=== PATIENT | female | born 1975 | race Caucasian/White ===

== ENCOUNTER 2016-08-23 16:28 | Observation (INO) | payer OTHER ==
[~2016-08-23] VITALS: Ht 172.7 cm; Wt 115.4 kg
[~2016-08-23 16:28] MED LIST: ALBU17AE23; BUDE6HFA IH; CETI10TA17 PO; DCS100C PO; FLUT1DIS26; FRS325T PO; HYDR-3714 PO; IBUP-1773 PO; LABE100T2 PO; LBT200T PO; LEVA15HF2 IH; LEVO5TAB2 PO; LRT10T; LVT.1T PO; MMT17NA NSEACH; MNTL10T; ONDA8TAB6 PO; OXYC500S2 PO; PNT40TEC PO; PREN1TAB39; RIZA10TA23 PO; XOLAIR SQ
[2016-08-23] MEDS ORDERED: NS IV 1000 ML 1,000 ML IV SCH (16:52)
[2016-08-23] MEDS ORDERED: ONDANSETRON 4 MG/2 ML (SDV) Z0FRAN IVP PRN (17:00)
[2016-08-23] MEDS ORDERED: diphenhydrAMINE 50 MG/ML INJ (BENADRYL) IVP PRN (17:00)
[2016-08-23] MEDS ORDERED: PATIENT MAY USE OWN MED,SINGLE MED PO SCH (17:00)
[2016-08-23] MEDS ORDERED: RT-ALBUTEROL SULF 2.5 MG/3 ML PRE-MIX VIAL INH PRN (17:00)
--- OUTSIDE RECORDS SUMMARY | 2016-08-23 17:33 | XMS REPORT | Continuity of Care Document ---
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 If you do not see the information that you expected, contact Release of Information in the Health Information Management department at [phone] for further assistance in locating additional records.[facility] Active Allergies and Adverse Reactions Allergen Noted Date Severity Reactions Comments Aspirin 12/28/2015 Low UNKNOWN Ceftin 12/28/2015 Low UNKNOWN [place] 12/28/2015 Low UNKNOWN Malt Extract 12/28/2015 Low UNKNOWN Morphine 12/28/2015 Low SEE COMMENTS Patient has fast metabolizer and medication is not effective. Soybean 12/28/2015 Low UNKNOWN Wheat 12/28/2015 Low UNKNOWN Zithromax 12/28/2015 Low UNKNOWN Current Medications Prescription Sig. Disp. Refills Start End Date Status Date mometasone (NASONEX) 50 Apply 2 Sprays to each Active mcg/actuation nasal spray nostril as directed daily. levothyroxine (SYNTHROID) Take 100 mcg by mouth Active 100 mcg tablet daily. pseudoephedrine (SUDAFED) Take 60 mg by mouth every Active 60 mg tablet 4 hours as needed for Congestion. Levalbuterol Tartrate Inhale 2 Puffs by mouth Active (XOPENEX HFA) 45 every 4-6 hours as mcg/actuation inhaler needed. pantoprazole DR Take 40 mg by mouth twice Active (PROTONIX) 40 mg tablet daily. montelukast (SINGULAIR) Take 10 mg by mouth at Active 10 mg tablet bedtime daily. Levocetirizine (XYZAL) 5 Take 10 mg by mouth twice Active mg tab daily. ondansetron (ZOFRAN) 8 mg Take 8 mg by mouth every Active tablet 8 hours as needed for Nausea. metFORMIN-XR(+) Take 500 mg by mouth Active (GLUCOPHAGE XR) 500 mg daily with dinner. tablet budesonide/formoterol Inhale 2 Puffs by mouth Active (SYMBICORT) 160/4.5 mcg twice daily. HFAA inhalation rizatriptan (MAXALT) 10 Take 10 mg by mouth daily Active mg tablet as needed. May repeat in 2 hours in needed ibuprofen (MOTRIN) 800 mg Take 800 mg by mouth Active tablet three times daily. sertraline (ZOLOFT) 50 mg Take 50 mg by mouth Active tablet daily. Indications: only take 1/2 a tablet albuterol (VENTOLIN HFA, Inhale 2 Puffs by mouth Active PROAIR HFA) 90 every 6 hours as needed mcg/actuation inhaler for Wheezing. levonorgestrel/ethinyl Take 1 Tab by mouth Active estradiol (AVIANE-28, daily. ALESSE-28) 0.1 mg/20 mcg tablet DIPHENHYDRAMINE HCL Take by mouth as Needed. Active (BENADRYL ALLERGY PO) meloxicam (MOBIC) 15 mg Take 1 Tab by mouth 90 Tab 1 01/08/20 Active tablet daily. 16 Cholecalciferol (Vitamin Take 1 Cap by mouth 90 Cap 1 01/27/20 Active D3) 2,000 unit cap daily. 16 Active Problems No known active problems Social History Tobacco Use Types Packs/Day Years Used Date Never Smoker Smokeless Tobacco: Never Used Alcohol Use Drinks/Week oz/Week Comments No Last Filed Vital Signs Vital Sign Reading Time Taken Blood Pressure 148/85 01/08/2016 8:26 AM CDT Pulse 93 01/08/2016 8:26 AM CDT Temperature 37.3 C (99.2 F) 01/08/2016 8:26 AM CDT Respiratory Rate 18 01/08/2016 8:26 AM CDT Height 1.702 m (5' 7") 01/08/2016 8:26 AM CDT Weight 119.296 kg (263 lb) 01/08/2016 8:26 AM CDT Body Mass Index 41.18 01/08/2016 8:26 AM CDT Oxygen Saturation - - Plan of Care Health Maintenance Due Date Last Done Comments Physical (Comprehensive) 1984 Exam Pertussis Vaccine 1988 Tetanus Vaccine 1994 Cervical Cancer Screening 1998 Influenza Vaccine 03/03/2016 Results from Last 3 Months Not on file
[2016-08-23 17:45] VITALS: BP 152/89
[2016-08-23] MEDS ORDERED: METF1000 PO (18:17)
[2016-08-23] MEDS ORDERED: PANT40TA2 PO (18:17)
[2016-08-23] MEDS ORDERED: MONT10TA21 PO (18:17)
[2016-08-23] MEDS ORDERED: MAGN500T PO (18:17)
[2016-08-23] MEDS ORDERED: CHOL2000 PO (18:17)
[2016-08-23] MEDS ORDERED: SERT50TA2 PO (18:17)
[2016-08-23] MEDS: methylPREDNISolone 125 MG (Solu-MEDROL) VIAL IVP SCH (18:38)
[2016-08-23 19:08] LABS: BASOPHILS % (AUTO) 0 % (0-10); EOSINOPHILS % (AUTO) 0 % (0-10); LYMPHOCYTES # (AUTO) 0.7 X 10^3 (1.0-4.0); LYMPHOCYTES % (AUTO) 6 % (12-44); MEAN CORPUSCULAR HEMOGLOBIN 26 PG (25-34); MEAN CORPUSCULAR HGB CONC 33 G/DL (32-36); MEAN CORPUSCULAR VOLUME 81 FL (80-99); MEAN PLATELET VOLUME 10.1 FL (7.4-10.4); MONOCYTES % (AUTO) 0 % (0-12); NEUTROPHILS # (AUTO) 10.6 X 10^3 (1.8-7.8); NEUTROPHILS % (AUTO) 94 % (42-75); PLATELET COUNT 369 10^3/uL (130-400); RED BLOOD COUNT 5.05 10^6/uL (4.35-5.85); RED CELL DISTRIBUTION WIDTH 16.1 % (10.0-14.5); WHITE BLOOD COUNT 11.3 10^3/uL (4.3-11.0)
[2016-08-23 19:21] LABS: BAND NEUTROPHILS 5 %; BASOPHILS % (MANUAL) 0 %; EOSINOPHILS % (MANUAL) 0 %; LYMPHOCYTES % (MANUAL) 2 %; NEUTROPHILS % (MANUAL) 93 %
[2016-08-23 19:31] LABS: ALANINE AMINOTRANSFERASE 18 U/L (0-55); ALBUMIN 4.1 G/DL (3.2-4.5); ANION GAP 10 MMOL/L (5-14); ASPARTATE AMINO TRANSFERASE 14 U/L (5-34); BILIRUBIN,TOTAL 0.2 MG/DL (0.1-1.0); BLOOD UREA NITROGEN 11 MG/DL (7-18); BUN/CREATININE RATIO 15; CALCIUM 9.5 MG/DL (8.5-10.1); CARBON DIOXIDE 21 MMOL/L (21-32); CHLORIDE 107 MMOL/L (98-107); CREATININE SERUM 0.74 MG/DL (0.60-1.30); GFR ESTIMATED > 60; GLUCOSE 149 MG/DL (70-105); MAGNESIUM 2.8 MG/DL (1.8-2.4); POTASSIUM 4.3 MMOL/L (3.6-5.0); SODIUM 138 MMOL/L (135-145); TOTAL PROTEIN 7.4 G/DL (6.4-8.2)
[2016-08-23 19:55] VITALS: BP 162/89
[2016-08-23 20:01] VITALS: BP 162/89
--- NOTE | 2016-08-23 20:08 | History & Physicial (CHS) ---
HPI History of Present Illness: Patient seen in clinic after accidental ingestion of corn tortilla with history of anaphylactic reaction to corn products in the past. About 45 minutes after lunch, started having itching and tingling in mouth and feeling nauseated. She denied shortness of breath or wheezing or swelling or rash at that time. Exam and vitals were unremarkable and she was given 0.3 mg epinephrine IM and 125 mg solumedrol IM (approximately 1:20 pm) and was monitored in clinic with good improvement in symptoms, however about 1 hour after epinephrine and solumedrol, she started to have coughing and felt like she may be wheezing. Exam again revealed no oropharyngeal swelling and no audible wheezing, second dose of 0.3 mg epinephrine IM given and discussed hospitalization at that time, decided to continue clinic monitoring, and as her coughing and slight wheeze began to recur again about an hour after epinephrine, decision was made to admit for further close monitoring. She also started to note some hives around that time. Source: patient Exam Limitations: no limitations Date seen by provider: Aug 23, 2016 Time seen by provider: 16:00 Attending Physician Sagar Lee MD PCP Sagar Lee MD Consult Date of Admission Aug 23, 2016 at 17:26 Home Medications Home Medications Reviewed patient Home Medication Reconciliation Form Allergies Coded Allergies: aspirin (Unverified Allergy, Mild, 07/02/09) azithromycin (Unverified Allergy, Mild, 07/02/09) cefuroxime (Unverified Allergy, Mild, 07/02/09) [place] (Unverified Allergy, 11/22/12) Dextrose (Unverified Allergy, 11/22/12) Uncoded Allergies: POWDER IN GLOVES (Allergy, 11/22/12) VYN-Bnagpm-Cunvwm Hx Patient Social History Marrital Status: Number of Children: 3 Number of living children: 3 Employed/Student: employed Alcohol Use: Denies Use Recreational Drug Use: No Smoking Status: Never a Smoker Recent Foreign Travel: No Contact w/other who traveled: No Recent Hopitalizations: Yes Recent Infectious Disease Expo: No Physical Abuse Screen: No Sexual Abuse: No Immunizations Up To Date Tetanus Booster (TDap): Less than 5yrs Date of Pneumonia Vaccine: Apr 08, 2013 Date of Influenza Vaccine: Mar 09, 2016 Past Medical History PMHx: Asthma ADHD Depression Family Medical History Significant Family History: Asthma, Hypertension Review of Systems ([facility]) Constitutional: No dizziness, No fever EENTM: No mouth swelling, No nose congestion, No throat swelling Respiratory: coughNo short of breath, wheezing Cardiovascular: no symptoms reported Gastrointestinal: nauseaNo vomiting Genitourinary: no symptoms reported Musculoskeletal: no symptoms reported Skin: rash Psychiatric/Neurological: No Symptoms Reported Reviewed Test Results Reviewed Test Results Lab Laboratory Tests Test 08/23/16 19:00 Range/Units Alanine Aminotransferase (ALT/SGPT) 18 0-55 U/L Albumin 4.1 3.2-4.5 G/DL Alkaline Phosphatase 65 40-136 U/L Anion Gap 10 5-14 MMOL/L Aspartate Amino Transf (AST/SGOT) 14 5-34 U/L BUN/Creatinine Ratio 15 Band Neutrophils 5 % Basophils # (Auto) 0.0 0.0-0.1 10^3/uL Basophils % (Manual) 0 % Basophils (%) (Auto) 0 0-10 % Blood Morphology Comment NORMAL Blood Urea Nitrogen 11 7-18 MG/DL Calcium Level 9.5 8.5-10.1 MG/DL Carbon Dioxide Level 21 21-32 MMOL/L Chloride Level 107 98-107 MMOL/L Creatinine 0.74 0.60-1.30 MG/DL Eosinophils # (Auto) 0.0 0.0-0.3 10^3/uL Eosinophils % (Manual) 0 % Eosinophils (%) (Auto) 0 0-10 % Estimat Glomerular Filtration Rate > 60 Glucose Level 149 H 70-105 MG/DL Hematocrit 41 35-52 % Hemoglobin 13.3 11.5-16.0 G/DL Lymphocytes # (Auto) 0.7 L 1.0-4.0 X 10^3 Lymphocytes % (Manual) 2 % Lymphocytes (%) (Auto) 6 L 12-44 % Magnesium Level 2.8 H 1.8-2.4 MG/DL Mean Corpuscular Hemoglobin 26 25-34 PG Mean Corpuscular Hemoglobin Concent 33 32-36 G/DL Mean Corpuscular Volume 81 80-99 FL Mean Platelet Volume 10.1 7.4-10.4 FL Monocytes # (Auto) 0.0 0.0-1.0 X 10^3 Monocytes % (Manual) 0 % Monocytes (%) (Auto) 0 0-12 % Neutrophils # (Auto) 10.6 H 1.8-7.8 X 10^3 Neutrophils % (Manual) 93 % Neutrophils (%) (Auto) 94 H 42-75 % Platelet Count 369 130-400 10^3/uL Potassium Level 4.3 3.6-5.0 MMOL/L Red Blood Count 5.05 4.35-5.85 10^6/uL Red Cell Distribution Width 16.1 H 10.0-14.5 % Sodium Level 138 135-145 MMOL/L Total Bilirubin 0.2 0.1-1.0 MG/DL Total Protein 7.4 6.4-8.2 G/DL White Blood Count 11.3 H 4.3-11.0 10^3/uL Physical Exam-([facility]) Physical Exam Vital Signs VS - Last 72 Hours, by Label 08/23/16 08/23/16 08/23/16 08/23/16 17:20 17:45 19:00 20:01 Temp 96.3 97.5 Pulse 105 108 102 Resp 20 20 B/P 152/89 162/89 Pulse Ox 95 95 O2 Delivery Nasal Cannula Nasal Cannula Nasal Cannula O2 Flow Rate 2.00 2.00 2.00 Capillary Refill : General Appearance: WD/WN no apparent distress HEENT: pharynx normalNo pharyngeal erythema, No tonsillar exudate, other Respiratory: lungs clear normal breath sounds Cardiovascular: regular rate, rhythm no edemaNo no murmur Neurologic/Psychiatric: alert normal mood/affect Skin: normal color warm/dry rash Assessment/Plan Assessment/Plan Admission Dx 1. Suspected anaphylaxis 2. Asthma Plan 1. Suspected anaphylaxis- stable with no oropharyngeal edema and no hypotension , but with continued symptoms of wheezing and cough in spite of epinephrine x 2 and solumedrol x 1 before admission -Monitor on telemetry -IV solumedrol 125 mg q6 -IV benadryl 25 mg q4 prn -Will repeat epinephrine if needed for hypotension, oropharyngeal swelling 2. Asthma- exacerbated due to allergic reaction -MAT protocol, albuterol q4 prn -Continue home symbicort, can use own meds DVT ppx- SCDs Diagnosis/Problems: Clinical Quality Measures DVT/VTE Risk/Contraindication: Risk Factor Score Per Nursin RFS Level Per Nursing on Admit: 1=Low/No VTE PPX Copy Copies To 1: BRANDY,SAGAR CAMPBELL MD, MD Aug 23, 2016 20:08
[2016-08-23] MEDS ORDERED: RT-SYMBICORT 160/4.5 MCG INHALER PER PUFF IH SCH (21:00)
[2016-08-23] MEDS ORDERED: LEVOCETIRIZINE 5 MG TAB (XYZAL) NON-FORMULARY PO SCH (22:15)
[2016-08-23] MEDS ORDERED: LEVOTHYROXINE 100 MCG (LEVOTHROID) TAB PO SCH (22:15)
[2016-08-23] MEDS: RT-ADVAIR HFA 115/21 MCG PER PUFF IH SCH (22:59)
[2016-08-24] VITALS: BP 173/94
[2016-08-24] MEDS ORDERED: LEVOTHYROXINE 100 MCG (LEVOTHROID) TAB ONE
[2016-08-24] MEDS: methylPREDNISolone 125 MG (Solu-MEDROL) VIAL IVP SCH ×2 (00:03→05:31)
[2016-08-24 04:00] VITALS: BP 125/83
[2016-08-24] MEDS: RT-ADVAIR HFA 115/21 MCG PER PUFF IH SCH (07:49)
[2016-08-24 08:00] VITALS: BP 144/91
[2016-08-24] MEDS ORDERED: MMT17NA NSEACH (08:49)
[2016-08-24] MEDS ORDERED: LEVO100T7 PO (08:49)
[2016-08-24] MEDS ORDERED: BUDE10.2 IH (08:49)
[2016-08-24] MEDS ORDERED: IBUP-1780 PO (08:49)
[2016-08-24] MEDS ORDERED: ALBU90AE IH (08:49)
[2016-08-24] MEDS ORDERED: MONT10TA24 PO (08:49)
[2016-08-24] MEDS ORDERED: LEVO1TAB20 PO (08:49)
[2016-08-24] MEDS ORDERED: METH54TA10 PO (08:49)
[2016-08-24] MEDS ORDERED: METF-479 PO (08:49)
[2016-08-24] MEDS ORDERED: LEVO5TAB12 PO (08:49)
[2016-08-24] MEDS ORDERED: ONDA8TAB13 SL (08:49)
[2016-08-24] MEDS ORDERED: PANT40TA3 PO (08:49)
[2016-08-24] MEDS ORDERED: SERT50TA9 PO (08:49)
[2016-08-24] MEDS ORDERED: LORATADINE (CLARITIN) 10 MG TAB PO SCH (09:00)
[2016-08-24] MEDS ORDERED: MONTELUKAST 10 MG (SINGULAIR) TAB PO SCH (09:00)
[2016-08-24] MEDS ORDERED: PRD10T PO (10:28)
[2016-08-24] MEDS ORDERED: EPIN0.3P3 IJ (10:28)
--- NOTE | 2016-08-24 10:32 | Discharge Summary ---
Diagnosis/Chief Complaint Date of Admission Aug 23, 2016 at 17:26 Date of Discharge Aug 24, 2016 Admission Diagnosis Admission Diagnosis 1. Suspected anaphylaxis 2. Asthma Discharge Diagnosis 1. Anaphylaxis from corn tortilla 2. Asthma Chief Complaint/HPI Chief Complaint/HPI Patient seen in clinic after accidental ingestion of corn tortilla with history of anaphylactic reaction to corn products in the past. About 45 minutes after lunch, started having itching and tingling in mouth and feeling nauseated. She denied shortness of breath or wheezing or swelling or rash at that time. Exam and vitals were unremarkable and she was given 0.3 mg epinephrine IM and 125 mg solumedrol IM (approximately 1:20 pm) and was monitored in clinic with good improvement in symptoms, however about 1 hour after epinephrine and solumedrol, she started to have coughing and felt like she may be wheezing. Exam again revealed no oropharyngeal swelling and no audible wheezing, second dose of 0.3 mg epinephrine IM given and discussed hospitalization at that time, decided to continue clinic monitoring, and as her coughing and slight wheeze began to recur again about an hour after epinephrine, decision was made to admit for further close monitoring. She also started to note some hives around that time. Discharge Summary-OBS Procedures None. Consultations Discharge Physical Examination Allergies: Coded Allergies: aspirin (Unverified Allergy, Mild, 07/02/09) azithromycin (Unverified Allergy, Mild, 07/02/09) cefuroxime (Unverified Allergy, Mild, 07/02/09) [place] (Unverified Allergy, 11/22/12) Dextrose (Unverified Allergy, 11/22/12) Uncoded Allergies: POWDER IN GLOVES (Allergy, 11/22/12) Vitals & I&Os Intake and Output 08/24/16 00:00 Intake Total 690 ml Output Total 1300 ml Balance -610 ml Vital Sign - Last 12Hours Date Time Temp Pulse Resp B/P Pulse Ox O2 Delivery O2 Flow Rate FiO2 08/24/16 08:00 96.3 80 22 144/91 97 Nasal Cannula 2.00 General Appearance: Alert, Oriented X3, Cooperative Respiratory: Clear to Auscultation Cardiovascular: Regular Rate Psych/Mental Status: Mood NL Hospital Course Labs Laboratory Tests 08/23/16 19:00: Alanine Aminotransferase (ALT/SGPT) 18, Albumin 4.1, Alkaline Phosphatase 65, Anion Gap 10, Aspartate Amino Transf (AST/SGOT) 14, BUN/Creatinine Ratio 15, Band Neutrophils 5, Basophils # (Auto) 0.0, Basophils % (Manual) 0, Basophils (% ) (Auto) 0, Blood Morphology Comment NORMAL, Blood Urea Nitrogen 11, Calcium Level 9.5, Carbon Dioxide Level 21, Chloride Level 107, Creatinine 0.74, Eosinophils # (Auto) 0.0, Eosinophils % (Manual) 0, Eosinophils (%) (Auto) 0, Estimat Glomerular Filtration Rate > 60, Glucose Level 149H, Hematocrit 41, Hemoglobin 13.3, Lymphocytes # (Auto) 0.7L, Lymphocytes % (Manual) 2, Lymphocytes (%) (Auto) 6L, Magnesium Level 2.8H, Mean Corpuscular Hemoglobin 26 , Mean Corpuscular Hemoglobin Concent 33, Mean Corpuscular Volume 81, Mean Platelet Volume 10.1, Monocytes # (Auto) 0.0, Monocytes % (Manual) 0, Monocytes (%) (Auto) 0, Neutrophils # (Auto) 10.6H, Neutrophils % (Manual) 93, Neutrophils (%) (Auto) 94H, Platelet Count 369, Potassium Level 4.3, Red Blood Count 5.05, Red Cell Distribution Width 16.1H, Sodium Level 138, Total Bilirubin 0.2, Total Protein 7.4, White Blood Count 11.3H Discharge Instructions to patient/family Please see electonic discharge instructions given to patient. Patient Instructions Goal/Follow Up Appt: Follow-up with Dr. Lee 09/01/16 1:20pm Discharge Medications Reviewed and agree with Discharge Medication list on patient's Discharge Instruction sheet Discharge Medications New, Converted or Re-Newed RX: Transmitted to Pharmacy ([facility]) New Medications: Epinephrine (Epipen 2-Leo) 0.3 Mg/0.3 Ml Auto.injct 0.3 MG IJ ONCE PRN anaphylaxis #1 Ref 3 ML Prednisone (Prednisone) 10 Mg Tab 10 MG PO daily as directed 4 tabs daily x2 days then 3 tabs daily x2 days, then 2 tabs daily x2 days then 1 tab daily x2 days #20 Ref 0 TAB Continued Medications: Albuterol Sulfate (Proair Respiclick) 90 Mcg Aer.pow.ba 1 PUFF IH Q4H PRN SHORTNESS OF BREATH Budesonide/Formoterol Fumarate (Symbicort 160-4.5 Mcg Inhaler) 10.2 Gm Hfa.aer.ad 2 PUFF IH BID Cholecalciferol (Vitamin D3) (Vitamin D) 2,000 Unit Capsule 2000 UNIT PO DAILY CAP Ibuprofen (Ibuprofen) 800 Mg Tablet 800 MG PO Q8H PRN HEADACHE Levocetirizine Dihydrochloride (Levocetirizine Dihydrochloride) 5 Mg Tablet 5 MG PO BID Levonorgestrel-Ethin Estradiol (Lutera-28 Tablet) 1 Each Tablet 1 TAB PO HS Levothyroxine Sodium (Levothyroxine Sodium) 100 Mcg Tablet 100 MCG PO HS Magnesium Oxide (Magnesium Oxide) 500 Mg Tablet 500 MG PO DAILY TAB Metformin HCl (Metformin HCl ER) 1,000 Mg Tab.er.24 1000 MG PO HS Methylphenidate HCl (Methylphenidate ER) 54 Mg Tab.er.24 54 MG PO DAILY Mometasone Furoate (Nasonex) 17 Gm Naspr 1 SPRAY NSEACH BID Montelukast Sodium (Montelukast Sodium) 10 Mg Tablet 10 MG PO HS Ondansetron (Ondansetron Odt) 8 Mg Tab.rapdis 8 MG SL Q6H PRN NAUSEA/VOMITING Pantoprazole Sodium (Pantoprazole Sodium) 40 Mg Tablet.dr 40 MG PO HS Sertraline HCl (Sertraline HCl) 50 Mg Tablet 50 MG PO HS Clinical Quality Measures DVT/VTE Risk/Contraindication: Risk Factor Score Per Nursin RFS Level Per Nursing on Admit: 1=Low/No VTE PPX BALJEET WILKINS DO Aug 24, 2016 10:32
[2016-08-24 11:48] VITALS: BP 144/91
== END 2016-08-24 10:28 | disposition home or self-care (01) ==
LOC: 4TH 17:05 → UNDOADMOB 17:26 → UNDODISOB 08-24 11:00
PROVIDERS: ADMIT Family Medicine; ATTEND Family Medicine
DX: T78.1XXA Other adverse food reactions, not elsewhere classified, initial encounter (principal); R06.2 Wheezing; R05 Cough; J45.901 Unspecified asthma with (acute) exacerbation
CPT/HCPCS: 36415; 80053; 83735; 85007; 85027; 94640; 94760; 99211; G0378

== ENCOUNTER → 2016-12-15 | Outpatient (CLI) | payer OTHER ==
[~2016-12-15] MED LIST changes: +ALBU90AE IH; +BUDE10.2 IH; +CHOL2000 PO; +EPIN0.3P3 IJ; +IBUP-1780 PO; +LEVO100T7 PO; +LEVO1TAB20 PO; +LEVO5TAB12 PO; +MAGN500T PO; +METF-479 PO; +METF1000 PO; +METH54TA10 PO; +MONT10TA21 PO; +MONT10TA24 PO; +ONDA8TAB13 SL; +PANT40TA2 PO; +PANT40TA3 PO; +PRD10T PO; +SERT50TA2 PO; +SERT50TA9 PO
--- NOTE | 2016-12-15 13:55 | Diagnostic Imaging Report ---
EXAMINATION: DEXA scan. INDICATION: Z79.51 TECHNIQUE: Bone mineral density estimated based on dual energy radiography over the lumbar spine and femoral necks, was performed. FINDINGS: The lumbar spine T-score is -0.6. T score over the left femoral neck is 0.4 and over the right side is 0.7. IMPRESSION: Normal bone mineral density. Dictated by: Dictated on workstation # [id number]
== END ==
LOC: RAD 11:30
PROVIDERS: ATTEND Family Medicine
DX: Z13.820 Encounter for screening for osteoporosis (principal); Z79.51 Long term (current) use of inhaled steroids
CPT/HCPCS: 77080

== ENCOUNTER → 2016-12-15 | Outpatient (CLI) | payer OTHER ==
--- NOTE | 2016-12-15 13:12 | Diagnostic Imaging Report ---
PROCEDURE: CT chest without contrast. TECHNIQUE: Multiple contiguous axial images were obtained through the chest without the use of intravenous contrast. INDICATION: Chronic cough. Chest pain. Wheezing. FINDINGS: There is a small to moderate-sized hiatal hernia. There is a small pericardial effusion. The heart size is normal. No pleural effusion. The thoracic aorta is normal in caliber. No significant mediastinal or axillary lymphadenopathy is seen. There is no hilar mass or lymphadenopathy evident abutting the unenhanced hilar vessels. There is focal area of consolidation in the inferior lingula laterally which may relate to consolidation or atelectasis. Mildly dilated bronchioles are seen. No prior studies are available to assess for chronicity. There is groundglass opacity seen in the superior lingula and also in the inferior medial aspect of the right lower lobe which may relate to mild atelectasis or pneumonitis. No lung mass or suspicious nodule. Sections in the upper abdomen and the osseous structures appear grossly unremarkable. IMPRESSION: 1. Small to moderate hiatal hernia. 2. Focal subsegmental consolidation in the inferior lingula with dilated bronchioles. No prior studies to assess for chronicity are available. This may relate to pneumonitis with possible element of scarring. There is also mild groundglass opacity in the superior lingula and posteromedial aspect of the right lower lobe. Consider possibility of atypical or viral pneumonia. 3. Small pericardial effusion. Correlate clinically and with an echocardiogram if needed. Dictated by: Dictated on workstation # [id number]
== END ==
LOC: RAD 11:32
PROVIDERS: ATTEND Family Medicine
DX: K44.9 Diaphragmatic hernia without obstruction or gangrene (principal); I31.3 Pericardial effusion (noninflammatory); R05 Cough
CPT/HCPCS: 71250

== ENCOUNTER → 2016-12-21 | Outpatient (CLI) | payer OTHER | LOC: CARD 11:31 | PROVIDERS: ATTEND Internal Medicine Cardiovascular Disease | DX: R00.2 Palpitations (principal); R07.89 Other chest pain; I31.3 Pericardial effusion (noninflammatory); J45.998 Other asthma | CPT/HCPCS: 93306 ==

== ENCOUNTER → 2017-07-24 | Outpatient (CLI) | payer OTHER | LOC: LAB 08:21 | PROVIDERS: ATTEND Allergy & Immunology Clinical & Laboratory Immunology | DX: B99.9 Unspecified infectious disease (principal) | CPT/HCPCS: 36415 ==

== ENCOUNTER → 2017-12-22 | Outpatient (CLI) | payer OTHER ==
[~2017-12-22] MED LIST changes: -METF1000 PO; +METF10002 PO
--- NOTE | 2017-12-22 13:57 | Diagnostic Imaging Report ---
INDICATION: Routine screening. No prior mammograms are available for comparison. This is a baseline study. TECHNIQUE: 2D and 3D bilateral screening mammography was performed with computer-aided detection (CAD) system. FINDINGS: Both breasts are heterogeneously dense, limiting the sensitivity of mammography. There is an area of slightly nodular increased density in the superior right breast at mid depth, best seen on the MLO view. This is seen on 3D image 44 on the MLO acquisition. No definite correlate on the CC view is seen, and this could be owing to superimposition. Even so, additional views are recommended. The left breast is unremarkable. No suspicious microcalcifications are seen. The axillae are unremarkable. IMPRESSION: Right breast density. Additional views are recommended for further evaluation. ACR BI-RADS Category 0: Incomplete. (Needs additional imaging evaluation). Result letter will be mailed to the patient. Note: At least 10% of breast cancer is not imaged by mammography. Dictated by: Dictated on workstation # [id number]
== END ==
LOC: RAD 07:59
PROVIDERS: ATTEND Obstetrics & Gynecology
DX: Z12.31 Encounter for screening mammogram for malignant neoplasm of breast (principal)
CPT/HCPCS: 77067

== ENCOUNTER → 2018-04-20 | Outpatient (CLI) | payer OTHER ==
[~2018-04-20] MED LIST changes: +METF-399 PO; -METF10002 PO
--- NOTE | 2018-04-20 13:49 | Diagnostic Imaging Report ---
INDICATION: Right breast densities. This study is performed for further evaluation. COMPARISON: Correlation is made with diagnostic mammogram earlier the same day and screening mammogram from 12/22/2017. TECHNIQUE: Sonographic interrogation of the upper-outer right breast was performed. FINDINGS: At the 11 o'clock location of the right breast, 8 cm from the nipple, there are two circumscribed ovoid nodules adjacent to one another. In aggregate, these measure 13 mm x 5 mm x approximately 7 mm. No posterior acoustic enhancement is seen. These may represent small fibroadenomas. No other masses are seen. IMPRESSION: Benign-appearing hypoechoic nodules at the 11 o'clock location of the right breast, 8 cm from the nipple. This likely accounts for the mammographic density. These may represent small fibroadenomas. Followup mammogram and right breast ultrasound are recommended. Patient is due for screening of the left breast in December. Patient could return in October or October for bilateral mammography and right breast ultrasound. ACR BI-RADS Category 3: Probably benign findings. Dictated by: Dictated on workstation # [id number]
--- NOTE | 2018-04-20 19:22 | Diagnostic Imaging Report ---
INDICATION: Right breast density. Patient presents for additional views. Correlation is made with screening study from 12/22/2017. Unilateral right 2-D and 3-D diagnostic mammography was performed including 90-degree lateral views, MLO views as well as spot compression ML views. The current study was also evaluated with a Computer Aided Detection (CAD) system. FINDINGS: Right breast is heterogeneously dense, limiting the sensitivity of mammography. There is some residual nodularity in the upper and slightly outer right breast at mid depth approximately 6-8 cm from the nipple. Further evaluation of this area with ultrasound is recommended. No suspicious calcifications are seen. IMPRESSION: Additional view shows some residual nodularity in the upper-outer right breast. Further evaluation with ultrasound is recommended. ACR BI-RADS Category 0: Incomplete. (Needs additional imaging evaluation). Result letter will be mailed to the patient. Note: At least 10% of breast cancer is not imaged by mammography. Dictated by: Dictated on workstation # [id number]
== END ==
LOC: RAD 12:20
PROVIDERS: ATTEND Obstetrics & Gynecology
DX: N63.11 Unspecified lump in the right breast, upper outer quadrant (principal); R92.2 Inconclusive mammogram

== ENCOUNTER 2018-05-17 05:38 | Outpatient (CLI) | payer OTHER ==
[~2018-05-17] VITALS: Ht 172.7 cm; Wt 108.9 kg
[~2018-05-17 05:38] MED LIST changes: -BUDE180A IH; -FLUT1DIS27 IH; -IOHEXOL 350 MG/ML 150 ML (OMNIPAQUE 350) VIAL IV ONE; -NORE1TAB95 PO; -NORG1TAB33 PO; -NS 250 ML (IVPB) BAG IV ONE; -RECEIVED CONTRAST (Hold Metformin) IV SCH; -TIOT18CA2 IH
[2018-05-17] MEDS ORDERED: NORG1TAB33 PO (10:51)
[2018-05-17] MEDS ORDERED: BUDE180A IH (10:51)
[2018-05-17] MEDS ORDERED: FLUT1DIS27 IH (10:51)
[2018-05-17] MEDS ORDERED: PRD10T PO (10:51)
[2018-05-17] MEDS ORDERED: TIOT18CA2 IH (10:51)
[2018-05-17] MEDS ORDERED: NORE1TAB95 PO (10:53)
== END 2018-05-17 10:54 | disposition home or self-care (01) ==
LOC: PREOP 05:38
PROVIDERS: ATTEND Internal Medicine Critical Care Medicine
DX: Z01.818 Encounter for other preprocedural examination (principal)

== ENCOUNTER → 2018-05-17 | Outpatient (CLI) | payer OTHER ==
[~2018-05-17] MED LIST changes: +BUDE180A IH; +FLUT1DIS27 IH; +IOHEXOL 350 MG/ML 150 ML (OMNIPAQUE 350) VIAL IV ONE; +NORE1TAB95 PO; +NORG1TAB33 PO; +NS 250 ML (IVPB) BAG IV ONE; +RECEIVED CONTRAST (Hold Metformin) IV SCH; +TIOT18CA2 IH
--- NOTE | 2018-05-17 14:11 | Diagnostic Imaging Report ---
PROCEDURE: CT angiography of the chest with contrast. TECHNIQUE: Multiple contiguous axial images were obtained through the chest after uneventful bolus administration of intravenous contrast. 2D reconstructed CTA MIP acquisitions were also performed. INDICATION: Cough and asthma. COMPARISON: Comparison is made with prior CT from 12/15/2016. FINDINGS: No axillary lymphadenopathy is seen. There are some prominent lymph nodes in the mediastinum. Prevascular node appears larger than prior exam measuring 2.3 x 0.9 cm compared with 2.0 x 0.6 cm. Right paratracheal node is 1.5 x 1.7 cm compared with 0.9 x 1.0 cm. There is some mild fullness in the subcarinal region as well which appears more prominent. No definite hilar lymphadenopathy is seen. Evaluation of the pulmonary arterial system does show some filling defects in the right lower lobe segmental and subsegmental branches. No central emboli are seen. No definite left-sided pulmonary emboli are identified. There is a very small pericardial effusion. No pleural effusion is identified. Parenchymal evaluation demonstrates bronchiectasis in the right middle lobe. There is patchy airspace infiltrates in the right middle lobe and lingula as well as some generalized interstitial nodular infiltrates. There are extensive infiltrates in the bilateral lower lobes mixed airspace and interstitial nodular. There appears to be bilateral lower lobe cylindrical bronchiectasis with generalized bronchial wall thickening. A moderate-sized hiatal hernia is noted. Upper abdomen is unremarkable. IMPRESSION: 1. Findings consistent with small pulmonary embolism involving right lower lobe segmental and subsegmental branches. 2. Small pericardial effusion. 3. Extensive bilateral pulmonary infiltrates, mixed airspace and interstitial nodular with some associated bronchiectasis. This is likely on infectious/inflammatory basis. There are enlarged lymph nodes in the mediastinum which have increased since prior CT from December 2016 which are likely reactive. 4. Moderate-sized hiatal hernia. Results were discussed with Dr. Pagan prior to this dictation. Dictated by: Dictated on workstation # [id number]
[2018-05-17 16:09] LABS: BASOPHILS % (AUTO) 0 % (0-10); EOSINOPHILS % (AUTO) 0 % (0-10); HEMATOCRIT 41 % (35-52); HEMOGLOBIN 12.8 G/DL (11.5-16.0); LYMPHOCYTES # (AUTO) 1.7 X 10^3 (1.0-4.0); LYMPHOCYTES % (AUTO) 11 % (12-44); MEAN CORPUSCULAR HEMOGLOBIN 26 PG (25-34); MEAN CORPUSCULAR HGB CONC 32 G/DL (32-36); MEAN CORPUSCULAR VOLUME 81 FL (80-99); MEAN PLATELET VOLUME 9.5 FL (7.4-10.4); MONOCYTES # (AUTO) 0.5 X 10^3 (0.0-1.0); MONOCYTES % (AUTO) 3 % (0-12); NEUTROPHILS % (AUTO) 86 % (42-75); PLATELET COUNT 432 10^3/uL (130-400); RED CELL DISTRIBUTION WIDTH 18.5 % (10.0-14.5); WHITE BLOOD COUNT 16.3 10^3/uL (4.3-11.0)
[2018-05-17 16:35] LABS: FIBRIN DEGRADATION PRODUCTS 1.74 UG/ML (0.00-0.49); PROTHROMBIN TIME PATIENT 12.9 SEC (12.2-14.7)
[2018-05-17 16:39] LABS: ALANINE AMINOTRANSFERASE 15 U/L (0-55); ALBUMIN 4.3 GM/DL (3.2-4.5); ALKALINE PHOSPHATASE 61 U/L (40-136); BILIRUBIN,TOTAL 0.2 MG/DL (0.1-1.0); BUN/CREATININE RATIO 15; CALCIUM 9.6 MG/DL (8.5-10.1); CARBON DIOXIDE 20 MMOL/L (21-32); CHLORIDE 107 MMOL/L (98-107); CREATININE SERUM 0.84 MG/DL (0.60-1.30); GFR ESTIMATED > 60; GLUCOSE 97 MG/DL (70-105); POTASSIUM 4.4 MMOL/L (3.6-5.0); SODIUM 138 MMOL/L (135-145); TOTAL PROTEIN 7.8 GM/DL (6.4-8.2)
[2018-05-17 17:20] LABS: BAND NEUTROPHILS 0 %; BASOPHILS % (MANUAL) 1 %; EOSINOPHILS % (MANUAL) 0 %; ERYTHROCYTE SEDIMENTATION RATE 13 MM/HR (0-20); LYMPHOCYTES % (MANUAL) 14 %; MONOCYTES % (MANUAL) 4 %; NEUTROPHILS % (MANUAL) 80 %; RBC MORPH NORMAL; REACTIVE LYMPHOCYTES 1 %
== END ==
LOC: RAD 12:55
PROVIDERS: ATTEND Nurse Practitioner Family
DX: J45.909 Unspecified asthma, uncomplicated (principal); I31.3 Pericardial effusion (noninflammatory); J47.9 Bronchiectasis, uncomplicated; R59.0 Localized enlarged lymph nodes; K21.9 Gastro-esophageal reflux disease without esophagitis; K44.9 Diaphragmatic hernia without obstruction or gangrene
CPT/HCPCS: 36415; 71275; 80053; 82785; 85007; 85027; 85379; 85610; 85652; 85730; 86003; 86021; 86141; 86606; 86612; 86628; 86635; 86698

== ENCOUNTER → 2018-05-18 | Outpatient (CLI) | payer OTHER ==
[~2018-05-18] MED LIST changes: +BUDE180A IH; +FLUT1DIS27 IH; +NORE1TAB95 PO; +NORG1TAB33 PO; +TIOT18CA2 IH
--- NOTE | 2018-05-18 12:09 | Diagnostic Imaging Report ---
PROCEDURE: US Venous Lower Ext Eric. TECHNIQUE: Multiple real-time grayscale images were obtained over the lower extremities in various projections, bilaterally. Additional duplex Doppler and color Doppler images were also obtained. INDICATION: Pulmonary embolism on recent CT. FINDINGS: There is no evidence of a right or left lower extremity DVT. Both lower extremity deep venous systems show normal compressibility with normal response to augmentation and Valsalva. No fluid collection or mass is seen. IMPRESSION: No evidence of right or left lower extremity DVT. Dictated by: Dictated on workstation # [id number]
== END ==
LOC: RAD 11:10
PROVIDERS: ATTEND Nurse Practitioner Family
DX: I26.99 Other pulmonary embolism without acute cor pulmonale (principal); J45.909 Unspecified asthma, uncomplicated
CPT/HCPCS: 93306; 93970

== ENCOUNTER 2018-06-01 11:13 | Outpatient (CLI) | payer OTHER ==
[2018-06-01] MEDS ORDERED: RT-ALBUTEROL SULF 2.5 MG/3 ML PRE-MIX VIAL INH ONE (11:30)
== END 2018-06-01 12:30 | disposition home or self-care (01) ==
LOC: RT 11:13
PROVIDERS: ATTEND Nurse Practitioner Family
DX: J45.998 Other asthma (principal); G47.9 Sleep disorder, unspecified
CPT/HCPCS: 94060; 94726; 94729

== ENCOUNTER → 2018-06-15 | Outpatient (CLI) | payer OTHER ==
[~2018-06-15] MED LIST changes: +IOHEXOL 350 MG/ML 150 ML (OMNIPAQUE 350) VIAL IV ONE; +NS 100 ML (IVPB) BAG IV ONE; +RECEIVED CONTRAST (Hold Metformin) IV SCH
--- NOTE | 2018-06-15 10:58 | Diagnostic Imaging Report ---
PROCEDURE: CT angiography of the chest with contrast. TECHNIQUE: Multiple contiguous axial images were obtained through the chest after uneventful bolus administration of intravenous contrast. 2D reconstructed CTA MIP acquisitions were also performed. INDICATION: Shortness of breath, followup pulmonary emboli. COMPARISON: CTA chest from 05/17/2018. FINDINGS: Vasculature: No pulmonary emboli. Previously noted right lower lobe pulmonary emboli have completely resolved and there are no features of chronic thromboembolic disease. The pulmonary trunk is not dilated and there are no CT features of right ventricular strain. Thoracic aorta is normal in caliber. No aortic dissection or pseudoaneurysm. Heart and mediastinum: Visualized thyroid is normal. No supraclavicular or axillary lymphadenopathy. A few mildly enlarged mediastinal lymph nodes persist but have decreased in size. For example, prevascular lymph node now measures 2.0 x 0.6 cm (previously 2.3 x 0.9 cm). Right hilar lymphadenopathy has also decreased. No juxtaphrenic lymphadenopathy. The heart is normal in size without pericardial effusion. Moderate-sized hiatal hernia is unchanged. Pleura: No pleural effusion or pneumothorax. Lungs and airway: No endoluminal lesion in the trachea or central bronchi. Marked improvement in multifocal consolidations within lung bases. There do remain areas of centrilobular micronodularity along with bronchiectasis within the lung bases. Scattered groundglass attenuation also persists in the lung bases. Upper abdomen: Allowing for the phase of contrast, no acute abnormality in the upper abdomen is seen. Musculoskeletal: No concerning osseous lesion. IMPRESSION: 1. No acute or chronic pulmonary emboli. Right lower lobe pulmonary emboli have completely resolved. 2. Improvement in multifocal airspace consolidations in the lung bases. Persistent centrilobular micronodules, groundglass attenuation and bronchiectasis may be on the basis of chronic/recurrent aspiration given moderate-sized hiatus hernia. 3. Improving mediastinal and hilar lymphadenopathy which is likely reactive in nature to the above pulmonary pathology. Dictated by: Dictated on workstation # [id number]
== END ==
LOC: RAD 08:53
PROVIDERS: ATTEND Nurse Practitioner Family
DX: J45.909 Unspecified asthma, uncomplicated (principal); I26.99 Other pulmonary embolism without acute cor pulmonale; R91.8 Other nonspecific abnormal finding of lung field; K44.9 Diaphragmatic hernia without obstruction or gangrene; J47.9 Bronchiectasis, uncomplicated; R59.0 Localized enlarged lymph nodes
CPT/HCPCS: 71275

== ENCOUNTER 2018-07-09 06:31 | Outpatient (CLI) | payer OTHER ==
[~2018-07-09] VITALS: Ht 170.2 cm; Wt 107.0 kg
[~2018-07-09 06:31] MED LIST changes: -IOHEXOL 350 MG/ML 150 ML (OMNIPAQUE 350) VIAL IV ONE; -NS 100 ML (IVPB) BAG IV ONE; -RECEIVED CONTRAST (Hold Metformin) IV SCH
[2018-07-09] MEDS ORDERED: APIX5TAB PO (15:07)
== END 2018-07-09 15:09 | disposition home or self-care (01) ==
LOC: PREOP 06:31
PROVIDERS: ATTEND Internal Medicine Critical Care Medicine
DX: Z01.818 Encounter for other preprocedural examination (principal)

== ENCOUNTER 2018-07-18 06:56 | Day surgery (SDC) | payer OTHER ==
[~2018-07-18] VITALS: Ht 170.2 cm; Wt 107.0 kg
[~2018-07-18 06:56] MED LIST changes: +APIX5TAB PO
[2018-07-18] MEDS ORDERED: LIDOCAINE PF 1% 2 ML VIAL (OR ONLY) IJ ONE (06:57)
[2018-07-18] MEDS ORDERED: LIDOCAINE PF 2% 5 ML (XYLOCAINE) VIAL INJ ONE (06:57)
[2018-07-18] MEDS ORDERED: LACTATED RINGERS 1,000 ML IV ONE (07:00)
--- OUTSIDE RECORDS SUMMARY | 2018-07-18 07:01 | XMS REPORT | Clinical Summary ---
Author Author [facility] Organization [facility] Address Unknown Phone Unavailable Care Team Providers Care Buyer Tobacco Head Name Role Phone PCP Unavailable Allergies Not on File Current Medications Not on file Active Problems Not on file Social History Tobacco Use Types Packs/Day Years Used Date Never Assessed Sex Assigned at Date Recorded Not on file Last Filed Vital Signs Not on file Plan of Treatment Not on file Results Not on filefrom Last 3 Months
--- OUTSIDE RECORDS SUMMARY | 2018-07-18 07:01 | XMS REPORT | Encounter Summary ---
Author Author [facility] Organization [facility] Address Unknown Phone Unavailable Care Team Providers Care Hygiene Coordinator Name Role Phone Perry Holder MD Unavailable Karen Lee MD PCP Reason for Visit * Reason Comments Results Outside CTA Chest/Pulmonary notes Encounter Details Care Team Description Date Type Department Sheila Marie APRN-NP [address] [place] [address] Results (Outside CTA Chest/Pulmonary notes) 06/04/2018 Documentation [facility] - Internal [facility] Level 5A [address] [place] [address] Social History Date Tobacco Use Types Packs/Day Years Used Never Smoker Smokeless Tobacco: Never Used Alcohol Use Drinks/Week oz/Week Comments No Sex Assigned at Date Recorded Not on file Industry Job Start Date Occupation Not on file Not on file Not on file Travel End Travel History Travel Start No recent travel history available. as of this encounter Progress Notes * Sheila Marie APRN-NP - 06/04/2018 10:40 AM MANAGER MEDIA Outside records received and summarized below: 05/15/18 - Presented to outside pulmonary office (Julisa Saldana APRN) with complaint of dyspnea with associated cough, fatigue, nasal congestion and wheezing. History of several courses of steroids and worsening of spirometry. Was switched to Symbicort from Advair, provided "PRN prednisone and epi pen", started protonix, and treated with Augmentin x 10 day for concern of secondary infection and possible eosinophilic bronchitis and plan to proceed with bronchoscopy with EBUS. Note of previous use of Xolair but did not tolerate due to palpitations 05/17/18 - Pt presented to Dr. Pagan (pulmonary) with complaints of worsening dyspnea with associated cough, fatigue, nasal congestion and wheezing. CTA showing PE and extensive bilateral pulmonary infiltrates suggestive of infection vs inflammation. Pt was started on Xarelto with plan to treat with Levaquin x 21 ( per discussion with patient's author). Additional lab work-up with ANCA, aspergillus, fungal panel, coags, BLE doppler and echo. Bronch canceled d/t PE and need for anticoagulation. CTA CHEST (05/17/18) - - small PE involving RLLL segmental and subsegmental braches - small pericardial effusion - extensive bilateral pulmonary infiltrates, mixed airspace and interstitial nodularity with some associated bronchiectasis - likely infection vs inflammation - increase in size of mediastinal lymph nodes compared to 12/2016, likely reactive - moderate-sized hiatal hernia Outside imaging in PACS - pt scheduled for follow-up w/ Dr. Perez 07/10/18. GER MEDIA in this encounter Plan of Treatment Not on fileas of this encounter Visit Diagnoses Not on filein this encounter
--- OUTSIDE RECORDS SUMMARY | 2018-07-18 07:01 | XMS REPORT | Clinical Summary ---
Author Author [facility] Organization [facility] Address Unknown Phone Unavailable Care Team Providers Care Therapeutic Sales Specialist Name Role Phone Perry Holder MD Unavailable Karen Lee MD PCP Source Comments Some departments are not documenting in the electronic medical record. If you do not see the information that you expected, contact Release of Information in the Health Information Management department at [phone] for further assistance in locating additional records.[facility] Allergies Comments Active Allergy Reactions Severity Noted Date Bronchospasm as a child, tolerates ibuprofen and naproxen, no history of polyposis Aspirin SHORTNESS OF Medium 12/28/2015 BREATH Bronchospasm Cefuroxime Axetil HIVES, Medium 12/28/2015 SHORTNESS OF BREATH [place] ANAPHYLAXIS High 12/28/2015 History of significant corn allergy Dextrose ANAPHYLAXIS High 11/01/2016 Malt Extract UNKNOWN Low 12/28/2015 Patient has fast metabolizer and medication is not effective. Morphine SEE COMMENTS Low 12/28/2015 Bronchospasm, due to corn in the propellant Beclomethasone SEE COMMENTS Low 07/31/2017 Dipropionate Soy WHEEZING Medium 07/31/2017 Constipation, nasal congestion and rhinorrhea. Tolerates this in small amounts. Wheat RHINORRHEA, Low 12/28/2015 SEE COMMENTS Bronchospasm, in college Azithromycin HIVES, Medium 12/28/2015 SHORTNESS OF BREATH Medications End Date Status Medication Sig Dispensed Refills Start Date Active mometasone (NASONEX) 50 Apply 2 0 mcg/actuation nasal spray Sprays to each nostril as directed daily. Active levothyroxine (SYNTHROID) Take 100 mcg 0 100 mcg tablet by mouth daily. Active pantoprazole DR Take 40 mg by 0 (PROTONIX) 40 mg tablet mouth daily. Active montelukast (SINGULAIR) Take 10 mg by 0 10 mg tablet mouth at bedtime daily. Active Levocetirizine (XYZAL) 5 Take 10 mg by 0 mg tab mouth twice daily. Active ondansetron (ZOFRAN) 8 mg Take 8 mg by 0 tablet mouth every 8 hours as needed for Nausea. Active metFORMIN-XR(+) Take 1,000 mg 0 (GLUCOPHAGE XR) 500 mg by mouth tablet daily with dinner. Active ibuprofen (MOTRIN) 800 mg Take 800 mg 0 tablet by mouth three times daily. Active sertraline (ZOLOFT) 50 mg Take 50 mg by 0 tabletIndications: only mouth daily. take 1/2 a tablet Indications: only take 1/2 a tablet Active albuterol (VENTOLIN HFA, Inhale 2 0 PROAIR HFA) 90 Puffs by mcg/actuation inhaler mouth every 6 hours as needed for Wheezing. Active DIPHENHYDRAMINE HCL Take by 0 (BENADRYL ALLERGY PO) mouth as Needed. Active Cholecalciferol (Vitamin Take 1 Cap by 90 Cap D3) 2,000 unit cap mouth daily. 6 Active ranitidine(+) (ZANTAC) Take 150 mg 0 150 mg tablet by mouth twice daily. Active methylphenidate CR Take 54 mg by 0 (CONCERTA) 54 mg tablet mouth every morning Active Magnesium Oxide 500 mg Take 500 mg 0 cap by mouth daily. Active EPINEPHrine(+) (EPIPEN Inject 0.3 mg 0 2-JOSE ANTONIO) 1 mg/mL injection into the pen (2-Pack) muscle once as needed. Inject 0.3 mg (1 Pen) into thigh if needed for anaphylactic reaction. May repeat in 5-15 minutes if needed. Active tiotropium bromide Inhale 2 1 Inhaler (SPIRIVA RESPIMAT) 2.5 Puffs by 7 mcg/actuation mouth into inhalerIndications: the lungs Uncomplicated severe daily. persistent asthma Active budesonide(+) (PULMICORT Inhale 2 1 Inhaler FLEXHALER) 180 mcg/inh puffs by 8 inhaler mouth into the lungs twice daily. Active budesonide respule(+) Inhale 2 mL 60 mL (PULMICORT) 1 mg/2 mL solution by 8 [facility] nebulizer solution nebulizer as directed twice daily. Active arformoterol (BROVANA) 15 Inhale 2 mL 60 mL 5 mcg/2 mL nebulizer solution by 8 solution nebulizer as directed twice daily. Active albuterol-ipratropium Inhale 3 mL 90 mL 5 (DUO-NEB, DUO-VENT) 0.5 solution by 8 mg-3 mg(2.5 mg base)/3 mL nebulizer as nebulizer solution directed every 6 hours as needed for Wheezing. Active fluticasone/salmeterol Inhale 1 puff 1 Inhaler 11 (ADVAIR DISKUS) 500-50 by mouth into 8 mcg inhalation disk the lungs every 12 hours. Active sodium chloride 3 % Inhale 4 mL 60 vial 11 nebulizer solution by mouth into 8 the lungs twice daily as needed. Active trimethoprim/sulfamethoxa TAKE ONE (1) 12 tablet 3 zole (BACTRIM DS) 160/800 TABLET BY 8 mg tablet MOUTH 3 TIMES WEEKLY Active prednisone (DELTASONE) 10 60 mg daily 150 tablet 0 mg tablet for 5 days, 8 taper by 10 mg every 3 days, then stay on 10 mg Active benralizumab (FASENRA) 30 Inject 30 mg 1 mL 6 mg/mL injection syringe under the 8 skin every 4 weeks for the first 3 doses, followed by every 8 weeks thereafter. Status Hospital, Clinic, or Ordered Dose Route Frequency Start End Date Other Facility Date Administered Medication Active albuterol-ipratropium 3 mL IN RT EVERY 4 HOURS PRN 05/14/20 (DUO-NEB, DUO-VENT) 18 nebulizer solution 3 mLIndications: Uncomplicated severe persistent asthma Active Problems Problem Noted Date Bronchiectasis 10/31/2017 Overview: Minimal lingular, likely due to recurrent infections 07/31/17 - Sweat chloride <10 Patient reported previous alpha 1 antitrypsin level normal and immune evaluation to date has been normal. Seasonal allergies 10/31/2017 Overview: - Genesis - Jessica - Singulair - Nasonex Recurrent infections 06/23/2017 Overview: Pneumonia possibly 5 times: culture + for Pseudomonas, Strep pneumo, and H influenza. History of fundoplication and large hiatal hernia along with allergies. 06/23/18 - IgG/A/M, post-vaccination pneumococcal and tetanus ab levels, neutrophil oxidative burst, lymphocyte enumeration studies, ANCAs/MPO/PR3, MBL function, lymphocyte proliferation studies, CH50, CBC with diff, CMP and this was all normal other than a slightly low CD16/56 of 50 (90-640) 10/31/17 - HiB ab level was protective but she was given a repeat HiB vaccine to see if we can boost her protection, not protected against mumps, protective ab level against measles and Hepatitis B Allergic reaction to food 06/23/2017 Overview: Wheat - nasal congestion, rhinorrhea, and constipation - tolerates in small amounts. [place] - anaphylaxis repeatedly, even with D5 IVFs and being around popcorn. Soy - positive testing but eats soy lecithin and may have had reactions intermittently to exposure. 06/23/17 - IgE was negative to corn and wheat. Patient is unable to be off antihistamines for food challenges. Productive cough 06/23/2017 Overview: 12/2016 CT chest with RLL infiltrates, lingular bronchiectasis 05/2017 Sputum culture: H. Influenzae, AFB reportedly negative 08/2017 Sputum culture: H. influenzae Last Assessment & Plan: Assessment/Plan: - It is concerning that she has had recurrence of H. Influenzae on cultures. She is following up with Dr. Rocha today to discuss further treatment, they had been considering suppressive antibiotics in the past. - Considering her bronchiectasis and feeling that she is unable to get up sputum, we discussed a trial of 3% saline nebulized treatments. We discussed that this can cause bronchospasm, so she should only use this after using albuterol first and with caution. She thinks that this will help significantly. Severe persistent asthma with acute exacerbation 11/01/2016 Overview: PFTNormal PFTs (10/2016) Normal spirometry (07/2017) Inhaler Regimen Patient unable to tolerate HFA products due to corn allergy She feels this only lasts 22 hours Advair 500/50 twice a day Pulmicort 180 2 puffs BID Spiriva 2.5 2 puffs daily Albuterol (ProAir Respiclick) every 4 hours as needed Albuterol/Ipratropium, Arformoterol, Pulmicort nebs to replace above inhalers when unable to get good deposition of inhalers Comorbidity GERD -- Protonix daily, well controlled with current diet, hiatal hernia present Seasonal allergies -- Singulair, Flonase, Levocetirizine, immunotherapy with Dr. Eller since 2007 (helpful) Multiple food allergies resulting in anaphylaxis (corn and now soy) Chemical sensitivity as well and even reacts to white vinegar because of some possible corn contamination. Sleep studies in past negative for LUPILLO Vaccinations Influenza - Fall 2016 Pneumococcal - 2010 Prevnar - 2013 Hib - 10/31/17 since sputum repeatedly positive for H influenzae Exacerbations Last 08/2017, multiple exacerbations since July Sputum 05/2017 and 08/2017 with H. influenzae Imaging 12/15/16 - CT chest revealed ground glass infiltrates and lingular bronchiectasis. Complications Xolair caused palpitations repeatedly with dosing and a holter at that time showed PVCs. Labs 06/23/17 - IgE 38, immune evaluation fairly normal, 0 eosinophils, essentially negative hypersensitivity panel with only slight elevated to penicillium, but no significant exposures 07/31/17 - sweat chloride was negative (<10). L ast Assessment & Plan: Assessment/Plan: - It appears that the patient's asthma exacerbations are being triggered by recurrent infections, considering her multiple positive sputum cultures. We will obtain her microbiology results from her home hospital for further evaluation. We discussed that the dual ICS may be contributing to these recurrent infections. She does not want to decrease her ICS to only one agent at this time, but we may need to consider this in the future. - Peak flows have been running 400-530 of late. - She feels that Breo only lasts for 22 hours, so we will change to Advair to see if the twice daily dosing provides better control. - Continue Pulmicort and Spiriva - Continue albuterol as needed - Discussed changing to nebulized treatments when she does not feel like she is getting adequate deposition of her dry powder inhalers Allergic rhinoconjunctivitis 11/01/2016 Overview: Currently on levocetirizine, Singulair, and Nasonex as well. She is still getting weekly shots with Dr. Eller and has been on them since 2007. She thinks they have helped. Shot 1: DF, DP, cat, Alternaria, Helminothosporium, Epicoccum, ragweed, Berm[place], aspergillus, maple, Cladosporium, dog, Kathi, Fusarium, and Mucor Shot 2: planbtain, marshelder, sycamore, lambsquarter, goldenrod, pigweed, mountain cedar, elm, walnut, cottonwood, pecan, kochia, R thistle, hackberry, and oak. She has large local reactions but no systemic reactions. 06/23/17 - IgE aeroallergen panel was positive only to marck, cat, short/Western ragweed. H/O corticosteroid therapy 11/01/2016 Overview: Recurrent corticosteroid exposure, family history of osteoporosis. Per patient, DEXA summer 2016 was within normal limits. - Continue monitoring and vitamin D therapy. L ast Assessment & Plan: Plan: - Discussed with the patient that she is at higher risk for osteoporosis considering her family history and recurrent need for steroids. She is going to discuss with her PCP whether a bone mineral density scan should be ordered. - We discussed continuing vitamin D therapy, as well as adding calcium (if she can tolerate with her food allergies) Encounters Care Team Description Date Type Specialty Sheila Marie APRN-PARTS COUNTERMAN Results (Outside CTA Chest/Pulmonary notes) 06/04/2018 Documentation Pulmonology 05/17/2018 Hospital Radiology Encounter Elizabeth Fallon 05/15/2018 Documentation Keily Rocha DO Uncomplicated severe persistent asthma (Primary Dx); Severe persistent asthma with acute exacerbation 05/14/2018 Office Visit Allergy,Immunology and Rheumatology Jourdan Rock MD Results; Appointment 05/14/2018 Telephone Pulmonology Elizabeth Fallon 05/11/2018 Documentation Keily Rocha DO Recurrent infections 05/04/2018 Orders Only Allergy,Immunology and Rheumatology Keily Rocha DO Medication Follow-up (Fasenra) 04/17/2018 Telephone Allergy,Immunology and Rheumatology from Last 3 Months Immunizations Name Dates Previously Given Next Due Hib conj vaccine, 3 dose 10/31/2017 (PRP-OMP) IM (PedvaxHIB) Family History Medical History Relation Name Comments Allergic Rhinitis Brother Asthma Brother Osteoporosis Brother Cancer Father Hyperlipidemia Father Hypertension Father Osteoporosis Father Cancer-Breast Maternal Aunt COPD Mother Coronary Artery Disease Mother Diabetes Mother Heart Disease Mother Hyperlipidemia Mother Hypertension Mother Mental Illness Mother Stroke Paternal Grandmother Allergic Rhinitis Sister Depression Sister Multiple sclerosis Sister Asthma Son Relation Name Status Comments Brother Alive Daughter Alive Father Maternal Aunt Mother Alive Paternal Grandmother Sister Alive Sister Alive Son Alive Son Alive Son Social History Date Tobacco Use Types Packs/Day Years Used Never Smoker Smokeless Tobacco: Never Used Alcohol Use Drinks/Week oz/Week Comments No Sex Assigned at Date Recorded Not on file Industry Job Start Date Occupation Not on file Not on file Not on file Travel End Travel History Travel Start No recent travel history available. Last Filed Vital Signs Time Taken Vital Sign Reading 05/14/2018 10:23 AM SOFTLINES SUPERVISOR Blood Pressure 160/99 05/14/2018 10:23 AM SOFTLINES SUPERVISOR Pulse 94 05/14/2018 10:22 AM SOFTLINES SUPERVISOR Temperature 37.1 C (98.7 F) 05/14/2018 10:22 AM SOFTLINES SUPERVISOR Respiratory Rate 19 05/14/2018 10:22 AM SOFTLINES SUPERVISOR Oxygen Saturation 95% - Inhaled Oxygen - Concentration 05/14/2018 10:22 AM SOFTLINES SUPERVISOR Weight 108.9 kg (240 lb) 05/14/2018 10:22 AM SOFTLINES SUPERVISOR Height 170.2 cm (5' 7") 05/14/2018 10:22 AM SOFTLINES SUPERVISOR Body Mass Index 37.59 Plan of Treatment Health Maintenance Due Date Last Done Comments PHYSICAL (COMPREHENSIVE) 1984 EXAM HIV SCREENING 1992 DTAP/TDAP VACCINES (1 - 1995 Tdap) CERVICAL CANCER SCREENING 2007 BREAST CANCER SCREENING 2017 INFLUENZA VACCINE 01/31/2018 05/08/2008 Procedures Comments Procedure Name Priority Date/Time Associated Diagnosis CT CHEST EXTERNAL IMAGING Routine 05/17/2018 Diagnosis unknown 1:10 PM SOFTLINES SUPERVISOR SPIROMETRY Routine 05/14/2018 Uncomplicated severe 10:41 AM SOFTLINES SUPERVISOR persistent asthma from Last 3 Months Results * CT CHEST EXTERNAL IMAGING (05/17/2018 1:10 PM SOFTLINES SUPERVISOR) Narrative Performed At This order has been auto finalized and does not contain a result. from Last 3 Months Insurance Payer Benefit Subscriber ID Type Phone Address Plan / Group GENERIC COMMERCIAL GENERIC xxxxxxxxx COMMERCIAL (OON) Advance Directives Patient has advance care planning documents on file. For more information, please contact: [facility] [address] [place] [address]
--- OUTSIDE RECORDS SUMMARY | 2018-07-18 07:02 | XMS REPORT | Encounter Summary ---
Author Author [facility] Organization [facility] Address Unknown Phone Unavailable Care Team Providers Care Hot Mill Operator Name Role Phone Perry Holder MD Unavailable Karen Lee MD PCP Encounter Details Care Team Description Date Type Department Elizabeth Fallon 05/15/2018 Documentation [facility] [address] [place] [address] Social History Date Tobacco Use Types Packs/Day Years Used Never Smoker Smokeless Tobacco: Never Used Alcohol Use Drinks/Week oz/Week Comments No Sex Assigned at Date Recorded Not on file Industry Job Start Date Occupation Not on file Not on file Not on file Travel End Travel History Travel Start No recent travel history available. as of this encounter Progress Notes * Elizabeth Fallon - 05/15/2018 12:39 PM PANEL GLUER The Prior Authorization for Fasenra was approved for Cathy Benitez from 2017 to 05/14/2019 The patient is mandated to fill at [facility] . Elizabeth Fallon [facility] Patient Advocate Ext [phone] L GLUER in this encounter Plan of Treatment Not on fileas of this encounter Visit Diagnoses Not on filein this encounter
--- OUTSIDE RECORDS SUMMARY | 2018-07-18 07:02 | XMS REPORT | Encounter Summary ---
Author Author [facility] Organization [facility] Address Unknown Phone Unavailable Care Team Providers Care Cash Register Balancer Name Role Phone Prery Holder MD Unavailable Karen Lee MD PCP Encounter Details Care Team Description Date Type Department 05/17/2018 Hospital [facility] Radiology [facility] [address] [place] [address] Social History Date Tobacco Use Types Packs/Day Years Used Never Smoker Smokeless Tobacco: Never Used Alcohol Use Drinks/Week oz/Week Comments No Sex Assigned at Date Recorded Not on file Industry Job Start Date Occupation Not on file Not on file Not on file Travel End Travel History Travel Start No recent travel history available. as of this encounter Medications at Time of Discharge Start Date End Date Medication Sig Dispensed Refills albuterol (VENTOLIN HFA, Inhale 2 0 PROAIR HFA) 90 Puffs by mcg/actuation inhaler mouth every 6 hours as needed for Wheezing. 07/31/2017 albuterol-ipratropium Inhale 3 mL 90 mL 5 (DUO-NEB, DUO-VENT) 0.5 solution by mg-3 mg(2.5 mg base)/3 mL nebulizer as nebulizer solution directed every 6 hours as needed for Wheezing. 07/31/2017 arformoterol (BROVANA) 15 Inhale 2 mL 60 mL 5 mcg/2 mL nebulizer solution by solution nebulizer as directed twice daily. 05/02/2018 benralizumab (FASENRA) 30 Inject 30 mg 1 mL 6 mg/mL injection syringe under the skin every 4 weeks for the first 3 doses, followed by every 8 weeks thereafter. 07/31/2017 budesonide respule(+) Inhale 2 mL 60 mL 5 (PULMICORT) 1 mg/2 mL solution by [facility] nebulizer solution nebulizer as directed twice daily. 07/31/2017 budesonide(+) (PULMICORT Inhale 2 1 Inhaler 11 FLEXHALER) 180 mcg/inh puffs by inhaler mouth into the lungs twice daily. 01/27/2016 Cholecalciferol (Vitamin Take 1 Cap by 90 Cap 1 D3) 2,000 unit cap mouth daily. DIPHENHYDRAMINE HCL Take by 0 (BENADRYL ALLERGY PO) mouth as Needed. EPINEPHrine(+) (EPIPEN Inject 0.3 mg 0 2-JOSE ANTONIO) 1 mg/mL injection into the pen (2-Pack) muscle once as needed. Inject 0.3 mg (1 Pen) into thigh if needed for anaphylactic reaction. May repeat in 5-15 minutes if needed. 10/31/2017 fluticasone/salmeterol Inhale 1 puff 1 Inhaler 11 (ADVAIR DISKUS) 500-50 by mouth into mcg inhalation disk the lungs every 12 hours. ibuprofen (MOTRIN) 800 mg Take 800 mg 0 tablet by mouth three times daily. Levocetirizine (XYZAL) 5 Take 10 mg by 0 mg tab mouth twice daily. levothyroxine (SYNTHROID) Take 100 mcg 0 100 mcg tablet by mouth daily. Magnesium Oxide 500 mg Take 500 mg 0 cap by mouth daily. metFORMIN-XR(+) Take 1,000 mg 0 (GLUCOPHAGE XR) 500 mg by mouth tablet daily with dinner. methylphenidate CR Take 54 mg by 0 (CONCERTA) 54 mg tablet mouth every morning mometasone (NASONEX) 50 Apply 2 0 mcg/actuation nasal spray Sprays to each nostril as directed daily. montelukast (SINGULAIR) Take 10 mg by 0 10 mg tablet mouth at bedtime daily. ondansetron (ZOFRAN) 8 mg Take 8 mg by 0 tablet mouth every 8 hours as needed for Nausea. pantoprazole DR Take 40 mg by 0 (PROTONIX) 40 mg tablet mouth daily. 04/11/2018 prednisone (DELTASONE) 10 60 mg daily 150 tablet 0 mg tablet for 5 days, taper by 10 mg every 3 days, then stay on 10 mg ranitidine(+) (ZANTAC) Take 150 mg 0 150 mg tablet by mouth twice daily. sertraline (ZOLOFT) 50 mg Take 50 mg by 0 tabletIndications: only mouth daily. take 1/2 a tablet Indications: only take 1/2 a tablet 10/31/2017 sodium chloride 3 % Inhale 4 mL 60 vial 11 nebulizer solution by mouth into the lungs twice daily as needed. 11/10/2016 tiotropium bromide Inhale 2 1 Inhaler 11 (SPIRIVA RESPIMAT) 2.5 Puffs by mcg/actuation mouth into inhalerIndications: the lungs Uncomplicated severe daily. persistent asthma 03/13/2018 trimethoprim/sulfamethoxa TAKE ONE (1) 12 tablet 3 zole (BACTRIM DS) 160/800 TABLET BY mg tablet MOUTH 3 TIMES WEEKLY as of this encounter Plan of Treatment Not on fileas of this encounter Procedures Comments Procedure Name Priority Date/Time Associated Diagnosis CT CHEST EXTERNAL IMAGING Routine 05/17/2018 Diagnosis unknown 1:10 PM SURVEY COMPILER in this encounter Results * CT CHEST EXTERNAL IMAGING (05/17/2018 1:10 PM SURVEY COMPILER) Narrative Performed At This order has been auto finalized and does not contain a result. in this encounter Visit Diagnoses Diagnosis Diagnosis unknown Other unknown and unspecified cause of morbidity or mortality in this encounter
--- OUTSIDE RECORDS SUMMARY | 2018-07-18 07:02 | XMS REPORT | Encounter Summary ---
Author Author [facility] Organization [facility] Address Unknown Phone Unavailable Care Team Providers Care Procedure Manager Name Role Phone Perry Holder MD Unavailable Karen Lee MD PCP Reason for Referral * Radiology Services (Routine) Referred By Contact Referred To Contact Status Reason Specialty Diagnoses / Procedures Jourdan Rock MD [address] [facility] [address] [place] [address] New Request Radiology Diagnoses Bronchiectasis without complication (HCC) Chronic cough P rocedures CT CHEST WO CONTRAST Reason for Visit * Reason Comments Results Appointment Encounter Details Care Team Description Date Type Department Jourdan Rock MD [address] [facility] [address] [place], [place] [id number] Results; Appointment 05/14/2018 Telephone [facility] - Internal Medicine [facility] Level 5A [address] [place] [address] Social History Date Tobacco Use Types Packs/Day Years Used Never Smoker Smokeless Tobacco: Never Used Alcohol Use Drinks/Week oz/Week Comments No Sex Assigned at Date Recorded Not on file Industry Job Start Date Occupation Not on file Not on file Not on file Travel End Travel History Travel Start No recent travel history available. as of this encounter Miscellaneous Notes * Telephone Encounter - Yvette Hand RN - 06/05/2018 10:26 AM [employer] SUPERINTENDENT Records received. Forwarded to DELPHINE Mcknight for review. Will have them scanned into chart. Images are in the chart. See Documentation Encounter dated 06/04/18. Yvette Hand RN [employer] SUPERINTENDENT * Telephone Encounter - Rosalba Devi MA, CCC-SLP - 05/30/2018 4:27 PM [employer] SUPERINTENDENT Incoming fax from [facility] Diagnostic Imaging department with ct angio chest w/contrast. Documents scanned and forwarded to Yvette Hand RN. Rosalba Devi MA Routing to Yvette Hand RN. [employer] SUPERINTENDENT * Telephone Encounter - Rosalba Devi MA, CCC-SLP - 05/30/2018 2:49 PM [employer] SUPERINTENDENT Incoming fax from [facility] medical records with all Dr. Pagan office notes. On cover letter, requested myself to call Radiology for images. Called [facility] radiology (T# [phone], F# [phone]) to request CT Chest images be clouded and reports faxed. Images are being clouded and reports faxed to clinic. Incoming fax documents forwarded to Yvette Hand RN. Rosalba Devi MA Routing to Yvette Hand RN. [employer] SUPERINTENDENT * Telephone Encounter - Rosalba Devi MA, CCC-SLP - 05/30/2018 9:31 AM [employer] SUPERINTENDENT No douments have been received. Resending fax request to both hospital and dr office for records. Rosalba Devi MA Routing to Yevtte Hand RN. [employer] SUPERINTENDENT * Telephone Encounter - Rosalba Devi MA, CCC-COIL SHAPER - 05/23/2018 12:06 PM [employer] SUPERINTENDENT Medical Records request sent to [facility] to obtain all office notes from Dr. Jay Pagan and all CT Chest images clouded and reports faxed. Request sent to Dr. Jay Pagan's office to have all office notes, and all CT Chest images clouded and reports faxed. Included message to office that request was also sent to [facility] medical records due to unknown factor of records being accessible through system. [address] T# [phone] F# [phone] Routing to Yvette Hand RN [employer] SUPERINTENDENT * Telephone Encounter - Yvette Hand RN - 05/23/2018 9:04 AM [employer] SUPERINTENDENT Contacted the pt to follow up. She states her insurance is mandating she be seen at [facility] in [place], [place]. She had the CT chest and was found to have a PE. She is currently on treatment for this. She is being seen by Dr. Jay Pagan at [facility]. He has decided to perform a bronchoscopy. Pt is scheduled for repeat CT chest on 06/17/18. She would like us to be aware of her care as she will be changing jobs soon and will be transitioning back to us at that time. Routing to Rosalba Devi MA, CCC-COIL SHAPER to assist with records collection. Yvette Hand RN [employer] SUPERINTENDENT * Telephone Encounter - Yvette Hand RN - 05/21/2018 11:35 AM [employer] SUPERINTENDENT LVM requesting pt to confirm she has been scheduled for CT chest. Dr. Rock can see her on 06/01/18 at 1300. Will await her return call. Yvette Hand RN [employer] SUPERINTENDENT * Telephone Encounter - Yvette Hand RN - 05/14/2018 10:22 AM [employer] SUPERINTENDENT Contacted pt to discuss. Pt was agreeable to imaging and appointment with Dr. Rock. Pt requested we fax orders for CT chest to [facility] in [place], [place]. Done. Will send a Staff Message to [facility] to contact pt to schedule with Dr. Rock after confirming availability. Yvette Hand RN [employer] SUPERINTENDENT * Telephone Encounter - Yvette Hand RN - 05/14/2018 10:20 AM [employer] SUPERINTENDENT ----- Message from Jourdan Rock MD sent at 05/09/2018 1:14 PM [employer] SUPERINTENDENT ----- I can see her late next week ( or Monday) or the week of 05/28. Would like a CT chest w/o contrast at that time. ----- Message ----- From: Keily Rocha DO Sent: 05/04/2018 10:04 PM To: Clarissa Fernanedz RN, MD Margarita Woods, Please let her know that her eosinophil count was 158, which is ever so slightly elevated. Her ESR and CRP are also elevated. I would like to have her consider the Fasenra at this point and also a bronchoscopy. Unfortunately her opal polisher is out on maternity leave. I don 't want her to wait until 07/2018 when she returns. Shweta, do you think you could help me with this patient while Stacy is out? 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 Impressive CRP. Keily Rocha DO [employer] SUPERINTENDENT in this encounter Plan of Treatment Order Schedule Name Priority Associated Diagnoses Expected: 05/14/2018 (Approximate), Expires: 05/14/2019 CT CHEST WO CONTRAST Routine Bronchiectasis without complication (HCC) Chronic cough as of this encounter Visit Diagnoses Diagnosis Bronchiectasis without complication (HCC) - Primary Bronchiectasis without acute exacerbation Chronic cough Cough in this encounter
--- OUTSIDE RECORDS SUMMARY | 2018-07-18 07:02 | XMS REPORT | Encounter Summary ---
Author Author [facility] Organization [facility] Address Unknown Phone Unavailable Care Team Providers Care Heavy Equipment Plumbing Supervisor Name Role Phone Perry Holder MD Unavailable Karen Lee MD PCP Reason for Referral * Consult, Test & Treat (Urgent) Referred By Contact Referred To Contact Status Reason Specialty Diagnoses / Procedures Keily Rocha DO [address] [facility] [address] [place] [address] Jay Pagan, [address] [facility] [address] [place] [address] Closed Specialty Services Pulmonology Diagnoses Required Uncomplicated severe persistent asthma Reason for Visit * Reason Comments Office Visit Follow Up Recurrent Infections Encounter Details Care Team Description Date Type Department Keily Rocha DO [address] [facility] [address] [place] [address] Uncomplicated severe persistent asthma (Primary Dx); Severe persistent asthma with acute exacerbation 05/14/2018 Office Visit [facility] - Internal Medicine [facility] Level [address]A [address] [place] [address] Social History Date Tobacco Use Types Packs/Day Years Used Never Smoker Smokeless Tobacco: Never Used Alcohol Use Drinks/Week oz/Week Comments No Sex Assigned at Date Recorded Not on file Industry Job Start Date Occupation Not on file Not on file Not on file Travel End Travel History Travel Start No recent travel history available. as of this encounter Last Filed Vital Signs Time Taken Vital Sign Reading 05/14/2018 10:23 AM MEAT DRESSER Blood Pressure 160/99 05/14/2018 10:23 AM MEAT DRESSER Pulse 94 05/14/2018 10:22 AM MEAT DRESSER Temperature 37.1 C (98.7 F) 05/14/2018 10:22 AM MEAT DRESSER Respiratory Rate 19 05/14/2018 10:22 AM MEAT DRESSER Oxygen Saturation 95% - Inhaled Oxygen - Concentration 05/14/2018 10:22 AM MEAT DRESSER Weight 108.9 kg (240 lb) 05/14/2018 10:22 AM MEAT DRESSER Height 170.2 cm (5' 7") 05/14/2018 10:22 AM MEAT DRESSER Body Mass Index 37.59 in this encounter Patient Instructions * Patient Instructions* Keily Rocha DO - 05/14/2018 10:00 AM MEAT DRESSER Continue the prednisone 10 mg until you see Latasha. I will have have them fax over the referral today. Continue all other medications. DRESSER in this encounter Progress Notes * Keily Rocha DO - 05/14/2018 10:00 AM MEAT DRESSER Subjective: History of Present Illness Cathy Benitez is a 43 y.o. female with allergic rhinoconjunctivitis, food allergies, bronchiectasis, steroid therapy, chronic cough, recurrent infections , severe persistent asthma, and seasonal allergies who is here today for follow up. At her last visit on 04/11/18, we gave her another prednisone 60 mg taper and asked her to consider a trial of Fasenra. However, we have run into problems getting this started. We asked her to continue her Advair, Pulmicort, Spiriva, and albuterol as needed. She has DuoNeb, arformoterol, and Pulmicort nebs to replace inhalers when able to get good deposition of her inhaler (MDI). She states the prednisone is helpful. She staes that her current insurance is not very good at getting things done at . She would rather see Latasha at this point, due to having a contract with [employer] because of this. She thinks have gotten better as it has started to freeze. She is down to 10 mg of prednisone at this point. She states 2 weeks ago, she was not okay on 30 mg. She is not sure she is going to be able to come down. She is intermittenly products with thick discolored mucous (green/yellow) with at least one coughing episode per day and is still taking her albuterol at least once per day. This weekend, she noted that when she spent all day rounding at , she had worsening symptoms that night. She only spent 90 minutes there yesterday and she did better. She states that their cleaning supplies trigger her upon exposure. She states it has been a couple years since she has seen Dr. Pagan. Her energy level is lower than at the 30 mg or above on the prednisone. She was treated for strep throat last week. Rhinitis Control Assessment Test 1. During the past week, how often did you have nasal congestion? 1) Extremely often 2) Often 3) Sometimes 4) Rarely 5) Never 2. During the past week, how often did you sneeze? 1) Extremely often 2) Often 3) Sometimes 4) Rarely 5) Never 3. During the past week, how often did you have watery eyes? 1) Extremely often 2) Often 3) Sometimes 4) Rarely 5) Never 4. During the past week, to what extent did your nasal or other allergy symptoms interfere with your sleep? 1) All the time 2) A lot 3) Somewhat 4) A little 5) Not at all 5. During the past week, how often did you avoid any activities (for example visiting a house with a dog or cat, gardening) because of your nasal or other allergy symptoms? 1) Extremely often 2) Often 3) Sometimes 4) Rarely 5) Never 6. During the past week, how well were your nasal or other allergy symptoms controlled? 1) Not at all 2) A little 3) Somewhat 4) Very 5) Completely Total Score: 21 A total score of 21 or less may indicate inadequate control of symptoms. Asthma Control Test for people 12 years and older 1. In the past 4 weeks, how much of the time did your asthma keep you from getting as much done at work, school or at home? 1- All of the time 2- Most of the time 3- Some of the time 4- A little of the time 5- None of the time 2. During the past 4 weeks, how often have you had shortness of breath? 1- More than once a day 2- Once a day 3- 3-6 times a week 4- Once or twice a week 5- Not at all 3. During the past 4 weeks, how often did your asthma symptoms (wheezing, coughing, shortness of breath, chest tightness or pain) wake you up at night or earlier than usual in the morning? 1- 4 or more night a week 2- 2-3 nights a week 3- Once a week 4- Once or twice 5- Not at all 4. During the past 4 weeks, how often have you used your rescue inhaler or nebulizer medication (such as albuterol)? 1- 3 or more times per day 2- 1 or 2 times per day 3- 2 or 3 times per week 4- Once a week or less 5- Not at all 5. How would you rate your asthma control during the past 4 weeks? 1- Not controlled at all 2- Poorly controlled 3- Somewhat controlled 4- Well controlled 5- Completely controlled ACT SCORE=12 (A score of 19 or less might suggest that the patient's asthma is not as well controlled as it could be) Review of Systems Constitutional: Positive for fatigue. Respiratory: Positive for cough, chest tightness and wheezing. Allergic/Immunologic: Positive for environmental allergies and food allergies. A 10 point review of systems has been reviewed and the remainder are all negative other than as noted above and as in the HPI. Objective: albuterol (VENTOLIN HFA, PROAIR HFA) 90 mcg/actuation inhaler Inhale 2 Puffs by mouth every 6 hours as needed for Wheezing. albuterol-ipratropium (DUO-NEB, DUO-VENT) 0.5 mg-3 mg(2.5 mg base)/3 mL nebulizer solution Inhale 3 mL solution by nebulizer as directed every 6 hours as needed for Wheezing. arformoterol (BROVANA) 15 mcg/2 mL nebulizer solution Inhale 2 mL solution by nebulizer as directed twice daily. benralizumab (FASENRA) 30 mg/mL injection syringe Inject 30 mg under the skin every 4 weeks for the first 3 doses, followed by every 8 weeks thereafter. budesonide respule(+) (PULMICORT) 1 mg/2 mL nbsp nebulizer solution Inhale 2 mL solution by nebulizer as directed twice daily. budesonide(+) (PULMICORT FLEXHALER) 180 mcg/inh inhaler Inhale 2 puffs by mouth into the lungs twice daily. Cholecalciferol (Vitamin D3) 2,000 unit cap Take 1 Cap by mouth daily. DIPHENHYDRAMINE HCL (BENADRYL ALLERGY PO) Take by mouth as Needed. EPINEPHrine(+) (EPIPEN 2-JOSE ANTONIO) 1 mg/mL injection pen (2-Pack) Inject 0.3 mg into the muscle once as needed. Inject 0.3 mg (1 Pen) into thigh if needed for anaphylactic reaction. May repeat in 5-15 minutes if needed. fluticasone/salmeterol (ADVAIR DISKUS) 500-50 mcg inhalation disk Inhale 1 puff by mouth into the lungs every 12 hours. ibuprofen (MOTRIN) 800 mg tablet Take 800 mg by mouth three times daily. Levocetirizine (XYZAL) 5 mg tab Take 10 mg by mouth twice daily. levothyroxine (SYNTHROID) 100 mcg tablet Take 100 mcg by mouth daily. Magnesium Oxide 500 mg cap Take 500 mg by mouth daily. metFORMIN-XR(+) (GLUCOPHAGE XR) 500 mg tablet Take 1,000 mg by mouth daily with dinner. methylphenidate CR (CONCERTA) 54 mg tablet Take 54 mg by mouth every morning mometasone (NASONEX) 50 mcg/actuation nasal spray Apply 2 Sprays to each nostril as directed daily. montelukast (SINGULAIR) 10 mg tablet Take 10 mg by mouth at bedtime daily. ondansetron (ZOFRAN) 8 mg tablet Take 8 mg by mouth every 8 hours as needed for Nausea. pantoprazole DR (PROTONIX) 40 mg tablet Take 40 mg by mouth daily. prednisone (DELTASONE) 10 mg tablet 60 mg daily for 5 days, taper by 10 mg every 3 days, then stay on 10 mg ranitidine(+) (ZANTAC) 150 mg tablet Take 150 mg by mouth twice daily. sertraline (ZOLOFT) 50 mg tablet Take 50 mg by mouth daily. Indications: only take 1/2 a tablet sodium chloride 3 % nebulizer solution Inhale 4 mL by mouth into the lungs twice daily as needed. tiotropium bromide (SPIRIVA RESPIMAT) 2.5 mcg/actuation inhaler Inhale 2 Puffs by mouth into the lungs daily. trimethoprim/sulfamethoxazole (BACTRIM DS) 160/800 mg tablet TAKE ONE (1) TABLET BY MOUTH 3 TIMES WEEKLY Vitals: 05/14/18 1022 05/14/18 1023 BP: (!) 155/100 (!) 160/99 Pulse: 99 94 Resp: 19 Temp: 37.1 C (98.7 F) TempSrc: Oral SpO2: 95% Weight: 108.9 kg (240 lb) Height: 170.2 cm (67") Body mass index is 37.59 kg/m. Physical Exam Constitutional: She is oriented to person, place, and time. Vital signs are normal. She appears well-developed and well-nourished. HENT: Head: Normocephalic and atraumatic. Right Ear: Tympanic membrane, external ear and ear canal normal. Left Ear: Tympanic membrane, external ear and ear canal normal. Nose: Nose normal. Mouth/Throat: Oropharynx is clear and moist and mucous membranes are normal. No oropharyngeal exudate. Eyes: Conjunctivae are normal. Right eye exhibits no discharge. Left eye exhibits no discharge. No scleral icterus. Cardiovascular: Normal rate, regular rhythm and normal heart sounds. Exam reveals no gallop and no friction rub. No murmur heard. Pulmonary/Chest: Effort normal. No respiratory distress. She has wheezes. She has no rales. She exhibits no tenderness. Neurological: She is alert and oriented to person, place, and time. Skin: Skin is warm and dry. No rash noted. No erythema. Psychiatric: She has a normal mood and affect. Vitals reviewed. Ref. Range 07/31/2017 11:06 05/14/2018 10:41 FVC-Pre Latest Units: L 3.79 2.67 FVC-%Pred-pre Latest Units: % 95 65 FEV1-Pre Latest Units: L 3.22 2.22 FEV1-%Pred-Pre Latest Units: % 99 67 FEV1/FVC-Pre Latest Units: % 85 83 [id number] Latest Units: % 99 72 GFZ1940-%Pred-Pre Latest Units: % 108 65 [id number] Latest Units: L/sec 3.53 2.14 PEF-Pre Latest Units: L/min 419.2 Assessment and Plan: Problem Severe Persistent Asthma With Acute Exacerbation PFTNormal PFTs (10/2016) Normal spirometry (07/2017) Inhaler [...] 07/31/17 - sweat chloride was negative (<10). Still having significant symptoms although better on the steroids. However, her spirometry today is moderately restrictive and her FEV1 is down by 1 L. - I am very concerned she may have more of a lingering undiagnosed infection or even underlying other inflammatory pathology - I do think she would benefit at this point from bronchoscopy, which she preferred to do with Dr. Pagan due to proximity and insurance. - I was able to speak with Dr. Pagan and he requested repeat imaging prior to bronchoscopy and he found a small PE. While I do not have those results, he is starting her on treatment for this and then will eventually proceed with bronchoscopy. - In the interim, we will continue her prednisone 10 mg until she sees Dr. Paagn - Will attempt to start Fasenra for her as well, which she prefers to do with Dr. Pagan's office. RTC in 6 weeks. Thank you for allowing us to participate in the care of this patient. Please feel free to contact us if there are any questions or concerns about the patient. Keily Rocha DO Foreign Language Interpreter Division of Allergy, Immunology, and Rheumatology Department of Medicine and Department of Pediatrics [facility] DRESSER in this encounter Plan of Treatment Date/Time Name Priority Associated Diagnoses 05/14/2018 10:41 AM MEAT DRESSER SPIROMETRY Routine Uncomplicated severe persistent asthma Order Schedule Name Priority Associated Diagnoses Ordered: 05/14/2018 AMB REFERRAL TO PULMONARY Routine Uncomplicated severe persistent asthma as of this encounter Procedures Comments Procedure Name Priority Date/Time Associated Diagnosis SPIROMETRY Routine 05/14/2018 Uncomplicated severe 10:41 AM MEAT DRESSER persistent asthma in this encounter Visit Diagnoses Diagnosis Uncomplicated severe persistent asthma - Primary Severe persistent asthma with acute exacerbation Unspecified asthma, with exacerbation in this encounter
--- OUTSIDE RECORDS SUMMARY | 2018-07-18 07:03 | XMS REPORT | Encounter Summary ---
Author Author [facility] Organization [facility] Address Unknown Phone Unavailable Care Team Providers Care Tarp Repairer Name Role Phone Perry Holder MD Unavailable Karen Lee MD PCP Reason for Visit * Reason Comments Medication Follow-up Fasenra Encounter Details Care Team Description Date Type Department Keily Rocha DO [address] [facility] [address] [place] [address] Medication Follow-up (Fasenra) 04/17/2018 Telephone [facility] Physicians - Internal Medicine Ortho and Medical Pavilion Level 4A [address] [place] [address] Social History Date Tobacco Use [...] encounter Miscellaneous Notes * Telephone Encounter - Fatmata Fernandez RN - 06/14/2018 11:31 AM PLANNING DIRECTOR Per 06-14-18 email from Carisa Ratliff Patsy, "Yes, we have received the medication and she is scheduled to come in tomorrow (06-15-18) for our [facility] Department to administer her medication. Thank you for all your help." NING DIRECTOR * Telephone Encounter - Fatmata Fernandez RN - 06/14/2018 11:17 AM PLANNING DIRECTOR Per 06-11-18 email from Carisa Ratliff: "Cedrick Avila, I have called to schedule a shipment for delivery to the hospital. On the prescription it is not clearified that the patient will be receiving this at a different facility than your office. (part 4 of the Access 360 Enrollment Form). The special handling department is going to have a pharmacist contact you to clarify the shipping address. If you would please call [phone] and add our shipping address to the presciption. "[facility]" Attn: Pharmacy [address] [place] [address] Phone number is listed below Thank you for all your help. Respectfully, Esperanza Blackwood, keyboarding clerk 340B Coordinator / Clinical Support Associate Correctional Probation Officer [place], [email or web address] " Called [facility] at [phone]. Spoke with Maggie pharmacist, and she reports this was delivered to their address on 06-13-18. Email sent to Esperanza letting her know. NING DIRECTOR * Telephone Encounter - Fatmata Fernandez RN - 06/01/2018 11:33 AM PLANNING DIRECTOR Received call from Esperanza and per Esperanza she has received the information I sent. She will let me know if further information is needed. NING DIRECTOR * Telephone Encounter - Fatmata Fernandez RN - 06/01/2018 10:20 AM PLANNING DIRECTOR Called pt [phone]. Provided an update and the information below. Pt reports she is ok moving forward with this. Advised to let me know if she does not hear from the same-day surgery nurses to schedule. Pt verbalized understanding and her questions were answered. Information requested by Esperanza Watson faxed to her at [phone]. NING DIRECTOR * Telephone Encounter - Fatmata Fernandez RN - 05/30/2018 3:30 PM PLANNING DIRECTOR Spoke with Esperanza Blackwood, pharmacy quality facilitator at [facility] (ph. [phone]). Per Esperanza, she will coordinate with the specialty pharmacy for delivery of the Fasenra and their same day surgery nurses will call pt to schedule appointments. She requests that we send: Rx Approval letter Insurance information Pt information including phone and address Fax to [phone] Attn. Esperanza Called pt [phone]. Left VM requesting a return call. Will f/u with pt and send this information to Esperanza. NING DIRECTOR * Telephone Encounter - Fatmata Fernadnez RN - 05/29/2018 3:12 PM PLANNING DIRECTOR Spoke with Dr. Latasha Fuentes's office. He reports they don't give the Fasenra in their office, but they have some patients that do this through the pharmacy in the hospital and he gave this information to the pt. He reports the same day surgery nurses at [facility] give this and coordinate the appointments for the patients and the [facility] pharmacy quality facilitator, Esperanza Blackwood, contacts the specialty pharmacy to schedule shipments. He reports she needs an order and the authorization information. He provides her contact information: Email: He also reports the pt had a pulmonary embolism on the and Dr. Pagan has talked with Dr. Rocha about this. He reports he will email Esperanza. NING DIRECTOR * Telephone Encounter - Fatmata Fernandez RN - 05/29/2018 1:57 PM PLANNING DIRECTOR Received VM from Dr. Latasha Fuentes's office. Returned the call at . Left VM requesting a return call. NING DIRECTOR * Telephone Encounter - Fatmata Fernandez RN - 05/23/2018 8:36 AM PLANNING DIRECTOR Spoke with Dr. Rocha and she gives authorization for Dr. Pagan's office to coordinate delivery and administration for Fasenra. Called Dr. Pagan [phone]. Left VM requesting callback. Called Jay[facility] Stephens [phone]. Spoke with Herlinda, pharmacist, and she reports she will disregard the pre-scheduling arrangements that we had for 05/29. She reports the other doctor's office (Dr. Pagan) can arrange the delivery to their office and she reports we can provide them the doctor's phone # and they can call. Let her know I will f/u with Dr. Pagan's office first. NING DIRECTOR * Telephone Encounter - Fatmata Fernandez RN - 05/22/2018 3:40 PM PLANNING DIRECTOR Called [facility] [phone]. Spoke with Stacy and she reports they received the Rx on the , this is with the [place] special handling team, she provides the ph # for their [place] location: . She transferred the call and I spoke with Kaleigh. We pre-scheduled Fasenra delivery for 05/29. She provides their # for the pt to call to provide consent , . Called pt [phone]. Spoke with pt and provided an update. Pt reports she has Epi-pens. Pt reports she would like to get the injection through Dr. Pagan , surface supervisor in [place], [place], and she reports she talked with them about this; the nurse is Zack. She reports there are several patients on this and the same day surgery nurses give the this. She reports she thinks the deliveries are made to the pharmacy. She provides Dr. Pagan's #, [phone]. Dr. Rocha, could you give authorization for Dr. Pagan's office to coordinate delivery and administration of the Fasenra? NING DIRECTOR * Telephone Encounter - Fatmata Fernandez RN - 05/16/2018 9:58 AM PLANNING DIRECTOR Fax # is incorrect on the [employer] approval letter. [facility] notified. Faxed Rx and approval letter to [facility] [address] (Phone) NING DIRECTOR * Telephone Encounter - Fatmata Fernandez RN - 05/16/2018 8:46 AM PLANNING DIRECTOR Per 05-15-18 email from [place] [facility], "I got the approval for Cathy Laguna . She is however mandated to [facility] if you could send the prescription over there." Per fax dated 05-14-18 from [employer]: Fasenra has been approved for benefit coverage, future claims for this drug must be filled through [facility] Faxed Rx for Fasenra and approval letter to [facility]. NING DIRECTOR * Telephone Encounter - Fatmata Fernandez RN - 05/11/2018 11:55 AM PLANNING DIRECTOR Received and reviewed labwork from [facility]. Some records dated back to 2007 and I could not locate an eosinophil level > 158, which was her absolute eosinophil level on 04-12-[address]. [address] Rocha she has been on steroids so the eosinophil count has been low. Sent email to [place] asking her submit PA. Records placed in scan box. NING DIRECTOR * Addendum Note - Fatmata Fernandez RN - 05/02/2018 11:18 AM CDT Addended by: FATMATA FERNANDEZ on: 05/02/2018 11:18 AM Modules accepted: Orders * Telephone Encounter - Fatmata Fernandez RN - 05/02/2018 10:25 AM CDT Spoke with [place] at specialty pharmacy regarding the Fasenra (ph.[phone]). Let her know [employer] could not obtain benefit details as they are 3rd libertarian. She reports to send the Rx in O2, can also send the paperwork to her at fax # [phone], she will complete the PA, we should let her know when the medication will be needed and we can brick picker at the outpatient pharmacy the day prior to the Fasenra appointments. Rx sent electronically in O2 to pharmacy. Faxed the [employer] Enrollment Form and insurance information to [place]. * Telephone Encounter - Fatmata Fernandez RN - 04/25/2018 8:30 AM CDT Spoke with Jean with [employer]. She reports they faxed the benefit investigation information; she reprots the pt has [employer] and they were unable to obtain benefit details as they are 3rd libertarian, they will only release benefit information to pt or provider. Asked her to re-fax the information. * Telephone Encounter - Fatmata Fernandez RN - 04/17/2018 12:42 PM CDT Access 360 Enrollment Form for Fasenra faxed to [employer] at [phone]. in this encounter Plan of Treatment Not on fileas of this encounter Visit Diagnoses Not on filein this encounter
--- OUTSIDE RECORDS SUMMARY | 2018-07-18 07:03 | XMS REPORT | Encounter Summary ---
Author Author [facility] Organization [facility] Address Unknown Phone Unavailable Care Team Providers Care Inpatient Auditor Name Role Phone Perry Holder MD Unavailable Karen Lee MD PCP Encounter Details Care Team Description Date Type Department Keily Rocha DO [address] [facility] [address] [place] [address] Recurrent infections 05/04/2018 Orders Only [facility] Physicians - Internal Medicine Ortho and Medical Pavilion Level 4A [address] [place] [address] Social History Date Tobacco Use Types Packs/Day Years Used Never Smoker Smokeless Tobacco: Never Used Alcohol Use Drinks/Week oz/Week Comments No Sex Assigned at Date Recorded Not on file Industry Job Start Date Occupation Not on file Not on file Not on file Travel End Travel History Travel Start No recent travel history available. as of this encounter Plan of Treatment Not on fileas of this encounter Procedures Comments Procedure Name Priority Date/Time Associated Diagnosis SED RATE Routine 04/12/2018 Recurrent infections CBC AND DIFF Routine 04/12/2018 Recurrent infections C REACTIVE PROTEIN (CRP) Routine 04/12/2018 Recurrent infections COMPREHENSIVE METABOLIC Routine 04/12/2018 Recurrent infections PANEL in this encounter Results * C REACTIVE PROTEIN (CRP) (04/12/2018) C-Reactive Protein OTHER OUTSIDE LAB Specimen Blood - Blood Narrative Performed At Performing Organization Address City/State[facility] Phone Number OTHER OUT[facility]IDE LAB * SED RATE (04/12/2018) Sed Rate -ESR OTHER OUTSIDE LAB Specimen Blood - Blood Narrative Performed At Performing Organization Address City/State/Zipcode Phone Number OTHER OUTSIDE LAB * CBC AND DIFF (04/12/2018) White Blood Cells OTHER OUTSIDE LAB RBC OTHER OUTSIDE LAB Hemoglobin OTHER OUTSIDE LAB Hematocrit OTHER OUTSIDE LAB MCV OTHER OUTSIDE LAB MCH OTHER OUTSIDE LAB MCHC OTHER OUTSIDE LAB Platelet Count OTHER OUTSIDE LAB MPV OTHER OUTSIDE LAB RDW OTHER OUTSIDE LAB Neutrophils OTHER OUTSIDE LAB Absolute Neutrophil Count OTHER OUTSIDE LAB Lymphocytes OTHER OUTSIDE LAB Absolute Lymph Count OTHER OUTSIDE LAB Monocytes OTHER OUTSIDE LAB Absolute Monocyte Count OTHER OUTSIDE LAB Eosinophil OTHER OUTSIDE LAB Absolute Eosinophil Count OTHER OUTSIDE LAB Basophils OTHER OUTSIDE LAB Absolute Basophil Count OTHER OUTSIDE LAB Atypical Lym OTHER OUTSIDE LAB Metamyelocyte OTHER OUTSIDE LAB Myelocyte OTHER OUTSIDE LAB Promyelocyte OTHER OUTSIDE LAB Blast OTHER OUTSIDE LAB RBC Morph OTHER OUTSIDE LAB WBC Morphology OTHER OUTSIDE LAB Specimen Blood - Blood Narrative Performed At Performing Organization Address City/State/Zipcode Phone Number OTHER OUTSIDE LAB * COMPREHENSIVE METABOLIC PANEL (04/12/2018) Sodium OTHER OUTSIDE LAB Potassium OTHER OUTSIDE LAB Chloride OTHER OUTSIDE LAB CO2 OTHER OUTSIDE LAB Blood Urea Nitrogen OTHER OUTSIDE LAB Creatinine OTHER OUTSIDE LAB Glucose OTHER OUTSIDE LAB Calcium OTHER OUTSIDE LAB Total Protein OTHER OUTSIDE LAB Total Bilirubin OTHER OUTSIDE LAB Albumin OTHER OUTSIDE LAB Alk Phosphatase OTHER OUTSIDE LAB AST (SGOT) OTHER OUTSIDE LAB ALT (SGPT) OTHER OUTSIDE LAB eGFR Non OTHER OUTSIDE LAB eGFR OTHER OUTSIDE LAB Anion Gap OTHER OUTSIDE LAB Specimen Blood - Blood Narrative Performed At Performing Organization Address City/State/Zipcode Phone Number OTHER OUTSIDE LAB in this encounter Visit Diagnoses Diagnosis Recurrent infections Unspecified infectious and parasitic diseases in this encounter
--- OUTSIDE RECORDS SUMMARY | 2018-07-18 07:03 | XMS REPORT | Encounter Summary ---
Author Author [facility] Organization [facility] Address Unknown Phone Unavailable Care Team Providers Care Director Wholesale Name Role Phone Perry Holder MD Unavailable Karen Lee MD PCP Encounter Details Care Team Description Date Type Department [place] [facility] 05/11/2018 Documentation [facility] [address] [place] [address] Social History Date Tobacco Use Types Packs/Day [...] encounter Progress Notes * [place] [facility] - 05/11/2018 3:12 PM ENGINE DYNAMOMETER TESTER The Prior Authorization for Luz Elena was submitted for Cathy Benitez via [employer]. Will continue to follow. [place] [facility] Patient Advocate Ext [phone] NE DYNAMOMETER TESTER in this encounter Plan of Treatment Not on fileas of this encounter Visit Diagnoses Not on filein this encounter
--- OUTSIDE RECORDS SUMMARY | 2018-07-18 07:04 | XMS REPORT ---
Author Author BRANDY SAGAR [facility] Address [address] [place] [address] Care Team Providers Care Cigar Head Puncher Name Role Phone BRANDYTEZ HOYTHANY Unavailable PROBLEMS Type Condition ICD9-CM Code [id number] Code Onset Dates Condition Status SNOMED Code Problem Migraine with aura and without status migrainosus, not intractable G43.109 Active 7075556 Problem PCOS (polycystic ovarian syndrome) E28.2 Active 88895023 Problem Uncomplicated severe persistent asthma J45.50 Active 149863348 Problem Severe persistent asthma with exacerbation J45.51 Active 059192527 Problem Other elevated white blood cell (WBC) count D72.828 Active 282120905 Problem Multiple food allergies Z91.018 Active 533988492 Problem Pure hypercholesterolemia E78.00 Active 883026588 Problem Current chronic use of inhaled steroid Z79.51 Active 568790762 Problem Asthma exacerbation J45.901 Active 959081922 Problem ADD (attention deficit disorder) F90.0 Active 997086985 Problem Allergic rhinitis due to pollen J30.1 Active 91940668 Problem Vitamin D deficiency E55.9 Active 96963314 Problem Major depressive disorder, recurrent episode, mild F33.0 Active 958849881 Problem Acquired hypothyroidism E03.9 Active 363070139 Problem Gastroesophageal reflux disease without esophagitis K21.9 Active 400495432 ALLERGIES No Information ENCOUNTERS Encounter Location Date Diagnosis [facility] [address] [facility] [id number] [address] Jun, Allergic rhinitis due to pollen J30.1 [facility] [address] [address] Jun, Allergic rhinitis due to pollen J30.1 [facility] [address] [id number] [address] May, Allergic rhinitis due to pollen J30.1 [place] [address] [place] [address] 57716- 4820 May, [place] [address] [place] [id number] [place] [address] 27791- 0218 May, Allergic rhinitis due to pollen J30.1 [place] [address] [place] [id number] [place] [address] 78586- 6522 May, Sore throat J02.9 and Strep pharyngitis J02.0 [place] [address] [place] [id number] [place] [address] 05358- 1642 May, Allergic rhinitis due to pollen J30.1 [place] [address] [place] [id number] [place] [address] 78872- 2965 Apr, Encounter for immunization Z23 [place] [address] [place] [id number] [place] [address] 77768- 4433 Apr, Recurrent infections B99.9 [place] [address] [place] [id number] [place] [address] 87842- 8360 Apr, Other elevated white blood cell (WBC) count D72.828 ; ADD ( attention deficit disorder) F90.0 ; Recurrent infections B99.9 and Uncomplicated severe persistent asthma J45.50 [place] [address] [place] [id number] [place] [address] 57857- 7596 Apr, ADD (attention deficit disorder) F90.0 [place] [address] [place] [id number] [place] [address] 74151- 6225 Mar, Allergic rhinitis due to pollen J30.1 [place] [address] [place] [address] 70646- 1828 Mar, Severe persistent asthma with exacerbation J45.51 and Haemophilus infection A49.2 [place] [address] [place] [address] 41257- 9501 Mar, [place] [address] [place] [id number] [place] [address] 95103- 8008 Mar, Multiple food allergies Z91.018 [facility] [id number] [place] [address] 88658- 3156 Jan, Allergic rhinitis due to pollen J30.1 [facility] [id number] [place] [address] 45146- 2896 Jan, [place] [address] [place] [id number] [place] [address] 43841- 4164 Jan, Allergic reaction, initial encounter T78.40XA [facility] [id number] [place] [address] 35578- 8460 Dec, Allergic rhinitis due to pollen J30.1 [place] [address] [place] [id number] [place] [address] 62758- 2219 Dec, [place] [address] [place] [id number] [place] [address] 88861- 6091 Dec, Allergic rhinitis due to pollen J30.1 [place] [address] [place] [id number] [place] [address] 87338- 5354 Dec, ADD (attention deficit disorder) F90.0 [place] [address] [place] [id number] [place] [address] 42412- 2713 Dec, ADD (attention deficit disorder) F90.0 and Uncomplicated severe persistent asthma J45.50 [place] [address] [place] [id number] [place] [address] 70489- 7284 Dec, Allergic rhinitis due to pollen J30.1 [facility] [address] [id number] [place] [address] 34195- 9463 Dec, [place] [address] [place] [id number] [place] [address] 73671- 3662 October, Allergic rhinitis due to pollen J30.1 [facility] [address] [place] [address] 91460- 7336 October, Allergic rhinitis due to pollen J30.1 [facility] [address] [id number] [place] [address] 30424- 0992 Oct, [place] [address] 79596- 0983 Oct, Allergic rhinitis due to pollen J30.1 [place] [address] [place] [id number] [place] [address] 61221- 4966 Oct, [place] [address] 15668- 3732 Oct, Allergic rhinitis due to pollen J30.1 [place] [address] [place] [id number] [place] [address] 50591- 6027 Oct, Severe persistent asthma with exacerbation J45.51 and Pneumonia due to Haemophilus influenzae, unspecified laterality, unspecified part of lung J14 [place] [address] [place] [id number] [place] [address] 79429- 1966 Oct, ADD (attention deficit disorder) F90.0 [place] [address] [place] [id number] [place] [address] 85153- 3594 Aug, Haemophilus influenzae infection A49.2 [place] [address] 16367- 3214 Aug, Cough productive of purulent sputum R05 [place] [address] [place] [id number] [place] [address] 53368- 5441 Aug, [place] [address] [place] [id number] [place] [address] 64196- 3983 Aug, Pulmonary congestion R09.89 [place] [address] [place] [id number] [place] [address] 15399- 0632 Aug, Severe persistent asthma with exacerbation J45.51 ; Hiatal hernia K44.9 and Gastroesophageal reflux disease without esophagitis K21.9 [place] [address] [place] [id number] [place] [address] 06024- 2570 Aug, Other elevated white blood cell (WBC) count D72.828 [place] [address] 78687- 1407 Aug, Uncomplicated severe persistent asthma J45.50 [facility] [address] [place] [id number]- 9612 Aug, Pure hypercholesterolemia E78.00 ; Uncomplicated severe persistent asthma J45.50 and Acquired hypothyroidism E03.9 [facility] [address] 45569- 1214 Aug, Acquired hypothyroidism E03.9 ; Pure hypercholesterolemia E78.00 and Uncomplicated severe persistent asthma J45.50 [place] [address] 673637- 4628 15 Aug, 2017 Allergic rhinitis due to pollen J30.1 [place] [address] 51448- 8590 Aug, Allergic rhinitis due to pollen J30.1 [place] [address] 07044- 7160 Aug, [facility] [address] [place] [id number] Jul, Pharyngitis, unspecified etiology J02.9 and Lymphadenopathy R59.1 [place] [address] 88821- 0748 Jul, ADD (attention deficit disorder) F90.0 [place] [address] 91724- 2192 Jul, Allergic rhinitis due to pollen J30.1 [place] [address] 49355- 4154 Jul, Dental examination Z01.20 [facility] [address] 57625- 6179 Jun, Cough productive of purulent sputum R05 [place] [address] 19606- 2809 Jun, Allergic rhinitis due to pollen J30.1 [place] [address] [place] [address] 01834- 3254 Jun, [place] [address] [place] [id number] [place] [address] 28703- 7505 Jun, Allergic rhinitis due to pollen J30.1 [place] [address] [place] [id number] [place] [address] 05713- 3590 Jun, Allergic rhinitis due to pollen J30.1 [place] [address] [place] [id number] [place] [address] 75795- 6450 May, Allergic rhinitis due to pollen J30.1 [place] [address] [place] [id number] [place] [address] 75875- 6145 May, Pneumonia due to Haemophilus influenzae, unspecified laterality, unspecified part of lung J14 [place] [address] 24800- 8515 May, Allergic rhinitis due to pollen J30.1 [place] [address] [place] [id number] [place] [address] 22049- 3875 May, Other adverse food reactions, not elsewhere classified, initial encounter T78.1XXA and Pneumonia due to Haemophilus influenzae, unspecified laterality, unspecified part of lung J14 [place] [address] [place] [id number] [place] [address] 59792- 5128 May, Pneumonia due to Haemophilus influenzae, unspecified laterality, unspecified part of lung J14 [place] [address] [place] [id number] [place] [address] 35318- 9410 May, Multiple food allergies Z91.018 ; Uncomplicated severe persistent asthma J45.50 ; Cough productive of purulent sputum R05 and Uses central nervous system stimulants F15.90 [place] [address] [place] [id number] [place] [address] 66932- 3327 Apr, Allergic rhinitis due to pollen J30.1 [place] [address] 27377- 0918 Apr, Allergic rhinitis due to pollen J30.1 [place] [address] 27418- 5945 Apr, Allergic rhinitis due to pollen J30.1 [place] [address] 46626- 3971 11 Apr, 2017 ADD (attention deficit disorder) F90.0 [place] [address] 93478- 6349 28 Mar, 2017 Allergic rhinitis due to pollen J30.1 [place] [address] 34861- 7543 21 Mar, 2017 Encounter for immunization Z23 [place] [address] 24452- 6422 19 Mar, 2017 [place] [address] 78681- 3648 14 Mar, 2017 Allergic rhinitis due to pollen J30.1 [place] [address] 34677- 5951 07 Mar, 2017 Allergic rhinitis due to pollen J30.1 [place] [address] 07537- 9681 Jan, Allergic rhinitis due to pollen J30.1 [place] [address] 22636- 5387 Jan, Allergic rhinitis due to pollen J30.1 [place] [address] 89693- 7053 Dec, Uncomplicated severe persistent asthma J45.50 [place] [address] 35503- 1608 Dec, Allergic rhinitis due to pollen J30.1 [place] [address] 69911- 0224 Dec, Allergic rhinitis due to pollen J30.1 [place] [address] [address]- 5535 Dec, Allergic rhinitis due to pollen J30.1 [place] [address] [place] [id number] [place] [address] 13561- 0315 Dec, ADD (attention deficit disorder) F90.0 [place] [address] [place] [id number] [place] [address] 20375- 7842 Dec, Allergic rhinitis due to pollen J30.1 [place] [address] [place] [id number] [place] [address] 26303- 2371 Dec, Visit for TB skin test Z11.1 and Screening for tuberculosis Z11.1 [place] [address] [place] [id number] [place] [address] 54553- 4393 Dec, Uncomplicated severe persistent asthma J45.50 ; Palpitations R00.2 ; Pericardial effusion (noninflammatory) I31.3 and Chest discomfort R07.89 [place] [address] [place] [id number] [place] [address] 89720- 1096 Dec, Allergic rhinitis due to pollen J30.1 [place] [address] [place] [id number] [place] [address] 46825- 3494 Dec, Chronic cough R05 [place] [address] [place] [id number] [place] [address] 72567- 4125 Dec, [place] [address] [place] [id number] [place] [address] 70276- 5806 Dec, Allergic rhinitis due to pollen J30.1 [place] [address] [place] [id number] [place] [address] 51809- 2095 Dec, Allergic rhinitis due to pollen J30.1 [place] [address] [place] [address] 43291- 2209 Dec, Chronic cough R05 [place] [address] [place] [id number] [place] [address] 35675- 4958 October, Allergic rhinitis due to pollen J30.1 [facility] [address] [place] [id number] [place] [address] 90274- 3094 October, Allergic rhinitis due to pollen J30.1 [facility] [address] [place] [id number] [place] [address] 62138- 6226 October, [place] [address] 45476- 7140 October, Asthma exacerbation J45.901 [place] [address] [place] [id number] [place] [address] 60494- 2019 October, Asthma exacerbation J45.901 and Current chronic use of inhaled steroid Z79.51 [place] [address] [place] [id number] [place] [address] 94825- 1681 October, Uncomplicated severe persistent asthma J45.50 [place] [address] [place] [id number] [place] [address] 67313- 2196 October, Allergic rhinitis due to pollen J30.1 [place] [address] [place] [id number] [place] [address] 08161- 5065 Oct, [place] [address] [place] [id number] [place] [address] 32595- 0094 Oct, Asthma exacerbation J45.901 and Sputum production R05 [place] [address] [place] [id number] [place] [address] 28777- 6981 Oct, Asthma exacerbation J45.901 [place] [address] [place] [id number] [place] [address] 66123- 4006 Oct, ADD (attention deficit disorder) F90.0 [place] [address] 82419- 8181 Oct, ADD (attention deficit disorder) F90.0 [place] [address] [place] [id number] [place] [address] 51661- 5555 Aug, Allergic rhinitis due to pollen J30.1 [place] [address] [place] [id number] [place] [address] 24801- 2435 Aug, Atypical pneumonia J18.9 [place] [address] 62393- 3875 Aug, Allergic rhinitis due to pollen J30.1 [place] [address] 77598- 4615 Aug, Acquired hypothyroidism E03.9 [place] [address] 90645- 1168 Aug, Multiple food allergies Z91.018 ; Elevated blood pressure reading R03.0 and Anaphylaxis, subsequent encounter T78.2XXD [place] [address] [place] [id number] Aug, [address] 98053- 9942 Aug, Anaphylaxis, initial encounter T78.2XXA [place] [address] 46584- 6029 Aug, Allergic rhinitis due to pollen J30.1 [place] [address] 85846- 8367 Aug, Dental examination Z01.[address] 58590- 4597 Aug, Allergic rhinitis due to pollen J30.1 [place] [address] 07179- 8801 Aug, Acquired hypothyroidism E03.9 and Pure hypercholesterolemia E78.[address] 24389- 2523 Aug, ADD (attention deficit disorder) F90.0 ; Acquired hypothyroidism E03.9 and Pure hypercholesterolemia E78.00 [place] [address] 64115- 3962 Aug, Asthma exacerbation J45.901 [facility] [id number] [place] [address] 20004- 7686 Jul, Allergic rhinitis due to pollen J30.1 [facility] [address] [place] [address] 63740- 3036 Jul, Allergic rhinitis due to pollen J30.1 [facility] [address] [id number] [place] [address] 56787- 0927 Jul, [place] [address] [place] [id number] [place] [address] 03087- 8947 Jul, Allergic rhinitis due to pollen J30.1 [place] [address] [place] [id number] [place] [address] 38658- 8653 Jul, Other jail (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 and ADD ( attention deficit disorder) F90.0 [place] [address] [place] [id number] [place] [address] 70011- 0560 Jul, 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 project manager (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 and ADD ( attention deficit disorder) F90.0 [place] [address] [place] [id number] [place] [address] 72777- 6425 Jul, [place] [address] [place] [id number] [place] [address] 59661- 1844 Jun, Allergic rhinitis due to pollen J30.1 [facility] [address] [place] [address] 95683- 8251 Jun, Allergic rhinitis due to pollen J30.1 [facility] [address] [place] [address] 13603- 2471 Jun, [place] [address] [place] [id number] [place] [address] 43030- 5705 May, Allergic rhinitis due to pollen J30.1 [place] [address] [place] [address] 40740- 6962 May, Allergic rhinitis due to pollen J30.1 [place] [address] [place] [id number] [place] [address] 56769- 7591 Apr, Allergic rhinitis due to pollen J30.1 [place] [address] [place] [id number] [place] [address] 83727- 9119 Apr, Allergic rhinitis due to pollen J30.1 [place] [address] 80650- 1754 Apr, Encounter for immunization Z23 [place] [address] 89027- 5886 Apr, [place] [address] 52265- 0068 Mar, Allergic rhinitis due to pollen J30.1 [place] [address] [place] [id number] [place] [address] 20586- 0509 Mar, Multiple allergies Z88.9 [place] [address] 19174- 7321 Mar, Candidal vaginitis B37.3 [place] [address] 21961- 5399 Mar, Allergic rhinitis due to pollen J30.1 [place] [address] [place] [id number] [place] [address] 65232- 1857 Jan, Asthma exacerbation J45.901 ; Fatigue, unspecified type R53.83 and Community acquired pneumonia J18.9 [facility] [id number] [place] [address] [id number] Jan, Encounter for dental examination Z01.20 [place] [address] 45312- 2315 Jan, Allergic rhinitis due to pollen J30.1 [place] [address] [place] [id number] [place] [address] 46915- 4879 Dec, Allergic rhinitis due to pollen J30.1 [place] [address] [facility] [id number] [address]- 0232 Dec, [facility] [address] [facility] [id number] [address]- 3516 Dec, Allergic rhinitis due to pollen J30.1 [facility] [address] [facility] [id number] [address]- 1457 Dec, [facility] [address] [facility] [id number] [address]- 6333 Dec, [facility] [address] [facility] [id number] [address]- 2722 Dec, [facility] [address] [facility] [id number] [address]- 0770 Dec, Allergic rhinitis due to pollen J30.1 [facility] [address] [address]- 6244 Dec, [facility] [address] [id number] [address]- 7397 Dec, [facility] [address] [address]- 1358 Dec, Allergic rhinitis due to pollen J30.1 [facility] [address] [id number] [address]- 1055 October, Allergic rhinitis due to pollen J30.1 [facility] [id number] [address]- 3693 October, Allergic rhinitis due to pollen J30.1 [facility] [address] [facility] [id number] [address]- 0430 October, [facility] [id number] [address]- 6140 October, [facility] [address] [id number] [address]- 6719 October, ADD (attention deficit disorder) F90.0 ; Major depressive disorder, recurrent episode, mild F33.0 and Uncomplicated severe persistent asthma J45.50 [place] [address] [place] [id number] [place] [address] 20803- 1018 Oct, Allergic rhinitis due to pollen J30.1 [place] [address] [id number] [place] [address] 64924- 7594 14 Oct, 2015 ADD (attention deficit disorder) F90.0 [place] [address] 43652- 3214 06 Oct, 2015 Allergic rhinitis due to pollen 477.0 [place] [address] 22710- 2860 Aug, Allergic rhinitis due to pollen 477.0 [place] [address] 67183- 5923 Aug, 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 [place] [address] 20331- 4031 Aug, [place] [address] [place] [id number] [place] [address] 89039- 3629 Aug, Allergic rhinitis due to pollen 477.0 [place] [address] [place] [id number] [place] [address] 95838- 0773 Aug, Allergic rhinitis due to pollen 477.0 [place] [address] [id number] [place] [address] 64210- 1719 Aug, Allergic rhinitis due to pollen 477.0 [place] [address] [place] [id number] [place] [address] 49199- 1379 Aug, Exposure to influenza Z20.828 [facility] [id number] [place] [address] [id number] Aug, Encounter for dental examination and cleaning without abnormal findings Z01.20 [facility] [id number] [place] [address] 37616- 0308 18 Aug, 2015 Allergic rhinitis due to pollen J30.1 [place] [address] [place] [id number] [place] [address] 50767- 6554 Aug, [place] [address] [place] [id number] [place] [address] 98972- 9076 Aug, 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 [place] [address] [place] [id number] [place] [address] 15115- 3981 Jul, [place] [address] [place] [id number] [place] [address] 88115- 0458 Jul, Allergic rhinitis due to pollen 477.0 [place] [address] 54280- 5318 Jul, [place] [address] 43990- 1181 Jul, Allergic rhinitis due to pollen 477.0 [place] [address] 35720- 7013 Jun, ADD (attention deficit disorder) F90.0 ; Acquired hypothyroidism E03.9 ; PCOS (polycystic ovarian syndrome) E28.2 ; Polyarthralgia M25.50 and On stimulant medication Z79.899 [place] [address] [id number] [place] [address] 83105- 0189 Apr, Encounter for immunization Z23 [place] [address] [address] 16 Mar, 2015 Allergic rhinitis due to pollen 477.0 [place] [address] [address] [place] [id number] [place] [id number] 14 Mar, 2015 Influenza vaccine administered V04.81 [place] [address] [address] 03 Mar, 2015 [place] [address] [address] [place] [id number] [place] [address] Jan, Allergic rhinitis due to pollen 477.0 [place] [address] [facility] [id number] [address] Jan, Allergic rhinitis due to pollen 477.0 [facility] [id number] [address] Jan, Allergic rhinitis due to pollen 477.0 [facility] [id number] [id number] Jan, Dental examination V72.2 [facility] [address] [place] [id number] [place] [address] Dec, Allergic rhinitis due to pollen 477.0 [facility] [id number] [place] [address]- [address] October, [facility] [id number] [place] [address] Oct, [facility] [address] [place] [id number] [place] [address]- [address] Oct, [facility] [id number] [address] Aug, [facility] [address] [id number] [address] Aug, [facility] [id number] [address] Aug, [facility] [id number] [address] Aug, [facility] [id number] [address] Aug, [facility] [id number] [address] Aug, [facility] [id number] [address] Aug, [facility] [address] [address] Aug, [facility] [place] [facility] [address] [id number] [place] [address] Jul, [facility] [place] [facility] [address] [id number] [place] [address]- 2904 Jul, [facility] [place] [facility] [address] [id number] [place] [address]- 7528 Jul, [facility] [place] [facility] [address] [id number] [place] [address]- 1733 Jul, [facility] [place] [facility] [address] [id number] [place] [address]- 8952 Jul, [facility] [place] [facility] [address] [id number] [place] [address]- 4[address] Jul, [facility] [place] [facility] [address] [id number] [place] [address]- 4422 Jul, [facility] [place] [facility] [address] [id number] [place] [address]- 5564 Jul, [facility] [place] [facility] [address] [id number] [place] [address]- 7868 Jul, [facility] [place] [facility] [address] [id number] [place] [address]- 7223 Jul, [facility] [place] [facility] [address] [id number] [place] [address]- 3340 Jul, [facility] [place] [facility] [address] [id number] [place] [address]- 9032 Jun, [facility] [place] [facility] [address] [id number] [place] [address]- 0652 Jun, [facility] [place] [facility] [address] [id number] [place] [address]- 5783 Jun, [facility] [place] [facility] [address] [id number] [place] [address]- 9838 Jun, [facility] [place] [facility] [address] [id number] [place] [address]- 0463 Jun, [facility] [place] [facility] [address] [id number] [place] [address]- 3999 Jun, [facility] [place] [facility] [address] [id number] [place] [address]- 2466 May, [facility] [place] [facility] [address] [id number] [place] [address]- 1370 May, [facility] [place] [facility] [address] [id number] [place] [address]- 1732 May, [facility] [place] [facility] [address] [id number] [place] [address]- 0703 May, [facility] [place] [facility] [address] [id number] [place] [address]- 3529 May, [facility] [place] [facility] [address] [id number] [place] [address]- 2286 May, [facility] [place] [facility] [address] [id number] [place] [address]- 7177 Apr, [facility] [place] [facility] [address] [id number] [place] [address]- 7161 Apr, [facility] [place] [facility] [address] [id number] [place] [address]- 7379 30 Mar, 2014 [facility] [place] [facility] [address] [id number] [place] [address]- 6703 30 Mar, 2013 [facility] [place] [facility] [address] [id number] [place] [address]- 2544 30 Mar, 2013 [facility] [place] [facility] [address] [id number] [place] [address]- 6101 30 Mar, 2013 [facility] [place] [facility] [address] [id number] [place] [address]- 9396 19 Mar, 2014 [facility] [place] [facility] [address] [id number] [place] [address]- 3579 Mar, [facility] [place] [facility] [address] [id number] [place] [address]- 9104 Jan, [facility] [place] [facility] [address] [id number] [place] [address]- 5401 Jan, [facility] [place] [facility] [address] [id number] [place] [address]- 6855 Jan, [facility] [place] [facility] [address] [id number] [place] [address]- 9652 Jan, [facility] [place] [facility] [address] [id number] [place] [address]- 0353 Jan, [facility] [place] [facility] [address] [id number] [place] [address]- 4046 Jan, [facility] [place] [facility] [address] [id number] [place] [address]- 6264 Dec, [facility] [place] [facility] [address] [id number] [place] [address]- 4803 Dec, [facility] [place] [facility] [address] [id number] [place] [address]- 4132 Dec, [facility] [place] [facility] [address] [id number] [place] [address]- 8022 Dec, [facility] [place] [facility] [address] [id number] [place] [address]- 6570 Dec, [facility] [place] [facility] [address] [id number] [place] [address]- 9640 Dec, [facility] [place] [facility] [address] [id number] [place] [address]- 6600 Dec, [facility] [place] [facility] [address] [id number] [place] [address]- 3879 Dec, [facility] [place] [facility] [address] [id number] [place] [address]- 1356 Dec, [facility] [place] [facility] [address] [id number] [place] [address]- 3477 Dec, [facility] [place] [facility] [address] [id number] [place] [address]- 8484 Dec, [facility] [place] [facility] [address] [id number] [place] [address]- 6485 Dec, [facility] [place] [facility] [address] [id number] [place] [address]- 0769 Dec, [facility] [place] [facility] [address] [id number] [place] [address]- 2691 Dec, [facility] [place] [facility] [address] [id number] [place] [address]- 9506 Dec, [facility] [place] [facility] [address] [id number] [place] [address]- 1921 Dec, [facility] [place] [facility] [address] [id number] [place] [address]- 1374 October, [facility] [place] [facility] [address] [id number] [place] [address]- 2476 October, [facility] [place] [facility] [address] [id number] [place] [address]- 7633 October, [facility] [place] [facility] [address] [id number] [place] [address]- 5815 October, [facility] [place] [facility] [address] [id number] [place] [address]- 6105 October, [facility] [place] [facility] [address] [id number] [place] [address]- 7504 October, [facility] [place] [facility] [address] [id number] [place] [address]- 2258 Oct, [facility] [place] [facility] [address] [id number] [place] [address]- 5669 Oct, [facility] [place] [facility] [address] [id number] [place] [address]- 2566 Oct, [facility] [place] [facility] [address] [id number] [place] [address]- 2969 17 Oct, 2013 [facility] [place] [facility] [address] [id number] [place] [address]- 6927 Oct, [facility] [place] [facility] [address] [id number] [place] [address]- 9308 Oct, [facility] [place] [facility] [address] [id number] [place] [address]- 1427 Aug, [facility] [place] [facility] [address] [id number] [place] [address]- 1343 Aug, [facility] [place] [facility] [address] [id number] [place] [address]- 5272 Aug, [facility] [place] [facility] [address] [id number] [place] [address]- 8013 Aug, [facility] [place] [facility] [address] [id number] [place] [address]- 0223 Jul, [facility] [place] [facility] [address] [id number] [place] [address]- 8646 Jul, [facility] [place] [facility] [address] [id number] [place] [address]- 2930 Jul, [facility] [place] [facility] [address] [id number] [place] [address]- 0355 Jul, [facility] [place] [facility] [address] [id number] [place] [address]- 9712 Jun, [facility] [place] [facility] [address] [id number] [place] [address]- 8172 Jun, [facility] [place] [facility] [address] [id number] [place] [address]- 1708 Jun, [facility] [place] [facility] [address] [id number] [place] [address]- 0051 Jun, [facility] [place] [facility] [address] [id number] [address]- 4276 Jun, [facility] [place] [facility] [address] [id number] [place] [address] Jun, [facility] [place] [facility] [address] [id number] [place] [address]- 3468 Jun, [facility] [place] [facility] [address] [facility] [id number] [place] [address]- 8372 Jun, [facility] [place] [facility] [address] [id number] [address]- 9916 Jun, [facility] [place] [facility] [address] [id number] [place] [address]- 3938 Jun, [facility] [place] [facility] [address] [id number] [place] [address]- 2737 Jun, [facility] [place] [facility] [address] [id number], [place] [address]- 2039 May, [facility] [place] [facility] [address] [id number], [place] [address]- 5189 May, [facility] [place] [facility] [address] [id number] [address]- 1361 May, [facility] [place] [facility] [address] [id number] [address]- 1174 May, [facility] [place] [facility] [address] [id number] [address]- 8882 May, [facility] [place] [facility] [address] [id number], [place] [address]- 4906 May, [facility] [place] [facility] [address] [id number] [address]- 3436 May, [facility] [place] [facility] [address] [facility] [id number] [address]- 2590 Apr, [facility] [place] [facility] [address] [id number], [place] [address]- 2730 Apr, [facility] [place] [facility] [address] [id number] [place] [address]- 2070 18 Apr, 2013 [facility] [address] [id number] [place] [address]- 7013 Apr, [facility] [address] [id number] [place] [address] 2546 27 Mar, 2013 [facility] [address] [id number] [place] [address]- 1316 Mar, 2012 [facility] [address] [id number] [place] [address] 2544 Mar, [facility] [address] [id number] [place] [address]- 9967 Mar, [facility] [address] [id number] [place] [address]- 3449 Mar, [facility] [address] [id number] [place] [address]- 0807 Mar, [facility] [address] [id number] [place] [address]- 8018 Jan, [facility] [address] [id number] [place] [address]- 5189 Jan, [facility] [address] [id number] [place] [address]- 8937 Jan, [facility] [place] [facility] [address] [id number] [place] [address] 254 Jan, [facility] [address] [id number] [place] [address]- 2548 Jan, [facility] [place] [facility] [address] [id number] [place] [address]- 8835 Dec, [facility] [place] [facility] [address] [id number] [place] [address] 2541 Dec, [facility] [place] [facility] [address] [id number] [place] [address]- 6136 Dec, [facility] [address] [id number] [place] [address]- 3434 Dec, [facility] [place] [facility] [address] [id number] [place] [address]- 9221 Dec, [facility] [place] [facility] [address] [id number] [place] [address]- 3715 Dec, [facility] [place] [facility] [address] [id number] [place] [address]- 1023 Dec, [facility] [address] [id number] [place] [address]- 5400 Dec, [facility] [place] [facility] [address] [id number] [place] [address]- 5647 October, [facility] [address] [id number] [place] [address]- 0069 October, [facility] [address] [id number] [place] [address]- 6232 October, [facility] [place] [facility] [address] [id number] [place] [address]- 5065 Oct, [facility] [place] [facility] [address] [id number] [place] [address]- 9054 Oct, [facility] [place] [facility] [address] [id number] [place] [address]- 7321 Oct, [facility] [place] [facility] [address] [id number] [address]- 7367 Oct, [facility] [place] [facility] [address] [id number] [place] [address]- 8616 Aug, [facility] [place] [facility] [address] [id number] [place] [address]- 2636 Aug, [facility] [place] [facility] [address] [id number], [place] [address]- 0696 05 Aug, 2012 [facility] [place] [facility] [address] [id number], [place] [address]- 5195 Jul, [facility] [place] [facility] [address] [id number] [place] [address]- 8107 May, [facility] [place] [facility] [address] [id number] [place] [address]- 4295 May, [facility] [place] [facility] [address] [facility] [id number] [place] [address]- 0301 Apr, [facility] [place] [facility] [address] [id number] [place] [address]- 6451 Apr, [facility] [place] [facility] [address] [id number] [place] [address]- 0799 Apr, [facility] [place] [facility] [address] [id number] [place] [address]- 8646 Apr, [facility] [place] [facility] [address] [facility] [id number] [place] [address]- 7466 Apr, [facility] [place] [facility] [address] [id number] [place] [address]- 7868 Apr, [facility] [place] [facility] [address] [facility] [id number] [place] [address]- 0783 Apr, [facility] [place] [facility] [address] [facility] [id number] [place] [address]- 0959 Apr, [facility] [place] [facility] [address] [facility] [id number], [place] [address]- 1681 Apr, [facility] [place] [facility] [address] [facility] [id number], [place] [address]- 8193 Apr, [facility] [place] [facility] [address] [id number] [place] [address]- 3908 14 Apr, 2012 [facility] [place] [facility] [address] [facility] [id number], [place] [address]- 3845 Apr, [facility] [place] [facility] [address] [facility] [id number] [place] [address]- 2832 17 Mar, 2012 [facility] [place] [facility] [address] [id number] [place] [address]- 5649 Jan, [facility] [place] [facility] [address] [id number] [place] [address]- 5386 Dec, [facility] [place] [facility] [address] [id number] [place] [address]- 0817 October, [facility] [place] [facility] [address] [id number] [place] [address]- 8516 Oct, [facility] [place] [facility] [address] [id number] [place] [address]- 7284 Oct, [facility] [place] [facility] [address] [id number] [place] [address]- 3153 Oct, [facility] [place] [facility] [address] [id number] [place] [address]- 0396 Aug, [facility] [place] [facility] [address] [id number] [place] [address]- 5809 Aug, [facility] [place] [facility] [address] [id number] [place] [address]- 8181 Aug, [facility] [place] [facility] [address] [id number] [place] [address]- 4761 Aug, [facility] [place] [facility] [address] [id number] [place] [address]- 8793 Aug, [facility] [place] [facility] [address] [id number] [place] [address]- 2086 Aug, [facility] [place] [facility] [address] [id number] [place] 7624 Jun, [facility] [place] [facility] [address] [id number] [place] [address]- 8057 Apr, [facility] [place] [facility] [address] [id number] [place] [address]- 8954 Jun, [facility] [place] [facility] [address] [id number], [place] [address]- 6926 Jun, [facility] [address] [facility] [id number] [place] [address]- 5706 May, [facility] [address] [facility] [id number], [place] [address]- 0346 May, [facility] [address] [facility] [id number] [place] [address]- 6954 Apr, [facility] [address] [facility] [id number], [place] [address]- 1056 Apr, IMMUNIZATIONS No Known Immunizations SOCIAL HISTORY Never Assessed REASON FOR VISIT Allergy injection(s) patricia keith PLAN OF CARE VITAL SIGNS MEDICATIONS Unknown Medications RESULTS No Results PROCEDURES Procedure Date Ordered Result Body Site IMMUNOTHERAPY INJECTIONS Jun 22, 2018 INSTRUCTIONS MEDICATIONS ADMINISTERED No Known Medications MEDICAL (GENERAL) HISTORY Type Description Date Medical History Hypothyroid Medical History Asthma Medical History Migraine Headaches Medical History Depression Medical History ADHD Medical History GERD Medical History Allergic Rhinitis Medical History PCOS Surgical History Left wrist plate 2002 Surgical History 2004 Surgical History 2010 Surgical History EGD 2012 Surgical History Hiatal Hernia Repair and Fundoplication 2013 Surgical History 2014 Surgical History Wound Dehisance 2014 Hospitalization History see above surgeries Hospitalization History [facility]aphylactic shock-[facility] 08/23/16
--- OUTSIDE RECORDS SUMMARY | 2018-07-18 07:06 | XMS REPORT ---
Author Author RBANDY SAGAR [facility] Address [address] [place] [address] Care Team Providers Care Painter Interior Finish Name Role Phone BRANDYTEZ HOYTHANY Unavailable PROBLEMS Type Condition ICD9-CM Code [id number] Code Onset Dates Condition Status SNOMED Code Problem Migraine with aura and without status migrainosus, not intractable G43.109 Active 9221036 Problem PCOS (polycystic ovarian syndrome) E28.2 Active 97139674 Problem Uncomplicated severe persistent asthma J45.50 Active 488809054 Problem Severe persistent asthma with exacerbation J45.51 Active 337299105 Problem Other elevated white blood cell (WBC) count D72.828 Active 568373455 Problem Multiple food allergies Z91.018 Active 421534924 Problem Pure hypercholesterolemia E78.00 Active 266496322 Problem Current chronic use of inhaled steroid Z79.51 Active 733764389 Problem Asthma exacerbation J45.901 Active 226695274 Problem ADD (attention deficit disorder) F90.0 Active 521622943 Problem Allergic rhinitis due to pollen J30.1 Active 13097829 Problem Vitamin D deficiency E55.9 Active 99420835 Problem Major depressive disorder, recurrent episode, mild F33.0 Active 860753719 Problem Acquired hypothyroidism E03.9 Active 896502915 Problem Gastroesophageal reflux disease without esophagitis K21.9 Active 228019340 ALLERGIES No Information ENCOUNTERS Encounter Location Date Diagnosis [facility] [address] [address] Jun, Allergic rhinitis due to pollen J30.1 [facility] [address] [address] May, Allergic rhinitis due to pollen J30.1 [facility] [address] [address] May, [facility] [id number] [place] [address] 28849- 0458 May, Allergic rhinitis due to pollen J30.1 [place] [address] 22281- 0913 May, Sore throat J02.9 and Strep pharyngitis J02.0 [place] [address] 33286- 6145 May, Allergic rhinitis due to pollen J30.1 [place] [address] 58277- 2316 Apr, Encounter for immunization Z23 [place] [address] 79404- 7884 Apr, Recurrent infections B99.9 [place] [address] 77973- 7368 Apr, Other elevated white blood cell (WBC) count D72.828 ; ADD ( attention deficit disorder) F90.0 ; Recurrent infections B99.9 and Uncomplicated severe persistent asthma J45.50 [place] [address] 09310- 4266 Apr, ADD (attention deficit disorder) F90.0 [place] [address] 41253- 4799 Mar, Allergic rhinitis due to pollen J30.1 [place] [id number] [place] [address] 87052- 4715 Mar, Severe persistent asthma with exacerbation J45.51 and Haemophilus infection A49.2 [place] [address] 43573- 8735 Mar, [place] [address] 39756- 4612 Mar, Multiple food allergies Z91.018 [place] [address] 98938- 6456 Jan, Allergic rhinitis due to pollen J30.1 [facility] [id number] [place] [address] 00094- 1311 Jan, [facility] [id number] [place] [address] 48890- 5371 Jan, Allergic reaction, initial encounter T78.40XA [facility] [address] 53345- 2817 Dec, Allergic rhinitis due to pollen J30.1 [facility] [id number] [place] [address] 45375- 0757 Dec, [place] [address] 21048- 7105 Dec, Allergic rhinitis due to pollen J30.1 [place] [address] 12595- 8076 Dec, ADD (attention deficit disorder) F90.0 [place] [address] 38964- 8956 Dec, ADD (attention deficit disorder) F90.0 and Uncomplicated severe persistent asthma J45.50 [place] [id number] [place] [address] 45081- 2725 Dec, Allergic rhinitis due to pollen J30.1 [facility] [id number] [place] [address] 75311- 9447 Dec, [facility] [id number] [place] [address] 29378- 8914 October, Allergic rhinitis due to pollen J30.1 [place] [id number] [place] [address] 73646- 4014 October, Allergic rhinitis due to pollen J30.1 [place] [id number] [place] [address] 19193- 6261 Oct, [facility] [id number] [place] [address] 58560- 4512 Oct, Allergic rhinitis due to pollen J30.1 [place] [address] 34490- 2085 Oct, [place] [address] 14257- 2141 Oct, Allergic rhinitis due to pollen J30.1 [place] [address] 56699- 3523 Oct, Severe persistent asthma with exacerbation J45.51 and Pneumonia due to Haemophilus influenzae, unspecified laterality, unspecified part of lung J14 [place] [address] 46333- 0993 Oct, ADD (attention deficit disorder) F90.0 [place] [address] 22789- 6612 Aug, Haemophilus influenzae infection A49.2 [place] [address] 29288- 0194 Aug, Cough productive of purulent sputum R05 [place] [address] 94134- 3652 Aug, [place] [address] 63121- 6597 Aug, Pulmonary congestion R09.89 [place] [address] 34494- 6595 Aug, Severe persistent asthma with exacerbation J45.51 ; Hiatal hernia K44.9 and Gastroesophageal reflux disease without esophagitis K21.9 [place] [address] 82262- 5645 Aug, Other elevated white blood cell (WBC) count D72.828 [place] [address] 90955- 0552 Aug, Uncomplicated severe persistent asthma J45.50 [place] [address] 04197- 9069 Aug, Pure hypercholesterolemia E78.00 ; Uncomplicated severe persistent asthma J45.50 and Acquired hypothyroidism E03.9 [place] [address] 98620- 2213 Aug, Acquired hypothyroidism E03.9 ; Pure hypercholesterolemia E78.00 and Uncomplicated severe persistent asthma J45.50 [place] [address] 00903- 3225 Aug, Allergic rhinitis due to pollen J30.1 [place] [address] 233483- 3323 Aug, Allergic rhinitis due to pollen J30.1 [place] [address] 21359- 4427 Aug, [place] [address] [place] [id number] Jul, Pharyngitis, unspecified etiology J02.9 and Lymphadenopathy R59.1 [place] [address] 15790- 9796 Jul, ADD (attention deficit disorder) F90.0 [place] [address] 64366- 2791 Jul, Allergic rhinitis due to pollen J30.1 [place] [address] 67379- 0900 Jul, Dental examination Z01.20 [place] [address] 65090- 8321 Jun, Cough productive of purulent sputum R05 [place] [address] 99731- 0443 Jun, Allergic rhinitis due to pollen J30.1 [place] [address] 94960- 5323 Jun, [place] [address] [place] [address] 78218- 1203 Jun, Allergic rhinitis due to pollen J30.1 [place] [id number] [place] [address] 58271- 1169 Jun, Allergic rhinitis due to pollen J30.1 [place] [id number] [place] [address] 39581- 2552 May, Allergic rhinitis due to pollen J30.1 [place] [id number] [place] [address] 76724- 1747 May, Pneumonia due to Haemophilus influenzae, unspecified laterality, unspecified part of lung J14 [place] [id number] [place] [address] 63922- 1765 May, Allergic rhinitis due to pollen J30.1 [place] [id number] [place] [address] 95452- 8408 May, Other adverse food reactions, not elsewhere classified, initial encounter T78.1XXA and Pneumonia due to Haemophilus influenzae, unspecified laterality, unspecified part of lung J14 [place] [id number] [place] [address] 19878- 0683 May, Pneumonia due to Haemophilus influenzae, unspecified laterality, unspecified part of lung J14 [place] [id number] [place] [address] 94661- 8741 May, Multiple food allergies Z91.018 ; Uncomplicated severe persistent asthma J45.50 ; Cough productive of purulent sputum R05 and Uses central nervous system stimulants F15.90 [place] [id number] [place] [address] 83343- 2674 Apr, Allergic rhinitis due to pollen J30.1 [place] [id number] [place] [address] 64971- 8057 Apr, Allergic rhinitis due to pollen J30.1 [place] [address] [place] [address]- 9875 Apr, Allergic rhinitis due to pollen J30.1 [place] [address] 05329- 2160 Apr, ADD (attention deficit disorder) F90.0 [place] [id number] [place] [address] 01917- 0478 28 Mar, 2017 Allergic rhinitis due to pollen J30.1 [place] [address] 37969- 0142 21 Mar, 2017 Encounter for immunization Z23 [place] [address] 25228- 5067 19 Mar, 2017 [place] [address] 99593- 9266 14 Mar, 2017 Allergic rhinitis due to pollen J30.1 [place] [address] 79332- 1467 07 Mar, 2017 Allergic rhinitis due to pollen J30.1 [place] [id number] [place] [address] 49164- 5419 Jan, Allergic rhinitis due to pollen J30.1 [place] [id number] [place] [address] 72031- 3941 Jan, Allergic rhinitis due to pollen J30.1 [place] [id number] [place] [address] 58662- 2027 Dec, Uncomplicated severe persistent asthma J45.50 [place] [id number] [place] [address] 22301- 0589 Dec, Allergic rhinitis due to pollen J30.1 [place] [id number] [place] [address] 17087- 8734 Dec, Allergic rhinitis due to pollen J30.1 [place] [id number] [place] [address] 34756- 6214 Dec, Allergic rhinitis due to pollen J30.1 [place] [address] [place] [address] 59415- 2697 Dec, ADD (attention deficit disorder) F90.0 [place] [id number] [place] [address] 67912- 8416 Dec, Allergic rhinitis due to pollen J30.1 [place] [id number] [place] [address] 77135- 6596 Dec, Visit for TB skin test Z11.1 and Screening for tuberculosis Z11.1 [place] [id number] [place] [address] 69215- 7680 Dec, Uncomplicated severe persistent asthma J45.50 ; Palpitations R00.2 ; Pericardial effusion (noninflammatory) I31.3 and Chest discomfort R07.89 [place] [id number] [place] [address] 56417- 4004 Dec, Allergic rhinitis due to pollen J30.1 [place] [id number] [place] [address] 45542- 7023 Dec, Chronic cough R05 [place] [id number] [place] [address] 28167- 8243 Dec, [place] [id number] [place] [address] 70375- 1124 Dec, Allergic rhinitis due to pollen J30.1 [place] [id number] [place] [address] 31523- 8933 Dec, Allergic rhinitis due to pollen J30.1 [place] [id number] [place] [address] 98995- 3657 Dec, Chronic cough R05 [place] [id number] [place] [address] 95953- 1260 October, Allergic rhinitis due to pollen J30.1 [place] [id number] [place] [address] 68249- 0152 October, Allergic rhinitis due to pollen J30.1 [place] [id number] [place] [address] 36632- 9006 October, [place] [id number] [place] [address] 74396- 3365 October, Asthma exacerbation J45.901 [place] [id number] [place] [address] 00819- 3375 October, Asthma exacerbation J45.901 and Current chronic use of inhaled steroid Z79.51 [place] [address] [place] [address] 01755- 4110 October, Uncomplicated severe persistent asthma J45.50 [place] [id number] [place] [address] 98815- 9323 October, Allergic rhinitis due to pollen J30.1 [place] [id number] [place] [address] 69613- 5783 Oct, [place] [id number] [place] [address] 55244- 7364 Oct, Asthma exacerbation J45.901 and Sputum production R05 [place] [id number] [place] [address] 36846- 3549 Oct, Asthma exacerbation J45.901 [place] [id number] [place] [address] 93814- 2994 Oct, ADD (attention deficit disorder) F90.0 [place] [id number] [place] [address] 44523- 3111 Oct, ADD (attention deficit disorder) F90.0 [place] [id number] [place] [address] 16466- 2970 Aug, Allergic rhinitis due to pollen J30.1 [place] [id number] [place] [address] 24581- 5601 Aug, Atypical pneumonia J18.9 [place] [id number] [place] [address] 27673- 2370 Aug, Allergic rhinitis due to pollen J30.1 [facility] [address] 33752- 4614 Aug, Acquired hypothyroidism E03.9 [place] [address] 36514- 3997 Aug, Multiple food allergies Z91.018 ; Elevated blood pressure reading R03.0 and Anaphylaxis, subsequent encounter T78.2XXD [place] [address] [id number] Aug, [place] [address] 31761- 6629 Aug, Anaphylaxis, initial encounter T78.2XXA [place] [address] 14041- 7547 Aug, Allergic rhinitis due to pollen J30.1 [place] [address] 02182- 7522 Aug, Dental examination Z01.20 [place] [address] 66101- 4459 Aug, Allergic rhinitis due to pollen J30.1 [place] [address] 50060- 7774 Aug, Acquired hypothyroidism E03.9 and Pure hypercholesterolemia E78.00 [place] [address] 50392- 1479 Aug, ADD (attention deficit disorder) F90.0 ; Acquired hypothyroidism E03.9 and Pure hypercholesterolemia E78.00 [place] [address] 37848- 6472 Aug, Asthma exacerbation J45.901 [place] [address] 12763- 4631 Jul, Allergic rhinitis due to pollen J30.1 [facility] [address] [address]- 6498 Jul, Allergic rhinitis due to pollen J30.1 [facility] [address] [address]- 5696 Jul, [facility] [id number] [place] [address] 36634- 7234 Jul, Allergic rhinitis due to pollen J30.1 [facility] [address] [place] [address] 23031- 6164 Jul, Other alf (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 and ADD ( attention deficit disorder) F90.0 [place] [id number] [place] [address] 19737- 9429 Jul, Other alf (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 and ADD ( attention deficit disorder) F90.0 [facility] [address] [address]- 4673 Jul, [facility] [id number] [place] [address] 19719- 6046 Jun, Allergic rhinitis due to pollen J30.1 [facility] [address] [address]- 6912 Jun, Allergic rhinitis due to pollen J30.1 [facility] [address] [address]- 1537 Jun, [facility] [address] [place] [address] 78542- 1965 May, Allergic rhinitis due to pollen J30.1 [facility] [address] [address]- 3627 May, Allergic rhinitis due to pollen J30.1 [facility] [address] [address]- 5862 Apr, Allergic rhinitis due to pollen J30.1 [place] [id number] [place] [address] 67653- 1665 Apr, Allergic rhinitis due to pollen J30.1 [place] [id number] [place] [address] 90901- 2291 Apr, Encounter for immunization Z23 [place] [address] 17853- 9458 Apr, [place] [id number] [place] [address] 00792- 8161 Mar, Allergic rhinitis due to pollen J30.1 [place] [address] 79909- 8722 Mar, Multiple allergies Z88.9 [place] [address] 76913- 5933 Mar, Candidal vaginitis B37.3 [place] [address] 35269- 6383 Mar, Allergic rhinitis due to pollen J30.1 [place] [address] 90292- 1778 Jan, Asthma exacerbation J45.901 ; Fatigue, unspecified type R53.83 and Community acquired pneumonia J18.9 [facility] [id number] [place] [address] [id number] Jan, Encounter for dental examination Z01.20 [place] [id number] [place] [address] 27868- 3131 Jan, Allergic rhinitis due to pollen J30.1 [place] [address] 10611- 5359 Dec, Allergic rhinitis due to pollen J30.1 [place] [id number] [place] [address] 42604- 8062 Dec, [place] [address] [place] [address]- 0774 Dec, Allergic rhinitis due to pollen J30.1 [facility] [address] [place] [address] 93331- 7561 Dec, [facility] [address] [place] [address] 88880- 6686 Dec, [facility] [id number] [place] [address] 01916- 9222 Dec, [facility] [id number] [place] [address] 99563- 3426 Dec, Allergic rhinitis due to pollen J30.1 [facility] [id number] [place] [address] 37605- 6356 Dec, [facility] [id number] [place] [address] 36567- 9653 Dec, [facility] [id number] [place] [address] 23621- 5302 Dec, Allergic rhinitis due to pollen J30.1 [facility] [address] [place] [address] 35765- 0753 October, Allergic rhinitis due to pollen J30.1 [facility] [address] [place] [address] 73930- 7113 October, Allergic rhinitis due to pollen J30.1 [facility] [address] [address]- 7280 October, [facility] [address] [place] [address] 08893- 3564 October, [facility] [id number] [place] [address] 20291- 9974 October, ADD (attention deficit disorder) F90.0 ; Major depressive disorder, recurrent episode, mild F33.0 and Uncomplicated severe persistent asthma J45.50 [facility] [id number] [place] [address] 26588- 7718 Oct, Allergic rhinitis due to pollen J30.1 [facility] [id number] [place] [address] 13174- 6670 Oct, ADD (attention deficit disorder) F90.0 [facility] [id number] [place] [address] 77088- 1029 Oct, Allergic rhinitis due to pollen 477.0 [facility] [id number] [place] [address] 69411- 2523 Aug, Allergic rhinitis due to pollen 477.0 [place] [id number] [place] [address] 41639- 3717 Aug, 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 [place] [id number] [place] [address] 06295- 7957 Aug, [facility] [id number] [place] [address] 23328- 7854 Aug, Allergic rhinitis due to pollen 477.0 [facility] [id number] [place] [address] 95703- 5568 Aug, Allergic rhinitis due to pollen 477.0 [facility] [id number] [place] [address] 73454- 3479 Aug, Allergic rhinitis due to pollen 477.0 [facility] [id number] [place] [address] 08747- 0146 Aug, Exposure to influenza Z20.828 [facility] [id number] [place] [address] [id number] Aug, Encounter for dental examination and cleaning without abnormal findings Z01.20 [facility] [id number] [place] [address] 98454- 2863 Aug, Allergic rhinitis due to pollen J30.1 [facility] [id number] [place] [address] 51427- 8869 Aug, [place] [address] [place] [address] 54643- 9606 Aug, 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 [place] [id number] [place] [address] 92434- 4580 Jul, [place] [id number] [place] [address] 40281- 1679 Jul, Allergic rhinitis due to pollen 477.0 [place] [id number] [place] [address] 69721- 0319 Jul, [place] [address] 37207- 4037 Jul, Allergic rhinitis due to pollen 477.0 [place] [address] [address] Jun, ADD (attention deficit disorder) F90.0 ; Acquired hypothyroidism E03.9 ; PCOS (polycystic ovarian syndrome) E28.2 ; Polyarthralgia M25.50 and On stimulant medication Z79.899 [place] [address] [address] Apr, Encounter for immunization Z23 [place] [address] [address]- [address]672 16 Mar, 2015 Allergic rhinitis due to pollen 477.0 [place] [id number] [place] [address] 13056- 9466 14 Mar, 2015 Influenza vaccine administered V04.81 [place] [id number] [place] [address] 17214- 5295 Mar, [place] [address] [address] Jan, Allergic rhinitis due to pollen 477.0 [place] [id number] [place] [address] 56289- 0335 Jan, Allergic rhinitis due to pollen 477.0 [place] [address] [facility] [id number] [address] Jan, Allergic rhinitis due to pollen 477.0 [facility] [address], [place] [id number] Jan, Dental examination V72.2 [facility] [address] [place] [address] Dec, Allergic rhinitis due to pollen 477.0 [facility] [address] [place] [address] October, [facility] [id number] [place] [address] Oct, [facility] [address] [address] Oct, [facility] [address] [address] Aug, [facility] [address] [address] Aug, [facility] [address] [place] [address] Aug, [facility] [address] [address] Aug, [facility] [address] [address] Aug, [facility] [address] [address]- 2384 Aug, [facility] [id number] [address] Aug, [facility] [id number] [address] [address] Aug, [facility] [address] [address] [address] Jul, [facility] [place] [facility] [address] [id number] [place] [address] 4666 Jul, [facility] [place] [facility] [address] [id number] [place] [address] 7470 Jul, [facility] [place] [facility] [address] [id number] [place] [address]- 2668 Jul, [facility] [place] [facility] [address] [id number] [place] [address]- 7699 Jul, [facility] [place] [facility] [address] [id number] [place] [address] 2942 Jul, [facility] [place] [facility] [address] [id number] [place] [address]- 5238 Jul, [facility] [place] [facility] [address] [id number] [place] [address]- 0814 Jul, [facility] [place] [facility] [address] [id number] [place] [address]- 8670 Jul, [facility] [place] [facility] [address] [id number] [place] [address]- 5489 Jul, [facility] [place] [facility] [address] [id number] [address] 1041 Jul, [facility] [place] [facility] [address] [id number] [address] 7886 Jun, [facility] [place] [facility] [address] [id number] [address] 4838 Jun, [facility] [place] [facility] [address] [id number] [place] [address]- 6964 Jun, [facility] [place] [facility] [address] [id number] [place] [address]- 2901 Jun, [facility] [place] [facility] [address] [id number] [address]- 4494 Jun, [facility] [place] [facility] [address] [id number] [address]- 8952 Jun, [facility] [place] [facility] [address] [id number] [place] [address]- 1408 May, [facility] [place] [facility] [address] [id number] [address]- 0412 May, [facility] [place] [facility] [address] [facility] [id number] [place] [address]- 0033 May, [facility] [place] [facility] [address] [id number] [place] [address]- 4107 May, [facility] [place] [facility] [address] [facility] [id number] [place] [address], [place] [address] 5918 May, [facility] [place] [facility] [address] [id number] [place] [address]- 8700 May, [facility] [place] [facility] [address] [id number] [address]- 2163 Apr, [facility] [place] [facility] [address] [id number] [place] [address]- 6044 Apr, [facility] [place] [facility] [address] [facility] [id number] [place] [address]- 3723 Mar, [facility] [place] [facility] [address] [facility] [id number] [place] [address]- 8511 30 Mar, 2014 [facility] [place] [facility] [address] [id number] [address]- 7071 30 Mar, 2014 [facility] [place] [facility] [address] [id number] [address]- 2548 30 Mar, 2014 [facility] [place] [facility] [address] [id number] [place] [address]- 3225 Mar, [facility] [place] [facility] [address] [facility] [id number] [address]- 0382 Mar, [facility] [place] [facility] [address] [facility] [id number] [address]- 8245 Jan, [facility] [place] [facility] [address] [id number] [place] [address] Jan, [facility] [place] [facility] [address] [id number] [place] [address]- 9060 Jan, [facility] [place] [facility] [address] [id number] [place] [address]- 2339 Jan, [facility] [place] [facility] [address] [id number] [place] [address]- 5836 Jan, [facility] [place] [facility] [address] [id number] [place] [address]- 1976 Jan, [facility] [place] [facility] [address] [id number] [place] [address]- 0169 Dec, [facility] [place] [facility] [address] [id number] [place] [address]- 3203 Dec, [facility] [place] [facility] [address] [id number] [place] [address]- 2083 Dec, [facility] [place] [facility] [address] [id number] [place] [address]- 9719 Dec, [facility] [place] [facility] [address] [id number] [place] [address]- 1915 Dec, [facility] [place] [facility] [address] [id number] [place] [address]- 3980 Dec, [facility] [place] [facility] [address] [id number] [place] [address]- 5140 Dec, [facility] [place] [facility] [address] [id number] [place] [address]- 9195 Dec, [facility] [place] [facility] [address] [id number] [place] [address]- 6642 Dec, [facility] [place] [facility] [address] [id number] [place] [address]- 6317 Dec, [facility] [place] [facility] [address] [id number] [place] [address]- 5929 Dec, [facility] [place] [facility] [address] [id number] [place] [address]- 0772 Dec, [facility] [place] [facility] [address] [id number] [place] [address]- 4405 Dec, [facility] [place] [facility] [address] [id number] [place] [address]- 3421 Dec, [facility] [place] [facility] [address] [id number] [place] [address]- 3876 Dec, [facility] [place] [facility] [address] [id number] [place] [address]- 8312 Dec, [facility] [place] [facility] [address] [id number] [place] [address]- 8120 October, [facility] [place] [facility] [address] [id number] [place] [address]- 8488 October, [facility] [place] [facility] [address] [id number] [place] [address]- 9688 October, [facility] [place] [facility] [address] [id number] [place] [address]- 4664 October, [facility] [place] [facility] [address] [id number] [place] [address]- 3613 October, [facility] [place] [facility] [address] [id number] [place] [address]- 4681 October, [facility] [place] [facility] [address] [id number] [place] [address]- 1650 Oct, [facility] [place] [facility] [address] [id number] [place] [address]- 7831 Oct, [facility] [place] [facility] [address] [id number] [place] [address]- 4783 Oct, [facility] [place] [facility] [address] [id number] [place] [address]- 3668 Oct, [facility] [place] [facility] [address] [id number] [place] [address]- 8746 Oct, [facility] [address] [id number] [place] [address]- 2226 Oct, [facility] [address] [id number] [place] [address]- 6296 Aug, [facility] [address] [id number] [place] [address]- 5354 Aug, [facility] [place] [facility] [address] [id number] [place] [address]- 9874 Aug, [facility] [address] [id number] [place] [address]- 8217 Aug, [facility] [address] [id number] [place] [address]- 8489 Jul, [facility] [address] [id number] [place] [address]- 9620 Jul, [facility] [address] [id number] [place] [address]- 2072 Jul, [facility] [address] [id number] [place] [address]- 3036 Jul, [facility] [address] [id number] [place] [address]- 2702 Jun, [facility] [place] [facility] [address] [id number] [place] [address] 2546 31 Jun, 2013 [facility] [place] [facility] [address] [id number] [place] [address]- 9950 24 Jun, 2013 [facility] [place] [facility] [address] [id number] [place] [address]- 8157 24 Jun, 2013 [facility] [place] [facility] [address] [id number] [place] [address]- 4037 20 Jun, 2013 [facility] [place] [facility] [address] [id number] [place] Jun, [facility] [place] [facility] [address] [id number] [place] [address]- 9434 Jun, [facility] [place] [facility] [address] [id number] [place] [address]- 5879 Jun, [facility] [place] [facility] [address] [id number] [place] [address]- 5970 Jun, [facility] [place] [facility] [address] [id number] [place] [address]- 2234 Jun, [facility] [place] [facility] [address] [id number] [place] [address]- 5241 Jun, [facility] [place] [facility] [address] [id number] [place] [address]- 4023 May, [facility] [place] [facility] [address] [id number] [place] [address]- 8636 May, [facility] [place] [facility] [address] [id number] [address]- 3151 May, [facility] [place] [facility] [address] [id number] [place] [address]- 8800 May, [facility] [place] [facility] [address] [id number] [address]- 5110 May, [facility] [place] [facility] [address] [id number] [address]- 5212 May, [facility] [place] [facility] [address] [id number] [address]- 9939 May, [facility] [place] [facility] [address] [id number] [place] [address]- 1031 Apr, [facility] [place] [facility] [address] [id number] [address]- 2363 Apr, [facility] [place] [facility] [address] [id number] [address]- 7748 Apr, [facility] [place] [facility] [address] [id number] [address]- 9360 Apr, [facility] [place] [facility] [address] [id number] [place] [address]- 1550 27 Mar, 2012 [facility] [place] [facility] [address] [id number] [place] [address] 2546 Mar, [facility] [place] [facility] [address] [id number] [place] [address]- 8006 Mar, [facility] [place] [facility] [address] [id number] [place] [address] 2540 Mar, [facility] [place] [facility] [address] [id number] [place] [address]- 0190 Mar, [facility] [place] [facility] [address] [id number] [place] [address]- 4668 Mar, [facility] [place] [facility] [address] [id number] [place] [address]- 7865 Jan, [facility] [place] [facility] [address] [id number] [place] [address]- 2854 Jan, [facility] [place] [facility] [address] [id number] [place] [address]- 9777 Jan, [facility] [place] [facility] [address] [id number] [place] [address]- 2120 Jan, [facility] [place] [facility] [address] [id number] [place] [address]- 8130 Jan, [facility] [place] [facility] [address] [id number] [place] [address]- 8095 Dec, [facility] [place] [facility] [address] [id number] [place] [address]- 2575 Dec, [facility] [place] [facility] [address] [id number] [place] [address]- 0062 Dec, [facility] [place] [facility] [address] [id number] [place] [address]- 1397 Dec, [facility] [place] [facility] [address] [id number] [place] [address]- 6989 Dec, [facility] [address] [id number] [place] [address]- 9495 Dec, [facility] [address] [id number] [place] [address]- 3778 Dec, [facility] [address] [id number] [place] [address]- 0698 Dec, [facility] [address] [id number] [place] [address]- 0555 October, [facility] [address] [id number] [place] [address]- 1802 October, [facility] [address] [id number] [place] [address]- 2151 October, [facility] [address] [id number] [place] [address]- 5641 Oct, [facility] [address] [id number] [place] [address]- 1829 Oct, [facility] [address] [id number] [place] [address]- 4009 Oct, [facility] [address] [id number] [place] [address]- 7165 Oct, [facility] [address] [id number] [place] [address]- 8583 Aug, [facility] [address] [id number] [place] [address]- 6972 Aug, [facility] [place] [facility] [address] [id number] [place] [address]- 6731 05 Aug, 2012 [facility] [place] [facility] [address] [id number] [place] [address]- 6602 Jul, [facility] [address] [id number] [place] [address]- 6203 May, [facility] [place] [facility] [address] [id number] [place] [address]- 6510 May, [facility] [place] [facility] [address] [id number] [place] [address]- 3464 Apr, [facility] [place] [facility] [address] [id number] [place] [address]- 0103 Apr, [facility] [place] [facility] [address] [id number] [place] [address]- 9698 Apr, [facility] [place] [facility] [address] [id number] [place] [address]- 1611 Apr, [facility] [place] [facility] [address] [id number] [place] [address]- 9076 Apr, [facility] [place] [facility] [address] [id number] [place] [address]- 2898 Apr, [facility] [place] [facility] [address] [id number] [address]- 2753 Apr, [facility] [place] [facility] [address] [id number] [place] [address]- 7566 Apr, [facility] [place] [facility] [address] [id number] [address]- 4053 Apr, [facility] [place] [facility] [address] [id number] [address]- 0005 Apr, [facility] [place] [facility] [address] [id number] [address]- 7484 14 Apr, 2012 [facility] [place] [facility] [address] [id number] [place] [address]- 6769 Apr, [facility] [place] [facility] [address] [id number] [address]- 5203 Mar, [facility] [place] [facility] [address] [id number] [place] [address]959 Jan, [facility] [place] [facility] [address] [id number] [place] [address]- 6586 Dec, [facility] [address] [id number] [place] [address]- 5084 October, [facility] [place] [facility] [address] [id number] [place] [address]- 6293 Oct, [facility] [place] [facility] [address] [id number] [place] [address]- 1521 Oct, [facility] [place] [facility] [address] [id number] [place] [address]- 7791 Oct, [facility] [place] [facility] [address] [id number] [place] [address]- 5977 Aug, [facility] [place] [facility] [address] [id number] [place] [address]- 7394 Aug, [facility] [address] [id number] [place] [address]- 4524 29 Aug, 2011 [facility] [place] [facility] [address] [id number] [place] [address]- 6014 16 Aug, 2011 [facility] [place] [facility] [id number] [address]- 6734 Aug, [facility] [address] [facility] [id number] [place] [address]- 8437 Aug, [facility] [place] [facility] [address] [id number] [place] [address]- 7067 Jun, [facility] [place] [facility] [address] [id number] [place] [address]- 5145 Apr, [facility] [place] [facility] [address] [id number] [place] [address]- 0981 Jun, [facility] [place] [facility] [address] [id number] [place] [address]- 2546 Jun, [facility] [place] [facility] [address] [facility] [id number] [place] [address]- 4994 May, [facility] [address] [facility] [id number] [place] [address]- 3035 May, [facility] [address] [facility] [id number] [place] [address]- 7886 15 Apr, 2009 [facility] [address] [facility] [id number] [place] [address]- 8549 13 Apr, 2009 IMMUNIZATIONS No Known Immunizations SOCIAL HISTORY Never Assessed REASON FOR VISIT Allergy injection(s) PLAN OF CARE VITAL SIGNS MEDICATIONS Unknown Medications RESULTS No Results PROCEDURES Procedure Date Ordered Result Body Site IMMUNOTHERAPY, 2 OR MORE INJECTIONS 2018-06-07 N/A IMMUNOTHERAPY INJECTIONS Jun 07, 2018 INSTRUCTIONS MEDICATIONS ADMINISTERED No Known Medications MEDICAL (GENERAL) HISTORY Type Description Date Medical History Hypothyroid Medical History Asthma Medical History Migraine Headaches Medical History Depression Medical History ADHD Medical History GERD Medical History Allergic Rhinitis Medical History PCOS Surgical History Left wrist plate 2002 Surgical History 2003 Surgical History 2009 Surgical History EGD 2011 Surgical History Hiatal Hernia Repair and Fundoplication 2013 Surgical History 2014 Surgical History Wound Dehisance 2014 Hospitalization History see above surgeries Hospitalization History Anaphylactic shock-[facility] 08/23/16
--- OUTSIDE RECORDS SUMMARY | 2018-07-18 07:06 | XMS REPORT ---
Author Author BRANYD SAGAR [facility] Address [address] [place] [address] Care Team Providers Care Communications Analyst Name Role Phone BRANDYTEZ HOYTHANY Unavailable PROBLEMS Type Condition ICD9-CM Code WHF25-RI Code Onset Dates Condition Status SNOMED Code Problem Migraine with aura and without status migrainosus, not intractable G43.109 Active 5707385 Problem PCOS (polycystic ovarian syndrome) E28.2 Active 98242964 Problem Uncomplicated severe persistent asthma J45.50 Active 178618716 Problem Severe persistent asthma with exacerbation J45.51 Active 600520269 Problem Other elevated white blood cell (WBC) count D72.828 Active 824392300 Problem Multiple food allergies Z91.018 Active 340717522 Problem Pure hypercholesterolemia E78.00 Active 180158639 Problem Current chronic use of inhaled steroid Z79.51 Active 901228640 Problem Asthma exacerbation J45.901 Active 262634755 Problem ADD (attention deficit disorder) F90.0 Active 345271559 Problem Allergic rhinitis due to pollen J30.1 Active 97350081 Problem Vitamin D deficiency E55.9 Active 79148533 Problem Major depressive disorder, recurrent episode, mild F33.0 Active 697549215 Problem Acquired hypothyroidism E03.9 Active 555922099 Problem Gastroesophageal reflux disease without esophagitis K21.9 Active 512618017 ALLERGIES No Information ENCOUNTERS Encounter Location Date Diagnosis [facility] [address], [place] [address] May, Allergic rhinitis due to pollen J30.1 [facility] [address] [address] May, [facility] [address], [place] [address] May, Allergic rhinitis due to pollen J30.1 [facility] [id number] [place] [address] 56655- 2029 May, Sore throat J02.9 and Strep pharyngitis J02.0 [place] [address] 6[address]- 8579 May, Allergic rhinitis due to pollen J30.[address] 99209- 4207 Apr, Encounter for immunization Z23 [place] [address] 68327- 4303 Apr, Recurrent infections B99.[address] 69552- 9860 Apr, Other elevated white blood cell (WBC) count D72.828 ; ADD ( attention deficit disorder) F90.0 ; Recurrent infections B99.9 and Uncomplicated severe persistent asthma J45.[address] 77918- 8363 Apr, ADD (attention deficit disorder) F90.[address] 23078- 4034 Mar, Allergic rhinitis due to pollen J30.1 [place] [id number] [place] [address] 57624- 7240 Mar, Severe persistent asthma with exacerbation J45.51 and Haemophilus infection A49.2 [place] [id number] [place] [address] 57084- 7498 Mar, [address] 39304- 3006 Mar, Multiple food allergies Z91.018 [place] [id number] [place] [address] 40055- 5391 Jan, Allergic rhinitis due to pollen J30.[address] 05374- 3927 Jan, [facility] [id number] [place] [address] 24907- 0231 Jan, Allergic reaction, initial encounter T78.40XA [facility] [address] 59783- 2921 Dec, Allergic rhinitis due to pollen J30.1 [facility] [id number] [place] [address] 83123- 7634 Dec, [facility] [address] 76256- 4865 Dec, Allergic rhinitis due to pollen J30.1 [place] [address] 28695- 5602 Dec, ADD (attention deficit disorder) F90.0 [place] [address] 57976- 2431 Dec, ADD (attention deficit disorder) F90.0 and Uncomplicated severe persistent asthma J45.50 [facility] [id number] [place] [address] 75866- 2821 Dec, Allergic rhinitis due to pollen J30.1 [facility] [id number] [place] [address] 52035- 5549 Dec, [facility] [id number] [place] [address] 06572- 4523 October, Allergic rhinitis due to pollen J30.1 [facility] [id number] [place] [address] 74419- 5567 October, Allergic rhinitis due to pollen J30.1 [facility] [id number] [place] [address] 91534- 2167 Oct, [facility] [id number] [place] [address] 20067- 6913 Oct, Allergic rhinitis due to pollen J30.1 [facility] [id number] [place] [address] 36038- 7090 Oct, [place] [id number] [place] [address] 21761- 6253 Oct, Allergic rhinitis due to pollen J30.1 [place] [address] 22484- 8095 13 Oct, 2017 Severe persistent asthma with exacerbation J45.51 and Pneumonia due to Haemophilus influenzae, unspecified laterality, unspecified part of lung J14 [place] [id number] [place] [address] 21060- 3042 Oct, ADD (attention deficit disorder) F90.[address] 61213- 0441 Aug, Haemophilus influenzae infection A49.[address] 84982- 1651 Aug, Cough productive of purulent sputum R05 [place] [address] 97414- 9522 Aug, [address] 56100- 2151 Aug, Pulmonary congestion R09.[address] 55180- 9139 Aug, Severe persistent asthma with exacerbation J45.51 ; Hiatal hernia K44.9 and Gastroesophageal reflux disease without esophagitis K21.9 [place] [id number] [place] [address] 19722- 7830 Aug, Other elevated white blood cell (WBC) count D72.[address] 32129- 4346 Aug, Uncomplicated severe persistent asthma J45.[address] 47866- 9785 Aug, Pure hypercholesterolemia E78.00 ; Uncomplicated severe persistent asthma J45.50 and Acquired hypothyroidism E03.9 [facility] [address] 99590- 7113 Aug, Acquired hypothyroidism E03.9 ; Pure hypercholesterolemia E78.00 and Uncomplicated severe persistent asthma J45.50 [place] [address] 81213- 6720 15 Aug, 2017 Allergic rhinitis due to pollen J30.1 [place] [address] 22822- 4499 Aug, Allergic rhinitis due to pollen J30.1 [place] [address] 36281- 1475 Aug, [place] [address] [id number] Jul, Pharyngitis, unspecified etiology J02.9 and Lymphadenopathy R59.1 [place] [address] 12020- 4614 Jul, ADD (attention deficit disorder) F90.[address] 33400- 4386 Jul, Allergic rhinitis due to pollen J30.1 [place] [address] 07114- 2969 Jul, Dental examination Z01.20 [place] [address] 82084- 7542 Jun, Cough productive of purulent sputum R05 [place] [address] 08493- 0435 Jun, Allergic rhinitis due to pollen J30.1 [place] [address] 30782- 5076 Jun, [place] [address] 42150- 1858 Jun, Allergic rhinitis due to pollen J30.1 [place] [address], [place] [address] Jun, Allergic rhinitis due to pollen J30.1 [place] [address] [place] [address] 70386- 4967 May, Allergic rhinitis due to pollen J30.1 [place] [address] [id number] [place] [address] 32120- 3574 May, Pneumonia due to Haemophilus influenzae, unspecified laterality, unspecified part of lung J14 [place] [address] [id number] [place] [address] 60159- 5423 May, Allergic rhinitis due to pollen J30.1 [place] [address] [id number] [place] [address] 21257- 4028 May, Other adverse food reactions, not elsewhere classified, initial encounter T78.1XXA and Pneumonia due to Haemophilus influenzae, unspecified laterality, unspecified part of lung J14 [place] [address] [id number] [place] [address] 78435- 5451 May, Pneumonia due to Haemophilus influenzae, unspecified laterality, unspecified part of lung J14 [place] [address] [address] [id number] [place] [address] 51768- 8114 May, Multiple food allergies Z91.018 ; Uncomplicated severe persistent asthma J45.50 ; Cough productive of purulent sputum R05 and Uses central nervous system stimulants F15.90 [place] [address] [place] [address] 75907- 5545 Apr, Allergic rhinitis due to pollen J30.1 [place] [address] [id number] [place] [address] 38915- 6960 Apr, Allergic rhinitis due to pollen J30.1 [place] [address] [address] [id number] [place] [address] 49491- 8850 Apr, Allergic rhinitis due to pollen J30.1 [place] [address] [id number] [place] [address] 78466- 0090 Apr, ADD (attention deficit disorder) F90.0 [place] [address] 27357- 9042 28 Mar, 2017 Allergic rhinitis due to pollen J30.1 [place] [address] 80027- 5191 21 Mar, 2017 Encounter for immunization Z23 [place] [address] 00071- 5841 19 Mar, 2017 [place] [address] 98729- 6412 14 Mar, 2017 Allergic rhinitis due to pollen J30.1 [place] [address] 43908- 0265 07 Mar, 2017 Allergic rhinitis due to pollen J30.1 [place] [address] 95311- 7440 Jan, Allergic rhinitis due to pollen J30.1 [place] [id number] [place] [address] 61530- 7312 Jan, Allergic rhinitis due to pollen J30.1 [place] [address] [id number] [place] [address] 42385- 5030 Dec, Uncomplicated severe persistent asthma J45.50 [place] [address] [address] [id number] [place] [address] 51406- 4898 Dec, Allergic rhinitis due to pollen J30.1 [place] [address] [id number] [place] [address] 95252- 2622 Dec, Allergic rhinitis due to pollen J30.1 [place] [address] [id number] [place] [address] 90593- 9860 Dec, Allergic rhinitis due to pollen J30.1 [place] [address] [address] [id number] [place] [address] 56227- 7532 13 David, 2017 ADD (attention deficit disorder) F90.0 [place] [address] [place] [address] 93929- 7666 Dec, Allergic rhinitis due to pollen J30.1 [place] [address] [id number] [place] [address] 24920- 4679 Dec, Visit for TB skin test Z11.1 and Screening for tuberculosis Z11.1 [place] [address] 83374- 9575 Dec, Uncomplicated severe persistent asthma J45.50 ; Palpitations R00.2 ; Pericardial effusion (noninflammatory) I31.3 and Chest discomfort R07.89 [place] [address] [place] [id number] [place] [address] 72363- 6639 Dec, Allergic rhinitis due to pollen J30.1 [place] [address] [id number] [place] [address] 70011- 5081 Dec, Chronic cough R05 [place] [address] [address] [id number] [place] [address] 54046- 6566 Dec, [place] [address] [id number] [place] [address] 32976- 1424 Dec, Allergic rhinitis due to pollen J30.1 [place] [address] [id number] [place] [address] 96770- 6955 Dec, Allergic rhinitis due to pollen J30.1 [place] [address] [id number] [place] [address] 23419- 2023 Dec, Chronic cough R05 [place] [address] [id number] [place] [address] 42676- 6587 October, Allergic rhinitis due to pollen J30.1 [place] [address] [id number] [place] [address] 00621- 3870 October, Allergic rhinitis due to pollen J30.1 [place] [address] [id number] [place] [address] 06671- 1546 October, [place] [address] [place] [address] 64966- 9825 October, Asthma exacerbation J45.901 [place] [id number] [place] [address] 17526- 0882 October, Asthma exacerbation J45.901 and Current chronic use of inhaled steroid Z79.51 [place] [address] 02001- 9996 October, Uncomplicated severe persistent asthma J45.50 [place] [address] [id number] [place] [address] 75062- 0548 October, Allergic rhinitis due to pollen J30.1 [place] [address] [id number] [place] [address] 17572- 9793 Oct, [place] [address] 66329- 1557 Oct, Asthma exacerbation J45.901 and Sputum production R05 [place] [address] [id number] [place] [address] 28466- 8380 Oct, Asthma exacerbation J45.901 [place] [address] [id number] [place] [address] 08630- 0499 Oct, ADD (attention deficit disorder) F90.0 [place] [address] [id number] [place] [address] 09723- 3435 Oct, ADD (attention deficit disorder) F90.0 [place] [address] [id number] [place] [address] 95044- 4244 Aug, Allergic rhinitis due to pollen J30.1 [place] [address] [id number] [place] [address] 07016- 7907 Aug, Atypical pneumonia J18.9 [place] [address] [id number] [place] [address] 42422- 5494 Aug, Allergic rhinitis due to pollen J30.1 [place] [address] 81835- 3879 Aug, Acquired hypothyroidism E03.9 [place] [address] 60012- 6207 Aug, Multiple food allergies Z91.018 ; Elevated blood pressure reading R03.0 and Anaphylaxis, subsequent encounter T78.2XXD [address] [id number] Aug, [place] [address] 97978- 1423 Aug, Anaphylaxis, initial encounter T78.2XXA [address] 58937- 0042 Aug, Allergic rhinitis due to pollen J30.[address] 85685- 4795 Aug, Dental examination Z01.20 [place] [address] 17890- 8557 Aug, Allergic rhinitis due to pollen J30.1 [place] [address] 31050- 0128 Aug, Acquired hypothyroidism E03.9 and Pure hypercholesterolemia E78.[address] 12494- 1762 Aug, ADD (attention deficit disorder) F90.0 ; Acquired hypothyroidism E03.9 and Pure hypercholesterolemia E78.00 [place] [address] 95630- 1570 Aug, Asthma exacerbation J45.901 [place] [address] 79026- 7896 Jul, Allergic rhinitis due to pollen J30.1 [place] [address] 28182- 7359 Jul, Allergic rhinitis due to pollen J30.1 [facility] [address], [place] [address]- 4324 Jul, [facility] [address] [place] [address] 44179- 1978 Jul, Allergic rhinitis due to pollen J30.1 [facility] [address] [place] [address] 88893- 7817 Jul, Other oysterman (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 and ADD ( attention deficit disorder) F90.0 [facility] [address] [id number] [place] [address] 65688- 0020 Jul, Other correction (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 and ADD ( attention deficit disorder) F90.0 [place] [address] [id number] [place] [address] 47563- 5648 Jul, [facility] [id number] [place] [address] 42440- 0671 Jun, Allergic rhinitis due to pollen J30.1 [facility] [id number] [place] [address] 20616- 3104 Jun, Allergic rhinitis due to pollen J30.1 [facility] [address] [place] [address] 01131- 5398 Jun, [facility] [id number] [place] [address] 46325- 7474 May, Allergic rhinitis due to pollen J30.1 [facility] [address], [place] [address]- 8491 May, Allergic rhinitis due to pollen J30.1 [facility] [id number] [place] [address] 96197- 5558 Apr, Allergic rhinitis due to pollen J30.1 [facility] [address] [place] [address] 45658- 3084 Apr, Allergic rhinitis due to pollen J30.1 [facility] [address] [place] [address] 53341- 5163 Apr, Encounter for immunization Z23 [facility] [id number] [place] [address] 59580- 2053 Apr, [facility] [id number] [place] [address] 63147- 4672 Mar, Allergic rhinitis due to pollen J30.1 [facility] [id number] [place] [address] 63265- 8179 Mar, Multiple allergies Z88.9 [place] [address] [id number] [place] [address] 51332- 6684 Mar, Candidal vaginitis B37.3 [place] [address] [place] [address] [id number] [place] [address] 21393- 0186 Mar, Allergic rhinitis due to pollen J30.1 [facility] [address] [id number] [place] [address] 89812- 5739 Jan, Asthma exacerbation J45.901 ; Fatigue, unspecified type R53.83 and Community acquired pneumonia J18.9 [facility] [address] [place] [address] [id number] Jan, Encounter for dental examination Z01.20 [facility] [address] [place] [address] 88030- 9763 Jan, Allergic rhinitis due to pollen J30.1 [facility] [address] [place] [address] 44279- 5586 Dec, Allergic rhinitis due to pollen J30.1 [facility] [address] [id number] [place] [address] 16633- 5491 Dec, [facility] [address] [id number] [place] [address] 01001- 4671 Dec, Allergic rhinitis due to pollen J30.1 [facility] [id number], [place] [address]- 7101 Dec, [facility] [id number] [place] [address] 39276- 7927 Dec, [facility] [address], [place] [address]- 4823 Dec, [facility] [address] [place] [address] 31919- 0826 Dec, Allergic rhinitis due to pollen J30.1 [facility] [address] [place] [address] 12198- 6518 Dec, [facility] [address] [id number] [place] [address] 84369- 9874 Dec, [facility] [address] [id number] [place] [address] 35846- 1216 Dec, Allergic rhinitis due to pollen J30.1 [facility] [id number] [place] [address] 57837- 4843 October, Allergic rhinitis due to pollen J30.1 [facility] [address] [place] [address] 27622- 9971 October, Allergic rhinitis due to pollen J30.1 [facility] [address] [place] [address] 62936- 0182 October, [facility] [address] [place] [address] 73648- 0746 October, [facility] [address] [place] [address] 19433- 1075 October, ADD (attention deficit disorder) F90.0 ; Major depressive disorder, recurrent episode, mild F33.0 and Uncomplicated severe persistent asthma J45.50 [facility] [address], [place] [address]- 7750 Oct, Allergic rhinitis due to pollen J30.1 [facility] [id number] [place] [address] 81788- 8067 Oct, ADD (attention deficit disorder) F90.0 [facility] [id number] [place] [address] 26809- 2972 Oct, Allergic rhinitis due to pollen 477.0 [facility] [id number] [place] [address] 43041- 7526 Aug, Allergic rhinitis due to pollen 477.0 [facility] [address] [id number] [place] [address] 78606- 3946 Aug, 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 [facility] [address] [id number] [place] [address] 54869- 2317 Aug, [facility] [id number] [place] [address] 04671- 3160 Aug, Allergic rhinitis due to pollen 477.0 [place] [address] [id number] [place] [address] 91868- 8853 Aug, Allergic rhinitis due to pollen 477.0 [facility] [id number] [place] [address] 27782- 8888 Aug, Allergic rhinitis due to pollen 477.0 [facility] [address] [id number] [place] [address] 01832- 4640 Aug, Exposure to influenza Z20.828 [facility] [id number] [place] [address] [id number] Aug, Encounter for dental examination and cleaning without abnormal findings Z01.20 [facility] [id number] [place] [address] 63631- 6452 Aug, Allergic rhinitis due to pollen J30.1 [facility] [address] [id number] [place] [address] 45711- 3977 Aug, [facility] [id number] [place] [address] 10112- 4382 Aug, 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 [place] [address] [id number] [place] [address] 52065- 8778 Jul, [place] [address] 17499- 9674 Jul, Allergic rhinitis due to pollen 477.0 [place] [address] 64232- 5952 Jul, [place] [address] 14230- 6761 Jul, Allergic rhinitis due to pollen 477.0 [place] [address] 04203- 5640 Jun, ADD (attention deficit disorder) F90.0 ; Acquired hypothyroidism E03.9 ; PCOS (polycystic ovarian syndrome) E28.2 ; Polyarthralgia M25.50 and On stimulant medication Z79.899 [place] [address] 73895- 1629 Apr, Encounter for immunization Z23 [address] 99441- 0675 16 Mar, 2015 Allergic rhinitis due to pollen 477.0 [place] [address] [id number] [place] [address] 19416- 6272 Mar, Influenza vaccine administered V04.81 [place] [address] 61426- 2628 Mar, [place] [address] 83595- 8631 Jan, Allergic rhinitis due to pollen 477.0 [place] [address] 16527- 5639 Jan, Allergic rhinitis due to pollen 477.0 [place] [address] 26321- 5957 Jan, Allergic rhinitis due to pollen 477.0 [facility] [address] [id number] [id number] 14 Jan, 2015 [facility] V72.2 [facility] [id number] [address] Dec, Allergic rhinitis due to pollen 477.0 [facility] [id number] [address] October, [facility] [id number] [address] Oct, [facility] [id number], [place] [address] Oct, [facility] [id number], [place] [address] Aug, [facility] [id number], [place] [address] Aug, [facility] [id number], [place] [address] Aug, [facility] [id number], [place] [address] Aug, [facility] [id number], [place] [address] Aug, [facility] [address] [id number] [address] Aug, [facility] [id number] [address] Aug, [facility] [id number], [place] [address] Aug, [facility] [id number] [id number] [address] Jul, [facility] [id number] [address] Jul, [facility] [place] [facility] [address] [id number] [place] [address] 1663 10 Jul, 2014 [facility] [place] [facility] [address] [id number] [place] [address] 2090 Jul, [facility] [place] [facility] [address] [id number] [place] [address] 7896 Jul, [facility] [place] [facility] [address] [id number] [place] [address] 0129 Jul, [facility] [place] [facility] [address] [id number] [place] [address] 8358 Jul, [facility] [place] [facility] [address] [id number] [place] [address] 0010 Jul, [facility] [place] [facility] [address] [id number] [place] [address] 2[address] Jul, [facility] [place] [facility] [address] [id number] [place] [address]- 4598 Jul, [facility] [place] [facility] [address] [id number] [place] [address]- 3591 Jul, [facility] [place] [facility] [address] [id number] [place] [address] 7045 Jun, [facility] [place] [facility] [address] [id number] [place] [address]- 5194 Jun, [facility] [place] [facility] [address] [id number] [place] [address]- 3341 Jun, [facility] [place] [facility] [address] [id number] [place] [address]- 3393 Jun, [facility] [place] [facility] [address] [id number] [place] [address]- 3506 Jun, [facility] [place] [facility] [address] [id number] [place] [address]- 7256 Jun, [facility] [place] [facility] [address] [id number] [place] [address]- 5569 May, [facility] [place] [facility] [address] [id number] [place] [address]- 9230 May, [facility] [place] [facility] [address] [id number] [place] [address]- 2424 May, [facility] [place] [facility] [address] [id number] [place] [address]- 6763 May, [facility] [place] [facility] [address] [id number] [place] [address]- 3505 May, [facility] [place] [facility] [address] [id number] [place] [address]- 1254 May, [facility] [place] [facility] [address] [id number] [place] [address]- 0452 Apr, [facility] [place] [facility] [address] [id number] [place] [address]- 1357 Apr, [facility] [place] [facility] [address] [id number] [place] [address]- 0914 30 Mar, 2014 [facility] [place] [facility] [address] [id number] [place] [address]- 6056 30 Mar, 2014 [facility] [place] [facility] [address] [id number] [place] [address]- 2207 30 Mar, 2014 [facility] [place] [facility] [address] [id number] [place] [address]- 9594 30 Mar, 2014 [facility] [place] [facility] [address] [id number], [place] [address] Mar, [facility] [place] [facility] [address] [id number] [place] [address]- 9632 Mar, [facility] [place] [facility] [address] [id number] [place] [address]- 8882 Jan, [facility] [place] [facility] [address] [id number] [place] [address]- 1490 Jan, [facility] [place] [facility] [address] [id number] [place] [address]- 6094 Jan, [facility] [place] [facility] [address] [id number] [place] [address]- 7662 Jan, [facility] [place] [facility] [address] [id number] [place] [address]- 4359 Jan, [facility] [place] [facility] [address] [id number] [place] [address]- 7206 Jan, [facility] [place] [facility] [address] [id number] [place] [address]- 3962 Dec, [facility] [place] [facility] [address] [id number] [place] [address]- 8334 Dec, [facility] [place] [facility] [address] [id number] [place] [address]- 2311 Dec, [facility] [place] [facility] [address] [id number] [place] [address]- 2441 Dec, [facility] [place] [facility] [address] [id number] [place] [address]- 4191 Dec, [facility] [place] [facility] [address] [id number] [place] [address]- 5448 Dec, [facility] [place] [facility] [address] [id number] [place] [address]- 6256 Dec, [facility] [place] [facility] [address] [id number] [place] [address]- 3897 Dec, [facility] [place] [facility] [address] [id number] [place] [address]- 2971 Dec, [facility] [place] [facility] [address] [id number] [place] [address]- 5392 Dec, [facility] [place] [facility] [address] [id number] [place] [address]- 6987 Dec, [facility] [place] [facility] [address] [id number] [place] [address]- 4992 Dec, [facility] [place] [facility] [address] [id number] [place] [address]- 6139 Dec, [facility] [place] [facility] [address] [id number] [place] [address]- 1261 Dec, [facility] [place] [facility] [address] [id number] [place] [address]- 4382 Dec, [facility] [place] [facility] [address] [id number] [place] [address]- 2359 Dec, [facility] [place] [facility] [address] [id number] [place] [address]- 5938 October, [facility] [place] [facility] [address] [id number] [place] [address]- 0351 October, [facility] [place] [facility] [address] [id number] [place] [address]- 1534 October, [facility] [place] [facility] [address] [id number] [place] [address]- 9118 October, [facility] [place] [facility] [address] [id number] [place] [address]- 3799 October, [facility] [place] [facility] [address] [id number] [place] [address]- 4061 October, [facility] [place] [facility] [address] [id number] [place] [address]- 5318 Oct, [facility] [place] [facility] [address] [id number] [place] [address]- 6896 Oct, [facility] [place] [facility] [address] [id number] [place] [address]- 6032 Oct, [facility] [place] [facility] [address] [id number] [place] [address]- 4929 Oct, [facility] [place] [facility] [address] [id number] [place] [address]- 7367 Oct, [facility] [place] [facility] [address] [id number], [place] [address] 6586 Oct, [facility] [address] [id number] [place] [address]- 0417 Aug, [facility] [place] [facility] [address] [id number] [place] [address] Aug, [facility] [address] [id number] [place] [address]- 8306 Aug, [facility] [place] [facility] [address] [id number] [place] [address]- 0089 Aug, [facility] [address] [id number] [place] [address]- 1057 Jul, [facility] [address] [id number] [place] [address]- 1815 Jul, [facility] [address] [id number] [place] [address]- 9422 Jul, [facility] [place] [facility] [address] [id number] [place] [address]- 9900 Jul, [facility] [address] [id number] [place] [address]- 6445 Jun, [facility] [place] [facility] [address] [id number] [place] [address]- 5978 31 Jun, 2013 [facility] [place] [facility] [address] [id number] [place] [address]- 1119 24 Jun, 2013 [facility] [place] [facility] [address] [id number] [place] [address]- 4381 24 Jun, 2013 [facility] [place] [facility] [address] [id number] [place] [address] 20 Jun, 2013 [facility] [place] [facility] [address] [id number] [place] 6198 18 Jun, 2013 [facility] [place] [facility] [address] [id number] [place] 9505 18 Jun, 2013 [facility] [place] [facility] [address] [id number] [place] [address]- 8696 Jun, [facility] [address] [id number] [place] [address]- 2630 Jun, [facility] [place] [facility] [address] [id number] [place] [address]- 1874 Jun, [facility] [address] [id number] [place] [address]- 3344 Jun, [facility] [place] [facility] [address] [id number] [place] [address]- 3695 May, [facility] [address] [id number] [place] [address]- 3014 May, [facility] [address] [id number] [place] [address]- 6662 May, [facility] [address] [id number] [place] [address]- 3476 May, [facility] [address] [id number] [place] [address]- 8491 May, [facility] [place] [facility] [address] [id number] [place] [address]- 1729 May, [facility] [address] [id number] [place] [address]- 8895 May, [facility] [place] [facility] [address] [id number] [place] [address]- 9541 Apr, [facility] [place] [facility] [address] [id number] [place] [address]- 0724 Apr, [facility] [place] [facility] [address] [id number] [place] [address]- 7314 Apr, [facility] [place] [facility] [address] [id number] [place] [address]- 2546 Apr, [facility] [place] [facility] [address] [id number] [place] [address]- 2379 Mar, [facility] [place] [facility] [address] [id number] [place] [address]- 8606 Mar, 2012 [facility] [place] [facility] [address] [id number] [place] [address]- 1474 Mar, [facility] [place] [facility] [address] [id number] [place] [address]- 2921 Mar, 2012 [facility] [place] [facility] [address] [id number] [place] [address]- 4353 Mar, [facility] [place] [facility] [address] [id number] [place] [address]- 6900 Mar, [facility] [place] [facility] [address] [id number] [place] [address]- 9883 Jan, [facility] [place] [facility] [address] [id number] [place] [address]- 4681 Jan, [facility] [place] [facility] [address] [id number] [place] [address]- 8268 Jan, [facility] [place] [facility] [address] [id number] [place] [address]- 8190 Jan, [facility] [place] [facility] [address] [id number] [place] [address]- 8345 Jan, [facility] [place] [facility] [address] [id number] [place] [address]- 9813 Dec, [facility] [place] [facility] [address] [id number] [place] [address]- 3054 Dec, [facility] [place] [facility] [address] [id number] [place] [address]- 3092 Dec, [facility] [place] [facility] [address] [id number] [place] [address]- 4852 Dec, [facility] [place] [facility] [address] [id number] [place] [address]- 3895 Dec, [facility] [place] [facility] [address] [id number] [place] [address]- 5092 Dec, [facility] [address] [id number] [place] [address]- 0198 Dec, [facility] [address] [id number] [place] [address]- 2224 Dec, [facility] [address] [id number] [place] [address]- 3692 October, [facility] [address] [id number] [place] [address]- 4579 October, [facility] [address] [id number] [place] [address]- 5320 October, [facility] [address] [id number] [place] [address]- 5966 Oct, [facility] [address] [id number] [place] [address]- 6374 Oct, [facility] [address] [id number] [place] [address]- 7148 Oct, [facility] [address] [id number] [place] [address]- 7428 Oct, [facility] [address] [id number] [place] [address]- 4696 Aug, [facility] [address] [id number] [place] [address]- 5820 Aug, [facility] [place] [facility] [address] [id number] [place] [address]- 7438 05 Aug, 2012 [facility] [address] [id number] [place] [address]- 5275 Jul, [facility] [place] [facility] [address] [id number] [place] [address]- 2053 May, [facility] [address] [id number] [place] [address]- 2586 May, [facility] [place] [facility] [address] [id number] [place] [address]- 4599 Apr, [facility] [place] [facility] [address] [id number] [place] [address]- 6537 Apr, [facility] [place] [facility] [address] [id number] [place] [address]- 6246 Apr, [facility] [place] [facility] [address] [id number] [place] [address]- 3167 Apr, [facility] [place] [facility] [address] [id number] [place] [address]- 3252 Apr, [facility] [place] [facility] [address] [id number] [place] [address]- 9402 Apr, [facility] [place] [facility] [address] [id number] [place] [address]- 0485 Apr, [facility] [place] [facility] [address] [id number] [place] [address]- 3171 Apr, [facility] [place] [facility] [address] [id number] [place] [address]- 5993 Apr, [facility] [place] [facility] [address] [id number] [place] [address]- 2861 Apr, [facility] [place] [facility] [address] [id number] [place] [address]- 5737 Apr, [facility] [place] [facility] [address] [id number] [place] [address]- 5463 Apr, [facility] [place] [facility] [address] [id number] [place] [address]- 0714 Mar, [facility] [place] [facility] [address] [id number] [place] [address]- 4076 Jan, [facility] [place] [facility] [address] [id number] [place] [address] 2546 Dec, [facility] [place] [facility] [address] [id number] [place] [address]- 3915 October, [facility] [address] [id number] [place] [address]- 8494 Oct, [facility] [place] [facility] [address] [id number] [place] [address]- 7416 Oct, [facility] [place] [facility] [address] [id number] [place] [address]- 0225 Oct, [facility] [place] [facility] [address] [id number] [place] [address]- 5195 Aug, [facility] [place] [facility] [address] [id number] [place] [address]- 2444 Aug, [facility] [place] [facility] [address] [id number] [place] [address]- 8194 29 Aug, 2011 [facility] [place] [facility] [address] [id number] [place] [address]- 0248 16 Aug, 2011 [facility] [place] [facility] [address] [id number] [place] [address]- 6375 15 Aug, 2011 [facility] [place] [facility] [address] [id number] [place] [address]- 7936 Aug, [facility] [place] [facility] [address] [id number] [place] [address]- 3290 Jun, [facility] [place] [facility] [address] [id number] [place] [address]- 3514 Apr, [facility] [place] [facility] [address] [id number] [place] [address]- 8589 Jun, [facility] [place] [facility] [address] [id number] [place] [address]- 1574 Jun, [facility] [place] [facility] [address] [facility] [id number] [place] [address]- 9771 May, [facility] [place] [facility] [address] [id number] [place] [address]- 1093 May, [facility] [place] [facility] [address] [facility] [id number] [place] [address]- 9700 15 Apr, 2009 [facility] [address] [facility] [id number] [place] [address]- 5703 13 Apr, 2009 IMMUNIZATIONS No Known Immunizations SOCIAL HISTORY Never Assessed REASON FOR VISIT Allergy injection(s) patricia keith PLAN OF CARE VITAL SIGNS MEDICATIONS Unknown Medications RESULTS No Results PROCEDURES Procedure Date Ordered Result Body Site IMMUNOTHERAPY, 2 OR MORE INJECTIONS 2018-05-31 N/A IMMUNOTHERAPY INJECTIONS May 31, 2018 INSTRUCTIONS MEDICATIONS ADMINISTERED No Known Medications MEDICAL (GENERAL) HISTORY Type Description Date Medical History Hypothyroid Medical History Asthma Medical History Migraine Headaches Medical History Depression Medical History ADHD Medical History GERD Medical History Allergic Rhinitis Medical History PCOS Surgical History Left wrist plate 2002 Surgical History 2003 Surgical History 2009 Surgical History EGD 2012 Surgical History Hiatal Hernia Repair and Fundoplication 2013 Surgical History 2014 Surgical History Wound Dehisance 2014 Hospitalization History see above surgeries Hospitalization History Anaphylactic shock-[facility] 08/23/16
[2018-07-18] MEDS ORDERED: LACTATED RINGERS 1,000 ML IV STA (07:07)
--- OUTSIDE RECORDS SUMMARY | 2018-07-18 07:08 | XMS REPORT ---
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 Industrial Machine Operator Name Role Phone SUKHDEV CARVER Unavailable PROBLEMS Type Condition ICD9-CM Code RCP03-ZL Code Onset Dates Condition Status SNOMED Code Problem Migraine with aura and without status migrainosus, not intractable G43.109 Active 5701024 Problem PCOS (polycystic ovarian syndrome) E28.2 Active 31156432 Problem Uncomplicated severe persistent asthma J45.50 Active 002858771 Problem Severe persistent asthma with exacerbation J45.51 Active 533207311 Problem Other elevated white blood cell (WBC) count D72.828 Active 649697056 Problem Multiple food allergies Z91.018 Active 111947072 Problem Pure hypercholesterolemia E78.00 Active 677049101 Problem Current chronic use of inhaled steroid Z79.51 Active 275453415 Problem Asthma exacerbation J45.901 Active 372624198 Problem ADD (attention deficit disorder) F90.0 Active 833585996 Problem Allergic rhinitis due to pollen J30.1 Active 21660918 Problem Vitamin D deficiency E55.9 Active 21554556 Problem Major depressive disorder, recurrent episode, mild F33.0 Active 723027613 Problem Acquired hypothyroidism E03.9 Active 982779711 Problem Gastroesophageal reflux disease without esophagitis K21.9 Active 546871768 ALLERGIES No Information ENCOUNTERS Encounter Location Date Diagnosis [facility] [id number] [address] May, [facility] [id number] [place] [address] 19443- 8280 May, Allergic rhinitis due to pollen J30.1 [facility] [id number] [address] May, Sore throat J02.9 and Strep pharyngitis J02.0 [address] [place] [address] 18404- 6022 May, Allergic rhinitis due to pollen J30.1 [place] [id number] [place] [address] 93756- 5152 Apr, Encounter for immunization Z23 [facility] [id number] [place] [address] 52761- 6957 Apr, Recurrent infections B99.9 [place] [address] 48241- 5954 Apr, Other elevated white blood cell (WBC) count D72.828 ; ADD ( attention deficit disorder) F90.0 ; Recurrent infections B99.9 and Uncomplicated severe persistent asthma J45.50 [place] [address] 12521- 1410 Apr, ADD (attention deficit disorder) F90.0 [place] [id number] [place] [address] 40587- 0518 Mar, Allergic rhinitis due to pollen J30.1 [place] [address] 50830- 2568 Mar, Severe persistent asthma with exacerbation J45.51 and Haemophilus infection A49.2 [place] [id number] [place] [address] 18467- 1980 Mar, [place] [id number] [place] [address] 04170- 9387 Mar, Multiple food allergies Z91.018 [place] [id number] [place] [address] 87695- 8017 Jan, Allergic rhinitis due to pollen J30.1 [place] [id number] [place] [address] 44977- 8355 Jan, [place] [id number] [place] [address] 40263- 0634 Jan, Allergic reaction, initial encounter T78.40XA [facility] [id number] [place] [address] 37213- 8699 Dec, Allergic rhinitis due to pollen J30.1 [facility] [id number] [place] [address] 79386- 7989 Dec, [facility] [id number] [place] [address] 88700- 9113 Dec, Allergic rhinitis due to pollen J30.1 [facility] [id number] [place] [address] 64904- 0602 Dec, ADD (attention deficit disorder) F90.0 [place] [address] 43532- 5640 Dec, ADD (attention deficit disorder) F90.0 and Uncomplicated severe persistent asthma J45.50 [place] [address] 62928- 4807 Dec, Allergic rhinitis due to pollen J30.1 [facility] [id number] [place] [address] 44548- 8299 Dec, [facility] [id number] [place] [address] 44439- 4297 October, Allergic rhinitis due to pollen J30.1 [facility] [id number] [place] [address] 16596- 5486 October, Allergic rhinitis due to pollen J30.1 [facility] [id number] [place] [address] 61373- 0937 Oct, [facility] [id number] [place] [address] 25440- 3405 Oct, Allergic rhinitis due to pollen J30.1 [facility] [id number] [place] [address] 64684- 5355 Oct, [facility] [id number] [place] [address] 64440- 6686 Oct, Allergic rhinitis due to pollen J30.1 [place] [id number] [place] [address] 01734- 5497 Oct, Severe persistent asthma with exacerbation J45.51 and Pneumonia due to Haemophilus influenzae, unspecified laterality, unspecified part of lung J14 [place] [address] 68928- 9107 Oct, ADD (attention deficit disorder) F90.0 [place] [address] 58949- 8807 Aug, Haemophilus influenzae infection A49.[address] 97320- 1583 Aug, Cough productive of purulent sputum R05 [address] [address] 88877- 1040 Aug, [place] [address] 87506- 6988 Aug, Pulmonary congestion R09.89 [place] [address] 72475- 4443 Aug, Severe persistent asthma with exacerbation J45.51 ; Hiatal hernia K44.9 and Gastroesophageal reflux disease without esophagitis K21.9 [address] [address] 26064- 0415 Aug, Other elevated white blood cell (WBC) count D72.828 [place] [address] 32811- 5098 Aug, Uncomplicated severe persistent asthma J45.[address] 48489- 7230 Aug, Pure hypercholesterolemia E78.00 ; Uncomplicated severe persistent asthma J45.50 and Acquired hypothyroidism E03.[address] 93146- 1379 Aug, Acquired hypothyroidism E03.9 ; Pure hypercholesterolemia E78.00 and Uncomplicated severe persistent asthma J45.50 [address] [address] 13032- 1433 Aug, Allergic rhinitis due to pollen J30.1 [address] [address] 19297- 7636 Aug, Allergic rhinitis due to pollen J30.1 [address] [place] [address] 91662- 1165 Aug, [address] [id number] Jul, Pharyngitis, unspecified etiology J02.9 and Lymphadenopathy R59.1 [place] [address] 65538- 0784 Jul, ADD (attention deficit disorder) F90.0 [address] [address] 57097- 5587 Jul, Allergic rhinitis due to pollen J30.1 [address] [address] 54199- 2283 Jul, Dental examination Z01.20 [address] [address] 34221- 2755 Jun, Cough productive of purulent sputum R05 [address] [address] 70858- 7394 Jun, Allergic rhinitis due to pollen J30.1 [address] [address] 48271- 7211 Jun, [place] [address] 43861- 5681 Jun, Allergic rhinitis due to pollen J30.1 [place] [address] 35459- 0027 Jun, Allergic rhinitis due to pollen J30.1 [address] [address] [place] [address] 90302- 6988 May, Allergic rhinitis due to pollen J30.1 [address] [address] [place] [address] 68959- 3468 May, Pneumonia due to Haemophilus influenzae, unspecified laterality, unspecified part of lung J14 [address] [id number] [place] [address] 11412- 9209 May, Allergic rhinitis due to pollen J30.1 [address] [id number] [place] [address] 38454- 4663 May, Other adverse food reactions, not elsewhere classified, initial encounter T78.1XXA and Pneumonia due to Haemophilus influenzae, unspecified laterality, unspecified part of lung J14 [address] [id number] [place] [address] 61287- 8459 May, Pneumonia due to Haemophilus influenzae, unspecified laterality, unspecified part of lung J14 [address] [id number] [place] [address] 31942- 3214 May, Multiple food allergies Z91.018 ; Uncomplicated severe persistent asthma J45.50 ; Cough productive of purulent sputum R05 and Uses central nervous system stimulants F15.90 [address] [id number] [place] [address] 25504- 6385 Apr, Allergic rhinitis due to pollen J30.1 [place] [id number] [place] [address] 18275- 5847 Apr, Allergic rhinitis due to pollen J30.1 [place] [id number] [place] [address] 96944- 1562 Apr, Allergic rhinitis due to pollen J30.1 [place] [id number] [place] [address] 20242- 8804 Apr, ADD (attention deficit disorder) F90.0 [address] [address] [place] [address] 4681 28 Mar, 2017 Allergic rhinitis due to pollen J30.1 [address] [id number] [place] [address] 47688- 0785 21 Mar, 2017 Encounter for immunization Z23 [address] [id number] [place] [address] 26514- 6395 19 Mar, 2017 [address] [address] 57997- 8194 14 Mar, 2017 Allergic rhinitis due to pollen J30.1 [place] [id number] [place] [address] 35048- 7239 07 Mar, 2017 Allergic rhinitis due to pollen J30.1 [place] [id number] [place] [address] 88618- 5743 Jan, Allergic rhinitis due to pollen J30.1 [address] [id number] [place] [address] 03474- 7580 Jan, Allergic rhinitis due to pollen J30.1 [address] [id number] [place] [address] 56505- 3629 Dec, Uncomplicated severe persistent asthma J45.50 [address] [id number] [place] [address] 97636- 7332 Dec, Allergic rhinitis due to pollen J30.1 [place] [id number] [place] [address] 51307- 9418 Dec, Allergic rhinitis due to pollen J30.1 [place] [id number] [place] [address] 05776- 5166 Dec, Allergic rhinitis due to pollen J30.1 [address] [id number] [place] [address] 61247- 5697 Dec, ADD (attention deficit disorder) F90.0 [address] [id number] [place] [address] 24479- 7010 Dec, Allergic rhinitis due to pollen J30.1 [address], [place] [address]- 2704 Dec, Visit for TB skin test Z11.1 and Screening for tuberculosis Z11.1 [address] [id number] [place] [address] 17106- 9075 Dec, Uncomplicated severe persistent asthma J45.50 ; Palpitations R00.2 ; Pericardial effusion (noninflammatory) I31.3 and Chest discomfort R07.89 [address] [id number] [place] [address] 73969- 6117 Dec, Allergic rhinitis due to pollen J30.1 [address] [id number] [place] [address] 96154- 8547 Dec, Chronic cough R05 [address] [id number] [place] [address] 67127- 2981 Dec, [place] [id number] [place] [address] 15022- 0394 Dec, Allergic rhinitis due to pollen J30.1 [address] [id number] [place] [address] 34602- 3766 Dec, Allergic rhinitis due to pollen J30.1 [place] [id number] [place] [address] 40593- 1768 Dec, Chronic cough R05 [address] [id number] [place] [address] 05032- 0430 October, Allergic rhinitis due to pollen J30.1 [address] [id number] [place] [address] 55606- 0699 October, Allergic rhinitis due to pollen J30.1 [address] [id number] [place] [address] 27631- 9511 October, [place] [id number] [place] [address] 58978- 8593 October, Asthma exacerbation J45.901 [address] [address] [place] [address] 47059- 9150 October, Asthma exacerbation J45.901 and Current chronic use of inhaled steroid Z79.51 [address] [id number] [place] [address] 56450- 2587 October, Uncomplicated severe persistent asthma J45.50 [address] [id number] [place] [address] 10786- 8526 October, Allergic rhinitis due to pollen J30.1 [address] [id number] [place] [address] 25632- 9391 Oct, [address] [address] 24391- 4915 Oct, Asthma exacerbation J45.901 and Sputum production R05 [address] [address] 80937- 4126 Oct, Asthma exacerbation J45.901 [address] [id number] [place] [address] 87035- 5349 Oct, ADD (attention deficit disorder) F90.0 [address] [id number] [place] [address] 39922- 7591 Oct, ADD (attention deficit disorder) F90.0 [place] [id number] [place] [address] 95859- 0282 Aug, Allergic rhinitis due to pollen J30.1 [address] [id number] [place] [address] 65163- 5809 Aug, Atypical pneumonia J18.9 [address] [id number] [place] [address] 45184- 5958 Aug, Allergic rhinitis due to pollen J30.1 [address] [id number] [place] [address] 10101- 2361 Aug, Acquired hypothyroidism E03.9 [address] [id number] [place] [address] 22066- 9970 Aug, Multiple food allergies Z91.018 ; Elevated blood pressure reading R03.0 and Anaphylaxis, subsequent encounter T78.2XXD [facility] [address] [id number] Aug, [address] [address] 32474- 8318 Aug, Anaphylaxis, initial encounter T78.2XXA [address] [address] 18568- 1970 Aug, Allergic rhinitis due to pollen J30.1 [address] [address] 64722- 4603 Aug, Dental examination Z01.[address] 43976- 3107 Aug, Allergic rhinitis due to pollen J30.1 [address] [address] 82308- 9206 Aug, Acquired hypothyroidism E03.9 and Pure hypercholesterolemia E78.[address] 70721- 1457 Aug, ADD (attention deficit disorder) F90.0 ; Acquired hypothyroidism E03.9 and Pure hypercholesterolemia E78.00 [address] [address] 93307- 0061 Aug, Asthma exacerbation J45.901 [address] [address] 86244- 9671 Jul, Allergic rhinitis due to pollen J30.1 [address] [address] 82959- 3824 Jul, Allergic rhinitis due to pollen J30.1 [address] 95429- 9869 Jul, [facility] [address] [place] [address] 80756- 7512 Jul, Allergic rhinitis due to pollen J30.1 [facility] [id number] [place] [address] 76922- 7508 Jul, Other longterm (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 and ADD ( attention deficit disorder) F90.0 [facility] [id number] [place] [address] 91886- 6351 Jul, Other longterm (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 and ADD ( attention deficit disorder) F90.0 [facility] [id number] [place] [address] 96716- 3544 Jul, [place] [id number] [place] [address] 93841- 5047 Jun, Allergic rhinitis due to pollen J30.1 [facility] [id number] [place] [address] 66905- 2744 Jun, Allergic rhinitis due to pollen J30.1 [facility] [id number] [place] [address] 07515- 2683 Jun, [facility] [id number] [place] [address] 70896- 7540 May, Allergic rhinitis due to pollen J30.1 [facility] [id number] [place] [address] 73184- 8625 May, Allergic rhinitis due to pollen J30.1 [facility] [id number] [place] [address] 37258- 0650 Apr, Allergic rhinitis due to pollen J30.1 [facility] [id number] [place] [address] 53311- 5100 Apr, Allergic rhinitis due to pollen J30.1 [facility] [id number] [place] [address] 73001- 3073 Apr, Encounter for immunization Z23 [facility] [id number] [place] [address] 65861- 2944 Apr, [facility] [id number] [place] [address] 14208- 2619 Mar, Allergic rhinitis due to pollen J30.1 [place] [id number] [place] [address] 76765- 5192 Mar, Multiple allergies Z88.9 [facility] [id number] [place] [address] 99687- 7019 Mar, Candidal vaginitis B37.3 [place] [address] 06391- 6932 Mar, Allergic rhinitis due to pollen J30.1 [place] [id number] [place] [address] 88946- 8129 Jan, Asthma exacerbation J45.901 ; Fatigue, unspecified type R53.83 and Community acquired pneumonia J18.9 [facility] [id number] [place] [address] [id number] Jan, Encounter for dental examination Z01.20 [place] [id number] [place] [address] 23991- 3406 Jan, Allergic rhinitis due to pollen J30.1 [place] [address] [place] [address] 64997- 9540 Dec, Allergic rhinitis due to pollen J30.1 [place] [id number] [place] [address] 92982- 8731 Dec, [place] [id number] [place] [address] 32131- 8010 Dec, Allergic rhinitis due to pollen J30.1 [place] [id number] [place] [address] 70744- 3854 Dec, [facility] [address] 39470- 1344 Dec, [facility] [address], [place] [address]- 4725 Dec, [facility] [id number] [place] [address] 03902- 4488 Dec, Allergic rhinitis due to pollen J30.1 [facility] [id number] [place] [address] 61794- 7626 Dec, [facility] [id number] [place] [address] 16409- 4976 Dec, [facility] [id number] [place] [address] 34090- 4564 Dec, Allergic rhinitis due to pollen J30.1 [facility] [id number] [place] [address] 80255- 1407 October, Allergic rhinitis due to pollen J30.1 [facility] [id number] [place] [address] 22992- 5306 October, Allergic rhinitis due to pollen J30.1 [facility] [id number] [place] [address] 87679- 0946 October, [facility] [id number] [place] [address] 79852- 1895 October, [facility] [address] [place] [address] 10855- 4671 October, ADD (attention deficit disorder) F90.0 ; Major depressive disorder, recurrent episode, mild F33.0 and Uncomplicated severe persistent asthma J45.50 [facility] [address] [place] [address] 10761- 6490 Oct, Allergic rhinitis due to pollen J30.1 [facility] [address] [place] [address] 37536- 6318 Oct, ADD (attention deficit disorder) F90.0 [facility] [id number] [place] [address] 47077- 7127 Oct, Allergic rhinitis due to pollen 477.0 [facility] [address] [place] [address] 58245- 1888 Aug, Allergic rhinitis due to pollen 477.0 [facility] [address] [place] [address] 66750- 8006 Aug, 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 [facility] [id number] [place] [address] 52617- 6014 Aug, [facility] [id number] [place] [address] 88128- 6109 Aug, Allergic rhinitis due to pollen 477.0 [place] [id number] [place] [address] 85580- 6728 Aug, Allergic rhinitis due to pollen 477.0 [facility] [id number] [place] [address] 91650- 4382 Aug, Allergic rhinitis due to pollen 477.0 [facility] [address] [place] [address] 62787- 9640 Aug, Exposure to influenza Z20.828 [facility] [address] [place] [address] [id number] Aug, Encounter for dental examination and cleaning without abnormal findings Z01.20 [facility] [address] [place] [address] 34929- 7177 Aug, Allergic rhinitis due to pollen J30.1 [facility] [id number] [place] [address] [phone] Aug, [place] [address] [place] [id number] [place] [address] 27771- [phone] 04 Aug, 2015 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 [facility] [id number] [place] [address] 83198- 8584 Jul, [facility] [address] [place] [address] [id number] [place] [address] 36046- 4832 Jul, Allergic rhinitis due to pollen 477.0 [place] [address] 80086- 2093 Jul, [place] [address] 22658- 1201 Jul, Allergic rhinitis due to pollen 477.0 [place] [address] 14095- 9614 Jun, ADD (attention deficit disorder) F90.0 ; Acquired hypothyroidism E03.9 ; PCOS (polycystic ovarian syndrome) E28.2 ; Polyarthralgia M25.50 and On stimulant medication Z79.899 [place] [address] [place] [id number] [place] [address] [id number]- 6475 16 Apr, 2015 Encounter for immunization Z23 [place] [address] 25211- 0220 16 Mar, 2015 Allergic rhinitis due to pollen 477.0 [place] [address] [id number] [place] [address] 86950- [phone] Mar, Influenza vaccine administered V04.81 [place] [address] [place] [id number] [place] [address] 94873- 8100 Mar, [place] [address] [place] [id number] [place] [address] 41650- 4977 Jan, Allergic rhinitis due to pollen 477.0 [place] [address] [place] [id number] [place] [address] 27010- 4448 Jan, Allergic rhinitis due to pollen 477.0 [place] [address] 70781- 7462 Jan, Allergic rhinitis due to pollen 477.0 [facility] [address] [id number] [place] [address] [id number] Jan, Dental examination V72.2 [place] [address] [place] [id number] [address] Dec, Allergic rhinitis due to pollen 477.0 [facility] [address] [facility] [id number] [place] [address] October, [facility] [address] [facility] [id number] [place] [address] Oct, [facility] [address] [facility] [id number] [place] [address] Oct, [facility] [address] [facility] [id number] [place] [address] Aug, [facility] [address] [facility] [id number] [place] [address] Aug, [facility] [id number] [address] Aug, [facility] [address] [facility] [id number], [place] [address] Aug, [facility] [address] [id number], [place] [address] Aug, [facility] [address] [id number], [place] [address] Aug, [facility] [address] [id number], [place] [address] Aug, [facility] [address] [facility] [id number], [place] [address] Aug, [facility] [address] [facility] [id number], [place] [address] Jul, [facility] [address] [facility] [id number], [place] [address] Jul, [facility] [address] [facility] [id number], [place] [address] 2416 Jul, [facility] [address] [facility] [id number] [place] [address] Jul, [facility] [place] [facility] [address] [id number] [place] [address]- 6044 Jul, [facility] [place] [facility] [address] [id number] [place] [address]- 9799 Jul, [facility] [place] [facility] [address] [id number] [place] [address]- 9172 Jul, [facility] [place] [facility] [address] [id number] [place] [address]- 6387 Jul, [facility] [place] [facility] [address] [id number] [place] [address]- 8308 Jul, [facility] [place] [facility] [address] [id number] [place] [address]- 9726 Jul, [facility] [place] [facility] [address] [id number] [place] [address]- 1486 Jul, [facility] [place] [facility] [address] [id number] [place] [address]- 9546 Jun, [facility] [place] [facility] [address] [id number] [place] [address]- 2414 Jun, [facility] [place] [facility] [address] [id number] [place] [address]- 2382 Jun, [facility] [place] [facility] [address] [id number] [place] [address]- 4282 Jun, [facility] [place] [facility] [address] [id number] [place] [address]- 2947 Jun, [facility] [place] [facility] [address] [id number] [place] [address]- 0139 Jun, [facility] [place] [facility] [address] [id number] [place] [address]- 4834 May, [facility] [place] [facility] [address] [id number] [place] [address]- 5618 May, [facility] [place] [facility] [address] [id number] [place] [address]- 5132 May, [facility] [place] [facility] [address] [id number] [place] [address]- 9578 May, [facility] [place] [facility] [address] [id number] [place] [address]- 5206 May, [facility] [place] [facility] [address] [id number] [place] [address]- 4846 May, [facility] [place] [facility] [address] [id number] [place] [address]- 5531 Apr, [facility] [place] [facility] [address] [id number] [place] [address]- 3408 Apr, [facility] [place] [facility] [address] [id number] [place] [address]- 1683 Mar, [facility] [place] [facility] [address] [id number] [place] [address]- 1527 30 Mar, 2014 [facility] [place] [facility] [address] [id number] [place] [address]- 9439 30 Mar, 2014 [facility] [place] [facility] [address] [id number] [place] [address]- 0586 30 Mar, 2014 [facility] [place] [facility] [address] [id number] [place] [address]- 0202 Mar, [facility] [place] [facility] [address] [id number] [place] [address]- 5307 Mar, [facility] [place] [facility] [address] [id number] [place] [address]- 0512 Jan, [facility] [place] [facility] [address] [id number] [place] [address]- 1265 Jan, [facility] [place] [facility] [address] [id number] [place] [address]- 5485 Jan, [facility] [place] [facility] [address] [id number] [place] [address]- 5178 Jan, [facility] [place] [facility] [address] [id number] [place] [address]- 6245 Jan, [facility] [place] [facility] [address] [id number] [place] [address]- 5177 Jan, [facility] [place] [facility] [address] [id number] [place] [address]- 6648 Dec, [facility] [place] [facility] [address] [id number] [place] [address]- 9810 Dec, [facility] [place] [facility] [address] [id number] [place] [address]- 7572 Dec, [facility] [place] [facility] [address] [id number] [place] [address]- 6559 Dec, [facility] [place] [facility] [address] [id number] [place] [address]- 2961 Dec, [facility] [place] [facility] [address] [id number] [place] [address]- 0219 Dec, [facility] [place] [facility] [address] [id number] [place] [address]- 9024 Dec, [facility] [place] [facility] [address] [id number] [place] [address]- 9595 Dec, [facility] [place] [facility] [address] [id number] [place] [address]- 6795 Dec, [facility] [place] [facility] [address] [id number] [place] [address]- 5742 Dec, [facility] [place] [facility] [address] [id number] [place] [address]- 0673 Dec, [facility] [place] [facility] [address] [id number] [place] [address]- 0292 Dec, [facility] [place] [facility] [address] [id number] [place] [address]- 9760 Dec, [facility] [place] [facility] [address] [id number] [place] [address]- 2808 Dec, [facility] [address] [id number] [place] [address]- 8487 Dec, [facility] [address] [id number] [place] [address]- 4455 Dec, [facility] [address] [id number] [place] [address]- 3026 October, [facility] [address] [id number] [place] [address]- 5944 October, [facility] [address] [id number] [place] [address]- 5248 October, [facility] [address] [id number] [place] [address]- 0869 October, [facility] [address] [id number] [place] [address]- 2934 October, [facility] [address] [id number] [place] [address]- 2966 October, [facility] [address] [id number] [place] [address]- 1552 Oct, [facility] [address] [id number] [place] [address]- 6214 Oct, [facility] [place] [facility] [address] [id number] [place] [address]- 2672 Oct, [facility] [place] [facility] [address] [id number] [place] [address]- 1848 Oct, [facility] [place] [facility] [address] [id number] [place] [address]- 3922 Oct, [facility] [place] [facility] [address] [id number] [place] [address]- 6353 Oct, [facility] [place] [facility] [address] [id number] [place] [address]- 9998 Aug, [facility] [place] [facility] [address] [id number] [place] [address]- 3384 Aug, [facility] [place] [facility] [address] [id number] [place] [address]- 4029 Aug, [facility] [place] [facility] [address] [id number] [place] [address]- 7560 Aug, [facility] [place] [facility] [address] [id number] [place] [address]- 6227 Jul, [facility] [place] [facility] [address] [id number] [place] [address]- 2384 Jul, [facility] [place] [facility] [address] [id number] [place] [address]- 2566 Jul, [facility] [place] [facility] [address] [id number] [place] [address]- 8630 Jul, [facility] [place] [facility] [address] [id number] [place] [address]- 7042 Jun, [facility] [place] [facility] [address] [id number] [place] [address]- 8729 Jun, [facility] [place] [facility] [address] [id number], [place] [address]- 5610 Jun, [facility] [place] [facility] [address] [id number], [place] [address]- 9587 24 Jun, 2013 [facility] [place] [facility] [address] [id number], [place] [address]- 6506 20 Jun, 2013 [facility] [place] [facility] [address] [id number] [place] [address]- 2795 18 Jun, 2013 [facility] [place] [facility] [address] [id number] [place] [address] Jun, [facility] [place] [facility] [address] [id number], [place] [address]- 9048 09 Jun, 2013 [facility] [place] [facility] [address] [id number], [place] [address]- 1655 Jun, [facility] [place] [facility] [address] [id number] [place] [address]- 8117 Jun, [facility] [place] [facility] [address] [facility] [id number], [place] [address]- 8671 Jun, [facility] [place] [facility] [address] [facility] [id number] [place] [address]- 7815 May, [facility] [place] [facility] [address] [id number], [place] [address]- 4306 May, [facility] [place] [facility] [address] [facility] [id number] [place] [address], [place] [address]- 9308 May, [facility] [place] [facility] [address] [facility] [id number], [place] [address]- 8911 May, [facility] [place] [facility] [id number], [place] [address]- 9287 May, [facility] [place] [facility] [address] [facility] [id number], [place] [address]- 0672 May, [facility] [place] [facility] [address] [id number], [place] [address]- 8119 May, [facility] [place] [facility] [address] [id number], [place] [address]- 8401 Apr, [facility] [place] [facility] [address] [facility] [id number], [place] [address]- 6027 Apr, [facility] [place] [facility] [address] [facility] [id number], [place] [address]- 2605 Apr, [facility] [place] [facility] [address] [facility] [id number], [place] [address]- 1921 Apr, [facility] [place] [facility] [address] [facility] [id number] 4438 27 Mar, 2013 [facility] [place] [facility] [address] [facility] [id number], [place] [address]- 5957 26 Mar, 2013 [facility] [place] [facility] [address] [id number] [place] [address]- 7053 26 Mar, 2013 [facility] [place] [facility] [address] [id number] [place] [address]- 9608 Mar, [facility] [place] [facility] [address] [id number] [place] [address] 2546 04 Mar, 2013 [facility] [place] [facility] [address] [id number] [place] [address] 2546 Mar, [facility] [place] [facility] [address] [id number] [place] [address]- 9530 Jan, [facility] [place] [facility] [address] [id number] [place] [address]- 7465 Jan, [facility] [place] [facility] [address] [id number] [place] [address]- 0947 Jan, [facility] [place] [facility] [address] [id number] [place] [address]- 2981 Jan, [facility] [place] [facility] [address] [id number] [place] [address]- 9764 Jan, [facility] [place] [facility] [address] [id number] [place] [address]- 6806 Dec, [facility] [place] [facility] [address] [id number] [place] [address]- 3112 Dec, [facility] [place] [facility] [address] [id number] [place] [address]- 8839 Dec, [facility] [place] [facility] [address] [id number] [place] [address]- 0605 Dec, [facility] [place] [facility] [address] [id number] [place] [address]- 2617 Dec, [facility] [place] [facility] [address] [id number] [place] [address]- 0086 Dec, [facility] [place] [facility] [address] [id number] [place] [address]- 1776 Dec, [facility] [address] [id number] [place] [address]- 4160 Dec, [facility] [place] [facility] [address] [id number] [place] [address]- 7429 October, [facility] [address] [id number] [place] [address]- 3001 October, [facility] [place] [facility] [address] [id number] [place] [address]- 6578 October, [facility] [address] [id number] [place] [address]- 6939 Oct, [facility] [place] [facility] [address] [id number] [place] [address]- 6340 Oct, [facility] [place] [facility] [address] [id number] [place] [address]- 4564 Oct, [facility] [place] [facility] [address] [id number] [place] [address]- 3573 Oct, [facility] [place] [facility] [address] [id number] [place] [address]- 1968 Aug, [facility] [place] [facility] [address] [id number] [place] [address]- 6592 Aug, [facility] [place] [facility] [address] [id number] [place] [address]- 7136 Aug, [facility] [place] [facility] [address] [id number], [place] [address]- 7066 Jul, [facility] [place] [facility] [address] [id number] [place] [address]- 5359 May, [facility] [place] [facility] [address] [id number] [place] [address]- 2116 May, [facility] [place] [facility] [address] [id number] [place] [address]- 6197 Apr, [facility] [place] [facility] [address] [id number] [place] [address]- 6936 Apr, [facility] [place] [facility] [address] [id number] [place] [address]- 1538 Apr, [facility] [place] [facility] [address] [id number] [place] [address]- 8555 Apr, [facility] [place] [facility] [address] [id number] [place] [address]- 6587 Apr, [facility] [place] [facility] [address] [id number] [place] [address]- 8182 Apr, [facility] [place] [facility] [address] [id number] [place] [address]- 3225 Apr, [facility] [place] [facility] [address] [id number] [place] [address]- 8824 Apr, [facility] [place] [facility] [address] [id number] [place] [address]- 3151 Apr, [facility] [place] [facility] [address] [id number] [place] [address]- 6310 Apr, [facility] [place] [facility] [address] [id number] [place] [address]- 0618 Apr, [facility] [place] [facility] [address] [facility] [id number] [place] [address]- 7705 Apr, [facility] [place] [facility] [address] [id number] [place] [address]- 6665 Mar, [facility] [place] [facility] [address] [id number] [place] [address]- 9103 Jan, [facility] [place] [facility] [address] [id number] [place] [address]- 5164 Dec, [facility] [place] [facility] [address] [id number] [place] [address]- 8566 October, [facility] [place] [facility] [address] [id number] [place] [address]- 0493 Oct, [facility] [place] [facility] [address] [id number] [place] [address]- 6615 Oct, [facility] [place] [facility] [address] [id number] [place] [address]- 1062 Oct, [facility] [place] [facility] [address] [id number] [place] [address]- 0979 Aug, [facility] [place] [facility] [address] [id number] [place] [address]- 7521 Aug, [facility] [place] [facility] [address] [id number] [place] [address]- 5340 Aug, [facility] [place] [facility] [address] [id number] [place] [address]- 1676 Aug, [facility] [place] [facility] [address] [facility] [id number] [place] [address]- 3590 Aug, [facility] [place] [facility] [address] [id number] [place] [address]- 1878 Aug, [facility] [place] [facility] [address] [id number] [place] [address]- 2410 Jun, [facility] [place] [facility] [address] [facility] [id number], [place] [address]- 1200 Apr, [facility] [place] [facility] [address] [id number], [place] [address]- 9708 Jun, [facility] [place] [facility] [address] [id number], [place] [address]- 9377 Jun, [facility] [place] [facility] [address] [id number] [place] [address]- 0486 May, [facility] [place] [facility] [address] [id number], [place] [address]- 8906 May, [facility] [place] [facility] [address] [facility] [id number], [place] [address]- 6557 Apr, [facility] [place] [facility] [address] [id number], [place] [address]- 2546 Apr, IMMUNIZATIONS Vaccine Route Administration Date Status BICILLIN LA/PENICILLIN G BENZATHINE IM Intramuscular May 08, 2018 Administered SOCIAL HISTORY Never Assessed REASON FOR VISIT nurse visit, dov keith rn PLAN OF CARE Activity Details Follow Up prn Reason: VITAL SIGNS MEDICATIONS Unknown Medications RESULTS Name Result Date Reference Range STREP A (IN HOUSE) 2018-05-08 STREP A positive Control + Lot # [id number] Exp date 11/30/2018 PROCEDURES Procedure Date Ordered Result Body Site STREP A ASSAY W/OPTIC May 08, 2018 BICILLIN LA/PENICILLIN G BENZATHINE May 08, 2018 THER/PROPH/DIAG INJ, SC/IM May 08, 2018 INSTRUCTIONS MEDICATIONS ADMINISTERED No Known Medications MEDICAL (GENERAL) HISTORY Type Description Date Medical History Hypothyroid Medical History Asthma Medical History Migraine Headaches Medical History Depression Medical History ADHD Medical History GERD Medical History Allergic Rhinitis Medical History PCOS Surgical History Left wrist plate 2002 Surgical History 2003 Surgical History 2010 Surgical History EGD 2011 Surgical History Hiatal Hernia Repair and Fundoplication 2013 Surgical History 2014 Surgical History Wound Dehisance 2014 Hospitalization History see above surgeries Hospitalization History [facility]actic shock[facility] 08/23/16
--- OUTSIDE RECORDS SUMMARY | 2018-07-18 07:08 | XMS REPORT ---
Author Author BRANDY SAGAR [facility] Address [address] [place] [address] Care Team Providers Care Credit Authorizer Name Role Phone BRANDYTEZ HOYTHANY Unavailable PROBLEMS Type Condition ICD9-CM Code ZPL34-YF Code Onset Dates Condition Status SNOMED Code Problem Migraine with aura and without status migrainosus, not intractable G43.109 Active 3641317 Problem PCOS (polycystic ovarian syndrome) E28.2 Active 01892710 Problem Uncomplicated severe persistent asthma J45.50 Active 771864156 Problem Severe persistent asthma with exacerbation J45.51 Active 519969711 Problem Other elevated white blood cell (WBC) count D72.828 Active 146748596 Problem Multiple food allergies Z91.018 Active 829197978 Problem Pure hypercholesterolemia E78.00 Active 454681455 Problem Current chronic use of inhaled steroid Z79.51 Active 794660968 Problem Asthma exacerbation J45.901 Active 636032443 Problem ADD (attention deficit disorder) F90.0 Active 318112825 Problem Allergic rhinitis due to pollen J30.1 Active 54878024 Problem Vitamin D deficiency E55.9 Active 43234201 Problem Major depressive disorder, recurrent episode, mild F33.0 Active 884281864 Problem Acquired hypothyroidism E03.9 Active 221439258 Problem Gastroesophageal reflux disease without esophagitis K21.9 Active 823514208 ALLERGIES No Information ENCOUNTERS Encounter Location Date Diagnosis [facility] [id number] [address] May, Allergic rhinitis due to pollen J30.1 [facility] [address], [place] [address] May, Sore throat J02.9 and Strep pharyngitis J02.0 [facility] [id number], [place] [address] May, Allergic rhinitis due to pollen J30.1 [address] [address] [place] [address] 65156- 5272 Apr, Encounter for immunization Z23 [place] [id number] [place] [address] 66199- 1863 Apr, Recurrent infections B99.[address] 69391- 1264 Apr, Other elevated white blood cell (WBC) count D72.828 ; ADD ( attention deficit disorder) F90.0 ; Recurrent infections B99.9 and Uncomplicated severe persistent asthma J45.[address] 19388- 4580 Apr, ADD (attention deficit disorder) F90.[address] 12167- 8535 Mar, Allergic rhinitis due to pollen J30.1 [facility] [id number] [place] [address] 72870- 2823 Mar, Severe persistent asthma with exacerbation J45.51 and Haemophilus infection A49.2 [id number] [place] [address] 09919- 3759 Mar, [address] [address]- 1536 Mar, Multiple food allergies Z91.018 [place] [id number] [place] [address] 46282- 9970 Jan, Allergic rhinitis due to pollen J30.1 [place] [id number] [place] [address] 29832- 6421 Jan, [address] 21082- 1130 Jan, Allergic reaction, initial encounter T78.40XA [address] 64023- 5685 Dec, Allergic rhinitis due to pollen J30.1 [facility] [id number] [place] [address] 93575- 8868 Dec, [facility] [id number] [place] [address] 38892- 3756 Dec, Allergic rhinitis due to pollen J30.1 [facility] [id number] [place] [address] 34432- 1732 Dec, ADD (attention deficit disorder) F90.0 [facility] [id number] [place] [address] 48020- 9367 Dec, ADD (attention deficit disorder) F90.0 and Uncomplicated severe persistent asthma J45.50 [facility] [id number] [place] [address] 89709- 0537 Dec, Allergic rhinitis due to pollen J30.1 [facility] [id number] [place] [address] 06345- 9900 Dec, [facility] [id number] [place] [address] 92936- 4261 October, Allergic rhinitis due to pollen J30.1 [facility] [id number] [place] [address] 71327- 3032 October, Allergic rhinitis due to pollen J30.1 [facility] [id number] [place] [address] 04739- 7987 Oct, [facility] [id number] [place] [address] 04362- 4679 Oct, Allergic rhinitis due to pollen J30.1 [facility] [id number] [place] [address] 45254- 2938 Oct, [facility] [id number] [place] [address] 59260- 0765 Oct, Allergic rhinitis due to pollen J30.1 [facility] [id number] [place] [address] 37388- 4478 Oct, Severe persistent asthma with exacerbation J45.51 and Pneumonia due to Haemophilus influenzae, unspecified laterality, unspecified part of lung J14 [address] [id number] [place] [address] 37007- 0809 Oct, ADD (attention deficit disorder) F90.0 [place] [address] 96196- 0116 Aug, Haemophilus influenzae infection A49.2 [place] [id number] [place] [address] 17003- 4988 Aug, Cough productive of purulent sputum R05 [address] [address] 28566- 8850 Aug, [place] [address] 51704- 2249 Aug, Pulmonary congestion R09.89 [place] [address] 11340- 2980 Aug, Severe persistent asthma with exacerbation J45.51 ; Hiatal hernia K44.9 and Gastroesophageal reflux disease without esophagitis K21.9 [place] [id number] [place] [address] 13808- 5431 Aug, Other elevated white blood cell (WBC) count D72.828 [place] [facility] [id number] [place] [address] 70592- 6433 Aug, Uncomplicated severe persistent asthma J45.50 [place] [id number] [place] [address] 53657- 4889 Aug, Pure hypercholesterolemia E78.00 ; Uncomplicated severe persistent asthma J45.50 and Acquired hypothyroidism E03.9 [place] [id number] [place] [address] 55205- 5300 Aug, Acquired hypothyroidism E03.9 ; Pure hypercholesterolemia E78.00 and Uncomplicated severe persistent asthma J45.50 [place] [address] 87228- 5853 15 Aug, 2017 Allergic rhinitis due to pollen J30.1 [place] [address] 30718- 5777 Aug, Allergic rhinitis due to pollen J30.1 [address] [address] 20498- 9067 Aug, [place] [address] [id number] Jul, Pharyngitis, unspecified etiology J02.9 and Lymphadenopathy R59.[address] 20209- 9034 Jul, ADD (attention deficit disorder) F90.[address] 92743- 8285 Jul, Allergic rhinitis due to pollen J30.1 [place] [address] 81554- 8090 Jul, Dental examination Z01.[address] 50463- 0247 Jun, Cough productive of purulent sputum R05 [address] 98067- 4896 Jun, Allergic rhinitis due to pollen J30.1 [facility] [facility] [id number] [place] [address] 83577- 7827 Jun, [place] [address] 44228- 7750 Jun, Allergic rhinitis due to pollen J30.1 [place] [address] 96082- 6307 Jun, Allergic rhinitis due to pollen J30.1 [place] [address] 75741- 8124 May, Allergic rhinitis due to pollen J30.1 [place] [address] [place] [address] 63222- 7687 May, Pneumonia due to Haemophilus influenzae, unspecified laterality, unspecified part of lung J14 [place] [id number] [place] [address] 77354- 0579 May, Allergic rhinitis due to pollen J30.1 [place] [id number] [place] [address] 24862- 8389 May, Other adverse food reactions, not elsewhere classified, initial encounter T78.1XXA and Pneumonia due to Haemophilus influenzae, unspecified laterality, unspecified part of lung J14 [place] [id number] [place] [address] 35685- 2485 May, Pneumonia due to Haemophilus influenzae, unspecified laterality, unspecified part of lung J14 [place] [id number] [place] [address] 13279- 9817 May, Multiple food allergies Z91.018 ; Uncomplicated severe persistent asthma J45.50 ; Cough productive of purulent sputum R05 and Uses central nervous system stimulants F15.90 [place] [id number] [place] [address] 80888- 7229 Apr, Allergic rhinitis due to pollen J30.1 [place] [id number] [place] [address] 44123- 2424 Apr, Allergic rhinitis due to pollen J30.1 [place] [id number] [place] [address] 39587- 3031 Apr, Allergic rhinitis due to pollen J30.1 [place] [address] 19784- 0031 Apr, ADD (attention deficit disorder) F90.0 [place] [id number] [place] [address] 40267- 4264 Mar, Allergic rhinitis due to pollen J30.1 [place] [id number] [place] [address] 36128- 6056 21 Mar, 2017 Encounter for immunization Z23 [address] [address] 86434- 8260 19 Mar, 2017 [place] [id number] [place] [address] 05169- 3364 14 Mar, 2017 Allergic rhinitis due to pollen J30.1 [place] [id number] [place] [address] 82047- 6686 07 Mar, 2017 Allergic rhinitis due to pollen J30.1 [place] [address] 43204- 1699 Jan, Allergic rhinitis due to pollen J30.1 [address] [address] 28232- 0444 Jan, Allergic rhinitis due to pollen J30.1 [place] [address] 93796- 1534 Dec, Uncomplicated severe persistent asthma J45.50 [place] [address] 24691- 8014 Dec, Allergic rhinitis due to pollen J30.1 [place] [id number] [place] [address] 60381- 1421 Dec, Allergic rhinitis due to pollen J30.1 [place] [id number] [place] [address] 51919- 6610 Dec, Allergic rhinitis due to pollen J30.1 [place] [id number] [place] [address] 60187- 7183 Dec, ADD (attention deficit disorder) F90.0 [place] [id number] [place] [address] 00477- 0433 Dec, Allergic rhinitis due to pollen J30.1 [address] [address] 03456- 3810 Dec, Visit for TB skin test Z11.1 and Screening for tuberculosis Z11.1 [place] [id number] [place] [address] 45501- 1704 Dec, Uncomplicated severe persistent asthma J45.50 ; Palpitations R00.2 ; Pericardial effusion (noninflammatory) I31.3 and Chest discomfort R07.89 [address] [id number] [place] [address] 05497- 2555 Dec, Allergic rhinitis due to pollen J30.1 [place] [id number] [place] [address] 45040- 4808 Dec, Chronic cough R05 [address] [address] 81823- 7455 Dec, [place] [id number] [place] [address] 67374- 7555 Dec, Allergic rhinitis due to pollen J30.1 [place] [id number] [place] [address] 49756- 7335 Dec, Allergic rhinitis due to pollen J30.1 [place] [id number] [place] [address] 80410- 9624 Dec, Chronic cough R05 [address] [id number] [place] [address] 88220- 4481 October, Allergic rhinitis due to pollen J30.1 [place] [id number] [place] [address] 91265- 4819 October, Allergic rhinitis due to pollen J30.1 [place] [id number] [place] [address] 59245- 4632 October, [place] [id number] [place] [address] 53507- 2096 October, Asthma exacerbation J45.901 [address] [id number] [place] [address] 49496- 6261 October, Asthma exacerbation J45.901 and Current chronic use of inhaled steroid Z79.51 [place] [id number] [place] [address] 23636- 1014 October, Uncomplicated severe persistent asthma J45.50 [place] [id number] [place] [address] 26715- 7049 October, Allergic rhinitis due to pollen J30.1 [address] [address] 26847- 0445 Oct, [place] [address] 14915- 6295 Oct, Asthma exacerbation J45.901 and Sputum production R05 [address] 11788- 2487 Oct, Asthma exacerbation J45.901 [address] [address] 21877- 0231 Oct, ADD (attention deficit disorder) F90.0 [id number] [place] [address] 92539- 9916 Oct, ADD (attention deficit disorder) F90.0 [place] [id number] [place] [address] 36741- 5583 Aug, Allergic rhinitis due to pollen J30.1 [place] [id number] [place] [address] 90249- 4699 Aug, Atypical pneumonia J18.9 [place] [id number] [place] [address] 99776- 4002 Aug, Allergic rhinitis due to pollen J30.1 [place] [id number] [place] [address] 48932- 1181 Aug, Acquired hypothyroidism E03.9 [id number] [place] [address] 21396- 2957 Aug, Multiple food allergies Z91.018 ; Elevated blood pressure reading R03.0 and Anaphylaxis, subsequent encounter T78.2XXD [facility] [address] [id number] Aug, [place] [address] 19229- 9251 Aug, Anaphylaxis, initial encounter T78.2XXA [place] [address] 80833- 5532 Aug, Allergic rhinitis due to pollen J30.1 [address] [address] 53316- 4033 Aug, Dental examination Z01.20 [address] [address] 88101- 4500 Aug, Allergic rhinitis due to pollen J30.1 [address] [address] 47198- 5648 Aug, Acquired hypothyroidism E03.9 and Pure hypercholesterolemia E78.00 [place] [address] 25005- 7462 Aug, ADD (attention deficit disorder) F90.0 ; Acquired hypothyroidism E03.9 and Pure hypercholesterolemia E78.00 [place] [id number] [place] [address] 32327- 6560 Aug, Asthma exacerbation J45.901 [place] [address] 81877- 4092 Jul, Allergic rhinitis due to pollen J30.1 [address] [address] 60358- 3113 Jul, Allergic rhinitis due to pollen J30.1 [address] [address] 79656- 1383 Jul, [place] [address] 79044- 6478 Jul, Allergic rhinitis due to pollen J30.1 [facility] [address], [place] [address]- 9904 Jul, 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 and ADD ( attention deficit disorder) F90.0 [facility] [id number] [place] [address] 36808- 7604 Jul, Other group home (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 and ADD ( attention deficit disorder) F90.0 [facility] [id number] [place] [address] 71495- 0092 Jul, [place] [id number] [place] [address] 49659- 6816 Jun, Allergic rhinitis due to pollen J30.1 [place] [id number] [place] [address] 25959- 0856 Jun, Allergic rhinitis due to pollen J30.1 [facility] [id number] [place] [address] 99434- 4244 Jun, [facility] [id number] [place] [address] 81682- 0305 May, Allergic rhinitis due to pollen J30.1 [place] [id number] [place] [address] 70651- 9732 May, Allergic rhinitis due to pollen J30.1 [place] [id number] [place] [address] 67614- 4810 Apr, Allergic rhinitis due to pollen J30.1 [facility] [id number] [place] [address] 48168- 8448 Apr, Allergic rhinitis due to pollen J30.1 [facility] [id number] [place] [address] 70748- 7353 Apr, Encounter for immunization Z23 [facility] [id number] [place] [address] 62859- 8841 Apr, [facility] [address] [place] [address] 61908- 0774 Mar, Allergic rhinitis due to pollen J30.1 [facility] [address] [place] [address] 71609- 0738 Mar, Multiple allergies Z88.9 [facility] [id number] [place] [address] 65137- 9514 Mar, Candidal vaginitis B37.3 [facility] [id number] [place] [address] 87933- 4784 Mar, Allergic rhinitis due to pollen J30.1 [place] [id number] [place] [address] 02313- 0122 Jan, Asthma exacerbation J45.901 ; Fatigue, unspecified type R53.83 and Community acquired pneumonia J18.9 [facility] [id number] [place] [address] [id number] Jan, Encounter for dental examination Z01.20 [facility] [id number] [place] [address] 92139- 2261 Jan, Allergic rhinitis due to pollen J30.1 [facility] [address] [place] [address] 42959- 6969 Dec, Allergic rhinitis due to pollen J30.1 [facility] [address] [place] [address] 21373- 5908 Dec, [facility] [id number] [place] [address] 89109- 4499 Dec, Allergic rhinitis due to pollen J30.1 [facility] [id number] [place] [address] 93244- 2360 Dec, [facility] [id number] [place] [address] 14613- 9850 Dec, [facility] [id number] [place] [address] 12368- 2867 Dec, [facility] [address], [place] [address]- 6441 Dec, Allergic rhinitis due to pollen J30.1 [facility] [address], [place] [address]- 6365 Dec, [facility] [address], [place] [address]- 3504 Dec, [facility] [address], [place] [address]- 3374 Dec, Allergic rhinitis due to pollen J30.1 [facility] [address] [place] [address] 13163- 2164 October, Allergic rhinitis due to pollen J30.1 [facility] [address], [place] [address]- 9105 October, Allergic rhinitis due to pollen J30.1 [facility] [address] [address]- 5628 October, [facility] [address] [place] [address] 54255- 2463 October, [facility] [address], [place] [address]- 4022 October, ADD (attention deficit disorder) F90.0 ; Major depressive disorder, recurrent episode, mild F33.0 and Uncomplicated severe persistent asthma J45.50 [facility] [address], [place] [address]- 3597 Oct, Allergic rhinitis due to pollen J30.1 [facility] [address] [address]- 0644 Oct, ADD (attention deficit disorder) F90.0 [facility] [address], [place] [address]- 4242 Oct, Allergic rhinitis due to pollen 477.0 [facility] [id number] [place] [address] 86366- 9540 Aug, Allergic rhinitis due to pollen 477.0 [facility] [id number] [place] [address] 61329- 4892 Aug, 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 [facility] [id number] [place] [address] 53165- 1098 Aug, [facility] [address] 12467- 9674 Aug, Allergic rhinitis due to pollen 477.0 [place] [id number] [place] [address] 73976- 1891 Aug, Allergic rhinitis due to pollen 477.0 [place] [id number] [place] [address] 43551- 2501 Aug, Allergic rhinitis due to pollen 477.0 [place] [id number] [place] [address] 01679- 7669 Aug, Exposure to influenza Z20.828 [facility] [id number] [place] [address] [id number] Aug, Encounter for dental examination and cleaning without abnormal findings Z01.20 [place] [id number] [place] [address] 35603- 3628 Aug, Allergic rhinitis due to pollen J30.1 [place] [id number] [place] [address] 07600- 6365 Aug, [place] [id number] [place] [address] 93029- 6952 Aug, 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 [place] [id number] [place] [address] 174483- 6027 Jul, [facility] [id number] [place] [address] 93568- 6330 Jul, Allergic rhinitis due to pollen 477.0 [place] [id number] [place] [address] 53031- 8156 Jul, [place] [address] 01401- 1832 Jul, Allergic rhinitis due to pollen 477.0 [facility] [address] 45486- 6028 Jun, ADD (attention deficit disorder) F90.0 ; Acquired hypothyroidism E03.9 ; PCOS (polycystic ovarian syndrome) E28.2 ; Polyarthralgia M25.50 and On stimulant medication Z79.899 [place] [address] 92930- 0204 Apr, Encounter for immunization Z23 [place] [address] 60089- 3356 16 Mar, 2015 Allergic rhinitis due to pollen 477.0 [place] [address] 57089- 3868 Mar, Influenza vaccine administered V04.81 [place] [address] 57733- 1181 Mar, [place] [address] 37712- 0752 Jan, Allergic rhinitis due to pollen 477.0 [place] [address] 83541- 3357 Jan, Allergic rhinitis due to pollen 477.0 [facility] [id number] [place] [address] 66794- 7111 Jan, Allergic rhinitis due to pollen 477.0 [facility] [id number] [place] [address] [id number] Jan, Dental examination V72.2 [facility] [id number] [place] [address] 61316- 9942 Dec, Allergic rhinitis due to pollen 477.0 [facility] [place] [facility] [address] [id number] [place] [address]- 2015 October, [facility] [place] [facility] [address] [id number] [place] [address]- 9663 Oct, [facility] [place] [facility] [address] [id number] [place] [address]- 2235 Oct, [facility] [place] [facility] [address] [id number] [place] [address]- 5753 Aug, [facility] [place] [facility] [address] [id number] [place] [address]- 2723 Aug, [facility] [place] [facility] [address] [id number] [place] [address]- 6879 Aug, [facility] [place] [facility] [address] [facility] [id number] [place] [address]- 0580 Aug, [facility] [place] [facility] [address] [id number] [place] [address]- 3613 Aug, [facility] [place] [facility] [address] [facility] [id number] [place] [address] Aug, [facility] [place] [facility] [address] [facility] [id number] [place] [address] Aug, [facility] [place] [facility] [address] [facility] [id number] [place] [address] Aug, [facility] [place] [facility] [address] [id number] [address] Jul, [facility] [place] [facility] [address] [facility] [id number] [place] [address] Jul, [facility] [place] [facility] [address] [facility] [id number] [place] [address] Jul, [facility] [place] [facility] [address] [facility] [id number] [place] [address] Jul, [facility] [place] [facility] [address] [id number] [place] [address] 08 Jul, 2014 [facility] [place] [facility] [address] [id number] [place] [address] Jul, [facility] [place] [facility] [address] [id number] [place] [address] Jul, [facility] [place] [facility] [address] [id number] [place] [address] Jul, [facility] [place] [facility] [address] [id number] [place] [address] Jul, [facility] [place] [facility] [address] [id number] [place] [address] Jul, [facility] [place] [facility] [address] [id number] [place] [address] 4[address] Jul, [facility] [place] [facility] [address] [id number] [place] [address] Jun, [facility] [place] [facility] [address] [id number] [place] [address] 1402 Jun, [facility] [place] [facility] [address] [id number] [place] [address] 4813 Jun, [facility] [place] [facility] [address] [id number] [place] [address]- 0073 Jun, [facility] [place] [facility] [address] [id number] [place] [address]- 268[address] Jun, [facility] [place] [facility] [address] [id number] [place] [address]- 9096 Jun, [facility] [place] [facility] [address] [id number] [place] [address]- 0432 May, [facility] [place] [facility] [address] [id number] [place] [address]- 0780 May, [facility] [place] [facility] [address] [id number] [place] [address]- 9292 May, [facility] [place] [facility] [address] [id number] [place] [address]- 5298 May, [facility] [place] [facility] [address] [id number] [place] [address]- 7446 May, [facility] [place] [facility] [address] [id number] [place] [address]- 5384 May, [facility] [place] [facility] [address] [id number] [place] [address]- 7830 Apr, [facility] [place] [facility] [address] [id number] [place] [address]- 0981 Apr, [facility] [place] [facility] [address] [id number] [place] [address]- 4336 Mar, [facility] [place] [facility] [address] [id number] [place] [address]- 5937 Mar, [facility] [place] [facility] [address] [id number] [place] [address]- 7635 Mar, [facility] [place] [facility] [address] [id number] [place] [address]- 3751 Mar, [facility] [place] [facility] [address] [id number] [place] [address]- 4699 Mar, [facility] [place] [facility] [address] [id number] [place] [address]- 2402 Mar, [facility] [place] [facility] [address] [id number] [place] [address]- 0048 Jan, [facility] [place] [facility] [address] [id number] [place] [address]- 5307 Jan, [facility] [place] [facility] [address] [id number] [place] [address]- 5082 Jan, [facility] [place] [facility] [address] [id number] [place] [address]- 6308 Jan, [facility] [place] [facility] [address] [id number] [place] [address]- 2050 Jan, [facility] [place] [facility] [address] [id number] [place] [address] Jan, [facility] [place] [facility] [address] [id number] [place] [address]- 5275 Dec, [facility] [place] [facility] [address] [id number] [place] [address]- 4073 Dec, [facility] [place] [facility] [address] [id number] [place] [address]- 4629 Dec, [facility] [place] [facility] [address] [id number] [place] [address]- 7050 Dec, [facility] [place] [facility] [address] [id number] [place] [address]- 0507 Dec, [facility] [place] [facility] [address] [id number] [place] [address]- 4776 Dec, [facility] [place] [facility] [address] [id number] [place] [address]- 4340 Dec, [facility] [place] [facility] [address] [id number] [place] [address]- 3072 Dec, [facility] [place] [facility] [address] [id number] [place] [address]- 9663 Dec, [facility] [place] [facility] [address] [id number] [place] [address]- 2488 Dec, [facility] [place] [facility] [address] [id number] [place] [address]- 5143 Dec, [facility] [place] [facility] [address] [id number] [place] [address]- 8127 Dec, [facility] [place] [facility] [address] [id number] [place] [address]- 8673 Dec, [facility] [place] [facility] [address] [id number] [place] [address]- 7103 Dec, [facility] [place] [facility] [address] [id number] [place] [address]- 8448 Dec, [facility] [address] [id number] [place] [address]- 3012 Dec, [facility] [address] [id number] [place] [address]- 6704 October, [facility] [address] [id number] [place] [address]- 9267 October, [facility] [address] [id number] [place] [address]- 7697 October, [facility] [address] [id number] [place] [address]- 2241 October, [facility] [address] [id number] [place] [address]- 8138 October, [facility] [address] [id number] [place] [address]- 8736 October, [facility] [address] [id number] [place] [address]- 3209 Oct, [facility] [address] [id number] [place] [address]- 5076 Oct, [facility] [address] [id number] [place] [address]- 4376 Oct, [facility] [address] [id number] [place] [address]- 5821 Oct, [facility] [address] [id number] [place] [address]- 3341 Oct, [facility] [place] [facility] [address] [id number] [place] [address]- 5163 Oct, [facility] [place] [facility] [address] [id number] [place] [address]- 3778 Aug, [facility] [address] [id number] [place] [address]- 3115 Aug, [facility] [place] [facility] [address] [id number] [place] [address]- [address] Aug, [facility] [place] [facility] [address] [id number] [place] [address]- 8374 Aug, [facility] [place] [facility] [address] [id number] [place] [address]- 8953 Jul, [facility] [place] [facility] [address] [id number] [place] [address]- 8628 Jul, [facility] [place] [facility] [address] [id number] [place] [address]- 7951 Jul, [facility] [place] [facility] [address] [id number] [place] [address]- 9143 Jul, [facility] [place] [facility] [address] [id number] [place] [address]- 8903 Jun, [facility] [place] [facility] [address] [id number] [place] [address]- 2966 Jun, [facility] [place] [facility] [address] [id number] [place] [address]- 0010 Jun, [facility] [place] [facility] [address] [id number], [place] [address]- 7818 Jun, [facility] [place] [facility] [address] [id number][place] [address]- 1234 Jun, [facility] [place] [facility] [address] [id number], [place] [address]- 9073 Jun, [facility] [place] [facility] [address] [id number] [place] [address]- 6022 Jun, [facility] [place] [facility] [address] [id number][place] [address]- 4626 Jun, [facility] [place] [facility] [address] [id number][place] [address]- 0860 Jun, [facility] [place] [facility] [address] [id number], [place] [address]- 9256 Jun, [facility] [place] [facility] [address] [id number] [place] [address]- 9772 Jun, [facility] [place] [facility] [address] [facility] [id number][place] [address]- 3239 May, [facility] [place] [facility] [address] [facility] [id number] [place] [address]- 7449 May, [facility] [place] [facility] [address] [id number][place] [address]- 8697 May, [facility] [place] [facility] [address] [facility] [id number] [place] [address], [place] [address]- 4408 May, [facility] [place] [facility] [address] [facility] [id number] [place] [address]- 4008 May, [facility] [place] [facility] [id number], [place] [address]- 0853 May, [facility] [place] [facility] [address] [facility] [id number], [place] [address]- 2188 May, [facility] [place] [facility] [address] [id number], [place] [address]- 3576 Apr, [facility] [place] [facility] [address] [id number], [place] [address]- 7909 Apr, [facility] [place] [facility] [address] [facility] [id number], [place] [address]- 4186 Apr, [facility] [place] [facility] [address] [facility] [id number], [place] [address]- 5745 Apr, [facility] [place] [facility] [address] [facility] [id number], [place] [address]- 3519 27 Mar, 2013 [facility] [place] [facility] [address] [facility] [id number], [place] [address]- 1917 Mar, [facility] [place] [facility] [address] [id number], [place] [address]- 5376 Mar, [facility] [place] [facility] [address] [id number] [place] [address]- 1591 23 Mar, 2013 [facility] [place] [facility] [address] [id number] [place] [address]- 5240 Mar, [facility] [place] [facility] [address] [id number] [place] [address] 2546 Mar, [facility] [place] [facility] [address] [id number] [place] [address]- 4472 Jan, [facility] [place] [facility] [address] [id number] [place] [address]- 4736 Jan, [facility] [place] [facility] [address] [id number] [place] [address]- 0772 Jan, [facility] [place] [facility] [address] [id number] [place] [address]- 8073 Jan, [facility] [place] [facility] [address] [id number] [place] [address]- 7795 Jan, [facility] [place] [facility] [address] [id number] [place] [address]- 0791 Dec, [facility] [place] [facility] [address] [id number] [place] [address]- 9188 Dec, [facility] [place] [facility] [address] [id number] [place] [address]- 8013 Dec, [facility] [place] [facility] [address] [id number] [place] [address]- 5878 Dec, [facility] [place] [facility] [address] [id number] [place] [address]- 4415 Dec, [facility] [place] [facility] [address] [id number] [place] [address]- 2398 Dec, [facility] [place] [facility] [address] [id number] [place] [address]- 9698 Dec, [facility] [place] [facility] [address] [id number] [place] [address]- 7816 Dec, [facility] [address] [id number] [place] [address]- 7535 October, [facility] [place] [facility] [address] [id number] [place] [address]- 6892 October, [facility] [address] [id number] [place] [address]- 2778 October, [facility] [place] [facility] [address] [id number] [place] [address]- 3981 Oct, [facility] [address] [id number] [place] [address]- 9118 Oct, [facility] [address] [id number] [place] [address]- 8632 Oct, [facility] [place] [facility] [address] [id number] [place] [address]- 1686 Oct, [facility] [place] [facility] [address] [id number] [place] [address]- 3588 Aug, [facility] [place] [facility] [address] [id number] [place] [address]- 9474 Aug, [facility] [place] [facility] [address] [id number] [place] [address]- 2765 Aug, [facility] [place] [facility] [address] [id number], [place] [address]- 7577 Jul, [facility] [place] [facility] [address] [id number], [place] [address]- 4202 May, [facility] [place] [facility] [address] [id number] [place] [address]- 2542 May, [facility] [place] [facility] [address] [id number] [place] [address]- 8136 Apr, [facility] [place] [facility] [address] [id number] [place] [address]- 8047 Apr, [facility] [place] [facility] [address] [id number] [place] [address]- 7947 Apr, [facility] [place] [facility] [address] [id number] [place] [address]- 3441 Apr, [facility] [place] [facility] [address] [id number] [place] [address]- 0765 Apr, [facility] [place] [facility] [address] [id number] [place] [address]- 0150 Apr, [facility] [place] [facility] [address] [id number] [place] [address]- 8740 Apr, [facility] [place] [facility] [address] [id number] [place] [address]- 4091 Apr, [facility] [place] [facility] [address] [id number] [place] [address]- 2593 Apr, [facility] [place] [facility] [address] [id number] [place] [address]- 2283 Apr, [facility] [place] [facility] [address] [id number] [place] [address]- 6608 Apr, [facility] [place] [facility] [address] [id number] [place] [address]- 3259 Apr, [facility] [place] [facility] [address] [facility] [id number] [place] [address]- 1372 Mar, [facility] [place] [facility] [address] [id number] [place] [address]- 6925 Jan, [facility] [place] [facility] [address] [id number] [place] [address]- 5860 Dec, [facility] [place] [facility] [address] [id number] [place] [address]- 9963 October, [facility] [place] [facility] [address] [id number] [place] [address]- 5766 Oct, [facility] [place] [facility] [address] [id number] [place] [address]- 0048 Oct, [facility] [address] [facility] [id number], [place] [address]- 5462 Oct, [facility] [address] [facility] [id number], [place] [address]- 3006 Aug, [facility] [address] [facility] [id number], [place] [address] 2546 Aug, [facility] [address] [facility] [id number] [place] [address]- 0076 Aug, [facility] [address] [facility] [id number] [place] [address]- 2806 Aug, [facility] [address] [facility] [id number] [place] [address]- 3006 Aug, [facility] [address] [facility] [id number], [place] [address]- 3126 Aug, [facility] [address] [id number], [place] [address]- 9152 Jun, [facility] [address] [facility] [id number], [place] [address]- 8745 Apr, [facility] [id number], [place] [address]- 7909 Jun, [facility] [address]65[address], [place] [address]- 2186 Jun, [facility] [id number], [place] [address]- 0114 May, [facility] [address] [facility] [id number], [place] [address]- 2871 May, [facility] [address] [facility] [id number], [place] [address]- 5466 15 Apr, 2009 [facility] [address] [id number] [address]609 13 Apr, 2009 IMMUNIZATIONS No Known Immunizations SOCIAL HISTORY Never Assessed REASON FOR VISIT Allergy injection(s) PLAN OF CARE Activity Details Future/Pending Procedure IMMUNOTHERAPY, 2 OR MORE INJECTIONS VITAL SIGNS MEDICATIONS Unknown Medications RESULTS No Results PROCEDURES Procedure Date Ordered Result Body Site IMMUNOTHERAPY INJECTIONS May 10, 2018 INSTRUCTIONS MEDICATIONS ADMINISTERED No Known Medications [...] History see above surgeries Hospitalization History Anaphylactic shock-[facility] 08/23/16
--- OUTSIDE RECORDS SUMMARY | 2018-07-18 07:09 | XMS REPORT ---
Author Author BRANDY SAGAR [facility] Address [address] [place] [address] Care Team Providers Care Pattern Technician Name Role Phone BRANDYTEZ HOYTHANY Unavailable PROBLEMS Type Condition ICD9-CM Code YRH58-DC Code Onset Dates Condition Status SNOMED Code Problem Migraine with aura and without status migrainosus, not intractable G43.109 Active 2357209 Problem PCOS (polycystic ovarian syndrome) E28.2 Active 03974192 Problem Uncomplicated severe persistent asthma J45.50 Active 694427018 Problem Severe persistent asthma with exacerbation J45.51 Active 179082707 Problem Other elevated white blood cell (WBC) count D72.828 Active 954618260 Problem Multiple food allergies Z91.018 Active 601107748 Problem Pure hypercholesterolemia E78.00 Active 383830244 Problem Current chronic use of inhaled steroid Z79.51 Active 298416205 Problem Asthma exacerbation J45.901 Active 246864143 Problem ADD (attention deficit disorder) F90.0 Active 635484423 Problem Allergic rhinitis due to pollen J30.1 Active 79950504 Problem Vitamin D deficiency E55.9 Active 44727956 Problem Major depressive disorder, recurrent episode, mild F33.0 Active 016246445 Problem Acquired hypothyroidism E03.9 Active 995050576 Problem Gastroesophageal reflux disease without esophagitis K21.9 Active 348734084 ALLERGIES No Information ENCOUNTERS Encounter Location Date Diagnosis [facility] [id number] [address] May, Allergic rhinitis due to pollen J30.1 [facility] [address] [address] Apr, Encounter for immunization Z23 [facility] [address] [address] Apr, Recurrent infections B99.9 [facility] [id number] [place] [address] 69090- 3382 Apr, Other elevated white blood cell (WBC) count D72.828 ; ADD ( attention deficit disorder) F90.0 ; Recurrent infections B99.9 and Uncomplicated severe persistent asthma J45.50 [facility] [id number] [place] [address] 55264- 4018 Apr, ADD (attention deficit disorder) F90.0 [facility] [facility] [address] 85911- 3071 Mar, Allergic rhinitis due to pollen J30.1 [facility] [address] 53725- 9209 Mar, Severe persistent asthma with exacerbation J45.51 and Haemophilus infection A49.2 [facility] [address] 94956- 7787 Mar, [place] [address] 90005- 1148 Mar, Multiple food allergies Z91.018 [place] [address] 88931- 6496 Jan, Allergic rhinitis due to pollen J30.1 [facility] [id number] [place] [address] 04348- 0028 Jan, [facility] [address] 41030- 1846 Jan, Allergic reaction, initial encounter T78.40XA [facility] [id number] [place] [address] 08368- 0218 Dec, Allergic rhinitis due to pollen J30.1 [facility] [id number] [place] [address] 06983- 0183 Dec, [facility] [id number] [place] [address] 89980- 0585 Dec, Allergic rhinitis due to pollen J30.1 [facility] [address] [address] 9[address] Dec, ADD (attention deficit disorder) F90.0 [facility] [id number] [place] [address] 34155- 1916 Dec, ADD (attention deficit disorder) F90.0 and Uncomplicated severe persistent asthma J45.50 [facility] [id number] [place] [address] 73497- 3995 Dec, Allergic rhinitis due to pollen J30.1 [facility] [id number] [place] [address] 40862- 2511 Dec, [facility] [id number] [place] [address] 68784- 2090 October, Allergic rhinitis due to pollen J30.1 [facility] [id number] [place] [address] 74961- 3194 October, Allergic rhinitis due to pollen J30.1 [facility] [id number] [place] [address] 78398- 5268 Oct, [facility] [id number] [place] [address] 43450- 3065 Oct, Allergic rhinitis due to pollen J30.1 [facility] [id number] [place] [address] 38428- 0366 Oct, [facility] [id number] [place] [address] 03557- 5346 Oct, Allergic rhinitis due to pollen J30.1 [facility] [address] [place] [address] 03175- 0647 Oct, Severe persistent asthma with exacerbation J45.51 and Pneumonia due to Haemophilus influenzae, unspecified laterality, unspecified part of lung J14 [facility] [address] [address] Oct, ADD (attention deficit disorder) F90.0 [facility] [id number] [place] [address] 47683- 7082 Aug, Haemophilus influenzae infection A49.2 [place] [address] 33623- 4287 Aug, Cough productive of purulent sputum R05 [place] [address] 53553- 1526 Aug, [facility] [address] 07148- 7648 Aug, Pulmonary congestion R09.89 [facility] [place] [address] 45062- 4383 Aug, Severe persistent asthma with exacerbation J45.51 ; Hiatal hernia K44.9 and Gastroesophageal reflux disease without esophagitis K21.9 [facility] [address] 80739- 1988 Aug, Other elevated white blood cell (WBC) count D72.828 [facility] [id number] [place] [address] 56485- 0597 Aug, Uncomplicated severe persistent asthma J45.50 [facility] [address] 58850- 5557 Aug, Pure hypercholesterolemia E78.00 ; Uncomplicated severe persistent asthma J45.50 and Acquired hypothyroidism E03.9 [facility] [address] [place] [address] 47651- 2146 Aug, Acquired hypothyroidism E03.9 ; Pure hypercholesterolemia E78.00 and Uncomplicated severe persistent asthma J45.50 [facility] [place] [address] 20216- 5808 15 Aug, 2017 Allergic rhinitis due to pollen J30.1 [facility] [address] [place] [address] 95491- 2610 08 Aug, 2017 Allergic rhinitis due to pollen J30.1 [facility] [facility] [address] 06827- 6717 Aug, [facility] [place] [address] [id number] Jul, Pharyngitis, unspecified etiology J02.9 and Lymphadenopathy R59.1 [facility] [place] [address] 22443- 4348 Jul, ADD (attention deficit disorder) F90.0 [facility] [address] 47876- 0041 Jul, Allergic rhinitis due to pollen J30.1 [facility] [address] 51451- 8153 Jul, Dental examination Z01.20 [facility] [address] 16707- 8622 Jun, Cough productive of purulent sputum R05 [facility] [address] 38317- 1173 Jun, Allergic rhinitis due to pollen J30.1 [facility] [address] 55835- 2803 Jun, [facility] [place] [address] 74499- 4158 Jun, Allergic rhinitis due to pollen J30.1 [facility] [facility] [address] 48485- 0379 Jun, Allergic rhinitis due to pollen J30.1 [facility] [address] 87894- 2434 May, Allergic rhinitis due to pollen J30.1 [facility] [address] 07574- 1710 May, Pneumonia due to Haemophilus influenzae, unspecified laterality, unspecified part of lung J14 [facility] [address] 77219- 3195 May, Allergic rhinitis due to pollen J30.1 [facility] [place] [id number] [place] [address] 37619- 4611 May, Other adverse food reactions, not elsewhere classified, initial encounter T78.1XXA and Pneumonia due to Haemophilus influenzae, unspecified laterality, unspecified part of lung J14 [facility] [id number] [place] [address] 95783- 4559 May, Pneumonia due to Haemophilus influenzae, unspecified laterality, unspecified part of lung J14 [facility] [place] [id number] [place] [address] 78902- 8658 10 May, 2017 Multiple food allergies Z91.018 ; Uncomplicated severe persistent asthma J45.50 ; Cough productive of purulent sputum R05 and Uses central nervous system stimulants F15.90 [place] [address] 27184- 3708 Apr, Allergic rhinitis due to pollen J30.1 [facility] [id number] [place] [address] 07739- 6153 Apr, Allergic rhinitis due to pollen J30.1 [facility] [id number] [place] [address] 33739- 2852 Apr, Allergic rhinitis due to pollen J30.1 [facility] [id number] [place] [address] 80128- 1660 Apr, ADD (attention deficit disorder) F90.0 [facility] [id number] [place] [address] 01939- 6314 28 Mar, 2017 Allergic rhinitis due to pollen J30.1 [facility] [address] 78939- 8828 21 Mar, 2017 Encounter for immunization Z23 [facility] [id number] [place] [address] 16658- 2577 19 Mar, 2017 [place] [address] 17104- 3799 14 Mar, 2017 Allergic rhinitis due to pollen J30.1 [facility] [place] [address] [place] [address] 01175- 0437 Mar, Allergic rhinitis due to pollen J30.1 [facility] [id number] [place] [address] 38053- 4964 Jan, Allergic rhinitis due to pollen J30.1 [facility] [id number] [place] [address] 84195- 9639 Jan, Allergic rhinitis due to pollen J30.1 [facility] [id number] [place] [address] 22022- 0961 Dec, Uncomplicated severe persistent asthma J45.50 [facility] [place] [address] [place] [address] 97327- 1317 Dec, Allergic rhinitis due to pollen J30.1 [facility] [place] [id number] [place] [address] 32395- 0103 Dec, Allergic rhinitis due to pollen J30.1 [facility] [place] [id number] [place] [address] 32207- 9158 Dec, Allergic rhinitis due to pollen J30.1 [facility] [place] [id number] [place] [address] 74713- 8033 Dec, ADD (attention deficit disorder) F90.0 [place] [id number] [place] [address] 56332- 9378 Dec, Allergic rhinitis due to pollen J30.1 [facility] [place] [address] [place] [address] 33756- 5625 Dec, Visit for TB skin test Z11.1 and Screening for tuberculosis Z11.1 [facility] [place] [id number] [place] [address] 44008- 7932 Dec, Uncomplicated severe persistent asthma J45.50 ; Palpitations R00.2 ; Pericardial effusion (noninflammatory) I31.3 and Chest discomfort R07.89 [facility] [id number] [place] [address] 18159- 1358 Dec, Allergic rhinitis due to pollen J30.1 [facility] [id number] [place] [address] 87033- 1242 Dec, Chronic cough R05 [facility] [id number] [place] [address] 54410- 6435 Dec, [facility] [address] 73240- 2057 Dec, Allergic rhinitis due to pollen J30.1 [place] [address] 05974- 9952 Dec, Allergic rhinitis due to pollen J30.1 [facility] [place] [address] [place] [address] 32258- 1248 Dec, Chronic cough R05 [facility] [id number] [place] [address] 07852- 7835 October, Allergic rhinitis due to pollen J30.1 [facility] [id number] [place] [address] 48337- 0917 October, Allergic rhinitis due to pollen J30.1 [facility] [address] [place] [address] 22482- 8228 October, [facility] [id number] [place] [address] 99229- 5284 October, Asthma exacerbation J45.901 [facility] [address] [place] [address] 83600- 4549 October, Asthma exacerbation J45.901 and Current chronic use of inhaled steroid Z79.51 [facility] [address] [place] [address] 45293- 1237 October, Uncomplicated severe persistent asthma J45.50 [facility] [address] [place] [address] 95089- 6824 October, Allergic rhinitis due to pollen J30.1 [facility] [id number] [place] [address] 51407- 4613 Oct, [facility] [id number] [place] [address] 91145- 3318 Oct, Asthma exacerbation J45.901 and Sputum production R05 [facility] [facility] [address] 41893- 6576 Oct, Asthma exacerbation J45.901 [facility] [address] 99778- 6466 Oct, ADD (attention deficit disorder) F90.0 [facility] [address] 52518- 7128 Oct, ADD (attention deficit disorder) F90.0 [facility] [address] 42080- 9902 Aug, Allergic rhinitis due to pollen J30.1 [facility] [address] 67017- 1708 Aug, Atypical pneumonia J18.9 [facility] [address] 13941- 6745 Aug, Allergic rhinitis due to pollen J30.1 [facility] [address] [place] [address] 48465- 6920 Aug, Acquired hypothyroidism E03.9 [facility] [id number] [place] [address] 00398- 3448 Aug, Multiple food allergies Z91.018 ; Elevated blood pressure reading R03.0 and Anaphylaxis, subsequent encounter T78.2XXD [facility] [address] [id number] Aug, [facility] [place] [id number] [place] [address] 87296- 9152 Aug, Anaphylaxis, initial encounter T78.2XXA [facility] [address] [place] [address] 81731- 3070 16 Aug, 2016 Allergic rhinitis due to pollen J30.1 [facility] [id number] [place] [address] 58840- 9829 16 Aug, 2016 Dental examination Z01.20 [facility] [address] 39174- 0498 09 Aug, 2016 Allergic rhinitis due to pollen J30.1 [facility] [place] [id number] [place] [address] 28173- 4488 06 Aug, 2016 Acquired hypothyroidism E03.9 and Pure hypercholesterolemia E78.00 [place] [address] 94872- 4939 03 Aug, 2016 ADD (attention deficit disorder) F90.0 ; Acquired hypothyroidism E03.9 and Pure hypercholesterolemia E78.00 [facility] [address] 49352- 9297 Aug, Asthma exacerbation J45.901 [facility] [address] 04479- 1754 Jul, Allergic rhinitis due to pollen J30.1 [facility] [address] [place] [address] 70785- 3074 Jul, Allergic rhinitis due to pollen J30.1 [facility] [id number] [place] [address] 14507- 0071 Jul, [facility] [id number] [place] [address] 56582- 5747 Jul, Allergic rhinitis due to pollen J30.1 [facility] [address] [place] [address] 08921- 0319 Jul, Other adjunct faculty for medical terminology (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 and ADD ( attention deficit disorder) F90.0 [facility] [address] 61824- 9047 Jul, Other adjunct faculty for medical terminology (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 and ADD ( attention deficit disorder) F90.0 [facility] [address] [place] [address] 80866- 7551 Jul, [facility] [id number] [place] [address] 44286- 8109 Jun, Allergic rhinitis due to pollen J30.1 [facility] [id number] [place] [address] 11717- 8664 Jun, Allergic rhinitis due to pollen J30.1 [facility] [address] [place] [address] 36665- 7292 Jun, [facility] [address] [place] [address] 74331- 0429 May, Allergic rhinitis due to pollen J30.1 [facility] [address] [place] [address] 47104- 3709 May, Allergic rhinitis due to pollen J30.1 [facility] [address] [place] [address] 79151- 0195 Apr, Allergic rhinitis due to pollen J30.1 [facility] [place] [id number] [place] [address] 84512- 1727 Apr, Allergic rhinitis due to pollen J30.1 [facility] [id number] [place] [address] 14841- 9600 Apr, Encounter for immunization Z23 [facility] [id number] [place] [address] 92486- 1569 Apr, [facility] [id number] [place] [address] 29998- 3953 Mar, Allergic rhinitis due to pollen J30.1 [facility] [place] [address] [place] [address] 57172- 0185 Mar, Multiple allergies Z88.9 [facility] [place] [address] [place] [address] 61485- 8879 Mar, Candidal vaginitis B37.3 [facility] [id number] [place] [address] 43226- 6942 08 Mar, 2016 Allergic rhinitis due to pollen J30.1 [facility] [address] [place] [address] 45891- 1316 Jan, Asthma exacerbation J45.901 ; Fatigue, unspecified type R53.83 and Community acquired pneumonia J18.9 [facility] [address] [place] [address] [id number] Jan, Encounter for dental examination Z01.20 [facility] [id number] [place] [address] 17127- 9347 Jan, Allergic rhinitis due to pollen J30.1 [facility] [id number] [place] [address] 27942- 5231 Dec, Allergic rhinitis due to pollen J30.1 [facility] [id number] [place] [address] 03451- 8814 Dec, [facility] [id number] [place] [address] 05105- 7384 Dec, Allergic rhinitis due to pollen J30.1 [facility] [address] [address]- 6732 Dec, [facility] [id number] [place] [address] 76992- 9478 Dec, [facility] [id number] [place] [address] 83300- 2714 Dec, [facility] [id number] [place] [address] 84810- 5888 Dec, Allergic rhinitis due to pollen J30.1 [facility] [address] [place] [address] 13269- 6015 Dec, [facility] [address] [place] [address] 88592- 9572 Dec, [facility] [id number] [place] [address] 71784- 7383 Dec, Allergic rhinitis due to pollen J30.1 [facility] [place] [id number] [place] [address] 47578- 1152 October, Allergic rhinitis due to pollen J30.1 [facility] [id number] [place] [address] 22532- 7302 October, Allergic rhinitis due to pollen J30.1 [facility] [place] [id number] [place] [address] 27506- 9601 October, [facility] [place] [id number] [place] [address] 75433- 0606 October, [facility] [place] [id number] [place] [address] 42395- 7452 October, ADD (attention deficit disorder) F90.0 ; Major depressive disorder, recurrent episode, mild F33.0 and Uncomplicated severe persistent asthma J45.50 [facility] [address] [place] [address] 51014- 6819 Oct, Allergic rhinitis due to pollen J30.1 [facility] [place] [address] [place] [address] 51442- 4241 Oct, ADD (attention deficit disorder) F90.0 [facility] [place] [address] [place] [address] 95683- 2107 Oct, Allergic rhinitis due to pollen 477.0 [facility] [id number] [place] [address] 91156- 7320 Aug, Allergic rhinitis due to pollen 477.0 [place] [address] [place] [address] 73029- 3043 Aug, 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 [place] [id number] [place] [address] 76691- 9521 Aug, [facility] [address] [place] [address] 72894- 4107 Aug, Allergic rhinitis due to pollen 477.0 [facility] [id number] [place] [address] 623000- 9387 Aug, Allergic rhinitis due to pollen 477.0 [facility] [id number] [place] [address] 49925- 6727 Aug, Allergic rhinitis due to pollen 477.0 [facility] [id number] [place] [address] 38722- 4435 Aug, Exposure to influenza Z20.828 [facility] [id number] [place] [address] [id number] Aug, Encounter for dental examination and cleaning without abnormal findings Z01.20 [facility] [id number] [place] [address] 99661- 3872 Aug, Allergic rhinitis due to pollen J30.1 [facility] [id number] [place] [address] 39706- 8678 Aug, [place] [id number] [place] [address] 25756- 8688 Aug, 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 [facility] [id number] [place] [address] 28403- 0580 Jul, [facility] [id number] [place] [address] 70383- 8879 Jul, Allergic rhinitis due to pollen 477.0 [facility] [id number] [place] [address] 73059- 3432 Jul, [place] [id number] [place] [address] 657107- 5912 Jul, Allergic rhinitis due to pollen 477.0 [facility] [address] [place] [address] 38632- 9407 Jun, ADD (attention deficit disorder) F90.0 ; Acquired hypothyroidism E03.9 ; PCOS (polycystic ovarian syndrome) E28.2 ; Polyarthralgia M25.50 and On stimulant medication Z79.899 [place] [address] 53079- 9481 16 Apr, 2015 Encounter for immunization Z23 [place] [address] 22052- 6351 16 Mar, 2015 Allergic rhinitis due to pollen 477.0 [place] [address] 52639- 9137 Mar, Influenza vaccine administered V04.81 [place] [address] 45715- 9114 Mar, [place] [address] 47434[address] Jan, Allergic rhinitis due to pollen 477.0 [place] [address] [address] Jan, Allergic rhinitis due to pollen 477.0 [place] [address] [address] Jan, Allergic rhinitis due to pollen 477.0 [facility] [address] [id number] Jan, Dental examination V72.2 [place] [address] [address] Dec, Allergic rhinitis due to pollen 477.0 [place] [address] [address] October, [place] [address] [address] Oct, [place] [address] [address] Oct, [facility] [place] [facility] [address] [id number] [place] [address] Aug, [facility] [place] [facility] [address] [id number] [place] [address] Aug, [facility] [place] [facility] [address] [id number] [place] [address] Aug, [facility] [place] [facility] [address] [id number] [place] [address] Aug, [facility] [place] [facility] [address] [id number] [place] [address] Aug, [facility] [place] [facility] [address] [id number] [place] [address] Aug, [facility] [place] [facility] [address] [id number] [place] [address] Aug, [facility] [place] [facility] [address] [id number] [place] [address] Aug, [facility] [place] [facility] [address] [id number] [place] [address] Jul, [facility] [place] [facility] [address] [id number] [place] [address] Jul, [facility] [place] [facility] [address] [id number] [place] [address] Jul, [facility] [place] [facility] [address] [id number] [place] [address] Jul, [facility] [place] [facility] [address] [id number] [place] [address] Jul, [facility] [place] [facility] [address] [id number] [place] [address] Jul, [facility] [place] [facility] [address] [id number] [place] [address] Jul, [facility] [place] [facility] [address] [id number] [place] [address] Jul, [facility] [address] [id number] [place] [address] Jul, [facility] [place] [facility] [address] [id number] [place] [address] Jul, [facility] [address] [id number] [place] [address] Jul, [facility] [place] [facility] [address] [id number] [place] [address] Jun, [facility] [address] [id number] [place] [address] Jun, [facility] [address] [id number] [place] [address] Jun, [facility] [address] [id number] [place] [address] Jun, [facility] [address] [id number] [place] [address] Jun, [facility] [place] [facility] [address] [id number] [place] [address] Jun, [facility] [address] [id number] [place] [address] May, [facility] [place] [facility] [address] [id number] [place] [address] 245[address] May, [facility] [place] [facility] [address] [id number] [place] [address] 5681 May, [facility] [place] [facility] [address] [id number] [place] [address] 7970 May, [facility] [place] [facility] [address] [id number] [place] [address]- 9310 May, [facility] [place] [facility] [address] [id number] [place] [address] 8[address] May, [facility] [place] [facility] [address] [id number] [place] [address]- 7978 Apr, [facility] [place] [facility] [address] [id number] [place] [address]- 12[address] Apr, [facility] [place] [facility] [address] [id number] [place] [address] 7395 Mar, [facility] [place] [facility] [address] [id number] [place] [address]- 8841 Mar, [facility] [place] [facility] [address] [id number] [place] [address] 7697 Mar, [facility] [place] [facility] [address] [id number] [place] [address]- 4668 Mar, [facility] [place] [facility] [address] [id number] [place] [address]- 0983 Mar, [facility] [place] [facility] [address] [id number] [place] [address]- 7463 Mar, [facility] [place] [facility] [address] [id number] [place] [address]- 4029 Jan, [facility] [place] [facility] [address] [id number] [place] [address]- 6765 Jan, [facility] [place] [facility] [address] [id number] [address] Jan, [facility] [place] [facility] [address] [id number] [address] Jan, [facility] [place] [facility] [address] [id number] [place] [address]- 5691 Jan, [facility] [place] [facility] [address] [id number] [place] [address]- 1258 Jan, [facility] [place] [facility] [address] [id number] [place] [address]- 3970 Dec, [facility] [place] [facility] [address] [id number] [address] Dec, [facility] [place] [facility] [address] [id number] [place] [address]- 9661 Dec, [facility] [place] [facility] [address] [id number] [place] [address]- 2020 Dec, [facility] [place] [facility] [address] [id number] [place] [address]- 2138 Dec, [facility] [place] [facility] [address] [id number] [place] [address]- 9890 Dec, [facility] [place] [facility] [address] [id number] [place] [address]- 1674 Dec, [facility] [place] [facility] [address] [id number] [place] [address]- 5873 Dec, [facility] [place] [facility] [address] [id number] [place] [address]- 5422 Dec, [facility] [place] [facility] [address] [id number] [place] [address]- 1664 Dec, [facility] [place] [facility] [address] [id number] [place] [address]- 4311 Dec, [facility] [place] [facility] [address] [id number] [place] [address]- 4873 Dec, [facility] [place] [facility] [address] [id number] [place] [address]- 2865 Dec, [facility] [place] [facility] [address] [id number] [place] [address]- 4913 Dec, [facility] [place] [facility] [address] [id number] [place] [address]- 5137 Dec, [facility] [place] [facility] [address] [id number] [place] [address]- 5735 Dec, [facility] [place] [facility] [address] [id number] [place] [address]- 4388 October, [facility] [place] [facility] [address] [id number] [place] [address]- 5763 October, [facility] [place] [facility] [address] [id number] [place] [address]- 0846 October, [facility] [place] [facility] [address] [id number] [place] [address]- 0289 October, [facility] [place] [facility] [address] [id number] [place] [address]- 9659 October, [facility] [place] [facility] [address] [id number] [place] [address]- 5413 October, [facility] [place] [facility] [address] [id number] [place] [address]- 5287 Oct, [facility] [place] [facility] [address] [id number] [place] [address]- 0848 Oct, [facility] [place] [facility] [address] [id number] [place] [address] 1901 Oct, [facility] [place] [facility] [address] [id number] [place] [address]- 7356 Oct, [facility] [place] [facility] [address] [id number] [place] [address]- 7632 Oct, [facility] [place] [facility] [address] [id number] [place] [address]- 2454 Oct, [facility] [place] [facility] [address] [id number] [place] [address]- 5597 Aug, [facility] [place] [facility] [address] [id number] [place] [address]- 2985 Aug, [facility] [place] [facility] [address] [id number] [place] [address]- 2965 Aug, [facility] [place] [facility] [address] [id number] [place] [address] 4099 Aug, [facility] [place] [facility] [address] [id number] [place] [address]- 7057 Jul, [facility] [address] [id number] [place] [address]- 3895 Jul, [facility] [place] [facility] [address] [id number] [place] [address]- 9610 Jul, [facility] [place] [facility] [address] [id number] [place] [address]- 2839 Jul, [facility] [place] [facility] [address] [id number] [place] [address]- 4709 Jun, [facility] [place] [facility] [address] [id number] [place] [address] Jun, [facility] [place] [facility] [address] [id number] [place] [address]- 9766 Jun, [facility] [place] [facility] [address] [id number] [place] [address]- 4798 Jun, [facility] [place] [facility] [address] [id number] [place] [address]- 9953 Jun, [facility] [place] [facility] [address] [id number] [place] [address]- 7186 Jun, [facility] [place] [facility] [address] [id number] [place] [address]- 1574 Jun, [facility] [place] [facility] [address] [id number] [place] [address]- 7418 Jun, [facility] [place] [facility] [address] [id number] [address]- [address]45 Jun, [facility] [place] [facility] [address] [id number] [place] [address]- 1870 Jun, [facility] [place] [facility] [address] [id number] [place] [address]- 0442 Jun, [facility] [place] [facility] [address] [id number] [place] [address]- 6356 May, [facility] [place] [facility] [address] [id number] [place] [address]- 2589 13 May, 2013 [facility] [address] [id number] [place] [address]- 2886 May, [facility] [place] [facility] [address] [id number] [place] [address]- 7140 May, [facility] [address] [id number] [place] [address]- 7300 May, [facility] [place] [facility] [address] [id number] [place] [address]- 2548 May, [facility] [place] [facility] [address] [id number] [place] [address]- 6216 May, [facility] [place] [facility] [address] [id number] [place] [address]- 5175 Apr, [facility] [place] [facility] [address] [id number] [place] [address]- 7815 30 Apr, 2013 [facility] [place] [facility] [address] [id number] [place] [address]- 9245 18 Apr, 2013 [facility] [place] [facility] [address] [id number] [place] [address]- 1332 Apr, [facility] [place] [facility] [address] [id number] [place] [address]- 5115 27 Mar, 2012 [facility] [place] [facility] [address] [id number] [place] [address] 2546 26 Sep, 2012 [facility] [place] [facility] [address] [id number] [place] [address]- 2547 26 Mar, 2012 [facility] [place] [facility] [address] [id number] [place] [address] 2541 23 Sep, 2012 [facility] [place] [facility] [address] [id number] [place] [address]- 2546 04 Sep, 2012 [facility] [place] [facility] [address] [id number] [place] [address] 2548 Mar, [facility] [place] [facility] [address] [id number] [place] [address]- 6765 Jan, [facility] [place] [facility] [address] [id number] [place] [address]- 0048 Jan, [facility] [place] [facility] [address] [id number] [place] [address]- 9737 Jan, [facility] [place] [facility] [address] [id number] [place] [address]- 9973 Jan, [facility] [place] [facility] [address] [id number] [place] [address]- 3817 Jan, [facility] [place] [facility] [address] [id number] [place] [address]- 9242 Dec, [facility] [place] [facility] [address] [id number] [place] [address]- 6892 Dec, [facility] [place] [facility] [address] [id number] [place] [address]- 4508 Dec, [facility] [place] [facility] [address] [id number] [place] [address]- 5613 Dec, [facility] [place] [facility] [address] [id number] [place] [address]- 5061 Dec, [facility] [place] [facility] [address] [id number] [place] [address]- 1748 Dec, [facility] [place] [facility] [address] [id number] [place] [address]- 6585 Dec, [facility] [place] [facility] [address] [id number] [place] [address]- 1939 Dec, [facility] [place] [facility] [address] [id number] [place] [address]- 7610 October, [facility] [place] [facility] [address] [id number] [place] [address]- 0178 October, [facility] [place] [facility] [address] [id number] [address]- 5537 October, [facility] [place] [facility] [address] [id number] [place] [address]- 7367 Oct, [facility] [place] [facility] [address] [id number] [place] [address]- 3844 Oct, [facility] [place] [facility] [address] [id number] [place] [address]- 6630 Oct, [facility] [place] [facility] [address] [id number] [place] [address]- 5005 Oct, [facility] [place] [facility] [address] [id number] [place] [address]- 2581 Aug, [facility] [place] [facility] [address] [id number] [place] [address]- 2234 Aug, [facility] [place] [facility] [address] [id number] [place] [address]- 4914 Aug, [facility] [place] [facility] [address] [id number] [place] [address]- 0995 Jul, [facility] [place] [facility] [address] [id number] [place] [address]- 4428 May, [facility] [place] [facility] [address] [id number] [place] [address]- 6364 May, [facility] [place] [facility] [address] [id number] [address]- 0775 Apr, [facility] [place] [facility] [address] [id number] [place] [address]- 1927 Apr, [facility] [place] [facility] [address] [id number] [place] [address]- 6282 Apr, [facility] [place] [facility] [address] [id number] [place] [address]- 3482 Apr, [facility] [place] [facility] [address] [id number] [place] [address]- 0503 Apr, [facility] [place] [facility] [address] [id number] [place] [address]- 9059 Apr, [facility] [place] [facility] [address] [id number] [place] [address]- 2902 Apr, [facility] [place] [facility] [address] [id number] [place] [address]- 0679 Apr, [facility] [place] [facility] [address] [id number] [place] [address]- 8445 Apr, [facility] [place] [facility] [address] [id number] [place] [address]- 1990 Apr, [facility] [place] [facility] [address] [id number] [place] [address]- 4632 Apr, [facility] [place] [facility] [address] [id number] [place] [address]- 7101 Apr, [facility] [place] [facility] [address] [id number] [place] [address]- 7093 Mar, [facility] [place] [facility] [address] [id number] [place] [address]- 1845 Jan, [facility] [place] [facility] [address] [id number] [place] [address]- 6514 Dec, [facility] [place] [facility] [address] [id number] [place] [address]- 8102 October, [facility] [place] [facility] [address] [id number] [place] [address]- 4097 Oct, [facility] [place] [facility] [address] [id number] [place] [address]- 3896 Oct, [facility] [place] [facility] [address] [id number] [place] [address]- 3511 Oct, [facility] [place] [facility] [address] [id number] [place] [address] 2546 Aug, [facility] [place] [facility] [address] [id number] [place] [address] 2546 Aug, [facility] [id number] [address]- 5965 Aug, [facility] [id number] [address]- 0706 Aug, [facility] [id number] [address] Aug, [facility] [id number] [address]- 9995 Aug, [facility] [id number] [address]12 Jun, [facility] [id number] [address]14 Apr, [facility] [id number] [address]- 1852 Jun, [facility] [id number] [address]- 3682 Jun, [facility] [id number] [address]- 8382 May, [facility] [id number] [address]- 7116 May, [facility] [id number] [address]- 2158 Apr, [facility] [id number] [address]- 2857 Apr, IMMUNIZATIONS No Known Immunizations SOCIAL HISTORY Never Assessed REASON FOR VISIT Allergy injection(s) PLAN OF CARE VITAL SIGNS MEDICATIONS Unknown Medications RESULTS No Results PROCEDURES Procedure Date Ordered Result Body Site IMMUNOTHERAPY, 2 OR MORE INJECTIONS 2018-05-03 N/A IMMUNOTHERAPY INJECTIONS May 03, 2018 INSTRUCTIONS MEDICATIONS ADMINISTERED No Known Medications MEDICAL (GENERAL) HISTORY Type Description Date Medical History Hypothyroid Medical History Asthma Medical History Migraine Headaches Medical History Depression Medical History ADHD Medical History GERD Medical History Allergic Rhinitis Medical History PCOS Surgical History Left wrist plate 2003 Surgical History 2004 Surgical History 2009 Surgical History EGD 2012 Surgical History Hiatal Hernia Repair and Fundoplication 2013 Surgical History 2014 Surgical History Wound Dehisance 2014 Hospitalization History see above surgeries Hospitalization History [facility]aphylactic shock-[facility] 08/23/16
--- OUTSIDE RECORDS SUMMARY | 2018-07-18 07:10 | XMS REPORT ---
Author Author BRANDY SAGAR [facility] Address [address] [place] [address] Care Team Providers Care Paying Teller Name Role Phone BRANDYTEZ HOYTHANY Unavailable PROBLEMS Type Condition ICD9-CM Code TRM98-DW Code Onset Dates Condition Status SNOMED Code Problem Migraine with aura and without status migrainosus, not intractable G43.109 Active 4248609 Problem PCOS (polycystic ovarian syndrome) E28.2 Active 26679917 Problem Uncomplicated severe persistent asthma J45.50 Active 502330988 Problem Severe persistent asthma with exacerbation J45.51 Active 910909369 Problem Other elevated white blood cell (WBC) count D72.828 Active 442721529 Problem Multiple food allergies Z91.018 Active 981976324 Problem Pure hypercholesterolemia E78.00 Active 488377144 Problem Current chronic use of inhaled steroid Z79.51 Active 059541775 Problem Asthma exacerbation J45.901 Active 469642748 Problem ADD (attention deficit disorder) F90.0 Active 709024576 Problem Allergic rhinitis due to pollen J30.1 Active 11551341 Problem Vitamin D deficiency E55.9 Active 00091455 Problem Major depressive disorder, recurrent episode, mild F33.0 Active 751618736 Problem Acquired hypothyroidism E03.9 Active 016823614 Problem Gastroesophageal reflux disease without esophagitis K21.9 Active 168256014 ALLERGIES No Information ENCOUNTERS Encounter Location Date Diagnosis [facility] [address] [id number] [address] Apr, Encounter for immunization Z23 [facility] [id number] [place] [address] 83447- 9160 Apr, Recurrent infections B99.9 [facility] [address] [id number] [address] Apr, Other elevated white blood cell (WBC) count D72.828 ; ADD ( attention deficit disorder) F90.0 ; Recurrent infections B99.9 and Uncomplicated severe persistent asthma J45.50 [place] [address] 48951- 9081 Apr, ADD (attention deficit disorder) F90.0 [place] [id number] [place] [address] 17295- 7031 Mar, Allergic rhinitis due to pollen J30.1 [place] [address] 53941- 5150 Mar, Severe persistent asthma with exacerbation J45.51 and Haemophilus infection A49.2 [place] [address] 64016- 2571 Mar, [place] [address] 97862- 7054 Mar, Multiple food allergies Z91.018 [place] [address] 71980- 3214 Jan, Allergic rhinitis due to pollen J30.1 [place] [address] 30408- 5111 Jan, [place] [id number] [place] [address] 68894- 4174 Jan, Allergic reaction, initial encounter T78.40XA [place] [address] 07724- 6450 Dec, Allergic rhinitis due to pollen J30.1 [facility] [id number] [place] [address] 34371- 5271 Dec, [place] [address] 19973- 1068 Dec, Allergic rhinitis due to pollen J30.1 [facility] [id number] [place] [address] 62341- 9796 Dec, ADD (attention deficit disorder) F90.0 [facility] [id number] [place] [address] 39692- 0129 Dec, ADD (attention deficit disorder) F90.0 and Uncomplicated severe persistent asthma J45.50 [facility] [id number] [place] [address] 43789- 4087 Dec, Allergic rhinitis due to pollen J30.1 [facility] [id number] [place] [address] 45743- 5526 Dec, [facility] [id number] [place] [address] 97325- 2394 October, Allergic rhinitis due to pollen J30.1 [place] [id number] [place] [address] 58704- 4515 October, Allergic rhinitis due to pollen J30.1 [place] [id number] [place] [address] 80492- 2090 Oct, [facility] [id number] [place] [address] 43504- 5354 Oct, Allergic rhinitis due to pollen J30.1 [facility] [id number] [place] [address] 93961- 6269 Oct, [place] [id number] [place] [address] 66707- 4626 Oct, Allergic rhinitis due to pollen J30.1 [facility] [id number] [place] [address] 81266- 5912 Oct, Severe persistent asthma with exacerbation J45.51 and Pneumonia due to Haemophilus influenzae, unspecified laterality, unspecified part of lung J14 [place] [id number] [place] [address] 23105- 7972 Oct, ADD (attention deficit disorder) F90.0 [place] [id number] [place] [address] 73662- 2248 Aug, Haemophilus influenzae infection A49.2 [facility] [address] 21724- 0417 Aug, Cough productive of purulent sputum R05 [place] [address] 28391- 1907 Aug, [place] [address] 50176- 0535 Aug, Pulmonary congestion R09.89 [place] [address] 78179- 4449 Aug, Severe persistent asthma with exacerbation J45.51 ; Hiatal hernia K44.9 and Gastroesophageal reflux disease without esophagitis K21.[address] 29485- 5135 Aug, Other elevated white blood cell (WBC) count D72.[address] 42652- 7675 Aug, Uncomplicated severe persistent asthma J45.50 [place] [address] 74427- 0638 Aug, Pure hypercholesterolemia E78.00 ; Uncomplicated severe persistent asthma J45.50 and Acquired hypothyroidism E03.[address] 05503- 9441 Aug, Acquired hypothyroidism E03.9 ; Pure hypercholesterolemia E78.00 and Uncomplicated severe persistent asthma J45.50 [place] [address] 01588- 2122 15 Aug, 2017 Allergic rhinitis due to pollen J30.1 [place] [address] 99520- 3083 Aug, Allergic rhinitis due to pollen J30.1 [place] [address] 97250- 1771 Aug, [facility] [address] [id number] Jul, Pharyngitis, unspecified etiology J02.9 and Lymphadenopathy R59.1 [place] [address] 99078- 9009 Jul, ADD (attention deficit disorder) F90.0 [place] [address] 44485- 0132 Jul, Allergic rhinitis due to pollen J30.1 [place] [address] 34121- 3083 Jul, Dental examination Z01.20 [place] [address] 77477- 0459 Jun, Cough productive of purulent sputum R05 [place] [address] 15714- 5754 Jun, Allergic rhinitis due to pollen J30.1 [place] [address] 36281- 9462 Jun, [place] [address] 67208- 2615 Jun, Allergic rhinitis due to pollen J30.1 [place] [id number] [place] [address] 47331- 6925 Jun, Allergic rhinitis due to pollen J30.1 [place] [id number] [place] [address] 35539- 6164 May, Allergic rhinitis due to pollen J30.1 [place] [id number] [place] [address] 28937- 9621 May, Pneumonia due to Haemophilus influenzae, unspecified laterality, unspecified part of lung J14 [place] [address] 86809- 9221 May, Allergic rhinitis due to pollen J30.1 [place] [address] 55168- 1870 May, Other adverse food reactions, not elsewhere classified, initial encounter T78.1XXA and Pneumonia due to Haemophilus influenzae, unspecified laterality, unspecified part of lung J14 [place] [id number] [place] [address] 77782- 4787 13 May, 2017 Pneumonia due to Haemophilus influenzae, unspecified laterality, unspecified part of lung J14 [place] [address] 96262- 0125 May, Multiple food allergies Z91.018 ; Uncomplicated severe persistent asthma J45.50 ; Cough productive of purulent sputum R05 and Uses central nervous system stimulants F15.[address] 55976- 2442 Apr, Allergic rhinitis due to pollen J30.[address] 10536- 7630 Apr, Allergic rhinitis due to pollen J30.[address] 17274- 6130 Apr, Allergic rhinitis due to pollen J30.[address] 40587- 5666 Apr, ADD (attention deficit disorder) F90.[address] 63342- 0311 Mar, Allergic rhinitis due to pollen J30.[address] 19275- 9828 21 Mar, 2017 Encounter for immunization Z23 [address] 42237- 3476 19 Mar, [address] 27964- 2027 14 Mar, 2017 Allergic rhinitis due to pollen J30.[address] 28445- 4948 Mar, Allergic rhinitis due to pollen J30.1 [place] [address] [place] [address] 58416- 0531 Jan, Allergic rhinitis due to pollen J30.1 [place] [id number] [place] [address] 69989- 4218 Jan, Allergic rhinitis due to pollen J30.1 [place] [id number] [place] [address] 84755- 5909 Dec, Uncomplicated severe persistent asthma J45.50 [place] [id number] [place] [address] 26007- 9402 Dec, Allergic rhinitis due to pollen J30.1 [place] [id number] [place] [address] 97698- 7268 Dec, Allergic rhinitis due to pollen J30.1 [place] [id number] [place] [address] 65789- 1383 Dec, Allergic rhinitis due to pollen J30.1 [place] [id number] [place] [address] 52993- 7302 Dec, ADD (attention deficit disorder) F90.0 [place] [id number] [place] [address] 06211- 2040 Dec, Allergic rhinitis due to pollen J30.1 [place] [id number] [place] [address] 06299- 7419 Dec, Visit for TB skin test Z11.1 and Screening for tuberculosis Z11.1 [place] [id number] [place] [address] 26694- 1232 Dec, Uncomplicated severe persistent asthma J45.50 ; Palpitations R00.2 ; Pericardial effusion (noninflammatory) I31.3 and Chest discomfort R07.89 [place] [id number] [place] [address] 90579- 7125 Dec, Allergic rhinitis due to pollen J30.1 [place] [address] [place] [address] 84009- 9846 Dec, Chronic cough R05 [facility] [id number] [place] [address] 32604- 6494 Dec, [place] [id number] [place] [address] 58578- 2821 Dec, Allergic rhinitis due to pollen J30.1 [facility] [id number] [place] [address] 92794- 2842 Dec, Allergic rhinitis due to pollen J30.1 [place] [id number] [place] [address] 03532- 1732 Dec, Chronic cough R05 [place] [id number] [place] [address] 41398- 1007 October, Allergic rhinitis due to pollen J30.1 [place] [id number] [place] [address] 12886- 1558 October, Allergic rhinitis due to pollen J30.1 [place] [id number] [place] [address] 77424- 9858 October, [place] [id number] [place] [address] 16978- 5518 October, Asthma exacerbation J45.901 [place] [id number] [place] [address] 85363- 9501 October, Asthma exacerbation J45.901 and Current chronic use of inhaled steroid Z79.51 [place] [id number] [place] [address] 21329- 2231 October, Uncomplicated severe persistent asthma J45.50 [place] [id number] [place] [address] 75011- 4528 October, Allergic rhinitis due to pollen J30.1 [place] [id number] [place] [address] 48272- 9976 Oct, [place] [id number] [place] [address] 71879- 0581 Oct, Asthma exacerbation J45.901 and Sputum production R05 [place] [address] 37212- 7752 Oct, Asthma exacerbation J45.901 [place] [address] 47316- 8570 Oct, ADD (attention deficit disorder) F90.0 [place] [address] 40603- 0801 Oct, ADD (attention deficit disorder) F90.0 [place] [address] 25151- 8155 Aug, Allergic rhinitis due to pollen J30.1 [place] [address] 73833- 2593 Aug, Atypical pneumonia J18.9 [place] [address] 26535- 9501 Aug, Allergic rhinitis due to pollen J30.1 [place] [address] 17137- 4586 Aug, Acquired hypothyroidism E03.9 [place] [address] 13491- 4049 Aug, Multiple food allergies Z91.018 ; Elevated blood pressure reading R03.0 and Anaphylaxis, subsequent encounter T78.2XXD [place] [address] [id number] Aug, [place] [address] 63903- 0161 Aug, Anaphylaxis, initial encounter T78.2XXA [place] [address] 07461- 9193 Aug, Allergic rhinitis due to pollen J30.1 [place] [id number] [place] [address] 85998- 9857 16 Aug, 2016 Dental examination Z01.20 [place] [id number] [place] [address] 00058- 2673 09 Aug, 2016 Allergic rhinitis due to pollen J30.1 [place] [id number] [place] [address] 22086- 5626 06 Aug, 2016 Acquired hypothyroidism E03.9 and Pure hypercholesterolemia E78.00 [place] [address] 29179- 3011 03 Aug, 2016 ADD (attention deficit disorder) F90.0 ; Acquired hypothyroidism E03.9 and Pure hypercholesterolemia E78.00 [place] [id number] [place] [address] 37018- 7437 02 Aug, 2016 Asthma exacerbation J45.901 [place] [address] 82479- 4220 Jul, Allergic rhinitis due to pollen J30.1 [place] [id number] [place] [address] 75563- 4171 Jul, Allergic rhinitis due to pollen J30.1 [place] [id number] [place] [address] 38852- 9791 Jul, [place] [id number] [place] [address] 22158- 3932 Jul, Allergic rhinitis due to pollen J30.1 [place] [id number] [place] [address] 96609- 3278 Jul, Other penitentiary (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 and ADD ( attention deficit disorder) F90.0 [place] [id number] [place] [address] 69092- 1598 Jul, 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 and ADD ( attention deficit disorder) F90.0 [place] [address] [place] [address]- 8189 Jul, [facility] [id number] [place] [address] 28349- 2378 Jun, Allergic rhinitis due to pollen J30.1 [facility] [id number] [place] [address] 18322- 8765 Jun, Allergic rhinitis due to pollen J30.1 [facility] [id number] [place] [address] 91895- 9647 Jun, [facility] [id number] [place] [address] 23238- 4500 May, Allergic rhinitis due to pollen J30.1 [place] [id number] [place] [address] 19401- 4184 May, Allergic rhinitis due to pollen J30.1 [place] [id number] [place] [address] 83587- 6661 Apr, Allergic rhinitis due to pollen J30.1 [place] [id number] [place] [address] 59084- 1490 Apr, Allergic rhinitis due to pollen J30.1 [place] [id number] [place] [address] 84911- 1256 Apr, Encounter for immunization Z23 [place] [id number] [place] [address] 61281- 1602 Apr, [place] [id number] [place] [address] 66533- 0901 Mar, Allergic rhinitis due to pollen J30.1 [place] [id number] [place] [address] 20028- 2594 Mar, Multiple allergies Z88.9 [place] [address] [place] [address] 44791- 0025 Mar, Candidal vaginitis B37.3 [place] [id number] [place] [address] 42038- 6648 Mar, Allergic rhinitis due to pollen J30.1 [facility] [id number] [place] [address] 03508- 7215 Jan, Asthma exacerbation J45.901 ; Fatigue, unspecified type R53.83 and Community acquired pneumonia J18.9 [facility] [id number] [place] [address] [id number] Jan, Encounter for dental examination Z01.20 [facility] [id number] [place] [address] 82472- 6231 Jan, Allergic rhinitis due to pollen J30.1 [facility] [id number] [place] [address] 25238- 8938 Dec, Allergic rhinitis due to pollen J30.1 [facility] [id number] [place] [address] 26978- 4033 Dec, [facility] [id number] [place] [address] 98575- 4448 Dec, Allergic rhinitis due to pollen J30.1 [facility] [id number] [place] [address] 95261- 9111 Dec, [facility] [id number] [place] [address] 61820- 9485 Dec, [facility] [id number] [place] [address] 31797- 4178 Dec, [facility] [id number] [place] [address] 09210- 8991 Dec, Allergic rhinitis due to pollen J30.1 [facility] [id number] [place] [address] 45365- 9902 Dec, [facility] [id number] [place] [address] 50714- 1407 Dec, [facility] [id number] [place] [address] 06537- 3884 Dec, Allergic rhinitis due to pollen J30.1 [place] [id number] [place] [address] 00785- 3606 October, Allergic rhinitis due to pollen J30.1 [place] [id number] [place] [address] 86125- 5880 October, Allergic rhinitis due to pollen J30.1 [place] [id number] [place] [address] 52127- 0290 October, [place] [id number] [place] [address] 67523- 5491 October, [place] [id number] [place] [address] 61025- 3836 October, ADD (attention deficit disorder) F90.0 ; Major depressive disorder, recurrent episode, mild F33.0 and Uncomplicated severe persistent asthma J45.50 [place] [id number] [place] [address] 66206- 4134 Oct, Allergic rhinitis due to pollen J30.1 [place] [id number] [place] [address] 69942- 7812 Oct, ADD (attention deficit disorder) F90.0 [place] [id number] [place] [address] 89509- 8099 Oct, Allergic rhinitis due to pollen 477.0 [place] [id number] [place] [address] 46274- 7941 Aug, Allergic rhinitis due to pollen 477.0 [place] [id number] [place] [address] 23532- 9234 Aug, 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 [place] [id number] [place] [address] 40174- 8918 Aug, [place] [id number] [place] [address] 55240- 2176 Aug, Allergic rhinitis due to pollen 477.0 [facility] [id number] [place] [address] 23495- 9952 Aug, Allergic rhinitis due to pollen 477.0 [facility] [id number] [place] [address] 76320- 3972 Aug, Allergic rhinitis due to pollen 477.0 [place] [address] 38387- 3814 Aug, Exposure to influenza Z20.828 [facility] [address] [id number] Aug, Encounter for dental examination and cleaning without abnormal findings Z01.20 [place] [id number] [place] [address] 16175- 2260 Aug, Allergic rhinitis due to pollen J30.1 [place] [id number] [place] [address] 69003- 7717 Aug, [place] [id number] [place] [address] 23978- 7767 Aug, 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 [place] [id number] [place] [address] 24795- 3244 Jul, [place] [id number] [place] [address] 08041- 7793 Jul, Allergic rhinitis due to pollen 477.0 [place] [id number] [place] [address] 68161- 8105 Jul, [place] [id number] [place] [address] 13136- 4874 Jul, Allergic rhinitis due to pollen 477.0 [place] [id number] [place] [address] 16078- 1337 Jun, ADD (attention deficit disorder) F90.0 ; Acquired hypothyroidism E03.9 ; PCOS (polycystic ovarian syndrome) E28.2 ; Polyarthralgia M25.50 and On stimulant medication Z79.899 [facility] [id number] [place] [address] 86505- 2196 Apr, Encounter for immunization Z23 [facility] [address] 92265- 5117 16 Mar, 2015 Allergic rhinitis due to pollen 477.0 [facility] [address] 22058- 3757 14 Mar, 2015 Influenza vaccine administered V04.81 [facility] [id number] [place] [address] 78067- 5837 Mar, [facility] [address] 89038- 0286 Jan, Allergic rhinitis due to pollen 477.0 [facility] [address] 80668- 8709 Jan, Allergic rhinitis due to pollen 477.0 [facility] [address] 25639- 4468 Jan, Allergic rhinitis due to pollen 477.0 [facility] [address] [id number] Jan, Dental examination V72.2 [facility] [id number] [place] [address] 58441- 4508 Dec, Allergic rhinitis due to pollen 477.0 [facility] [id number] [place] [address] 90850- 2895 October, [facility] [address] 51181- 5062 Oct, [facility] [id number] [place] [phone] Oct, [facility] [id number] [place] [phone] Aug, [facility] [place] [facility] [address] [id number] [place] [address] Aug, [facility] [place] [facility] [address] [id number] [place] [address] Aug, [facility] [place] [facility] [address] [id number] [place] [address] Aug, [facility] [place] [facility] [address] [id number] [place] [address] Aug, [facility] [place] [facility] [address] [id number] [place] [address] Aug, [facility] [place] [facility] [address] [id number] [place] [address] Aug, [facility] [place] [facility] [address] [id number] [place] [address] Aug, [facility] [place] [facility] [address] [id number] [place] [address] Jul, [facility] [place] [facility] [address] [id number] [place] [address] 7[address] Jul, [facility] [place] [facility] [address] [id number] [place] [address] 6212 Jul, [facility] [place] [facility] [address] [id number] [place] [address]- 6651 Jul, [facility] [place] [facility] [address] [id number] [place] [address] 6689 Jul, [facility] [place] [facility] [address] [id number] [place] [address] 7431 Jul, [facility] [place] [facility] [address] [id number] [place] [address]- 6041 Jul, [facility] [place] [facility] [address] [id number] [place] [address] 4886 Jul, [facility] [place] [facility] [address] [id number], [place] [address] Jul, [facility] [place] [facility] [address] [id number] [place] [address]- 4115 Jul, [facility] [place] [facility] [address] [id number] [place] [address] 3917 Jul, [facility] [place] [facility] [address] [facility] [id number] [place] [address] 7711 Jun, [facility] [place] [facility] [address] [id number] [place] [address] 3255 Jun, [facility] [place] [facility] [address] [id number] [place] [address]- 9932 Jun, [facility] [place] [facility] [address] [id number] [place] [address] 1976 Jun, [facility] [place] [facility] [address] [facility] [id number] [place] [address]- 7809 Jun, [facility] [place] [facility] [address] [id number] [place] [address]- 8195 Jun, [facility] [place] [facility] [address] [id number] [place] [address]- 5917 May, [facility] [place] [facility] [address] [facility] [id number] [place] [address]- 9061 May, [facility] [place] [facility] [address] [id number] [place] [address]- 9138 May, [facility] [place] [facility] [address] [id number], [place] [address] 9415 May, [facility] [place] [facility] [address] [id number] [place] [address]- 1867 May, [facility] [place] [facility] [address] [id number] [place] [address]- 7580 May, [facility] [place] [facility] [address] [facility] [id number] [place] [address]- 3500 Apr, [facility] [place] [facility] [address] [id number] [place] [address]- 0973 Apr, [facility] [place] [facility] [address] [id number] [place] [address]- 3672 Mar, [facility] [place] [facility] [address] [id number] [place] [address] 2546 Mar, 2013 [facility] [place] [facility] [address] [id number] [place] [address] 2546 Mar, 2013 [facility] [place] [facility] [address] [id number] [place] [address] 2545 Mar, [facility] [place] [facility] [address] [id number] [place] [address]- 4654 Mar, [facility] [place] [facility] [address] [id number] [place] [address]- 3783 Mar, [facility] [place] [facility] [address] [id number] [place] [address]- 1451 Jan, [facility] [place] [facility] [address] [id number] [place] [address]- 5863 Jan, [facility] [place] [facility] [address] [id number] [place] [address]- 5862 Jan, [facility] [place] [facility] [address] [id number] [place] [address]- 7959 Jan, [facility] [place] [facility] [address] [id number] [place] [address]- 3834 Jan, [facility] [place] [facility] [address] [id number] [place] [address]- 0820 Jan, [facility] [place] [facility] [address] [id number] [place] [address] Dec, [facility] [place] [facility] [address] [id number] [place] [address]- 0926 Dec, [facility] [place] [facility] [address] [id number] [place] [address]- 1640 Dec, [facility] [place] [facility] [address] [id number] [place] [address]- 7141 Dec, [facility] [place] [facility] [address] [id number] [place] [address]- 4085 Dec, [facility] [place] [facility] [address] [id number] [place] [address]- 8273 Dec, [facility] [place] [facility] [address] [id number] [place] [address]- 7996 Dec, [facility] [place] [facility] [address] [id number] [place] [address]- 9995 Dec, [facility] [place] [facility] [address] [id number] [place] [address]- 1225 Dec, [facility] [place] [facility] [address] [id number] [place] [address]- 0259 Dec, [facility] [place] [facility] [address] [id number] [place] [address]- 5904 Dec, [facility] [place] [facility] [address] [id number] [place] [address]- 8767 Dec, [facility] [place] [facility] [address] [id number] [place] [address]- 8136 Dec, [facility] [place] [facility] [address] [id number] [place] [address]- 3266 Dec, [facility] [place] [facility] [address] [id number] [place] [address]- 7956 Dec, [facility] [place] [facility] [address] [id number] [place] [address]- 5079 Dec, [facility] [place] [facility] [address] [id number] [place] [address]- 9635 October, [facility] [place] [facility] [address] [id number] [place] [address]- 0993 October, [facility] [place] [facility] [address] [id number] [place] [address]- 2317 October, [facility] [address] [id number] [place] [address]- 0811 October, [facility] [place] [facility] [address] [id number] [place] [address]- 4134 October, [facility] [place] [facility] [address] [id number] [place] [address]- 5930 October, [facility] [place] [facility] [address] [id number] [place] [address]- 2955 Oct, [facility] [place] [facility] [address] [id number] [place] [address]- 3516 Oct, [facility] [place] [facility] [address] [id number] [place] [address]- 6836 Oct, [facility] [place] [facility] [address] [id number] [place] [address]- 8397 Oct, [facility] [place] [facility] [address] [id number] [place] [address]- 0084 Oct, [facility] [place] [facility] [address] [id number] [place] [address]- 2391 Oct, [facility] [place] [facility] [address] [id number] [place] [address]- 2634 Aug, [facility] [place] [facility] [address] [id number] [place] [address]- 8053 Aug, [facility] [place] [facility] [address] [id number] [place] [address]- 9002 Aug, [facility] [place] [facility] [address] [id number] [place] [address]- 6825 Aug, [facility] [place] [facility] [address] [id number] [place] [address]- 3605 Jul, [facility] [place] [facility] [address] [id number] [place] [address]- 3717 Jul, [facility] [place] [facility] [address] [id number] [place] [address]- 0973 Jul, [facility] [address] [id number] [place] [address]- 6291 Jul, [facility] [address] [id number] [place] [address]- 2717 Jun, [facility] [address] [id number] [place] [address]- 2677 Jun, [facility] [address] [id number] [place] [address]- 0584 Jun, [facility] [address] [id number] [place] [address]- 4543 Jun, [facility] [address] [id number] [place] [address]- 6163 Jun, [facility] [address] [id number] [place] [address]- 7683 Jun, [facility] [address] [id number] [place] [address]- 2622 Jun, [facility] [address] [id number] [place] [address]- 2013 Jun, [facility] [address] [id number] [place] [address]- 7580 Jun, [facility] [address] [id number] [place] [address]- 1753 Jun, [facility] [place] [facility] [address] [id number] [place] [address]- 1718 Jun, [facility] [place] [facility] [address] [id number] [place] [address]- 9136 May, [facility] [place] [facility] [address] [id number] [place] [address]- 2546 May, [facility] [address] [id number], [place] [address]- 7829 May, [facility] [place] [facility] [address] [id number] [place] [address]- 4453 May, [facility] [place] [facility] [address] [id number] [place] [address]- 7273 May, [facility] [place] [facility] [address] [id number] [place] [address]- 8788 May, [facility] [place] [facility] [address] [id number] [place] [address]- 7037 May, [facility] [place] [facility] [address] [id number] [place] [address]- 5692 Apr, [facility] [place] [facility] [address] [id number] [place] [address]- 9540 Apr, [facility] [place] [facility] [address] [id number] [place] [address]- 7335 Apr, [facility] [place] [facility] [address] [id number] [place] [address]- 7521 Apr, [facility] [place] [facility] [address] [id number] [place] [address]- 6600 27 Mar, 2013 [facility] [place] [facility] [address] [id number] [place] [address]- 2547 26 Mar, 2013 [facility] [place] [facility] [address] [id number], [place] [address] 2545 26 Mar, 2013 [facility] [place] [facility] [address] [id number] [place] [address]- 2542 23 Mar, 2013 [facility] [place] [facility] [address] [id number] [place] [address] 2540 04 Mar, 2013 [facility] [place] [facility] [address] [id number] [place] [address]- 2542 03 Mar, 2013 [facility] [place] [facility] [address] [id number] [place] [address]- 254 30 Jan, 2013 [facility] [place] [facility] [address] [id number] [place] [address]- 5838 Jan, [facility] [address] [id number] [place] [address]- 3813 Jan, [facility] [address] [id number] [place] [address]- 7905 Jan, [facility] [address] [id number] [place] [address]- 9192 Jan, [facility] [address] [id number] [place] [address]- 5842 Dec, [facility] [address] [id number] [place] [address]- 7521 Dec, [facility] [address] [id number] [place] [address]- 6275 Dec, [facility] [address] [id number] [place] [address]- [address] Dec, [facility] [address] [id number] [place] [address]- 0865 Dec, [facility] [address] [id number] [place] [address]- 4[address] Dec, [facility] [address] [id number] [place] [address]- 5092 Dec, [facility] [address] [id number] [place] [address]- [address] Dec, [facility] [address] [id number] [place] [address]- 5020 October, [facility] [place] [facility] [address] [id number] [place] [address]- [address], [facility] [address] [id number] [place] [address]- 9366 October, [facility] [address] [id number] [place] [address]- 6083 Oct, [facility] [place] [facility] [address] [id number] [place] [address]- 1790 18 Oct, 2012 [facility] [place] [facility] [address] [id number] [place] [address]- 4740 Oct, [facility] [place] [facility] [address] [id number] [place] [address]- 0253 Oct, [facility] [place] [facility] [address] [id number] [place] [address]- 1133 Aug, [facility] [place] [facility] [address] [id number] [place] [address]- 8863 Aug, [facility] [place] [facility] [address] [id number] [place] [address]- 2529 Aug, [facility] [place] [facility] [address] [id number] [place] [address]- 6449 Jul, [facility] [place] [facility] [address] [id number] [place] [address]- 5419 May, [facility] [place] [facility] [address] [id number] [place] [address]- 6410 May, [facility] [place] [facility] [address] [facility] [id number] [place] [address]- 5476 Apr, [facility] [place] [facility] [address] [id number] [place] [address]- 4734 Apr, [facility] [place] [facility] [address] [id number], [place] [address]- 7208 Apr, [facility] [place] [facility] [address] [id number] [place] [address]- 4898 Apr, [facility] [place] [facility] [address] [id number] [place] [address]- 3785 Apr, [facility] [place] [facility] [address] [id number] [place] [address]048 Apr, [facility] [place] [facility] [address] [id number] [place] [address]- 2159 Apr, [facility] [place] [facility] [address] [id number] [place] [address]- 8482 Apr, [facility] [place] [facility] [address] [id number] [place] [address]- 2060 Apr, [facility] [place] [facility] [address] [id number] [place] [address]- 5791 Apr, [facility] [place] [facility] [address] [id number] [place] [address]- 0323 Apr, [facility] [place] [facility] [address] [id number] [place] [address], [place] [address]- 6032 Apr, [facility] [place] [facility] [address] [id number] [place] [address]- 6183 Mar, [facility] [place] [facility] [address] [id number] [place] [address]- 6422 Jan, [facility] [place] [facility] [address] [id number] [place] [address]- 6248 Dec, [facility] [place] [facility] [address] [id number] [place] [address]- 6746 October, [facility] [place] [facility] [address] [id number] [place] [address]- 8803 Oct, [facility] [place] [facility] [address] [id number] [place] [address]- 1056 Oct, [facility] [place] [facility] [address] [id number] [place] [address]- 2342 Oct, [facility] [place] [facility] [address] [id number] [place] [address]- 2287 Aug, [facility] [place] [facility] [address] [id number] [place] [address]- 9436 Aug, [facility] [place] [facility] [address] [facility] [id number] [place] [address]- 9161 Aug, [facility] [place] [facility] [id number], [place] [address]- 4756 16 Aug, 2011 [facility] [id number] [address] Aug, [facility] [id number] [address] Aug, [facility] [id number], [place] [address]- 8160 Jun, [facility] [id number], [place] [address]- 1500 Apr, [facility] [id number], [place] [address]- 0074 Jun, [facility] [id number], [place] [address]- 9162 Jun, [facility] [id number], [place] [address]- 5823 May, [facility] [id number], [place] [address]- 4949 May, [facility] [id number], [place] [address]- 1722 Apr, [facility] [id number], [place] [address]- 0795 13 Apr, 2009 IMMUNIZATIONS No Known Immunizations SOCIAL HISTORY Never Assessed REASON FOR VISIT Lab (walk-in) PLAN OF CARE Activity Details Pending Test PERIPHERAL BLOOD SMEAR Pending Test CMP Pending Test CBC w/MANUAL DIFF Pending Test ESR/SED RATE Pending Test CRP Pending Test DIFFERENTIAL, MANUAL VITAL SIGNS MEDICATIONS Unknown Medications RESULTS No Results PROCEDURES Procedure Date Ordered Result Body Site COMPREHEN METABOLIC PANEL Apr 12, 2018 C-REACTIVE PROTEIN Apr 12, 2018 MANUAL CELL COUNT, EACH Apr 12, 2018 RBC SED RATE, AUTOMATED Apr 12, 2018 VENIPUNCT, ROUTINE* Apr 12, 2018 BLOOD SMEAR INTERPRETATION Apr 12, 2018 INSTRUCTIONS MEDICATIONS ADMINISTERED No Known Medications MEDICAL (GENERAL) HISTORY Type Description Date Medical History Hypothyroid Medical History Asthma Medical History Migraine Headaches Medical History Depression Medical History ADHD Medical History GERD Medical History Allergic Rhinitis Medical History PCOS Surgical History Left wrist plate 2003 Surgical History 2003 Surgical History 2009 Surgical History EGD 2011 Surgical History Hiatal Hernia Repair and Fundoplication 2013 Surgical History 2014 Surgical History Wound Dehisance 2014 Hospitalization History see above surgeries Hospitalization History Anaphylactic shock-[facility] 08/23/16
--- OUTSIDE RECORDS SUMMARY | 2018-07-18 07:10 | XMS REPORT ---
Author Author BRANDY SAGAR [facility] Address [address] [place] [address] Care Team Providers Care Inside [employer] Name Role Phone BRANDYTEZ HOYTHANY Unavailable PROBLEMS Type Condition ICD9-CM Code YLL24-PO Code Onset Dates Condition Status SNOMED Code Problem Migraine with aura and without status migrainosus, not intractable G43.109 Active 6906383 Problem PCOS (polycystic ovarian syndrome) E28.2 Active 74030078 Problem Uncomplicated severe persistent asthma J45.50 Active 635609233 Problem Severe persistent asthma with exacerbation J45.51 Active 481054383 Problem Other elevated white blood cell (WBC) count D72.828 Active 441397350 Problem Multiple food allergies Z91.018 Active 737068008 Problem Pure hypercholesterolemia E78.00 Active 011704325 Problem Current chronic use of inhaled steroid Z79.51 Active 245619044 Problem Asthma exacerbation J45.901 Active 789273587 Problem ADD (attention deficit disorder) F90.0 Active 205578072 Problem Allergic rhinitis due to pollen J30.1 Active 36027405 Problem Vitamin D deficiency E55.9 Active 26533963 Problem Major depressive disorder, recurrent episode, mild F33.0 Active 957619422 Problem Acquired hypothyroidism E03.9 Active 657558805 Problem Gastroesophageal reflux disease without esophagitis K21.9 Active 255207922 ALLERGIES No Information ENCOUNTERS Encounter Location Date Diagnosis [facility] [id number] [address] Apr, Encounter for immunization Z23 [facility] [id number] [place] [address] 02851- 6387 Apr, Recurrent infections B99.9 [facility] [id number] [address] Apr, Other elevated white blood cell (WBC) count D72.828 ; ADD ( attention deficit disorder) F90.0 ; Recurrent infections B99.9 and Uncomplicated severe persistent asthma J45.50 [place] [address] 58057- 0149 Apr, ADD (attention deficit disorder) F90.0 [place] [id number] [place] [address] 65611- 0932 Mar, Allergic rhinitis due to pollen J30.1 [place] [address] 90191- 4664 Mar, Severe persistent asthma with exacerbation J45.51 and Haemophilus infection A49.2 [place] [address] 01696- 8422 Mar, [place] [address] 10607- 7974 Mar, Multiple food allergies Z91.018 [place] [address] 73511- 3498 Jan, Allergic rhinitis due to pollen J30.1 [place] [address] 20754- 0264 Jan, [facility] [id number] [place] [address] 48092- 0056 Jan, Allergic reaction, initial encounter T78.40XA [place] [address] 27907- 5804 Dec, Allergic rhinitis due to pollen J30.1 [facility] [id number] [place] [address] 51019- 1737 Dec, [place] [address] 82655- 6453 Dec, Allergic rhinitis due to pollen J30.1 [facility] [id number] [place] [address] 37868- 9657 Dec, ADD (attention deficit disorder) F90.0 [facility] [id number] [place] [address] 54760- 4666 Dec, ADD (attention deficit disorder) F90.0 and Uncomplicated severe persistent asthma J45.50 [facility] [id number] [place] [address] 03623- 2595 Dec, Allergic rhinitis due to pollen J30.1 [facility] [id number] [place] [address] 87742- 5422 Dec, [facility] [id number] [place] [address] 77590- 6599 October, Allergic rhinitis due to pollen J30.1 [place] [id number] [place] [address] 88598- 9928 October, Allergic rhinitis due to pollen J30.1 [place] [id number] [place] [address] 31443- 6183 Oct, [facility] [id number] [place] [address] 43093- 4590 Oct, Allergic rhinitis due to pollen J30.1 [facility] [id number] [place] [address] 82569- 4028 Oct, [place] [id number] [place] [address] 90772- 3157 Oct, Allergic rhinitis due to pollen J30.1 [facility] [id number] [place] [address] 04285- 7006 Oct, Severe persistent asthma with exacerbation J45.51 and Pneumonia due to Haemophilus influenzae, unspecified laterality, unspecified part of lung J14 [place] [id number] [place] [address] 48224- 4362 Oct, ADD (attention deficit disorder) F90.0 [place] [id number] [place] [address] 05652- 2690 Aug, Haemophilus influenzae infection A49.2 [facility] [address] 51204- 1887 Aug, Cough productive of purulent sputum R05 [place] [address] 27353- 3341 Aug, [place] [address] 90809- 6761 Aug, Pulmonary congestion R09.89 [place] [address] 33830- 4318 Aug, Severe persistent asthma with exacerbation J45.51 ; Hiatal hernia K44.9 and Gastroesophageal reflux disease without esophagitis K21.[address] 99767- 5920 Aug, Other elevated white blood cell (WBC) count D72.[address] 50835- 5821 Aug, Uncomplicated severe persistent asthma J45.50 [place] [address] 34573- 1128 Aug, Pure hypercholesterolemia E78.00 ; Uncomplicated severe persistent asthma J45.50 and Acquired hypothyroidism E03.[address] 97859- 0515 Aug, Acquired hypothyroidism E03.9 ; Pure hypercholesterolemia E78.00 and Uncomplicated severe persistent asthma J45.50 [place] [address] 36312- 8813 15 Aug, 2017 Allergic rhinitis due to pollen J30.1 [place] [address] 91531- 3115 Aug, Allergic rhinitis due to pollen J30.1 [place] [address] 94146- 3182 Aug, [facility] [place] [address] [id number] Jul, Pharyngitis, unspecified etiology J02.9 and Lymphadenopathy R59.1 [place] [address] 17986- 2117 Jul, ADD (attention deficit disorder) F90.0 [place] [address] 12183- 1237 Jul, Allergic rhinitis due to pollen J30.1 [place] [address] 97237- 8625 Jul, Dental examination Z01.20 [place] [address] 96334- 7141 Jun, Cough productive of purulent sputum R05 [place] [address] 66964- 8787 Jun, Allergic rhinitis due to pollen J30.1 [place] [address] 02463- 0395 Jun, [place] [address] 00799- 9257 Jun, Allergic rhinitis due to pollen J30.1 [place] [id number] [place] [address] 72539- 1224 Jun, Allergic rhinitis due to pollen J30.1 [place] [id number] [place] [address] 74436- 3507 May, Allergic rhinitis due to pollen J30.1 [place] [id number] [place] [address] 10142- 4222 May, Pneumonia due to Haemophilus influenzae, unspecified laterality, unspecified part of lung J14 [place] [address] 88859- 9120 May, Allergic rhinitis due to pollen J30.1 [place] [address] 13266- 4461 May, Other adverse food reactions, not elsewhere classified, initial encounter T78.1XXA and Pneumonia due to Haemophilus influenzae, unspecified laterality, unspecified part of lung J14 [place] [id number] [place] [address] 18969- 1483 13 May, 2017 Pneumonia due to Haemophilus influenzae, unspecified laterality, unspecified part of lung J14 [place] [address] 16693- 0250 May, Multiple food allergies Z91.018 ; Uncomplicated severe persistent asthma J45.50 ; Cough productive of purulent sputum R05 and Uses central nervous system stimulants F15.[address] 29193- 4678 Apr, Allergic rhinitis due to pollen J30.[address] 04444- 7851 Apr, Allergic rhinitis due to pollen J30.[address] 27978- 0498 Apr, Allergic rhinitis due to pollen J30.[address] 91504- 2548 Apr, ADD (attention deficit disorder) F90.[address] 97626- 3675 Mar, Allergic rhinitis due to pollen J30.[address] 44867- 6327 21 Mar, 2017 Encounter for immunization Z23 [address] 69163- 5045 19 Mar, [address] 30396- 1892 14 Mar, 2017 Allergic rhinitis due to pollen J30.[address] 21597- 1402 Mar, Allergic rhinitis due to pollen J30.1 [place] [address] [place] [address] 34900- 4959 Jan, Allergic rhinitis due to pollen J30.1 [place] [id number] [place] [address] 90741- 9943 Jan, Allergic rhinitis due to pollen J30.1 [place] [id number] [place] [address] 91969- 8936 Dec, Uncomplicated severe persistent asthma J45.50 [place] [id number] [place] [address] 97299- 9187 Dec, Allergic rhinitis due to pollen J30.1 [place] [id number] [place] [address] 40383- 9122 Dec, Allergic rhinitis due to pollen J30.1 [place] [id number] [place] [address] 11232- 6687 Dec, Allergic rhinitis due to pollen J30.1 [place] [id number] [place] [address] 29347- 4024 Dec, ADD (attention deficit disorder) F90.0 [place] [id number] [place] [address] 41878- 5556 Dec, Allergic rhinitis due to pollen J30.1 [place] [id number] [place] [address] 29471- 4155 Dec, Visit for TB skin test Z11.1 and Screening for tuberculosis Z11.1 [place] [id number] [place] [address] 07451- 3539 Dec, Uncomplicated severe persistent asthma J45.50 ; Palpitations R00.2 ; Pericardial effusion (noninflammatory) I31.3 and Chest discomfort R07.89 [place] [id number] [place] [address] 87020- 7255 Dec, Allergic rhinitis due to pollen J30.1 [place] [address] [place] [address] 12239- 5753 Dec, Chronic cough R05 [facility] [id number] [place] [address] 46047- 7456 Dec, [place] [id number] [place] [address] 70039- 4317 Dec, Allergic rhinitis due to pollen J30.1 [facility] [id number] [place] [address] 72915- 3278 Dec, Allergic rhinitis due to pollen J30.1 [place] [id number] [place] [address] 52321- 4379 Dec, Chronic cough R05 [place] [id number] [place] [address] 94857- 3688 October, Allergic rhinitis due to pollen J30.1 [place] [id number] [place] [address] 19509- 0570 October, Allergic rhinitis due to pollen J30.1 [place] [id number] [place] [address] 82677- 6835 October, [place] [id number] [place] [address] 51932- 0379 October, Asthma exacerbation J45.901 [place] [id number] [place] [address] 86783- 2012 October, Asthma exacerbation J45.901 and Current chronic use of inhaled steroid Z79.51 [place] [id number] [place] [address] 59979- 2565 October, Uncomplicated severe persistent asthma J45.50 [place] [id number] [place] [address] 71496- 9219 October, Allergic rhinitis due to pollen J30.1 [place] [id number] [place] [address] 26993- 3681 Oct, [place] [id number] [place] [address] 11659- 6447 Oct, Asthma exacerbation J45.901 and Sputum production R05 [place] [address] 54361- 1531 Oct, Asthma exacerbation J45.901 [place] [address] 61081- 4872 Oct, ADD (attention deficit disorder) F90.0 [place] [address] 44515- 2307 Oct, ADD (attention deficit disorder) F90.0 [place] [address] 74361- 7981 Aug, Allergic rhinitis due to pollen J30.1 [place] [address] 48907- 5550 Aug, Atypical pneumonia J18.9 [place] [address] 87732- 0815 Aug, Allergic rhinitis due to pollen J30.1 [place] [address] 69834- 2842 Aug, Acquired hypothyroidism E03.9 [place] [address] 93890- 6785 Aug, Multiple food allergies Z91.018 ; Elevated blood pressure reading R03.0 and Anaphylaxis, subsequent encounter T78.2XXD [place] [address] [id number] Aug, [place] [address] 57315- 3635 Aug, Anaphylaxis, initial encounter T78.2XXA [place] [address] 14946- 3747 Aug, Allergic rhinitis due to pollen J30.1 [place] [id number] [place] [address] 55782- 8549 16 Aug, 2016 Dental examination Z01.20 [place] [id number] [place] [address] 51829- 9444 09 Aug, 2016 Allergic rhinitis due to pollen J30.1 [place] [id number] [place] [address] 43016- 7894 06 Aug, 2016 Acquired hypothyroidism E03.9 and Pure hypercholesterolemia E78.00 [place] [address] 02456- 7223 03 Aug, 2016 ADD (attention deficit disorder) F90.0 ; Acquired hypothyroidism E03.9 and Pure hypercholesterolemia E78.00 [place] [id number] [place] [address] 93319- 8437 02 Aug, 2016 Asthma exacerbation J45.901 [place] [address] 22250- 3986 Jul, Allergic rhinitis due to pollen J30.1 [place] [id number] [place] [address] 08725- 3627 Jul, Allergic rhinitis due to pollen J30.1 [place] [id number] [place] [address] 96025- 9402 Jul, [place] [id number] [place] [address] 55648- 0208 Jul, Allergic rhinitis due to pollen J30.1 [place] [id number] [place] [address] 11270- 4944 Jul, 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 (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 and ADD ( attention deficit disorder) F90.0 [place] [id number] [place] [address] 51963- 7303 Jul, Other terminal gauger (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 and ADD ( attention deficit disorder) F90.0 [place] [address] [address]- 2510 Jul, [facility] [id number] [place] [address] 10169- 3875 Jun, Allergic rhinitis due to pollen J30.1 [facility] [id number] [place] [address] 97745- 9294 Jun, Allergic rhinitis due to pollen J30.1 [facility] [id number] [place] [address] 39006- 7251 Jun, [facility] [id number] [place] [address] 81634- 2088 May, Allergic rhinitis due to pollen J30.1 [place] [id number] [place] [address] 83999- 7115 May, Allergic rhinitis due to pollen J30.1 [place] [id number] [place] [address] 27947- 8972 Apr, Allergic rhinitis due to pollen J30.1 [place] [id number] [place] [address] 88629- 8419 Apr, Allergic rhinitis due to pollen J30.1 [place] [id number] [place] [address] 02911- 5633 Apr, Encounter for immunization Z23 [place] [id number] [place] [address] 09468- 5582 Apr, [place] [id number] [place] [address] 59383- 1189 Mar, Allergic rhinitis due to pollen J30.1 [place] [id number] [place] [address] 21181- 3756 Mar, Multiple allergies Z88.9 [place] [address] [place] [address] 68673- 9841 Mar, Candidal vaginitis B37.3 [place] [id number] [place] [address] 50465- 0724 Mar, Allergic rhinitis due to pollen J30.1 [facility] [id number] [place] [address] 47257- 1573 Jan, Asthma exacerbation J45.901 ; Fatigue, unspecified type R53.83 and Community acquired pneumonia J18.9 [facility] [id number] [place] [address] [id number] Jan, Encounter for dental examination Z01.20 [facility] [id number] [place] [address] 49014- 3919 Jan, Allergic rhinitis due to pollen J30.1 [facility] [id number] [place] [address] 08529- 2174 Dec, Allergic rhinitis due to pollen J30.1 [facility] [id number] [place] [address] 93985- 5330 Dec, [facility] [id number] [place] [address] 60215- 7475 Dec, Allergic rhinitis due to pollen J30.1 [facility] [id number] [place] [address] 59232- 6970 Dec, [facility] [id number] [place] [address] 71665- 0850 Dec, [facility] [id number] [place] [address] 87889- 4794 Dec, [facility] [id number] [place] [address] 84779- 3223 Dec, Allergic rhinitis due to pollen J30.1 [facility] [id number] [place] [address] 90900- 5658 Dec, [facility] [id number] [place] [address] 58154- 8249 Dec, [facility] [id number] [place] [address] 23496- 5134 Dec, Allergic rhinitis due to pollen J30.1 [place] [id number] [place] [address] 68715- 1834 October, Allergic rhinitis due to pollen J30.1 [place] [id number] [place] [address] 52905- 0480 October, Allergic rhinitis due to pollen J30.1 [place] [id number] [place] [address] 45553- 8032 October, [place] [id number] [place] [address] 77505- 0173 October, [place] [id number] [place] [address] 39506- 5439 October, ADD (attention deficit disorder) F90.0 ; Major depressive disorder, recurrent episode, mild F33.0 and Uncomplicated severe persistent asthma J45.50 [place] [id number] [place] [address] 17342- 5375 Oct, Allergic rhinitis due to pollen J30.1 [place] [id number] [place] [address] 10463- 3730 Oct, ADD (attention deficit disorder) F90.0 [place] [id number] [place] [address] 33431- 6408 Oct, Allergic rhinitis due to pollen 477.0 [place] [id number] [place] [address] 16163- 1183 Aug, Allergic rhinitis due to pollen 477.0 [place] [id number] [place] [address] 95196- 4026 Aug, 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 [place] [id number] [place] [address] 40698- 5571 Aug, [place] [id number] [place] [address] 96853- 7691 Aug, Allergic rhinitis due to pollen 477.0 [facility] [id number] [place] [address] 58713- 5938 Aug, Allergic rhinitis due to pollen 477.0 [facility] [id number] [place] [address] 64427- 9143 Aug, Allergic rhinitis due to pollen 477.0 [place] [address] 19237- 5371 Aug, Exposure to influenza Z20.828 [facility] [address] [id number] Aug, Encounter for dental examination and cleaning without abnormal findings Z01.20 [place] [id number] [place] [address] 07063- 2662 Aug, Allergic rhinitis due to pollen J30.1 [place] [id number] [place] [address] 65483- 6275 Aug, [place] [id number] [place] [address] 54113- 8741 Aug, 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 [place] [id number] [place] [address] 97512- 7797 Jul, [place] [id number] [place] [address] 03984- 1499 Jul, Allergic rhinitis due to pollen 477.0 [place] [id number] [place] [address] 64906- 2959 Jul, [place] [id number] [place] [address] 69569- 8478 Jul, Allergic rhinitis due to pollen 477.0 [place] [id number] [place] [address] 58825- 8563 Jun, ADD (attention deficit disorder) F90.0 ; Acquired hypothyroidism E03.9 ; PCOS (polycystic ovarian syndrome) E28.2 ; Polyarthralgia M25.50 and On stimulant medication Z79.899 [facility] [id number] [place] [address] 11380- 0806 Apr, Encounter for immunization Z23 [facility] [address] 89338- 4853 16 Mar, 2015 Allergic rhinitis due to pollen 477.0 [facility] [address] 49923- 1021 14 Mar, 2015 Influenza vaccine administered V04.81 [facility] [id number] [place] [address] 76746- 1238 Mar, [facility] [address] 34057- 7625 Jan, Allergic rhinitis due to pollen 477.0 [facility] [address] 84982- 4746 Jan, Allergic rhinitis due to pollen 477.0 [facility] [address] [address] Jan, Allergic rhinitis due to pollen 477.0 [facility] [address] [id number] Jan, Dental examination V72.2 [facility] [id number] [place] [address]- [address] Dec, Allergic rhinitis due to pollen 477.0 [facility] [id number] [place] [address]- [address] October, [facility] [address] [address] Oct, [facility] [id number] [place] [address]- [address]24 Oct, [facility] [id number] [place] [address]- [address] Aug, [facility] [place] [facility] [address] [id number] [place] [address] Aug, [facility] [place] [facility] [address] [id number] [place] [address] Aug, [facility] [place] [facility] [address] [id number] [place] [address] Aug, [facility] [place] [facility] [address] [id number] [place] [address] Aug, [facility] [place] [facility] [address] [id number] [place] [address] Aug, [facility] [place] [facility] [address] [id number] [place] [address] Aug, [facility] [place] [facility] [address] [id number] [place] [address] Aug, [facility] [place] [facility] [address] [id number] [place] [address] Jul, [facility] [place] [facility] [address] [id number] [place] [address] Jul, [facility] [place] [facility] [address] [id number] [place] [address] Jul, [facility] [place] [facility] [address] [id number] [place] [address] Jul, [facility] [place] [facility] [address] [id number] [place] [address] Jul, [facility] [place] [facility] [address] [id number] [place] [address] Jul, [facility] [place] [facility] [address] [id number] [place] [address] Jul, [facility] [place] [facility] [address] [id number] [place] [address] Jul, [facility] [place] [facility] [address] [id number], [place] [address] Jul, [facility] [place] [facility] [address] [id number] [place] [address]34 Jul, [facility] [place] [facility] [address] [id number] [place] [address] 69[address] Jul, [facility] [place] [facility] [address] [facility] [id number] [place] [address] 66[address] Jun, [facility] [place] [facility] [address] [id number] [place] [address] 7514 Jun, [facility] [place] [facility] [address] [id number] [place] [address] 4816 Jun, [facility] [place] [facility] [address] [id number] [place] [address] 9775 Jun, [facility] [place] [facility] [address] [facility] [id number] [place] [address] 9924 Jun, [facility] [place] [facility] [address] [id number] [place] [address] 4301 Jun, [facility] [place] [facility] [address] [id number] [place] [address]- 0485 May, [facility] [place] [facility] [address] [facility] [id number] [place] [address] 3103 May, [facility] [place] [facility] [address] [id number] [place] [address] May, [facility] [place] [facility] [address] [id number] [address] May, [facility] [place] [facility] [address] [id number] [place] [address]- 8938 May, [facility] [place] [facility] [address] [id number] [place] [address] 6100 May, [facility] [place] [facility] [address] [facility] [id number] [place] [address]- [address]129 Apr, [facility] [place] [facility] [address] [id number] [place] [address]- 7202 Apr, [facility] [place] [facility] [address] [id number] [place] [address] 4515 Mar, [facility] [place] [facility] [address] [id number] [place] [address] 2546 Mar, 2013 [facility] [place] [facility] [address] [id number] [place] [address] 2546 Mar, 2013 [facility] [place] [facility] [address] [id number] [place] [address] 2542 Mar, [facility] [place] [facility] [address] [id number] [place] [address] 378[address] Mar, [facility] [place] [facility] [address] [id number] [place] [address] 3765 Mar, [facility] [place] [facility] [address] [id number] [place] [address]- 2078 Jan, [facility] [place] [facility] [address] [id number] [place] [address]- 4740 Jan, [facility] [place] [facility] [address] [id number] [place] [address]- 0529 Jan, [facility] [place] [facility] [address] [id number] [place] [address]- 8969 Jan, [facility] [place] [facility] [address] [id number] [place] [address]- 7957 Jan, [facility] [place] [facility] [address] [id number] [place] [address] 6914 Jan, [facility] [place] [facility] [address] [id number] [place] [address] Dec, [facility] [place] [facility] [address] [id number] [place] [address]- 8056 Dec, [facility] [place] [facility] [address] [id number] [place] [address]- 0789 Dec, [facility] [place] [facility] [address] [id number] [place] [address]- 9235 Dec, [facility] [place] [facility] [address] [id number] [place] [address]- 5569 Dec, [facility] [place] [facility] [address] [id number] [place] [address]- 6108 Dec, [facility] [place] [facility] [address] [id number] [place] [address]- 0804 Dec, [facility] [place] [facility] [address] [id number] [place] [address]- 2057 Dec, [facility] [place] [facility] [address] [id number] [place] [address]- 5421 Dec, [facility] [place] [facility] [address] [id number] [place] [address]- 8756 Dec, [facility] [place] [facility] [address] [id number] [place] [address]- 3455 Dec, [facility] [place] [facility] [address] [id number] [place] [address]- 8138 Dec, [facility] [place] [facility] [address] [id number] [place] [address]- 7498 Dec, [facility] [place] [facility] [address] [id number] [place] [address]- 4680 Dec, [facility] [place] [facility] [address] [id number] [place] [address]- 6299 Dec, [facility] [place] [facility] [address] [id number] [place] [address]- 1764 Dec, [facility] [place] [facility] [address] [id number] [place] [address]- 0260 October, [facility] [place] [facility] [address] [id number] [place] [address]- 7368 October, [facility] [place] [facility] [address] [id number] [place] [address]- 7695 October, [facility] [address] [id number] [place] [address]- 1191 October, [facility] [place] [facility] [address] [id number] [place] [address]- 5076 October, [facility] [place] [facility] [address] [id number] [place] [address]- 3103 October, [facility] [place] [facility] [address] [id number] [place] [address]- 6552 Oct, [facility] [place] [facility] [address] [id number] [place] [address]- 5417 Oct, [facility] [place] [facility] [address] [id number] [place] [address]- 6593 Oct, [facility] [place] [facility] [address] [id number] [place] [address]- 1095 Oct, [facility] [place] [facility] [address] [id number] [place] [address]- 9399 Oct, [facility] [place] [facility] [address] [id number] [place] [address]- 5376 Oct, [facility] [place] [facility] [address] [id number] [place] [address]- 2675 Aug, [facility] [place] [facility] [address] [id number] [place] [address]- 9856 Aug, [facility] [place] [facility] [address] [id number] [place] [address]- 8689 Aug, [facility] [place] [facility] [address] [id number] [place] [address]- 6299 Aug, [facility] [place] [facility] [address] [id number] [place] [address]- 3493 Jul, [facility] [place] [facility] [address] [id number] [place] [address]- 5386 Jul, [facility] [place] [facility] [address] [id number] [place] [address]- 5441 Jul, [facility] [address] [id number] [place] [address]- 4053 Jul, [facility] [address] [id number] [place] [address]- 0386 Jun, [facility] [address] [id number] [place] [address]- 2931 Jun, [facility] [address] [id number] [place] [address]- 3311 Jun, [facility] [address] [id number] [place] [address]- 6337 Jun, [facility] [address] [id number] [place] [address]- 8383 Jun, [facility] [address] [id number] [place] [address]- 5620 Jun, [facility] [address] [id number] [place] [address]- 2141 Jun, [facility] [address] [id number] [place] [address]- 3031 Jun, [facility] [address] [id number] [place] [address]- 9238 Jun, [facility] [address] [id number] [place] [address]- 4905 Jun, [facility] [place] [facility] [address] [id number] [place] [address]- 6687 Jun, [facility] [place] [facility] [address] [id number] [place] [address]- 2806 May, [facility] [place] [facility] [address] [id number] [place] [address]- 2546 May, [facility] [address] [id number], [place] [address] May, [facility] [place] [facility] [address] [id number] [place] [address]- 7041 May, [facility] [place] [facility] [address] [id number] [place] [address]- 6574 May, [facility] [place] [facility] [address] [id number] [place] [address]- 4174 May, [facility] [place] [facility] [address] [id number] [place] [address]- 7396 May, [facility] [place] [facility] [address] [id number] [place] [address]- 8604 Apr, [facility] [place] [facility] [address] [id number] [place] [address]- 2553 Apr, [facility] [place] [facility] [address] [id number] [place] [address]- 3673 Apr, [facility] [place] [facility] [address] [id number] [place] [address]- 0733 Apr, [facility] [place] [facility] [address] [id number] [place] [address]- 9033 27 Mar, 2013 [facility] [place] [facility] [address] [id number] [place] [address]- 2549 26 Mar, 2013 [facility] [place] [facility] [address] [id number], [place] [address] 2547 26 Mar, 2013 [facility] [place] [facility] [address] [id number] [place] [address]- 2545 23 Mar, 2013 [facility] [place] [facility] [address] [id number] [place] [address] 2541 04 Mar, 2013 [facility] [place] [facility] [address] [id number] [place] [address]- 2543 03 Mar, 2013 [facility] [place] [facility] [address] [id number] [place] [address]- 2547 30 Jan, 2013 [facility] [place] [facility] [address] [id number] [place] [address]- 4759 Jan, [facility] [address] [id number] [place] [address]- 0534 Jan, [facility] [address] [id number] [place] [address]- 9988 Jan, [facility] [address] [id number] [place] [address]- 8867 Jan, [facility] [address] [id number] [place] [address]- 8867 Dec, [facility] [address] [id number] [place] [address]- 4340 Dec, [facility] [address] [id number] [place] [address]- 6702 Dec, [facility] [address] [id number] [place] [address]- 3618 Dec, [facility] [address] [id number] [place] [address]- 4586 Dec, [facility] [address] [id number] [place] [address]- 4428 Dec, [facility] [address] [id number] [place] [address]- 5332 Dec, [facility] [address] [id number] [place] [address]- 0203 Dec, [facility] [address] [id number] [place] [address]- 9778 October, [facility] [place] [facility] [address] [id number] [place] [address]- 6949 October, [facility] [address] [id number] [place] [address]- 4786 October, [facility] [address] [id number] [place] [address]- 5147 Oct, [facility] [place] [facility] [address] [id number] [place] [address]- 3041 18 Oct, 2012 [facility] [place] [facility] [address] [id number] [place] [address]- 9302 Oct, [facility] [place] [facility] [address] [id number] [place] [address]- 8409 Oct, [facility] [place] [facility] [address] [id number] [place] [address]- 5523 Aug, [facility] [place] [facility] [address] [id number] [place] [address]- 3687 Aug, [facility] [place] [facility] [address] [id number] [place] [address]- 6814 Aug, [facility] [place] [facility] [address] [id number] [place] [address]- 1060 Jul, [facility] [place] [facility] [address] [id number] [place] [address]- 2549 May, [facility] [place] [facility] [address] [id number] [place] [address]- 8153 May, [facility] [place] [facility] [address] [facility] [id number] [place] [address]- 9353 Apr, [facility] [place] [facility] [address] [id number] [place] [address]- 0154 Apr, [facility] [place] [facility] [address] [id number], [place] [address]- 8926 Apr, [facility] [place] [facility] [address] [id number] [place] [address]- 9183 Apr, [facility] [place] [facility] [address] [id number] [place] [address]- 8674 Apr, [facility] [place] [facility] [address] [id number] [place] [address] Apr, [facility] [place] [facility] [address] [id number] [place] [address]- 7814 Apr, [facility] [place] [facility] [address] [id number] [place] [address]- 9045 Apr, [facility] [place] [facility] [address] [id number] [place] [address]- 8055 Apr, [facility] [place] [facility] [address] [id number] [place] [address]- 8922 Apr, [facility] [place] [facility] [address] [id number] [place] [address]- 2446 Apr, [facility] [place] [facility] [address] [id number] [place] [address], [place] [address]- 8121 Apr, [facility] [place] [facility] [address] [id number] [place] [address]- 2974 Mar, [facility] [place] [facility] [address] [id number] [place] [address]- 1192 Jan, [facility] [place] [facility] [address] [id number] [place] [address]- 5469 Dec, [facility] [place] [facility] [address] [id number] [place] [address]- 3783 October, [facility] [place] [facility] [address] [id number] [place] [address]- 3094 Oct, [facility] [place] [facility] [address] [id number] [place] [address]- 2550 Oct, [facility] [place] [facility] [address] [id number] [place] [address]- 1958 Oct, [facility] [place] [facility] [address] [id number] [place] [address]- 6901 Aug, [facility] [place] [facility] [address] [id number] [place] [address]- 5226 Aug, [facility] [place] [facility] [address] [facility] [id number] [place] [address]- 6294 Aug, [facility] [place] [facility] [id number] [address] 1408 16 Aug, 2011 [facility] [id number], [place] [address]- 2467 Aug, [facility] [id number], [place] [address]- 2947 Aug, [facility] [id number], [place] [address]- 8231 Jun, [facility] [id number], [place] [address]- 1248 Apr, [facility] [id number], [place] [address]- 2725 Jun, [facility] [id number], [place] [address]- 8033 Jun, [facility] [id number], [place] [address]- 6619 May, [facility] [id number], [place] [address]- 5587 May, [facility] [address] [id number], [place] [address]- 5674 Apr, [facility] [address] [id number], [place] [address] 8079 13 Apr, 2009 IMMUNIZATIONS Vaccine Route Administration Date Status FLULAVAL QUAD 0.5ML (6 MO & UP) 2018 IM Intramuscular Apr 12, 2018 Administered SOCIAL HISTORY Never Assessed REASON FOR VISIT Flu shot PLAN OF CARE VITAL SIGNS MEDICATIONS Unknown Medications RESULTS No Results PROCEDURES Procedure Date Ordered Result Body Site FLULAVAL QUAD 0.5ML (6 MO AND UP) 2017Apr 12, 2018 SINGLE IMMUNIZATION ADMIN Apr 12, 2018 INSTRUCTIONS MEDICATIONS ADMINISTERED No [...] History see above surgeries Hospitalization History Anaphylactic shock-[facility] 08/23/16
--- OUTSIDE RECORDS SUMMARY | 2018-07-18 07:11 | XMS REPORT ---
Author Author SAGAR NAVA [facility] Address [address] [place] [address] Care Team Providers Care Pre Sales Technical Consultant Name Role Phone SAGAR NAVA Unavailable PROBLEMS ALLERGIES No Information ENCOUNTERS IMMUNIZATIONS No Known Immunizations SOCIAL HISTORY No smoking Hx information available REASON FOR VISIT PLAN OF CARE VITAL SIGNS MEDICATIONS Unknown Medications RESULTS No Results PROCEDURES INSTRUCTIONS MEDICATIONS ADMINISTERED No Known Medications MEDICAL (GENERAL) HISTORY
--- OUTSIDE RECORDS SUMMARY | 2018-07-18 07:12 | XMS REPORT ---
Author Author SAGAR NAVA Organization [facility] Address [address] [place] [address] Care Team Providers Care Paper Box Cutter Name Role Phone BRANDY, SAGAR Unavailable PROBLEMS Type Condition ICD9-CM Code IQR30-YO Code Onset Dates Condition Status SNOMED Code Problem Migraine with aura and without status migrainosus, not intractable G43.109 Active 1676733 Problem PCOS (polycystic ovarian syndrome) E28.2 Active 15309143 Problem Uncomplicated severe persistent asthma J45.50 Active 465865992 Problem Severe persistent asthma with exacerbation J45.51 Active 044468962 Problem Other elevated white blood cell (WBC) count D72.828 Active 588888895 Problem Multiple food allergies Z91.018 Active 770370366 Problem Pure hypercholesterolemia E78.00 Active 473159482 Problem Current chronic use of inhaled steroid Z79.51 Active 353796279 Problem Asthma exacerbation J45.901 Active 228348934 Problem ADD (attention deficit disorder) F90.0 Active 772447151 Problem Allergic rhinitis due to pollen J30.1 Active 76877132 Problem Vitamin D deficiency E55.9 Active 55200335 Problem Major depressive disorder, recurrent episode, mild F33.0 Active 374303513 Problem Acquired hypothyroidism E03.9 Active 863503736 Problem Gastroesophageal reflux disease without esophagitis K21.9 Active 088092582 ALLERGIES Substance Reaction Event Type Date Status Zithromax Unknown Drug Allergy Mar, Active Qvar shortness of breath Drug Allergy Mar, Active Ceftin Unknown Drug Allergy Mar, Active Morphine Patient is a fast metabolizer and medication is not effective Drug Allergy Mar, Active [place] Unknown Non Drug Allergy Mar, Active FLUORIDE VARNISH Unknown Non Drug Allergy Mar, Active Soybeans Unknown Non Drug Allergy Mar, Active Wheat Unknown Non Drug Allergy Mar, Active Malt Extract Unknown Non Drug Allergy Mar, Active Asprin Unknown Non Drug Allergy Mar, Active ENCOUNTERS Encounter Location Date Diagnosis [place] [id number] [place] [address] 02459- 4412 Mar, Allergic rhinitis due to pollen J30.1 [place] [id number] [place] [address] 90852- 4372 Mar, Severe persistent asthma with exacerbation J45.51 and Haemophilus infection A49.2 [place] [address] 34038- 1153 Mar, [place] [address] 62928- 2922 Mar, Multiple food allergies Z91.018 [place] [address] 30082- 3598 Jan, Allergic rhinitis due to pollen J30.1 [place] [address] 88830- 8122 Jan, [place] [address] 44050- 0927 Jan, Allergic reaction, initial encounter T78.40XA [place] [address] 64788- 6920 Dec, Allergic rhinitis due to pollen J30.1 [place] [id number] [place] [address] 18445- 2482 Dec, [place] [id number] [place] [address] 01776- 2421 Dec, Allergic rhinitis due to pollen J30.1 [place] [address] 10004- 6926 Dec, ADD (attention deficit disorder) F90.0 [place] [address] 93176- 0286 Dec, ADD (attention deficit disorder) F90.0 and Uncomplicated severe persistent asthma J45.50 [place] [address] 23122- 3415 Dec, Allergic rhinitis due to pollen J30.1 [facility] [id number] [place] [address] 16938- 3354 Dec, [facility] [id number] [place] [address] 45953- 8460 October, Allergic rhinitis due to pollen J30.1 [facility] [id number] [place] [address] 89197- 1235 October, Allergic rhinitis due to pollen J30.1 [facility] [id number] [place] [address] 76724- 3834 Oct, [place] [id number] [place] [address] 50454- 5272 Oct, Allergic rhinitis due to pollen J30.1 [place] [id number] [place] [address] 05087- 7018 Oct, [facility] [id number] [place] [address] 38910- 9049 Oct, Allergic rhinitis due to pollen J30.1 [place] [id number] [place] [address] 02116- 0895 Oct, Severe persistent asthma with exacerbation J45.51 and Pneumonia due to Haemophilus influenzae, unspecified laterality, unspecified part of lung J14 [place] [id number] [place] [address] 40038- 7587 Oct, ADD (attention deficit disorder) F90.0 [place] [id number] [place] [address] 98632- 4278 Aug, Haemophilus influenzae infection A49.2 [place] [id number] [place] [address] 52910- 8887 Aug, Cough productive of purulent sputum R05 [place] [id number] [place] [address] 14842- 8355 Aug, [place] [id number] [place] [address] 26082- 1652 Aug, Pulmonary congestion R09.89 [place] [address]- 1831 Aug, Severe persistent asthma with exacerbation J45.51 ; Hiatal hernia K44.9 and Gastroesophageal reflux disease without esophagitis K21.[address] 92468- 5447 Aug, Other elevated white blood cell (WBC) count D72.[address] 08504- 641 Aug, Uncomplicated severe persistent asthma J45.[address] 706623- 824 Aug, Pure hypercholesterolemia E78.00 ; Uncomplicated severe persistent asthma J45.50 and Acquired hypothyroidism E03.[address] 50871- 9573 Aug, Acquired hypothyroidism E03.9 ; Pure hypercholesterolemia E78.00 and Uncomplicated severe persistent asthma J45.50 [place] [address] 15926- 3362 15 Aug, 2017 Allergic rhinitis due to pollen J30.[address] 04257- 1950 Aug, Allergic rhinitis due to pollen J30.1 [place] [address] 59319- 7961 Aug, [place] [address] [place] [address] [id number] Jul, Pharyngitis, unspecified etiology J02.9 and Lymphadenopathy R59.[address] 76175- 3888 Jul, ADD (attention deficit disorder) F90.0 [place] [id number] [place] [address] 95972- 3855 Jul, Allergic rhinitis due to pollen J30.1 [place] [id number] [place] [address] 79740- 1581 Jul, Dental examination Z01.20 [place] [address] 34654- 5209 Jun, Cough productive of purulent sputum R05 [place] [id number] [place] [address] 91602- 0961 Jun, Allergic rhinitis due to pollen J30.1 [place] [address] 78156- 1709 Jun, [place] [address] 97616- 6884 Jun, Allergic rhinitis due to pollen J30.1 [place] [id number] [place] [address] 39753- 9154 Jun, Allergic rhinitis due to pollen J30.1 [place] [address] 63404- 3759 May, Allergic rhinitis due to pollen J30.1 [place] [id number] [place] [address] 11666- 7689 May, Pneumonia due to Haemophilus influenzae, unspecified laterality, unspecified part of lung J14 [place] [id number] [place] [address] 33051- 3831 May, Allergic rhinitis due to pollen J30.1 [place] [address] 85302- 3130 May, Other adverse food reactions, not elsewhere classified, initial encounter T78.1XXA and Pneumonia due to Haemophilus influenzae, unspecified laterality, unspecified part of lung J14 [place] [address] 68313- 0705 May, Pneumonia due to Haemophilus influenzae, unspecified laterality, unspecified part of lung J14 [place] [id number] [place] [address] 77616- 7188 May, Multiple food allergies Z91.018 ; Uncomplicated severe persistent asthma J45.50 ; Cough productive of purulent sputum R05 and Uses central nervous system stimulants F15.90 [place] [id number] [place] [address] 98933- 0780 Apr, Allergic rhinitis due to pollen J30.1 [place] [id number] [place] [address] 36867- 2094 Apr, Allergic rhinitis due to pollen J30.1 [place] [id number] [place] [address] 19424- 1072 Apr, Allergic rhinitis due to pollen J30.1 [place] [address] 85093- 3095 Apr, ADD (attention deficit disorder) F90.0 [place] [id number] [place] [address] 94978- 5207 28 Mar, 2017 Allergic rhinitis due to pollen J30.1 [place] [id number] [place] [address] 33346- 3873 21 Mar, 2017 Encounter for immunization Z23 [place] [id number] [place] [address] 38176- 9150 19 Mar, 2017 [place] [id number] [place] [address] 45923- 0432 14 Mar, 2017 Allergic rhinitis due to pollen J30.1 [place] [id number] [place] [address] 45180- 8234 07 Mar, 2017 Allergic rhinitis due to pollen J30.1 [place] [id number] [place] [address] 46063- 0670 16 Jan, 2017 Allergic rhinitis due to pollen J30.1 [place] [address] [place] [id number] [place] [address] 21573- 5103 Jan, Allergic rhinitis due to pollen J30.1 [place] [address] 97620- 3072 Dec, Uncomplicated severe persistent asthma J45.50 [place] [address] 51893- 2100 Dec, Allergic rhinitis due to pollen J30.1 [place] [id number] [place] [address] 22137- 8776 Dec, Allergic rhinitis due to pollen J30.1 [place] [address] 22970- 5598 Dec, Allergic rhinitis due to pollen J30.1 [place] [id number] [place] [address] 98981- 7679 Dec, ADD (attention deficit disorder) F90.0 [place] [address] 54170- 1399 Dec, Allergic rhinitis due to pollen J30.1 [place] [address] 08997- 4152 Dec, Visit for TB skin test Z11.1 and Screening for tuberculosis Z11.1 [place] [id number] [place] [address] 68891- 5457 Dec, Uncomplicated severe persistent asthma J45.50 ; Palpitations R00.2 ; Pericardial effusion (noninflammatory) I31.3 and Chest discomfort R07.89 [place] [id number] [place] [address] 66370- 5767 Dec, Allergic rhinitis due to pollen J30.1 [place] [id number] [place] [address] 31548- 4535 Dec, Chronic cough R05 [place] [address] 42833- 4273 Dec, [place] [address] [place] [address] 08557- 9983 Dec, Allergic rhinitis due to pollen J30.1 [place] [id number] [place] [address] 50547- 5327 Dec, Allergic rhinitis due to pollen J30.1 [place] [id number] [place] [address] 26212- 5456 Dec, Chronic cough R05 [place] [id number] [place] [address] 65521- 3930 October, Allergic rhinitis due to pollen J30.1 [place] [id number] [place] [address] 41951- 2567 October, Allergic rhinitis due to pollen J30.1 [place] [id number] [place] [address] 56274- 2321 October, [place] [id number] [place] [address] 28957- 4431 October, Asthma exacerbation J45.901 [place] [address] 71519- 0566 October, Asthma exacerbation J45.901 and Current chronic use of inhaled steroid Z79.51 [place] [id number] [place] [address] 99416- 3233 October, Uncomplicated severe persistent asthma J45.50 [place] [id number] [place] [address] 12009- 3179 October, Allergic rhinitis due to pollen J30.1 [place] [id number] [place] [address] 53161- 9683 Oct, [place] [id number] [place] [address] 58213- 7590 Oct, Asthma exacerbation J45.901 and Sputum production R05 [place] [id number] [place] [address] 15832- 7263 Oct, Asthma exacerbation J45.901 [place] [id number] [place] [address] 19823- 6073 Oct, ADD (attention deficit disorder) F90.0 [place] [id number] [place] [address] 34725- 1683 Oct, ADD (attention deficit disorder) F90.0 [place] [address] 57869- 3499 Aug, Allergic rhinitis due to pollen J30.1 [place] [address] 97933- 3856 Aug, Atypical pneumonia J18.9 [place] [address] 06505- 7401 Aug, Allergic rhinitis due to pollen J30.1 [place] [address] 20439- 2703 Aug, Acquired hypothyroidism E03.9 [place] [address] 50362- 4675 Aug, Multiple food allergies Z91.018 ; Elevated blood pressure reading R03.0 and Anaphylaxis, subsequent encounter T78.2XXD [place] [address] [id number] Aug, [place] [id number] [place] [address] 02543- 3286 Aug, Anaphylaxis, initial encounter T78.2XXA [place] [id number] [place] [address] 42918- 1908 Aug, Allergic rhinitis due to pollen J30.1 [place] [id number] [place] [address] 15692- 8680 Aug, Dental examination Z01.20 [place] [address] 33726- 9986 Aug, Allergic rhinitis due to pollen J30.1 [facility] [address] [place] [address] 79182- 2238 06 Aug, 2016 Acquired hypothyroidism E03.9 and Pure hypercholesterolemia E78.00 [facility] [id number] [place] [address] 48772- 4266 Aug, ADD (attention deficit disorder) F90.0 ; Acquired hypothyroidism E03.9 and Pure hypercholesterolemia E78.00 [facility] [id number] [place] [address] 94984- 3628 Aug, Asthma exacerbation J45.901 [place] [address] 46955- 4756 Jul, Allergic rhinitis due to pollen J30.1 [facility] [id number] [place] [address] 17243- 6012 Jul, Allergic rhinitis due to pollen J30.1 [facility] [id number] [place] [address] 62351- 6458 Jul, [facility] [id number] [place] [address] 13688- 4145 Jul, Allergic rhinitis due to pollen J30.1 [facility] [id number] [place] [address] 78752- 5844 Jul, Other snf (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 and ADD ( attention deficit disorder) F90.0 [facility] [address] [place] [address] 97103- 0037 Jul, Other snf (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 and ADD ( attention deficit disorder) F90.0 [facility] [id number] [place] [address] 14494- 5962 Jul, [facility] [id number] [place] [address] 27049- 4409 Jun, Allergic rhinitis due to pollen J30.1 [facility] [address] [place] [address] 97957- 7484 Jun, Allergic rhinitis due to pollen J30.1 [facility] [id number] [place] [address] 35715- 7141 Jun, [facility] [id number] [place] [address] 30413- 4946 May, Allergic rhinitis due to pollen J30.1 [facility] [id number] [place] [address] 62693- 3980 May, Allergic rhinitis due to pollen J30.1 [facility] [id number] [place] [address] 13799- 3946 Apr, Allergic rhinitis due to pollen J30.1 [place] [id number] [place] [address] 36608- 9730 Apr, Allergic rhinitis due to pollen J30.1 [place] [id number] [place] [address] 22314- 7711 Apr, Encounter for immunization Z23 [place] [address] 13793- 1055 Apr, [facility] [id number] [place] [address] 54309- 5806 Mar, Allergic rhinitis due to pollen J30.1 [place] [id number] [place] [address] 32259- 0065 Mar, Multiple allergies Z88.9 [facility] [id number] [place] [address] 45832- 9471 Mar, Candidal vaginitis B37.3 [facility] [id number] [place] [address] 94122- 7104 08 Mar, 2016 Allergic rhinitis due to pollen J30.1 [facility] [id number] [place] [address] 49586- 5582 19 Aug, 2016 Asthma exacerbation J45.901 ; Fatigue, unspecified type R53.83 and Community acquired pneumonia J18.9 [facility] [id number] [id number] Jan, Encounter for dental examination Z01.20 [facility] [address] [place] [address] 75238- 2545 Jan, Allergic rhinitis due to pollen J30.1 [facility] [id number] [place] [address] 11068- 0363 Dec, Allergic rhinitis due to pollen J30.1 [facility] [address] [place] [address] 28984- 2386 Dec, [facility] [id number] [place] [address] 43918- 5984 Dec, Allergic rhinitis due to pollen J30.1 [facility] [id number] [place] [address] 45953- 3836 Dec, [facility] [address] [place] [address] 93546- 9625 Dec, [facility] [id number] [place] [address] 96485- 0526 Dec, [facility] [address] [place] [address] 94706- 0151 Dec, Allergic rhinitis due to pollen J30.1 [facility] [address] [place] [address] 16835- 7127 Dec, [facility] [address] [address]- 2323 Dec, [facility] [id number] [place] [address] 93966- 1852 Dec, Allergic rhinitis due to pollen J30.1 [facility] [address] [place] [address]- 0310 October, Allergic rhinitis due to pollen J30.1 [facility] [id number] [place] [address] 67204- 9744 October, Allergic rhinitis due to pollen J30.1 [facility] [id number] [place] [address] 92272- 9216 October, [facility] [id number] [place] [address] 03083- 5838 October, [facility] [address] 13647- 6122 October, ADD (attention deficit disorder) F90.0 ; Major depressive disorder, recurrent episode, mild F33.0 and Uncomplicated severe persistent asthma J45.50 [place] [id number] [place] [address] 16442- 1195 Oct, Allergic rhinitis due to pollen J30.1 [place] [id number] [place] [address] 29122- 7210 Oct, ADD (attention deficit disorder) F90.0 [facility] [id number] [place] [address] 15929- 7480 Oct, Allergic rhinitis due to pollen 477.0 [place] [id number] [place] [address] 53418- 7945 Aug, Allergic rhinitis due to pollen 477.0 [place] [id number] [place] [address] 26344- 1804 Aug, 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 [facility] [id number] [place] [address] 55057- 9206 Aug, [facility] [id number] [place] [address] 28273- 5876 Aug, Allergic rhinitis due to pollen 477.0 [facility] [id number] [place] [address] 78171- 3418 Aug, Allergic rhinitis due to pollen 477.0 [facility] [address] [place] [address]- 1590 Aug, Allergic rhinitis due to pollen 477.0 [facility] [id number] [place] [address] 62554- 2801 25 Aug, 2015 Exposure to influenza Z20.828 [facility] [address] [place] [address] [id number] 19 Aug, 2015 Encounter for dental examination and cleaning without abnormal findings Z01.20 [facility] [id number] [place] [address] 11943- 7246 18 Aug, 2015 Allergic rhinitis due to pollen J30.1 [place] [address] 24542- 0963 Aug, [place] [address] 21513- 5003 Aug, 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 [facility] [address] 69600- 6225 Jul, [facility] [address] 56526- 2815 Jul, Allergic rhinitis due to pollen 477.0 [place] [id number] [place] [address] 78698- 6914 Jul, [place] [address] 15159- 4771 Jul, Allergic rhinitis due to pollen 477.0 [place] [id number] [place] [address] 96962- 2149 Jun, ADD (attention deficit disorder) F90.0 ; Acquired hypothyroidism E03.9 ; PCOS (polycystic ovarian syndrome) E28.2 ; Polyarthralgia M25.50 and On stimulant medication Z79.899 [place] [id number] [place] [address] 45164- 0255 16 Apr, 2015 Encounter for immunization Z23 [place] [address] [place] [address] 39098- 1004 16 Mar, 2015 Allergic rhinitis due to pollen 477.0 [facility] [id number] [place] [address] 41599- 1655 14 Mar, 2015 Influenza vaccine administered V04.81 [facility] [id number] [place] [address] 22710- 5176 Mar, [facility] [id number] [place] [address] [id number]- 6176 Jan, Allergic rhinitis due to pollen 477.0 [facility] [id number] [place] [address] 60232- 9603 Jan, Allergic rhinitis due to pollen 477.0 [facility] [id number] [place] [address] [id number]- 1623 Jan, Allergic rhinitis due to pollen 477.0 [facility] [id number] [place] [address] [id number] Jan, Dental examination V72.2 [facility] [id number] [place] [address] 20286- 0046 Dec, Allergic rhinitis due to pollen 477.0 [facility] [id number] [place] [address] 22916- 3553 October, [facility] [id number] [place] [address] [id number]- [id number] Oct, [facility] [id number] [place] [address] [id number]- [phone] Oct, [facility] [id number] [place] [address] [id number]- 2560 Aug, [facility] [id number] [place] [address] [id number]- [phone] Aug, [facility] [id number] [address] Aug, [facility] [place] [facility] [address] [id number] [place] [address]188 Aug, [facility] [place] [facility] [address] [id number] [place] [address] Aug, [facility] [place] [facility] [address] [id number] [place] [address] 8265 Aug, [facility] [place] [facility] [address] [id number] [place] [address] 7198 Aug, [facility] [place] [facility] [address] [id number] [place] [address] 8422 Aug, [facility] [place] [facility] [address] [id number] [place] [address]26 Jul, [facility] [place] [facility] [address] [id number] [place] [address] 7673 Jul, [facility] [place] [facility] [address] [id number] [place] [address]- 6965 Jul, [facility] [place] [facility] [address] [id number] [place] [address] 2532 Jul, [facility] [place] [facility] [address] [id number] [place] [address] Jul, [facility] [place] [facility] [address] [id number] [place] [address] Jul, [facility] [place] [facility] [address] [id number] [place] [address] Jul, [facility] [place] [facility] [address] [id number] [place] [address] Jul, [facility] [place] [facility] [address] [id number] [place] [address] Jul, [facility] [place] [facility] [address] [id number] [place] [address] 286[address] Jul, [facility] [place] [facility] [address] [id number] [place] [address] 8703 Jul, [facility] [place] [facility] [address] [id number] [place] [address] Jun, [facility] [place] [facility] [address] [id number] [place] [address] Jun, [facility] [place] [facility] [address] [id number] [place] [address] Jun, [facility] [place] [facility] [address] [id number] [place] [address] Jun, [facility] [place] [facility] [address] [id number] [place] [address] 3088 Jun, [facility] [place] [facility] [address] [id number] [place] [address] Jun, [facility] [place] [facility] [address] [id number] [place] [address] 2218 May, [facility] [place] [facility] [address] [id number] [place] [address]- 2011 May, [facility] [place] [facility] [address] [id number] [place] [address] 8[address] May, [facility] [place] [facility] [address] [id number] [place] [address]- 2582 May, [facility] [place] [facility] [address] [id number] [place] [address]- 5911 May, [facility] [place] [facility] [address] [id number], [place] [address] May, [facility] [place] [facility] [address] [id number] [place] [address] Apr, [facility] [place] [facility] [address] [id number] [place] [address] Apr, [facility] [place] [facility] [address] [id number] [place] [address]- 5476 Mar, [facility] [place] [facility] [address] [id number] [place] [address]65 30 Mar, 2014 [facility] [place] [facility] [address] [id number] [place] [address]- 9286 Mar, [facility] [place] [facility] [address] [id number] [place] [address]- 1026 Mar, [facility] [place] [facility] [address] [id number] [place] [address]- 5612 Mar, [facility] [place] [facility] [address] [id number] [place] [address] 4[address] Mar, [facility] [place] [facility] [address] [id number] [place] [address]- 4336 Jan, [facility] [place] [facility] [address] [id number] [place] [address]- 4723 Jan, [facility] [place] [facility] [address] [id number] [place] [address]- 3689 Jan, [facility] [place] [facility] [address] [id number] [place] [address]- 7171 Jan, [facility] [place] [facility] [address] [id number] [place] [address]- 2756 Jan, [facility] [place] [facility] [address] [id number] [place] [address]- 4[address] Jan, [facility] [place] [facility] [address] [id number] [place] [address]- 1484 Dec, [facility] [place] [facility] [address] [id number] [place] [address]- 2167 Dec, [facility] [place] [facility] [address] [id number] [place] [address]- 6729 Dec, [facility] [place] [facility] [address] [id number] [place] [address]- 7440 Dec, [facility] [place] [facility] [address] [id number] [place] [address]- 9566 Dec, [facility] [place] [facility] [address] [id number] [place] [address]- 3827 Dec, [facility] [place] [facility] [address] [id number] [place] [address]- 5996 Dec, [facility] [place] [facility] [address] [id number] [place] [address]- 5106 Dec, [facility] [place] [facility] [address] [id number] [place] [address]- 2620 Dec, [facility] [place] [facility] [address] [id number] [place] [address]- 2502 Dec, [facility] [place] [facility] [address] [id number] [place] [address]- 4312 Dec, [facility] [place] [facility] [address] [id number] [place] [address]- 7113 Dec, [facility] [place] [facility] [address] [id number] [place] [address]- 9716 Dec, [facility] [place] [facility] [address] [id number] [place] [address]- 6319 Dec, [facility] [place] [facility] [address] [id number] [place] [address]- 9646 Dec, [facility] [place] [facility] [address] [id number] [place] [address]- 6161 Dec, [facility] [place] [facility] [address] [id number], [place] [address] October, [facility] [place] [facility] [address] [id number] [place] [address]- 1559 October, [facility] [place] [facility] [address] [id number] [place] [address]- 4471 October, [facility] [place] [facility] [address] [id number] [place] [address]- 3599 October, [facility] [place] [facility] [address] [id number], [place] [address] October, [facility] [address] [id number] [place] [address]- 4575 October, [facility] [place] [facility] [address] [id number] [place] [address]- 1568 Oct, [facility] [place] [facility] [address] [id number] [place] [address]- 2675 Oct, [facility] [place] [facility] [address] [id number] [place] [address]- 1774 Oct, [facility] [place] [facility] [address] [id number] [place] [address]- 4981 Oct, [facility] [place] [facility] [address] [id number] [place] [address]- 0482 Oct, [facility] [place] [facility] [address] [id number] [place] [address]- 6645 Oct, [facility] [place] [facility] [address] [id number] [place] [address]- 0968 Aug, [facility] [place] [facility] [address] [id number] [place] [address]- 2432 Aug, [facility] [place] [facility] [address] [facility] [id number] [place] [address]- 0644 Aug, [facility] [place] [facility] [address] [id number] [place] [address]- 2223 Aug, [facility] [place] [facility] [address] [id number], [place] [address] 6729 Jul, [facility] [place] [facility] [address] [id number] [place] [address]- 8282 Jul, [facility] [place] [facility] [address] [id number] [place] [address]- 6686 Jul, [facility] [place] [facility] [address] [facility] [id number], [place] [address]- 59[address] Jul, [facility] [place] [facility] [address] [id number] [place] [address]- 1462 Jun, [facility] [address] [id number] [place] [address] Jun, [facility] [place] [facility] [address] [id number] [place] [address] Jun, [facility] [place] [facility] [address] [id number] [place] [address]- 2474 Jun, [facility] [place] [facility] [address] [id number] [place] [address]- 3151 Jun, [facility] [place] [facility] [address] [id number] [place] [address]- 0121 Jun, [facility] [address] [id number] [place] [address]- 9524 Jun, [facility] [address] [id number] [place] [address]- 8235 Jun, [facility] [place] [facility] [address] [id number] [place] [address]- 7730 Jun, [facility] [place] [facility] [address] [id number] [place] [address]- 4917 Jun, [facility] [place] [facility] [address] [id number] [place] [address]- 5762 Jun, [facility] [place] [facility] [address] [id number] [place] [address]- 9360 May, [facility] [place] [facility] [address] [id number] [place] [address]- 5980 May, [facility] [place] [facility] [address] [id number] [place] [address]- 9494 May, [facility] [place] [facility] [address] [id number] [place] [address]- 2759 11 May, 2013 [facility] [place] [facility] [address] [id number] [place] [address]- 4251 May, [facility] [place] [facility] [address] [id number] [place] [address]- 8754 May, [facility] [place] [facility] [address] [id number] [place] [address]- 8576 May, [facility] [place] [facility] [address] [id number] [place] [address]- 0806 Apr, [facility] [place] [facility] [address] [id number] [place] [address]- 8724 Apr, [facility] [place] [facility] [address] [id number] [place] [address]- 0342 Apr, [facility] [place] [facility] [address] [id number] [place] [address]- 4464 Apr, [facility] [place] [facility] [address] [id number] [place] [address]- 7578 27 Mar, 2013 [facility] [place] [facility] [address] [id number] [place] [address]- 7244 Mar, [facility] [place] [facility] [address] [id number] [place] [address]- 3188 Mar, [facility] [place] [facility] [address] [id number] [place] [address]- 6708 23 Mar, 2013 [facility] [place] [facility] [address] [id number] [place] [address]- 1704 04 Mar, 2013 [facility] [place] [facility] [address] [id number], [place] [address] 2547 Mar, [facility] [place] [facility] [address] [id number] [place] [address]- 4341 Jan, [facility] [place] [facility] [address] [id number] [place] [address]- 7231 Jan, [facility] [place] [facility] [address] [id number] [place] [address]- 8902 Jan, [facility] [place] [facility] [address] [id number] [place] [address]- 5742 Jan, [facility] [address] [id number] [place] [address]- 4092 Jan, [facility] [address] [id number] [place] [address]- 7022 Dec, [facility] [address] [id number] [place] [address]- 4611 Dec, [facility] [address] [id number] [place] [address]- 8983 Dec, [facility] [address] [id number] [place] [address]- 9546 Dec, [facility] [address] [id number] [place] [address]- 6323 Dec, [facility] [address] [id number] [place] [address]- 7618 Dec, [facility] [address] [id number] [place] [address]- 7413 Dec, [facility] [address] [id number] [place] [address]- 3844 Dec, [facility] [address] [id number] [place] [address]- 0454 October, [facility] [address] [id number] [place] [address]- 9195 October, [facility] [address] [id number] [place] [address]- 2871 October, [facility] [address] [id number] [place] [address]- 8730 24 Oct, 2012 [facility] [address] [id number] [place] [address]- 4115 Oct, [facility] [address] [id number] [place] [address]- 1295 17 Oct, 2012 [facility] [place] [facility] [address] [id number] [place] [address]- 2427 Oct, [facility] [place] [facility] [address] [id number] [place] [address]897 Aug, [facility] [place] [facility] [address] [id number] [place] [address]- 5998 Aug, [facility] [place] [facility] [address] [id number] [place] [address]- 1119 Aug, [facility] [place] [facility] [address] [id number] [place] [address]- 4975 Jul, [facility] [place] [facility] [address] [id number] [place] [address]- 0569 May, [facility] [place] [facility] [address] [id number] [place] [address]- 6838 May, [facility] [place] [facility] [address] [id number] [place] [address]- 3100 Apr, [facility] [place] [facility] [address] [id number] [place] [address]- 1317 Apr, [facility] [place] [facility] [address] [id number], [place] [address]- 9731 Apr, [facility] [place] [facility] [address] [facility] [id number], [place] [address]- 3935 Apr, [facility] [place] [facility] [address] [id number], [place] [address]- 8683 Apr, [facility] [place] [facility] [address] [id number], [place] [address]- 0980 Apr, [facility] [place] [facility] [address] [id number], [place] [address]- 6722 Apr, [facility] [place] [facility] [address] [id number][place] 3142 Apr, [facility] [place] [facility] [address] [id number], [place] [address]- 2068 Apr, [facility] [address] [id number] [place] [address]- 9731 Apr, [facility] [place] [facility] [address] [id number] [place] [address]- 7284 Apr, [facility] [place] [facility] [address] [facility] [id number] [place] [address]- 0385 Apr, [facility] [place] [facility] [address] [id number] [place] [address]- 8751 Mar, [facility] [place] [facility] [address] [id number] [place] [address]- 2240 Jan, [facility] [place] [facility] [address] [id number] [place] [address]- 1840 Dec, [facility] [address] [id number] [place] [address]- 1776 October, [facility] [place] [facility] [address] [facility] [id number] [place] [address]- 2575 Oct, [facility] [place] [facility] [address] [facility] [id number] [place] [address]- 5085 Oct, [facility] [place] [facility] [address] [facility] [id number] [place] [address]- 0599 Oct, [facility] [place] [facility] [address] [facility] [id number] [place] [address]- 1374 Aug, [facility] [place] [facility] [address] [facility] [id number], [place] [address]- 8995 Aug, [facility] [place] [facility] [address] [id number] [place] [address]- 7718 29 Aug, 2011 [facility] [place] [facility] [address] [facility] [id number] [place] [address]- 0130 16 Aug, 2011 [facility] [place] [facility] [address] [facility] [id number], [place] [address]- 9063 15 Aug, 2011 [facility] [place] [facility] [id number], [place] [address] 2546 Aug, [facility] [id number], [place] [address]- 7796 Jun, [facility] [id number], [place] [address]- 2786 Apr, [facility] [id number] [place] [address]- 4407 Jun, [facility] [id number] [place] [address] 97[address]- 0248 Jun, [facility] [id number] [place] [address]- 0266 May, [facility] [id number] [place] [address] 17777- 3848 May, [facility] [id number] [place] [address] 286[address]- 4716 Apr, [facility] [id number], [place] [address]- 6724 Apr, IMMUNIZATIONS No Known Immunizations SOCIAL HISTORY Never Assessed REASON FOR VISIT Cough/congestion--tcuppettRN PLAN OF CARE Activity Details Follow Up prn Reason: VITAL SIGNS Height 68 in 2018-03-13 Temperature 98.9 degrees Fahrenheit 2018-03-13 Heart Rate 96 bpm 2018-03-13 Respiratory Rate 24 2018-03-13 Oximetry 95 % 2018-03-13 Blood pressure systolic 132 mmHg 2018-03-13 Blood pressure diastolic 100 mmHg 2018-03-13 MEDICATIONS Medication Instructions Dosage Frequency Start Date End Date Duration Status Lo Loestrin Fe 1 MG-10 MCG / 10 MCG Orally Once a day 1 tablet 24h Active EpiPen 2-Leo 0.3 MG/0.3ML INJECT 0.3 MG ONCE NEEDED FOR ANAPHYLAXIS 2 Active MetFORMIN HCl ER 1000 mg Orally Once a day 1 tablet with evening meal 24h Active Pulmozyme 1 MG/ML Inhalation Once a day 2.5 ml 24h Aug, Not- Taking Augmentin 875-125 MG Orally every 12 hrs 1 tablet 12h Mar,Mar 10 day(s) Active Advair Diskus 500-50 MCG/DOSE Active Spiriva HandiHaler 18 MCG Active Ondansetron 8 MG DISSOLVE ONE TABLET UNDER TONGUE EVERY 6 HOURS NEEDED FOR NAUSEA OR VOMITING 20 Active Albuterol Sulfate (2.5 MG/3ML) 0.083% Inhalation 4 times a day 3 ml as needed 6h Oct, Active Brovana 15 MCG/2ML Inhalation Twice a day 2 ml 12h Active Aerobika - as directed Aug, Active Zoloft 50 MG Orally Once a day 1 tablet 24h Active PredniSONE 20 mg Orally Once a day 2 tabs daily x5d, then 1 tab [id number], then 1/2 tab daily x5d 24h Mar, Active ProAir RespiClick 108 (90 Base) MCG/ACT INHALE ONE PUFF BY MOUTH EVERY 4 HOURS NEEDED 90 Active Concerta 54 MG Orally Once a day 1 tablet in the morning 24h Dec, 90 days Active Levocetirizine Dihydrochloride 5 MG TAKE ONE TABLET BY MOUTH TWICE DAILY 90 Active Vitamin D 2000 UNIT Orally Once a day 1 tablet 24h Active pantoprazole 40 mg by oral route Once a day 1 tablet 24h Aug, Active Nebulizer - as directed Aug, Active IBU 800 MG TAKE ONE TABLET BY MOUTH EVERY 8 HOURS 30 Active Xyzal 5 mg 1 tablet by Oral route 2 times per day Mar, Active Nasonex 50 MCG/ACT USE ONE SPRAY IN EACH NOSTRIL TWICE DAILY 90 Active Singulair 10 mg take 1 tablet by Oral route 1 time per day Apr, Active Auvi-Q 0.3 MG/0.3ML as directed Mar, Not-Taking Magnesium Oxide 250 MG Orally Once a day 2 tablets 24h Active Levothyroxine Sodium 100 MCG TAKE ONE TABLET BY MOUTH ONCE DAILY 90 Active Pulmicort Flexhaler 180 MCG/ACT Inhalation Twice a day 1 puff 12h Active Ranitidine HCl 150 MG Orally Once a day 1 capsule at bedtime 24h Active RESULTS No Results PROCEDURES No Known procedures INSTRUCTIONS MEDICATIONS ADMINISTERED No Known Medications MEDICAL [...] History see above surgeries Hospitalization History Anaphylactic shock-[facility] 08/23/16
--- OUTSIDE RECORDS SUMMARY | 2018-07-18 07:12 | XMS REPORT ---
Author Author BRANDY SAGAR [facility] Address [address] [place] [address] Care Team Providers Care Advisory Services Associate Name Role Phone BRANDYTEZ HOYTHANY Unavailable PROBLEMS Type Condition ICD9-CM Code DZO30-PJ Code Onset Dates Condition Status SNOMED Code Problem Migraine with aura and without status migrainosus, not intractable G43.109 Active 0043606 Problem PCOS (polycystic ovarian syndrome) E28.2 Active 51131912 Problem Uncomplicated severe persistent asthma J45.50 Active 857115225 Problem Severe persistent asthma with exacerbation J45.51 Active 492314660 Problem Other elevated white blood cell (WBC) count D72.828 Active 219854068 Problem Multiple food allergies Z91.018 Active 495115449 Problem Pure hypercholesterolemia E78.00 Active 147617054 Problem Current chronic use of inhaled steroid Z79.51 Active 528889691 Problem Asthma exacerbation J45.901 Active 895288994 Problem ADD (attention deficit disorder) F90.0 Active 901516344 Problem Allergic rhinitis due to pollen J30.1 Active 91632659 Problem Vitamin D deficiency E55.9 Active 47118263 Problem Major depressive disorder, recurrent episode, mild F33.0 Active 994700780 Problem Acquired hypothyroidism E03.9 Active 981974306 Problem Gastroesophageal reflux disease without esophagitis K21.9 Active 575443023 ALLERGIES No Information ENCOUNTERS Encounter Location Date Diagnosis [facility] [id number] [address] Mar, Allergic rhinitis due to pollen J30.1 [facility] [address] [address] Mar, Severe persistent asthma with exacerbation J45.51 and Haemophilus infection A49.2 [facility] [id number] [address] Mar, [place] [id number] [place] [address] 54599- 8231 Mar, Multiple food allergies Z91.018 [place] [address] 37542- 8897 Jan, Allergic rhinitis due to pollen J30.1 [place] [id number] [place] [address] 30426- 2741 Jan, [place] [address] 27803- 8700 Jan, Allergic reaction, initial encounter T78.40XA [place] [address] 77738- 8109 Dec, Allergic rhinitis due to pollen J30.1 [place] [address] 29830- 9215 Dec, [place] [address] 6[address]30- 9257 Dec, Allergic rhinitis due to pollen J30.1 [place] [id number] [place] [address] 51160- 7585 Dec, ADD (attention deficit disorder) F90.0 [place] [id number] [place] [address] 99716- 4203 Dec, ADD (attention deficit disorder) F90.0 and Uncomplicated severe persistent asthma J45.50 [place] [id number] [place] [address] 00358- 3736 Dec, Allergic rhinitis due to pollen J30.1 [place] [id number] [place] [address] 56064- 8145 Dec, [place] [id number] [place] [address] 59919- 2608 October, Allergic rhinitis due to pollen J30.1 [facility] [id number] [place] [address] 53332- 8943 October, Allergic rhinitis due to pollen J30.1 [facility] [id number] [place] [address] 91252- 0667 Oct, [place] [id number] [place] [address] 44379- 0759 Oct, Allergic rhinitis due to pollen J30.1 [place] [address] 86356- 4820 Oct, [place] [address] 81423- 7968 Oct, Allergic rhinitis due to pollen J30.1 [place] [address] 82773- 9138 Oct, Severe persistent asthma with exacerbation J45.51 and Pneumonia due to Haemophilus influenzae, unspecified laterality, unspecified part of lung J14 [place] [address] 51058- 7343 Oct, ADD (attention deficit disorder) F90.0 [place] [address] 53704- 3925 Aug, Haemophilus influenzae infection A49.2 [facility] [id number] [place] [address] 21524- 3429 Aug, Cough productive of purulent sputum R05 [place] [id number] [place] [address] 07875- 6502 Aug, [place] [id number] [place] [address] 06260- 4133 Aug, Pulmonary congestion R09.89 [place] [address] 37384- 9891 Aug, Severe persistent asthma with exacerbation J45.51 ; Hiatal hernia K44.9 and Gastroesophageal reflux disease without esophagitis K21.9 [place] [address] 04116- 8252 Aug, Other elevated white blood cell (WBC) count D72.828 [place] [address] 99638- 4637 Aug, Uncomplicated severe persistent asthma J45.50 [facility] [address] 23289- 3272 Aug, Pure hypercholesterolemia E78.00 ; Uncomplicated severe persistent asthma J45.50 and Acquired hypothyroidism E03.9 [facility] [address] 22913- 1616 Aug, Acquired hypothyroidism E03.9 ; Pure hypercholesterolemia E78.00 and Uncomplicated severe persistent asthma J45.50 [place] [address] 21097- 8022 15 Aug, 2017 Allergic rhinitis due to pollen J30.1 [place] [address] 03349- 6154 Aug, Allergic rhinitis due to pollen J30.1 [place] [address] 90812- 1250 Aug, [place] [address] [id number] Jul, Pharyngitis, unspecified etiology J02.9 and Lymphadenopathy R59.1 [place] [address] 08544- 3314 Jul, ADD (attention deficit disorder) F90.0 [place] [address] 44881- 4114 Jul, Allergic rhinitis due to pollen J30.1 [place] [address] 16747- 5016 Jul, Dental examination Z01.20 [place] [address] 36343- 3661 Jun, Cough productive of purulent sputum R05 [place] [address] [place] [address] 37461- 8620 Jun, Allergic rhinitis due to pollen J30.1 [place] [id number] [place] [address] 41743- 7275 Jun, [place] [id number] [place] [address] 94670- 8448 Jun, Allergic rhinitis due to pollen J30.1 [place] [id number] [place] [address] 90172- 2347 Jun, Allergic rhinitis due to pollen J30.1 [place] [id number] [place] [address] 547335- 7446 May, Allergic rhinitis due to pollen J30.1 [place] [id number] [place] [address] 30368- 4059 May, Pneumonia due to Haemophilus influenzae, unspecified laterality, unspecified part of lung J14 [place] [id number] [place] [address] 95521- 9585 May, Allergic rhinitis due to pollen J30.1 [place] [id number] [place] [address] 53363- 7157 May, Other adverse food reactions, not elsewhere classified, initial encounter T78.1XXA and Pneumonia due to Haemophilus influenzae, unspecified laterality, unspecified part of lung J14 [place] [id number] [place] [address] 98880- 8767 May, Pneumonia due to Haemophilus influenzae, unspecified laterality, unspecified part of lung J14 [place] [id number] [place] [address] 97116- 2830 May, Multiple food allergies Z91.018 ; Uncomplicated severe persistent asthma J45.50 ; Cough productive of purulent sputum R05 and Uses central nervous system stimulants F15.90 [place] [id number] [place] [address] 30940- 1228 Apr, Allergic rhinitis due to pollen J30.1 [facility] [id number] [place] [address] 30907- 7915 Apr, Allergic rhinitis due to pollen J30.1 [facility] [id number] [place] [address] 21982- 3408 Apr, Allergic rhinitis due to pollen J30.1 [facility] [address] 79785- 8968 Apr, ADD (attention deficit disorder) F90.0 [place] [id number] [place] [address] 11184- 9436 28 Mar, 2017 Allergic rhinitis due to pollen J30.1 [place] [id number] [place] [address] 74188- 5527 21 Mar, 2017 Encounter for immunization Z23 [place] [address] 71624- 8065 19 Mar, 2017 [place] [address] 57721- 1314 14 Mar, 2017 Allergic rhinitis due to pollen J30.1 [place] [id number] [place] [address] 28793- 6765 07 Mar, 2017 Allergic rhinitis due to pollen J30.1 [place] [id number] [place] [address] 07450- 5157 Jan, Allergic rhinitis due to pollen J30.1 [facility] [id number] [place] [address] 21809- 1631 Jan, Allergic rhinitis due to pollen J30.1 [place] [address] 30483- 1136 Dec, Uncomplicated severe persistent asthma J45.50 [facility] [id number] [place] [address] 81635- 5107 Dec, Allergic rhinitis due to pollen J30.1 [place] [address] [address]- 4583 Dec, Allergic rhinitis due to pollen J30.1 [address] [address] 83152- 1055 Dec, Allergic rhinitis due to pollen J30.1 [address] [address] 79402- 0022 Dec, ADD (attention deficit disorder) F90.0 [place] [address] 67047- 1296 Dec, Allergic rhinitis due to pollen J30.1 [place] [address] 10802- 5844 Dec, Visit for TB skin test Z11.1 and Screening for tuberculosis Z11.1 [place] [address] 94968- 9649 Dec, Uncomplicated severe persistent asthma J45.50 ; Palpitations R00.2 ; Pericardial effusion (noninflammatory) I31.3 and Chest discomfort R07.89 [place] [address] 89980- 9514 Dec, Allergic rhinitis due to pollen J30.1 [place] [id number] [place] [address] 61755- 8662 Dec, Chronic cough R05 [address] [address] 35373- 0940 Dec, [place] [id number] [place] [address] 95384- 8780 Dec, Allergic rhinitis due to pollen J30.1 [place] [id number] [place] [address] 89267- 8881 Dec, Allergic rhinitis due to pollen J30.1 [place] [id number] [place] [address] 70484- 4022 Dec, Chronic cough R05 [address] [id number] [place] [address] 41726- 7118 October, Allergic rhinitis due to pollen J30.1 [place] [id number] [place] [address] 49257- 1605 October, Allergic rhinitis due to pollen J30.1 [place] [id number] [place] [address] 88868- 9266 October, [place] [address] 95999- 4998 October, Asthma exacerbation J45.901 [address] [address] 89485- 3947 October, Asthma exacerbation J45.901 and Current chronic use of inhaled steroid Z79.51 [place] [id number] [place] [address] 84712- 5842 October, Uncomplicated severe persistent asthma J45.50 [place] [id number] [place] [address] 65408- 1999 October, Allergic rhinitis due to pollen J30.1 [place] [id number] [place] [address] 67157- 5617 Oct, [place] [id number] [place] [address] 64499- 5243 Oct, Asthma exacerbation J45.901 and Sputum production R05 [place] [id number] [place] [address] 20688- 9792 Oct, Asthma exacerbation J45.901 [place] [id number] [place] [address] 10960- 8018 Oct, ADD (attention deficit disorder) F90.0 [place] [id number] [place] [address] 81396- 5595 Oct, ADD (attention deficit disorder) F90.0 [place] [id number] [place] [address] 46283- 3946 Aug, Allergic rhinitis due to pollen J30.1 [place] [address] 68282- 0395 Aug, Atypical pneumonia J18.9 [place] [address] 11030- 5298 Aug, Allergic rhinitis due to pollen J30.1 [place] [address] 93655- 0108 Aug, Acquired hypothyroidism E03.9 [place] [address] 64881- 9321 Aug, Multiple food allergies Z91.018 ; Elevated blood pressure reading R03.0 and Anaphylaxis, subsequent encounter T78.2XXD [address] [id number] Aug, [place] [address] 19064- 7899 Aug, Anaphylaxis, initial encounter T78.2XXA [address] 28776- 3798 Aug, Allergic rhinitis due to pollen J30.1 [place] [address] 78371- 5705 Aug, Dental examination Z01.20 [place] [address] 71359- 6736 Aug, Allergic rhinitis due to pollen J30.1 [place] [address] 54726- 0132 Aug, Acquired hypothyroidism E03.9 and Pure hypercholesterolemia E78.00 [place] [address] 37321- 2617 Aug, ADD (attention deficit disorder) F90.0 ; Acquired hypothyroidism E03.9 and Pure hypercholesterolemia E78.00 [place] [address] [address]- 0731 Aug, Asthma exacerbation J45.901 [facility] [id number] [place] [address] 52954- 1676 Jul, Allergic rhinitis due to pollen J30.1 [facility] [address] [address]- 7566 Jul, Allergic rhinitis due to pollen J30.1 [facility] [address] [place] [address] 65858- 4001 Jul, [place] [id number] [place] [address] 34364- 8001 Jul, Allergic rhinitis due to pollen J30.1 [place] [address] [address]- 5146 Jul, Other fpc (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 and ADD ( attention deficit disorder) F90.0 [place] [address] [place] [address] 39473- 8447 Jul, Other fpc (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 and ADD ( attention deficit disorder) F90.0 [facility] [address] [address]- 8711 Jul, [place] [address] [address]- 8040 Jun, Allergic rhinitis due to pollen J30.1 [facility] [address] [address]- 1894 Jun, Allergic rhinitis due to pollen J30.1 [facility] [address] [address]- 6724 Jun, [facility] [address] [address]- 0207 May, Allergic rhinitis due to pollen J30.1 [facility] [id number] [place] [address] 92219- 0897 May, Allergic rhinitis due to pollen J30.1 [place] [address] 79956- 8321 Apr, Allergic rhinitis due to pollen J30.1 [place] [address] 71859- 2939 Apr, Allergic rhinitis due to pollen J30.1 [place] [address] 88704- 4474 Apr, Encounter for immunization Z23 [place] [address] 58195- 7973 Apr, [place] [address] 02668- 0858 Mar, Allergic rhinitis due to pollen J30.1 [place] [address] 33038- 4129 Mar, Multiple allergies Z88.9 [place] [address] 85097- 0994 Mar, Candidal vaginitis B37.3 [place] [address] 37752- 0009 08 Mar, 2016 Allergic rhinitis due to pollen J30.1 [place] [id number] [place] [address] 49938- 7148 Jan, Asthma exacerbation J45.901 ; Fatigue, unspecified type R53.83 and Community acquired pneumonia J18.9 [facility] [address] [id number] Jan, Encounter for dental examination Z01.20 [place] [id number] [place] [address] 95906- 5453 Jan, Allergic rhinitis due to pollen J30.1 [place] [address] 17988- 1018 Dec, Allergic rhinitis due to pollen J30.1 [facility] [address] [facility] [id number] [address]- 6148 Dec, [facility] [address] [facility] [id number] [address]- 8947 Dec, Allergic rhinitis due to pollen J30.1 [facility] [address] [facility] [id number] [address]- 6520 Dec, [facility] [address] [facility] [id number] [place] [address] 73810- 5877 Dec, [facility] [address] [facility] [id number] [place] [address] 27714- 4374 Dec, [facility] [id number] [place] [address] 20185- 1691 Dec, Allergic rhinitis due to pollen J30.1 [facility] [address] [facility] [id number] [place] [address]- 8623 Dec, [facility] [address] [facility] [id number] [place] [address]- 7183 Dec, [facility] [id number] [place] [address] 47532- 6362 Dec, Allergic rhinitis due to pollen J30.1 [facility] [address] [facility] [id number] [place] [address]- 2095 October, Allergic rhinitis due to pollen J30.1 [facility] [address] [facility] [id number] [place] [address]- 5818 October, Allergic rhinitis due to pollen J30.1 [facility] [address] [facility] [id number] [address]- 5735 October, [facility] [id number] [address]- 8373 October, [facility] [id number] [place] [address] 36249- 7081 October, ADD (attention deficit disorder) F90.0 ; Major depressive disorder, recurrent episode, mild F33.0 and Uncomplicated severe persistent asthma J45.50 [place] [id number] [place] [address] 38978- 5103 Oct, Allergic rhinitis due to pollen J30.1 [place] [id number] [place] [address] 98799- 6167 Oct, ADD (attention deficit disorder) F90.0 [place] [id number] [place] [address] 35112- 5744 Oct, Allergic rhinitis due to pollen 477.0 [place] [id number] [place] [address] 34591- 0955 Aug, Allergic rhinitis due to pollen 477.0 [place] [id number] [place] [address] 79059- 7225 Aug, 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 [facility] [id number] [place] [address] 46983- 2825 Aug, [facility] [id number] [place] [address] 38718- 8709 Aug, Allergic rhinitis due to pollen 477.0 [place] [id number] [place] [address] 78012- 8373 Aug, Allergic rhinitis due to pollen 477.0 [facility] [id number] [place] [address] 78230- 5252 Aug, Allergic rhinitis due to pollen 477.0 [place] [address] 90309- 3688 Aug, Exposure to influenza Z20.828 [facility] [address] [place] [address] [id number] Aug, Encounter for dental examination and cleaning without abnormal findings Z01.20 [facility] [id number] [place] [address] 96580- 4827 Aug, Allergic rhinitis due to pollen J30.1 [place] [id number] [place] [address] 13587- 5690 Aug, [place] [id number] [place] [address] 05366- 2069 Aug, 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 [place] [id number] [place] [address] 02844- 8693 Jul, [place] [id number] [place] [address] 97399- 0505 Jul, Allergic rhinitis due to pollen 477.0 [place] [id number] [place] [address] 63279- 6144 Jul, [place] [address] 25648- 8046 Jul, Allergic rhinitis due to pollen 477.0 [place] [id number] [place] [address] 35134- 3998 Jun, ADD (attention deficit disorder) F90.0 ; Acquired hypothyroidism E03.9 ; PCOS (polycystic ovarian syndrome) E28.2 ; Polyarthralgia M25.50 and On stimulant medication Z79.899 [place] [id number] [place] [address] 21787- 0098 Apr, Encounter for immunization Z23 [place] [id number] [place] [address] 51886- 1657 16 Mar, 2015 Allergic rhinitis due to pollen 477.0 [place] [id number] [place] [address] 12034- 2826 14 Mar, 2015 Influenza vaccine administered V04.81 [place] [id number] [place] [address] 11404- 9915 03 Mar, 2015 [place] [address] [address] Jan, Allergic rhinitis due to pollen 477.0 [facility] [address] [address] Jan, Allergic rhinitis due to pollen 477.0 [facility] [address] [address] Jan, Allergic rhinitis due to pollen 477.0 [facility] [id number] [id number] Jan, Dental examination V72.2 [facility] [id number] [place] [address]- [address]200 Dec, Allergic rhinitis due to pollen 477.0 [facility] [address] [address] October, [facility] [id number] [address] Oct, [facility] [address] [address] Oct, [facility] [address] [address] Aug, [facility] [address] [address] Aug, [facility] [address] [address] Aug, [facility] [address] [address] Aug, [facility] [id number] [address] Aug, [facility] [address] [address] Aug, [facility] [id number] [place] Aug, [facility] [place] [facility] [address] [id number] [place] [address] Aug, [facility] [place] [facility] [address] [id number] [place] [address] Jul, [facility] [place] [facility] [address] [id number] [place] [address] Jul, [facility] [place] [facility] [address] [id number] [place] [address] 9476 Jul, [facility] [place] [facility] [address] [id number] [place] [address] 2700 Jul, [facility] [place] [facility] [address] [id number] [place] [address] 0976 Jul, [facility] [place] [facility] [address] [id number] [place] [address] 9938 Jul, [facility] [place] [facility] [address] [id number] [place] [address] 9725 Jul, [facility] [place] [facility] [address] [id number] [place] [address]- 4264 Jul, [facility] [place] [facility] [address] [id number] [place] [address]- 7225 Jul, [facility] [place] [facility] [address] [id number] [place] [address]- 8762 Jul, [facility] [place] [facility] [address] [id number] [place] [address]- 9721 Jul, [facility] [place] [facility] [address] [id number] [place] [address] 1391 Jun, [facility] [place] [facility] [address] [id number] [place] [address]- 1376 Jun, [facility] [place] [facility] [address] [id number] [place] [address]- 3534 Jun, [facility] [place] [facility] [address] [id number] [place] [address] 57[address] Jun, [facility] [place] [facility] [address] [id number] [place] [address]- 1799 Jun, [facility] [place] [facility] [address] [id number] [place] [address]- 9866 Jun, [facility] [place] [facility] [address] [id number] [place] [address]- 2980 May, [facility] [place] [facility] [address] [id number] [place] [address]- 4364 May, [facility] [place] [facility] [address] [id number] [place] [address]- 5575 May, [facility] [place] [facility] [address] [id number] [place] [address]- 1326 May, [facility] [place] [facility] [address] [id number] [place] [address]- 7465 May, [facility] [place] [facility] [address] [id number] [place] [address]- 0123 May, [facility] [place] [facility] [address] [id number] [place] [address]- 9122 Apr, [facility] [place] [facility] [address] [id number] [place] [address]- 5686 Apr, [facility] [place] [facility] [address] [id number] [place] [address]- 2917 30 Mar, 2013 [facility] [place] [facility] [address] [id number] [place] [address] 30 Mar, 2013 [facility] [place] [facility] [address] [id number] [place] [address]- 5086 30 Mar, 2013 [facility] [place] [facility] [address] [id number] [place] [address]- 2551 30 Mar, 2013 [facility] [place] [facility] [address] [id number] [place] [address] 19 Mar, 2013 [facility] [place] [facility] [address] [id number] [place] [address]- 3776 Mar, [facility] [place] [facility] [address] [id number] [place] [address]- 3520 Jan, [facility] [place] [facility] [address] [id number] [place] [address]- 6952 Jan, [facility] [place] [facility] [address] [id number] [place] [address]- 3508 Jan, [facility] [place] [facility] [address] [id number] [place] [address]- 7499 Jan, [facility] [place] [facility] [address] [id number] [place] [address]- 5094 Jan, [facility] [place] [facility] [address] [id number] [place] [address]- 2887 Jan, [facility] [place] [facility] [address] [id number] [place] [address]- 1437 Dec, [facility] [place] [facility] [address] [id number] [place] [address]- 7162 Dec, [facility] [place] [facility] [address] [id number] [place] [address]- 2638 Dec, [facility] [place] [facility] [address] [id number] [place] [address]- 4185 Dec, [facility] [place] [facility] [address] [id number] [place] [address]- 8809 Dec, [facility] [place] [facility] [address] [id number] [place] [address]- 9427 Dec, [facility] [place] [facility] [address] [id number] [place] [address] 1952 Dec, [facility] [place] [facility] [address] [id number] [place] [address]- 3664 Dec, [facility] [place] [facility] [address] [id number] [place] [address]- 2956 Dec, [facility] [place] [facility] [address] [id number] [place] [address]- 7660 Dec, [facility] [place] [facility] [address] [id number] [place] [address]- 6799 Dec, [facility] [place] [facility] [address] [id number] [place] [address]- 8835 Dec, [facility] [place] [facility] [address] [id number] [place] [address]- 5102 Dec, [facility] [place] [facility] [address] [id number] [place] [address]- 4545 Dec, [facility] [place] [facility] [address] [id number] [place] [address]- 1556 Dec, [facility] [place] [facility] [address] [id number] [place] [address]- 7140 Dec, [facility] [place] [facility] [address] [id number] [place] [address]- 1179 October, [facility] [place] [facility] [address] [id number] [place] [address]- 8652 October, [facility] [place] [facility] [address] [id number] [place] [address]- 7117 October, [facility] [place] [facility] [address] [id number] [place] [address]- 7324 October, [facility] [place] [facility] [address] [id number] [place] [address] 2041 October, [facility] [place] [facility] [address] [id number] [place] [address]- 0627 October, [facility] [place] [facility] [address] [id number] [place] [address]- 5921 Oct, [facility] [place] [facility] [address] [id number] [place] [address]- 1491 Oct, [facility] [place] [facility] [address] [id number] [place] [address]- 4235 Oct, [facility] [address] [id number] [place] [address] Oct, [facility] [place] [facility] [address] [id number] [place] [address]- 3556 Oct, [facility] [place] [facility] [address] [id number] [place] [address]- 4547 Oct, [facility] [place] [facility] [address] [id number] [place] [address]- 3510 Aug, [facility] [place] [facility] [address] [id number] [place] [address]- 6415 Aug, [facility] [place] [facility] [address] [id number] [place] [address]- 3191 Aug, [facility] [place] [facility] [address] [id number] [place] [address]- 2909 Aug, [facility] [place] [facility] [address] [id number] [place] [address]- 3903 Jul, [facility] [place] [facility] [address] [id number] [place] [address]- 3353 Jul, [facility] [address] [id number] [place] [address]- 7652 Jul, [facility] [place] [facility] [address] [id number] [place] [address]- 8758 Jul, [facility] [place] [facility] [address] [id number] [place] [address]- 7261 Jun, [facility] [place] [facility] [address] [id number] [place] [address] Jun, [facility] [place] [facility] [address] [id number] [place] [address]- 3333 Jun, [facility] [place] [facility] [address] [id number] [place] [address]- 8638 Jun, [facility] [address] [id number] [place] [address]- 5386 Jun, [facility] [place] [facility] [address] [id number] [place] [address]- 9574 Jun, [facility] [place] [facility] [address] [id number] [place] [address]- 2102 Jun, [facility] [place] [facility] [address] [id number] [place] [address]- 9439 Jun, [facility] [place] [facility] [address] [id number] [place] [address]- 2742 Jun, [facility] [place] [facility] [address] [id number] [place] [address]- 9907 Jun, [facility] [place] [facility] [address] [facility] [id number] [place] [address]- 5202 Jun, [facility] [place] [facility] [address] [id number] [place] [address]- 0237 May, [facility] [place] [facility] [address] [id number] [place] [address]- 1563 May, [facility] [place] [facility] [address] [facility] [id number] [place] [address]- 1896 May, [facility] [place] [facility] [address] [facility] [id number] [place] [address]- 0752 May, [facility] [place] [facility] [address] [id number] [place] [address]- 1455 May, [facility] [place] [facility] [address] [id number] [place] [address]- 8786 May, [facility] [place] [facility] [address] [id number] [place] [address]- 8166 May, [facility] [place] [facility] [address] [facility] [id number] [place] [address]- 6638 30 Apr, 2013 [facility] [place] [facility] [address] [id number] [place] [address]- 2865 Apr, [facility] [place] [facility] [address] [id number] [place] [address]- 9302 Apr, [facility] [place] [facility] [address] [id number] [place] [address]- 2782 Apr, [facility] [place] [facility] [address] [id number] [place] [address]- 4506 27 Mar, 2013 [facility] [place] [facility] [address] [id number] [place] [address]- 5866 Mar, [facility] [place] [facility] [address] [id number] [place] [address]- 2620 Mar, [facility] [place] [facility] [address] [id number] [place] [address]- 5934 Mar, [facility] [place] [facility] [address] [id number] [place] [address]- 6419 Mar, [facility] [place] [facility] [address] [id number] [place] [address]- 4738 Mar, [facility] [place] [facility] [address] [id number] [place] [address]- 6337 Jan, [facility] [place] [facility] [address] [id number] [place] [address]- 1170 Jan, [facility] [place] [facility] [address] [id number] [place] [address]- 4852 Jan, [facility] [place] [facility] [address] [id number] [place] [address]- 9899 Jan, [facility] [place] [facility] [address] [id number] [place] [address]- 4455 Jan, [facility] [place] [facility] [address] [id number] [place] [address]- 2447 Dec, [facility] [place] [facility] [address] [id number] [place] [address]- 2937 Dec, [facility] [place] [facility] [address] [id number] [place] [address]- 2753 Dec, [facility] [address] [id number] [place] [address]- 1312 Dec, [facility] [place] [facility] [address] [id number] [place] [address]- 8890 Dec, [facility] [address] [id number] [place] [address]- 7886 Dec, [facility] [place] [facility] [address] [id number] [place] [address]- 8813 Dec, [facility] [address] [id number] [place] [address]- 8530 Dec, [facility] [place] [facility] [address] [id number] [place] [address]- 8040 October, [facility] [address] [id number] [place] [address]- 1051 October, [facility] [address] [id number] [place] [address]- 2595 October, [facility] [address] [id number] [place] [address]- 4832 Oct, [facility] [address] [id number] [place] [address]- 1086 Oct, [facility] [place] [facility] [address] [id number] [place] [address]- 3760 Oct, [facility] [place] [facility] [address] [id number] [place] [address]- 7657 Oct, [facility] [place] [facility] [address] [id number] [place] [address]- 9056 Aug, [facility] [place] [facility] [address] [id number] [place] [address]- 2546 Aug, [facility] [place] [facility] [address] [id number] [place] [address]- 2405 Aug, [facility] [place] [facility] [address] [id number] [place] [address]- 9861 Jul, [facility] [place] [facility] [address] [id number] [place] [address]- 1423 May, [facility] [place] [facility] [address] [id number] [place] [address]666 May, [facility] [place] [facility] [address] [id number] [place] [address]- 1635 Apr, [facility] [place] [facility] [address] [id number] [place] [address]- 3412 Apr, [facility] [place] [facility] [address] [id number] [place] [address]- 4265 Apr, [facility] [place] [facility] [address] [id number] [place] [address]- 8893 Apr, [facility] [place] [facility] [address] [id number] [place] [address]- 2011 Apr, [facility] [place] [facility] [address] [id number] [place] [address]- 9550 Apr, [facility] [place] [facility] [address] [id number] [place] [address]- 3098 Apr, [facility] [place] [facility] [address] [id number] [place] [address]- 8264 Apr, [facility] [place] [facility] [address] [id number] [place] [address]- 7775 Apr, [facility] [place] [facility] [address] [id number] [place] [address]- 3040 Apr, [facility] [place] [facility] [address] [id number] [place] [address]- 9420 Apr, [facility] [place] [facility] [address] [id number] [place] [address]- 8007 Apr, [facility] [place] [facility] [address] [id number] [place] [address]- 3466 Mar, [facility] [address] [id number] [place] [address]- 7595 Jan, [facility] [place] [facility] [address] [id number] [place] [address]- 2522 Dec, [facility] [place] [facility] [address] [id number] [place] [address]- 9985 October, [facility] [place] [facility] [address] [id number] [place] [address]- 9683 Oct, [facility] [place] [facility] [address] [id number] [place] [address]- 2029 Oct, [facility] [place] [facility] [address] [id number] [place] [address]- 0743 Oct, [facility] [place] [facility] [address] [id number] [place] [address]- 6152 Aug, [facility] [place] [facility] [address] [id number] [place] [address]- 7591 Aug, [facility] [place] [facility] [address] [id number] [place] [address] 29 Aug, 2011 [facility] [place] [facility] [address] [facility] [id number] [place] [address]32 16 Aug, 2011 [facility] [place] [facility] [address] [facility] [id number] [place] [address]- 8886 15 Aug, 2011 [facility] [place] [facility] [address] [facility] [id number] [place] [address]- 4178 Aug, [facility] [place] [facility] [address] [id number] [place] [address]- 3299 Jun, [facility] [place] [facility] [address] [id number] [place] [address]- 4586 Apr, [facility] [place] [facility] [address] [facility] [id number] [place] [address]- 0955 Jun, [facility] [address] [facility] [id number] [place] [address]- 7776 Jun, [facility] [address] [id number] [place] [address]- 6856 May, [facility] [address] [facility] [id number] [place] [address]- 5530 May, [facility] [address] [id number] [place] [address]- 9610 Apr, [facility] [address] [facility] [id number] [place] [address]- 0338 Apr, IMMUNIZATIONS No Known Immunizations SOCIAL HISTORY Never Assessed REASON FOR VISIT Prior Authorization Request PLAN OF CARE VITAL SIGNS MEDICATIONS Unknown Medications RESULTS No Results PROCEDURES No Known procedures [...] History see above surgeries Hospitalization History Anaphylactic shock-[facility] 08/23/16
--- OUTSIDE RECORDS SUMMARY | 2018-07-18 07:13 | XMS REPORT ---
Author Author BRANDY SAGAR [facility] Address [address] [place] [address] Care Team Providers Care Gang Plank Workman Name Role Phone BRANDYTEZ HOYTHANY Unavailable PROBLEMS Type Condition ICD9-CM Code TXX57-JA Code Onset Dates Condition Status SNOMED Code Problem Migraine with aura and without status migrainosus, not intractable G43.109 Active 1118074 Problem PCOS (polycystic ovarian syndrome) E28.2 Active 54162221 Problem Uncomplicated severe persistent asthma J45.50 Active 297893825 Problem Severe persistent asthma with exacerbation J45.51 Active 509252837 Problem Other elevated white blood cell (WBC) count D72.828 Active 127495999 Problem Multiple food allergies Z91.018 Active 838977574 Problem Pure hypercholesterolemia E78.00 Active 145625410 Problem Current chronic use of inhaled steroid Z79.51 Active 341133965 Problem Asthma exacerbation J45.901 Active 379228791 Problem ADD (attention deficit disorder) F90.0 Active 546313632 Problem Allergic rhinitis due to pollen J30.1 Active 35358837 Problem Vitamin D deficiency E55.9 Active 03563786 Problem Major depressive disorder, recurrent episode, mild F33.0 Active 396643845 Problem Acquired hypothyroidism E03.9 Active 892678596 Problem Gastroesophageal reflux disease without esophagitis K21.9 Active 453961644 ALLERGIES No Information ENCOUNTERS Encounter Location Date Diagnosis [facility] [id number] [address] Mar, Severe persistent asthma with exacerbation J45.51 and Haemophilus infection A49.2 [facility] [id number], [place] [address] Mar, [facility] [id number], [place] [address] Mar, Multiple food allergies Z91.018 [facility] [facility] [id number] [place] [address] 87046- 0759 Jan, Allergic rhinitis due to pollen J30.1 [facility] [id number] [place] [address] 02133- 1990 Jan, [place] [id number] [place] [address] 68999- 3897 Jan, Allergic reaction, initial encounter T78.40XA [facility] [address] 77681- 2163 Dec, Allergic rhinitis due to pollen J30.1 [place] [id number] [place] [address] 58558- 7871 Dec, [facility] [id number] [place] [address] 75526- 7110 Dec, Allergic rhinitis due to pollen J30.1 [place] [id number] [place] [address] 27576- 0183 Dec, ADD (attention deficit disorder) F90.0 [place] [address] 13178- 9645 Dec, ADD (attention deficit disorder) F90.0 and Uncomplicated severe persistent asthma J45.50 [facility] [facility] [id number] [place] [address] 40757- 9776 Dec, Allergic rhinitis due to pollen J30.1 [facility] [id number] [place] [address] 33561- 7966 Dec, [facility] [facility] [id number] [place] [address] 08280- 9914 October, Allergic rhinitis due to pollen J30.1 [facility] [facility] [id number] [place] [address] 63011- 6631 October, Allergic rhinitis due to pollen J30.1 [facility] [facility] [id number] [place] [address] 63445- 6106 Oct, [facility] [facility] [id number] [place] [address] 47962- 9566 Oct, Allergic rhinitis due to pollen J30.1 [place] [id number] [place] [address] 08476- 6476 Oct, [place] [id number] [place] [address] 32080- 4651 Oct, Allergic rhinitis due to pollen J30.1 [facility] [facility] [id number] [place] [address] 74137- 5215 Oct, Severe persistent asthma with exacerbation J45.51 and Pneumonia due to Haemophilus influenzae, unspecified laterality, unspecified part of lung J14 [facility] [id number] [place] [address] 66534- 9564 Oct, ADD (attention deficit disorder) F90.0 [place] [address] 53256- 5385 Aug, Haemophilus influenzae infection A49.2 [place] [address] 95130- 1123 Aug, Cough productive of purulent sputum R05 [place] [id number] [place] [address] 76626- 6831 Aug, [facility] [facility] [id number] [place] [address] 81461- 3928 Aug, Pulmonary congestion R09.89 [place] [address] 81576- 4903 Aug, Severe persistent asthma with exacerbation J45.51 ; Hiatal hernia K44.9 and Gastroesophageal reflux disease without esophagitis K21.9 [facility] [facility] [id number] [place] [address] 86155- 5935 Aug, Other elevated white blood cell (WBC) count D72.828 [place] [facility] [address] 79342- 2801 Aug, Uncomplicated severe persistent asthma J45.50 [facility] [address] 49770- 5321 Aug, Pure hypercholesterolemia E78.00 ; Uncomplicated severe persistent asthma J45.50 and Acquired hypothyroidism E03.9 [facility] [address] 81150- 2101 Aug, Acquired hypothyroidism E03.9 ; Pure hypercholesterolemia E78.00 and Uncomplicated severe persistent asthma J45.50 [place] [address] 747203- 6359 15 Aug, 2017 Allergic rhinitis due to pollen J30.1 [place] [address] 36635- 0126 Aug, Allergic rhinitis due to pollen J30.1 [place] [address] 31806- 5596 Aug, [place] [address] [id number] Jul, Pharyngitis, unspecified etiology J02.9 and Lymphadenopathy R59.1 [place] [address] 38596- 6309 Jul, ADD (attention deficit disorder) F90.[address] 43328- 2936 Jul, Allergic rhinitis due to pollen J30.1 [facility] [address] 31167- 2226 Jul, Dental examination Z01.20 [place] [address] 24641- 1798 Jun, Cough productive of purulent sputum R05 [place] [address] 63368- 1196 Jun, Allergic rhinitis due to pollen J30.1 [facility] [id number] [place] [address] 50263- 2466 Jun, [facility] [address] 69637- 5863 Jun, Allergic rhinitis due to pollen J30.1 [facility] [id number] [place] [address] 67931- 5959 Jun, Allergic rhinitis due to pollen J30.1 [place] [address] 72196- 5960 May, Allergic rhinitis due to pollen J30.1 [place] [address] 46908- 0225 May, Pneumonia due to Haemophilus influenzae, unspecified laterality, unspecified part of lung J14 [address] 43072- 0113 May, Allergic rhinitis due to pollen J30.1 [facility] [id number] [place] [address] 08219- 1492 May, Other adverse food reactions, not elsewhere classified, initial encounter T78.1XXA and Pneumonia due to Haemophilus influenzae, unspecified laterality, unspecified part of lung J14 [place] [id number] [place] [address] 76670- 4672 13 May, 2017 Pneumonia due to Haemophilus influenzae, unspecified laterality, unspecified part of lung J14 [place] [id number] [place] [address] 21048- 4792 May, Multiple food allergies Z91.018 ; Uncomplicated severe persistent asthma J45.50 ; Cough productive of purulent sputum R05 and Uses central nervous system stimulants F15.90 [place] [id number] [place] [address] 36235- 9382 Apr, Allergic rhinitis due to pollen J30.1 [place] [id number] [place] [address] 75472- 3376 Apr, Allergic rhinitis due to pollen J30.1 [facility] [id number] [place] [address] 94217- 2494 Apr, Allergic rhinitis due to pollen J30.1 [facility] [id number] [place] [address] 53891- 5442 11 Apr, 2017 ADD (attention deficit disorder) F90.0 [place] [address] 44984- 6654 28 Mar, 2017 Allergic rhinitis due to pollen J30.1 [place] [id number] [place] [address] 88948- 8716 21 Mar, 2017 Encounter for immunization Z23 [place] [address] 77182- 9548 19 Mar, 2017 [place] [address] 53685- 4966 14 Mar, 2017 Allergic rhinitis due to pollen J30.1 [place] [id number] [place] [address] 24165- 2170 07 Mar, 2017 Allergic rhinitis due to pollen J30.1 [place] [id number] [place] [address] 80860- 4187 Jan, Allergic rhinitis due to pollen J30.1 [place] [id number] [place] [address] 75782- 7525 Jan, Allergic rhinitis due to pollen J30.1 [place] [id number] [place] [address] 82629- 4640 Dec, Uncomplicated severe persistent asthma J45.50 [place] [address] 40116- 7181 Dec, Allergic rhinitis due to pollen J30.1 [place] [address] 31716- 5817 Dec, Allergic rhinitis due to pollen J30.1 [place] [address] [place] [address]- 3612 Dec, Allergic rhinitis due to pollen J30.1 [facility] [id number] [place] [address] 06563- 2021 Dec, ADD (attention deficit disorder) F90.0 [place] [address] 57087- 3111 Dec, Allergic rhinitis due to pollen J30.1 [place] [id number] [place] [address] 75341- 6015 Dec, Visit for TB skin test Z11.1 and Screening for tuberculosis Z11.1 [place] [address] 68407- 6738 Dec, Uncomplicated severe persistent asthma J45.50 ; Palpitations R00.2 ; Pericardial effusion (noninflammatory) I31.3 and Chest discomfort R07.89 [place] [address] 17190- 9189 Dec, Allergic rhinitis due to pollen J30.1 [place] [id number] [place] [address] 50581- 7921 Dec, Chronic cough R05 [place] [id number] [place] [address] 34172- 1216 Dec, [place] [id number] [place] [address] 93270- 8501 Dec, Allergic rhinitis due to pollen J30.1 [place] [id number] [place] [address] 12745- 5648 Dec, Allergic rhinitis due to pollen J30.1 [facility] [id number] [place] [address] 64993- 2002 Dec, Chronic cough R05 [place] [id number] [place] [address] 70141- 5313 October, Allergic rhinitis due to pollen J30.1 [place] [id number] [place] [address] 00158- 8170 October, Allergic rhinitis due to pollen J30.1 [facility] [id number] [place] [address] 77702- 8186 October, [place] [id number] [place] [address] 57789- 8259 October, Asthma exacerbation J45.901 [place] [id number] [place] [address] 33898- 8619 October, Asthma exacerbation J45.901 and Current chronic use of inhaled steroid Z79.51 [place] [address] 34541- 1964 October, Uncomplicated severe persistent asthma J45.50 [facility] [id number] [place] [address] 51109- 0439 October, Allergic rhinitis due to pollen J30.1 [place] [id number] [place] [address] 73990- 5786 Oct, [place] [id number] [place] [address] 49783- 6883 Oct, Asthma exacerbation J45.901 and Sputum production R05 [place] [id number] [place] [address] 63625- 2783 Oct, Asthma exacerbation J45.901 [place] [id number] [place] [address] 99395- 4175 Oct, ADD (attention deficit disorder) F90.0 [place] [id number] [place] [address] 63649- 8538 Oct, ADD (attention deficit disorder) F90.0 [place] [id number] [place] [address] 35015- 4372 Aug, Allergic rhinitis due to pollen J30.1 [place] [id number] [place] [address] 29862- 8532 Aug, Atypical pneumonia J18.9 [place] [address] 77233- 2104 Aug, Allergic rhinitis due to pollen J30.1 [facility] [address] 55348- 1995 Aug, Acquired hypothyroidism E03.9 [place] [address] 93664- 6039 Aug, Multiple food allergies Z91.018 ; Elevated blood pressure reading R03.0 and Anaphylaxis, subsequent encounter T78.2XXD [place] [address] [id number] Aug, [place] [address] 75343- 3768 Aug, Anaphylaxis, initial encounter T78.2XXA [place] [address] 71817- 2338 Aug, Allergic rhinitis due to pollen J30.1 [place] [address] 17770- 0929 Aug, Dental examination Z01.20 [place] [address] 11617- 2404 Aug, Allergic rhinitis due to pollen J30.1 [place] [address] 72428- 4062 Aug, Acquired hypothyroidism E03.9 and Pure hypercholesterolemia E78.00 [place] [address] 83179- 4620 Aug, ADD (attention deficit disorder) F90.0 ; Acquired hypothyroidism E03.9 and Pure hypercholesterolemia E78.00 [place] [address] 03461- 6446 Aug, Asthma exacerbation J45.901 [place] [address], [place] [address]- 4648 Jul, Allergic rhinitis due to pollen J30.1 [facility] [id number] [place] [address] 28854- 7751 Jul, Allergic rhinitis due to pollen J30.1 [facility] [address], [place] [address]- 6918 Jul, [facility] [id number] [place] [address] 47344- 1808 Jul, Allergic rhinitis due to pollen J30.1 [facility] [address] [place] [address] 94066- 7161 Jul, Other senior care (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 and ADD ( attention deficit disorder) F90.0 [place] [id number] [place] [address] 80631- 5162 Jul, 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 solutions architect (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 and ADD ( attention deficit disorder) F90.0 [facility] [address] [place] [address] 79955- 6706 Jul, [facility] [id number] [place] [address] 13594- 6441 Jun, Allergic rhinitis due to pollen J30.1 [facility] [address], [place] [address]- 5367 Jun, Allergic rhinitis due to pollen J30.1 [facility] [address], [place] [address]- 8970 Jun, [facility] [id number] [place] [address] 85665- 7820 May, Allergic rhinitis due to pollen J30.1 [facility] [address], [place] [address]- 4229 May, Allergic rhinitis due to pollen J30.1 [facility] [id number] [place] [address] 50861- 4200 Apr, Allergic rhinitis due to pollen J30.1 [place] [address] 31588- 2481 Apr, Allergic rhinitis due to pollen J30.1 [place] [address] 62646- 6151 Apr, Encounter for immunization Z23 [place] [address] 98996- 5159 Apr, [place] [address] 20584- 1323 Mar, Allergic rhinitis due to pollen J30.1 [place] [address] 70206- 2261 Mar, Multiple allergies Z88.9 [place] [address] 87203- 9299 Mar, Candidal vaginitis B37.3 [place] [address] 52053- 0652 Mar, Allergic rhinitis due to pollen J30.1 [place] [id number] [place] [address] 15969- 0386 Jan, Asthma exacerbation J45.901 ; Fatigue, unspecified type R53.83 and Community acquired pneumonia J18.9 [facility] [id number] [place] [address] [id number] Jan, Encounter for dental examination Z01.20 [place] [address] 58373- 1175 Jan, Allergic rhinitis due to pollen J30.1 [place] [id number] [place] [address] 66255- 8807 Dec, Allergic rhinitis due to pollen J30.1 [place] [address] 99294- 3700 Dec, [facility] [address], [place] [address]- 5402 Dec, Allergic rhinitis due to pollen J30.1 [facility] [address], [place] [address]- 4012 Dec, [facility] [address] [place] [address] 82716- 7033 Dec, [facility] [address] [place] [address] 87435- 9751 Dec, [facility] [id number] [place] [address] 59662- 0552 Dec, Allergic rhinitis due to pollen J30.1 [facility] [id number] [place] [address] 71432- 7154 Dec, [facility] [id number] [place] [address] 65583- 1184 Dec, [facility] [address] [place] [address] 86729- 8977 Dec, Allergic rhinitis due to pollen J30.1 [facility] [address], [place] [address]- 8081 October, Allergic rhinitis due to pollen J30.1 [facility] [address], [place] [address]- 6593 October, Allergic rhinitis due to pollen J30.1 [facility] [address], [place] [address]- 5360 October, [facility] [id number] [place] [address] 91813- 9772 October, [facility] [address], [place] [address]- 9646 October, ADD (attention deficit disorder) F90.0 ; Major depressive disorder, recurrent episode, mild F33.0 and Uncomplicated severe persistent asthma J45.50 [facility] [id number] [place] [address] 14677- 0348 Oct, Allergic rhinitis due to pollen J30.1 [facility] [id number] [place] [address] 30702- 7882 Oct, ADD (attention deficit disorder) F90.0 [place] [address] 02102- 0984 Oct, Allergic rhinitis due to pollen 477.0 [place] [id number] [place] [address] 57365- 1216 Aug, Allergic rhinitis due to pollen 477.0 [place] [id number] [place] [address] 44150- 7604 Aug, 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 [place] [address] 49394- 2678 Aug, [place] [id number] [place] [address] 43232- 1898 Aug, Allergic rhinitis due to pollen 477.0 [place] [id number] [place] [address] 46864- 6215 Aug, Allergic rhinitis due to pollen 477.0 [place] [id number] [place] [address] 37797- 0334 Aug, Allergic rhinitis due to pollen 477.0 [facility] [id number] [place] [address] 75384- 1427 Aug, Exposure to influenza Z20.828 [facility] [address] [id number] Aug, Encounter for dental examination and cleaning without abnormal findings Z01.20 [facility] [id number] [place] [address] 80363- 5316 18 Aug, 2015 Allergic rhinitis due to pollen J30.1 [place] [id number] [place] [address] 50981- 1069 18 Aug, 2015 [place] [address] 21053- 9889 Aug, 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 [place] [id number] [place] [address] 46831- 5736 Jul, [place] [address] 82740- 5036 Jul, Allergic rhinitis due to pollen 477.0 [place] [id number] [place] [address] 11884- 8003 Jul, [place] [address] 20580- 1645 Jul, Allergic rhinitis due to pollen 477.0 [place] [address] 56188- 0035 Jun, ADD (attention deficit disorder) F90.0 ; Acquired hypothyroidism E03.9 ; PCOS (polycystic ovarian syndrome) E28.2 ; Polyarthralgia M25.50 and On stimulant medication Z79.899 [place] [id number] [place] [address] 34762- 0119 Apr, Encounter for immunization Z23 [place] [id number] [place] [address] 43925- 5533 16 Mar, 2015 Allergic rhinitis due to pollen 477.0 [place] [id number] [place] [address] 16180- 8406 14 Mar, 2015 Influenza vaccine administered V04.81 [place] [address] 12200- 9041 03 Mar, 2015 [place] [id number] [place] [address] 82046- 5369 Jan, Allergic rhinitis due to pollen 477.0 [place] [address] 86846- 6288 Jan, Allergic rhinitis due to pollen 477.0 [facility] [address] [facility] [id number] 1362 Jan, Allergic rhinitis due to pollen 477.0 [facility] [id number] [address] Jan, Dental examination V72.2 [facility] [address], [place] [address]- 5702 Dec, Allergic rhinitis due to pollen 477.0 [facility] [id number], [place] [address]- 5840 October, [facility] [id number], [place] [address]- 8106 Oct, [facility] [address], [place] [address]- 3564 Oct, [facility] [address], [place] [address]- 1484 Aug, [facility] [address], [place] [address]- 8369 Aug, [facility] [address], [place] [address]- 9839 Aug, [facility] [address], [place] [address]- 8013 Aug, [facility] [id number], [place] [address]- 2941 Aug, [facility] [address] [facility] [id number] 0943 Aug, [facility] [id number] [address] Aug, [facility] [id number] [address] Aug, [facility] [place] [facility] [address] [id number] [place] [address] Jul, [facility] [place] [facility] [address] [id number] [place] [address] Jul, [facility] [place] [facility] [address] [id number] [place] [address] Jul, [facility] [place] [facility] [address] [id number] [place] [address] Jul, [facility] [place] [facility] [address] [id number] [place] [address] Jul, [facility] [place] [facility] [address] [id number] [place] [address] Jul, [facility] [place] [facility] [address] [id number] [place] [address] Jul, [facility] [place] [facility] [address] [id number] [place] [address] Jul, [facility] [place] [facility] [address] [id number] [place] [address] Jul, [facility] [place] [facility] [address] [id number] [place] [address] Jul, [facility] [place] [facility] [address] [id number] [place] [address] Jul, [facility] [place] [facility] [address] [id number] [place] [address] Jun, [facility] [place] [facility] [address] [id number] [place] [address] Jun, [facility] [place] [facility] [address] [id number] [place] [address] Jun, [facility] [place] [facility] [address] [id number] [place] [address] Jun, [facility] [place] [facility] [address] [id number] [place] [address] Jun, [facility] [place] [facility] [address] [id number] [place] [address] Jun, [facility] [place] [facility] [address] [id number] [place] [address] May, [facility] [place] [facility] [address] [id number] [place] [address] 1992 May, [facility] [place] [facility] [address] [id number] [place] [address] May, [facility] [place] [facility] [address] [id number] [place] [address] May, [facility] [place] [facility] [address] [id number] [place] [address] May, [facility] [place] [facility] [address] [id number] [place] [address] May, [facility] [place] [facility] [address] [id number] [place] [address] Apr, [facility] [place] [facility] [address] [id number] [place] [address] Apr, [facility] [facility] [address] [id number] [place] [address] 30 Mar, 2014 [facility] [place] [facility] [address] [id number], [place] [address] 30 Mar, 2013 [facility] [place] [facility] [address] [id number], [place] [address] 30 Mar, 2013 [facility] [place] [facility] [address] [id number] [place] [address] 7[address] 30 Mar, 2014 [facility] [place] [facility] [address] [id number], [place] [address] 19 Mar, 2014 [facility] [place] [facility] [address] [id number] [place] [address]698 19 Mar, 2014 [facility] [place] [facility] [address] [id number] [place] [address] Jan, [facility] [place] [facility] [address] [id number] [place] [address] Jan, [facility] [place] [facility] [address] [id number] [place] [address] 4420 Jan, [facility] [place] [facility] [address] [id number] [place] [address] 8514 Jan, [facility] [place] [facility] [address] [id number] [place] [address] 0879 Jan, [facility] [place] [facility] [address] [id number] [place] [address] 409[address] Jan, [facility] [place] [facility] [address] [id number] [place] [address]336 Dec, [facility] [place] [facility] [address] [id number] [place] [address]- 9988 Dec, [facility] [place] [facility] [address] [id number] [place] [address] 7153 Dec, [facility] [place] [facility] [address] [id number] [place] [address]- 3347 Dec, [facility] [place] [facility] [address] [id number] [place] [address]- 5622 Dec, [facility] [place] [facility] [address] [id number] [place] [address] 9291 Dec, [facility] [place] [facility] [address] [id number] [place] [address]- 8022 Dec, [facility] [place] [facility] [address] [id number] [place] [address]- 1158 Dec, [facility] [place] [facility] [address] [id number] [place] [address]- 2373 Dec, [facility] [place] [facility] [address] [id number] [place] [address]- 3755 Dec, [facility] [place] [facility] [address] [id number] [place] [address]- 9184 Dec, [facility] [place] [address] [id number] [place] [address] 4010 Dec, [facility] [place] [facility] [address] [id number] [place] [address] 1994 Dec, [facility] [place] [facility] [address] [id number] [place] [address] 7761 Dec, [facility] [place] [facility] [address] [id number] [place] [address]- 3334 Dec, [facility] [place] [address] [id number] [place] [address]- 0078 Dec, [facility] [place] [facility] [address] [id number] [place] [address]- 0681 October, [facility] [address] [id number] [place] [address]- 3543 October, [facility] [place] [address] [id number] [place] [address]- 5494 October, [facility] [place] [facility] [address] [id number] [place] [address]- 5739 October, [facility] [address] [id number] [place] [address] 3963 October, [facility] [address] [id number] [place] [address]- 7818 October, [facility] [place] [address] [id number] [place] [address]- 3385 Oct, [facility] [address] [id number] [place] [address]- 7055 Oct, [facility] [address] [id number] [place] [address]- 3334 Oct, [facility] [place] [facility] [address] [id number] [place] [address]- 2546 Oct, [facility] [address] [id number] [place] [address]- 5282 Oct, [facility] [address] [id number] [place] [address]- 4476 Oct, [facility] [place] [facility] [address] [id number] [place] [address] 5766 Aug, [facility] [facility] [address] [id number] [place] [address]- 6461 Aug, [facility] [address] [id number] [place] [address]- 3552 Aug, [facility] [address] [id number] [place] [address] 5018 Aug, [facility] [address] [id number] [place] [address]- 6544 Jul, [facility] [address] [id number] [place] [address]- 6458 Jul, [facility] [address] [id number] [place] [address]- 1620 Jul, [facility] [address] [id number] [place] [address]- 8497 Jul, [facility] [address] [id number] [place] [address] 3164 Jun, [facility] [address] [id number] [place] [address]- 2878 Jun, [facility] [address] [id number] [place] [address]- 9346 24 Jun, 2013 [facility] [address] [id number] [place] [address] 2612 24 Jun, 2013 [facility] [address] [id number] [place] [address]- 4399 20 Jun, 2013 [facility] [address] [id number] [place] [address] 0061 18 Jun, 2013 [facility] [address] [id number] [place] [address] 8858 Jun, [facility] [address] [id number] [place] [address]- 2543 Jun, [facility] [address] [id number] [place] [address]- 8919 Jun, [facility] [address] [id number] [place] [address] 9132 Jun, [facility] [address] [id number] [place] [address] 8104 Jun, [facility] [address] [id number] [place] [address] 5875 May, [facility] [address] [id number] [place] [address] 2577 May, [facility] [address] [id number] [place] [address] 4461 May, [facility] [address] [id number] [place] [address] 9333 May, [facility] [address] [id number] [place] [address]- 6534 May, [facility] [address] [id number] [place] [address]- 0348 May, [facility] [address] [id number] [place] [address] 0550 May, [facility] [address] [id number] [place] [address]- 6301 Apr, [facility] [address] [id number] [place] [address]- 2546 Apr, [facility] [address] [id number] [place] [address]- 3340 Apr, [facility] [address] [id number] [place] [address]- 0032 Apr, [facility] [address] [id number] [place] [address]- 5710 Mar, [facility] [address] [id number] [place] [address]- 8607 Mar, [facility] [address] [id number] [place] [address]- 0424 Mar, [facility] [address] [id number] [place] [address]- 8380 Mar, [facility] [address] [id number] [place] [address]- 9165 Mar, [facility] [address] [id number] [place] [address]- 5253 Mar, [facility] [address] [id number] [place] [address]- 2398 Jan, [facility] [address] [id number] [place] [address]- 9014 Jan, [facility] [address] [id number] [place] [address]- 5614 Jan, [facility] [address] [id number] [place] [address]- 6518 Jan, [facility] [address] [id number] [place] [address]- 1185 Jan, [facility] [address] [id number] [place] [address]- 1725 Dec, [facility] [address] [id number] [place] [address]- 3677 Dec, [facility] [address] [id number] [place] [address]- 0046 Dec, [facility] [address] [id number] [place] [address]- 5258 Dec, [facility] [address] [id number] [place] [address]- 6502 Dec, [facility] [address] [id number] [place] [address]- 0241 Dec, [facility] [address] [id number] [place] [address]- 2552 Dec, [facility] [address] [id number] [place] [address]- 1460 Dec, [facility] [address] [id number] [place] [address]- 4077 October, [facility] [address] [id number] [place] [address]- 0311 October, [facility] [address] [id number] [place] [address]- 4566 October, [facility] [address] [id number] [place] [address]- 3323 Oct, [facility] [address] [id number] [place] [address]- 4456 Oct, [facility] [address] [id number] [place] [address]- 3025 Oct, [facility] [address] [id number] [place] [address]- 1411 Oct, [facility] [address] [id number] [place] [address]- 4925 Aug, [facility] [address] [id number] [place] [address]- 4092 07 Aug, 2012 [facility] [address] [id number] [place] [address]- 2118 05 Aug, 2012 [facility] [address] [id number] [place] [address]- 9327 Jul, [facility] [address] [id number] [place] [address]- 0699 May, [facility] [address] [id number] [place] [address]- 2809 May, [facility] [address] [id number] [place] [address]- 2619 Apr, [facility] [address] [id number] [place] [address]- 7411 Apr, [facility] [address] [id number] [place] [address]- 3474 Apr, [facility] [address] [id number] [place] [address]- 2098 Apr, [facility] [address] [id number] [place] [address]- 9413 Apr, [facility] [address] [id number] [place] [address]- 6660 Apr, [facility] [address] [id number] [place] [address]- 5816 Apr, [facility] [address] [id number] [place] [address]- 5690 Apr, [facility] [address] [id number] [place] [address]- 1979 Apr, [facility] [address] [id number] [place] [address]- 0175 Apr, [facility] [address] [id number] [place] [address]- 9743 14 Apr, 2012 [facility] [address] [id number] [place] [address]- 8696 Apr, [facility] [address] [id number] [place] [address]- 1796 17 Mar, 2012 [facility] [address] [id number] [place] [address]- 1998 Jan, [facility] [address] [id number] [place] [address]- 4457 Dec, [facility] [address] [id number] [place] [address]- 3760 October, [facility] [address] [id number] [place] [address]- 2026 Oct, [facility] [address] [id number] [place] [address]- 9530 Oct, [facility] [address] [id number] [place] [address]- 4510 Oct, [facility] [address] [id number] [place] [address]- 7799 Aug, [facility] [address] [id number] [place] [address]- 9706 Aug, [facility] [address] [id number] [place] [address]- 8287 Aug, [facility] [address] [id number] [place] [address]- 0870 Aug, [facility] [address] [id number] [place] [address]- 4200 Aug, [facility] [address] [id number] [place] [address]- 5313 Aug, [facility] [address] [id number] [place] [address]- 0968 Jun, [facility] [address] [id number] [place] [address]- 8040 Apr, [facility] [address] [id number] [place] [address]- 6817 Jun, [facility] [address] [id number] [place] [address] 2546 Jun, [facility] [address] [facility] [id number] [place] [address]- 1076 03 May, 2010 [facility] [address] [facility] [id number], [place] [address]- 9716 May, [facility] [address] [id number] [address] Apr, [facility] [address] [facility] [id number] [address] [address] Apr, IMMUNIZATIONS No Known Immunizations SOCIAL HISTORY Never Assessed REASON FOR VISIT medication PLAN OF CARE VITAL SIGNS MEDICATIONS Medication Instructions Dosage Frequency Start Date End Date Duration Status Auvi-Q 0.3 MG/0.3ML as directed Mar, Active RESULTS No Results PROCEDURES No Known procedures INSTRUCTIONS MEDICATIONS ADMINISTERED No Known Medications MEDICAL (GENERAL) HISTORY Type Description Date Medical History Hypothyroid Medical History Asthma Medical History Migraine Headaches Medical History Depression Medical History ADHD Medical History GERD Medical History Allergic Rhinitis Medical History PCOS Surgical History Left wrist plate 2002 Surgical History 2003 Surgical History 2010 Surgical History EGD 2012 Surgical History Hiatal Hernia Repair and Fundoplication 2013 Surgical History 2014 Surgical History Wound Dehisance 2014 Hospitalization History see above surgeries Hospitalization History Anaphylactic shock-[facility] 08/23/16
[2018-07-18] MEDS ORDERED: NS IV 1000 ML 1,000 ML ONE (07:14)
--- OUTSIDE RECORDS SUMMARY | 2018-07-18 07:14 | XMS REPORT ---
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 Name Role Phone BRANDYTEZ HOYTHANY Unavailable PROBLEMS Type Condition ICD9-CM Code HKW77-CM Code Onset Dates Condition Status SNOMED Code Problem Migraine with aura and without status migrainosus, not intractable G43.109 Active 3712834 Problem PCOS (polycystic ovarian syndrome) E28.2 Active 72395731 Problem Uncomplicated severe persistent asthma J45.50 Active 139216957 Problem Severe persistent asthma with exacerbation J45.51 Active 321105759 Problem Other elevated white blood cell (WBC) count D72.828 Active 229411349 Problem Multiple food allergies Z91.018 Active 337336936 Problem Pure hypercholesterolemia E78.00 Active 087176265 Problem Current chronic use of inhaled steroid Z79.51 Active 764691661 Problem Asthma exacerbation J45.901 Active 556937530 Problem ADD (attention deficit disorder) F90.0 Active 025069229 Problem Allergic rhinitis due to pollen J30.1 Active 88350404 Problem Vitamin D deficiency E55.9 Active 30968055 Problem Major depressive disorder, recurrent episode, mild F33.0 Active 549264686 Problem Acquired hypothyroidism E03.9 Active 333894427 Problem Gastroesophageal reflux disease without esophagitis K21.9 Active 963167672 ALLERGIES No Information ENCOUNTERS Encounter Location Date Diagnosis [facility] [id number] [address] Mar, Severe persistent asthma with exacerbation J45.51 and Haemophilus infection A49.2 [facility] [id number], [place] [address] Mar, [facility] [id number], [place] [address] Mar, Multiple food allergies Z91.018 [place] [id number] [place] [address] 77905- 9779 Jan, Allergic rhinitis due to pollen J30.1 [place] [id number] [place] [address] 98607- 3790 Jan, [place] [id number] [place] [address] 04441- 0223 Jan, Allergic reaction, initial encounter T78.40XA [facility] [address] 15231- 6281 Dec, Allergic rhinitis due to pollen J30.1 [place] [id number] [place] [address] 85421- 8409 Dec, [place] [id number] [place] [address] 36279- 0900 Dec, Allergic rhinitis due to pollen J30.1 [place] [id number] [place] [address] 37540- 0440 Dec, ADD (attention deficit disorder) F90.0 [place] [address] 57573- 8844 Dec, ADD (attention deficit disorder) F90.0 and Uncomplicated severe persistent asthma J45.50 [place] [id number] [place] [address] 99563- 4183 Dec, Allergic rhinitis due to pollen J30.1 [place] [id number] [place] [address] 27689- 8899 Dec, [place] [id number] [place] [address] 97989- 4896 October, Allergic rhinitis due to pollen J30.1 [place] [address] [place] [address] 74192- 9518 October, Allergic rhinitis due to pollen J30.1 [place] [address] [place] [address] 00843- 1751 Oct, [place] [address] [place] [address] 07455- 8375 Oct, Allergic rhinitis due to pollen J30.1 [place] [address] [place] [address] 79886- 2250 Oct, [place] [address] [place] [address] 12976- 9115 Oct, Allergic rhinitis due to pollen J30.1 [place] [address] [place] [address] 39252- 8667 Oct, Severe persistent asthma with exacerbation J45.51 and Pneumonia due to Haemophilus influenzae, unspecified laterality, unspecified part of lung J14 [place] [id number] [place] [address] 08345- 8413 Oct, ADD (attention deficit disorder) F90.0 [place] [address] 38904- 2338 Aug, Haemophilus influenzae infection A49.2 [place] [address] 44237- 0622 Aug, Cough productive of purulent sputum R05 [place] [id number] [place] [address] 27222- 2565 Aug, [place] [id number] [place] [address] 28864- 0670 Aug, Pulmonary congestion R09.89 [place] [address] 10243- 2911 Aug, Severe persistent asthma with exacerbation J45.51 ; Hiatal hernia K44.9 and Gastroesophageal reflux disease without esophagitis K21.9 [place] [address] [place] [address] 99854- 2647 Aug, Other elevated white blood cell (WBC) count D72.828 [place] [address] 62819- 5318 Aug, Uncomplicated severe persistent asthma J45.50 [facility] [address] 56756- 9109 Aug, Pure hypercholesterolemia E78.00 ; Uncomplicated severe persistent asthma J45.50 and Acquired hypothyroidism E03.9 [facility] [address] 44329- 3670 Aug, Acquired hypothyroidism E03.9 ; Pure hypercholesterolemia E78.00 and Uncomplicated severe persistent asthma J45.50 [place] [address] 010300- 0824 15 Aug, 2017 Allergic rhinitis due to pollen J30.1 [place] [address] 61067- 4041 Aug, Allergic rhinitis due to pollen J30.1 [place] [address] 60772- 3483 Aug, [place] [address] [id number] Jul, Pharyngitis, unspecified etiology J02.9 and Lymphadenopathy R59.1 [place] [address] 15773- 6909 Jul, ADD (attention deficit disorder) F90.[address] 26488- 3097 Jul, Allergic rhinitis due to pollen J30.1 [place] [address] 16693- 8881 Jul, Dental examination Z01.20 [place] [address] 86391- 8456 Jun, Cough productive of purulent sputum R05 [place] [address] 36713- 8227 Jun, Allergic rhinitis due to pollen J30.1 [place] [address] [place] [address] 93186- 3050 Jun, [place] [address] 48314- 3898 Jun, Allergic rhinitis due to pollen J30.1 [place] [address] [place] [address] 12940- 5251 Jun, Allergic rhinitis due to pollen J30.1 [place] [address] 46721- 9418 May, Allergic rhinitis due to pollen J30.1 [place] [address] 35139- 6890 May, Pneumonia due to Haemophilus influenzae, unspecified laterality, unspecified part of lung J14 [address] 39815- 1424 May, Allergic rhinitis due to pollen J30.1 [place] [address] [place] [address] 06068- 9648 May, Other adverse food reactions, not elsewhere classified, initial encounter T78.1XXA and Pneumonia due to Haemophilus influenzae, unspecified laterality, unspecified part of lung J14 [place] [address] [place] [address] 30636- 0974 13 May, 2017 Pneumonia due to Haemophilus influenzae, unspecified laterality, unspecified part of lung J14 [place] [address] [place] [address] 49895- 9209 May, Multiple food allergies Z91.018 ; Uncomplicated severe persistent asthma J45.50 ; Cough productive of purulent sputum R05 and Uses central nervous system stimulants F15.90 [place] [address] [place] [address] 87177- 6009 Apr, Allergic rhinitis due to pollen J30.1 [place] [address] [place] [address] 85036- 7038 Apr, Allergic rhinitis due to pollen J30.1 [facility] [address] [place] [address] 32467- 4471 Apr, Allergic rhinitis due to pollen J30.1 [facility] [address] [place] [address] 45200- 0319 11 Apr, 2017 ADD (attention deficit disorder) F90.0 [place] [address] 19020- 0206 28 Mar, 2017 Allergic rhinitis due to pollen J30.1 [place] [address] [place] [address] 53011- 0747 21 Mar, 2017 Encounter for immunization Z23 [place] [address] 43661- 0336 19 Mar, 2017 [place] [address] 29705- 8713 14 Mar, 2017 Allergic rhinitis due to pollen J30.1 [place] [address] [place] [address] 53713- 7154 07 Mar, 2017 Allergic rhinitis due to pollen J30.1 [place] [address] [place] [address] 76261- 3898 Jan, Allergic rhinitis due to pollen J30.1 [place] [address] [place] [address] 16343- 1965 Jan, Allergic rhinitis due to pollen J30.1 [place] [address] [place] [address] 37752- 1248 Dec, Uncomplicated severe persistent asthma J45.50 [place] [address] 67651- 1932 Dec, Allergic rhinitis due to pollen J30.1 [place] [address] 78644- 7688 Dec, Allergic rhinitis due to pollen J30.1 [place] [address] [place] [address]- 6311 Dec, Allergic rhinitis due to pollen J30.1 [place] [address] [place] [address] 60099- 7157 Dec, ADD (attention deficit disorder) F90.0 [place] [address] 65403- 7391 Dec, Allergic rhinitis due to pollen J30.1 [place] [address] [place] [address] 38825- 1611 Dec, Visit for TB skin test Z11.1 and Screening for tuberculosis Z11.1 [place] [address] 50561- 9866 Dec, Uncomplicated severe persistent asthma J45.50 ; Palpitations R00.2 ; Pericardial effusion (noninflammatory) I31.3 and Chest discomfort R07.89 [place] [address] 65238- 8611 Dec, Allergic rhinitis due to pollen J30.1 [place] [address] [place] [address] 00018- 9969 Dec, Chronic cough R05 [place] [address] [place] [address] 22506- 8140 Dec, [place] [address] [place] [address] 36145- 3489 Dec, Allergic rhinitis due to pollen J30.1 [place] [address] [place] [address] 96627- 3114 Dec, Allergic rhinitis due to pollen J30.1 [place] [address] [place] [address] 57479- 1845 Dec, Chronic cough R05 [address] [address] [place] [address] 23537- 6144 October, Allergic rhinitis due to pollen J30.1 [place] [address] [place] [address] 04341- 1150 October, Allergic rhinitis due to pollen J30.1 [facility] [address] [place] [address] 90486- 6387 October, [place] [address] [place] [address] 18419- 3442 October, Asthma exacerbation J45.901 [place] [address] [place] [address] 52791- 1785 October, Asthma exacerbation J45.901 and Current chronic use of inhaled steroid Z79.51 [place] [address] 67630- 3349 October, Uncomplicated severe persistent asthma J45.50 [place] [address] [place] [address] 58245- 5892 October, Allergic rhinitis due to pollen J30.1 [place] [address] [place] [address] 57043- 0524 Oct, [place] [address] [place] [address] 52957- 1633 Oct, Asthma exacerbation J45.901 and Sputum production R05 [place] [address] [place] [address] 86825- 8515 Oct, Asthma exacerbation J45.901 [place] [address] [place] [address] 10080- 9410 Oct, ADD (attention deficit disorder) F90.0 [place] [address] [place] [address] 73179- 8133 Oct, ADD (attention deficit disorder) F90.0 [place] [address] [place] [address] 41478- 6630 Aug, Allergic rhinitis due to pollen J30.1 [place] [address] [place] [address] 08616- 6359 Aug, Atypical pneumonia J18.9 [place] [address] 68147- 7771 Aug, Allergic rhinitis due to pollen J30.1 [facility] [address] 79099- 2552 Aug, Acquired hypothyroidism E03.9 [place] [address] 90271- 5698 Aug, Multiple food allergies Z91.018 ; Elevated blood pressure reading R03.0 and Anaphylaxis, subsequent encounter T78.2XXD [address] [address] [id number] Aug, [place] [address] 49860- 1036 Aug, Anaphylaxis, initial encounter T78.2XXA [place] [address] 46317- 9313 Aug, Allergic rhinitis due to pollen J30.1 [place] [address] 96637- 0630 Aug, Dental examination Z01.20 [place] [address] 82006- 0248 Aug, Allergic rhinitis due to pollen J30.1 [place] [address] 47472- 7176 Aug, Acquired hypothyroidism E03.9 and Pure hypercholesterolemia E78.00 [place] [address] 39243- 7375 Aug, ADD (attention deficit disorder) F90.0 ; Acquired hypothyroidism E03.9 and Pure hypercholesterolemia E78.00 [place] [address] 99278- 5425 Aug, Asthma exacerbation J45.901 [place] [address], [place] [address]- 2502 Jul, Allergic rhinitis due to pollen J30.1 [facility] [id number] [place] [address] 19099- 3681 Jul, Allergic rhinitis due to pollen J30.1 [facility] [address], [place] [address]- 9053 Jul, [facility] [id number] [place] [address] 83511- 9578 Jul, Allergic rhinitis due to pollen J30.1 [facility] [address] [place] [address] 59402- 8231 Jul, Other senior living (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 and ADD ( attention deficit disorder) F90.0 [place] [address] [place] [address] 97028- 7410 Jul, 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 and ADD ( attention deficit disorder) F90.0 [facility] [address] [place] [address] 67654- 3919 Jul, [facility] [id number] [place] [address] 50414- 1046 Jun, Allergic rhinitis due to pollen J30.1 [facility] [address], [place] [address]- 8313 Jun, Allergic rhinitis due to pollen J30.1 [facility] [address], [place] [address]- 9351 Jun, [facility] [id number] [place] [address] 58328- 4156 May, Allergic rhinitis due to pollen J30.1 [facility] [address], [place] [address]- 1057 May, Allergic rhinitis due to pollen J30.1 [facility] [address] [place] [address] 55145- 9085 Apr, Allergic rhinitis due to pollen J30.1 [place] [address] 44653- 0110 Apr, Allergic rhinitis due to pollen J30.1 [place] [address] 34490- 1249 Apr, Encounter for immunization Z23 [place] [address] 06157- 8610 Apr, [place] [address] 86832- 5655 Mar, Allergic rhinitis due to pollen J30.1 [place] [address] 01366- 3422 Mar, Multiple allergies Z88.9 [place] [address] 83316- 3464 Mar, Candidal vaginitis B37.3 [place] [address] 48664- 1074 Mar, Allergic rhinitis due to pollen J30.1 [place] [address] [place] [address] 35386- 8044 Jan, Asthma exacerbation J45.901 ; Fatigue, unspecified type R53.83 and Community acquired pneumonia J18.9 [facility] [id number] [place] [address] [id number] Jan, Encounter for dental examination Z01.20 [place] [address] 77292- 3459 Jan, Allergic rhinitis due to pollen J30.1 [place] [address] [place] [address] 28213- 7146 Dec, Allergic rhinitis due to pollen J30.1 [place] [address] 63084- 4007 Dec, [facility] [address], [place] [address]- 4923 Dec, Allergic rhinitis due to pollen J30.1 [facility] [address], [place] [address]- 6730 Dec, [facility] [address] [place] [address] 84597- 9341 Dec, [facility] [address] [place] [address] 80195- 6790 Dec, [facility] [address] [place] [address] 89923- 0364 Dec, Allergic rhinitis due to pollen J30.1 [facility] [address] [place] [address] 33216- 4418 Dec, [facility] [address] [place] [address] 64170- 3881 Dec, [facility] [address] [place] [address] 11988- 6657 Dec, Allergic rhinitis due to pollen J30.1 [facility] [address], [place] [address]- 2771 October, Allergic rhinitis due to pollen J30.1 [facility] [address], [place] [address]- 7135 October, Allergic rhinitis due to pollen J30.1 [facility] [address], [place] [address]- 7749 October, [facility] [id number] [place] [address] 70320- 5181 October, [facility] [address], [place] [address]- 9998 October, ADD (attention deficit disorder) F90.0 ; Major depressive disorder, recurrent episode, mild F33.0 and Uncomplicated severe persistent asthma J45.50 [facility] [id number] [place] [address] 54975- 7726 Oct, Allergic rhinitis due to pollen J30.1 [facility] [address] [place] [address] 90411- 0351 Oct, ADD (attention deficit disorder) F90.0 [place] [address] 05523- 3112 Oct, Allergic rhinitis due to pollen 477.0 [place] [address] [place] [address] 63870- 5482 Aug, Allergic rhinitis due to pollen 477.0 [place] [address] [place] [address] 16142- 0643 Aug, 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 [place] [address] 54318- 3211 Aug, [place] [address] [place] [address] 70422- 9786 Aug, Allergic rhinitis due to pollen 477.0 [place] [address] [place] [address] 61413- 6153 Aug, Allergic rhinitis due to pollen 477.0 [place] [address] [place] [address] 61034- 3049 Aug, Allergic rhinitis due to pollen 477.0 [facility] [address] [place] [address] 55832- 0919 Aug, Exposure to influenza Z20.828 [facility] [address] [id number] Aug, Encounter for dental examination and cleaning without abnormal findings Z01.20 [facility] [address] [place] [address] 80177- 6606 18 Aug, 2015 Allergic rhinitis due to pollen J30.1 [place] [address] [place] [address] 93275- 9313 18 Aug, 2015 [place] [address] 21273- 6022 Aug, 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 [place] [address] [place] [address] 32965- 0693 Jul, [place] [address] 58266- 1752 Jul, Allergic rhinitis due to pollen 477.0 [place] [address] [place] [address] 80652- 8059 Jul, [place] [address] 66927- 2051 Jul, Allergic rhinitis due to pollen 477.0 [place] [address] 47363- 4143 Jun, ADD (attention deficit disorder) F90.0 ; Acquired hypothyroidism E03.9 ; PCOS (polycystic ovarian syndrome) E28.2 ; Polyarthralgia M25.50 and On stimulant medication Z79.899 [place] [address] [place] [address] 68489- 2883 Apr, Encounter for immunization Z23 [place] [address] [place] [address] 48397- 1850 16 Mar, 2015 Allergic rhinitis due to pollen 477.0 [place] [address] [place] [address] 75842- 1152 14 Mar, 2015 Influenza vaccine administered V04.81 [place] [address] 13805- 7927 03 Mar, 2015 [place] [address] [place] [address] 50337- 7704 Jan, Allergic rhinitis due to pollen 477.0 [place] [address] 78992- 0158 Jan, Allergic rhinitis due to pollen 477.0 [facility] [address] [id number] 4586 Jan, Allergic rhinitis due to pollen 477.0 [facility] [id number] [address] Jan, Dental examination V72.2 [facility] [address], [place] [address]- 2399 Dec, Allergic rhinitis due to pollen 477.0 [facility] [id number], [place] [address]- 7183 October, [facility] [id number], [place] [address]- 9180 Oct, [facility] [address], [place] [address]- 1694 Oct, [facility] [address], [place] [address]- 9455 Aug, [facility] [address], [place] [address]- 2492 Aug, [facility] [id number] [address] Aug, [facility] [id number] [address] Aug, [facility] [id number] [address] Aug, [facility] [address] [id number] [address] Aug, [facility] [id number] [address] Aug, [facility] [id number] [address] [address] Aug, [facility] [place] [facility] [address] [id number] [place] [address] Jul, [facility] [place] [facility] [address] [id number] [place] [address] Jul, [facility] [place] [facility] [address] [id number] [place] [address] Jul, [facility] [place] [facility] [address] [id number] [place] [address] Jul, [facility] [place] [facility] [address] [id number] [place] [address] Jul, [facility] [place] [facility] [address] [id number] [place] [address] Jul, [facility] [place] [facility] [address] [id number] [place] [address] Jul, [facility] [place] [facility] [address] [id number] [place] [address] Jul, [facility] [place] [facility] [address] [id number] [place] [address] Jul, [facility] [place] [facility] [address] [id number] [place] [address] Jul, [facility] [place] [facility] [address] [id number] [place] [address] Jul, [facility] [place] [facility] [address] [id number] [place] [address] Jun, [facility] [place] [facility] [address] [id number] [place] [address] Jun, [facility] [place] [facility] [address] [id number] [place] [address] Jun, [facility] [place] [facility] [address] [id number] [place] [address] Jun, [facility] [place] [facility] [address] [id number] [place] [address] Jun, [facility] [place] [facility] [address] [id number] [place] [address] Jun, [facility] [place] [facility] [address] [id number] [place] [address] 18[address] May, [facility] [place] [facility] [address] [id number] [place] [address] 8[address] May, [facility] [place] [facility] [address] [id number] [place] [address] 8828 May, [facility] [place] [facility] [address] [id number] [place] [address]- 2411 May, [facility] [place] [facility] [address] [id number] [place] [address]- [address]36 May, [facility] [place] [facility] [address] [id number] [place] [address]- 0765 May, [facility] [place] [facility] [address] [id number] [place] [address] 63[address] Apr, [facility] [place] [facility] [address] [id number] [place] [address] 6746 Apr, [facility] [place] [facility] [address] [id number] [place] [address]- 7069 30 Mar, 2014 [facility] [place] [facility] [address] [id number] [address] 30 Mar, 2013 [facility] [place] [facility] [address] [id number], [place] [address]15 30 Mar, 2013 [facility] [place] [facility] [address] [id number] [place] [address]- 4928 30 Mar, 2014 [facility] [place] [facility] [address] [id number], [place] [address] 19 Mar, 2014 [facility] [place] [facility] [address] [id number] [place] [address]- 5200 19 Mar, 2014 [facility] [place] [facility] [address] [id number] [place] [address]- 6285 Jan, [facility] [place] [facility] [address] [id number] [place] [address]- 3784 Jan, [facility] [place] [facility] [address] [id number] [place] [address]- 0842 Jan, [facility] [place] [facility] [address] [id number] [place] [address]- 6581 Jan, [facility] [place] [facility] [address] [id number] [place] [address]- 4312 Jan, [facility] [place] [facility] [address] [id number] [place] [address]- 3545 Jan, [facility] [place] [facility] [address] [id number] [place] [address]- 5721 Dec, [facility] [place] [facility] [address] [id number] [place] [address]- 0756 Dec, [facility] [place] [facility] [address] [id number] [place] [address]- 8445 Dec, [facility] [place] [facility] [address] [id number] [place] [address]- 5580 Dec, [facility] [place] [facility] [address] [id number] [place] [address]- 9138 Dec, [facility] [place] [facility] [address] [id number] [place] [address]- 2707 Dec, [facility] [place] [facility] [address] [id number] [place] [address]- 3557 Dec, [facility] [place] [facility] [address] [id number] [place] [address]- 0555 Dec, [facility] [place] [facility] [address] [id number] [place] [address]- 9244 Dec, [facility] [place] [facility] [address] [id number] [place] [address]- 0486 Dec, [facility] [place] [facility] [address] [id number] [place] [address]- 3139 Dec, [facility] [place] [facility] [address] [id number] [place] [address]- 9989 Dec, [facility] [place] [facility] [address] [id number] [place] [address]- 6442 Dec, [facility] [place] [facility] [address] [id number] [place] [address]- 5647 Dec, [facility] [place] [facility] [address] [id number] [place] [address]- 6282 Dec, [facility] [place] [facility] [address] [id number] [place] [address]- 7121 Dec, [facility] [place] [facility] [address] [id number] [place] [address]- 7376 October, [facility] [place] [facility] [address] [id number] [place] [address]- 2672 October, [facility] [place] [facility] [address] [id number] [place] [address]- 6980 October, [facility] [place] [facility] [address] [id number] [place] [address]- [address] October, [facility] [place] [facility] [address] [id number] [place] [address]- 9498 October, [facility] [place] [facility] [address] [id number] [place] [address]- 5986 October, [facility] [place] [facility] [address] [id number] [place] [address]- 0709 Oct, [facility] [place] [facility] [address] [id number] [place] [address]- 4288 Oct, [facility] [place] [facility] [address] [id number] [place] [address]- 9686 Oct, [facility] [place] [facility] [address] [id number] [place] [address]- 2546 Oct, [facility] [place] [facility] [address] [id number] [place] [address]- 6322 Oct, [facility] [place] [facility] [address] [id number] [place] [address]- 4406 Oct, [facility] [place] [facility] [address] [id number] [place] [address]- 9840 Aug, [facility] [place] [facility] [address] [id number] [place] [address]- 6140 Aug, [facility] [place] [facility] [address] [id number] [place] [address]- 4751 Aug, [facility] [place] [facility] [address] [id number] [place] [address]- 7038 Aug, [facility] [place] [facility] [address] [id number] [place] [address]- 7529 Jul, [facility] [place] [facility] [address] [id number] [place] [address]- 1834 Jul, [facility] [place] [facility] [address] [id number] [place] [address]- 0903 Jul, [facility] [place] [facility] [address] [id number] [place] [address]- 0543 Jul, [facility] [place] [facility] [address] [id number] [place] [address]- 7154 Jun, [facility] [place] [facility] [address] [id number] [place] [address]- 5273 Jun, [facility] [place] [facility] [address] [id number] [place] [address]- 4523 24 Jun, 2013 [facility] [place] [facility] [address] [id number] [place] [address]- 6037 24 Jun, 2013 [facility] [place] [facility] [address] [id number] [place] [address]- 1702 20 Jun, 2013 [facility] [place] [facility] [address] [id number] [place] [address]- 2067 18 Jun, 2013 [facility] [address] [id number] [place] [address]- 3133 Jun, [facility] [place] [facility] [address] [id number] [place] [address]- 254 Jun, [facility] [place] [facility] [address] [id number] [place] [address]- 8433 Jun, [facility] [place] [facility] [address] [id number] [place] [address]- 9905 Jun, [facility] [place] [facility] [address] [id number] [place] [address]- 4269 Jun, [facility] [place] [facility] [address] [id number] [place] [address]- 9526 May, [facility] [place] [facility] [address] [id number] [place] [address]- 9790 May, [facility] [place] [facility] [address] [id number] [place] [address]- 8288 May, [facility] [place] [facility] [address] [id number] [place] [address]- 5504 May, [facility] [place] [facility] [address] [id number] [place] [address]- 1306 May, [facility] [place] [facility] [address] [id number] [place] [address]- 3515 May, [facility] [place] [facility] [address] [id number] [place] [address]- 3881 May, [facility] [place] [facility] [address] [id number] [place] [address]- 2146 Apr, [facility] [place] [facility] [address] [id number] [place] [address]- 2546 Apr, [facility] [place] [facility] [address] [id number] [place] [address]- 1698 Apr, [facility] [place] [facility] [address] [id number] [place] [address]- 4079 Apr, [facility] [place] [facility] [address] [id number] [place] [address]- 1934 Mar, [facility] [place] [facility] [address] [id number] [place] [address]- 1205 Mar, [facility] [place] [facility] [address] [id number] [place] [address]- 1566 Mar, [facility] [place] [facility] [address] [id number] [place] [address]- 8774 Mar, [facility] [place] [facility] [address] [id number] [place] [address]- 3271 Mar, [facility] [place] [facility] [address] [id number] [place] [address]- 4104 Mar, [facility] [place] [facility] [address] [id number] [place] [address]- 8854 Jan, [facility] [place] [facility] [address] [id number] [place] [address]- 9889 Jan, [facility] [place] [facility] [address] [id number] [place] [address]- 0589 Jan, [facility] [place] [facility] [address] [id number] [place] [address]- 5776 Jan, [facility] [place] [facility] [address] [id number] [place] [address]- 5463 Jan, [facility] [place] [facility] [address] [id number] [place] [address]- 7493 Dec, [facility] [place] [facility] [address] [id number] [place] [address]- 1253 Dec, [facility] [place] [facility] [address] [id number] [place] [address]- 2115 Dec, [facility] [place] [facility] [address] [id number] [place] [address]- 6359 Dec, [facility] [address] [id number] [place] [address]- 8201 Dec, [facility] [address] [id number] [place] [address]- 1016 Dec, [facility] [address] [id number] [place] [address]- 4997 Dec, [facility] [place] [facility] [address] [id number] [place] [address]- 2191 Dec, [facility] [address] [id number] [place] [address]- 3501 October, [facility] [address] [id number] [place] [address]- 4293 October, [facility] [address] [id number] [place] [address]- 4912 October, [facility] [address] [id number] [place] [address]- 7183 Oct, [facility] [address] [id number] [place] [address]- 4439 Oct, [facility] [address] [id number] [place] [address]- 6336 Oct, [facility] [address] [id number] [place] [address]- 6686 Oct, [facility] [place] [facility] [address] [id number] [place] [address]- 2471 Aug, [facility] [place] [facility] [address] [id number] [place] [address]- 1151 07 Aug, 2012 [facility] [place] [facility] [address] [id number] [place] [address]- 2152 05 Aug, 2012 [facility] [address] [id number] [place] [address]- 0460 Jul, [facility] [place] [facility] [address] [id number] [place] [address]- 9767 May, [facility] [place] [facility] [address] [id number] [place] [address]- 5278 May, [facility] [place] [facility] [address] [id number] [place] [address]- 0341 Apr, [facility] [place] [facility] [address] [id number] [place] [address]- 2106 Apr, [facility] [place] [facility] [address] [id number] [place] [address]- 0634 Apr, [facility] [place] [facility] [address] [id number] [place] [address]- 5366 Apr, [facility] [place] [facility] [address] [id number] [place] [address]- 3397 Apr, [facility] [place] [facility] [address] [id number] [place] [address]- 3295 Apr, [facility] [place] [facility] [address] [id number] [place] [address]- 3651 Apr, [facility] [place] [facility] [address] [id number] [place] [address]- 0412 Apr, [facility] [place] [facility] [address] [id number] [place] [address]- 5901 Apr, [facility] [place] [facility] [address] [id number] [place] [address]- 8523 Apr, [facility] [place] [facility] [address] [id number] [place] [address]- 2351 14 Apr, 2012 [facility] [place] [facility] [address] [id number] [place] [address]- 2088 Apr, [facility] [place] [facility] [address] [id number] [place] [address]- 0515 17 Mar, 2012 [facility] [place] [facility] [address] [id number] [place] [address]- 4027 Jan, [facility] [place] [facility] [address] [id number] [place] [address]- 4795 Dec, [facility] [place] [facility] [address] [id number] [place] [address]- 7690 October, [facility] [place] [facility] [address] [id number] [place] [address]- 4836 Oct, [facility] [place] [facility] [address] [id number] [place] [address]- 5611 Oct, [facility] [place] [facility] [address] [id number] [place] [address]- 0493 Oct, [facility] [place] [facility] [address] [id number] [place] [address]- 7287 Aug, [facility] [place] [facility] [address] [id number] [place] [address]- 1828 Aug, [facility] [place] [facility] [address] [id number] [place] [address]- 0832 Aug, [facility] [place] [facility] [address] [id number] [place] [address]- 6718 Aug, [facility] [place] [facility] [address] [id number] [place] [address]- 7800 Aug, [facility] [place] [facility] [address] [id number] [place] [address]- 9326 Aug, [facility] [place] [facility] [address] [id number] [place] [address]- 8318 Jun, [facility] [place] [facility] [address] [id number] [place] [address]- 3879 Apr, [facility] [place] [facility] [address] [id number] [place] [address]- 7871 Jun, [facility] [place] [facility] [address] [id number] [place] [address] 2546 Jun, [facility] [place] [facility] [address] [facility] [id number] [place] [address]- 1140 03 May, 2010 [facility] [address] [facility] [id number], [place] [address]- 4908 May, [facility] [address] [facility] [id number] [place] [address]- 6775 Apr, [facility] [address] [facility] [id number], [place] [address]- 8308 13 Apr, 2009 IMMUNIZATIONS No Known Immunizations SOCIAL HISTORY Never Assessed REASON FOR VISIT Referral Request PLAN OF CARE VITAL SIGNS MEDICATIONS [...] History see above surgeries Hospitalization History Anaphylactic shock-[facility] 08/23/16
--- OUTSIDE RECORDS SUMMARY | 2018-07-18 07:14 | XMS REPORT ---
Author Author BRANDY SAGAR [facility] Address [address] [place] [address] Care Team Providers Care Supervisor Vacuum [employer] Name Role Phone BRANDYTEZ HOYTHANY Unavailable PROBLEMS Type Condition ICD9-CM Code SXW05-HK Code Onset Dates Condition Status SNOMED Code Problem Migraine with aura and without status migrainosus, not intractable G43.109 Active 0478368 Problem PCOS (polycystic ovarian syndrome) E28.2 Active 32245843 Problem Uncomplicated severe persistent asthma J45.50 Active 676890765 Problem Severe persistent asthma with exacerbation J45.51 Active 255144669 Problem Other elevated white blood cell (WBC) count D72.828 Active 106943979 Problem Multiple food allergies Z91.018 Active 582444774 Problem Pure hypercholesterolemia E78.00 Active 702306897 Problem Current chronic use of inhaled steroid Z79.51 Active 277395005 Problem Asthma exacerbation J45.901 Active 642007635 Problem ADD (attention deficit disorder) F90.0 Active 575070725 Problem Allergic rhinitis due to pollen J30.1 Active 00984510 Problem Vitamin D deficiency E55.9 Active 96625403 Problem Major depressive disorder, recurrent episode, mild F33.0 Active 026305269 Problem Acquired hypothyroidism E03.9 Active 284076803 Problem Gastroesophageal reflux disease without esophagitis K21.9 Active 740684381 ALLERGIES No Information ENCOUNTERS Encounter Location Date Diagnosis [facility] [id number] [address] Mar, Severe persistent asthma with exacerbation J45.51 and Haemophilus infection A49.2 [facility] [id number] [address] Mar, [facility] [id number] [address] Mar, Multiple food allergies Z91.018 [facility] [facility] [id number] [place] [address] 41841- 3197 Jan, Allergic rhinitis due to pollen J30.1 [facility] [facility] [id number] [place] [address] 57288- 5849 Jan, [facility] [facility] [address] [place] [address] 48647- 8066 Jan, Allergic reaction, initial encounter T78.40XA [facility] [address] [address]- 0941 Dec, Allergic rhinitis due to pollen J30.1 [facility] [address] [place] [address] 76004- 6176 Dec, [facility] [facility] [address] [place] [address] 60887- 3509 Dec, Allergic rhinitis due to pollen J30.1 [facility] [facility] [address] [place] [address] 41566- 6495 Dec, ADD (attention deficit disorder) F90.0 [facility] [address] 14519- 2658 Dec, ADD (attention deficit disorder) F90.0 and Uncomplicated severe persistent asthma J45.50 [facility] [address] [place] [address] 69277- 3128 Dec, Allergic rhinitis due to pollen J30.1 [place] [address] [place] [address] 52174- 5656 Dec, [facility] [address] [place] [address] 96518- 3446 October, Allergic rhinitis due to pollen J30.1 [facility] [facility] [address] [place] [address] 87498- 7927 October, Allergic rhinitis due to pollen J30.1 [facility] [address] [place] [address] 46564- 2987 Oct, [facility] [address] [place] [address] 56850- 0198 Oct, Allergic rhinitis due to pollen J30.1 [facility] [address] [place] [address] 70047- 9626 Oct, [facility] [facility] [address] [place] [address] 02015- 1196 Oct, Allergic rhinitis due to pollen J30.1 [facility] [address] [place] [address] 22911- 5288 Oct, Severe persistent asthma with exacerbation J45.51 and Pneumonia due to Haemophilus influenzae, unspecified laterality, unspecified part of lung J14 [facility] [address] [place] [address] 36871- 6062 Oct, ADD (attention deficit disorder) F90.0 [facility] [facility] [address] 47850- 8380 Aug, Haemophilus influenzae infection A49.2 [facility] [facility] [address] 38247- 3536 Aug, Cough productive of purulent sputum R05 [facility] [address] [place] [address] 08168- 3453 Aug, [facility] [facility] [address] [place] [address] 18048- 9604 Aug, Pulmonary congestion R09.89 [facility] [address] 16877- 1769 Aug, Severe persistent asthma with exacerbation J45.51 ; Hiatal hernia K44.9 and Gastroesophageal reflux disease without esophagitis K21.9 [facility] [address] [place] [address] 44102- 3488 Aug, Other elevated white blood cell (WBC) count D72.828 [facility] [facility] [address] 59962- 2240 Aug, Uncomplicated severe persistent asthma J45.50 [facility] [address] 43462- 6575 Aug, Pure hypercholesterolemia E78.00 ; Uncomplicated severe persistent asthma J45.50 and Acquired hypothyroidism E03.9 [facility] [address] 34577- 4432 Aug, Acquired hypothyroidism E03.9 ; Pure hypercholesterolemia E78.00 and Uncomplicated severe persistent asthma J45.50 [facility] [address] 230803- 4124 15 Aug, 2017 Allergic rhinitis due to pollen J30.1 [facility] [address] 91462- 8821 Aug, Allergic rhinitis due to pollen J30.1 [place] [address] 88033- 9938 Aug, [place] [address] [id number] Jul, Pharyngitis, unspecified etiology J02.9 and Lymphadenopathy R59.1 [facility] [address] 26194- 7602 Jul, ADD (attention deficit disorder) F90.[address] 68219- 8356 Jul, Allergic rhinitis due to pollen J30.1 [facility] [address] 20479- 8090 Jul, Dental examination Z01.20 [facility] [address] 76308- 0903 Jun, Cough productive of purulent sputum R05 [facility] [facility] [address] 86007- 1344 Jun, Allergic rhinitis due to pollen J30.1 [facility] [address] [place] [address] 00245- 1290 Jun, [facility] [address] 28835- 8434 Jun, Allergic rhinitis due to pollen J30.1 [facility] [facility] [address] [place] [address] 30675- 4740 Jun, Allergic rhinitis due to pollen J30.1 [facility] [address] 25689- 9582 May, Allergic rhinitis due to pollen J30.1 [facility] [address] 54483- 2235 May, Pneumonia due to Haemophilus influenzae, unspecified laterality, unspecified part of lung J14 [address] 62628- 9906 May, Allergic rhinitis due to pollen J30.1 [facility] [address] [place] [address] 80340- 0266 May, Other adverse food reactions, not elsewhere classified, initial encounter T78.1XXA and Pneumonia due to Haemophilus influenzae, unspecified laterality, unspecified part of lung J14 [facility] [address] [place] [address] 66419- 5964 13 May, 2017 Pneumonia due to Haemophilus influenzae, unspecified laterality, unspecified part of lung J14 [facility] [address] [place] [address] 23170- 5870 May, Multiple food allergies Z91.018 ; Uncomplicated severe persistent asthma J45.50 ; Cough productive of purulent sputum R05 and Uses central nervous system stimulants F15.90 [facility] [address] [place] [address] 10669- 7464 Apr, Allergic rhinitis due to pollen J30.1 [facility] [address] [place] [address] 24184- 0555 Apr, Allergic rhinitis due to pollen J30.1 [facility] [address] [place] [address] 76571- 5777 Apr, Allergic rhinitis due to pollen J30.1 [facility] [address] [place] [address] 43155- 5258 11 Apr, 2017 ADD (attention deficit disorder) F90.0 [facility] [address] 94102- 4451 28 Mar, 2017 Allergic rhinitis due to pollen J30.1 [facility] [address] [place] [address] 49293- 4920 21 Mar, 2017 Encounter for immunization Z23 [facility] [address] 31169- 8527 19 Mar, 2017 [place] [address] 81384- 7677 14 Mar, 2017 Allergic rhinitis due to pollen J30.1 [facility] [address] [place] [address] 17705- 5955 07 Mar, 2017 Allergic rhinitis due to pollen J30.1 [facility] [address] [place] [address] 32450- 6261 Jan, Allergic rhinitis due to pollen J30.1 [facility] [address] [place] [address] 58009- 5970 Jan, Allergic rhinitis due to pollen J30.1 [facility] [address] [place] [address] 39264- 4797 Dec, Uncomplicated severe persistent asthma J45.50 [facility] [facility] [address] 94618- 0182 Dec, Allergic rhinitis due to pollen J30.1 [facility] [address] 68559- 0913 Dec, Allergic rhinitis due to pollen J30.1 [place] [address] [place] [address]- 2810 Dec, Allergic rhinitis due to pollen J30.1 [facility] [address] [place] [address] 21647- 7923 Dec, ADD (attention deficit disorder) F90.0 [facility] [facility] [address] 64586- 6180 Dec, Allergic rhinitis due to pollen J30.1 [facility] [address] [place] [address] 42718- 8442 Dec, Visit for TB skin test Z11.1 and Screening for tuberculosis Z11.1 [facility] [address] 77321- 9778 Dec, Uncomplicated severe persistent asthma J45.50 ; Palpitations R00.2 ; Pericardial effusion (noninflammatory) I31.3 and Chest discomfort R07.89 [facility] [address] 38780- 7082 Dec, Allergic rhinitis due to pollen J30.1 [facility] [address] [place] [address] 64808- 7619 Dec, Chronic cough R05 [facility] [address] [place] [address] 79418- 2762 Dec, [place] [address] [place] [address] 95908- 9762 Dec, Allergic rhinitis due to pollen J30.1 [facility] [address] [place] [address] 32236- 2486 Dec, Allergic rhinitis due to pollen J30.1 [facility] [address] [place] [address] 26004- 6935 Dec, Chronic cough R05 [facility] [address] [place] [address] 76730- 1833 October, Allergic rhinitis due to pollen J30.1 [facility] [address] [place] [address] 27565- 4456 October, Allergic rhinitis due to pollen J30.1 [facility] [address] [place] [address] 25057- 8513 October, [place] [address] [place] [address] 67888- 8154 October, Asthma exacerbation J45.901 [facility] [address] [place] [address] 93766- 8764 October, Asthma exacerbation J45.901 and Current chronic use of inhaled steroid Z79.51 [facility] [facility] [address] 12082- 5833 October, Uncomplicated severe persistent asthma J45.50 [facility] [facility] [address] [place] [address] 20245- 9331 October, Allergic rhinitis due to pollen J30.1 [facility] [address] [place] [address] 95651- 4378 Oct, [facility] [address] [place] [address] 08564- 2987 Oct, Asthma exacerbation J45.901 and Sputum production R05 [facility] [address] [place] [address] 55817- 9757 Oct, Asthma exacerbation J45.901 [facility] [address] [place] [address] 13007- 4172 Oct, ADD (attention deficit disorder) F90.0 [facility] [address] [place] [address] 27230- 6792 Oct, ADD (attention deficit disorder) F90.0 [facility] [address] [place] [address] 21501- 4320 Aug, Allergic rhinitis due to pollen J30.1 [facility] [address] [place] [address] 65329- 9651 Aug, Atypical pneumonia J18.9 [facility] [address] 70886- 8203 Aug, Allergic rhinitis due to pollen J30.1 [facility] [address] 97641- 4181 Aug, Acquired hypothyroidism E03.9 [facility] [address] 86142- 6440 Aug, Multiple food allergies Z91.018 ; Elevated blood pressure reading R03.0 and Anaphylaxis, subsequent encounter T78.2XXD [place] [id number] Aug, [place] [address] 42618- 3764 Aug, Anaphylaxis, initial encounter T78.2XXA [facility] [address] 57944- 3706 Aug, Allergic rhinitis due to pollen J30.1 [facility] [address] 55632- 0694 Aug, Dental examination Z01.20 [facility] [address] 42591- 8049 Aug, Allergic rhinitis due to pollen J30.1 [facility] [address] 39054- 4336 Aug, Acquired hypothyroidism E03.9 and Pure hypercholesterolemia E78.00 [facility] [address] 37570- 8842 Aug, ADD (attention deficit disorder) F90.0 ; Acquired hypothyroidism E03.9 and Pure hypercholesterolemia E78.00 [facility] [address] 40079- 0536 Aug, Asthma exacerbation J45.901 [facility] [address] [address]- 8773 Jul, Allergic rhinitis due to pollen J30.1 [facility] [address] [place] [address] 99824- 1887 Jul, Allergic rhinitis due to pollen J30.1 [facility] [address] [address]- 6517 Jul, [facility] [address] [place] [address] 01428- 9351 Jul, Allergic rhinitis due to pollen J30.1 [facility] [address] [place] [address] 41835- 2061 Jul, Other detention (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 and ADD ( attention deficit disorder) F90.0 [place] [address] [place] [address] 42218- 5526 Jul, Other medical terminologist (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 and ADD ( attention deficit disorder) F90.0 [facility] [address] [place] [address] 94151- 4864 Jul, [facility] [address] [place] [address] 45648- 1372 Jun, Allergic rhinitis due to pollen J30.1 [facility] [address] [address]- 1918 Jun, Allergic rhinitis due to pollen J30.1 [facility] [address] [address]- 6701 Jun, [facility] [address] [place] [address] 88878- 1605 May, Allergic rhinitis due to pollen J30.1 [facility] [address] [address]- 8377 May, Allergic rhinitis due to pollen J30.1 [facility] [address] [place] [address] 80828- 2668 Apr, Allergic rhinitis due to pollen J30.1 [place] [address] 81881- 6805 Apr, Allergic rhinitis due to pollen J30.1 [place] [address] 68913- 9576 Apr, Encounter for immunization Z23 [place] [address] 16458- 1296 Apr, [place] [address] 34870- 0698 Mar, Allergic rhinitis due to pollen J30.1 [place] [address] 33559- 8749 Mar, Multiple allergies Z88.9 [place] [address] 40385- 9985 Mar, Candidal vaginitis B37.3 [place] [address] 68415- 7594 Mar, Allergic rhinitis due to pollen J30.1 [place] [address] [place] [address] 53546- 6386 Jan, Asthma exacerbation J45.901 ; Fatigue, unspecified type R53.83 and Community acquired pneumonia J18.9 [facility] [id number] [place] [address] [id number] Jan, Encounter for dental examination Z01.20 [place] [address] 40553- 8904 Jan, Allergic rhinitis due to pollen J30.1 [place] [address] [place] [address] 95799- 5930 Dec, Allergic rhinitis due to pollen J30.1 [place] [address] 27109- 8381 Dec, [facility] [address] [address]- 0719 Dec, Allergic rhinitis due to pollen J30.1 [facility] [address] [address]- 6538 Dec, [facility] [address] [place] [address] 23225- 7502 Dec, [facility] [address] [place] [address] 98489- 0304 Dec, [facility] [address] [place] [address] 14742- 7778 Dec, Allergic rhinitis due to pollen J30.1 [facility] [address] [place] [address] 06584- 1946 Dec, [facility] [address] [place] [address] 65854- 5434 Dec, [facility] [address] [place] [address] 28397- 0638 Dec, Allergic rhinitis due to pollen J30.1 [facility] [address] [address]- 9872 October, Allergic rhinitis due to pollen J30.1 [facility] [address] [address]- 0747 October, Allergic rhinitis due to pollen J30.1 [facility] [address] [address]- 8871 October, [facility] [address] [place] [address] 64833- 7457 October, [facility] [address] [address]- 1070 October, ADD (attention deficit disorder) F90.0 ; Major depressive disorder, recurrent episode, mild F33.0 and Uncomplicated severe persistent asthma J45.50 [facility] [address] [place] [address] 87621- 7594 Oct, Allergic rhinitis due to pollen J30.1 [facility] [address] [place] [address] 36211- 4407 Oct, ADD (attention deficit disorder) F90.0 [place] [address] 93196- 7716 Oct, Allergic rhinitis due to pollen 477.0 [place] [address] [place] [address] 65624- 9017 Aug, Allergic rhinitis due to pollen 477.0 [place] [address] [place] [address] 25524- 3526 Aug, 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 [place] [address] 69319- 6527 Aug, [place] [address] [place] [address] 69327- 6394 Aug, Allergic rhinitis due to pollen 477.0 [place] [address] [place] [address] 94005- 0082 Aug, Allergic rhinitis due to pollen 477.0 [place] [address] [place] [address] 85280- 1539 Aug, Allergic rhinitis due to pollen 477.0 [facility] [address] [place] [address] 28888- 8905 Aug, Exposure to influenza Z20.828 [facility] [address] [id number] Aug, Encounter for dental examination and cleaning without abnormal findings Z01.20 [facility] [address] [place] [address] 03589- 0349 18 Aug, 2015 Allergic rhinitis due to pollen J30.1 [place] [address] [place] [address] 20604- 7136 18 Aug, 2015 [place] [address] 98604- 0575 Aug, 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 [place] [address] [place] [address] 69064- 5426 Jul, [place] [address] 94325- 1385 Jul, Allergic rhinitis due to pollen 477.0 [place] [address] [place] [address] 25622- 7030 Jul, [place] [address] 96274- 7775 Jul, Allergic rhinitis due to pollen 477.0 [place] [address] 69483- 4102 Jun, ADD (attention deficit disorder) F90.0 ; Acquired hypothyroidism E03.9 ; PCOS (polycystic ovarian syndrome) E28.2 ; Polyarthralgia M25.50 and On stimulant medication Z79.899 [place] [address] [place] [address] 15047- 0202 Apr, Encounter for immunization Z23 [place] [address] [place] [address] 37648- 2884 16 Mar, 2015 Allergic rhinitis due to pollen 477.0 [place] [address] [place] [address] 71999- 9064 14 Mar, 2015 Influenza vaccine administered V04.81 [place] [address] 45887- 6387 03 Mar, 2015 [place] [address] [place] [address] 30578- 0718 Jan, Allergic rhinitis due to pollen 477.0 [place] [address] 50264- 9722 Jan, Allergic rhinitis due to pollen 477.0 [facility] [address] [facility] [id number] [address] Jan, Allergic rhinitis due to pollen 477.0 [facility] [id number] [id number] Jan, Dental examination V72.2 [facility] [address] [address]- 15[address] Dec, Allergic rhinitis due to pollen 477.0 [facility] [address] [id number] [address] October, [facility] [address] [id number] [address] Oct, [facility] [id number] [address] Oct, [facility] [id number] [address] Aug, [facility] [id number] [address] Aug, [facility] [id number] [address] Aug, [facility] [id number] [address] Aug, [facility] [address] [id number] [address] Aug, [facility] [address] [facility] [id number] [address] Aug, [facility] [address] [id number] Aug, [facility] [id number] Aug, [facility] [place] [facility] [address] [id number] [place] [address] Jul, [facility] [place] [facility] [address] [id number] [place] [address] Jul, [facility] [place] [facility] [address] [id number] [place] [address] Jul, [facility] [place] [facility] [address] [id number] [place] [address] Jul, [facility] [place] [facility] [address] [id number] [place] [address]- 4126 Jul, [facility] [place] [facility] [address] [id number] [place] [address] Jul, [facility] [place] [facility] [address] [id number] [place] [address] 7341 Jul, [facility] [place] [facility] [address] [id number] [place] [address] 69[address] Jul, [facility] [place] [facility] [address] [id number] [place] [address]114 Jul, [facility] [place] [facility] [address] [id number] [place] [address] 1290 Jul, [facility] [place] [facility] [address] [id number] [place] [address] 2041 Jul, [facility] [place] [facility] [address] [id number] [place] [address] 6021 Jun, [facility] [place] [facility] [address] [id number] [place] [address] 4830 Jun, [facility] [place] [facility] [address] [id number] [place] [address] 5861 Jun, [facility] [place] [facility] [address] [id number] [place] [address]- 7406 Jun, [facility] [place] [facility] [address] [id number] [place] [address] Jun, [facility] [place] [facility] [address] [id number] [place] [address] 8146 Jun, [facility] [place] [facility] [address] [id number] [place] [address]- 9469 May, [facility] [place] [facility] [address] [id number] [place] [address]- 7993 May, [facility] [place] [facility] [address] [id number] [place] [address]- 5822 May, [facility] [place] [facility] [address] [id number] [place] [address]- 9610 May, [facility] [place] [facility] [address] [id number] [place] [address]- 0922 May, [facility] [place] [facility] [address] [id number] [place] [address]- 0518 May, [facility] [place] [facility] [address] [id number] [place] [address]- 7541 Apr, [facility] [place] [facility] [address] [id number] [place] [address]- 9308 Apr, [facility] [place] [facility] [address] [id number] [place] [address]- 2627 30 Mar, 2014 [facility] [place] [facility] [address] [id number] [address] 30 Mar, 2013 [facility] [place] [facility] [address] [id number] [address] 30 Mar, 2013 [facility] [place] [facility] [address] [id number] [place] [address]- 9680 30 Mar, 2014 [facility] [place] [facility] [address] [id number] [address] 19 Mar, 2014 [facility] [place] [facility] [address] [id number] [place] [address]- 6730 19 Mar, 2014 [facility] [place] [facility] [address] [id number] [place] [address]- 5683 Jan, [facility] [place] [facility] [address] [id number] [place] [address]- 6840 Jan, [facility] [place] [facility] [address] [id number] [place] [address]- 8630 Jan, [facility] [place] [facility] [address] [id number] [place] [address]- 0228 Jan, [facility] [place] [facility] [address] [id number] [place] [address]- 9601 Jan, [facility] [place] [facility] [address] [id number] [place] [address]- 3394 Jan, [facility] [place] [facility] [address] [id number] [place] [address]- 7157 Dec, [facility] [place] [facility] [address] [id number] [place] [address]- 6670 Dec, [facility] [place] [facility] [address] [id number] [place] [address]- 1887 Dec, [facility] [place] [facility] [address] [id number] [place] [address]- 3179 Dec, [facility] [place] [facility] [address] [id number] [place] [address]- 3109 Dec, [facility] [place] [facility] [address] [id number] [place] [address]- 7820 Dec, [facility] [place] [facility] [address] [id number] [place] [address]- 3290 Dec, [facility] [place] [facility] [address] [id number] [place] [address]- 5656 Dec, [facility] [place] [facility] [address] [id number] [place] [address]- 6652 Dec, [facility] [place] [facility] [address] [id number] [place] [address]- 1440 Dec, [facility] [place] [facility] [address] [id number] [place] [address]- 0295 Dec, [facility] [place] [facility] [address] [id number] [place] [address]- 6220 Dec, [facility] [place] [facility] [address] [id number] [place] [address]- 9248 Dec, [facility] [place] [facility] [address] [id number] [place] [address]- 0264 Dec, [facility] [place] [facility] [address] [id number] [place] [address]- 4113 Dec, [facility] [place] [facility] [address] [id number] [place] [address]- 5378 Dec, [facility] [place] [facility] [address] [id number] [place] [address]- 9931 October, [facility] [place] [facility] [address] [id number] [place] [address]- 8451 October, [facility] [place] [facility] [address] [id number] [place] [address]- 5213 October, [facility] [place] [facility] [address] [id number] [place] [address]- 4370 October, [facility] [place] [facility] [address] [id number] [place] [address]- 6653 October, [facility] [place] [facility] [address] [id number] [place] [address]- 4591 October, [facility] [place] [facility] [address] [id number] [place] [address]- 3890 Oct, [facility] [place] [facility] [address] [id number] [place] [address]- 5021 Oct, [facility] [place] [facility] [address] [id number] [place] [address]- 8389 Oct, [facility] [place] [facility] [address] [id number] [place] [address]- 2546 Oct, [facility] [place] [facility] [address] [id number] [place] [address]- 8057 Oct, [facility] [place] [facility] [address] [id number] [place] [address]- 1626 Oct, [facility] [place] [facility] [address] [id number] [place] [address]- 7395 Aug, [facility] [place] [facility] [address] [id number] [place] [address]- 9770 Aug, [facility] [place] [facility] [address] [id number] [place] [address]- 3362 Aug, [facility] [place] [facility] [address] [id number] [place] [address]- 5946 Aug, [facility] [place] [facility] [address] [id number] [place] [address]- 8497 Jul, [facility] [place] [facility] [address] [id number] [place] [address]- 8586 Jul, [facility] [place] [facility] [address] [id number] [place] [address]- 9946 Jul, [facility] [place] [facility] [address] [id number] [place] [address]- 5675 Jul, [facility] [place] [facility] [address] [id number] [place] [address]- 0328 Jun, [facility] [place] [facility] [address] [id number] [place] [address]- 4764 Jun, [facility] [place] [facility] [address] [id number] [place] [address]- 0310 24 Jun, 2013 [facility] [place] [facility] [address] [id number] [place] [address]- 0397 24 Jun, 2013 [facility] [place] [facility] [address] [id number] [place] [address]- 8508 20 Jun, 2013 [facility] [place] [facility] [address] [id number] [place] [address]- 1218 18 Jun, 2013 [facility] [address] [id number] [place] [address]- 2350 Jun, [facility] [place] [facility] [address] [id number] [place] [address]- 2542 Jun, [facility] [place] [facility] [address] [id number] [place] [address]- 2425 Jun, [facility] [place] [facility] [address] [id number] [place] [address]- 6226 Jun, [facility] [place] [facility] [address] [id number] [place] [address]- 8327 Jun, [facility] [place] [facility] [address] [id number] [place] [address]- 1980 May, [facility] [place] [facility] [address] [id number] [place] [address]- 3264 May, [facility] [place] [facility] [address] [id number] [place] [address]- 2005 May, [facility] [place] [facility] [address] [id number] [place] [address]- 0775 May, [facility] [place] [facility] [address] [id number] [place] [address]- 1930 May, [facility] [place] [facility] [address] [id number] [place] [address]- 3375 May, [facility] [place] [facility] [address] [id number] [place] [address]- 6208 May, [facility] [place] [facility] [address] [id number] [place] [address]- 0188 Apr, [facility] [place] [facility] [address] [id number] [place] [address]- 2546 Apr, [facility] [place] [facility] [address] [id number] [place] [address]- 6560 Apr, [facility] [place] [facility] [address] [id number] [place] [address]- 8711 Apr, [facility] [place] [facility] [address] [id number] [place] [address]- 3735 Mar, [facility] [place] [facility] [address] [id number] [place] [address]- 5828 Mar, [facility] [place] [facility] [address] [id number] [place] [address]- 3746 Mar, [facility] [place] [facility] [address] [id number] [place] [address]- 8372 Mar, [facility] [place] [facility] [address] [id number] [place] [address]- 3489 Mar, [facility] [place] [facility] [address] [id number] [place] [address]- 4402 Mar, [facility] [place] [facility] [address] [id number] [place] [address]- 9986 Jan, [facility] [place] [facility] [address] [id number] [place] [address]- 4376 Jan, [facility] [place] [facility] [address] [id number] [place] [address]- 7235 Jan, [facility] [place] [facility] [address] [id number] [place] [address]- 3609 Jan, [facility] [place] [facility] [address] [id number] [place] [address]- 4621 Jan, [facility] [place] [facility] [address] [id number] [place] [address]- 1552 Dec, [facility] [place] [facility] [address] [id number] [place] [address]- 0065 Dec, [facility] [place] [facility] [address] [id number] [place] [address]- 8704 Dec, [facility] [place] [facility] [address] [id number] [place] [address]- 8589 Dec, [facility] [address] [id number] [place] [address]- 8668 Dec, [facility] [address] [id number] [place] [address]- 1953 Dec, [facility] [address] [id number] [place] [address]- 0621 Dec, [facility] [place] [facility] [address] [id number] [place] [address]- 7646 Dec, [facility] [address] [id number] [place] [address]- 9266 October, [facility] [address] [id number] [place] [address]- 9628 October, [facility] [address] [id number] [place] [address]- 4299 October, [facility] [address] [id number] [place] [address]- 8470 Oct, [facility] [address] [id number] [place] [address]- 6611 Oct, [facility] [address] [id number] [place] [address]- 2656 Oct, [facility] [address] [id number] [place] [address]- 1253 Oct, [facility] [place] [facility] [address] [id number] [place] [address]- 0002 Aug, [facility] [place] [facility] [address] [id number] [place] [address]- 2927 07 Aug, 2012 [facility] [place] [facility] [address] [id number] [place] [address]- 8433 05 Aug, 2012 [facility] [address] [id number] [place] [address]- 3154 Jul, [facility] [place] [facility] [address] [id number] [place] [address]- 5518 May, [facility] [place] [facility] [address] [id number] [place] [address]- 2713 May, [facility] [place] [facility] [address] [id number] [place] [address]- 0413 Apr, [facility] [place] [facility] [address] [id number] [place] [address]- 6342 Apr, [facility] [place] [facility] [address] [id number] [place] [address]- 1663 Apr, [facility] [place] [facility] [address] [id number] [place] [address]- 2948 Apr, [facility] [place] [facility] [address] [id number] [place] [address]- 7451 Apr, [facility] [place] [facility] [address] [id number] [place] [address]- 7269 Apr, [facility] [place] [facility] [address] [id number] [place] [address]- 7216 Apr, [facility] [place] [facility] [address] [id number] [place] [address]- 4767 Apr, [facility] [place] [facility] [address] [id number] [place] [address]- 8587 Apr, [facility] [place] [facility] [address] [id number] [place] [address]- 7076 Apr, [facility] [place] [facility] [address] [id number] [place] [address]- 9114 14 Apr, 2012 [facility] [place] [facility] [address] [id number] [place] [address]- 8930 Apr, [facility] [place] [facility] [address] [id number] [place] [address]- 7853 17 Mar, 2012 [facility] [place] [facility] [address] [id number] [place] [address]- 2997 Jan, [facility] [place] [facility] [address] [id number] [place] [address]- 5641 Dec, [facility] [place] [facility] [address] [id number] [place] [address]- 4756 October, [facility] [place] [facility] [address] [id number] [place] [address]- 1916 Oct, [facility] [place] [facility] [address] [id number] [place] [address]- 3885 Oct, [facility] [place] [facility] [address] [id number] [place] [address]- 3795 Oct, [facility] [place] [facility] [address] [id number] [place] [address]- 9719 Aug, [facility] [place] [facility] [address] [id number] [place] [address]- 3898 Aug, [facility] [place] [facility] [address] [id number] [place] [address]- 6451 Aug, [facility] [place] [facility] [address] [id number] [place] [address]- 2452 Aug, [facility] [place] [facility] [address] [id number] [place] [address]- 8530 Aug, [facility] [place] [facility] [address] [id number] [place] [address]- 8123 Aug, [facility] [place] [facility] [address] [id number] [place] [address]- 2450 Jun, [facility] [place] [facility] [address] [id number] [place] [address]- 8607 Apr, [facility] [place] [facility] [address] [id number] [place] [address]- 1697 Jun, [facility] [place] [facility] [address] [id number] [place] [address] 2546 Jun, [facility] [place] [facility] [address] [facility] [address] [id number] [place] [address]75 03 May, 2010 [facility] [address] [facility] [address] [id number] [place] [address]- 7870 May, [facility] [address] [facility] [address] [id number] [place] [address]- 7419 15 Apr, 2009 [facility] [address] [facility] [address] [id number] [address] 13 Apr, 2009 IMMUNIZATIONS No Known Immunizations SOCIAL HISTORY Never Assessed REASON FOR VISIT Allergy injection(s) PLAN OF CARE VITAL SIGNS MEDICATIONS Unknown Medications RESULTS No Results PROCEDURES Procedure Date Ordered Result Body Site IMMUNOTHERAPY, 2 OR MORE INJECTIONS 2018-02-23 N/A IMMUNOTHERAPY INJECTIONS Feb 23, 2018 INSTRUCTIONS MEDICATIONS ADMINISTERED No Known Medications [...] History see above surgeries Hospitalization History Anaphylactic shock-[facility] 08/23/16
--- OUTSIDE RECORDS SUMMARY | 2018-07-18 07:15 | XMS REPORT ---
Author Author PRETTY TABOR [facility] Address [address] [place] [address] Care Team Providers Care Agent Name Role Phone PRETTY TABOR Unavailable PROBLEMS Type Condition ICD9-CM Code QWR53-VB Code Onset Dates Condition Status SNOMED Code Problem Migraine with aura and without status migrainosus, not intractable G43.109 Active 8435248 Problem PCOS (polycystic ovarian syndrome) E28.2 Active 64019445 Problem Uncomplicated severe persistent asthma J45.50 Active 934420835 Problem Severe persistent asthma with exacerbation J45.51 Active 030859274 Problem Other elevated white blood cell (WBC) count D72.828 Active 855847420 Problem Multiple food allergies Z91.018 Active 145809261 Problem Pure hypercholesterolemia E78.00 Active 644489488 Problem Current chronic use of inhaled steroid Z79.51 Active 634003391 Problem Asthma exacerbation J45.901 Active 862099503 Problem ADD (attention deficit disorder) F90.0 Active 428620165 Problem Allergic rhinitis due to pollen J30.1 Active 16207905 Problem Vitamin D deficiency E55.9 Active 63264643 Problem Major depressive disorder, recurrent episode, mild F33.0 Active 874053118 Problem Acquired hypothyroidism E03.9 Active 202428909 Problem Gastroesophageal reflux disease without esophagitis K21.9 Active 806710319 ALLERGIES No Information ENCOUNTERS Encounter Location Date Diagnosis [facility] [id number] [address] Mar, Severe persistent asthma with exacerbation J45.51 and Haemophilus infection A49.2 [facility] [id number] [address] Mar, [facility] [id number] [address] 1997 Mar, Multiple food allergies Z91.018 [facility] [id number] [place] [address] 19997- 8668 Jan, Allergic rhinitis due to pollen J30.1 [facility] [id number] [place] [address] 09847- 4825 Jan, [facility] [id number] [place] [address] 59250- 4099 Jan, Allergic reaction, initial encounter T78.40XA [facility] [id number] [place] [address] 38172- 6684 Dec, Allergic rhinitis due to pollen J30.1 [place] [id number] [place] [address] 45813- 5577 Dec, [place] [id number] [place] [address] 62728- 1926 Dec, Allergic rhinitis due to pollen J30.1 [place] [id number] [place] [address] 91136- 5085 Dec, ADD (attention deficit disorder) F90.0 [place] [id number] [place] [address] 32715- 6312 Dec, ADD (attention deficit disorder) F90.0 and Uncomplicated severe persistent asthma J45.50 [place] [id number] [place] [address] 21140- 6498 Dec, Allergic rhinitis due to pollen J30.1 [facility] [address] [place] [address] 48445- 7262 Dec, [facility] [id number] [place] [address] 78968- 8851 October, Allergic rhinitis due to pollen J30.1 [facility] [address] [place] [address] 75936- 2251 October, Allergic rhinitis due to pollen J30.1 [facility] [id number] [place] [address] 47684- 1410 Oct, [place] [id number] [place] [address] 43750- 9258 Oct, Allergic rhinitis due to pollen J30.1 [place] [id number] [place] [address] 18882- 6209 Oct, [place] [id number] [place] [address] 40208- 7052 Oct, Allergic rhinitis due to pollen J30.1 [place] [address] 00814- 0971 Oct, Severe persistent asthma with exacerbation J45.51 and Pneumonia due to Haemophilus influenzae, unspecified laterality, unspecified part of lung J14 [place] [id number] [place] [address] 30544- 6643 Oct, ADD (attention deficit disorder) F90.0 [place] [address] 67036- 9138 Aug, Haemophilus influenzae infection A49.2 [place] [address] 21888- 3229 Aug, Cough productive of purulent sputum R05 [place] [id number] [place] [address] 79792- 9032 Aug, [place] [id number] [place] [address] 61326- 1165 Aug, Pulmonary congestion R09.89 [address] [address] 42620- 0347 Aug, Severe persistent asthma with exacerbation J45.51 ; Hiatal hernia K44.9 and Gastroesophageal reflux disease without esophagitis K21.9 [place] [id number] [place] [address] 88923- 1950 Aug, Other elevated white blood cell (WBC) count D72.828 [address] [address] 50064- 8179 Aug, Uncomplicated severe persistent asthma J45.50 [place] [address] 99764- 5485 Aug, Pure hypercholesterolemia E78.00 ; Uncomplicated severe persistent asthma J45.50 and Acquired hypothyroidism E03.9 [place] [address] 05799- 1110 Aug, Acquired hypothyroidism E03.9 ; Pure hypercholesterolemia E78.00 and Uncomplicated severe persistent asthma J45.50 [address] [address] 65892- 1605 15 Aug, 2017 Allergic rhinitis due to pollen J30.1 [place] [address] 67168- 3615 Aug, Allergic rhinitis due to pollen J30.1 [address] [address] 25234- 6067 Aug, [address] [address] [id number] Jul, Pharyngitis, unspecified etiology J02.9 and Lymphadenopathy R59.1 [place] [address] 21712- 6434 Jul, ADD (attention deficit disorder) F90.[address] 58150- 3835 Jul, Allergic rhinitis due to pollen J30.1 [address] [address] 35176- 2299 Jul, Dental examination Z01.20 [address] [address] 26336- 0308 Jun, Cough productive of purulent sputum R05 [address] [address] 27221- 2006 Jun, Allergic rhinitis due to pollen J30.1 [place] [id number] [place] [address] 40514- 4216 Jun, [place] [address] 46712- 1951 Jun, Allergic rhinitis due to pollen J30.1 [place] [id number] [place] [address] 93583- 8562 Jun, Allergic rhinitis due to pollen J30.1 [place] [id number] [place] [address] 96800- 2636 May, Allergic rhinitis due to pollen J30.1 [address] [address] 77067- 7019 May, Pneumonia due to Haemophilus influenzae, unspecified laterality, unspecified part of lung J14 [place] [id number] [place] [address] 35043- 7509 May, Allergic rhinitis due to pollen J30.1 [place] [id number] [place] [address] 53124- 8293 May, Other adverse food reactions, not elsewhere classified, initial encounter T78.1XXA and Pneumonia due to Haemophilus influenzae, unspecified laterality, unspecified part of lung J14 [place] [id number] [place] [address] 18663- 9248 May, Pneumonia due to Haemophilus influenzae, unspecified laterality, unspecified part of lung J14 [place] [id number] [place] [address] 74103- 1008 May, Multiple food allergies Z91.018 ; Uncomplicated severe persistent asthma J45.50 ; Cough productive of purulent sputum R05 and Uses central nervous system stimulants F15.90 [place] [id number] [place] [address] 92872- 7923 Apr, Allergic rhinitis due to pollen J30.1 [place] [id number] [place] [address] 85649- 4287 Apr, Allergic rhinitis due to pollen J30.1 [facility] [id number] [place] [address] 59342- 8276 13 Apr, 2017 Allergic rhinitis due to pollen J30.1 [facility] [id number] [place] [address] 80697- 9890 11 Apr, 2017 ADD (attention deficit disorder) F90.0 [address] [address] 88460- 4326 28 Mar, 2017 Allergic rhinitis due to pollen J30.1 [place] [id number] [place] [address] 35886- 2307 21 Mar, 2017 Encounter for immunization Z23 [place] [address] 40092- 7451 19 Mar, 2017 [place] [address] 88415- 9438 14 Mar, 2017 Allergic rhinitis due to pollen J30.1 [place] [id number] [place] [address] 44428- 4884 07 Mar, 2017 Allergic rhinitis due to pollen J30.1 [place] [id number] [place] [address] 93422- 4179 Jan, Allergic rhinitis due to pollen J30.1 [place] [id number] [place] [address] 65405- 7497 Jan, Allergic rhinitis due to pollen J30.1 [place] [id number] [place] [address] 59140- 2176 Dec, Uncomplicated severe persistent asthma J45.50 [address] [address] 13980- 1641 Dec, Allergic rhinitis due to pollen J30.1 [place] [id number] [place] [address] 77135- 4330 Dec, Allergic rhinitis due to pollen J30.1 [place] [address] [place] [address]- 8391 Dec, Allergic rhinitis due to pollen J30.1 [address] 69774- 7152 Dec, ADD (attention deficit disorder) F90.0 [address] [address] 28345- 1710 Dec, Allergic rhinitis due to pollen J30.1 [address] [address] 89427- 6919 Dec, Visit for TB skin test Z11.1 and Screening for tuberculosis Z11.1 [address] [address] 88341- 7572 Dec, Uncomplicated severe persistent asthma J45.50 ; Palpitations R00.2 ; Pericardial effusion (noninflammatory) I31.3 and Chest discomfort R07.89 [address] [address] 49292- 3729 Dec, Allergic rhinitis due to pollen J30.1 [place] [id number] [place] [address] 32264- 1577 Dec, Chronic cough R05 [place] [id number] [place] [address] 72881- 2411 Dec, [place] [id number] [place] [address] 24640- 5264 Dec, Allergic rhinitis due to pollen J30.1 [place] [id number] [place] [address] 61255- 3095 Dec, Allergic rhinitis due to pollen J30.1 [place] [id number] [place] [address] 35575- 6569 Dec, Chronic cough R05 [address] [id number] [place] [address] 36677- 6973 October, Allergic rhinitis due to pollen J30.1 [place] [id number] [place] [address] 13736- 2057 October, Allergic rhinitis due to pollen J30.1 [facility] [id number] [place] [address] 42438- 5433 October, [address] [id number] [place] [address] 74064- 7369 October, Asthma exacerbation J45.901 [place] [id number] [place] [address] 22644- 4133 October, Asthma exacerbation J45.901 and Current chronic use of inhaled steroid Z79.51 [address] [address] 41376- 8356 October, Uncomplicated severe persistent asthma J45.50 [place] [id number] [place] [address] 63153- 2173 October, Allergic rhinitis due to pollen J30.1 [place] [id number] [place] [address] 94657- 6331 Oct, [place] [id number] [place] [address] 82652- 6333 Oct, Asthma exacerbation J45.901 and Sputum production R05 [place] [id number] [place] [address] 33046- 3410 Oct, Asthma exacerbation J45.901 [place] [id number] [place] [address] 06021- 5414 Oct, ADD (attention deficit disorder) F90.0 [place] [id number] [place] [address] 64731- 5274 Oct, ADD (attention deficit disorder) F90.0 [place] [id number] [place] [address] 74600- 3756 Aug, Allergic rhinitis due to pollen J30.1 [place] [id number] [place] [address] 55736- 6738 Aug, Atypical pneumonia J18.9 [address] [address] 13781- 4730 Aug, Allergic rhinitis due to pollen J30.1 [address] [address] 79112- 1847 Aug, Acquired hypothyroidism E03.9 [address] [address] 47684- 5137 Aug, Multiple food allergies Z91.018 ; Elevated blood pressure reading R03.0 and Anaphylaxis, subsequent encounter T78.2XXD [place] [address] [id number] Aug, [address] 70468- 4304 Aug, Anaphylaxis, initial encounter T78.2XXA [address] [address] 84021- 3314 Aug, Allergic rhinitis due to pollen J30.1 [address] [address] 47284- 8049 Aug, Dental examination Z01.20 [address] [address] 18848- 7321 Aug, Allergic rhinitis due to pollen J30.1 [address] [address] 75034- 3983 Aug, Acquired hypothyroidism E03.9 and Pure hypercholesterolemia E78.00 [address] [address] 84038- 0734 Aug, ADD (attention deficit disorder) F90.0 ; Acquired hypothyroidism E03.9 and Pure hypercholesterolemia E78.00 [address] [address] 36487- 5195 Aug, Asthma exacerbation J45.901 [place] [address] [address]- 1213 Jul, Allergic rhinitis due to pollen J30.1 [facility] [id number] [place] [address] 64135- 0452 Jul, Allergic rhinitis due to pollen J30.1 [facility] [address] [address]- 9045 Jul, [facility] [id number] [place] [address] 04608- 0953 Jul, Allergic rhinitis due to pollen J30.1 [place] [address] [place] [address] 97350- 5783 Jul, Other half-way (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 and ADD ( attention deficit disorder) F90.0 [place] [id number] [place] [address] 04338- 2453 Jul, Other half-way (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 and ADD ( attention deficit disorder) F90.0 [facility] [address] [place] [address] 55708- 6902 Jul, [facility] [id number] [place] [address] 55734- 3047 Jun, Allergic rhinitis due to pollen J30.1 [facility] [address] [address]- 9884 Jun, Allergic rhinitis due to pollen J30.1 [facility] [address] [address]- 8452 Jun, [facility] [id number] [place] [address] 17318- 9433 May, Allergic rhinitis due to pollen J30.1 [facility] [address] [address]- 8651 May, Allergic rhinitis due to pollen J30.1 [facility] [id number] [place] [address] 00911- 1981 Apr, Allergic rhinitis due to pollen J30.1 [facility] [id number] [place] [address] 56030- 8515 Apr, Allergic rhinitis due to pollen J30.1 [facility] [id number] [place] [address] 47796- 3983 Apr, Encounter for immunization Z23 [facility] [address] 07450- 6029 Apr, [facility] [id number] [place] [address] 39536- 5139 Mar, Allergic rhinitis due to pollen J30.1 [place] [id number] [place] [address] 50533- 3352 Mar, Multiple allergies Z88.9 [place] [address] 80302- 4171 Mar, Candidal vaginitis B37.3 [place] [id number] [place] [address] 37052- 3150 Mar, Allergic rhinitis due to pollen J30.1 [place] [id number] [place] [address] 59706- 9611 Jan, Asthma exacerbation J45.901 ; Fatigue, unspecified type R53.83 and Community acquired pneumonia J18.9 [facility] [id number] [place] [address] [id number] Jan, Encounter for dental examination Z01.20 [facility] [id number] [place] [address] 07467- 8984 Jan, Allergic rhinitis due to pollen J30.1 [facility] [id number] [place] [address] 22139- 7150 Dec, Allergic rhinitis due to pollen J30.1 [facility] [id number] [place] [address] 90061- 1206 Dec, [facility] [address] [address]- 1867 Dec, Allergic rhinitis due to pollen J30.1 [facility] [address] [address]- 6485 Dec, [facility] [address] [address]- 4098 Dec, [facility] [address] [address]- 3942 Dec, [facility] [id number] [place] [address] 43162- 2512 Dec, Allergic rhinitis due to pollen J30.1 [facility] [address] [address]- 9038 Dec, [facility] [address] [place] [address] 01376- 7142 Dec, [facility] [address] [address]- 3188 Dec, Allergic rhinitis due to pollen J30.1 [facility] [address] [address]- 2355 October, Allergic rhinitis due to pollen J30.1 [facility] [address] [address]- 1613 October, Allergic rhinitis due to pollen J30.1 [facility] [address] [address]- 7311 October, [facility] [address] [place] [address] 67499- 0737 October, [facility] [address] [address]- 6122 October, ADD (attention deficit disorder) F90.0 ; Major depressive disorder, recurrent episode, mild F33.0 and Uncomplicated severe persistent asthma J45.50 [facility] [id number] [place] [address] 21612- 5994 Oct, Allergic rhinitis due to pollen J30.1 [facility] [id number] [place] [address] 65198- 6217 Oct, ADD (attention deficit disorder) F90.0 [place] [address] 82427- 5499 Oct, Allergic rhinitis due to pollen 477.0 [place] [id number] [place] [address] 20094- 3785 Aug, Allergic rhinitis due to pollen 477.0 [place] [address] 37676- 8721 Aug, 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 [place] [address] 48992- 2426 Aug, [place] [address] 35428- 5160 Aug, Allergic rhinitis due to pollen 477.0 [place] [id number] [place] [address] 30336- 2997 Aug, Allergic rhinitis due to pollen 477.0 [place] [id number] [place] [address] 39815- 1829 Aug, Allergic rhinitis due to pollen 477.0 [facility] [id number] [place] [address] 94443- 9334 Aug, Exposure to influenza Z20.828 [facility] [id number] [place] [address] [id number] Aug, Encounter for dental examination and cleaning without abnormal findings Z01.20 [facility] [id number] [place] [address] 82390- 0934 18 Aug, 2015 Allergic rhinitis due to pollen J30.1 [place] [id number] [place] [address] 01896- 2960 18 Aug, 2015 [place] [id number] [place] [address] 67392- 4300 Aug, 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 [facility] [id number] [place] [address] 59080- 7519 Jul, [place] [address] 30000- 2899 Jul, Allergic rhinitis due to pollen 477.0 [place] [id number] [place] [address] 53638- 2256 Jul, [place] [address] 95311- 0364 Jul, Allergic rhinitis due to pollen 477.0 [place] [address] 46047- 8705 Jun, ADD (attention deficit disorder) F90.0 ; Acquired hypothyroidism E03.9 ; PCOS (polycystic ovarian syndrome) E28.2 ; Polyarthralgia M25.50 and On stimulant medication Z79.899 [place] [id number] [place] [address] 87628- 3762 Apr, Encounter for immunization Z23 [place] [id number] [place] [address] 64160- 2621 16 Mar, 2015 Allergic rhinitis due to pollen 477.0 [place] [id number] [place] [address] 95259- 9999 14 Mar, 2015 Influenza vaccine administered V04.81 [place] [address] 57463- 0839 03 Mar, 2015 [place] [id number] [place] [address] 90282- 7615 Jan, Allergic rhinitis due to pollen 477.0 [place] [address] 99373- 6556 Jan, Allergic rhinitis due to pollen 477.0 [facility] [address] [facility] [id number] 0209 Jan, Allergic rhinitis due to pollen 477.0 [facility] [id number] [id number] Jan, Dental examination V72.2 [facility] [address] [id number] [address] Dec, Allergic rhinitis due to pollen 477.0 [facility] [address] [facility] [id number] [place] [address] October, [facility] [address] [id number] [address] Oct, [facility] [address]00565[address] [address] Oct, [facility] [address] [id number] [address] Aug, [facility] [address] [id number] [address] Aug, [facility] [address] [id number] [address] Aug, [facility] [id number] [address] Aug, [facility] [address] [id number] [id number] Aug, [facility] [address] [facility] [id number] [place] [address] Aug, [facility] [address] [id number] [address] Aug, [facility] [address] [id number] [address] Aug, [facility] [place] [facility] [address] [facility] [id number] [place] [address] Jul, [facility] [address] [id number] [place] [address] Jul, [facility] [place] [facility] [address] [id number] [place] [address] Jul, [facility] [place] [facility] [address] [id number] [place] [address] Jul, [facility] [place] [facility] [address] [id number] [place] [address] Jul, [facility] [place] [facility] [address] [id number] [place] [address] Jul, [facility] [place] [facility] [address] [id number] [place] [address] Jul, [facility] [place] [facility] [address] [id number] [place] [address] 1874 Jul, [facility] [place] [facility] [address] [id number] [place] [address] 9[address] Jul, [facility] [place] [facility] [address] [id number] [place] [address] 74[address] Jul, [facility] [place] [facility] [address] [id number] [place] [address]- 269[address] Jul, [facility] [place] [facility] [address] [id number] [place] [address]- 3270 Jun, [facility] [place] [facility] [address] [id number] [place] [address] 0[address] Jun, [facility] [place] [facility] [address] [id number] [place] [address]- 56[address] Jun, [facility] [place] [facility] [address] [id number] [place] [address]- 2656 Jun, [facility] [place] [facility] [address] [id number] [place] [address]- 5[address] Jun, [facility] [place] [facility] [address] [id number] [place] [address]- 4977 Jun, [facility] [place] [facility] [address] [id number] [place] [address]- 8878 May, [facility] [place] [facility] [address] [id number] [place] [address]- 8656 May, [facility] [place] [facility] [address] [id number] [place] [address]- 0633 May, [facility] [place] [facility] [address] [id number] [place] [address]- 8531 May, [facility] [place] [facility] [address] [id number] [place] [address]- 0657 May, [facility] [place] [facility] [address] [id number] [place] [address]- 1428 May, [facility] [place] [facility] [address] [id number] [place] [address]- 9336 Apr, [facility] [place] [facility] [address] [id number] [place] [address]- 0180 Apr, [facility] [place] [facility] [address] [id number] [place] [address] 30 Mar, 2014 [facility] [place] [facility] [address] [id number] [place] [address]- 3945 30 Mar, 2014 [facility] [place] [facility] [address] [id number] [place] [address] 30 Mar, 2013 [facility] [place] [facility] [address] [id number] [place] [address]- 2333 30 Mar, 2014 [facility] [place] [facility] [address] [id number] [place] [address]- 6491 19 Mar, 2014 [facility] [place] [facility] [address] [id number] [place] [address]- 6013 Mar, [facility] [place] [facility] [address] [id number] [place] [address]- 7410 Jan, [facility] [place] [facility] [address] [id number] [place] [address]- 4429 Jan, [facility] [place] [facility] [address] [id number] [place] [address]- 9760 Jan, [facility] [place] [facility] [address] [id number] [place] [address]- 8944 Jan, [facility] [place] [facility] [address] [id number] [place] [address]- 1681 Jan, [facility] [place] [facility] [address] [id number] [place] [address]- 9373 Jan, [facility] [place] [facility] [address] [id number] [place] [address]- 8822 Dec, [facility] [place] [facility] [address] [id number] [place] [address]- 6705 Dec, [facility] [place] [facility] [address] [id number] [place] [address]- 1193 Dec, [facility] [place] [facility] [address] [id number] [place] [address]- 0088 Dec, [facility] [place] [facility] [address] [id number] [place] [address]- 0678 Dec, [facility] [place] [facility] [address] [id number] [place] [address]- 1554 Dec, [facility] [place] [facility] [address] [id number] [place] [address]- 7184 Dec, [facility] [place] [facility] [address] [id number] [place] [address]- 0913 Dec, [facility] [place] [facility] [address] [id number] [place] [address]- 7905 Dec, [facility] [place] [facility] [address] [id number] [place] [address]- 8454 Dec, [facility] [place] [facility] [address] [id number] [place] [address]- 7370 Dec, [facility] [place] [facility] [address] [id number] [place] [address]- 8214 Dec, [facility] [place] [facility] [address] [id number] [place] [address]- 0472 Dec, [facility] [place] [facility] [address] [id number] [place] [address]- 7736 Dec, [facility] [place] [facility] [address] [id number] [place] [address]- 0570 Dec, [facility] [place] [facility] [address] [id number] [place] [address]- 0082 Dec, [facility] [place] [facility] [address] [id number] [place] [address]- 2855 October, [facility] [place] [facility] [address] [id number] [place] [address]- 5390 October, [facility] [place] [facility] [address] [id number] [place] [address]- 4451 October, [facility] [place] [facility] [address] [id number] [place] [address]- 1211 October, [facility] [place] [facility] [address] [id number] [place] [address]- 5306 October, [facility] [place] [facility] [address] [id number] [place] [address]- 2997 October, [facility] [place] [facility] [address] [id number] [place] [address]- 6042 Oct, [facility] [place] [facility] [address] [id number] [place] [address]- 2097 Oct, [facility] [place] [facility] [address] [id number] [place] [address]- 5536 Oct, [facility] [place] [facility] [address] [id number] [place] [address]- 3911 Oct, [facility] [place] [facility] [address] [id number] [place] [address]- 0167 Oct, [facility] [place] [facility] [address] [id number] [place] [address] Oct, [facility] [place] [facility] [address] [id number] [place] [address]- 9586 Aug, [facility] [place] [facility] [address] [id number] [place] [address]- 6519 Aug, [facility] [place] [facility] [address] [id number] [place] [address]- 8169 Aug, [facility] [place] [facility] [address] [id number] [place] [address]- 3246 Aug, [facility] [place] [facility] [address] [id number] [place] [address]- 7593 Jul, [facility] [place] [facility] [address] [id number] [place] [address]- 1038 Jul, [facility] [place] [facility] [address] [id number] [place] [address]- 2813 Jul, [facility] [place] [facility] [address] [id number] [place] [address]- 6596 Jul, [facility] [place] [facility] [address] [id number] [place] [address]- 2370 Jun, [facility] [place] [facility] [address] [id number] [place] [address]- 3465 31 Jun, 2013 [facility] [place] [facility] [address] [id number] [place] [address]- 7052 Jun, [facility] [place] [facility] [address] [id number] [place] [address]- 4306 Jun, [facility] [place] [facility] [address] [id number] [place] [address]- 0046 Jun, [facility] [place] [facility] [address] [id number] [place] [address]- 7498 18 Jun, 2013 [facility] [address] [id number] [place] [address]- 8179 Jun, [facility] [place] [facility] [address] [id number] [place] [address]- 3587 Jun, [facility] [address] [id number] [place] [address]- 8748 Jun, [facility] [address] [id number] [place] [address]- 2262 Jun, [facility] [address] [id number] [place] [address]- 1408 Jun, [facility] [address] [id number] [place] [address]- 6757 May, [facility] [address] [id number] [place] [address]- 3851 May, [facility] [address] [id number] [place] [address]- 1143 May, [facility] [address] [id number] [place] [address]- 1934 May, [facility] [address] [facility] [id number] [place] [address]- 1216 May, [facility] [place] [facility] [address] [id number] [place] [address]- 6261 May, [facility] [address] [id number] [place] [address]- 7769 May, [facility] [place] [facility] [address] [id number] [place] [address]- 7691 Apr, [facility] [place] [facility] [address] [id number] [place] [address]- 2546 Apr, [facility] [place] [facility] [address] [id number] [place] [address]- 5760 Apr, [facility] [place] [facility] [address] [id number] [place] [address]- 5009 Apr, [facility] [place] [facility] [address] [id number] [place] [address]- 9725 27 Mar, 2013 [facility] [place] [facility] [address] [id number] [place] [address]- 3593 Mar, [facility] [place] [facility] [address] [id number] [place] [address]- 5021 Mar, [facility] [place] [facility] [address] [id number] [place] [address]- 4360 Mar, [facility] [place] [facility] [address] [id number] [place] [address]- 7147 Mar, [facility] [place] [facility] [address] [id number] [place] [address]- 4053 Mar, [facility] [place] [facility] [address] [id number] [place] [address]- 4922 Jan, [facility] [place] [facility] [address] [id number] [place] [address]- 6865 Jan, [facility] [place] [facility] [address] [id number] [place] [address]- 7203 Jan, [facility] [place] [facility] [address] [id number] [place] [address]- 6527 Jan, [facility] [place] [facility] [address] [id number] [place] [address]- 2445 Jan, [facility] [place] [facility] [address] [id number] [place] [address]- 5678 Dec, [facility] [place] [facility] [address] [id number] [place] [address]- 7084 Dec, [facility] [place] [facility] [address] [id number] [place] [address]- 5661 Dec, [facility] [place] [facility] [address] [id number] [place] [address]- 9192 Dec, [facility] [address] [id number] [place] [address]- 3659 Dec, [facility] [address] [id number] [place] [address]- 6006 Dec, [facility] [address] [facility] [id number] [place] [address]- 9759 Dec, [facility] [address] [id number] [place] [address]- 9117 Dec, [facility] [address] [id number] [place] [address]- 6218 October, [facility] [address] [id number] [place] [address]- 2238 October, [facility] [address] [id number] [place] [address]- 1907 October, [facility] [address] [id number] [place] [address]- 7236 Oct, [facility] [address] [id number] [place] [address]- 3628 Oct, [facility] [address] [facility] [id number] [place] [address]- 4214 Oct, [facility] [address] [id number] [place] [address]- 6480 Oct, [facility] [address] [id number] [place] [address]- 5449 Aug, [facility] [place] [facility] [address] [id number] [place] [address]- 0291 07 Aug, 2012 [facility] [place] [facility] [address] [facility] [id number] [place] [address]- 8041 05 Aug, 2012 [facility] [address] [facility] [id number] [place] [address]- 3680 Jul, [facility] [place] [facility] [address] [id number] [place] [address]- 3027 May, [facility] [place] [facility] [address] [id number] [place] [address]- 7089 May, [facility] [place] [facility] [address] [id number] [place] 2362 Apr, [facility] [place] [facility] [address] [id number] [place] [address]- 8577 Apr, [facility] [place] [facility] [address] [id number] [place] [address]- 8282 Apr, [facility] [place] [facility] [address] [id number] [place] [address]- 0266 Apr, [facility] [place] [facility] [address] [id number] [place] [address]- 2090 Apr, [facility] [place] [facility] [address] [id number] [place] [address]- 3318 Apr, [facility] [place] [facility] [address] [id number] [place] [address]- 1658 Apr, [facility] [place] [facility] [address] [id number] [place] [address]- 0223 Apr, [facility] [place] [facility] [address] [id number] [place] [address]- 8758 Apr, [facility] [place] [facility] [address] [id number] [place] [address]- 2563 Apr, [facility] [place] [facility] [address] [id number] [place] [address]- 3391 14 Apr, 2012 [facility] [place] [facility] [address] [id number] [place] [address]- 4297 Apr, [facility] [place] [facility] [address] [id number] [place] [address]- 3796 Mar, [facility] [place] [facility] [address] [id number] [place] [address]- 9689 Jan, [facility] [place] [facility] [address] [id number] [place] [address]- 7389 Dec, [facility] [place] [facility] [address] [id number] [place] [address]- 0459 October, [facility] [place] [facility] [address] [id number] [place] [address]- 6574 Oct, [facility] [place] [facility] [address] [id number] [place] [address]- 0652 Oct, [facility] [place] [facility] [address] [id number] [place] [address]- 9047 Oct, [facility] [place] [facility] [address] [id number] [place] [address]- 1091 Aug, [facility] [place] [facility] [address] [id number] [place] [address]- 9211 Aug, [facility] [place] [facility] [address] [id number] [place] [address]- 5457 Aug, [facility] [place] [facility] [address] [id number] [place] [address]- 1141 Aug, [facility] [place] [facility] [address] [id number] [place] [address]- 3579 Aug, [facility] [place] [facility] [address] [id number] [place] [address]- 9119 Aug, [facility] [place] [facility] [address] [id number] [place] [address]- 1662 Jun, [facility] [place] [facility] [address] [id number] [place] [address]- 8699 Apr, [facility] [place] [facility] [address] [id number] [place] [address]- 0648 Jun, [facility] [place] [facility] [address] [id number] [place] [address] 2546 Jun, [facility] [place] [facility] [address] [facility] [id number] [place] [address]- 2546 May, [facility] [address] [facility] [id number] [place] [address]- 6464 May, [facility] [address] [facility] [id number] [place] [address]- 7075 Apr, [facility] [address] [facility] [id number] [place] [address]- 7489 Apr, IMMUNIZATIONS No Known Immunizations SOCIAL HISTORY Never Assessed REASON FOR VISIT PLAN OF CARE VITAL SIGNS MEDICATIONS Medication Instructions Dosage Frequency Start Date End Date Duration Status PredniSONE 20 mg Orally Once a day 2 tablet 24h Jan, Jan, 05 days Active RESULTS No Results PROCEDURES No Known [...] History see above surgeries Hospitalization History Anaphylactic shock-[facility] 08/23/16
--- OUTSIDE RECORDS SUMMARY | 2018-07-18 07:16 | XMS REPORT ---
Author Author BRANDY SAGAR [facility] Address [address] [place] [address] Care Team Providers Care Offal Worker Name Role Phone TEZ NAVAHANY Unavailable PROBLEMS Type Condition ICD9-CM Code OEK00-UA Code Onset Dates Condition Status SNOMED Code Problem Migraine with aura and without status migrainosus, not intractable G43.109 Active 1967802 Problem PCOS (polycystic ovarian syndrome) E28.2 Active 19381756 Problem Uncomplicated severe persistent asthma J45.50 Active 106314061 Problem Severe persistent asthma with exacerbation J45.51 Active 027407696 Problem Other elevated white blood cell (WBC) count D72.828 Active 383927997 Problem Multiple food allergies Z91.018 Active 898714859 Problem Pure hypercholesterolemia E78.00 Active 676564834 Problem Current chronic use of inhaled steroid Z79.51 Active 852721318 Problem Asthma exacerbation J45.901 Active 626465302 Problem ADD (attention deficit disorder) F90.0 Active 116456743 Problem Allergic rhinitis due to pollen J30.1 Active 43464888 Problem Vitamin D deficiency E55.9 Active 12576370 Problem Major depressive disorder, recurrent episode, mild F33.0 Active 747140118 Problem Acquired hypothyroidism E03.9 Active 334644668 Problem Gastroesophageal reflux disease without esophagitis K21.9 Active 388237038 ALLERGIES No Information ENCOUNTERS Encounter Location Date Diagnosis [facility] [id number] [address] Mar, [facility] [address], [place] [address] Mar, Multiple food allergies Z91.018 [facility] [id number], [place] [address] Jan, Allergic rhinitis due to pollen J30.1 [facility] [id number] [place] [address] 50622- 2045 Jan, [facility] [id number] [place] [address] 93478- 6728 Jan, Allergic reaction, initial encounter T78.40XA [facility] [id number] [place] [address] 71059- 7075 Dec, Allergic rhinitis due to pollen J30.1 [facility] [id number] [place] [address] 09718- 4259 Dec, [facility] [id number] [place] [address] 69143- 5413 Dec, Allergic rhinitis due to pollen J30.1 [facility] [id number] [place] [address] 25837- 5801 Dec, ADD (attention deficit disorder) F90.0 [address] [address]39- 7894 Dec, ADD (attention deficit disorder) F90.0 and Uncomplicated severe persistent asthma J45.50 [place] [id number] [place] [address] 90879- 6327 Dec, Allergic rhinitis due to pollen J30.1 [facility] [id number] [place] [address] 89535- 2134 Dec, [facility] [id number] [place] [address] 60292- 8311 October, Allergic rhinitis due to pollen J30.1 [facility] [id number] [place] [address] 67971- 5303 October, Allergic rhinitis due to pollen J30.1 [facility] [id number] [place] [address] 20923- 4483 Oct, [facility] [id number] [place] [address] 54866- 9234 Oct, Allergic rhinitis due to pollen J30.1 [place] [id number] [place] [address] 53643- 3498 Oct, [address] 16079- 5672 Oct, Allergic rhinitis due to pollen J30.1 [address] 72268- 9317 13 Oct, 2017 Severe persistent asthma with exacerbation J45.51 and Pneumonia due to Haemophilus influenzae, unspecified laterality, unspecified part of lung J14 [address] 38012- 0210 Oct, ADD (attention deficit disorder) F90.0 [address] [address] 06644- 1691 Aug, Haemophilus influenzae infection A49.2 [address] 99972- 6218 Aug, Cough productive of purulent sputum R05 [address] 18026- 0813 Aug, [address] [address] 67704- 9307 Aug, Pulmonary congestion R09.89 [place] [id number] [place] [address] 90957- 1332 Aug, Severe persistent asthma with exacerbation J45.51 ; Hiatal hernia K44.9 and Gastroesophageal reflux disease without esophagitis K21.9 [address] [id number] [place] [address] 63965- 3571 Aug, Other elevated white blood cell (WBC) count D72.828 [address] 64854- 5363 Aug, Uncomplicated severe persistent asthma J45.50 [address] 83656- 4202 Aug, Pure hypercholesterolemia E78.00 ; Uncomplicated severe persistent asthma J45.50 and Acquired hypothyroidism E03.9 [address] 24066- 0303 Aug, Acquired hypothyroidism E03.9 ; Pure hypercholesterolemia E78.00 and Uncomplicated severe persistent asthma J45.50 [address] 12470- 5140 Aug, Allergic rhinitis due to pollen J30.1 [address] 44022- 7607 Aug, Allergic rhinitis due to pollen J30.[address] 56989- 4909 Aug, [address] [address] [id number] Jul, Pharyngitis, unspecified etiology J02.9 and Lymphadenopathy R59.1 [address] 53856- 0580 Jul, ADD (attention deficit disorder) F90.[address] 16577- 9504 Jul, Allergic rhinitis due to pollen J30.[address] 72696- 2214 Jul, Dental examination Z01.20 [address] 49129- 3342 Jun, Cough productive of purulent sputum R05 [address] 00462- 5455 Jun, Allergic rhinitis due to pollen J30.1 [address] [address] 33942- 0466 Jun, [address] [address] 65552- 5845 Jun, Allergic rhinitis due to pollen J30.1 [address] [place] [place] [address] 76793- 7411 Jun, Allergic rhinitis due to pollen J30.1 [place] [id number] [place] [address] 22210- 5730 May, Allergic rhinitis due to pollen J30.1 [place] [id number] [place] [address] 37798- 3802 May, Pneumonia due to Haemophilus influenzae, unspecified laterality, unspecified part of lung J14 [address] [id number] [place] [address] 925568- 4181 May, Allergic rhinitis due to pollen J30.1 [place] [id number] [place] [address] 40449- 2490 May, Other adverse food reactions, not elsewhere classified, initial encounter T78.1XXA and Pneumonia due to Haemophilus influenzae, unspecified laterality, unspecified part of lung J14 [id number] [place] [address] 09057- 5528 May, Pneumonia due to Haemophilus influenzae, unspecified laterality, unspecified part of lung J14 [address] [id number] [place] [address] 14588- 8732 May, Multiple food allergies Z91.018 ; Uncomplicated severe persistent asthma J45.50 ; Cough productive of purulent sputum R05 and Uses central nervous system stimulants F15.90 [address] [place] [address] 87052- 4297 Apr, Allergic rhinitis due to pollen J30.1 [place] [id number] [place] [address] 00930- 2693 Apr, Allergic rhinitis due to pollen J30.1 [address] [place] [place] [address] 72376- 8578 Apr, Allergic rhinitis due to pollen J30.1 [place] [id number] [place] [address] 99551- 5934 Apr, ADD (attention deficit disorder) F90.0 [place] [id number] [place] [address] 73433- 7942 28 Mar, 2017 Allergic rhinitis due to pollen J30.1 [place] [address] 05570- 6334 21 Mar, 2017 Encounter for immunization Z23 [address] [address] 59248- 9645 19 Mar, 2017 [address] [address] 95078- 3506 14 Mar, 2017 Allergic rhinitis due to pollen J30.1 [place] [id number] [place] [address] 86139- 4154 07 Mar, 2017 Allergic rhinitis due to pollen J30.1 [place] [id number] [place] [address] 60561- 7359 Jan, Allergic rhinitis due to pollen J30.1 [address] [place] 38021- 6999 Jan, Allergic rhinitis due to pollen J30.1 [place] [id number] [place] [address] 82533- 8899 Dec, Uncomplicated severe persistent asthma J45.50 [place] [id number] [place] [address] 40717- 3736 Dec, Allergic rhinitis due to pollen J30.1 [place] [id number] [place] [address] 76560- 8262 Dec, Allergic rhinitis due to pollen J30.1 [place] [id number] [place] [address] 06435- 7458 Dec, Allergic rhinitis due to pollen J30.1 [address] [place] 54899- 8484 Dec, ADD (attention deficit disorder) F90.0 [id number] [place] [address] 58776- 6055 Dec, Allergic rhinitis due to pollen J30.1 [place] [id number] [place] [address] 76954- 4130 Dec, Visit for TB skin test Z11.1 and Screening for tuberculosis Z11.1 [address] [id number] [place] [address] 77337- 9017 Dec, Uncomplicated severe persistent asthma J45.50 ; Palpitations R00.2 ; Pericardial effusion (noninflammatory) I31.3 and Chest discomfort R07.89 [address] [id number] [place] [address] 47842- 4378 Dec, Allergic rhinitis due to pollen J30.1 [id number] [place] [address] 38361- 2810 Dec, Chronic cough R05 [id number] [place] [address] 24914- 0238 Dec, [id number] [place] [address] 92119- 9096 Dec, Allergic rhinitis due to pollen J30.1 [address] [id number] [place] [address] 85480- 3126 Dec, Allergic rhinitis due to pollen J30.1 [address] [id number] [place] [address] 69636- 2951 Dec, Chronic cough R05 [id number] [place] [address] 95741- 0959 October, Allergic rhinitis due to pollen J30.1 [id number] [place] [address] 29515- 8750 October, Allergic rhinitis due to pollen J30.1 [address] [place] [address]- 4827 October, [address] [id number] [place] [address] 42211- 2889 October, Asthma exacerbation J45.901 [address] [id number] [place] [address] 53627- 0114 October, Asthma exacerbation J45.901 and Current chronic use of inhaled steroid Z79.51 [address] 13212- 0306 October, Uncomplicated severe persistent asthma J45.50 [address] 33817- 8392 October, Allergic rhinitis due to pollen J30.1 [address] [id number] [place] [address] 84763- 6701 Oct, [address] 50253- 5905 Oct, Asthma exacerbation J45.901 and Sputum production R05 [address] [id number] [place] [address] 50582- 7267 Oct, Asthma exacerbation J45.901 [address] [id number] [place] [address] 05117- 9612 Oct, ADD (attention deficit disorder) F90.0 [address] [id number] [place] [address] 08761- 0708 Oct, ADD (attention deficit disorder) F90.0 [address] [id number] [place] [address] 07625- 1504 Aug, Allergic rhinitis due to pollen J30.1 [address] [id number] [place] [address] 14563- 3628 Aug, Atypical pneumonia J18.9 [address] [id number] [place] [address] 57498- 5063 Aug, Allergic rhinitis due to pollen J30.1 [place] [address] 65644- 2955 Aug, Acquired hypothyroidism E03.9 [address] 65068- 7734 Aug, Multiple food allergies Z91.018 ; Elevated blood pressure reading R03.0 and Anaphylaxis, subsequent encounter T78.2XXD [id number] Aug, [address] 12715- 4287 Aug, Anaphylaxis, initial encounter T78.2XXA [address] [place] 70484- 5986 Aug, Allergic rhinitis due to pollen J30.1 [address] [place] 05116- 0041 Aug, Dental examination Z01.20 [address] 36973- 1604 Aug, Allergic rhinitis due to pollen J30.1 [address] 51511- 6577 Aug, Acquired hypothyroidism E03.9 and Pure hypercholesterolemia E78.00 [address] 73305- 8026 Aug, ADD (attention deficit disorder) F90.0 ; Acquired hypothyroidism E03.9 and Pure hypercholesterolemia E78.00 [address] [place] 01032- 3558 Aug, Asthma exacerbation J45.901 [address] [place] 78292- 9498 Jul, Allergic rhinitis due to pollen J30.1 [address] [place] [place] [address]- 8950 Jul, Allergic rhinitis due to pollen J30.1 [facility] [id number] [place] [address] 05953- 9536 Jul, [facility] [id number] [place] [address] 31561- 2856 Jul, Allergic rhinitis due to pollen J30.1 [facility] [id number] [place] [address] 59528- 8162 Jul, 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 and ADD ( attention deficit disorder) F90.0 [place] [id number] [place] [address] 45432- 0430 Jul, Other chcf (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 and ADD ( attention deficit disorder) F90.0 [address] [id number] [place] [address] 44104- 2834 Jul, [facility] [id number] [place] [address] 62601- 7898 Jun, Allergic rhinitis due to pollen J30.1 [facility] [id number] [place] [address] 42152- 9659 Jun, Allergic rhinitis due to pollen J30.1 [facility] [address] [place] [address] 13902- 5971 Jun, [facility] [id number] [place] [address] 14222- 8439 May, Allergic rhinitis due to pollen J30.1 [facility] [id number] [place] [address] 52746- 3858 May, Allergic rhinitis due to pollen J30.1 [facility] [address] [place] [address] 59620- 6884 Apr, Allergic rhinitis due to pollen J30.1 [facility] [id number] [place] [address] 93351- 5811 Apr, Allergic rhinitis due to pollen J30.1 [facility] [address] [place] [address] 27681- 9355 Apr, Encounter for immunization Z23 [facility] [id number] [place] [address] 27376- 3000 Apr, [facility] [id number] [place] [address] 60040- 2383 Mar, Allergic rhinitis due to pollen J30.1 [facility] [address] [place] [address] 92884- 7767 Mar, Multiple allergies Z88.9 [place] [id number] [place] [address] 49170- 0638 Mar, Candidal vaginitis B37.3 [address] [id number] [place] [address] 70455- 9745 Mar, Allergic rhinitis due to pollen J30.1 [facility] [address] [place] [address] 05557- 8100 Jan, Asthma exacerbation J45.901 ; Fatigue, unspecified type R53.83 and Community acquired pneumonia J18.9 [facility] [place] [facility] [address] [place] [address] [id number] Jan, Encounter for dental examination Z01.20 [facility] [address] [place] [address] 45774- 5218 Jan, Allergic rhinitis due to pollen J30.1 [facility] [address] [place] [address] 95932- 1052 Dec, Allergic rhinitis due to pollen J30.1 [facility] [address] [place] [address] 57982- 9158 Dec, [facility] [address] [place] [address] 08885- 3643 Dec, Allergic rhinitis due to pollen J30.1 [facility] [address], [place] [address]- 5667 Dec, [facility] [address], [place] [address]- 1331 Dec, [facility] [address], [place] [address]- 7795 Dec, [facility] [address] [address]- 1169 Dec, Allergic rhinitis due to pollen J30.1 [facility] [address], [place] [address]- 5813 Dec, [facility] [address] [address]- 7769 Dec, [facility] [address] [place] [address] 68275- 0842 Dec, Allergic rhinitis due to pollen J30.1 [facility] [address], [place] [address]- 4145 October, Allergic rhinitis due to pollen J30.1 [facility] [address], [place] [address]- 5780 October, Allergic rhinitis due to pollen J30.1 [facility] [address] [address]- 2150 October, [facility] [address], [place] [address]- 3493 October, [facility] [address], [place] [address]- 6514 October, ADD (attention deficit disorder) F90.0 ; Major depressive disorder, recurrent episode, mild F33.0 and Uncomplicated severe persistent asthma J45.50 [facility] [address], [place] [address]- 9338 Oct, Allergic rhinitis due to pollen J30.1 [facility] [id number] [place] [address] 98633- 2063 14 Oct, 2015 ADD (attention deficit disorder) F90.0 [facility] [id number] [place] [address] 43942- 2260 Oct, Allergic rhinitis due to pollen 477.0 [facility] [id number] [place] [address] 83957- 8806 Aug, Allergic rhinitis due to pollen 477.0 [facility] [id number] [place] [address] 79725- 6967 Aug, 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 [place] [id number] [place] [address] 53281- 6451 Aug, [facility] [id number] [place] [address] 81072- 3080 Aug, Allergic rhinitis due to pollen 477.0 [place] [id number] [place] [address] 15101- 3072 Aug, Allergic rhinitis due to pollen 477.0 [place] [id number] [place] [address] 30328- 6993 Aug, Allergic rhinitis due to pollen 477.0 [facility] [id number] [place] [address] 23723- 6292 Aug, Exposure to influenza Z20.828 [facility] [place] [facility] [id number] [place] [address] [id number] Aug, Encounter for dental examination and cleaning without abnormal findings Z01.20 [facility] [id number] [place] [address] 49316- 6182 Aug, Allergic rhinitis due to pollen J30.1 [facility] [address] [place] [address] 52536- 0227 Aug, [facility] [id number] [place] [address] 01642- 6644 Aug, 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 [place] [id number] [place] [address] 61120- 0394 Jul, [place] [address] 37969- 8231 Jul, Allergic rhinitis due to pollen 477.0 [place] [address] 60627- 5423 Jul, [place] [address] 67346- 5297 Jul, Allergic rhinitis due to pollen 477.0 [place] [address] 15585- 6375 Jun, ADD (attention deficit disorder) F90.0 ; Acquired hypothyroidism E03.9 ; PCOS (polycystic ovarian syndrome) E28.2 ; Polyarthralgia M25.50 and On stimulant medication Z79.899 [place] [address] 48263- 0903 Apr, Encounter for immunization Z23 [place] [address] 12260- 1394 16 Mar, 2015 Allergic rhinitis due to pollen 477.0 [place] [id number] [place] [address] 30727- 7081 14 Mar, 2015 Influenza vaccine administered V04.81 [place] [id number] [place] [address] 44854- 7999 Mar, [place] [id number] [place] [address] 07633- 8316 Jan, Allergic rhinitis due to pollen 477.0 [place] [id number] [place] [address] 00498- 8941 Jan, Allergic rhinitis due to pollen 477.0 [place] [address] 65752- 4076 Jan, Allergic rhinitis due to pollen 477.0 [facility] [place] [facility] [address] [address] Jan, Dental examination V72.2 [facility] [address] [place] [address]- 9717 Dec, Allergic rhinitis due to pollen 477.0 [facility] [address] [place] [address] 90722- 5341 October, [facility] [address] [place] [address]- 2641 Oct, [facility] [id number] [place] [address] 73937- 8259 Oct, [facility] [id number] [place] [address] 41048- 8016 Aug, [facility] [id number] [place] [address] 13118- 0185 Aug, [facility] [address] [address]- 3517 Aug, [facility] [address] [place] [address]- 6645 Aug, [facility] [address], [place] [address]- 4675 Aug, [facility] [address] [address]- 1331 Aug, [facility] [address] [address] 3170 Aug, [facility] [address] [address]- 5947 Aug, [facility] [address] [address]- 8388 Jul, [facility] [address] [address]- 3876 Jul, [facility] [place] [facility] [address] [id number] [place] [address]- 2672 Jul, [facility] [place] [facility] [address] [id number] [place] [address]- 6697 Jul, [facility] [place] [facility] [address] [id number] [place] [address] Jul, [facility] [place] [facility] [address] [id number] [place] [address] Jul, [facility] [place] [facility] [address] [id number] [place] [address] Jul, [facility] [place] [facility] [address] [id number] [place] [address] Jul, [facility] [place] [facility] [address] [id number] [place] [address] Jul, [facility] [place] [facility] [address] [id number] [place] [address] Jul, [facility] [place] [facility] [address] [id number] [place] [address] Jul, [facility] [place] [facility] [address] [id number] [place] [address]- 0565 Jun, [facility] [place] [facility] [address] [id number] [place] [address] Jun, [facility] [place] [facility] [address] [id number] [place] [address] 6[address] Jun, [facility] [place] [facility] [address] [id number] [place] [address] 45[address] Jun, [facility] [place] [facility] [address] [id number] [place] [address] 9758 Jun, [facility] [place] [facility] [address] [id number] [place] [address] Jun, [facility] [place] [facility] [address] [id number] [place] [address] 7067 May, [facility] [place] [facility] [address] [id number] [place] [address] 1095 May, [facility] [place] [facility] [address] [id number] [place] [address] 6[address] May, [facility] [place] [facility] [address] [id number] [place] [address]- 6468 May, [facility] [place] [facility] [address] [id number] [place] [address]- 2631 May, [facility] [place] [facility] [address] [id number] [place] [address]- 0599 May, [facility] [place] [facility] [address] [id number] [place] [address]- 9084 Apr, [facility] [place] [facility] [address] [id number] [place] [address]- 8409 Apr, [facility] [place] [facility] [address] [id number] [place] [address]- 2577 Mar, [facility] [place] [facility] [address] [id number] [place] [address]- 5627 Mar, [facility] [place] [facility] [address] [id number] [place] [address]- 7848 Mar, [facility] [place] [facility] [address] [id number] [place] [address]- 2547 30 Mar, 2014 [facility] [place] [facility] [address] [id number] [place] [address]- 254 Mar, [facility] [place] [facility] [address] [id number] [place] [address]- 5869 Mar, [facility] [place] [facility] [address] [id number] [place] [address]- 0511 Jan, [facility] [place] [facility] [address] [id number] [place] [address]- 5116 Jan, [facility] [place] [facility] [address] [id number] [place] [address]- 4385 Jan, [facility] [place] [facility] [address] [id number] [place] [address]- 5973 Jan, [facility] [place] [facility] [address] [id number] [place] [address]- 2715 Jan, [facility] [place] [facility] [address] [id number] [place] [address]- 9483 Jan, [facility] [place] [facility] [address] [id number] [place] [address]- 4688 Dec, [facility] [place] [facility] [address] [id number] [place] [address]- 5314 Dec, [facility] [place] [facility] [address] [id number] [place] [address]- 9017 Dec, [facility] [place] [facility] [address] [id number] [place] [address]- 7343 Dec, [facility] [place] [facility] [address] [id number] [place] [address]- 6813 Dec, [facility] [place] [facility] [address] [id number] [place] [address]- 5473 Dec, [facility] [place] [facility] [address] [id number] [place] [address]- 3742 Dec, [facility] [place] [facility] [address] [id number] [place] [address]- 2226 Dec, [facility] [place] [facility] [address] [id number] [place] [address]- 1465 Dec, [facility] [place] [facility] [address] [id number] [place] [address]- 8715 Dec, [facility] [place] [facility] [address] [id number] [place] [address]- 2075 Dec, [facility] [place] [facility] [address] [id number] [place] [address]- 3099 Dec, [facility] [place] [facility] [address] [id number] [place] [address]- 2052 Dec, [facility] [place] [facility] [address] [id number] [place] [address]- 5974 Dec, [facility] [place] [facility] [address] [id number] [place] [address]- 0027 Dec, [facility] [place] [facility] [address] [id number] [place] [address]- 6115 Dec, [facility] [place] [facility] [address] [id number] [place] [address]- 2705 October, [facility] [place] [facility] [address] [id number] [place] [address]- 0718 October, [facility] [place] [facility] [address] [id number] [place] [address]- 0597 October, [facility] [place] [facility] [address] [id number] [place] [address]- 9298 October, [facility] [place] [facility] [address] [id number] [place] [address]- 5288 October, [facility] [place] [facility] [address] [id number] [place] [address]- 9281 October, [facility] [place] [facility] [address] [id number] [place] [address]- 6253 Oct, [facility] [place] [facility] [address] [id number] [place] [address]- 0460 Oct, [facility] [place] [facility] [address] [id number] [place] [address]- 1761 Oct, [facility] [place] [facility] [address] [id number] [place] [address]- 2983 Oct, [facility] [place] [facility] [address] [id number] [place] [address]- 7328 Oct, [facility] [place] [facility] [address] [id number] [place] [address]- 0373 Oct, [facility] [place] [facility] [address] [id number] [place] [address]- 3158 Aug, [facility] [place] [facility] [address] [id number] [place] [address]- 6882 Aug, [facility] [place] [facility] [address] [id number] [place] [address]- 6106 Aug, [facility] [place] [facility] [address] [id number] [place] [address]- 4819 Aug, [facility] [place] [facility] [address] [id number] [place] [address]- 2632 Jul, [facility] [place] [facility] [address] [id number] [place] [address]- 5310 Jul, [facility] [place] [facility] [address] [id number] [place] [address]- 9381 Jul, [facility] [place] [facility] [address] [id number] [place] [address]- 1831 Jul, [facility] [place] [facility] [address] [id number] [place] [address] 2894 Jun, [facility] [place] [facility] [address] [id number] [place] [address]- 7166 31 Jun, 2013 [facility] [place] [facility] [address] [id number] [place] [address]- 4806 24 Jun, 2013 [facility] [place] [facility] [address] [id number] [place] [address]- 9018 24 Jun, 2013 [facility] [place] [facility] [address] [id number] [place] [address]- 8865 20 Jun, 2013 [facility] [place] [facility] [address] [id number] [place] [address] 2546 18 Jun, 2013 [facility] [place] [facility] [address] [id number] [place] [address]- 0862 Jun, [facility] [place] [facility] [address] [id number] [place] [address]- 0201 Jun, [facility] [place] [facility] [address] [id number], [place] [address]- 4464 Jun, [facility] [place] [facility] [address] [facility] [id number] [place] [address]- 4982 Jun, [facility] [place] [facility] [address] [id number], [place] [address]- 8690 Jun, [facility] [place] [facility] [address] [id number] [place] [address]- 5718 May, [facility] [place] [facility] [address] [id number], [place] [address]- 1787 May, [facility] [place] [facility] [address] [id number], [place] [address]- 9443 May, [facility] [place] [facility] [address] [id number], [place] [address]- 4015 May, [facility] [place] [facility] [address] [id number], [place] [address]- 5220 May, [facility] [place] [facility] [address] [id number], [place] [address]- 4999 May, [facility] [place] [facility] [address] [id number], [place] [address]- 7645 May, [facility] [place] [facility] [address] [id number], [place] [address]- 1721 Apr, [facility] [place] [facility] [address] [id number], [place] [address]- 2579 Apr, [facility] [place] [facility] [address] [id number], [place] [address]- 6150 Apr, [facility] [place] [facility] [address] [id number], [place] [address]- 2542 Apr, [facility] [place] [facility] [address] [id number] [place] [address]- 6996 27 Mar, 2012 [facility] [place] [facility] [address] [id number] [place] [address]- 1876 Mar, 2012 [facility] [place] [facility] [address] [id number] [place] [address] 2546 Mar, [facility] [place] [facility] [address] [id number] [place] [address] 2546 Mar, 2012 [facility] [place] [facility] [address] [id number] [place] [address] 2544 04 Mar, 2013 [facility] [place] [facility] [address] [id number] [place] [address]- 6022 Mar, [facility] [place] [facility] [address] [id number] [place] [address]- 9072 Jan, [facility] [place] [facility] [address] [id number] [place] [address]- 2586 Jan, [facility] [place] [facility] [address] [id number] [place] [address]- 3700 Jan, [facility] [place] [facility] [address] [id number] [place] [address]- 3914 Jan, [facility] [place] [facility] [address] [id number] [place] [address]- 4930 Jan, [facility] [place] [facility] [address] [id number] [place] [address] 2549 Dec, [facility] [place] [facility] [address] [id number] [place] [address]- 2543 Dec, [facility] [place] [facility] [address] [id number] [place] [address]- 3962 Dec, [facility] [place] [facility] [address] [id number] [place] [address]- 254 Dec, [facility] [place] [facility] [address] [id number] [place] [address]- 8901 Dec, [facility] [place] [facility] [address] [id number] [place] [address]- 6919 Dec, [facility] [address] [id number] [place] [address]- 3360 Dec, [facility] [address] [id number] [place] [address]- 7533 Dec, [facility] [address] [id number] [place] [address]- 2143 October, [facility] [address] [id number] [place] [address]- 8998 October, [facility] [address] [id number] [place] [address]- 0453 October, [facility] [address] [id number] [place] [address]- 4551 Oct, [facility] [address] [id number] [place] [address]- 5091 Oct, [facility] [address] [id number] [place] [address]- 1764 Oct, [facility] [address] [id number] [place] [address]- 3565 Oct, [facility] [address] [id number] [place] [address]- 6336 Aug, [facility] [address] [id number] [place] [address]- 2443 Aug, [facility] [address] [id number] [place] [address]- 2740 05 Aug, 2012 [facility] [place] [facility] [address] [id number] [place] [address]- 0166 Jul, [facility] [address] [id number] [place] [address]- 0782 08 May, 2012 [facility] [address] [id number], [place] [address]- 5133 May, [facility] [place] [facility] [address] [id number] [place] [address]- 7903 Apr, [facility] [place] [facility] [address] [id number] [place] [address] Apr, [facility] [place] [facility] [address] [id number] [place] [address]- 1493 Apr, [facility] [place] [facility] [address] [id number] [place] [address]- 3798 Apr, [facility] [place] [facility] [address] [id number] [place] [address]- 3872 Apr, [facility] [place] [facility] [address] [id number] [place] [address]- 9396 Apr, [facility] [place] [facility] [address] [id number] [place] [address]- 6159 Apr, [facility] [place] [facility] [address] [id number] [place] [address]- 4692 Apr, [facility] [place] [facility] [address] [id number] [place] [address]- 3183 Apr, [facility] [place] [facility] [address] [id number] [place] [address]- 3658 Apr, [facility] [place] [facility] [address] [id number], [place] [address]- 6773 Apr, [facility] [place] [facility] [address] [id number], [place] [address]- 8152 Apr, [facility] [place] [facility] [address] [id number] [place] [address]- 8862 Mar, [facility] [place] [facility] [address] [id number] [place] [address]- 4051 Jan, [facility] [place] [facility] [address] [id number] [place] [address]- 0130 Dec, [facility] [place] [facility] [address] [id number] [place] [address]- 5816 October, [facility] [address] [id number] [place] [address]- 6526 Oct, [facility] [place] [facility] [address] [id number] [place] [address]- 7406 Oct, [facility] [address] [id number] [place] [address]- 4874 Oct, [facility] [place] [facility] [address] [id number] [place] [address]- 2126 Aug, [facility] [address] [id number] [place] [address]- 2071 Aug, [facility] [place] [facility] [address] [id number] [place] [address]- 4481 Aug, [facility] [address] [id number] [place] [address]- 6419 16 Aug, 2011 [facility] [address] [id number] [place] [address]- 4033 Aug, [facility] [address] [id number] [place] [address]- 8269 Aug, [facility] [address] [id number] [place] [address]- 7406 Jun, [facility] [address] [id number] [place] [address]- 7886 Apr, [facility] [place] [facility] [address] [id number] [place] [address]- 2781 Jun, [facility] [place] [facility] [address] [id number] [place] [address]- 2546 Jun, [facility] [place] [facility] [address] [id number] [place] [address]- 2546 May, [facility] [place] [facility] [address] [id number] [place] [address]- 6134 May, [facility] [address] [facility] [id number] [place] [address]- 9729 Apr, [facility] [address] [facility] [id number] [place] [address]- 2852 13 Apr, 2009 IMMUNIZATIONS No Known Immunizations SOCIAL HISTORY Never Assessed REASON FOR VISIT Referral PLAN OF CARE VITAL SIGNS MEDICATIONS Unknown [...] History see above surgeries Hospitalization History Anaphylactic shock-[facility] 08/23/16
--- OUTSIDE RECORDS SUMMARY | 2018-07-18 07:16 | XMS REPORT ---
Author Author BRANDY SAGAR [facility] Address [address] [place] [address] Care Team Providers Care Lens Grinder Name Role Phone TEZ NAVAHANY Unavailable PROBLEMS Type Condition ICD9-CM Code NFG61-CP Code Onset Dates Condition Status SNOMED Code Problem Migraine with aura and without status migrainosus, not intractable G43.109 Active 3504048 Problem PCOS (polycystic ovarian syndrome) E28.2 Active 12280801 Problem Uncomplicated severe persistent asthma J45.50 Active 401975242 Problem Severe persistent asthma with exacerbation J45.51 Active 256141477 Problem Other elevated white blood cell (WBC) count D72.828 Active 357020517 Problem Multiple food allergies Z91.018 Active 423469760 Problem Pure hypercholesterolemia E78.00 Active 035213482 Problem Current chronic use of inhaled steroid Z79.51 Active 296603114 Problem Asthma exacerbation J45.901 Active 227425150 Problem ADD (attention deficit disorder) F90.0 Active 801892056 Problem Allergic rhinitis due to pollen J30.1 Active 15998927 Problem Vitamin D deficiency E55.9 Active 26461029 Problem Major depressive disorder, recurrent episode, mild F33.0 Active 471914346 Problem Acquired hypothyroidism E03.9 Active 961008427 Problem Gastroesophageal reflux disease without esophagitis K21.9 Active 783393568 ALLERGIES No Information ENCOUNTERS Encounter Location Date Diagnosis [facility] [id number] [address] Mar, [facility] [address] [address] Mar, Multiple food allergies Z91.018 [facility] [id number] [address] Jan, Allergic rhinitis due to pollen J30.1 [facility] [id number] [place] [address] 72958- 7271 Jan, [facility] [id number] [place] [address] 46539- 1514 Jan, Allergic reaction, initial encounter T78.40XA [facility] [id number] [place] [address] 25117- 0404 Dec, Allergic rhinitis due to pollen J30.1 [facility] [id number] [place] [address] 73522- 3706 Dec, [facility] [id number] [place] [address] 00058- 1585 Dec, Allergic rhinitis due to pollen J30.1 [facility] [id number] [place] [address] 73897- 8094 Dec, ADD (attention deficit disorder) F90.0 [place] [address] 57314- 9963 Dec, ADD (attention deficit disorder) F90.0 and Uncomplicated severe persistent asthma J45.50 [place] [id number] [place] [address] 31676- 2560 Dec, Allergic rhinitis due to pollen J30.1 [facility] [id number] [place] [address] 98230- 5036 Dec, [facility] [id number] [place] [address] 19655- 7506 October, Allergic rhinitis due to pollen J30.1 [facility] [id number] [place] [address] 99927- 2743 October, Allergic rhinitis due to pollen J30.1 [facility] [id number] [place] [address] 41459- 3414 Oct, [facility] [id number] [place] [address] 33139- 4633 Oct, Allergic rhinitis due to pollen J30.1 [place] [id number] [place] [address] 77582- 8444 Oct, [place] [address] 28306- 2289 Oct, Allergic rhinitis due to pollen J30.1 [place] [address] 36942- 4883 13 Oct, 2017 Severe persistent asthma with exacerbation J45.51 and Pneumonia due to Haemophilus influenzae, unspecified laterality, unspecified part of lung J14 [place] [address] 57247- 3144 Oct, ADD (attention deficit disorder) F90.0 [place] [address] 30686- 4803 Aug, Haemophilus influenzae infection A49.2 [place] [address] 06080- 0432 Aug, Cough productive of purulent sputum R05 [place] [address] 25508- 4326 Aug, [place] [address] 16840- 5414 Aug, Pulmonary congestion R09.89 [place] [id number] [place] [address] 96412- 3582 Aug, Severe persistent asthma with exacerbation J45.51 ; Hiatal hernia K44.9 and Gastroesophageal reflux disease without esophagitis K21.9 [place] [id number] [place] [address] 87617- 5168 Aug, Other elevated white blood cell (WBC) count D72.828 [place] [address] 18788- 3129 Aug, Uncomplicated severe persistent asthma J45.50 [place] [address] 49212- 2642 Aug, Pure hypercholesterolemia E78.00 ; Uncomplicated severe persistent asthma J45.50 and Acquired hypothyroidism E03.9 [place] [address] 78451- 4025 Aug, Acquired hypothyroidism E03.9 ; Pure hypercholesterolemia E78.00 and Uncomplicated severe persistent asthma J45.50 [place] [address] 17431- 3030 Aug, Allergic rhinitis due to pollen J30.1 [place] [address] 58128- 2903 Aug, Allergic rhinitis due to pollen J30.[address] 23487- 3878 Aug, [place] [address] [id number] Jul, Pharyngitis, unspecified etiology J02.9 and Lymphadenopathy R59.1 [place] [address] 96655- 5266 Jul, ADD (attention deficit disorder) F90.[address] 55566- 3829 Jul, Allergic rhinitis due to pollen J30.[address] 26793- 7337 Jul, Dental examination Z01.20 [place] [address] 14240- 0259 Jun, Cough productive of purulent sputum R05 [address] 97161- 2997 Jun, Allergic rhinitis due to pollen J30.1 [place] [address] 14212- 0746 Jun, [place] [address] 63166- 2736 Jun, Allergic rhinitis due to pollen J30.1 [place] [address] [place] [address] 05006- 0978 Jun, Allergic rhinitis due to pollen J30.1 [place] [id number] [place] [address] 52734- 3820 May, Allergic rhinitis due to pollen J30.1 [place] [id number] [place] [address] 28910- 4109 May, Pneumonia due to Haemophilus influenzae, unspecified laterality, unspecified part of lung J14 [place] [id number] [place] [address] 356904- 0294 May, Allergic rhinitis due to pollen J30.1 [place] [id number] [place] [address] 18767- 0873 May, Other adverse food reactions, not elsewhere classified, initial encounter T78.1XXA and Pneumonia due to Haemophilus influenzae, unspecified laterality, unspecified part of lung J14 [place] [id number] [place] [address] 09520- 0528 May, Pneumonia due to Haemophilus influenzae, unspecified laterality, unspecified part of lung J14 [place] [id number] [place] [address] 52569- 8288 May, Multiple food allergies Z91.018 ; Uncomplicated severe persistent asthma J45.50 ; Cough productive of purulent sputum R05 and Uses central nervous system stimulants F15.90 [place] [address] [place] [address] 39354- 8207 Apr, Allergic rhinitis due to pollen J30.1 [place] [id number] [place] [address] 15571- 6541 Apr, Allergic rhinitis due to pollen J30.1 [place] [address] [place] [address] 74921- 2215 Apr, Allergic rhinitis due to pollen J30.1 [place] [id number] [place] [address] 07390- 4595 Apr, ADD (attention deficit disorder) F90.0 [place] [id number] [place] [address] 49245- 4505 28 Mar, 2017 Allergic rhinitis due to pollen J30.1 [place] [address] 98507- 2462 21 Mar, 2017 Encounter for immunization Z23 [place] [address] 46135- 9953 19 Mar, 2017 [place] [address] 49532- 8520 14 Mar, 2017 Allergic rhinitis due to pollen J30.1 [place] [id number] [place] [address] 37536- 7672 07 Mar, 2017 Allergic rhinitis due to pollen J30.1 [place] [id number] [place] [address] 28964- 1966 Jan, Allergic rhinitis due to pollen J30.1 [place] [address] 06576- 2042 Jan, Allergic rhinitis due to pollen J30.1 [place] [id number] [place] [address] 43030- 7127 Dec, Uncomplicated severe persistent asthma J45.50 [place] [id number] [place] [address] 23619- 7796 Dec, Allergic rhinitis due to pollen J30.1 [place] [id number] [place] [address] 75213- 2004 Dec, Allergic rhinitis due to pollen J30.1 [place] [id number] [place] [address] 98376- 1693 Dec, Allergic rhinitis due to pollen J30.1 [place] [address] 27717- 0939 Dec, ADD (attention deficit disorder) F90.0 [place] [id number] [place] [address] 06695- 4010 Dec, Allergic rhinitis due to pollen J30.1 [place] [id number] [place] [address] 74091- 2001 Dec, Visit for TB skin test Z11.1 and Screening for tuberculosis Z11.1 [place] [id number] [place] [address] 73744- 5291 Dec, Uncomplicated severe persistent asthma J45.50 ; Palpitations R00.2 ; Pericardial effusion (noninflammatory) I31.3 and Chest discomfort R07.89 [place] [id number] [place] [address] 84678- 6443 Dec, Allergic rhinitis due to pollen J30.1 [place] [id number] [place] [address] 36370- 5836 Dec, Chronic cough R05 [place] [id number] [place] [address] 15487- 2355 Dec, [place] [id number] [place] [address] 75249- 0152 Dec, Allergic rhinitis due to pollen J30.1 [place] [id number] [place] [address] 78559- 4006 Dec, Allergic rhinitis due to pollen J30.1 [place] [id number] [place] [address] 37239- 1881 Dec, Chronic cough R05 [place] [id number] [place] [address] 79183- 1712 October, Allergic rhinitis due to pollen J30.1 [place] [id number] [place] [address] 41168- 9295 October, Allergic rhinitis due to pollen J30.1 [place] [address] [place] [address]- 5007 October, [place] [id number] [place] [address] 14688- 4723 October, Asthma exacerbation J45.901 [place] [id number] [place] [address] 97002- 7495 October, Asthma exacerbation J45.901 and Current chronic use of inhaled steroid Z79.51 [place] [address] 48991- 7739 October, Uncomplicated severe persistent asthma J45.50 [place] [address] 17041- 5136 October, Allergic rhinitis due to pollen J30.1 [place] [id number] [place] [address] 35058- 0122 Oct, [place] [address] 81223- 5620 Oct, Asthma exacerbation J45.901 and Sputum production R05 [place] [id number] [place] [address] 76016- 9598 Oct, Asthma exacerbation J45.901 [place] [id number] [place] [address] 62479- 0305 Oct, ADD (attention deficit disorder) F90.0 [place] [id number] [place] [address] 24084- 5104 Oct, ADD (attention deficit disorder) F90.0 [place] [id number] [place] [address] 56483- 2792 Aug, Allergic rhinitis due to pollen J30.1 [place] [id number] [place] [address] 37821- 0912 Aug, Atypical pneumonia J18.9 [place] [id number] [place] [address] 19525- 7522 Aug, Allergic rhinitis due to pollen J30.1 [place] [address] 86348- 5692 Aug, Acquired hypothyroidism E03.9 [place] [address] 98484- 8933 Aug, Multiple food allergies Z91.018 ; Elevated blood pressure reading R03.0 and Anaphylaxis, subsequent encounter T78.2XXD [place] [address] [id number] Aug, [place] [address] 48271- 9484 Aug, Anaphylaxis, initial encounter T78.2XXA [place] [address] 83627- 2112 Aug, Allergic rhinitis due to pollen J30.1 [place] [address] 96207- 3209 Aug, Dental examination Z01.20 [place] [address] 25034- 3328 Aug, Allergic rhinitis due to pollen J30.1 [place] [address] 69014- 8493 Aug, Acquired hypothyroidism E03.9 and Pure hypercholesterolemia E78.00 [place] [address] 64591- 0886 Aug, ADD (attention deficit disorder) F90.0 ; Acquired hypothyroidism E03.9 and Pure hypercholesterolemia E78.00 [place] [address] 60970- 1527 Aug, Asthma exacerbation J45.901 [place] [address] 69007- 7516 Jul, Allergic rhinitis due to pollen J30.1 [place] [address] [place] [address]- 4381 Jul, Allergic rhinitis due to pollen J30.1 [facility] [id number] [place] [address] 43115- 5454 Jul, [facility] [id number] [place] [address] 32879- 3442 Jul, Allergic rhinitis due to pollen J30.1 [facility] [id number] [place] [address] 93025- 4776 Jul, Other moth exterminator (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 and ADD ( attention deficit disorder) F90.0 [place] [id number] [place] [address] 66897- 3286 Jul, Other assisted (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 and ADD ( attention deficit disorder) F90.0 [place] [id number] [place] [address] 58491- 5053 Jul, [facility] [id number] [place] [address] 69765- 4969 Jun, Allergic rhinitis due to pollen J30.1 [facility] [id number] [place] [address] 11228- 7905 Jun, Allergic rhinitis due to pollen J30.1 [facility] [address] [place] [address] 60126- 3729 Jun, [facility] [id number] [place] [address] 17745- 5916 May, Allergic rhinitis due to pollen J30.1 [facility] [id number] [place] [address] 17275- 8502 May, Allergic rhinitis due to pollen J30.1 [facility] [address] [place] [address] 16530- 8627 Apr, Allergic rhinitis due to pollen J30.1 [facility] [id number] [place] [address] 01977- 5967 Apr, Allergic rhinitis due to pollen J30.1 [facility] [address] [place] [address] 86104- 4396 Apr, Encounter for immunization Z23 [facility] [id number] [place] [address] 26136- 0834 Apr, [facility] [id number] [place] [address] 35723- 4955 Mar, Allergic rhinitis due to pollen J30.1 [facility] [address] [place] [address] 10594- 5840 Mar, Multiple allergies Z88.9 [place] [id number] [place] [address] 19653- 0237 Mar, Candidal vaginitis B37.3 [place] [id number] [place] [address] 40235- 4425 Mar, Allergic rhinitis due to pollen J30.1 [facility] [address] [place] [address] 43379- 0182 Jan, Asthma exacerbation J45.901 ; Fatigue, unspecified type R53.83 and Community acquired pneumonia J18.9 [facility] [address] [place] [address] [id number] Jan, Encounter for dental examination Z01.20 [facility] [address] [place] [address] 56114- 0108 Jan, Allergic rhinitis due to pollen J30.1 [facility] [address] [place] [address] 01558- 6953 Dec, Allergic rhinitis due to pollen J30.1 [facility] [address] [place] [address] 93962- 8710 Dec, [facility] [address] [place] [address] 99124- 5496 Dec, Allergic rhinitis due to pollen J30.1 [facility] [address] [address]- 3927 Dec, [facility] [address] [address]- 7915 Dec, [facility] [address] [address]- 7061 Dec, [facility] [id number] [address]- 7127 Dec, Allergic rhinitis due to pollen J30.1 [facility] [address] [address]- 9084 Dec, [facility] [address] [address]- 8893 Dec, [facility] [address] [place] [address] 55280- 9063 Dec, Allergic rhinitis due to pollen J30.1 [facility] [address] [address]- 5098 October, Allergic rhinitis due to pollen J30.1 [facility] [address] [address]- 1824 October, Allergic rhinitis due to pollen J30.1 [facility] [address] [address]- 3928 October, [facility] [address] [address]- 1002 October, [facility] [address] [address]- 1634 October, ADD (attention deficit disorder) F90.0 ; Major depressive disorder, recurrent episode, mild F33.0 and Uncomplicated severe persistent asthma J45.50 [facility] [address] [address]- 5326 Oct, Allergic rhinitis due to pollen J30.1 [facility] [id number] [place] [address] 20335- 5889 14 Oct, 2015 ADD (attention deficit disorder) F90.0 [facility] [id number] [place] [address] 03816- 8205 Oct, Allergic rhinitis due to pollen 477.0 [facility] [id number] [place] [address] 14211- 5103 Aug, Allergic rhinitis due to pollen 477.0 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 [id number] [place] [address] 76479- 2232 Aug, Allergic rhinitis due to pollen 477.0 [place] [id number] [place] [address] 82106- 8138 Aug, Allergic rhinitis due to pollen 477.0 [place] [id number] [place] [address] 36881- 6586 Aug, Allergic rhinitis due to pollen 477.0 [facility] [id number] [place] [address] 60939- 6294 Aug, Exposure to influenza Z20.828 [facility] [id number] [place] [address] [id number] Aug, Encounter for dental examination and cleaning without abnormal findings Z01.20 [facility] [id number] [place] [address] 25866- 0282 Aug, Allergic rhinitis due to pollen J30.1 [facility] [address] [place] [address] 13223- 2007 Aug, 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 [place] [id number] [place] [address] 05629- 9140 Jul, [place] [address] 04117- 7235 Jul, Allergic rhinitis due to pollen 477.0 [place] [address] 96197- 0401 Jul, [place] [address] 53791- 6825 Jul, Allergic rhinitis due to pollen 477.0 [place] [address] 93967- 1067 Jun, ADD (attention deficit disorder) F90.0 ; Acquired hypothyroidism E03.9 ; PCOS (polycystic ovarian syndrome) E28.2 ; Polyarthralgia M25.50 and On stimulant medication Z79.899 [place] [address] 50237- 5934 Apr, Encounter for immunization Z23 [place] [address] 09267- 4893 16 Mar, 2015 Allergic rhinitis due to pollen 477.0 [place] [id number] [place] [address] 24901- 4424 14 Mar, 2015 Influenza vaccine administered V04.81 [place] [id number] [place] [address]- [address] Mar, [place] [address] [place] [id number] [place] [address]- [address] Jan, Allergic rhinitis due to pollen 477.0 [place] [address] [place] [id number] [place] [address]- [address]77 Jan, Allergic rhinitis due to pollen 477.0 [place] [address] [address] Jan, Allergic rhinitis due to pollen 477.0 [facility] [id number] [id number] Jan, Dental examination V72.2 [facility] [address] [address] Dec, Allergic rhinitis due to pollen 477.0 [facility] [id number] [place] [address] October, [facility] [id number] [address] Oct, [facility] [address] [place] [id number] [place] [address] 225[address] Oct, [facility] [address] [id number] [place] [address]307 Aug, [facility] [address] [id number] [place] [address] Aug, [facility] [address] [address] Aug, [facility] [address] [address] Aug, [facility] [address] [address] Aug, [facility] [address] [address] Aug, [facility] [address] [address] Aug, [facility] [address] [address] Aug, [facility] [address] [address] Jul, [facility] [address] [address] Jul, [facility] [place] [facility] [address] [id number] [address] Jul, [facility] [facility] [address] [id number] [place] [address] Jul, [facility] [place] [facility] [address] [id number] [place] [address] 87[address] Jul, [facility] [place] [facility] [address] [id number] [place] [address] Jul, [facility] [place] [facility] [address] [id number] [place] [address] 79[address] Jul, [facility] [place] [facility] [address] [id number] [place] [address] 5735 Jul, [facility] [place] [facility] [address] [id number] [place] [address] 7923 Jul, [facility] [place] [facility] [address] [id number] [place] [address]36 Jul, [facility] [place] [facility] [address] [id number] [place] [address] Jul, [facility] [place] [facility] [address] [id number] [place] [address] 6534 Jun, [facility] [place] [facility] [address] [id number] [place] [address] 9610 Jun, [facility] [place] [facility] [address] [id number] [place] [address] 4430 Jun, [facility] [place] [facility] [address] [id number] [place] [address] 8616 Jun, [facility] [place] [facility] [address] [id number] [place] [address] 3305 Jun, [facility] [place] [facility] [address] [id number] [place] [address]- 6363 Jun, [facility] [place] [facility] [address] [id number] [place] [address]- 9358 May, [facility] [place] [facility] [address] [id number] [place] [address]- 8762 May, [facility] [place] [facility] [address] [id number] [place] [address]- 6091 May, [facility] [place] [facility] [address] [id number] [place] [address]- 8749 May, [facility] [place] [facility] [address] [id number] [place] [address]- 4405 May, [facility] [place] [facility] [address] [id number] [place] [address] May, [facility] [place] [facility] [address] [id number] [place] [address]- 4629 Apr, [facility] [place] [facility] [address] [id number] [place] [address] 5748 Apr, [facility] [place] [facility] [address] [id number] [place] [address] 9232 Mar, [facility] [place] [facility] [address] [id number] [place] [address]- 0190 Mar, [facility] [place] [facility] [address] [id number] [place] [address]- 3906 Mar, [facility] [place] [facility] [address] [id number] [place] [address]- 2541 30 Mar, 2014 [facility] [place] [address] [id number] [place] [address]- 254 Mar, [facility] [place] [facility] [address] [id number] [place] [address]- 3402 Mar, [facility] [address] [id number] [place] [address]- 6733 Jan, [facility] [address] [id number] [place] [address]- 8188 Jan, [facility] [place] [address] [id number] [place] [address]- 0309 Jan, [facility] [place] [address] [id number] [place] [address] 3329 Jan, [facility] [address] [id number] [place] [address]- 0886 Jan, [facility] [address] [id number] [place] [address]- 8684 Jan, [facility] [address] [id number] [place] [address]- 3714 Dec, [facility] [address] [id number] [place] [address]- 1823 Dec, [facility] [address] [id number] [place] [address]- 3307 Dec, [facility] [address] [id number] [place] [address]- 0639 Dec, [facility] [address] [id number] [place] [address] Dec, [facility] [place] [address] [id number] [place] [address]- 0654 Dec, [facility] [address] [id number] [place] [address]- 5370 Dec, [facility] [address] [id number] [place] [address]- 1767 Dec, [facility] [address] [id number] [place] [address]- 2247 Dec, [facility] [address] [id number] [place] [address]- 8719 Dec, [facility] [address] [id number] [place] [address]- 9636 Dec, [facility] [address] [id number] [place] [address]- 2556 Dec, [facility] [address] [id number] [place] [address]- 5217 Dec, [facility] [address] [id number] [place] [address]- 9031 Dec, [facility] [address] [id number] [place] [address]- 1528 Dec, [facility] [address] [id number] [place] [address]- 4671 Dec, [facility] [address] [id number] [place] [address]- 2480 October, [facility] [address] [id number] [place] [address]- 5180 October, [facility] [address] [id number] [place] [address]- 4678 October, [facility] [address] [id number] [place] [address]- 9512 October, [facility] [address] [id number] [place] [address]- 4956 October, [facility] [address] [id number] [place] [address]- 3402 October, [facility] [address] [id number] [place] [address] Oct, [facility] [facility] [address] [id number] [place] [address]- 0122 Oct, [facility] [address] [id number] [place] [address]- 4847 Oct, [facility] [address] [id number] [place] [address]- 6517 Oct, [facility] [address] [id number] [place] [address]- 1096 Oct, [facility] [address] [id number] [place] [address]- 4326 Oct, [facility] [address] [id number] [place] [address]- 2170 Aug, [facility] [address] [id number] [place] [address]- 2547 Aug, [facility] [address] [id number] [place] [address]- 7786 Aug, [facility] [address] [id number] [place] [address]- 0069 Aug, [facility] [address] [id number] [place] [address]- 8196 Jul, [facility] [address] [id number] [place] [address]- 9597 Jul, [facility] [address] [id number] [place] [address]- 5668 Jul, [facility] [address] [id number] [place] [address]- 8250 Jul, [facility] [address] [id number] [place] [address]- 2250 Jun, [facility] [address] [id number] [place] [address]- 9899 31 Jun, 2013 [facility] [address] [id number] [place] [address]- 2777 24 Jun, 2013 [facility] [address] [id number] [place] [address]- 0113 24 Jun, 2013 [facility] [address] [id number] [place] [address]- 8578 20 Jun, 2013 [facility] [address] [id number] [place] [address] 2546 18 Jun, 2013 [facility] [address] [id number] [place] [address]- 2179 Jun, [facility] [address] [id number] [place] [address]- 0770 Jun, [facility] [address] [id number] [address]- 8648 Jun, [facility] [address] [facility] [id number] [place] [address]- 8406 Jun, [facility] [address] [id number] [address]- 0929 Jun, [facility] [address] [id number] [place] [address]- 6522 May, [facility] [address] [id number] [address]- 0038 May, [facility] [address] [id number] [place] [address]- 3030 May, [facility] [address] [id number] [place] [address]- 7166 May, [facility] [address] [id number] [address]- 9938 May, [facility] [address] [id number] [place] [address]- 1278 May, [facility] [address] [id number] [place] [address]- 7898 May, [facility] [address] [id number] [place] [address]- 7950 Apr, [facility] [address] [id number] [place] [address]- 2944 Apr, [facility] [address] [id number] [place] [address]- 3429 Apr, [facility] [address] [id number] [address]- 2548 Apr, [facility] [address] [id number] [place] [address]- 3603 27 Mar, 2012 [facility] [address] [id number] [place] [address]- 6266 Mar, 2012 [facility] [address] [id number] [place] [address] 2546 Mar, [facility] [address] [id number] [place] [address] 2546 Mar, 2012 [facility] [address] [id number] [place] [address] 2548 04 Mar, 2013 [facility] [address] [id number] [place] [address]- 2969 Mar, [facility] [address] [id number] [place] [address]- 1196 Jan, [facility] [address] [id number] [place] [address]- 7894 Jan, [facility] [address] [id number] [place] [address]- 5305 Jan, [facility] [address] [id number] [place] [address]- 8349 Jan, [facility] [address] [id number] [place] [address]- 0246 Jan, [facility] [address] [id number] [place] [address] 2542 Dec, [facility] [address] [id number] [place] [address]- 254 Dec, [facility] [address] [id number] [place] [address]- 7330 Dec, [facility] [address] [id number] [place] [address]- 2543 Dec, [facility] [address] [id number] [place] [address]- 8831 Dec, [facility] [address] [id number] [place] [address]- 0669 Dec, [facility] [address] [id number] [place] [address]- 0143 Dec, [facility] [address] [id number] [place] [address]- 8476 Dec, [facility] [address] [id number] [place] [address]- 5049 October, [facility] [address] [id number] [place] [address]- 0196 October, [facility] [address] [id number] [place] [address]- 3096 October, [facility] [address] [id number] [place] [address]- 3506 Oct, [facility] [address] [id number] [place] [address]- 6585 Oct, [facility] [address] [id number] [place] [address]- 1831 Oct, [facility] [address] [id number] [place] [address]- 6582 Oct, [facility] [address] [id number] [place] [address]- 9901 Aug, [facility] [address] [id number] [place] [address]- 1405 Aug, [facility] [address] [id number] [place] [address]- 9948 05 Aug, 2012 [facility] [address] [id number] [place] [address]- 2053 Jul, [facility] [address] [id number] [place] [address]- 0899 08 May, 2012 [facility] [address] [id number] [address]- 3808 May, [facility] [address] [id number] [place] [address]- 7776 Apr, [facility] [address] [id number] [place] [address] Apr, [facility] [address] [id number] [place] [address]- 4494 Apr, [facility] [address] [id number] [place] [address]- 4899 Apr, [facility] [address] [id number] [place] [address]- 3307 Apr, [facility] [address] [id number] [place] [address]- 8991 Apr, [facility] [address] [id number] [place] [address]- 3216 Apr, [facility] [address] [id number] [place] [address]- 4546 Apr, [facility] [address] [id number] [place] [address]- 9385 Apr, [facility] [facility] [address] [id number] [place] [address]- 3101 Apr, [facility] [address] [id number] [place] [address]- 8964 Apr, [facility] [address] [id number] [place] [address]- 0862 Apr, [facility] [facility] [address] [id number] [place] [address]- 6899 Mar, [facility] [address] [id number] [place] [address]- 5549 Jan, [facility] [address] [id number] [place] [address]- 8885 Dec, [facility] [address] [id number] [place] [address]- 8909 October, [facility] [address] [id number] [place] [address]- 9101 Oct, [facility] [address] [id number] [place] [address]- 8056 Oct, [facility] [address] [id number] [place] [address]- 5526 Oct, [facility] [place] [facility] [address] [id number] [place] [address]- 9176 Aug, [facility] [address] [id number] [place] [address]- 9194 Aug, [facility] [address] [id number] [place] [address]- 2362 Aug, [facility] [address] [id number] [place] [address]- 5980 16 Aug, 2011 [facility] [address] [id number] [place] [address]- 5030 Aug, [facility] [address] [id number] [place] [address]- 8915 Aug, [facility] [address] [id number] [place] [address]- 3136 Jun, [facility] [address] [id number] [place] [address]- 6946 Apr, [facility] [address] [id number] [place] [address]- 6633 Jun, [facility] [place] [facility] [address] [id number] [place] [address]- 2546 Jun, [facility] [facility] [address] [id number] [place] [address]- 2546 May, [facility] [place] [facility] [address] [id number] [place] [address]- 2068 May, [facility] [address] [facility] [id number] [place] [address] Apr, [facility] [address] [facility] [id number] [place] [address]- 1056 13 Apr, 2009 IMMUNIZATIONS No Known Immunizations SOCIAL HISTORY Never Assessed REASON FOR VISIT Allergy injection(s) PLAN OF CARE Activity Details Follow Up 1 Week Reason: VITAL SIGNS MEDICATIONS Unknown Medications RESULTS No Results PROCEDURES Procedure Date Ordered Result Body Site IMMUNOTHERAPY, 2 OR MORE INJECTIONS 2018-01-26 N/A IMMUNOTHERAPY INJECTIONS January 26, 2018 INSTRUCTIONS MEDICATIONS ADMINISTERED No Known Medications MEDICAL (GENERAL) HISTORY Type Description Date Medical History Hypothyroid Medical History Asthma Medical History Migraine Headaches Medical History Depression Medical History ADHD Medical History GERD Medical History Allergic Rhinitis Medical History PCOS Surgical History Left wrist plate 2002 Surgical History 2004 Surgical History 2010 Surgical History EGD 2011 Surgical History Hiatal Hernia Repair and Fundoplication 2013 Surgical History 2014 Surgical History Wound Dehisance 2014 Hospitalization History see above surgeries Hospitalization History Anaphylactic shock-[facility] 08/23/16
--- OUTSIDE RECORDS SUMMARY | 2018-07-18 07:17 | XMS REPORT ---
Author Author BRANDY SAGAR [facility] Address [address] [place] [address] Care Team Providers Care Sugar Coating Hand Name Role Phone TEZ NAVAHANY Unavailable PROBLEMS Type Condition ICD9-CM Code IMA05-MU Code Onset Dates Condition Status SNOMED Code Problem Migraine with aura and without status migrainosus, not intractable G43.109 Active 0054371 Problem PCOS (polycystic ovarian syndrome) E28.2 Active 89217384 Problem Uncomplicated severe persistent asthma J45.50 Active 600438221 Problem Severe persistent asthma with exacerbation J45.51 Active 127670671 Problem Other elevated white blood cell (WBC) count D72.828 Active 923173550 Problem Multiple food allergies Z91.018 Active 606989749 Problem Pure hypercholesterolemia E78.00 Active 893839218 Problem Current chronic use of inhaled steroid Z79.51 Active 966017159 Problem Asthma exacerbation J45.901 Active 138965667 Problem ADD (attention deficit disorder) F90.0 Active 415814036 Problem Allergic rhinitis due to pollen J30.1 Active 48586528 Problem Vitamin D deficiency E55.9 Active 72418148 Problem Major depressive disorder, recurrent episode, mild F33.0 Active 123566496 Problem Acquired hypothyroidism E03.9 Active 712941084 Problem Gastroesophageal reflux disease without esophagitis K21.9 Active 462743755 ALLERGIES No Information ENCOUNTERS Encounter Location Date Diagnosis [facility] [id number] [address] Mar, [facility] [address] [address] Mar, Multiple food allergies Z91.018 [facility] [id number] [address] Jan, Allergic rhinitis due to pollen J30.1 [facility] [id number] [place] [address] 16951- 9418 Jan, [facility] [id number] [place] [address] 01303- 2110 Jan, Allergic reaction, initial encounter T78.40XA [facility] [id number] [place] [address] 94409- 8692 Dec, Allergic rhinitis due to pollen J30.1 [facility] [id number] [place] [address] 41453- 6928 Dec, [facility] [id number] [place] [address] 80215- 8009 Dec, Allergic rhinitis due to pollen J30.1 [facility] [id number] [place] [address] 20893- 1932 Dec, ADD (attention deficit disorder) F90.0 [place] [address] 77678- 6859 Dec, ADD (attention deficit disorder) F90.0 and Uncomplicated severe persistent asthma J45.50 [place] [id number] [place] [address] 46313- 8316 Dec, Allergic rhinitis due to pollen J30.1 [facility] [id number] [place] [address] 87760- 6659 Dec, [facility] [id number] [place] [address] 78047- 6246 October, Allergic rhinitis due to pollen J30.1 [facility] [id number] [place] [address] 51637- 3782 October, Allergic rhinitis due to pollen J30.1 [facility] [id number] [place] [address] 35823- 6815 Oct, [facility] [id number] [place] [address] 68232- 3126 Oct, Allergic rhinitis due to pollen J30.1 [place] [address] [place] [address] 22765- 6742 Oct, [place] [address] 08278- 2832 Oct, Allergic rhinitis due to pollen J30.1 [place] [address] 86525- 1756 13 Oct, 2017 Severe persistent asthma with exacerbation J45.51 and Pneumonia due to Haemophilus influenzae, unspecified laterality, unspecified part of lung J14 [place] [address] 78021- 7605 Oct, ADD (attention deficit disorder) F90.0 [place] [address] 04529- 5343 Aug, Haemophilus influenzae infection A49.2 [place] [address] 02349- 6311 Aug, Cough productive of purulent sputum R05 [place] [address] 45246- 4279 Aug, [place] [address] 91893- 9496 Aug, Pulmonary congestion R09.89 [place] [id number] [place] [address] 83522- 4203 Aug, Severe persistent asthma with exacerbation J45.51 ; Hiatal hernia K44.9 and Gastroesophageal reflux disease without esophagitis K21.9 [place] [address] [place] [address] 30556- 8356 Aug, Other elevated white blood cell (WBC) count D72.828 [place] [address] 02599- 6207 Aug, Uncomplicated severe persistent asthma J45.50 [place] [address] 93316- 4420 Aug, Pure hypercholesterolemia E78.00 ; Uncomplicated severe persistent asthma J45.50 and Acquired hypothyroidism E03.9 [place] [address] 42158- 7254 Aug, Acquired hypothyroidism E03.9 ; Pure hypercholesterolemia E78.00 and Uncomplicated severe persistent asthma J45.50 [place] [address] 12055- 5416 Aug, Allergic rhinitis due to pollen J30.1 [place] [address] 84418- 3263 Aug, Allergic rhinitis due to pollen J30.[address] 40272- 7503 Aug, [place] [address] [id number] Jul, Pharyngitis, unspecified etiology J02.9 and Lymphadenopathy R59.1 [place] [address] 73498- 4368 Jul, ADD (attention deficit disorder) F90.[address] 85656- 0388 Jul, Allergic rhinitis due to pollen J30.[address] 61173- 6100 Jul, Dental examination Z01.20 [place] [address] 96055- 6019 Jun, Cough productive of purulent sputum R05 [address] 62487- 9962 Jun, Allergic rhinitis due to pollen J30.1 [place] [address] 64399- 5079 Jun, [place] [address] 43757- 2240 Jun, Allergic rhinitis due to pollen J30.1 [place] [address] [place] [address] 78200- 6093 Jun, Allergic rhinitis due to pollen J30.1 [place] [address] [place] [address] 09107- 6344 May, Allergic rhinitis due to pollen J30.1 [place] [address] [place] [address] 02837- 3285 May, Pneumonia due to Haemophilus influenzae, unspecified laterality, unspecified part of lung J14 [place] [address] [place] [address] 087135- 7463 May, Allergic rhinitis due to pollen J30.1 [place] [address] [place] [address] 00976- 8811 May, Other adverse food reactions, not elsewhere classified, initial encounter T78.1XXA and Pneumonia due to Haemophilus influenzae, unspecified laterality, unspecified part of lung J14 [place] [address] [place] [address] 89788- 3089 May, Pneumonia due to Haemophilus influenzae, unspecified laterality, unspecified part of lung J14 [place] [address] [place] [address] 28956- 5116 May, Multiple food allergies Z91.018 ; Uncomplicated severe persistent asthma J45.50 ; Cough productive of purulent sputum R05 and Uses central nervous system stimulants F15.90 [place] [address] [place] [address] 17651- 8417 Apr, Allergic rhinitis due to pollen J30.1 [place] [address] [place] [address] 74335- 8283 Apr, Allergic rhinitis due to pollen J30.1 [place] [address] [place] [address] 62014- 0818 Apr, Allergic rhinitis due to pollen J30.1 [place] [address] [place] [address] 40425- 7770 Apr, ADD (attention deficit disorder) F90.0 [place] [address] [place] [address] 10196- 6541 28 Mar, 2017 Allergic rhinitis due to pollen J30.1 [place] [address] 57659- 2796 21 Mar, 2017 Encounter for immunization Z23 [place] [address] 42361- 6309 19 Mar, 2017 [place] [address] 22651- 1415 14 Mar, 2017 Allergic rhinitis due to pollen J30.1 [place] [address] [place] [address] 21970- 4446 07 Mar, 2017 Allergic rhinitis due to pollen J30.1 [place] [address] [place] [address] 79058- 2087 Jan, Allergic rhinitis due to pollen J30.1 [place] [address] 29060- 2156 Jan, Allergic rhinitis due to pollen J30.1 [place] [address] [place] [address] 68426- 5999 Dec, Uncomplicated severe persistent asthma J45.50 [place] [address] [place] [address] 78006- 4386 Dec, Allergic rhinitis due to pollen J30.1 [place] [address] [place] [address] 55096- 5984 Dec, Allergic rhinitis due to pollen J30.1 [place] [address] [place] [address] 88420- 3189 Dec, Allergic rhinitis due to pollen J30.1 [place] [address] 27391- 3693 Dec, ADD (attention deficit disorder) F90.0 [place] [address] [place] [address] 67829- 2516 Dec, Allergic rhinitis due to pollen J30.1 [place] [address] [place] [address] 28937- 9220 Dec, Visit for TB skin test Z11.1 and Screening for tuberculosis Z11.1 [place] [address] [place] [address] 86234- 3649 Dec, Uncomplicated severe persistent asthma J45.50 ; Palpitations R00.2 ; Pericardial effusion (noninflammatory) I31.3 and Chest discomfort R07.89 [place] [address] [place] [address] 76647- 2496 Dec, Allergic rhinitis due to pollen J30.1 [place] [address] [place] [address] 35680- 8174 Dec, Chronic cough R05 [place] [address] [place] [address] 72285- 7354 Dec, [place] [address] [place] [address] 48892- 9187 Dec, Allergic rhinitis due to pollen J30.1 [place] [address] [place] [address] 94156- 1583 Dec, Allergic rhinitis due to pollen J30.1 [place] [address] [place] [address] 89686- 4894 Dec, Chronic cough R05 [place] [address] [place] [address] 80128- 0600 October, Allergic rhinitis due to pollen J30.1 [place] [address] [place] [address] 30808- 9331 October, Allergic rhinitis due to pollen J30.1 [address] [place] [place] [address]- 6549 October, [address] [address] [place] [address] 87450- 6317 October, Asthma exacerbation J45.901 [address] [address] [place] [address] 22504- 5490 October, Asthma exacerbation J45.901 and Current chronic use of inhaled steroid Z79.51 [address] [address] 74994- 9936 October, Uncomplicated severe persistent asthma J45.50 [address] [address] 25353- 2293 October, Allergic rhinitis due to pollen J30.1 [place] [address] [place] [address] 96320- 7637 Oct, [address] [address] 90175- 2323 Oct, Asthma exacerbation J45.901 and Sputum production R05 [place] [address] [place] [address] 31283- 9935 Oct, Asthma exacerbation J45.901 [place] [address] [place] [address] 58431- 5584 Oct, ADD (attention deficit disorder) F90.0 [place] [address] [place] [address] 51157- 0268 Oct, ADD (attention deficit disorder) F90.0 [place] [address] [place] [address] 50128- 5668 Aug, Allergic rhinitis due to pollen J30.1 [place] [address] [place] [address] 05305- 7430 Aug, Atypical pneumonia J18.9 [place] [address] [place] [address] 35228- 2277 Aug, Allergic rhinitis due to pollen J30.1 [place] [address] 63594- 2772 Aug, Acquired hypothyroidism E03.9 [address] [address] 81408- 5350 Aug, Multiple food allergies Z91.018 ; Elevated blood pressure reading R03.0 and Anaphylaxis, subsequent encounter T78.2XXD [place] [address] [id number] Aug, [address] [address] 22561- 0608 Aug, Anaphylaxis, initial encounter T78.2XXA [place] [address] 33778- 0226 Aug, Allergic rhinitis due to pollen J30.1 [place] [address] 40347- 9361 Aug, Dental examination Z01.20 [place] [address] 95027- 7276 Aug, Allergic rhinitis due to pollen J30.1 [place] [address] 72504- 7610 Aug, Acquired hypothyroidism E03.9 and Pure hypercholesterolemia E78.00 [place] [address] 00431- 5537 Aug, ADD (attention deficit disorder) F90.0 ; Acquired hypothyroidism E03.9 and Pure hypercholesterolemia E78.00 [place] [address] 00983- 0189 Aug, Asthma exacerbation J45.901 [place] [address] 15387- 6165 Jul, Allergic rhinitis due to pollen J30.1 [place] [address] [place] [address]- 9069 Jul, Allergic rhinitis due to pollen J30.1 [facility] [address] [place] [address] 99797- 5271 Jul, [facility] [address] [place] [address] 94266- 8767 Jul, Allergic rhinitis due to pollen J30.1 [facility] [address] [place] [address] 46251- 2527 Jul, Other secured entrance monitor (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 and ADD ( attention deficit disorder) F90.0 [place] [address] [place] [address] 07723- 9017 Jul, Other usp (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 and ADD ( attention deficit disorder) F90.0 [place] [address] [place] [address] 71961- 8308 Jul, [facility] [address] [place] [address] 00674- 7107 Jun, Allergic rhinitis due to pollen J30.1 [facility] [address] [place] [address] 95704- 4027 Jun, Allergic rhinitis due to pollen J30.1 [facility] [address] [place] [address] 39577- 3664 Jun, [facility] [address] [place] [address] 66961- 7257 May, Allergic rhinitis due to pollen J30.1 [facility] [address] [place] [address] 73372- 9519 May, Allergic rhinitis due to pollen J30.1 [facility] [address] [place] [address] 10370- 1058 Apr, Allergic rhinitis due to pollen J30.1 [facility] [address] [place] [address] 10732- 2621 Apr, Allergic rhinitis due to pollen J30.1 [facility] [address] [place] [address] 24861- 2890 Apr, Encounter for immunization Z23 [facility] [id number] [place] [address] 06885- 4730 Apr, [facility] [address] [place] [address] 23506- 9335 Mar, Allergic rhinitis due to pollen J30.1 [facility] [address] [place] [address] 01753- 6753 Mar, Multiple allergies Z88.9 [place] [address] [place] [address] 66533- 2260 Mar, Candidal vaginitis B37.3 [place] [address] [place] [address] 13050- 2504 Mar, Allergic rhinitis due to pollen J30.1 [facility] [address] [place] [address] 93847- 7883 Jan, Asthma exacerbation J45.901 ; Fatigue, unspecified type R53.83 and Community acquired pneumonia J18.9 [facility] [address] [place] [address] [id number] Jan, Encounter for dental examination Z01.20 [facility] [address] [place] [address] 62929- 1041 Jan, Allergic rhinitis due to pollen J30.1 [facility] [address] [place] [address] 16574- 2618 Dec, Allergic rhinitis due to pollen J30.1 [facility] [address] [place] [address] 98674- 5577 Dec, [facility] [address] [place] [address] 12094- 3710 Dec, Allergic rhinitis due to pollen J30.1 [facility] [address] [address]- 5343 Dec, [facility] [address] [address]- 3291 Dec, [facility] [address], [place] [address]- 4434 Dec, [facility] [address] [address]- 4696 Dec, Allergic rhinitis due to pollen J30.1 [facility] [address] [address]- 8083 Dec, [facility] [address] [address]- 7305 Dec, [facility] [address] [place] [address] 73464- 8906 Dec, Allergic rhinitis due to pollen J30.1 [facility] [address] [address]- 3386 October, Allergic rhinitis due to pollen J30.1 [facility] [address] [address]- 5600 October, Allergic rhinitis due to pollen J30.1 [facility] [address] [address]- 8133 October, [facility] [address] [address]- 6827 October, [facility] [address] [address]- 1030 October, ADD (attention deficit disorder) F90.0 ; Major depressive disorder, recurrent episode, mild F33.0 and Uncomplicated severe persistent asthma J45.50 [facility] [address] [address]- 9252 Oct, Allergic rhinitis due to pollen J30.1 [facility] [address] [place] [address] 98066- 9160 14 Oct, 2015 ADD (attention deficit disorder) F90.0 [facility] [address] [place] [address] 85211- 9813 Oct, Allergic rhinitis due to pollen 477.0 [facility] [address] [place] [address] 76138- 7192 Aug, Allergic rhinitis due to pollen 477.0 [facility] [address] [place] [address] 18995- 0933 Aug, 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 [place] [address] [place] [address] 26169- 1706 Aug, [facility] [address] [place] [address] 92173- 2457 Aug, Allergic rhinitis due to pollen 477.0 [place] [address] [place] [address] 13970- 1307 Aug, Allergic rhinitis due to pollen 477.0 [place] [address] [place] [address] 68021- 9165 Aug, Allergic rhinitis due to pollen 477.0 [facility] [address] [place] [address] 98289- 0445 Aug, Exposure to influenza Z20.828 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 [place] [address] [place] [address] 30051- 7179 Jul, [place] [address] 94022- 3471 Jul, Allergic rhinitis due to pollen 477.0 [place] [address] 41708- 9137 Jul, [place] [address] 15947- 2688 Jul, Allergic rhinitis due to pollen 477.0 [place] [address] 35658- 0295 Jun, ADD (attention deficit disorder) F90.0 ; Acquired hypothyroidism E03.9 ; PCOS (polycystic ovarian syndrome) E28.2 ; Polyarthralgia M25.50 and On stimulant medication Z79.899 [place] [address] 99378- 8094 Apr, Encounter for immunization Z23 [place] [address] 59999- 1049 16 Mar, 2015 Allergic rhinitis due to pollen 477.0 [place] [address] [place] [address]- [address]27 14 Mar, 2015 Influenza vaccine administered V04.81 [place] [address] [place] [id number] [place] [address]- [address]81 Mar, [place] [address] [place] [id number] [place] [address]43- 4683 Jan, Allergic rhinitis due to pollen 477.0 [place] [address] [place] [id number] [place] [address]297- [address] Jan, Allergic rhinitis due to pollen 477.0 [place] [address] [address] Jan, Allergic rhinitis due to pollen 477.0 [facility] [id number] [id number] Jan, Dental examination V72.2 [facility] [id number] [address] Dec, Allergic rhinitis due to pollen 477.0 [facility] [id number] [place] [address]- [address] October, [facility] [id number] [address] Oct, [facility] [address] [place] [id number] [place] [address] 30682- 7029 Oct, [facility] [address] [place] [id number] [place] [address]- [address] Aug, [facility] [address] [place] [id number] [place] [address]- [address] Aug, [facility] [id number] [address] Aug, [facility] [id number] [address] Aug, [facility] [facility] [id number] [address] Aug, [facility] [id number] [address] Aug, [facility] [id number] [address] Aug, [facility] [id number] [address] Aug, [facility] [id number], [place] [address] Jul, [facility] [id number] [address] Jul, [facility] [place] [facility] [address] [id number] [place] [address] Jul, [facility] [place] [facility] [address] [id number] [place] [address]90 Jul, [facility] [place] [facility] [address] [id number] [place] [address] 4595 Jul, [facility] [place] [facility] [address] [id number] [place] [address]- [address] Jul, [facility] [place] [facility] [address] [id number] [place] [address] 7863 Jul, [facility] [place] [facility] [address] [id number] [place] [address]- 9979 Jul, [facility] [place] [facility] [address] [id number] [place] [address]- 7588 Jul, [facility] [place] [facility] [address] [id number] [place] [address]- 1993 Jul, [facility] [place] [facility] [address] [id number] [place] [address]- 9313 Jul, [facility] [place] [facility] [address] [id number] [place] [address]- 9145 Jun, [facility] [place] [facility] [address] [id number] [place] [address]- 8527 Jun, [facility] [place] [facility] [address] [id number] [place] [address]- 7659 Jun, [facility] [place] [facility] [address] [id number] [place] [address]- 6520 Jun, [facility] [place] [facility] [address] [id number] [place] [address]- 7949 Jun, [facility] [place] [facility] [address] [id number] [place] [address]- 2759 Jun, [facility] [place] [facility] [address] [id number] [place] [address]- 1056 May, [facility] [place] [facility] [address] [id number] [place] [address]- 1782 May, [facility] [place] [facility] [address] [id number] [place] [address]- 2310 May, [facility] [place] [facility] [address] [id number] [place] [address]- 6461 May, [facility] [place] [facility] [address] [id number] [place] [address]- 8598 May, [facility] [place] [facility] [address] [id number] [place] [address]- 9982 May, [facility] [place] [facility] [address] [id number] [place] [address]- 7288 Apr, [facility] [place] [facility] [address] [id number] [place] [address]- 1384 Apr, [facility] [place] [facility] [address] [id number] [place] [address]- 9317 Mar, [facility] [place] [facility] [address] [id number] [place] [address]- 9646 Mar, [facility] [place] [facility] [address] [id number] [place] [address]- 3905 Mar, [facility] [place] [facility] [address] [id number] [place] [address]- 2547 30 Mar, 2014 [facility] [place] [facility] [address] [id number] [place] [address]- 2544 Mar, [facility] [place] [facility] [address] [id number] [place] [address]- 1046 Mar, [facility] [place] [facility] [address] [id number] [place] [address]- 3068 Jan, [facility] [place] [facility] [address] [id number] [place] [address]- 0285 Jan, [facility] [place] [facility] [address] [id number] [place] [address]- 7594 Jan, [facility] [place] [facility] [address] [id number] [place] [address]- 7336 Jan, [facility] [place] [facility] [address] [id number] [place] [address]- 9166 Jan, [facility] [place] [facility] [address] [id number] [place] [address]- 2649 Jan, [facility] [place] [facility] [address] [id number] [place] [address]- 0209 Dec, [facility] [place] [facility] [address] [id number] [place] [address]- 0165 Dec, [facility] [place] [facility] [address] [id number] [place] [address]- 7916 Dec, [facility] [place] [facility] [address] [id number] [place] [address]- 7283 Dec, [facility] [place] [facility] [address] [id number] [place] [address]- 7144 Dec, [facility] [place] [facility] [address] [id number] [place] [address]- 0876 Dec, [facility] [place] [facility] [address] [id number] [place] [address]- 8360 Dec, [facility] [place] [facility] [address] [id number] [place] [address]- 2139 Dec, [facility] [place] [facility] [address] [id number] [place] [address]- 1254 Dec, [facility] [place] [facility] [address] [id number] [place] [address]- 8558 Dec, [facility] [place] [facility] [address] [id number] [place] [address]- 1722 Dec, [facility] [place] [facility] [address] [id number] [place] [address]- 4663 Dec, [facility] [place] [facility] [address] [id number] [place] [address]- 2069 Dec, [facility] [place] [facility] [address] [id number] [place] [address]- 6900 Dec, [facility] [place] [facility] [address] [id number] [place] [address]- 1781 Dec, [facility] [place] [facility] [address] [id number] [place] [address]- 3885 Dec, [facility] [place] [facility] [address] [id number] [place] [address]- 2602 October, [facility] [place] [facility] [address] [id number] [place] [address]- 0908 October, [facility] [place] [facility] [address] [id number] [place] [address]- 5257 October, [facility] [place] [facility] [address] [id number] [place] [address]- 8045 October, [facility] [place] [facility] [address] [id number] [place] [address]- 5342 October, [facility] [place] [facility] [address] [id number] [place] [address]- 9364 October, [facility] [place] [facility] [address] [id number] [place] [address]- 4011 Oct, [facility] [place] [facility] [address] [id number] [place] [address]- 1635 Oct, [facility] [place] [facility] [address] [id number] [place] [address]- 8549 Oct, [facility] [place] [facility] [address] [id number] [place] [address]- 6950 Oct, [facility] [place] [facility] [address] [id number] [place] [address]- 9065 Oct, [facility] [place] [facility] [address] [id number] [place] [address]- 4518 Oct, [facility] [place] [facility] [address] [id number] [place] [address]- 1458 Aug, [facility] [place] [facility] [address] [id number] [place] [address]- 9517 Aug, [facility] [place] [facility] [address] [id number] [place] [address]- 3706 Aug, [facility] [place] [facility] [address] [id number] [place] [address]- 9607 Aug, [facility] [place] [facility] [address] [id number] [place] [address]- 5152 Jul, [facility] [place] [facility] [address] [id number] [place] [address]- 4527 Jul, [facility] [place] [facility] [address] [id number] [place] [address]- 6997 Jul, [facility] [place] [facility] [address] [id number] [place] [address]- 8145 Jul, [facility] [place] [facility] [address] [id number] [place] [address]- 0085 Jun, [facility] [place] [facility] [address] [id number] [place] [address]- 7858 31 Jun, 2013 [facility] [place] [facility] [address] [id number] [place] [address]- 3869 24 Jun, 2013 [facility] [place] [facility] [address] [id number] [place] [address]- 8600 24 Jun, 2013 [facility] [place] [facility] [address] [id number] [place] [address]- 6703 20 Jun, 2013 [facility] [place] [facility] [address] [id number] [place] [address] 2546 18 Jun, 2013 [facility] [place] [facility] [address] [id number] [place] [address]- 5751 Jun, [facility] [place] [facility] [address] [id number] [place] [address]- 7076 Jun, [facility] [place] [facility] [address] [id number], [place] [address] Jun, [facility] [place] [facility] [address] [facility] [id number] [place] [address]- 1760 Jun, [facility] [place] [facility] [address] [id number], [place] [address]- 8539 Jun, [facility] [place] [facility] [address] [id number] [place] [address]- 7694 May, [facility] [place] [facility] [address] [id number], [place] [address]- 6198 May, [facility] [place] [facility] [address] [id number], [place] [address]- 8254 May, [facility] [place] [facility] [address] [id number], [place] [address]- 6796 May, [facility] [place] [facility] [address] [id number], [place] [address]- 5898 May, [facility] [place] [facility] [address] [id number], [place] [address]- 3540 May, [facility] [place] [facility] [address] [id number], [place] [address]- 3455 May, [facility] [place] [facility] [address] [id number], [place] [address]- 9948 Apr, [facility] [place] [facility] [address] [id number], [place] [address]- 3558 Apr, [facility] [place] [facility] [address] [id number], [place] [address]- 6267 Apr, [facility] [place] [facility] [address] [id number], [place] [address]- 2540 Apr, [facility] [place] [facility] [address] [id number] [place] [address]- 7897 27 Mar, 2012 [facility] [place] [facility] [address] [id number] [place] [address]- 8196 Mar, 2012 [facility] [place] [facility] [address] [id number] [place] [address] 2546 Mar, [facility] [place] [facility] [address] [id number] [place] [address] 2546 Mar, 2012 [facility] [place] [facility] [address] [id number] [place] [address] 2544 04 Mar, 2013 [facility] [place] [facility] [address] [id number] [place] [address]- 1070 Mar, [facility] [place] [facility] [address] [id number] [place] [address]- 2419 Jan, [facility] [place] [facility] [address] [id number] [place] [address]- 2391 Jan, [facility] [place] [facility] [address] [id number] [place] [address]- 2157 Jan, [facility] [place] [facility] [address] [id number] [place] [address]- 9224 Jan, [facility] [place] [facility] [address] [id number] [place] [address]- 0743 Jan, [facility] [place] [facility] [address] [id number] [place] [address] 254 Dec, [facility] [place] [facility] [address] [id number] [place] [address]- 2542 Dec, [facility] [place] [facility] [address] [id number] [place] [address]- 1705 Dec, [facility] [place] [facility] [address] [id number] [place] [address]- 254 Dec, [facility] [place] [facility] [address] [id number] [place] [address]- 6607 Dec, [facility] [place] [facility] [address] [id number] [place] [address]- 3015 Dec, [facility] [address] [id number] [place] [address]- 4349 Dec, [facility] [address] [id number] [place] [address]- 4761 Dec, [facility] [address] [id number] [place] [address]- 8165 October, [facility] [address] [id number] [place] [address]- 3943 October, [facility] [address] [id number] [place] [address]- 2396 October, [facility] [address] [id number] [place] [address]- 3364 Oct, [facility] [address] [id number] [place] [address]- 6523 Oct, [facility] [address] [id number] [place] [address]- 5817 Oct, [facility] [address] [id number] [place] [address]- 1770 Oct, [facility] [address] [id number] [place] [address]- 9837 Aug, [facility] [address] [id number] [place] [address]- 7259 Aug, [facility] [address] [id number] [place] [address]- 4296 05 Aug, 2012 [facility] [place] [facility] [address] [id number] [place] [address]- 4549 Jul, [facility] [address] [id number] [place] [address]- 8007 08 May, 2012 [facility] [address] [id number], [place] [address]- 3037 May, [facility] [place] [facility] [address] [id number] [place] [address]- 9599 Apr, [facility] [place] [facility] [address] [id number] [place] [address] Apr, [facility] [place] [facility] [address] [id number] [place] [address]- 4572 Apr, [facility] [place] [facility] [address] [id number] [place] [address]- 1933 Apr, [facility] [place] [facility] [address] [id number] [place] [address]- 9385 Apr, [facility] [place] [facility] [address] [id number] [place] [address]- 3397 Apr, [facility] [place] [facility] [address] [id number] [place] [address]- 3447 Apr, [facility] [place] [facility] [address] [id number] [place] [address]- 1498 Apr, [facility] [place] [facility] [address] [id number] [place] [address]- 9202 Apr, [facility] [place] [facility] [address] [id number] [place] [address]- 5978 Apr, [facility] [place] [facility] [address] [id number], [place] [address]- 2454 Apr, [facility] [place] [facility] [address] [id number], [place] [address]- 2730 Apr, [facility] [place] [facility] [address] [id number] [place] [address]- 3139 Mar, [facility] [place] [facility] [address] [id number] [place] [address]- 8000 Jan, [facility] [place] [facility] [address] [id number] [place] [address]- 7924 Dec, [facility] [place] [facility] [address] [id number] [place] [address]- 5356 October, [facility] [address] [id number] [place] [address]- 1893 Oct, [facility] [place] [facility] [address] [id number] [place] [address]- 7846 Oct, [facility] [address] [id number] [place] [address]- 3880 Oct, [facility] [place] [facility] [address] [id number] [place] [address]- 4736 Aug, [facility] [address] [id number] [place] [address]- 0112 Aug, [facility] [place] [facility] [address] [id number] [place] [address]- 8255 Aug, [facility] [address] [id number] [place] [address]- 0655 16 Aug, 2011 [facility] [address] [id number] [place] [address]- 7416 Aug, [facility] [address] [id number] [place] [address]- 6330 Aug, [facility] [address] [id number] [place] [address]- 9866 Jun, [facility] [address] [id number] [place] [address]- 7246 Apr, [facility] [place] [facility] [address] [id number] [place] [address]- 2691 Jun, [facility] [place] [facility] [address] [id number] [place] [address]- 2546 Jun, [facility] [place] [facility] [address] [id number] [place] [address]- 2546 May, [facility] [place] [facility] [address] [id number] [place] [address]- 1576 May, [facility] [address] [facility] [id number] [place] [address]- 8387 Apr, [facility] [address] [facility] [id number] [place] [address]- 4686 13 Apr, 2009 IMMUNIZATIONS No Known Immunizations SOCIAL HISTORY Never Assessed REASON FOR VISIT Allergy injection(s) PLAN OF CARE VITAL SIGNS MEDICATIONS Unknown Medications RESULTS No Results PROCEDURES Procedure Date Ordered Result Body Site IMMUNOTHERAPY, 2 OR MORE INJECTIONS 2018-01-11 N/A IMMUNOTHERAPY INJECTIONS January 11, 2018 INSTRUCTIONS MEDICATIONS ADMINISTERED No Known Medications MEDICAL (GENERAL) HISTORY Type Description Date Medical History Hypothyroid Medical History Asthma Medical History Migraine Headaches Medical History Depression Medical History ADHD Medical History GERD Medical History Allergic Rhinitis Medical History PCOS Surgical History Left wrist plate 2002 Surgical History 2004 Surgical History 2009 Surgical History EGD 2011 Surgical History Hiatal Hernia Repair and Fundoplication 2013 Surgical History 2014 Surgical History Wound Dehisance 2014 Hospitalization History see above surgeries Hospitalization History Anaphylactic shock-[facility] 08/23/16
--- OUTSIDE RECORDS SUMMARY | 2018-07-18 07:18 | XMS REPORT ---
Author Author PRETTY TABOR [facility] Address [address] [place] [address] Care Team Providers Care Ethnic Origins Teacher Name Role Phone PRETTY TABOR Unavailable PROBLEMS Type Condition ICD9-CM Code XQX20-XN Code Onset Dates Condition Status SNOMED Code Problem Migraine with aura and without status migrainosus, not intractable G43.109 Active 6731491 Problem PCOS (polycystic ovarian syndrome) E28.2 Active 52933965 Problem Uncomplicated severe persistent asthma J45.50 Active 179667623 Problem Severe persistent asthma with exacerbation J45.51 Active 042405168 Problem Other elevated white blood cell (WBC) count D72.828 Active 411496325 Problem Multiple food allergies Z91.018 Active 823989699 Problem Pure hypercholesterolemia E78.00 Active 782416636 Problem Current chronic use of inhaled steroid Z79.51 Active 298538612 Problem Asthma exacerbation J45.901 Active 782702684 Problem ADD (attention deficit disorder) F90.0 Active 395900298 Problem Allergic rhinitis due to pollen J30.1 Active 63440650 Problem Vitamin D deficiency E55.9 Active 48893422 Problem Major depressive disorder, recurrent episode, mild F33.0 Active 406243274 Problem Acquired hypothyroidism E03.9 Active 742483478 Problem Gastroesophageal reflux disease without esophagitis K21.9 Active 251244101 ALLERGIES No Information ENCOUNTERS Encounter Location Date Diagnosis [facility] [address] [address] Jan, Allergic rhinitis due to pollen J30.1 [facility] [address] [address] Jan, [facility] [address], [place] [address] Jan, Allergic reaction, initial encounter T78.40XA [facility] [id number] [place] [address] 86855- 5655 Dec, Allergic rhinitis due to pollen J30.1 [facility] [id number] [place] [address] 14981- 9144 Dec, [facility] [id number] [place] [address] 04814- 9592 Dec, Allergic rhinitis due to pollen J30.1 [facility] [id number] [place] [address] 60492- 8486 Dec, ADD (attention deficit disorder) F90.0 [facility] [id number] [place] [address] 89833- 3234 Dec, ADD (attention deficit disorder) F90.0 and Uncomplicated severe persistent asthma J45.50 [facility] [id number] [place] [address] 43777- 9845 Dec, Allergic rhinitis due to pollen J30.1 [facility] [id number] [place] [address] 01644- 7624 Dec, [facility] [id number] [place] [address] 45265- 1549 October, Allergic rhinitis due to pollen J30.1 [facility] [id number] [place] [address] 18461- 0078 October, Allergic rhinitis due to pollen J30.1 [facility] [address] [place] [address] 47100- 4499 Oct, [facility] [id number] [place] [address] 31368- 4784 Oct, Allergic rhinitis due to pollen J30.1 [facility] [id number] [place] [address] 60046- 4739 Oct, [facility] [address] [place] [address] 93844- 4874 Oct, Allergic rhinitis due to pollen J30.1 [place] [address] [place] [address] 64726- 4243 13 Oct, 2017 Severe persistent asthma with exacerbation J45.51 and Pneumonia due to Haemophilus influenzae, unspecified laterality, unspecified part of lung J14 [facility] [id number] [place] [address] 44479- 3072 10 Oct, 2017 ADD (attention deficit disorder) F90.0 [facility] [facility] [address] 29768- 4536 12 Aug, 2017 Haemophilus influenzae infection A49.2 [facility] [facility] [address] 38955- 9817 09 Aug, 2017 Cough productive of purulent sputum R05 [facility] [id number] [place] [address] 55013- 0837 08 Aug, 2017 [place] [facility] [address] 21687- 1535 08 Aug, 2017 Pulmonary congestion R09.89 [facility] [id number] [place] [address] 41362- 9618 07 Aug, 2017 Severe persistent asthma with exacerbation J45.51 ; Hiatal hernia K44.9 and Gastroesophageal reflux disease without esophagitis K21.9 [facility] [id number] [place] [address] 91885- 3002 Aug, Other elevated white blood cell (WBC) count D72.828 [facility] [id number] [place] [address] 68727- 2754 Aug, Uncomplicated severe persistent asthma J45.50 [facility] [address] 203510- 5196 Aug, Pure hypercholesterolemia E78.00 ; Uncomplicated severe persistent asthma J45.50 and Acquired hypothyroidism E03.9 [facility] [id number] [place] [address] 79389- 7735 Aug, Acquired hypothyroidism E03.9 ; Pure hypercholesterolemia E78.00 and Uncomplicated severe persistent asthma J45.50 [facility] [id number] [place] [address] 03304- 6329 15 Aug, 2017 Allergic rhinitis due to pollen J30.1 [facility] [facility] [address] 13278- 2008 08 Aug, 2017 Allergic rhinitis due to pollen J30.1 [facility] [facility] [address] 12877- 3451 Aug, [place] [address] [id number] Jul, Pharyngitis, unspecified etiology J02.9 and Lymphadenopathy R59.1 [facility] [facility] [address] 23250- 0659 Jul, ADD (attention deficit disorder) F90.[address] 03132- 9922 Jul, Allergic rhinitis due to pollen J30.1 [facility] [facility] [address] 41623- 3835 Jul, Dental examination Z01.[address] 05517- 9046 Jun, Cough productive of purulent sputum R05 [place] [id number] [place] [address] 03044- 3933 Jun, Allergic rhinitis due to pollen J30.1 [facility] [id number] [place] [address] 91446- 9046 Jun, [address] 11678- 4660 Jun, Allergic rhinitis due to pollen J30.1 [facility] [id number] [place] [address] 88299- 5403 Jun, Allergic rhinitis due to pollen J30.1 [facility] [id number] [place] [address] 44924- 4661 May, Allergic rhinitis due to pollen J30.1 [facility] [id number] [place] [address] 35971- 5541 May, Pneumonia due to Haemophilus influenzae, unspecified laterality, unspecified part of lung J14 [facility] [id number] [place] [address] 11435- 5674 May, Allergic rhinitis due to pollen J30.1 [facility] [id number] [place] [address] 11754- 3663 May, Other adverse food reactions, not elsewhere classified, initial encounter T78.1XXA and Pneumonia due to Haemophilus influenzae, unspecified laterality, unspecified part of lung J14 [place] [id number] [place] [address] 58803- 8484 May, Pneumonia due to Haemophilus influenzae, unspecified laterality, unspecified part of lung J14 [place] [id number] [place] [address] 56848- 4494 May, Multiple food allergies Z91.018 ; Uncomplicated severe persistent asthma J45.50 ; Cough productive of purulent sputum R05 and Uses central nervous system stimulants F15.90 [facility] [facility] [id number] [place] [address] 80856- 1430 Apr, Allergic rhinitis due to pollen J30.1 [facility] [id number] [place] [address] 34530- 5328 Apr, Allergic rhinitis due to pollen J30.1 [facility] [id number] [place] [address] 06615- 1642 Apr, Allergic rhinitis due to pollen J30.1 [facility] [facility] [id number] [place] [address] 93578- 2440 Apr, ADD (attention deficit disorder) F90.0 [place] [address] 42569- 9565 Mar, Allergic rhinitis due to pollen J30.1 [facility] [address] [place] [address] 78750- 9668 Mar, Encounter for immunization Z23 [facility] [id number] [place] [address] 38430- 7849 19 Mar, 2017 [facility] [id number] [place] [address] 67224- 7801 14 Mar, 2017 Allergic rhinitis due to pollen J30.1 [facility] [id number] [place] [address] 46067- 1814 Mar, Allergic rhinitis due to pollen J30.1 [facility] [facility] [id number] [place] [address] 52830- 6864 Jan, Allergic rhinitis due to pollen J30.1 [facility] [id number] [place] [address] 39976- 9121 Jan, Allergic rhinitis due to pollen J30.1 [facility] [facility] [id number] [place] [address] 07117- 9786 Dec, Uncomplicated severe persistent asthma J45.50 [facility] [facility] [id number] [place] [address] 25631- 5048 Dec, Allergic rhinitis due to pollen J30.1 [place] [address] [place] [address] 92120- 6690 Dec, Allergic rhinitis due to pollen J30.1 [facility] [id number] [place] [address] 34542- 9681 Dec, Allergic rhinitis due to pollen J30.1 [facility] [id number] [place] [address] 60617- 8873 Dec, ADD (attention deficit disorder) F90.0 [facility] [address] [place] [address] 76003- 2887 Dec, Allergic rhinitis due to pollen J30.1 [place] [id number] [place] [address] 59680- 5428 Dec, Visit for TB skin test Z11.1 and Screening for tuberculosis Z11.1 [place] [id number] [place] [address] 37920- 3022 Dec, Uncomplicated severe persistent asthma J45.50 ; Palpitations R00.2 ; Pericardial effusion (noninflammatory) I31.3 and Chest discomfort R07.89 [place] [facility] [id number] [place] [address] 50794- 2936 Dec, Allergic rhinitis due to pollen J30.1 [facility] [facility] [id number] [place] [address] 03734- 0260 Dec, Chronic cough R05 [place] [facility] [id number] [place] [address] 35636- 7058 Dec, [place] [address] 98039- 5443 Dec, Allergic rhinitis due to pollen J30.1 [facility] [facility] [id number] [place] [address] 59563- 9708 Dec, Allergic rhinitis due to pollen J30.1 [facility] [facility] [id number] [place] [address] 47045- 6539 Dec, Chronic cough R05 [place] [id number] [place] [address] 57112- 5463 October, Allergic rhinitis due to pollen J30.1 [facility] [facility] [id number] [place] [address] 94796- 6828 October, Allergic rhinitis due to pollen J30.1 [facility] [facility] [id number] [place] [address] 10389- 4741 October, [place] [id number] [place] [address] 16080- 5182 October, Asthma exacerbation J45.901 [place] [address] [place] [address]- 6142 October, Asthma exacerbation J45.901 and Current chronic use of inhaled steroid Z79.51 [place] [address] 91227- 6877 October, Uncomplicated severe persistent asthma J45.50 [place] [address] 21753- 6998 October, Allergic rhinitis due to pollen J30.1 [place] [address] 29264- 9663 Oct, [place] [address] 31010- 0832 Oct, Asthma exacerbation J45.901 and Sputum production R05 [place] [address] 28517- 9874 Oct, Asthma exacerbation J45.901 [place] [address] 36632- 2646 Oct, ADD (attention deficit disorder) F90.0 [place] [address] 65296- 5039 Oct, ADD (attention deficit disorder) F90.0 [facility] [facility] [id number] [place] [address] 17872- 6735 Aug, Allergic rhinitis due to pollen J30.1 [place] [id number] [place] [address] 59076- 7724 Aug, Atypical pneumonia J18.9 [place] [address] 47033- 7415 Aug, Allergic rhinitis due to pollen J30.1 [facility] [id number] [place] [address] 52015- 1397 Aug, Acquired hypothyroidism E03.9 [place] [address] 28262- 1976 Aug, Multiple food allergies Z91.018 ; Elevated blood pressure reading R03.0 and Anaphylaxis, subsequent encounter T78.2XXD [facility] [address] [id number] Aug, [facility] [address] 79790- 3674 Aug, Anaphylaxis, initial encounter T78.2XXA [place] [address] 68690- 6933 Aug, Allergic rhinitis due to pollen J30.1 [place] [address] 06739- 0563 Aug, Dental examination Z01.20 [place] [address] 11956- 8775 Aug, Allergic rhinitis due to pollen J30.1 [place] [address] 97824- 6867 Aug, Acquired hypothyroidism E03.9 and Pure hypercholesterolemia E78.00 [place] [address] 98648- 0020 Aug, ADD (attention deficit disorder) F90.0 ; Acquired hypothyroidism E03.9 and Pure hypercholesterolemia E78.00 [place] [address] 49775- 6196 Aug, Asthma exacerbation J45.901 [place] [address] 69853- 2011 Jul, Allergic rhinitis due to pollen J30.1 [place] [address] 39466- 3580 Jul, Allergic rhinitis due to pollen J30.1 [place] [address] 50241- 1203 Jul, [place] [address] [place] [address]- 4891 Jul, Allergic rhinitis due to pollen J30.1 [facility] [id number] [place] [address] 69875- 4668 Jul, Other chcf (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 and ADD ( attention deficit disorder) F90.0 [facility] [id number] [place] [address] 84693- 7066 Jul, Other long term care pharmacist (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 and ADD ( attention deficit disorder) F90.0 [facility] [id number] [place] [address] 09148- 3284 Jul, [facility] [id number] [place] [address] 90868- 7198 Jun, Allergic rhinitis due to pollen J30.1 [facility] [id number] [place] [address] 39630- 9757 Jun, Allergic rhinitis due to pollen J30.1 [facility] [id number] [place] [address] 25538- 0801 Jun, [facility] [id number] [place] [address] 25209- 3089 May, Allergic rhinitis due to pollen J30.1 [facility] [id number] [place] [address] 68336- 7971 May, Allergic rhinitis due to pollen J30.1 [facility] [id number] [place] [address] 83681- 9041 Apr, Allergic rhinitis due to pollen J30.1 [facility] [id number] [place] [address] 17828- 1407 Apr, Allergic rhinitis due to pollen J30.1 [facility] [id number] [place] [address] 70510- 5617 Apr, Encounter for immunization Z23 [facility] [address] [place] [address]- 2089 Apr, [facility] [id number] [place] [address] 45322- 9817 Mar, Allergic rhinitis due to pollen J30.1 [facility] [id number] [place] [address] 91672- 7697 Mar, Multiple allergies Z88.9 [facility] [id number] [place] [address] 50307- 5356 Mar, Candidal vaginitis B37.3 [facility] [id number] [place] [address] 28960- 0283 08 Mar, 2016 Allergic rhinitis due to pollen J30.1 [facility] [id number] [place] [address] 05290- 6355 Jan, Asthma exacerbation J45.901 ; Fatigue, unspecified type R53.83 and Community acquired pneumonia J18.9 [facility] [id number] [place] [address] [id number] Jan, Encounter for dental examination Z01.20 [facility] [id number] [place] [address] 66044- 4457 Jan, Allergic rhinitis due to pollen J30.1 [facility] [address] [place] [address] 10151- 9980 Dec, Allergic rhinitis due to pollen J30.1 [facility] [address] [place] [address] 84412- 7817 Dec, [facility] [id number] [place] [address] 68114- 1303 Dec, Allergic rhinitis due to pollen J30.1 [facility] [address] [place] [address] 51940- 0246 Dec, [facility] [id number] [place] [address] 33126- 7290 Dec, [facility] [address], [place] [address]- 4397 Dec, [facility] [address] [place] [address] 60550- 3862 Dec, Allergic rhinitis due to pollen J30.1 [facility] [address] [address]- 0106 Dec, [facility] [id number] [place] [address] 76828- 2277 Dec, [facility] [address] [place] [address] 96141- 6303 Dec, Allergic rhinitis due to pollen J30.1 [facility] [address] [place] [address] 45859- 9374 October, Allergic rhinitis due to pollen J30.1 [facility] [id number] [place] [address] 44743- 5982 October, Allergic rhinitis due to pollen J30.1 [facility] [address] [address]- 4107 October, [facility] [id number] [place] [address] 20315- 3370 October, [facility] [address] [address]- 4002 October, ADD (attention deficit disorder) F90.0 ; Major depressive disorder, recurrent episode, mild F33.0 and Uncomplicated severe persistent asthma J45.50 [facility] [address] [address]- 8026 Oct, Allergic rhinitis due to pollen J30.1 [facility] [address] [address]- 8097 Oct, ADD (attention deficit disorder) F90.0 [facility] [address] [address]- 3490 Oct, Allergic rhinitis due to pollen 477.0 [facility] [address] [place] [address] 09186- 6508 Aug, Allergic rhinitis due to pollen 477.0 [facility] [id number] [place] [address] 93108- 0376 Aug, 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 [facility] [id number] [place] [address] 33924- 0314 Aug, [facility] [id number] [place] [address] 04448- 9635 Aug, Allergic rhinitis due to pollen 477.0 [place] [id number] [place] [address] 94341- 8985 Aug, Allergic rhinitis due to pollen 477.0 [facility] [id number] [place] [address] 64009- 7778 Aug, Allergic rhinitis due to pollen 477.0 [facility] [id number] [place] [address] 87399- 4789 Aug, Exposure to influenza Z20.828 [facility] [id number] [place] [address] [id number] Aug, Encounter for dental examination and cleaning without abnormal findings Z01.20 [facility] [id number] [place] [address] 42954- 5232 Aug, Allergic rhinitis due to pollen J30.1 [facility] [address] [place] [address] 53118- 3410 Aug, [place] [id number] [place] [address] 73732- 6929 Aug, 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 [facility] [id number] [place] [address] 11428- 2938 Jul, [facility] [id number] [place] [address] 51651- 2902 Jul, Allergic rhinitis due to pollen 477.0 [facility] [address] 56948- 0214 Jul, [place] [address] 98376- 0884 Jul, Allergic rhinitis due to pollen 477.0 [place] [address] 24021- 4720 Jun, ADD (attention deficit disorder) F90.0 ; Acquired hypothyroidism E03.9 ; PCOS (polycystic ovarian syndrome) E28.2 ; Polyarthralgia M25.50 and On stimulant medication Z79.899 [place] [address] 43356- 7603 16 Apr, 2015 Encounter for immunization Z23 [place] [address] 65484- 0294 16 Mar, 2015 Allergic rhinitis due to pollen 477.0 [place] [address] 03952- 8818 14 Mar, 2015 Influenza vaccine administered V04.81 [place] [address] 14957- 7773 03 Mar, 2015 [place] [address] 21292- 3595 Jan, Allergic rhinitis due to pollen 477.0 [place] [id number] [place] [address] 88332- 0159 Jan, Allergic rhinitis due to pollen 477.0 [facility] [address] 27982- 0312 Jan, Allergic rhinitis due to pollen 477.0 [facility] [id number] [place] [address] [id number] 14 Jan, 2015 Dental examination V72.2 [place] [address] 66595- 3179 Dec, Allergic rhinitis due to pollen 477.0 [facility] [address] [place] [address]- 6835 October, [facility] [id number] [address]- 4678 Oct, [facility] [address] [address]- 3298 Oct, [facility] [address] [facility] [id number] [address]- [address] Aug, [facility] [address] [address]- 1112 Aug, [facility] [id number] [address]- 7301 Aug, [facility] [address] [address]- 7642 Aug, [facility] [id number] [address] Aug, [facility] [id number], [place] [address] Aug, [facility] [id number], [place] [address] Aug, [facility] [id number], [place] [address] Aug, [facility] [id number], [place] [address] Jul, [facility] [id number], [place] [address] Jul, [facility] [id number], [place] [address] Jul, [facility] [id number], [place] [address] Jul, [facility] [address] [id number] [place] [address] Jul, [facility] [place] [facility] [address] [id number] [place] [address] Jul, [facility] [place] [facility] [address] [id number] [place] [address] Jul, [facility] [place] [facility] [address] [id number] [place] [address] Jul, [facility] [place] [facility] [address] [id number] [place] [address] Jul, [facility] [place] [facility] [address] [id number] [place] [address] Jul, [facility] [place] [facility] [address] [id number] [place] [address] Jul, [facility] [place] [facility] [address] [id number] [place] [address] Jun, [facility] [place] [facility] [address] [id number] [place] [address] Jun, [facility] [place] [facility] [address] [id number] [place] [address] Jun, [facility] [place] [facility] [address] [id number] [place] [address] Jun, [facility] [place] [facility] [address] [id number] [place] [address] Jun, [facility] [place] [facility] [address] [id number] [place] [address] 1577 Jun, [facility] [place] [facility] [address] [id number] [place] [address] 8007 May, [facility] [place] [facility] [address] [id number] [place] [address]- 9153 May, [facility] [place] [facility] [address] [id number], [place] [address] May, [facility] [place] [facility] [address] [id number] [place] [address] May, [facility] [place] [facility] [address] [id number] [place] [address]- 8460 May, [facility] [place] [facility] [address] [id number] [place] [address]- 0458 May, [facility] [place] [facility] [address] [id number] [place] [address]- 6844 Apr, [facility] [place] [facility] [address] [id number] [place] [address]- 9069 Apr, [facility] [place] [facility] [address] [id number] [place] [address]- 5599 Mar, [facility] [place] [facility] [address] [id number] [place] [address]- 0[address] Mar, [facility] [place] [facility] [address] [id number] [place] [address]- 8500 Mar, [facility] [place] [facility] [address] [id number] [place] [address]- 5353 Mar, [facility] [place] [facility] [address] [id number] [place] [address]- 8870 Mar, [facility] [place] [facility] [address] [id number] [place] [address]- 9354 Mar, [facility] [place] [facility] [address] [id number], [place] [address]- 17[address] Jan, [facility] [place] [facility] [address] [id number] [place] [address]- 9700 Jan, [facility] [place] [facility] [address] [id number] [place] [address]- 6878 Jan, [facility] [place] [facility] [address] [id number] [place] [address]- 9862 Jan, [facility] [place] [facility] [address] [id number] [place] [address]- 1491 Jan, [facility] [place] [facility] [address] [id number] [place] [address]- 5225 Jan, [facility] [place] [facility] [address] [id number] [place] [address]- 74[address] Dec, [facility] [place] [facility] [address] [id number] [place] [address]- 8220 Dec, [facility] [place] [facility] [address] [id number] [place] [address]- 0935 Dec, [facility] [place] [facility] [address] [id number] [place] [address]- 8653 Dec, [facility] [place] [facility] [address] [id number] [place] [address]- 6716 Dec, [facility] [place] [facility] [address] [id number] [place] [address]- 6530 Dec, [facility] [place] [facility] [address] [id number] [place] [address]- 6758 Dec, [facility] [place] [facility] [address] [id number] [place] [address]- 0694 Dec, [facility] [place] [facility] [address] [id number] [place] [address]- 1819 Dec, [facility] [place] [facility] [address] [id number] [place] [address]- 0072 Dec, [facility] [place] [facility] [address] [id number] [place] [address]- 5072 Dec, [facility] [place] [facility] [address] [id number] [place] [address]- 8324 Dec, [facility] [place] [facility] [address] [id number] [place] [address]- 3813 Dec, [facility] [place] [facility] [address] [id number] [place] [address]- 3179 Dec, [facility] [place] [facility] [address] [id number] [place] [address]- 6747 Dec, [facility] [place] [facility] [address] [id number] [place] [address]- 8861 Dec, [facility] [place] [facility] [address] [id number] [place] [address]- 0353 October, [facility] [place] [facility] [address] [id number] [place] [address]- 3604 October, [facility] [place] [facility] [address] [id number] [place] [address]- 1948 October, [facility] [place] [facility] [address] [id number] [place] [address]- 4583 October, [facility] [place] [facility] [address] [id number] [place] [address]- 2833 October, [facility] [place] [facility] [address] [id number] [place] [address]- 2745 October, [facility] [place] [facility] [address] [id number] [place] [address]- 0791 Oct, [facility] [place] [facility] [address] [id number] [place] [address]- 7533 Oct, [facility] [place] [facility] [address] [id number] [place] [address]- 7174 Oct, [facility] [place] [facility] [address] [id number] [place] [address]- 5516 Oct, [facility] [place] [facility] [address] [id number] [place] [address]- 2410 Oct, [facility] [place] [facility] [address] [id number] [place] [address]- 1415 Oct, [facility] [place] [facility] [address] [id number] [place] [address]- 4798 Aug, [facility] [place] [facility] [address] [id number] [place] [address]- 3803 Aug, [facility] [place] [facility] [address] [id number] [place] [address]- 7308 Aug, [facility] [place] [facility] [address] [id number] [place] [address] Aug, [facility] [place] [facility] [address] [id number] [place] [address]- 6430 Jul, [facility] [place] [facility] [address] [id number] [place] [address]- 7969 Jul, [facility] [place] [facility] [address] [id number] [place] [address]- 4068 Jul, [facility] [place] [facility] [address] [id number] [place] [address]- 9077 Jul, [facility] [place] [facility] [address] [id number] [place] [address]- 5020 Jun, [facility] [place] [facility] [address] [id number] [place] [address]- 4529 Jun, [facility] [place] [facility] [address] [id number] [place] [address]- 1662 Jun, [facility] [place] [facility] [address] [facility] [id number] [place] [address]- 3438 Jun, [facility] [place] [facility] [address] [id number] [place] [address]- 1959 Jun, [facility] [place] [facility] [address] [id number] [place] [address]- 254 18 Jun, 2013 [facility] [place] [facility] [address] [id number] [place] [address]- 6271 Jun, [facility] [place] [facility] [address] [id number] [place] [address]67 Jun, [facility] [place] [facility] [address] [id number] [place] [address]- 0254 Jun, [facility] [place] [facility] [address] [id number] [place] [address]- 7121 Jun, [facility] [place] [facility] [address] [id number] [place] [address]- 9911 Jun, [facility] [place] [facility] [address] [id number] [place] [address]- 5937 May, [facility] [place] [facility] [address] [id number] [place] [address], [place] [address]- 0588 May, [facility] [place] [facility] [address] [id number] [place] [address]- 3175 May, [facility] [place] [facility] [address] [id number] [place] [address]- 3756 May, [facility] [place] [facility] [address] [id number] [place] [address]- 2308 May, [facility] [place] [facility] [address] [id number] [place] [address]- 5748 May, [facility] [place] [facility] [address] [id number] [place] [address]- 6292 May, [facility] [place] [facility] [address] [id number] [place] [address]- 9256 Apr, [facility] [place] [facility] [address] [id number] [place] [address]- 0731 Apr, [facility] [place] [facility] [address] [id number], [place] [address]- 3089 Apr, [facility] [place] [facility] [address] [id number] [place] [address]- 2999 Apr, [facility] [place] [facility] [address] [id number] [place] [address]- 5830 Mar, [facility] [place] [facility] [address] [id number] [place] [address]- 5351 26 Mar, 2013 [facility] [place] [facility] [address] [id number] [place] [address]- 8828 Mar, [facility] [place] [facility] [address] [id number] [place] [address]- 6762 Mar, [facility] [place] [facility] [address] [id number] [place] [address]- 9310 Mar, [facility] [place] [facility] [address] [id number] [place] [address]- 9113 Mar, [facility] [place] [facility] [address] [id number] [place] [address]- 5554 Jan, [facility] [place] [facility] [address] [id number] [place] [address]- 0920 Jan, [facility] [place] [facility] [address] [id number] [place] [address]- 3450 Jan, [facility] [place] [facility] [address] [id number] [place] [address]- 5300 Jan, [facility] [place] [facility] [address] [id number] [place] [address]- 8088 Jan, [facility] [place] [facility] [address] [id number] [place] [address]- 4854 Dec, [facility] [place] [facility] [address] [id number] [place] [address]- 5133 Dec, [facility] [place] [facility] [address] [id number] [place] [address]- 4528 Dec, [facility] [place] [facility] [address] [id number] [place] [address]- 4254 Dec, [facility] [place] [facility] [address] [id number] [place] [address]- 2605 Dec, [facility] [place] [facility] [address] [id number] [place] [address]- 2938 Dec, [facility] [place] [facility] [address] [id number] [place] [address]- 3703 Dec, [facility] [place] [facility] [address] [id number] [place] [address]- 8326 Dec, [facility] [address] [id number] [place] [address]- 5881 October, [facility] [address] [id number] [place] [address]- 2736 October, [facility] [address] [id number] [place] [address]- 0956 October, [facility] [address] [id number] [place] [address]- 8776 Oct, [facility] [address] [id number] [place] [address]- 4252 Oct, [facility] [address] [id number] [place] [address]- 9036 Oct, [facility] [address] [id number] [place] [address]- 0703 Oct, [facility] [address] [id number] [place] [address]- 8933 Aug, [facility] [address] [id number] [place] [address]- 1198 Aug, [facility] [address] [id number] [place] [address]- 3183 Aug, [facility] [address] [id number] [place] [address]- 3659 Jul, [facility] [address] [id number] [place] [address]- 5510 May, [facility] [address] [id number] [place] [address]- 3666 May, [facility] [address] [id number] [place] [address]- 7846 Apr, [facility] [address] [id number] [place] [address]39 Apr, [facility] [place] [facility] [address] [id number] [place] [address]- 0537 Apr, [facility] [place] [facility] [address] [id number] [place] [address]- 5514 Apr, [facility] [place] [facility] [address] [id number] [place] [address]- 0362 Apr, [facility] [place] [facility] [address] [id number] [place] [address]- 8435 Apr, [facility] [place] [facility] [address] [id number] [place] [address]- 6343 Apr, [facility] [place] [facility] [address] [id number] [place] [address]- 0551 Apr, [facility] [place] [facility] [address] [id number] [place] [address]- 0410 Apr, [facility] [place] [facility] [address] [id number], [place] [address]- 3845 Apr, [facility] [place] [facility] [address] [id number] [place] [address]- 2111 Apr, [facility] [place] [facility] [address] [id number], [place] [address]- 4217 Apr, [facility] [place] [facility] [address] [id number], [place] [address]- 4843 Mar, [facility] [place] [facility] [address] [id number], [place] [address]- 2471 Jan, [facility] [place] [facility] [address] [id number] [place] [address]- 8172 Dec, [facility] [place] [facility] [address] [id number], [place] [address]- 1103 October, [facility] [place] [facility] [address] [id number], [place] [address]- 5716 Oct, [facility] [place] [facility] [address] [id number], [place] [address] 2546 Oct, [facility] [address] [facility] [id number] [place] [address]- 7196 Oct, [facility] [address] [facility] [id number], [place] [address] 2546 Aug, [facility] [id number] [address] 2546 Aug, [facility] [address] [facility] [id number] [place] [address] 2546 29 Aug, 2011 [facility] [id number] [place] [address], [place] [address]- 8626 Aug, [facility] [id number] [address] 2546 Aug, [facility] [id number] [address]- 3336 Aug, [facility] [address] [id number], [place] [address]- 9329 Jun, [facility] [id number], [place] [address]- 8926 Apr, [facility] [id number], [place] [address]- 2886 Jun, [facility] [id number], [place] [address] 2546 Jun, [facility] [address] [id number], [place] [address] 2546 May, [facility] [address] [id number], [place] [address]- 2236 May, [facility] [address] [id number], [place] [address] 2546 15 Apr, 2009 [facility] [id number], [place] [address] 2542 13 Apr, 2009 IMMUNIZATIONS No Known Immunizations SOCIAL HISTORY Never Assessed REASON FOR VISIT Controlled Medication Refill PLAN OF CARE VITAL SIGNS MEDICATIONS Medication Instructions Dosage Frequency Start Date End Date Duration Status Concerta 54 MG Orally Once a day 1 tablet in the morning 24h Dec, 90 days Active RESULTS No Results PROCEDURES No [...] History see above surgeries Hospitalization History Anaphylactic shock-[facility] 08/23/16
--- OUTSIDE RECORDS SUMMARY | 2018-07-18 07:19 | XMS REPORT ---
Author Author BRANDY SAGAR Organization [facility] Address [address] [place] [address] Care Team Providers Care Sander Setter Name Role Phone BRANDYTEZ HOYTHANY Unavailable PROBLEMS Type Condition ICD9-CM Code [id number] Code Onset Dates Condition Status SNOMED Code Problem Migraine with aura and without status migrainosus, not intractable G43.109 Active 4133021 Problem PCOS (polycystic ovarian syndrome) E28.2 Active 98718279 Problem Uncomplicated severe persistent asthma J45.50 Active 099405983 Problem Severe persistent asthma with exacerbation J45.51 Active 878065067 Problem Other elevated white blood cell (WBC) count D72.828 Active 899043767 Problem Multiple food allergies Z91.018 Active 494365950 Problem Pure hypercholesterolemia E78.00 Active 365928928 Problem Current chronic use of inhaled steroid Z79.51 Active 104150900 Problem Asthma exacerbation J45.901 Active 336486153 Problem ADD (attention deficit disorder) F90.0 Active 537628307 Problem Allergic rhinitis due to pollen J30.1 Active 07041062 Problem Vitamin D deficiency E55.9 Active 05453034 Problem Major depressive disorder, recurrent episode, mild F33.0 Active 113252020 Problem Acquired hypothyroidism E03.9 Active 713421596 Problem Gastroesophageal reflux disease without esophagitis K21.9 Active 359476595 ALLERGIES Substance Reaction Event Type Date Status Zithromax Unknown Drug Allergy Dec, Active Qvar shortness of breath Drug Allergy Dec, Active Ceftin Unknown Drug Allergy Dec, Active Morphine Patient is a fast metabolizer and medication is not effective Drug Allergy Dec, Active FLUORIDE VARNISH Unknown Non Drug Allergy Dec, Active Asprin Unknown Non Drug Allergy Dec, Active [place] Unknown Non Drug Allergy Dec, Active Soybeans Unknown Non Drug Allergy Dec, Active Wheat Unknown Non Drug Allergy Dec, Active Malt Extract Unknown Non Drug Allergy Dec, Active ENCOUNTERS Encounter Location Date Diagnosis [place] [id number] [place] [address] 93457- 1594 Jan, Allergic rhinitis due to pollen J30.1 [place] [id number] [place] [address] 49982- 6753 Jan, [place] [id number] [place] [address] 01835- 9806 Jan, Allergic reaction, initial encounter T78.40XA [facility] [id number] [place] [address] 73684- 2013 Dec, Allergic rhinitis due to pollen J30.1 [place] [address] 67602- 7745 Dec, [place] [id number] [place] [address] 60650- 6234 Dec, Allergic rhinitis due to pollen J30.1 [place] [id number] [place] [address] 68926- 8268 Dec, ADD (attention deficit disorder) F90.0 [place] [id number] [place] [address] 73849- 6154 Dec, ADD (attention deficit disorder) F90.0 and Uncomplicated severe persistent asthma J45.50 [place] [id number] [place] [address] 54598- 4259 Dec, Allergic rhinitis due to pollen J30.1 [facility] [id number] [place] [address] 23947- 6161 Dec, [facility] [id number] [place] [address] 99003- 6702 October, Allergic rhinitis due to pollen J30.1 [facility] [id number] [place] [address] 38661- 9461 October, Allergic rhinitis due to pollen J30.1 [place] [id number] [place] [address] 78201- 0313 Oct, [place] [address] [place] [address] 84175- 1264 Oct, Allergic rhinitis due to pollen J30.1 [place] [address] [place] [address] 27213- 5269 Oct, [place] [id number] [place] [address] 70817- 2139 Oct, Allergic rhinitis due to pollen J30.1 [place] [id number] [place] [address] 13490- 3551 Oct, Severe persistent asthma with exacerbation J45.51 and Pneumonia due to Haemophilus influenzae, unspecified laterality, unspecified part of lung J14 [place] [id number] [place] [address] 53234- 4459 Oct, ADD (attention deficit disorder) F90.0 [place] [id number] [place] [address] 13899- 2624 Aug, Haemophilus influenzae infection A49.2 [place] [id number] [place] [address] 64153- 7689 Aug, Cough productive of purulent sputum R05 [place] [id number] [place] [address] 52201- 7157 Aug, [place] [id number] [place] [address] 68098- 5574 Aug, Pulmonary congestion R09.89 [place] [id number] [place] [address] 70853- 1449 Aug, Severe persistent asthma with exacerbation J45.51 ; Hiatal hernia K44.9 and Gastroesophageal reflux disease without esophagitis K21.9 [place] [address] [place] [address] 33825- 5262 Aug, Other elevated white blood cell (WBC) count D72.828 [place] [id number] [place] [address] 78337- 3760 Aug, Uncomplicated severe persistent asthma J45.50 [place] [address] 06914- 2331 Aug, Pure hypercholesterolemia E78.00 ; Uncomplicated severe persistent asthma J45.50 and Acquired hypothyroidism E03.9 [place] [address] 54386- 0723 Aug, Acquired hypothyroidism E03.9 ; Pure hypercholesterolemia E78.00 and Uncomplicated severe persistent asthma J45.50 [place] [address] 30701- 6388 15 Aug, 2017 Allergic rhinitis due to pollen J30.1 [place] [address] 40314- 2150 Aug, Allergic rhinitis due to pollen J30.1 [place] [address] 59029- 0636 Aug, [place] [address] [id number] Jul, Pharyngitis, unspecified etiology J02.9 and Lymphadenopathy R59.[address] 16135- 6035 Jul, ADD (attention deficit disorder) F90.[address] 80003- 8942 Jul, Allergic rhinitis due to pollen J30.1 [place] [address] 82109- 9225 Jul, Dental examination Z01.20 [place] [address] 35141- 6057 Jun, Cough productive of purulent sputum R05 [place] [address] 75545- 6907 Jun, Allergic rhinitis due to pollen J30.1 [place] [address] [place] [address] 80525- 7748 Jun, [place] [address] 61927- 9139 Jun, Allergic rhinitis due to pollen J30.1 [place] [id number] [place] [address] 50948- 6718 Jun, Allergic rhinitis due to pollen J30.1 [place] [id number] [place] [address] 63719- 9702 May, Allergic rhinitis due to pollen J30.1 [place] [address] 87680- 5328 May, Pneumonia due to Haemophilus influenzae, unspecified laterality, unspecified part of lung J14 [address] 32347- 3835 May, Allergic rhinitis due to pollen J30.1 [place] [id number] [place] [address] 52074- 7877 May, Other adverse food reactions, not elsewhere classified, initial encounter T78.1XXA and Pneumonia due to Haemophilus influenzae, unspecified laterality, unspecified part of lung J14 [place] [id number] [place] [address] 20418- 6413 May, Pneumonia due to Haemophilus influenzae, unspecified laterality, unspecified part of lung J14 [place] [id number] [place] [address] 82165- 7953 10 May, 2017 Multiple food allergies Z91.018 ; Uncomplicated severe persistent asthma J45.50 ; Cough productive of purulent sputum R05 and Uses central nervous system stimulants F15.90 [place] [id number] [place] [address] 32275- 5113 Apr, Allergic rhinitis due to pollen J30.1 [place] [id number] [place] [address] 34416- 5880 Apr, Allergic rhinitis due to pollen J30.1 [facility] [id number] [place] [address] 61721- 3663 Apr, Allergic rhinitis due to pollen J30.1 [facility] [id number] [place] [address] 64762- 1477 11 Apr, 2017 ADD (attention deficit disorder) F90.0 [place] [address] 71030- 9081 28 Mar, 2017 Allergic rhinitis due to pollen J30.1 [place] [id number] [place] [address] 54489- 1755 21 Mar, 2017 Encounter for immunization Z23 [place] [address] 39969- 3251 19 Mar, 2017 [place] [address] 77491- 9308 14 Mar, 2017 Allergic rhinitis due to pollen J30.1 [place] [id number] [place] [address] 75463- 3020 07 Mar, 2017 Allergic rhinitis due to pollen J30.1 [place] [id number] [place] [address] 72839- 8858 Jan, Allergic rhinitis due to pollen J30.1 [place] [id number] [place] [address] 89233- 3652 Jan, Allergic rhinitis due to pollen J30.1 [facility] [id number] [place] [address] 34975- 9443 Dec, Uncomplicated severe persistent asthma J45.50 [facility] [address] 02747- 0283 Dec, Allergic rhinitis due to pollen J30.1 [facility] [id number] [place] [address] 33273- 8858 Dec, Allergic rhinitis due to pollen J30.1 [place] [address] [place] [address] 71903- 3132 Dec, Allergic rhinitis due to pollen J30.1 [place] [id number] [place] [address] 74720- 8576 Dec, ADD (attention deficit disorder) F90.0 [place] [id number] [place] [address] 66819- 3658 Dec, Allergic rhinitis due to pollen J30.1 [place] [id number] [place] [address] 52880- 9454 Dec, Visit for TB skin test Z11.1 and Screening for tuberculosis Z11.[address] 00336- 9331 Dec, Uncomplicated severe persistent asthma J45.50 ; Palpitations R00.2 ; Pericardial effusion (noninflammatory) I31.3 and Chest discomfort R07.89 [place] [id number] [place] [address] 16824- 4574 Dec, Allergic rhinitis due to pollen J30.1 [place] [id number] [place] [address] 27511- 3909 Dec, Chronic cough R05 [place] [id number] [place] [address] 39970- 6480 Dec, [place] [id number] [place] [address] 19955- 7565 Dec, Allergic rhinitis due to pollen J30.1 [place] [id number] [place] [address] 66763- 0710 Dec, Allergic rhinitis due to pollen J30.1 [place] [id number] [place] [address] 39549- 8459 Dec, Chronic cough R05 [place] [id number] [place] [address] 74196- 8039 October, Allergic rhinitis due to pollen J30.1 [facility] [id number] [place] [address] 54530- 7964 October, Allergic rhinitis due to pollen J30.1 [facility] [id number] [place] [address] 92271- 0459 October, [facility] [id number] [place] [address] 78927- 4400 October, Asthma exacerbation J45.901 [facility] [address] 49047- 4898 October, Asthma exacerbation J45.901 and Current chronic use of inhaled steroid Z79.51 [place] [address] 29699- 2800 October, Uncomplicated severe persistent asthma J45.50 [place] [id number] [place] [address] 07713- 8502 October, Allergic rhinitis due to pollen J30.1 [facility] [id number] [place] [address] 29592- 5526 Oct, [place] [id number] [place] [address] 46350- 7781 Oct, Asthma exacerbation J45.901 and Sputum production R05 [place] [id number] [place] [address] 80845- 5990 Oct, Asthma exacerbation J45.901 [place] [id number] [place] [address] 22566- 2533 Oct, ADD (attention deficit disorder) F90.0 [place] [address] 81921- 8989 Oct, ADD (attention deficit disorder) F90.0 [place] [id number] [place] [address] 90907- 8549 Aug, Allergic rhinitis due to pollen J30.1 [place] [id number] 20982- 4113 Aug, Atypical pneumonia J18.9 [place] [address] 29776- 3836 Aug, Allergic rhinitis due to pollen J30.1 [place] [address] 19137- 3392 Aug, Acquired hypothyroidism E03.9 [place] [address] 39096- 4949 Aug, Multiple food allergies Z91.018 ; Elevated blood pressure reading R03.0 and Anaphylaxis, subsequent encounter T78.2XXD [place] [address] [place] [id number] Aug, [place] [address] 79592- 8927 Aug, Anaphylaxis, initial encounter T78.2XXA [place] [address] 41385- 8964 Aug, Allergic rhinitis due to pollen J30.1 [place] [address] 46002- 6768 Aug, Dental examination Z01.20 [place] [address] 63395- 1169 Aug, Allergic rhinitis due to pollen J30.1 [place] [address] 02642- 1813 Aug, Acquired hypothyroidism E03.9 and Pure hypercholesterolemia E78.00 [place] [address] 06110- 9728 Aug, ADD (attention deficit disorder) F90.0 ; Acquired hypothyroidism E03.9 and Pure hypercholesterolemia E78.00 [place] [address] 89271- 5452 Aug, Asthma exacerbation J45.901 [place] [address] [address]- 4152 Jul, Allergic rhinitis due to pollen J30.1 [facility] [id number] [place] [address] 42944- 3468 Jul, Allergic rhinitis due to pollen J30.1 [facility] [id number] [place] [address] 60492- 2056 Jul, [facility] [id number] [place] [address] 77803- 9384 Jul, Allergic rhinitis due to pollen J30.1 [facility] [id number] [place] [address] 69486- 3273 Jul, Other shelter (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 and ADD ( attention deficit disorder) F90.0 [place] [id number] [place] [address] 53015- 6940 Jul, 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 manager (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 and ADD ( attention deficit disorder) F90.0 [facility] [id number] [place] [address] 12224- 1529 Jul, [facility] [id number] [place] [address] 19236- 0133 Jun, Allergic rhinitis due to pollen J30.1 [facility] [address] [address]- 3847 Jun, Allergic rhinitis due to pollen J30.1 [facility] [address] [place] [address] 09089- 5652 Jun, [facility] [id number] [place] [address] 15727- 5285 May, Allergic rhinitis due to pollen J30.1 [facility] [address] [address]- 6242 May, Allergic rhinitis due to pollen J30.1 [facility] [id number] [place] [address] 21614- 7471 Apr, Allergic rhinitis due to pollen J30.1 [facility] [address] 06343- 0069 Apr, Allergic rhinitis due to pollen J30.1 [facility] [id number] [place] [address] 97402- 8067 Apr, Encounter for immunization Z23 [place] [address] 84124- 5523 Apr, [place] [address] 24191- 9189 Mar, Allergic rhinitis due to pollen J30.1 [place] [id number] [place] [address] 98198- 3033 Mar, Multiple allergies Z88.9 [place] [address] 12506- 0976 Mar, Candidal vaginitis B37.3 [place] [address] 25154- 8492 Mar, Allergic rhinitis due to pollen J30.1 [place] [id number] [place] [address] 28565- 1151 Jan, Asthma exacerbation J45.901 ; Fatigue, unspecified type R53.83 and Community acquired pneumonia J18.9 [facility] [id number] [place] [address] [id number] Jan, Encounter for dental examination Z01.20 [place] [address] 09087- 1259 Jan, Allergic rhinitis due to pollen J30.1 [place] [id number] [place] [address] 67276- 4953 Dec, Allergic rhinitis due to pollen J30.1 [place] [id number] [place] [address] 72814- 8449 Dec, [facility] [address] [address]- 9044 Dec, Allergic rhinitis due to pollen J30.1 [facility] [address] [address]- 0807 Dec, [facility] [address] [address]- 3748 Dec, [facility] [address] [address]- 3862 Dec, [facility] [id number] [place] [address] 59649- 7110 Dec, Allergic rhinitis due to pollen J30.1 [facility] [address] [address]- 8640 Dec, [facility] [address] [address]- 3368 Dec, [facility] [address] [address]- 4102 Dec, Allergic rhinitis due to pollen J30.1 [facility] [address] [address]- 2091 October, Allergic rhinitis due to pollen J30.1 [facility] [address] [address]- 4666 October, Allergic rhinitis due to pollen J30.1 [facility] [address] [address]- 4030 October, [facility] [address] [address]- 9131 October, [facility] [address] [address]- 8593 October, ADD (attention deficit disorder) F90.0 ; Major depressive disorder, recurrent episode, mild F33.0 and Uncomplicated severe persistent asthma J45.50 [facility] [id number] [place] [address] 25726- 9317 Oct, Allergic rhinitis due to pollen J30.1 [place] [id number] [place] [address] 31629- 9946 Oct, ADD (attention deficit disorder) F90.0 [place] [address] 78236- 7074 06 Oct, 2015 Allergic rhinitis due to pollen 477.0 [place] [id number] [place] [address] 22450- 9181 Aug, Allergic rhinitis due to pollen 477.0 [place] [address] 33548- 7158 Aug, 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 [place] [address] 39222- 0882 Aug, [place] [address] 70294- 1285 Aug, Allergic rhinitis due to pollen 477.0 [place] [address] 49983- 1340 Aug, Allergic rhinitis due to pollen 477.0 [place] [id number] [place] [address] 64546- 8886 Aug, Allergic rhinitis due to pollen 477.0 [place] [id number] [place] [address] 56260- 8350 Aug, Exposure to influenza Z20.828 [facility] [address] [id number] Aug, 2015 Encounter for dental examination and cleaning without abnormal findings Z01.20 [place] [id number] [place] [address] 21435- 5450 18 Aug, 2015 Allergic rhinitis due to pollen J30.1 [place] [id number] [place] [address] 52194- 8870 18 Aug, 2015 [place] [address] 83918- 7101 Aug, 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 [place] [id number] [place] [address] 42361- 0621 Jul, [place] [address] 56449- 2174 Jul, Allergic rhinitis due to pollen 477.0 [place] [address] 63562- 5590 Jul, [place] [address] 20456- 8642 Jul, Allergic rhinitis due to pollen 477.0 [place] [address] 54505- 1043 Jun, ADD (attention deficit disorder) F90.0 ; Acquired hypothyroidism E03.9 ; PCOS (polycystic ovarian syndrome) E28.2 ; Polyarthralgia M25.50 and On stimulant medication Z79.899 [place] [address] 83986- 4154 Apr, Encounter for immunization Z23 [place] [address] 06907- 9359 16 Mar, 2015 Allergic rhinitis due to pollen 477.0 [place] [id number] [place] [address] 47015- 4649 14 Mar, 2015 Influenza vaccine administered V04.81 [place] [address] 92708- 6244 03 Mar, 2015 [place] [id number] [place] [address] 08200- 2092 Jan, Allergic rhinitis due to pollen 477.0 [place] [address] 960483- 6586 Jan, Allergic rhinitis due to pollen 477.0 [facility] [address]- 8352 Jan, Allergic rhinitis due to pollen 477.0 [facility] [address] [id number] Jan, Dental examination V72.2 [facility] [id number] [place] [address] 25153- 5469 Dec, Allergic rhinitis due to pollen 477.0 [facility] [id number] [place] [address]- [address] October, [facility] [id number] [place] [address]- [address] Oct, [facility] [id number] [place] [address]179- [address] Oct, [facility] [id number] [address] Aug, [facility] [id number] [address] Aug, [facility] [id number] [address] Aug, [facility] [id number] [address] Aug, [facility] [id number] [address] Aug, [facility] [id number] [address] Aug, [facility] [id number] [address] Aug, [facility] [id number] [address] Aug, [facility] [place] [facility] [address] [id number] [place] [address] Jul, [facility] [place] [facility] [address] [id number] [place] [address] Jul, [facility] [place] [facility] [address] [id number] [place] [address] Jul, [facility] [place] [facility] [address] [id number] [place] [address] Jul, [facility] [place] [facility] [address] [id number] [place] [address] Jul, [facility] [place] [facility] [address] [id number] [place] [address] Jul, [facility] [place] [facility] [address] [id number] [place] [address] Jul, [facility] [place] [facility] [address] [id number] [place] [address] Jul, [facility] [place] [facility] [address] [id number] [place] [address] Jul, [facility] [place] [facility] [address] [id number] [place] [address] Jul, [facility] [place] [facility] [address] [id number] [place] [address] Jul, [facility] [place] [facility] [address] [id number] [place] [address] Jun, [facility] [place] [facility] [address] [address] [id number] [place] [address] Jun, [facility] [place] [facility] [address] [id number] [place] [address] Jun, [facility] [place] [facility] [address] [id number] [place] [address] 9268 Jun, [facility] [place] [facility] [address] [id number], [place] [address] Jun, [facility] [place] [facility] [address] [id number] [place] [address] 6577 Jun, [facility] [place] [facility] [address] [id number] [place] [address]339 May, [facility] [place] [facility] [address] [id number] [place] [address] 3824 May, [facility] [place] [facility] [address] [id number] [place] [address]- 8436 May, [facility] [place] [facility] [address] [id number] [place] [address] 0983 May, [facility] [place] [facility] [address] [id number] [place] [address] 3683 May, [facility] [place] [facility] [address] [id number] [place] [address] 3572 May, [facility] [place] [facility] [address] [id number] [place] [address] 3632 Apr, [facility] [place] [facility] [address] [id number] [place] [address] 8630 Apr, [facility] [place] [facility] [address] [id number] [place] [address]- 7267 30 Mar, 2014 [facility] [place] [facility] [address] [id number], [place] [address] 1427 30 Mar, 2013 [facility] [place] [facility] [address] [id number], [place] [address] 9[address] 30 Mar, 2013 [facility] [place] [facility] [address] [id number] [place] [address]- 2547 30 Mar, 2013 [facility] [place] [facility] [address] [id number] [place] [address]- 5551 19 Mar, 2014 [facility] [place] [facility] [address] [id number] [place] [address]- 0084 19 Mar, 2014 [facility] [place] [facility] [address] [id number] [place] [address] 405[address] Jan, [facility] [place] [facility] [address] [id number] [place] [address] 6441 Jan, [facility] [place] [facility] [address] [id number] [place] [address]- 0816 Jan, [facility] [place] [facility] [address] [id number] [place] [address]- 9400 Jan, [facility] [place] [facility] [address] [id number] [place] [address] 1395 Jan, [facility] [place] [facility] [address] [id number] [place] [address]- 0166 Jan, [facility] [place] [facility] [address] [id number] [place] [address]- 9020 Dec, [facility] [place] [facility] [address] [id number] [place] [address]- 2266 Dec, [facility] [place] [facility] [address] [id number] [place] [address]- 0064 Dec, [facility] [place] [facility] [address] [id number] [place] [address]- 6129 Dec, [facility] [place] [facility] [address] [id number] [place] [address]- 5161 Dec, [facility] [place] [facility] [address] [id number] [place] [address]- 7377 Dec, [facility] [place] [facility] [address] [id number] [place] [address]- 5914 Dec, [facility] [place] [facility] [address] [id number] [place] [address]- 2893 Dec, [facility] [place] [facility] [address] [id number] [place] [address]- 6467 Dec, [facility] [place] [facility] [address] [id number] [place] [address]- 8657 Dec, [facility] [place] [facility] [address] [id number] [place] [address]- 2590 Dec, [facility] [place] [facility] [address] [id number] [place] [address]- 4073 Dec, [facility] [place] [facility] [address] [id number] [place] [address]- 8598 Dec, [facility] [place] [facility] [address] [id number] [place] [address]- 9308 Dec, [facility] [place] [facility] [address] [id number] [place] [address]- 9995 Dec, [facility] [place] [facility] [address] [id number] [place] [address]- 1201 Dec, [facility] [place] [facility] [address] [id number] [place] [address]- 4978 October, [facility] [place] [facility] [address] [id number] [place] [address]- 1106 October, [facility] [place] [facility] [address] [id number] [place] [address]- 5614 October, [facility] [place] [facility] [address] [id number] [place] [address]- 1039 October, [facility] [place] [facility] [address] [id number] [place] [address]- 3136 October, [facility] [place] [facility] [address] [id number] [place] [address]- 4011 October, [facility] [place] [facility] [address] [id number] [place] [address]- 0116 Oct, [facility] [place] [facility] [address] [id number] [place] [address]- 8275 Oct, [facility] [place] [facility] [address] [id number] [place] [address]- 0238 Oct, [facility] [place] [facility] [address] [id number], [place] [address] 17[address] Oct, [facility] [address] [id number] [place] [address]- 5254 Oct, [facility] [place] [facility] [address] [id number] [place] [address] Oct, [facility] [place] [facility] [address] [id number] [place] [address]- 7386 Aug, [facility] [place] [facility] [address] [id number] [place] [address]- 9713 Aug, [facility] [place] [facility] [address] [id number] [place] [address]- 9531 Aug, [facility] [place] [facility] [address] [id number] [place] [address]- 7843 Aug, [facility] [address] [facility] [id number] [place] [address]- 3925 Jul, [facility] [place] [facility] [address] [id number] [place] [address]- 0126 Jul, [facility] [place] [facility] [address] [id number] [place] [address]- 2458 Jul, [facility] [place] [facility] [address] [facility] [id number] [place] [address]- 0781 Jul, [facility] [place] [facility] [address] [id number] [place] [address]- 9318 Jun, [facility] [place] [facility] [address] [id number] [place] [address]- 4717 Jun, [facility] [place] [facility] [address] [id number] [place] [address]- 5717 Jun, [facility] [place] [facility] [address] [id number] [place] [address]- 6388 24 Jun, 2013 [facility] [place] [facility] [address] [facility] [id number] [place] [address] Jun, [facility] [place] [facility] [address] [id number] [place] [address]- 6184 Jun, [facility] [place] [facility] [address] [id number] [place] [address] Jun, [facility] [place] [facility] [address] [id number] [place] [address]- 0239 Jun, [facility] [place] [facility] [address] [id number] [place] [address]- 0161 Jun, [facility] [place] [facility] [address] [id number] [place] [address]- 8103 Jun, [facility] [place] [facility] [address] [id number] [place] [address]- 0528 Jun, [facility] [place] [facility] [address] [id number] [place] [address]- 6143 May, [facility] [place] [facility] [address] [id number] [place] [address]- 6425 May, [facility] [place] [facility] [address] [id number] [place] [address]- 3438 May, [facility] [place] [facility] [address] [id number] [place] [address]- 4874 May, [facility] [place] [facility] [address] [id number] [place] [address]- 1429 May, [facility] [place] [facility] [address] [id number] [place] [address]- 7097 May, [facility] [place] [facility] [address] [id number] [place] [address]- 7658 May, [facility] [place] [facility] [address] [id number] [place] [address]- 7553 Apr, [facility] [place] [facility] [address] [id number] [place] [address]- 9382 Apr, [facility] [place] [facility] [address] [id number] [place] [address]- 3806 Apr, [facility] [place] [facility] [address] [id number] [place] [address]- 9681 Apr, [facility] [place] [facility] [address] [id number] [place] [address]- 9528 27 Mar, 2013 [facility] [place] [facility] [address] [id number] [place] [address] 2546 Mar, [facility] [place] [facility] [address] [id number] [place] [address]- 7946 Mar, [facility] [place] [facility] [address] [id number] [place] [address]- 2276 Mar, [facility] [place] [facility] [address] [id number] [place] [address]- 0225 Mar, [facility] [place] [facility] [address] [id number] [place] [address]- 4255 Mar, [facility] [place] [facility] [address] [id number] [place] [address]- 5183 Jan, [facility] [place] [facility] [address] [id number] [place] [address]- 4261 Jan, [facility] [place] [facility] [address] [id number] [place] [address]- 8205 Jan, [facility] [place] [facility] [address] [id number] [place] [address]- 4832 Jan, [facility] [place] [facility] [address] [id number], [place] [address]- 2384 Jan, [facility] [place] [facility] [address] [id number] [place] [address]- 6677 Dec, [facility] [place] [facility] [address] [id number] [place] [address]- 5415 Dec, [facility] [place] [facility] [address] [id number] [place] [address]- 9033 Dec, [facility] [place] [facility] [address] [id number] [place] [address]- 3216 Dec, [facility] [address] [id number] [place] [address]- 4265 Dec, [facility] [address] [id number] [place] [address]- 5664 Dec, [facility] [address] [id number] [place] [address]- 3446 Dec, [facility] [address] [id number] [place] [address]- 0126 Dec, [facility] [address] [id number] [place] [address]- 4752 October, [facility] [address] [id number] [place] [address]- 0973 October, [facility] [address] [id number] [place] [address]- 5186 October, [facility] [address] [id number] [place] [address]- 2826 Oct, [facility] [address] [id number] [place] [address]- 5009 Oct, [facility] [address] [id number] [place] [address]- 8694 Oct, [facility] [address] [id number] [place] [address]- 0340 Oct, [facility] [address] [id number] [place] [address]- 1362 Aug, [facility] [place] [facility] [address] [id number] [place] [address]- 5800 07 Aug, 2012 [facility] [place] [facility] [address] [id number] [place] [address]- 8976 05 Aug, 2012 [facility] [address] [id number] [place] [address]- 7193 Jul, [facility] [place] [facility] [address] [id number] [place] [address]- 9645 May, [facility] [place] [facility] [address] [id number] [place] [address] May, [facility] [place] [facility] [address] [id number] [place] 7865 Apr, [facility] [place] [facility] [address] [id number] [place] [address], [place] [address]- 4823 Apr, [facility] [place] [facility] [address] [id number] [place] [address]- 8560 Apr, [facility] [place] [facility] [address] [id number] [place] [address]- 0428 Apr, [facility] [place] [facility] [address] [id number] [place] [address]- 8512 Apr, [facility] [place] [facility] [address] [id number] [place] [address]- 2286 Apr, [facility] [place] [facility] [address] [id number] [place] [address]- 0203 Apr, [facility] [place] [facility] [address] [id number] [place] [address]- 8120 Apr, [facility] [place] [facility] [address] [id number] [place] [address]- 5500 Apr, [facility] [place] [facility] [address] [id number], [place] [address]- 7451 Apr, [facility] [place] [facility] [address] [id number] [place] [address]- 7191 Apr, [facility] [place] [facility] [address] [id number] [place] [address]- 0937 Apr, [facility] [place] [facility] [address] [id number], [place] [address]- 6808 Mar, [facility] [place] [facility] [address] [id number], [place] [address]- 1102 Jan, [facility] [address] [id number] [place] [address]- 3296 Dec, [facility] [address] [id number] [place] [address]- 6082 October, [facility] [address] [id number] [place] [address]- 4161 Oct, [facility] [place] [facility] [address] [id number] [place] [address]- 1899 Oct, [facility] [address] [id number] [place] [address]38 Oct, [facility] [address] [facility] [id number] [place] [address]123 Aug, [facility] [address] [facility] [id number] [place] 9180 Aug, [facility] [place] [facility] [address] [id number] [place] [address]- 9541 Aug, [facility] [address] [facility] [id number] [place] [address]- 3722 Aug, [facility] [address] [facility] [id number] [place] [address]- 6088 Aug, [facility] [address] [facility] [id number] [place] [address]- 5827 Aug, [facility] [place] [facility] [address] [id number], [place] [address]- 9856 Jun, [facility] [place] [facility] [address] [id number] [place] [address]- 6438 Apr, [facility] [place] [facility] [address] [facility] [id number] [place] [address]- 7037 Jun, [facility] [place] [facility] [address] [facility] [id number] [place] [address]- 9366 Jun, [facility] [place] [facility] [address] [facility] [id number][place] [address]666 May, [facility] [address] [facility] [id number], [place] [address]- 8734 May, [facility] [address] [facility] [id number], [place] [address]- 8596 Apr, [facility] [address] [facility] [id number], [place] [address]- 0818 Apr, IMMUNIZATIONS No Known Immunizations SOCIAL HISTORY Never Assessed REASON FOR VISIT ADHD follow up: patricia zuniga PLAN OF CARE Activity Details Follow Up 3 Months Reason:ADHD/asthma VITAL SIGNS Height 68 in 2017-12-29 Temperature 97.2 degrees Fahrenheit 2017-12-29 Heart Rate 94 bpm 2017-12-29 Respiratory Rate 20 2017-12-29 Oximetry 97 % 2017-12-29 Blood pressure systolic 122 mmHg 2017-12-29 Blood pressure diastolic 74 mmHg 2017-12-29 MEDICATIONS Medication Instructions Dosage Frequency Start Date End Date Duration Status Albuterol Sulfate (2.5 MG/3ML) 0.083% Inhalation 4 times a day 3 ml as needed 6h 11 Oct, 2016 Active EpiPen 2-Leo 0.3 MG/0.3ML INJECT 0.3 MG ONCE NEEDED FOR ANAPHYLAXIS 2 Active Vitamin D 2000 UNIT Orally Once a day 1 tablet 24h Active Levothyroxine Sodium 100 MCG TAKE ONE TABLET BY MOUTH ONCE DAILY 90 Active Magnesium Oxide 250 MG Orally Once a day 2 tablets 24h Active MetFORMIN HCl ER 1000 mg Orally Once a day 1 tablet with evening meal 24h Active Bactrim DS 800-160 MG Orally Twice a day 1 tablet 12h 25 Dec, 2017 Dec, 14 days Active Zoloft 50 MG Orally Once a day 1 tablet 24h Active Ranitidine HCl 150 MG Orally Once a day 1 capsule at bedtime 24h Active Advair Diskus 500-50 MCG/DOSE Active Pulmicort Flexhaler 180 MCG/ACT Inhalation Twice a day 1 puff 12h Active Concerta 54 MG Orally Once a day 1 tablet in the morning 24h 10 Oct, 2017 Active Ondansetron 8 MG DISSOLVE ONE TABLET UNDER TONGUE EVERY 6 HOURS NEEDED FOR NAUSEA OR VOMITING 20 Active Nasonex 50 MCG/ACT USE ONE SPRAY IN EACH NOSTRIL TWICE DAILY 90 Active Xyzal 5 mg 1 tablet by Oral route 2 times per day Mar, Active ProAir RespiClick 108 (90 Base) MCG/ACT Inhalation every 4 hrs 1 puff as needed 4h Active Spiriva HandiHaler 18 MCG Active Lo Loestrin Fe 1 MG-10 MCG / 10 MCG Orally Once a day 1 tablet 24h Active Brovana 15 MCG/2ML Inhalation Twice a day 2 ml 12h Active pantoprazole 40 mg by oral route Once a day 1 tablet 24h Aug, Active IBU 800 MG TAKE ONE TABLET BY MOUTH EVERY 8 HOURS 30 Active Pulmozyme 1 MG/ML Inhalation Once a day 2.5 ml 24h Aug, Not- Taking Singulair 10 mg take 1 tablet by Oral route 1 time per day Apr, Active Aerobika - as directed Aug, Active Nebulizer - as directed Aug, Active RESULTS No Results PROCEDURES Procedure Date Ordered Result Body Site DRUG TEST PRSMV CHEM ANLYZR December 29, 2017 INSTRUCTIONS MEDICATIONS ADMINISTERED No Known Medications MEDICAL (GENERAL) HISTORY Type Description Date Medical History Hypothyroid Medical History Asthma Medical History Migraine Headaches Medical History Depression Medical History ADHD Medical History GERD Medical History Allergic Rhinitis Medical History PCOS Surgical History Left wrist plate 2003 Surgical History 2004 Surgical History 2010 Surgical History EGD 2012 Surgical History Hiatal Hernia Repair and Fundoplication 2013 Surgical History 2014 Surgical History Wound Dehisance 2014 Hospitalization History see above surgeries Hospital[facility] History [facility]
--- OUTSIDE RECORDS SUMMARY | 2018-07-18 07:20 | XMS REPORT ---
Author Author BRANDY SAGAR [facility] Address [address] [place] [address] Care Team Providers Care Broadcast Designer Name Role Phone BRANDYTEZ HOYTHANY Unavailable PROBLEMS Type Condition ICD9-CM Code RCG11-MV Code Onset Dates Condition Status SNOMED Code Problem Migraine with aura and without status migrainosus, not intractable G43.109 Active 4183091 Problem PCOS (polycystic ovarian syndrome) E28.2 Active 27235351 Problem Uncomplicated severe persistent asthma J45.50 Active 658839340 Problem Severe persistent asthma with exacerbation J45.51 Active 079762315 Problem Other elevated white blood cell (WBC) count D72.828 Active 257949131 Problem Multiple food allergies Z91.018 Active 463732797 Problem Pure hypercholesterolemia E78.00 Active 033512351 Problem Current chronic use of inhaled steroid Z79.51 Active 722100449 Problem Asthma exacerbation J45.901 Active 390881803 Problem ADD (attention deficit disorder) F90.0 Active 186128118 Problem Allergic rhinitis due to pollen J30.1 Active 17521504 Problem Vitamin D deficiency E55.9 Active 16347215 Problem Major depressive disorder, recurrent episode, mild F33.0 Active 965118433 Problem Acquired hypothyroidism E03.9 Active 993110752 Problem Gastroesophageal reflux disease without esophagitis K21.9 Active 982792354 ALLERGIES No Information ENCOUNTERS Encounter Location Date Diagnosis [facility] [address] [address] Jan, Allergic rhinitis due to pollen J30.1 [place] [address] [address] Jan, [place] [address] [address] Jan, Allergic reaction, initial encounter T78.40XA [place] [address] [place] [id number] [place] [address] 30141- 1522 Dec, Allergic rhinitis due to pollen J30.1 [facility] [address] [place] [id number] [place] [address] 69237- 6539 Dec, [facility] [address] [id number] [place] [address] 20146- 8825 Dec, Allergic rhinitis due to pollen J30.1 [facility] [address] [place] [id number] [place] [address] 54477- 3164 Dec, ADD (attention deficit disorder) F90.0 [place] [address] [id number] [place] [address] 25234- 7922 Dec, ADD (attention deficit disorder) F90.0 and Uncomplicated severe persistent asthma J45.50 [facility] [address] [place] [id number] [place] [address] 16550- 5739 Dec, Allergic rhinitis due to pollen J30.1 [facility] [address] [place] [id number] [place] [address] 59373- 3488 Dec, [facility] [address] [id number] [place] [address] 63873- 7055 October, Allergic rhinitis due to pollen J30.1 [facility] [address] [place] [address] 66735- 0515 October, Allergic rhinitis due to pollen J30.1 [facility] [address] [place] [id number] [place] [address] 39760- 0810 Oct, [facility] [address] [place] [address] 03540- 8044 Oct, Allergic rhinitis due to pollen J30.1 [facility] [address] [address] 9859 Oct, [facility] [address] [address] 0280 Oct, Allergic rhinitis due to pollen J30.1 [place] [address] [place] [id number] [place] [address] 67066- 5989 13 Oct, 2017 Severe persistent asthma with exacerbation J45.51 and Pneumonia due to Haemophilus influenzae, unspecified laterality, unspecified part of lung J14 [place] [address] [place] [id number] [place] [address] 51650- 2148 10 Oct, 2017 ADD (attention deficit disorder) F90.0 [place] [address] 23110- 6730 12 Aug, 2017 Haemophilus influenzae infection A49.2 [place] [address] 28065- 3477 09 Aug, 2017 Cough productive of purulent sputum R05 [place] [address] 79594- 7576 08 Aug, 2017 [place] [address] 97532- 7491 08 Aug, 2017 Pulmonary congestion R09.89 [place] [address] 76685- 5017 07 Aug, 2017 Severe persistent asthma with exacerbation J45.51 ; Hiatal hernia K44.9 and Gastroesophageal reflux disease without esophagitis K21.9 [place] [address] 33029- 7161 Aug, Other elevated white blood cell (WBC) count D72.828 [place] [address] [place] [id number] [place] [address] 24940- 6605 Aug, Uncomplicated severe persistent asthma J45.50 [place] [address] 719489- 0776 Aug, Pure hypercholesterolemia E78.00 ; Uncomplicated severe persistent asthma J45.50 and Acquired hypothyroidism E03.9 [place] [address] [place] [id number] [place] [address] 23032- 5970 Aug, Acquired hypothyroidism E03.9 ; Pure hypercholesterolemia E78.00 and Uncomplicated severe persistent asthma J45.50 [place] [address] 04296- 0141 15 Aug, 2017 Allergic rhinitis due to pollen J30.1 [place] [address] 15554- 0592 08 Aug, 2017 Allergic rhinitis due to pollen J30.1 [place] [address] 48927- 7087 Aug, [place] [address] [id number] Jul, Pharyngitis, unspecified etiology J02.9 and Lymphadenopathy R59.1 [place] [address] 11228- 6704 Jul, ADD (attention deficit disorder) F90.[address] 62260- 0145 Jul, Allergic rhinitis due to pollen J30.1 [place] [address] 94995- 6902 Jul, Dental examination Z01.20 [place] [address] 65700- 0665 Jun, Cough productive of purulent sputum R05 [place] [address] 68320- 8171 Jun, Allergic rhinitis due to pollen J30.1 [place] [address] [place] [id number] [place] [address] 26759- 4708 Jun, [place] [address] 19037- 0189 Jun, Allergic rhinitis due to pollen J30.1 [place] [address] [place] [id number] [place] [address] 81752- 5265 Jun, Allergic rhinitis due to pollen J30.1 [place] [address] [place] [id number] [place] [address] 51774- 3779 May, Allergic rhinitis due to pollen J30.1 [place] [address] [place] [id number] [place] [address] 26199- 5401 May, Pneumonia due to Haemophilus influenzae, unspecified laterality, unspecified part of lung J14 [place] [address] [place] [id number] [place] [address] 86251- 5679 May, Allergic rhinitis due to pollen J30.1 [place] [address] [place] [address] 87745- 0895 May, Other adverse food reactions, not elsewhere classified, initial encounter T78.1XXA and Pneumonia due to Haemophilus influenzae, unspecified laterality, unspecified part of lung J14 [place] [address] [place] [id number] [place] [address] 69777- 7703 May, Pneumonia due to Haemophilus influenzae, unspecified laterality, unspecified part of lung J14 [place] [address] [place] [id number] [place] [address] 41279- 5039 May, Multiple food allergies Z91.018 ; Uncomplicated severe persistent asthma J45.50 ; Cough productive of purulent sputum R05 and Uses central nervous system stimulants F15.90 [place] [address] [place] [id number] [place] [address] 23723- 3300 Apr, Allergic rhinitis due to pollen J30.1 [place] [address] [place] [id number] [place] [address] 65335- 2711 Apr, Allergic rhinitis due to pollen J30.1 [place] [address] [place] [id number] [place] [address] 48788- 1055 Apr, Allergic rhinitis due to pollen J30.1 [place] [address] [place] [id number] [place] [address] 90870- 0591 Apr, ADD (attention deficit disorder) F90.0 [place] [address] [place] [id number] [place] [address] 29160- 7060 Mar, Allergic rhinitis due to pollen J30.1 [facility] [address] [place] [id number] [place] [address] 68761- 9944 Mar, Encounter for immunization Z23 [facility] [address] [place] [id number] [place] [address] 98623- 8956 19 Mar, 2017 [facility] [address] [place] [id number] [place] [address] 54319- 2647 14 Mar, 2017 Allergic rhinitis due to pollen J30.1 [facility] [address] [place] [id number] [place] [address] 19739- 4536 07 Mar, 2017 Allergic rhinitis due to pollen J30.1 [place] [address] [place] [id number] [place] [address] 22707- 5655 Jan, Allergic rhinitis due to pollen J30.1 [place] [address] [place] [id number] [place] [address] 21379- 5477 Jan, Allergic rhinitis due to pollen J30.1 [place] [address] [place] [id number] [place] [address] 61360- 2213 Dec, Uncomplicated severe persistent asthma J45.50 [place] [address] [place] [id number] [place] [address] 63720- 1284 Dec, Allergic rhinitis due to pollen J30.1 [place] [address] [place] [id number] [place] [address] 97473- 7092 Dec, Allergic rhinitis due to pollen J30.1 [facility] [address] [place] [id number] [place] [address] 04524- 9461 Dec, Allergic rhinitis due to pollen J30.1 [facility] [address] [place] [id number] [place] [address] 84309- 3389 Dec, ADD (attention deficit disorder) F90.0 [facility] [address] [place] [id number] [place] [address] 45470- 6476 Dec, Allergic rhinitis due to pollen J30.1 [place] [address] [place] [id number] [place] [address] 14022- 0237 Dec, Visit for TB skin test Z11.1 and Screening for tuberculosis Z11.1 [place] [address] [place] [id number] [place] [address] 32313- 4296 Dec, Uncomplicated severe persistent asthma J45.50 ; Palpitations R00.2 ; Pericardial effusion (noninflammatory) I31.3 and Chest discomfort R07.89 [place] [address] [place] [id number] [place] [address] 96083- 8815 Dec, Allergic rhinitis due to pollen J30.1 [place] [address] 70199- 4554 Dec, Chronic cough R05 [place] [address] [place] [id number] [place] [address] 07206- 7373 Dec, [place] [address] 24027- 3642 Dec, Allergic rhinitis due to pollen J30.1 [place] [address] [place] [id number] [place] [address] 63783- 5375 Dec, Allergic rhinitis due to pollen J30.1 [place] [address] [place] [id number] [place] [address] 19038- 5201 Dec, Chronic cough R05 [place] [address] [place] [id number] [place] [address] 71173- 0273 October, Allergic rhinitis due to pollen J30.1 [place] [address] [place] [id number] [place] [address] 15067- 6007 October, Allergic rhinitis due to pollen J30.1 [place] [address] [place] [id number] [place] [address] 43905- 2540 October, [place] [address] [place] [id number] [place] [address] 71281- 8372 October, Asthma exacerbation J45.901 [place] [address] 91373- 8446 October, Asthma exacerbation J45.901 and Current chronic use of inhaled steroid Z79.51 [place] [address] 32620- 8919 October, Uncomplicated severe persistent asthma J45.50 [place] [address] 79225- 7017 October, Allergic rhinitis due to pollen J30.1 [place] [address] 15147- 8391 Oct, [place] [address] 50655- 8329 Oct, Asthma exacerbation J45.901 and Sputum production R05 [address] 01292- 5009 Oct, Asthma exacerbation J45.901 [place] [address] 98926- 7865 Oct, ADD (attention deficit disorder) F90.[address] 29987- 5454 Oct, ADD (attention deficit disorder) F90.0 [place] [address] 84799- 8362 Aug, Allergic rhinitis due to pollen J30.1 [place] [address] [place] [id number] [place] [address] 66020- 9583 Aug, Atypical pneumonia J18.9 [place] [address] 80870- 3204 Aug, Allergic rhinitis due to pollen J30.1 [place] [address] 25246- 1897 Aug, Acquired hypothyroidism E03.9 [place] [address] 17120- 4595 Aug, Multiple food allergies Z91.018 ; Elevated blood pressure reading R03.0 and Anaphylaxis, subsequent encounter T78.2XXD [facility] [address] [id number] Aug, [place] [address] 37013- 2296 Aug, Anaphylaxis, initial encounter T78.2XXA [place] [address] 94509- 8306 Aug, Allergic rhinitis due to pollen J30.1 [place] [address] 55858- 8783 Aug, Dental examination Z01.20 [place] [address] 55805- 0971 Aug, Allergic rhinitis due to pollen J30.1 [place] [address] 64960- 9329 Aug, Acquired hypothyroidism E03.9 and Pure hypercholesterolemia E78.00 [place] [address] 63573- 6304 03 Aug, 2016 ADD (attention deficit disorder) F90.0 ; Acquired hypothyroidism E03.9 and Pure hypercholesterolemia E78.00 [place] [address] [place] [id number] [place] [address] 13653- 3150 Aug, Asthma exacerbation J45.901 [place] [address] 29981- 7985 Jul, Allergic rhinitis due to pollen J30.1 [place] [address] 25250- 4707 Jul, Allergic rhinitis due to pollen J30.1 [place] [address] 11099- 2183 Jul, [place] [address] [place] [address] [place] [address]- 0320 Jul, Allergic rhinitis due to pollen J30.1 [facility] [address] [place] [id number] [place] [address] 27983- 7864 Jul, Other mcc (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 and ADD ( attention deficit disorder) F90.0 [facility] [address] [place] [id number] [place] [address] 94305- 2287 Jul, 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 accountant (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 and ADD ( attention deficit disorder) F90.0 [facility] [address] [place] [id number] [place] [address] 97464- 4518 Jul, [facility] [address] [place] [id number] [place] [address] 09160- 6625 Jun, Allergic rhinitis due to pollen J30.1 [facility] [address] [place] [id number] [place] [address] 63195- 9616 Jun, Allergic rhinitis due to pollen J30.1 [facility] [address] [place] [id number] [place] [address] 72594- 8559 Jun, [facility] [address] [place] [id number] [place] [address] 10906- 8615 May, Allergic rhinitis due to pollen J30.1 [facility] [address] [place] [id number] [place] [address] 60832- 8791 May, Allergic rhinitis due to pollen J30.1 [facility] [address] [place] [id number] [place] [address] 09996- 9031 Apr, Allergic rhinitis due to pollen J30.1 [facility] [address] [place] [id number] [place] [address] 37212- 6169 Apr, Allergic rhinitis due to pollen J30.1 [facility] [address] [place] [id number] [place] [address] 08127- 7445 Apr, Encounter for immunization Z23 [facility] [address] [place] [address] [place] [address]- 6823 Apr, [facility] [address] [place] [id number] [place] [address] 08474- 3681 Mar, Allergic rhinitis due to pollen J30.1 [facility] [address] [place] [id number] [place] [address] 68793- 0706 Mar, Multiple allergies Z88.9 [facility] [address] [place] [id number] [place] [address] 02532- 2652 Mar, Candidal vaginitis B37.3 [facility] [address] [place] [id number] [place] [address] 61442- 5954 08 Mar, 2016 Allergic rhinitis due to pollen J30.1 [facility] [address] [place] [id number] [place] [address] 43989- 8049 Jan, Asthma exacerbation J45.901 ; Fatigue, unspecified type R53.83 and Community acquired pneumonia J18.9 [facility] [address] [place] [id number] [place] [address] [id number] Jan, Encounter for dental examination Z01.20 [facility] [address] [place] [id number] [place] [address] 22480- 3824 Jan, Allergic rhinitis due to pollen J30.1 [facility] [address] [place] [address] 17445- 3180 Dec, Allergic rhinitis due to pollen J30.1 [facility] [address] [place] [address] 96965- 5617 Dec, [facility] [address] [place] [id number] [place] [address] 82692- 5084 Dec, Allergic rhinitis due to pollen J30.1 [facility] [address] [place] [address] 66301- 9091 Dec, [facility] [address] [place] [id number] [place] [address] 75720- 3497 Dec, [place] [address] [address]- 2005 Dec, [facility] [address] [place] [address] 51278- 6665 Dec, Allergic rhinitis due to pollen J30.1 [facility] [address] [address]- 4741 Dec, [facility] [address] [place] [id number] [place] [address] 23265- 4741 Dec, [facility] [address] [place] [address] 76278- 6495 Dec, Allergic rhinitis due to pollen J30.1 [facility] [address] [place] [address] 60521- 0779 October, Allergic rhinitis due to pollen J30.1 [facility] [address] [place] [id number] [place] [address] 23446- 8128 October, Allergic rhinitis due to pollen J30.1 [facility] [address] [address]- 0966 October, [facility] [address] [place] [id number] [place] [address] 48000- 3577 October, [facility] [address] [address]- 8231 October, ADD (attention deficit disorder) F90.0 ; Major depressive disorder, recurrent episode, mild F33.0 and Uncomplicated severe persistent asthma J45.50 [facility] [address] [address]- 6663 Oct, Allergic rhinitis due to pollen J30.1 [facility] [address] [address]- 9141 Oct, ADD (attention deficit disorder) F90.0 [facility] [address] [address]- 5399 Oct, Allergic rhinitis due to pollen 477.0 [facility] [address] [place] [id number] [place] [address] 08441- 3560 Aug, Allergic rhinitis due to pollen 477.0 [facility] [address] [place] [id number] [place] [address] 89525- 8066 Aug, 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 [facility] [address] [id number] [place] [address] 94879- 3831 Aug, [facility] [address] 34242- 7992 Aug, Allergic rhinitis due to pollen 477.0 [facility] [address] 63664- 9069 Aug, Allergic rhinitis due to pollen 477.0 [facility] [address] 47522- 9333 Aug, Allergic rhinitis due to pollen 477.0 [facility] [address] [id number] [place] [address] 75804- 9061 Aug, Exposure to influenza Z20.828 [facility] [address] [id number] Aug, Encounter for dental examination and cleaning without abnormal findings Z01.20 [facility] [address] [id number] [place] [address] 36582- 4803 Aug, Allergic rhinitis due to pollen J30.1 [facility] [id number] [place] [address] 52419- 7467 Aug, [place] [address] [id number] [place] [address] 67881- 8098 Aug, 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 [facility] [id number] [place] [address] 38992- 7050 Jul, [facility] [address] 60320- 7487 Jul, Allergic rhinitis due to pollen 477.0 [facility] [id number] [place] [address] 45461- 8922 Jul, [place] [address] 28668- 4677 Jul, Allergic rhinitis due to pollen 477.0 [place] [address] 03003- 9541 Jun, ADD (attention deficit disorder) F90.0 ; Acquired hypothyroidism E03.9 ; PCOS (polycystic ovarian syndrome) E28.2 ; Polyarthralgia M25.50 and On stimulant medication Z79.899 [place] [address] 73742- 4992 16 Apr, 2015 Encounter for immunization Z23 [place] [address] 74014- 2460 16 Mar, 2015 Allergic rhinitis due to pollen 477.0 [place] [address] 19675- 3814 Mar, Influenza vaccine administered V04.81 [place] [address] 72911- 7604 03 Mar, 2015 [place] [address] 36996- 6178 Jan, Allergic rhinitis due to pollen 477.0 [place] [address] 78638- 6741 Jan, Allergic rhinitis due to pollen 477.0 [facility] [address] 25866- 9826 Jan, Allergic rhinitis due to pollen 477.0 [facility] [id number] [place] [address] [id number] 14 Jan, 2015 Dental examination V72.2 [place] [address] 52933- 1902 Dec, Allergic rhinitis due to pollen 477.0 [facility] [address] [facility] [id number] [address]- 7654 October, [facility] [address] [facility] [id number] 7767 Oct, [facility] [address] [facility] [id number] [address]- 0192 Oct, [facility] [address] [facility] [id number], [place] [address] Aug, [facility] [address] [facility] [id number] [place] [address] Aug, [facility] [address] [id number] [address] Aug, [facility] [id number] [address] Aug, [facility] [address] [facility] [id number][place] [address] Aug, [facility] [address] [id number] [address] Aug, [facility] [address] [id number], [place] [address] Aug, [facility] [address] [id number], [place] [address] Aug, [facility] [address] [facility] [id number], [place] [address] Jul, [facility] [address] [facility] [id number][place] [address]30[place] [address] Jul, [facility] [address] [facility] [id number][place] [address] [address] Jul, [facility] [id number] [address] Jul, [facility] [place] [facility] [address] [id number] [place] [address] Jul, [facility] [place] [facility] [address] [id number] [place] [address] Jul, [facility] [place] [facility] [address] [id number] [place] [address] Jul, [facility] [place] [facility] [address] [id number] [place] [address] Jul, [facility] [place] [facility] [address] [id number] [place] [address] Jul, [facility] [place] [facility] [address] [id number] [place] [address] Jul, [facility] [place] [facility] [address] [id number] [place] [address] Jul, [facility] [place] [facility] [address] [id number] [place] [address] Jun, [facility] [place] [facility] [address] [id number] [place] [address] Jun, [facility] [place] [facility] [address] [id number] [place] [address] Jun, [facility] [facility] [address] [id number], [place] [address] Jun, [facility] [facility] [address] [id number], [place] [address] Jun, [facility] [place] [facility] [address] [id number] [place] [address] Jun, [facility] [place] [facility] [address] [id number] [place] [address] May, [facility] [place] [facility] [address] [id number], [place] [address] May, [facility] [place] [facility] [address] [id number], [place] [address] May, [facility] [place] [facility] [address] [id number] [place] [address]- 2082 May, [facility] [place] [facility] [address] [id number] [place] [address]- 7609 May, [facility] [place] [facility] [address] [facility] [id number] [place] [address]- 0636 May, [facility] [place] [facility] [address] [id number] [place] [address]- [address] Apr, [facility] [place] [facility] [address] [id number] [place] [address]- 6307 Apr, [facility] [place] [facility] [address] [id number] [place] [address]- 6[address] Mar, [facility] [place] [facility] [address] [id number] [place] [address]- 7175 30 Mar, 2014 [facility] [place] [facility] [address] [id number] [place] [address]- [address]778 30 Mar, 2014 [facility] [place] [facility] [address] [id number] [place] [address]- 5319 30 Mar, 2014 [facility] [place] [facility] [address] [facility] [id number] [place] [address]- 6305 Mar, [facility] [place] [facility] [address] [id number] [place] [address] 3432 Mar, [facility] [place] [facility] [address] [id number], [place] [address]- 8[address] Jan, [facility] [place] [facility] [address] [id number] [place] [address]- 6324 Jan, [facility] [place] [facility] [address] [facility] [id number] [place] [address]- 5714 Jan, [facility] [place] [facility] [address] [facility] [id number] [place] [address]- 9263 Jan, [facility] [place] [facility] [address] [id number] [place] [address]- 1676 Jan, [facility] [place] [facility] [address] [id number] [place] [address] Jan, [facility] [place] [facility] [address] [id number] [place] [address]- 1056 Dec, [facility] [place] [facility] [address] [id number] [place] [address]- 9460 Dec, [facility] [place] [facility] [address] [id number] [place] [address]- 9851 Dec, [facility] [place] [facility] [address] [id number] [place] [address]- 2675 Dec, [facility] [place] [facility] [address] [id number] [place] [address]- 9859 Dec, [facility] [place] [facility] [address] [id number] [place] [address]- 8504 Dec, [facility] [place] [facility] [address] [id number] [place] [address]- 6218 Dec, [facility] [place] [facility] [address] [id number] [place] [address]- 3214 Dec, [facility] [place] [facility] [address] [id number] [place] [address]- 3327 Dec, [facility] [place] [facility] [address] [id number] [place] [address]- 8753 Dec, [facility] [place] [facility] [address] [id number] [place] [address]- 6282 Dec, [facility] [place] [facility] [address] [id number] [place] [address]- 4853 Dec, [facility] [place] [address] [id number] [place] [address]- 3152 Dec, [facility] [place] [facility] [address] [id number] [place] [address]- 4318 Dec, [facility] [place] [facility] [address] [id number] [place] [address]- 7022 Dec, [facility] [place] [facility] [address] [id number] [place] [address]- 2225 Dec, [facility] [place] [facility] [address] [id number] [place] [address]- 7220 October, [facility] [place] [facility] [address] [id number] [place] [address]- 1541 October, [facility] [address] [id number] [place] [address]- 0217 October, [facility] [address] [id number] [place] [address]- 8772 October, [facility] [address] [id number] [place] [address]- 5764 October, [facility] [address] [id number] [place] [address]- 9100 October, [facility] [address] [id number] [place] [address]- 1653 Oct, [facility] [address] [id number] [place] [address]- 9790 Oct, [facility] [address] [id number] [place] [address]- 9313 Oct, [facility] [address] [id number] [place] [address]- 6702 Oct, [facility] [facility] [address] [id number] [place] [address]- 7682 Oct, [facility] [address] [id number] [place] [address]- 8801 Oct, [facility] [address] [id number] [place] [address]- 9866 Aug, [facility] [place] [facility] [address] [id number] [place] [address]- 0656 Aug, [facility] [address] [id number] [place] [address]- 3326 Aug, [facility] [address] [id number] [place] [address]- 3516 Aug, [facility] [address] [id number] [place] [address]- 2458 Jul, [facility] [address] [id number] [place] [address]- 7034 Jul, [facility] [address] [id number] [place] [address]- 7193 Jul, [facility] [address] [id number] [place] [address]- 8658 Jul, [facility] [address] [id number] [place] [address]- 4303 Jun, [facility] [address] [id number] [place] [address]- 8445 Jun, [facility] [address] [id number] [place] [address]- 2300 Jun, [facility] [address] [id number] [place] [address]- 1272 Jun, [facility] [address] [id number] [place] [address]- 2547 Jun, [facility] [address] [id number] [place] [address]- 2923 Jun, [facility] [address] [id number] [place] [address]- 7345 Jun, [facility] [address] [id number] [place] [address]- 5260 Jun, [facility] [address] [id number] [place] [address]- 6396 Jun, [facility] [address] [id number] [place] [address]- 3334 Jun, [facility] [address] [id number] [place] [address]- 4076 Jun, [facility] [address] [id number] [place] [address]- 7091 May, [facility] [address] [id number] [place] [address]- 8739 May, [facility] [address] [id number] [place] [address]- 3491 May, [facility] [address] [id number] [place] [address]- 3686 May, [facility] [address] [id number] [place] [address]- 0671 May, [facility] [address] [id number] [place] [address]- 6869 May, [facility] [address] [id number] [place] [address]- 8605 May, [facility] [address] [id number], [place] [address]- 4966 Apr, [facility] [address] [id number], [place] [address]- 8077 Apr, [facility] [address] [id number], [place] [address]- 8343 Apr, [facility] [address] [id number] [place] [address]- 4167 Apr, [facility] [address] [id number], [place] [address]- 5531 Mar, [facility] [address] [id number], [place] [address]- 2209 Mar, [facility] [address] [id number], [place] [address]- 4014 Mar, [facility] [address] [id number] [place] [address]- 1995 Mar, [facility] [address] [id number] [place] [address]- 2574 Mar, [facility] [address] [id number] [place] [address]- 0421 Mar, [facility] [address] [id number] [place] [address]- 7865 Jan, [facility] [address] [id number] [place] [address]- 8310 Jan, [facility] [address] [id number] [place] [address]- 5310 Jan, [facility] [address] [id number] [place] [address]- 8223 Jan, [facility] [address] [id number] [place] [address]- 1865 Jan, [facility] [address] [id number] [place] [address]- 4950 Dec, [facility] [address] [id number] [place] [address]- 1377 Dec, [facility] [address] [id number] [place] [address]- 2501 Dec, [facility] [address] [id number] [place] [address]- 8491 Dec, [facility] [address] [id number] [place] [address]- 1367 Dec, [facility] [address] [id number] [place] [address]- 8784 Dec, [facility] [address] [id number] [place] [address]- 9584 Dec, [facility] [address] [id number] [place] [address]- 6126 Dec, [facility] [address] [id number] [place] [address]- 5087 October, [facility] [address] [id number] [place] [address]- 1596 October, [facility] [address] [id number] [place] [address]- 1416 October, [facility] [address] [id number] [place] [address]- 6168 Oct, [facility] [address] [id number] [place] [address]- 3964 Oct, [facility] [address] [id number] [place] [address]- 1949 Oct, [facility] [address] [id number] [place] [address]- 8186 Oct, [facility] [address] [id number] [place] [address]- 2877 Aug, [facility] [address] [id number] [place] [address]- 7326 Aug, [facility] [address] [id number] [place] [address]- 6395 Aug, [facility] [address] [id number] [place] [address]- 7229 Jul, [facility] [address] [id number] [place] [address]- 6246 May, [facility] [address] [id number] [place] [address]- 2546 May, [facility] [address] [id number] [place] [address]- 2546 Apr, [facility] [address] [id number] [place] [address]- 9448 Apr, [facility] [address] [id number] [place] [address]- 0989 Apr, [facility] [facility] [address] [id number] [place] [address]- 9107 Apr, [facility] [address] [id number] [place] [address]- 0044 Apr, [facility] [address] [id number] [place] [address]- 9207 Apr, [facility] [place] [facility] [address] [id number] [place] [address]- 2554 Apr, [facility] [place] [address] [id number] [place] [address]- 7572 Apr, [facility] [address] [id number] [place] [address]- 4994 Apr, [facility] [place] [facility] [address] [id number] [place] [address]- 7747 Apr, [facility] [place] [address] [id number] [place] [address]- 3153 Apr, [facility] [address] [id number], [place] [address]- 9976 Apr, [facility] [address] [id number], [place] [address]- 2474 Mar, [facility] [address] [id number], [place] [address]- 5397 Jan, [facility] [address] [id number] [place] [address]- 8506 Dec, [facility] [address] [id number][place] 3709 October, [facility] [place] [facility] [address] [id number] [place] [address]72 Oct, [facility] [address] [facility] [id number] [place] [address]- 3718 Oct, [facility] [address] [facility] [id number] [place] [address]- 5376 Oct, [facility] [address] [facility] [id number] [place] [address]- 5316 Aug, [facility] [address] [facility] [id number] [place] [address] 2546 Aug, [facility] [address] [facility] [id number] [place] [address]- 0847 29 Aug, 2011 [facility] [id number] [place] [address], [place] [address]- 0556 16 Aug, 2011 [facility] [id number] [place] [address], [place] [address]- 9206 15 Aug, 2011 [facility] [id number] [place] [address], [place] [address]- 5697 Aug, [facility] [id number] [place] [address]- 3447 Jun, [facility] [id number] [place] [address], [place] [address]- 6270 Apr, [facility] [id number], [place] [address]- 3894 Jun, [facility] [id number] [place] [address] 2546 Jun, [facility] [address] [id number], [place] [address] 2542 May, [facility] [id number], [place] [address]- 1614 May, [facility] [id number] [place] [address] 2546 15 Apr, 2009 [facility] [id number] [address] 13 Apr, 2009 IMMUNIZATIONS No Known Immunizations SOCIAL HISTORY Never Assessed REASON FOR VISIT Allergy injection(s) patricia keith PLAN OF CARE VITAL SIGNS MEDICATIONS Unknown Medications RESULTS No Results PROCEDURES Procedure Date Ordered Result Body Site IMMUNOTHERAPY, 2 OR MORE INJECTIONS 2017-12-28 N/A IMMUNOTHERAPY INJECTIONS December 28, 2017 INSTRUCTIONS MEDICATIONS ADMINISTERED No Known Medications [...]
--- OUTSIDE RECORDS SUMMARY | 2018-07-18 07:21 | XMS REPORT ---
Author Author BRANDY SAGAR [facility] Address [address] [place] [address] Care Team Providers Care Pharmacy Coordinator Name Role Phone BRANDYTEZ HOYTHANY Unavailable PROBLEMS Type Condition ICD9-CM Code UGK10-GU Code Onset Dates Condition Status SNOMED Code Problem Migraine with aura and without status migrainosus, not intractable G43.109 Active 1871937 Problem PCOS (polycystic ovarian syndrome) E28.2 Active 06692069 Problem Uncomplicated severe persistent asthma J45.50 Active 395861772 Problem Severe persistent asthma with exacerbation J45.51 Active 509872876 Problem Other elevated white blood cell (WBC) count D72.828 Active 915074088 Problem Multiple food allergies Z91.018 Active 857492659 Problem Pure hypercholesterolemia E78.00 Active 368077381 Problem Current chronic use of inhaled steroid Z79.51 Active 932819841 Problem Asthma exacerbation J45.901 Active 145753842 Problem ADD (attention deficit disorder) F90.0 Active 343670323 Problem Allergic rhinitis due to pollen J30.1 Active 17705526 Problem Vitamin D deficiency E55.9 Active 65444256 Problem Major depressive disorder, recurrent episode, mild F33.0 Active 910809165 Problem Acquired hypothyroidism E03.9 Active 383735804 Problem Gastroesophageal reflux disease without esophagitis K21.9 Active 535889315 ALLERGIES No Information ENCOUNTERS Encounter Location Date Diagnosis [place] [id number], [place] [address] Jan, [place] [address] [place] [id number] [place] [address] 44375- 2064 Jan, Allergic reaction, initial encounter T78.40XA [place] [address], [place] [address] Dec, Allergic rhinitis due to pollen J30.1 [place] [address] [place] [id number] [place] [address] 36593- 9859 Dec, [facility] [address] [place] [address] [id number] [place] [address] 92490- 4616 Dec, Allergic rhinitis due to pollen J30.1 [facility] [address] [place] [address] [id number] [place] [address] 03226- 4517 Dec, ADD (attention deficit disorder) F90.0 [place] [address] [place] [id number] [place] [address] 97036- 7642 Dec, ADD (attention deficit disorder) F90.0 and Uncomplicated severe persistent asthma J45.50 [place] [address] 82102- 8488 Dec, Allergic rhinitis due to pollen J30.1 [place] [address] [place] [id number] [place] [address] 73119- 1091 Dec, [facility] [address] [place] [address] [id number] [place] [address] 21495- 9099 October, Allergic rhinitis due to pollen J30.1 [facility] [address] [place] [address] [id number] [place] [address] 64578- 2634 October, Allergic rhinitis due to pollen J30.1 [place] [address] [place] [id number] [place] [address] 13464- 0226 Oct, [facility] [address] [place] [address] [id number] [place] [address] 11382- 7922 Oct, Allergic rhinitis due to pollen J30.1 [facility] [address] [place] [id number] [place] [address] 07944- 2267 Oct, [facility] [address] [place] [address] [id number] [place] [address] 79175- 4593 Oct, Allergic rhinitis due to pollen J30.1 [facility] [address] [place] [address] 32142- 8826 Oct, Severe persistent asthma with exacerbation J45.51 and Pneumonia due to Haemophilus influenzae, unspecified laterality, unspecified part of lung J14 [place] [address] [place] [id number] [place] [address] 08400- 9500 Oct, ADD (attention deficit disorder) F90.0 [place] [address] 48108- 1649 12 Aug, 2017 Haemophilus influenzae infection A49.2 [place] [address] 07847- 6554 Aug, Cough productive of purulent sputum R05 [place] [address] 074091- 0799 Aug, [place] [address] 48061 2500 Aug, Pulmonary congestion R09.89 [place] [address] 59719- 6667 Aug, Severe persistent asthma with exacerbation J45.51 ; Hiatal hernia K44.9 and Gastroesophageal reflux disease without esophagitis K21.9 [place] [address] 48984- 9191 Aug, Other elevated white blood cell (WBC) count D72.828 [place] [address] 10931- 0715 Aug, Uncomplicated severe persistent asthma J45.50 [place] [address] 84982- 1969 Aug, Pure hypercholesterolemia E78.00 ; Uncomplicated severe persistent asthma J45.50 and Acquired hypothyroidism E03.9 [place] [address] [place] [address]- 8126 20 Aug, 2017 Acquired hypothyroidism E03.9 ; Pure hypercholesterolemia E78.00 and Uncomplicated severe persistent asthma J45.50 [place] [address] [place] [address]18- 0645 15 Aug, 2017 Allergic rhinitis due to pollen J30.1 [place] [address] [place] [id number] [place] [address] 30643- 3056 Aug, Allergic rhinitis due to pollen J30.1 [place] [address] [place] [id number] [place] [address] 90252- 2742 Aug, [facility] [address] [id number] Jul, Pharyngitis, unspecified etiology J02.9 and Lymphadenopathy R59.1 [place] [address] 28865- 2658 Jul, ADD (attention deficit disorder) F90.0 [place] [address] 56661- 9250 Jul, Allergic rhinitis due to pollen J30.1 [place] [address] 08390- 9640 Jul, Dental examination Z01.20 [place] [address] [place] [id number] [place] [address] 73293- 0365 Jun, Cough productive of purulent sputum R05 [place] [address] [place] [id number] [place] [address] 96030- 8000 Jun, Allergic rhinitis due to pollen J30.1 [place] [address] [place] [id number] [place] [address] 23874- 4905 Jun, [place] [address] [place] [id number] [place] [address] 17750- 6297 Jun, Allergic rhinitis due to pollen J30.1 [place] [address] [place] [id number] [place] [address] 47617- 3341 Jun, Allergic rhinitis due to pollen J30.1 [place] [address] [place] [id number] [place] [address] 36589- 5814 May, Allergic rhinitis due to pollen J30.1 [place] [address] [place] [id number] [place] [address] 33433- 9736 May, Pneumonia due to Haemophilus influenzae, unspecified laterality, unspecified part of lung J14 [place] [address] [place] [id number] [place] [address] 31287- 2195 May, Allergic rhinitis due to pollen J30.1 [place] [address] [place] [id number] [place] [address] 73892- 6889 May, Other adverse food reactions, not elsewhere classified, initial encounter T78.1XXA and Pneumonia due to Haemophilus influenzae, unspecified laterality, unspecified part of lung J14 [place] [address] 94174- 4427 May, Pneumonia due to Haemophilus influenzae, unspecified laterality, unspecified part of lung J14 [place] [address] [place] [id number] [place] [address] 25764- 0960 May, Multiple food allergies Z91.018 ; Uncomplicated severe persistent asthma J45.50 ; Cough productive of purulent sputum R05 and Uses central nervous system stimulants F15.90 [place] [address] [place] [id number] [place] [address] 83435- 8756 Apr, Allergic rhinitis due to pollen J30.1 [place] [address] [place] [id number] [place] [address] 35512- 7148 Apr, Allergic rhinitis due to pollen J30.1 [place] [address] [place] [id number] [place] [address] 62051- 2179 Apr, Allergic rhinitis due to pollen J30.1 [place] [address] [place] [id number] [place] [address] 67000- 8936 Apr, ADD (attention deficit disorder) F90.0 [place] [address] [place] [id number] [place] [address] 47276- 9429 Mar, Allergic rhinitis due to pollen J30.1 [place] [address] [place] [id number] [place] [address] 34523- 2274 Mar, Encounter for immunization Z23 [facility] [address] [place] [id number] [place] [address] 24505- 1299 Mar, [facility] [address] [place] [id number] [place] [address] 44608- 5288 14 Mar, 2017 Allergic rhinitis due to pollen J30.1 [facility] [address] [place] [id number] [place] [address] 06926- 1515 Mar, Allergic rhinitis due to pollen J30.1 [place] [address] [place] [id number] [place] [address] 29134- 0572 Jan, Allergic rhinitis due to pollen J30.1 [place] [address] [place] [id number] [place] [address] 02554- 1538 Jan, Allergic rhinitis due to pollen J30.1 [place] [address] [place] [id number] [place] [address] 31399- 0189 Dec, Uncomplicated severe persistent asthma J45.50 [place] [address] [place] [id number] [place] [address] 11251- 4879 Dec, Allergic rhinitis due to pollen J30.1 [place] [address] [place] [id number] [place] [address] 25615- 6729 Dec, Allergic rhinitis due to pollen J30.1 [place] [address] [place] [id number] [place] [address] 59726- 7082 Dec, Allergic rhinitis due to pollen J30.1 [place] [address] [place] [id number] [place] [address] 73831- 9098 Dec, ADD (attention deficit disorder) F90.0 [place] [address] 13747- 2072 Dec, Allergic rhinitis due to pollen J30.1 [place] [address] [place] [id number] [place] [address] 69760- 1730 Dec, Visit for TB skin test Z11.1 and Screening for tuberculosis Z11.1 [place] [address] [place] [address] 28169- 1210 Dec, Uncomplicated severe persistent asthma J45.50 ; Palpitations R00.2 ; Pericardial effusion (noninflammatory) I31.3 and Chest discomfort R07.89 [place] [address] [place] [id number] [place] [address] 93106- 2026 Dec, Allergic rhinitis due to pollen J30.1 [place] [address] [place] [id number] [place] [address] 74018- 5032 Dec, Chronic cough R05 [place] [address] 10495- 1456 Dec, [place] [address] [place] [id number] [place] [address] 75147- 6584 Dec, Allergic rhinitis due to pollen J30.1 [place] [address] 39269- 3620 Dec, Allergic rhinitis due to pollen J30.1 [place] [address] [place] [id number] [place] [address] 46458- 7754 Dec, Chronic cough R05 [place] [address] [place] [id number] [place] [address] 28104- 6002 October, Allergic rhinitis due to pollen J30.1 [place] [address] [place] [id number] [place] [address] 38314- 5370 October, Allergic rhinitis due to pollen J30.1 [place] [address] [place] [id number] [place] [address] 40684- 9204 October, [place] [address] 21610- 5873 October, Asthma exacerbation J45.901 [place] [address] [place] [id number] [place] [address] 87845- 8138 October, Asthma exacerbation J45.901 and Current chronic use of inhaled steroid Z79.51 [place] [address] [place] [id number] [place] [address] 44988- 6867 October, Uncomplicated severe persistent asthma J45.50 [place] [address] 06906- 0047 October, Allergic rhinitis due to pollen J30.1 [place] [address] 21439- 8079 Oct, [place] [address] 14936- 7978 Oct, Asthma exacerbation J45.901 and Sputum production R05 [address] 27350- 2787 Oct, Asthma exacerbation J45.[address] 17595- 9030 Oct, ADD (attention deficit disorder) F90.[address] 96737- 1079 Oct, ADD (attention deficit disorder) F90.[address] 43630- 5244 Aug, Allergic rhinitis due to pollen J30.[address] 68602- 8717 Aug, Atypical pneumonia J18.[address] 53600- 4415 Aug, Allergic rhinitis due to pollen J30.[address] 89330- 3998 Aug, Acquired hypothyroidism E03.[address] 23808- 0325 Aug, Multiple food allergies Z91.018 ; Elevated blood pressure reading R03.0 and Anaphylaxis, subsequent encounter T78.2XXD [place] [address] [place] [id number] [place] [address] 188737089 Aug, [place] [address] 58942- 4877 Aug, Anaphylaxis, initial encounter T78.2XXA [place] [address] 43093- 5243 Aug, Allergic rhinitis due to pollen J30.1 [place] [address] 71915- 4327 Aug, Dental examination Z01.20 [place] [address] 59855- 9288 Aug, Allergic rhinitis due to pollen J30.1 [place] [address] 55521- 9174 Aug, Acquired hypothyroidism E03.9 and Pure hypercholesterolemia E78.00 [place] [address] 32878- 7598 Aug, ADD (attention deficit disorder) F90.0 ; Acquired hypothyroidism E03.9 and Pure hypercholesterolemia E78.00 [place] [address] [place] [id number] [place] [address] 86627- 1575 Aug, Asthma exacerbation J45.901 [place] [address] [place] [id number] [place] [address] 36998- 2412 Jul, Allergic rhinitis due to pollen J30.1 [place] [address] [place] [id number] [place] [address] 46368- 1065 Jul, Allergic rhinitis due to pollen J30.1 [place] [address] [place] [id number] [place] [address] 40496- 1126 Jul, [place] [address] [place] [id number] [place] [address] 75849- 1861 Jul, Allergic rhinitis due to pollen J30.1 [place] [address] [place] [address] [place] [address]- 8772 Jul, Other halfway (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 and ADD ( attention deficit disorder) F90.0 [facility] [address] [place] [id number] [place] [address] 80772- 4699 Jul, Other halfway (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 and ADD ( attention deficit disorder) F90.0 [facility] [address] [place] [id number] [place] [address] 26513- 0708 Jul, [facility] [address] [place] [id number] [place] [address] 91279- 0935 Jun, Allergic rhinitis due to pollen J30.1 [place] [address] [place] [id number] [place] [address] 47163- 6413 Jun, Allergic rhinitis due to pollen J30.1 [place] [address] [place] [id number] [place] [address] 20664- 2891 Jun, [place] [address] [place] [id number] [place] [address] 86465- 0897 May, Allergic rhinitis due to pollen J30.1 [place] [address] [place] [id number] [place] [address] 24696- 3813 May, Allergic rhinitis due to pollen J30.1 [place] [address] [place] [id number] [place] [address] 12237- 4850 Apr, Allergic rhinitis due to pollen J30.1 [facility] [address] [place] [id number] [place] [address] 81676- 0958 Apr, Allergic rhinitis due to pollen J30.1 [place] [address] [place] [id number] [place] [address] 30835- 2442 Apr, Encounter for immunization Z23 [facility] [address] [place] [id number] [place] [address] 69893- 4421 Apr, [facility] [address] [place] [id number] [place] [address] 94485- 4349 Mar, Allergic rhinitis due to pollen J30.1 [facility] [address] [place] [address] 69296- 9868 Mar, Multiple allergies Z88.9 [facility] [address] [place] [id number] [place] [address] 16021- 6068 Mar, Candidal vaginitis B37.3 [facility] [address] [place] [id number] [place] [address] 56513- 1393 Mar, Allergic rhinitis due to pollen J30.1 [facility] [address] [place] [id number] [place] [address] 58223- 3779 Jan, Asthma exacerbation J45.901 ; Fatigue, unspecified type R53.83 and Community acquired pneumonia J18.9 [facility] [address] [place] [id number] [place] [address] [id number] Jan, Encounter for dental examination Z01.20 [facility] [address] [place] [id number] [place] [address] 22772- 5029 Jan, Allergic rhinitis due to pollen J30.1 [facility] [address] [place] [id number] [place] [address] 11312- 0065 Dec, Allergic rhinitis due to pollen J30.1 [facility] [address] [place] [address] 63812- 0237 Dec, [facility] [address] [place] [id number] [place] [address] 01782- 5189 Dec, Allergic rhinitis due to pollen J30.1 [facility] [address] [place] [id number] [place] [address] 07176- 9472 Dec, [facility] [address] [place] [id number] [place] [address] 48770- 9972 Dec, [facility] [address] [place] [id number] [place] [address] 65681- 2241 Dec, [facility] [address] [place] [id number] [address]- 0718 Dec, Allergic rhinitis due to pollen J30.1 [facility] [address], [place] [address]- 3679 Dec, [facility] [address], [place] [address]- 2665 Dec, [facility] [address] [place] [address] 71587- 5781 Dec, Allergic rhinitis due to pollen J30.1 [facility] [address], [place] [address]- 0491 October, Allergic rhinitis due to pollen J30.1 [facility] [address] [place] [address] 35105- 4248 October, Allergic rhinitis due to pollen J30.1 [facility] [address] [place] [id number] [address]- 0590 October, [facility] [address] [place] [id number] [place] [address] 50585- 9745 October, [facility] [address] [place] [id number] [place] [address] 69092- 8905 October, ADD (attention deficit disorder) F90.0 ; Major depressive disorder, recurrent episode, mild F33.0 and Uncomplicated severe persistent asthma J45.50 [facility] [address], [place] [address]- 4100 Oct, Allergic rhinitis due to pollen J30.1 [facility] [address], [place] [address]- 6846 Oct, ADD (attention deficit disorder) F90.0 [facility] [address], [place] [address]- 3995 Oct, Allergic rhinitis due to pollen 477.0 [facility] [address] [address]- 4325 Aug, Allergic rhinitis due to pollen 477.0 [facility] [address] [place] [address] 51719- 1932 Aug, 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 [facility] [address] [place] [id number] [place] [address] 29802- 9764 Aug, [facility] [address] [place] [id number] [place] [address] 55547- 2222 Aug, Allergic rhinitis due to pollen 477.0 [facility] [address] [place] [id number] [place] [address] 62769- 3668 Aug, Allergic rhinitis due to pollen 477.0 [facility] [address] [place] [id number] [place] [address] 25206- 3279 Aug, Allergic rhinitis due to pollen 477.0 [place] [address] [place] [id number] [place] [address] 71486- 7915 Aug, Exposure to influenza Z20.828 [facility] [id number] [place] [address] [id number] Aug, Encounter for dental examination and cleaning without abnormal findings Z01.20 [place] [address] [place] [id number] [place] [address] 73809- 8953 Aug, Allergic rhinitis due to pollen J30.1 [place] [address] [place] [id number] [place] [address] 08175- 9013 Aug, [facility] [address] [place] [id number] [place] [address] 68797- 0902 Aug, 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 [facility] [address] [place] [id number] [place] [address] 35611- 8882 Jul, [place] [address] [place] [id number] [place] [address] 62788- 3429 Jul, Allergic rhinitis due to pollen 477.0 [facility] [address] [id number] [place] [address] 85623- 2563 Jul, [facility] [address] [place] [id number] [place] [address] 32515- 0270 Jul, Allergic rhinitis due to pollen 477.0 [facility] [address] [place] [id number] [place] [address] 70903- 0612 Jun, ADD (attention deficit disorder) F90.0 ; Acquired hypothyroidism E03.9 ; PCOS (polycystic ovarian syndrome) E28.2 ; Polyarthralgia M25.50 and On stimulant medication Z79.899 [place] [address] 46208- 2445 16 Apr, 2015 Encounter for immunization Z23 [place] [address] 38609- 1828 16 Mar, 2015 Allergic rhinitis due to pollen 477.0 [place] [address] 37970- 8739 Mar, Influenza vaccine administered V04.81 [place] [address] 88340- 7965 Mar, [place] [address] 40619- 9147 Jan, Allergic rhinitis due to pollen 477.0 [place] [address] 36930- 1001 Jan, Allergic rhinitis due to pollen 477.0 [place] [address] [address] Jan, Allergic rhinitis due to pollen 477.0 [facility] [address] [place] [id number] [place] [id number] Jan, Dental examination V72.2 [place] [address] [address] Dec, Allergic rhinitis due to pollen 477.0 [place] [address] [address] October, [facility] [place] [facility] [address] [id number] [place] [address] Oct, [facility] [place] [facility] [address] [id number] [place] [address] Oct, [facility] [place] [facility] [address] [facility] [id number] [place] [address] Aug, [facility] [place] [facility] [address] [id number] [place] [address] Aug, [facility] [place] [facility] [address] [id number] [place] [address] Aug, [facility] [place] [facility] [address] [facility] [id number] [place] [address] Aug, [facility] [place] [facility] [address] [facility] [id number] [place] [address] Aug, [facility] [place] [facility] [address] [id number] [place] [address] Aug, [facility] [place] [facility] [address] [id number] [place] [address] Aug, [facility] [place] [facility] [address] [facility] [id number] [place] [address] Aug, [facility] [place] [facility] [address] [id number], [place] [address] Jul, [facility] [place] [facility] [address] [id number], [place] [address] Jul, [facility] [place] [facility] [address] [id number] [place] [address] Jul, [facility] [place] [facility] [address] [id number] [place] [address] Jul, [facility] [place] [facility] [address] [facility] [id number] [place] [address] Jul, [facility] [place] [facility] [address] [id number] [place] [address] 07 Jul, 2014 [facility] [place] [facility] [address] [id number] [place] [address] Jul, [facility] [place] [facility] [address] [id number] [place] [address] Jul, [facility] [place] [facility] [address] [id number] [place] [address] 27[address] Jul, [facility] [place] [facility] [address] [id number] [place] [address] 9731 Jul, [facility] [place] [facility] [address] [id number] [place] [address] Jul, [facility] [place] [facility] [address] [id number] [place] [address] Jun, [facility] [place] [facility] [address] [id number] [place] [address] Jun, [facility] [place] [facility] [address] [id number] [place] [address] 9517 Jun, [facility] [place] [facility] [address] [id number] [place] [address]- 6514 Jun, [facility] [place] [facility] [address] [id number] [place] [address] Jun, [facility] [place] [facility] [address] [id number] [place] [address] Jun, [facility] [place] [facility] [address] [id number] [place] [address] 7597 May, [facility] [place] [facility] [address] [id number] [place] [address] 2386 May, [facility] [place] [facility] [address] [id number] [place] [address]- 6198 May, [facility] [place] [facility] [address] [id number] [place] [address]- 1701 May, [facility] [place] [facility] [address] [id number] [place] [address]- 7422 May, [facility] [place] [facility] [address] [id number] [place] [address]- 9660 May, [facility] [place] [facility] [address] [id number] [place] [address]- 8584 Apr, [facility] [place] [facility] [address] [id number] [place] [address]- 2488 Apr, [facility] [place] [facility] [address] [id number] [place] [address]- 8817 Mar, [facility] [place] [facility] [address] [id number] [place] [address]- 3335 Mar, [facility] [place] [facility] [address] [id number] [place] [address]- 4298 Mar, [facility] [place] [facility] [address] [id number] [place] [address]- 9371 Mar, [facility] [place] [facility] [address] [id number] [place] [address]- 1821 Mar, [facility] [place] [facility] [address] [id number] [place] [address]- 3227 Mar, [facility] [place] [facility] [address] [id number] [place] [address]- 8400 Jan, [facility] [place] [facility] [address] [id number], [place] [address] Jan, [facility] [place] [facility] [address] [id number] [place] [address]- 8190 Jan, [facility] [place] [facility] [address] [id number] [place] [address]- 2225 Jan, [facility] [place] [facility] [address] [id number] [place] [address]- 2957 Jan, [facility] [place] [facility] [address] [id number] [place] [address]- 3686 Jan, [facility] [place] [facility] [address] [id number] [place] [address]- 2815 Dec, [facility] [place] [facility] [address] [id number] [place] [address]- 9615 Dec, [facility] [place] [facility] [address] [id number] [place] [address]- 4029 Dec, [facility] [place] [facility] [address] [id number] [place] [address]- 8997 Dec, [facility] [place] [facility] [address] [id number] [place] [address]- 9505 Dec, [facility] [place] [facility] [address] [id number] [place] [address]- 3793 Dec, [facility] [place] [facility] [address] [id number] [place] [address]- 7320 Dec, [facility] [place] [facility] [address] [id number] [place] [address]- 0066 Dec, [facility] [place] [facility] [address] [id number] [place] [address]- 6094 Dec, [facility] [place] [facility] [address] [id number] [place] [address]- 9788 Dec, [facility] [place] [facility] [address] [id number] [place] [address]- 1036 Dec, [facility] [place] [facility] [address] [id number] [place] [address]- 8086 Dec, [facility] [place] [facility] [address] [id number] [place] [address]- 6779 Dec, [facility] [place] [facility] [address] [id number] [place] [address]- 5801 Dec, [facility] [place] [facility] [address] [id number] [place] [address]- 7989 Dec, [facility] [place] [facility] [address] [id number] [place] [address]- 9458 Dec, [facility] [place] [facility] [address] [id number] [place] [address]- 9032 October, [facility] [place] [facility] [address] [id number] [place] [address]- 3859 October, [facility] [place] [facility] [address] [id number] [place] [address]- 4734 October, [facility] [place] [facility] [address] [id number] [place] [address]- 1828 October, [facility] [place] [facility] [address] [id number] [place] [address]- 4367 October, [facility] [place] [facility] [address] [id number] [place] [address]- 3926 October, [facility] [place] [facility] [address] [id number] [place] [address]- 6163 Oct, [facility] [place] [facility] [address] [id number] [place] [address]- 8396 Oct, [facility] [place] [facility] [address] [id number] [place] [address]- 1700 Oct, [facility] [place] [facility] [address] [id number] [place] [address]- 1562 Oct, [facility] [place] [facility] [address] [id number] [place] [address]- 8897 Oct, [facility] [place] [facility] [address] [id number] [place] [address]- 5338 Oct, [facility] [place] [facility] [address] [id number] [place] [address]- 6856 Aug, [facility] [place] [facility] [address] [id number] [place] [address]- 8141 Aug, [facility] [place] [facility] [address] [id number] [place] [address]- 1504 Aug, [facility] [address] [id number] [place] [address]- 0795 Aug, [facility] [place] [facility] [address] [id number] [place] [address]- 1621 Jul, [facility] [address] [id number] [place] [address]- 7006 Jul, [facility] [place] [facility] [address] [id number] [place] [address]- 8771 Jul, [facility] [address] [id number] [place] [address]- 5971 Jul, [facility] [address] [id number] [place] [address]- 0912 Jun, [facility] [address] [id number] [place] [address]- 6847 Jun, [facility] [address] [id number] [place] [address]- 7246 Jun, [facility] [address] [id number] [place] [address]- 3531 Jun, [facility] [place] [facility] [address] [id number] [place] [address]- 4421 Jun, [facility] [address] [id number] [place] [address]- 5290 Jun, [facility] [place] [facility] [address] [id number], [place] [address]- 1802 Jun, [facility] [place] [facility] [address] [id number] [place] [address] Jun, [facility] [place] [facility] [address] [id number] [place] [address] Jun, [facility] [place] [facility] [address] [id number] [place] [address]- 7066 Jun, [facility] [place] [facility] [address] [id number] [place] [address]- 7245 Jun, [facility] [address] [id number] [place] [address]- 9257 May, [facility] [place] [facility] [address] [id number] [place] [address]- 8924 May, [facility] [address] [id number] [place] [address]- 4548 May, [facility] [place] [facility] [address] [id number] [place] [address]- 0567 May, [facility] [address] [id number] [place] [address]- 2472 May, [facility] [place] [facility] [address] [id number] [place] [address]- 8104 May, [facility] [place] [facility] [address] [id number] [place] [address]- 6133 May, [facility] [address] [id number] [place] [address]- 0933 Apr, [facility] [place] [facility] [address] [id number] [place] [address]- 2510 Apr, [facility] [address] [id number] [place] [address]- 7687 Apr, [facility] [place] [facility] [address] [id number] [place] [address]- 3551 Apr, [facility] [place] [facility] [address] [id number] [place] [address]- 2544 27 Mar, 2013 [facility] [place] [facility] [address] [id number] [place] [address] 26 Mar, 2013 [facility] [place] [facility] [address] [id number] [place] [address]- 5351 Mar, [facility] [place] [facility] [address] [id number] [place] [address] Mar, [facility] [place] [facility] [address] [id number] [place] [address]- 0605 Mar, [facility] [place] [facility] [address] [id number] [place] [address]- 3788 Mar, [facility] [place] [facility] [address] [id number] [place] [address]- 3569 Jan, [facility] [place] [facility] [address] [id number] [place] [address]- 9331 Jan, [facility] [place] [facility] [address] [id number] [place] [address]- 4626 Jan, [facility] [place] [facility] [address] [id number] [place] [address]- 9918 Jan, [facility] [place] [facility] [address] [id number] [place] [address]- 6546 Jan, [facility] [place] [facility] [address] [id number] [place] [address]- 3481 Dec, [facility] [place] [facility] [address] [id number] [place] [address]- 6552 Dec, [facility] [place] [facility] [address] [id number] [place] [address]- 3709 Dec, [facility] [place] [facility] [address] [id number] [place] [address]- 1212 Dec, [facility] [place] [facility] [address] [id number] [place] [address]- 0006 Dec, [facility] [place] [facility] [address] [id number] [place] [address]- 9097 Dec, [facility] [place] [facility] [address] [id number] [place] [address]- 6777 Dec, [facility] [place] [facility] [address] [id number] [place] [address]- 9952 Dec, [facility] [place] [facility] [address] [id number] [place] [address]- 9480 October, [facility] [address] [id number] [place] [address]- 4071 October, [facility] [address] [id number] [place] [address]- 4359 October, [facility] [address] [id number] [place] [address]- 8254 Oct, [facility] [place] [facility] [address] [id number] [place] [address]- 5992 Oct, [facility] [address] [id number] [place] [address]- 5592 Oct, [facility] [address] [id number] [place] [address]- 3743 Oct, [facility] [address] [id number] [place] [address]- 6479 Aug, [facility] [address] [id number] [place] [address]- 8776 Aug, [facility] [address] [id number] [place] [address]- 6039 Aug, [facility] [address] [facility] [id number] [place] [address]- 9910 Jul, [facility] [address] [id number] [place] [address]- 7228 May, [facility] [place] [facility] [address] [id number], [place] [address]- 4389 May, [facility] [place] [facility] [address] [id number] [place] [address]- 3714 Apr, [facility] [place] [facility] [address] [id number] [place] [address]- 4628 Apr, [facility] [address] [id number] [place] [address]- 5190 Apr, [facility] [place] [facility] [address] [id number] [place] [address]- 0952 Apr, [facility] [place] [facility] [address] [id number] [place] [address]- 9464 Apr, [facility] [place] [facility] [address] [id number] [place] [address]- 7678 Apr, [facility] [place] [facility] [address] [id number] [place] [address]- 0343 Apr, [facility] [place] [facility] [address] [id number] [place] [address]- 0742 Apr, [facility] [place] [facility] [address] [id number] [place] [address]- 9307 Apr, [facility] [place] [facility] [address] [id number] [place] [address]- 8894 Apr, [facility] [place] [facility] [address] [id number] [place] [address]- 1335 Apr, [facility] [place] [facility] [address] [id number] [place] [address]- 5575 Apr, [facility] [place] [facility] [address] [id number] [place] [address]- 8558 Mar, [facility] [place] [facility] [address] [id number] [place] [address]- 9554 Jan, [facility] [place] [facility] [address] [id number] [place] [address]- 3960 Dec, [facility] [place] [facility] [address] [id number] [place] [address]- 3472 October, [facility] [place] [facility] [address] [id number] [place] [address]- 0022 Oct, [facility] [place] [facility] [address] [id number] [place] [address]- 0087 Oct, [facility] [place] [facility] [address] [id number] [place] [address]- 8900 Oct, [facility] [id number], [place] [address]- 4936 Aug, [facility] [id number] [place] [address]- 9106 Aug, [facility] [id number], [place] [address]- 9073 Aug, [facility] [id number] [place] [address] 24600- 3907 Aug, [facility] [id number] [place] [address] 844[address]- 3604 Aug, [facility] [id number] [place] [address]38[address]- 1936 Aug, [facility] [id number] [place] [address] 42484- 3816 Jun, [facility] [id number] [place] [address] 26858- 7092 Apr, [facility] [id number] [place] [address]- 1625 Jun, [facility] [id number] [address]9 Jun, [facility] [id number], [place] [address]- 5968 May, [facility] [id number], [place] [address]- 1422 May, [facility] [id number] [place] [address] 821611- 9379 Apr, [facility] [id number] [address]150 Apr, IMMUNIZATIONS No Known Immunizations SOCIAL HISTORY Never Assessed REASON FOR VISIT Allergy injection(s) PLAN OF CARE Activity Details Follow Up 1 Week Reason: VITAL SIGNS MEDICATIONS Unknown Medications RESULTS No Results PROCEDURES Procedure Date Ordered Result Body Site IMMUNOTHERAPY, 2 OR MORE INJECTIONS 2017-11-30 N/A IMMUNOTHERAPY INJECTIONS November 30, 2017 INSTRUCTIONS MEDICATIONS ADMINISTERED No Known Medications MEDICAL (GENERAL) HISTORY Type Description Date Medical History Hypothyroid Medical History Asthma Medical History Migraine Headaches Medical History Depression Medical History ADHD Medical History GERD Medical History Allergic Rhinitis Medical History PCOS Surgical History Left wrist plate 2002 Surgical History 2003 Surgical History 2009 Surgical History EGD 2011 Surgical History Hiatal Hernia Repair and Fundoplication 2012 Surgical History 2014 Surgical History Wound Dehisance 2014 Hospitalization History see above surgeries Hospitalization History [facility]actic [facility] 08/23/16
--- OUTSIDE RECORDS SUMMARY | 2018-07-18 07:21 | XMS REPORT ---
Author Author BALJEET WILKINS [facility] Address [address] [place] [address] Care Team Providers Care Assistant Professor Of Communication Name Role Phone WILKINSBALJEET Unavailable PROBLEMS Type Condition ICD9-CM Code FMG02-NM Code Onset Dates Condition Status SNOMED Code Problem Migraine with aura and without status migrainosus, not intractable G43.109 Active 7300022 Problem PCOS (polycystic ovarian syndrome) E28.2 Active 47944560 Problem Uncomplicated severe persistent asthma J45.50 Active 399803144 Problem Severe persistent asthma with exacerbation J45.51 Active 508404590 Problem Other elevated white blood cell (WBC) count D72.828 Active 461590021 Problem Multiple food allergies Z91.018 Active 434421849 Problem Pure hypercholesterolemia E78.00 Active 554833919 Problem Current chronic use of inhaled steroid Z79.51 Active 316038522 Problem Asthma exacerbation J45.901 Active 415272025 Problem ADD (attention deficit disorder) F90.0 Active 496914630 Problem Allergic rhinitis due to pollen J30.1 Active 14735831 Problem Vitamin D deficiency E55.9 Active 96460950 Problem Major depressive disorder, recurrent episode, mild F33.0 Active 057987587 Problem Acquired hypothyroidism E03.9 Active 626518719 Problem Gastroesophageal reflux disease without esophagitis K21.9 Active 927390647 ALLERGIES No Information ENCOUNTERS Encounter Location Date Diagnosis [facility] [address], [place] [address] Jan, Allergic rhinitis due to pollen J30.1 [place] [address] [address] Jan, [place] [address], [place] [address] Jan, Allergic reaction, initial encounter T78.40XA [place] [address] [place] [id number] [place] [address] 62218- 7872 Dec, Allergic rhinitis due to pollen J30.1 [facility] [id number] [place] [address] 34045- 1775 Dec, [facility] [id number] [place] [address] 82290- 0237 Dec, Allergic rhinitis due to pollen J30.1 [facility] [id number] [place] [address] 81630- 5198 Dec, ADD (attention deficit disorder) F90.0 [facility] [address] 74204- 8651 Dec, ADD (attention deficit disorder) F90.0 and Uncomplicated severe persistent asthma J45.50 [facility] [id number] [place] [address] 18540- 6574 Dec, Allergic rhinitis due to pollen J30.1 [facility] [id number] [place] [address] 44505- 8878 Dec, [facility] [id number] [place] [address] 39461- 1342 October, Allergic rhinitis due to pollen J30.1 [facility] [id number] [place] [address] 85920- 2261 October, Allergic rhinitis due to pollen J30.1 [facility] [id number] [place] [address] 96457- 6056 Oct, [facility] [id number] [place] [address] 69771- 4554 Oct, Allergic rhinitis due to pollen J30.1 [facility] [id number] [place] [address] 96533- 2182 Oct, [facility] [id number] [place] [address] 65910- 9080 Oct, Allergic rhinitis due to pollen J30.1 [place] [id number] [place] [address] 71613- 7265 13 Oct, 2017 Severe persistent asthma with exacerbation J45.51 and Pneumonia due to Haemophilus influenzae, unspecified laterality, unspecified part of lung J14 [place] [address] [place] [id number] [place] [address] 17106- 1486 10 Oct, 2017 ADD (attention deficit disorder) F90.0 [place] [address] [place] [id number] [place] [address] 82809- 4108 12 Aug, 2017 Haemophilus influenzae infection A49.2 [place] [address] [place] [id number] [place] [address] 35785- 2845 09 Aug, 2017 Cough productive of purulent sputum R05 [place] [address] [place] [id number] [place] [address] 26237- 3600 08 Aug, 2017 [place] [address] 91151- 3484 08 Aug, 2017 Pulmonary congestion R09.89 [place] [address] [place] [id number] [place] [address] 04122- 3901 07 Aug, 2017 Severe persistent asthma with exacerbation J45.51 ; Hiatal hernia K44.9 and Gastroesophageal reflux disease without esophagitis K21.9 [place] [address] [place] [id number] [place] [address] 73107- 9422 Aug, Other elevated white blood cell (WBC) count D72.828 [place] [address] [place] [id number] [place] [address] 19937- 6001 Aug, Uncomplicated severe persistent asthma J45.50 [place] [address] [place] [id number] [place] [address] 11307- 9280 Aug, Pure hypercholesterolemia E78.00 ; Uncomplicated severe persistent asthma J45.50 and Acquired hypothyroidism E03.9 [place] [id number] [place] [address] 44579- 1562 Aug, Acquired hypothyroidism E03.9 ; Pure hypercholesterolemia E78.00 and Uncomplicated severe persistent asthma J45.50 [place] [address] [place] [id number] [place] [address] 64065- 6804 15 Aug, 2017 Allergic rhinitis due to pollen J30.1 [place] [address] 85790- 0201 08 Aug, 2017 Allergic rhinitis due to pollen J30.1 [place] [address] 38162- 0242 Aug, [facility] [address] [id number] Jul, Pharyngitis, unspecified etiology J02.9 and Lymphadenopathy R59.1 [place] [address] 11378- 8418 Jul, ADD (attention deficit disorder) F90.[address] 69736- 5647 Jul, Allergic rhinitis due to pollen J30.1 [place] [address] 35272- 1898 Jul, Dental examination Z01.20 [place] [address] 87709- 0229 Jun, Cough productive of purulent sputum R05 [place] [address] 54557- 9007 Jun, Allergic rhinitis due to pollen J30.1 [place] [address] [place] [id number] [place] [address] 55708- 9680 Jun, [place] [address] 36223- 8872 Jun, Allergic rhinitis due to pollen J30.1 [place] [address] 63756- 5151 Jun, Allergic rhinitis due to pollen J30.1 [place] [address] [place] [address]- 7508 May, Allergic rhinitis due to pollen J30.1 [place] [address] [place] [id number] [place] [address] 38011- 6794 May, Pneumonia due to Haemophilus influenzae, unspecified laterality, unspecified part of lung J14 [place] [address] [place] [id number] [place] [address] 95137- 9798 May, Allergic rhinitis due to pollen J30.1 [place] [address] [place] [id number] [place] [address] 49977- 3086 May, Other adverse food reactions, not elsewhere classified, initial encounter T78.1XXA and Pneumonia due to Haemophilus influenzae, unspecified laterality, unspecified part of lung J14 [place] [address] [place] [id number] [place] [address] 69798- 8234 May, Pneumonia due to Haemophilus influenzae, unspecified laterality, unspecified part of lung J14 [place] [address] [place] [id number] [place] [address] 24892- 9739 May, Multiple food allergies Z91.018 ; Uncomplicated severe persistent asthma J45.50 ; Cough productive of purulent sputum R05 and Uses central nervous system stimulants F15.90 [place] [address] [place] [id number] [place] [address] 10122- 9298 Apr, Allergic rhinitis due to pollen J30.1 [place] [address] [place] [id number] [place] [address] 76556- 3467 Apr, Allergic rhinitis due to pollen J30.1 [place] [address] [place] [id number] [place] [address] 84134- 5543 Apr, Allergic rhinitis due to pollen J30.1 [place] [address] [place] [id number] [place] [address] 63448- 4425 Apr, ADD (attention deficit disorder) F90.0 [place] [address] [place] [id number] [place] [address] 90639- 6064 Mar, Allergic rhinitis due to pollen J30.1 [place] [address] [place] [id number] [place] [address] 96916- 1512 Mar, Encounter for immunization Z23 [place] [address] [place] [id number] [place] [address] 78955- 5232 Mar, [place] [address] [place] [id number] [place] [address] 12442- 9684 14 Mar, 2017 Allergic rhinitis due to pollen J30.1 [place] [address] [place] [id number] [place] [address] 23884- 1678 Mar, Allergic rhinitis due to pollen J30.1 [place] [address] 25750- 6766 Jan, Allergic rhinitis due to pollen J30.1 [place] [address] [place] [id number] [place] [address] 08290- 3361 Jan, Allergic rhinitis due to pollen J30.1 [place] [address] [place] [id number] [place] [address] 15531- 1838 Dec, Uncomplicated severe persistent asthma J45.50 [place] [address] [place] [id number] [place] [address] 22493- 7877 Dec, Allergic rhinitis due to pollen J30.1 [place] [address] [place] [id number] [place] [address] 82021- 0980 Dec, Allergic rhinitis due to pollen J30.1 [place] [address] [place] [id number] [place] [address] 55656- 1036 Dec, Allergic rhinitis due to pollen J30.1 [place] [address] 05449- 7121 Dec, ADD (attention deficit disorder) F90.0 [place] [address] [place] [id number] [place] [address] 76672- 6361 Dec, Allergic rhinitis due to pollen J30.1 [place] [address] [place] [address] [place] [address]- 5610 Dec, Visit for TB skin test Z11.1 and Screening for tuberculosis Z11.1 [place] [address] [place] [id number] [place] [address] 95168- 0987 Dec, Uncomplicated severe persistent asthma J45.50 ; Palpitations R00.2 ; Pericardial effusion (noninflammatory) I31.3 and Chest discomfort R07.89 [place] [address] [place] [id number] [place] [address] 53008- 0465 Dec, Allergic rhinitis due to pollen J30.1 [place] [address] [place] [id number] [place] [address] 51229- 1234 Dec, Chronic cough R05 [place] [address] 76281- 9272 Dec, [place] [address] 52861- 2644 Dec, Allergic rhinitis due to pollen J30.1 [place] [address] [place] [id number] [place] [address] 95172- 7095 Dec, Allergic rhinitis due to pollen J30.1 [place] [address] [place] [id number] [place] [address] 94931- 2910 Dec, Chronic cough R05 [place] [address] [place] [id number] [place] [address] 55360- 1471 October, Allergic rhinitis due to pollen J30.1 [place] [address] [place] [id number] [place] [address] 45631- 1201 October, Allergic rhinitis due to pollen J30.1 [place] [address] 42001- 3464 October, [place] [address] [place] [id number] [place] [address] 10309- 5088 October, Asthma exacerbation J45.901 [place] [address] [place] [address]- 3570 October, Asthma exacerbation J45.901 and Current chronic use of inhaled steroid Z79.51 [place] [address] 40611- 4263 October, Uncomplicated severe persistent asthma J45.50 [place] [address] [place] [id number] [place] [address] 07587- 7606 October, Allergic rhinitis due to pollen J30.1 [place] [address] [place] [id number] [place] [address] 12962- 3045 Oct, [place] [address] 03131- 4736 Oct, Asthma exacerbation J45.901 and Sputum production R05 [place] [address] 94764- 2596 Oct, Asthma exacerbation J45.901 [place] [address] 11301- 2550 Oct, ADD (attention deficit disorder) F90.0 [place] [address] 36058- 7602 Oct, ADD (attention deficit disorder) F90.0 [place] [address] [place] [id number] [place] [address] 95537- 6036 Aug, Allergic rhinitis due to pollen J30.1 [place] [address] [place] [id number] [place] [address] 47200- 6951 Aug, Atypical pneumonia J18.9 [place] [address] [place] [id number] [place] [address] 96574- 9895 Aug, Allergic rhinitis due to pollen J30.1 [place] [address] [place] [id number] [place] [address] 72624- 9013 Aug, Acquired hypothyroidism E03.9 [place] [address] 28576- 8402 Aug, Multiple food allergies Z91.018 ; Elevated blood pressure reading R03.0 and Anaphylaxis, subsequent encounter T78.2XXD [facility] [address] [id number] Aug, [place] [address] 33306- 9767 Aug, Anaphylaxis, initial encounter T78.2XXA [place] [address] 21599- 5237 Aug, Allergic rhinitis due to pollen J30.1 [place] [address] 31973- 7369 Aug, Dental examination Z01.20 [place] [address] 85681- 1098 Aug, Allergic rhinitis due to pollen J30.1 [place] [address] 48161- 8801 Aug, Acquired hypothyroidism E03.9 and Pure hypercholesterolemia E78.00 [place] [address] 12952- 3163 Aug, ADD (attention deficit disorder) F90.0 ; Acquired hypothyroidism E03.9 and Pure hypercholesterolemia E78.00 [place] [address] 50233- 5006 Aug, Asthma exacerbation J45.901 [place] [address] 16043- 7818 Jul, Allergic rhinitis due to pollen J30.1 [place] [address] 70154- 8876 Jul, Allergic rhinitis due to pollen J30.1 [place] [address] 15974- 8766 Jul, [place] [address] [place] [address]- 0266 Jul, Allergic rhinitis due to pollen J30.1 [facility] [address] [place] [id number] [place] [address] 51819- 5764 Jul, Other retirement (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 and ADD ( attention deficit disorder) F90.0 [facility] [address] [place] [id number] [place] [address] 71660- 9682 Jul, 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 and ADD ( attention deficit disorder) F90.0 [facility] [address] [place] [place] [id number] [place] [address] 19242- 0172 Jul, [facility] [address] [place] [id number] [place] [address] 44727- 6409 Jun, Allergic rhinitis due to pollen J30.1 [facility] [address] [place] [id number] [place] [address] 09345- 4154 Jun, Allergic rhinitis due to pollen J30.1 [facility] [address] [place] [place] [id number] [place] [address] 17716- 1262 Jun, [facility] [address] [place] [id number] [place] [address] 96452- 2092 May, Allergic rhinitis due to pollen J30.1 [facility] [address] [id number] [place] [address] 27734- 6898 May, Allergic rhinitis due to pollen J30.1 [facility] [address] [place] [id number] [place] [address] 11038- 6278 Apr, Allergic rhinitis due to pollen J30.1 [facility] [address] [place] [id number] [place] [address] 18337- 3967 Apr, Allergic rhinitis due to pollen J30.1 [facility] [address] [place] [id number] [place] [address] 92360- 3726 Apr, Encounter for immunization Z23 [facility] [address] [place] [address]- 0356 Apr, [facility] [id number] [place] [address] 63684- 1472 Mar, Allergic rhinitis due to pollen J30.1 [facility] [address] [place] [id number] [place] [address] 22445- 9833 Mar, Multiple allergies Z88.9 [facility] [address] [place] [id number] [place] [address] 04595- 8706 Mar, Candidal vaginitis B37.3 [facility] [address] [place] [id number] [place] [address] 35617- 7545 08 Mar, 2016 Allergic rhinitis due to pollen J30.1 [facility] [address] [place] [id number] [place] [address] 35814- 2628 Jan, Asthma exacerbation J45.901 ; Fatigue, unspecified type R53.83 and Community acquired pneumonia J18.9 [facility] [address] [place] [id number] [place] [address] [id number] Jan, Encounter for dental examination Z01.20 [facility] [address] [place] [id number] [place] [address] 77947- 3573 Jan, Allergic rhinitis due to pollen J30.1 [facility] [id number] [place] [address] 48593- 4474 Dec, Allergic rhinitis due to pollen J30.1 [facility] [id number] [place] [address] 89852- 7660 Dec, [facility] [id number] [place] [address] 74408- 6092 Dec, Allergic rhinitis due to pollen J30.1 [facility] [id number] [place] [address] 61619- 1521 Dec, [facility] [id number] [place] [address] 04258- 4907 Dec, [facility] [address], [place] [address]- 2478 Dec, [facility] [id number] [place] [address] 82848- 9153 Dec, Allergic rhinitis due to pollen J30.1 [facility] [address], [place] [address]- 9724 Dec, [facility] [address] [id number] [place] [address] 67077- 6402 Dec, [facility] [address] [place] [address] [id number] [place] [address] 34234- 7419 Dec, Allergic rhinitis due to pollen J30.1 [facility] [address] [place] [id number] [place] [address] 11833- 1546 October, Allergic rhinitis due to pollen J30.1 [facility] [address] [place] [id number] [place] [address] 29185- 5994 October, Allergic rhinitis due to pollen J30.1 [facility] [id number] [place] [address] 61975- 6420 October, [facility] [address] [id number] [place] [address] 87937- 7896 October, [facility] [address] [address]- 3254 October, ADD (attention deficit disorder) F90.0 ; Major depressive disorder, recurrent episode, mild F33.0 and Uncomplicated severe persistent asthma J45.50 [facility] [address] [address]- 0103 Oct, Allergic rhinitis due to pollen J30.1 [facility] [id number] [place] [address] 85385- 4963 Oct, ADD (attention deficit disorder) F90.0 [facility] [address] [address]- 0302 Oct, Allergic rhinitis due to pollen 477.0 [facility] [id number] [place] [address] 26842- 5070 Aug, Allergic rhinitis due to pollen 477.0 [facility] [id number] [place] [address] 28989- 9385 Aug, 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 [facility] [id number] [place] [address] 45076- 3682 Aug, [facility] [address] [id number] [place] [address] 58578- 5760 Aug, Allergic rhinitis due to pollen 477.0 [facility] [address] [id number] [place] [address] 70645- 4331 Aug, Allergic rhinitis due to pollen 477.0 [facility] [id number] [place] [address] 53527- 3406 Aug, Allergic rhinitis due to pollen 477.0 [facility] [id number] [place] [address] 67462- 3264 Aug, Exposure to influenza Z20.828 [facility] [id number] [place] [address] [id number] Aug, Encounter for dental examination and cleaning without abnormal findings Z01.20 [facility] [id number] [place] [address] 21651- 2026 Aug, Allergic rhinitis due to pollen J30.1 [facility] [id number] [place] [address] 49471- 1126 Aug, [facility] [id number] [place] [address] 67367- 7852 Aug, 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 [facility] [id number] [place] [address] 95665- 4590 Jul, [facility] [id number] [place] [address] 78356- 3453 Jul, Allergic rhinitis due to pollen 477.0 [facility] [address] 71385- 8182 Jul, [place] [address] 62289- 4763 Jul, Allergic rhinitis due to pollen 477.0 [place] [address] 46643- 9466 Jun, ADD (attention deficit disorder) F90.0 ; Acquired hypothyroidism E03.9 ; PCOS (polycystic ovarian syndrome) E28.2 ; Polyarthralgia M25.50 and On stimulant medication Z79.899 [place] [address] 33702- 1139 16 Apr, 2015 Encounter for immunization Z23 [place] [address] 59403- 7684 16 Mar, 2015 Allergic rhinitis due to pollen 477.0 [place] [address] 97562- 1358 Mar, Influenza vaccine administered V04.81 [place] [address] 51329- 5907 Mar, [place] [address] 32224- 6576 Jan, Allergic rhinitis due to pollen 477.0 [place] [address] 44053- 3352 Jan, Allergic rhinitis due to pollen 477.0 [facility] [address] 09310- 1712 Jan, Allergic rhinitis due to pollen 477.0 [facility] [address] [id number] Jan, Dental examination V72.2 [place] [address] 69578- 2229 Dec, Allergic rhinitis due to pollen 477.0 [facility] [address] [facility] [id number] [place] [address]- 7607 October, [facility] [address] [facility] [id number] [place] [address] Oct, [facility] [id number] [place] [address] Oct, [facility] [address] [facility] [id number] [place] [address] Aug, [facility] [id number] [place] [address] Aug, [facility] [address] [place] [id number] [place] [address] Aug, [facility] [id number] [address] Aug, [facility] [id number] [address] Aug, [facility] [id number] [place] [address] Aug, [facility] [id number] [address] Aug, [facility] [id number] [place] [address] Aug, [facility] [id number] [address] Jul, [facility] [address] [place] [address] [id number] [address] Jul, [facility] [id number], [place] [address] Jul, [facility] [id number] [address] [address] Jul, [facility] [address] [id number] [place] [address] Jul, [facility] [place] [facility] [address] [id number] [place] [address] Jul, [facility] [place] [facility] [address] [id number] [place] [address] Jul, [facility] [place] [facility] [address] [id number] [place] [address] Jul, [facility] [place] [facility] [address] [id number] [place] [address] Jul, [facility] [place] [facility] [address] [id number] [place] [address] Jul, [facility] [place] [facility] [address] [id number] [place] [address] Jul, [facility] [place] [facility] [address] [id number] [place] [address] Jun, [facility] [place] [facility] [address] [id number] [place] [address] 1796 Jun, [facility] [place] [facility] [address] [id number] [place] [address] Jun, [facility] [place] [facility] [address] [id number] [place] [address] 39[address] Jun, [facility] [place] [facility] [address] [id number] [place] [address] 6699 Jun, [facility] [place] [facility] [address] [id number] [place] [address] 67[address] Jun, [facility] [place] [facility] [address] [id number] [place] [address] 5609 May, [facility] [place] [facility] [address] [id number] [place] [address]- 7380 May, [facility] [place] [facility] [address] [id number] [place] [address]- 8322 May, [facility] [place] [facility] [address] [id number] [place] [address]- 3507 May, [facility] [place] [facility] [address] [id number] [place] [address]- 3868 May, [facility] [place] [facility] [address] [id number] [place] [address]- 5565 May, [facility] [place] [facility] [address] [id number] [place] [address]- 96[address] Apr, [facility] [place] [facility] [address] [id number] [place] [address] 3241 Apr, [facility] [place] [facility] [address] [id number] [place] [address] 6062 Mar, [facility] [place] [facility] [address] [id number] [place] [address]- 6320 Mar, [facility] [place] [facility] [address] [id number] [place] [address]- 7487 30 Mar, 2014 [facility] [place] [facility] [address] [id number] [place] [address]- 4955 Mar, [facility] [place] [facility] [address] [id number] [place] [address]- 0310 Mar, [facility] [place] [facility] [address] [id number] [place] [address]- 9696 Mar, [facility] [place] [facility] [address] [id number] [place] [address]- 1219 Jan, [facility] [place] [facility] [address] [id number] [place] [address]- 6071 Jan, [facility] [place] [facility] [address] [id number] [place] [address]- 8993 Jan, [facility] [place] [facility] [address] [id number] [place] [address]- 2106 Jan, [facility] [place] [facility] [address] [id number] [place] [address]- 0990 Jan, [facility] [place] [facility] [address] [id number] [place] [address]- 0271 Jan, [facility] [place] [facility] [address] [id number] [place] [address] 1656 Dec, [facility] [place] [facility] [address] [id number] [place] [address]- 5495 Dec, [facility] [place] [facility] [address] [id number] [place] [address]- 8086 Dec, [facility] [place] [facility] [address] [id number] [place] [address]- 0089 Dec, [facility] [place] [facility] [address] [id number] [place] [address]- 2014 Dec, [facility] [place] [facility] [address] [id number] [place] [address]- 9164 Dec, [facility] [place] [facility] [address] [id number] [place] [address]- 1700 Dec, [facility] [place] [facility] [address] [id number] [place] [address]- 1173 Dec, [facility] [place] [facility] [address] [id number] [place] [address]- 2081 Dec, [facility] [place] [facility] [address] [id number] [place] [address]- 5299 Dec, [facility] [place] [facility] [address] [id number] [place] [address]- 4714 Dec, [facility] [place] [facility] [address] [id number] [place] [address]- 5595 Dec, [facility] [place] [facility] [address] [id number] [place] [address]- 3328 Dec, [facility] [place] [facility] [address] [id number] [place] [address]- 9801 Dec, [facility] [place] [facility] [address] [id number] [place] [address]- 8154 Dec, [facility] [place] [facility] [address] [id number] [place] [address]- 0379 Dec, [facility] [place] [facility] [address] [id number] [place] [address]- 1030 October, [facility] [place] [facility] [address] [id number] [place] [address]- 5631 October, [facility] [place] [facility] [address] [id number] [place] [address]- 3150 October, [facility] [place] [facility] [address] [id number] [place] [address]- 6998 October, [facility] [place] [facility] [address] [id number] [place] [address]- 4093 October, [facility] [place] [facility] [address] [id number] [place] [address]- 8740 October, [facility] [place] [facility] [address] [id number] [place] [address]- 6028 Oct, [facility] [place] [facility] [address] [id number] [place] [address]- 1151 Oct, [facility] [place] [facility] [address] [id number] [place] [address]- 2936 Oct, [facility] [place] [facility] [address] [id number] [place] [address]- 4109 Oct, [facility] [place] [facility] [address] [id number] [place] [address]- 5524 Oct, [facility] [place] [facility] [address] [id number] [place] [address]- 0642 Oct, [facility] [place] [facility] [address] [id number] [place] [address]- 9569 Aug, [facility] [place] [facility] [address] [id number], [place] [address] Aug, [facility] [address] [id number] [place] [address]- 2162 Aug, [facility] [place] [facility] [address] [id number] [place] [address] Aug, [facility] [address] [id number] [place] [address] 1948 Jul, [facility] [place] [facility] [address] [id number] [place] [address]- 2434 Jul, [facility] [address] [id number] [place] [address]- 3914 Jul, [facility] [address] [id number] [place] [address]- 3644 Jul, [facility] [address] [id number] [place] [address]- 7407 Jun, [facility] [address] [id number] [place] [address]- 3309 Jun, [facility] [address] [id number] [place] [address]- 7312 Jun, [facility] [address] [facility] [id number] [place] [address]- 2937 Jun, [facility] [address] [id number] [place] [address]- 2328 Jun, [facility] [place] [facility] [address] [id number] [place] [address]- 0210 Jun, [facility] [place] [facility] [address] [id number] [place] [address]- 5931 Jun, [facility] [place] [facility] [address] [facility] [id number] [place] [address] Jun, [facility] [place] [facility] [address] [facility] [id number] [place] [address] Jun, [facility] [place] [facility] [address] [id number] [place] [address]- 8508 Jun, [facility] [place] [facility] [address] [id number] [place] [address]- 0728 Jun, [facility] [place] [facility] [address] [id number] [place] [address]- 1292 May, [facility] [place] [facility] [address] [id number] [place] [address]- 3991 May, [facility] [place] [facility] [address] [id number] [place] [address]- 8075 May, [facility] [place] [facility] [address] [id number] [place] [address]- 1930 May, [facility] [place] [facility] [address] [id number] [place] [address]- 8803 May, [facility] [place] [facility] [address] [id number] [place] [address]- 2249 May, [facility] [place] [facility] [address] [id number] [place] [address]- 0046 May, [facility] [place] [facility] [address] [id number] [place] [address]- 3862 Apr, [facility] [place] [facility] [address] [id number] [place] [address]- 1032 Apr, [facility] [place] [facility] [address] [id number] [place] [address]- 0057 Apr, [facility] [place] [facility] [address] [id number] [place] [address]- 8342 Apr, [facility] [place] [facility] [address] [id number] [place] [address]- 8924 27 Mar, 2013 [facility] [place] [facility] [address] [id number] [place] [address]- 9617 26 Mar, 2013 [facility] [place] [facility] [address] [id number] [place] [address]- 2963 Mar, [facility] [place] [facility] [address] [id number] [place] [address]- 6702 Mar, [facility] [place] [facility] [address] [id number] [place] [address]- 0884 Mar, [facility] [place] [facility] [address] [id number] [place] [address]- 8055 Mar, [facility] [place] [facility] [address] [id number] [place] [address]- 0475 Jan, [facility] [place] [facility] [address] [id number] [place] [address]- 1601 Jan, [facility] [place] [facility] [address] [id number] [place] [address]- 2188 Jan, [facility] [place] [facility] [address] [id number] [place] [address]- 4257 Jan, [facility] [place] [facility] [address] [id number] [place] [address]- 5626 Jan, [facility] [place] [facility] [address] [id number] [place] [address]- 0453 Dec, [facility] [place] [facility] [address] [id number] [place] [address]- 1316 Dec, [facility] [place] [facility] [address] [id number] [place] [address]- 7361 Dec, [facility] [place] [facility] [address] [id number] [place] [address]- 6580 Dec, [facility] [place] [facility] [address] [id number] [place] [address]- 4360 Dec, [facility] [place] [facility] [address] [id number] [place] [address]- 4384 Dec, [facility] [place] [facility] [address] [id number] [place] [address]- 9223 Dec, [facility] [place] [facility] [address] [id number] [place] [address]- 8590 Dec, [facility] [address] [id number] [place] [address]- 6209 October, [facility] [address] [id number] [place] [address]- 7438 October, [facility] [address] [id number] [place] [address]- 5871 October, [facility] [address] [id number] [place] [address]- 0948 Oct, [facility] [address] [id number] [place] [address]- 4852 Oct, [facility] [address] [id number] [place] [address]- 5021 Oct, [facility] [address] [id number] [place] [address]- 4239 Oct, [facility] [address] [id number] [place] [address]- 0822 Aug, [facility] [address] [id number] [place] [address]- 8200 Aug, [facility] [address] [id number] [place] [address]- 5963 Aug, [facility] [address] [id number] [place] [address]- 5962 Jul, [facility] [address] [id number] [place] [address]- 7434 May, [facility] [address] [id number] [place] [address]- 3730 May, [facility] [address] [id number] [place] [address]- 8128 Apr, [facility] [address] [id number] [place] [address]- 4561 Apr, [facility] [place] [facility] [address] [id number] [place] [address]- 6698 Apr, [facility] [place] [facility] [address] [id number] [place] [address]- 2693 Apr, [facility] [place] [facility] [address] [id number] [place] [address]- 6077 Apr, [facility] [place] [facility] [address] [id number] [place] [address]- 3706 Apr, [facility] [place] [facility] [address] [id number] [place] [address]- 7246 Apr, [facility] [place] [facility] [address] [id number] [place] [address]- 6221 Apr, [facility] [place] [facility] [address] [id number] [place] [address]- 4584 Apr, [facility] [place] [facility] [address] [id number] [place] [address]- 6752 Apr, [facility] [place] [facility] [address] [id number] [place] [address]- 2015 Apr, [facility] [place] [facility] [address] [id number], [place] [address]- 1867 Apr, [facility] [place] [facility] [address] [id number], [place] [address]- 2670 Mar, [facility] [place] [facility] [address] [id number], [place] [address]- 6728 Jan, [facility] [place] [facility] [address] [id number] [place] [address]- 9688 Dec, [facility] [place] [facility] [address] [id number], [place] [address]- 1371 October, [facility] [place] [facility] [address] [id number], [place] [address]- 1041 Oct, [facility] [place] [facility] [address] [id number], [place] [address] 2546 Oct, [facility] [address] [facility] [id number] [place] [address] 2546 Oct, [facility] [address] [facility] [id number], [place] [address]- 2546 Aug, [facility] [address] [facility] [id number] [place] [address]- 2546 Aug, [facility] [address] [facility] [id number] [place] [address] 2546 29 Aug, 2011 [facility] [address] [facility] [id number] [place] [address] 2546 Aug, [facility] [address] [id number] [place] [address] 2546 Aug, [facility] [id number], [place] [address] 2546 Aug, [facility] [address] [id number], [place] [address]- 0676 Jun, [facility] [id number], [place] [address]- 1576 Apr, [facility] [id number], [place] [address] 2546 Jun, [facility] [id number], [place] [address] 2546 Jun, [facility] [address], [place] [address]- 2546 May, [facility] [address], [place] [address]- 2206 May, [facility] [address], [place] [address] 2546 15 Apr, 2009 [facility] [id number], [place] [address]- 5936 13 Apr, 2009 IMMUNIZATIONS No Known Immunizations SOCIAL HISTORY Never Assessed REASON FOR VISIT RX-Bactrim PLAN OF CARE VITAL SIGNS MEDICATIONS Medication Instructions Dosage Frequency Start Date End Date Duration Status Bactrim DS 800-160 MG Orally Twice a day 1 tablet 12h 25 Dec, 2017 Dec, 14 days Active RESULTS No Results PROCEDURES No [...] History see above surgeries Hospitalization History Anaphylactic shock-[facility] 08/23/16
--- OUTSIDE RECORDS SUMMARY | 2018-07-18 07:22 | XMS REPORT ---
Author Author BRANDY [facility] Address [address] [place] [address] Care Team Providers Care Order Make Up Clerk Name Role Phone BRANDYTEZ HOYTHANY Unavailable PROBLEMS Type Condition ICD9-CM Code DRH60-HP Code Onset Dates Condition Status SNOMED Code Problem Migraine with aura and without status migrainosus, not intractable G43.109 Active 3888048 Problem PCOS (polycystic ovarian syndrome) E28.2 Active 67990826 Problem Uncomplicated severe persistent asthma J45.50 Active 968736515 Problem Severe persistent asthma with exacerbation J45.51 Active 584397712 Problem Other elevated white blood cell (WBC) count D72.828 Active 296572875 Problem Multiple food allergies Z91.018 Active 927315899 Problem Pure hypercholesterolemia E78.00 Active 680814509 Problem Current chronic use of inhaled steroid Z79.51 Active 376259304 Problem Asthma exacerbation J45.901 Active 442369718 Problem ADD (attention deficit disorder) F90.0 Active 504023525 Problem Allergic rhinitis due to pollen J30.1 Active 14754541 Problem Vitamin D deficiency E55.9 Active 58443358 Problem Major depressive disorder, recurrent episode, mild F33.0 Active 495925423 Problem Acquired hypothyroidism E03.9 Active 122802385 Problem Gastroesophageal reflux disease without esophagitis K21.9 Active 331030111 ALLERGIES No Information ENCOUNTERS Encounter Location Date Diagnosis [place] [id number], [place] [address] Jan, [place] [address] [address] [id number] [place] [address] 71634- 7278 Jan, Allergic reaction, initial encounter T78.40XA [place] [address], [place] [address] 8[address] Dec, Allergic rhinitis due to pollen J30.1 [place] [address] [address] [id number] [place] [address] 53316- 2531 Dec, [facility] [address] [id number] [place] [address] 97122- 6509 Dec, Allergic rhinitis due to pollen J30.1 [facility] [address] [id number] [place] [address] 03523- 6317 Dec, ADD (attention deficit disorder) F90.0 [place] [address] [id number] [place] [address] 40754- 0269 Dec, ADD (attention deficit disorder) F90.0 and Uncomplicated severe persistent asthma J45.50 [place] [address] 65707- 2100 Dec, Allergic rhinitis due to pollen J30.1 [place] [address] [place] [id number] [place] [address] 18586- 2004 Dec, [facility] [address] [id number] [place] [address] 62367- 5608 October, Allergic rhinitis due to pollen J30.1 [facility] [address] [id number] [place] [address] 45835- 0650 October, Allergic rhinitis due to pollen J30.1 [place] [address] [place] [id number] [place] [address] 23292- 7101 Oct, [facility] [address] [address] [id number] [place] [address] 06362- 0047 Oct, Allergic rhinitis due to pollen J30.1 [facility] [address] [address] [id number] [place] [address] 93771- 8437 Oct, [facility] [address] [id number] [place] [address] 73471- 4268 Oct, Allergic rhinitis due to pollen J30.1 [facility] [address] [place] [address] 10703- 8650 Oct, Severe persistent asthma with exacerbation J45.51 and Pneumonia due to Haemophilus influenzae, unspecified laterality, unspecified part of lung J14 [place] [address] [place] [id number] [place] [address] 93141- 6321 Oct, ADD (attention deficit disorder) F90.0 [place] [address] 99554- 8789 12 Aug, 2017 Haemophilus influenzae infection A49.2 [place] [address] 17154- 3125 Aug, Cough productive of purulent sputum R05 [place] [address] 388286- 6386 Aug, [place] [address] 27953 0155 Aug, Pulmonary congestion R09.89 [place] [address] 71738- 5460 Aug, Severe persistent asthma with exacerbation J45.51 ; Hiatal hernia K44.9 and Gastroesophageal reflux disease without esophagitis K21.9 [place] [address] 48460- 7923 Aug, Other elevated white blood cell (WBC) count D72.828 [place] [address] 29171- 6863 Aug, Uncomplicated severe persistent asthma J45.50 [place] [address] 92800- 2324 Aug, Pure hypercholesterolemia E78.00 ; Uncomplicated severe persistent asthma J45.50 and Acquired hypothyroidism E03.9 [place] [address] [place] [id number]- 5066 20 Aug, 2017 Acquired hypothyroidism E03.9 ; Pure hypercholesterolemia E78.00 and Uncomplicated severe persistent asthma J45.50 [place] [address] [place] [address]13[address]- 2280 15 Aug, 2017 Allergic rhinitis due to pollen J30.1 [place] [address] [place] [id number] [place] [address] 13879- 5701 Aug, Allergic rhinitis due to pollen J30.1 [place] [address] [place] [id number] [place] [address] 64298- 8135 Aug, [facility] [place] [address] [id number] Jul, Pharyngitis, unspecified etiology J02.9 and Lymphadenopathy R59.1 [place] [address] 32730- 2700 Jul, ADD (attention deficit disorder) F90.0 [place] [address] 55307- 4850 Jul, Allergic rhinitis due to pollen J30.1 [place] [address] 37811- 0918 Jul, Dental examination Z01.20 [place] [address] [place] [id number] [place] [address] 61537- 8187 Jun, Cough productive of purulent sputum R05 [place] [address] [place] [id number] [place] [address] 84024- 4600 Jun, Allergic rhinitis due to pollen J30.1 [place] [address] [place] [id number] [place] [address] 46145- 1508 Jun, [place] [address] [place] [id number] [place] [address] 31856- 8594 Jun, Allergic rhinitis due to pollen J30.1 [place] [address] [place] [id number] [place] [address] 28193- 0576 Jun, Allergic rhinitis due to pollen J30.1 [place] [address] [place] [id number] [place] [address] 81746- 3585 May, Allergic rhinitis due to pollen J30.1 [place] [address] [place] [id number] [place] [address] 70569- 3084 May, Pneumonia due to Haemophilus influenzae, unspecified laterality, unspecified part of lung J14 [place] [address] [place] [id number] [place] [address] 97597- 5115 May, Allergic rhinitis due to pollen J30.1 [place] [address] [place] [id number] [place] [address] 70130- 2996 May, Other adverse food reactions, not elsewhere classified, initial encounter T78.1XXA and Pneumonia due to Haemophilus influenzae, unspecified laterality, unspecified part of lung J14 [place] [address] 54586- 2114 May, Pneumonia due to Haemophilus influenzae, unspecified laterality, unspecified part of lung J14 [place] [address] [place] [id number] [place] [address] 26328- 6651 May, Multiple food allergies Z91.018 ; Uncomplicated severe persistent asthma J45.50 ; Cough productive of purulent sputum R05 and Uses central nervous system stimulants F15.90 [place] [address] [place] [id number] [place] [address] 31045- 6615 Apr, Allergic rhinitis due to pollen J30.1 [place] [address] [place] [id number] [place] [address] 65319- 5751 Apr, Allergic rhinitis due to pollen J30.1 [place] [address] [place] [id number] [place] [address] 42136- 5849 Apr, Allergic rhinitis due to pollen J30.1 [place] [address] [place] [id number] [place] [address] 04334- 0075 Apr, ADD (attention deficit disorder) F90.0 [place] [address] [place] [id number] [place] [address] 11206- 8940 Mar, Allergic rhinitis due to pollen J30.1 [place] [address] [place] [id number] [place] [address] 85842- 7681 Mar, Encounter for immunization Z23 [facility] [address] [place] [id number] [place] [address] 80834- 0816 Mar, [facility] [address] [place] [id number] [place] [address] 01832- 1988 14 Mar, 2017 Allergic rhinitis due to pollen J30.1 [facility] [address] [place] [id number] [place] [address] 39770- 6235 Mar, Allergic rhinitis due to pollen J30.1 [place] [address] [place] [id number] [place] [address] 28450- 1145 Jan, Allergic rhinitis due to pollen J30.1 [place] [address] [place] [id number] [place] [address] 97240- 4116 Jan, Allergic rhinitis due to pollen J30.1 [place] [address] [place] [id number] [place] [address] 50568- 3531 Dec, Uncomplicated severe persistent asthma J45.50 [place] [address] [place] [id number] [place] [address] 08726- 6311 Dec, Allergic rhinitis due to pollen J30.1 [place] [address] [place] [id number] [place] [address] 85978- 0279 Dec, Allergic rhinitis due to pollen J30.1 [place] [address] [place] [id number] [place] [address] 29853- 7545 Dec, Allergic rhinitis due to pollen J30.1 [place] [address] [place] [id number] [place] [address] 45414- 6385 Dec, ADD (attention deficit disorder) F90.0 [place] [address] 19564- 1182 Dec, Allergic rhinitis due to pollen J30.1 [place] [address] [place] [id number] [place] [address] 26041- 9002 Dec, Visit for TB skin test Z11.1 and Screening for tuberculosis Z11.1 [place] [address] [place] [address] 47357- 0212 Dec, Uncomplicated severe persistent asthma J45.50 ; Palpitations R00.2 ; Pericardial effusion (noninflammatory) I31.3 and Chest discomfort R07.89 [place] [address] [place] [id number] [place] [address] 21548- 5204 Dec, Allergic rhinitis due to pollen J30.1 [place] [address] [place] [id number] [place] [address] 78792- 3758 Dec, Chronic cough R05 [place] [address] 69800- 2481 Dec, [place] [address] [place] [id number] [place] [address] 66943- 7815 Dec, Allergic rhinitis due to pollen J30.1 [place] [address] 66143- 3212 Dec, Allergic rhinitis due to pollen J30.1 [place] [address] [place] [id number] [place] [address] 23356- 9075 Dec, Chronic cough R05 [place] [address] [place] [id number] [place] [address] 72834- 5064 October, Allergic rhinitis due to pollen J30.1 [place] [address] [place] [id number] [place] [address] 66389- 5389 October, Allergic rhinitis due to pollen J30.1 [place] [address] [place] [id number] [place] [address] 92473- 4018 October, [place] [address] 17583- 3833 October, Asthma exacerbation J45.901 [place] [address] [place] [id number] [place] [address] 25668- 3664 October, Asthma exacerbation J45.901 and Current chronic use of inhaled steroid Z79.51 [place] [address] [place] [id number] [place] [address] 75651- 7505 October, Uncomplicated severe persistent asthma J45.50 [place] [address] 73097- 5642 October, Allergic rhinitis due to pollen J30.1 [place] [address] 01739- 0603 Oct, [place] [address] 83429- 9678 Oct, Asthma exacerbation J45.901 and Sputum production R05 [address] 80811- 7454 Oct, Asthma exacerbation J45.[address] 53549- 5953 Oct, ADD (attention deficit disorder) F90.[address] 04958- 8655 Oct, ADD (attention deficit disorder) F90.[address] 06935- 9784 Aug, Allergic rhinitis due to pollen J30.[address] 23657- 2787 Aug, Atypical pneumonia J18.[address] 67036- 4343 Aug, Allergic rhinitis due to pollen J30.[address] 56189- 8491 Aug, Acquired hypothyroidism E03.[address] 89813- 3158 Aug, Multiple food allergies Z91.018 ; Elevated blood pressure reading R03.0 and Anaphylaxis, subsequent encounter T78.2XXD [place] [address] [place] [id number] [place] [address] [id number] Aug, [place] [address] 46420- 7596 Aug, Anaphylaxis, initial encounter T78.2XXA [place] [address] 99518- 9723 Aug, Allergic rhinitis due to pollen J30.1 [place] [address] 36608- 9765 Aug, Dental examination Z01.20 [place] [address] 88490- 7858 Aug, Allergic rhinitis due to pollen J30.1 [place] [address] 00672- 3294 Aug, Acquired hypothyroidism E03.9 and Pure hypercholesterolemia E78.00 [place] [address] 98267- 8600 Aug, ADD (attention deficit disorder) F90.0 ; Acquired hypothyroidism E03.9 and Pure hypercholesterolemia E78.00 [place] [address] [place] [id number] [place] [address] 85796- 2268 Aug, Asthma exacerbation J45.901 [place] [address] [place] [id number] [place] [address] 48706- 0740 Jul, Allergic rhinitis due to pollen J30.1 [place] [address] [place] [id number] [place] [address] 75461- 5495 Jul, Allergic rhinitis due to pollen J30.1 [place] [address] [place] [id number] [place] [address] 16986- 1981 Jul, [place] [address] [place] [id number] [place] [address] 69546- 8471 Jul, Allergic rhinitis due to pollen J30.1 [place] [address] [place] [address] [place] [address]- 0203 Jul, Other retirement (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 and ADD ( attention deficit disorder) F90.0 [facility] [address] [place] [id number] [place] [address] 59727- 0661 Jul, Other retirement (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 and ADD ( attention deficit disorder) F90.0 [facility] [address] [place] [id number] [place] [address] 41913- 6645 Jul, [facility] [address] [place] [id number] [place] [address] 70932- 9908 Jun, Allergic rhinitis due to pollen J30.1 [place] [address] [place] [id number] [place] [address] 06645- 0606 Jun, Allergic rhinitis due to pollen J30.1 [place] [address] [place] [id number] [place] [address] 53982- 8445 Jun, [place] [address] [place] [id number] [place] [address] 07667- 2035 May, Allergic rhinitis due to pollen J30.1 [place] [address] [place] [id number] [place] [address] 06345- 5397 May, Allergic rhinitis due to pollen J30.1 [place] [address] [place] [id number] [place] [address] 91859- 7423 Apr, Allergic rhinitis due to pollen J30.1 [facility] [address] [place] [id number] [place] [address] 12387- 6497 Apr, Allergic rhinitis due to pollen J30.1 [place] [address] [place] [id number] [place] [address] 03075- 1157 Apr, Encounter for immunization Z23 [facility] [address] [place] [id number] [place] [address] 21907- 2149 Apr, [facility] [address] [place] [id number] [place] [address] 40376- 3734 Mar, Allergic rhinitis due to pollen J30.1 [facility] [address] [place] [address] 35227- 4684 Mar, Multiple allergies Z88.9 [facility] [address] [place] [id number] [place] [address] 74998- 6464 Mar, Candidal vaginitis B37.3 [facility] [address] [place] [id number] [place] [address] 86323- 7082 Mar, Allergic rhinitis due to pollen J30.1 [facility] [address] [place] [id number] [place] [address] 73731- 8385 Jan, Asthma exacerbation J45.901 ; Fatigue, unspecified type R53.83 and Community acquired pneumonia J18.9 [facility] [id number] [place] [address] [id number] Jan, Encounter for dental examination Z01.20 [facility] [address] [place] [id number] [place] [address] 01761- 0701 Jan, Allergic rhinitis due to pollen J30.1 [facility] [address] [place] [id number] [place] [address] 95896- 6771 Dec, Allergic rhinitis due to pollen J30.1 [facility] [address] [place] [address] 93405- 5000 Dec, [facility] [address] [place] [id number] [place] [address] 71289- 9189 Dec, Allergic rhinitis due to pollen J30.1 [facility] [address] [place] [id number] [place] [address] 45506- 0011 Dec, [facility] [address] [place] [id number] [place] [address] 39025- 7679 Dec, [facility] [address] [place] [id number] [place] [address] 74608- 9821 Dec, [facility] [address] [place] [id number] [address]- 1394 Dec, Allergic rhinitis due to pollen J30.1 [facility] [id number], [place] [address]- 6532 Dec, [facility] [id number], [place] [address]- 8771 Dec, [facility] [id number] [place] [address] 80984- 6256 Dec, Allergic rhinitis due to pollen J30.1 [facility] [id number], [place] [address]- 7618 October, Allergic rhinitis due to pollen J30.1 [facility] [address] [place] [address] 99483- 6472 October, Allergic rhinitis due to pollen J30.1 [facility] [address] [id number] [address]- 2741 October, [facility] [address] [place] [id number] [place] [address] 06009- 8871 October, [facility] [address] [id number] [place] [address] 91066- 5547 October, ADD (attention deficit disorder) F90.0 ; Major depressive disorder, recurrent episode, mild F33.0 and Uncomplicated severe persistent asthma J45.50 [facility] [address], [place] [address]- 7762 Oct, Allergic rhinitis due to pollen J30.1 [facility] [id number] [address]- 9695 Oct, ADD (attention deficit disorder) F90.0 [facility] [id number], [place] [address]- 0833 Oct, Allergic rhinitis due to pollen 477.0 [facility] [id number], [place] [address]- 2001 Aug, Allergic rhinitis due to pollen 477.0 [facility] [address] [place] [address] 32218- 5069 Aug, 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 [facility] [id number] [place] [address] 64030- 2616 Aug, [facility] [id number] [place] [address] 83775- 1771 Aug, Allergic rhinitis due to pollen 477.0 [facility] [id number] [place] [address] 97604- 9652 Aug, Allergic rhinitis due to pollen 477.0 [facility] [id number] [place] [address] 26635- 7389 Aug, Allergic rhinitis due to pollen 477.0 [place] [address] [id number] [place] [address] 07087- 4478 Aug, Exposure to influenza Z20.828 [facility] [id number] [place] [address] [id number] Aug, Encounter for dental examination and cleaning without abnormal findings Z01.20 [place] [address] [id number] [place] [address] 62382- 6676 Aug, Allergic rhinitis due to pollen J30.1 [place] [address] [id number] [place] [address] 30152- 4011 Aug, [facility] [id number] [place] [address] 99555- 0849 Aug, 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 [facility] [id number] [place] [address] 02858- 2620 Jul, [place] [address] [id number] [place] [address] 45459- 5158 Jul, Allergic rhinitis due to pollen 477.0 [facility] [id number] [place] [address] 62587- 1319 Jul, [facility] [id number] [place] [address] 83180- 4912 Jul, Allergic rhinitis due to pollen 477.0 [facility] [id number] [place] [address] 64401- 9425 Jun, ADD (attention deficit disorder) F90.0 ; Acquired hypothyroidism E03.9 ; PCOS (polycystic ovarian syndrome) E28.2 ; Polyarthralgia M25.50 and On stimulant medication Z79.899 [place] [address] [address] 16 Apr, 2015 Encounter for immunization Z23 [place] [address] [address] 16 Mar, 2015 Allergic rhinitis due to pollen 477.0 [place] [address] [address]- [address] Mar, Influenza vaccine administered V04.81 [place] [address] [address]- [address] Mar, [place] [address] [address] Jan, Allergic rhinitis due to pollen 477.0 [place] [address] [address]- [address] Jan, Allergic rhinitis due to pollen 477.0 [place] [address] [address]- [address] Jan, Allergic rhinitis due to pollen 477.0 [facility] [id number] [place] [id number] Jan, Dental examination V72.2 [place] [address] [address]- [address] Dec, Allergic rhinitis due to pollen 477.0 [place] [address] [address]- [address] October, [facility] [place] [facility] [address] [id number] [place] [address] Oct, [facility] [place] [facility] [address] [id number] [place] [address] Oct, [facility] [place] [facility] [address] [facility] [id number] [place] [address] Aug, [facility] [place] [facility] [address] [id number] [place] [address] Aug, [facility] [place] [facility] [address] [id number] [place] [address] Aug, [facility] [place] [facility] [address] [facility] [id number] [place] [address] Aug, [facility] [place] [facility] [address] [facility] [id number] [place] [address] Aug, [facility] [place] [facility] [address] [id number] [place] [address] Aug, [facility] [place] [facility] [address] [id number] [place] [address] Aug, [facility] [place] [facility] [address] [facility] [id number] [place] [address] Aug, [facility] [place] [facility] [address] [id number] [address] Jul, [facility] [place] [facility] [address] [id number], [place] [address] Jul, [facility] [place] [facility] [address] [id number] [place] [address] Jul, [facility] [place] [facility] [address] [id number] [place] [address]- [address] Jul, [facility] [place] [facility] [address] [facility] [id number] [place] [address]- [address] Jul, [facility] [place] [facility] [address] [id number] [place] [address]- [address] 07 Jul, 2014 [facility] [place] [facility] [address] [id number] [place] [address]703 Jul, [facility] [place] [facility] [address] [id number] [place] [address] Jul, [facility] [place] [facility] [address] [id number] [place] [address] Jul, [facility] [place] [facility] [address] [id number] [place] [address] Jul, [facility] [place] [facility] [address] [id number] [place] [address] Jul, [facility] [place] [facility] [address] [id number] [place] [address] 37[address] Jun, [facility] [place] [facility] [address] [id number] [place] [address] 8047 Jun, [facility] [place] [facility] [address] [id number] [place] [address] 5[address] Jun, [facility] [place] [facility] [address] [id number] [place] [address] 4[address] Jun, [facility] [place] [facility] [address] [id number] [place] [address] Jun, [facility] [place] [facility] [address] [id number] [place] [address] 9023 Jun, [facility] [place] [facility] [address] [id number] [place] [address] 1100 May, [facility] [place] [facility] [address] [id number] [place] [address] 2769 May, [facility] [place] [facility] [address] [id number] [place] [address] 1453 May, [facility] [place] [facility] [address] [id number] [place] [address] 5401 May, [facility] [place] [facility] [address] [id number] [place] [address]- 5667 May, [facility] [place] [facility] [address] [id number] [place] [address] 6321 May, [facility] [place] [facility] [address] [id number] [place] [address]- 0764 Apr, [facility] [place] [facility] [address] [id number] [place] [address]- 5603 Apr, [facility] [place] [facility] [address] [id number] [place] [address]- 0067 Mar, [facility] [place] [facility] [address] [id number] [place] [address]- 2914 Mar, [facility] [place] [facility] [address] [id number] [place] [address] 1472 Mar, [facility] [place] [facility] [address] [id number] [place] [address]- 3627 Mar, [facility] [place] [facility] [address] [id number] [place] [address]- 9785 Mar, [facility] [place] [facility] [address] [id number] [place] [address]- 8592 Mar, [facility] [place] [facility] [address] [id number] [place] [address] 7832 Jan, [facility] [place] [facility] [address] [id number] [address] 80[address] Jan, [facility] [place] [facility] [address] [id number] [place] [address]- 0275 Jan, [facility] [place] [facility] [address] [id number] [place] [address]- 2452 Jan, [facility] [place] [facility] [address] [id number] [place] [address]- 1141 Jan, [facility] [place] [facility] [address] [id number] [place] [address]- 1858 Jan, [facility] [place] [facility] [address] [id number] [place] [address]- 9370 Dec, [facility] [place] [facility] [address] [id number] [place] [address]- 8767 Dec, [facility] [place] [facility] [address] [id number] [place] [address]- 5706 Dec, [facility] [place] [facility] [address] [id number] [place] [address]- 3583 Dec, [facility] [place] [facility] [address] [id number] [place] [address]- 5586 Dec, [facility] [place] [facility] [address] [id number] [place] [address] 1977 Dec, [facility] [place] [facility] [address] [id number] [place] [address]- 4571 Dec, [facility] [place] [facility] [address] [id number] [place] [address]- 7902 Dec, [facility] [place] [facility] [address] [id number] [place] [address]- 6835 Dec, [facility] [place] [facility] [address] [id number] [place] [address]- 5682 Dec, [facility] [place] [facility] [address] [id number] [place] [address]- 4212 Dec, [facility] [place] [facility] [address] [id number] [place] [address]- 2158 Dec, [facility] [place] [facility] [address] [id number] [place] [address]- 6026 Dec, [facility] [place] [facility] [address] [id number] [place] [address]- 6518 Dec, [facility] [place] [facility] [address] [id number] [place] [address]- 4831 Dec, [facility] [place] [facility] [address] [id number] [place] [address]- 1198 Dec, [facility] [place] [facility] [address] [id number] [place] [address]- 4334 October, [facility] [place] [facility] [address] [id number] [place] [address]- 3916 October, [facility] [place] [facility] [address] [id number] [place] [address]- 1494 October, [facility] [place] [facility] [address] [id number] [place] [address]- 7698 October, [facility] [place] [facility] [address] [id number] [place] [address]- 5920 October, [facility] [place] [facility] [address] [id number] [place] [address]- 1708 October, [facility] [place] [facility] [address] [id number] [place] [address]- 2621 Oct, [facility] [place] [facility] [address] [id number] [place] [address]- 6921 Oct, [facility] [place] [facility] [address] [id number] [place] [address]- 7412 Oct, [facility] [place] [facility] [address] [id number] [place] [address]- 9220 Oct, [facility] [place] [facility] [address] [id number] [place] [address]- 8614 Oct, [facility] [place] [facility] [address] [id number] [place] [address]- 2726 Oct, [facility] [place] [facility] [address] [id number] [place] [address]- 6084 Aug, [facility] [place] [facility] [address] [id number] [place] [address]- 9500 Aug, [facility] [place] [facility] [address] [id number] [place] [address]- 7183 Aug, [facility] [address] [id number] [place] [address]- 2124 Aug, [facility] [place] [facility] [address] [id number] [place] [address]- 8476 Jul, [facility] [address] [id number] [place] [address]- 4245 Jul, [facility] [place] [facility] [address] [id number] [place] [address]- 6056 Jul, [facility] [address] [id number] [place] [address]- 8386 Jul, [facility] [address] [id number] [place] [address]- 6109 Jun, [facility] [address] [id number] [place] [address]- 3437 Jun, [facility] [address] [id number] [place] [address]- 3242 Jun, [facility] [address] [id number] [place] [address]- 6313 Jun, [facility] [place] [facility] [address] [id number] [place] [address]- 3852 Jun, [facility] [address] [id number] [place] [address]- 4545 Jun, [facility] [place] [facility] [address] [id number] [address]- 8650 Jun, [facility] [place] [facility] [address] [id number] [place] [address]19 Jun, [facility] [place] [facility] [address] [id number] [place] [address] Jun, [facility] [place] [facility] [address] [id number] [place] [address]- 6195 Jun, [facility] [place] [facility] [address] [id number] [place] [address]- 5709 Jun, [facility] [address] [id number] [place] [address]- 9623 May, [facility] [place] [facility] [address] [id number] [place] [address]- 0881 May, [facility] [address] [id number] [place] [address]- 0124 May, [facility] [place] [facility] [address] [id number] [place] [address]- 2447 May, [facility] [address] [id number] [place] [address]- 5249 May, [facility] [place] [facility] [address] [id number] [place] [address]- 7601 May, [facility] [place] [facility] [address] [id number] [place] [address]- 1094 May, [facility] [address] [id number] [place] [address]- 0769 Apr, [facility] [place] [facility] [address] [id number] [place] [address]- 6365 Apr, [facility] [address] [id number] [place] [address]- 0678 Apr, [facility] [place] [facility] [address] [id number] [place] [address]- 0572 Apr, [facility] [place] [facility] [address] [id number] [place] [address]- 2540 27 Mar, 2013 [facility] [place] [facility] [address] [id number] [place] [address] 26 Mar, 2013 [facility] [place] [facility] [address] [id number] [place] [address]- 4997 Mar, [facility] [place] [facility] [address] [id number] [place] [address] Mar, [facility] [place] [facility] [address] [id number] [place] [address]- 6507 Mar, [facility] [place] [facility] [address] [id number] [place] [address]- 1329 Mar, [facility] [place] [facility] [address] [id number] [place] [address]- 6639 Jan, [facility] [place] [facility] [address] [id number] [place] [address]- 8457 Jan, [facility] [place] [facility] [address] [id number] [place] [address]- 3704 Jan, [facility] [place] [facility] [address] [id number] [place] [address]- 5603 Jan, [facility] [place] [facility] [address] [id number] [place] [address]- 6118 Jan, [facility] [place] [facility] [address] [id number] [place] [address]- 8736 Dec, [facility] [place] [facility] [address] [id number] [place] [address]- 9040 Dec, [facility] [place] [facility] [address] [id number] [place] [address]- 7501 Dec, [facility] [place] [facility] [address] [id number] [place] [address]- 3300 Dec, [facility] [place] [facility] [address] [id number] [place] [address]- 0179 Dec, [facility] [place] [facility] [address] [id number] [place] [address]- 9978 Dec, [facility] [place] [facility] [address] [id number] [place] [address]- 5938 Dec, [facility] [place] [facility] [address] [id number] [place] [address]- 5377 Dec, [facility] [place] [facility] [address] [id number] [place] [address]- 9715 October, [facility] [address] [id number] [place] [address]- 6539 October, [facility] [address] [id number] [place] [address]- 7478 October, [facility] [address] [id number] [place] [address]- 9591 Oct, [facility] [place] [facility] [address] [id number] [place] [address]- 7058 Oct, [facility] [address] [id number] [place] [address]- 7938 Oct, [facility] [address] [id number] [place] [address]- 0572 Oct, [facility] [address] [id number] [place] [address]- 5933 Aug, [facility] [address] [id number] [place] [address]- 4005 Aug, [facility] [address] [id number] [place] [address]- 8965 Aug, [facility] [address] [facility] [id number] [place] [address]- 8045 Jul, [facility] [address] [id number] [place] [address]- 3862 May, [facility] [place] [facility] [address] [id number], [place] [address]- 0298 May, [facility] [place] [facility] [address] [id number] [place] [address]- 4186 Apr, [facility] [place] [facility] [address] [id number] [place] [address]- 9346 Apr, [facility] [address] [id number] [place] [address]- 2133 Apr, [facility] [place] [facility] [address] [id number] [place] [address]- 8762 Apr, [facility] [place] [facility] [address] [id number] [place] [address]- 8022 Apr, [facility] [place] [facility] [address] [id number] [place] [address]- 5484 Apr, [facility] [place] [facility] [address] [id number] [place] [address]- 5757 Apr, [facility] [place] [facility] [address] [id number] [place] [address]- 3202 Apr, [facility] [place] [facility] [address] [id number] [place] [address]- 2513 Apr, [facility] [place] [facility] [address] [id number] [place] [address]- 6362 Apr, [facility] [place] [facility] [address] [id number] [place] [address]- 7886 Apr, [facility] [place] [facility] [address] [id number] [place] [address]- 6976 Apr, [facility] [place] [facility] [address] [id number] [place] [address]- 2208 Mar, [facility] [place] [facility] [address] [id number] [place] [address]- 7799 Jan, [facility] [place] [facility] [address] [id number] [place] [address]- 1236 Dec, [facility] [place] [facility] [address] [id number] [place] [address]- 9054 October, [facility] [place] [facility] [address] [id number] [place] [address]- 8177 Oct, [facility] [place] [facility] [address] [id number] [place] [address]- 7732 Oct, [facility] [place] [facility] [address] [id number] [place] [address]- 2304 Oct, [facility] [id number] [address] 6126 Aug, [facility] [id number] [place] [address] 82342- 2546 Aug, [facility] [id number] [place] [address] 90937- 6676 Aug, [facility] [id number] [place] [address] 33061- 4426 Aug, [facility] [id number] [place] [address] 54205- 2006 Aug, [facility] [id number] [place] [address] 77919 2546 Aug, [facility] [id number] [place] [address] 92056- 8206 Jun, [facility] [id number] [place] [address] 38358- 0939 Apr, [facility] [id number] [place] [address] 34236- 5635 Jun, [facility] [id number] [place] [address] 46565- 6126 Jun, [facility] [id number] [place] [address] 83919- 9496 May, [facility] [address] [address]397 May, [facility] [id number] [place] [address] 95110- 0900 Apr, [facility] [id number] [place] [address]374- 9861 Apr, IMMUNIZATIONS No Known Immunizations SOCIAL HISTORY Never Assessed REASON FOR VISIT Allergy injection(s) STeposte CCMA PLAN OF CARE Activity Details Future/Pending Procedure IMMUNOTHERAPY, 2 OR MORE INJECTIONS VITAL SIGNS MEDICATIONS Medication Instructions Dosage Frequency Start Date End Date Duration Status Concerta 54 MG Orally Once a day 1 tablet in the morning 24h Oct, 90 days Unknown Nebulizer - as directed Aug, Unknown Zoloft 50 MG Orally Once a day 1 tablet 24h Unknown Levocetirizine Dihydrochloride 5 MG TAKE ONE TABLET BY MOUTH TWICE DAILY 90 Unknown MetFORMIN HCl ER 1000 mg Orally Once a day 1 tablet with evening meal 24h Unknown Spiriva Respimat 2.5 MCG/ACT Inhalation Once a day 2 puffs 24h Oct, Unknown Pulmicort 1 MG/2ML Inhalation Four times a day 4 ml 6h Unknown Albuterol Sulfate (2.5 MG/3ML) 0.083% Inhalation 4 times a day 3 ml as needed 6h 11 Oct, 2016 Unknown Nasonex 50 MCG/ACT USE ONE SPRAY IN EACH NOSTRIL TWICE DAILY 90 Unknown Montelukast Sodium 10 MG TAKE ONE TABLET BY MOUTH ONCE DAILY IN THE EVENING 90 Unknown Breo Ellipta 200-25 MCG/INH Inhalation Once a day 1 puff 24h Unknown Brovana 15 MCG/2ML Inhalation Twice a day 2 ml 12h Unknown Spiriva HandiHaler 18 MCG Unknown Singulair 10 mg take 1 tablet by Oral route 1 time per day Apr, Unknown Pulmicort Flexhaler 180 MCG/ACT Inhalation Twice a day 1 puff 12h Unknown Zofran ODT 8 MG Orally every 8 hours as needed for nausea/vomiting 1 tablet Jun, Unknown Nasonex 50 mcg/actuation Nasally 2 times a day 1 spray in each nare 12h Jan, 90 days Unknown Albenza 200 MG Orally once, repeat in 2 weeks 2 tablets Unknown Magnesium Oxide 250 MG Orally Once a day 2 tablets 24h Unknown pantoprazole 40 mg by oral route Once a day 1 tablet 24h Aug, Unknown ProAir RespiClick 108 (90 Base) MCG/ACT Inhalation every 4 hrs 1 puff as needed 4h 90 Unknown Aerobika - as directed Aug, Unknown Levothyroxine Sodium 100 MCG TAKE ONE TABLET BY MOUTH ONCE DAILY 90 Unknown Cryselle-28 0.3-30 MG-MCG Orally Daily for Three Weeks, 1 Week off 1 tablet Unknown Vitamin D 2000 UNIT Orally Once a day 1 tablet 24h Unknown Xyzal 5 mg 1 tablet by Oral route 2 times per day Mar, Unknown Oseltamivir Phosphate 75 MG Orally once a day 1 capsule 24h Jun, 10 days Unknown Ondansetron 8 MG DISSOLVE ONE TABLET UNDER TONGUE EVERY 6 HOURS NEEDED FOR NAUSEA OR VOMITING 20 Unknown Ibuprofen 800 MG Orally every 8 hours 1 tablet 8h 30 days Unknown Pulmozyme 1 MG/ML Inhalation Once a day 2.5 ml 24h Aug, Unknown EpiPen 2-Leo 0.3 MG/0.3ML Injection PRN Unknown Ranitidine HCl 150 MG Orally Once a day 1 capsule at bedtime 24h Unknown RESULTS No Results PROCEDURES Procedure Date Ordered Result Body Site IMMUNOTHERAPY INJECTIONS November 24, 2017 INSTRUCTIONS MEDICATIONS ADMINISTERED No Known Medications [...] History see above surgeries [facility] History [facility]
--- OUTSIDE RECORDS SUMMARY | 2018-07-18 07:23 | XMS REPORT ---
Author Author BRANDY SAGAR [facility] Address [address] [place] [address] Care Team Providers Care Flat Cutter Name Role Phone BRANDYTEZ HOYTHANY Unavailable PROBLEMS Type Condition ICD9-CM Code ZFL98-HB Code Onset Dates Condition Status SNOMED Code Problem Migraine with aura and without status migrainosus, not intractable G43.109 Active 2248283 Problem PCOS (polycystic ovarian syndrome) E28.2 Active 26451317 Problem Uncomplicated severe persistent asthma J45.50 Active 712428737 Problem Severe persistent asthma with exacerbation J45.51 Active 112743235 Problem Other elevated white blood cell (WBC) count D72.828 Active 424952043 Problem Multiple food allergies Z91.018 Active 861672826 Problem Pure hypercholesterolemia E78.00 Active 696112207 Problem Current chronic use of inhaled steroid Z79.51 Active 246900852 Problem Asthma exacerbation J45.901 Active 311762581 Problem ADD (attention deficit disorder) F90.0 Active 180654391 Problem Allergic rhinitis due to pollen J30.1 Active 73390125 Problem Vitamin D deficiency E55.9 Active 89013638 Problem Major depressive disorder, recurrent episode, mild F33.0 Active 471507048 Problem Acquired hypothyroidism E03.9 Active 746794880 Problem Gastroesophageal reflux disease without esophagitis K21.9 Active 086690973 ALLERGIES No Information ENCOUNTERS Encounter Location Date Diagnosis [facility] [id number] [address] Jan, Allergic reaction, initial encounter T78.40XA [place] [address], [place] [address] Dec, Allergic rhinitis due to pollen J30.1 [facility] [id number], [place] [address] Dec, [facility] [id number] [place] [address] 84792- 2313 Dec, Allergic rhinitis due to pollen J30.1 [facility] [id number] [place] [address] 34058- 9552 Dec, ADD (attention deficit disorder) F90.0 [place] [id number] [place] [address] 59181- 6867 Dec, ADD (attention deficit disorder) F90.0 and Uncomplicated severe persistent asthma J45.50 [place] [id number] [place] [address] 19479- 9092 Dec, Allergic rhinitis due to pollen J30.1 [place] [id number] [place] [address] 14159- 4124 Dec, [place] [id number] [place] [address] 82867- 8067 October, Allergic rhinitis due to pollen J30.1 [place] [id number] [place] [address] 27843- 5537 October, Allergic rhinitis due to pollen J30.1 [place] [id number] [place] [address] 53078- 3707 Oct, [place] [id number] [place] [address] 93137- 2623 Oct, Allergic rhinitis due to pollen J30.1 [facility] [id number] [place] [address] 67353- 3928 Oct, [facility] [id number] [place] [address] 98919- 5462 Oct, Allergic rhinitis due to pollen J30.1 [facility] [address] [place] [address] 59204- 1792 Oct, Severe persistent asthma with exacerbation J45.51 and Pneumonia due to Haemophilus influenzae, unspecified laterality, unspecified part of lung J14 [place] [id number] [place] [address] 89592- 7002 10 Oct, 2017 ADD (attention deficit disorder) F90.0 [place] [address] 67615- 5030 12 Aug, 2017 Haemophilus influenzae infection A49.2 [place] [address] 30390- 6751 09 Aug, 2017 Cough productive of purulent sputum R05 [place] [address] 65230- 4669 08 Aug, 2017 [place] [address] 16712- 3362 08 Aug, 2017 Pulmonary congestion R09.89 [place] [address] 70908- 1108 07 Aug, 2017 Severe persistent asthma with exacerbation J45.51 ; Hiatal hernia K44.9 and Gastroesophageal reflux disease without esophagitis K21.9 [place] [address] 35555- 9336 02 Aug, 2017 Other elevated white blood cell (WBC) count D72.828 [place] [address] 45842- 5812 Aug, Uncomplicated severe persistent asthma J45.50 [place] [address] 20686- 3039 Aug, Pure hypercholesterolemia E78.00 ; Uncomplicated severe persistent asthma J45.50 and Acquired hypothyroidism E03.9 [place] [address] 89460- 0649 20 Aug, 2017 Acquired hypothyroidism E03.9 ; Pure hypercholesterolemia E78.00 and Uncomplicated severe persistent asthma J45.50 [place] [id number] [place] [address] 29354- 2199 15 Aug, 2017 Allergic rhinitis due to pollen J30.1 [place] [address] 13248- 5525 Aug, Allergic rhinitis due to pollen J30.1 [facility] [id number] [place] [address] 88445- 7751 Aug, [facility] [address] [id number] Jul, Pharyngitis, unspecified etiology J02.9 and Lymphadenopathy R59.1 [place] [address] 15752- 9304 Jul, ADD (attention deficit disorder) F90.0 [place] [address] 694035- 6721 Jul, Allergic rhinitis due to pollen J30.1 [place] [id number] [place] [address] 62422- 6339 Jul, Dental examination Z01.20 [place] [address] 51852- 5140 Jun, Cough productive of purulent sputum R05 [place] [address] 59411- 1141 Jun, Allergic rhinitis due to pollen J30.1 [place] [id number] [place] [address] 92700- 6144 Jun, [place] [id number] [place] [address] 95317- 1610 Jun, Allergic rhinitis due to pollen J30.1 [place] [id number] [place] [address] 41388- 7807 Jun, Allergic rhinitis due to pollen J30.1 [place] [id number] [place] [address] 27252- 9874 May, Allergic rhinitis due to pollen J30.1 [place] [id number] [place] [address] 94264- 4554 May, Pneumonia due to Haemophilus influenzae, unspecified laterality, unspecified part of lung J14 [place] [id number] [place] [address] 82874- 6483 May, Allergic rhinitis due to pollen J30.1 [place] [id number] [place] [address] 90033- 0874 May, Other adverse food reactions, not elsewhere classified, initial encounter T78.1XXA and Pneumonia due to Haemophilus influenzae, unspecified laterality, unspecified part of lung J14 [place] [id number] [place] [address] 23887- 7535 13 May, 2017 Pneumonia due to Haemophilus influenzae, unspecified laterality, unspecified part of lung J14 [place] [address] 97142- 2523 10 May, 2017 Multiple food allergies Z91.018 ; Uncomplicated severe persistent asthma J45.50 ; Cough productive of purulent sputum R05 and Uses central nervous system stimulants F15.90 [place] [address] 45700- 6911 Apr, Allergic rhinitis due to pollen J30.[address] 83307- 6834 Apr, Allergic rhinitis due to pollen J30.1 [place] [id number] [place] [address] 43484- 5429 Apr, Allergic rhinitis due to pollen J30.1 [place] [id number] [place] [address] 57478- 3970 Apr, ADD (attention deficit disorder) F90.[address] 12018- 6919 Mar, Allergic rhinitis due to pollen J30.1 [place] [id number] [place] [address] 64897- 8484 Mar, Encounter for immunization Z23 [address] 60926- 6300 19 Mar, 2017 [facility] [address] [place] [address] 82279- 0536 14 Mar, 2017 Allergic rhinitis due to pollen J30.1 [facility] [id number] [place] [address] 95059- 2630 07 Mar, 2017 Allergic rhinitis due to pollen J30.1 [place] [id number] [place] [address] 91757- 1251 Jan, Allergic rhinitis due to pollen J30.1 [place] [id number] [place] [address] 19160- 1136 Jan, Allergic rhinitis due to pollen J30.1 [place] [id number] [place] [address] 20795- 5713 Dec, Uncomplicated severe persistent asthma J45.50 [place] [address] 50522- 4390 Dec, Allergic rhinitis due to pollen J30.1 [place] [id number] [place] [address] 38417- 1565 Dec, Allergic rhinitis due to pollen J30.1 [place] [id number] [place] [address] 22858- 1943 Dec, Allergic rhinitis due to pollen J30.1 [place] [id number] [place] [address] 15256- 9117 Dec, ADD (attention deficit disorder) F90.0 [place] [id number] [place] [address] 11058- 5966 Dec, Allergic rhinitis due to pollen J30.1 [place] [id number] [place] [address] 99117- 9259 Dec, Screening for tuberculosis Z11.1 and Visit for TB skin test Z11.1 [place] [id number] [place] [address] 67262- 5327 Dec, Uncomplicated severe persistent asthma J45.50 ; Palpitations R00.2 ; Pericardial effusion (noninflammatory) I31.3 and Chest discomfort R07.89 [place] [address] 89425- 5168 Dec, Allergic rhinitis due to pollen J30.1 [place] [id number] [place] [address] 30770- 7322 Dec, Chronic cough R05 [place] [address] 82209- 5637 Dec, [place] [address] 21705- 3197 Dec, Allergic rhinitis due to pollen J30.1 [place] [address] 42120- 3810 Dec, Allergic rhinitis due to pollen J30.1 [place] [address] 50562- 7225 Dec, Chronic cough R05 [place] [address] 05736- 6702 October, Allergic rhinitis due to pollen J30.1 [place] [id number] [place] [address] 26013- 0615 October, Allergic rhinitis due to pollen J30.1 [place] [id number] [place] [address] 32178- 7704 October, [place] [id number] [place] [address] 61256- 2336 October, Asthma exacerbation J45.901 [place] [address] 72359- 1253 October, Asthma exacerbation J45.901 and Current chronic use of inhaled steroid Z79.51 [place] [id number] [place] [address] 04145- 8389 October, Uncomplicated severe persistent asthma J45.50 [place] [id number] [place] [address] 17839- 2298 October, Allergic rhinitis due to pollen J30.1 [place] [id number] [place] [address] 16249- 7103 Oct, [place] [address] 90188- 3254 Oct, Asthma exacerbation J45.901 and Sputum production R05 [place] [address] 61108- 6272 Oct, Asthma exacerbation J45.901 [place] [address] 80048- 3978 Oct, ADD (attention deficit disorder) F90.0 [place] [address] 82784- 2115 Oct, ADD (attention deficit disorder) F90.0 [place] [address] 18047- 7069 Aug, Allergic rhinitis due to pollen J30.1 [place] [address] 80558- 3324 Aug, Atypical pneumonia J18.9 [place] [id number] [place] [address] 62208- 6157 Aug, Allergic rhinitis due to pollen J30.1 [place] [id number] [place] [address] 66656- 4116 Aug, Acquired hypothyroidism E03.9 [place] [address] 71659- 8447 Aug, Multiple food allergies Z91.018 ; Elevated blood pressure reading R03.0 and Anaphylaxis, subsequent encounter T78.2XXD [place] [address] [id number] Aug, [place] [id number] [place] [address] 33720- 3080 Aug, Anaphylaxis, initial encounter T78.2XXA [place] [address] 03304- 6383 Aug, Allergic rhinitis due to pollen J30.1 [place] [address] 67140- 4707 Aug, Dental examination Z01.20 [place] [address] 45102- 0450 Aug, Allergic rhinitis due to pollen J30.[address] 67862- 1734 Aug, Acquired hypothyroidism E03.9 and Pure hypercholesterolemia E78.[address] 53603- 0280 Aug, ADD (attention deficit disorder) F90.0 ; Acquired hypothyroidism E03.9 and Pure hypercholesterolemia E78.00 [place] [id number] [place] [address] 98002- 0986 Aug, Asthma exacerbation J45.901 [place] [id number] [place] [address] 91194- 6533 Jul, Allergic rhinitis due to pollen J30.1 [place] [id number] [place] [address] 82771- 6776 Jul, Allergic rhinitis due to pollen J30.1 [place] [id number] [place] [address] 12306- 6268 Jul, [place] [address] 72325- 9732 Jul, Allergic rhinitis due to pollen J30.1 [place] [id number] [place] [address] 17281- 4331 Jul, Other halfway (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 and ADD ( attention deficit disorder) F90.0 [facility] [id number] [place] [address] 74524- 7901 Jul, Other long term care pharmacist (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 and ADD ( attention deficit disorder) F90.0 [facility] [id number] [place] [address] 69728- 9860 Jul, [facility] [address] 73955- 7044 Jun, Allergic rhinitis due to pollen J30.1 [facility] [address] 04905- 9818 Jun, Allergic rhinitis due to pollen J30.1 [place] [id number] [place] [address] 90514- 9886 Jun, [place] [address] 36555- 6113 May, Allergic rhinitis due to pollen J30.1 [facility] [id number] [place] [address] 11793- 3225 May, Allergic rhinitis due to pollen J30.1 [facility] [id number] [place] [address] 10431- 5743 Apr, Allergic rhinitis due to pollen J30.1 [place] [id number] [place] [address] 41927- 2104 Apr, Allergic rhinitis due to pollen J30.1 [facility] [id number] [place] [address] 09320- 1850 Apr, Encounter for immunization Z23 [facility] [address] 55957- 9509 Apr, [facility] [id number] [place] [address] 78782- 2761 Mar, Allergic rhinitis due to pollen J30.1 [facility] [address] [place] [address]- 0174 Mar, Multiple allergies Z88.9 [facility] [id number] [place] [address] 18984- 7487 Mar, Candidal vaginitis B37.3 [facility] [id number] [place] [address] 18538- 4133 08 Mar, 2016 Allergic rhinitis due to pollen J30.1 [facility] [id number] [place] [address] 65800- 2624 Jan, Asthma exacerbation J45.901 ; Fatigue, unspecified type R53.83 and Community acquired pneumonia J18.9 [facility] [id number] [place] [address] [id number] Jan, Encounter for dental examination Z01.20 [facility] [id number] [place] [address] 34952- 5498 Jan, Allergic rhinitis due to pollen J30.1 [facility] [id number] [place] [address] 14026- 5548 Dec, Allergic rhinitis due to pollen J30.1 [facility] [id number] [place] [address] 76217- 6466 Dec, [facility] [id number] [place] [address] 83999- 8570 Dec, Allergic rhinitis due to pollen J30.1 [facility] [id number] [place] [address] 41959- 0081 Dec, [facility] [id number] [place] [address] 13610- 8266 Dec, [facility] [id number] [place] [address] 96105- 6271 Dec, [facility] [id number] [place] [address] 63628- 5256 Dec, Allergic rhinitis due to pollen J30.1 [facility] [address] [place] [address]- 2396 Dec, [facility] [address], [place] [address]- 3210 Dec, [facility] [address], [place] [address]- 0968 Dec, Allergic rhinitis due to pollen J30.1 [facility] [address], [place] [address]- 9122 October, Allergic rhinitis due to pollen J30.1 [facility] [address], [place] [address]- 3779 October, Allergic rhinitis due to pollen J30.1 [facility] [address], [place] [address]- 8508 October, [facility] [id number] [place] [address] 82942- 7036 October, [facility] [address] [place] [address] 27606- 4987 October, ADD (attention deficit disorder) F90.0 ; Major depressive disorder, recurrent episode, mild F33.0 and Uncomplicated severe persistent asthma J45.50 [place] [address], [place] [address]- 7564 Oct, Allergic rhinitis due to pollen J30.1 [facility] [address], [place] [address]- 5283 Oct, ADD (attention deficit disorder) F90.0 [facility] [address], [place] [address]- 7686 Oct, Allergic rhinitis due to pollen 477.0 [facility] [address], [place] [address]- 7142 Aug, Allergic rhinitis due to pollen 477.0 [facility] [address], [place] [address]- 2886 Aug, 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 [facility] [id number] [place] [address] 41162- 7090 Aug, [facility] [id number] [place] [address] 64086- 0211 Aug, Allergic rhinitis due to pollen 477.0 [facility] [id number] [place] [address] 31764- 0125 Aug, Allergic rhinitis due to pollen 477.0 [facility] [id number] [place] [address] 18210- 6511 Aug, Allergic rhinitis due to pollen 477.0 [facility] [id number] [place] [address] 07902- 9022 Aug, Exposure to influenza Z20.828 [facility] [address] [id number] Aug, Encounter for dental examination and cleaning without abnormal findings Z01.20 [facility] [id number] [place] [address] 94011- 4777 Aug, Allergic rhinitis due to pollen J30.1 [facility] [id number] [place] [address] 45685- 6477 Aug, [facility] [id number] [place] [address] 01324- 8266 Aug, 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 [facility] [id number] [place] [address] 78071- 7769 Jul, [facility] [address] 05759- 5888 Jul, Allergic rhinitis due to pollen 477.0 [facility] [id number] [place] [address] 95269- 8321 Jul, [facility] [address] 08058- 0602 Jul, Allergic rhinitis due to pollen 477.0 [place] [address] 02915- 1045 Jun, ADD (attention deficit disorder) F90.0 ; Acquired hypothyroidism E03.9 ; PCOS (polycystic ovarian syndrome) E28.2 ; Polyarthralgia M25.50 and On stimulant medication Z79.899 [place] [address] 74557- 3568 Apr, Encounter for immunization Z23 [place] [address] 11150- 4167 16 Mar, 2015 Allergic rhinitis due to pollen 477.0 [place] [address] 24612- 6408 Mar, Influenza vaccine administered V04.81 [place] [address] 43912- 4549 Mar, [place] [address] 11981- 7472 Jan, Allergic rhinitis due to pollen 477.0 [place] [address] 03085- 1498 Jan, Allergic rhinitis due to pollen 477.0 [place] [address] 01663- 4761 Jan, Allergic rhinitis due to pollen 477.0 [facility] [address] [id number] Jan, Dental examination V72.2 [place] [address] 64147- 5356 Dec, Allergic rhinitis due to pollen 477.0 [place] [address] 83399- 1160 October, [facility] [address] 21627- 7062 14 Oct, 2014 [facility] [place] [facility] [address] [id number] [place] [address]- 3189 Oct, [facility] [place] [facility] [address] [id number] [place] [address]- 5581 Aug, [facility] [place] [facility] [address] [facility] [id number] [place] [address]- 3435 Aug, [facility] [place] [facility] [address] [id number] [place] [address]- 2642 Aug, [facility] [place] [facility] [address] [id number] [place] [address]- 3556 Aug, [facility] [place] [facility] [address] [id number] [place] [address]- 5606 Aug, [facility] [place] [facility] [address] [facility] [id number] [place] [address]- 0553 Aug, [facility] [place] [facility] [address] [id number] [place] [address]- 2368 Aug, [facility] [place] [facility] [address] [id number] [place] [address]- 1473 Aug, [facility] [place] [facility] [address] [facility] [id number] [place] [address]- 1934 Jul, [facility] [place] [facility] [address] [id number], [place] [address] Jul, [facility] [place] [facility] [address] [id number], [place] [address] Jul, [facility] [place] [facility] [address] [id number] [place] [address] Jul, [facility] [place] [facility] [address] [facility] [id number] [place] [address] Jul, [facility] [place] [facility] [address] [facility] [id number] [place] [address] Jul, [facility] [place] [facility] [address] [id number] [place] [address] Jul, [facility] [place] [facility] [address] [id number] [place] [address] Jul, [facility] [place] [facility] [address] [id number] [place] [address] Jul, [facility] [place] [facility] [address] [id number] [place] [address] Jul, [facility] [place] [facility] [address] [id number] [place] [address] Jul, [facility] [place] [facility] [address] [id number] [place] [address] Jun, [facility] [place] [facility] [address] [id number] [place] [address] Jun, [facility] [place] [facility] [address] [id number] [place] [address] Jun, [facility] [place] [facility] [address] [id number] [place] [address] Jun, [facility] [place] [facility] [address] [id number] [place] [address] Jun, [facility] [place] [facility] [address] [id number] [place] [address] Jun, [facility] [place] [facility] [address] [id number] [place] [address] May, [facility] [place] [facility] [address] [id number] [place] [address] May, [facility] [place] [facility] [address] [id number] [place] [address] May, [facility] [place] [facility] [address] [id number] [place] [address] May, [facility] [place] [facility] [address] [id number] [place] [address] 2273 May, [facility] [place] [facility] [address] [id number] [place] [address] 2691 May, [facility] [place] [facility] [address] [id number] [place] [address] 4208 Apr, [facility] [place] [facility] [address] [id number] [place] [address]- 6[address] Apr, [facility] [place] [facility] [address] [id number] [place] [address] 0888 Mar, [facility] [place] [facility] [address] [id number] [place] [address]- 2182 Mar, [facility] [place] [facility] [address] [id number] [place] [address] 5657 Mar, [facility] [place] [facility] [address] [id number] [place] [address] 8959 Mar, [facility] [place] [facility] [address] [id number] [place] [address]- 1475 Mar, [facility] [place] [facility] [address] [id number] [place] [address]- 2230 Mar, [facility] [place] [facility] [address] [id number] [place] [address]- 5385 Jan, [facility] [place] [facility] [address] [id number] [place] [address]- 3309 Jan, [facility] [place] [facility] [address] [id number], [place] [address] 66[address] Jan, [facility] [place] [facility] [address] [id number] [place] [address]- 1321 Jan, [facility] [place] [facility] [address] [id number] [place] [address]- 1728 Jan, [facility] [place] [facility] [address] [id number] [place] [address]- 7809 Jan, [facility] [place] [facility] [address] [id number] [place] [address]- 5283 Dec, [facility] [place] [facility] [address] [id number] [place] [address]- 2462 Dec, [facility] [place] [facility] [address] [id number] [place] [address]- 5223 Dec, [facility] [place] [facility] [address] [id number] [place] [address]- 3114 Dec, [facility] [place] [facility] [address] [id number] [place] [address]- 1898 Dec, [facility] [place] [facility] [address] [id number] [place] [address]- 4830 Dec, [facility] [place] [facility] [address] [id number] [place] [address]- 0605 Dec, [facility] [place] [facility] [address] [id number] [place] [address]- 2516 Dec, [facility] [place] [facility] [address] [id number] [place] [address]- 0796 Dec, [facility] [place] [facility] [address] [id number] [place] [address]- 2224 Dec, [facility] [place] [facility] [address] [id number] [place] [address]- 4057 Dec, [facility] [place] [facility] [address] [id number] [place] [address]- 7923 Dec, [facility] [place] [facility] [address] [id number] [place] [address]- 6918 Dec, [facility] [place] [facility] [address] [id number] [place] [address]- 4072 Dec, [facility] [place] [facility] [address] [id number] [place] [address]- 4795 Dec, [facility] [place] [facility] [address] [id number] [place] [address]- 0724 Dec, [facility] [place] [facility] [address] [id number] [place] [address]- 3370 October, [facility] [place] [facility] [address] [id number] [place] [address]- 8852 October, [facility] [place] [facility] [address] [id number] [place] [address]- 0209 October, [facility] [place] [facility] [address] [id number] [place] [address]- 9473 October, [facility] [place] [facility] [address] [id number] [place] [address]- 2742 October, [facility] [place] [facility] [address] [id number] [place] [address]- 9118 October, [facility] [place] [facility] [address] [id number] [place] [address]- 3622 Oct, [facility] [place] [facility] [address] [id number] [place] [address]- 0664 Oct, [facility] [place] [facility] [address] [id number] [place] [address]- 1592 Oct, [facility] [place] [facility] [address] [id number] [place] [address]- 7033 Oct, [facility] [place] [facility] [address] [id number] [place] [address]- 2058 Oct, [facility] [place] [facility] [address] [id number] [place] [address]- 8218 Oct, [facility] [place] [facility] [address] [id number] [place] [address] 1941 Aug, [facility] [place] [facility] [address] [id number] [place] [address]- 7404 Aug, [facility] [place] [facility] [address] [id number] [place] [address]- 7643 Aug, [facility] [place] [facility] [address] [id number] [place] [address]- 2546 Aug, [facility] [address] [id number] [place] [address]- 8279 Jul, [facility] [place] [facility] [address] [id number] [place] [address]- 1676 Jul, [facility] [address] [id number] [place] [address]- 5655 Jul, [facility] [place] [facility] [address] [id number] [place] [address]- 4383 Jul, [facility] [address] [id number] [place] [address]- 3282 Jun, [facility] [place] [facility] [address] [id number] [place] [address]- 2925 Jun, [facility] [address] [id number] [place] [address]- 2749 Jun, [facility] [place] [facility] [address] [id number] [place] [address]- 1025 Jun, [facility] [address] [id number] [place] [address]- 5259 Jun, [facility] [place] [facility] [address] [id number] [place] [address]- 3912 Jun, [facility] [place] [facility] [address] [id number] [place] [address]- 0648 Jun, [facility] [place] [facility] [address] [id number], [place] [address]- 6973 Jun, [facility] [place] [facility] [address] [id number] [place] [address] Jun, [facility] [place] [facility] [address] [id number] [place] [address] Jun, [facility] [place] [facility] [address] [id number] [place] [address] Jun, [facility] [place] [facility] [address] [id number] [place] [address]- 0165 May, [facility] [place] [facility] [address] [id number] [place] [address]- 6876 May, [facility] [place] [facility] [address] [id number] [place] [address]- 5046 May, [facility] [place] [facility] [address] [id number] [place] [address]- 9105 May, [facility] [place] [facility] [address] [id number] [place] [address]- 7666 May, [facility] [place] [facility] [address] [id number] [place] [address]- 8777 May, [facility] [place] [facility] [address] [id number] [place] [address]- 6201 May, [facility] [place] [facility] [address] [id number] [place] [address]- 1323 Apr, [facility] [place] [facility] [address] [id number] [place] [address]- 5101 30 Apr, 2013 [facility] [place] [facility] [address] [id number] [place] [address]- 3747 18 Apr, 2013 [facility] [place] [facility] [address] [id number] [place] [address]- 0183 Apr, [facility] [place] [facility] [address] [id number] [place] [address]- 2541 27 Mar, 2012 [facility] [place] [facility] [address] [id number] [place] [address]- 2548 26 Mar, 2012 [facility] [place] [facility] [address] [id number] [place] [address] 2549 26 Mar, 2012 [facility] [place] [facility] [address] [id number] [place] [address]- 2545 23 Mar, 2012 [facility] [place] [facility] [address] [id number] [place] [address]- 8690 Mar, [facility] [place] [facility] [address] [id number] [place] [address]- 5918 Mar, [facility] [place] [facility] [address] [id number] [place] [address]- 4183 Jan, [facility] [place] [facility] [address] [id number] [place] [address]- 5985 Jan, [facility] [place] [facility] [address] [id number] [place] [address]- 9776 Jan, [facility] [place] [facility] [address] [id number] [place] [address]- 2715 Jan, [facility] [place] [facility] [address] [id number] [place] [address]- 3159 Jan, [facility] [place] [facility] [address] [id number] [place] [address]- 2353 Dec, [facility] [place] [facility] [address] [id number] [place] [address]- 4713 Dec, [facility] [place] [facility] [address] [id number] [place] [address]- 8510 Dec, [facility] [place] [facility] [address] [id number] [place] [address]- 7142 Dec, [facility] [place] [facility] [address] [id number] [place] [address]- 4814 Dec, [facility] [place] [facility] [address] [id number] [place] [address]- 3037 Dec, [facility] [place] [facility] [address] [id number] [place] [address]- 6129 Dec, [facility] [place] [facility] [address] [id number] [place] [address]- 0125 Dec, [facility] [place] [facility] [address] [id number] [place] [address]- 4760 October, [facility] [place] [facility] [address] [id number] [place] [address]- 7369 October, [facility] [address] [id number] [place] [address]- 6453 October, [facility] [place] [facility] [address] [id number] [place] [address]- 9801 Oct, [facility] [address] [id number] [place] [address]- 2091 Oct, [facility] [place] [facility] [address] [id number] [place] [address]- 8484 Oct, [facility] [address] [id number] [place] [address]- 1606 Oct, [facility] [place] [facility] [address] [id number] [place] [address]- 7580 Aug, [facility] [address] [id number] [place] [address]- 6528 Aug, [facility] [place] [facility] [address] [id number] [place] [address]- 0506 Aug, [facility] [address] [id number] [place] [address]- 4802 Jul, [facility] [address] [facility] [id number] [place] [address]- 7067 May, [facility] [address] [id number] [place] [address]- 6288 May, [facility] [place] [facility] [address] [id number], [place] [address]- 0970 Apr, [facility] [place] [facility] [address] [id number] [place] [address]- 6449 Apr, [facility] [place] [facility] [address] [facility] [id number] [place] [address]- 5216 Apr, [facility] [place] [facility] [address] [id number] [place] [address]92 Apr, [facility] [place] [facility] [address] [id number] [place] [address]- 4012 Apr, [facility] [place] [facility] [address] [id number] [place] [address]- 2974 Apr, [facility] [place] [facility] [address] [id number] [place] [address]- 1000 Apr, [facility] [place] [facility] [address] [id number] [place] [address]- 9739 Apr, [facility] [place] [facility] [address] [id number] [place] [address]- 0677 Apr, [facility] [place] [facility] [address] [id number] [place] [address]- 2488 Apr, [facility] [place] [facility] [address] [id number] [place] [address]- 3211 Apr, [facility] [place] [facility] [address] [id number] [place] [address]- 3039 Apr, [facility] [place] [facility] [address] [id number] [place] [address]- 3723 Mar, [facility] [place] [facility] [address] [id number] [place] [address]- 8333 Jan, [facility] [place] [facility] [address] [id number] [place] [address]- 0938 Dec, [facility] [place] [facility] [address] [id number] [place] [address]- 7545 October, [facility] [place] [facility] [address] [id number] [place] [address]- 9936 Oct, [facility] [place] [facility] [address] [id number] [place] [address]- 9015 Oct, [facility] [place] [facility] [address] [id number] [place] [address]- 2623 Oct, [facility] [place] [facility] [address] [id number] [place] [address]- 5228 Aug, [facility] [id number], [place] [address]- 7412 Aug, [facility] [id number] [place] [address] 786113- 2046 Aug, [facility] [id number], [place] [address]- 5064 Aug, [facility] [id number] [place] [address] 27029- 5533 Aug, [facility] [id number] [place] [address] 96467- 0795 Aug, [facility] [id number] [place] [address] 21619- 1550 Jun, [facility] [id number] [place] [address] 105716- 8706 Apr, [facility] [id number] [place] [address] 21143- 2296 Jun, [facility] [id number] [place] [address] 509297- 1422 Jun, [facility] [id number] [place] [address] 641573- 5561 May, [facility] [address], [place] [address]- 6748 May, [facility] [address], [place] [address]- 3359 Apr, [facility] [address], [place] [address]- 5079 Apr, IMMUNIZATIONS No Known Immunizations SOCIAL HISTORY Never Assessed REASON FOR VISIT pinworm exposure PLAN OF CARE VITAL SIGNS MEDICATIONS Medication Instructions Dosage Frequency Start Date End Date Duration Status Albenza 200 MG Orally once, repeat in 2 weeks 2 tablets Active RESULTS No Results PROCEDURES No Known [...] History see above surgeries Hospitalization History Anaphylactic shock-VC 08/23/16
--- OUTSIDE RECORDS SUMMARY | 2018-07-18 07:24 | XMS REPORT ---
Author Author BRANDY SAGAR [facility] Address [address] [place] [address] Care Team Providers Care Stonework Supervisor Name Role Phone BRANDYTEZ HOYTHANY Unavailable PROBLEMS Type Condition ICD9-CM Code LXO67-UB Code Onset Dates Condition Status SNOMED Code Problem Migraine with aura and without status migrainosus, not intractable G43.109 Active 7696393 Problem PCOS (polycystic ovarian syndrome) E28.2 Active 48422438 Problem Uncomplicated severe persistent asthma J45.50 Active 711319004 Problem Severe persistent asthma with exacerbation J45.51 Active 742222658 Problem Other elevated white blood cell (WBC) count D72.828 Active 762176515 Problem Multiple food allergies Z91.018 Active 238942255 Problem Pure hypercholesterolemia E78.00 Active 636807232 Problem Current chronic use of inhaled steroid Z79.51 Active 587357446 Problem Asthma exacerbation J45.901 Active 868464416 Problem ADD (attention deficit disorder) F90.0 Active 389409295 Problem Allergic rhinitis due to pollen J30.1 Active 67105011 Problem Vitamin D deficiency E55.9 Active 98661538 Problem Major depressive disorder, recurrent episode, mild F33.0 Active 731317799 Problem Acquired hypothyroidism E03.9 Active 489496841 Problem Gastroesophageal reflux disease without esophagitis K21.9 Active 340948631 ALLERGIES No Information ENCOUNTERS Encounter Location Date Diagnosis [facility] [id number] [address] Jan, Allergic reaction, initial encounter T78.40XA [place] [address], [place] [address] Dec, Allergic rhinitis due to pollen J30.1 [facility] [id number], [place] [address] Dec, [facility] [id number] [place] [address] 78489- 3014 Dec, Allergic rhinitis due to pollen J30.1 [facility] [id number] [place] [address] 71639- 6832 Dec, ADD (attention deficit disorder) F90.0 [place] [id number] [place] [address] 94818- 5202 Dec, ADD (attention deficit disorder) F90.0 and Uncomplicated severe persistent asthma J45.50 [place] [id number] [place] [address] 53348- 0297 Dec, Allergic rhinitis due to pollen J30.1 [place] [id number] [place] [address] 04192- 4369 Dec, [place] [id number] [place] [address] 22490- 2398 October, Allergic rhinitis due to pollen J30.1 [place] [id number] [place] [address] 04708- 4871 October, Allergic rhinitis due to pollen J30.1 [place] [id number] [place] [address] 33734- 1885 Oct, [place] [id number] [place] [address] 74987- 7150 Oct, Allergic rhinitis due to pollen J30.1 [facility] [id number] [place] [address] 77620- 5141 Oct, [facility] [id number] [place] [address] 14546- 2110 Oct, Allergic rhinitis due to pollen J30.1 [facility] [id number] [place] [address] 00223- 7885 Oct, Severe persistent asthma with exacerbation J45.51 and Pneumonia due to Haemophilus influenzae, unspecified laterality, unspecified part of lung J14 [place] [id number] [place] [address] 38265- 8402 10 Oct, 2017 ADD (attention deficit disorder) F90.0 [place] [address] 12632- 1166 12 Aug, 2017 Haemophilus influenzae infection A49.2 [place] [address] 54622- 1650 09 Aug, 2017 Cough productive of purulent sputum R05 [place] [address] 70346- 5482 08 Aug, 2017 [place] [address] 56062- 9786 08 Aug, 2017 Pulmonary congestion R09.89 [place] [address] 56840- 5893 07 Aug, 2017 Severe persistent asthma with exacerbation J45.51 ; Hiatal hernia K44.9 and Gastroesophageal reflux disease without esophagitis K21.9 [place] [address] 31498- 4921 02 Aug, 2017 Other elevated white blood cell (WBC) count D72.828 [place] [address] 08396- 2778 Aug, Uncomplicated severe persistent asthma J45.50 [place] [address] 40644- 5268 Aug, Pure hypercholesterolemia E78.00 ; Uncomplicated severe persistent asthma J45.50 and Acquired hypothyroidism E03.9 [place] [address] 73792- 8678 20 Aug, 2017 Acquired hypothyroidism E03.9 ; Pure hypercholesterolemia E78.00 and Uncomplicated severe persistent asthma J45.50 [place] [id number] [place] [address] 49064- 6307 15 Aug, 2017 Allergic rhinitis due to pollen J30.1 [place] [address] 51029- 4116 Aug, Allergic rhinitis due to pollen J30.1 [facility] [id number] [place] [address] 88019- 3268 Aug, [facility] [place] [address] [id number] Jul, Pharyngitis, unspecified etiology J02.9 and Lymphadenopathy R59.1 [place] [address] 76256- 2233 Jul, ADD (attention deficit disorder) F90.0 [place] [address] 909445- 4160 Jul, Allergic rhinitis due to pollen J30.1 [place] [id number] [place] [address] 98402- 9654 Jul, Dental examination Z01.20 [place] [address] 19047- 5741 Jun, Cough productive of purulent sputum R05 [place] [address] 74873- 1071 Jun, Allergic rhinitis due to pollen J30.1 [place] [id number] [place] [address] 00600- 2895 Jun, [place] [id number] [place] [address] 35469- 3606 Jun, Allergic rhinitis due to pollen J30.1 [place] [id number] [place] [address] 34660- 7266 Jun, Allergic rhinitis due to pollen J30.1 [place] [id number] [place] [address] 74536- 6078 May, Allergic rhinitis due to pollen J30.1 [place] [id number] [place] [address] 13774- 7248 May, Pneumonia due to Haemophilus influenzae, unspecified laterality, unspecified part of lung J14 [place] [id number] [place] [address] 27485- 4905 May, Allergic rhinitis due to pollen J30.1 [place] [id number] [place] [address] 02734- 1205 May, Other adverse food reactions, not elsewhere classified, initial encounter T78.1XXA and Pneumonia due to Haemophilus influenzae, unspecified laterality, unspecified part of lung J14 [place] [id number] [place] [address] 21312- 3933 13 May, 2017 Pneumonia due to Haemophilus influenzae, unspecified laterality, unspecified part of lung J14 [place] [address] 57896- 7649 10 May, 2017 Multiple food allergies Z91.018 ; Uncomplicated severe persistent asthma J45.50 ; Cough productive of purulent sputum R05 and Uses central nervous system stimulants F15.90 [place] [address] 89330- 3473 Apr, Allergic rhinitis due to pollen J30.[address] 40068- 2555 Apr, Allergic rhinitis due to pollen J30.1 [place] [id number] [place] [address] 03281- 7816 Apr, Allergic rhinitis due to pollen J30.1 [place] [id number] [place] [address] 81159- 7777 Apr, ADD (attention deficit disorder) F90.[address] 09632- 0036 Mar, Allergic rhinitis due to pollen J30.1 [place] [id number] [place] [address] 97849- 2735 Mar, Encounter for immunization Z23 [address] 08355- 9398 19 Mar, 2017 [facility] [address] [place] [address] 51549- 4972 14 Mar, 2017 Allergic rhinitis due to pollen J30.1 [facility] [id number] [place] [address] 94721- 6819 07 Mar, 2017 Allergic rhinitis due to pollen J30.1 [place] [id number] [place] [address] 61502- 7412 Jan, Allergic rhinitis due to pollen J30.1 [place] [id number] [place] [address] 00060- 6695 Jan, Allergic rhinitis due to pollen J30.1 [place] [id number] [place] [address] 82233- 4558 Dec, Uncomplicated severe persistent asthma J45.50 [place] [address] 03002- 2611 Dec, Allergic rhinitis due to pollen J30.1 [place] [id number] [place] [address] 14728- 8864 Dec, Allergic rhinitis due to pollen J30.1 [place] [id number] [place] [address] 79842- 8574 Dec, Allergic rhinitis due to pollen J30.1 [place] [id number] [place] [address] 26228- 2062 Dec, ADD (attention deficit disorder) F90.0 [place] [id number] [place] [address] 10912- 8985 Dec, Allergic rhinitis due to pollen J30.1 [place] [id number] [place] [address] 82244- 2681 Dec, Screening for tuberculosis Z11.1 and Visit for TB skin test Z11.1 [place] [id number] [place] [address] 53087- 9079 Dec, Uncomplicated severe persistent asthma J45.50 ; Palpitations R00.2 ; Pericardial effusion (noninflammatory) I31.3 and Chest discomfort R07.89 [place] [address] 88035- 9986 Dec, Allergic rhinitis due to pollen J30.1 [place] [id number] [place] [address] 25369- 7603 Dec, Chronic cough R05 [place] [address] 02459- 5918 Dec, [place] [address] 23601- 4040 Dec, Allergic rhinitis due to pollen J30.1 [place] [address] 77019- 3569 Dec, Allergic rhinitis due to pollen J30.1 [place] [address] 05261- 2000 Dec, Chronic cough R05 [place] [address] 33329- 7338 October, Allergic rhinitis due to pollen J30.1 [place] [id number] [place] [address] 46206- 2276 October, Allergic rhinitis due to pollen J30.1 [place] [id number] [place] [address] 13668- 4789 October, [place] [id number] [place] [address] 50613- 7775 October, Asthma exacerbation J45.901 [place] [address] 49956- 2631 October, Asthma exacerbation J45.901 and Current chronic use of inhaled steroid Z79.51 [place] [id number] [place] [address] 97459- 4178 October, Uncomplicated severe persistent asthma J45.50 [place] [id number] [place] [address] 88465- 9230 October, Allergic rhinitis due to pollen J30.1 [place] [id number] [place] [address] 17771- 1336 Oct, [place] [address] 01781- 9730 Oct, Asthma exacerbation J45.901 and Sputum production R05 [place] [address] 13641- 0027 Oct, Asthma exacerbation J45.901 [place] [address] 96737- 1897 Oct, ADD (attention deficit disorder) F90.0 [place] [address] 17752- 0682 Oct, ADD (attention deficit disorder) F90.0 [place] [address] 68332- 1258 Aug, Allergic rhinitis due to pollen J30.1 [place] [address] 32023- 5679 Aug, Atypical pneumonia J18.9 [place] [id number] [place] [address] 69760- 6883 Aug, Allergic rhinitis due to pollen J30.1 [place] [id number] [place] [address] 26941- 5446 Aug, Acquired hypothyroidism E03.9 [place] [address] 76723- 0934 Aug, Multiple food allergies Z91.018 ; Elevated blood pressure reading R03.0 and Anaphylaxis, subsequent encounter T78.2XXD [address] [address] [id number] Aug, [place] [id number] [place] [address] 12725- 1743 Aug, Anaphylaxis, initial encounter T78.2XXA [place] [address] 23907- 1530 Aug, Allergic rhinitis due to pollen J30.1 [place] [address] 60066- 0500 Aug, Dental examination Z01.20 [place] [address] 80841- 5479 Aug, Allergic rhinitis due to pollen J30.[address] 40170- 3400 Aug, Acquired hypothyroidism E03.9 and Pure hypercholesterolemia E78.[address] 31822- 8595 Aug, ADD (attention deficit disorder) F90.0 ; Acquired hypothyroidism E03.9 and Pure hypercholesterolemia E78.00 [place] [id number] [place] [address] 77369- 9295 Aug, Asthma exacerbation J45.901 [place] [id number] [place] [address] 69023- 0015 Jul, Allergic rhinitis due to pollen J30.1 [place] [id number] [place] [address] 35388- 7444 Jul, Allergic rhinitis due to pollen J30.1 [place] [id number] [place] [address] 73550- 1062 Jul, [place] [address] 58030- 4140 Jul, Allergic rhinitis due to pollen J30.1 [place] [id number] [place] [address] 43094- 3341 Jul, Other residential (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 and ADD ( attention deficit disorder) F90.0 [facility] [id number] [place] [address] 41863- 3364 Jul, Other dean of instruction (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 and ADD ( attention deficit disorder) F90.0 [facility] [id number] [place] [address] 79123- 9742 Jul, [facility] [address] 29377- 1718 Jun, Allergic rhinitis due to pollen J30.1 [facility] [address] 44455- 6637 Jun, Allergic rhinitis due to pollen J30.1 [place] [id number] [place] [address] 16134- 5013 Jun, [place] [address] 27331- 8382 May, Allergic rhinitis due to pollen J30.1 [facility] [id number] [place] [address] 16342- 3175 May, Allergic rhinitis due to pollen J30.1 [facility] [id number] [place] [address] 76304- 6542 Apr, Allergic rhinitis due to pollen J30.1 [place] [id number] [place] [address] 19806- 7958 Apr, Allergic rhinitis due to pollen J30.1 [facility] [id number] [place] [address] 66514- 4569 Apr, Encounter for immunization Z23 [facility] [address] 30564- 9976 Apr, [facility] [id number] [place] [address] 37601- 7208 Mar, Allergic rhinitis due to pollen J30.1 [facility] [id number] [place] [address]- 0364 Mar, Multiple allergies Z88.9 [facility] [id number] [place] [address] 08075- 7467 Mar, Candidal vaginitis B37.3 [facility] [id number] [place] [address] 41176- 5301 08 Mar, 2016 Allergic rhinitis due to pollen J30.1 [facility] [id number] [place] [address] 68258- 8871 Jan, Asthma exacerbation J45.901 ; Fatigue, unspecified type R53.83 and Community acquired pneumonia J18.9 [facility] [id number] [place] [address] [id number] Jan, Encounter for dental examination Z01.20 [facility] [id number] [place] [address] 83256- 5720 Jan, Allergic rhinitis due to pollen J30.1 [facility] [id number] [place] [address] 32307- 3320 Dec, Allergic rhinitis due to pollen J30.1 [facility] [id number] [place] [address] 39019- 3272 Dec, [facility] [id number] [place] [address] 28033- 7266 Dec, Allergic rhinitis due to pollen J30.1 [facility] [id number] [place] [address] 50009- 5502 Dec, [facility] [id number] [place] [address] 87065- 8966 Dec, [facility] [id number] [place] [address] 97280- 4082 Dec, [facility] [id number] [place] [address] 18676- 4815 Dec, Allergic rhinitis due to pollen J30.1 [facility] [address], [place] [address]- 0127 Dec, [facility] [address], [place] [address]- 2641 Dec, [facility] [address], [place] [address]- 3074 Dec, Allergic rhinitis due to pollen J30.1 [facility] [address] [address]- 2397 October, Allergic rhinitis due to pollen J30.1 [facility] [address] [address]- 5801 October, Allergic rhinitis due to pollen J30.1 [facility] [address], [place] [address]- 5499 October, [facility] [id number] [place] [address] 77951- 4012 October, [facility] [address] [place] [address] 95298- 3368 October, ADD (attention deficit disorder) F90.0 ; Major depressive disorder, recurrent episode, mild F33.0 and Uncomplicated severe persistent asthma J45.50 [place] [address] [address]- 4651 Oct, Allergic rhinitis due to pollen J30.1 [facility] [address] [address]- 0040 Oct, ADD (attention deficit disorder) F90.0 [facility] [address], [place] [address]- 3297 Oct, Allergic rhinitis due to pollen 477.0 [facility] [address], [place] [address]- 4847 Aug, Allergic rhinitis due to pollen 477.0 [facility] [address], [place] [address]- 4129 Aug, 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 [facility] [id number] [place] [address] 10465- 9145 Aug, [facility] [id number] [place] [address] 82050- 1163 Aug, Allergic rhinitis due to pollen 477.0 [facility] [id number] [place] [address] 03947- 7823 Aug, Allergic rhinitis due to pollen 477.0 [facility] [id number] [place] [address] 97476- 8120 Aug, Allergic rhinitis due to pollen 477.0 [facility] [id number] [place] [address] 93026- 1085 Aug, Exposure to influenza Z20.828 [facility] [address] [id number] Aug, Encounter for dental examination and cleaning without abnormal findings Z01.20 [facility] [id number] [place] [address] 51492- 7200 Aug, Allergic rhinitis due to pollen J30.1 [facility] [id number] [place] [address] 01436- 4125 Aug, [facility] [id number] [place] [address] 44621- 6807 Aug, 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 [facility] [id number] [place] [address] 02758- 5178 Jul, [facility] [address] 88236- 6432 Jul, Allergic rhinitis due to pollen 477.0 [facility] [id number] [place] [address] 56375- 2997 Jul, [facility] [address] 64188- 0379 Jul, Allergic rhinitis due to pollen 477.0 [place] [address] 96907- 9637 Jun, ADD (attention deficit disorder) F90.0 ; Acquired hypothyroidism E03.9 ; PCOS (polycystic ovarian syndrome) E28.2 ; Polyarthralgia M25.50 and On stimulant medication Z79.899 [place] [address] 43435- 2424 Apr, Encounter for immunization Z23 [place] [address] 86646- 9853 16 Mar, 2015 Allergic rhinitis due to pollen 477.0 [place] [address] 57376- 0068 Mar, Influenza vaccine administered V04.81 [place] [address] 63809- 8802 Mar, [place] [address] 46792- 7748 Jan, Allergic rhinitis due to pollen 477.0 [place] [address] 68656- 1234 Jan, Allergic rhinitis due to pollen 477.0 [place] [address] 26739- 6857 Jan, Allergic rhinitis due to pollen 477.0 [facility] [address] [id number] Jan, Dental examination V72.2 [place] [address] 91859- 5737 Dec, Allergic rhinitis due to pollen 477.0 [place] [address] 81280- 6391 October, [facility] [address] 94897- 2413 14 Oct, 2014 [facility] [place] [facility] [address] [id number] [place] [address]- 6770 Oct, [facility] [place] [facility] [address] [id number] [place] [address]- 7137 Aug, [facility] [place] [facility] [address] [facility] [id number] [place] [address]- 7168 Aug, [facility] [place] [facility] [address] [id number] [place] [address]- 1131 Aug, [facility] [place] [facility] [address] [id number] [place] [address]- 9292 Aug, [facility] [place] [facility] [address] [id number] [place] [address]- 9438 Aug, [facility] [place] [facility] [address] [facility] [id number] [place] [address]- 8592 Aug, [facility] [place] [facility] [address] [id number] [place] [address]- 1799 Aug, [facility] [place] [facility] [address] [id number] [place] [address]- 3319 Aug, [facility] [place] [facility] [address] [facility] [id number] [place] [address]- 0254 Jul, [facility] [place] [facility] [address] [id number], [place] [address]- 2671 Jul, [facility] [place] [facility] [address] [id number], [place] [address]- 2449 Jul, [facility] [place] [facility] [address] [id number] [place] [address]- 8988 Jul, [facility] [place] [facility] [address] [facility] [id number] [place] [address]- 6073 Jul, [facility] [place] [facility] [address] [facility] [id number] [place] [address]- 2539 Jul, [facility] [place] [facility] [address] [id number] [place] [address]- 6223 Jul, [facility] [place] [facility] [address] [id number] [place] [address]- 8240 Jul, [facility] [place] [facility] [address] [id number] [place] [address] Jul, [facility] [place] [facility] [address] [id number] [place] [address] Jul, [facility] [place] [facility] [address] [id number] [place] [address] Jul, [facility] [place] [facility] [address] [id number] [place] [address] Jun, [facility] [place] [facility] [address] [id number] [place] [address] Jun, [facility] [place] [facility] [address] [id number] [place] [address] Jun, [facility] [place] [facility] [address] [id number] [place] [address] Jun, [facility] [place] [facility] [address] [id number] [place] [address] Jun, [facility] [place] [facility] [address] [id number] [place] [address] Jun, [facility] [place] [facility] [address] [id number] [place] [address] May, [facility] [place] [facility] [address] [id number] [place] [address] May, [facility] [place] [facility] [address] [id number] [place] [address] May, [facility] [place] [facility] [address] [id number] [place] [address] May, [facility] [place] [facility] [address] [id number] [place] [address] May, [facility] [place] [facility] [address] [id number] [place] [address] May, [facility] [place] [facility] [address] [id number] [place] [address] Apr, [facility] [place] [facility] [address] [id number] [place] [address] Apr, [facility] [place] [facility] [address] [id number] [place] [address] Mar, [facility] [place] [facility] [address] [id number] [place] [address] Mar, [facility] [place] [facility] [address] [id number] [place] [address] Mar, [facility] [place] [facility] [address] [id number] [place] [address] Mar, [facility] [place] [facility] [address] [id number] [place] [address] 8771 Mar, [facility] [place] [facility] [address] [id number] [place] [address] 9[address] Mar, [facility] [place] [facility] [address] [id number] [place] [address] Jan, [facility] [place] [facility] [address] [id number] [place] [address] 7166 Jan, [facility] [place] [facility] [address] [id number], [place] [address] Jan, [facility] [place] [facility] [address] [id number] [place] [address]- 4698 Jan, [facility] [place] [facility] [address] [id number] [place] [address]- 8469 Jan, [facility] [place] [facility] [address] [id number] [place] [address] 9377 Jan, [facility] [place] [facility] [address] [id number] [place] [address]- 6167 Dec, [facility] [place] [facility] [address] [id number] [place] [address]- 5380 Dec, [facility] [place] [facility] [address] [id number] [place] [address]- 0915 Dec, [facility] [place] [facility] [address] [id number] [place] [address]- 8359 Dec, [facility] [place] [facility] [address] [id number] [place] [address]- 7019 Dec, [facility] [place] [facility] [address] [id number] [place] [address]- 5198 Dec, [facility] [place] [facility] [address] [id number] [place] [address]- 7335 Dec, [facility] [place] [facility] [address] [id number] [place] [address]- 4957 Dec, [facility] [place] [facility] [address] [id number] [place] [address]- 6114 Dec, [facility] [place] [facility] [address] [id number] [place] [address]- 9814 Dec, [facility] [place] [facility] [address] [id number] [place] [address]- 8544 Dec, [facility] [place] [facility] [address] [id number] [place] [address]- 6356 Dec, [facility] [place] [facility] [address] [id number] [place] [address]- 5872 Dec, [facility] [place] [facility] [address] [id number] [place] [address]- 6945 Dec, [facility] [place] [facility] [address] [id number] [place] [address]- 3883 Dec, [facility] [place] [facility] [address] [id number] [place] [address]- 8229 Dec, [facility] [place] [facility] [address] [id number] [place] [address]- 6733 October, [facility] [place] [facility] [address] [id number] [place] [address]- 8588 October, [facility] [place] [facility] [address] [id number] [place] [address]- 7940 October, [facility] [place] [facility] [address] [id number] [place] [address]- 4794 October, [facility] [place] [facility] [address] [id number] [place] [address]- 1144 October, [facility] [place] [facility] [address] [id number] [place] [address]- 7940 October, [facility] [place] [facility] [address] [id number] [place] [address]- 8366 Oct, [facility] [place] [facility] [address] [id number] [place] [address] 5301 Oct, [facility] [place] [facility] [address] [id number] [place] [address]- 3904 Oct, [facility] [place] [facility] [address] [id number] [place] [address]- 0741 Oct, [facility] [place] [facility] [address] [id number] [place] [address]- 5198 Oct, [facility] [place] [facility] [address] [id number] [place] [address]- 7329 Oct, [facility] [place] [facility] [address] [id number] [place] [address]- 8890 Aug, [facility] [place] [facility] [address] [id number] [place] [address]- 3776 Aug, [facility] [place] [facility] [address] [id number] [place] [address]- 6654 Aug, [facility] [place] [facility] [address] [id number] [place] [address]- 2546 Aug, [facility] [address] [id number] [place] [address]- 3740 Jul, [facility] [place] [facility] [address] [id number] [place] [address]- 9885 Jul, [facility] [address] [id number] [place] [address]- 1458 Jul, [facility] [place] [facility] [address] [id number] [place] [address]- 4900 Jul, [facility] [address] [id number] [place] [address]- 8525 Jun, [facility] [place] [facility] [address] [id number] [place] [address]- 7297 Jun, [facility] [address] [id number] [place] [address]- 6810 Jun, [facility] [place] [facility] [address] [id number] [place] [address]- 4802 Jun, [facility] [address] [id number] [place] [address]- 2834 Jun, [facility] [place] [facility] [address] [id number] [place] [address]- 6756 Jun, [facility] [place] [facility] [address] [id number] [place] [address]- 3352 Jun, [facility] [place] [facility] [address] [id number], [place] [address]- 0865 Jun, [facility] [place] [facility] [address] [id number] [place] [address] Jun, [facility] [place] [facility] [address] [id number] [place] [address] Jun, [facility] [place] [facility] [address] [id number] [place] [address] Jun, [facility] [place] [facility] [address] [id number] [place] [address]- 8518 May, [facility] [place] [facility] [address] [id number] [place] [address]- 6864 May, [facility] [place] [facility] [address] [id number] [place] [address]- 7326 May, [facility] [place] [facility] [address] [id number] [place] [address]- 4124 May, [facility] [place] [facility] [address] [id number] [place] [address]- 8132 May, [facility] [place] [facility] [address] [id number] [place] [address]- 8731 May, [facility] [place] [facility] [address] [id number] [place] [address]- 8328 May, [facility] [place] [facility] [address] [id number] [place] [address]- 5060 Apr, [facility] [place] [facility] [address] [id number] [place] [address]- 5116 30 Apr, 2013 [facility] [place] [facility] [address] [id number] [place] [address]- 1337 18 Apr, 2013 [facility] [place] [facility] [address] [id number] [place] [address]- 0833 Apr, [facility] [place] [facility] [address] [id number] [place] [address]- 254 27 Mar, 2012 [facility] [place] [facility] [address] [id number] [place] [address]- 2543 26 Mar, 2012 [facility] [place] [facility] [address] [id number] [place] [address] 2549 26 Mar, 2012 [facility] [place] [facility] [address] [id number] [place] [address]- 2541 23 Mar, 2012 [facility] [place] [facility] [address] [id number] [place] [address]- 2432 Mar, [facility] [place] [facility] [address] [id number] [place] [address]- 5928 Mar, [facility] [place] [facility] [address] [id number] [place] [address]- 5449 Jan, [facility] [place] [facility] [address] [id number] [place] [address]- 6018 Jan, [facility] [place] [facility] [address] [id number] [place] [address]- 4456 Jan, [facility] [place] [facility] [address] [id number] [place] [address]- 4325 Jan, [facility] [place] [facility] [address] [id number] [place] [address]- 1809 Jan, [facility] [place] [facility] [address] [id number] [place] [address]- 5118 Dec, [facility] [place] [facility] [address] [id number] [place] [address]- 3132 Dec, [facility] [place] [facility] [address] [id number] [place] [address]- 1436 Dec, [facility] [place] [facility] [address] [id number] [place] [address]- 7001 Dec, [facility] [place] [facility] [address] [id number] [place] [address]- 2364 Dec, [facility] [place] [facility] [address] [id number] [place] [address]- 0313 Dec, [facility] [place] [facility] [address] [id number] [place] [address]- 9736 Dec, [facility] [place] [facility] [address] [id number] [place] [address]- 2148 Dec, [facility] [place] [facility] [address] [id number] [place] [address]- 1048 October, [facility] [place] [facility] [address] [id number] [place] [address]- 3429 October, [facility] [address] [id number] [place] [address]- 7922 October, [facility] [place] [facility] [address] [id number] [place] [address]- 7420 Oct, [facility] [address] [id number] [place] [address]- 5356 Oct, [facility] [place] [facility] [address] [id number] [place] [address]- 8586 Oct, [facility] [address] [id number] [place] [address]- 4184 Oct, [facility] [place] [facility] [address] [id number] [place] [address]- 7017 Aug, [facility] [address] [id number] [place] [address]- 0643 Aug, [facility] [place] [facility] [address] [id number] [place] [address]- 7938 Aug, [facility] [address] [id number] [place] [address]- 0993 Jul, [facility] [address] [facility] [id number] [place] [address]- 7159 May, [facility] [address] [id number] [place] [address]- 0416 May, [facility] [place] [facility] [address] [id number], [place] [address]- 3128 Apr, [facility] [place] [facility] [address] [id number] [place] [address]- 2683 Apr, [facility] [place] [facility] [address] [facility] [id number] [place] [address]- 6871 Apr, [facility] [place] [facility] [address] [id number] [place] [address]153 Apr, [facility] [place] [facility] [address] [id number] [place] [address]- 6454 Apr, [facility] [place] [facility] [address] [id number] [place] [address]- 8871 Apr, [facility] [place] [facility] [address] [id number] [place] [address]- 9154 Apr, [facility] [place] [facility] [address] [id number] [place] [address]- 2472 Apr, [facility] [place] [facility] [address] [id number] [place] [address]- 9494 Apr, [facility] [place] [facility] [address] [id number] [place] [address]- 9506 Apr, [facility] [place] [facility] [address] [id number] [place] [address]- 4116 Apr, [facility] [place] [facility] [address] [id number] [place] [address]- 4817 Apr, [facility] [place] [facility] [address] [id number] [place] [address]- 8442 Mar, [facility] [place] [facility] [address] [id number] [place] [address]- 0330 Jan, [facility] [place] [facility] [address] [id number] [place] [address]- 8308 Dec, [facility] [place] [facility] [address] [id number] [place] [address]- 4312 October, [facility] [place] [facility] [address] [id number] [place] [address]- 7995 Oct, [facility] [place] [facility] [address] [id number] [place] [address]- 2922 Oct, [facility] [place] [facility] [address] [id number] [place] [address]- 3628 Oct, [facility] [place] [facility] [address] [id number] [place] [address]- 4365 Aug, [facility] [id number], [place] [address]- 6266 Aug, [facility] [id number] [place] [address]- 7646 Aug, [facility] [id number], [place] [address] 2546 Aug, [facility] [id number] [place] [address]- 7116 Aug, [facility] [id number] [place] [address] 38746- 5116 Aug, [facility] [id number] [place] [address] 37475- 5826 Jun, [facility] [id number] [place] [address] 13598- 4426 Apr, [facility] [id number] [place] [address] 399523- 0861 Jun, [facility] [id number] [place] [address] 91806- 3752 Jun, [facility] [id number], [place] [address]- 1208 May, [facility] [id number], [place] [address]- 7665 May, [facility] [id number] [address]132 Apr, [facility] [id number], [place] [address]- 3017 Apr, IMMUNIZATIONS No Known Immunizations SOCIAL HISTORY Never Assessed REASON FOR VISIT Allergy injection(s) patricia keith PLAN OF CARE Activity Details Follow Up 1 Week Reason: VITAL SIGNS MEDICATIONS Unknown Medications RESULTS No Results PROCEDURES Procedure Date Ordered Result Body Site IMMUNOTHERAPY, 2 OR MORE INJECTIONS 2017-10-25 N/A IMMUNOTHERAPY INJECTIONS October 25, 2017 INSTRUCTIONS MEDICATIONS ADMINISTERED No Known Medications [...] see above surgeries Hospitalization History Anaphylactic shock-[facility] 08/23/16
[2018-07-18 07:25] VITALS: BP 134/93
--- OUTSIDE RECORDS SUMMARY | 2018-07-18 07:25 | XMS REPORT ---
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 Name Role Phone BRANDYTEZ HOYTHANY Unavailable PROBLEMS Type Condition ICD9-CM Code DQU63-VZ Code Onset Dates Condition Status SNOMED Code Problem Migraine with aura and without status migrainosus, not intractable G43.109 Active 2369215 Problem PCOS (polycystic ovarian syndrome) E28.2 Active 08491369 Problem Uncomplicated severe persistent asthma J45.50 Active 143543737 Problem Severe persistent asthma with exacerbation J45.51 Active 656535703 Problem Other elevated white blood cell (WBC) count D72.828 Active 349686854 Problem Multiple food allergies Z91.018 Active 108058443 Problem Pure hypercholesterolemia E78.00 Active 892024198 Problem Current chronic use of inhaled steroid Z79.51 Active 748465804 Problem Asthma exacerbation J45.901 Active 050592403 Problem ADD (attention deficit disorder) F90.0 Active 575995904 Problem Allergic rhinitis due to pollen J30.1 Active 26678772 Problem Vitamin D deficiency E55.9 Active 99660390 Problem Major depressive disorder, recurrent episode, mild F33.0 Active 059267097 Problem Acquired hypothyroidism E03.9 Active 457364814 Problem Gastroesophageal reflux disease without esophagitis K21.9 Active 778383451 ALLERGIES No Information ENCOUNTERS Encounter Location Date Diagnosis [facility] [address] [address] Dec, Allergic rhinitis due to pollen J30.1 [facility] [address], [place] [address] Dec, [facility] [address], [place] [address] Dec, Allergic rhinitis due to pollen J30.1 [facility] [id number] [place] [address] 55030- 4091 Dec, ADD (attention deficit disorder) F90.0 [facility] [address] [address]28- 3791 Dec, ADD (attention deficit disorder) F90.0 and Uncomplicated severe persistent asthma J45.50 [facility] [id number] [place] [address] 47661- 3000 Dec, Allergic rhinitis due to pollen J30.1 [facility] [id number] [place] [address] 01887- 5980 Dec, [place] [address] 21154- 7896 October, Allergic rhinitis due to pollen J30.1 [facility] [id number] [place] [address] 16719- 5207 October, Allergic rhinitis due to pollen J30.1 [facility] [id number] [place] [address] 88339- 3770 Oct, [facility] [id number] [place] [address] 52928- 6387 Oct, Allergic rhinitis due to pollen J30.1 [facility] [id number] [place] [address] 36913- 6086 Oct, [facility] [id number] [place] [address] 90004- 9319 Oct, Allergic rhinitis due to pollen J30.1 [facility] [id number] [place] [address] 91175- 6969 Oct, Severe persistent asthma with exacerbation J45.51 and Pneumonia due to Haemophilus influenzae, unspecified laterality, unspecified part of lung J14 [facility] [id number] [place] [address] 82996- 4903 Oct, ADD (attention deficit disorder) F90.0 [facility] [address] [place] [address] Aug, Haemophilus influenzae infection A49.2 [place] [id number] [place] [address] 05413- 2586 Aug, Cough productive of purulent sputum R05 [facility] [id number] [place] [address] 18162- 0100 Aug, [facility] [facility] [address] 39921- 5673 Aug, Pulmonary congestion R09.89 [place] [facility] [address] 04321- 1460 Aug, Severe persistent asthma with exacerbation J45.51 ; Hiatal hernia K44.9 and Gastroesophageal reflux disease without esophagitis K21.9 [facility] [facility] [id number] [place] [address] 40380- 5311 Aug, Other elevated white blood cell (WBC) count D72.828 [facility] [id number] [place] [address] 78370- 8460 Aug, Uncomplicated severe persistent asthma J45.50 [facility] [address] 42513- 4051 Aug, Pure hypercholesterolemia E78.00 ; Uncomplicated severe persistent asthma J45.50 and Acquired hypothyroidism E03.9 [facility] [id number] [place] [address] 00467- 9390 Aug, Acquired hypothyroidism E03.9 ; Pure hypercholesterolemia E78.00 and Uncomplicated severe persistent asthma J45.50 [facility] [id number] [place] [address] 32877- 8220 15 Aug, 2017 Allergic rhinitis due to pollen J30.1 [facility] [id number] [place] [address] 55799- 2571 08 Aug, 2017 Allergic rhinitis due to pollen J30.1 [place] [address] 89535- 7839 Aug, [facility] [id number] [place] [address] [id number] Jul, Pharyngitis, unspecified etiology J02.9 and Lymphadenopathy R59.1 [place] [address] 87414- 2832 Jul, ADD (attention deficit disorder) F90.0 [facility] [address] 24307- 8250 Jul, Allergic rhinitis due to pollen J30.1 [facility] [facility] [address] 09292- 9029 Jul, Dental examination Z01.20 [facility] [address] 40388- 6552 Jun, Cough productive of purulent sputum R05 [place] [address] 25895- 8694 Jun, Allergic rhinitis due to pollen J30.1 [place] [address] 91264- 3473 Jun, [place] [facility] [address] 56739- 8565 Jun, Allergic rhinitis due to pollen J30.1 [facility] [id number] [place] [address] 15236- 9294 Jun, Allergic rhinitis due to pollen J30.1 [facility] [id number] [place] [address] 16287- 9923 May, Allergic rhinitis due to pollen J30.1 [facility] [address] 57952- 5146 May, Pneumonia due to Haemophilus influenzae, unspecified laterality, unspecified part of lung J14 [place] [address] 03114- 9877 May, Allergic rhinitis due to pollen J30.1 [facility] [address] [place] [address] 84309- 8569 May, Other adverse food reactions, not elsewhere classified, initial encounter T78.1XXA and Pneumonia due to Haemophilus influenzae, unspecified laterality, unspecified part of lung J14 [facility] [facility] [id number] [place] [address] 97622- 3183 13 May, 2017 Pneumonia due to Haemophilus influenzae, unspecified laterality, unspecified part of lung J14 [facility] [facility] [id number] [place] [address] 87549- 0287 10 May, 2017 Multiple food allergies Z91.018 ; Uncomplicated severe persistent asthma J45.50 ; Cough productive of purulent sputum R05 and Uses central nervous system stimulants F15.90 [place] [address] 72386- 6925 Apr, Allergic rhinitis due to pollen J30.1 [facility] [id number] [place] [address] 22128- 2265 Apr, Allergic rhinitis due to pollen J30.1 [facility] [id number] [place] [address] 07401- 8893 Apr, Allergic rhinitis due to pollen J30.1 [facility] [id number] [place] [address] 37086- 6317 Apr, ADD (attention deficit disorder) F90.0 [facility] [id number] [place] [address] 90808- 8564 28 Mar, 2017 Allergic rhinitis due to pollen J30.1 [facility] [id number] [place] [address] 57474- 0094 21 Mar, 2017 Encounter for immunization Z23 [facility] [id number] [place] [address] 59996- 5259 19 Mar, 2017 [facility] [id number] [place] [address] 80201- 7898 14 Mar, 2017 Allergic rhinitis due to pollen J30.1 [place] [address] [place] [address] 72581- 4813 Mar, Allergic rhinitis due to pollen J30.1 [facility] [id number] [place] [address] 58049- 0119 Jan, Allergic rhinitis due to pollen J30.1 [facility] [id number] [place] [address] 44499- 2177 Jan, Allergic rhinitis due to pollen J30.1 [facility] [id number] [place] [address] 29489- 9149 Dec, Uncomplicated severe persistent asthma J45.50 [facility] [id number] [place] [address] 70670- 2714 Dec, Allergic rhinitis due to pollen J30.1 [facility] [id number] [place] [address] 45349- 0529 Dec, Allergic rhinitis due to pollen J30.1 [facility] [id number] [place] [address] 67792- 9122 Dec, Allergic rhinitis due to pollen J30.1 [facility] [id number] [place] [address] 64187- 1092 Dec, ADD (attention deficit disorder) F90.0 [place] [id number] [place] [address] 04633- 0237 Dec, Allergic rhinitis due to pollen J30.1 [facility] [id number] [place] [address] 38391- 7343 Dec, Visit for TB skin test Z11.1 and Screening for tuberculosis Z11.1 [place] [id number] [place] [address] 75123- 3335 Dec, Uncomplicated severe persistent asthma J45.50 ; Palpitations R00.2 ; Pericardial effusion (noninflammatory) I31.3 and Chest discomfort R07.89 [facility] [address], [place] [address]- 7310 Dec, Allergic rhinitis due to pollen J30.1 [facility] [id number] [place] [address] 02888- 0142 Dec, Chronic cough R05 [facility] [id number] [place] [address] 91817- 8014 Dec, [facility] [id number] [place] [address] 89757- 5651 Dec, Allergic rhinitis due to pollen J30.1 [facility] [id number] [place] [address] 64405- 7053 Dec, Allergic rhinitis due to pollen J30.1 [facility] [id number] [place] [address] 21813- 8355 Dec, Chronic cough R05 [facility] [id number] [place] [address] 40400- 2677 October, Allergic rhinitis due to pollen J30.1 [facility] [id number] [place] [address] 65400- 6184 October, Allergic rhinitis due to pollen J30.1 [facility] [address] [place] [address] 32686- 3558 October, [facility] [id number] [place] [address] 30854- 2898 October, Asthma exacerbation J45.901 [facility] [id number] [place] [address] 65336- 7711 October, Asthma exacerbation J45.901 and Current chronic use of inhaled steroid Z79.51 [facility] [id number] [place] [address] 18261- 9024 October, Uncomplicated severe persistent asthma J45.50 [facility] [id number] [place] [address] 92316- 8693 October, Allergic rhinitis due to pollen J30.1 [place] [id number] [place] [address] 36213- 7586 Oct, [place] [facility] [address] 63111- 4033 Oct, Asthma exacerbation J45.901 and Sputum production R05 [place] [address] 82171- 4195 Oct, Asthma exacerbation J45.901 [place] [address] 38118- 1503 Oct, ADD (attention deficit disorder) F90.0 [facility] [address] 54475- 9551 Oct, ADD (attention deficit disorder) F90.0 [place] [facility] [address] 23686- 2068 Aug, Allergic rhinitis due to pollen J30.1 [facility] [id number] [place] [address] 30933- 7526 Aug, Atypical pneumonia J18.9 [facility] [address] 46654- 6785 Aug, Allergic rhinitis due to pollen J30.1 [facility] [id number] [place] [address] 18313- 5127 Aug, Acquired hypothyroidism E03.9 [place] [address] 77929- 8980 Aug, Multiple food allergies Z91.018 ; Elevated blood pressure reading R03.0 and Anaphylaxis, subsequent encounter T78.2XXD [place] [address] [id number] Aug, [place] [address] 27219- 2272 Aug, Anaphylaxis, initial encounter T78.2XXA [facility] [facility] [id number] [place] [address] 34614- 9090 16 Aug, 2016 Allergic rhinitis due to pollen J30.1 [facility] [id number] [place] [address] 99767- 0514 16 Aug, 2016 Dental examination Z01.20 [facility] [id number] [place] [address] 88924- 7435 09 Aug, 2016 Allergic rhinitis due to pollen J30.1 [facility] [id number] [place] [address] 04046- 1309 06 Aug, 2016 Acquired hypothyroidism E03.9 and Pure hypercholesterolemia E78.00 [place] [address] 99239- 2481 Aug, ADD (attention deficit disorder) F90.0 ; Acquired hypothyroidism E03.9 and Pure hypercholesterolemia E78.00 [facility] [id number] [place] [address] 72972- 9753 Aug, Asthma exacerbation J45.901 [facility] [id number] [place] [address] 09561- 7025 Jul, Allergic rhinitis due to pollen J30.1 [facility] [id number] [place] [address] 79191- 2495 Jul, Allergic rhinitis due to pollen J30.1 [facility] [id number] [place] [address] 70244- 6812 Jul, [facility] [id number] [place] [address] 55827- 1306 Jul, Allergic rhinitis due to pollen J30.1 [facility] [id number] [place] [address] 74502- 5140 Jul, 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 and ADD ( attention deficit disorder) F90.0 [place] [address] 76018- 8265 Jul, 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 and ADD ( attention deficit disorder) F90.0 [facility] [id number] [place] [address] 90387- 0866 Jul, [facility] [id number] [place] [address] 12116- 8542 Jun, Allergic rhinitis due to pollen J30.1 [facility] [address] 23759- 7228 Jun, Allergic rhinitis due to pollen J30.1 [facility] [id number] [place] [address] 84150- 7825 Jun, [place] [address] 77182- 7529 May, Allergic rhinitis due to pollen J30.1 [place] [address] 23051- 4665 May, Allergic rhinitis due to pollen J30.1 [facility] [id number] [place] [address] 17223- 9421 Apr, Allergic rhinitis due to pollen J30.1 [facility] [address] 69203- 0665 Apr, Allergic rhinitis due to pollen J30.1 [place] [address] 83183- 7425 Apr, Encounter for immunization Z23 [facility] [id number] [place] [address] 87238- 2792 Apr, [facility] [address] 34070- 2815 Mar, Allergic rhinitis due to pollen J30.1 [place] [id number] [place] [address] 25621- 1648 Mar, Multiple allergies Z88.9 [facility] [address] [place] [address]- 2129 Mar, Candidal vaginitis B37.3 [facility] [id number] [place] [address] 86221- 5898 Mar, Allergic rhinitis due to pollen J30.1 [facility] [address] [place] [address] 50233- 7521 Jan, Asthma exacerbation J45.901 ; Fatigue, unspecified type R53.83 and Community acquired pneumonia J18.9 [facility] [address] [place] [address] [id number] Jan, Encounter for dental examination Z01.20 [facility] [id number] [place] [address] 36692- 4198 Jan, Allergic rhinitis due to pollen J30.1 [facility] [id number] [place] [address] 05095- 3224 Dec, Allergic rhinitis due to pollen J30.1 [facility] [id number] [place] [address] 35526- 8665 Dec, [facility] [id number] [place] [address] 55540- 4282 Dec, Allergic rhinitis due to pollen J30.1 [facility] [id number] [place] [address] 05829- 0044 Dec, [facility] [id number] [place] [address] 36024- 2310 Dec, [facility] [id number] [place] [address] 50490- 1508 Dec, [facility] [id number] [place] [address] 57005- 7155 Dec, Allergic rhinitis due to pollen J30.1 [facility] [id number] [place] [address] 69764- 5582 Dec, [facility] [address] [address]- 8439 Dec, [facility] [id number] [place] [address] 75754- 0163 Dec, Allergic rhinitis due to pollen J30.1 [facility] [id number] [place] [address] 31527- 9636 October, Allergic rhinitis due to pollen J30.1 [facility] [id number] [place] [address] 91838- 4969 October, Allergic rhinitis due to pollen J30.1 [place] [id number] [place] [address] 51355- 2095 October, [place] [id number] [place] [address] 22491- 6716 October, [place] [id number] [place] [address] 37321- 3533 October, ADD (attention deficit disorder) F90.0 ; Major depressive disorder, recurrent episode, mild F33.0 and Uncomplicated severe persistent asthma J45.50 [place] [id number] [place] [address] 67866- 3014 Oct, Allergic rhinitis due to pollen J30.1 [place] [address] [place] [address] 93292- 2017 Oct, ADD (attention deficit disorder) F90.0 [place] [address] [place] [address] 38196- 3419 Oct, Allergic rhinitis due to pollen 477.0 [place] [id number] [place] [address] 99145- 3964 Aug, Allergic rhinitis due to pollen 477.0 [place] [id number] [place] [address] 89304- 0064 Aug, 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 [place] [id number] [place] [address] 58123- 5613 Aug, [facility] [address] [place] [address] 46849- 9194 Aug, Allergic rhinitis due to pollen 477.0 [facility] [id number] [place] [address] 813033- 8274 Aug, Allergic rhinitis due to pollen 477.0 [facility] [id number] [place] [address] 70071- 9017 Aug, Allergic rhinitis due to pollen 477.0 [facility] [id number] [place] [address] 40462- 7874 Aug, Exposure to influenza Z20.828 [facility] [id number] [place] [address] [id number] Aug, Encounter for dental examination and cleaning without abnormal findings Z01.20 [place] [id number] [place] [address] 08109- 4772 Aug, Allergic rhinitis due to pollen J30.1 [place] [id number] [place] [address] 28080- 5274 Aug, [place] [id number] [place] [address] 71514- 1857 Aug, 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 [place] [id number] [place] [address] 01161- 6499 Jul, [facility] [id number] [place] [address] 03824- 8782 Jul, Allergic rhinitis due to pollen 477.0 [place] [id number] [place] [address] 30702- 3492 Jul, [facility] [id number] [place] [address] 17219- 5384 Jul, Allergic rhinitis due to pollen 477.0 [facility] [id number] [place] [address] 06377- 8684 Jun, ADD (attention deficit disorder) F90.0 ; Acquired hypothyroidism E03.9 ; PCOS (polycystic ovarian syndrome) E28.2 ; Polyarthralgia M25.50 and On stimulant medication Z79.899 [place] [address] 53645- 9844 16 Apr, 2015 Encounter for immunization Z23 [place] [address] 32526- 8693 16 Mar, 2015 Allergic rhinitis due to pollen 477.0 [place] [address] 37792- 8116 Mar, Influenza vaccine administered V04.81 [place] [address] 96392- 2826 Mar, [place] [address] 39955- 2500 Jan, Allergic rhinitis due to pollen 477.0 [place] [address] 16475- 7518 Jan, Allergic rhinitis due to pollen 477.0 [place] [address] 29170- 7793 Jan, Allergic rhinitis due to pollen 477.0 [facility] [address] [id number] Jan, Dental examination V72.2 [place] [address] 27657- 1265 Dec, Allergic rhinitis due to pollen 477.0 [place] [address] 23769- 5293 October, [place] [address] 02928- 8300 Oct, [place] [address] 11981- 0580 Oct, [facility] [place] [facility] [address] [id number] [place] [address]- 0279 Aug, [facility] [place] [facility] [address] [id number] [place] [address]- 8587 Aug, [facility] [place] [facility] [address] [id number] [place] [address] Aug, [facility] [place] [facility] [address] [id number] [place] [address] Aug, [facility] [place] [facility] [address] [id number] [place] [address] Aug, [facility] [place] [facility] [address] [id number] [place] [address] Aug, [facility] [place] [facility] [address] [id number] [place] [address] Aug, [facility] [place] [facility] [address] [id number] [place] [address] Aug, [facility] [place] [facility] [address] [id number] [place] [address] Jul, [facility] [place] [facility] [address] [id number] [place] [address] Jul, [facility] [place] [facility] [address] [id number] [place] [address] Jul, [facility] [place] [facility] [address] [id number] [place] [address] Jul, [facility] [place] [facility] [address] [id number] [place] [address] Jul, [facility] [place] [facility] [address] [id number] [place] [address] Jul, [facility] [place] [facility] [address] [id number] [place] [address] Jul, [facility] [place] [facility] [address] [id number] [place] [address] Jul, [facility] [place] [facility] [address] [id number] [place] [address] Jul, [facility] [place] [facility] [address] [id number] [place] [address] Jul, [facility] [place] [facility] [address] [id number] [place] [address] Jul, [facility] [place] [facility] [address] [id number] [place] [address] Jun, [facility] [place] [facility] [address] [id number] [place] [address] Jun, [facility] [place] [facility] [address] [id number] [place] [address] Jun, [facility] [place] [facility] [address] [id number] [place] [address] Jun, [facility] [place] [facility] [address] [id number] [place] [address] Jun, [facility] [place] [facility] [address] [id number] [place] [address] Jun, [facility] [place] [facility] [address] [id number] [place] [address] May, [facility] [place] [facility] [address] [id number] [place] [address] May, [facility] [place] [facility] [address] [id number], [place] [address] May, [facility] [place] [facility] [address] [id number] [place] [address] May, [facility] [place] [facility] [address] [id number] [place] [address]- 2623 May, [facility] [place] [facility] [address] [id number] [place] [address]- 6970 May, [facility] [place] [facility] [address] [id number] [place] [address] Apr, [facility] [place] [facility] [address] [id number] [place] [address]- 6826 Apr, [facility] [place] [facility] [address] [id number] [place] [address] 2546 Mar, [facility] [place] [facility] [address] [id number] [place] [address] 2546 Mar, [facility] [place] [facility] [address] [id number] [place] [address] 2547 Mar, [facility] [place] [facility] [address] [id number] [place] [address]- [address] Mar, [facility] [place] [facility] [address] [id number] [place] [address]- 5797 Mar, [facility] [place] [facility] [address] [id number] [place] [address]- 64[address] Mar, [facility] [place] [facility] [address] [id number] [place] [address]- 04[address] Jan, [facility] [place] [facility] [address] [id number] [place] [address]- 0442 Jan, [facility] [place] [facility] [address] [id number] [place] [address] 1958 Jan, [facility] [place] [facility] [address] [id number] [place] [address]- 2320 Jan, [facility] [place] [facility] [address] [id number] [place] [address]- 295[address] Jan, [facility] [place] [facility] [address] [id number] [place] [address]- 2546 Jan, [facility] [place] [facility] [address] [id number] [place] [address]- 4825 Dec, [facility] [place] [facility] [address] [id number] [place] [address]- 4601 Dec, [facility] [place] [facility] [address] [id number] [place] [address]- 8623 Dec, [facility] [place] [facility] [address] [id number] [place] [address]- 5700 Dec, [facility] [place] [facility] [address] [id number] [place] [address]- 7751 Dec, [facility] [place] [facility] [address] [id number] [place] [address]- 0646 Dec, [facility] [place] [facility] [address] [id number] [place] [address]- 5151 Dec, [facility] [place] [facility] [address] [id number] [place] [address]- 5677 Dec, [facility] [place] [facility] [address] [id number] [place] [address]- 7952 Dec, [facility] [place] [facility] [address] [id number] [place] [address]- 0335 Dec, [facility] [place] [facility] [address] [id number] [place] [address]- 1213 Dec, [facility] [place] [facility] [address] [id number] [place] [address]- 3055 Dec, [facility] [place] [facility] [address] [id number], [place] [address] 120[address] Dec, [facility] [place] [facility] [address] [id number], [place] [address] Dec, [facility] [place] [facility] [address] [id number] [place] [address]- 6625 Dec, [facility] [place] [facility] [address] [id number] [place] [address]- 6631 Dec, [facility] [place] [facility] [address] [id number] [place] [address]- 9226 October, [facility] [place] [facility] [address] [id number] [place] [address] 7[address] October, [facility] [address] [id number] [place] [address]- 0099 October, [facility] [place] [facility] [address] [id number] [place] [address]- 8456 October, [facility] [address] [id number] [place] [address]- 5497 October, [facility] [place] [facility] [address] [id number] [place] [address]- 7240 October, [facility] [place] [facility] [address] [id number] [place] [address]- 9763 Oct, [facility] [place] [facility] [address] [id number] [place] [address]- 8[address] Oct, [facility] [place] [facility] [address] [id number] [place] [address]- 1087 Oct, [facility] [place] [facility] [address] [id number] [place] [address]- 1343 Oct, [facility] [place] [facility] [address] [id number] [place] [address]- 7607 Oct, [facility] [address] [id number] [place] [address]- 6021 Oct, [facility] [place] [facility] [address] [id number] [place] [address]- 9035 Aug, [facility] [place] [facility] [address] [id number] [place] [address]- 0598 Aug, [facility] [place] [facility] [address] [id number] [place] [address]- 9496 Aug, [facility] [place] [facility] [address] [id number] [place] [address]- 3126 Aug, [facility] [place] [facility] [address] [id number] [place] [address] Jul, [facility] [address] [id number] [place] [address]- 54[address] Jul, [facility] [place] [facility] [address] [id number] [place] [address]- 6247 Jul, [facility] [place] [facility] [address] [id number] [place] [address]- 8527 Jul, [facility] [place] [facility] [address] [id number] [place] [address]- 6062 Jun, [facility] [address] [id number] [place] [address]- 5378 Jun, [facility] [place] [facility] [address] [id number] [place] [address]- 4080 Jun, [facility] [place] [facility] [address] [id number] [place] [address]- 2828 Jun, [facility] [address] [id number] [place] [address]- 4607 Jun, [facility] [place] [facility] [address] [id number] [place] [address]- 4098 Jun, [facility] [place] [facility] [address] [id number] [place] [address]- 7083 Jun, [facility] [place] [facility] [address] [id number], [place] [address]- 9835 Jun, [facility] [place] [facility] [address] [id number], [place] [address]- [address] Jun, [facility] [place] [facility] [address] [id number] [place] [address]- 2438 Jun, [facility] [place] [facility] [address] [id number] [place] [address]- 1116 Jun, [facility] [place] [facility] [address] [id number], [place] [address]- 9976 May, [facility] [place] [facility] [address] [id number], [place] [address]- 7158 May, [facility] [place] [facility] [address] [id number] [place] [address]- 6689 May, [facility] [place] [facility] [address] [id number] [place] [address]- 7557 May, [facility] [place] [facility] [address] [facility] [id number] [place] [address]- 9040 May, [facility] [place] [facility] [address] [id number] [place] [address]- 8086 May, [facility] [place] [facility] [address] [id number] [place] [address]- 3860 May, [facility] [place] [facility] [address] [id number] [place] [address]- 2937 Apr, [facility] [place] [facility] [address] [facility] [id number] [place] [address]- 6764 Apr, [facility] [place] [facility] [address] [id number] [place] [address]- 8057 18 Apr, 2013 [facility] [place] [facility] [address] [facility] [id number] [place] [address]- 3580 Apr, [facility] [place] [facility] [address] [facility] [id number] [place] [address]- 9491 27 Mar, 2013 [facility] [place] [facility] [address] [id number] [place] [address] 2542 26 Mar, 2012 [facility] [place] [facility] [address] [id number], [place] [address]- [address]48 26 Mar, 2012 [facility] [place] [facility] [address] [id number] [place] [address]- 3719 23 Sep, 2012 [facility] [place] [facility] [address] [facility] [id number] [place] [address]- 6490 04 Sep, 2012 [facility] [place] [facility] [address] [facility] [id number] [place] [address]- 3102 03 Sep, 2012 [facility] [place] [facility] [address] [id number] [place] [address]- 1111 Jan, [facility] [place] [facility] [address] [id number] [place] [address]- 9809 Jan, [facility] [place] [facility] [address] [id number] [place] [address]- 7845 Jan, [facility] [place] [facility] [address] [id number] [place] [address]- 6261 Jan, [facility] [place] [facility] [address] [id number] [place] [address]- 4332 Jan, [facility] [place] [facility] [address] [id number] [place] [address]- 1226 Dec, [facility] [place] [facility] [address] [id number] [place] [address]- 6700 Dec, [facility] [place] [facility] [address] [id number] [place] [address]- 3239 Dec, [facility] [place] [facility] [address] [id number] [place] [address]- 8710 Dec, [facility] [place] [facility] [address] [id number] [place] [address]- 0108 Dec, [facility] [place] [facility] [address] [id number] [place] [address]- 3840 Dec, [facility] [place] [facility] [address] [id number] [place] [address]- 5432 Dec, [facility] [place] [facility] [address] [id number] [place] [address]- 0548 Dec, [facility] [place] [facility] [address] [id number] [place] [address]- 8163 October, [facility] [place] [facility] [address] [id number] [place] [address]- 0149 October, [facility] [place] [facility] [address] [id number] [place] [address]- 6078 October, [facility] [place] [facility] [address] [id number] [place] [address]- 5217 Oct, [facility] [place] [facility] [address] [id number] [place] [address]- 0419 Oct, [facility] [place] [facility] [address] [id number] [place] [address]- 5041 Oct, [facility] [place] [facility] [address] [id number] [place] [address]- 7770 Oct, [facility] [place] [facility] [address] [id number] [place] [address]- 1517 Aug, [facility] [place] [facility] [address] [id number] [place] [address]- 2408 Aug, [facility] [place] [facility] [address] [id number] [place] [address]- 5646 Aug, [facility] [place] [facility] [address] [id number] [place] [address]- 7518 Jul, [facility] [place] [facility] [address] [id number] [place] [address]- 1487 May, [facility] [place] [facility] [address] [id number], [place] [address]- 6052 May, [facility] [place] [facility] [address] [id number], [place] [address]- 0069 Apr, [facility] [place] [facility] [address] [id number], [place] [address]- 3879 Apr, [facility] [place] [facility] [address] [id number] [place] [address]- 6825 Apr, [facility] [place] [facility] [address] [id number], [place] [address]- 9476 Apr, [facility] [place] [facility] [address] [id number] [place] [address]- 6079 Apr, [facility] [place] [facility] [address] [id number] [place] [address]- 6348 Apr, [facility] [place] [facility] [address] [id number] [place] [address]- 0883 Apr, [facility] [place] [facility] [address] [id number] [place] 1990 Apr, [facility] [place] [facility] [address] [id number] [place] [address]- 2849 Apr, [facility] [place] [facility] [address] [id number] [place] [address]- 2086 Apr, [facility] [place] [facility] [address] [id number] [place] [address]- 8096 Apr, [facility] [place] [facility] [address] [id number] [place] [address]- 9513 Apr, [facility] [place] [facility] [address] [id number] [place] [address]- 8197 Mar, [facility] [place] [facility] [address] [id number] [place] [address]- 2001 Jan, [facility] [place] [facility] [address] [id number] [place] [address]- 9388 Dec, [facility] [place] [facility] [address] [id number] [place] [address]- 2194 October, [facility] [place] [facility] [address] [id number] [place] [address]- 5788 Oct, [facility] [place] [facility] [address] [id number] [place] [address]- 2568 Oct, [facility] [place] [facility] [address] [id number] [place] [address]- 0758 Oct, [facility] [place] [facility] [address] [id number] [place] [address]- 5706 Aug, [facility] [place] [facility] [address] [id number] [place] [address]- 9724 Aug, [facility] [id number], [place] [address]- 6125 Aug, [facility] [id number] [address] Aug, [facility] [id number], [place] [address]- 2109 Aug, [facility] [id number], [place] [address]- 4984 Aug, [facility] [id number] [address] Jun, [facility] [id number], [place] [address]- 9439 Apr, [facility] [id number], [place] [address]- 0308 Jun, [facility] [id number] [place] [address]- 1848 Jun, [facility] [id number], [place] [address]- 8476 May, [facility] [id number], [place] [address]- 4361 May, [facility] [id number], [place] [address]- 8368 Apr, [facility] [id number], [place] [address]- 6023 Apr, IMMUNIZATIONS No Known Immunizations SOCIAL HISTORY Never Assessed REASON FOR VISIT Allergy injection(s) patricia keith PLAN OF CARE Activity Details Follow Up 1 Week Reason: VITAL SIGNS MEDICATIONS Unknown Medications RESULTS No Results PROCEDURES Procedure Date Ordered Result Body Site IMMUNOTHERAPY, 2 OR MORE INJECTIONS 2017-10-19 N/A IMMUNOTHERAPY INJECTIONS October 19, 2017 INSTRUCTIONS MEDICATIONS ADMINISTERED No Known Medications [...] History see above surgeries Hospitalization History Anaphylactic shock-[facility] 08/23/16
--- OUTSIDE RECORDS SUMMARY | 2018-07-18 07:25 | XMS REPORT ---
Author Author BRANDY SAGAR [facility] Address [address] [place] [address] Care Team Providers Care Android Software Engineer Name Role Phone BRANDYTEZ HOYTHANY Unavailable PROBLEMS Type Condition ICD9-CM Code RIU04-UI Code Onset Dates Condition Status SNOMED Code Problem Migraine with aura and without status migrainosus, not intractable G43.109 Active 7482511 Problem PCOS (polycystic ovarian syndrome) E28.2 Active 99680644 Problem Uncomplicated severe persistent asthma J45.50 Active 199281629 Problem Severe persistent asthma with exacerbation J45.51 Active 214085999 Problem Other elevated white blood cell (WBC) count D72.828 Active 815577520 Problem Multiple food allergies Z91.018 Active 268200166 Problem Pure hypercholesterolemia E78.00 Active 408698345 Problem Current chronic use of inhaled steroid Z79.51 Active 892286815 Problem Asthma exacerbation J45.901 Active 317732607 Problem ADD (attention deficit disorder) F90.0 Active 377209288 Problem Allergic rhinitis due to pollen J30.1 Active 40281759 Problem Vitamin D deficiency E55.9 Active 65318971 Problem Major depressive disorder, recurrent episode, mild F33.0 Active 264915990 Problem Acquired hypothyroidism E03.9 Active 562097421 Problem Gastroesophageal reflux disease without esophagitis K21.9 Active 642957087 ALLERGIES No Information ENCOUNTERS Encounter Location Date Diagnosis [facility] [id number] [address] Jan, Allergic reaction, initial encounter T78.40XA [address], [place] [address] Dec, Allergic rhinitis due to pollen J30.1 [facility] [id number] [address] Dec, [facility] [id number] [place] [address] 52667- 8425 Dec, Allergic rhinitis due to pollen J30.1 [facility] [id number] [place] [address] 46094- 8487 Dec, ADD (attention deficit disorder) F90.0 [place] [id number] [place] [address] 64454- 5241 Dec, ADD (attention deficit disorder) F90.0 and Uncomplicated severe persistent asthma J45.50 [facility] [place] [id number] [place] [address] 19132- 2461 Dec, Allergic rhinitis due to pollen J30.1 [facility] [place] [id number] [place] [address] 44051- 9905 Dec, [facility] [id number] [place] [address] 07918- 4178 October, Allergic rhinitis due to pollen J30.1 [facility] [place] [id number] [place] [address] 51638- 3575 October, Allergic rhinitis due to pollen J30.1 [facility] [id number] [place] [address] 11330- 4103 Oct, [facility] [id number] [place] [address] 07027- 4200 Oct, Allergic rhinitis due to pollen J30.1 [facility] [id number] [place] [address] 02194- 8638 Oct, [facility] [id number] [place] [address] 58896- 5933 Oct, Allergic rhinitis due to pollen J30.1 [facility] [address] [place] [address] 83618- 2596 Oct, Severe persistent asthma with exacerbation J45.51 and Pneumonia due to Haemophilus influenzae, unspecified laterality, unspecified part of lung J14 [place] [id number] [place] [address] 63633- 7910 10 Oct, 2017 ADD (attention deficit disorder) F90.0 [place] [address] 07122- 9157 12 Aug, 2017 Haemophilus influenzae infection A49.2 [place] [address] 62688- 4322 09 Aug, 2017 Cough productive of purulent sputum R05 [place] [address] 86250- 1704 08 Aug, 2017 [place] [address] 86302- 8409 08 Aug, 2017 Pulmonary congestion R09.89 [place] [address] 38680- 5512 07 Aug, 2017 Severe persistent asthma with exacerbation J45.51 ; Hiatal hernia K44.9 and Gastroesophageal reflux disease without esophagitis K21.9 [place] [address] 57501- 0911 02 Aug, 2017 Other elevated white blood cell (WBC) count D72.828 [place] [address] 16951- 7518 Aug, Uncomplicated severe persistent asthma J45.50 [place] [address] 42165- 6708 Aug, Pure hypercholesterolemia E78.00 ; Uncomplicated severe persistent asthma J45.50 and Acquired hypothyroidism E03.9 [place] [address] 02208- 7283 20 Aug, 2017 Acquired hypothyroidism E03.9 ; Pure hypercholesterolemia E78.00 and Uncomplicated severe persistent asthma J45.50 [place] [id number] [place] [address] 41250- 3080 15 Aug, 2017 Allergic rhinitis due to pollen J30.1 [place] [address] 00119- 9618 Aug, Allergic rhinitis due to pollen J30.1 [facility] [id number] [place] [address] 43207- 8189 Aug, [facility] [address] [id number] Jul, Pharyngitis, unspecified etiology J02.9 and Lymphadenopathy R59.1 [place] [address] 82711- 3548 Jul, ADD (attention deficit disorder) F90.0 [place] [address] 427266- 0284 Jul, Allergic rhinitis due to pollen J30.1 [facility] [place] [id number] [place] [address] 31551- 5704 Jul, Dental examination Z01.20 [place] [address] 71366- 9715 Jun, Cough productive of purulent sputum R05 [place] [address] 51003- 8090 Jun, Allergic rhinitis due to pollen J30.1 [facility] [place] [id number] [place] [address] 78881- 5073 Jun, [facility] [place] [id number] [place] [address] 10043- 3125 Jun, Allergic rhinitis due to pollen J30.1 [facility] [place] [id number] [place] [address] 05161- 8813 Jun, Allergic rhinitis due to pollen J30.1 [facility] [id number] [place] [address] 57203- 9285 May, Allergic rhinitis due to pollen J30.1 [facility] [id number] [place] [address] 76748- 4808 May, Pneumonia due to Haemophilus influenzae, unspecified laterality, unspecified part of lung J14 [facility] [id number] [place] [address] 25065- 7248 May, Allergic rhinitis due to pollen J30.1 [facility] [place] [id number] [place] [address] 22628- 9190 May, Other adverse food reactions, not elsewhere classified, initial encounter T78.1XXA and Pneumonia due to Haemophilus influenzae, unspecified laterality, unspecified part of lung J14 [place] [id number] [place] [address] 32350- 8419 13 May, 2017 Pneumonia due to Haemophilus influenzae, unspecified laterality, unspecified part of lung J14 [place] [address] 42101- 7381 10 May, 2017 Multiple food allergies Z91.018 ; Uncomplicated severe persistent asthma J45.50 ; Cough productive of purulent sputum R05 and Uses central nervous system stimulants F15.90 [place] [address] 52349- 6517 Apr, Allergic rhinitis due to pollen J30.[address] 06226- 0001 Apr, Allergic rhinitis due to pollen J30.1 [facility] [id number] [place] [address] 01799- 2554 Apr, Allergic rhinitis due to pollen J30.1 [facility] [place] [id number] [place] [address] 47414- 4692 Apr, ADD (attention deficit disorder) F90.[address] 17709- 3262 Mar, Allergic rhinitis due to pollen J30.1 [facility] [id number] [place] [address] 09220- 0951 Mar, Encounter for immunization Z23 [address] 89639- 6831 19 Mar, 2017 [facility] [address] [place] [address] 12006- 1386 14 Mar, 2017 Allergic rhinitis due to pollen J30.1 [facility] [id number] [place] [address] 74630- 0617 07 Mar, 2017 Allergic rhinitis due to pollen J30.1 [place] [id number] [place] [address] 64556- 1311 Jan, Allergic rhinitis due to pollen J30.1 [facility] [id number] [place] [address] 81996- 3895 Jan, Allergic rhinitis due to pollen J30.1 [facility] [id number] [place] [address] 25895- 3657 Dec, Uncomplicated severe persistent asthma J45.50 [address] [address] 76756- 1053 Dec, Allergic rhinitis due to pollen J30.1 [facility] [id number] [place] [address] 66116- 0869 Dec, Allergic rhinitis due to pollen J30.1 [facility] [id number] [place] [address] 17524- 7285 Dec, Allergic rhinitis due to pollen J30.1 [place] [id number] [place] [address] 54613- 9148 Dec, ADD (attention deficit disorder) F90.0 [place] [id number] [place] [address] 40201- 4729 Dec, Allergic rhinitis due to pollen J30.1 [place] [id number] [place] [address] 83585- 3155 Dec, Screening for tuberculosis Z11.1 and Visit for TB skin test Z11.1 [place] [id number] [place] [address] 73997- 0970 Dec, Uncomplicated severe persistent asthma J45.50 ; Palpitations R00.2 ; Pericardial effusion (noninflammatory) I31.3 and Chest discomfort R07.89 [address] [address] 22302- 5814 Dec, Allergic rhinitis due to pollen J30.1 [place] [id number] [place] [address] 76333- 0272 Dec, Chronic cough R05 [address] [address] 15875- 0727 Dec, [place] [address] 70144- 0184 Dec, Allergic rhinitis due to pollen J30.1 [address] [address] 44091- 6095 Dec, Allergic rhinitis due to pollen J30.1 [place] [address] 70543- 0106 Dec, Chronic cough R05 [address] [address] 90543- 6875 October, Allergic rhinitis due to pollen J30.1 [facility] [id number] [place] [address] 15991- 5122 October, Allergic rhinitis due to pollen J30.1 [facility] [place] [id number] [place] [address] 28248- 2017 October, [facility] [place] [id number] [place] [address] 05978- 1092 October, Asthma exacerbation J45.901 [address] [address] 54224- 4463 October, Asthma exacerbation J45.901 and Current chronic use of inhaled steroid Z79.51 [place] [id number] [place] [address] 57121- 9575 October, Uncomplicated severe persistent asthma J45.50 [place] [id number] [place] [address] 92571- 4453 October, Allergic rhinitis due to pollen J30.1 [facility] [id number] [place] [address] 59777- 0745 Oct, [address] [address] 12083- 8577 Oct, Asthma exacerbation J45.901 and Sputum production R05 [address] [address] 83014- 6393 Oct, Asthma exacerbation J45.901 [address] [address] 45526- 0554 Oct, ADD (attention deficit disorder) F90.0 [address] [address] 30685- 4059 Oct, ADD (attention deficit disorder) F90.0 [address] [address] 38783- 3584 Aug, Allergic rhinitis due to pollen J30.1 [address] [address] 09928- 2687 Aug, Atypical pneumonia J18.9 [place] [id number] [place] [address] 94856- 9840 Aug, Allergic rhinitis due to pollen J30.1 [facility] [id number] [place] [address] 76719- 2273 Aug, Acquired hypothyroidism E03.9 [address] [address] 91197- 9680 Aug, Multiple food allergies Z91.018 ; Elevated blood pressure reading R03.0 and Anaphylaxis, subsequent encounter T78.2XXD [address] [id number] Aug, [place] [id number] [place] [address] 25777- 6186 Aug, Anaphylaxis, initial encounter T78.2XXA [address] [address] 49058- 1363 Aug, Allergic rhinitis due to pollen J30.1 [address] [address] 63584- 8671 Aug, Dental examination Z01.20 [address] [address] 36726- 2564 Aug, Allergic rhinitis due to pollen J30.[address] 86301- 2631 Aug, Acquired hypothyroidism E03.9 and Pure hypercholesterolemia E78.[address] 28177- 7464 Aug, ADD (attention deficit disorder) F90.0 ; Acquired hypothyroidism E03.9 and Pure hypercholesterolemia E78.00 [place] [id number] [place] [address] 75687- 4741 Aug, Asthma exacerbation J45.901 [place] [id number] [place] [address] 31695- 0634 Jul, Allergic rhinitis due to pollen J30.1 [place] [id number] [place] [address] 33029- 8207 Jul, Allergic rhinitis due to pollen J30.1 [facility] [id number] [place] [address] 31734- 3921 Jul, [address] [address] 31867- 1383 Jul, Allergic rhinitis due to pollen J30.1 [place] [id number] [place] [address] 49188- 8228 Jul, Other skilled nursing (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 and ADD ( attention deficit disorder) F90.0 [facility] [id number] [place] [address] 39036- 4814 Jul, Other exterminator helper (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 and ADD ( attention deficit disorder) F90.0 [facility] [id number] [place] [address] 20811- 4901 Jul, [facility] [address] 72723- 1673 Jun, Allergic rhinitis due to pollen J30.1 [facility] [address] 08226- 0660 Jun, Allergic rhinitis due to pollen J30.1 [address] [id number] [place] [address] 58370- 6677 Jun, [place] [address] 96935- 5068 May, Allergic rhinitis due to pollen J30.1 [facility] [id number] [place] [address] 55195- 7789 May, Allergic rhinitis due to pollen J30.1 [facility] [id number] [place] [address] 65353- 8861 Apr, Allergic rhinitis due to pollen J30.1 [place] [id number] [place] [address] 15884- 0351 Apr, Allergic rhinitis due to pollen J30.1 [facility] [id number] [place] [address] 36047- 7705 Apr, Encounter for immunization Z23 [facility] [address] 73096- 3448 Apr, [facility] [id number] [place] [address] 77537- 5270 Mar, Allergic rhinitis due to pollen J30.1 [facility] [id number] [place] [address]- 7222 Mar, Multiple allergies Z88.9 [facility] [id number] [place] [address] 67259- 4754 Mar, Candidal vaginitis B37.3 [facility] [id number] [place] [address] 98682- 9408 08 Mar, 2016 Allergic rhinitis due to pollen J30.1 [facility] [id number] [place] [address] 38392- 0466 Jan, Asthma exacerbation J45.901 ; Fatigue, unspecified type R53.83 and Community acquired pneumonia J18.9 [facility] [id number] [place] [address] [id number] Jan, Encounter for dental examination Z01.20 [facility] [id number] [place] [address] 85715- 8666 Jan, Allergic rhinitis due to pollen J30.1 [facility] [id number] [place] [address] 98759- 5496 Dec, Allergic rhinitis due to pollen J30.1 [facility] [id number] [place] [address] 30607- 0427 Dec, [facility] [id number] [place] [address] 83273- 8601 Dec, Allergic rhinitis due to pollen J30.1 [facility] [id number] [place] [address] 21516- 9908 Dec, [facility] [id number] [place] [address] 95710- 1355 Dec, [facility] [id number] [place] [address] 65717- 1930 Dec, [facility] [id number] [place] [address] 24212- 7514 Dec, Allergic rhinitis due to pollen J30.1 [facility] [address], [place] [address]- 5297 Dec, [facility] [address], [place] [address]- 3673 Dec, [facility] [address], [place] [address]- 7271 Dec, Allergic rhinitis due to pollen J30.1 [facility] [address], [place] [address]- 2378 October, Allergic rhinitis due to pollen J30.1 [facility] [address], [place] [address]- 1574 October, Allergic rhinitis due to pollen J30.1 [facility] [address], [place] [address]- 2053 October, [facility] [id number] [place] [address] 95244- 7025 October, [facility] [address] [place] [address] 58100- 6108 October, ADD (attention deficit disorder) F90.0 ; Major depressive disorder, recurrent episode, mild F33.0 and Uncomplicated severe persistent asthma J45.50 [place] [address], [place] [address]- 5365 Oct, Allergic rhinitis due to pollen J30.1 [facility] [address], [place] [address]- 5175 Oct, ADD (attention deficit disorder) F90.0 [facility] [address], [place] [address]- 6996 Oct, Allergic rhinitis due to pollen 477.0 [facility] [address], [place] [address]- 6604 Aug, Allergic rhinitis due to pollen 477.0 [facility] [address], [place] [address]- 3785 Aug, 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 [facility] [id number] [place] [address] 91711- 2124 Aug, [facility] [id number] [place] [address] 31378- 2621 Aug, Allergic rhinitis due to pollen 477.0 [facility] [id number] [place] [address] 54653- 2841 Aug, Allergic rhinitis due to pollen 477.0 [facility] [id number] [place] [address] 67502- 8067 Aug, Allergic rhinitis due to pollen 477.0 [facility] [id number] [place] [address] 22707- 9416 Aug, Exposure to influenza Z20.828 [facility] [address] [id number] Aug, Encounter for dental examination and cleaning without abnormal findings Z01.20 [facility] [id number] [place] [address] 04401- 6525 Aug, Allergic rhinitis due to pollen J30.1 [facility] [id number] [place] [address] 95097- 2808 Aug, [facility] [id number] [place] [address] 29996- 9465 Aug, 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 [facility] [id number] [place] [address] 93018- 6371 Jul, [facility] [address] 77030- 0762 Jul, Allergic rhinitis due to pollen 477.0 [facility] [id number] [place] [address] 96080- 9828 Jul, [facility] [address] 05780- 1262 Jul, Allergic rhinitis due to pollen 477.0 [place] [address] 84586- 5937 Jun, ADD (attention deficit disorder) F90.0 ; Acquired hypothyroidism E03.9 ; PCOS (polycystic ovarian syndrome) E28.2 ; Polyarthralgia M25.50 and On stimulant medication Z79.899 [place] [address] 82012- 9021 Apr, Encounter for immunization Z23 [place] [address] 84630- 0941 16 Mar, 2015 Allergic rhinitis due to pollen 477.0 [place] [address] 99856- 5841 Mar, Influenza vaccine administered V04.81 [place] [address] 62170- 3484 Mar, [place] [address] 78342- 4816 Jan, Allergic rhinitis due to pollen 477.0 [place] [address] 65770- 9922 Jan, Allergic rhinitis due to pollen 477.0 [place] [address] 86282- 7300 Jan, Allergic rhinitis due to pollen 477.0 [facility] [address] [id number] Jan, Dental examination V72.2 [place] [address] 66349- 7884 Dec, Allergic rhinitis due to pollen 477.0 [place] [address] 62632- 5426 October, [facility] [address] 60049- 7780 14 Oct, 2014 [facility] [place] [facility] [address] [id number] [place] [address]- 6545 Oct, [facility] [place] [facility] [address] [id number] [place] [address]- 7281 Aug, [facility] [place] [facility] [address] [facility] [id number] [place] [address]- 1430 Aug, [facility] [place] [facility] [address] [id number] [place] [address]- 2256 Aug, [facility] [place] [facility] [address] [id number] [place] [address]- 9073 Aug, [facility] [place] [facility] [address] [id number] [place] [address]- 0854 Aug, [facility] [place] [facility] [address] [facility] [id number] [place] [address]- 9274 Aug, [facility] [place] [facility] [address] [id number] [place] [address] Aug, [facility] [place] [facility] [address] [id number] [place] [address] Aug, [facility] [place] [facility] [address] [facility] [id number] [place] [address] Jul, [facility] [place] [facility] [address] [id number] [address] Jul, [facility] [place] [facility] [address] [id number], [place] [address] Jul, [facility] [place] [facility] [address] [id number] [place] [address] Jul, [facility] [place] [facility] [address] [facility] [id number] [place] [address] Jul, [facility] [place] [facility] [address] [facility] [id number] [place] [address] Jul, [facility] [place] [facility] [address] [id number] [place] [address] Jul, [facility] [place] [facility] [address] [id number] [place] [address] Jul, [facility] [place] [facility] [address] [id number] [place] [address] Jul, [facility] [place] [facility] [address] [id number] [place] [address] Jul, [facility] [place] [facility] [address] [id number] [place] [address] Jul, [facility] [place] [facility] [address] [id number] [place] [address] Jun, [facility] [place] [facility] [address] [id number] [place] [address] Jun, [facility] [place] [facility] [address] [id number] [place] [address] Jun, [facility] [place] [facility] [address] [id number] [place] [address] Jun, [facility] [place] [facility] [address] [id number] [place] [address] Jun, [facility] [place] [facility] [address] [id number] [place] [address] Jun, [facility] [place] [facility] [address] [id number] [place] [address] 87[address] May, [facility] [place] [facility] [address] [id number] [place] [address] 29[address] May, [facility] [place] [facility] [address] [id number] [place] [address] May, [facility] [place] [facility] [address] [id number] [place] [address] May, [facility] [place] [facility] [address] [id number] [place] [address] 5535 May, [facility] [place] [facility] [address] [id number] [place] [address] 8629 May, [facility] [place] [facility] [address] [id number] [place] [address] 63[address] Apr, [facility] [place] [facility] [address] [id number] [place] [address]- 6416 Apr, [facility] [place] [facility] [address] [id number] [place] [address] 1378 Mar, [facility] [place] [facility] [address] [id number] [place] [address] 8590 Mar, [facility] [place] [facility] [address] [id number] [place] [address] 4620 Mar, [facility] [place] [facility] [address] [id number] [place] [address] 8136 Mar, [facility] [place] [facility] [address] [id number] [place] [address]- 0871 Mar, [facility] [place] [facility] [address] [id number] [place] [address] 4833 Mar, [facility] [place] [facility] [address] [id number] [place] [address]- 5609 Jan, [facility] [place] [facility] [address] [id number] [place] [address] 2104 Jan, [facility] [place] [facility] [address] [id number], [place] [address] Jan, [facility] [place] [facility] [address] [id number] [place] [address]- 3725 Jan, [facility] [place] [facility] [address] [id number] [place] [address]- 3528 Jan, [facility] [place] [facility] [address] [id number] [place] [address] 8890 Jan, [facility] [place] [facility] [address] [id number] [place] [address] 8102 Dec, [facility] [place] [facility] [address] [id number] [place] [address]- 4541 Dec, [facility] [place] [facility] [address] [id number] [place] [address] 1848 Dec, [facility] [place] [facility] [address] [id number] [place] [address]- 4092 Dec, [facility] [place] [facility] [address] [id number] [place] [address]- 9287 Dec, [facility] [place] [facility] [address] [id number] [place] [address]- 0261 Dec, [facility] [place] [facility] [address] [id number] [place] [address]- 3431 Dec, [facility] [place] [facility] [address] [id number] [place] [address]- 8724 Dec, [facility] [place] [facility] [address] [id number] [place] [address]- 4854 Dec, [facility] [place] [facility] [address] [id number] [place] [address]- 5840 Dec, [facility] [place] [facility] [address] [id number] [place] [address]- 6278 Dec, [facility] [place] [facility] [address] [id number] [place] [address]- 8861 Dec, [facility] [place] [facility] [address] [id number] [place] [address]- 1335 Dec, [facility] [place] [facility] [address] [id number] [place] [address]- 5205 Dec, [facility] [place] [facility] [address] [id number] [place] [address]- 1015 Dec, [facility] [place] [facility] [address] [id number] [place] [address]- 5718 Dec, [facility] [place] [facility] [address] [id number] [place] [address]- 1501 October, [facility] [place] [facility] [address] [id number] [place] [address]- 8546 October, [facility] [place] [facility] [address] [id number] [place] [address]- 0046 October, [facility] [place] [facility] [address] [id number] [place] [address]- 6101 October, [facility] [place] [facility] [address] [id number] [place] [address]- 3184 October, [facility] [place] [facility] [address] [id number] [place] [address]- 9470 October, [facility] [place] [facility] [address] [id number] [place] [address]- 0148 Oct, [facility] [place] [facility] [address] [id number] [place] [address]- 1810 Oct, [facility] [place] [facility] [address] [id number] [place] [address]- 0037 Oct, [facility] [place] [facility] [address] [id number] [place] [address]- 2683 Oct, [facility] [place] [facility] [address] [id number] [place] [address]- 8350 Oct, [facility] [place] [facility] [address] [id number] [place] [address]- 9322 Oct, [facility] [place] [facility] [address] [id number] [place] [address]- 1430 Aug, [facility] [place] [facility] [address] [id number] [place] [address]- 2714 Aug, [facility] [place] [facility] [address] [id number] [place] [address]- 1102 Aug, [facility] [place] [facility] [address] [id number] [place] [address]- 2546 Aug, [facility] [address] [id number] [place] [address]- 5322 Jul, [facility] [place] [facility] [address] [id number] [place] [address]- 8669 Jul, [facility] [address] [id number] [place] [address]- 1826 Jul, [facility] [place] [facility] [address] [id number] [place] [address]- 0376 Jul, [facility] [address] [id number] [place] [address]- 2812 Jun, [facility] [place] [facility] [address] [id number] [place] [address]- 5634 Jun, [facility] [address] [id number] [place] [address]- 4706 Jun, [facility] [place] [facility] [address] [id number] [place] [address]- 2779 Jun, [facility] [address] [id number] [place] [address]- 3833 Jun, [facility] [place] [facility] [address] [id number] [place] [address]- 1455 Jun, [facility] [place] [facility] [address] [id number] [place] [address]- 4782 Jun, [facility] [place] [facility] [address] [id number], [place] [address]39 Jun, [facility] [place] [facility] [address] [id number] [place] [address] Jun, [facility] [place] [facility] [address] [id number] [place] [address] Jun, [facility] [place] [facility] [address] [id number] [place] [address] Jun, [facility] [place] [facility] [address] [id number] [place] [address]- 0859 May, [facility] [place] [facility] [address] [id number] [place] [address]- 3266 May, [facility] [place] [facility] [address] [id number] [place] [address]- 6256 May, [facility] [place] [facility] [address] [id number] [place] [address]- 6888 May, [facility] [place] [facility] [address] [id number] [place] [address]- 8955 May, [facility] [place] [facility] [address] [id number] [place] [address]- 5657 May, [facility] [place] [facility] [address] [id number] [place] [address]- 5245 May, [facility] [place] [facility] [address] [id number] [place] [address]- 0116 Apr, [facility] [place] [facility] [address] [id number] [place] [address]- 9819 30 Apr, 2013 [facility] [place] [facility] [address] [id number] [place] [address]- 3913 18 Apr, 2013 [facility] [place] [facility] [address] [id number] [place] [address]- 2171 Apr, [facility] [place] [facility] [address] [id number] [place] [address]- 254 27 Mar, 2012 [facility] [place] [facility] [address] [id number] [place] [address]- 2547 26 Mar, 2012 [facility] [place] [facility] [address] [id number] [place] [address] 2541 26 Mar, 2012 [facility] [place] [facility] [address] [id number] [place] [address]- 2542 23 Mar, 2012 [facility] [place] [facility] [address] [id number] [place] [address]- 6204 Mar, [facility] [place] [facility] [address] [id number] [place] [address]- 1812 Mar, [facility] [place] [facility] [address] [id number] [place] [address]- 7605 Jan, [facility] [place] [facility] [address] [id number] [place] [address]- 8936 Jan, [facility] [place] [facility] [address] [id number] [place] [address]- 3095 Jan, [facility] [place] [facility] [address] [id number] [place] [address]- 3241 Jan, [facility] [place] [facility] [address] [id number] [place] [address]- 8716 Jan, [facility] [place] [facility] [address] [id number] [place] [address]- 7795 Dec, [facility] [place] [facility] [address] [id number] [place] [address]- 0717 Dec, [facility] [place] [facility] [address] [id number] [place] [address]- 9564 Dec, [facility] [place] [facility] [address] [id number] [place] [address]- 3273 Dec, [facility] [place] [facility] [address] [id number] [place] [address]- 2818 Dec, [facility] [place] [facility] [address] [id number] [place] [address]- 8167 Dec, [facility] [place] [facility] [address] [id number] [place] [address]- 7163 Dec, [facility] [place] [facility] [address] [id number] [place] [address]- 0561 Dec, [facility] [place] [facility] [address] [id number] [place] [address]- 8249 October, [facility] [place] [facility] [address] [id number] [place] [address]- 9533 October, [facility] [address] [id number] [place] [address]- 4841 October, [facility] [place] [facility] [address] [id number] [place] [address]- 6893 Oct, [facility] [address] [id number] [place] [address]- 7829 Oct, [facility] [place] [facility] [address] [id number] [place] [address]- 7363 Oct, [facility] [address] [id number] [place] [address]- 5623 Oct, [facility] [place] [facility] [address] [id number] [place] [address]- 3434 Aug, [facility] [address] [id number] [place] [address]- 1856 Aug, [facility] [place] [facility] [address] [id number] [place] [address]- 0588 Aug, [facility] [address] [id number] [place] [address]- 4959 Jul, [facility] [address] [facility] [id number] [place] [address]- 7246 May, [facility] [address] [id number] [place] [address]- 2581 May, [facility] [place] [facility] [address] [id number], [place] [address]- 8574 Apr, [facility] [place] [facility] [address] [id number] [place] [address]- 2174 Apr, [facility] [place] [facility] [address] [facility] [id number] [place] [address]- 1203 Apr, [facility] [place] [facility] [address] [id number] [place] [address]99 Apr, [facility] [place] [facility] [address] [id number] [place] [address]- 6373 Apr, [facility] [place] [facility] [address] [id number] [place] [address]- 7407 Apr, [facility] [place] [facility] [address] [id number] [place] [address]- 9103 Apr, [facility] [place] [facility] [address] [id number] [place] [address]- 6450 Apr, [facility] [place] [facility] [address] [id number] [place] [address]- 8326 Apr, [facility] [place] [facility] [address] [id number] [place] [address]- 4158 Apr, [facility] [place] [facility] [address] [id number] [place] [address]- 5902 Apr, [facility] [place] [facility] [address] [id number] [place] [address]- 4790 Apr, [facility] [place] [facility] [address] [id number] [place] [address]- 7881 Mar, [facility] [place] [facility] [address] [id number] [place] [address]- 2259 Jan, [facility] [place] [facility] [address] [id number] [place] [address]- 3744 Dec, [facility] [place] [facility] [address] [id number] [place] [address]- 7813 October, [facility] [place] [facility] [address] [id number] [place] [address]- 5949 Oct, [facility] [place] [facility] [address] [id number] [place] [address]- 2239 Oct, [facility] [place] [facility] [address] [id number] [place] [address]- 4538 Oct, [facility] [place] [facility] [address] [id number] [place] [address]- 4116 Aug, [facility] [id number], [place] [address]12 Aug, [facility] [id number] [address] Aug, [facility] [id number], [place] [address]- 4866 Aug, [facility] [id number] [place] [address]- 4994 Aug, [facility] [id number], [place] [address]- 0763 Aug, [facility] [id number] [place] [address] 28[address]- 8132 Jun, [facility] [id number] [place] [address] 81815- 8907 Apr, [facility] [id number] [place] [address] 41589- 3630 Jun, [facility] [id number] [place] [address] 148978- 8522 Jun, [facility] [id number], [place] [address]- 3636 May, [facility] [id number], [place] [address]- 2137 May, [facility] [id number], [place] [address]- 5681 Apr, [facility] [id number], [place] [address]- 2173 Apr, IMMUNIZATIONS No Known Immunizations SOCIAL HISTORY Never Assessed REASON FOR VISIT Refill Requests PLAN OF CARE VITAL SIGNS MEDICATIONS Medication Instructions Dosage Frequency Start Date End Date Duration Status Spiriva Respimat 2.5 MCG/ACT Inhalation Once a day 2 puffs 24h Oct, Active Breo Ellipta 200-25 MCG/INH Inhalation Once a day 1 puff 24h Active RESULTS No Results PROCEDURES No [...] History see above surgeries Hospitalization History Anaphylactic shock-[facility] 08/23/16
--- OUTSIDE RECORDS SUMMARY | 2018-07-18 07:26 | XMS REPORT ---
Author Author BRANDY SAGAR [facility] Address [address] [place] [address] Care Team Providers Care School Counselor Name Role Phone BRANDYTEZ HOYTHANY Unavailable PROBLEMS Type Condition ICD9-CM Code WMO28-TG Code Onset Dates Condition Status SNOMED Code Problem Migraine with aura and without status migrainosus, not intractable G43.109 Active 0321366 Problem PCOS (polycystic ovarian syndrome) E28.2 Active 55459108 Problem Uncomplicated severe persistent asthma J45.50 Active 417743764 Problem Severe persistent asthma with exacerbation J45.51 Active 313191013 Problem Other elevated white blood cell (WBC) count D72.828 Active 574403484 Problem Multiple food allergies Z91.018 Active 640893668 Problem Pure hypercholesterolemia E78.00 Active 636741770 Problem Current chronic use of inhaled steroid Z79.51 Active 018478992 Problem Asthma exacerbation J45.901 Active 149095562 Problem ADD (attention deficit disorder) F90.0 Active 213709015 Problem Allergic rhinitis due to pollen J30.1 Active 94353161 Problem Vitamin D deficiency E55.9 Active 11975766 Problem Major depressive disorder, recurrent episode, mild F33.0 Active 994137988 Problem Acquired hypothyroidism E03.9 Active 902187954 Problem Gastroesophageal reflux disease without esophagitis K21.9 Active 071957915 ALLERGIES No Information ENCOUNTERS Encounter Location Date Diagnosis [facility] [id number], [place] [address] Dec, Allergic rhinitis due to pollen J30.1 [facility] [id number] [address] Dec, [facility] [address], [place] [address] Dec, Allergic rhinitis due to pollen J30.1 [facility] [id number] [place] [address] 33696- 0862 Dec, ADD (attention deficit disorder) F90.0 [facility] [address] [address]- [address]34 Dec, ADD (attention deficit disorder) F90.0 and Uncomplicated severe persistent asthma J45.50 [facility] [id number] [place] [address] 04986- 7339 Dec, Allergic rhinitis due to pollen J30.1 [facility] [id number] [place] [address] 38969- 5847 Dec, [facility] [address] 00185- 8685 October, Allergic rhinitis due to pollen J30.1 [facility] [id number] [place] [address] 95356- 3806 October, Allergic rhinitis due to pollen J30.1 [facility] [id number] [place] [address] 38563- 8454 Oct, [facility] [id number] [place] [address] 20306- 1922 Oct, Allergic rhinitis due to pollen J30.1 [facility] [id number] [place] [address] 33541- 9871 Oct, [facility] [id number] [place] [address] 12553- 8941 Oct, Allergic rhinitis due to pollen J30.1 [facility] [id number] [place] [address] 88492- 4777 Oct, Severe persistent asthma with exacerbation J45.51 and Pneumonia due to Haemophilus influenzae, unspecified laterality, unspecified part of lung J14 [facility] [id number] [place] [address] 06477- 6551 Oct, ADD (attention deficit disorder) F90.0 [facility] [address] [place] [address] Aug, Haemophilus influenzae infection A49.2 [facility] [id number] [place] [address] 13841- 5214 Aug, Cough productive of purulent sputum R05 [facility] [id number] [place] [address] 54317- 2153 Aug, [facility] [address] 81248- 2656 Aug, Pulmonary congestion R09.89 [place] [address] 19640- 8732 Aug, Severe persistent asthma with exacerbation J45.51 ; Hiatal hernia K44.9 and Gastroesophageal reflux disease without esophagitis K21.9 [facility] [id number] [place] [address] 19087- 6845 Aug, Other elevated white blood cell (WBC) count D72.828 [facility] [id number] [place] [address] 48056- 9874 Aug, Uncomplicated severe persistent asthma J45.50 [facility] [address] 49819- 1292 Aug, Pure hypercholesterolemia E78.00 ; Uncomplicated severe persistent asthma J45.50 and Acquired hypothyroidism E03.9 [facility] [id number] [place] [address] 12091- 8993 Aug, Acquired hypothyroidism E03.9 ; Pure hypercholesterolemia E78.00 and Uncomplicated severe persistent asthma J45.50 [facility] [id number] [place] [address] 74950- 4205 15 Aug, 2017 Allergic rhinitis due to pollen J30.1 [facility] [id number] [place] [address] 64275- 0222 08 Aug, 2017 Allergic rhinitis due to pollen J30.1 [place] [address] 92113- 6087 Aug, [facility] [id number] [place] [address] [id number] Jul, Pharyngitis, unspecified etiology J02.9 and Lymphadenopathy R59.1 [facility] [place] [address] 54514- 6320 Jul, ADD (attention deficit disorder) F90.0 [place] [address] 57122- 1207 Jul, Allergic rhinitis due to pollen J30.1 [facility] [address] 45965- 1484 Jul, Dental examination Z01.20 [place] [address] 86024- 0166 Jun, Cough productive of purulent sputum R05 [place] [place] [address] 41594- 8103 Jun, Allergic rhinitis due to pollen J30.1 [facility] [address] 73089- 6526 Jun, [facility] [address] 56216- 9888 Jun, Allergic rhinitis due to pollen J30.1 [facility] [id number] [place] [address] 52477- 2473 Jun, Allergic rhinitis due to pollen J30.1 [facility] [id number] [place] [address] 42162- 6191 May, Allergic rhinitis due to pollen J30.1 [facility] [address] 69306- 1146 May, Pneumonia due to Haemophilus influenzae, unspecified laterality, unspecified part of lung J14 [place] [address] 41375- 5828 May, Allergic rhinitis due to pollen J30.1 [facility] [address] [place] [address] 02684- 2611 May, Other adverse food reactions, not elsewhere classified, initial encounter T78.1XXA and Pneumonia due to Haemophilus influenzae, unspecified laterality, unspecified part of lung J14 [facility] [id number] [place] [address] 56525- 4229 13 May, 2017 Pneumonia due to Haemophilus influenzae, unspecified laterality, unspecified part of lung J14 [facility] [id number] [place] [address] 43727- 4892 10 May, 2017 Multiple food allergies Z91.018 ; Uncomplicated severe persistent asthma J45.50 ; Cough productive of purulent sputum R05 and Uses central nervous system stimulants F15.90 [place] [address] 53002- 5763 Apr, Allergic rhinitis due to pollen J30.1 [facility] [id number] [place] [address] 12161- 1274 Apr, Allergic rhinitis due to pollen J30.1 [facility] [id number] [place] [address] 12751- 2063 Apr, Allergic rhinitis due to pollen J30.1 [facility] [id number] [place] [address] 96866- 6837 Apr, ADD (attention deficit disorder) F90.0 [facility] [id number] [place] [address] 32217- 1217 28 Mar, 2017 Allergic rhinitis due to pollen J30.1 [facility] [id number] [place] [address] 31471- 9180 21 Mar, 2017 Encounter for immunization Z23 [facility] [id number] [place] [address] 64638- 9337 19 Mar, 2017 [facility] [id number] [place] [address] 11324- 5638 14 Mar, 2017 Allergic rhinitis due to pollen J30.1 [facility] [place] [address] [place] [address] 01662- 4943 Mar, Allergic rhinitis due to pollen J30.1 [facility] [id number] [place] [address] 52929- 2729 Jan, Allergic rhinitis due to pollen J30.1 [facility] [id number] [place] [address] 27249- 9715 Jan, Allergic rhinitis due to pollen J30.1 [facility] [id number] [place] [address] 04481- 9202 Dec, Uncomplicated severe persistent asthma J45.50 [facility] [id number] [place] [address] 16973- 2630 Dec, Allergic rhinitis due to pollen J30.1 [facility] [id number] [place] [address] 85161- 7604 Dec, Allergic rhinitis due to pollen J30.1 [facility] [id number] [place] [address] 60541- 0492 Dec, Allergic rhinitis due to pollen J30.1 [facility] [id number] [place] [address] 71812- 6501 Dec, ADD (attention deficit disorder) F90.0 [place] [id number] [place] [address] 74852- 9467 Dec, Allergic rhinitis due to pollen J30.1 [facility] [id number] [place] [address] 24910- 9768 Dec, Visit for TB skin test Z11.1 and Screening for tuberculosis Z11.1 [place] [id number] [place] [address] 39209- 3209 Dec, Uncomplicated severe persistent asthma J45.50 ; Palpitations R00.2 ; Pericardial effusion (noninflammatory) I31.3 and Chest discomfort R07.89 [place] [place] [address], [place] [address]- 0735 Dec, Allergic rhinitis due to pollen J30.1 [facility] [id number] [place] [address] 31066- 1706 Dec, Chronic cough R05 [facility] [id number] [place] [address] 00958- 5367 Dec, [facility] [id number] [place] [address] 67668- 4186 Dec, Allergic rhinitis due to pollen J30.1 [facility] [id number] [place] [address] 03511- 9337 Dec, Allergic rhinitis due to pollen J30.1 [facility] [place] [id number] [place] [address] 33901- 0139 Dec, Chronic cough R05 [facility] [id number] [place] [address] 76467- 8271 October, Allergic rhinitis due to pollen J30.1 [facility] [id number] [place] [address] 87234- 0133 October, Allergic rhinitis due to pollen J30.1 [facility] [address] [place] [address] 62144- 1483 October, [facility] [id number] [place] [address] 65614- 6246 October, Asthma exacerbation J45.901 [place] [place] [address] [place] [address] 54131- 6571 October, Asthma exacerbation J45.901 and Current chronic use of inhaled steroid Z79.51 [facility] [address] [place] [address] 68375- 0538 October, Uncomplicated severe persistent asthma J45.50 [place] [place] [id number] [place] [address] 34398- 6817 October, Allergic rhinitis due to pollen J30.1 [place] [facility] [id number] [place] [address] 19127- 5928 Oct, [place] [address] 31883- 8616 Oct, Asthma exacerbation J45.901 and Sputum production R05 [place] [address] 87510- 7882 Oct, Asthma exacerbation J45.901 [place] [address] 22835- 5929 Oct, ADD (attention deficit disorder) F90.0 [place] [place] [address] 99977- 3819 Oct, ADD (attention deficit disorder) F90.0 [place] [address] 80535- 8858 Aug, Allergic rhinitis due to pollen J30.1 [facility] [id number] [place] [address] 03366- 7742 Aug, Atypical pneumonia J18.9 [place] [place] [address] 69496- 1798 Aug, Allergic rhinitis due to pollen J30.1 [facility] [address] [place] [address] 71551- 9384 Aug, Acquired hypothyroidism E03.9 [place] [address] 18520- 6134 Aug, Multiple food allergies Z91.018 ; Elevated blood pressure reading R03.0 and Anaphylaxis, subsequent encounter T78.2XXD [place] [address] [id number] Aug, [place] [address] 48155- 8421 Aug, Anaphylaxis, initial encounter T78.2XXA [place] [id number] [place] [address] 43960- 2549 16 Aug, 2016 Allergic rhinitis due to pollen J30.1 [facility] [id number] [place] [address] 43157- 3470 16 Aug, 2016 Dental examination Z01.20 [facility] [id number] [place] [address] 43684- 3845 09 Aug, 2016 Allergic rhinitis due to pollen J30.1 [facility] [place] [id number] [place] [address] 62193- 4086 06 Aug, 2016 Acquired hypothyroidism E03.9 and Pure hypercholesterolemia E78.00 [place] [address] 30111- 7998 Aug, ADD (attention deficit disorder) F90.0 ; Acquired hypothyroidism E03.9 and Pure hypercholesterolemia E78.00 [place] [address] [place] [address] 22629- 2366 Aug, Asthma exacerbation J45.901 [place] [place] [address] [place] [address] 62355- 5284 Jul, Allergic rhinitis due to pollen J30.1 [facility] [id number] [place] [address] 49373- 8735 Jul, Allergic rhinitis due to pollen J30.1 [place] [place] [id number] [place] [address] 09910- 1104 Jul, [place] [address] [place] [address] 03866- 2337 Jul, Allergic rhinitis due to pollen J30.1 [facility] [place] [address] [place] [address] 63704- 2489 Jul, 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 and ADD ( attention deficit disorder) F90.0 [place] [address] 41803- 9918 Jul, 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 and ADD ( attention deficit disorder) F90.0 [facility] [id number] [place] [address] 68675- 4838 Jul, [facility] [id number] [place] [address] 86291- 5467 Jun, Allergic rhinitis due to pollen J30.1 [facility] [address] 01999- 4473 Jun, Allergic rhinitis due to pollen J30.1 [facility] [id number] [place] [address] 08979- 7720 Jun, [place] [address] 76085- 6240 May, Allergic rhinitis due to pollen J30.1 [place] [address] 61890- 5578 May, Allergic rhinitis due to pollen J30.1 [facility] [id number] [place] [address] 95232- 1787 Apr, Allergic rhinitis due to pollen J30.1 [facility] [address] 08687- 8895 Apr, Allergic rhinitis due to pollen J30.1 [place] [address] 70220- 8654 Apr, Encounter for immunization Z23 [facility] [id number] [place] [address] 86620- 6097 Apr, [facility] [address] 66674- 5210 Mar, Allergic rhinitis due to pollen J30.1 [place] [id number] [place] [address] 81245- 1653 Mar, Multiple allergies Z88.9 [facility] [address] [place] [address]- 8239 Mar, Candidal vaginitis B37.3 [facility] [id number] [place] [address] 03454- 5827 Mar, Allergic rhinitis due to pollen J30.1 [facility] [address] [place] [address] 13372- 3258 Jan, Asthma exacerbation J45.901 ; Fatigue, unspecified type R53.83 and Community acquired pneumonia J18.9 [facility] [address] [place] [address] [id number] Jan, Encounter for dental examination Z01.20 [facility] [id number] [place] [address] 65425- 6101 Jan, Allergic rhinitis due to pollen J30.1 [facility] [id number] [place] [address] 19949- 7686 Dec, Allergic rhinitis due to pollen J30.1 [facility] [id number] [place] [address] 51804- 6359 Dec, [facility] [id number] [place] [address] 98190- 0754 Dec, Allergic rhinitis due to pollen J30.1 [facility] [id number] [place] [address] 56635- 6237 Dec, [facility] [id number] [place] [address] 98972- 9042 Dec, [facility] [id number] [place] [address] 63263- 8603 Dec, [facility] [id number] [place] [address] 61545- 0578 Dec, Allergic rhinitis due to pollen J30.1 [facility] [id number] [place] [address] 09625- 2087 Dec, [facility] [id number] [address]- 4498 Dec, [facility] [id number] [place] [address] 83049- 0996 Dec, Allergic rhinitis due to pollen J30.1 [facility] [id number] [place] [address] 72725- 8757 October, Allergic rhinitis due to pollen J30.1 [facility] [id number] [place] [address] 97777- 8915 October, Allergic rhinitis due to pollen J30.1 [place] [id number] [place] [address] 13416- 7426 October, [place] [id number] [place] [address] 41700- 4503 October, [place] [id number] [place] [address] 81522- 9582 October, ADD (attention deficit disorder) F90.0 ; Major depressive disorder, recurrent episode, mild F33.0 and Uncomplicated severe persistent asthma J45.50 [place] [address] [place] [address] 63897- 6731 Oct, Allergic rhinitis due to pollen J30.1 [place] [address] [place] [address] 59800- 2295 Oct, ADD (attention deficit disorder) F90.0 [place] [address] [place] [address] 18046- 6466 Oct, Allergic rhinitis due to pollen 477.0 [place] [id number] [place] [address] 21525- 5310 Aug, Allergic rhinitis due to pollen 477.0 [place] [address] [place] [address] 53398- 4360 Aug, 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 [place] [id number] [place] [address] 87970- 3164 Aug, [facility] [address] [place] [address] 88297- 4200 Aug, Allergic rhinitis due to pollen 477.0 [facility] [id number] [place] [address] 655889- 0847 Aug, Allergic rhinitis due to pollen 477.0 [facility] [id number] [place] [address] 28775- 7079 Aug, Allergic rhinitis due to pollen 477.0 [facility] [id number] [place] [address] 77093- 2016 Aug, Exposure to influenza Z20.828 [facility] [id number] [place] [address] [id number] Aug, Encounter for dental examination and cleaning without abnormal findings Z01.20 [place] [id number] [place] [address] 21331- 9026 Aug, Allergic rhinitis due to pollen J30.1 [place] [id number] [place] [address] 44652- 9481 Aug, [facility] [id number] [place] [address] 38137- 5989 Aug, 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 [place] [id number] [place] [address] 74165- 4596 Jul, [facility] [id number] [place] [address] 04516- 6363 Jul, Allergic rhinitis due to pollen 477.0 [place] [id number] [place] [address] 04211- 0405 Jul, [facility] [id number] [place] [address] 36488- 3380 Jul, Allergic rhinitis due to pollen 477.0 [facility] [id number] [place] [address] 08461- 2375 Jun, ADD (attention deficit disorder) F90.0 ; Acquired hypothyroidism E03.9 ; PCOS (polycystic ovarian syndrome) E28.2 ; Polyarthralgia M25.50 and On stimulant medication Z79.899 [place] [address] 61841- 0231 16 Apr, 2015 Encounter for immunization Z23 [place] [address] 09071- 7886 16 Mar, 2015 Allergic rhinitis due to pollen 477.0 [place] [address] 93097- 7217 Mar, Influenza vaccine administered V04.81 [place] [address] 9[address] Mar, [place] [address] [address] Jan, Allergic rhinitis due to pollen 477.0 [place] [address] [address] Jan, Allergic rhinitis due to pollen 477.0 [place] [address] [address] Jan, Allergic rhinitis due to pollen 477.0 [facility] [address] [id number] Jan, Dental examination V72.2 [place] [address] [address] Dec, Allergic rhinitis due to pollen 477.0 [place] [address] [address] October, [place] [address] [address] Oct, [place] [address] [address] Oct, [facility] [place] [facility] [address] [id number] [place] [address] Aug, [facility] [place] [facility] [address] [id number] [place] [address] Aug, [facility] [place] [facility] [address] [id number] [place] [address] Aug, [facility] [place] [facility] [address] [id number] [place] [address] Aug, [facility] [place] [facility] [address] [id number] [place] [address] Aug, [facility] [place] [facility] [address] [id number] [place] [address] Aug, [facility] [place] [facility] [address] [id number] [place] [address] Aug, [facility] [place] [facility] [address] [id number] [place] [address] Aug, [facility] [place] [facility] [address] [id number] [place] [address] Jul, [facility] [place] [facility] [address] [id number] [place] [address] Jul, [facility] [place] [facility] [address] [id number] [place] [address] Jul, [facility] [place] [facility] [address] [id number] [place] [address] Jul, [facility] [place] [facility] [address] [id number] [place] [address] Jul, [facility] [place] [facility] [address] [id number] [place] [address] Jul, [facility] [place] [facility] [address] [id number] [place] [address] Jul, [facility] [place] [facility] [address] [id number] [place] [address] Jul, [facility] [place] [facility] [address] [id number] [place] [address] Jul, [facility] [place] [facility] [address] [id number] [place] [address] Jul, [facility] [place] [facility] [address] [id number] [place] [address] Jul, [facility] [place] [facility] [address] [id number] [place] [address] Jun, [facility] [place] [facility] [address] [id number] [place] [address] Jun, [facility] [place] [facility] [address] [id number] [place] [address] Jun, [facility] [place] [facility] [address] [id number] [place] [address] Jun, [facility] [place] [facility] [address] [id number] [place] [address] Jun, [facility] [place] [facility] [address] [id number] [place] [address] Jun, [facility] [place] [facility] [address] [id number] [place] [address] May, [facility] [place] [facility] [address] [id number] [place] [address] May, [facility] [place] [facility] [address] [id number], [place] [address] May, [facility] [place] [facility] [address] [id number] [place] [address] 7651 May, [facility] [place] [facility] [address] [id number] [place] [address] 4418 May, [facility] [place] [facility] [address] [id number] [place] [address] 7294 May, [facility] [place] [facility] [address] [id number] [place] [address]- 3792 Apr, [facility] [place] [facility] [address] [id number] [place] [address] 8866 Apr, [facility] [place] [facility] [address] [id number] [place] [address] 2546 Mar, [facility] [place] [facility] [address] [id number] [place] [address] 2546 Mar, [facility] [place] [facility] [address] [id number] [place] [address] 2544 Mar, [facility] [place] [facility] [address] [id number] [place] [address] 4994 Mar, [facility] [place] [facility] [address] [id number] [place] [address]- 5059 Mar, [facility] [place] [facility] [address] [id number] [place] [address] 6711 Mar, [facility] [place] [facility] [address] [id number] [place] [address]- 7[address] Jan, [facility] [place] [facility] [address] [id number] [place] [address]- 0430 Jan, [facility] [place] [facility] [address] [id number] [place] [address]- 4123 Jan, [facility] [place] [facility] [address] [id number] [place] [address]- 2051 Jan, [facility] [place] [facility] [address] [id number] [place] [address]- 2876 Jan, [facility] [place] [facility] [address] [id number] [place] [address]- 2546 Jan, [facility] [place] [facility] [address] [id number] [place] [address]- 8633 Dec, [facility] [place] [facility] [address] [id number] [place] [address]- 5247 Dec, [facility] [place] [facility] [address] [id number] [place] [address]- 3545 Dec, [facility] [place] [facility] [address] [id number] [place] [address]- 5360 Dec, [facility] [place] [facility] [address] [id number] [place] [address]- 0990 Dec, [facility] [place] [facility] [address] [id number] [place] [address]- 7197 Dec, [facility] [place] [facility] [address] [id number] [place] [address]- 2870 Dec, [facility] [place] [facility] [address] [id number] [place] [address]- 3306 Dec, [facility] [place] [facility] [address] [id number] [place] [address]- 8293 Dec, [facility] [place] [facility] [address] [id number] [place] [address]- 4850 Dec, [facility] [place] [facility] [address] [id number] [place] [address]- 8069 Dec, [facility] [place] [facility] [address] [id number] [place] [address]- 1488 Dec, [facility] [place] [facility] [address] [id number], [place] [address] 6[address] Dec, [facility] [place] [facility] [address] [id number], [place] [address] 18[address] Dec, [facility] [place] [facility] [address] [id number] [place] [address]- 5606 Dec, [facility] [place] [facility] [address] [id number] [place] [address]- 0510 Dec, [facility] [place] [facility] [address] [id number] [place] [address] 9676 October, [facility] [place] [facility] [address] [id number] [place] [address] October, [facility] [address] [id number] [place] [address]- 9491 October, [facility] [place] [facility] [address] [id number] [place] [address]- 3521 October, [facility] [address] [id number] [place] [address]- 8176 October, [facility] [place] [facility] [address] [id number] [place] [address]- 0680 October, [facility] [place] [facility] [address] [id number] [place] [address] 8184 Oct, [facility] [place] [facility] [address] [id number] [place] [address] 3370 Oct, [facility] [place] [facility] [address] [id number] [place] [address] 1657 Oct, [facility] [place] [facility] [address] [id number] [place] [address] 6356 Oct, [facility] [place] [facility] [address] [id number] [place] [address]- 8027 Oct, [facility] [address] [id number] [place] [address]- 6822 Oct, [facility] [place] [facility] [address] [id number] [place] [address]- 3000 Aug, [facility] [place] [facility] [address] [id number] [place] [address]- 6607 Aug, [facility] [place] [facility] [address] [id number] [place] [address]- 5622 Aug, [facility] [place] [facility] [address] [id number] [place] [address]- 2852 Aug, [facility] [place] [facility] [address] [id number] [place] [address]- 8333 Jul, [facility] [address] [id number] [place] [address]- 3628 Jul, [facility] [place] [facility] [address] [id number] [place] [address]- 5594 Jul, [facility] [place] [facility] [address] [id number] [place] [address]- 2317 Jul, [facility] [place] [facility] [address] [id number] [place] [address]- 5897 Jun, [facility] [address] [id number] [place] [address]- 8224 Jun, [facility] [place] [facility] [address] [id number] [place] [address]- 3490 Jun, [facility] [place] [facility] [address] [id number] [place] [address]- 7994 Jun, [facility] [address] [id number] [place] [address]- 6369 Jun, [facility] [place] [facility] [address] [id number] [place] [address]- 4870 Jun, [facility] [place] [facility] [address] [id number] [place] [address]- 0953 Jun, [facility] [place] [facility] [address] [id number], [place] [address]- 9616 Jun, [facility] [place] [facility] [address] [id number], [place] [address]- 6238 Jun, [facility] [place] [facility] [address] [id number] [place] [address]- 5146 Jun, [facility] [place] [facility] [address] [id number] [place] [address]- 5956 Jun, [facility] [place] [facility] [address] [id number], [place] [address] May, [facility] [place] [facility] [address] [id number], [place] [address]- 3843 May, [facility] [place] [facility] [address] [id number] [place] [address]- 2243 May, [facility] [place] [facility] [address] [id number] [place] [address]- 5370 May, [facility] [place] [facility] [address] [facility] [id number] [place] [address]- 0460 May, [facility] [place] [facility] [address] [id number] [place] [address]- 2530 May, [facility] [place] [facility] [address] [id number] [place] [address]- 2056 May, [facility] [place] [facility] [address] [id number] [place] [address]- 0238 Apr, [facility] [place] [facility] [address] [facility] [id number] [place] [address]- 5187 Apr, [facility] [place] [facility] [address] [id number] [place] [address]- 0006 18 Apr, 2013 [facility] [place] [facility] [address] [facility] [id number] [place] [address]- 1589 Apr, [facility] [place] [facility] [address] [facility] [id number] [place] [address]- 6327 27 Mar, 2013 [facility] [place] [facility] [address] [id number] [place] [address] 2544 26 Mar, 2012 [facility] [place] [facility] [address] [id number], [place] [address]- 2540 26 Mar, 2012 [facility] [place] [facility] [address] [id number] [place] [address]- 0990 23 Sep, 2012 [facility] [place] [facility] [address] [facility] [id number] [place] [address]- 2532 04 Sep, 2012 [facility] [place] [facility] [address] [facility] [id number] [place] [address]- 9103 03 Sep, 2012 [facility] [place] [facility] [address] [id number] [place] [address]- 7608 Jan, [facility] [place] [facility] [address] [id number] [place] [address]- 3538 Jan, [facility] [place] [facility] [address] [id number] [place] [address]- 1332 Jan, [facility] [place] [facility] [address] [id number] [place] [address]- 8868 Jan, [facility] [place] [facility] [address] [id number] [place] [address]- 3098 Jan, [facility] [place] [facility] [address] [id number] [place] [address]- 7953 Dec, [facility] [place] [facility] [address] [id number] [place] [address]- 4896 Dec, [facility] [place] [facility] [address] [id number] [place] [address]- 3914 Dec, [facility] [place] [facility] [address] [id number] [place] [address]- 9035 Dec, [facility] [place] [facility] [address] [id number] [place] [address]- 1515 Dec, [facility] [place] [facility] [address] [id number] [place] [address]- 8352 Dec, [facility] [place] [facility] [address] [id number] [place] [address]- 7302 Dec, [facility] [place] [facility] [address] [id number] [place] [address]- 9542 Dec, [facility] [place] [facility] [address] [id number] [place] [address]- 4972 October, [facility] [place] [facility] [address] [id number] [place] [address]- 0896 October, [facility] [place] [facility] [address] [id number] [place] [address]- 3768 October, [facility] [place] [facility] [address] [id number] [place] [address]- 7426 Oct, [facility] [place] [facility] [address] [id number] [place] [address]- 5429 Oct, [facility] [place] [facility] [address] [id number] [place] [address]- 8224 Oct, [facility] [place] [facility] [address] [id number] [place] [address]- 5366 Oct, [facility] [place] [facility] [address] [id number] [place] [address]- 0264 Aug, [facility] [place] [facility] [address] [id number] [place] [address]- 5698 Aug, [facility] [place] [facility] [address] [id number] [place] [address]- 8892 Aug, [facility] [place] [facility] [address] [id number] [place] [address]- 3788 Jul, [facility] [place] [facility] [address] [id number] [place] [address]- 5698 May, [facility] [place] [facility] [address] [id number], [place] [address]- 0868 May, [facility] [place] [facility] [address] [id number], [place] [address]- 8861 Apr, [facility] [place] [facility] [address] [id number], [place] [address]- 5238 Apr, [facility] [place] [facility] [address] [id number] [place] [address]- 8259 Apr, [facility] [place] [facility] [address] [id number], [place] [address]- 5027 Apr, [facility] [place] [facility] [address] [id number] [place] [address]- 5214 Apr, [facility] [place] [facility] [address] [id number] [place] [address]- 2342 Apr, [facility] [place] [facility] [address] [id number] [place] [address]- 1056 Apr, [facility] [place] [facility] [address] [id number] [place] 4617 Apr, [facility] [place] [facility] [address] [id number] [place] [address]- 9440 Apr, [facility] [place] [facility] [address] [id number] [place] [address]- 1958 Apr, [facility] [place] [facility] [address] [id number] [place] [address]- 8255 Apr, [facility] [place] [facility] [address] [id number] [place] [address]- 6271 Apr, [facility] [place] [facility] [address] [id number] [place] [address]- 8448 Mar, [facility] [place] [facility] [address] [id number] [place] [address]- 6131 Jan, [facility] [place] [facility] [address] [id number] [place] [address]- 8983 Dec, [facility] [place] [facility] [address] [id number] [place] [address]- 8175 October, [facility] [place] [facility] [address] [id number] [place] [address]- 5316 Oct, [facility] [place] [facility] [address] [id number] [place] [address]- 8172 Oct, [facility] [place] [facility] [address] [id number] [place] [address]- 4906 Oct, [facility] [place] [facility] [address] [id number] [place] [address]- 3076 Aug, [facility] [place] [facility] [address] [id number] [place] [address]- 6405 Aug, [facility] [id number], [place] [address]- 8774 Aug, [facility] [id number], [place] [address]- 6088 Aug, [facility] [id number], [place] [address]- 8614 Aug, [facility] [id number], [place] [address]- 7935 Aug, [facility] [id number], [place] [address]- 9815 Jun, [facility] [id number] 3980 Apr, [facility] [id number], [place] [address]- 8416 Jun, [facility] [id number], [place] [address]- 6424 Jun, [facility] [id number], [place] [address]- 7225 May, [facility] [id number] 1874 May, [facility] [id number], [place] [address]- 7193 Apr, [facility] [address] [id number] [address]64 Apr, IMMUNIZATIONS No Known Immunizations SOCIAL HISTORY Never Assessed REASON FOR VISIT Wheezing, congestion PLAN OF CARE VITAL SIGNS MEDICATIONS Medication Instructions Dosage Frequency Start Date End Date Duration Status Augmentin 875-125 MG Orally every 12 hrs 1 tablet 12h Oct,Oct 10 day(s) Active PredniSONE 20 mg Orally Once a day 3 tablet 24h Oct, Oct, 07 days Active RESULTS No Results PROCEDURES No [...] History see above surgeries Hospitalization History Anaphylactic shock-[facility] 08/23/16
--- OUTSIDE RECORDS SUMMARY | 2018-07-18 07:27 | XMS REPORT ---
Author Author BRANDY SAGAR [facility] Address [address] [place] [address] Care Team Providers Care Cigar Patcher Name Role Phone BRANDYTEZ HOYTHANY Unavailable PROBLEMS Type Condition ICD9-CM Code GOY69-LU Code Onset Dates Condition Status SNOMED Code Problem Migraine with aura and without status migrainosus, not intractable G43.109 Active 6449659 Problem PCOS (polycystic ovarian syndrome) E28.2 Active 30506568 Problem Uncomplicated severe persistent asthma J45.50 Active 905151021 Problem Severe persistent asthma with exacerbation J45.51 Active 397347412 Problem Other elevated white blood cell (WBC) count D72.828 Active 093843043 Problem Multiple food allergies Z91.018 Active 539846901 Problem Pure hypercholesterolemia E78.00 Active 733581065 Problem Current chronic use of inhaled steroid Z79.51 Active 315143977 Problem Asthma exacerbation J45.901 Active 943409569 Problem ADD (attention deficit disorder) F90.0 Active 593730205 Problem Allergic rhinitis due to pollen J30.1 Active 96347406 Problem Vitamin D deficiency E55.9 Active 74100589 Problem Major depressive disorder, recurrent episode, mild F33.0 Active 021329648 Problem Acquired hypothyroidism E03.9 Active 746581084 Problem Gastroesophageal reflux disease without esophagitis K21.9 Active 995441307 ALLERGIES No Information ENCOUNTERS Encounter Location Date Diagnosis [facility] [address] [address] Dec, Allergic rhinitis due to pollen J30.1 [facility] [address] [address] Dec, [facility] [address] [address] Dec, Allergic rhinitis due to pollen J30.1 [facility] [id number] [place] [address] 57597- 7559 Dec, ADD (attention deficit disorder) F90.0 [facility] [address] [address]- [address]83 Dec, ADD (attention deficit disorder) F90.0 and Uncomplicated severe persistent asthma J45.50 [facility] [id number] [place] [address] 78389- 2702 Dec, Allergic rhinitis due to pollen J30.1 [facility] [id number] [place] [address] 37851- 8841 Dec, [facility] [address] [address]140- 6842 October, Allergic rhinitis due to pollen J30.1 [facility] [id number] [place] [address] 88115- 6925 October, Allergic rhinitis due to pollen J30.1 [facility] [id number] [place] [address] 99598- 4289 Oct, [facility] [id number] [place] [address] 07709- 4678 Oct, Allergic rhinitis due to pollen J30.1 [facility] [id number] [place] [address] 69475- 2343 Oct, [facility] [id number] [place] [address] 56218- 9946 Oct, Allergic rhinitis due to pollen J30.1 [facility] [id number] [place] [address] 16708- 8282 Oct, Severe persistent asthma with exacerbation J45.51 and Pneumonia due to Haemophilus influenzae, unspecified laterality, unspecified part of lung J14 [facility] [id number] [place] [address] 95303- 2744 Oct, ADD (attention deficit disorder) F90.0 [facility] [address] [place] [address] 140[address] Aug, Haemophilus influenzae infection A49.2 [facility] [id number] [place] [address] 64906- 7500 Aug, Cough productive of purulent sputum R05 [facility] [id number] [place] [address] 33185- 0994 Aug, [facility] [address] 48382- 0418 Aug, Pulmonary congestion R09.89 [facility] [address] 39605- 4301 Aug, Severe persistent asthma with exacerbation J45.51 ; Hiatal hernia K44.9 and Gastroesophageal reflux disease without esophagitis K21.9 [facility] [id number] [place] [address] 93719- 0713 Aug, Other elevated white blood cell (WBC) count D72.828 [facility] [id number] [place] [address] 86916- 6837 Aug, Uncomplicated severe persistent asthma J45.50 [facility] [address] 55062- 9414 Aug, Pure hypercholesterolemia E78.00 ; Uncomplicated severe persistent asthma J45.50 and Acquired hypothyroidism E03.9 [facility] [id number] [place] [address] 84233- 2819 Aug, Acquired hypothyroidism E03.9 ; Pure hypercholesterolemia E78.00 and Uncomplicated severe persistent asthma J45.50 [facility] [id number] [place] [address] 27779- 1183 15 Aug, 2017 Allergic rhinitis due to pollen J30.1 [facility] [id number] [place] [address] 95051- 4694 08 Aug, 2017 Allergic rhinitis due to pollen J30.1 [facility] [address] 87271- 6379 Aug, [facility] [id number] [place] [address] [id number] Jul, Pharyngitis, unspecified etiology J02.9 and Lymphadenopathy R59.1 [facility] [address] 42932- 6042 Jul, ADD (attention deficit disorder) F90.0 [facility] [address] 48183- 1229 Jul, Allergic rhinitis due to pollen J30.1 [facility] [address] 66466- 5739 Jul, Dental examination Z01.20 [facility] [address] 22186- 2224 Jun, Cough productive of purulent sputum R05 [facility] [address] 51212- 2637 Jun, Allergic rhinitis due to pollen J30.1 [facility] [address] 24212- 6137 Jun, [facility] [address] 13470- 6380 Jun, Allergic rhinitis due to pollen J30.1 [facility] [id number] [place] [address] 05014- 9327 Jun, Allergic rhinitis due to pollen J30.1 [facility] [id number] [place] [address] 28063- 2755 May, Allergic rhinitis due to pollen J30.1 [facility] [address] 54845- 0743 May, Pneumonia due to Haemophilus influenzae, unspecified laterality, unspecified part of lung J14 [facility] [address] 70703- 7161 May, Allergic rhinitis due to pollen J30.1 [facility] [address] [place] [address] 14200- 1196 May, Other adverse food reactions, not elsewhere classified, initial encounter T78.1XXA and Pneumonia due to Haemophilus influenzae, unspecified laterality, unspecified part of lung J14 [facility] [id number] [place] [address] 13353- 5326 13 May, 2017 Pneumonia due to Haemophilus influenzae, unspecified laterality, unspecified part of lung J14 [facility] [id number] [place] [address] 59060- 7378 10 May, 2017 Multiple food allergies Z91.018 ; Uncomplicated severe persistent asthma J45.50 ; Cough productive of purulent sputum R05 and Uses central nervous system stimulants F15.90 [facility] [address] 39523- 6732 Apr, Allergic rhinitis due to pollen J30.1 [facility] [id number] [place] [address] 77395- 4773 Apr, Allergic rhinitis due to pollen J30.1 [facility] [id number] [place] [address] 13508- 7670 Apr, Allergic rhinitis due to pollen J30.1 [facility] [id number] [place] [address] 44040- 8979 Apr, ADD (attention deficit disorder) F90.0 [facility] [id number] [place] [address] 06123- 1831 28 Mar, 2017 Allergic rhinitis due to pollen J30.1 [facility] [id number] [place] [address] 78518- 3230 21 Mar, 2017 Encounter for immunization Z23 [facility] [id number] [place] [address] 67799- 1555 19 Mar, 2017 [facility] [id number] [place] [address] 99732- 6509 14 Mar, 2017 Allergic rhinitis due to pollen J30.1 [facility] [address] [place] [address] 51790- 6475 Mar, Allergic rhinitis due to pollen J30.1 [facility] [id number] [place] [address] 35724- 5468 Jan, Allergic rhinitis due to pollen J30.1 [facility] [id number] [place] [address] 41340- 0143 Jan, Allergic rhinitis due to pollen J30.1 [facility] [id number] [place] [address] 19644- 3768 Dec, Uncomplicated severe persistent asthma J45.50 [facility] [id number] [place] [address] 88562- 6214 Dec, Allergic rhinitis due to pollen J30.1 [facility] [id number] [place] [address] 54544- 8317 Dec, Allergic rhinitis due to pollen J30.1 [facility] [id number] [place] [address] 32155- 8188 Dec, Allergic rhinitis due to pollen J30.1 [facility] [id number] [place] [address] 71080- 1359 Dec, ADD (attention deficit disorder) F90.0 [place] [id number] [place] [address] 86379- 3073 Dec, Allergic rhinitis due to pollen J30.1 [facility] [id number] [place] [address] 01049- 5601 Dec, Visit for TB skin test Z11.1 and Screening for tuberculosis Z11.1 [place] [id number] [place] [address] 57359- 3393 Dec, Uncomplicated severe persistent asthma J45.50 ; Palpitations R00.2 ; Pericardial effusion (noninflammatory) I31.3 and Chest discomfort R07.89 [facility] [address] [address]- 2325 Dec, Allergic rhinitis due to pollen J30.1 [facility] [id number] [place] [address] 14652- 5598 Dec, Chronic cough R05 [facility] [id number] [place] [address] 87449- 0953 Dec, [facility] [id number] [place] [address] 35380- 5925 Dec, Allergic rhinitis due to pollen J30.1 [facility] [id number] [place] [address] 69171- 0866 Dec, Allergic rhinitis due to pollen J30.1 [facility] [id number] [place] [address] 96754- 6450 Dec, Chronic cough R05 [facility] [id number] [place] [address] 42583- 0474 October, Allergic rhinitis due to pollen J30.1 [facility] [id number] [place] [address] 56930- 2656 October, Allergic rhinitis due to pollen J30.1 [facility] [address] [place] [address] 65468- 2888 October, [facility] [id number] [place] [address] 40107- 1302 October, Asthma exacerbation J45.901 [facility] [id number] [place] [address] 12735- 9585 October, Asthma exacerbation J45.901 and Current chronic use of inhaled steroid Z79.51 [facility] [id number] [place] [address] 74308- 5159 October, Uncomplicated severe persistent asthma J45.50 [facility] [id number] [place] [address] 08439- 4344 October, Allergic rhinitis due to pollen J30.1 [facility] [id number] [place] [address] 61779- 0892 Oct, [facility] [address] 84740- 8500 Oct, Asthma exacerbation J45.901 and Sputum production R05 [facility] [address] 94988- 8126 Oct, Asthma exacerbation J45.901 [facility] [address] 51453- 1765 Oct, ADD (attention deficit disorder) F90.0 [facility] [address] 30692- 0290 Oct, ADD (attention deficit disorder) F90.0 [facility] [address] 64606- 4689 Aug, Allergic rhinitis due to pollen J30.1 [facility] [id number] [place] [address] 94380- 7304 Aug, Atypical pneumonia J18.9 [facility] [address] 09006- 4589 Aug, Allergic rhinitis due to pollen J30.1 [facility] [id number] [place] [address] 12257- 7915 Aug, Acquired hypothyroidism E03.9 [facility] [address] 39917- 2280 Aug, Multiple food allergies Z91.018 ; Elevated blood pressure reading R03.0 and Anaphylaxis, subsequent encounter T78.2XXD [place] [address] [id number] Aug, [facility] [address] 39948- 8497 Aug, Anaphylaxis, initial encounter T78.2XXA [facility] [id number] [place] [address] 53327- 9812 16 Aug, 2016 Allergic rhinitis due to pollen J30.1 [facility] [id number] [place] [address] 73937- 4258 16 Aug, 2016 Dental examination Z01.20 [facility] [id number] [place] [address] 71834- 5610 09 Aug, 2016 Allergic rhinitis due to pollen J30.1 [facility] [id number] [place] [address] 39653- 8475 06 Aug, 2016 Acquired hypothyroidism E03.9 and Pure hypercholesterolemia E78.00 [facility] [address] 06630- 6181 Aug, ADD (attention deficit disorder) F90.0 ; Acquired hypothyroidism E03.9 and Pure hypercholesterolemia E78.00 [facility] [id number] [place] [address] 19645- 5099 Aug, Asthma exacerbation J45.901 [facility] [id number] [place] [address] 55942- 9688 Jul, Allergic rhinitis due to pollen J30.1 [facility] [id number] [place] [address] 45360- 3999 Jul, Allergic rhinitis due to pollen J30.1 [facility] [id number] [place] [address] 67704- 0896 Jul, [facility] [id number] [place] [address] 12090- 8548 Jul, Allergic rhinitis due to pollen J30.1 [facility] [id number] [place] [address] 12873- 7630 Jul, 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 and ADD ( attention deficit disorder) F90.0 [facility] [address] 09423- 5368 Jul, 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 and ADD ( attention deficit disorder) F90.0 [facility] [id number] [place] [address] 20759- 6146 Jul, [facility] [id number] [place] [address] 29831- 5023 Jun, Allergic rhinitis due to pollen J30.1 [facility] [address] 98438- 7216 Jun, Allergic rhinitis due to pollen J30.1 [facility] [id number] [place] [address] 54286- 7679 Jun, [facility] [address] 65093- 4108 May, Allergic rhinitis due to pollen J30.1 [facility] [address] 88893- 0689 May, Allergic rhinitis due to pollen J30.1 [facility] [id number] [place] [address] 77663- 8271 Apr, Allergic rhinitis due to pollen J30.1 [facility] [address] 37212- 9067 Apr, Allergic rhinitis due to pollen J30.1 [facility] [address] 78196- 4592 Apr, Encounter for immunization Z23 [facility] [id number] [place] [address] 27591- 7821 Apr, [facility] [address] 95101- 0552 Mar, Allergic rhinitis due to pollen J30.1 [facility] [id number] [place] [address] 32412- 9184 Mar, Multiple allergies Z88.9 [facility] [address] [place] [address]- 9690 Mar, Candidal vaginitis B37.3 [facility] [id number] [place] [address] 21115- 7790 Mar, Allergic rhinitis due to pollen J30.1 [facility] [address] [place] [address] 63288- 7451 Jan, Asthma exacerbation J45.901 ; Fatigue, unspecified type R53.83 and Community acquired pneumonia J18.9 [facility] [address] [place] [address] [id number] Jan, Encounter for dental examination Z01.20 [facility] [id number] [place] [address] 41480- 5754 Jan, Allergic rhinitis due to pollen J30.1 [facility] [id number] [place] [address] 20298- 1557 Dec, Allergic rhinitis due to pollen J30.1 [facility] [id number] [place] [address] 83748- 0898 Dec, [facility] [id number] [place] [address] 74797- 9136 Dec, Allergic rhinitis due to pollen J30.1 [facility] [id number] [place] [address] 14639- 8267 Dec, [facility] [id number] [place] [address] 21231- 5574 Dec, [facility] [id number] [place] [address] 13515- 2762 Dec, [facility] [id number] [place] [address] 43749- 0685 Dec, Allergic rhinitis due to pollen J30.1 [facility] [id number] [place] [address] 26890- 1007 Dec, [facility] [id number] [address]- 6010 Dec, [facility] [id number] [place] [address] 01938- 1756 Dec, Allergic rhinitis due to pollen J30.1 [facility] [id number] [place] [address] 29482- 8870 October, Allergic rhinitis due to pollen J30.1 [facility] [id number] [place] [address] 84900- 9742 October, Allergic rhinitis due to pollen J30.1 [facility] [id number] [place] [address] 33029- 2877 October, [facility] [id number] [place] [address] 28806- 0752 October, [facility] [id number] [place] [address] 79871- 4318 October, ADD (attention deficit disorder) F90.0 ; Major depressive disorder, recurrent episode, mild F33.0 and Uncomplicated severe persistent asthma J45.50 [facility] [id number] [place] [address] 69441- 3120 Oct, Allergic rhinitis due to pollen J30.1 [place] [address] [place] [address] 60009- 3380 Oct, ADD (attention deficit disorder) F90.0 [facility] [address] [place] [address] 13088- 4555 Oct, Allergic rhinitis due to pollen 477.0 [facility] [place] [id number] [place] [address] 08509- 0972 Aug, Allergic rhinitis due to pollen 477.0 [facility] [id number] [place] [address] 40038- 0612 Aug, 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 [facility] [id number] [place] [address] 25460- 2878 Aug, [facility] [address] [place] [address] 19051- 6452 Aug, Allergic rhinitis due to pollen 477.0 [facility] [id number] [place] [address] 792341- 7135 Aug, Allergic rhinitis due to pollen 477.0 [facility] [id number] [place] [address] 21595- 9169 Aug, Allergic rhinitis due to pollen 477.0 [facility] [id number] [place] [address] 62829- 7454 Aug, Exposure to influenza Z20.828 [facility] [id number] [place] [address] [id number] Aug, Encounter for dental examination and cleaning without abnormal findings Z01.20 [place] [id number] [place] [address] 32620- 8821 Aug, Allergic rhinitis due to pollen J30.1 [facility] [id number] [place] [address] 90721- 3162 Aug, [facility] [id number] [place] [address] 55646- 0707 Aug, 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 [facility] [id number] [place] [address] 03773- 7394 Jul, [facility] [id number] [place] [address] 40843- 1377 Jul, Allergic rhinitis due to pollen 477.0 [facility] [id number] [place] [address] 79682- 7358 Jul, [facility] [id number] [place] [address] 99029- 7889 Jul, Allergic rhinitis due to pollen 477.0 [facility] [id number] [place] [address] 78868- 6054 Jun, ADD (attention deficit disorder) F90.0 ; Acquired hypothyroidism E03.9 ; PCOS (polycystic ovarian syndrome) E28.2 ; Polyarthralgia M25.50 and On stimulant medication Z79.899 [place] [address] [address] 16 Apr, 2015 Encounter for immunization Z23 [place] [address] [address] 16 Mar, 2015 Allergic rhinitis due to pollen 477.0 [place] [address] [address] Mar, Influenza vaccine administered V04.81 [place] [address] [address]- [address] Mar, [place] [address] [address] Jan, Allergic rhinitis due to pollen 477.0 [place] [address] [address] Jan, Allergic rhinitis due to pollen 477.0 [place] [address] [address] Jan, Allergic rhinitis due to pollen 477.0 [facility] [address] [id number] Jan, Dental examination V72.2 [place] [address] [address] Dec, Allergic rhinitis due to pollen 477.0 [place] [address] [address] October, [place] [address] [address] Oct, [place] [address] [address] Oct, [facility] [place] [facility] [address] [id number] [place] [address] Aug, [facility] [place] [facility] [address] [id number] [place] [address] Aug, [facility] [place] [facility] [address] [id number] [place] [address] Aug, [facility] [place] [facility] [address] [id number] [place] [address] Aug, [facility] [place] [facility] [address] [id number] [place] [address] Aug, [facility] [place] [facility] [address] [id number] [place] [address] Aug, [facility] [place] [facility] [address] [id number] [place] [address] Aug, [facility] [place] [facility] [address] [id number] [place] [address] Aug, [facility] [place] [facility] [address] [id number] [place] [address] Jul, [facility] [place] [facility] [address] [id number] [place] [address] Jul, [facility] [place] [facility] [address] [id number] [place] [address] Jul, [facility] [place] [facility] [address] [id number] [place] [address] Jul, [facility] [place] [facility] [address] [id number] [place] [address] Jul, [facility] [place] [facility] [address] [id number] [place] [address] Jul, [facility] [place] [facility] [address] [id number] [place] Jul, [facility] [place] [facility] [address] [id number] [place] [address] Jul, [facility] [place] [facility] [address] [id number] [place] [address] Jul, [facility] [place] [facility] [address] [id number] [place] [address] Jul, [facility] [place] [facility] [address] [id number] [place] [address] Jul, [facility] [place] [facility] [address] [id number] [place] [address] Jun, [facility] [place] [facility] [address] [id number] [place] [address] Jun, [facility] [place] [facility] [address] [id number] [place] [address]841 Jun, [facility] [place] [facility] [address] [id number] [place] [address] 1696 Jun, [facility] [place] [facility] [address] [id number] [place] [address] 2889 Jun, [facility] [place] [facility] [address] [id number] [place] [address] 9[address] Jun, [facility] [place] [facility] [address] [id number] [place] [address] 4314 May, [facility] [place] [facility] [address] [id number] [place] [address] 6341 May, [facility] [place] [facility] [address] [id number] [address] May, [facility] [place] [facility] [address] [id number] [place] [address] 6662 May, [facility] [place] [facility] [address] [id number] [place] [address] 7541 May, [facility] [place] [facility] [address] [id number] [place] [address] 3315 May, [facility] [place] [facility] [address] [id number] [place] [address]- 6464 Apr, [facility] [place] [facility] [address] [id number] [place] [address]- 3676 Apr, [facility] [place] [facility] [address] [id number] [place] [address] 2546 Mar, [facility] [place] [facility] [address] [id number] [place] [address] 2546 Mar, [facility] [place] [facility] [address] [id number] [place] [address] 2540 Mar, [facility] [place] [facility] [address] [id number] [place] [address]- 7628 Mar, [facility] [place] [facility] [address] [id number] [place] [address]- 4286 Mar, [facility] [place] [facility] [address] [id number] [place] [address]- 4396 Mar, [facility] [place] [facility] [address] [id number] [place] [address]- 9529 Jan, [facility] [place] [facility] [address] [id number] [place] [address]- 1204 Jan, [facility] [place] [facility] [address] [id number] [place] [address]- 1107 Jan, [facility] [place] [facility] [address] [id number] [place] [address]- 0260 Jan, [facility] [place] [facility] [address] [id number] [place] [address]- 6783 Jan, [facility] [place] [facility] [address] [id number] [place] [address]- 2546 Jan, [facility] [place] [facility] [address] [id number] [place] [address]- 5874 Dec, [facility] [place] [facility] [address] [id number] [place] [address]- 5777 Dec, [facility] [place] [facility] [address] [id number] [place] [address]- 7172 Dec, [facility] [place] [facility] [address] [id number] [place] [address]- 9427 Dec, [facility] [place] [facility] [address] [id number] [place] [address]- 2547 Dec, [facility] [place] [facility] [address] [id number] [place] [address]- 3631 Dec, [facility] [place] [facility] [address] [id number] [place] [address]- 0568 Dec, [facility] [place] [facility] [address] [id number] [place] [address]- 7100 Dec, [facility] [place] [facility] [address] [id number] [place] [address]- 2011 Dec, [facility] [place] [facility] [address] [id number] [place] [address]- 7667 Dec, [facility] [place] [facility] [address] [id number] [place] [address]- 4488 Dec, [facility] [place] [facility] [address] [id number] [place] [address]- 1368 Dec, [facility] [place] [facility] [address] [id number] [address] 78[address] Dec, [facility] [place] [facility] [address] [id number] [address]- 9841 Dec, [facility] [place] [facility] [address] [id number] [place] [address]- 9612 Dec, [facility] [place] [facility] [address] [id number] [place] [address]- 9435 Dec, [facility] [place] [facility] [address] [id number] [place] [address]- 9027 October, [facility] [place] [facility] [address] [id number] [place] [address]- 1450 October, [facility] [address] [id number] [place] [address]- 8565 October, [facility] [place] [facility] [address] [id number] [place] [address]- 7029 October, [facility] [address] [id number] [place] [address]- 8476 October, [facility] [place] [facility] [address] [id number] [place] [address]- 4568 October, [facility] [place] [facility] [address] [id number] [place] [address]- 5531 Oct, [facility] [place] [facility] [address] [id number] [place] [address]- 9156 Oct, [facility] [place] [facility] [address] [id number] [place] [address]- 7092 Oct, [facility] [place] [facility] [address] [id number] [place] [address]- 6852 Oct, [facility] [place] [facility] [address] [id number] [place] [address]- 6731 Oct, [facility] [address] [id number] [place] [address]- 5086 Oct, [facility] [place] [facility] [address] [id number] [place] [address]- 2763 Aug, [facility] [place] [facility] [address] [id number] [place] [address]- 9299 Aug, [facility] [place] [facility] [address] [id number] [place] [address]- 3002 Aug, [facility] [place] [facility] [address] [id number] [place] [address]- 0342 Aug, [facility] [place] [facility] [address] [id number] [place] [address]- 3706 Jul, [facility] [address] [id number] [place] [address]- 7342 Jul, [facility] [place] [facility] [address] [id number] [place] [address]- 6212 Jul, [facility] [place] [facility] [address] [id number] [place] [address]- 1933 Jul, [facility] [place] [facility] [address] [id number] [place] [address]- 3842 Jun, [facility] [address] [id number] [place] [address]- 1155 Jun, [facility] [place] [facility] [address] [id number] [place] [address]- 7139 Jun, [facility] [place] [facility] [address] [id number] [place] [address]- 2377 Jun, [facility] [address] [id number] [place] [address]- 6671 Jun, [facility] [place] [facility] [address] [id number] [place] [address]- 4935 Jun, [facility] [place] [facility] [address] [id number] [place] [address]- 5162 Jun, [facility] [place] [facility] [address] [id number] [address]- [address]282 Jun, [facility] [place] [facility] [address] [id number] [place] [address]- 3614 Jun, [facility] [place] [facility] [address] [id number] [place] [address]- 8804 Jun, [facility] [place] [facility] [address] [id number] [place] [address]- 4476 Jun, [facility] [place] [facility] [address] [id number] [address]- 1427 May, [facility] [place] [facility] [address] [id number] [place] [address]- 7446 May, [facility] [place] [facility] [address] [id number] [place] [address]- 7387 May, [facility] [place] [facility] [address] [id number] [place] [address]- 2137 May, [facility] [place] [facility] [address] [facility] [id number] [place] [address]- 0778 May, [facility] [place] [facility] [address] [id number] [place] [address]- 2284 May, [facility] [place] [facility] [address] [id number] [place] [address]- 8795 May, [facility] [place] [facility] [address] [id number] [place] [address]- 9716 Apr, [facility] [place] [facility] [address] [facility] [id number] [place] [address]- 3945 Apr, [facility] [place] [facility] [address] [id number] [place] [address]- 3994 18 Apr, 2013 [facility] [place] [facility] [address] [facility] [id number] [place] [address]- 2886 Apr, [facility] [place] [facility] [address] [facility] [id number] [place] [address]- 1415 27 Mar, 2013 [facility] [place] [facility] [address] [id number] [place] [address] 2542 26 Mar, 2012 [facility] [place] [facility] [address] [id number] [place] [address]- 2549 26 Mar, 2012 [facility] [place] [facility] [address] [id number] [place] [address]- 6153 23 Sep, 2012 [facility] [place] [facility] [address] [facility] [id number] [place] [address]- 9619 04 Sep, 2012 [facility] [place] [facility] [address] [facility] [id number] [place] [address]- 3368 03 Sep, 2012 [facility] [place] [facility] [address] [id number] [place] [address]- 6894 Jan, [facility] [place] [facility] [address] [id number] [place] [address]- 2900 Jan, [facility] [place] [facility] [address] [id number] [place] [address]- 0107 Jan, [facility] [place] [facility] [address] [id number] [place] [address]- 7547 Jan, [facility] [place] [facility] [address] [id number] [place] [address]- 4781 Jan, [facility] [place] [facility] [address] [id number] [place] [address]- 0288 Dec, [facility] [place] [facility] [address] [id number] [place] [address]- 4909 Dec, [facility] [place] [facility] [address] [id number] [place] [address]- 9089 Dec, [facility] [place] [facility] [address] [id number] [place] [address]- 5772 Dec, [facility] [place] [facility] [address] [id number] [place] [address]- 8505 Dec, [facility] [place] [facility] [address] [id number] [place] [address]- 4105 Dec, [facility] [place] [facility] [address] [id number] [place] [address]- 4546 Dec, [facility] [place] [facility] [address] [id number] [place] [address]- 7229 Dec, [facility] [place] [facility] [address] [id number] [place] [address]- 7862 October, [facility] [place] [facility] [address] [id number] [place] [address]- 9446 October, [facility] [place] [facility] [address] [id number] [place] [address]- 8863 October, [facility] [place] [facility] [address] [id number] [place] [address]- 0368 Oct, [facility] [place] [facility] [address] [id number] [place] [address]- 5618 Oct, [facility] [place] [facility] [address] [id number] [place] [address]- 8969 Oct, [facility] [place] [facility] [address] [id number] [place] [address]- 9761 Oct, [facility] [place] [facility] [address] [id number] [place] [address]- 1462 Aug, [facility] [place] [facility] [address] [id number] [place] [address]- 1114 Aug, [facility] [place] [facility] [address] [id number] [place] [address]- 8803 Aug, [facility] [place] [facility] [address] [id number] [place] [address]- 4909 Jul, [facility] [place] [facility] [address] [id number] [place] [address]- 3325 May, [facility] [place] [facility] [address] [id number] [address]- 2523 May, [facility] [place] [facility] [address] [id number] [place] [address]- 6802 Apr, [facility] [place] [facility] [address] [id number] [place] [address]- 6581 Apr, [facility] [place] [facility] [address] [id number] [place] [address]- 4159 Apr, [facility] [place] [facility] [address] [id number] [place] [address]- 2369 Apr, [facility] [place] [facility] [address] [id number] [place] [address]- 6891 Apr, [facility] [place] [facility] [address] [id number] [place] [address]- 5782 Apr, [facility] [place] [facility] [address] [id number] [place] [address]- 5062 Apr, [facility] [place] [facility] [address] [id number] [place] [address] Apr, [facility] [place] [facility] [address] [id number] [place] [address]- 1462 Apr, [facility] [place] [facility] [address] [id number] [place] [address]- 8344 Apr, [facility] [place] [facility] [address] [id number] [place] [address]- 3913 Apr, [facility] [place] [facility] [address] [id number] [place] [address]- 3365 Apr, [facility] [place] [facility] [address] [id number] [place] [address]- 7483 Mar, [facility] [place] [facility] [address] [id number] [place] [address]- 8228 Jan, [facility] [place] [facility] [address] [id number] [place] [address]- 7932 Dec, [facility] [place] [facility] [address] [id number] [place] [address]- 8177 October, [facility] [place] [facility] [address] [id number] [place] [address]- 1484 Oct, [facility] [place] [facility] [address] [id number] [place] [address]- 8811 Oct, [facility] [place] [facility] [address] [id number] [place] [address]- 9103 Oct, [facility] [place] [facility] [address] [id number] [place] [address]- 4236 Aug, [facility] [place] [facility] [address] [id number] [place] [address]- 1291 Aug, [facility] [id number] [address]- 5159 Aug, [facility] [id number] 2292 Aug, [facility] [id number] [address]01 Aug, [facility] [id number] [address] Aug, [facility] [id number] [address]185 Jun, [facility] [id number] [place] [address]- 8310 Apr, [facility] [id number] [place] [address]- 2724 Jun, [facility] [id number] [place] [address] 082793- 1631 Jun, [facility] [id number] [address]- 3237 May, [facility] [id number] [address]- 5783 May, [facility] [id number] [address]- 8687 Apr, [facility] [id number] [address]- 5416 Apr, IMMUNIZATIONS No Known Immunizations SOCIAL HISTORY Never Assessed REASON FOR VISIT Controlled Medication Refill PLAN OF CARE VITAL SIGNS MEDICATIONS Medication Instructions Dosage Frequency Start Date End Date Duration Status Concerta 54 MG Orally Once a day 1 tablet in the morning 24h Oct, 90 days Active RESULTS No Results PROCEDURES [...] History see above surgeries Hospitalization History Anaphylactic shock-[facility] 08/23/16
--- OUTSIDE RECORDS SUMMARY | 2018-07-18 07:28 | XMS REPORT ---
Author Author BRANDY SAGAR [facility] Address [address] [place] [address] Care Team Providers Care Job Printer Apprentice Name Role Phone BRANDYTEZ HOYTHANY Unavailable PROBLEMS Type Condition ICD9-CM Code [id number] Code Onset Dates Condition Status SNOMED Code Problem Migraine with aura and without status migrainosus, not intractable G43.109 Active 9884450 Problem PCOS (polycystic ovarian syndrome) E28.2 Active 36613721 Problem Uncomplicated severe persistent asthma J45.50 Active 781563219 Problem Severe persistent asthma with exacerbation J45.51 Active 415375359 Problem Other elevated white blood cell (WBC) count D72.828 Active 550710505 Problem Multiple food allergies Z91.018 Active 547558916 Problem Pure hypercholesterolemia E78.00 Active 726014613 Problem Current chronic use of inhaled steroid Z79.51 Active 196593690 Problem Asthma exacerbation J45.901 Active 163006176 Problem ADD (attention deficit disorder) F90.0 Active 028720373 Problem Allergic rhinitis due to pollen J30.1 Active 69173523 Problem Vitamin D deficiency E55.9 Active 52765896 Problem Major depressive disorder, recurrent episode, mild F33.0 Active 525214994 Problem Acquired hypothyroidism E03.9 Active 613823507 Problem Gastroesophageal reflux disease without esophagitis K21.9 Active 947673122 ALLERGIES No Information ENCOUNTERS Encounter Location Date Diagnosis [facility], [place] [address] [facility] [id number] [address] Dec, Allergic rhinitis due to pollen J30.1 [facility], [place] [address], [place] [address] Dec, ADD (attention deficit disorder) F90.0 [facility], [place] [address] [id number] [address] Dec, ADD (attention deficit disorder) F90.0 and Uncomplicated severe persistent asthma J45.50 [facility], [place] [id number] [place] [address] 93367- 5266 Dec, Allergic rhinitis due to pollen J30.1 [facility], [place] [id number] [place] [address] 21568- 4275 Dec, [facility], [place] [address] [address]135- 5968 October, Allergic rhinitis due to pollen J30.1 [facility], [place] [id number] [place] [address] 20230- 2770 October, Allergic rhinitis due to pollen J30.1 [place] [id number] [place] [address] 02194- 5023 Oct, [place] [id number] [place] [address] 76049- 6362 Oct, Allergic rhinitis due to pollen J30.1 [facility], [place] [id number] [place] [address] 93852- 1336 Oct, [place] [address] 92106- 6731 Oct, Allergic rhinitis due to pollen J30.1 [place] [id number] [place] [address] 50702- 6152 Oct, Severe persistent asthma with exacerbation J45.51 and Pneumonia due to Haemophilus influenzae, unspecified laterality, unspecified part of lung J14 [place] [id number] [place] [address] 52591- 3786 Oct, ADD (attention deficit disorder) F90.0 [place] [address] 08330- 2318 Aug, Haemophilus influenzae infection A49.2 [place] [id number] [place] [address] 64451- 4201 Aug, Cough productive of purulent sputum R05 [place] [id number] [place] [address] 51233- 5745 Aug, [place] [address] 13878- 8002 Aug, Pulmonary congestion R09.89 [place] [address] 18039- 3580 Aug, Severe persistent asthma with exacerbation J45.51 ; Hiatal hernia K44.9 and Gastroesophageal reflux disease without esophagitis K21.9 [place] [address] 75356- 6268 Aug, Other elevated white blood cell (WBC) count D72.[address] 94324- 2382 Aug, Uncomplicated severe persistent asthma J45.[address] 84637- 0741 Aug, Pure hypercholesterolemia E78.00 ; Uncomplicated severe persistent asthma J45.50 and Acquired hypothyroidism E03.[address] 50609- 9563 Aug, Acquired hypothyroidism E03.9 ; Pure hypercholesterolemia E78.00 and Uncomplicated severe persistent asthma J45.50 [place] [address] 16438- 5382 15 Aug, 2017 Allergic rhinitis due to pollen J30.1 [place] [address] 18235- 5436 Aug, Allergic rhinitis due to pollen J30.1 [place] [address] 56892- 1905 Aug, [facility] [address] [id number] Jul, Pharyngitis, unspecified etiology J02.9 and Lymphadenopathy R59.1 [place] [address] [place] [address]- 7779 Jul, ADD (attention deficit disorder) F90.0 [place] [address] 25263- 8514 Jul, Allergic rhinitis due to pollen J30.1 [place] [address] 03290- 2590 Jul, Dental examination Z01.20 [place] [address] 88904- 5253 Jun, Cough productive of purulent sputum R05 [place] [address] 07940- 6698 Jun, Allergic rhinitis due to pollen J30.1 [place] [address] 59257- 2799 Jun, [place] [address] 51094- 6694 Jun, Allergic rhinitis due to pollen J30.1 [place] [id number] [place] [address] 68571- 7894 Jun, Allergic rhinitis due to pollen J30.1 [place] [id number] [place] [address] 23283- 7582 May, Allergic rhinitis due to pollen J30.1 [place] [id number] [place] [address] 91093- 5144 May, Pneumonia due to Haemophilus influenzae, unspecified laterality, unspecified part of lung J14 [place] [id number] [place] [address] 12109- 5267 May, Allergic rhinitis due to pollen J30.1 [place] [id number] [place] [address] 77242- 1950 May, Other adverse food reactions, not elsewhere classified, initial encounter T78.1XXA and Pneumonia due to Haemophilus influenzae, unspecified laterality, unspecified part of lung J14 [place] [id number] [place] [address] 16159- 0595 13 May, 2017 Pneumonia due to Haemophilus influenzae, unspecified laterality, unspecified part of lung J14 [place] [id number] [place] [address] 55513- 0149 10 May, 2017 Multiple food allergies Z91.018 ; Uncomplicated severe persistent asthma J45.50 ; Cough productive of purulent sputum R05 and Uses central nervous system stimulants F15.90 [place] [address] 59703- 8687 Apr, Allergic rhinitis due to pollen J30.1 [place] [address] 38229- 7161 Apr, Allergic rhinitis due to pollen J30.1 [place] [address] 10258- 6057 Apr, Allergic rhinitis due to pollen J30.1 [place] [id number] [place] [address] 11972- 6577 Apr, ADD (attention deficit disorder) F90.0 [place] [address] 12080- 2699 28 Mar, 2017 Allergic rhinitis due to pollen J30.1 [place] [id number] [place] [address] 63404- 3172 Mar, Encounter for immunization Z23 [place] [address] 49107- 0104 19 Mar, 2017 [place] [id number] [place] [address] 68696- 5449 14 Mar, 2017 Allergic rhinitis due to pollen J30.1 [place] [id number] [place] [address] 93622- 4703 07 Mar, 2017 Allergic rhinitis due to pollen J30.1 [place] [address] 28181- 5351 Jan, Allergic rhinitis due to pollen J30.1 [place] [address] [place] [address] 48086- 2340 Jan, Allergic rhinitis due to pollen J30.1 [place] [id number] [place] [address] 79637- 8817 Dec, Uncomplicated severe persistent asthma J45.50 [place] [id number] [place] [address] 91865- 7365 Dec, Allergic rhinitis due to pollen J30.1 [place] [id number] [place] [address] 68204- 6616 Dec, Allergic rhinitis due to pollen J30.1 [place] [id number] [place] [address] 64005- 7502 Dec, Allergic rhinitis due to pollen J30.1 [place] [id number] [place] [address] 81005- 1062 Dec, ADD (attention deficit disorder) F90.0 [place] [id number] [place] [address] 68591- 8301 Dec, Allergic rhinitis due to pollen J30.1 [place] [id number] [place] [address] 28270- 3675 Dec, Visit for TB skin test Z11.1 and Screening for tuberculosis Z11.1 [place] [id number] [place] [address] 35398- 7888 Dec, Uncomplicated severe persistent asthma J45.50 ; Palpitations R00.2 ; Pericardial effusion (noninflammatory) I31.3 and Chest discomfort R07.89 [place] [id number] [place] [address] 38312- 2388 Dec, Allergic rhinitis due to pollen J30.1 [place] [id number] [place] [address] 85209- 9676 Dec, Chronic cough R05 [place] [address], [place] [address]- 9305 Dec, [place] [id number] [place] [address] 43791- 1866 Dec, Allergic rhinitis due to pollen J30.1 [facility], [place] [id number] [place] [address] 23794- 0353 Dec, Allergic rhinitis due to pollen J30.1 [facility], [place] [id number] [place] [address] 18791- 7768 Dec, Chronic cough R05 [place] [id number] [place] [address] 16819- 5990 October, Allergic rhinitis due to pollen J30.1 [place] [id number] [place] [address] 31526- 7966 October, Allergic rhinitis due to pollen J30.1 [place] [id number] [place] [address] 05129- 0988 October, [place] [id number] [place] [address] 80138- 7323 October, Asthma exacerbation J45.901 [place] [id number] [place] [address] 81473- 7973 October, Asthma exacerbation J45.901 and Current chronic use of inhaled steroid Z79.51 [place] [id number] [place] [address] 40541- 2159 October, Uncomplicated severe persistent asthma J45.50 [place] [address] [place] [address] 04434- 8514 October, Allergic rhinitis due to pollen J30.1 [place] [id number] [place] [address] 15846- 5380 Oct, [place] [id number] [place] [address] 13871- 4078 Oct, Asthma exacerbation J45.901 and Sputum production R05 [place] [address] [place] [address] 15068- 2426 Oct, Asthma exacerbation J45.901 [place] [id number] [place] [address] 42267- 6157 Oct, ADD (attention deficit disorder) F90.0 [place] [address] 835935- 0318 Oct, ADD (attention deficit disorder) F90.0 [place] [id number] [place] [address] 16764- 5975 Aug, Allergic rhinitis due to pollen J30.1 [place] [id number] [place] [address] 75227- 9833 Aug, Atypical pneumonia J18.9 [place] [address] 13742- 5615 Aug, Allergic rhinitis due to pollen J30.1 [place] [id number] [place] [address] 14724- 1237 Aug, Acquired hypothyroidism E03.9 [place] [address] 86918- 8646 Aug, Multiple food allergies Z91.018 ; Elevated blood pressure reading R03.0 and Anaphylaxis, subsequent encounter T78.2XXD [place] [id number] [place] [address] [id number] Aug, [place] [id number] [place] [address] 30485- 6378 Aug, Anaphylaxis, initial encounter T78.2XXA [place] [address] 45604- 8626 Aug, Allergic rhinitis due to pollen J30.1 [place] [id number] [place] [address] 41945- 7474 Aug, Dental examination Z01.20 [facility], [place] [id number] [place] [address] 55097- 5473 09 Aug, 2016 Allergic rhinitis due to pollen J30.1 [facility], [place] [id number] [place] [address] 46383- 1819 06 Aug, 2016 Acquired hypothyroidism E03.9 and Pure hypercholesterolemia E78.00 [place] [address] 20395- 0828 Aug, ADD (attention deficit disorder) F90.0 ; Acquired hypothyroidism E03.9 and Pure hypercholesterolemia E78.00 [place] [address] 84094- 1483 Aug, Asthma exacerbation J45.901 [place] [address] 91377- 3904 Jul, Allergic rhinitis due to pollen J30.1 [place] [address] 05554- 5069 Jul, Allergic rhinitis due to pollen J30.1 [place] [id number] [place] [address] 95257- 2788 Jul, [place] [id number] [place] [address] 95871- 2643 Jul, Allergic rhinitis due to pollen J30.1 [place] [id number] [place] [address] 52600- 7914 Jul, Other senior living (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 and ADD ( attention deficit disorder) F90.0 [place] [address] 44709- 9853 Jul, 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 and ADD ( attention deficit disorder) F90.0 [place] [id number] [place] [address] 85333- 1162 Jul, [place] [address] [place] [address]- 2561 Jun, Allergic rhinitis due to pollen J30.1 [facility], [place] [id number] [place] [address] 76097- 4008 Jun, Allergic rhinitis due to pollen J30.1 [facility], [place] [id number] [place] [address] 69622- 5681 Jun, [facility], [place] [id number] [place] [address] 11774- 4941 May, Allergic rhinitis due to pollen J30.1 [facility], [place] [id number] [place] [address] 20567- 2131 May, Allergic rhinitis due to pollen J30.1 [facility], [place] [id number] [place] [address] 48694- 2512 Apr, Allergic rhinitis due to pollen J30.1 [place] [id number] [place] [address] 48415- 0147 Apr, Allergic rhinitis due to pollen J30.1 [facility], [place] [id number] [place] [address] 62633- 2448 Apr, Encounter for immunization Z23 [facility], [place] [id number] [place] [address] 86277- 5627 Apr, [place] [id number] [place] [address] 13004- 9879 Mar, Allergic rhinitis due to pollen J30.1 [facility], [place] [id number] [place] [address] 52034- 5287 Mar, Multiple allergies Z88.9 [place] [id number] [place] [address] 02077- 8019 12 Mar, 2016 Candidal vaginitis B37.3 [facility], [place] [address] [place] [address] 34542- 5550 08 Mar, 2016 Allergic rhinitis due to pollen J30.1 [facility], [place] [address], [place] [address]- 5895 Jan, Asthma exacerbation J45.901 ; Fatigue, unspecified type R53.83 and Community acquired pneumonia J18.9 [facility] [address] [id number] Jan, Encounter for dental examination Z01.20 [facility], [place] [id number] [place] [address] 64733- 5920 Jan, Allergic rhinitis due to pollen J30.1 [facility], [place] [address] [place] [address] 38526- 2317 Dec, Allergic rhinitis due to pollen J30.1 [facility], [place] [id number] [place] [address] 02874- 8975 Dec, [facility], [place] [id number] [place] [address] 86936- 5675 Dec, Allergic rhinitis due to pollen J30.1 [facility], [place] [address] [place] [address] 02675- 0289 Dec, [facility] [place] [id number] [place] [address] 68014- 3845 Dec, [facility] [place] [address] [place] [address] 65672- 1418 Dec, [facility], [place] [address] [place] [address] 09480- 2585 Dec, Allergic rhinitis due to pollen J30.1 [facility], [place] [address] [place] [address] 67565- 7553 Dec, [facility], [place] [id number] [place] [address] 75175- 2161 Dec, [facility] [place] [address] [place] [address] 28998- 8923 Dec, Allergic rhinitis due to pollen J30.1 [facility], [place] [id number] [place] [address] 33286- 8751 October, Allergic rhinitis due to pollen J30.1 [place] [id number] [place] [address] 64367- 8820 October, Allergic rhinitis due to pollen J30.1 [place] [id number] [place] [address] 00895- 2798 October, [place] [id number] [place] [address] 43193- 5126 October, [place] [id number] [place] [address] 11565- 8579 October, ADD (attention deficit disorder) F90.0 ; Major depressive disorder, recurrent episode, mild F33.0 and Uncomplicated severe persistent asthma J45.50 [place] [id number] [place] [address] 81662- 7443 Oct, Allergic rhinitis due to pollen J30.1 [place] [id number] [place] [address] 19525- 0086 Oct, ADD (attention deficit disorder) F90.0 [place] [id number] [place] [address] 48502- 9486 Oct, Allergic rhinitis due to pollen 477.0 [place] [id number] [place] [address] 45130- 3679 Aug, Allergic rhinitis due to pollen 477.0 [place] [id number] [place] [address] 02842- 9448 Aug, 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 [place] [id number] [place] [address] 55030- 7391 Aug, [place] [id number] [place] [address] 35705- 0431 Aug, Allergic rhinitis due to pollen 477.0 [place] [id number] [place] [address] 88835- 4010 Aug, Allergic rhinitis due to pollen 477.0 [facility] [place] [address] [place] [address] 95758- 9748 Aug, Allergic rhinitis due to pollen 477.0 [facility], [place] [id number] [place] [address] 82125- 7134 Aug, Exposure to influenza Z20.828 [facility] [id number] [place] [address] [id number] 19 Aug, 2015 Encounter for dental examination and cleaning without abnormal findings Z01.20 [place] [id number] [place] [address] 59945- 0368 18 Aug, 2015 Allergic rhinitis due to pollen J30.1 [place] [id number] [place] [address] 34551- 5781 Aug, [place] [address] 04170- 1127 Aug, 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 [place] [id number] [place] [address] 94304- 0117 Jul, [place] [id number] [place] [address] 03274- 9968 Jul, Allergic rhinitis due to pollen 477.0 [place] [id number] [place] [address] 96549- 2712 Jul, [place] [id number] [place] [address] 46666- 7031 Jul, Allergic rhinitis due to pollen 477.0 [place] [id number] [place] [address] 62511- 2689 Jun, ADD (attention deficit disorder) F90.0 ; Acquired hypothyroidism E03.9 ; PCOS (polycystic ovarian syndrome) E28.2 ; Polyarthralgia M25.50 and On stimulant medication Z79.899 [place] [id number] [place] [address] 46621- 2327 16 Apr, 2015 Encounter for immunization Z23 [facility] [place] [id number] [place] [address] 09099- 4656 16 Mar, 2015 Allergic rhinitis due to pollen 477.0 [facility], [place] [address] [place] [address] 80326- 9122 14 Mar, 2015 Influenza vaccine administered V04.81 [facility] [place] [id number] [place] [address] 32387- 3139 Mar, [facility] [place] [id number] [place] [address] 75246- 1318 Jan, Allergic rhinitis due to pollen 477.0 [facility] [place] [id number] [place] [address] 28346- 2434 Jan, Allergic rhinitis due to pollen 477.0 [facility] [place] [id number] [place] [address] 71794- 6448 Jan, Allergic rhinitis due to pollen 477.0 [facility] [id number] [place] [address] [id number] Jan, Dental examination V72.2 [facility] [place] [id number] [place] [address] 72684- 6461 Dec, Allergic rhinitis due to pollen 477.0 [facility] [place] [address] [place] [address] 83034- 3770 October, [facility] [place] [id number] [place] [address] 50747- 6705 Oct, [facility] [place] [address] [place] [address] 22355- 1923 Oct, [facility] [place] [address] [place] [address] 96722- 8147 Aug, [facility] [place] [address] [place] [address] Aug, [facility], [place] [id number] [address] Aug, [facility] [place] [facility] [address] [id number] [place] [address] Aug, [facility] [place] [facility] [address] [id number] [place] [address] Aug, [facility] [place] [facility] [address] [id number] [place] [address] Aug, [facility] [place] [facility] [address] [id number] [place] [address] Aug, [facility] [place] [facility] [address] [id number] [place] [address] Aug, [facility] [place] [facility] [address] [id number] [place] [address] Jul, [facility] [place] [facility] [address] [id number] [place] [address] Jul, [facility] [place] [facility] [address] [id number] [place] [address]- [address] Jul, [facility] [place] [facility] [address] [id number] [place] [address] Jul, [facility] [place] [facility] [address] [id number] [place] [address] Jul, [facility] [place] [facility] [address] [id number] [place] [address] Jul, [facility] [place] [facility] [address] [id number] [place] [address] Jul, [facility] [place] [facility] [address] [id number] [place] [address] Jul, [facility] [place] [facility] [address] [id number] [place] [address] Jul, [facility] [place] [facility] [address] [id number] [place] [address] Jul, [facility] [place] [facility] [address] [id number] [place] [address]- [address] Jul, [facility] [place] [facility] [address] [id number] [place] [address] Jun, [facility] [place] [facility] [address] [id number] [place] [address] Jun, [facility] [place] [facility] [address] [id number] [place] [address]- [address] Jun, [facility] [place] [facility] [address] [id number] [place] [address]- [address] Jun, [facility] [place] [facility] [address] [id number] [place], [place] [address] Jun, [facility] [place] [facility] [address] [id number] [place] [address] Jun, [facility] [place] [facility] [address] [id number] [place] [address] 1751 May, [facility] [place] [facility] [address] [id number] [place] [address] 6531 May, [facility] [place] [facility] [address] [id number] [place] [address]- 5865 May, [facility] [place] [facility] [address] [id number], [place] [address] May, [facility] [place] [facility] [address] [id number], [place] [address] 65[address] May, [facility] [place] [facility] [address] [id number] [place] [address]- 8871 May, [facility] [place] [facility] [address] [id number], [place] [address] Apr, [facility] [place] [facility] [address] [id number] [place] [address]200 Apr, [facility] [place] [facility] [address] [id number] [place] [address]- 4778 30 Mar, 2013 [facility] [place] [facility] [address] [id number] [place] [address]- [address] 30 Mar, 2013 [facility] [place] [facility] [address] [id number] [place] [address] 2546 Mar, [facility] [place] [facility] [address] [id number] [place] [address] 2546 Mar, [facility] [place] [facility] [address] [id number] [place] [address] 2546 Mar, [facility] [place] [facility] [address] [id number] [place] [address] 2338 Mar, [facility] [place] [facility] [address] [id number] [place] [address]- 1514 Jan, [facility] [place] [facility] [address] [id number] [place] [address]- 4527 Jan, [facility] [place] [facility] [address] [id number] [place] [address]- 8174 Jan, [facility] [place] [facility] [address] [id number] [place] [address]- 8724 Jan, [facility] [place] [facility] [address] [id number] [place] [address]- 2632 Jan, [facility] [place] [facility] [address] [id number] [place] [address]- 6305 Jan, [facility] [place] [facility] [address] [id number] [place] [address]- 1803 Dec, [facility] [place] [facility] [address] [id number] [place] [address]- 8755 Dec, [facility] [place] [facility] [address] [id number] [place] [address]- 6369 Dec, [facility] [place] [facility] [address] [id number] [place] [address]- 6417 Dec, [facility] [place] [facility] [address] [id number] [place] [address]- 5403 Dec, [facility] [place] [facility] [address] [id number] [place] [address]- 0471 Dec, [facility] [place] [facility] [address] [id number] [place] [address]- 9619 Dec, [facility] [place] [facility] [address] [id number] [place] [address]- 0570 Dec, [facility] [place] [facility] [address] [id number] [place] [address]- 3441 Dec, [facility] [place] [facility] [address] [id number] [place] [address]- 2374 Dec, [facility] [place] [facility] [address] [id number] [place] [address]- 4081 Dec, [facility] [place] [facility] [address] [id number] [place] [address]- 6542 Dec, [facility] [place] [facility] [address] [id number] [place] [address]- 3244 Dec, [facility] [place] [facility] [address] [id number] [place] [address]- 9104 Dec, [facility] [place] [facility] [address] [id number] [place] [address]- 6608 Dec, [facility] [place] [facility] [address] [id number] [place] [address]- 2692 Dec, [facility] [place] [facility] [address] [id number] [place] [address]- 3912 October, [facility] [place] [facility] [address] [id number] [place] [address]- 3531 October, [facility] [place] [facility] [address] [id number] [place] [address]- 0372 October, [facility] [place] [facility] [address] [id number] [place] [address]- 2665 October, [facility] [place] [facility] [address] [id number] [place] [address]- 6471 October, [facility] [place] [facility] [address] [id number] [place] [address]- 7093 October, [facility] [place] [facility] [address] [id number] [place] [address]- 3565 Oct, [facility] [place] [facility] [address] [id number] [place] [address]- 4151 Oct, [facility] [place] [facility] [address] [id number] [place] [address]- 0969 Oct, [facility] [place] [facility] [address] [id number] [place] [address]- 5716 Oct, [facility] [place] [facility] [address] [id number] [place] [address]- 6239 Oct, [facility] [place] [facility] [address] [id number] [place] [address]- 8829 Oct, [facility] [place] [facility] [address] [id number] [place] [address]- 0717 Aug, [facility] [place] [facility] [address] [id number] [place] [address]- 5969 Aug, [facility] [place] [facility] [address] [id number] [place] [address]- 3505 Aug, [facility] [place] [facility] [address] [id number] [place] [address]- 5398 Aug, [facility] [place] [facility] [address] [id number] [place] [address]- 0089 Jul, [facility] [place] [facility] [address] [id number] [place] [address]- 6957 Jul, [facility] [place] [facility] [address] [id number] [place] [address]- 4812 Jul, [facility] [place] [facility] [address] [id number] [place] [address]- 2446 15 Jul, 2013 [facility] [address] [id number] [place] [address]- 8292 Jun, [facility] [address] [id number] [place] [address]- 9446 Jun, [facility] [address] [id number] [place] [address]- 1912 Jun, [facility] [address] [id number] [place] [address]- 9396 Jun, [facility] [address] [id number] [place] [address]- 2448 Jun, [facility] [address] [id number] [place] [address] Jun, [facility] [address] [id number] [place] [address]- 3998 Jun, [facility] [address] [id number] [place] [address]- 1293 Jun, [facility] [address] [id number] [place] [address]- 8990 Jun, [facility] [address] [id number] [place] [address]- 6303 Jun, [facility] [place] [facility] [address] [id number] [place] [address]- 8402 Jun, [facility] [address] [id number] [place] [address]- 1310 19 May, 2013 [facility] [place] [facility] [address] [id number] [place] [address]- 9991 May, [facility] [place] [facility] [address] [id number] [place] [address]- 2546 May, [facility] [place] [facility] [address] [id number] [place] [address]- 8131 May, [facility] [place] [facility] [address] [id number] [place] [address]- 3504 May, [facility] [place] [facility] [address] [id number] [place] [address]- 8179 May, [facility] [place] [facility] [address] [id number] [place] [address]- 1449 May, [facility] [place] [facility] [address] [id number] [place] [address]- 1626 Apr, [facility] [place] [facility] [address] [id number] [place] [address]- 8712 Apr, [facility] [place] [facility] [address] [id number] [place] [address]- 1879 Apr, [facility] [place] [facility] [address] [id number] [place] [address]- 0971 Apr, [facility] [place] [facility] [address] [id number] [place] [address]- 9626 27 Mar, 2013 [facility] [place] [facility] [address] [id number] [place] [address]- 6799 Mar, [facility] [place] [facility] [address] [id number] [place] [address]- 6532 Mar, [facility] [place] [facility] [address] [id number] [place] [address]- 1180 23 Mar, 2013 [facility] [place] [facility] [address] [id number], [place] [address]- 6948 04 Mar, 2013 [facility] [place] [facility] [address] [id number] [place] [address]- 2934 Mar, [facility] [place] [facility] [address] [id number] [place] [address]- 1785 30 Jan, 2013 [facility] [place] [facility] [address] [id number] [place] [address]- 4712 Jan, [facility] [place] [facility] [address] [id number] [place] [address]- 5527 Jan, [facility] [address] [id number] [place] [address]- 2957 Jan, [facility] [place] [facility] [address] [id number] [place] [address]- 2766 Jan, [facility] [place] [facility] [address] [id number] [place] [address]- 4768 Dec, [facility] [place] [facility] [address] [id number] [place] [address]- 2175 Dec, [facility] [place] [facility] [address] [id number] [place] [address]- 2169 Dec, [facility] [place] [facility] [address] [id number] [place] [address]- 8309 Dec, [facility] [address] [id number] [place] [address]- 6958 Dec, [facility] [place] [facility] [address] [id number] [place] [address]- 3338 Dec, [facility] [place] [facility] [address] [id number] [place] [address]- 4067 Dec, [facility] [place] [facility] [address] [id number] [place] [address]- 5562 Dec, [facility] [place] [facility] [address] [id number] [place] [address]- 9275 October, [facility] [place] [facility] [address] [id number] [place] [address]- 1387 October, [facility] [place] [facility] [address] [id number] [place] [address]- 4150 October, [facility] [place] [facility] [address] [id number] [place] [address]- 4019 24 Oct, 2012 [facility] [place] [facility] [address] [id number] [place] [address]- 6824 Oct, [facility] [place] [facility] [address] [id number] [place] [address]- 2018 Oct, [facility] [place] [facility] [address] [id number] [place] [address]- 7185 Oct, [facility] [place] [facility] [address] [id number] [place] [address]- 9636 Aug, [facility] [place] [facility] [address] [id number] [place] [address]- 1398 Aug, [facility] [place] [facility] [address] [id number] [place] [address]- 4460 Aug, [facility] [place] [facility] [address] [id number] [place] [address]- 1581 Jul, [facility] [place] [facility] [address] [id number] [place] [address]- 1084 May, [facility] [place] [facility] [address] [id number] [place] [address]- 6493 May, [facility] [place] [facility] [address] [id number] [place] [address]- 5052 Apr, [facility] [place] [facility] [address] [id number] [place] [address]- 4013 Apr, [facility] [place] [facility] [address] [id number] [place] [address]- 7868 Apr, [facility] [place] [facility] [address] [id number] [place] [address]- 7236 Apr, [facility] [place] [facility] [address] [id number] [place] [address]- 9523 Apr, [facility] [place] [facility] [address] [id number] [place] [address]- 0791 Apr, [facility] [place] [facility] [address] [id number] [place] [address]- 7242 Apr, [facility] [place] [facility] [address] [id number] [place] [address]- 2626 Apr, [facility] [place] [facility] [address] [id number] [place] [address]- 9387 Apr, [facility] [place] [facility] [address] [id number] [place] [address]- 0186 Apr, [facility] [place] [facility] [address] [id number] [place] [address]- 5125 Apr, [facility] [place] [facility] [address] [id number] [place] [address]- 7326 Apr, [facility] [place] [facility] [address] [id number] [place] [address]- 6026 Mar, [facility] [place] [facility] [address] [id number] [place] [address]- 8516 Jan, [facility] [place] [facility] [address] [id number] [place] [address]- 4475 Dec, [facility] [place] [facility] [address] [id number] [place] [address]- 1153 October, [facility] [place] [facility] [address] [id number] [place] [address]- 0730 Oct, [facility] [place] [facility] [address] [id number] [place] [address]- 2914 Oct, [facility] [place] [facility] [address] [id number] [place] [address]- 9779 Oct, [facility] [place] [facility] [address] [id number] [place] [address]- 7614 Aug, [facility] [place] [facility] [address] [id number] [place] [address]- 4364 Aug, [facility] [place] [facility] [address] [id number] [place] [address]- 7382 29 Aug, 2011 [facility] [place] [facility] [address] [id number] [place] [address]- 3906 Aug, [facility] [place] [facility] [id number], [place] [address] 2546 15 Aug, 2011 [facility] [place] [id number], [place] [address]- 2596 Aug, [facility] [place] [id number], [place] [address]- 2546 Jun, [facility] [place] [id number], [place] [address]- 0583 Apr, [facility] [place] [id number], [place] [address] Jun, [facility] [place] [id number], [place] [address]- 7866 Jun, [facility] [place] [id number], [place] [address]- 4802 May, [facility] [place] [id number], [place] [address]- 5734 May, [facility] [place] [id number], [place] [address]- 4304 Apr, [facility] [place] [address] [id number], [place] [address] 0438 Apr, IMMUNIZATIONS No Known Immunizations SOCIAL HISTORY Never Assessed REASON FOR VISIT Augmentin prescription PLAN OF CARE VITAL SIGNS MEDICATIONS Medication Instructions Dosage Frequency Start Date End Date Duration Status Augmentin [id number] MG Orally every 12 hrs 1 tablet 12h Aug,Aug 14 days Active RESULTS No Results PROCEDURES [...]
--- OUTSIDE RECORDS SUMMARY | 2018-07-18 07:28 | XMS REPORT ---
Author Author BRANDY SAGAR [facility] Address [address] [place] [address] Care Team Providers Care Field Adjuster Name Role Phone BRANDYTEZ HOYTHANY Unavailable PROBLEMS Type Condition ICD9-CM Code UNN76-MB Code Onset Dates Condition Status SNOMED Code Problem Migraine with aura and without status migrainosus, not intractable G43.109 Active 3362766 Problem PCOS (polycystic ovarian syndrome) E28.2 Active 06389725 Problem Uncomplicated severe persistent asthma J45.50 Active 900819646 Problem Severe persistent asthma with exacerbation J45.51 Active 419384634 Problem Other elevated white blood cell (WBC) count D72.828 Active 067720226 Problem Multiple food allergies Z91.018 Active 766707470 Problem Pure hypercholesterolemia E78.00 Active 422482150 Problem Current chronic use of inhaled steroid Z79.51 Active 377736036 Problem Asthma exacerbation J45.901 Active 817701188 Problem ADD (attention deficit disorder) F90.0 Active 806357803 Problem Allergic rhinitis due to pollen J30.1 Active 33949027 Problem Vitamin D deficiency E55.9 Active 80414625 Problem Major depressive disorder, recurrent episode, mild F33.0 Active 405602327 Problem Acquired hypothyroidism E03.9 Active 186825161 Problem Gastroesophageal reflux disease without esophagitis K21.9 Active 413844796 ALLERGIES No Information ENCOUNTERS Encounter Location Date Diagnosis [facility], [place] [address] [facility] [id number] [address] Dec, Allergic rhinitis due to pollen J30.1 [facility], [place] [address] [address] Dec, ADD (attention deficit disorder) F90.0 [facility], [place] [id number] [address] Dec, ADD (attention deficit disorder) F90.0 and Uncomplicated severe persistent asthma J45.50 [facility], [place] [id number] [place] [address] 23036- 4365 Dec, Allergic rhinitis due to pollen J30.1 [facility], [place] [id number] [place] [address] 94946- 2310 Dec, [facility], [place] [address] [address]07- 48[address] October, Allergic rhinitis due to pollen J30.1 [facility], [place] [id number] [place] [address] 03019- 8239 October, Allergic rhinitis due to pollen J30.1 [place] [id number] [place] [address] 50884- 4858 Oct, [place] [id number] [place] [address] 56447- 0374 Oct, Allergic rhinitis due to pollen J30.1 [facility], [place] [id number] [place] [address] 91459- 9624 Oct, [place] [address] 12597- 3226 Oct, Allergic rhinitis due to pollen J30.1 [place] [id number] [place] [address] 01091- 7458 Oct, Severe persistent asthma with exacerbation J45.51 and Pneumonia due to Haemophilus influenzae, unspecified laterality, unspecified part of lung J14 [place] [id number] [place] [address] 46593- 3430 Oct, ADD (attention deficit disorder) F90.0 [place] [address] 02090- 4995 Aug, Haemophilus influenzae infection A49.2 [place] [id number] [place] [address] 62669- 6471 Aug, Cough productive of purulent sputum R05 [place] [id number] [place] [address] 27415- 2905 Aug, [place] [address] 17223- 8904 Aug, Pulmonary congestion R09.89 [place] [address] 06939- 1446 Aug, Severe persistent asthma with exacerbation J45.51 ; Hiatal hernia K44.9 and Gastroesophageal reflux disease without esophagitis K21.9 [place] [address] 45103- 1206 Aug, Other elevated white blood cell (WBC) count D72.[address] 35607- 6778 Aug, Uncomplicated severe persistent asthma J45.[address] 53865- 5708 Aug, Pure hypercholesterolemia E78.00 ; Uncomplicated severe persistent asthma J45.50 and Acquired hypothyroidism E03.[address] 61347- 7075 Aug, Acquired hypothyroidism E03.9 ; Pure hypercholesterolemia E78.00 and Uncomplicated severe persistent asthma J45.50 [place] [address] 11915- 3069 15 Aug, 2017 Allergic rhinitis due to pollen J30.1 [place] [address] 61327- 5572 Aug, Allergic rhinitis due to pollen J30.1 [place] [address] 49921- 5299 Aug, [facility] [address] [id number] Jul, Pharyngitis, unspecified etiology J02.9 and Lymphadenopathy R59.1 [place] [address] [place] [address] 9920 Jul, ADD (attention deficit disorder) F90.0 [place] [address] 16836- 4230 Jul, Allergic rhinitis due to pollen J30.1 [place] [address] 92344- 0503 Jul, Dental examination Z01.20 [place] [address] 31529- 0213 Jun, Cough productive of purulent sputum R05 [place] [address] 09103- 3373 Jun, Allergic rhinitis due to pollen J30.1 [place] [address] 02426- 9738 Jun, [place] [address] 19497- 2538 Jun, Allergic rhinitis due to pollen J30.1 [place] [id number] [place] [address] 14007- 0881 Jun, Allergic rhinitis due to pollen J30.1 [place] [id number] [place] [address] 13392- 5538 May, Allergic rhinitis due to pollen J30.1 [place] [id number] [place] [address] 46749- 2015 May, Pneumonia due to Haemophilus influenzae, unspecified laterality, unspecified part of lung J14 [place] [id number] [place] [address] 60343- 2799 May, Allergic rhinitis due to pollen J30.1 [place] [id number] [place] [address] 41568- 2954 May, Other adverse food reactions, not elsewhere classified, initial encounter T78.1XXA and Pneumonia due to Haemophilus influenzae, unspecified laterality, unspecified part of lung J14 [place] [id number] [place] [address] 30138- 8966 13 May, 2017 Pneumonia due to Haemophilus influenzae, unspecified laterality, unspecified part of lung J14 [place] [address] [place] [address] 41214- 9262 10 May, 2017 Multiple food allergies Z91.018 ; Uncomplicated severe persistent asthma J45.50 ; Cough productive of purulent sputum R05 and Uses central nervous system stimulants F15.90 [place] [address] 30373- 3235 Apr, Allergic rhinitis due to pollen J30.1 [place] [address] 54941- 2472 Apr, Allergic rhinitis due to pollen J30.1 [place] [address] 76959- 9317 Apr, Allergic rhinitis due to pollen J30.1 [place] [id number] [place] [address] 01522- 9629 Apr, ADD (attention deficit disorder) F90.0 [place] [address] 52806- 4897 28 Mar, 2017 Allergic rhinitis due to pollen J30.1 [place] [id number] [place] [address] 63790- 9316 Mar, Encounter for immunization Z23 [place] [address] 96216- 9252 19 Mar, 2017 [place] [id number] [place] [address] 32732- 0292 14 Mar, 2017 Allergic rhinitis due to pollen J30.1 [place] [id number] [place] [address] 90267- 8280 07 Mar, 2017 Allergic rhinitis due to pollen J30.1 [place] [address] 56537- 1237 Jan, Allergic rhinitis due to pollen J30.1 [place] [address] [place] [address] 80345- 7930 Jan, Allergic rhinitis due to pollen J30.1 [place] [id number] [place] [address] 37025- 1375 Dec, Uncomplicated severe persistent asthma J45.50 [place] [address] [place] [address] 18180- 6571 Dec, Allergic rhinitis due to pollen J30.1 [place] [id number] [place] [address] 07918- 0840 Dec, Allergic rhinitis due to pollen J30.1 [place] [id number] [place] [address] 03549- 6915 Dec, Allergic rhinitis due to pollen J30.1 [place] [id number] [place] [address] 96795- 3570 Dec, ADD (attention deficit disorder) F90.0 [place] [id number] [place] [address] 26515- 4159 Dec, Allergic rhinitis due to pollen J30.1 [place] [address] [place] [address] 31528- 7485 Dec, Visit for TB skin test Z11.1 and Screening for tuberculosis Z11.1 [place] [id number] [place] [address] 71911- 3629 Dec, Uncomplicated severe persistent asthma J45.50 ; Palpitations R00.2 ; Pericardial effusion (noninflammatory) I31.3 and Chest discomfort R07.89 [place] [address] [place] [address] 34154- 4162 Dec, Allergic rhinitis due to pollen J30.1 [place] [id number] [place] [address] 47233- 9287 Dec, Chronic cough R05 [place] [address] [address]- 4703 Dec, [place] [id number] [place] [address] 26185- 8881 Dec, Allergic rhinitis due to pollen J30.1 [facility], [place] [id number] [place] [address] 45966- 3256 Dec, Allergic rhinitis due to pollen J30.1 [facility], [place] [id number] [place] [address] 85332- 5712 Dec, Chronic cough R05 [place] [id number] [place] [address] 39195- 1679 October, Allergic rhinitis due to pollen J30.1 [place] [id number] [place] [address] 83842- 7433 October, Allergic rhinitis due to pollen J30.1 [place] [address] [place] [address] 70649- 9617 October, [place] [id number] [place] [address] 33241- 2908 October, Asthma exacerbation J45.901 [place] [address] [place] [address] 44252- 6818 October, Asthma exacerbation J45.901 and Current chronic use of inhaled steroid Z79.51 [place] [address] [place] [address] 20880- 8121 October, Uncomplicated severe persistent asthma J45.50 [place] [address] [place] [address] 17248- 5107 October, Allergic rhinitis due to pollen J30.1 [place] [address] [place] [address] 49818- 1519 Oct, [place] [id number] [place] [address] 81982- 1083 Oct, Asthma exacerbation J45.901 and Sputum production R05 [place] [address] [place] [address] 22080- 8576 Oct, Asthma exacerbation J45.901 [place] [address] [place] [address] 31428- 9058 Oct, ADD (attention deficit disorder) F90.0 [place] [address] 589145- 3690 Oct, ADD (attention deficit disorder) F90.0 [place] [id number] [place] [address] 87284- 0362 Aug, Allergic rhinitis due to pollen J30.1 [place] [address] [place] [address] 90922- 6770 Aug, Atypical pneumonia J18.9 [place] [address] 44697- 4160 Aug, Allergic rhinitis due to pollen J30.1 [place] [id number] [place] [address] 28843- 7645 Aug, Acquired hypothyroidism E03.9 [place] [address] 62077- 8054 Aug, Multiple food allergies Z91.018 ; Elevated blood pressure reading R03.0 and Anaphylaxis, subsequent encounter T78.2XXD [place] [address] [place] [address] [place] [address] [id number] Aug, [place] [id number] [place] [address] 80011- 8671 Aug, Anaphylaxis, initial encounter T78.2XXA [place] [address] 35346- 5105 Aug, Allergic rhinitis due to pollen J30.1 [place] [id number] [place] [address] 29912- 2816 Aug, Dental examination Z01.20 [facility], [place] [id number] [place] [address] 10281- 2256 09 Aug, 2016 Allergic rhinitis due to pollen J30.1 [facility], [place] [id number] [place] [address] 25162- 5271 06 Aug, 2016 Acquired hypothyroidism E03.9 and Pure hypercholesterolemia E78.00 [place] [address] 77102- 7356 Aug, ADD (attention deficit disorder) F90.0 ; Acquired hypothyroidism E03.9 and Pure hypercholesterolemia E78.00 [place] [address] 29327- 6872 Aug, Asthma exacerbation J45.901 [place] [address] 96726- 9588 Jul, Allergic rhinitis due to pollen J30.1 [place] [address] 70031- 8016 Jul, Allergic rhinitis due to pollen J30.1 [place] [id number] [place] [address] 40203- 4024 Jul, [place] [id number] [place] [address] 41663- 8424 Jul, Allergic rhinitis due to pollen J30.1 [place] [id number] [place] [address] 38771- 3296 Jul, Other longterm (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 and ADD ( attention deficit disorder) F90.0 [place] [address] 12803- 0294 Jul, 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 and ADD ( attention deficit disorder) F90.0 [place] [id number] [place] [address] 99030- 8424 Jul, [place] [address] [place] [address]- 7799 Jun, Allergic rhinitis due to pollen J30.1 [facility], [place] [id number] [place] [address] 50006- 4042 Jun, Allergic rhinitis due to pollen J30.1 [facility], [place] [id number] [place] [address] 82820- 5026 Jun, [facility], [place] [id number] [place] [address] 18206- 0445 May, Allergic rhinitis due to pollen J30.1 [facility], [place] [id number] [place] [address] 54375- 6604 May, Allergic rhinitis due to pollen J30.1 [facility], [place] [id number] [place] [address] 48990- 9550 Apr, Allergic rhinitis due to pollen J30.1 [place] [id number] [place] [address] 42110- 5487 Apr, Allergic rhinitis due to pollen J30.1 [facility], [place] [id number] [place] [address] 18127- 5384 Apr, Encounter for immunization Z23 [facility], [place] [id number] [place] [address] 63676- 3363 Apr, [place] [address] [place] [address] 61496- 4702 Mar, Allergic rhinitis due to pollen J30.1 [facility], [place] [id number] [place] [address] 94205- 1569 Mar, Multiple allergies Z88.9 [place] [id number] [place] [address] 38073- 8133 12 Mar, 2016 Candidal vaginitis B37.3 [facility], [place] [address] [place] [address] 44695- 3253 08 Mar, 2016 Allergic rhinitis due to pollen J30.1 [facility], [place] [address] [address]- 0988 Jan, Asthma exacerbation J45.901 ; Fatigue, unspecified type R53.83 and Community acquired pneumonia J18.9 [facility] [address] [address] Jan, Encounter for dental examination Z01.20 [facility], [place] [id number] [place] [address] 82551- 2696 Jan, Allergic rhinitis due to pollen J30.1 [facility], [place] [address] [place] [address] 12671- 1153 Dec, Allergic rhinitis due to pollen J30.1 [facility], [place] [id number] [place] [address] 31820- 6015 Dec, [facility], [place] [id number] [place] [address] 13823- 8222 Dec, Allergic rhinitis due to pollen J30.1 [facility], [place] [address] [place] [address] 72038- 9743 Dec, [facility], [place] [id number] [place] [address] 90244- 1960 Dec, [facility], [place] [address] [place] [address] 98129- 4737 Dec, [facility], [place] [address] [place] [address] 83538- 8379 Dec, Allergic rhinitis due to pollen J30.1 [facility], [place] [address] [place] [address] 90568- 1793 Dec, [facility], [place] [id number] [place] [address] 52313- 1651 Dec, [facility], [place] [address] [place] [address] 69752- 1177 Dec, Allergic rhinitis due to pollen J30.1 [facility], [place] [id number] [place] [address] 45374- 3903 October, Allergic rhinitis due to pollen J30.1 [place] [id number] [place] [address] 46824- 3223 October, Allergic rhinitis due to pollen J30.1 [place] [id number] [place] [address] 25965- 2402 October, [place] [id number] [place] [address] 37230- 7253 October, [place] [id number] [place] [address] 65735- 2850 October, ADD (attention deficit disorder) F90.0 ; Major depressive disorder, recurrent episode, mild F33.0 and Uncomplicated severe persistent asthma J45.50 [place] [id number] [place] [address] 54001- 7804 Oct, Allergic rhinitis due to pollen J30.1 [place] [id number] [place] [address] 26399- 6803 Oct, ADD (attention deficit disorder) F90.0 [place] [id number] [place] [address] 26717- 1191 Oct, Allergic rhinitis due to pollen 477.0 [place] [address] [place] [address] 71325- 5250 Aug, Allergic rhinitis due to pollen 477.0 [place] [address] [place] [address] 25201- 9741 Aug, 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 [place] [address] [place] [address] 15042- 5050 Aug, [place] [id number] [place] [address] 33293- 9367 Aug, Allergic rhinitis due to pollen 477.0 [place] [address] [place] [address] 12313- 2083 Aug, Allergic rhinitis due to pollen 477.0 [facility], [place] [address] [place] [address] 48909- 0806 Aug, Allergic rhinitis due to pollen 477.0 [facility], [place] [id number] [place] [address] 05375- 7342 Aug, Exposure to influenza Z20.828 [facility] [id number] [place] [address] [id number] Aug, 2015 Encounter for dental examination and cleaning without abnormal findings Z01.20 [place] [address] [place] [address] 45296- 1578 18 Aug, 2015 Allergic rhinitis due to pollen J30.1 [place] [id number] [place] [address] 05690- 4789 Aug, [place] [address] 04515- 0851 Aug, 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 [place] [address] [place] [address] 78588- 1048 Jul, [place] [id number] [place] [address] 02543- 1989 Jul, Allergic rhinitis due to pollen 477.0 [place] [address] [place] [address] 67831- 2234 Jul, [place] [address] [place] [address] 39321- 7412 Jul, Allergic rhinitis due to pollen 477.0 [place] [address] [place] [address] 52326- 1152 Jun, ADD (attention deficit disorder) F90.0 ; Acquired hypothyroidism E03.9 ; PCOS (polycystic ovarian syndrome) E28.2 ; Polyarthralgia M25.50 and On stimulant medication Z79.899 [place] [address] [place] [address] 77305- 9221 16 Apr, 2015 Encounter for immunization Z23 [facility], [place] [id number] [place] [address] 74461- 9359 16 Mar, 2015 Allergic rhinitis due to pollen 477.0 [facility], [place] [address] [place] [address] 30823- 4166 14 Mar, 2015 Influenza vaccine administered V04.81 [facility], [place] [id number] [place] [address] 15015- 5673 Mar, [facility], [place] [id number] [place] [address] 24822- 2193 Jan, Allergic rhinitis due to pollen 477.0 [facility], [place] [id number] [place] [address] 95368- 5108 Jan, Allergic rhinitis due to pollen 477.0 [facility], [place] [id number] [place] [address] 41414- 7842 Jan, Allergic rhinitis due to pollen 477.0 [facility] [id number] [place] [address] [id number] Jan, Dental examination V72.2 [facility], [place] [id number] [place] [address] 58314- 3713 Dec, Allergic rhinitis due to pollen 477.0 [facility] [place] [address] [place] [address] 72753- 2433 October, [facility] [place] [id number] [place] [id number]- [id number] Oct, [facility], [place] [id number] [place] [id number]- [id number] Oct, [facility], [place] [id number] [place] [address]- 384[address] Aug, [facility], [place] [id number] [place] [id number]- [address] Aug, [facility], [place] [id number] [address] Aug, [facility] [place] [facility] [address] [id number] [place] [address] Aug, [facility] [place] [facility] [address] [id number] [place] [address] Aug, [facility] [place] [facility] [address] [id number] [place] [address] Aug, [facility] [place] [facility] [address] [id number] [place] [address] Aug, [facility] [place] [facility] [address] [id number] [place] [address] Aug, [facility] [place] [facility] [address] [id number] [place] [address] Jul, [facility] [place] [facility] [address] [id number] [place] [address] Jul, [facility] [place] [facility] [address] [id number] [place] [address] Jul, [facility] [place] [facility] [address] [id number] [place] [address] Jul, [facility] [place] [facility] [address] [id number] [place] [address] 1710 Jul, [facility] [place] [facility] [address] [id number] [place] [address] Jul, [facility] [place] [facility] [address] [id number] [place] [address] 8[address] Jul, [facility] [place] [facility] [address] [id number] [place] [address]487 Jul, [facility] [place] [facility] [address] [id number] [place] [address] 09[address] Jul, [facility] [place] [facility] [address] [id number] [place] [address]30 Jul, [facility] [place] [facility] [address] [id number] [place] [address] Jul, [facility] [place] [facility] [address] [id number] [place] [address] 6[address] Jun, [facility] [place] [facility] [address] [id number] [place] [address] Jun, [facility] [place] [facility] [address] [id number] [place] [address] Jun, [facility] [place] [facility] [address] [id number] [place] [address]- 4536 Jun, [facility] [place] [facility] [address] [id number] [place] [address] 0383 Jun, [facility] [place] [facility] [address] [id number] [place] [address]- 7768 Jun, [facility] [place] [facility] [address] [id number] [place] [address]- 0587 May, [facility] [place] [facility] [address] [id number] [place] [address]- 7755 May, [facility] [place] [facility] [address] [id number] [place] [address]- 4561 May, [facility] [place] [facility] [address] [id number] [address] May, [facility] [place] [facility] [address] [id number] [address] 55[address] May, [facility] [place] [facility] [address] [id number] [place] [address] 1864 May, [facility] [place] [facility] [address] [id number] [address] 6[address] Apr, [facility] [place] [facility] [address] [id number] [place] [address]- 8097 Apr, [facility] [place] [facility] [address] [id number] [place] [address]- 7824 30 Mar, 2013 [facility] [place] [facility] [address] [id number] [place] [address]- 0946 30 Mar, 2013 [facility] [place] [facility] [address] [id number] [place] [address] 2546 Mar, [facility] [place] [facility] [address] [id number] [place] [address] 2546 Mar, [facility] [place] [facility] [address] [id number] [place] [address] 2546 Mar, [facility] [place] [facility] [address] [id number] [place] [address]- 7718 Mar, [facility] [place] [facility] [address] [id number] [place] [address]- 4566 Jan, [facility] [place] [facility] [address] [id number] [place] [address] 6938 Jan, [facility] [place] [facility] [address] [id number] [place] [address]- 2225 Jan, [facility] [place] [facility] [address] [id number] [place] [address]- 1640 Jan, [facility] [place] [facility] [address] [id number] [place] [address]- 8271 Jan, [facility] [place] [facility] [address] [id number] [place] [address]- 8863 Jan, [facility] [place] [facility] [address] [id number] [place] [address]- 2659 Dec, [facility] [place] [facility] [address] [id number] [place] [address]- 3267 Dec, [facility] [place] [facility] [address] [id number] [place] [address]- 8491 Dec, [facility] [place] [facility] [address] [id number] [place] [address]- 8124 Dec, [facility] [place] [facility] [address] [id number] [place] [address]- 6360 Dec, [facility] [place] [facility] [address] [id number] [place] [address]- 2938 Dec, [facility] [place] [facility] [address] [id number] [place] [address]- 3219 Dec, [facility] [place] [facility] [address] [id number] [place] [address]- 7582 Dec, [facility] [place] [facility] [address] [id number] [place] [address]- 7626 Dec, [facility] [place] [facility] [address] [id number] [place] [address]- 1335 Dec, [facility] [place] [facility] [address] [id number] [place] [address]- 7009 Dec, [facility] [place] [facility] [address] [id number] [place] [address]- 1429 Dec, [facility] [place] [facility] [address] [id number] [place] [address]- 2708 Dec, [facility] [place] [facility] [address] [id number] [place] [address]- 8482 Dec, [facility] [place] [facility] [address] [id number] [place] [address]- 3933 Dec, [facility] [place] [facility] [address] [id number] [place] [address]- 3293 Dec, [facility] [place] [facility] [address] [id number] [place] [address] 1921 October, [facility] [place] [facility] [address] [id number] [place] [address]- 2089 October, [facility] [place] [facility] [address] [id number] [place] [address]- 3100 October, [facility] [place] [facility] [address] [id number] [place] [address]- 3781 October, [facility] [place] [facility] [address] [id number] [place] [address]- 6739 October, [facility] [place] [facility] [address] [id number] [place] [address]- 4539 October, [facility] [place] [facility] [address] [id number] [place] [address]- 5616 Oct, [facility] [place] [facility] [address] [id number] [place] [address]- 6173 Oct, [facility] [place] [facility] [address] [id number] [place] [address]- 5255 Oct, [facility] [place] [facility] [address] [id number] [place] [address]- 4083 Oct, [facility] [place] [facility] [address] [id number] [place] [address]- 1648 Oct, [facility] [place] [facility] [address] [id number] [place] [address]- 9897 Oct, [facility] [place] [facility] [address] [id number] [place] [address]- 5614 Aug, [facility] [place] [facility] [address] [id number] [place] [address]- 5442 Aug, [facility] [place] [facility] [address] [id number] [place] [address]- 2311 Aug, [facility] [place] [facility] [address] [id number] [place] [address]- 4537 Aug, [facility] [place] [facility] [address] [id number] [place] [address]- 4866 Jul, [facility] [place] [facility] [address] [id number] [place] [address]- 0514 Jul, [facility] [place] [facility] [address] [id number] [place] [address]- 3201 Jul, [facility] [place] [facility] [address] [id number] [place] [address]- 9396 15 Jul, 2013 [facility] [address] [id number] [place] [address]- 8083 Jun, [facility] [address] [id number] [place] [address]- 9736 Jun, [facility] [address] [id number] [place] [address]- 6330 Jun, [facility] [address] [id number] [place] [address]- 3875 Jun, [facility] [address] [id number] [place] [address]- 8772 Jun, [facility] [address] [id number] [place] [address] Jun, [facility] [address] [id number] [place] [address]- 3061 Jun, [facility] [address] [id number] [place] [address]- 8144 Jun, [facility] [address] [id number] [place] [address]- 7781 Jun, [facility] [address] [id number] [place] [address]- 9690 Jun, [facility] [place] [facility] [address] [id number] [place] [address]- 2651 Jun, [facility] [address] [id number] [place] [address]- 1004 19 May, 2013 [facility] [place] [facility] [address] [id number] [place] [address]- 6435 May, [facility] [place] [facility] [address] [id number] [place] [address]- 2546 May, [facility] [place] [facility] [address] [id number] [place] [address]- 6273 May, [facility] [place] [facility] [address] [id number] [place] [address]- 1749 May, [facility] [place] [facility] [address] [id number] [place] [address]- 6587 May, [facility] [place] [facility] [address] [id number] [place] [address]- 7390 May, [facility] [place] [facility] [address] [id number] [place] [address]- 0106 Apr, [facility] [place] [facility] [address] [id number] [place] [address]- 7292 Apr, [facility] [place] [facility] [address] [id number] [place] [address]- 6420 Apr, [facility] [place] [facility] [address] [id number] [place] [address]- 3925 Apr, [facility] [place] [facility] [address] [id number] [place] [address]- 5665 27 Mar, 2013 [facility] [place] [facility] [address] [id number] [place] [address]- 9587 Mar, [facility] [place] [facility] [address] [id number] [place] [address]- 0657 Mar, [facility] [place] [facility] [address] [id number] [place] [address]- 1020 23 Mar, 2013 [facility] [place] [facility] [address] [id number] [address]- 3476 04 Mar, 2013 [facility] [place] [facility] [address] [id number] [place] [address]- 5442 Mar, [facility] [place] [facility] [address] [id number] [place] [address]- 4128 30 Jan, 2013 [facility] [place] [facility] [address] [id number] [place] [address]- 4272 Jan, [facility] [place] [facility] [address] [id number] [place] [address]- 6896 Jan, [facility] [address] [id number] [place] [address]- 4100 Jan, [facility] [place] [facility] [address] [id number] [place] [address]- 3717 Jan, [facility] [place] [facility] [address] [id number] [place] [address]- 0193 Dec, [facility] [place] [facility] [address] [id number] [place] [address]- 2840 Dec, [facility] [place] [facility] [address] [id number] [place] [address]- 5114 Dec, [facility] [place] [facility] [address] [id number] [place] [address]- 3239 Dec, [facility] [address] [id number] [place] [address]- 0866 Dec, [facility] [place] [facility] [address] [id number] [place] [address]- 5008 Dec, [facility] [place] [facility] [address] [id number] [place] [address]- 9926 Dec, [facility] [place] [facility] [address] [id number] [place] [address]- 4689 Dec, [facility] [place] [facility] [address] [id number] [place] [address]- 7964 October, [facility] [place] [facility] [address] [id number] [place] [address]- 0440 October, [facility] [place] [facility] [address] [id number] [place] [address]- 8426 October, [facility] [place] [facility] [address] [id number] [place] [address]- 8212 24 Oct, 2012 [facility] [place] [facility] [address] [id number] [place] [address]- 1597 Oct, [facility] [place] [facility] [address] [id number] [place] [address]- 6706 Oct, [facility] [place] [facility] [address] [id number] [place] [address]- 0636 Oct, [facility] [place] [facility] [address] [id number] [place] [address]- 1764 Aug, [facility] [place] [facility] [address] [id number] [place] [address]- 1536 Aug, [facility] [place] [facility] [address] [id number] [place] [address]- 4959 Aug, [facility] [place] [facility] [address] [id number] [place] [address]- 1225 Jul, [facility] [place] [facility] [address] [id number] [place] [address]- 0998 May, [facility] [place] [facility] [address] [id number] [place] [address]- 4610 May, [facility] [place] [facility] [address] [id number] [place] [address]- 1154 Apr, [facility] [place] [facility] [address] [id number] [place] [address]- 5277 Apr, [facility] [place] [facility] [address] [id number] [place] [address]- 1641 Apr, [facility] [place] [facility] [address] [id number] [place] [address]- 3609 Apr, [facility] [place] [facility] [address] [id number] [place] [address]- 6490 Apr, [facility] [place] [facility] [address] [id number] [place] [address]- 3329 Apr, [facility] [place] [facility] [address] [id number] [place] [address]- 8836 Apr, [facility] [place] [facility] [address] [id number] [place] [address]- 3721 Apr, [facility] [place] [facility] [address] [id number] [place] [address]- 2131 Apr, [facility] [place] [facility] [address] [id number] [place] [address]- 8826 Apr, [facility] [place] [facility] [address] [id number] [place] [address]- 2717 Apr, [facility] [place] [facility] [address] [id number] [place] [address]- 0045 Apr, [facility] [place] [facility] [address] [id number] [place] [address]- 3347 Mar, [facility] [place] [facility] [address] [id number] [place] [address]- 9946 Jan, [facility] [place] [facility] [address] [id number] [place] [address]- 8307 Dec, [facility] [place] [facility] [address] [id number] [place] [address]- 6506 October, [facility] [place] [facility] [address] [id number] [place] [address]- 5790 Oct, [facility] [place] [facility] [address] [id number] [place] [address]- 7830 Oct, [facility] [place] [facility] [address] [id number] [place] [address]- 3669 Oct, [facility] [place] [facility] [address] [id number] [place] [address]- 0379 Aug, [facility] [place] [facility] [address] [id number] [place] [address]- 8369 Aug, [facility] [place] [facility] [address] [id number] [place] [address]- 6881 29 Aug, 2011 [facility] [place] [facility] [address] [id number] [place] [address]- 4316 Aug, [facility] [place] [facility] [address] [id number] [address]- 37[address] 15 Aug, 2011 [facility] [place] [id number] [address]- 9933 Aug, [facility] [place] [id number] [address]- 7714 Jun, [facility] [place] [id number] [address] Apr, [facility] [place] [id number] [address]- 5129 Jun, [facility] [place] [id number] [address]- 5221 Jun, [facility] [place] [id number] [address]- 6948 May, [facility] [place] [id number] [address]- 9201 May, [facility] [place] [id number] [address]- 6213 Apr, [facility] [place] [address] [id number] [address]- 8903 Apr, IMMUNIZATIONS No Known Immunizations SOCIAL HISTORY Never Assessed REASON FOR VISIT Prior Authorization Request- Pulmozyme PLAN OF CARE VITAL SIGNS MEDICATIONS Unknown [...]
--- OUTSIDE RECORDS SUMMARY | 2018-07-18 07:29 | XMS REPORT ---
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 Phone BRANDYTEZ HOYTHANY Unavailable PROBLEMS Type Condition ICD9-CM Code GBY15-ZM Code Onset Dates Condition Status SNOMED Code Problem Migraine with aura and without status migrainosus, not intractable G43.109 Active 5013492 Problem PCOS (polycystic ovarian syndrome) E28.2 Active 32673380 Problem Uncomplicated severe persistent asthma J45.50 Active 115334488 Problem Severe persistent asthma with exacerbation J45.51 Active 948686092 Problem Other elevated white blood cell (WBC) count D72.828 Active 424754886 Problem Multiple food allergies Z91.018 Active 831525606 Problem Pure hypercholesterolemia E78.00 Active 901016621 Problem Current chronic use of inhaled steroid Z79.51 Active 830841675 Problem Asthma exacerbation J45.901 Active 492234781 Problem ADD (attention deficit disorder) F90.0 Active 617808932 Problem Allergic rhinitis due to pollen J30.1 Active 37100819 Problem Vitamin D deficiency E55.9 Active 74040452 Problem Major depressive disorder, recurrent episode, mild F33.0 Active 243938240 Problem Acquired hypothyroidism E03.9 Active 695139214 Problem Gastroesophageal reflux disease without esophagitis K21.9 Active 636063371 ALLERGIES Substance Reaction Event Type Date Status Zithromax Unknown Drug Allergy Aug, Active Qvar shortness of breath Drug Allergy Aug, Active Ceftin Unknown Drug Allergy Aug, Active Morphine Patient is a fast metabolizer and medication is not effective Drug Allergy Aug, Active FLUORIDE VARNISH Unknown Non Drug Allergy Aug, Active Becker Unknown Non Drug Allergy Aug, Active Soybeans Unknown Non Drug Allergy Aug, Active Wheat Unknown Non Drug Allergy Aug, Active Malt Extract Unknown Non Drug Allergy Aug, Active Asprin Unknown Non Drug Allergy Aug, Active ENCOUNTERS Encounter Location Date Diagnosis [place] [id number] [place] [address] 46321- 9832 Dec, Allergic rhinitis due to pollen J30.1 [place] [address] [place] [id number] [place] [address] 83541- 4145 Dec, ADD (attention deficit disorder) F90.0 [place] [address] [id number] [place] [address] 82070- 2832 Dec, ADD (attention deficit disorder) F90.0 and Uncomplicated severe persistent asthma J45.50 [place] [address] [id number] [place] [address] 52947- 9154 Dec, Allergic rhinitis due to pollen J30.1 [place] [address] [id number] [place] [address] 61788- 4130 Dec, [place] [address] [id number] [place] [address] 16784- 0943 October, Allergic rhinitis due to pollen J30.1 [place] [id number] [place] [address] 82616- 2945 October, Allergic rhinitis due to pollen J30.1 [place] [address] [id number] [place] [address] 94202- 2494 Oct, [place] [address] [id number] [place] [address] 00567- 1772 Oct, Allergic rhinitis due to pollen J30.1 [facility] [place] [address] [place] [id number] [place] [address] 36354- 6188 Oct, [facility] [place] [address] [place] [id number] [place] [address] 64669- 3796 Oct, Allergic rhinitis due to pollen J30.1 [facility] [place] [address] [place] [address] 88858- 2701 Oct, Severe persistent asthma with exacerbation J45.51 and Pneumonia due to Haemophilus influenzae, unspecified laterality, unspecified part of lung J14 [place] [address] [id number] [place] [address] 40052- 4409 Oct, ADD (attention deficit disorder) F90.0 [place] [address] 23858- 7208 12 Aug, 2017 Haemophilus influenzae infection A49.2 [place] [address] 10648- 6004 09 Aug, 2017 Cough productive of purulent sputum R05 [place] [address] 41708- 2979 Aug, [place] [address] 91156- 1399 Aug, Pulmonary congestion R09.89 [place] [address] 92877- 3251 07 Aug, 2017 Severe persistent asthma with exacerbation J45.51 ; Hiatal hernia K44.9 and Gastroesophageal reflux disease without esophagitis K21.9 [place] [address] 28879- 5871 02 Aug, 2017 Other elevated white blood cell (WBC) count D72.828 [place] [address] 65091- 2342 Aug, Uncomplicated severe persistent asthma J45.50 [place] [address] 14865- 2633 Aug, Pure hypercholesterolemia E78.00 ; Uncomplicated severe persistent asthma J45.50 and Acquired hypothyroidism E03.9 [place] [address] 82281- 8777 20 Aug, 2017 Acquired hypothyroidism E03.9 ; Pure hypercholesterolemia E78.00 and Uncomplicated severe persistent asthma J45.50 [place] [address] 21421- 6341 15 Aug, 2017 Allergic rhinitis due to pollen J30.1 [place] [address] [place] [address] 5304 08 Aug, 2017 Allergic rhinitis due to pollen J30.1 [place] [address] 20661- 1347 Aug, [facility] [address] [id number] Jul, Pharyngitis, unspecified etiology J02.9 and Lymphadenopathy R59.1 [place] [address] 19651- 2493 Jul, ADD (attention deficit disorder) F90.0 [place] [address] 892993- 7267 Jul, Allergic rhinitis due to pollen J30.1 [place] [address] 69870- 5353 Jul, Dental examination Z01.20 [place] [address] 30407- 8467 Jun, Cough productive of purulent sputum R05 [place] [address] 83789- 5845 Jun, Allergic rhinitis due to pollen J30.1 [place] [address] [place] [id number] [place] [address] 89041- 8697 Jun, [place] [address] 66297- 4072 Jun, Allergic rhinitis due to pollen J30.1 [place] [address] [place] [id number] [place] [address] 00220- 4419 Jun, Allergic rhinitis due to pollen J30.1 [place] [address] [place] [id number] [place] [address] 05402- 9890 May, Allergic rhinitis due to pollen J30.1 [place] [address] 24812- 9094 May, Pneumonia due to Haemophilus influenzae, unspecified laterality, unspecified part of lung J14 [place] [address] [place] [id number] [place] [address] 21510- 1762 May, Allergic rhinitis due to pollen J30.1 [place] [address] [place] [id number] [place] [address] 57445- 4944 May, Other adverse food reactions, not elsewhere classified, initial encounter T78.1XXA and Pneumonia due to Haemophilus influenzae, unspecified laterality, unspecified part of lung J14 [place] [address] [place] [id number] [place] [address] 47388- 3535 May, Pneumonia due to Haemophilus influenzae, unspecified laterality, unspecified part of lung J14 [place] [address] [place] [address] [place] [address] 42977- 6614 May, Multiple food allergies Z91.018 ; Uncomplicated severe persistent asthma J45.50 ; Cough productive of purulent sputum R05 and Uses central nervous system stimulants F15.90 [place] [address] [id number] [place] [address] 60129- 7505 Apr, Allergic rhinitis due to pollen J30.1 [place] [address] [place] [id number] [place] [address] 52712- 6442 Apr, Allergic rhinitis due to pollen J30.1 [place] [address] [id number] [place] [address] 81823- 6943 Apr, Allergic rhinitis due to pollen J30.1 [place] [address] [id number] [place] [address] 42905- 1249 Apr, ADD (attention deficit disorder) F90.0 [place] [address] 14744- 2385 Mar, Allergic rhinitis due to pollen J30.1 [place] [address] [place] [id number] [place] [address] 80028- 0097 Mar, Encounter for immunization Z23 [place] [address] [place] [address]- 6111 19 Mar, 2017 [facility] [place] [address] [place] [id number] [place] [address] 15073- 7222 14 Mar, 2017 Allergic rhinitis due to pollen J30.1 [facility] [place] [address] [place] [id number] [place] [address] 22252- 6438 07 Mar, 2017 Allergic rhinitis due to pollen J30.1 [facility] [place] [address] [place] [id number] [place] [address] 86376- 7250 Jan, Allergic rhinitis due to pollen J30.1 [place] [address] [place] [id number] [place] [address] 20246- 6102 Jan, Allergic rhinitis due to pollen J30.1 [place] [address] [place] [id number] [place] [address] 21219- 5461 Dec, Uncomplicated severe persistent asthma J45.50 [place] [address] 18672- 7552 Dec, Allergic rhinitis due to pollen J30.1 [place] [address] [place] [id number] [place] [address] 59675- 6124 Dec, Allergic rhinitis due to pollen J30.1 [place] [address] [place] [id number] [place] [address] 06832- 5814 Dec, Allergic rhinitis due to pollen J30.1 [place] [address] [place] [id number] [place] [address] 15966- 0124 Dec, ADD (attention deficit disorder) F90.0 [place] [address] [place] [id number] [place] [address] 84101- 1720 Dec, Allergic rhinitis due to pollen J30.1 [place] [address] [place] [id number] [place] [address] 33198- 6112 Dec, Visit for TB skin test Z11.1 and Screening for tuberculosis Z11.1 [place] [address] 57540- 6596 Dec, Uncomplicated severe persistent asthma J45.50 ; Palpitations R00.2 ; Pericardial effusion (noninflammatory) I31.3 and Chest discomfort R07.89 [place] [address] [place] [id number] [place] [address] 56515- 5263 Dec, Allergic rhinitis due to pollen J30.1 [place] [address] 68339- 8175 Dec, Chronic cough R05 [place] [address] 04978- 1493 Dec, [place] [address] 02996- 2553 Dec, Allergic rhinitis due to pollen J30.1 [place] [address] 51688- 5345 Dec, Allergic rhinitis due to pollen J30.1 [place] [address] 12659- 2782 Dec, Chronic cough R05 [place] [address] 23189- 9819 October, Allergic rhinitis due to pollen J30.1 [place] [address] [place] [id number] [place] [address] 51036- 3077 October, Allergic rhinitis due to pollen J30.1 [place] [address] [place] [id number] [place] [address] 59762- 2853 October, [place] [address] [place] [id number] [place] [address] 53633- 2901 October, Asthma exacerbation J45.901 [place] [address] 82335- 6840 October, Asthma exacerbation J45.901 and Current chronic use of inhaled steroid Z79.51 [place] [address] 04481- 1155 October, Uncomplicated severe persistent asthma J45.50 [place] [address] [place] [id number] [place] [address] 57413- 7932 October, Allergic rhinitis due to pollen J30.1 [place] [address] [place] [id number] [place] [address] 18559- 8983 Oct, [place] [address] 33681- 4360 Oct, Asthma exacerbation J45.901 and Sputum production R05 [place] [address] 01034- 5925 Oct, Asthma exacerbation J45.901 [place] [address] 13731- 2298 Oct, ADD (attention deficit disorder) F90.0 [place] [address] 32694- 0286 Oct, ADD (attention deficit disorder) F90.0 [place] [address] 74425- 3733 Aug, Allergic rhinitis due to pollen J30.1 [place] [address] 28791- 8892 Aug, Atypical pneumonia J18.9 [place] [address] 39832- 0777 Aug, Allergic rhinitis due to pollen J30.1 [place] [address] [place] [id number] [place] [address] 28038- 2800 Aug, Acquired hypothyroidism E03.9 [place] [address] 80056- 9102 Aug, Multiple food allergies Z91.018 ; Elevated blood pressure reading R03.0 and Anaphylaxis, subsequent encounter T78.2XXD [place] [address] [id number] Aug, [place] [address] [place] [id number] [place] [address] 42522- 9973 Aug, Anaphylaxis, initial encounter T78.2XXA [place] [address] 26270- 2914 Aug, Allergic rhinitis due to pollen J30.1 [place] [address] 40677- 6463 Aug, Dental examination Z01.20 [place] [address] 58956- 6312 Aug, Allergic rhinitis due to pollen J30.1 [place] [address] 70222- 2071 Aug, Acquired hypothyroidism E03.9 and Pure hypercholesterolemia E78.00 [place] [address] 29944- 3967 Aug, ADD (attention deficit disorder) F90.0 ; Acquired hypothyroidism E03.9 and Pure hypercholesterolemia E78.00 [place] [address] 17737- 0910 Aug, Asthma exacerbation J45.901 [place] [address] 96498- 9653 Jul, Allergic rhinitis due to pollen J30.1 [place] [address] [place] [id number] [place] [address] 28399- 5423 Jul, Allergic rhinitis due to pollen J30.1 [place] [address] [place] [id number] [place] [address] 60384- 0358 Jul, [place] [address] 78727- 8191 Jul, Allergic rhinitis due to pollen J30.1 [place] [address] [place] [id number] [place] [address] 50810- 6553 Jul, [facility] [place] 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 and ADD ( attention deficit disorder) F90.0 [facility] [place] [address] [place] [id number] [place] [address] 49291- 7840 Jul, [place] 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 and ADD ( attention deficit disorder) F90.0 [facility] [place] [address] [place] [id number] [place] [address] 26265- 1439 Jul, [facility] [place] [address] 46605- 2514 Jun, Allergic rhinitis due to pollen J30.1 [facility] [place] [address] 82388- 4758 Jun, Allergic rhinitis due to pollen J30.1 [facility] [place] [address] [place] [id number] [place] [address] 16261- 5796 Jun, [facility] [place] [address] 05926- 5040 May, Allergic rhinitis due to pollen J30.1 [facility] [place] [address] [place] [id number] [place] [address] 93061- 4964 May, Allergic rhinitis due to pollen J30.1 [facility] [place] [address] [place] [id number] [place] [address] 61637- 3595 Apr, Allergic rhinitis due to pollen J30.1 [facility] [place] [address] [place] [id number] [place] [address] 05506- 0344 Apr, Allergic rhinitis due to pollen J30.1 [facility] [place] [address] [place] [id number] [place] [address] 89628- 2745 Apr, Encounter for immunization Z23 [facility] [place] [address] 73473- 9832 Apr, [facility] [place] [address] [place] [id number] [place] [address] 63046- 9006 Mar, Allergic rhinitis due to pollen J30.1 [place] [address] [place] [address] 02813- 0747 Mar, Multiple allergies Z88.9 [facility] [place] [address] [place] [id number] [place] [address] 82009- 2780 Mar, Candidal vaginitis B37.3 [facility] [place] [address] [place] [id number] [place] [address] 77535- 0779 08 Mar, 2016 Allergic rhinitis due to pollen J30.1 [facility] [place] [address] [place] [id number] [place] [address] 14482- 9748 Jan, Asthma exacerbation J45.901 ; Fatigue, unspecified type R53.83 and Community acquired pneumonia J18.9 [facility] [address] [place] [id number] [place] [address] [id number] Jan, Encounter for dental examination Z01.20 [facility] [place] [address] [place] [id number] [place] [address] 72997- 8091 Jan, Allergic rhinitis due to pollen J30.1 [facility] [place] [address] [place] [id number] [place] [address] 56535- 2119 Dec, Allergic rhinitis due to pollen J30.1 [facility] [place] [address] [place] [id number] [place] [address] 88752- 8255 Dec, [facility] [place] [address] [place] [id number] [place] [address] 81411- 6188 Dec, Allergic rhinitis due to pollen J30.1 [facility] [place] [address] [place] [id number] [place] [address] 11465- 8956 Dec, [facility] [place] [address] [place] [id number] [place] [address] 41315- 0242 Dec, [facility] [place] [address] [place] [id number] [place] [address] 50910- 6017 Dec, [facility] [place] [address] [place] [id number] [place] [address] 34490- 2410 Dec, Allergic rhinitis due to pollen J30.1 [facility] [place] [address] [address]- 9197 Dec, [facility] [place] [address] [place] [address] 89959- 2768 Dec, [facility] [place] [address] [place] [address] 98948- 8665 Dec, Allergic rhinitis due to pollen J30.1 [facility] [place] [address] [place] [id number] [place] [address] 77136- 9191 October, Allergic rhinitis due to pollen J30.1 [facility] [place] [address] [place] [id number] [place] [address] 09381- 3308 October, Allergic rhinitis due to pollen J30.1 [facility] [place] [address] [place] [id number] [place] [address] 09454- 2060 October, [facility] [place] [address] [place] [id number] [place] [address] 30625- 2944 October, [facility] [place] [address] [place] [id number] [place] [address] 39248- 7440 October, ADD (attention deficit disorder) F90.0 ; Major depressive disorder, recurrent episode, mild F33.0 and Uncomplicated severe persistent asthma J45.50 [facility] [place] [address] [place] [address] 45163- 2696 Oct, Allergic rhinitis due to pollen J30.1 [facility] [place] [address] [address]- 0050 Oct, ADD (attention deficit disorder) F90.0 [facility] [place] [address] [place] [address] 18018- 1363 Oct, Allergic rhinitis due to pollen 477.0 [facility] [place] [address] [address]- 1279 Aug, Allergic rhinitis due to pollen 477.0 [facility] [place] [address] [place] [id number] [place] [address] 10656- 7739 Aug, 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 [facility] [place] [address] [address] [id number] [place] [address] 83552- 9258 Aug, [facility] [place] [address] [address] [id number] [place] [address] 97025- 5804 Aug, Allergic rhinitis due to pollen 477.0 [facility] [place] [id number] [place] [address] 89540- 1887 Aug, Allergic rhinitis due to pollen 477.0 [facility] [place] [id number] [place] [address] 46804- 4182 Aug, Allergic rhinitis due to pollen 477.0 [facility] [place] [id number] [place] [address] 46050- 2621 Aug, Exposure to influenza Z20.828 [facility] [id number] [place] [address] [id number] Aug, Encounter for dental examination and cleaning without abnormal findings Z01.20 [facility] [place] [id number] [place] [address] 16528- 6567 Aug, Allergic rhinitis due to pollen J30.1 [facility] [place] [address] [place] [address] 16955- 2335 Aug, [facility] [place] [id number] [place] [address] 64557- 3180 Aug, 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 [facility] [place] [address] [id number] [place] [address] 07612- 7279 Jul, [facility] [place] [address] [id number] [place] [address] 74338- 7094 Jul, Allergic rhinitis due to pollen 477.0 [facility] [place] [id number] [place] [phone]- [address] Jul, [facility], [place] [address] [address] Jul, Allergic rhinitis due to pollen 477.0 [place] [address] [address] Jun, ADD (attention deficit disorder) F90.0 ; Acquired hypothyroidism E03.9 ; PCOS (polycystic ovarian syndrome) E28.2 ; Polyarthralgia M25.50 and On stimulant medication Z79.899 [place] [address] [address] Apr, Encounter for immunization Z23 [place] [address] [address]- [address] 16 Mar, 2015 Allergic rhinitis due to pollen 477.0 [place] [address] [address]- [address] Mar, Influenza vaccine administered V04.81 [place] [address] [address]- [address] Mar, [place] [address] [address] Jan, Allergic rhinitis due to pollen 477.0 [place] [address] [address]- [address] Jan, Allergic rhinitis due to pollen 477.0 [place] [address] [address]- [address] Jan, Allergic rhinitis due to pollen 477.0 [facility] [address] [id number] Jan, Dental examination V72.2 [place] [address] [address]- [address] Dec, Allergic rhinitis due to pollen 477.0 [facility], [place] [address] [address] October, [place] [address] [place] [address] 14 Oct, 2014 [facility] [place] [facility] [address] [id number] [place] [address] 13 Oct, 2014 [facility] [place] [facility] [address] [id number] [place] [address] Aug, [facility] [place] [facility] [address] [id number] [place] [address] Aug, [facility] [place] [facility] [address] [id number] [place] [address] Aug, [facility] [place] [facility] [address] [id number] [place] [address] Aug, [facility] [place] [facility] [address] [id number] [place] [address] Aug, [facility] [place] [facility] [address] [id number] [place] [address] Aug, [facility] [place] [facility] [address] [id number] [place] [address] Aug, [facility] [place] [facility] [address] [id number] [place] [address]772 Aug, [facility] [place] [facility] [address] [facility] [id number] [place] [address] Jul, [facility] [place] [facility] [address] [id number] [place] [address] 9[address] Jul, [facility] [place] [facility] [address] [id number] [place] [address] 9854 Jul, [facility] [place] [facility] [address] [id number] [place] [address] 4117 Jul, [facility] [place] [facility] [address] [id number] [place] [address]- 2188 Jul, [facility] [place] [facility] [address] [facility] [id number] [place] [address] 1139 Jul, [facility] [place] [facility] [address] [id number] [place] [address]- 7694 Jul, [facility] [place] [facility] [address] [id number] [place] [address]- 7298 Jul, [facility] [place] [facility] [address] [id number] [place] [address]- 2811 Jul, [facility] [place] [facility] [address] [id number] [place] [address]- 0788 Jul, [facility] [place] [facility] [address] [id number] [place] [address]- 8909 Jul, [facility] [place] [facility] [address] [id number] [place] [address]- 1796 Jun, [facility] [place] [facility] [address] [id number] [place] [address]- 8079 Jun, [facility] [place] [facility] [address] [id number] [place] [address]- 0638 Jun, [facility] [place] [facility] [address] [id number] [place] [address]- 8151 Jun, [facility] [place] [facility] [address] [id number] [place] [address]- 5971 Jun, [facility] [place] [facility] [address] [id number] [place] [address]- 8602 Jun, [facility] [place] [facility] [address] [id number] [address] May, [facility] [place] [facility] [address] [id number] [place] [address]- 3073 May, [facility] [place] [facility] [address] [id number] [place] [address]- 3374 May, [facility] [place] [facility] [address] [id number][place] [address] 6900 May, [facility] [place] [facility] [address] [id number][place] [address]- 3686 May, [facility] [place] [facility] [address] [id number] [place] [address]- 8975 May, [facility] [place] [facility] [address] [id number] [place] [address]- 5298 Apr, [facility] [place] [facility] [address] [id number] [place] [address]- 0524 Apr, [facility] [place] [facility] [address] [id number] [place] [address]- 1622 Mar, [facility] [place] [facility] [address] [id number] [place] [address]- 2794 Mar, [facility] [place] [facility] [address] [id number] [place] [address]- 2616 Mar, [facility] [place] [facility] [address] [id number] [place] [address]- 3015 Mar, [facility] [place] [facility] [address] [id number] [place] [address]- 8986 Mar, [facility] [place] [facility] [address] [id number] [place] [address]- 8101 Mar, [facility] [place] [facility] [address] [id number] [place] [address]- 2923 Jan, [facility] [place] [facility] [address] [id number] [place] [address]- 5130 Jan, [facility] [place] [facility] [address] [id number] [place] [address]- 9119 Jan, [facility] [place] [facility] [address] [id number] [place] [address]- 9159 Jan, [facility] [place] [facility] [address] [id number] [place] [address]- 5506 Jan, [facility] [place] [facility] [address] [facility] [id number] [place] [address]- 6542 Jan, [facility] [place] [facility] [address] [id number] [place] [address]- 8906 Dec, [facility] [place] [facility] [address] [id number] [place] [address]- 4339 Dec, [facility] [place] [facility] [address] [id number] [place] [address]- 0225 Dec, [facility] [place] [facility] [address] [id number] [place] [address]- 5801 Dec, [facility] [place] [facility] [address] [id number] [place] [address]- 0801 Dec, [facility] [place] [facility] [address] [id number] [place] [address]- 6034 Dec, [facility] [place] [facility] [address] [id number] [place] [address]- 9984 Dec, [facility] [place] [facility] [address] [id number] [place] [address]- 4808 Dec, [facility] [place] [facility] [address] [id number] [place] [address]- 0513 Dec, [facility] [place] [facility] [address] [id number] [place] [address]- 9701 Dec, [facility] [place] [facility] [address] [id number] [place] [address]- 4393 Dec, [facility] [place] [facility] [address] [id number] [place] [address]- 1677 Dec, [facility] [place] [facility] [address] [id number] [place] [address]- 0315 Dec, [facility] [place] [facility] [address] [id number] [place] [address]- 3562 Dec, [facility] [place] [facility] [address] [id number] [place] [address]- 9471 05 Dec, 2013 [facility] [place] [facility] [address] [id number] [place] [address]- 7402 Dec, [facility] [place] [facility] [address] [id number] [place] [address]- 3012 October, [facility] [place] [facility] [address] [id number] [place] [address]- 5105 October, [facility] [place] [facility] [address] [id number] [place] [address]- 8043 October, [facility] [place] [facility] [address] [id number] [place] [address]- 2588 October, [facility] [place] [facility] [address] [id number] [place] [address]- 5578 October, [facility] [place] [facility] [address] [id number] [place] [address]- 5539 October, [facility] [place] [facility] [address] [id number] [place] [address]- 0539 Oct, [facility] [place] [facility] [address] [id number] [place] [address]- 4942 Oct, [facility] [place] [facility] [address] [id number] [place] [address]- 7310 Oct, [facility] [place] [facility] [address] [id number] [place] [address]- 1344 Oct, [facility] [place] [facility] [address] [id number] [place] [address]- 9088 Oct, [facility] [place] [facility] [address] [id number][place] [address]- 9541 Oct, [facility] [place] [facility] [address] [id number] [place] [address]- 0891 Aug, [facility] [place] [facility] [address] [id number] [place] [address]- 5501 Aug, [facility] [place] [facility] [address] [id number] [place] [address]- 7128 Aug, [facility] [place] [facility] [address] [id number] [place] [address]- 2484 Aug, [facility] [address] [id number] [place] [address]- 1689 Jul, [facility] [address] [id number] [place] [address]- 8052 Jul, [facility] [address] [id number] [place] [address]- 9864 Jul, [facility] [address] [id number] [place] [address]- 9567 Jul, [facility] [address] [id number] [place] [address] Jun, [facility] [address] [id number] [place] [address]- 1678 Jun, [facility] [address] [id number] [place] [address]- 4221 Jun, [facility] [address] [id number] [place] [address]- 0061 Jun, [facility] [address] [id number] [place] [address]- 6234 Jun, [facility] [address] [id number] [place] [address]- 2453 Jun, [facility] [address] [id number] [place] [address]- 1848 Jun, [facility] [address] [id number] [place] [address]- 2095 Jun, [facility] [place] [facility] [address] [id number] [place] [address]- 2704 Jun, [facility] [place] [facility] [address] [id number] [place] [address]66 Jun, [facility] [address] [id number] [place] [address]- 6362 Jun, [facility] [place] [facility] [address] [id number] [place] [address]- 9275 May, [facility] [place] [facility] [address] [id number] [place] [address] May, [facility] [place] [facility] [address] [id number] [place] [address]- 7944 May, [facility] [place] [facility] [address] [id number] [place] [address]- 7401 May, [facility] [place] [facility] [address] [id number] [place] [address]- 8367 May, [facility] [place] [facility] [address] [id number] [place] [address]- 6308 May, [facility] [place] [facility] [address] [id number] [place] [address]- 3392 May, [facility] [place] [facility] [address] [id number] [place] [address]- 4166 Apr, [facility] [place] [facility] [address] [id number] [place] [address]- 7197 Apr, [facility] [place] [facility] [address] [id number] [place] [address]- 5321 Apr, [facility] [place] [facility] [address] [id number] [place] [address]- 3987 Apr, [facility] [place] [facility] [address] [id number][place] [address]- 5389 27 Mar, 2013 [facility] [place] [facility] [address] [id number] [place] [address]- 4504 Mar, [facility] [place] [facility] [address] [id number] [place] [address]- 9132 26 Mar, 2013 [facility] [place] [facility] [address] [id number] [place] [address]172 23 Mar, 2013 [facility] [place] [facility] [address] [id number] [place] [address]- 7342 Mar, [facility] [place] [facility] [address] [id number] [place] [address]- 9667 Mar, [facility] [place] [facility] [address] [id number] [place] [address]- 2481 Jan, [facility] [place] [facility] [address] [id number] [place] [address]- 1112 Jan, [facility] [place] [facility] [address] [id number] [place] [address]- 7721 Jan, [facility] [place] [facility] [address] [id number] [place] [address]- 6988 Jan, [facility] [place] [facility] [address] [id number] [place] [address]- 1471 Jan, [facility] [place] [facility] [address] [id number] [place] [address]- 7157 Dec, [facility] [place] [facility] [address] [id number] [place] [address]- 6211 Dec, [facility] [place] [facility] [address] [id number] [place] [address]- 3220 Dec, [facility] [place] [facility] [address] [id number] [place] [address]- 2943 Dec, [facility] [place] [facility] [address] [id number] [place] [address]- 8808 Dec, [facility] [place] [facility] [address] [id number] [place] [address]- 4968 Dec, [facility] [place] [facility] [address] [id number] [place] [address]- 3936 Dec, [facility] [place] [facility] [address] [id number] [place] [address]- 6770 Dec, [facility] [place] [facility] [address] [id number] [place] [address]- 8440 October, [facility] [place] [facility] [address] [id number] [place] [address]- 0225 October, [facility] [address] [id number] [place] [address]- 1386 October, [facility] [address] [id number] [place] [address]- 1184 Oct, [facility] [address] [id number] [place] [address]- 9494 Oct, [facility] [address] [id number] [place] [address]- 3049 Oct, [facility] [address] [id number] [place] [address]- 7179 Oct, [facility] [address] [id number] [place] [address]- 8669 Aug, [facility] [address] [id number] [place] [address]- 1637 Aug, [facility] [address] [id number] [place] [address]- 1121 Aug, [facility] [address] [id number] [place] [address]- 7871 Jul, [facility] [address] [id number] [place] [address]- 6910 May, [facility] [address] [id number] [place] [address]- 8093 May, [facility] [address] [id number] [place] [address]- 6046 Apr, [facility] [place] [facility] [address] [id number] [place] [address]- 5765 Apr, [facility] [address] [id number] [place] [address]- 1276 Apr, [facility] [address] [id number] [place] [address]- 6765 Apr, [facility] [place] [facility] [address] [id number] [place] [address]- 7352 Apr, [facility] [place] [facility] [address] [id number] [place] [address]- 4774 Apr, [facility] [place] [facility] [address] [id number] [place] [address]- 1476 Apr, [facility] [place] [facility] [address] [id number] [place] [address]- 0870 Apr, [facility] [place] [facility] [address] [id number] [place] [address]- 7179 Apr, [facility] [place] [facility] [address] [id number] [place] [address]- 6368 Apr, [facility] [place] [facility] [address] [id number] [place] [address]- 7070 Apr, [facility] [place] [facility] [address] [id number] [place] [address]- 6243 Apr, [facility] [place] [facility] [address] [id number] [place] [address]- 6169 Mar, [facility] [place] [facility] [address] [id number] [place] [address]- 6847 Jan, [facility] [place] [facility] [address] [id number] [place] [address]- 1396 Dec, [facility] [place] [facility] [address] [id number][place] [address]- 1080 October, [facility] [place] [facility] [address] [id number] [place] [address]- 4752 Oct, [facility] [place] [facility] [address] [id number] [place] [address]- 2135 Oct, [facility] [place] [facility] [address] [id number] [place] [address]- 2514 Oct, [facility] [place] [facility] [id number] [address]- 0354 Aug, [facility] [place] [id number] [place] [address] 12016- 7186 Aug, [facility] [place] [id number] [place] [address] 69201- 1066 Aug, [facility] [place] [id number] [place] [address] 76165- 1476 Aug, [facility] [place] [id number] [place] [address] 64992- 7372 Aug, [facility] [place] [id number] [place] [address] 45652- 2384 Aug, [facility] [place] [id number] [place] [address] 06105- 8566 Jun, [facility] [place] [id number] [place] [address] 28825- 9815 Apr, [facility] [place] [id number] [place] [address] 672497- 6749 Jun, [facility] [place] [id number] [place] [address] 14748- 4521 Jun, [facility] [place] [id number] [address]- 4774 May, [facility] [place] [id number] [place] [address] 05735- 0140 May, [facility] [place] [address] 7248 Apr, [facility] [place] [id number] [place] [address]463- 6595 Apr, IMMUNIZATIONS No Known Immunizations SOCIAL HISTORY Never Assessed REASON FOR VISIT wheezing, coughing --Slim PLAN OF CARE Activity Details Follow Up prn Reason: VITAL SIGNS Height 68 in 2017-09-06 Temperature 99.2 degrees Fahrenheit 2017-09-06 Heart Rate 90 bpm 2017-09-06 Respiratory Rate 20 2017-09-06 Blood pressure systolic 134 mmHg 2017-09-06 Blood pressure diastolic 86 mmHg 2017-09-06 MEDICATIONS Medication Instructions Dosage Frequency Start Date End Date Duration Status Pulmicort Flexhaler 180 MCG/ACT Inhalation Twice a day 1 puff 12h Active Breo Ellipta 200-25 MCG/INH Inhalation Once a day 1 puff 24h Active Nasonex 50 MCG/ACT USE ONE SPRAY IN EACH NOSTRIL TWICE DAILY 90 Not-Taking Vitamin D 2000 UNIT Orally Once a day 1 tablet 24h Active Benzonatate 200 mg Orally Three times a day 1 capsule 8h Jul, Oct, 30 day(s) Not-Taking Cryselle-28 0.3-30 MG-MCG Orally Daily for Three Weeks, 1 Week off 1 tablet Active Xyzal 5 mg 1 tablet by Oral route 2 times per day Mar, Active Oseltamivir Phosphate 75 MG Orally once a day 1 capsule 24h Jun, 10 days Not-Taking Singulair 10 mg take 1 tablet by Oral route 1 time per day Apr, Active MetFORMIN HCl ER 1000 mg Orally Once a day 1 tablet with evening meal 24h Active Ibuprofen 800 MG Orally every 8 hours 1 tablet 8h 30 days Active Aerobika - as directed Aug, Active Brovana 15 MCG/2ML Inhalation Twice a day 2 ml 12h Active Ranitidine HCl 150 MG Orally Once a day 1 capsule at bedtime 24h Active Magnesium Oxide 250 MG Orally Once a day 2 tablets 24h Active EpiPen 2-Leo 0.3 MG/0.3ML Injection PRN Active pantoprazole 40 mg by oral route Once a day 1 tablet 24h Aug, Active PredniSONE 20 mg Orally Once a day 3 tablets 24h Aug, Aug, 05 days Active Spiriva HandiHaler 18 MCG Active Albuterol Sulfate (2.5 MG/3ML) 0.083% Inhalation 4 times a day 3 ml as needed 6h Oct, Active Ondansetron 8 MG DISSOLVE ONE TABLET UNDER TONGUE EVERY 6 HOURS NEEDED FOR NAUSEA OR VOMITING 20 Active Pulmicort 1 MG/2ML Inhalation Four times a day 4 ml 6h Not-Taking Zofran ODT 8 MG Orally every 8 hours as needed for nausea/vomiting 1 tablet Jun, Not-Taking Concerta 54 MG Orally Once a day 1 tablet in the morning 24h Jul, 90 days Active Zoloft 50 MG Orally Once a day 1 tablet 24h Active Nasonex 50 mcg/actuation Nasally 2 times a day 1 spray in each nare 12h Jan, 90 days Not-Taking ProAir RespiClick 108 (90 Base) MCG/ACT Inhalation every 4 hrs 1 puff as needed 4h 90 Active Nebulizer - as directed Aug, Active Levocetirizine Dihydrochloride 5 MG TAKE ONE TABLET BY MOUTH TWICE DAILY 90 Not-Taking Levothyroxine Sodium 100 MCG TAKE ONE TABLET BY MOUTH ONCE DAILY 90 Active RESULTS Name Result Date Reference Range Xray : Chest 2 View (IN HOUSE) 2017-09-06 PROCEDURES Procedure Date Ordered Result Body Site X-RAY EXAM CHEST 2 VIEWS September 06, 2017 INSTRUCTIONS MEDICATIONS ADMINISTERED No Known Medications [...] History see above surgeries Hospitalization History Anaphylactic shock-[facility] 08/23/16
[2018-07-18] MEDS ORDERED: NS IV 1000 ML 1,000 ML IV SCH (07:30)
--- OUTSIDE RECORDS SUMMARY | 2018-07-18 07:30 | XMS REPORT ---
Author Author BRNADY SAGAR [facility] Address [address] [place] [address] Care Team Providers Care Dealer Accounts Investigator Name Role Phone BRANDYTEZ HOYTHANY Unavailable PROBLEMS Type Condition ICD9-CM Code TCB85-WQ Code Onset Dates Condition Status SNOMED Code Problem Migraine with aura and without status migrainosus, not intractable G43.109 Active 4603326 Problem PCOS (polycystic ovarian syndrome) E28.2 Active 83719613 Problem Uncomplicated severe persistent asthma J45.50 Active 185648826 Problem Severe persistent asthma with exacerbation J45.51 Active 687147620 Problem Other elevated white blood cell (WBC) count D72.828 Active 016743337 Problem Multiple food allergies Z91.018 Active 376946204 Problem Pure hypercholesterolemia E78.00 Active 487136167 Problem Current chronic use of inhaled steroid Z79.51 Active 228745563 Problem Asthma exacerbation J45.901 Active 137667132 Problem ADD (attention deficit disorder) F90.0 Active 977521157 Problem Allergic rhinitis due to pollen J30.1 Active 76494873 Problem Vitamin D deficiency E55.9 Active 23118020 Problem Major depressive disorder, recurrent episode, mild F33.0 Active 631024397 Problem Acquired hypothyroidism E03.9 Active 805291914 Problem Gastroesophageal reflux disease without esophagitis K21.9 Active 107616088 ALLERGIES No Information ENCOUNTERS Encounter Location Date Diagnosis [facility], [place] [address] [facility] [id number] [address] Dec, Allergic rhinitis due to pollen J30.1 [facility], [place] [address], [place] [address] Dec, ADD (attention deficit disorder) F90.0 [facility], [place] [address] [id number] [address] Dec, ADD (attention deficit disorder) F90.0 and Uncomplicated severe persistent asthma J45.50 [facility], [place] [id number] [place] [address] 92143- 1021 Dec, Allergic rhinitis due to pollen J30.1 [facility], [place] [id number] [place] [address] 58871- 7607 Dec, [facility], [place] [address] [address]- 8[address] October, Allergic rhinitis due to pollen J30.1 [facility], [place] [id number] [place] [address] 20956- 2559 October, Allergic rhinitis due to pollen J30.1 [place] [id number] [place] [address] 86945- 2978 Oct, [place] [id number] [place] [address] 35845- 8634 Oct, Allergic rhinitis due to pollen J30.1 [facility], [place] [id number] [place] [address] 99589- 4468 Oct, [place] [address] 99161- 3936 Oct, Allergic rhinitis due to pollen J30.1 [place] [id number] [place] [address] 13297- 7875 Oct, Severe persistent asthma with exacerbation J45.51 and Pneumonia due to Haemophilus influenzae, unspecified laterality, unspecified part of lung J14 [place] [id number] [place] [address] 06311- 6973 Oct, ADD (attention deficit disorder) F90.0 [place] [address] 60794- 8442 Aug, Haemophilus influenzae infection A49.2 [place] [id number] [place] [address] 37394- 6799 Aug, Cough productive of purulent sputum R05 [place] [id number] [place] [address] 78867- 9124 Aug, [place] [address] 88594- 6196 Aug, Pulmonary congestion R09.89 [place] [address] 05893- 2892 Aug, Severe persistent asthma with exacerbation J45.51 ; Hiatal hernia K44.9 and Gastroesophageal reflux disease without esophagitis K21.9 [place] [address] 99469- 7809 Aug, Other elevated white blood cell (WBC) count D72.[address] 47[address]- 8633 Aug, Uncomplicated severe persistent asthma J45.[address] 37329- 5895 Aug, Pure hypercholesterolemia E78.00 ; Uncomplicated severe persistent asthma J45.50 and Acquired hypothyroidism E03.[address] 63344- 6485 Aug, Acquired hypothyroidism E03.9 ; Pure hypercholesterolemia E78.00 and Uncomplicated severe persistent asthma J45.50 [place] [address] 71263- 1008 15 Aug, 2017 Allergic rhinitis due to pollen J30.1 [place] [address] 08133- 3798 Aug, Allergic rhinitis due to pollen J30.1 [place] [address] 72298- 0440 Aug, [facility] [address] [id number] Jul, Pharyngitis, unspecified etiology J02.9 and Lymphadenopathy R59.1 [place] [address] [place] [address] 6[address] Jul, ADD (attention deficit disorder) F90.0 [place] [address] 11163- 1195 Jul, Allergic rhinitis due to pollen J30.1 [place] [address] 73692- 4309 Jul, Dental examination Z01.20 [place] [address] 40282- 9129 Jun, Cough productive of purulent sputum R05 [place] [address] 72585- 7500 Jun, Allergic rhinitis due to pollen J30.1 [place] [address] 38013- 8724 Jun, [place] [address] 34803- 4656 Jun, Allergic rhinitis due to pollen J30.1 [place] [id number] [place] [address] 54546- 0715 Jun, Allergic rhinitis due to pollen J30.1 [place] [id number] [place] [address] 41176- 1242 May, Allergic rhinitis due to pollen J30.1 [place] [id number] [place] [address] 19407- 2344 May, Pneumonia due to Haemophilus influenzae, unspecified laterality, unspecified part of lung J14 [place] [id number] [place] [address] 04982- 0079 May, Allergic rhinitis due to pollen J30.1 [place] [id number] [place] [address] 19214- 2636 May, Other adverse food reactions, not elsewhere classified, initial encounter T78.1XXA and Pneumonia due to Haemophilus influenzae, unspecified laterality, unspecified part of lung J14 [place] [id number] [place] [address] 30822- 1120 13 May, 2017 Pneumonia due to Haemophilus influenzae, unspecified laterality, unspecified part of lung J14 [place] [id number] [place] [address] 17366- 3198 10 May, 2017 Multiple food allergies Z91.018 ; Uncomplicated severe persistent asthma J45.50 ; Cough productive of purulent sputum R05 and Uses central nervous system stimulants F15.90 [place] [address] 80467- 1741 Apr, Allergic rhinitis due to pollen J30.1 [place] [address] 26542- 0408 Apr, Allergic rhinitis due to pollen J30.1 [place] [address] 15337- 6762 Apr, Allergic rhinitis due to pollen J30.1 [place] [id number] [place] [address] 33218- 2628 Apr, ADD (attention deficit disorder) F90.0 [place] [address] 71790- 2441 28 Mar, 2017 Allergic rhinitis due to pollen J30.1 [place] [id number] [place] [address] 65383- 6369 Mar, Encounter for immunization Z23 [place] [address] 20283- 6961 19 Mar, 2017 [place] [id number] [place] [address] 97180- 5811 14 Mar, 2017 Allergic rhinitis due to pollen J30.1 [place] [id number] [place] [address] 39804- 9708 07 Mar, 2017 Allergic rhinitis due to pollen J30.1 [place] [address] 88245- 6551 Jan, Allergic rhinitis due to pollen J30.1 [place] [address] [place] [address] 23772- 6291 Jan, Allergic rhinitis due to pollen J30.1 [place] [id number] [place] [address] 67823- 8903 Dec, Uncomplicated severe persistent asthma J45.50 [place] [id number] [place] [address] 68663- 6476 Dec, Allergic rhinitis due to pollen J30.1 [place] [id number] [place] [address] 73838- 0682 Dec, Allergic rhinitis due to pollen J30.1 [place] [id number] [place] [address] 25722- 8420 Dec, Allergic rhinitis due to pollen J30.1 [place] [id number] [place] [address] 74570- 8307 Dec, ADD (attention deficit disorder) F90.0 [place] [id number] [place] [address] 77322- 3629 Dec, Allergic rhinitis due to pollen J30.1 [place] [id number] [place] [address] 50422- 9201 Dec, Visit for TB skin test Z11.1 and Screening for tuberculosis Z11.1 [place] [id number] [place] [address] 00302- 7163 Dec, Uncomplicated severe persistent asthma J45.50 ; Palpitations R00.2 ; Pericardial effusion (noninflammatory) I31.3 and Chest discomfort R07.89 [place] [id number] [place] [address] 00729- 8054 Dec, Allergic rhinitis due to pollen J30.1 [place] [id number] [place] [address] 59670- 4825 Dec, Chronic cough R05 [place] [address], [place] [address]- 4506 Dec, [place] [id number] [place] [address] 40478- 5426 Dec, Allergic rhinitis due to pollen J30.1 [facility], [place] [id number] [place] [address] 80632- 9396 Dec, Allergic rhinitis due to pollen J30.1 [facility], [place] [id number] [place] [address] 31986- 1586 Dec, Chronic cough R05 [place] [id number] [place] [address] 19355- 2223 October, Allergic rhinitis due to pollen J30.1 [place] [id number] [place] [address] 71730- 7469 October, Allergic rhinitis due to pollen J30.1 [place] [id number] [place] [address] 29281- 3639 October, [place] [id number] [place] [address] 58139- 6164 October, Asthma exacerbation J45.901 [place] [address] [place] [address] 67190- 7881 October, Asthma exacerbation J45.901 and Current chronic use of inhaled steroid Z79.51 [place] [address] [place] [address] 41327- 6635 October, Uncomplicated severe persistent asthma J45.50 [place] [address] [place] [address] 19625- 0873 October, Allergic rhinitis due to pollen J30.1 [place] [id number] [place] [address] 95610- 6403 Oct, [place] [id number] [place] [address] 06414- 9772 Oct, Asthma exacerbation J45.901 and Sputum production R05 [place] [address] [place] [address] 11626- 4958 Oct, Asthma exacerbation J45.901 [place] [id number] [place] [address] 46472- 5557 Oct, ADD (attention deficit disorder) F90.0 [place] [address] 951159- 2350 Oct, ADD (attention deficit disorder) F90.0 [place] [id number] [place] [address] 38892- 4135 Aug, Allergic rhinitis due to pollen J30.1 [place] [id number] [place] [address] 71327- 2360 Aug, Atypical pneumonia J18.9 [place] [address] 55564- 8968 Aug, Allergic rhinitis due to pollen J30.1 [place] [id number] [place] [address] 08309- 8163 Aug, Acquired hypothyroidism E03.9 [place] [address] 65821- 8987 Aug, Multiple food allergies Z91.018 ; Elevated blood pressure reading R03.0 and Anaphylaxis, subsequent encounter T78.2XXD [place] [id number] [place] [address] [id number] Aug, [place] [id number] [place] [address] 37420- 8170 Aug, Anaphylaxis, initial encounter T78.2XXA [place] [address] 32319- 0874 Aug, Allergic rhinitis due to pollen J30.1 [place] [id number] [place] [address] 74988- 8974 Aug, Dental examination Z01.20 [facility], [place] [id number] [place] [address] 64843- 0555 09 Aug, 2016 Allergic rhinitis due to pollen J30.1 [facility], [place] [id number] [place] [address] 12120- 6826 06 Aug, 2016 Acquired hypothyroidism E03.9 and Pure hypercholesterolemia E78.00 [place] [address] 54157- 1424 Aug, ADD (attention deficit disorder) F90.0 ; Acquired hypothyroidism E03.9 and Pure hypercholesterolemia E78.00 [place] [address] 71430- 7127 Aug, Asthma exacerbation J45.901 [place] [address] 24577- 8817 Jul, Allergic rhinitis due to pollen J30.1 [place] [address] 67774- 4131 Jul, Allergic rhinitis due to pollen J30.1 [place] [id number] [place] [address] 50491- 0861 Jul, [place] [id number] [place] [address] 26791- 6661 Jul, Allergic rhinitis due to pollen J30.1 [place] [id number] [place] [address] 03301- 6975 Jul, Other longterm (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 and ADD ( attention deficit disorder) F90.0 [place] [address] 80475- 2219 Jul, 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 and ADD ( attention deficit disorder) F90.0 [place] [id number] [place] [address] 31007- 0952 Jul, [place] [address] [place] [address]- 9697 Jun, Allergic rhinitis due to pollen J30.1 [facility], [place] [id number] [place] [address] 17642- 9568 Jun, Allergic rhinitis due to pollen J30.1 [facility], [place] [id number] [place] [address] 58870- 1130 Jun, [facility], [place] [id number] [place] [address] 62105- 0004 May, Allergic rhinitis due to pollen J30.1 [facility], [place] [id number] [place] [address] 48957- 9753 May, Allergic rhinitis due to pollen J30.1 [facility], [place] [id number] [place] [address] 38971- 6374 Apr, Allergic rhinitis due to pollen J30.1 [place] [id number] [place] [address] 86545- 5190 Apr, Allergic rhinitis due to pollen J30.1 [facility], [place] [id number] [place] [address] 40574- 4129 Apr, Encounter for immunization Z23 [facility], [place] [id number] [place] [address] 10163- 6663 Apr, [place] [id number] [place] [address] 81965- 4626 Mar, Allergic rhinitis due to pollen J30.1 [facility], [place] [id number] [place] [address] 47525- 7781 Mar, Multiple allergies Z88.9 [place] [id number] [place] [address] 29756- 9638 12 Mar, 2016 Candidal vaginitis B37.3 [facility], [place] [address] [place] [address] 63458- 6743 08 Mar, 2016 Allergic rhinitis due to pollen J30.1 [facility], [place] [address], [place] [address]- 7516 Jan, Asthma exacerbation J45.901 ; Fatigue, unspecified type R53.83 and Community acquired pneumonia J18.9 [facility] [address] [id number] Jan, Encounter for dental examination Z01.20 [facility], [place] [id number] [place] [address] 62554- 4564 Jan, Allergic rhinitis due to pollen J30.1 [facility], [place] [address] [place] [address] 83915- 9112 Dec, Allergic rhinitis due to pollen J30.1 [facility], [place] [id number] [place] [address] 55570- 8360 Dec, [facility], [place] [id number] [place] [address] 16495- 6847 Dec, Allergic rhinitis due to pollen J30.1 [facility], [place] [address] [place] [address] 12733- 0233 Dec, [facility], [place] [id number] [place] [address] 68020- 5537 Dec, [facility], [place] [address] [place] [address] 19716- 6191 Dec, [facility], [place] [address] [place] [address] 93001- 3571 Dec, Allergic rhinitis due to pollen J30.1 [facility], [place] [address] [place] [address] 52693- 3083 Dec, [facility], [place] [id number] [place] [address] 96929- 3209 Dec, [facility], [place] [address] [place] [address] 27707- 6746 Dec, Allergic rhinitis due to pollen J30.1 [facility], [place] [id number] [place] [address] 84362- 4857 October, Allergic rhinitis due to pollen J30.1 [place] [id number] [place] [address] 63550- 7434 October, Allergic rhinitis due to pollen J30.1 [place] [id number] [place] [address] 95877- 3455 October, [place] [id number] [place] [address] 42243- 6721 October, [place] [id number] [place] [address] 06403- 1325 October, ADD (attention deficit disorder) F90.0 ; Major depressive disorder, recurrent episode, mild F33.0 and Uncomplicated severe persistent asthma J45.50 [place] [id number] [place] [address] 36955- 1879 Oct, Allergic rhinitis due to pollen J30.1 [place] [id number] [place] [address] 26468- 4945 Oct, ADD (attention deficit disorder) F90.0 [place] [id number] [place] [address] 37095- 4493 Oct, Allergic rhinitis due to pollen 477.0 [place] [id number] [place] [address] 19105- 6686 Aug, Allergic rhinitis due to pollen 477.0 [place] [id number] [place] [address] 33403- 7975 Aug, 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 [place] [id number] [place] [address] 18500- 3234 Aug, [place] [id number] [place] [address] 14332- 8042 Aug, Allergic rhinitis due to pollen 477.0 [place] [id number] [place] [address] 68072- 7453 Aug, Allergic rhinitis due to pollen 477.0 [facility], [place] [address] [place] [address] 82990- 6883 Aug, Allergic rhinitis due to pollen 477.0 [facility], [place] [id number] [place] [address] 01015- 7462 Aug, Exposure to influenza Z20.828 [facility] [id number] [place] [address] [id number] 19 Aug, 2015 Encounter for dental examination and cleaning without abnormal findings Z01.20 [place] [id number] [place] [address] 66407- 8004 18 Aug, 2015 Allergic rhinitis due to pollen J30.1 [place] [id number] [place] [address] 16888- 9082 Aug, [place] [address] 23157- 6231 Aug, 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 [place] [id number] [place] [address] 80893- 5124 Jul, [place] [id number] [place] [address] 26520- 1559 Jul, Allergic rhinitis due to pollen 477.0 [place] [id number] [place] [address] 80491- 5544 Jul, [place] [id number] [place] [address] 33426- 8188 Jul, Allergic rhinitis due to pollen 477.0 [place] [id number] [place] [address] 63989- 2210 Jun, ADD (attention deficit disorder) F90.0 ; Acquired hypothyroidism E03.9 ; PCOS (polycystic ovarian syndrome) E28.2 ; Polyarthralgia M25.50 and On stimulant medication Z79.899 [place] [id number] [place] [address] 52761- 7195 16 Apr, 2015 Encounter for immunization Z23 [facility] [place] [id number] [place] [address] 27056- 2301 16 Mar, 2015 Allergic rhinitis due to pollen 477.0 [facility], [place] [address] [place] [address] 27473- 9073 14 Mar, 2015 Influenza vaccine administered V04.81 [facility], [place] [id number] [place] [address] [phone] Mar, [facility], [place] [id number] [place] [address] [phone]- [phone] Jan, Allergic rhinitis due to pollen 477.0 [facility], [place] [id number] [place] [address] [phone]- [phone] Jan, Allergic rhinitis due to pollen 477.0 [facility], [place] [id number] [place] [address] 19904- [phone] Jan, Allergic rhinitis due to pollen 477.0 [facility] [id number] [place] [address] [id number] Jan, Dental examination V72.2 [facility], [place] [id number] [place] [address] 49946- [phone] Dec, Allergic rhinitis due to pollen 477.0 [facility], [place] [id number] [place] [address] [phone]- 4522 October, [facility] [place] [id number] [place] [address] 31010- 1239 Oct, [facility], [place] [id number] [place] [address] 14332- 5105 Oct, [facility], [place] [id number] [place] [address] [phone]- [phone] Aug, [facility] [place] [id number] [place] [address] [id number]- [phone] Aug, [facility], [place] [id number] [place] [address] Aug, [facility] [place] [facility] [address] [id number] [place] [address] Aug, [facility] [place] [facility] [address] [id number] [place] [address] 2510 Aug, [facility] [place] [facility] [address] [id number] [place] [address] 4956 Aug, [facility] [place] [facility] [address] [id number] [place] [address] 0792 Aug, [facility] [place] [facility] [address] [id number] [place] [address]- 0193 Aug, [facility] [place] [facility] [address] [id number] [place] [address] 5742 Jul, [facility] [place] [facility] [address] [id number] [place] [address] 3603 Jul, [facility] [place] [facility] [address] [id number] [place] [address] Jul, [facility] [place] [facility] [address] [id number] [place] [address] Jul, [facility] [place] [facility] [address] [id number] [place] [address] Jul, [facility] [place] [facility] [address] [id number] [place] [address] Jul, [facility] [place] [facility] [address] [id number] [place] [address] Jul, [facility] [place] [facility] [address] [id number] [place] [address] Jul, [facility] [place] [facility] [address] [id number] [place] [address] Jul, [facility] [place] [facility] [address] [id number] [place] [address] Jul, [facility] [place] [facility] [address] [id number] [place] [address] 67[address] Jul, [facility] [place] [facility] [address] [id number] [place] [address] 8573 Jun, [facility] [place] [facility] [address] [id number] [place] [address] Jun, [facility] [place] [facility] [address] [id number] [place] [address]228 Jun, [facility] [place] [facility] [address] [id number] [place] [address] 9009 Jun, [facility] [place] [facility] [address] [id number] [place] [address]- 8274 Jun, [facility] [place] [facility] [address] [id number] [place] [address] 8454 Jun, [facility] [place] [facility] [address] [id number] [place] [address] 9459 May, [facility] [place] [facility] [address] [id number] [place] [address]- 7260 May, [facility] [place] [facility] [address] [id number] [place] [address]- 8769 May, [facility] [place] [facility] [address] [id number], [place] [address] May, [facility] [place] [facility] [address] [id number], [place] [address] May, [facility] [place] [facility] [address] [id number] [place] [address]- 9094 May, [facility] [place] [facility] [address] [id number], [place] [address] Apr, [facility] [place] [facility] [address] [id number] [place] [address]- 7577 Apr, [facility] [place] [facility] [address] [id number] [place] [address]- [address]77 30 Mar, 2013 [facility] [place] [facility] [address] [id number] [place] [address]- 5536 30 Mar, 2013 [facility] [place] [facility] [address] [id number] [place] [address] 2546 Mar, [facility] [place] [facility] [address] [id number] [place] [address] 2546 Mar, [facility] [place] [facility] [address] [id number] [place] [address] 2546 Mar, [facility] [place] [facility] [address] [id number] [place] [address]- 5205 Mar, [facility] [place] [facility] [address] [id number] [place] [address]- 1795 Jan, [facility] [place] [facility] [address] [id number] [place] [address]- 0698 Jan, [facility] [place] [facility] [address] [id number] [place] [address]- 1557 Jan, [facility] [place] [facility] [address] [id number] [place] [address]- 5427 Jan, [facility] [place] [facility] [address] [id number] [place] [address]- 1003 Jan, [facility] [place] [facility] [address] [id number] [place] [address]- 6231 Jan, [facility] [place] [facility] [address] [id number] [place] [address]- 2521 Dec, [facility] [place] [facility] [address] [id number] [place] [address]- 2320 Dec, [facility] [place] [facility] [address] [id number] [place] [address]- 0637 Dec, [facility] [place] [facility] [address] [id number] [place] [address]- 3438 Dec, [facility] [place] [facility] [address] [id number] [place] [address] 8887 Dec, [facility] [place] [facility] [address] [id number] [place] [address]- 6504 Dec, [facility] [place] [facility] [address] [id number] [place] [address] 9852 Dec, [facility] [place] [facility] [address] [id number] [place] [address]- 9547 Dec, [facility] [place] [facility] [address] [id number] [place] [address]- 5568 Dec, [facility] [place] [facility] [address] [id number] [place] [address]- 4451 Dec, [facility] [place] [facility] [address] [id number] [place] [address]- 6238 Dec, [facility] [place] [facility] [address] [id number] [place] [address]- 1103 Dec, [facility] [place] [facility] [address] [id number] [place] [address]- 1129 Dec, [facility] [place] [facility] [address] [id number] [place] [address]- 4233 Dec, [facility] [place] [facility] [address] [id number] [place] [address] 1000 Dec, [facility] [place] [facility] [address] [id number] [place] [address]- 9755 Dec, [facility] [place] [facility] [address] [id number] [place] [address]- 8559 October, [facility] [place] [facility] [address] [id number] [place] [address]- 6919 October, [facility] [place] [facility] [address] [id number] [place] [address]- 4187 October, [facility] [place] [facility] [address] [id number] [place] [address]- 7203 October, [facility] [place] [facility] [address] [id number] [place] [address]- 9013 October, [facility] [place] [facility] [address] [id number] [place] [address]- 1959 October, [facility] [place] [facility] [address] [id number] [place] [address]- 4875 Oct, [facility] [place] [facility] [address] [id number] [place] [address]- 2442 Oct, [facility] [place] [facility] [address] [id number] [place] [address]- 6759 Oct, [facility] [place] [facility] [address] [id number] [place] [address]- 1372 Oct, [facility] [place] [facility] [address] [id number] [place] [address]- 1812 Oct, [facility] [place] [facility] [address] [id number] [place] [address]- 4211 Oct, [facility] [place] [facility] [address] [id number] [place] [address]- 2884 Aug, [facility] [place] [facility] [address] [id number] [place] [address]- 3592 Aug, [facility] [place] [facility] [address] [id number] [place] [address]- 3134 Aug, [facility] [place] [facility] [address] [id number] [place] [address]- 1454 Aug, [facility] [place] [facility] [address] [id number] [place] [address]- 9305 Jul, [facility] [place] [facility] [address] [id number] [place] [address]- 9452 Jul, [facility] [place] [facility] [address] [id number] [place] [address]- 0089 Jul, [facility] [place] [facility] [address] [id number] [place] [address]- 3536 15 Jul, 2013 [facility] [address] [id number] [place] [address]- 5872 Jun, [facility] [address] [id number] [place] [address]- 3576 Jun, [facility] [address] [id number] [place] [address]- 8745 Jun, [facility] [address] [id number] [place] [address]- 2387 Jun, [facility] [address] [id number] [place] [address]- 9130 Jun, [facility] [address] [id number] [place] [address] Jun, [facility] [address] [id number] [place] [address]- 4676 Jun, [facility] [address] [id number] [place] [address]- 4672 Jun, [facility] [address] [id number] [place] [address]- 4402 Jun, [facility] [address] [id number] [place] [address]- 1607 Jun, [facility] [place] [facility] [address] [id number] [place] [address]- 4731 Jun, [facility] [address] [id number] [place] [address]- 9889 19 May, 2013 [facility] [place] [facility] [address] [id number] [place] [address]- 2006 May, [facility] [place] [facility] [address] [id number] [place] [address]- 2546 May, [facility] [place] [facility] [address] [id number] [place] [address]- 1039 May, [facility] [place] [facility] [address] [id number] [place] [address]- 8097 May, [facility] [place] [facility] [address] [id number] [place] [address]- 2755 May, [facility] [place] [facility] [address] [id number] [place] [address]- 6248 May, [facility] [place] [facility] [address] [id number] [place] [address]- 4045 Apr, [facility] [place] [facility] [address] [id number] [place] [address]- 5120 Apr, [facility] [place] [facility] [address] [id number] [place] [address]- 3747 Apr, [facility] [place] [facility] [address] [id number] [place] [address]- 0830 Apr, [facility] [place] [facility] [address] [id number] [place] [address]- 1134 27 Mar, 2013 [facility] [place] [facility] [address] [id number] [place] [address]- 1272 Mar, [facility] [place] [facility] [address] [id number] [place] [address]- 3088 Mar, [facility] [place] [facility] [address] [id number] [place] [address]- 7769 23 Mar, 2013 [facility] [place] [facility] [address] [id number], [place] [address]- 0448 04 Mar, 2013 [facility] [place] [facility] [address] [id number] [place] [address]- 1556 Mar, [facility] [place] [facility] [address] [id number] [place] [address]- 7554 30 Jan, 2013 [facility] [place] [facility] [address] [id number] [place] [address]- 9654 Jan, [facility] [place] [facility] [address] [id number] [place] [address]- 3094 Jan, [facility] [address] [id number] [place] [address]- 6442 Jan, [facility] [place] [facility] [address] [id number] [place] [address]- 3906 Jan, [facility] [place] [facility] [address] [id number] [place] [address]- 9843 Dec, [facility] [place] [facility] [address] [id number] [place] [address]- 1334 Dec, [facility] [place] [facility] [address] [id number] [place] [address]- 9568 Dec, [facility] [place] [facility] [address] [id number] [place] [address]- 8140 Dec, [facility] [address] [id number] [place] [address]- 9325 Dec, [facility] [place] [facility] [address] [id number] [place] [address]- 7946 Dec, [facility] [place] [facility] [address] [id number] [place] [address]- 0887 Dec, [facility] [place] [facility] [address] [id number] [place] [address]- 9256 Dec, [facility] [place] [facility] [address] [id number] [place] [address]- 1790 October, [facility] [place] [facility] [address] [id number] [place] [address]- 2290 October, [facility] [place] [facility] [address] [id number] [place] [address]- 4268 October, [facility] [place] [facility] [address] [id number] [place] [address]- 9561 24 Oct, 2012 [facility] [place] [facility] [address] [id number] [place] [address]- 7818 Oct, [facility] [place] [facility] [address] [id number] [place] [address]- 4966 Oct, [facility] [place] [facility] [address] [id number] [place] [address]- 3947 Oct, [facility] [place] [facility] [address] [id number] [place] [address]- 0786 Aug, [facility] [place] [facility] [address] [id number] [place] [address]- 5390 Aug, [facility] [place] [facility] [address] [id number] [place] [address]- 9260 Aug, [facility] [place] [facility] [address] [id number] [place] [address]- 8919 Jul, [facility] [place] [facility] [address] [id number] [place] [address]- 9641 May, [facility] [place] [facility] [address] [id number] [place] [address]- 4586 May, [facility] [place] [facility] [address] [id number] [place] [address]- 4858 Apr, [facility] [place] [facility] [address] [id number] [place] [address]- 8514 Apr, [facility] [place] [facility] [address] [id number] [place] [address]- 5549 Apr, [facility] [place] [facility] [address] [id number] [place] [address]- 1922 Apr, [facility] [place] [facility] [address] [id number] [place] [address]- 8390 Apr, [facility] [place] [facility] [address] [id number] [place] [address]- 4863 Apr, [facility] [place] [facility] [address] [id number] [place] [address]- 4398 Apr, [facility] [place] [facility] [address] [id number] [place] [address]- 9197 Apr, [facility] [place] [facility] [address] [id number] [place] [address]- 0900 Apr, [facility] [place] [facility] [address] [id number] [place] [address]- 9486 Apr, [facility] [place] [facility] [address] [id number] [place] [address]- 7408 Apr, [facility] [place] [facility] [address] [id number] [place] [address]- 7701 Apr, [facility] [place] [facility] [address] [id number] [place] [address]- 4483 Mar, [facility] [place] [facility] [address] [id number] [place] [address]- 0902 Jan, [facility] [place] [facility] [address] [id number] [place] [address]- 8916 Dec, [facility] [place] [facility] [address] [id number] [place] [address]- 2670 October, [facility] [place] [facility] [address] [id number] [place] [address]- 2582 Oct, [facility] [place] [facility] [address] [id number] [place] [address]- 3962 Oct, [facility] [place] [facility] [address] [id number] [place] [address]- 7242 Oct, [facility] [place] [facility] [address] [id number] [place] [address]- 0425 Aug, [facility] [place] [facility] [address] [id number] [place] [address]- 7572 Aug, [facility] [place] [facility] [address] [id number] [place] [address]- 7167 29 Aug, 2011 [facility] [place] [facility] [address] [id number] [place] [address]- 0856 Aug, [facility] [place] [facility] [id number], [place] [address] 8977 15 Aug, 2011 [facility] [place] [address] [id number], [place] [address] 02 Aug, 2011 [facility] [place] [id number], [place] [address]- 5196 Jun, [facility] [place] [id number], [place] [address]- 3509 Apr, [facility] [place] [id number], [place] [address]- 9877 Jun, [facility] [place] [id number], [place] [address] Jun, [facility] [place] [id number] [address]117 May, [facility] [place] [id number], [place] [address]- 4240 May, [facility] [place] [id number], [place] [address]- 3093 Apr, [facility] [place] [address] [id number] [address] Apr, IMMUNIZATIONS No Known Immunizations SOCIAL HISTORY Never Assessed REASON FOR VISIT Lab (walk-in) PLAN OF CARE VITAL SIGNS MEDICATIONS Unknown Medications RESULTS No Results PROCEDURES Procedure Date Ordered Result Body Site CULTURE, BODY FLUID (STERILE) September 08, 2017 INSTRUCTIONS MEDICATIONS ADMINISTERED No Known Medications [...] see above surgeries Hospitalization History Anaphylactic shock-[facility] [place] 08/23/16
--- OUTSIDE RECORDS SUMMARY | 2018-07-18 07:31 | XMS REPORT ---
Author Author BRANDY SAGAR [facility] Address [address] [place] [address] Care Team Providers Care Riding Double Name Role Phone BRANDYTEZ HOYTHANY Unavailable PROBLEMS Type Condition ICD9-CM Code NRE77-TD Code Onset Dates Condition Status SNOMED Code Problem Migraine with aura and without status migrainosus, not intractable G43.109 Active 1534870 Problem PCOS (polycystic ovarian syndrome) E28.2 Active 84751755 Problem Uncomplicated severe persistent asthma J45.50 Active 350979160 Problem Severe persistent asthma with exacerbation J45.51 Active 902907732 Problem Other elevated white blood cell (WBC) count D72.828 Active 428981806 Problem Multiple food allergies Z91.018 Active 382447597 Problem Pure hypercholesterolemia E78.00 Active 248097986 Problem Current chronic use of inhaled steroid Z79.51 Active 261542186 Problem Asthma exacerbation J45.901 Active 036913377 Problem ADD (attention deficit disorder) F90.0 Active 631688071 Problem Allergic rhinitis due to pollen J30.1 Active 56890978 Problem Vitamin D deficiency E55.9 Active 03332581 Problem Major depressive disorder, recurrent episode, mild F33.0 Active 403535426 Problem Acquired hypothyroidism E03.9 Active 740976047 Problem Gastroesophageal reflux disease without esophagitis K21.9 Active 480588995 ALLERGIES No Information ENCOUNTERS Encounter Location Date Diagnosis [facility] [address] [facility] [id number] [address] Dec, Allergic rhinitis due to pollen J30.1 [facility] [address], [place] [address] Dec, ADD (attention deficit disorder) F90.0 [facility] [id number] [address] Dec, ADD (attention deficit disorder) F90.0 and Uncomplicated severe persistent asthma J45.50 [facility] [id number] [place] [address] 59170- 1053 Dec, Allergic rhinitis due to pollen J30.1 [facility] [id number] [place] [address] 06712- 8796 Dec, [facility] [address] [address]65- 2124 October, Allergic rhinitis due to pollen J30.1 [facility] [id number] [place] [address] 02093- 2951 October, Allergic rhinitis due to pollen J30.1 [place] [id number] [place] [address] 97657- 9291 Oct, [place] [id number] [place] [address] 03329- 5877 Oct, Allergic rhinitis due to pollen J30.1 [facility] [id number] [place] [address] 13788- 0223 Oct, [place] [address] 73270- 3863 Oct, Allergic rhinitis due to pollen J30.1 [place] [id number] [place] [address] 37583- 5026 Oct, Severe persistent asthma with exacerbation J45.51 and Pneumonia due to Haemophilus influenzae, unspecified laterality, unspecified part of lung J14 [place] [id number] [place] [address] 59236- 7957 Oct, ADD (attention deficit disorder) F90.0 [place] [address] 17755- 6627 Aug, Haemophilus influenzae infection A49.2 [place] [id number] [place] [address] 67530- 3616 Aug, Cough productive of purulent sputum R05 [place] [id number] [place] [address] 07052- 8965 Aug, [place] [address] 20571- 7726 Aug, Pulmonary congestion R09.89 [place] [address] 00990- 7493 Aug, Severe persistent asthma with exacerbation J45.51 ; Hiatal hernia K44.9 and Gastroesophageal reflux disease without esophagitis K21.9 [place] [address] 47029- 2945 Aug, Other elevated white blood cell (WBC) count D72.[address] 31812- 5633 Aug, Uncomplicated severe persistent asthma J45.[address] 77851- 4203 Aug, Pure hypercholesterolemia E78.00 ; Uncomplicated severe persistent asthma J45.50 and Acquired hypothyroidism E03.[address] 77918- 9779 Aug, Acquired hypothyroidism E03.9 ; Pure hypercholesterolemia E78.00 and Uncomplicated severe persistent asthma J45.50 [place] [address] 29138- 3563 15 Aug, 2017 Allergic rhinitis due to pollen J30.1 [place] [address] 34691- 7286 Aug, Allergic rhinitis due to pollen J30.1 [place] [address] 58528- 8433 Aug, [facility] [address] [id number] Jul, Pharyngitis, unspecified etiology J02.9 and Lymphadenopathy R59.1 [place] [address] [place] [address]- 6164 Jul, ADD (attention deficit disorder) F90.0 [place] [address] 47931- 2172 Jul, Allergic rhinitis due to pollen J30.1 [place] [address] 15109- 5042 Jul, Dental examination Z01.20 [place] [address] 56169- 9627 Jun, Cough productive of purulent sputum R05 [place] [address] 13471- 9797 Jun, Allergic rhinitis due to pollen J30.1 [place] [address] 50116- 0650 Jun, [place] [address] 88761- 8999 Jun, Allergic rhinitis due to pollen J30.1 [place] [id number] [place] [address] 26288- 7810 Jun, Allergic rhinitis due to pollen J30.1 [place] [id number] [place] [address] 49781- 2618 May, Allergic rhinitis due to pollen J30.1 [place] [id number] [place] [address] 99971- 3711 May, Pneumonia due to Haemophilus influenzae, unspecified laterality, unspecified part of lung J14 [place] [id number] [place] [address] 09375- 1574 May, Allergic rhinitis due to pollen J30.1 [place] [id number] [place] [address] 68961- 3495 May, Other adverse food reactions, not elsewhere classified, initial encounter T78.1XXA and Pneumonia due to Haemophilus influenzae, unspecified laterality, unspecified part of lung J14 [place] [id number] [place] [address] 57877- 0226 13 May, 2017 Pneumonia due to Haemophilus influenzae, unspecified laterality, unspecified part of lung J14 [place] [id number] [place] [address] 35892- 0894 10 May, 2017 Multiple food allergies Z91.018 ; Uncomplicated severe persistent asthma J45.50 ; Cough productive of purulent sputum R05 and Uses central nervous system stimulants F15.90 [place] [address] 05686- 8734 Apr, Allergic rhinitis due to pollen J30.1 [place] [address] 56512- 8526 Apr, Allergic rhinitis due to pollen J30.1 [place] [address] 45374- 9630 Apr, Allergic rhinitis due to pollen J30.1 [place] [id number] [place] [address] 53074- 5755 Apr, ADD (attention deficit disorder) F90.0 [place] [address] 45521- 9294 28 Mar, 2017 Allergic rhinitis due to pollen J30.1 [place] [id number] [place] [address] 53529- 1838 Mar, Encounter for immunization Z23 [place] [address] 21877- 1377 19 Mar, 2017 [place] [id number] [place] [address] 96213- 6011 14 Mar, 2017 Allergic rhinitis due to pollen J30.1 [place] [id number] [place] [address] 55881- 8064 07 Mar, 2017 Allergic rhinitis due to pollen J30.1 [place] [address] 08939- 9369 Jan, Allergic rhinitis due to pollen J30.1 [place] [address] [place] [address] 70735- 8529 Jan, Allergic rhinitis due to pollen J30.1 [place] [id number] [place] [address] 24646- 1841 Dec, Uncomplicated severe persistent asthma J45.50 [place] [id number] [place] [address] 38957- 5792 Dec, Allergic rhinitis due to pollen J30.1 [place] [id number] [place] [address] 97818- 7609 Dec, Allergic rhinitis due to pollen J30.1 [place] [id number] [place] [address] 31142- 8285 Dec, Allergic rhinitis due to pollen J30.1 [place] [id number] [place] [address] 33977- 5078 Dec, ADD (attention deficit disorder) F90.0 [place] [id number] [place] [address] 27538- 6569 Dec, Allergic rhinitis due to pollen J30.1 [place] [id number] [place] [address] 97525- 8571 Dec, Screening for tuberculosis Z11.1 and Visit for TB skin test Z11.1 [place] [id number] [place] [address] 03956- 9088 Dec, Uncomplicated severe persistent asthma J45.50 ; Palpitations R00.2 ; Pericardial effusion (noninflammatory) I31.3 and Chest discomfort R07.89 [place] [id number] [place] [address] 93154- 8208 Dec, Allergic rhinitis due to pollen J30.1 [place] [id number] [place] [address] 98930- 3237 Dec, Chronic cough R05 [place] [address], [place] [address]- 5611 Dec, [place] [id number] [place] [address] 70035- 0185 Dec, Allergic rhinitis due to pollen J30.1 [facility] [id number] [place] [address] 11489- 4168 Dec, Allergic rhinitis due to pollen J30.1 [facility] [id number] [place] [address] 00598- 0658 Dec, Chronic cough R05 [place] [id number] [place] [address] 28229- 1823 October, Allergic rhinitis due to pollen J30.1 [place] [id number] [place] [address] 82827- 3836 October, Allergic rhinitis due to pollen J30.1 [place] [id number] [place] [address] 03079- 3581 October, [place] [id number] [place] [address] 90364- 7083 October, Asthma exacerbation J45.901 [place] [id number] [place] [address] 24020- 1014 October, Asthma exacerbation J45.901 and Current chronic use of inhaled steroid Z79.51 [place] [id number] [place] [address] 99911- 3058 October, Uncomplicated severe persistent asthma J45.50 [place] [address] [place] [address] 70332- 0288 October, Allergic rhinitis due to pollen J30.1 [place] [id number] [place] [address] 10155- 1196 Oct, [place] [id number] [place] [address] 52609- 9131 Oct, Asthma exacerbation J45.901 and Sputum production R05 [place] [address] [place] [address] 31377- 8687 Oct, Asthma exacerbation J45.901 [place] [id number] [place] [address] 67530- 6007 Oct, ADD (attention deficit disorder) F90.0 [place] [address] 131565- 2499 Oct, ADD (attention deficit disorder) F90.0 [place] [id number] [place] [address] 73137- 1864 Aug, Allergic rhinitis due to pollen J30.1 [place] [id number] [place] [address] 15844- 0232 Aug, Atypical pneumonia J18.9 [place] [address] 20303- 1723 Aug, Allergic rhinitis due to pollen J30.1 [place] [id number] [place] [address] 23070- 3507 Aug, Acquired hypothyroidism E03.9 [place] [address] 43059- 3843 Aug, Multiple food allergies Z91.018 ; Elevated blood pressure reading R03.0 and Anaphylaxis, subsequent encounter T78.2XXD [place] [id number] [place] [address] [id number] Aug, [place] [id number] [place] [address] 62473- 0093 Aug, Anaphylaxis, initial encounter T78.2XXA [place] [address] 31824- 5791 Aug, Allergic rhinitis due to pollen J30.1 [place] [id number] [place] [address] 74967- 5127 Aug, Dental examination Z01.20 [facility] [id number] [place] [address] 03715- 9750 09 Aug, 2016 Allergic rhinitis due to pollen J30.1 [facility] [id number] [place] [address] 92689- 2890 06 Aug, 2016 Acquired hypothyroidism E03.9 and Pure hypercholesterolemia E78.00 [place] [address] 31331- 6724 Aug, ADD (attention deficit disorder) F90.0 ; Acquired hypothyroidism E03.9 and Pure hypercholesterolemia E78.00 [place] [address] 71459- 4292 Aug, Asthma exacerbation J45.901 [place] [address] 28126- 6509 Jul, Allergic rhinitis due to pollen J30.1 [place] [address] 53189- 4014 Jul, Allergic rhinitis due to pollen J30.1 [place] [id number] [place] [address] 90161- 7434 Jul, [place] [id number] [place] [address] 34739- 1740 Jul, Allergic rhinitis due to pollen J30.1 [place] [id number] [place] [address] 78577- 5025 Jul, Other retirement (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 and ADD ( attention deficit disorder) F90.0 [place] [address] 05006- 7883 Jul, 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 and ADD ( attention deficit disorder) F90.0 [place] [id number] [place] [address] 46404- 0336 Jul, [place] [address] [place] [address]- 4182 Jun, Allergic rhinitis due to pollen J30.1 [facility] [id number] [place] [address] 06703- 4640 Jun, Allergic rhinitis due to pollen J30.1 [facility] [id number] [place] [address] 50534- 7067 Jun, [facility] [id number] [place] [address] 77724- 6445 May, Allergic rhinitis due to pollen J30.1 [facility] [id number] [place] [address] 20306- 4629 May, Allergic rhinitis due to pollen J30.1 [facility] [id number] [place] [address] 97765- 0898 Apr, Allergic rhinitis due to pollen J30.1 [place] [id number] [place] [address] 13986- 1743 Apr, Allergic rhinitis due to pollen J30.1 [facility] [id number] [place] [address] 41246- 3915 Apr, Encounter for immunization Z23 [facility] [id number] [place] [address] 38884- 2869 Apr, [place] [id number] [place] [address] 54250- 5161 Mar, Allergic rhinitis due to pollen J30.1 [facility] [id number] [place] [address] 81820- 0806 Mar, Multiple allergies Z88.9 [place] [id number] [place] [address] 55656- 4528 12 Mar, 2016 Candidal vaginitis B37.3 [facility] [address] [place] [address] 65783- 0926 08 Mar, 2016 Allergic rhinitis due to pollen J30.1 [facility] [address], [place] [address]- 9693 Jan, Asthma exacerbation J45.901 ; Fatigue, unspecified type R53.83 and Community acquired pneumonia J18.9 [facility] [address] [id number] Jan, Encounter for dental examination Z01.20 [facility] [id number] [place] [address] 17308- 1484 Jan, Allergic rhinitis due to pollen J30.1 [facility] [address] [place] [address] 96822- 9245 Dec, Allergic rhinitis due to pollen J30.1 [facility] [id number] [place] [address] 00212- 0598 Dec, [facility] [id number] [place] [address] 07723- 6227 Dec, Allergic rhinitis due to pollen J30.1 [facility] [address] [place] [address] 17008- 0374 Dec, [facility] [id number] [place] [address] 07963- 5922 Dec, [facility] [address] [place] [address] 48245- 7690 Dec, [facility] [address] [place] [address] 34973- 7109 Dec, Allergic rhinitis due to pollen J30.1 [facility] [address] [place] [address] 28116- 9035 Dec, [facility] [id number] [place] [address] 02136- 8670 Dec, [facility] [address] [place] [address] 94560- 4028 Dec, Allergic rhinitis due to pollen J30.1 [facility] [id number] [place] [address] 32488- 8054 October, Allergic rhinitis due to pollen J30.1 [place] [id number] [place] [address] 53150- 9279 October, Allergic rhinitis due to pollen J30.1 [place] [id number] [place] [address] 75458- 8953 October, [place] [id number] [place] [address] 62653- 1635 October, [place] [id number] [place] [address] 67867- 2165 October, ADD (attention deficit disorder) F90.0 ; Major depressive disorder, recurrent episode, mild F33.0 and Uncomplicated severe persistent asthma J45.50 [place] [id number] [place] [address] 48399- 2386 Oct, Allergic rhinitis due to pollen J30.1 [place] [id number] [place] [address] 51571- 6038 Oct, ADD (attention deficit disorder) F90.0 [place] [id number] [place] [address] 08123- 5843 Oct, Allergic rhinitis due to pollen 477.0 [place] [id number] [place] [address] 43671- 9815 Aug, Allergic rhinitis due to pollen 477.0 [place] [id number] [place] [address] 27589- 2660 Aug, 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 [place] [id number] [place] [address] 07548- 0606 Aug, [place] [id number] [place] [address] 85070- 6729 Aug, Allergic rhinitis due to pollen 477.0 [place] [id number] [place] [address] 41454- 3786 Aug, Allergic rhinitis due to pollen 477.0 [facility] [address] [place] [address] 86278- 1128 Aug, Allergic rhinitis due to pollen 477.0 [facility] [id number] [place] [address] 51376- 5534 Aug, Exposure to influenza Z20.828 [facility] [id number] [place] [address] [id number] 19 Aug, 2015 Encounter for dental examination and cleaning without abnormal findings Z01.20 [place] [id number] [place] [address] 76967- 7121 18 Aug, 2015 Allergic rhinitis due to pollen J30.1 [place] [id number] [place] [address] 70999- 5707 Aug, [place] [address] 33438- 8568 Aug, 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 [place] [id number] [place] [address] 24209- 2667 Jul, [place] [id number] [place] [address] 96231- 5771 Jul, Allergic rhinitis due to pollen 477.0 [place] [id number] [place] [address] 05003- 7433 Jul, [place] [id number] [place] [address] 84367- 3814 Jul, Allergic rhinitis due to pollen 477.0 [place] [id number] [place] [address] 92857- 5683 Jun, ADD (attention deficit disorder) F90.0 ; Acquired hypothyroidism E03.9 ; PCOS (polycystic ovarian syndrome) E28.2 ; Polyarthralgia M25.50 and On stimulant medication Z79.899 [place] [id number] [place] [address] 17314- 9190 16 Apr, 2015 Encounter for immunization Z23 [facility] [id number] [place] [address] 40607- 2337 16 Mar, 2015 Allergic rhinitis due to pollen 477.0 [facility] [address] [place] [address] 13770- 1982 14 Mar, 2015 Influenza vaccine administered V04.81 [facility] [id number] [place] [address] 89050- 4159 Mar, [facility] [id number] [place] [address] 69912- 1479 Jan, Allergic rhinitis due to pollen 477.0 [facility] [id number] [place] [address] 97783- 3323 Jan, Allergic rhinitis due to pollen 477.0 [facility] [id number] [place] [address] 03845- 5761 Jan, Allergic rhinitis due to pollen 477.0 [facility] [id number] [place] [address] [id number] Jan, Dental examination V72.2 [facility] [id number] [place] [address] 39440- 9279 Dec, Allergic rhinitis due to pollen 477.0 [facility] [address] [place] [address] 26996- 3154 October, [facility] [id number] [place] [address] 49760- 4671 Oct, [facility] [address] [place] [address] 62719- 2745 Oct, [facility] [id number] [place] [address] 63264- 1433 Aug, [facility] [id number] [place] [address]72- 4692 Aug, [facility] [id number] [place] [address] Aug, [facility] [place] [facility] [address] [id number] [place] [address] Aug, [facility] [place] [facility] [address] [id number] [place] [address] Aug, [facility] [place] [facility] [address] [id number] [place] [address] 8836 Aug, [facility] [place] [facility] [address] [id number] [place] [address] 9849 Aug, [facility] [place] [facility] [address] [id number] [place] [address] Aug, [facility] [place] [facility] [address] [id number] [place] [address] Jul, [facility] [place] [facility] [address] [id number] [place] [address]- [address]199 Jul, [facility] [place] [facility] [address] [id number] [place] [address]- 9[address] Jul, [facility] [place] [facility] [address] [id number] [place] [address]- [address] Jul, [facility] [place] [facility] [address] [id number] [place] [address]- [address] Jul, [facility] [place] [facility] [address] [id number] [place] [address]- 1595 Jul, [facility] [place] [facility] [address] [id number] [place] [address]- 1441 Jul, [facility] [place] [facility] [address] [id number] [place] [address]- 59[address] Jul, [facility] [place] [facility] [address] [id number] [place] [address]- 6735 Jul, [facility] [place] [facility] [address] [id number] [place] [address] 14[address] Jul, [facility] [place] [facility] [address] [id number] [place] [address] Jul, [facility] [place] [facility] [address] [id number] [place] [address]- [address] Jun, [facility] [place] [facility] [address] [id number] [place] [address] Jun, [facility] [place] [facility] [address] [id number] [place] [address] Jun, [facility] [place] [facility] [address] [id number] [place] [address] Jun, [facility] [place] [facility] [address] [id number] [place] [address] 67[address] Jun, [facility] [place] [facility] [address] [id number] [place] [address] 1577 Jun, [facility] [place] [facility] [address] [id number] [place] [address] 2820 May, [facility] [place] [facility] [address] [id number] [place] [address] 3073 May, [facility] [place] [facility] [address] [id number] [place] [address]- 9317 May, [facility] [place] [facility] [address] [id number], [place] [address] May, [facility] [place] [facility] [address] [id number], [place] [address] May, [facility] [place] [facility] [address] [id number] [place] [address] 3171 May, [facility] [place] [facility] [address] [id number], [place] [address] Apr, [facility] [place] [facility] [address] [id number] [place] [address]- 8698 Apr, [facility] [place] [facility] [address] [id number] [place] [address] 3971 30 Mar, 2013 [facility] [place] [facility] [address] [id number] [place] [address]- [address] 30 Mar, 2013 [facility] [place] [facility] [address] [id number] [place] [address] 2546 Mar, [facility] [place] [facility] [address] [id number] [place] [address] 2546 Mar, [facility] [place] [facility] [address] [id number] [place] [address] 2546 Mar, [facility] [place] [facility] [address] [id number] [place] [address]- 4291 Mar, [facility] [place] [facility] [address] [id number] [place] [address]- 1632 Jan, [facility] [place] [facility] [address] [id number] [place] [address]- 9873 Jan, [facility] [place] [facility] [address] [id number] [place] [address]- 0332 Jan, [facility] [place] [facility] [address] [id number] [place] [address]- 3867 Jan, [facility] [place] [facility] [address] [id number] [place] [address]- 0766 Jan, [facility] [place] [facility] [address] [id number] [place] [address]- 0480 Jan, [facility] [place] [facility] [address] [id number] [place] [address]- 3795 Dec, [facility] [place] [facility] [address] [id number] [place] [address]- 2134 Dec, [facility] [place] [facility] [address] [id number] [place] [address]- 7403 Dec, [facility] [place] [facility] [address] [id number] [place] [address]- 0048 Dec, [facility] [place] [facility] [address] [id number] [place] [address]- 7117 Dec, [facility] [place] [facility] [address] [id number] [place] [address]- 8610 Dec, [facility] [place] [facility] [address] [id number] [place] [address]- 4871 Dec, [facility] [place] [facility] [address] [id number] [place] [address]- 0169 Dec, [facility] [place] [facility] [address] [id number] [place] [address]- 4136 Dec, [facility] [place] [facility] [address] [id number] [place] [address]- 9121 Dec, [facility] [place] [facility] [address] [id number] [place] [address]- 6433 Dec, [facility] [place] [facility] [address] [id number] [place] [address]- 9302 Dec, [facility] [place] [facility] [address] [id number] [place] [address]- 4971 Dec, [facility] [place] [facility] [address] [id number] [place] [address]- 7774 Dec, [facility] [place] [facility] [address] [id number] [place] [address]- 3322 Dec, [facility] [place] [facility] [address] [id number] [place] [address]- 7582 Dec, [facility] [place] [facility] [address] [id number] [place] [address]- 2596 October, [facility] [place] [facility] [address] [id number] [place] [address]- 1562 October, [facility] [place] [facility] [address] [id number] [place] [address]- 8783 October, [facility] [place] [facility] [address] [id number] [place] [address]- 7177 October, [facility] [place] [facility] [address] [id number] [place] [address]- 7433 October, [facility] [place] [facility] [address] [id number] [place] [address]- 9522 October, [facility] [place] [facility] [address] [id number] [place] [address]- 2489 Oct, [facility] [place] [facility] [address] [id number] [place] [address]- 6464 Oct, [facility] [place] [facility] [address] [id number] [place] [address]- 6862 Oct, [facility] [place] [facility] [address] [id number] [place] [address]- 3544 Oct, [facility] [place] [facility] [address] [id number] [place] [address]- 1759 Oct, [facility] [place] [facility] [address] [id number] [place] [address]- 4838 Oct, [facility] [place] [facility] [address] [id number] [place] [address]- 2790 Aug, [facility] [place] [facility] [address] [id number] [place] [address]- 1523 Aug, [facility] [place] [facility] [address] [id number] [place] [address]- 9697 Aug, [facility] [place] [facility] [address] [id number] [place] [address]- 3259 Aug, [facility] [place] [facility] [address] [id number] [place] [address]- 0568 Jul, [facility] [place] [facility] [address] [id number] [place] [address]- 8124 Jul, [facility] [place] [facility] [address] [id number] [place] [address]- 1151 Jul, [facility] [place] [facility] [address] [id number] [place] [address]- 7616 15 Jul, 2013 [facility] [address] [id number] [place] [address]- 8810 Jun, [facility] [address] [id number] [place] [address]- 2476 Jun, [facility] [address] [id number] [place] [address]- 3863 Jun, [facility] [address] [id number] [place] [address]- 4298 Jun, [facility] [address] [id number] [place] [address]- 6018 Jun, [facility] [address] [id number] [place] [address] Jun, [facility] [address] [id number] [place] [address]- 3652 Jun, [facility] [address] [id number] [place] [address]- 4009 Jun, [facility] [address] [id number] [place] [address]- 9637 Jun, [facility] [address] [id number] [place] [address]- 1697 Jun, [facility] [place] [facility] [address] [id number] [place] [address]- 1348 Jun, [facility] [address] [id number] [place] [address]- 1656 19 May, 2013 [facility] [place] [facility] [address] [id number] [place] [address]- 9994 May, [facility] [place] [facility] [address] [id number] [place] [address]- 2546 May, [facility] [place] [facility] [address] [id number] [place] [address]- 5251 May, [facility] [place] [facility] [address] [id number] [place] [address]- 6666 May, [facility] [place] [facility] [address] [id number] [place] [address]- 0324 May, [facility] [place] [facility] [address] [id number] [place] [address]- 4744 May, [facility] [place] [facility] [address] [id number] [place] [address]- 8717 Apr, [facility] [place] [facility] [address] [id number] [place] [address]- 3407 Apr, [facility] [place] [facility] [address] [id number] [place] [address]- 5683 Apr, [facility] [place] [facility] [address] [id number] [place] [address]- 4698 Apr, [facility] [place] [facility] [address] [id number] [place] [address]- 1233 27 Mar, 2013 [facility] [place] [facility] [address] [id number] [place] [address]- 1893 Mar, [facility] [place] [facility] [address] [id number] [place] [address]- 0035 Mar, [facility] [place] [facility] [address] [id number] [place] [address]- 3816 23 Mar, 2013 [facility] [place] [facility] [address] [id number], [place] [address]- 7053 04 Mar, 2013 [facility] [place] [facility] [address] [id number] [place] [address]- 8708 Mar, [facility] [place] [facility] [address] [id number] [place] [address]- 6997 30 Jan, 2013 [facility] [place] [facility] [address] [id number] [place] [address]- 8553 Jan, [facility] [place] [facility] [address] [id number] [place] [address]- 4578 Jan, [facility] [address] [id number] [place] [address]- 2859 Jan, [facility] [place] [facility] [address] [id number] [place] [address]- 0358 Jan, [facility] [place] [facility] [address] [id number] [place] [address]- 8477 Dec, [facility] [place] [facility] [address] [id number] [place] [address]- 3963 Dec, [facility] [place] [facility] [address] [id number] [place] [address]- 2394 Dec, [facility] [place] [facility] [address] [id number] [place] [address]- 4926 Dec, [facility] [address] [id number] [place] [address]- 1378 Dec, [facility] [place] [facility] [address] [id number] [place] [address]- 4912 Dec, [facility] [place] [facility] [address] [id number] [place] [address]- 2721 Dec, [facility] [place] [facility] [address] [id number] [place] [address]- 7215 Dec, [facility] [place] [facility] [address] [id number] [place] [address]- 4468 October, [facility] [place] [facility] [address] [id number] [place] [address]- 4089 October, [facility] [place] [facility] [address] [id number] [place] [address]- 9841 October, [facility] [place] [facility] [address] [id number] [place] [address]- 2465 24 Oct, 2012 [facility] [place] [facility] [address] [id number] [place] [address]- 6780 Oct, [facility] [place] [facility] [address] [id number] [place] [address]- 6756 Oct, [facility] [place] [facility] [address] [id number] [place] [address]- 8120 Oct, [facility] [place] [facility] [address] [id number] [place] [address]- 6186 Aug, [facility] [place] [facility] [address] [id number] [place] [address]- 0877 Aug, [facility] [place] [facility] [address] [id number] [place] [address]- 3579 Aug, [facility] [place] [facility] [address] [id number] [place] [address]- 1614 Jul, [facility] [place] [facility] [address] [id number] [place] [address]- 3497 May, [facility] [place] [facility] [address] [id number] [place] [address]- 6784 May, [facility] [place] [facility] [address] [id number] [place] [address]- 0124 Apr, [facility] [place] [facility] [address] [id number] [place] [address]- 3518 Apr, [facility] [place] [facility] [address] [id number] [place] [address]- 3968 Apr, [facility] [place] [facility] [address] [id number] [place] [address]- 7187 Apr, [facility] [place] [facility] [address] [id number] [place] [address]- 0872 Apr, [facility] [place] [facility] [address] [id number] [place] [address]- 3546 Apr, [facility] [place] [facility] [address] [id number] [place] [address]- 2980 Apr, [facility] [place] [facility] [address] [id number] [place] [address]- 0868 Apr, [facility] [place] [facility] [address] [id number] [place] [address]- 7189 Apr, [facility] [place] [facility] [address] [id number] [place] [address]- 4696 Apr, [facility] [place] [facility] [address] [id number] [place] [address]- 4191 Apr, [facility] [place] [facility] [address] [id number] [place] [address]- 1274 Apr, [facility] [place] [facility] [address] [id number] [place] [address]- 3455 Mar, [facility] [place] [facility] [address] [id number] [place] [address]- 5871 Jan, [facility] [place] [facility] [address] [id number] [place] [address]- 2803 Dec, [facility] [place] [facility] [address] [id number] [place] [address]- 1033 October, [facility] [place] [facility] [address] [id number] [place] [address]- 7654 Oct, [facility] [place] [facility] [address] [id number] [place] [address]- 9053 Oct, [facility] [place] [facility] [address] [id number] [place] [address]- 2576 Oct, [facility] [place] [facility] [address] [id number] [place] [address]- 2763 Aug, [facility] [place] [facility] [address] [id number] [place] [address]- 3914 Aug, [facility] [place] [facility] [address] [id number] [place] [address]- 5288 29 Aug, 2011 [facility] [place] [facility] [address] [id number] [place] [address]- 5476 Aug, [facility] [place] [facility] [id number] [address]- 6636 15 Aug, 2011 [facility] [id number], [place] [address]- 8616 Aug, [facility] [id number], [place] [address] 2546 Jun, [facility] [id number], [place] [address]- 9470 Apr, [facility] [id number], [place] [address]- 1278 Jun, [facility] [id number], [place] [address]- 4859 Jun, [facility] [id number], [place] [address]- 0621 May, [facility] [id number], [place] [address]- 8118 May, [facility] [id number] [place] [address]- 6549 Apr, [facility] [address] [id number] [address]- 8011 Apr, IMMUNIZATIONS No Known Immunizations SOCIAL HISTORY Never Assessed REASON FOR VISIT Xray results PLAN OF CARE VITAL SIGNS MEDICATIONS Medication Instructions Dosage Frequency Start Date End Date Duration Status Pulmozyme 1 MG/ML Inhalation Once a day 2.5 ml 24h Aug, Active RESULTS No Results PROCEDURES No Known [...] History see above surgeries Hospitalization History Anaphylactic shock-[facility] 08/23/16
--- OUTSIDE RECORDS SUMMARY | 2018-07-18 07:32 | XMS REPORT ---
Author Author BRANDY SAGAR [facility] Address [address] [place] [address] Care Team Providers Care Greens Cutter Name Role Phone SAGAR NAVA Unavailable PROBLEMS Type Condition ICD9-CM Code AXF52-CG Code Onset Dates Condition Status SNOMED Code Problem Migraine with aura and without status migrainosus, not intractable G43.109 Active 3109477 Problem PCOS (polycystic ovarian syndrome) E28.2 Active 81129123 Problem Uncomplicated severe persistent asthma J45.50 Active 520998988 Problem Severe persistent asthma with exacerbation J45.51 Active 403094702 Problem Other elevated white blood cell (WBC) count D72.828 Active 016498251 Problem Multiple food allergies Z91.018 Active 771985893 Problem Pure hypercholesterolemia E78.00 Active 891215265 Problem Current chronic use of inhaled steroid Z79.51 Active 775215542 Problem Asthma exacerbation J45.901 Active 006223308 Problem ADD (attention deficit disorder) F90.0 Active 074178060 Problem Allergic rhinitis due to pollen J30.1 Active 02534912 Problem Vitamin D deficiency E55.9 Active 44639822 Problem Major depressive disorder, recurrent episode, mild F33.0 Active 598950175 Problem Acquired hypothyroidism E03.9 Active 167429441 Problem Gastroesophageal reflux disease without esophagitis K21.9 Active 306982891 ALLERGIES No Information ENCOUNTERS Encounter Location Date Diagnosis [facility] [id number] [address] Dec, [facility] [id number] [address] Oct, [facility] [address] [address] Oct, Allergic rhinitis due to pollen J30.1 [facility] [address] [place] [address] 68015- 5301 Oct, [facility] [id number] [place] [address] 26321- 3233 Oct, Allergic rhinitis due to pollen J30.1 [facility] [place] [address] 54992- 7884 13 Oct, 2017 Severe persistent asthma with exacerbation J45.51 and Pneumonia due to Haemophilus influenzae, unspecified laterality, unspecified part of lung J14 [facility] [id number] [place] [address] 42675- 5785 Oct, ADD (attention deficit disorder) F90.[address] 7[address]76- 7847 Aug, Haemophilus influenzae infection A49.[address] 78608- 5257 Aug, Cough productive of purulent sputum R05 [facility] [address] 9[address]14- 7041 Aug, [address] 33546- 5126 Aug, Pulmonary congestion R09.[address] 59890- 4567 Aug, Severe persistent asthma with exacerbation J45.51 ; Hiatal hernia K44.9 and Gastroesophageal reflux disease without esophagitis K21.9 [facility] [id number] [place] [address] 61379- 9923 Aug, Other elevated white blood cell (WBC) count D72.[address] 97608- 6400 Aug, Uncomplicated severe persistent asthma J45.[address] 96140- 6963 Aug, Pure hypercholesterolemia E78.00 ; Uncomplicated severe persistent asthma J45.50 and Acquired hypothyroidism E03.9 [facility] [address] 78112- 6653 Aug, Acquired hypothyroidism E03.9 ; Pure hypercholesterolemia E78.00 and Uncomplicated severe persistent asthma J45.50 [facility] [address] 64467- 8836 15 Aug, 2017 Allergic rhinitis due to pollen J30.1 [facility] [facility] [address] 40072- 5427 Aug, Allergic rhinitis due to pollen J30.1 [facility] [address] 50643- 8973 Aug, [place] [address] [id number] Jul, Pharyngitis, unspecified etiology J02.9 and Lymphadenopathy R59.1 [place] [address] 23971- 2165 Jul, ADD (attention deficit disorder) F90.[address] 09039- 2333 Jul, Allergic rhinitis due to pollen J30.1 [facility] [address] 96079- 2012 Jul, Dental examination Z01.20 [facility] [address] 84742- 3087 Jun, Cough productive of purulent sputum R05 [place] [address] 65501- 2171 Jun, Allergic rhinitis due to pollen J30.1 [facility] [place] [address] 79427- 7147 Jun, [facility] [address] 02470- 2615 Jun, Allergic rhinitis due to pollen J30.1 [facility] [address] [address] 4099 Jun, Allergic rhinitis due to pollen J30.1 [facility] [address] [place] [address] 30973- 9730 May, Allergic rhinitis due to pollen J30.1 [facility] [id number] [place] [address] 62879- 5856 May, Pneumonia due to Haemophilus influenzae, unspecified laterality, unspecified part of lung J14 [facility] [place] [id number] [place] [address] 66968- 6703 May, Allergic rhinitis due to pollen J30.1 [facility] [id number] [place] [address] 20418- 4469 May, Other adverse food reactions, not elsewhere classified, initial encounter T78.1XXA and Pneumonia due to Haemophilus influenzae, unspecified laterality, unspecified part of lung J14 [facility] [id number] [place] [address] 88907- 9811 May, Pneumonia due to Haemophilus influenzae, unspecified laterality, unspecified part of lung J14 [facility] [id number] [place] [address] 28291- 2923 May, Multiple food allergies Z91.018 ; Uncomplicated severe persistent asthma J45.50 ; Cough productive of purulent sputum R05 and Uses central nervous system stimulants F15.90 [facility] [address] [place] [address] 02210- 2618 Apr, Allergic rhinitis due to pollen J30.1 [facility] [id number] [place] [address] 14935- 8462 Apr, Allergic rhinitis due to pollen J30.1 [facility] [id number] [place] [address] 52752- 2670 Apr, Allergic rhinitis due to pollen J30.1 [facility] [id number] [place] [address] 71402- 7121 Apr, ADD (attention deficit disorder) F90.0 [place] [address] 28923- 5002 28 Mar, 2017 Allergic rhinitis due to pollen J30.1 [facility] [address] 67752- 2836 21 Mar, 2017 Encounter for immunization Z23 [place] [address] 04665- 9366 19 Mar, 2017 [place] [address] 70512- 8940 14 Mar, 2017 Allergic rhinitis due to pollen J30.1 [facility] [facility] [address] 11945- 6923 07 Mar, 2017 Allergic rhinitis due to pollen J30.1 [facility] [address] 03504- 1951 Jan, Allergic rhinitis due to pollen J30.1 [facility] [id number] [place] [address] 68812- 5983 Jan, Allergic rhinitis due to pollen J30.1 [facility] [id number] [place] [address] 93129- 4595 Dec, Uncomplicated severe persistent asthma J45.50 [facility] [id number] [place] [address] 94712- 1153 Dec, Allergic rhinitis due to pollen J30.1 [facility] [place] [id number] [place] [address] 59932- 0731 Dec, Allergic rhinitis due to pollen J30.1 [facility] [id number] [place] [address] 68196- 5494 Dec, Allergic rhinitis due to pollen J30.1 [facility] [id number] [place] [address] 53297- 9340 13 David, 2017 ADD (attention deficit disorder) F90.0 [place] [address] [place] [address] 49683- 2696 Dec, Allergic rhinitis due to pollen J30.1 [facility] [id number] [place] [address] 01035- 8595 Dec, Visit for TB skin test Z11.1 and Screening for tuberculosis Z11.1 [place] [address] 83217- 8588 Dec, Uncomplicated severe persistent asthma J45.50 ; Palpitations R00.2 ; Pericardial effusion (noninflammatory) I31.3 and Chest discomfort R07.89 [place] [id number] [place] [address] 13184- 4535 Dec, Allergic rhinitis due to pollen J30.1 [facility] [id number] [place] [address] 07320- 8672 Dec, Chronic cough R05 [facility] [id number] [place] [address] 55067- 3534 Dec, [facility] [id number] [place] [address] 72871- 4036 Dec, Allergic rhinitis due to pollen J30.1 [facility] [id number] [place] [address] 79694- 6596 Dec, Allergic rhinitis due to pollen J30.1 [facility] [id number] [place] [address] 35011- 0668 Dec, Chronic cough R05 [facility] [facility] [id number] [place] [address] 74378- 7404 October, Allergic rhinitis due to pollen J30.1 [facility] [facility] [id number] [place] [address] 36515- 7498 October, Allergic rhinitis due to pollen J30.1 [facility] [place] [id number] [place] [address] 69752- 8344 October, [facility] [address] [place] [address] 27182- 5396 October, Asthma exacerbation J45.901 [facility] [id number] [place] [address] 12288- 2312 October, Asthma exacerbation J45.901 and Current chronic use of inhaled steroid Z79.51 [facility] [address] 96420- 3636 October, Uncomplicated severe persistent asthma J45.50 [facility] [id number] [place] [address] 18548- 6540 October, Allergic rhinitis due to pollen J30.1 [facility] [id number] [place] [address] 20830- 9658 Oct, [facility] [address] 79255- 1812 Oct, Asthma exacerbation J45.901 and Sputum production R05 [facility] [id number] [place] [address] 43602- 1314 Oct, Asthma exacerbation J45.901 [facility] [id number] [place] [address] 66012- 5699 Oct, ADD (attention deficit disorder) F90.0 [facility] [facility] [id number] [place] [address] 91785- 9946 Oct, ADD (attention deficit disorder) F90.0 [place] [id number] [place] [address] 99406- 1268 Aug, Allergic rhinitis due to pollen J30.1 [facility] [id number] [place] [address] 14276- 0460 Aug, Atypical pneumonia J18.9 [facility] [id number] [place] [address] 14152- 0408 Aug, Allergic rhinitis due to pollen J30.1 [place] [address] 85998- 3660 Aug, Acquired hypothyroidism E03.9 [place] [address] 52082- 1675 Aug, Multiple food allergies Z91.018 ; Elevated blood pressure reading R03.0 and Anaphylaxis, subsequent encounter T78.2XXD [address] [id number] Aug, [place] [address] 19443- 6801 Aug, Anaphylaxis, initial encounter T78.2XXA [address] 85113- 5860 Aug, Allergic rhinitis due to pollen J30.[address] 92191- 4555 Aug, Dental examination Z01.20 [place] [address] 16606- 1032 Aug, Allergic rhinitis due to pollen J30.1 [place] [address] 80633- 2808 Aug, Acquired hypothyroidism E03.9 and Pure hypercholesterolemia E78.[address] 44537- 2519 Aug, ADD (attention deficit disorder) F90.0 ; Acquired hypothyroidism E03.9 and Pure hypercholesterolemia E78.00 [place] [address] 22223- 0086 Aug, Asthma exacerbation J45.901 [place] [address] 12048- 5475 Jul, Allergic rhinitis due to pollen J30.1 [place] [address] 77369- 0623 Jul, Allergic rhinitis due to pollen J30.1 [facility] [address] [address]- 9562 Jul, [facility] [address] [place] [address] 59778- 5624 Jul, Allergic rhinitis due to pollen J30.1 [facility] [address] [place] [address] 38343- 1993 Jul, Other longterm (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 and ADD ( attention deficit disorder) F90.0 [facility] [id number] [place] [address] 50383- 8058 Jul, Other longterm (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 and ADD ( attention deficit disorder) F90.0 [place] [id number] [place] [address] 48676- 1733 Jul, [facility] [id number] [place] [address] 59361- 5190 Jun, Allergic rhinitis due to pollen J30.1 [facility] [id number] [place] [address] 94476- 7001 Jun, Allergic rhinitis due to pollen J30.1 [facility] [address] [place] [address] 93525- 2605 Jun, [facility] [id number] [place] [address] 20750- 5170 May, Allergic rhinitis due to pollen J30.1 [facility] [address], [place] [address]- 0508 May, Allergic rhinitis due to pollen J30.1 [facility] [id number] [place] [address] 41882- 7196 Apr, Allergic rhinitis due to pollen J30.1 [facility] [address] [place] [address] 03443- 0984 Apr, Allergic rhinitis due to pollen J30.1 [facility] [address] [place] [address] 75129- 3817 Apr, Encounter for immunization Z23 [facility] [id number] [place] [address] 73829- 6779 Apr, [facility] [id number] [place] [address] 32976- 5262 Mar, Allergic rhinitis due to pollen J30.1 [facility] [id number] [place] [address] 10612- 1830 Mar, Multiple allergies Z88.9 [facility] [id number] [place] [address] 68143- 7014 Mar, Candidal vaginitis B37.3 [place] [id number] [place] [address] 59655- 4535 Mar, Allergic rhinitis due to pollen J30.1 [facility] [id number] [place] [address] 30936- 3000 Jan, Asthma exacerbation J45.901 ; Fatigue, unspecified type R53.83 and Community acquired pneumonia J18.9 [facility] [address] [place] [address] [id number] Jan, Encounter for dental examination Z01.20 [facility] [address] [place] [address] 17537- 1711 Jan, Allergic rhinitis due to pollen J30.1 [facility] [address] [place] [address] 58802- 5455 Dec, Allergic rhinitis due to pollen J30.1 [facility] [id number] [place] [address] 09972- 3141 Dec, [facility] [id number] [place] [address] 58965- 3065 Dec, Allergic rhinitis due to pollen J30.1 [facility] [id number] [address]- 5556 Dec, [facility] [id number] [place] [address] 12798- 7535 Dec, [facility] [address], [place] [address]- 0024 Dec, [facility] [address] [place] [address] 11619- 7757 Dec, Allergic rhinitis due to pollen J30.1 [facility] [address] [place] [address] 23884- 9431 Dec, [facility] [id number] [place] [address] 26562- 8362 Dec, [facility] [id number] [place] [address] 16335- 7243 Dec, Allergic rhinitis due to pollen J30.1 [facility] [id number] [place] [address] 66602- 3731 October, Allergic rhinitis due to pollen J30.1 [facility] [address] [place] [address] 41118- 2231 October, Allergic rhinitis due to pollen J30.1 [facility] [address] [place] [address] 48984- 3282 October, [facility] [address] [place] [address] 88040- 6552 October, [facility] [address] [place] [address] 18927- 2266 October, ADD (attention deficit disorder) F90.0 ; Major depressive disorder, recurrent episode, mild F33.0 and Uncomplicated severe persistent asthma J45.50 [facility] [address] [address]- 5932 Oct, Allergic rhinitis due to pollen J30.1 [facility] [id number] [place] [address] 06098- 9180 Oct, ADD (attention deficit disorder) F90.0 [facility] [id number] [place] [address] 32709- 6618 Oct, Allergic rhinitis due to pollen 477.0 [facility] [id number] [place] [address] 71366- 4590 Aug, Allergic rhinitis due to pollen 477.0 [facility] [id number] [place] [address] 04056- 3147 Aug, 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 [facility] [id number] [place] [address] 25451- 3862 Aug, [facility] [id number] [place] [address] 81905- 6220 Aug, Allergic rhinitis due to pollen 477.0 [place] [id number] [place] [address] 48862- 4466 Aug, Allergic rhinitis due to pollen 477.0 [facility] [id number] [place] [address] 85012- 0271 Aug, Allergic rhinitis due to pollen 477.0 [facility] [id number] [place] [address] 30492- 5296 Aug, Exposure to influenza Z20.828 [facility] [id number] [place] [address] [id number] Aug, Encounter for dental examination and cleaning without abnormal findings Z01.20 [facility] [id number] [place] [address] 92529- 5004 Aug, Allergic rhinitis due to pollen J30.1 [facility] [id number] [place] [address] 77310- 7028 Aug, [facility] [id number] [place] [address] 62366- 1466 Aug, 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 [place] [id number] [place] [address] 00257- 4075 Jul, [place] [address] 29959- 2057 Jul, Allergic rhinitis due to pollen 477.0 [place] [address] 07955- 6973 Jul, [place] [address] 48651- 8296 Jul, Allergic rhinitis due to pollen 477.0 [place] [address] 72661- 8005 Jun, ADD (attention deficit disorder) F90.0 ; Acquired hypothyroidism E03.9 ; PCOS (polycystic ovarian syndrome) E28.2 ; Polyarthralgia M25.50 and On stimulant medication Z79.899 [place] [address] 48519- 7215 Apr, Encounter for immunization Z23 [address] 23289- 4655 16 Mar, 2015 Allergic rhinitis due to pollen 477.0 [place] [id number] [place] [address] 05932- 2220 Mar, Influenza vaccine administered V04.81 [place] [address] 73510- 6570 Mar, [place] [address] 22134- 3233 Jan, Allergic rhinitis due to pollen 477.0 [place] [address] 62732- 0037 Jan, Allergic rhinitis due to pollen 477.0 [place] [address] 23508- 9669 Jan, Allergic rhinitis due to pollen 477.0 [facility] [address] [id number] [id number] 14 Jan, 2015 Dental examination V72.2 [facility] [address] [address]- 4578 Dec, Allergic rhinitis due to pollen 477.0 [facility] [address] [address]- 8433 October, [facility] [address] [address]- 3350 Oct, [facility] [address] [address]- 6979 Oct, [facility] [address] [address]- 5311 Aug, [facility] [address] [address]- 2834 Aug, [facility] [address] [address]- 3101 Aug, [facility] [address] [address]- 9402 Aug, [facility] [address] [address]- 0886 Aug, [facility] [address] [address]- 1796 Aug, [facility] [address] [address]- 5556 Aug, [facility] [address] [address]- 5370 Aug, [facility] [address] [address] 3296 Jul, [facility] [address] [address]- 2483 Jul, [facility] [place] [facility] [address] [id number] [place] [address] 10 Jul, 2014 [facility] [place] [facility] [address] [id number] [place] [address] Jul, [facility] [place] [facility] [address] [id number] [place] [address] Jul, [facility] [place] [facility] [address] [id number] [place] [address] Jul, [facility] [place] [facility] [address] [id number] [place] [address] Jul, [facility] [place] [facility] [address] [id number] [place] [address] Jul, [facility] [place] [facility] [address] [id number] [place] [address] Jul, [facility] [place] [facility] [address] [id number] [place] [address] Jul, [facility] [place] [facility] [address] [id number] [place] [address] Jul, [facility] [place] [facility] [address] [id number] [place] [address] Jun, [facility] [place] [facility] [address] [id number] [place] [address] Jun, [facility] [place] [facility] [address] [id number] [place] [address] Jun, [facility] [place] [facility] [address] [id number] [place] [address] Jun, [facility] [place] [facility] [address] [id number] [place] [address] Jun, [facility] [place] [facility] [address] [id number] [place] [address] Jun, [facility] [place] [facility] [address] [id number] [place] [address] May, [facility] [place] [facility] [address] [id number] [place] [address] May, [facility] [place] [facility] [address] [id number] [place] [address] May, [facility] [place] [facility] [address] [id number] [place] [address] May, [facility] [place] [facility] [address] [id number] [place] [address] May, [facility] [place] [facility] [address] [id number] [place] [address] May, [facility] [place] [facility] [address] [id number] [place] [address] Apr, [facility] [place] [facility] [address] [id number] [place] [address] Apr, [facility] [place] [facility] [address] [id number] [place] [address] 30 Mar, 2014 [facility] [place] [facility] [address] [id number] [place] [address] 30 Mar, 2014 [facility] [place] [facility] [address] [id number] [place] [address] 30 Mar, 2014 [facility] [place] [facility] [address] [id number] [place] [address] 30 Mar, 2014 [facility] [facility] [address] [id number] [address] Mar, [facility] [place] [facility] [address] [id number] [place] [address] Mar, [facility] [place] [facility] [address] [id number] [place] [address] Jan, [facility] [place] [facility] [address] [id number] [place] [address] Jan, [facility] [place] [facility] [address] [id number] [place] [address] 8973 Jan, [facility] [place] [facility] [address] [id number] [place] [address] 56[address] Jan, [facility] [place] [facility] [address] [id number] [place] [address] Jan, [facility] [place] [facility] [address] [id number] [place] [address]- [address] Jan, [facility] [place] [facility] [address] [id number] [place] [address]- [address]348 Dec, [facility] [place] [facility] [address] [id number] [place] [address] 3949 Dec, [facility] [place] [facility] [address] [id number] [place] [address]- 1289 Dec, [facility] [place] [facility] [address] [id number] [place] [address] 3299 Dec, [facility] [place] [facility] [address] [id number] [place] [address] 1990 Dec, [facility] [place] [facility] [address] [id number] [place] [address]- [address]604 Dec, [facility] [place] [facility] [address] [id number] [place] [address]- 1585 Dec, [facility] [place] [facility] [address] [id number] [place] [address]- 5692 Dec, [facility] [place] [facility] [address] [id number] [place] [address]- 5568 Dec, [facility] [place] [facility] [address] [id number] [place] [address]- 6989 Dec, [facility] [place] [facility] [address] [id number] [place] [address]- 2870 Dec, [facility] [place] [facility] [address] [id number] [place] [address]- [address]335 Dec, [facility] [place] [facility] [address] [id number] [place] [address] 1848 Dec, [facility] [place] [facility] [address] [id number] [place] [address]- 7133 Dec, [facility] [place] [facility] [address] [id number] [place] [address]- 7366 Dec, [facility] [place] [facility] [address] [id number] [place] [address]- 7409 Dec, [facility] [place] [facility] [address] [id number] [place] [address]- [address] October, [facility] [place] [facility] [address] [id number] [place] [address]- 8238 October, [facility] [address] [id number] [place] [address]- 2812 October, [facility] [place] [facility] [address] [id number] [place] [address]- 7863 October, [facility] [address] [id number] [place] [address]- 7993 October, [facility] [address] [id number] [place] [address]- 5785 October, [facility] [place] [address] [id number] [place] [address]- 7540 Oct, [facility] [address] [id number] [place] [address]- 1822 Oct, [facility] [address] [id number] [place] [address]- 7360 Oct, [facility] [address] [id number] [place] [address]- 2909 Oct, [facility] [address] [id number] [place] [address]- 3372 Oct, [facility] [address] [id number], [place] [address] Oct, [facility] [address] [id number] [place] [address]- 3694 Aug, [facility] [address] [id number] [place] [address] Aug, [facility] [address] [id number] [place] [address]- 0957 Aug, [facility] [address] [id number] [place] [address]- 4960 Aug, [facility] [address] [id number] [place] [address]- 7229 Jul, [facility] [address] [id number] [place] [address]- [address]26 Jul, [facility] [address] [id number] [place] [address]- 1824 Jul, [facility] [address] [id number] [place] [address]- 2086 Jul, [facility] [address] [id number] [place] [address]- 2608 Jun, [facility] [address] [id number] [place] [address]- 4743 31 Jun, 2013 [facility] [address] [id number] [place] [address]- 1667 24 Jun, 2013 [facility] [address] [id number] [place] [address]- 6303 24 Jun, 2013 [facility] [address] [id number] [place] [address] 20 Jun, 2013 [facility] [address] [id number] [place] [address] 18 Jun, 2013 [facility] [address] [id number] [place] [address] 18 Jun, 2013 [facility] [address] [id number] [place] [address]- 7564 Jun, [facility] [address] [id number] [place] [address]- 6248 Jun, [facility] [address] [id number] [place] [address]- 8309 Jun, [facility] [address] [id number] [place] [address]- 6284 Jun, [facility] [address] [id number] [place] [address]- 0548 May, [facility] [address] [id number] [place] [address]- 6957 May, [facility] [address] [id number] [place] [address]- 9803 May, [facility] [address] [id number] [place] [address]- 3302 May, [facility] [address] [id number] [place] [address]- 0111 May, [facility] [address] [id number] [place] [address]- 0876 May, [facility] [address] [id number] [place] [address]- 8563 May, [facility] [address] [id number] [place] [address]- 0249 Apr, [facility] [address] [id number] [place] [address]- 9145 Apr, [facility] [address] [id number] [place] [address]- 5139 Apr, [facility] [address] [id number] [place] [address]- 2546 Apr, [facility] [address] [id number] [place] [address]- 2201 Mar, [facility] [address] [id number] [place] [address]- 8561 Mar, 2012 [facility] [address] [id number] [place] [address]- 1928 Mar, [facility] [address] [id number] [place] [address]- 3193 Mar, 2012 [facility] [address] [id number] [place] [address]- 5040 Mar, [facility] [address] [id number] [place] [address]- 5616 Mar, [facility] [address] [id number] [place] [address]- 7446 Jan, [facility] [address] [id number] [place] [address]- 4066 Jan, [facility] [address] [id number] [place] [address]- 8303 Jan, [facility] [address] [id number] [place] [address]- 0935 Jan, [facility] [address] [id number] [place] [address]- 3984 Jan, [facility] [address] [id number] [place] [address]- 9866 Dec, [facility] [address] [id number] [place] [address]- 3179 Dec, [facility] [address] [id number] [place] [address]- 2063 Dec, [facility] [address] [id number] [place] [address]- 1237 Dec, [facility] [address] [id number] [place] [address]- 7381 Dec, [facility] [address] [id number] [place] [address]- 5713 Dec, [facility] [address] [id number] [place] [address]- 2838 Dec, [facility] [address] [id number] [place] [address]- 8845 Dec, [facility] [address] [id number] [place] [address]- 7112 October, [facility] [address] [id number] [place] [address]- 5885 October, [facility] [address] [id number] [place] [address]- 5678 October, [facility] [address] [id number] [place] [address]- 0775 Oct, [facility] [address] [id number] [place] [address]- 8765 Oct, [facility] [address] [id number] [place] [address]- 9992 Oct, [facility] [address] [id number] [place] [address]- 7107 Oct, [facility] [address] [id number] [place] [address]- 1860 Aug, [facility] [address] [id number] [place] [address]- 7196 Aug, [facility] [address] [id number] [place] [address]- 6038 05 Aug, 2012 [facility] [address] [id number] [place] [address]- 7864 Jul, [facility] [address] [id number] [place] [address]- 1176 May, [facility] [address] [id number] [place] [address]- 6957 May, [facility] [address] [id number] [place] [address]- 0155 Apr, [facility] [address] [id number] [place] [address]- 7550 Apr, [facility] [address] [id number] [place] [address]- 3666 Apr, [facility] [address] [id number] [place] [address]- 7601 Apr, [facility] [address] [id number] [place] [address]- 4750 Apr, [facility] [address] [id number] [place] [address]- 8332 Apr, [facility] [address] [id number] [place] [address]- 6621 Apr, [facility] [address] [id number] [place] [address]- 5218 Apr, [facility] [address] [id number] [place] [address]- 3421 Apr, [facility] [address] [id number] [place] [address]- 8960 Apr, [facility] [address] [id number] [place] [address]- 3179 Apr, [facility] [address] [id number] [place] [address]- 1249 Apr, [facility] [address] [id number] [place] [address]- 3178 Mar, [facility] [address] [id number] [place] [address]- 9006 Jan, [facility] [address] [id number] [place] [address] 2546 Dec, [facility] [address] [id number] [place] [address]- 2297 October, [facility] [address] [id number] [place] [address]- 7388 Oct, [facility] [address] [id number] [place] [address]- 7926 Oct, [facility] [address] [id number] [place] [address]- 3333 Oct, [facility] [address] [id number] [place] [address]- 4200 Aug, [facility] [address] [id number] [place] [address]- 8301 Aug, [facility] [address] [id number] [place] [address]- 3689 29 Aug, 2011 [facility] [address] [id number] [place] [address]- 2951 16 Aug, 2011 [facility] [address] [id number] [place] [address]- 1524 15 Aug, 2011 [facility] [address] [id number] [place] [address]- 1685 Aug, [facility] [address] [id number] [place] [address]- 3407 Jun, [facility] [address] [id number] [place] [address]- 6880 Apr, [facility] [address] [id number] [place] [address]- 1059 Jun, [facility] [address] [id number] [place] [address]- 0161 Jun, [facility] [address] [facility] [id number] [place] [address]- 5192 May, [facility] [address] [id number] [place] [address]- 7060 May, [facility] [address] [facility] [id number] [place] [address]- 1820 15 Apr, 2009 [facility] [address] [facility] [id number] [place] [address]- 3733 13 Apr, 2009 IMMUNIZATIONS No Known Immunizations SOCIAL HISTORY Never Assessed REASON FOR VISIT Allergy injection(s) patricia keith PLAN OF CARE Activity Details Follow Up 1 Week Reason: VITAL SIGNS MEDICATIONS Unknown Medications RESULTS No Results PROCEDURES Procedure Date Ordered Result Body Site IMMUNOTHERAPY, 2 OR MORE INJECTIONS 2017-04-21 N/A IMMUNOTHERAPY INJECTIONS Apr 21, 2017 INSTRUCTIONS MEDICATIONS ADMINISTERED No Known Medications [...] History see above surgeries Hospitalization History An[facility]actic [facility] 08/[facility]/16
--- OUTSIDE RECORDS SUMMARY | 2018-07-18 07:32 | XMS REPORT ---
Author Author BRANDY SAGAR [facility] Address [address] [place] [address] Care Team Providers Care Operating Room Surgical Technologist Name Role Phone BRANDYTEZ HOYTHANY Unavailable PROBLEMS Type Condition ICD9-CM Code AEQ03-QM Code Onset Dates Condition Status SNOMED Code Problem Migraine with aura and without status migrainosus, not intractable G43.109 Active 2464511 Problem PCOS (polycystic ovarian syndrome) E28.2 Active 59814850 Problem Uncomplicated severe persistent asthma J45.50 Active 462198519 Problem Severe persistent asthma with exacerbation J45.51 Active 145827904 Problem Other elevated white blood cell (WBC) count D72.828 Active 652004297 Problem Multiple food allergies Z91.018 Active 402695664 Problem Pure hypercholesterolemia E78.00 Active 655951816 Problem Current chronic use of inhaled steroid Z79.51 Active 884909759 Problem Asthma exacerbation J45.901 Active 163248926 Problem ADD (attention deficit disorder) F90.0 Active 305734031 Problem Allergic rhinitis due to pollen J30.1 Active 64868545 Problem Vitamin D deficiency E55.9 Active 87379113 Problem Major depressive disorder, recurrent episode, mild F33.0 Active 735959222 Problem Acquired hypothyroidism E03.9 Active 662880654 Problem Gastroesophageal reflux disease without esophagitis K21.9 Active 046860044 ALLERGIES No Information ENCOUNTERS Encounter Location Date Diagnosis [facility] [id number] [place] [address] 16445- 8596 Dec, ADD (attention deficit disorder) F90.0 [facility] [address] [place] [address] 75327- 7091 Dec, ADD (attention deficit disorder) F90.0 and Uncomplicated severe persistent asthma J45.50 [facility] [address] [place] [address] 75765- 7185 Dec, Allergic rhinitis due to pollen J30.1 [facility] [id number] [place] [address] 47528- 6412 Dec, [facility] [id number] [place] [address] 30205- 4460 October, Allergic rhinitis due to pollen J30.1 [facility] [id number] [place] [address] 73807- 9569 October, Allergic rhinitis due to pollen J30.1 [facility] [id number] [place] [address] 92472- 0387 Oct, [facility] [id number] [place] [address] 88225- 4857 Oct, Allergic rhinitis due to pollen J30.1 [facility] [id number] [place] [address] 58709- 2970 Oct, [facility] [id number] [place] [address] 40505- 0979 Oct, Allergic rhinitis due to pollen J30.1 [place] [id number] [place] [address] 61099- 3295 Oct, Severe persistent asthma with exacerbation J45.51 and Pneumonia due to Haemophilus influenzae, unspecified laterality, unspecified part of lung J14 [place] [address] [place] [address] 03438- 2828 Oct, ADD (attention deficit disorder) F90.0 [place] [id number] [place] [address] 26682- 9889 Aug, Haemophilus influenzae infection A49.2 [place] [id number] [place] [address] 40163- 9255 Aug, Cough productive of purulent sputum R05 [place] [id number] [place] [address] 92650- 7021 Aug, [facility] [address] [id number]- 7553 08 Aug, 2017 Pulmonary congestion R09.89 [place] 899558- 5657 Aug, Severe persistent asthma with exacerbation J45.51 ; Hiatal hernia K44.9 and Gastroesophageal reflux disease without esophagitis K21.9 [place] [id number]- 7383 Aug, Other elevated white blood cell (WBC) count D72.828 [place] [address] 617341- 3062 Aug, Uncomplicated severe persistent asthma J45.50 [place] 899554- 663 Aug, Pure hypercholesterolemia E78.00 ; Uncomplicated severe persistent asthma J45.50 and Acquired hypothyroidism E03.[address] 61031- 1344 Aug, Acquired hypothyroidism E03.9 ; Pure hypercholesterolemia E78.00 and Uncomplicated severe persistent asthma J45.[address] 80261- 1127 15 Aug, 2017 Allergic rhinitis due to pollen J30.[address] 14512- 2323 Aug, Allergic rhinitis due to pollen J30.1 [place] [address] 68401- 6504 Aug, [facility] [address] [id number] Jul, Pharyngitis, unspecified etiology J02.9 and Lymphadenopathy R59.1 [place] [address] 56584- 1988 Jul, ADD (attention deficit disorder) F90.0 [address] [address] [place] [address]- 4162 Jul, Allergic rhinitis due to pollen J30.1 [place] [id number] [place] [address] 58808- 0394 Jul, Dental examination Z01.20 [place] [id number] [place] [address] 75888- 3580 Jun, Cough productive of purulent sputum R05 [place] [id number] [place] [address] 12131- 3921 Jun, Allergic rhinitis due to pollen J30.1 [place] [address] 68195- 5188 Jun, [place] [address] 42792- 7589 Jun, Allergic rhinitis due to pollen J30.1 [place] [id number] [place] [address] 26386- 8488 Jun, Allergic rhinitis due to pollen J30.1 [place] [id number] [place] [address] 75134- 4024 May, Allergic rhinitis due to pollen J30.1 [place] [id number] [place] [address] 89619- 4332 May, Pneumonia due to Haemophilus influenzae, unspecified laterality, unspecified part of lung J14 [place] [id number] [place] [address] 04344- 6540 May, Allergic rhinitis due to pollen J30.1 [place] [address] [place] [address] 18761- 7622 May, Other adverse food reactions, not elsewhere classified, initial encounter T78.1XXA and Pneumonia due to Haemophilus influenzae, unspecified laterality, unspecified part of lung J14 [place] [address] [place] [address] 20588- 6375 May, Pneumonia due to Haemophilus influenzae, unspecified laterality, unspecified part of lung J14 [place] [id number] [place] [address] 23894- 9546 May, Multiple food allergies Z91.018 ; Uncomplicated severe persistent asthma J45.50 ; Cough productive of purulent sputum R05 and Uses central nervous system stimulants F15.90 [place] [address] 59013- 4545 Apr, Allergic rhinitis due to pollen J30.1 [place] [id number] [place] [address] 57963- 0787 Apr, Allergic rhinitis due to pollen J30.1 [place] [address] 34869- 2413 Apr, Allergic rhinitis due to pollen J30.1 [place] [id number] [place] [address] 91898- 8681 Apr, ADD (attention deficit disorder) F90.0 [place] [address] 66407- 5280 28 Mar, 2017 Allergic rhinitis due to pollen J30.1 [place] [id number] [place] [address] 32525- 4055 21 Mar, 2017 Encounter for immunization Z23 [place] [address] 85838- 1649 19 Mar, 2017 [place] [address] 33014- 9449 14 Mar, 2017 Allergic rhinitis due to pollen J30.1 [place] [id number] [place] [address] 37746- 5762 07 Mar, 2017 Allergic rhinitis due to pollen J30.1 [place] [id number] [place] [address] 09010- 6952 16 Jan, 2017 Allergic rhinitis due to pollen J30.1 [place] [id number] [place] [address] 00676- 3176 Jan, Allergic rhinitis due to pollen J30.1 [place] [address] [place] [address] 56446- 5546 Dec, Uncomplicated severe persistent asthma J45.50 [place] [id number] [place] [address] 12149- 2351 Dec, Allergic rhinitis due to pollen J30.1 [place] [id number] [place] [address] 80990- 9589 Dec, Allergic rhinitis due to pollen J30.1 [place] [id number] [place] [address] 72375- 5349 Dec, Allergic rhinitis due to pollen J30.1 [place] [id number] [place] [address] 77883- 9268 Dec, ADD (attention deficit disorder) F90.0 [place] [id number] [place] [address] 84263- 5177 Dec, Allergic rhinitis due to pollen J30.1 [place] [id number] [place] [address] 90717- 9279 Dec, Visit for TB skin test Z11.1 and Screening for tuberculosis Z11.1 [place] [id number] [place] [address] 34699- 5247 Dec, Uncomplicated severe persistent asthma J45.50 ; Palpitations R00.2 ; Pericardial effusion (noninflammatory) I31.3 and Chest discomfort R07.89 [place] [id number] [place] [address] 47607- 4001 Dec, Allergic rhinitis due to pollen J30.1 [place] [id number] [place] [address] 32104- 1825 Dec, Chronic cough R05 [place] [id number] [place] [address] 20395- 9456 Dec, [place] [address] [place] [address]- 1585 15 Dec, 2016 Allergic rhinitis due to pollen J30.1 [place] [id number] [place] [address] 57614- 8067 Dec, Allergic rhinitis due to pollen J30.1 [place] [id number] [place] [address] 71973- 8179 Dec, Chronic cough R05 [place] [id number] [place] [address] 55390- 8056 October, Allergic rhinitis due to pollen J30.1 [place] [id number] [place] [address] 97334- 7816 October, Allergic rhinitis due to pollen J30.1 [place] [id number] [place] [address] 49244- 9768 October, [place] [address] 64126- 4066 October, Asthma exacerbation J45.901 [place] [id number] [place] [address] 10551- 5133 October, Asthma exacerbation J45.901 and Current chronic use of inhaled steroid Z79.51 [place] [id number] [place] [address] 15385- 2836 October, Uncomplicated severe persistent asthma J45.50 [place] [id number] [place] [address] 12584- 5448 October, Allergic rhinitis due to pollen J30.1 [place] [id number] [place] [address] 27002- 3099 Oct, [place] [address] 40639- 6210 Oct, Asthma exacerbation J45.901 and Sputum production R05 [place] [id number] [place] [address] 77554- 1158 Oct, Asthma exacerbation J45.901 [place] [id number] [place] [address] 94087- 2563 Oct, ADD (attention deficit disorder) F90.0 [place] [address] 93040- 2659 Oct, ADD (attention deficit disorder) F90.0 [place] [address] 13038- 4277 Aug, Allergic rhinitis due to pollen J30.1 [place] [address] 83867- 5819 Aug, Atypical pneumonia J18.9 [place] [address] 52660- 1787 Aug, Allergic rhinitis due to pollen J30.1 [place] [address] 24685- 7108 Aug, Acquired hypothyroidism E03.9 [place] [address] 10767- 2980 Aug, Multiple food allergies Z91.018 ; Elevated blood pressure reading R03.0 and Anaphylaxis, subsequent encounter T78.2XXD [place] [address] [id number] Aug, [place] [address] 94450- 5258 Aug, Anaphylaxis, initial encounter T78.2XXA [place] [address] 37249- 3753 Aug, Allergic rhinitis due to pollen J30.1 [place] [address] 41330- 9404 Aug, Dental examination Z01.20 [place] [address] 79726- 9780 09 Aug, 2016 Allergic rhinitis due to pollen J30.1 [facility] [address] [place] [address] 95683- 6071 06 Aug, 2016 Acquired hypothyroidism E03.9 and Pure hypercholesterolemia E78.00 [facility] [id number] [place] [address] 83565- 4394 Aug, ADD (attention deficit disorder) F90.0 ; Acquired hypothyroidism E03.9 and Pure hypercholesterolemia E78.00 [facility] [id number] [place] [address] 80855- 4248 Aug, Asthma exacerbation J45.901 [place] [address] 58239- 9019 Jul, Allergic rhinitis due to pollen J30.1 [place] [id number] [place] [address] 75101- 7258 Jul, Allergic rhinitis due to pollen J30.1 [place] [id number] [place] [address] 93734- 7518 Jul, [facility] [id number] [place] [address] 28052- 5946 Jul, Allergic rhinitis due to pollen J30.1 [place] [id number] [place] [address] 64451- 6050 Jul, Other fpc (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 and ADD ( attention deficit disorder) F90.0 [place] [id number] [place] [address] 54405- 3144 Jul, 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 and ADD ( attention deficit disorder) F90.0 [place] [id number] [place] [address] 44655- 1993 Jul, [place] [id number] [place] [address] 07968- 4593 Jun, Allergic rhinitis due to pollen J30.1 [place] [address] [place] [address]- 3524 Jun, Allergic rhinitis due to pollen J30.1 [place] [id number] [place] [address] 34522- 0887 Jun, [place] [id number] [place] [address] 16483- 9808 May, Allergic rhinitis due to pollen J30.1 [place] [id number] [place] [address] 67098- 6736 May, Allergic rhinitis due to pollen J30.1 [place] [id number] [place] [address] 97892- 9398 Apr, Allergic rhinitis due to pollen J30.1 [place] [id number] [place] [address] 79478- 4599 Apr, Allergic rhinitis due to pollen J30.1 [place] [id number] [place] [address] 32956- 1661 Apr, Encounter for immunization Z23 [place] [id number] [place] [address] 69510- 0521 Apr, [place] [id number] [place] [address] 08044- 8112 Mar, Allergic rhinitis due to pollen J30.1 [place] [id number] [place] [address] 36821- 6853 Mar, Multiple allergies Z88.9 [place] [id number] [place] [address] 26684- 9847 Mar, Candidal vaginitis B37.3 [place] [id number] [place] [address] 28259- 4814 08 Mar, 2016 Allergic rhinitis due to pollen J30.1 [place] [address] [place] [address] 24569- 6961 Jan, Asthma exacerbation J45.901 ; Fatigue, unspecified type R53.83 and Community acquired pneumonia J18.9 [facility] [address] [id number] Jan, Encounter for dental examination Z01.20 [facility] [address] [place] [address] 54395- 7170 Jan, Allergic rhinitis due to pollen J30.1 [facility] [address] [place] [address] 26321- 6595 Dec, Allergic rhinitis due to pollen J30.1 [facility] [address] [place] [address] 38096- 2653 Dec, [facility] [id number] [place] [address] 30147- 1738 Dec, Allergic rhinitis due to pollen J30.1 [facility] [id number] [place] [address] 37280- 8283 Dec, [facility] [address] [place] [address] 82938- 7053 Dec, [facility] [address] [place] [address] 08008- 8939 Dec, [facility] [address] [place] [address] 19242- 4486 Dec, Allergic rhinitis due to pollen J30.1 [facility] [address] [address]- 5834 Dec, [facility] [address] [place] [address] 66332- 9749 Dec, [facility] [address] [place] [address] 53497- 3683 Dec, Allergic rhinitis due to pollen J30.1 [facility] [address] [place] [address] 72063- 7014 October, Allergic rhinitis due to pollen J30.1 [facility] [id number] [place] [address] 61946- 2800 October, Allergic rhinitis due to pollen J30.1 [facility] [id number] [place] [address] 79164- 4143 October, [facility] [id number] [place] [address] 39474- 1058 October, [place] [id number] [place] [address] 81605- 0176 October, ADD (attention deficit disorder) F90.0 ; Major depressive disorder, recurrent episode, mild F33.0 and Uncomplicated severe persistent asthma J45.50 [place] [id number] [place] [address] 74051- 6240 Oct, Allergic rhinitis due to pollen J30.1 [place] [id number] [place] [address] 18418- 8829 Oct, ADD (attention deficit disorder) F90.0 [place] [id number] [place] [address] 14632- 0378 Oct, Allergic rhinitis due to pollen 477.0 [place] [id number] [place] [address] 48410- 8726 Aug, Allergic rhinitis due to pollen 477.0 [place] [id number] [place] [address] 27480- 6523 Aug, 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 [place] [id number] [place] [address] 41024- 2714 Aug, [place] [id number] [place] [address] 03070- 9256 Aug, Allergic rhinitis due to pollen 477.0 [place] [id number] [place] [address] 21408- 8162 Aug, Allergic rhinitis due to pollen 477.0 [place] [id number] [place] [address] 11905- 2411 Aug, Allergic rhinitis due to pollen 477.0 [facility] [id number] [place] [address] 38915- 2987 Aug, Exposure to influenza Z20.828 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 [place] [address] 02872- 0356 Jul, [place] [address] 59288- 1555 Jul, Allergic rhinitis due to pollen 477.0 [place] [address] 04773- 3747 Jul, [place] [id number] [place] [address] 61604- 1548 Jul, Allergic rhinitis due to pollen 477.0 [place] [id number] [place] [address] 76675- 7533 Jun, ADD (attention deficit disorder) F90.0 ; Acquired hypothyroidism E03.9 ; PCOS (polycystic ovarian syndrome) E28.2 ; Polyarthralgia M25.50 and On stimulant medication Z79.899 [place] [id number] [place] [address] 03084- 9579 Apr, Encounter for immunization Z23 [place] [address] 38951- 9117 16 Mar, 2015 Allergic rhinitis due to pollen 477.0 [facility] [address] [place] [address] 02852- 9668 14 Mar, 2015 Influenza vaccine administered V04.81 [facility] [address] [place] [address] 03651- 6718 Mar, [facility] [id number] [place] [address] 52078- 5323 Jan, Allergic rhinitis due to pollen 477.0 [facility] [address] [place] [address] 71574- 5757 Jan, Allergic rhinitis due to pollen 477.0 [facility] [id number] [place] [address] 08022- 2187 Jan, Allergic rhinitis due to pollen 477.0 [facility] [id number] [place] [address] [id number] Jan, Dental examination V72.2 [facility] [id number] [place] [address] 12042- 5687 Dec, Allergic rhinitis due to pollen 477.0 [facility] [address] [place] [address] 99770- 3886 October, [facility] [address] [address]- 4210 Oct, [facility] [id number] [place] [address] 19476- 8961 Oct, [facility] [address] [place] [address] 00414- 2543 Aug, [facility] [id number] [place] [address] 13092- 9004 Aug, [facility] [address], [place] [address]- 8344 05 Aug, 2014 [facility] [id number] [place] [address] 55838- 7440 Aug, [facility] [place] [facility] [address] [id number] [place] [address]- 8629 Aug, [facility] [place] [facility] [address] [id number] [place] [address]- 5016 Aug, [facility] [place] [facility] [address] [id number] [place] [address]- 7876 Aug, [facility] [place] [facility] [address] [id number] [place] [address]- 4007 Aug, [facility] [place] [facility] [address] [id number] [place] [address]- 5454 Jul, [facility] [place] [facility] [address] [id number] [place] [address]- 8014 Jul, [facility] [place] [facility] [address] [id number] [place] [address]- 7784 Jul, [facility] [place] [facility] [address] [id number] [place] [address] Jul, [facility] [place] [facility] [address] [id number] [place] [address] Jul, [facility] [place] [facility] [address] [id number] [place] [address] Jul, [facility] [place] [facility] [address] [id number] [place] [address] Jul, [facility] [place] [facility] [address] [id number] [place] [address] Jul, [facility] [place] [facility] [address] [id number] [place] [address] Jul, [facility] [place] [facility] [address] [id number] [place] [address] Jul, [facility] [place] [facility] [address] [id number] [place] [address] Jul, [facility] [place] [facility] [address] [id number] [place] [address] Jun, [facility] [place] [facility] [address] [id number] [place] [address] Jun, [facility] [place] [facility] [address] [id number] [place] [address] Jun, [facility] [place] [facility] [address] [id number] [place] [address] Jun, [facility] [place] [facility] [address] [id number] [place] [address] Jun, [facility] [place] [facility] [address] [id number] [place] [address] Jun, [facility] [place] [facility] [address] [id number] [place] [address] May, [facility] [place] [facility] [address] [id number] [place] [address] May, [facility] [place] [facility] [address] [id number] [place] [address] May, [facility] [place] [facility] [address] [id number] [place] [address] May, [facility] [place] [facility] [address] [id number] [place] [address] May, [facility] [place] [facility] [address] [id number] [place] [address] 1214 May, [facility] [place] [facility] [address] [id number] [place] [address] Apr, [facility] [place] [facility] [address] [id number] [place] [address] 1679 Apr, [facility] [place] [facility] [address] [id number] [place] [address] 07[address] Mar, [facility] [place] [facility] [address] [id number] [place] [address] 459[address] Mar, [facility] [place] [facility] [address] [id number] [place] [address] 2[address] Mar, [facility] [place] [facility] [address] [id number] [place] [address] 69[address] Mar, [facility] [place] [facility] [address] [id number] [place] [address] 3025 Mar, [facility] [place] [facility] [address] [id number] [place] [address] 8907 Mar, [facility] [place] [facility] [address] [id number] [place] [address] 8314 Jan, [facility] [place] [facility] [address] [id number] [place] [address] 3098 Jan, [facility] [place] [facility] [address] [id number] [place] [address] 9071 Jan, [facility] [place] [facility] [address] [id number] [place] [address] 62[address] Jan, [facility] [place] [facility] [address] [id number] [place] [address] 9245 Jan, [facility] [place] [facility] [address] [id number] [place] [address] 4465 Jan, [facility] [place] [facility] [address] [id number] [place] [address] 1264 Dec, [facility] [place] [facility] [address] [id number] [place] [address] 9716 Dec, [facility] [place] [facility] [address] [id number] [place] [address] Dec, [facility] [place] [facility] [address] [id number] [place] [address] 1774 Dec, [facility] [place] [facility] [address] [id number] [place] [address]- 1026 Dec, [facility] [place] [facility] [address] [id number] [place] [address] 8413 Dec, [facility] [place] [facility] [address] [id number] [place] [address]- 1673 Dec, [facility] [place] [facility] [address] [id number] [place] [address]- 0666 Dec, [facility] [place] [facility] [address] [id number] [place] [address]- 3383 Dec, [facility] [place] [facility] [address] [id number] [place] [address] 5434 Dec, [facility] [place] [facility] [address] [id number] [place] [address] 4326 Dec, [facility] [place] [facility] [address] [id number] [place] [address] 5560 Dec, [facility] [place] [facility] [address] [id number] [place] [address] 1046 Dec, [facility] [place] [facility] [address] [id number] [place] [address] 3529 Dec, [facility] [place] [facility] [address] [id number] [place] [address]- 3125 Dec, [facility] [place] [facility] [address] [id number] [place] [address]- 4677 Dec, [facility] [place] [facility] [address] [id number] [place] [address] 5564 October, [facility] [place] [facility] [address] [id number] [place] [address] 8502 October, [facility] [place] [facility] [address] [id number] [place] [address] 5666 October, [facility] [place] [facility] [address] [id number] [place] [address] 3513 October, [facility] [place] [facility] [address] [id number] [place] [address] 1840 October, [facility] [address] [id number] [place] [address] 5161 October, [facility] [place] [facility] [address] [id number] [place] [address] 1147 Oct, [facility] [place] [facility] [address] [id number] [place] [address] 2650 Oct, [facility] [place] [facility] [address] [id number] [place] [address] 6440 Oct, [facility] [place] [facility] [address] [id number] [place] [address] 4021 Oct, [facility] [place] [facility] [address] [id number] [place] [address]- 5295 Oct, [facility] [place] [facility] [address] [id number] [place] [address] 7103 Oct, [facility] [place] [facility] [address] [id number] [place] [address] 8759 Aug, [facility] [place] [facility] [address] [id number] [place] [address] 3310 Aug, [facility] [place] [facility] [address] [id number] [place] [address] 7480 Aug, [facility] [place] [facility] [address] [id number] [place] [address] 3603 Aug, [facility] [place] [facility] [address] [id number] [place] [address]- 9728 Jul, [facility] [place] [facility] [address] [id number] [place] [address] 0748 Jul, [facility] [place] [facility] [address] [id number] [place] [address] 8088 Jul, [facility] [place] [facility] [address] [id number] [place] [address] 9042 Jul, [facility] [place] [facility] [address] [id number] [place] [address] 3631 Jun, [facility] [address] [id number] [place] [address] 0457 Jun, [facility] [address] [id number] [place] [address] 6827 Jun, [facility] [address] [id number] [place] [address] Jun, [facility] [address] [id number] [place] [address]- 9238 Jun, [facility] [address] [id number] [place] [address] Jun, [facility] [address] [id number] [place] [address]- 4416 Jun, [facility] [address] [id number] [place] [address] 8784 Jun, [facility] [address] [id number] [place] [address] 6032 Jun, [facility] [address] [id number] [place] [address] 8299 Jun, [facility] [address] [id number] [place] [address] 2651 Jun, [facility] [address] [id number] [place] [address] 3918 May, [facility] [place] [facility] [address] [id number], [place] [address] May, [facility] [place] [facility] [address] [id number], [place] [address]- 4286 May, [facility] [place] [facility] [address] [id number], [place] [address] 6442 May, [facility] [place] [facility] [address] [id number], [place] [address]- 2446 May, [facility] [place] [facility] [address] [id number] [place] [address]- 3400 May, [facility] [place] [facility] [address] [id number] [place] [address]- 2332 May, [facility] [place] [facility] [address] [id number] [place] [address]- 8713 30 Apr, 2013 [facility] [place] [facility] [address] [id number] [place] [address]- 7211 30 Apr, 2013 [facility] [place] [facility] [address] [id number] [place] [address]- 5245 18 Apr, 2013 [facility] [place] [facility] [address] [id number] [place] [address]- 9247 Apr, [facility] [place] [facility] [address] [id number] [place] [address]- 2669 27 Mar, 2013 [facility] [place] [facility] [address] [id number] [place] [address]- 9211 26 Mar, 2013 [facility] [place] [facility] [address] [id number] [place] [address] 2542 26 Mar, 2013 [facility] [place] [facility] [address] [id number] [place] [address]- 2542 23 Mar, 2013 [facility] [place] [facility] [address] [id number] [place] [address] 2541 04 Mar, 2013 [facility] [place] [facility] [address] [id number] [place] [address]- 2547 03 Mar, 2013 [facility] [place] [facility] [address] [id number] [place] [address] 2544 30 Jan, 2013 [facility] [place] [facility] [address] [id number] [place] [address] 2545 28 Jan, 2013 [facility] [place] [facility] [address] [id number] [place] [address] 2542 20 Jan, 2013 [facility] [place] [facility] [address] [id number] [place] [address]- 9755 Jan, [facility] [address] [id number] [place] [address]- 9997 Jan, [facility] [place] [facility] [address] [id number] [place] [address]- 7193 Dec, [facility] [place] [facility] [address] [id number] [place] [address]- 0881 Dec, [facility] [place] [facility] [address] [id number] [place] [address]- 6076 Dec, [facility] [place] [facility] [address] [id number] [place] [address]- 6802 Dec, [facility] [place] [facility] [address] [id number] [place] [address]- 7384 Dec, [facility] [place] [facility] [address] [id number] [place] [address]- 8363 Dec, [facility] [place] [facility] [address] [id number] [place] [address]- 0542 Dec, [facility] [place] [facility] [address] [id number] [place] [address]- 8752 Dec, [facility] [place] [facility] [address] [id number] [place] [address]- 0558 October, [facility] [place] [facility] [address] [id number] [place] [address]- 7837 October, [facility] [place] [facility] [address] [id number], [place] [address]- 1214 October, [facility] [place] [facility] [address] [id number] [place] [address]- 4487 24 Oct, 2012 [facility] [place] [facility] [address] [id number], [place] [address]- 3737 18 Oct, 2012 [facility] [place] [facility] [address] [id number] [place] [address]- 8361 Oct, [facility] [place] [facility] [address] [id number] [place] [address]- 0199 Oct, [facility] [place] [facility] [address] [id number] [place] [address]- 9667 Aug, [facility] [place] [facility] [address] [id number] [place] [address]- 4456 Aug, [facility] [place] [facility] [address] [id number] [place] [address]- 8424 Aug, [facility] [place] [facility] [address] [id number] [place] [address]- 9227 Jul, [facility] [place] [facility] [address] [id number] [place] [address] May, [facility] [place] [facility] [address] [id number] [place] [address]- 0834 May, [facility] [place] [facility] [address] [id number] [place] [address]- 3414 Apr, [facility] [place] [facility] [address] [id number] [place] [address]- 2907 Apr, [facility] [place] [facility] [address] [id number] [place] [address]- 8958 Apr, [facility] [place] [facility] [address] [facility] [id number] [place] [address]- 1393 Apr, [facility] [place] [facility] [address] [id number] [place] [address]- 8076 Apr, [facility] [place] [facility] [address] [id number] [place] [address]- 2934 Apr, [facility] [place] [facility] [address] [id number] [place] [address]- 5823 Apr, [facility] [place] [facility] [address] [id number] [place] [address]- 1153 Apr, [facility] [place] [facility] [address] [id number] [place] [address]- 3536 Apr, [facility] [place] [facility] [address] [id number] [place] [address]- 3476 Apr, [facility] [place] [facility] [address] [id number] [place] [address]- 3077 Apr, [facility] [place] [facility] [address] [id number] [place] [address]- 4642 Apr, [facility] [place] [facility] [address] [id number] [place] [address]- 7667 Mar, [facility] [place] [facility] [address] [id number] [place] [address]- 5375 Jan, [facility] [place] [facility] [address] [id number] [place] [address]- 8366 Dec, [facility] [place] [facility] [address] [id number] [place] [address]- 5462 October, [facility] [place] [facility] [address] [id number] [place] [address]- 4311 Oct, [facility] [place] [facility] [address] [id number] [place] [address]- 7161 Oct, [facility] [place] [facility] [address] [id number] [place] [address]- 8943 Oct, [facility] [place] [facility] [address] [facility] [id number] [place] [address]- 4139 Aug, [facility] [place] [facility] [address] [id number], [place] [address] 2545 Aug, [facility] [place] [facility] [address] [id number] [place] [address]- 1053 Aug, [facility] [place] [facility] [address] [id number] [place] [address]- 4126 Aug, [facility] [place] [facility] [address] [id number] [place] [address]- 8476 Aug, [facility] [place] [facility] [address] [id number], [place] [address]- 9806 Aug, [facility] [id number] [address] Jun, [facility] [id number] 12[address] Apr, [facility] [id number], [place] [address]- 0684 Jun, [facility] [id number], [place] [address]- 9666 Jun, [facility] [id number] [address] May, [facility] [id number], [place] [address]- 9289 May, [facility] [id number], [place] [address]- 6632 Apr, [facility] [id number], [place] [address]- 7683 Apr, IMMUNIZATIONS No Known Immunizations SOCIAL HISTORY Never Assessed REASON FOR VISIT Lab orders PLAN OF CARE VITAL SIGNS MEDICATIONS Unknown [...] History see above surgeries Hospitalization History Anaphylactic shock-[facility] 08/23/16
--- OUTSIDE RECORDS SUMMARY | 2018-07-18 07:32 | XMS REPORT ---
Author BALJEET Nolasco [facility] eClinicalWorks Address Unknown Phone Unavailable Care Team Providers Care Car Refinisher Name Role Phone BALJEET WILKINS CP Unavailable Allergies No Known Allergies Problems Problem Type Condition ICD-9 Code Onset Dates Condition Status Problem Nonspecific abnormal electrocardiogram (ECG) (EKG) 794.31 Active Problem PPV23 (PNEUMOVAX) DX V03.82 Active Problem MMR DX V06.4 Active Assessment Influenza vaccine administered V04.81 Active Problem Asthma, unspecified, with (acute) exacerbation 493.92 Active Problem Need for prophylactic vaccination with tetanus toxoid alone V03.7 Active Problem Palpitations 785.1 Active Problem Allergic rhinitis due to pollen 477.0 Active Problem Urinary frequency 788.41 Active Problem Other and unspecified hyperlipidemia 272.4 Active Problem Polycystic ovaries 256.4 Active Medications No Known Medications Procedures Procedure Coding System Code Date FLUARIX QUAD (3 & UP)-2014 CPT-4 47919 Mar 16, 2015 SINGLE IMMUNIZATION ADMIN CPT-4 67506 Mar 16, 2015 Results No Known Results Immunizations Vaccine Administration Date FLUARIX QUAD (3 & UP)-2014Mar 16, 2015 Summary Purpose eClinicalWorks Submission
--- OUTSIDE RECORDS SUMMARY | 2018-07-18 07:33 | XMS REPORT ---
Author Author HENRIK ENNIS [facility] Address [address] [place], [place] [id number] Care Team Providers Care Union Carpenter Name Role Phone HENRIK ENNIS Unavailable PROBLEMS Type Condition ICD9-CM Code [id number] Code Onset Dates Condition Status SNOMED Code Problem Migraine with aura and without status migrainosus, not intractable G43.109 Active 6537295 Problem PCOS (polycystic ovarian syndrome) E28.2 Active 05346706 Problem Uncomplicated severe persistent asthma J45.50 Active 595348751 Problem Severe persistent asthma with exacerbation J45.51 Active 357797975 Problem Other elevated white blood cell (WBC) count D72.828 Active 194861639 Problem Multiple food allergies Z91.018 Active 188231832 Problem Pure hypercholesterolemia E78.00 Active 630004800 Problem Current chronic use of inhaled steroid Z79.51 Active 469901490 Problem Asthma exacerbation J45.901 Active 437569319 Problem ADD (attention deficit disorder) F90.0 Active 036341266 Problem Allergic rhinitis due to pollen J30.1 Active 37618026 Problem Vitamin D deficiency E55.9 Active 45180257 Problem Major depressive disorder, recurrent episode, mild F33.0 Active 716351228 Problem Acquired hypothyroidism E03.9 Active 060519692 Problem Gastroesophageal reflux disease without esophagitis K21.9 Active 182724637 ALLERGIES No Information ENCOUNTERS Encounter Location Date Diagnosis [facility] [id number] [address] Aug, Haemophilus influenzae infection A49.2 [facility] [address] [address] Aug, Cough productive of purulent sputum R05 [facility] [address] [address] Aug, [facility] [address] [address] 08 Aug, 2017 Pulmonary congestion R09.89 [place] [address] [address]- [address] Aug, Severe persistent asthma with exacerbation J45.51 ; Hiatal hernia K44.9 and Gastroesophageal reflux disease without esophagitis K21.9 [facility] [facility] [address] 7[address]78- 5478 Aug, Other elevated white blood cell (WBC) count D72.828 [facility] [address] [id number]- 8690 Aug, Uncomplicated severe persistent asthma J45.50 [facility] [place] [address] 669358- 4983 Aug, Pure hypercholesterolemia E78.00 ; Uncomplicated severe persistent asthma J45.50 and Acquired hypothyroidism E03.9 [facility] [facility] [address] 15144- 5761 Aug, Acquired hypothyroidism E03.9 ; Pure hypercholesterolemia E78.00 and Uncomplicated severe persistent asthma J45.50 [facility] [address] 38562- 9166 15 Aug, 2017 Allergic rhinitis due to pollen J30.1 [facility] [id number] [place] [address] 75424- 5779 Aug, Allergic rhinitis due to pollen J30.1 [facility] [facility] [address] 00390- 5533 Aug, [facility] [address] [id number] Jul, Pharyngitis, unspecified etiology J02.9 and Lymphadenopathy R59.1 [place] [address] 33364- 6018 Jul, ADD (attention deficit disorder) F90.0 [place] [id number] [place] [address] 23578- 9634 Jul, Allergic rhinitis due to pollen J30.1 [facility] [id number] [place] [address] 59189- 4393 Jul, Dental examination Z01.20 [facility] [id number] [place] [address] 03946- 9225 Jun, Cough productive of purulent sputum R05 [facility] [id number] [place] [address] 02673- 8165 Jun, Allergic rhinitis due to pollen J30.1 [facility] [address] 11491- 0688 Jun, [facility] [address] 97669- 6002 Jun, Allergic rhinitis due to pollen J30.1 [facility] [id number] [place] [address] 30971- 6638 Jun, Allergic rhinitis due to pollen J30.1 [facility] [id number] [place] [address] 81883- 3916 May, Allergic rhinitis due to pollen J30.1 [facility] [id number] [place] [address] 42288- 0351 May, Pneumonia due to Haemophilus influenzae, unspecified laterality, unspecified part of lung J14 [facility] [id number] [place] [address] 24994- 0268 May, Allergic rhinitis due to pollen J30.1 [facility] [place] [id number] [place] [address] 17851- 0529 May, Other adverse food reactions, not elsewhere classified, initial encounter T78.1XXA and Pneumonia due to Haemophilus influenzae, unspecified laterality, unspecified part of lung J14 [facility] [address] [place] [address] 67266- 2097 May, Pneumonia due to Haemophilus influenzae, unspecified laterality, unspecified part of lung J14 [facility] [id number] [place] [address] 66468- 3395 May, Multiple food allergies Z91.018 ; Uncomplicated severe persistent asthma J45.50 ; Cough productive of purulent sputum R05 and Uses central nervous system stimulants F15.90 [place] [address] 63020- 2700 Apr, Allergic rhinitis due to pollen J30.1 [facility] [id number] [place] [address] 42566- 0928 Apr, Allergic rhinitis due to pollen J30.1 [facility] [facility] [address] 24814- 2142 Apr, Allergic rhinitis due to pollen J30.1 [facility] [address] 36394- 5468 Apr, ADD (attention deficit disorder) F90.0 [facility] [address] 96880- 8051 28 Mar, 2017 Allergic rhinitis due to pollen J30.1 [facility] [facility] [address] 34579- 0301 21 Mar, 2017 Encounter for immunization Z23 [facility] [id number] [place] [address] 09711- 9865 19 Mar, 2017 [facility] [address] 50511- 4107 14 Mar, 2017 Allergic rhinitis due to pollen J30.1 [facility] [id number] [place] [address] 19792- 8838 07 Mar, 2017 Allergic rhinitis due to pollen J30.1 [facility] [place] [id number] [place] [address] 85015- 7619 16 Jan, 2017 Allergic rhinitis due to pollen J30.1 [facility] [facility] [address] 13284- 8676 Jan, Allergic rhinitis due to pollen J30.1 [facility] [address] [place] [address] 25625- 7893 Dec, Uncomplicated severe persistent asthma J45.50 [facility] [place] [id number] [place] [address] 22174- 8838 Dec, Allergic rhinitis due to pollen J30.1 [facility] [place] [id number] [place] [address] 70250- 0558 Dec, Allergic rhinitis due to pollen J30.1 [facility] [place] [id number] [place] [address] 01069- 9384 Dec, Allergic rhinitis due to pollen J30.1 [facility] [place] [id number] [place] [address] 47800- 0290 Dec, ADD (attention deficit disorder) F90.0 [facility] [id number] [place] [address] 87124- 8683 Dec, Allergic rhinitis due to pollen J30.1 [facility] [place] [id number] [place] [address] 70570- 7834 Dec, Visit for TB skin test Z11.1 and Screening for tuberculosis Z11.1 [facility] [id number] [place] [address] 80627- 8831 Dec, Uncomplicated severe persistent asthma J45.50 ; Palpitations R00.2 ; Pericardial effusion (noninflammatory) I31.3 and Chest discomfort R07.89 [facility] [address] [place] [address] 16047- 4731 Dec, Allergic rhinitis due to pollen J30.1 [facility] [id number] [place] [address] 70974- 7576 Dec, Chronic cough R05 [place] [id number] [place] [address] 92683- 2928 Dec, [facility] [id number] [place] [address] 07054- 4631 15 Dec, 2016 Allergic rhinitis due to pollen J30.1 [facility] [id number] [place] [address] 12979- 2844 Dec, Allergic rhinitis due to pollen J30.1 [facility] [place] [id number] [place] [address] 53549- 2580 Dec, Chronic cough R05 [facility] [place] [id number] [place] [address] 14376- 4602 October, Allergic rhinitis due to pollen J30.1 [facility] [id number] [place] [address] 67621- 6811 October, Allergic rhinitis due to pollen J30.1 [facility] [place] [id number] [place] [address] 12413- 7348 October, [facility] [address] 91232- 3808 October, Asthma exacerbation J45.901 [place] [id number] [place] [address] 76762- 3551 October, Asthma exacerbation J45.901 and Current chronic use of inhaled steroid Z79.51 [facility] [place] [id number] [place] [address] 21026- 5256 October, Uncomplicated severe persistent asthma J45.50 [facility] [place] [id number] [place] [address] 13667- 8990 October, Allergic rhinitis due to pollen J30.1 [facility] [place] [id number] [place] [address] 75097- 4732 Oct, [place] [address] 99664- 3623 Oct, Asthma exacerbation J45.901 and Sputum production R05 [place] [id number] [place] [address] 88196- 2231 Oct, Asthma exacerbation J45.901 [place] [id number] [place] [address] 58937- 1351 Oct, ADD (attention deficit disorder) F90.0 [facility] [id number] [place] [address] 24325- 5971 Oct, ADD (attention deficit disorder) F90.0 [place] [address] 06345- 8326 Aug, Allergic rhinitis due to pollen J30.1 [place] [id number] [place] [address] 10561- 3073 Aug, Atypical pneumonia J18.9 [place] [address] 80794- 3058 Aug, Allergic rhinitis due to pollen J30.1 [place] [address] 10149- 0930 Aug, Acquired hypothyroidism E03.9 [place] [address] 41578- 5264 Aug, Multiple food allergies Z91.018 ; Elevated blood pressure reading R03.0 and Anaphylaxis, subsequent encounter T78.2XXD [place] [id number] [place] [address] [id number] Aug, [facility] [address] 85480- 8127 Aug, Anaphylaxis, initial encounter T78.2XXA [place] [address] 82481- 7125 Aug, Allergic rhinitis due to pollen J30.1 [place] [address] 17786- 9002 Aug, Dental examination Z01.20 [place] [address] 71691- 9990 Aug, Allergic rhinitis due to pollen J30.1 [facility] [address] [place] [address] 46132- 3354 06 Aug, 2016 Acquired hypothyroidism E03.9 and Pure hypercholesterolemia E78.00 [facility] [id number] [place] [address] 63325- 1155 Aug, ADD (attention deficit disorder) F90.0 ; Acquired hypothyroidism E03.9 and Pure hypercholesterolemia E78.00 [facility] [id number] [place] [address] 94942- 9747 Aug, Asthma exacerbation J45.901 [place] [address] 68172- 2733 Jul, Allergic rhinitis due to pollen J30.1 [place] [address] 25284- 0961 Jul, Allergic rhinitis due to pollen J30.1 [facility] [id number] [place] [address] 08659- 5887 Jul, [facility] [id number] [place] [address] 07956- 3740 Jul, Allergic rhinitis due to pollen J30.1 [facility] [id number] [place] [address] 69701- 8389 Jul, Other remote computer terminal operator (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 and ADD ( attention deficit disorder) F90.0 [facility] [id number] [place] [address] 27948- 3864 Jul, Other alf (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 and ADD ( attention deficit disorder) F90.0 [facility] [id number] [place] [address] 41381- 8232 Jul, [facility] [id number] [place] [address] 50590- 8190 Jun, Allergic rhinitis due to pollen J30.1 [facility] [address] [place] [address]- 1594 Jun, Allergic rhinitis due to pollen J30.1 [facility] [id number] [place] [address] 74127- 3200 Jun, [facility] [id number] [place] [address] 95328- 9497 May, Allergic rhinitis due to pollen J30.1 [place] [address] 79531- 6035 May, Allergic rhinitis due to pollen J30.1 [place] [id number] [place] [address] 23968- 0197 Apr, Allergic rhinitis due to pollen J30.1 [place] [id number] [place] [address] 69383- 7465 Apr, Allergic rhinitis due to pollen J30.1 [place] [id number] [place] [address] 57486- 6215 Apr, Encounter for immunization Z23 [place] [id number] [place] [address] 94304- 3443 Apr, [place] [id number] [place] [address] 74200- 0178 Mar, Allergic rhinitis due to pollen J30.1 [place] [id number] [place] [address] 75054- 4716 Mar, Multiple allergies Z88.9 [place] [id number] [place] [address] 59743- 5563 Mar, Candidal vaginitis B37.3 [place] [id number] [place] [address] 14753- 5851 08 Mar, 2016 Allergic rhinitis due to pollen J30.1 [place] [id number] [place] [address] 00626- 8466 Jan, Asthma exacerbation J45.901 ; Fatigue, unspecified type R53.83 and Community acquired pneumonia J18.9 [facility] [address] [id number] Jan, Encounter for dental examination Z01.20 [facility] [address] [place] [address] 64839- 5700 Jan, Allergic rhinitis due to pollen J30.1 [facility] [address], [place] [address]- 2582 Dec, Allergic rhinitis due to pollen J30.1 [facility] [address], [place] [address]- 8580 Dec, [facility] [id number] [place] [address] 59883- 7987 Dec, Allergic rhinitis due to pollen J30.1 [facility] [address] [place] [address] 14536- 7591 Dec, [facility] [address] [place] [address] 49599- 3554 Dec, [facility] [address] [place] [address] 11849- 1053 Dec, [facility] [address] [place] [address] 86076- 4767 Dec, Allergic rhinitis due to pollen J30.1 [facility] [address], [place] [address]- 3664 Dec, [facility] [address], [place] [address]- 4665 Dec, [facility] [address] [place] [address] 49537- 8999 Dec, Allergic rhinitis due to pollen J30.1 [facility] [address], [place] [address]- 6640 October, Allergic rhinitis due to pollen J30.1 [facility] [id number], [place] [address]- 9983 October, Allergic rhinitis due to pollen J30.1 [facility] [address] [place] [address] 60565- 0120 October, [facility] [id number] [place] [address] 27782- 9685 October, [facility] [id number] [place] [address] 92777- 8565 October, ADD (attention deficit disorder) F90.0 ; Major depressive disorder, recurrent episode, mild F33.0 and Uncomplicated severe persistent asthma J45.50 [facility] [id number] [place] [address] 17020- 6631 Oct, Allergic rhinitis due to pollen J30.1 [facility] [id number] [place] [address] 62747- 1317 Oct, ADD (attention deficit disorder) F90.0 [facility] [id number] [place] [address] 47570- 1894 Oct, Allergic rhinitis due to pollen 477.0 [place] [id number] [place] [address] 14661- 0010 Aug, Allergic rhinitis due to pollen 477.0 [place] [id number] [place] [address] 52671- 1734 Aug, 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 [facility] [id number] [place] [address] 36683- 9413 Aug, [facility] [id number] [place] [address] 73432- 6653 Aug, Allergic rhinitis due to pollen 477.0 [facility] [address] [place] [address] 60613- 3739 Aug, Allergic rhinitis due to pollen 477.0 [place] [id number] [place] [address] 03345- 4809 Aug, Allergic rhinitis due to pollen 477.0 [facility] [id number] [place] [address] 15361- 8139 Aug, Exposure to influenza Z20.828 [facility] [id number] [place] [address] [id number] 19 Aug, 2015 Encounter for dental examination and cleaning without abnormal findings Z01.20 [place] [address] 30033- 7952 18 Aug, 2015 Allergic rhinitis due to pollen J30.1 [place] [address] 53739- 7400 Aug, [place] [address] 94852- 7240 Aug, 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 [place] [address] 70449- 3814 Jul, [place] [address] 53299- 7838 Jul, Allergic rhinitis due to pollen 477.0 [place] [id number] [place] [address] 15805- 9218 Jul, [place] [id number] [place] [address] 77412- 2423 Jul, Allergic rhinitis due to pollen 477.0 [place] [id number] [place] [address] 22609- 7929 Jun, ADD (attention deficit disorder) F90.0 ; Acquired hypothyroidism E03.9 ; PCOS (polycystic ovarian syndrome) E28.2 ; Polyarthralgia M25.50 and On stimulant medication Z79.899 [place] [id number] [place] [address] 70411- 3914 16 Apr, 2015 Encounter for immunization Z23 [place] [address] 83928- 8941 16 Mar, 2015 Allergic rhinitis due to pollen 477.0 [facility] [address] [place] [address] 97294- 8909 14 Mar, 2015 Influenza vaccine administered V04.81 [facility] [address] [place] [address] 16048- 9424 Mar, [facility] [id number] [place] [address] 36547- 2863 Jan, Allergic rhinitis due to pollen 477.0 [facility] [address] [place] [address] 22952- 7332 Jan, Allergic rhinitis due to pollen 477.0 [facility] [id number] [place] [address] 98190- 3917 Jan, Allergic rhinitis due to pollen 477.0 [facility] [id number] [place] [address] [id number] Jan, Dental examination V72.2 [facility] [id number] [place] [address] 24695- 6002 Dec, Allergic rhinitis due to pollen 477.0 [facility] [address] [place] [address] 64189- 7120 October, [facility] [address] [address]- 1487 Oct, [facility] [id number] [place] [address] 34114- 6373 Oct, [facility] [id number] [place] [address] 02949- 5488 Aug, [facility] [id number] [place] [address] 84911- 9652 Aug, [facility] [address] [address]- 9074 Aug, [facility] [id number] [place] [address] 96993- 6546 Aug, [facility] [place] [facility] [address] [id number] [place] [address]- 8929 Aug, [facility] [place] [facility] [address] [id number] [place] [address]- 2516 Aug, [facility] [place] [facility] [address] [id number] [place] [address]- 7436 Aug, [facility] [place] [facility] [address] [id number] [place] [address]- 7498 Aug, [facility] [place] [facility] [address] [id number] [place] [address]- 2534 Jul, [facility] [place] [facility] [address] [id number] [place] [address]- 3244 Jul, [facility] [place] [facility] [address] [id number] [place] [address]- 0117 Jul, [facility] [place] [facility] [address] [id number] [place] [address]- 2647 Jul, [facility] [place] [facility] [address] [id number] [place] [address]- 5582 Jul, [facility] [place] [facility] [address] [facility] [id number] [place] [address]- 1056 Jul, [facility] [place] [facility] [address] [id number] [place] [address]- 8222 Jul, [facility] [place] [facility] [address] [id number] [place] [address]- 7283 Jul, [facility] [place] [facility] [address] [id number] [place] [address] Jul, [facility] [place] [facility] [address] [id number] [place] [address] Jul, [facility] [place] [facility] [address] [id number] [place] [address] Jul, [facility] [place] [facility] [address] [id number] [place] [address] Jun, [facility] [place] [facility] [address] [id number] [place] [address] Jun, [facility] [place] [facility] [address] [id number] [place] [id number] Jun, [facility] [place] [facility] [address] [id number] [place] [address] Jun, [facility] [place] [facility] [address] [id number] [place] [address] Jun, [facility] [place] [facility] [address] [id number] [place] [address] Jun, [facility] [place] [facility] [address] [id number] [place] [address] May, [facility] [place] [facility] [address] [id number] [place] [address] May, [facility] [place] [facility] [address] [id number] [place] [address] May, [facility] [place] [facility] [address] [id number] [place] [address] May, [facility] [place] [facility] [address] [id number] [place] [address] May, [facility] [place] [facility] [address] [id number] [place] [address] May, [facility] [place] [facility] [address] [id number] [place] [address] Apr, [facility] [place] [facility] [address] [id number] [place] [address] Apr, [facility] [place] [facility] [address] [id number] [place] [address] [address] Mar, [facility] [place] [facility] [address] [id number] [place] [address] Mar, [facility] [place] [facility] [address] [id number] [place] [address] Mar, [facility] [place] [facility] [address] [id number] [place] [address] Mar, [facility] [place] [facility] [address] [id number] [place] [address] Mar, [facility] [place] [facility] [address] [id number] [place] [address] Mar, [facility] [place] [facility] [address] [id number] [place] [address] Jan, [facility] [place] [facility] [address] [id number] [place] [address] Jan, [facility] [place] [facility] [address] [id number] [place] [address] Jan, [facility] [place] [facility] [address] [id number] [place] [address] Jan, [facility] [place] [facility] [address] [id number] [place] [address] Jan, [facility] [place] [facility] [address] [id number] [place] [address] Jan, [facility] [place] [facility] [address] [id number] [place] [address] Dec, [facility] [place] [facility] [address] [id number] [place] [address] Dec, [facility] [place] [facility] [address] [id number] [place] [address] Dec, [facility] [place] [facility] [address] [id number] [place] [address] Dec, [facility] [place] [facility] [address] [id number] [place] [address]35 Dec, [facility] [place] [facility] [address] [id number] [place] [address] 9282 Dec, [facility] [place] [facility] [address] [id number] [place] [address] 9849 Dec, [facility] [place] [facility] [address] [id number] [place] [address]647 Dec, [facility] [place] [facility] [address] [id number] [place] [address] 4867 Dec, [facility] [place] [facility] [address] [id number] [place] [address] 6[address] Dec, [facility] [place] [facility] [address] [id number] [place] [address] 1871 Dec, [facility] [place] [facility] [address] [id number] [place] [address]887 Dec, [facility] [place] [facility] [address] [id number] [place] [address] 1061 Dec, [facility] [place] [facility] [address] [id number] [place] [address] 9480 Dec, [facility] [place] [facility] [address] [id number] [place] [address] 37[address] Dec, [facility] [place] [facility] [address] [id number] [place] [address] 6814 Dec, [facility] [place] [facility] [address] [id number] [place] [address] 2271 October, [facility] [place] [facility] [address] [id number] [place] [address]- 4784 October, [facility] [place] [facility] [address] [id number] [place] [address] 4726 October, [facility] [place] [facility] [address] [id number] [place] [address]- 0572 October, [facility] [place] [facility] [address] [id number] [place] [address] 0898 October, [facility] [address] [id number] [place] [address] 62[address] October, [facility] [place] [facility] [address] [id number] [place] [address]- 2190 Oct, [facility] [place] [facility] [address] [id number] [place] [address] 8021 Oct, [facility] [place] [facility] [address] [id number] [place] [address] 3996 Oct, [facility] [place] [facility] [address] [id number] [place] [address] 1679 Oct, [facility] [place] [facility] [address] [id number] [place] [address] 4240 Oct, [facility] [place] [facility] [address] [id number] [place] [address] 2953 Oct, [facility] [place] [facility] [address] [id number] [place] [address] 3059 Aug, [facility] [place] [facility] [address] [id number] [place] [address] 42[address] Aug, [facility] [place] [facility] [address] [id number] [place] [address] 3275 Aug, [facility] [place] [facility] [address] [id number] [place] [address] 6740 Aug, [facility] [place] [facility] [address] [id number] [place] [address] 9511 Jul, [facility] [place] [facility] [address] [id number] [place] [address] 43[address] Jul, [facility] [place] [facility] [address] [id number] [place] [address] 9081 Jul, [facility] [place] [facility] [address] [id number] [place] [address] 2177 Jul, [facility] [place] [facility] [address] [id number] [place] [address]- 59[address] 31 Jun, 2013 [facility] [address] [id number] [place] [address]- 8038 31 Jun, 2013 [facility] [place] [facility] [address] [id number] [place] [address] Jun, [facility] [address] [id number] [place] [address] 9242 Jun, [facility] [place] [facility] [address] [id number] [place] [address]- 5429 Jun, [facility] [address] [id number] [place] [address]- 4264 Jun, [facility] [place] [facility] [address] [id number] [place] [address]- 2099 Jun, [facility] [address] [id number] [place] [address]- 4727 Jun, [facility] [place] [facility] [address] [id number] [place] [address]- 2784 Jun, [facility] [place] [facility] [address] [id number] [place] [address]- 9955 04 Jun, 2013 [facility] [place] [facility] [address] [facility] [id number] [place] [address]- 9007 04 Jun, 2013 [facility] [place] [facility] [address] [id number] [place] [address]- 7[address] 19 May, 2013 [facility] [place] [facility] [address] [id number], [place] [address] May, [facility] [place] [facility] [address] [id number] [place] [address]- 7286 May, [facility] [place] [facility] [address] [id number] [place] [address]- 7404 May, [facility] [place] [facility] [address] [facility] [id number] [place] [address]- 9242 May, [facility] [place] [facility] [address] [id number] [place] [address]- 7291 May, [facility] [place] [facility] [address] [id number] [place] [address]- 6067 May, [facility] [place] [facility] [address] [id number] [place] [address]- 0855 Apr, [facility] [place] [facility] [address] [id number] [place] [address]- 1155 Apr, [facility] [place] [facility] [address] [id number] [place] [address] 3900 Apr, [facility] [place] [facility] [address] [id number] [place] [address]- 4147 Apr, [facility] [place] [facility] [address] [id number] [place] [address]- 6094 Mar, [facility] [place] [facility] [address] [id number] [place] [address]- 6717 Mar, [facility] [place] [facility] [address] [id number] [place] [address]- 9700 Mar, [facility] [place] [facility] [address] [id number] [place] [address]- 4155 23 Mar, 2013 [facility] [place] [facility] [address] [id number] [place] [address]- 4134 Mar, [facility] [place] [facility] [address] [id number] [place] [address]- 2545 Mar, [facility] [place] [facility] [address] [id number] [place] [address]- 2408 Jan, [facility] [place] [facility] [address] [id number] [place] [address]- 6464 Jan, [facility] [place] [facility] [address] [id number] [place] [address]- 9497 Jan, [facility] [place] [facility] [address] [id number] [place] [address]- 5283 Jan, [facility] [place] [facility] [address] [id number] [place] [address]- 9742 Jan, [facility] [place] [facility] [address] [id number] [place] [address]- 5237 Dec, [facility] [place] [facility] [address] [id number] [place] [address]- 7429 Dec, [facility] [place] [facility] [address] [id number] [place] [address]- 3828 Dec, [facility] [place] [facility] [address] [id number] [place] [address]- 4655 Dec, [facility] [place] [facility] [address] [id number] [place] [address]- 6149 Dec, [facility] [place] [facility] [address] [id number] [place] [address]- 3723 Dec, [facility] [place] [facility] [address] [id number] [place] [address]- 1722 Dec, [facility] [place] [facility] [address] [id number] [place] [address]- 7641 Dec, [facility] [place] [facility] [address] [id number] [place] [address]- 7660 October, [facility] [place] [facility] [address] [id number] [place] [address]- 8406 October, [facility] [place] [facility] [address] [id number] [place] [address]- 7912 October, [facility] [place] [facility] [address] [id number] [place] [address]- 7397 24 Oct, 2012 [facility] [place] [facility] [address] [id number] [place] [address]- 6554 18 Oct, 2012 [facility] [place] [facility] [address] [id number] [place] [address]- 8991 Oct, [facility] [place] [facility] [address] [id number] [place] [address]- 2515 Oct, [facility] [address] [id number] [place] [address]- 1941 Aug, [facility] [place] [facility] [address] [id number] [place] [address]- 9796 Aug, [facility] [address] [id number] [place] [address]- 3857 Aug, [facility] [place] [facility] [address] [id number] [place] [address]- 1422 Jul, [facility] [place] [facility] [address] [id number] [place] [address]- 7455 May, [facility] [place] [facility] [address] [id number] [place] [address]- 6408 May, [facility] [address] [id number] [place] [address]- 1851 Apr, [facility] [address] [id number] [place] [address]- 1154 Apr, [facility] [place] [facility] [address] [id number] [place] [address]- 7298 Apr, [facility] [address] [facility] [id number] [place] [address]- 2676 Apr, [facility] [place] [facility] [address] [id number] [place] [address]- 1170 Apr, [facility] [place] [facility] [address] [id number] [place] [address]- 2422 Apr, [facility] [place] [facility] [address] [id number] [place] [address]- 6907 Apr, [facility] [place] [facility] [address] [id number] [place] [address]- 1957 Apr, [facility] [place] [facility] [address] [id number] [place] [address]- 9983 Apr, [facility] [place] [facility] [address] [id number] [place] [address]- 9292 23 Apr, 2012 [facility] [place] [facility] [address] [id number] [place] [address]- 5968 14 Apr, 2012 [facility] [place] [facility] [address] [id number] [place] [address]- 0032 09 Apr, 2012 [facility] [place] [facility] [address] [id number] [place] [address]- 3151 Mar, [facility] [place] [facility] [address] [id number] [place] [address]- 9731 Jan, [facility] [place] [facility] [address] [id number] [place] [address]- 7349 Dec, [facility] [place] [facility] [address] [id number] [place] [address]- 8804 October, [facility] [place] [facility] [address] [id number] [place] [address]- 5936 Oct, [facility] [place] [facility] [address] [id number] [place] [address]- 6048 Oct, [facility] [place] [facility] [address] [id number] [place] [address]- 1989 Oct, [facility] [place] [facility] [address] [id number] [place] [address]- 4531 Aug, [facility] [place] [facility] [address] [id number] [place] [address]- 0707 Aug, [facility] [place] [facility] [address] [id number] [place] [address]- 0004 Aug, [facility] [place] [facility] [address] [id number] [place] [address]- 0486 16 Aug, 2011 [facility] [place] [facility] [address] [id number] [place] [address]- 1156 15 Aug, 2011 [facility] [place] [facility] [address] [id number], [place] [address]6 Aug, [facility] [address] [address]- 7936 Jun, [facility] [address] [address]- 5006 Apr, [facility] [address], [place] [address]- 6696 Jun, [facility] [id number] [place] [address]- 2546 Jun, [facility] [id number] [place] [address]78- 9633 May, [facility] [id number] [place] [address]- 5066 May, [facility] [id number] [place] [address] 14394- 7410 Apr, [facility] [id number] [address]- 1427 Apr, IMMUNIZATIONS No Known Immunizations SOCIAL HISTORY Never Assessed REASON FOR VISIT Lab (walk-in) PLAN OF CARE VITAL SIGNS MEDICATIONS Unknown Medications RESULTS Name Result Date Reference Range MAGNESIUM, SERUM 2016-12-23 Magnesium, Serum 2.3 1.6-2.3 ESR/SED RATE 2016-12-23 Sedimentation Rate-Westergren 29 0-32 CMP 2016-12-23 Glucose, Serum 84 65-99 BUN 13 6-20 Creatinine, Serum 0.69 0.57-1.00 eGFR If NonAfricn Am 110 >59 eGFR If Africn Am 127 >59 BUN/Creatinine Ratio 19 9-23 Sodium, Serum 141 134-144 Potassium, Serum 4.6 3.5-5.2 Chloride, Serum 103 96-106 Carbon Dioxide, Total 20 18-29 Calcium, Serum 9.2 8.7-10.2 Protein, Total, Serum 6.8 6.0-8.5 Albumin, Serum 4.2 3.5-5.5 Globulin, Total 2.6 1.5-4.5 A/G Ratio 1.6 1.2-2.2 Bilirubin, Total <0.2 0.0-1.2 Alkaline Phosphatase, S 56 39-117 AST (SGOT) 13 0-40 ALT (SGPT) 10 0-32 CBC w/ MANUAL DIFF 2016-12-23 WBC 9.9 3.4-10.8 RBC 4.81 3.77-5.28 Hemoglobin 13.0 11.1-15.9 Hematocrit 40.0 34.0-46.6 MCV 83 79-97 MCH 27.0 26.6-33.0 MCHC 32.5 31.5-35.7 RDW 17.0 12.3-15.4 Platelets 377 150-379 Neutrophils 70 Lymphs 26 Monocytes 4 Eos 0 Basos 0 Neutrophils Absolute 6.9 1.4-7.0 Lymphs (Absolute) 2.6 0.7-3.1 Monocytes(Absolute) 0.4 0.1-0.9 Eos (Absolute Value) 0.0 0.0-0.4 Baso(Absolute) 0.0 0.0-0.2 Differential Comment Note: RBC Comment Note: Normal Platelet Comment Note: Adequate PROCEDURES Procedure Date Ordered Result Body Site COMPREHEN METABOLIC PANEL December 23, 2016 ASSAY OF MAGNESIUM December 23, 2016 MANUAL CELL COUNT, EACH December 23, 2016 RBC SED RATE, AUTOMATED December 23, 2016 VENIPUNCT, ROUTINE* December 23, 2016 INSTRUCTIONS MEDICATIONS ADMINISTERED No Known Medications MEDICAL [...] History see above surgeries Hospitalization History Anaphylactic shock-[facility] 08/23/16
--- OUTSIDE RECORDS SUMMARY | 2018-07-18 07:33 | XMS REPORT ---
Author Author BRANDY SAGAR [facility] Address [address] [place] [address] Care Team Providers Care Fret Saw Operator Name Role Phone BRANDYTEZ HOYTHANY Unavailable PROBLEMS Type Condition ICD9-CM Code OLJ38-QN Code Onset Dates Condition Status SNOMED Code Problem ADD (attention deficit disorder) F90.0 Active 534186418 Problem Major depressive disorder, recurrent episode, mild F33.0 Active 977012568 Problem Allergic rhinitis due to pollen J30.1 Active 91910186 Problem Current chronic use of inhaled steroid Z79.51 Active 737038067 Problem Asthma exacerbation J45.901 Active 769559031 Problem Pure hypercholesterolemia E78.00 Active 589925431 Problem PCOS (polycystic ovarian syndrome) E28.2 Active 62492449 Problem Multiple food allergies Z91.018 Active 775684683 Problem Dental examination Z01.20 Active 100177245 Problem Uncomplicated severe persistent asthma J45.50 Active 545171826 Problem Gastroesophageal reflux disease without esophagitis K21.9 Active 501300455 Problem Migraine with aura and without status migrainosus, not intractable G43.109 Active 1820853 Problem Vitamin D deficiency E55.9 Active 90270591 Problem Acquired hypothyroidism E03.9 Active 045685267 ALLERGIES Unknown Allergies SOCIAL HISTORY No smoking Hx information available PLAN OF CARE VITAL SIGNS MEDICATIONS Unknown Medications RESULTS Name Result Date Reference Range TSH 2016-08-08 TSH 1.770 0.450-4.500 CBC 2016-08-08 WBC 7.9 3.4-10.8 RBC 4.83 3.77-5.28 Hemoglobin 12.5 11.1-15.9 Hematocrit 39.3 34.0-46.6 MCV 81 79-97 MCH 25.9 26.6-33.0 MCHC 31.8 31.5-35.7 RDW 15.8 12.3-15.4 Platelets 328 150-379 Neutrophils 66 Lymphs 30 Monocytes 3 Eos 1 Basos 0 Immature Cells Neutrophils (Absolute) 5.2 1.4-7.0 Lymphs (Absolute) 2.4 0.7-3.1 Monocytes(Absolute) 0.3 0.1-0.9 Eos (Absolute) 0.0 0.0-0.4 Baso (Absolute) 0.0 0.0-0.2 Immature Granulocytes 0 Immature Grans (Abs) 0.0 0.0-0.1 NRBC Hematology Comments: LIPID PANEL 2016-08-08 Cholesterol, Total 193 100-199 Triglycerides 94 0-149 HDL Cholesterol 37 >39 VLDL Cholesterol Cole 19 5-40 LDL Cholesterol Calc 137 0-99 Comment: CMP 2016-08-08 Glucose, Serum 84 65-99 BUN 12 6-20 Creatinine, Serum 0.74 0.57-1.00 eGFR If NonAfricn Am 102 >59 eGFR If Africn Am 118 >59 BUN/Creatinine Ratio 16 8-20 Sodium, Serum 141 134-144 Potassium, Serum 4.4 3.5-5.2 Chloride, Serum 102 96-106 Carbon Dioxide, Total 19 18-29 Calcium, Serum 8.9 8.7-10.2 Protein, Total, Serum 6.4 6.0-8.5 Albumin, Serum 3.9 3.5-5.5 Globulin, Total 2.5 1.5-4.5 A/G Ratio 1.6 1.1-2.5 Bilirubin, Total <0.2 0.0-1.2 Alkaline Phosphatase, S 57 39-117 AST (SGOT) 10 0-40 ALT (SGPT) 12 0-32 PROCEDURES Procedure Date Ordered Related Diagnosis Body Site ASSAY THYROID STIM HORMONE Aug 08, 2016 COMPLETE CBC W/AUTO DIFF WBC Aug 08, 2016 COMPREHEN METABOLIC PANEL Aug 08, 2016 LIPID PANEL Aug 08, 2016 VENIPUNCT, ROUTINE* Aug 08, 2016 IMMUNIZATIONS No Known Immunizations
--- OUTSIDE RECORDS SUMMARY | 2018-07-18 07:34 | XMS REPORT ---
Author Author BRANDY SAGAR [facility] Address [address] [place] [address] Care Team Providers Care Credit Risk Management Director Name Role Phone SAGAR NAVA Unavailable PROBLEMS Type Condition ICD9-CM Code VRI13-KX Code Onset Dates Condition Status SNOMED Code Problem Migraine with aura and without status migrainosus, not intractable G43.109 Active 7847598 Problem PCOS (polycystic ovarian syndrome) E28.2 Active 97243375 Problem Uncomplicated severe persistent asthma J45.50 Active 602483150 Problem Severe persistent asthma with exacerbation J45.51 Active 504796685 Problem Other elevated white blood cell (WBC) count D72.828 Active 843272583 Problem Multiple food allergies Z91.018 Active 345895275 Problem Pure hypercholesterolemia E78.00 Active 896289347 Problem Current chronic use of inhaled steroid Z79.51 Active 188565844 Problem Asthma exacerbation J45.901 Active 375395349 Problem ADD (attention deficit disorder) F90.0 Active 514182824 Problem Allergic rhinitis due to pollen J30.1 Active 38687936 Problem Vitamin D deficiency E55.9 Active 77424918 Problem Major depressive disorder, recurrent episode, mild F33.0 Active 168045527 Problem Acquired hypothyroidism E03.9 Active 403853906 Problem Gastroesophageal reflux disease without esophagitis K21.9 Active 547079628 ALLERGIES No Information ENCOUNTERS Encounter Location Date Diagnosis [facility] [id number] [address] Dec, [facility] [id number] [address] Oct, [facility] [address], [place] [address] Oct, Allergic rhinitis due to pollen J30.1 [facility] [address] [place] [address] 06845- 7233 Oct, [place] [id number] [place] [address] 82724- 1728 Oct, Allergic rhinitis due to pollen J30.1 [place] [address] 36097- 8178 13 Oct, 2017 Severe persistent asthma with exacerbation J45.51 and Pneumonia due to Haemophilus influenzae, unspecified laterality, unspecified part of lung J14 [place] [id number] [place] [address] 22156- 0025 Oct, ADD (attention deficit disorder) F90.[address] 22399- 5096 Aug, Haemophilus influenzae infection A49.[address] 66226- 3579 Aug, Cough productive of purulent sputum R05 [place] [address] 24254- 9068 Aug, [address] 25461- 1233 Aug, Pulmonary congestion R09.[address] 00796- 9870 Aug, Severe persistent asthma with exacerbation J45.51 ; Hiatal hernia K44.9 and Gastroesophageal reflux disease without esophagitis K21.9 [place] [id number] [place] [address] 40299- 6479 Aug, Other elevated white blood cell (WBC) count D72.[address] 39478- 8857 Aug, Uncomplicated severe persistent asthma J45.[address] 13515- 6762 Aug, Pure hypercholesterolemia E78.00 ; Uncomplicated severe persistent asthma J45.50 and Acquired hypothyroidism E03.9 [facility] [address] 71762- 6838 Aug, Acquired hypothyroidism E03.9 ; Pure hypercholesterolemia E78.00 and Uncomplicated severe persistent asthma J45.50 [place] [address] 78501- 7836 15 Aug, 2017 Allergic rhinitis due to pollen J30.1 [place] [address] 49958- 2150 Aug, Allergic rhinitis due to pollen J30.1 [place] [address] 86109- 7955 Aug, [place] [address] [id number] Jul, Pharyngitis, unspecified etiology J02.9 and Lymphadenopathy R59.1 [place] [address] 61187- 1428 Jul, ADD (attention deficit disorder) F90.[address] 20005- 7560 Jul, Allergic rhinitis due to pollen J30.1 [place] [address] 60693- 6903 Jul, Dental examination Z01.20 [place] [address] 39439- 7895 Jun, Cough productive of purulent sputum R05 [place] [address] 69713- 8396 Jun, Allergic rhinitis due to pollen J30.1 [place] [address] 71510- 1407 Jun, [place] [address] 18347- 0294 Jun, Allergic rhinitis due to pollen J30.1 [place] [address], [place] [address] 2106 Jun, Allergic rhinitis due to pollen J30.1 [place] [address] [place] [address] 26254- 7676 May, Allergic rhinitis due to pollen J30.1 [place] [id number] [place] [address] 44104- 8874 May, Pneumonia due to Haemophilus influenzae, unspecified laterality, unspecified part of lung J14 [place] [id number] [place] [address] 52002- 9869 May, Allergic rhinitis due to pollen J30.1 [place] [id number] [place] [address] 65498- 1483 May, Other adverse food reactions, not elsewhere classified, initial encounter T78.1XXA and Pneumonia due to Haemophilus influenzae, unspecified laterality, unspecified part of lung J14 [place] [id number] [place] [address] 33551- 3725 May, Pneumonia due to Haemophilus influenzae, unspecified laterality, unspecified part of lung J14 [place] [id number] [place] [address] 02238- 2169 May, Multiple food allergies Z91.018 ; Uncomplicated severe persistent asthma J45.50 ; Cough productive of purulent sputum R05 and Uses central nervous system stimulants F15.90 [place] [address] [place] [address] 83079- 1557 Apr, Allergic rhinitis due to pollen J30.1 [place] [id number] [place] [address] 76056- 9182 Apr, Allergic rhinitis due to pollen J30.1 [place] [id number] [place] [address] 31087- 9710 Apr, Allergic rhinitis due to pollen J30.1 [place] [id number] [place] [address] 95756- 9125 Apr, ADD (attention deficit disorder) F90.0 [place] [address] 92157- 2648 28 Mar, 2017 Allergic rhinitis due to pollen J30.1 [place] [address] 13783- 7338 21 Mar, 2017 Encounter for immunization Z23 [place] [address] 35324- 8242 19 Mar, 2017 [place] [address] 00979- 6625 14 Mar, 2017 Allergic rhinitis due to pollen J30.1 [place] [address] 92924- 2957 07 Mar, 2017 Allergic rhinitis due to pollen J30.1 [place] [address] 42429- 0877 Jan, Allergic rhinitis due to pollen J30.1 [place] [id number] [place] [address] 48763- 8678 Jan, Allergic rhinitis due to pollen J30.1 [place] [id number] [place] [address] 72384- 9642 Dec, Uncomplicated severe persistent asthma J45.50 [place] [id number] [place] [address] 99883- 6918 Dec, Allergic rhinitis due to pollen J30.1 [place] [id number] [place] [address] 11986- 8080 Dec, Allergic rhinitis due to pollen J30.1 [place] [id number] [place] [address] 17371- 7620 Dec, Allergic rhinitis due to pollen J30.1 [place] [id number] [place] [address] 68194- 8503 13 David, 2017 ADD (attention deficit disorder) F90.0 [place] [address] [place] [address] 14533- 3075 Dec, Allergic rhinitis due to pollen J30.1 [place] [id number] [place] [address] 24358- 7246 Dec, Visit for TB skin test Z11.1 and Screening for tuberculosis Z11.1 [place] [address] 79195- 2579 Dec, Uncomplicated severe persistent asthma J45.50 ; Palpitations R00.2 ; Pericardial effusion (noninflammatory) I31.3 and Chest discomfort R07.89 [place] [id number] [place] [address] 77458- 1532 Dec, Allergic rhinitis due to pollen J30.1 [place] [id number] [place] [address] 57342- 5132 Dec, Chronic cough R05 [place] [id number] [place] [address] 19273- 7147 Dec, [place] [id number] [place] [address] 55260- 7379 Dec, Allergic rhinitis due to pollen J30.1 [place] [id number] [place] [address] 17894- 7485 Dec, Allergic rhinitis due to pollen J30.1 [place] [id number] [place] [address] 34480- 4283 Dec, Chronic cough R05 [place] [id number] [place] [address] 95523- 0860 October, Allergic rhinitis due to pollen J30.1 [place] [id number] [place] [address] 60799- 7979 October, Allergic rhinitis due to pollen J30.1 [place] [id number] [place] [address] 60292- 5875 October, [place] [address] [place] [address] 38233- 7020 October, Asthma exacerbation J45.901 [place] [id number] [place] [address] 10244- 5653 October, Asthma exacerbation J45.901 and Current chronic use of inhaled steroid Z79.51 [place] [address] 90788- 4742 October, Uncomplicated severe persistent asthma J45.50 [place] [id number] [place] [address] 98997- 3613 October, Allergic rhinitis due to pollen J30.1 [place] [id number] [place] [address] 41353- 9324 Oct, [place] [address] 45496- 1079 Oct, Asthma exacerbation J45.901 and Sputum production R05 [place] [id number] [place] [address] 59870- 5516 Oct, Asthma exacerbation J45.901 [place] [id number] [place] [address] 32051- 6819 Oct, ADD (attention deficit disorder) F90.0 [place] [id number] [place] [address] 14996- 0197 Oct, ADD (attention deficit disorder) F90.0 [place] [id number] [place] [address] 37219- 8755 Aug, Allergic rhinitis due to pollen J30.1 [place] [id number] [place] [address] 36420- 6257 Aug, Atypical pneumonia J18.9 [place] [id number] [place] [address] 60118- 0048 Aug, Allergic rhinitis due to pollen J30.1 [place] [address] 53820- 5713 Aug, Acquired hypothyroidism E03.9 [place] [address] 92986- 8116 Aug, Multiple food allergies Z91.018 ; Elevated blood pressure reading R03.0 and Anaphylaxis, subsequent encounter T78.2XXD [address] [id number] Aug, [place] [address] 72919- 7336 Aug, Anaphylaxis, initial encounter T78.2XXA [address] 76790- 9170 Aug, Allergic rhinitis due to pollen J30.[address] 88230- 2761 Aug, Dental examination Z01.20 [place] [address] 99480- 2031 Aug, Allergic rhinitis due to pollen J30.1 [place] [address] 31510- 0396 Aug, Acquired hypothyroidism E03.9 and Pure hypercholesterolemia E78.[address] 58797- 3677 Aug, ADD (attention deficit disorder) F90.0 ; Acquired hypothyroidism E03.9 and Pure hypercholesterolemia E78.00 [place] [address] 33366- 3996 Aug, Asthma exacerbation J45.901 [place] [address] 10333- 0861 Jul, Allergic rhinitis due to pollen J30.1 [place] [address] 41896- 9104 Jul, Allergic rhinitis due to pollen J30.1 [facility] [address], [place] [address]- 4685 Jul, [facility] [address] [place] [address] 83708- 1310 Jul, Allergic rhinitis due to pollen J30.1 [facility] [address] [place] [address] 02935- 8116 Jul, Other long-term (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 and ADD ( attention deficit disorder) F90.0 [facility] [id number] [place] [address] 99261- 7729 Jul, Other long-term (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 and ADD ( attention deficit disorder) F90.0 [place] [id number] [place] [address] 52234- 5617 Jul, [facility] [id number] [place] [address] 23447- 5949 Jun, Allergic rhinitis due to pollen J30.1 [facility] [id number] [place] [address] 29695- 9641 Jun, Allergic rhinitis due to pollen J30.1 [facility] [address] [place] [address] 67122- 4084 Jun, [facility] [id number] [place] [address] 20940- 1724 May, Allergic rhinitis due to pollen J30.1 [facility] [address], [place] [address]- 6583 May, Allergic rhinitis due to pollen J30.1 [facility] [id number] [place] [address] 87980- 1923 Apr, Allergic rhinitis due to pollen J30.1 [facility] [address] [place] [address] 77408- 9474 Apr, Allergic rhinitis due to pollen J30.1 [facility] [address] [place] [address] 01460- 0496 Apr, Encounter for immunization Z23 [facility] [id number] [place] [address] 11421- 4024 Apr, [facility] [id number] [place] [address] 38762- 5380 Mar, Allergic rhinitis due to pollen J30.1 [facility] [id number] [place] [address] 55538- 6649 Mar, Multiple allergies Z88.9 [place] [id number] [place] [address] 64849- 5912 Mar, Candidal vaginitis B37.3 [place] [id number] [place] [address] 69332- 0953 Mar, Allergic rhinitis due to pollen J30.1 [facility] [id number] [place] [address] 86618- 7194 Jan, Asthma exacerbation J45.901 ; Fatigue, unspecified type R53.83 and Community acquired pneumonia J18.9 [facility] [address] [place] [address] [id number] Jan, Encounter for dental examination Z01.20 [facility] [address] [place] [address] 79080- 8249 Jan, Allergic rhinitis due to pollen J30.1 [facility] [address] [place] [address] 49374- 6151 Dec, Allergic rhinitis due to pollen J30.1 [facility] [id number] [place] [address] 35534- 5876 Dec, [facility] [id number] [place] [address] 06631- 0868 Dec, Allergic rhinitis due to pollen J30.1 [facility] [id number], [place] [address]- 6800 Dec, [facility] [id number] [place] [address] 83167- 7693 Dec, [facility] [address], [place] [address]- 7420 Dec, [facility] [address] [place] [address] 84460- 6900 Dec, Allergic rhinitis due to pollen J30.1 [facility] [address] [place] [address] 81087- 2870 Dec, [facility] [id number] [place] [address] 05443- 4956 Dec, [facility] [id number] [place] [address] 35772- 9010 Dec, Allergic rhinitis due to pollen J30.1 [facility] [id number] [place] [address] 92255- 7664 October, Allergic rhinitis due to pollen J30.1 [facility] [address] [place] [address] 62938- 6819 October, Allergic rhinitis due to pollen J30.1 [facility] [address] [place] [address] 78454- 3632 October, [facility] [address] [place] [address] 26571- 4593 October, [facility] [address] [place] [address] 30845- 9875 October, ADD (attention deficit disorder) F90.0 ; Major depressive disorder, recurrent episode, mild F33.0 and Uncomplicated severe persistent asthma J45.50 [facility] [address], [place] [address]- 7380 Oct, Allergic rhinitis due to pollen J30.1 [facility] [id number] [place] [address] 47227- 4743 Oct, ADD (attention deficit disorder) F90.0 [facility] [id number] [place] [address] 62257- 9026 Oct, Allergic rhinitis due to pollen 477.0 [facility] [id number] [place] [address] 45051- 6263 Aug, Allergic rhinitis due to pollen 477.0 [facility] [id number] [place] [address] 66457- 8353 Aug, 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 [facility] [id number] [place] [address] 78704- 4489 Aug, [facility] [id number] [place] [address] 17930- 4402 Aug, Allergic rhinitis due to pollen 477.0 [place] [id number] [place] [address] 19153- 8569 Aug, Allergic rhinitis due to pollen 477.0 [facility] [id number] [place] [address] 99866- 6910 Aug, Allergic rhinitis due to pollen 477.0 [facility] [id number] [place] [address] 97268- 6970 Aug, Exposure to influenza Z20.828 [facility] [id number] [place] [address] [id number] Aug, Encounter for dental examination and cleaning without abnormal findings Z01.20 [facility] [id number] [place] [address] 35967- 7568 Aug, Allergic rhinitis due to pollen J30.1 [facility] [id number] [place] [address] 58120- 9222 Aug, [facility] [id number] [place] [address] 79793- 4239 Aug, 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 [place] [id number] [place] [address] 47716- 0116 Jul, [place] [address] 16068- 3458 Jul, Allergic rhinitis due to pollen 477.0 [place] [address] 44402- 1197 Jul, [place] [address] 43484- 7486 Jul, Allergic rhinitis due to pollen 477.0 [place] [address] 44086- 3488 Jun, ADD (attention deficit disorder) F90.0 ; Acquired hypothyroidism E03.9 ; PCOS (polycystic ovarian syndrome) E28.2 ; Polyarthralgia M25.50 and On stimulant medication Z79.899 [place] [address] 18592- 3941 Apr, Encounter for immunization Z23 [address] 99917- 8680 16 Mar, 2015 Allergic rhinitis due to pollen 477.0 [place] [id number] [place] [address] 76666- 6257 Mar, Influenza vaccine administered V04.81 [place] [address] 18735- 3444 Mar, [place] [address] 05295- 9469 Jan, Allergic rhinitis due to pollen 477.0 [place] [address] 90539- 8881 Jan, Allergic rhinitis due to pollen 477.0 [place] [address] 38200- 0629 Jan, Allergic rhinitis due to pollen 477.0 [facility] [address] [id number] [id number] 14 Jan, 2015 Dental examination V72.2 [facility] [address] [address]- 5366 Dec, Allergic rhinitis due to pollen 477.0 [facility] [address], [place] [address]- 8051 October, [facility] [address], [place] [address]- 1615 Oct, [facility] [address], [place] [address]- 4346 Oct, [facility] [address], [place] [address]- 9467 Aug, [facility] [address], [place] [address]- 3989 Aug, [facility] [address], [place] [address]- 2078 Aug, [facility] [address], [place] [address]- 8828 Aug, [facility] [address], [place] [address]- 6882 Aug, [facility] [address], [place] [address]- 8573 Aug, [facility] [address], [place] [address]- 4878 Aug, [facility] [address], [place] [address]- 8787 Aug, [facility] [address] [address] 9804 Jul, [facility] [address], [place] [address]- 0707 Jul, [facility] [place] [facility] [address] [id number] [place] [address]- 8101 10 Jul, 2014 [facility] [place] [facility] [address] [id number] [place] [address]- 1828 Jul, [facility] [place] [facility] [address] [id number] [place] [address]- 7336 Jul, [facility] [place] [facility] [address] [id number] [place] [address]- 7786 Jul, [facility] [place] [facility] [address] [id number] [place] [address]- 0126 Jul, [facility] [place] [facility] [address] [id number] [place] [address]- 2872 Jul, [facility] [place] [facility] [address] [id number] [place] [address] Jul, [facility] [place] [facility] [address] [id number] [place] [address] Jul, [facility] [place] [facility] [address] [id number] [place] [address] Jul, [facility] [place] [facility] [address] [id number] [place] [address] Jun, [facility] [place] [facility] [address] [id number] [place] [address] Jun, [facility] [place] [facility] [address] [id number] [place] [address] Jun, [facility] [place] [facility] [address] [id number] [place] [address] Jun, [facility] [place] [facility] [address] [id number] [place] [address] Jun, [facility] [place] [facility] [address] [id number] [place] [address] Jun, [facility] [place] [facility] [address] [id number] [place] [address] May, [facility] [place] [facility] [address] [id number] [place] [address] May, [facility] [place] [facility] [address] [id number] [place] [address] May, [facility] [place] [facility] [address] [id number] [place] [address] May, [facility] [place] [facility] [address] [id number] [place] [address] May, [facility] [place] [facility] [address] [id number] [place] [address] May, [facility] [place] [facility] [address] [id number] [place] [address] Apr, [facility] [place] [facility] [address] [id number] [place] [address] Apr, [facility] [place] [facility] [address] [id number] [place] [place] [address] 30 Mar, 2014 [facility] [place] [facility] [address] [id number] [place] [address] 30 Mar, 2014 [facility] [place] [facility] [address] [id number] [place] [address] 5746 30 Mar, 2014 [facility] [place] [facility] [address] [id number] [place] [address]23 30 Mar, 2014 [facility] [place] [facility] [address] [id number], [place] [address] Mar, [facility] [place] [facility] [address] [id number] [place] [address] 30[address] Mar, [facility] [place] [facility] [address] [id number] [place] [address] 2475 Jan, [facility] [place] [facility] [address] [id number] [place] [address] 9770 Jan, [facility] [place] [facility] [address] [id number] [place] [address] 8793 Jan, [facility] [place] [facility] [address] [id number] [place] [address] 7910 Jan, [facility] [place] [facility] [address] [id number] [place] [address] 4162 Jan, [facility] [place] [facility] [address] [id number] [place] [address] 4230 Jan, [facility] [place] [facility] [address] [id number] [place] [address] 4537 Dec, [facility] [place] [facility] [address] [id number] [place] [address]- 2658 Dec, [facility] [place] [facility] [address] [id number] [place] [address] 4117 Dec, [facility] [place] [facility] [address] [id number] [place] [address]- 9065 Dec, [facility] [place] [facility] [address] [id number] [place] [address]- 7459 Dec, [facility] [place] [facility] [address] [id number] [place] [address]- 2521 Dec, [facility] [place] [facility] [address] [id number] [place] [address]- 1363 Dec, [facility] [place] [facility] [address] [id number] [place] [address]- 7423 Dec, [facility] [place] [facility] [address] [id number] [place] [address]- 2784 Dec, [facility] [place] [facility] [address] [id number] [place] [address]- 1530 Dec, [facility] [place] [facility] [address] [id number] [place] [address]- 4575 Dec, [facility] [place] [facility] [address] [id number] [place] [address] 4315 Dec, [facility] [place] [facility] [address] [id number] [place] [address]- 3795 Dec, [facility] [place] [facility] [address] [id number] [place] [address]- 1367 Dec, [facility] [place] [facility] [address] [id number] [place] [address]- 6652 Dec, [facility] [place] [facility] [address] [id number] [place] [address]- 1015 Dec, [facility] [place] [facility] [address] [id number] [place] [address] 6684 October, [facility] [place] [facility] [address] [id number] [place] [address]- 7577 October, [facility] [place] [facility] [address] [id number] [place] [address] 8963 October, [facility] [place] [facility] [address] [id number] [place] [address]- 5966 October, [facility] [place] [facility] [address] [id number] [place] [address]- 6579 October, [facility] [place] [facility] [address] [id number] [place] [address] 8227 October, [facility] [place] [facility] [address] [id number] [place] [address] 5160 Oct, [facility] [place] [facility] [address] [id number] [place] [address]- 5545 Oct, [facility] [place] [facility] [address] [id number] [place] [address] 7149 Oct, [facility] [place] [facility] [address] [id number] [place] [address]- 3525 Oct, [facility] [place] [facility] [address] [id number] [place] [address] 0700 Oct, [facility] [place] [facility] [address] [id number], [place] [address] 6[address] Oct, [facility] [address] [id number] [place] [address] 0659 Aug, [facility] [place] [facility] [address] [id number] [place] [address] Aug, [facility] [address] [id number] [place] [address] 8708 Aug, [facility] [place] [facility] [address] [id number] [place] [address] 0501 Aug, [facility] [address] [id number] [place] [address] 3353 Jul, [facility] [address] [id number] [place] [address]- 9075 Jul, [facility] [address] [id number] [place] [address]- 7614 Jul, [facility] [place] [facility] [address] [id number] [place] [address] 7418 Jul, [facility] [address] [id number] [place] [address]- 8093 Jun, [facility] [place] [facility] [address] [id number] [place] [address]- 0106 31 Jun, 2013 [facility] [place] [facility] [address] [id number] [place] [address]- 9122 24 Jun, 2013 [facility] [place] [facility] [address] [id number] [place] [address]- 3590 24 Jun, 2013 [facility] [place] [facility] [address] [id number] [place] [address]99 20 Jun, 2013 [facility] [place] [facility] [address] [id number] [place] [address] 18 Jun, 2013 [facility] [place] [facility] [address] [id number] [place] [address] 18 Jun, 2013 [facility] [place] [facility] [address] [id number] [place] [address]- 4797 Jun, [facility] [address] [id number] [place] [address]- 7823 Jun, [facility] [place] [facility] [address] [id number] [place] [address]- 2403 Jun, [facility] [address] [id number] [place] [address]- 9242 Jun, [facility] [place] [facility] [address] [id number] [place] [address]- 1174 May, [facility] [address] [id number] [place] [address]- 7083 May, [facility] [address] [id number] [place] [address]- 0525 May, [facility] [address] [id number] [place] [address]- 5212 May, [facility] [address] [id number] [place] [address]- 2163 May, [facility] [place] [facility] [address] [id number] [place] [address]- 7390 May, [facility] [address] [id number] [place] [address]- 3126 May, [facility] [place] [facility] [address] [id number] [place] [address]- 2766 Apr, [facility] [place] [facility] [address] [id number] [place] [address]- 3032 Apr, [facility] [place] [facility] [address] [id number] [place] [address]- 0824 Apr, [facility] [place] [facility] [address] [id number] [place] [address]- 2546 Apr, [facility] [place] [facility] [address] [id number] [place] [address]- 5696 Mar, [facility] [place] [facility] [address] [id number] [place] [address]- 3064 Mar, 2012 [facility] [place] [facility] [address] [id number] [place] [address]- 5957 Mar, [facility] [place] [facility] [address] [id number] [place] [address] 1951 Mar, 2012 [facility] [place] [facility] [address] [id number] [place] [address]- 8893 Mar, [facility] [place] [facility] [address] [id number] [place] [address]- 8995 Mar, [facility] [place] [facility] [address] [id number] [place] [address]- 3594 Jan, [facility] [place] [facility] [address] [id number] [place] [address]- 2131 Jan, [facility] [place] [facility] [address] [id number] [place] [address]- 8245 Jan, [facility] [place] [facility] [address] [id number] [place] [address]- 5952 Jan, [facility] [place] [facility] [address] [id number] [place] [address]- 6520 Jan, [facility] [place] [facility] [address] [id number] [place] [address]- 0981 Dec, [facility] [place] [facility] [address] [id number] [place] [address]- 4881 Dec, [facility] [place] [facility] [address] [id number] [place] [address]- 3833 Dec, [facility] [place] [facility] [address] [id number] [place] [address]- 1346 Dec, [facility] [place] [facility] [address] [id number] [place] [address]- 7601 Dec, [facility] [place] [facility] [address] [id number] [place] [address]- 5546 Dec, [facility] [address] [id number] [place] [address]- 2048 Dec, [facility] [address] [id number] [place] [address]- 2420 Dec, [facility] [address] [id number] [place] [address]- 0525 October, [facility] [address] [id number] [place] [address]- 8049 October, [facility] [address] [id number] [place] [address]- 0008 October, [facility] [address] [id number] [place] [address]- 8308 Oct, [facility] [address] [id number] [place] [address]- 7713 Oct, [facility] [address] [id number] [place] [address]- 8499 Oct, [facility] [address] [id number] [place] [address]- 5705 Oct[facility] [address] [id number] [place] [address]- 5702 Aug, [facility] [address] [id number] [place] [address]- 3584 Aug, [facility] [place] [facility] [address] [id number] [place] [address]- 8194 05 Aug, 2012 [facility] [address] [id number] [place] [address]- 8544 Jul, [facility] [place] [facility] [address] [id number] [place] [address]- 9311 May, [facility] [address] [id number] [place] [address]- 4073 May, [facility] [place] [facility] [address] [id number] [place] [address]- 0777 Apr, [facility] [place] [facility] [address] [id number] [place] [address]- 7388 Apr, [facility] [place] [facility] [address] [id number] [place] [address]- 0696 Apr, [facility] [place] [facility] [address] [id number] [place] [address]- 9371 Apr, [facility] [place] [facility] [address] [id number] [place] [address]- 7510 Apr, [facility] [place] [facility] [address] [id number] [place] [address]- 0494 Apr, [facility] [place] [facility] [address] [id number] [place] [address]- 9449 Apr, [facility] [place] [facility] [address] [id number] [place] [address]- 4603 Apr, [facility] [place] [facility] [address] [id number] [place] [address]- 1504 Apr, [facility] [place] [facility] [address] [id number] [place] [address]- 1302 Apr, [facility] [place] [facility] [address] [id number] [place] [address]- 6224 Apr, [facility] [place] [facility] [address] [id number] [place] [address]- 6738 Apr, [facility] [place] [facility] [address] [id number] [place] [address]- 5492 Mar, [facility] [place] [facility] [address] [id number] [place] [address]- 8216 Jan, [facility] [place] [facility] [address] [id number] [place] [address] 2546 Dec, [facility] [place] [facility] [address] [id number] [place] [address]- 7355 October, [facility] [address] [id number] [place] [address]- 2987 Oct, [facility] [place] [facility] [address] [id number] [place] [address]- 2626 Oct, [facility] [place] [facility] [address] [id number] [place] [address]- 4502 Oct, [facility] [place] [facility] [address] [id number] [place] [address]- 4570 Aug, [facility] [place] [facility] [address] [id number] [place] [address]- 0127 Aug, [facility] [place] [facility] [address] [id number] [place] [address]- 1256 29 Aug, 2011 [facility] [place] [facility] [address] [id number] [place] [address]- 1914 16 Aug, 2011 [facility] [place] [facility] [address] [id number] [place] [address]- 2737 15 Aug, 2011 [facility] [place] [facility] [address] [id number] [place] [address]- 9843 Aug, [facility] [place] [facility] [address] [id number] [place] [address]- 1199 Jun, [facility] [place] [facility] [address] [id number] [place] [address]- 5180 Apr, [facility] [place] [facility] [address] [id number] [place] [address]- 2363 Jun, [facility] [place] [facility] [address] [id number] [place] [address]- 5166 Jun, [facility] [place] [facility] [address] [facility] [id number] [place] [address]- 6818 May, [facility] [place] [facility] [address] [id number] [place] [address]- 5638 May, [facility] [place] [facility] [address] [facility] [id number] [place] [address]- 0277 15 Apr, 2009 [facility] [address] [facility] [id number] [place] [address]- 1256 13 Apr, 2009 IMMUNIZATIONS No Known Immunizations SOCIAL HISTORY Never Assessed REASON FOR VISIT Allergy injection(s) PLAN OF CARE VITAL SIGNS MEDICATIONS Unknown Medications RESULTS No Results PROCEDURES Procedure Date Ordered Result Body Site IMMUNOTHERAPY, 2 OR MORE INJECTIONS 2017-04-28 N/A IMMUNOTHERAPY INJECTIONS Apr 28, 2017 INSTRUCTIONS MEDICATIONS ADMINISTERED No Known [...] History see above surgeries Hospitalization History Anaphylactic shock-[facility] 08/23/16
--- OUTSIDE RECORDS SUMMARY | 2018-07-18 07:35 | XMS REPORT ---
Author Author SAGAR NAVA Organization [facility] Address [address] [place] [address] Care Team Providers Care Brine Maker Name Role Phone SAGAR NAVA Unavailable PROBLEMS Type Condition ICD9-CM Code [id number] Code Onset Dates Condition Status SNOMED Code Problem Gastroesophageal reflux disease without esophagitis K21.9 Active 210584340 Problem ADD (attention deficit disorder) F90.0 Active 968719522 Problem Acquired hypothyroidism E03.9 Active 757433044 Problem Current chronic use of inhaled steroid Z79.51 Active 757148480 Problem Asthma exacerbation J45.901 Active 619866071 Problem Pure hypercholesterolemia E78.00 Active 579594027 Problem Allergic rhinitis due to pollen J30.1 Active 74421352 Problem Multiple food allergies Z91.018 Active 720870250 Problem Dental examination Z01.20 Active 451426194 Problem Major depressive disorder, recurrent episode, mild F33.0 Active 275104616 Problem Uncomplicated severe persistent asthma J45.50 Active 734251987 Problem Migraine with aura and without status migrainosus, not intractable G43.109 Active 3737919 Problem Vitamin D deficiency E55.9 Active 47751071 Problem PCOS (polycystic ovarian syndrome) E28.2 Active 25298959 ALLERGIES Unknown Allergies SOCIAL HISTORY No smoking Hx information available PLAN OF CARE VITAL SIGNS MEDICATIONS Unknown Medications RESULTS No Results PROCEDURES Procedure Date Ordered Related Diagnosis Body Site IMMUNOTHERAPY, 2 OR MORE INJECTIONS 2016-06-23 N/A IMMUNOTHERAPY INJECTIONS Jun 23, 2016 IMMUNIZATIONS No Known Immunizations
--- OUTSIDE RECORDS SUMMARY | 2018-07-18 07:35 | XMS REPORT ---
Author Author SAGAR NAVA [facility] Address [address] [place] [address] Care Team Providers Care Wood Pole Treater Name Role Phone SAGAR NAVA Unavailable PROBLEMS Type Condition ICD9-CM Code CUG13-XM Code Onset Dates Condition Status SNOMED Code Problem ADD (attention deficit disorder) F90.0 Active 204913987 Problem Major depressive disorder, recurrent episode, mild F33.0 Active 490090646 Problem Allergic rhinitis due to pollen J30.1 Active 76894979 Problem Current chronic use of inhaled steroid Z79.51 Active 202612205 Problem Asthma exacerbation J45.901 Active 112687649 Problem Pure hypercholesterolemia E78.00 Active 454162133 Problem PCOS (polycystic ovarian syndrome) E28.2 Active 00967192 Problem Multiple food allergies Z91.018 Active 149896218 Problem Dental examination Z01.20 Active 552312076 Problem Uncomplicated severe persistent asthma J45.50 Active 041647478 Problem Gastroesophageal reflux disease without esophagitis K21.9 Active 749976752 Problem Migraine with aura and without status migrainosus, not intractable G43.109 Active 4337132 Problem Vitamin D deficiency E55.9 Active 71259558 Problem Acquired hypothyroidism E03.9 Active 754442989 ALLERGIES No Information SOCIAL HISTORY Never Assessed PLAN OF CARE VITAL SIGNS MEDICATIONS Medication Instructions Dosage Frequency Start Date End Date Duration Status Lutera 0.1-20 MG-MCG Orally Once a day 1 tablet 24h Active Singulair 10 mg take 1 tablet by Oral route 1 time per day Apr, Active Vitamin D 2000 UNIT Orally Once a day 1 tablet 24h Active Magnesium Oxide 250 MG Orally Once a day 2 tablets 24h Active Ibuprofen 800 MG Orally every 8 hours 1 tablet 8h 30 days Active ProAir RespiClick 108 (90 Base) MCG/ACT Inhalation every 4 hrs 1 puff as needed 4h 30 Dec, 2015 Active Levothyroxine Sodium 100 MCG Orally Once a day 1 tablet 24h 90 days Active pantoprazole 40 mg by oral route Once a day 1 tablet 24h 05 Aug, 2013 Active Symbicort 160-4.5 MCG/ACT Inhalation Twice a day 2 puffs 12h 7 Jan, 2017 90 days Active Concerta 54 MG Orally Once a day 1 tablet in the morning 24h Jul, 90 days Active EpiPen 2-Leo 0.3 MG/0.3ML Injection PRN Active Levocetirizine Dihydrochloride 5 MG TAKE ONE TABLET BY MOUTH TWICE DAILY 90 Active Albuterol Sulfate (2.5 MG/3ML) 0.083% Inhalation 4 times a day 3 ml as needed 6h 11 Oct, 2016 Active MetFORMIN HCl ER 1000 mg Orally Once a day 1 tablet with evening meal 24h Active Qvar 80 MCG/ACT Inhalation Twice a day 2 puffs 12h Active Ondansetron 8 MG DISSOLVE ONE TABLET UNDER TONGUE EVERY 6 HOURS NEEDED FOR NAUSEA OR VOMITING 20 Active Zoloft 50 MG Orally Once a day 1 tablet 24h Active Montelukast Sodium 10 MG TAKE ONE TABLET BY MOUTH IN THE EVENING 90 Active Nasonex 50 mcg/actuation Nasally 2 times a day 1 spray in each nare 12h Jan, 90 days Active Xyzal 5 mg 1 tablet by Oral route 2 times per day Mar, Active Spiriva HandiHaler 18 MCG Active RESULTS No Results PROCEDURES No Known procedures IMMUNIZATIONS No Known Immunizations MEDICAL (GENERAL) HISTORY Type Description Date Medical [...] History see above surgeries Hospitalization History Anaphylactic shock-[facility] 08/23/16
--- OUTSIDE RECORDS SUMMARY | 2018-07-18 07:35 | XMS REPORT ---
Author Author BRANDY SAGAR [facility] Address [address] [place] [address] Care Team Providers Care Golf Course Mechanic Name Role Phone BRANDYTEZ HOYTHANY Unavailable PROBLEMS Type Condition ICD9-CM Code CYR16-HG Code Onset Dates Condition Status SNOMED Code Problem Migraine with aura and without status migrainosus, not intractable G43.109 Active 5665621 Problem PCOS (polycystic ovarian syndrome) E28.2 Active 31634946 Problem Uncomplicated severe persistent asthma J45.50 Active 864996077 Problem Severe persistent asthma with exacerbation J45.51 Active 252836042 Problem Other elevated white blood cell (WBC) count D72.828 Active 899153718 Problem Multiple food allergies Z91.018 Active 253511691 Problem Pure hypercholesterolemia E78.00 Active 278610525 Problem Current chronic use of inhaled steroid Z79.51 Active 813688630 Problem Asthma exacerbation J45.901 Active 070281446 Problem ADD (attention deficit disorder) F90.0 Active 651103423 Problem Allergic rhinitis due to pollen J30.1 Active 38967981 Problem Vitamin D deficiency E55.9 Active 12379466 Problem Major depressive disorder, recurrent episode, mild F33.0 Active 750412448 Problem Acquired hypothyroidism E03.9 Active 119602393 Problem Gastroesophageal reflux disease without esophagitis K21.9 Active [id number] ALLERGIES No Information ENCOUNTERS Encounter Location Date Diagnosis [facility] [address] [facility] [id number] [address] Aug, Haemophilus influenzae infection A49.2 [facility] [address] [address] Aug, Cough productive of purulent sputum R05 [facility] [address] [place] [id number] [address] Aug, [facility] [address] [address]- [address] 08 Aug, 2017 Pulmonary congestion R09.89 [place] [id number]- [address] Aug, Severe persistent asthma with exacerbation J45.51 ; Hiatal hernia K44.9 and Gastroesophageal reflux disease without esophagitis K21.[address] [address]- [address] Aug, Other elevated white blood cell (WBC) count D72.[address] [address]00- 5058 Aug, Uncomplicated severe persistent asthma J45.[address] [address]235- 6332 Aug, Pure hypercholesterolemia E78.00 ; Uncomplicated severe persistent asthma J45.50 and Acquired hypothyroidism E03.[address] 44342- 4188 20 Aug, 2017 Acquired hypothyroidism E03.9 ; Pure hypercholesterolemia E78.00 and Uncomplicated severe persistent asthma J45.[address] 95768- 6656 15 Aug, 2017 Allergic rhinitis due to pollen J30.[address] [address]- 1913 Aug, Allergic rhinitis due to pollen J30.1 [place] [address] [address]- 2398 Aug, [place] [address] [id number] Jul, Pharyngitis, unspecified etiology J02.9 and Lymphadenopathy R59.[address] 10531- 3305 Jul, ADD (attention deficit disorder) F90.0 [place] [id number] [place] [address] 67857- 8931 Jul, Allergic rhinitis due to pollen J30.1 [place] [address] 63731- 6374 Jul, Dental examination Z01.20 [place] [address] 72015- 5171 Jun, Cough productive of purulent sputum R05 [place] [address] 28199- 7782 Jun, Allergic rhinitis due to pollen J30.1 [place] [address] 81070- 4592 Jun, [place] [address] 27713- 4580 Jun, Allergic rhinitis due to pollen J30.1 [place] [address] 21027- 3162 Jun, Allergic rhinitis due to pollen J30.1 [place] [address] [place] [id number] [place] [address] 41600- 8945 May, Allergic rhinitis due to pollen J30.1 [place] [address] [place] [id number] [place] [address] 29780- 5190 May, Pneumonia due to Haemophilus influenzae, unspecified laterality, unspecified part of lung J14 [place] [address] [place] [id number] [place] [address] 44893- 0638 May, Allergic rhinitis due to pollen J30.1 [place] [address] [place] [id number] [place] [address] 22210- 4049 May, Other adverse food reactions, not elsewhere classified, initial encounter T78.1XXA and Pneumonia due to Haemophilus influenzae, unspecified laterality, unspecified part of lung J14 [place] [address] [place] [id number] [place] [address] 13084- 1668 May, Pneumonia due to Haemophilus influenzae, unspecified laterality, unspecified part of lung J14 [place] [address] [place] [id number] [place] [address] 48789- 9068 May, Multiple food allergies Z91.018 ; Uncomplicated severe persistent asthma J45.50 ; Cough productive of purulent sputum R05 and Uses central nervous system stimulants F15.90 [place] [address] [place] [id number] [place] [address] 25380- 1583 Apr, Allergic rhinitis due to pollen J30.1 [place] [address] [place] [id number] [place] [address] 13197- 5747 Apr, Allergic rhinitis due to pollen J30.1 [place] [address] 58340- 4542 Apr, Allergic rhinitis due to pollen J30.1 [place] [address] 70428- 1348 Apr, ADD (attention deficit disorder) F90.0 [place] [address] 94756- 4848 28 Mar, 2017 Allergic rhinitis due to pollen J30.1 [place] [address] [place] [id number] [place] [address] 92762- 4312 21 Mar, 2017 Encounter for immunization Z23 [place] [address] [place] [id number] [place] [address] 47378- 4798 19 Mar, 2017 [place] [address] [place] [id number] [place] [address] 17539- 0024 14 Mar, 2017 Allergic rhinitis due to pollen J30.1 [place] [address] [place] [id number] [place] [address] 06586- 2928 07 Mar, 2017 Allergic rhinitis due to pollen J30.1 [place] [address] [place] [id number] [place] [address] 95211- 1095 16 Jan, 2017 Allergic rhinitis due to pollen J30.1 [place] [address] 65658- 2521 Jan, Allergic rhinitis due to pollen J30.1 [place] [address] [place] [address] 62994- 5568 Dec, Uncomplicated severe persistent asthma J45.50 [place] [address] [place] [id number] [place] [address] 68795- 1406 Dec, Allergic rhinitis due to pollen J30.1 [place] [address] [place] [id number] [place] [address] 29250- 0184 Dec, Allergic rhinitis due to pollen J30.1 [place] [address] [place] [id number] [place] [address] 21727- 2363 Dec, Allergic rhinitis due to pollen J30.1 [place] [address] [place] [id number] [place] [address] 95689- 8000 Dec, ADD (attention deficit disorder) F90.0 [place] [address] [place] [id number] [place] [address] 49711- 1544 Dec, Allergic rhinitis due to pollen J30.1 [place] [address] [place] [id number] [place] [address] 09212- 7423 Dec, Screening for tuberculosis Z11.1 and Visit for TB skin test Z11.1 [place] [address] [place] [id number] [place] [address] 56872- 8445 Dec, Uncomplicated severe persistent asthma J45.50 ; Palpitations R00.2 ; Pericardial effusion (noninflammatory) I31.3 and Chest discomfort R07.89 [place] [address] [place] [address] 69763- 9725 Dec, Allergic rhinitis due to pollen J30.1 [place] [address] [place] [id number] [place] [address] 19378- 6084 Dec, Chronic cough R05 [place] [address] [place] [id number] [place] [address] 31665- 0159 Dec, [place] [address] [place] [id number] [place] [address] 86643- 4482 15 Dec, 2016 Allergic rhinitis due to pollen J30.1 [place] [address] [place] [id number] [place] [address] 52220- 8831 Dec, Allergic rhinitis due to pollen J30.1 [place] [address] [place] [id number] [place] [address] 49301- 1768 Dec, Chronic cough R05 [place] [address] 52867- 9439 October, Allergic rhinitis due to pollen J30.1 [place] [address] 91281- 7670 October, Allergic rhinitis due to pollen J30.1 [place] [address] [place] [id number] [place] [address] 46331- 5497 October, [place] [address] 49254- 7061 October, Asthma exacerbation J45.901 [place] [address] [place] [id number] [place] [address] 70442- 2061 October, Asthma exacerbation J45.901 and Current chronic use of inhaled steroid Z79.51 [place] [address] [place] [address] [place] [address] 49322- 7207 October, Uncomplicated severe persistent asthma J45.50 [place] [address] [place] [id number] [place] [address] 28187- 4919 October, Allergic rhinitis due to pollen J30.1 [place] [address] [place] [id number] [place] [address] 34416- 2137 Oct, [place] [address] [place] [address] [place] [address] 50858- 7379 Oct, Asthma exacerbation J45.901 and Sputum production R05 [place] [address] [place] [address] [place] [address] 95043- 0470 Oct, Asthma exacerbation J45.901 [place] [address] [place] [id number] [place] [address] 85320- 2902 Oct, ADD (attention deficit disorder) F90.0 [place] [address] [place] [id number] [place] [address] 41642- 3547 Oct, ADD (attention deficit disorder) F90.0 [place] [address] 12155- 6785 Aug, Allergic rhinitis due to pollen J30.1 [place] [address] 72446- 0903 Aug, Atypical pneumonia J18.9 [place] [address] 94065- 6608 Aug, Allergic rhinitis due to pollen J30.1 [place] [address] 45794- 3831 Aug, Acquired hypothyroidism E03.9 [place] [address] 22567- 2261 Aug, Multiple food allergies Z91.018 ; Elevated blood pressure reading R03.0 and Anaphylaxis, subsequent encounter T78.2XXD [place] [address] [place] [id number] [place] [address] [id number] Aug, [place] [address] 77469- 2061 Aug, Anaphylaxis, initial encounter T78.2XXA [address] 81317- 7074 Aug, Allergic rhinitis due to pollen J30.1 [place] [address] [place] [id number] [place] [address] 48657- 1294 Aug, Dental examination Z01.[address] 37480- 8683 Aug, Allergic rhinitis due to pollen J30.1 [facility] [address] [place] [address] 27768- 8568 06 Aug, 2016 Acquired hypothyroidism E03.9 and Pure hypercholesterolemia E78.00 [facility] [address] [place] [id number] [place] [address] 54892- 9916 Aug, ADD (attention deficit disorder) F90.0 ; Acquired hypothyroidism E03.9 and Pure hypercholesterolemia E78.00 [facility] [address] [place] [address] [place] [address] 13226- 4856 Aug, Asthma exacerbation J45.901 [place] [address] 14203- 8326 Jul, Allergic rhinitis due to pollen J30.1 [facility] [address] [place] [id number] [place] [address] 00039- 4405 Jul, Allergic rhinitis due to pollen J30.1 [facility] [address] [place] [id number] [place] [address] 11220- 1637 Jul, [facility] [address] [place] [address] [place] [address] 89144- 3248 Jul, Allergic rhinitis due to pollen J30.1 [facility] [address] [place] [address] [place] [address] 94254- 4620 Jul, Other senior care (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 and ADD ( attention deficit disorder) F90.0 [facility] [address] [place] [address] 93566- 7014 Jul, Other long term care social worker (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 and ADD ( attention deficit disorder) F90.0 [facility] [address] [place] [address] [place] [address] 64281- 7797 Jul, [facility] [address] [place] [address] [place] [address] 57077- 0617 Jun, Allergic rhinitis due to pollen J30.1 [facility] [address] [place] [id number] [place] [address] 73068- 9065 Jun, Allergic rhinitis due to pollen J30.1 [facility] [address] [place] [id number] [place] [address] 41000- 1524 Jun, [place] [address] [place] [address] [place] [address] 12950- 9090 May, Allergic rhinitis due to pollen J30.1 [facility] [address] [place] [address] [place] [address] 15559- 8651 May, Allergic rhinitis due to pollen J30.1 [place] [address] [place] [address] [place] [address] 77092- 5483 Apr, Allergic rhinitis due to pollen J30.1 [place] [address] [place] [address] [place] [address] 57539- 3954 Apr, Allergic rhinitis due to pollen J30.1 [place] [address] 55263- 8426 Apr, Encounter for immunization Z23 [place] [address] 85717- 9230 Apr, [place] [address] [place] [address] [place] [address] 64447- 1918 Mar, Allergic rhinitis due to pollen J30.1 [place] [address] [place] [address] [place] [address] 59454- 8671 Mar, Multiple allergies Z88.9 [place] [address] [place] [address] [place] [address] 75909- 8075 Mar, Candidal vaginitis B37.3 [place] [address] [place] [address] [place] [address] 27609- 5655 08 Mar, 2016 Allergic rhinitis due to pollen J30.1 [place] [address] [place] [address] [place] [address] 01415- 3391 Jan, Asthma exacerbation J45.901 ; Fatigue, unspecified type R53.83 and Community acquired pneumonia J18.9 [facility] [address] [id number] Jan, Encounter for dental examination Z01.20 [facility] [address] [address] Jan, Allergic rhinitis due to pollen J30.1 [facility] [address] [place] [address] 47564- 9389 Dec, Allergic rhinitis due to pollen J30.1 [facility] [address] [address]- 9574 Dec, [facility] [address] [place] [id number] [place] [address] 81841- 1253 Dec, Allergic rhinitis due to pollen J30.1 [facility] [address] [address]- 6072 Dec, [facility] [address] [address]- 8785 Dec, [facility] [address] [place] [address] 68039- 3041 Dec, [facility] [address] [address]- 5838 Dec, Allergic rhinitis due to pollen J30.1 [facility] [address] [address]- 0156 Dec, [facility] [address] [address]- 1185 Dec, [facility] [address] [place] [address] [place] [address] 51352- 6774 Dec, Allergic rhinitis due to pollen J30.1 [facility] [address] [address]- 5166 October, Allergic rhinitis due to pollen J30.1 [facility] [address] [place] [address] [address]- 1575 October, Allergic rhinitis due to pollen J30.1 [facility] [address] [place] [id number] [place] [address] 25611- 7665 October, [facility] [address] [place] [address] [place] [address] 24216- 7010 October, [place] [address] [place] [address] [place] [address] 46119- 7270 October, ADD (attention deficit disorder) F90.0 ; Major depressive disorder, recurrent episode, mild F33.0 and Uncomplicated severe persistent asthma J45.50 [place] [address] [place] [address] [place] [address] 50746- 9191 Oct, Allergic rhinitis due to pollen J30.1 [place] [address] [place] [address] [place] [address] 55145- 3978 Oct, ADD (attention deficit disorder) F90.0 [place] [address] [place] [address] [place] [address] 33603- 8704 Oct, Allergic rhinitis due to pollen 477.0 [place] [address] [place] [address] [place] [address] 04486- 4514 Aug, Allergic rhinitis due to pollen 477.0 [place] [address] [place] [address] 64723- 1527 Aug, 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 [place] [address] [place] [address] [place] [address] 71534- 6389 Aug, [place] [address] [place] [address] [place] [address] 08825- 6835 Aug, Allergic rhinitis due to pollen 477.0 [place] [address] [place] [address] 60705- 2421 Aug, Allergic rhinitis due to pollen 477.0 [place] [address] [place] [address] [place] [address] 63086- 4454 Aug, Allergic rhinitis due to pollen 477.0 [facility] [address] [place] [address] 68741- 4727 Aug, Exposure to influenza Z20.828 [facility] [address] [place] [address] [id number] 19 Aug, 2015 Encounter for dental examination and cleaning without abnormal findings Z01.20 [place] [address] [place] [address] [place] [address] 38186- 2070 Aug, Allergic rhinitis due to pollen J30.1 [place] [address] 12294- 5872 Aug, [place] [address] 37857- 4195 Aug, 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 [place] [address] 64332- 3963 Jul, [place] [address] 14469- 6766 Jul, Allergic rhinitis due to pollen 477.0 [place] [address] [place] [address] [place] [address] 79106- 4099 Jul, [place] [address] [place] [address] [place] [address] 65208- 6892 Jul, Allergic rhinitis due to pollen 477.0 [place] [address] [place] [address] [place] [address] 34967- 0870 Jun, ADD (attention deficit disorder) F90.0 ; Acquired hypothyroidism E03.9 ; PCOS (polycystic ovarian syndrome) E28.2 ; Polyarthralgia M25.50 and On stimulant medication Z79.899 [place] [address] [place] [address] [place] [address] 38129- 5265 16 Apr, 2015 Encounter for immunization Z23 [place] [address] 44598- 0255 16 Mar, 2015 Allergic rhinitis due to pollen 477.0 [facility] [address] [place] [address] 55767- 7091 Mar, Influenza vaccine administered V04.81 [facility] [address] [place] [address] 59553- 2434 Mar, [facility] [address] [place] [address] [place] [address] 64420- 2735 Jan, Allergic rhinitis due to pollen 477.0 [facility] [address] [place] [id number] [place] [address] 22631- 4925 Jan, Allergic rhinitis due to pollen 477.0 [facility] [address] [place] [id number] [place] [address] 78997- 4621 Jan, Allergic rhinitis due to pollen 477.0 [facility] [address] [place] [id number] [place] [address] [id number] Jan, Dental examination V72.2 [facility] [address] [place] [id number] [place] [address] 32374- 1353 Dec, Allergic rhinitis due to pollen 477.0 [facility] [address] [place] [address] 65818- 3047 October, [facility] [address] [place] [address] 78863- 4571 Oct, [facility] [address] [place] [id number] [place] [address] 81513- 1217 Oct, [facility] [address] [place] [address] 13428- 1609 Aug, [facility] [address] [place] [id number] [place] [address] 35607- 8577 Aug, [facility] [address] [address]- 2626 Aug, [facility] [address] [place] [id number] [place] [address]- 4248 Aug, [facility] [place] [facility] [address] [id number] [place] [address]- 6223 Aug, [facility] [place] [facility] [address] [id number] [place] [address]- 1710 Aug, [facility] [place] [facility] [address] [id number] [place] [address]- 2896 Aug, [facility] [place] [facility] [address] [id number] [place] [address]- 8304 Aug, [facility] [place] [facility] [address] [id number] [place] [address]- 2683 Jul, [facility] [place] [facility] [address] [id number] [place] [address]- 6983 Jul, [facility] [place] [facility] [address] [facility] [id number] [place] [address]- 5286 Jul, [facility] [place] [facility] [address] [id number] [place] [address]- 5693 Jul, [facility] [place] [facility] [address] [facility] [id number] [place] [address] Jul, [facility] [place] [facility] [address] [facility] [id number] [place] [address] Jul, [facility] [place] [facility] [address] [id number] [place] [address] Jul, [facility] [place] [facility] [address] [id number] [place] [address] Jul, [facility] [place] [facility] [address] [id number] [place] [address] Jul, [facility] [place] [facility] [address] [id number] [place] [address] Jul, [facility] [place] [facility] [address] [id number] [place] [address] Jul, [facility] [place] [facility] [address] [id number] [place] [address] Jun, [facility] [place] [facility] [address] [id number] [place] [address] Jun, [facility] [place] [facility] [address] [id number] [place] [address] Jun, [facility] [place] [facility] [address] [id number] [place] [address] Jun, [facility] [place] [facility] [address] [id number] [place] [address] Jun, [facility] [place] [facility] [address] [id number] [place] [address] Jun, [facility] [place] [facility] [address] [id number] [place] [address] May, [facility] [place] [facility] [address] [id number] [place] [address] May, [facility] [place] [facility] [address] [id number] [place] [address] May, [facility] [place] [facility] [address] [id number] [place] [address] May, [facility] [place] [facility] [address] [id number] [address] May, [facility] [place] [facility] [address] [id number] [place] [address] May, [facility] [place] [facility] [address] [id number] [place] [address] Apr, [facility] [place] [facility] [address] [id number] [place] [address] Apr, [facility] [place] [facility] [address] [id number] [place] [address] Mar, [facility] [place] [facility] [address] [id number] [address] Mar, [facility] [place] [facility] [address] [id number] [place] [address] Mar, [facility] [place] [facility] [address] [id number] [place] [address] Mar, [facility] [place] [facility] [address] [id number] [place] [address] Mar, [facility] [place] [facility] [address] [id number] [place] [address] Mar, [facility] [place] [facility] [address] [id number] [place] [address] Jan, [facility] [place] [facility] [address] [id number] [place] [address]93 Jan, [facility] [place] [facility] [address] [id number] [place] [address] 1967 Jan, [facility] [place] [facility] [address] [id number] [place] [address]- [address] Jan, [facility] [place] [facility] [address] [id number] [place] [address]- 7[address] Jan, [facility] [place] [facility] [address] [id number] [place] [address]658 Jan, [facility] [place] [facility] [address] [id number] [place] [address]472 Dec, [facility] [place] [facility] [address] [id number] [place] [address]- 8205 Dec, [facility] [place] [facility] [address] [id number] [place] [address]- 7889 Dec, [facility] [place] [facility] [address] [id number] [place] [address]- 5797 Dec, [facility] [place] [facility] [address] [id number] [place] [address]80 Dec, [facility] [place] [facility] [address] [id number] [place] [address]- 5764 Dec, [facility] [place] [facility] [address] [id number] [place] [address]- 9855 Dec, [facility] [place] [facility] [address] [id number] [place] [address]- [address] Dec, [facility] [place] [facility] [address] [id number] [place] [address]- 8047 Dec, [facility] [place] [facility] [address] [id number] [place] [address]376 Dec, [facility] [place] [facility] [address] [id number] [place] [address]- 5945 Dec, [facility] [place] [facility] [address] [id number] [place] [address]- 8154 Dec, [facility] [place] [facility] [address] [id number] [place] [address]- 3593 Dec, [facility] [place] [facility] [address] [id number] [place] [address]- [address]404 Dec, [facility] [place] [facility] [address] [id number] [place] [address]- 3578 Dec, [facility] [place] [facility] [address] [id number] [place] [address]- 4440 Dec, [facility] [place] [facility] [address] [id number] [place] [address]- 1349 October, [facility] [place] [facility] [address] [id number] [place] [address]- 5741 October, [facility] [place] [facility] [address] [id number] [place] [address]- 2212 October, [facility] [place] [facility] [address] [id number] [place] [address]- 5235 October, [facility] [place] [facility] [address] [id number] [place] [address]- 6537 October, [facility] [place] [facility] [address] [id number] [place] [address]- 5334 October, [facility] [place] [facility] [address] [id number] [place] [address]- 5778 Oct, [facility] [place] [facility] [address] [id number] [place] [address]- 7571 Oct, [facility] [place] [facility] [address] [id number] [place] [address] 9452 Oct, [facility] [place] [facility] [address] [id number] [place] [address] 4000 Oct, [facility] [place] [facility] [address] [id number] [place] [address]- 9972 Oct, [facility] [place] [facility] [address] [id number] [place] [address]- 0260 Oct, [facility] [place] [facility] [address] [id number] [place] [address]- 8235 Aug, [facility] [place] [facility] [address] [id number] [place] [address]- 6492 Aug, [facility] [place] [facility] [address] [id number] [place] [address]- 5690 Aug, [facility] [place] [facility] [address] [id number] [place] [address]- 1048 Aug, [facility] [place] [facility] [address] [id number] [place] [address] Jul, [facility] [place] [facility] [address] [id number] [place] [address]- 0255 Jul, [facility] [place] [facility] [address] [id number] [place] [address]- 6206 Jul, [facility] [place] [facility] [address] [id number] [place] [address]- 5578 Jul, [facility] [place] [facility] [address] [id number] [place] [address]- 6212 Jun, [facility] [address] [id number] [place] [address]- 4434 Jun, [facility] [place] [facility] [address] [id number] [place] [address] Jun, [facility] [address] [id number] [place] [address]- 2798 Jun, [facility] [place] [facility] [address] [id number] [place] [address]- 1415 Jun, [facility] [address] [id number] [place] [address]- 8109 Jun, [facility] [address] [id number] [place] [address]- 8081 Jun, [facility] [address] [id number] [place] [address] Jun, [facility] [address] [id number] [place] [address]- 8922 Jun, [facility] [place] [facility] [address] [id number] [place] [address]- 0615 Jun, [facility] [address] [facility] [id number] [place] [address]- [address]139 04 Jun, 2013 [facility] [place] [facility] [address] [id number] [place] [address]- 4124 May, [facility] [place] [facility] [address] [id number] [place] [address]- 7105 May, [facility] [place] [facility] [address] [id number] [place] [address]- 8123 May, [facility] [place] [facility] [address] [id number] [place] [address] May, [facility] [place] [facility] [address] [id number] [place] [address]- 7800 May, [facility] [place] [facility] [address] [id number] [place] [address]- 6729 May, [facility] [place] [facility] [address] [id number] [place] [address] May, [facility] [place] [facility] [address] [id number] [place] [address]- 9753 Apr, [facility] [place] [facility] [address] [id number] [place] [address]- 3776 Apr, [facility] [place] [facility] [address] [id number] [place] [address]- 4186 Apr, [facility] [place] [facility] [address] [id number] [place] [address]- 2292 Apr, [facility] [place] [facility] [address] [id number] [place] [address]- 4857 27 Mar, 2013 [facility] [place] [facility] [address] [id number] [place] [address]- 5067 Mar, [facility] [place] [facility] [address] [id number] [place] [address]- 5702 Mar, [facility] [place] [facility] [address] [id number] [place] [address]- 7774 23 Mar, 2013 [facility] [place] [facility] [address] [id number] [place] [address]- 9124 Mar, [facility] [place] [facility] [address] [id number] [place] [address]- 3606 Mar, [facility] [place] [facility] [address] [id number] [place] [address]- 7688 Jan, [facility] [place] [facility] [address] [id number] [place] [address]- 2215 Jan, [facility] [place] [facility] [address] [id number] [place] [address]- 9636 Jan, [facility] [place] [facility] [address] [id number] [place] [address]- 9106 Jan, [facility] [address] [id number] [place] [address] Jan, [facility] [place] [facility] [address] [id number] [place] [address]- 9806 Dec, [facility] [place] [facility] [address] [id number] [place] [address]- 3123 Dec, [facility] [place] [facility] [address] [id number] [place] [address]- 2342 Dec, [facility] [place] [facility] [address] [id number] [place] [address] Dec, [facility] [place] [facility] [address] [id number] [place] [address]- 5441 Dec, [facility] [place] [facility] [address] [id number] [place] [address]- 0500 Dec, [facility] [place] [facility] [address] [id number] [place] [address]- 3642 Dec, [facility] [place] [facility] [address] [id number] [place] [address]- 4176 Dec, [facility] [place] [facility] [address] [id number] [place] [address]- 1665 October, [facility] [place] [facility] [address] [id number] [place] [address]- 5342 October, [facility] [place] [facility] [address] [id number] [place] [address]- 4302 October, [facility] [place] [facility] [address] [id number] [place] [address] 24 Oct, 2012 [facility] [place] [facility] [address] [id number] [place] [address] Oct, [facility] [place] [facility] [address] [id number] [place] [address] 17 Oct, 2012 [facility] [place] [facility] [address] [id number] [place] [address]- 8304 Oct, [facility] [place] [facility] [address] [id number] [place] [address]- 1644 Aug, [facility] [place] [facility] [address] [id number] [place] [address]- 1516 Aug, [facility] [place] [facility] [address] [id number] [place] [address]- 6145 Aug, [facility] [place] [facility] [address] [id number] [place] [address]- 9468 Jul, [facility] [place] [facility] [address] [id number] [place] [address]- 8680 May, [facility] [place] [facility] [address] [id number] [place] [address]- 1470 May, [facility] [place] [facility] [address] [id number] [place] [address]- 8775 Apr, [facility] [address] [id number] [place] [address]- 2285 Apr, [facility] [place] [facility] [address] [id number] [place] [address]- 6088 Apr, [facility] [address] [id number] [place] [address]- 2153 Apr, [facility] [place] [facility] [address] [id number] [place] [address]- 4658 Apr, [facility] [place] [facility] [address] [id number] [place] [address]- 8996 Apr, [facility] [place] [facility] [address] [id number] [place] [address] Apr, [facility] [place] [facility] [address] [id number] [place] [address]- 0611 Apr, [facility] [place] [facility] [address] [id number] [place] [address]- 8219 Apr, [facility] [place] [facility] [address] [id number] [place] [address]- 8425 Apr, [facility] [place] [facility] [address] [id number] [place] [address]- 0211 Apr, [facility] [place] [facility] [address] [id number] [place] [address]- 5745 Apr, [facility] [place] [facility] [address] [id number] [place] [address]- 7139 Mar, [facility] [place] [facility] [address] [id number] [place] [address]- 6974 Jan, [facility] [place] [facility] [address] [id number] [place] [address]- 2306 Dec, [facility] [place] [facility] [address] [id number] [place] [address]- 9642 October, [facility] [place] [facility] [address] [id number] [place] [address]- 9297 Oct, [facility] [place] [facility] [address] [id number] [place] [address]- 8400 Oct, [facility] [place] [facility] [address] [id number] [place] [address]- 1814 Oct, [facility] [place] [facility] [address] [id number] [place] [address]- 8759 Aug, [facility] [place] [facility] [address] [id number] [place] [address]- 9211 Aug, [facility] [place] [facility] [address] [id number] [place] [address]- 8977 Aug, [facility] [place] [facility] [address] [id number] [place] [address]- 2216 16 Aug, 2011 [facility] [place] [facility] [address] [id number] [place] [address]- 3097 15 Aug, 2011 [facility] [place] [facility] [address] [id number] [address]- 3983 02 Aug, 2011 [facility] [id number] [address] Jun, [facility] [id number] [address]77 Apr, [facility] [id number] [address] Jun, [facility] [id number] [address]- 4740 Jun, [facility] [id number] [address]65 May, [facility] [id number] [address]- 2544 May, [facility] [id number] [address]- 4959 15 Apr, 2009 [facility] [id number] [address]- 9512 13 Apr, 2009 IMMUNIZATIONS No Known Immunizations SOCIAL HISTORY Never Assessed REASON FOR VISIT Pulm recommendations PLAN OF CARE VITAL SIGNS MEDICATIONS Unknown [...] see above surgeries Hospitalization History Anaphylactic shock-[facility] 08/23/16
--- OUTSIDE RECORDS SUMMARY | 2018-07-18 07:36 | XMS REPORT ---
Author Author BRANDY SAGAR [facility] Address [address] [place] [address] Care Team Providers Care Confectionery Maker Name Role Phone SAGAR NAVA Unavailable PROBLEMS Type Condition ICD9-CM Code YTR80-PP Code Onset Dates Condition Status SNOMED Code Problem Migraine with aura and without status migrainosus, not intractable G43.109 Active 4558416 Problem PCOS (polycystic ovarian syndrome) E28.2 Active 74103493 Problem Uncomplicated severe persistent asthma J45.50 Active 711364670 Problem Severe persistent asthma with exacerbation J45.51 Active 694597784 Problem Other elevated white blood cell (WBC) count D72.828 Active 462285391 Problem Multiple food allergies Z91.018 Active 712882950 Problem Pure hypercholesterolemia E78.00 Active 829153383 Problem Current chronic use of inhaled steroid Z79.51 Active 939259333 Problem Asthma exacerbation J45.901 Active 430499027 Problem ADD (attention deficit disorder) F90.0 Active 556725677 Problem Allergic rhinitis due to pollen J30.1 Active 00944092 Problem Vitamin D deficiency E55.9 Active 19937021 Problem Major depressive disorder, recurrent episode, mild F33.0 Active 765045718 Problem Acquired hypothyroidism E03.9 Active 940803666 Problem Gastroesophageal reflux disease without esophagitis K21.9 Active 313047081 ALLERGIES No Information ENCOUNTERS Encounter Location Date Diagnosis [facility] [id number] [address] Dec, [facility] [address] [address] Oct, [facility] [address] [address] Oct, Allergic rhinitis due to pollen J30.1 [facility] [id number] [place] [address] 46016- 4784 Oct, [place] [id number] [place] [address] 56416- 6403 Oct, Allergic rhinitis due to pollen J30.1 [place] [address] 77243- 9427 13 Oct, 2017 Severe persistent asthma with exacerbation J45.51 and Pneumonia due to Haemophilus influenzae, unspecified laterality, unspecified part of lung J14 [place] [id number] [place] [address] 81838- 1112 Oct, ADD (attention deficit disorder) F90.[address] 54790- 7328 Aug, Haemophilus influenzae infection A49.[address] 46424- 6381 Aug, Cough productive of purulent sputum R05 [place] [address] 97256- 0592 Aug, [address] 13910- 6620 Aug, Pulmonary congestion R09.[address] 24671- 4817 Aug, Severe persistent asthma with exacerbation J45.51 ; Hiatal hernia K44.9 and Gastroesophageal reflux disease without esophagitis K21.9 [place] [id number] [place] [address] 86351- 2543 Aug, Other elevated white blood cell (WBC) count D72.[address] 32200- 6951 Aug, Uncomplicated severe persistent asthma J45.[address] 77399- 1278 Aug, Pure hypercholesterolemia E78.00 ; Uncomplicated severe persistent asthma J45.50 and Acquired hypothyroidism E03.9 [facility] [address] 58950- 3945 Aug, Acquired hypothyroidism E03.9 ; Pure hypercholesterolemia E78.00 and Uncomplicated severe persistent asthma J45.50 [place] [address] 77213- 7542 15 Aug, 2017 Allergic rhinitis due to pollen J30.1 [place] [address] 27292- 6840 Aug, Allergic rhinitis due to pollen J30.1 [place] [address] 85132- 8520 Aug, [place] [address] [id number] Jul, Pharyngitis, unspecified etiology J02.9 and Lymphadenopathy R59.1 [place] [address] 76705- 5799 Jul, ADD (attention deficit disorder) F90.[address] 40939- 3671 Jul, Allergic rhinitis due to pollen J30.1 [place] [address] 52924- 4196 Jul, Dental examination Z01.20 [place] [address] 51236- 7154 Jun, Cough productive of purulent sputum R05 [address] [address] 98576- 3588 Jun, Allergic rhinitis due to pollen J30.1 [place] [address] 27234- 9373 Jun, [place] [address] 00099- 1168 Jun, Allergic rhinitis due to pollen J30.1 [place] [address] [address] 7989 Jun, Allergic rhinitis due to pollen J30.1 [place] [id number] [place] [address] 14774- 8462 May, Allergic rhinitis due to pollen J30.1 [place] [id number] [place] [address] 35847- 1382 May, Pneumonia due to Haemophilus influenzae, unspecified laterality, unspecified part of lung J14 [place] [id number] [place] [address] 66171- 9523 May, Allergic rhinitis due to pollen J30.1 [place] [id number] [place] [address] 69700- 2721 May, Other adverse food reactions, not elsewhere classified, initial encounter T78.1XXA and Pneumonia due to Haemophilus influenzae, unspecified laterality, unspecified part of lung J14 [place] [id number] [place] [address] 53578- 5453 May, Pneumonia due to Haemophilus influenzae, unspecified laterality, unspecified part of lung J14 [place] [id number] [place] [address] 39858- 7544 May, Multiple food allergies Z91.018 ; Uncomplicated severe persistent asthma J45.50 ; Cough productive of purulent sputum R05 and Uses central nervous system stimulants F15.90 [place] [address] [place] [address] 54562- 2580 Apr, Allergic rhinitis due to pollen J30.1 [place] [id number] [place] [address] 84077- 9896 Apr, Allergic rhinitis due to pollen J30.1 [place] [id number] [place] [address] 21524- 2785 Apr, Allergic rhinitis due to pollen J30.1 [place] [id number] [place] [address] 73015- 9441 Apr, ADD (attention deficit disorder) F90.0 [place] [address] 36343- 8379 28 Mar, 2017 Allergic rhinitis due to pollen J30.1 [place] [address] 02506- 2529 21 Mar, 2017 Encounter for immunization Z23 [place] [address] 91030- 1488 19 Mar, 2017 [place] [address] 32567- 0087 14 Mar, 2017 Allergic rhinitis due to pollen J30.1 [place] [address] 01393- 0073 07 Mar, 2017 Allergic rhinitis due to pollen J30.1 [place] [address] 10092- 6403 Jan, Allergic rhinitis due to pollen J30.1 [place] [id number] [place] [address] 11469- 5533 Jan, Allergic rhinitis due to pollen J30.1 [place] [id number] [place] [address] 63675- 9970 Dec, Uncomplicated severe persistent asthma J45.50 [place] [id number] [place] [address] 61088- 7001 Dec, Allergic rhinitis due to pollen J30.1 [place] [id number] [place] [address] 64253- 6501 Dec, Allergic rhinitis due to pollen J30.1 [place] [id number] [place] [address] 04650- 4306 Dec, Allergic rhinitis due to pollen J30.1 [place] [id number] [place] [address] 88009- 5533 13 David, 2017 ADD (attention deficit disorder) F90.0 [place] [id number] [place] [address] 27649- 3594 Dec, Allergic rhinitis due to pollen J30.1 [place] [id number] [place] [address] 05876- 1319 Dec, Visit for TB skin test Z11.1 and Screening for tuberculosis Z11.1 [place] [address] 42310- 1440 Dec, Uncomplicated severe persistent asthma J45.50 ; Palpitations R00.2 ; Pericardial effusion (noninflammatory) I31.3 and Chest discomfort R07.89 [place] [id number] [place] [address] 01413- 7333 Dec, Allergic rhinitis due to pollen J30.1 [place] [id number] [place] [address] 52137- 1036 Dec, Chronic cough R05 [place] [id number] [place] [address] 42149- 6914 Dec, [place] [id number] [place] [address] 73167- 8244 Dec, Allergic rhinitis due to pollen J30.1 [place] [id number] [place] [address] 05295- 9963 Dec, Allergic rhinitis due to pollen J30.1 [place] [id number] [place] [address] 70209- 4503 Dec, Chronic cough R05 [place] [id number] [place] [address] 70552- 3000 October, Allergic rhinitis due to pollen J30.1 [place] [id number] [place] [address] 00363- 6306 October, Allergic rhinitis due to pollen J30.1 [place] [id number] [place] [address] 18639- 3418 October, [place] [address] [place] [address] 31221- 5742 October, Asthma exacerbation J45.901 [place] [id number] [place] [address] 21532- 1733 October, Asthma exacerbation J45.901 and Current chronic use of inhaled steroid Z79.51 [place] [address] 69556- 3194 October, Uncomplicated severe persistent asthma J45.50 [place] [id number] [place] [address] 78064- 3758 October, Allergic rhinitis due to pollen J30.1 [place] [id number] [place] [address] 28243- 3293 Oct, [place] [address] 14047- 0846 Oct, Asthma exacerbation J45.901 and Sputum production R05 [place] [id number] [place] [address] 55672- 0796 Oct, Asthma exacerbation J45.901 [place] [id number] [place] [address] 24707- 0468 Oct, ADD (attention deficit disorder) F90.0 [place] [id number] [place] [address] 20405- 2923 Oct, ADD (attention deficit disorder) F90.0 [place] [id number] [place] [address] 04039- 8002 Aug, Allergic rhinitis due to pollen J30.1 [place] [id number] [place] [address] 33759- 9645 Aug, Atypical pneumonia J18.9 [place] [id number] [place] [address] 54203- 5873 Aug, Allergic rhinitis due to pollen J30.1 [place] [address] 27274- 4422 Aug, Acquired hypothyroidism E03.9 [place] [address] 57628- 8776 Aug, Multiple food allergies Z91.018 ; Elevated blood pressure reading R03.0 and Anaphylaxis, subsequent encounter T78.2XXD [address] [id number] Aug, [place] [address] 17551- 1750 Aug, Anaphylaxis, initial encounter T78.2XXA [address] 62100- 9786 Aug, Allergic rhinitis due to pollen J30.[address] 90077- 4688 Aug, Dental examination Z01.20 [place] [address] 05266- 4469 Aug, Allergic rhinitis due to pollen J30.1 [place] [address] 84992- 0487 Aug, Acquired hypothyroidism E03.9 and Pure hypercholesterolemia E78.[address] 57596- 3560 Aug, ADD (attention deficit disorder) F90.0 ; Acquired hypothyroidism E03.9 and Pure hypercholesterolemia E78.00 [address] [place] [address] 22260- 2190 Aug, Asthma exacerbation J45.901 [address] [place] 72565- 3571 Jul, Allergic rhinitis due to pollen J30.1 [place] [address] 22332- 1161 Jul, Allergic rhinitis due to pollen J30.1 [facility] [address] [address]- 9646 Jul, [facility] [id number] [place] [address] 00648- 1025 Jul, Allergic rhinitis due to pollen J30.1 [facility] [id number] [place] [address] 16358- 6207 Jul, Other senior living (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 and ADD ( attention deficit disorder) F90.0 [facility] [id number] [place] [address] 72388- 8247 Jul, Other senior living (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 and ADD ( attention deficit disorder) F90.0 [place] [id number] [place] [address] 12477- 8487 Jul, [facility] [id number] [place] [address] 50120- 0265 Jun, Allergic rhinitis due to pollen J30.1 [facility] [id number] [place] [address] 98432- 5078 Jun, Allergic rhinitis due to pollen J30.1 [facility] [address] [place] [address] 12555- 5202 Jun, [facility] [id number] [place] [address] 56980- 5975 May, Allergic rhinitis due to pollen J30.1 [facility] [address], [place] [address]- 4359 May, Allergic rhinitis due to pollen J30.1 [facility] [id number] [place] [address] 68275- 7396 Apr, Allergic rhinitis due to pollen J30.1 [facility] [address] [place] [address] 70753- 5485 Apr, Allergic rhinitis due to pollen J30.1 [facility] [address] [place] [address] 46867- 7679 Apr, Encounter for immunization Z23 [facility] [id number] [place] [address] 77562- 4960 Apr, [facility] [id number] [place] [address] 18356- 0856 Mar, Allergic rhinitis due to pollen J30.1 [facility] [id number] [place] [address] 66946- 9199 Mar, Multiple allergies Z88.9 [place] [id number] [place] [address] 96983- 5134 Mar, Candidal vaginitis B37.3 [place] [id number] [place] [address] 86748- 0726 Mar, Allergic rhinitis due to pollen J30.1 [facility] [id number] [place] [address] 18302- 2448 Jan, Asthma exacerbation J45.901 ; Fatigue, unspecified type R53.83 and Community acquired pneumonia J18.9 [facility] [address] [place] [address] [id number] Jan, Encounter for dental examination Z01.20 [facility] [address] [place] [address] 60354- 3516 Jan, Allergic rhinitis due to pollen J30.1 [facility] [address] [place] [address] 17840- 1299 Dec, Allergic rhinitis due to pollen J30.1 [facility] [id number] [place] [address] 02431- 0819 Dec, [facility] [id number] [place] [address] 42077- 9309 Dec, Allergic rhinitis due to pollen J30.1 [facility] [id number] [address]- 3320 Dec, [facility] [id number] [place] [address] 98099- 6983 Dec, [facility] [address], [place] [address]- 7320 Dec, [facility] [address] [place] [address] 83631- 3815 Dec, Allergic rhinitis due to pollen J30.1 [facility] [address] [place] [address] 73987- 2890 Dec, [facility] [id number] [place] [address] 47925- 6442 Dec, [facility] [id number] [place] [address] 18457- 0488 Dec, Allergic rhinitis due to pollen J30.1 [facility] [id number] [place] [address] 43851- 5050 October, Allergic rhinitis due to pollen J30.1 [facility] [address] [place] [address] 37448- 8572 October, Allergic rhinitis due to pollen J30.1 [facility] [address] [place] [address] 74295- 2709 October, [facility] [address] [place] [address] 06397- 3134 October, [facility] [address] [place] [address] 67287- 2026 October, ADD (attention deficit disorder) F90.0 ; Major depressive disorder, recurrent episode, mild F33.0 and Uncomplicated severe persistent asthma J45.50 [facility] [address] [address]- 0782 Oct, Allergic rhinitis due to pollen J30.1 [facility] [id number] [place] [address] 34051- 2244 Oct, ADD (attention deficit disorder) F90.0 [facility] [id number] [place] [address] 76286- 6013 Oct, Allergic rhinitis due to pollen 477.0 [facility] [id number] [place] [address] 89098- 2636 Aug, Allergic rhinitis due to pollen 477.0 [facility] [id number] [place] [address] 59484- 5399 Aug, 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 [facility] [id number] [place] [address] 14875- 3130 Aug, [facility] [id number] [place] [address] 31550- 3484 Aug, Allergic rhinitis due to pollen 477.0 [place] [id number] [place] [address] 87508- 6332 Aug, Allergic rhinitis due to pollen 477.0 [facility] [id number] [place] [address] 20458- 9643 Aug, Allergic rhinitis due to pollen 477.0 [facility] [id number] [place] [address] 43129- 3358 Aug, Exposure to influenza Z20.828 [facility] [id number] [place] [address] [id number] Aug, Encounter for dental examination and cleaning without abnormal findings Z01.20 [facility] [id number] [place] [address] 50541- 5533 Aug, Allergic rhinitis due to pollen J30.1 [facility] [id number] [place] [address] 14146- 8511 Aug, [facility] [id number] [place] [address] 20590- 8584 Aug, 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 [place] [id number] [place] [address] 47378- 5079 Jul, [place] [address] 71040- 8681 Jul, Allergic rhinitis due to pollen 477.0 [place] [address] 13995- 2643 Jul, [place] [address] 50111- 9406 Jul, Allergic rhinitis due to pollen 477.0 [place] [address] 23347- 6207 Jun, ADD (attention deficit disorder) F90.0 ; Acquired hypothyroidism E03.9 ; PCOS (polycystic ovarian syndrome) E28.2 ; Polyarthralgia M25.50 and On stimulant medication Z79.899 [place] [address] 28055- 3286 Apr, Encounter for immunization Z23 [address] 69390- 2813 16 Mar, 2015 Allergic rhinitis due to pollen 477.0 [place] [id number] [place] [address] 66977- 4285 Mar, Influenza vaccine administered V04.81 [place] [address] 69396- 8689 Mar, [place] [address] 25503- 5380 Jan, Allergic rhinitis due to pollen 477.0 [place] [address] 76029- 5404 Jan, Allergic rhinitis due to pollen 477.0 [place] [address] 73556- 4265 Jan, Allergic rhinitis due to pollen 477.0 [facility] [address] [id number] [id number] 14 Jan, 2015 Dental examination V72.2 [facility] [place] [address] [address]- 0606 Dec, Allergic rhinitis due to pollen 477.0 [facility] [address] [address]- 8801 October, [facility] [address] [address]- 6259 Oct, [facility] [address], [place] [address]- 4328 Oct, [facility] [address] [address]- 3625 Aug, [facility] [address], [place] [address]- 0941 Aug, [facility] [address], [place] [address]- 6265 Aug, [facility] [address] [address]- 4931 Aug, [facility] [address] [address]- 8166 Aug, [facility] [address], [place] [address]- 2510 Aug, [facility] [address], [place] [address]- 3031 Aug, [facility] [address], [place] [address]- 0580 Aug, [facility] [id number] [address] 1350 Jul, [facility] [address] [address]- 1103 Jul, [facility] [place] [facility] [address] [id number] [place] [address]- 7262 10 Jul, 2014 [facility] [place] [facility] [address] [id number] [place] [address]- 9716 Jul, [facility] [place] [facility] [address] [id number] [place] [address]- 5926 Jul, [facility] [place] [facility] [address] [id number] [place] [address]- 5024 Jul, [facility] [place] [facility] [address] [id number] [place] [address]- 1501 Jul, [facility] [place] [facility] [address] [id number] [place] [address]- 9449 Jul, [facility] [place] [facility] [address] [id number] [place] [address]- 6988 Jul, [facility] [place] [facility] [address] [id number] [place] [address]- 5765 Jul, [facility] [place] [facility] [address] [id number] [place] [address] Jul, [facility] [place] [facility] [address] [id number] [place] [address] Jun, [facility] [place] [facility] [address] [id number] [place] [address] Jun, [facility] [place] [facility] [address] [id number] [place] [address] Jun, [facility] [place] [facility] [address] [id number] [place] [address] Jun, [facility] [place] [facility] [address] [id number] [place] [address] Jun, [facility] [place] [facility] [address] [id number] [place] [address] Jun, [facility] [place] [facility] [address] [id number] [place] [address] May, [facility] [place] [facility] [address] [id number] [place] [address] May, [facility] [place] [facility] [address] [id number] [place] [address] May, [facility] [place] [facility] [address] [id number] [place] [address] May, [facility] [place] [facility] [address] [id number] [place] [address] May, [facility] [place] [facility] [address] [id number] [place] [address] May, [facility] [place] [facility] [address] [id number] [place] [address] Apr, [facility] [place] [facility] [address] [id number] [place] [address] Apr, [facility] [place] [facility] [address] [id number] [place] [address] 30 Mar, 2014 [facility] [place] [facility] [address] [id number] [place] [address] 30 Mar, 2014 [facility] [place] [facility] [address] [id number] [place] [address] 30 Mar, 2014 [facility] [place] [facility] [address] [id number] [place] [address] 30 Mar, 2014 [facility] [place] [facility] [address] [id number] [address] Mar, [facility] [place] [facility] [address] [id number] [place] [address] Mar, [facility] [place] [facility] [address] [id number] [place] [address] Jan, [facility] [place] [facility] [address] [id number] [place] [address]- 9634 Jan, [facility] [place] [facility] [address] [id number] [place] [address]- 7205 Jan, [facility] [place] [facility] [address] [id number] [place] [address]- 2631 Jan, [facility] [place] [facility] [address] [id number] [place] [address]- [address]367 Jan, [facility] [place] [facility] [address] [id number] [place] [address]- 5408 Jan, [facility] [place] [facility] [address] [id number] [place] [address]- 1639 Dec, [facility] [place] [facility] [address] [id number] [place] [address]- 9938 Dec, [facility] [place] [facility] [address] [id number] [place] [address]- 7605 Dec, [facility] [place] [facility] [address] [id number] [place] [address]- 51[address] Dec, [facility] [place] [facility] [address] [id number] [place] [address]- 0435 Dec, [facility] [place] [facility] [address] [id number] [place] [address]- 5867 Dec, [facility] [place] [facility] [address] [id number] [place] [address]- 0361 Dec, [facility] [place] [facility] [address] [id number] [place] [address]- 3244 Dec, [facility] [place] [facility] [address] [id number] [place] [address]- 9021 Dec, [facility] [place] [facility] [address] [id number] [place] [address]- 6433 Dec, [facility] [place] [facility] [address] [id number] [place] [address]- 6812 Dec, [facility] [place] [facility] [address] [id number] [place] [address]- 4894 Dec, [facility] [place] [facility] [address] [id number] [place] [address]- 8018 Dec, [facility] [place] [facility] [address] [id number] [place] [address]- 4764 Dec, [facility] [place] [facility] [address] [id number] [place] [address]- 8399 Dec, [facility] [place] [facility] [address] [id number] [place] [address]- 4357 Dec, [facility] [place] [facility] [address] [id number] [place] [address] October, [facility] [place] [facility] [address] [id number] [place] [address] October, [facility] [place] [facility] [address] [id number] [place] [address]- 9957 October, [facility] [place] [facility] [address] [id number] [place] [address]- 8609 October, [facility] [place] [facility] [address] [id number] [place] [address]- 9584 October, [facility] [place] [facility] [address] [id number] [place] [address]- 7959 October, [facility] [place] [facility] [address] [id number] [place] [address]- 7736 Oct, [facility] [place] [facility] [address] [id number] [place] [address]- 5142 Oct, [facility] [place] [facility] [address] [id number] [place] [address]- 9100 Oct, [facility] [place] [facility] [address] [id number] [place] [address]- 9417 Oct, [facility] [place] [facility] [address] [id number] [place] [address]- 3207 Oct, [facility] [place] [facility] [address] [id number] [address] Oct, [facility] [address] [id number] [place] [address]- 7280 Aug, [facility] [place] [facility] [address] [id number] [place] [address] Aug, [facility] [address] [id number] [place] [address]- 1118 Aug, [facility] [place] [facility] [address] [id number] [place] [address]- 3357 Aug, [facility] [address] [id number] [place] [address]- 7448 Jul, [facility] [address] [id number] [place] [address]- 8044 Jul, [facility] [address] [id number] [place] [address]- 5599 Jul, [facility] [place] [facility] [address] [id number] [place] [address]- 4994 Jul, [facility] [address] [id number] [place] [address]- 7942 Jun, [facility] [place] [facility] [address] [id number] [place] [address]- 4108 31 Jun, 2013 [facility] [place] [facility] [address] [id number] [place] [address]- 1421 24 Jun, 2013 [facility] [place] [facility] [address] [id number] [place] [address]- 8290 24 Jun, 2013 [facility] [place] [facility] [address] [id number] [place] [address]99 20 Jun, 2013 [facility] [place] [facility] [address] [id number] [place] [address] 18 Jun, 2013 [facility] [place] [facility] [address] [id number] [place] [address]130 18 Jun, 2013 [facility] [place] [facility] [address] [id number] [place] [address]- 7556 Jun, [facility] [address] [id number] [place] [address]- 3708 Jun, [facility] [place] [facility] [address] [id number] [place] [address]- 0696 Jun, [facility] [address] [id number] [place] [address]- 8017 Jun, [facility] [place] [facility] [address] [id number] [place] [address]- 6620 May, [facility] [address] [id number] [place] [address]- 5792 May, [facility] [address] [id number] [place] [address]- 6822 May, [facility] [address] [id number] [place] [address]- 8580 May, [facility] [address] [id number] [place] [address]- 0633 May, [facility] [place] [facility] [address] [id number] [place] [address]- 9956 May, [facility] [address] [id number] [place] [address]- 2926 May, [facility] [place] [facility] [address] [id number] [place] [address]- 4073 Apr, [facility] [place] [facility] [address] [id number] [place] [address]- 8105 Apr, [facility] [place] [facility] [address] [id number] [place] [address]- 3903 Apr, [facility] [place] [facility] [address] [id number] [place] [address]- 2546 Apr, [facility] [place] [facility] [address] [id number] [place] [address]- 9918 Mar, [facility] [place] [facility] [address] [id number] [place] [address]- 7048 Mar, 2012 [facility] [place] [facility] [address] [id number] [place] [address]- 6528 Mar, [facility] [place] [facility] [address] [id number] [place] [address]- 2994 Mar, 2012 [facility] [place] [facility] [address] [id number] [place] [address]- 6160 Mar, [facility] [place] [facility] [address] [id number] [place] [address]- 8730 Mar, [facility] [place] [facility] [address] [id number] [place] [address]- 4895 Jan, [facility] [place] [facility] [address] [id number] [place] [address]- 0254 Jan, [facility] [place] [facility] [address] [id number] [place] [address]- 0608 Jan, [facility] [place] [facility] [address] [id number] [place] [address]- 8408 Jan, [facility] [place] [facility] [address] [id number] [place] [address]- 7300 Jan, [facility] [place] [facility] [address] [id number] [place] [address]- 1007 Dec, [facility] [place] [facility] [address] [id number] [place] [address]- 7739 Dec, [facility] [place] [facility] [address] [id number] [place] [address]- 2400 Dec, [facility] [place] [facility] [address] [id number] [place] [address]- 4557 Dec, [facility] [place] [facility] [address] [id number] [place] [address]- 3660 Dec, [facility] [place] [facility] [address] [id number] [place] [address]- 9351 Dec, [facility] [address] [id number] [place] [address]- 9119 Dec, [facility] [address] [id number] [place] [address]- 9038 Dec, [facility] [address] [id number] [place] [address]- 9394 October, [facility] [address] [id number] [place] [address]- 7844 October, [facility] [address] [id number] [place] [address]- 5116 October, [facility] [address] [id number] [place] [address]- 6592 Oct, [facility] [address] [id number] [place] [address]- 8091 Oct, [facility] [address] [id number] [place] [address]- 7361 Oct, [facility] [address] [id number] [place] [address]- 6919 Oct, [facility] [address] [id number] [place] [address]- 4646 Aug, [facility] [address] [id number] [place] [address]- 1867 Aug, [facility] [place] [facility] [address] [id number] [place] [address]- 7714 05 Aug, 2012 [facility] [address] [id number] [place] [address]- 5901 Jul, [facility] [place] [facility] [address] [id number] [place] [address]- 0281 May, [facility] [address] [id number] [place] [address]- 7312 May, [facility] [place] [facility] [address] [id number] [place] [address]- 2070 Apr, [facility] [place] [facility] [address] [id number] [place] [address]- 8225 Apr, [facility] [place] [facility] [address] [id number] [place] [address]- 6426 Apr, [facility] [place] [facility] [address] [id number] [place] [address]- 0413 Apr, [facility] [place] [facility] [address] [id number] [place] [address]- 1973 Apr, [facility] [place] [facility] [address] [id number] [place] [address]- 9935 Apr, [facility] [place] [facility] [address] [id number] [place] [address]- 9733 Apr, [facility] [place] [facility] [address] [id number] [place] [address]- 4821 Apr, [facility] [place] [facility] [address] [id number] [place] [address]- 1869 Apr, [facility] [place] [facility] [address] [id number] [place] [address]- 1886 Apr, [facility] [place] [facility] [address] [id number] [place] [address]- 2201 Apr, [facility] [place] [facility] [address] [id number] [place] [address]- 5482 Apr, [facility] [place] [facility] [address] [id number] [place] [address]- 3674 Mar, [facility] [place] [facility] [address] [id number] [place] [address]- 5306 Jan, [facility] [place] [facility] [address] [id number] [place] [address] 2546 Dec, [facility] [place] [facility] [address] [id number] [place] [address]- 4736 October, [facility] [address] [id number] [place] [address]- 1637 Oct, [facility] [place] [facility] [address] [id number] [place] [address]- 1586 Oct, [facility] [place] [facility] [address] [id number] [place] [address]- 7810 Oct, [facility] [place] [facility] [address] [id number] [place] [address]- 6673 Aug, [facility] [place] [facility] [address] [id number] [place] [address]- 3518 Aug, [facility] [place] [facility] [address] [id number] [place] [address]- 4357 29 Aug, 2011 [facility] [place] [facility] [address] [id number] [place] [address]- 4725 16 Aug, 2011 [facility] [place] [facility] [address] [id number] [place] [address]- 6399 15 Aug, 2011 [facility] [place] [facility] [address] [id number] [place] [address]- 3433 Aug, [facility] [place] [facility] [address] [id number] [place] [address]- 9274 Jun, [facility] [place] [facility] [address] [id number] [place] [address]- 9785 Apr, [facility] [place] [facility] [address] [id number] [place] [address]- 1872 Jun, [facility] [place] [facility] [address] [id number] [place] [address]- 4563 Jun, [facility] [place] [facility] [address] [facility] [id number] [place] [address]- 3247 May, [facility] [place] [facility] [address] [id number] [place] [address]- 2193 May, [facility] [place] [facility] [address] [facility] [id number] [place] [address]- 2675 15 Apr, 2009 [facility] [address] [facility] [id number] [place] [address]- 9531 13 Apr, 2009 IMMUNIZATIONS No Known Immunizations SOCIAL HISTORY Never Assessed REASON FOR VISIT Referral request PLAN OF CARE VITAL SIGNS MEDICATIONS Unknown [...] History see above surgeries Hospitalization History Anaphylactic shock-[facility] 08/23/16
--- OUTSIDE RECORDS SUMMARY | 2018-07-18 07:37 | XMS REPORT ---
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 Name Role Phone BRANDYTEZ HOYTHANY Unavailable PROBLEMS Type Condition ICD9-CM Code OOR24-FS Code Onset Dates Condition Status SNOMED Code Problem Migraine with aura and without status migrainosus, not intractable G43.109 Active 6142535 Problem PCOS (polycystic ovarian syndrome) E28.2 Active 92461199 Problem Uncomplicated severe persistent asthma J45.50 Active 669418804 Problem Severe persistent asthma with exacerbation J45.51 Active 946475460 Problem Other elevated white blood cell (WBC) count D72.828 Active 879378270 Problem Multiple food allergies Z91.018 Active 079459279 Problem Pure hypercholesterolemia E78.00 Active 513984922 Problem Current chronic use of inhaled steroid Z79.51 Active 114395356 Problem Asthma exacerbation J45.901 Active 668065775 Problem ADD (attention deficit disorder) F90.0 Active 272851776 Problem Allergic rhinitis due to pollen J30.1 Active 33566484 Problem Vitamin D deficiency E55.9 Active 62273419 Problem Major depressive disorder, recurrent episode, mild F33.0 Active 419932853 Problem Acquired hypothyroidism E03.9 Active 813805206 Problem Gastroesophageal reflux disease without esophagitis K21.9 Active 971162734 ALLERGIES No Information ENCOUNTERS Encounter Location Date Diagnosis [facility] [id number] [address] Dec, ADD (attention deficit disorder) F90.0 and Uncomplicated severe persistent asthma J45.50 [facility] [address], [place] [address] Dec, Allergic rhinitis due to pollen J30.1 [facility] [address] [place] [address] 44728- 3605 Dec, [address] [address] [place] [address] 23881- 6012 October, Allergic rhinitis due to pollen J30.1 [place] [id number] [place] [address] 73488- 2985 October, Allergic rhinitis due to pollen J30.1 [place] [id number] [place] [address] 11262- 3521 Oct, [place] [id number] [place] [address] 06469- 7455 Oct, Allergic rhinitis due to pollen J30.1 [place] [id number] [place] [address] 24798- 9701 Oct, [place] [id number] [place] [address] 01296- 1411 Oct, Allergic rhinitis due to pollen J30.1 [place] [id number] [place] [address] 75356- 6549 Oct, Severe persistent asthma with exacerbation J45.51 and Pneumonia due to Haemophilus influenzae, unspecified laterality, unspecified part of lung J14 [place] [id number] [place] [address] 52188- 2495 Oct, ADD (attention deficit disorder) F90.0 [place] [id number] [place] [address] 71465- 8940 Aug, Haemophilus influenzae infection A49.2 [place] [id number] [place] [address] 80961- 3286 Aug, Cough productive of purulent sputum R05 [place] [id number] [place] [address] 16240- 0509 Aug, [place] [id number] [place] [address] 04725- 9045 Aug, Pulmonary congestion R09.89 [place] [address] [place] [address]34 Aug, Severe persistent asthma with exacerbation J45.51 ; Hiatal hernia K44.9 and Gastroesophageal reflux disease without esophagitis K21.9 [place] [id number]- 2860 Aug, Other elevated white blood cell (WBC) count D72.828 [address]- 7020 Aug, Uncomplicated severe persistent asthma J45.[address] 055477- 7722 Aug, Pure hypercholesterolemia E78.00 ; Uncomplicated severe persistent asthma J45.50 and Acquired hypothyroidism E03.[address] 31591- 3402 Aug, Acquired hypothyroidism E03.9 ; Pure hypercholesterolemia E78.00 and Uncomplicated severe persistent asthma J45.[address] 22519- 3126 Aug, Allergic rhinitis due to pollen J30.[address] 69385- 0450 Aug, Allergic rhinitis due to pollen J30.[address] 23144- 2285 Aug, [place] [address] [id number] Jul, Pharyngitis, unspecified etiology J02.9 and Lymphadenopathy R59.[address] 90946- 6024 Jul, ADD (attention deficit disorder) F90.[address] 19174- 6350 Jul, Allergic rhinitis due to pollen J30.[address] [place] [address]- 2413 Jul, Dental examination Z01.20 [place] [address] 07485- 9246 Jun, Cough productive of purulent sputum R05 [place] [id number] [place] [address] 87021- 8275 Jun, Allergic rhinitis due to pollen J30.1 [place] [address] [place] [address] 49842- 2438 Jun, [place] [id number] [place] [address] 50316- 0824 Jun, Allergic rhinitis due to pollen J30.1 [place] [address] [place] [address] 33403- 1332 Jun, Allergic rhinitis due to pollen J30.1 [place] [address] [place] [address] 09291- 8650 May, Allergic rhinitis due to pollen J30.1 [place] [address] [place] [address] 89208- 9910 May, Pneumonia due to Haemophilus influenzae, unspecified laterality, unspecified part of lung J14 [place] [address] [place] [address] 88934- 9584 May, Allergic rhinitis due to pollen J30.1 [place] [address] [place] [address] 17213- 2932 May, Other adverse food reactions, not elsewhere classified, initial encounter T78.1XXA and Pneumonia due to Haemophilus influenzae, unspecified laterality, unspecified part of lung J14 [place] [address] [place] [address] 96784- 6475 May, Pneumonia due to Haemophilus influenzae, unspecified laterality, unspecified part of lung J14 [place] [address] [place] [address] 14912- 7364 May, Multiple food allergies Z91.018 ; Uncomplicated severe persistent asthma J45.50 ; Cough productive of purulent sputum R05 and Uses central nervous system stimulants F15.90 [place] [address] 46492- 3355 Apr, Allergic rhinitis due to pollen J30.1 [place] [address] 67537- 9247 Apr, Allergic rhinitis due to pollen J30.1 [address] [address] 91844- 6888 Apr, Allergic rhinitis due to pollen J30.1 [place] [address] 80940- 4558 Apr, ADD (attention deficit disorder) F90.0 [place] [address] 79126- 5836 28 Mar, 2017 Allergic rhinitis due to pollen J30.1 [place] [address] 55269- 5323 21 Mar, 2017 Encounter for immunization Z23 [place] [address] 90586- 7960 19 Mar, 2017 [address] [address] 91067- 7920 14 Mar, 2017 Allergic rhinitis due to pollen J30.1 [address] [address] 51921- 8849 07 Mar, 2017 Allergic rhinitis due to pollen J30.1 [place] [address] 39137- 0150 Jan, Allergic rhinitis due to pollen J30.1 [address] [address] 47360- 2037 Jan, Allergic rhinitis due to pollen J30.1 [place] [address] 41174- 8766 Dec, Uncomplicated severe persistent asthma J45.50 [place] [address] [place] [address] 96210- 9122 Dec, Allergic rhinitis due to pollen J30.1 [place] [address] [place] [address] 58366- 5335 Dec, Allergic rhinitis due to pollen J30.1 [address] [address] 46203- 4897 Dec, Allergic rhinitis due to pollen J30.1 [place] [address] [place] [address] 83716- 6975 Dec, ADD (attention deficit disorder) F90.0 [place] [address] 77218- 1560 Dec, Allergic rhinitis due to pollen J30.1 [place] [id number] [place] [address] 63024- 5065 Dec, Screening for tuberculosis Z11.1 and Visit for TB skin test Z11.1 [id number] [place] [address] 17363- 8788 Dec, Uncomplicated severe persistent asthma J45.50 ; Palpitations R00.2 ; Pericardial effusion (noninflammatory) I31.3 and Chest discomfort R07.89 [place] [address] [place] [address] 17834- 6100 Dec, Allergic rhinitis due to pollen J30.1 [place] [address] [place] [address] 33868- 8363 Dec, Chronic cough R05 [place] [id number] [place] [address] 08527- 4577 Dec, [place] [address] [place] [address] 00797- 2168 Dec, Allergic rhinitis due to pollen J30.1 [address] [place] [address] [place] [address]- 8837 Dec, Allergic rhinitis due to pollen J30.1 [facility] [address] [place] [address] 77344- 2887 Dec, Chronic cough R05 [place] [address] [place] [address] 49452- 7094 October, Allergic rhinitis due to pollen J30.1 [place] [address] [place] [address] 80361- 9893 October, Allergic rhinitis due to pollen J30.1 [place] [address] [place] [address] 54465- 2365 October, [place] [address] [place] [address] 61747- 0771 October, Asthma exacerbation J45.901 [address] [address] 36000- 1936 October, Asthma exacerbation J45.901 and Current chronic use of inhaled steroid Z79.51 [place] [address] [place] [address] 40062- 9168 October, Uncomplicated severe persistent asthma J45.50 [address] [address] [place] [address] 99381- 8254 October, Allergic rhinitis due to pollen J30.1 [place] [address] [place] [address] 84139- 9556 Oct, [place] [address] [place] [address] 82798- 9919 Oct, Asthma exacerbation J45.901 and Sputum production R05 [address] [address] [place] [address] 47035- 3147 Oct, Asthma exacerbation J45.901 [address] [address] [place] [address] 90776- 3386 Oct, ADD (attention deficit disorder) F90.0 [address] [address] [place] [address] 84667- 9495 Oct, ADD (attention deficit disorder) F90.0 [address] [address] 272466- 7890 Aug, Allergic rhinitis due to pollen J30.1 [address] [place] [address] 49793- 1852 Aug, Atypical pneumonia J18.9 [address] [address] 16228- 1437 Aug, Allergic rhinitis due to pollen J30.1 [address] [place] [address] 46510- 7946 Aug, Acquired hypothyroidism E03.9 [address] [address] 30922- 9459 Aug, Multiple food allergies Z91.018 ; Elevated blood pressure reading R03.0 and Anaphylaxis, subsequent encounter T78.2XXD [place] [address] [id number] Aug, [address] 67508- 8686 Aug, Anaphylaxis, initial encounter T78.2XXA [address] [address] 46239- 2217 Aug, Allergic rhinitis due to pollen J30.1 [address] [place] 14573- 2472 Aug, Dental examination Z01.20 [address] [address] 22817- 5332 Aug, Allergic rhinitis due to pollen J30.1 [address] [place] [address] 76911- 1131 Aug, Acquired hypothyroidism E03.9 and Pure hypercholesterolemia E78.00 [facility] [address] [place] [address] 76451 2546 03 Aug, 2016 ADD (attention deficit disorder) F90.0 ; Acquired hypothyroidism E03.9 and Pure hypercholesterolemia E78.00 [facility] [address] [place] [address] 53888 2546 02 Aug, 2016 Asthma exacerbation J45.901 [facility] [address] 85523- 3196 Jul, Allergic rhinitis due to pollen J30.1 [address] [address] [place] [address] 86637- 6976 Jul, Allergic rhinitis due to pollen J30.1 [address] [address] [place] [address] 71192- 0225 Jul, [address] [address] 12385- 9370 Jul, Allergic rhinitis due to pollen J30.1 [facility] [address] [place] [address] 61101- 9487 Jul, Other halfway (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 and ADD ( attention deficit disorder) F90.0 [place] [address] [place] [address] 29099- 1082 Jul, Other halfway (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 and ADD ( attention deficit disorder) F90.0 [facility] [address] [place] [address] 88893 2544 Jul, [facility] [address] [place] [address] 75602- 5966 Jun, Allergic rhinitis due to pollen J30.1 [facility] [address] [place] [address] 73602- 6601 Jun, Allergic rhinitis due to pollen J30.1 [facility] [address] [place] [address] 40048- 4754 Jun, [facility] [address] [place] [address] 53746- 8252 May, Allergic rhinitis due to pollen J30.1 [facility] [address] [place] [address] 57627- 1771 May, Allergic rhinitis due to pollen J30.1 [facility] [address] [place] [address] 28200- 2438 Apr, Allergic rhinitis due to pollen J30.1 [facility] [address] [place] [address] 97081- 0913 Apr, Allergic rhinitis due to pollen J30.1 [place] [address] [place] [address] 46147- 2033 Apr, Encounter for immunization Z23 [place] [address] 87959- 6072 Apr, [place] [address] [place] [address] 56985- 5202 Mar, Allergic rhinitis due to pollen J30.1 [place] [address] [place] [address] 28435- 3226 Mar, Multiple allergies Z88.9 [place] [address] [place] [address] 07731- 4528 Mar, Candidal vaginitis B37.3 [place] [address] [place] [address] 84727- 0110 08 Mar, 2016 Allergic rhinitis due to pollen J30.1 [place] [address] [place] [address] 04080- 3636 Jan, Asthma exacerbation J45.901 ; Fatigue, unspecified type R53.83 and Community acquired pneumonia J18.9 [facility] [id number] [place] [address] [id number] Jan, Encounter for dental examination Z01.20 [facility] [address], [place] [address]- 8896 Jan, Allergic rhinitis due to pollen J30.1 [facility] [address] [place] [address]- 8472 Dec, Allergic rhinitis due to pollen J30.1 [facility] [address], [place] [address]- 5422 Dec, [facility] [id number], [place] [address]- 8727 Dec, Allergic rhinitis due to pollen J30.1 [facility] [address], [place] [address]- 1406 Dec, [facility] [address] [place] [address]- 0277 Dec, [facility] [address] [place] [address] 50542- 0364 Dec, [facility] [address], [place] [address]- 4637 Dec, Allergic rhinitis due to pollen J30.1 [facility] [address], [place] [address]- 1962 Dec, [facility] [address], [place] [address]- 8396 Dec, [facility] [address], [place] [address]- 5849 Dec, Allergic rhinitis due to pollen J30.1 [facility] [address], [place] [address]- 2812 October, Allergic rhinitis due to pollen J30.1 [facility] [address] [place] [address]- 5976 October, Allergic rhinitis due to pollen J30.1 [facility] [address] [place] [address] 95421- 7004 October, [place] [address] [place] [address] 82617- 7974 October, [place] [address] [place] [address] 34006- 6779 October, ADD (attention deficit disorder) F90.0 ; Major depressive disorder, recurrent episode, mild F33.0 and Uncomplicated severe persistent asthma J45.50 [place] [address] 71494- 7844 Oct, Allergic rhinitis due to pollen J30.1 [place] [address] 93312- 5942 Oct, ADD (attention deficit disorder) F90.0 [place] [address] [place] [address] 80258- 9508 Oct, Allergic rhinitis due to pollen 477.0 [place] [address] [place] [address] 30613- 5541 Aug, Allergic rhinitis due to pollen 477.0 [place] [address] [place] [address] 96176- 5079 Aug, 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 [place] [address] [place] [address] 94907- 8173 Aug, [place] [address] [place] [address] 53258- 9023 Aug, Allergic rhinitis due to pollen 477.0 [place] [address] [place] [address] 16824- 4034 Aug, Allergic rhinitis due to pollen 477.0 [place] [address] [place] [address] 18706- 4357 Aug, Allergic rhinitis due to pollen 477.0 [place] [address] [place] [address] 79842- 8516 Aug, Exposure to influenza Z20.828 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 [place] [address] 10232- 4339 Jul, [place] [address] 99423- 0556 Jul, Allergic rhinitis due to pollen 477.0 [place] [address] [place] [address] 67329- 9826 Jul, [place] [address] 75485- 7299 Jul, Allergic rhinitis due to pollen 477.0 [place] [address] [place] [address] 40669- 5553 Jun, ADD (attention deficit disorder) F90.0 ; Acquired hypothyroidism E03.9 ; PCOS (polycystic ovarian syndrome) E28.2 ; Polyarthralgia M25.50 and On stimulant medication Z79.899 [place] [address] [place] [address] 45307- 1687 Apr, Encounter for immunization Z23 [facility] [address] [place] [address] 29131- 7997 16 Mar, 2015 Allergic rhinitis due to pollen 477.0 [place] [address] 73172- 5756 Mar, Influenza vaccine administered V04.81 [facility] [address] [place] [address] 81932- 0499 Mar, [facility] [address] [place] [address] 441600- 4800 Jan, Allergic rhinitis due to pollen 477.0 [facility] [address] [place] [address] 053980- 8238 Jan, Allergic rhinitis due to pollen 477.0 [facility] [address] [place] [address] 868267- 6252 Jan, Allergic rhinitis due to pollen 477.0 [facility] [id number] [place] [address] [id number] Jan, Dental examination V72.2 [facility] [address] [place] [address] 37842- 0526 Dec, Allergic rhinitis due to pollen 477.0 [facility] [address] [place] [address] 15354- 9276 October, [facility] [id number] [place] [address] 48938- 5439 Oct, [facility] [id number] [place] [address] 42656- 8890 Oct, [facility] [address] [place] [address] 11873- 2344 Aug, [facility] [address] [place] [address] 30593- 3081 Aug, [facility] [id number] [place] [address] 556009- 8024 Aug, [facility] [id number] [place] [address] 051595- 2606 Aug, [facility] [address] [place] [address] 429859- 2358 Aug, [facility] [place] [facility] [address] [id number] [place] [address]- 3057 Aug, [facility] [place] [facility] [address] [id number] [place] [address]- 3928 Aug, [facility] [place] [facility] [address] [id number] [place] [address]- 0642 Aug, [facility] [place] [facility] [address] [id number] [place] [address]- 1124 Jul, [facility] [place] [facility] [address] [id number] [place] [address]- 8390 Jul, [facility] [place] [facility] [address] [id number] [place] [address] Jul, [facility] [place] [facility] [address] [id number] [place] [address] Jul, [facility] [place] [facility] [address] [id number] [place] [address] Jul, [facility] [place] [facility] [address] [id number] [place] [address] Jul, [facility] [place] [facility] [address] [id number] [place] [address] Jul, [facility] [place] [facility] [address] [id number], [place] [address] Jul, [facility] [place] [facility] [address] [id number], [place] [address] Jul, [facility] [place] [facility] [address] [id number] [place] [address] Jul, [facility] [place] [facility] [address] [id number] [place] [address] Jul, [facility] [place] [facility] [address] [id number] [place] [address] Jun, [facility] [place] [facility] [address] [id number] [place] [address] Jun, [facility] [place] [facility] [address] [id number] [place] [address] Jun, [facility] [place] [facility] [address] [id number] [place] [address] Jun, [facility] [place] [facility] [address] [id number] [place] [address] Jun, [facility] [place] [facility] [address] [id number] [place] [address] Jun, [facility] [place] [facility] [address] [id number] [place] [address] May, [facility] [place] [facility] [address] [id number] [place] [address] May, [facility] [place] [facility] [address] [id number] [place] [address] May, [facility] [place] [facility] [address] [id number] [place] [address] May, [facility] [place] [facility] [address] [id number] [place] [address] May, [facility] [place] [facility] [address] [facility] [id number] [place] [address] May, [facility] [place] [facility] [address] [id number] [place] [address] Apr, [facility] [place] [facility] [address] [id number] [place] [address] Apr, [facility] [place] [facility] [address] [id number] [place] [address] Mar, [facility] [place] [facility] [address] [id number] [place] [address] 27[address] Mar, [facility] [place] [facility] [address] [id number] [place] [address] Mar, [facility] [place] [facility] [address] [id number] [place] [address] Mar, [facility] [place] [facility] [address] [id number] [place] [address] 0271 Mar, [facility] [place] [facility] [address] [id number] [place] [address] 5677 Mar, [facility] [place] [facility] [address] [id number] [place] [address]378 Jan, [facility] [place] [facility] [address] [id number] [place] [address] Jan, [facility] [place] [facility] [address] [id number] [place] [address] 4214 Jan, [facility] [place] [facility] [address] [id number] [place] [address] 4101 Jan, [facility] [place] [facility] [address] [id number] [place] [address] 8636 Jan, [facility] [place] [facility] [address] [id number] [place] [address] 6009 Jan, [facility] [place] [facility] [address] [id number] [place] [address] 9866 Dec, [facility] [place] [facility] [address] [id number] [place] [address]- 2791 Dec, [facility] [place] [facility] [address] [id number] [place] [address] 8838 Dec, [facility] [place] [facility] [address] [id number] [place] [address]- 0327 Dec, [facility] [place] [facility] [address] [id number] [place] [address] 5730 Dec, [facility] [place] [facility] [address] [id number] [place] [address] 2498 Dec, [facility] [place] [facility] [address] [id number] [place] [address] 2676 Dec, [facility] [place] [facility] [address] [id number] [place] [address] 8519 Dec, [facility] [place] [facility] [address] [id number] [place] [address]- 6019 Dec, [facility] [place] [facility] [address] [id number] [place] [address]- 2676 Dec, [facility] [place] [facility] [address] [id number] [place] [address]- 2226 Dec, [facility] [place] [facility] [address] [id number] [place] [address]- 6257 Dec, [facility] [place] [facility] [address] [id number] [place] [address]- 2838 Dec, [facility] [place] [facility] [address] [id number] [place] [address] 4030 Dec, [facility] [place] [facility] [address] [id number] [place] [address]- 8269 Dec, [facility] [place] [facility] [address] [id number] [place] [address]- 5496 Dec, [facility] [place] [facility] [address] [id number] [place] [address] 8174 October, [facility] [place] [facility] [address] [id number] [place] [address] 6398 October, [facility] [place] [facility] [address] [id number] [place] [address] 3399 October, [facility] [place] [facility] [address] [id number] [place] [address] 7732 October, [facility] [place] [facility] [address] [id number] [place] [address]- 0017 October, [facility] [place] [facility] [address] [id number] [place] [address] 9489 October, [facility] [place] [facility] [address] [id number] [place] [address]- 5835 Oct, [facility] [address] [id number] [place] [address] 2207 Oct, [facility] [place] [facility] [address] [id number] [place] [address] 9866 Oct, [facility] [address] [id number] [place] [address] 3939 Oct, [facility] [place] [facility] [address] [id number] [place] [address] 6744 Oct, [facility] [address] [id number] [place] [address] 1861 Oct, [facility] [place] [facility] [address] [id number] [place] [address] 0047 Aug, [facility] [place] [facility] [address] [id number] [place] [address] 2445 Aug, [facility] [address] [id number] [place] [address] 7431 Aug, [facility] [place] [facility] [address] [id number] [place] [address]- 3433 Aug, [facility] [address] [id number] [place] [address] 2000 Jul[facility] [place] [facility] [address] [id number] [place] [address] 1526 Jul, [facility] [place] [facility] [address] [id number] [place] [address]- 3655 Jul, [facility] [place] [facility] [address] [id number] [place] [address] Jul, [facility] [place] [facility] [address] [id number] [place] [address] 2550 Jun, [facility] [place] [facility] [address] [id number] [place] [address] 1804 Jun, [facility] [address] [id number] [place] [address]- 8107 Jun, [facility] [place] [facility] [address] [id number] [place] [address]- 7967 Jun, [facility] [place] [facility] [address] [id number] [place] [address]- 0514 Jun, [facility] [place] [facility] [address] [id number] [place] [address]- 3885 Jun, [facility] [place] [facility] [address] [id number] [place] [address] 3113 Jun, [facility] [place] [facility] [address] [id number] [place] [address]- 6775 Jun, [facility] [place] [facility] [address] [id number] [place] [address]- 0468 Jun, [facility] [place] [facility] [address] [id number] [place] [address]- 9874 Jun, [facility] [place] [facility] [address] [id number] [place] [address]- 1094 Jun, [facility] [place] [facility] [address] [id number], [place] [address] May, [facility] [place] [facility] [address] [id number], [place] [address] 6033 May, [facility] [place] [facility] [address] [id number], [place] [address] 8561 May, [facility] [place] [facility] [address] [id number] [place] [address] 1852 May, [facility] [place] [facility] [address] [id number], [place] [address] 7418 May, [facility] [place] [facility] [address] [facility] [id number], [place] [address]385 06 May, 2013 [facility] [place] [facility] [address] [id number] [place] [address]- 8809 06 May, 2013 [facility] [place] [facility] [address] [id number] [place] [address]- 6326 30 Apr, 2013 [facility] [place] [facility] [address] [id number] [place] [address]- 1527 30 Apr, 2013 [facility] [place] [facility] [address] [id number] [place] [address]- 0165 18 Apr, 2013 [facility] [place] [facility] [address] [id number] [place] [address]- 3229 02 Apr, 2013 [facility] [place] [facility] [address] [id number] [place] [address]- 8234 27 Mar, 2013 [facility] [place] [facility] [address] [id number] [place] [address]- 9742 26 Mar, 2012 [facility] [place] [facility] [address] [id number] [place] [address]- 9670 26 Mar, 2012 [facility] [place] [facility] [address] [id number] [place] [address]- 8080 23 Mar, 2012 [facility] [place] [facility] [address] [id number] [place] [address]- 4778 04 Mar, 2013 [facility] [place] [facility] [address] [id number] [place] [address]- 8571 03 Mar, 2013 [facility] [place] [facility] [address] [id number] [place] [address]- 9205 30 Jan, 2013 [facility] [place] [facility] [address] [id number] [place] [address]- 2544 28 Jan, 2013 [facility] [place] [facility] [address] [id number] [place] [address]- 0114 Jan, [facility] [place] [facility] [address] [id number] [place] [address]- 4921 14 Jan, 2013 [facility] [place] [facility] [address] [id number] [place] [address]- 2590 06 Jan, 2013 [facility] [place] [facility] [address] [id number] [place] [address]- 0976 Dec, [facility] [address] [id number] [place] [address]- 6493 Dec, [facility] [place] [facility] [address] [id number] [place] [address]- 9884 Dec, [facility] [address] [id number] [place] [address]- 3038 Dec, [facility] [address] [id number] [place] [address]- 1100 Dec, [facility] [place] [facility] [address] [id number] [place] [address]- 4227 Dec, [facility] [address] [id number] [place] [address]- 5084 Dec, [facility] [address] [id number] [place] [address]- 8184 Dec, [facility] [address] [id number] [place] [address]- 9298 October, [facility] [address] [id number] [place] [address]- 5762 October, [facility] [place] [facility] [address] [id number] [place] [address]- 5586 October, [facility] [place] [facility] [address] [id number] [place] [address]- 4411 24 Oct, 2012 [facility] [place] [facility] [address] [id number] [place] [address]- 9200 18 Oct, 2012 [facility] [place] [facility] [address] [id number] [place] [address]- 4276 17 Oct, 2012 [facility] [place] [facility] [address] [id number] [place] [address]- 8358 02 Oct, 2012 [facility] [place] [facility] [address] [id number], [place] [address]- 5396 Aug, [facility] [place] [facility] [address] [id number] [place] [address]- 1418 Aug, [facility] [place] [facility] [address] [id number] [place] [address]- 1002 Aug, [facility] [place] [facility] [address] [id number] [place] [address]- 4431 Jul, [facility] [place] [facility] [address] [id number] [place] [address]- 0985 May, [facility] [place] [facility] [address] [id number] [place] [address]- 4813 May, [facility] [place] [facility] [address] [id number] [place] [address]- 6353 Apr, [facility] [place] [facility] [address] [id number] [place] [address]- 4894 Apr, [facility] [place] [facility] [address] [id number], [place] [address]- 5428 Apr, [facility] [place] [facility] [address] [id number] [place] [address]- 9965 Apr, [facility] [place] [facility] [address] [id number] [place] [address]- 4049 Apr, [facility] [place] [facility] [address] [id number], [place] [address]- 0188 Apr, [facility] [place] [facility] [address] [id number], [place] [address]- 8276 Apr, [facility] [place] [facility] [address] [id number] [place] [address]- 4238 Apr, [facility] [place] [facility] [address] [facility] [id number] [place] [address]- 9480 Apr, [facility] [place] [facility] [address] [id number] [place] [address]- 4349 Apr, [facility] [place] [facility] [address] [id number] [place] [address]- 9122 14 Apr, 2012 [facility] [address] [id number] [place] [address]- 6949 Apr, [facility] [address] [id number] [place] [address] 2546 Mar, [facility] [address] [id number] [place] [address]- 9616 Jan, [facility] [address] [id number] [place] [address]- 6594 Dec, [facility] [address] [id number] [place] [address]- 8997 October, [facility] [address] [id number] [place] [address]- 1896 Oct, [facility] [address] [id number] [place] [address]- 8646 Oct, [facility] [address] [id number] [place] [address]- 0286 Oct, [facility] [address] [id number] [place] [address]- 3256 Aug, [facility] [address] [facility] [id number] [place] [address]- 1146 Aug, [facility] [place] [facility] [address] [id number] [place] [address]- 7856 Aug, [facility] [address] [id number] [place] [address]- 2546 Aug, [facility] [place] [facility] [address] [id number] [place] [address]- 3766 Aug, [facility] [place] [facility] [address] [facility] [id number] [place] [address]- 2546 Aug, [facility] [place] [facility] [address] [facility] [id number] [place] [address]- 7826 Jun, [facility] [address] [facility] [id number], [place] [address]- 1714 Apr, [facility] [address] [facility] [id number], [place] [address]- 1825 Jun, [facility] [address] [facility] [id number], [place] [address]- 6356 Jun, [facility] [address] [facility] [id number], [place] [address]- 0564 May, [facility] [address] [facility] [id number], [place] [address]- 9788 May, [facility] [address] [facility] [id number], [place] [address]- 4840 Apr, [facility] [address] [id number], [place] [address]- 1070 Apr, IMMUNIZATIONS No Known Immunizations SOCIAL HISTORY Never Assessed REASON FOR VISIT Rx requests PLAN OF CARE VITAL SIGNS MEDICATIONS Medication Instructions Dosage Frequency Start Date End Date Duration Status Nebulizer - as directed Aug, Active PredniSONE 20 mg Orally every day x5 days 3 tablet Aug, Aug, 05 days Active Aerobika - as directed Aug, Active RESULTS No Results PROCEDURES No [...] History see above surgeries Hospitalization History Anaphylactic shock-[facility] 08/23/16
--- OUTSIDE RECORDS SUMMARY | 2018-07-18 07:38 | XMS REPORT ---
Author Author BRANDY SAGAR [facility] Address [address] [place] [address] Care Team Providers Care Photo Specialist Name Role Phone BRANDYTEZ HOYTHANY Unavailable PROBLEMS Type Condition ICD9-CM Code TYV40-EL Code Onset Dates Condition Status SNOMED Code Problem Migraine with aura and without status migrainosus, not intractable G43.109 Active 3910074 Problem PCOS (polycystic ovarian syndrome) E28.2 Active 46319470 Problem Uncomplicated severe persistent asthma J45.50 Active 818245694 Problem Severe persistent asthma with exacerbation J45.51 Active 411223820 Problem Other elevated white blood cell (WBC) count D72.828 Active 189514890 Problem Multiple food allergies Z91.018 Active 600004380 Problem Pure hypercholesterolemia E78.00 Active 516851790 Problem Current chronic use of inhaled steroid Z79.51 Active 572758569 Problem Asthma exacerbation J45.901 Active 455772518 Problem ADD (attention deficit disorder) F90.0 Active 177182484 Problem Allergic rhinitis due to pollen J30.1 Active 24974919 Problem Vitamin D deficiency E55.9 Active 06024758 Problem Major depressive disorder, recurrent episode, mild F33.0 Active 940581108 Problem Acquired hypothyroidism E03.9 Active 057072454 Problem Gastroesophageal reflux disease without esophagitis K21.9 Active 776179477 ALLERGIES No Information ENCOUNTERS Encounter Location Date Diagnosis [facility] [id number] [address] Dec, ADD (attention deficit disorder) F90.0 and Uncomplicated severe persistent asthma J45.50 [facility] [address] [address] Dec, Allergic rhinitis due to pollen J30.1 [facility] [id number] [place] [address] 35762- 1851 Dec, [place] [address] [place] [address] 43589- 5437 October, Allergic rhinitis due to pollen J30.1 [place] [id number] [place] [address] 70323- 7260 October, Allergic rhinitis due to pollen J30.1 [place] [id number] [place] [address] 21633- 0240 Oct, [place] [id number] [place] [address] 18417- 5399 Oct, Allergic rhinitis due to pollen J30.1 [place] [id number] [place] [address] 51627- 0948 Oct, [place] [id number] [place] [address] 07705- 1592 Oct, Allergic rhinitis due to pollen J30.1 [place] [id number] [place] [address] 19513- 6141 Oct, Severe persistent asthma with exacerbation J45.51 and Pneumonia due to Haemophilus influenzae, unspecified laterality, unspecified part of lung J14 [place] [id number] [place] [address] 01581- 3303 Oct, ADD (attention deficit disorder) F90.0 [place] [id number] [place] [address] 90009- 6706 Aug, Haemophilus influenzae infection A49.2 [place] [id number] [place] [address] 93920- 9507 Aug, Cough productive of purulent sputum R05 [place] [id number] [place] [address] 07801- 8008 Aug, [place] [id number] [place] [address] 76912- 4656 Aug, Pulmonary congestion R09.89 [place] [id number] [place] [id number]999 Aug, Severe persistent asthma with exacerbation J45.51 ; Hiatal hernia K44.9 and Gastroesophageal reflux disease without esophagitis K21.9 [place] [id number]- 2921 Aug, Other elevated white blood cell (WBC) count D72.828 [place] [address]38410- 8426 Aug, Uncomplicated severe persistent asthma J45.[address] 971897- 5083 Aug, Pure hypercholesterolemia E78.00 ; Uncomplicated severe persistent asthma J45.50 and Acquired hypothyroidism E03.[address] 05112- 5055 Aug, Acquired hypothyroidism E03.9 ; Pure hypercholesterolemia E78.00 and Uncomplicated severe persistent asthma J45.[address] 25426- 9175 Aug, Allergic rhinitis due to pollen J30.[address] 97780- 6228 Aug, Allergic rhinitis due to pollen J30.[address] 31166- 5718 Aug, [place] [address] [id number] Jul, Pharyngitis, unspecified etiology J02.9 and Lymphadenopathy R59.[address] 23220- 3482 Jul, ADD (attention deficit disorder) F90.[address] 98229- 8641 Jul, Allergic rhinitis due to pollen J30.[address] [place] [address]- 4131 Jul, Dental examination Z01.20 [place] [address] 03054- 6837 Jun, Cough productive of purulent sputum R05 [place] [id number] [place] [address] 61972- 0058 Jun, Allergic rhinitis due to pollen J30.1 [place] [id number] [place] [address] 88099- 4822 Jun, [place] [id number] [place] [address] 79327- 0332 Jun, Allergic rhinitis due to pollen J30.1 [place] [id number] [place] [address] 88768- 4259 Jun, Allergic rhinitis due to pollen J30.1 [place] [id number] [place] [address] 81832- 1586 May, Allergic rhinitis due to pollen J30.1 [place] [id number] [place] [address] 46964- 6897 May, Pneumonia due to Haemophilus influenzae, unspecified laterality, unspecified part of lung J14 [place] [id number] [place] [address] 38544- 9486 May, Allergic rhinitis due to pollen J30.1 [place] [id number] [place] [address] 24407- 7408 May, Other adverse food reactions, not elsewhere classified, initial encounter T78.1XXA and Pneumonia due to Haemophilus influenzae, unspecified laterality, unspecified part of lung J14 [place] [id number] [place] [address] 71324- 2644 May, Pneumonia due to Haemophilus influenzae, unspecified laterality, unspecified part of lung J14 [place] [id number] [place] [address] 87918- 5586 May, Multiple food allergies Z91.018 ; Uncomplicated severe persistent asthma J45.50 ; Cough productive of purulent sputum R05 and Uses central nervous system stimulants F15.90 [place] [address] 15754- 9209 Apr, Allergic rhinitis due to pollen J30.1 [place] [address] 53738- 3145 Apr, Allergic rhinitis due to pollen J30.1 [place] [address] 64953- 1391 Apr, Allergic rhinitis due to pollen J30.1 [place] [address] 54595- 4254 Apr, ADD (attention deficit disorder) F90.0 [place] [address] 39335- 8156 28 Mar, 2017 Allergic rhinitis due to pollen J30.1 [place] [address] 32928- 9613 21 Mar, 2017 Encounter for immunization Z23 [place] [address] 59668- 4752 19 Mar, 2017 [place] [address] 89350- 4963 14 Mar, 2017 Allergic rhinitis due to pollen J30.1 [place] [address] 66284- 7095 07 Mar, 2017 Allergic rhinitis due to pollen J30.1 [place] [address] 43720- 4320 Jan, Allergic rhinitis due to pollen J30.1 [place] [address] 19046- 8596 Jan, Allergic rhinitis due to pollen J30.1 [place] [address] 09011- 0764 Dec, Uncomplicated severe persistent asthma J45.50 [place] [id number] [place] [address] 72692- 5668 Dec, Allergic rhinitis due to pollen J30.1 [place] [id number] [place] [address] 56293- 5032 Dec, Allergic rhinitis due to pollen J30.1 [place] [address] 70265- 5904 Dec, Allergic rhinitis due to pollen J30.1 [place] [id number] [place] [address] 98268- 1818 Dec, ADD (attention deficit disorder) F90.0 [place] [address] 98311- 7333 Dec, Allergic rhinitis due to pollen J30.1 [place] [id number] [place] [address] 27673- 6783 Dec, Screening for tuberculosis Z11.1 and Visit for TB skin test Z11.1 [place] [id number] [place] [address] 58223- 1021 Dec, Uncomplicated severe persistent asthma J45.50 ; Palpitations R00.2 ; Pericardial effusion (noninflammatory) I31.3 and Chest discomfort R07.89 [place] [id number] [place] [address] 36031- 7787 Dec, Allergic rhinitis due to pollen J30.1 [place] [id number] [place] [address] 35366- 6859 Dec, Chronic cough R05 [place] [address] [id number] [place] [address] 94881- 1993 Dec, [place] [id number] [place] [address] 21518- 6108 Dec, Allergic rhinitis due to pollen J30.1 [place] [address] [place] [address]- 3198 Dec, Allergic rhinitis due to pollen J30.1 [facility] [id number] [place] [address] 77145- 8449 Dec, Chronic cough R05 [place] [id number] [place] [address] 53970- 2833 October, Allergic rhinitis due to pollen J30.1 [place] [id number] [place] [address] 63329- 9911 October, Allergic rhinitis due to pollen J30.1 [place] [id number] [place] [address] 32957- 6930 October, [place] [id number] [place] [address] 98334- 3050 October, Asthma exacerbation J45.901 [place] [address] 84939- 3479 October, Asthma exacerbation J45.901 and Current chronic use of inhaled steroid Z79.51 [place] [id number] [place] [address] 25710- 8877 October, Uncomplicated severe persistent asthma J45.50 [place] [id number] [place] [address] 15046- 5220 October, Allergic rhinitis due to pollen J30.1 [place] [id number] [place] [address] 18629- 9209 Oct, [place] [id number] [place] [address] 19144- 5796 Oct, Asthma exacerbation J45.901 and Sputum production R05 [place] [id number] [place] [address] 60115- 0764 Oct, Asthma exacerbation J45.901 [place] [id number] [place] [address] 56254- 3373 Oct, ADD (attention deficit disorder) F90.0 [place] [id number] [place] [address] 44818- 6995 Oct, ADD (attention deficit disorder) F90.0 [place] [address] [place] [address] 244412- 9184 Aug, Allergic rhinitis due to pollen J30.1 [place] [address] 96329- 4627 Aug, Atypical pneumonia J18.9 [place] [address] 54508- 3547 Aug, Allergic rhinitis due to pollen J30.1 [place] [address] 94142- 7626 Aug, Acquired hypothyroidism E03.9 [place] [address] 12724- 1042 Aug, Multiple food allergies Z91.018 ; Elevated blood pressure reading R03.0 and Anaphylaxis, subsequent encounter T78.2XXD [place] [address] [id number] Aug, [place] [address] 79381- 4778 Aug, Anaphylaxis, initial encounter T78.2XXA [place] [address] 67350- 9994 Aug, Allergic rhinitis due to pollen J30.1 [place] [address] 80249- 8181 Aug, Dental examination Z01.20 [place] [address] 22589- 4867 Aug, Allergic rhinitis due to pollen J30.1 [place] [address] 93768- 2373 Aug, Acquired hypothyroidism E03.9 and Pure hypercholesterolemia E78.00 [facility] [id number] [place] [address] 63286 2546 03 Aug, 2016 ADD (attention deficit disorder) F90.0 ; Acquired hypothyroidism E03.9 and Pure hypercholesterolemia E78.00 [facility] [id number] [place] [address] 80687 2546 02 Aug, 2016 Asthma exacerbation J45.901 [facility] [address] 07965- 9046 Jul, Allergic rhinitis due to pollen J30.1 [place] [id number] [place] [address] 22790- 2176 Jul, Allergic rhinitis due to pollen J30.1 [place] [id number] [place] [address] 33340- 4586 Jul, [place] [address] 63951- 3432 Jul, Allergic rhinitis due to pollen J30.1 [facility] [id number] [place] [address] 47697- 9203 Jul, Other assisted (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 and ADD ( attention deficit disorder) F90.0 [place] [id number] [place] [address] 08483- 8719 Jul, Other assisted (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 and ADD ( attention deficit disorder) F90.0 [facility] [id number] [place] [address] 87586 2549 Jul, [facility] [id number] [place] [address] 76444- 4626 Jun, Allergic rhinitis due to pollen J30.1 [facility] [id number] [place] [address] 35047- 5014 Jun, Allergic rhinitis due to pollen J30.1 [facility] [id number] [place] [address] 92843- 5873 Jun, [facility] [id number] [place] [address] 67022- 5494 May, Allergic rhinitis due to pollen J30.1 [facility] [id number] [place] [address] 22808- 0379 May, Allergic rhinitis due to pollen J30.1 [facility] [id number] [place] [address] 45253- 3467 Apr, Allergic rhinitis due to pollen J30.1 [facility] [id number] [place] [address] 30942- 3204 Apr, Allergic rhinitis due to pollen J30.1 [place] [id number] [place] [address] 85350- 4480 Apr, Encounter for immunization Z23 [place] [address] 54114- 2351 Apr, [place] [id number] [place] [address] 87154- 5710 Mar, Allergic rhinitis due to pollen J30.1 [place] [id number] [place] [address] 54321- 5869 Mar, Multiple allergies Z88.9 [place] [id number] [place] [address] 63956- 3482 Mar, Candidal vaginitis B37.3 [place] [id number] [place] [address] 31349- 9041 08 Mar, 2016 Allergic rhinitis due to pollen J30.1 [place] [id number] [place] [address] 71867- 0650 Jan, Asthma exacerbation J45.901 ; Fatigue, unspecified type R53.83 and Community acquired pneumonia J18.9 [facility] [id number] [place] [address] [id number] Jan, Encounter for dental examination Z01.20 [facility] [address], [place] [address]- 0610 Jan, Allergic rhinitis due to pollen J30.1 [facility] [address], [place] [address]- 8160 Dec, Allergic rhinitis due to pollen J30.1 [facility] [address], [place] [address]- 2750 Dec, [facility] [id number] [address]- 8730 Dec, Allergic rhinitis due to pollen J30.1 [facility] [address], [place] [address]- 8585 Dec, [facility] [id number] [address]- 7018 Dec, [facility] [address] [place] [address] 42847- 0344 Dec, [facility] [address], [place] [address]- 0681 Dec, Allergic rhinitis due to pollen J30.1 [facility] [address], [place] [address]- 5171 Dec, [facility] [address] [address]- 9667 Dec, [facility] [address], [place] [address]- 1323 Dec, Allergic rhinitis due to pollen J30.1 [facility] [address], [place] [address]- 9401 October, Allergic rhinitis due to pollen J30.1 [facility] [address] [address]- 0462 October, Allergic rhinitis due to pollen J30.1 [facility] [address] [place] [address] 10660- 7606 October, [place] [id number] [place] [address] 97464- 7167 October, [place] [id number] [place] [address] 21528- 0066 October, ADD (attention deficit disorder) F90.0 ; Major depressive disorder, recurrent episode, mild F33.0 and Uncomplicated severe persistent asthma J45.50 [place] [address] 26501- 5308 Oct, Allergic rhinitis due to pollen J30.1 [place] [address] 21831- 9498 Oct, ADD (attention deficit disorder) F90.0 [place] [id number] [place] [address] 80070- 0348 Oct, Allergic rhinitis due to pollen 477.0 [place] [id number] [place] [address] 71150- 7343 Aug, Allergic rhinitis due to pollen 477.0 [place] [id number] [place] [address] 67539- 4944 Aug, 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 [place] [id number] [place] [address] 84385- 4640 Aug, [place] [id number] [place] [address] 91614- 3713 Aug, Allergic rhinitis due to pollen 477.0 [place] [id number] [place] [address] 15481- 0807 Aug, Allergic rhinitis due to pollen 477.0 [place] [id number] [place] [address] 35416- 4802 Aug, Allergic rhinitis due to pollen 477.0 [place] [id number] [place] [address] 38951- 6945 Aug, Exposure to influenza Z20.828 [facility] [address] [place] [address] [id number] Aug, Encounter for dental examination and cleaning without abnormal findings Z01.20 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 [place] [address] 22866- 5668 Jul, [place] [address] 00035- 0708 Jul, Allergic rhinitis due to pollen 477.0 [place] [id number] [place] [address] 53482- 5105 Jul, [place] [address] 94355- 8251 Jul, Allergic rhinitis due to pollen 477.0 [place] [id number] [place] [address] 54260- 9556 Jun, ADD (attention deficit disorder) F90.0 ; Acquired hypothyroidism E03.9 ; PCOS (polycystic ovarian syndrome) E28.2 ; Polyarthralgia M25.50 and On stimulant medication Z79.899 [place] [id number] [place] [address] 89873- 7845 Apr, Encounter for immunization Z23 [facility] [id number] [place] [address] 58226- 1395 16 Mar, 2015 Allergic rhinitis due to pollen 477.0 [place] [address] 69051- 0899 Mar, Influenza vaccine administered V04.81 [facility] [address] [place] [address] 70963- 8913 Mar, [facility] [id number] [place] [address] 953202- 6522 Jan, Allergic rhinitis due to pollen 477.0 [facility] [id number] [place] [address] 221771- 1847 Jan, Allergic rhinitis due to pollen 477.0 [facility] [address] [place] [address] 711935- 5756 Jan, Allergic rhinitis due to pollen 477.0 [facility] [id number] [place] [address] [id number] Jan, Dental examination V72.2 [facility] [id number] [place] [address] 55479- 3477 Dec, Allergic rhinitis due to pollen 477.0 [facility] [address] [place] [address] 14211- 4596 October, [facility] [id number] [place] [address] 98470- 1167 Oct, [facility] [id number] [place] [address] 59695- 1572 Oct, [facility] [address] [place] [address] 61825- 6859 Aug, [facility] [address] [place] [address] 46164- 1833 Aug, [facility] [id number] [place] [address] 873732- 0733 Aug, [facility] [id number] [place] [address] 024407- 0306 Aug, [facility] [id number] [place] [address] 694233- 3254 Aug, [facility] [place] [facility] [address] [id number] [place] [address]- 3650 Aug, [facility] [place] [facility] [address] [id number] [place] [address]- 1611 Aug, [facility] [place] [facility] [address] [id number] [place] [address]- 7227 Aug, [facility] [place] [facility] [address] [id number] [place] [address]- 5713 Jul, [facility] [place] [facility] [address] [id number] [place] [address]- 5014 Jul, [facility] [place] [facility] [address] [id number] [place] [address]- 1646 Jul, [facility] [place] [facility] [address] [id number] [place] [address]- 0914 Jul, [facility] [place] [facility] [address] [id number] [place] [address]- 3480 Jul, [facility] [place] [facility] [address] [id number] [place] [address]- 6926 Jul, [facility] [place] [facility] [address] [id number] [place] [address] Jul, [facility] [place] [facility] [address] [id number] [address] Jul, [facility] [place] [facility] [address] [id number], [place] [address] Jul, [facility] [place] [facility] [address] [id number] [place] [address] Jul, [facility] [place] [facility] [address] [id number] [place] [address] Jul, [facility] [place] [facility] [address] [id number] [place] [address] Jun, [facility] [place] [facility] [address] [id number] [place] [address] Jun, [facility] [place] [facility] [address] [id number] [place] [address] Jun, [facility] [place] [facility] [address] [id number] [place] [address] Jun, [facility] [place] [facility] [address] [id number] [place] [address] Jun, [facility] [place] [facility] [address] [id number] [place] [address] Jun, [facility] [place] [facility] [address] [id number] [place] [address] May, [facility] [place] [facility] [address] [id number] [place] [address] May, [facility] [place] [facility] [address] [id number] [place] [address] May, [facility] [place] [facility] [address] [id number] [place] [address] May, [facility] [place] [facility] [address] [id number] [place] [address] May, [facility] [place] [facility] [address] [facility] [id number] [place] [address] May, [facility] [place] [facility] [address] [id number] [place] [address] Apr, [facility] [place] [facility] [address] [id number] [place] [address] Apr, [facility] [place] [facility] [address] [id number] [place] [address] Mar, [facility] [place] [facility] [address] [id number] [place] [address] Mar, [facility] [place] [facility] [address] [id number] [place] [address] Mar, [facility] [place] [facility] [address] [id number] [place] [address] Mar, [facility] [place] [facility] [address] [id number] [place] [address] Mar, [facility] [place] [facility] [address] [address] [id number] [place] [address] Mar, [facility] [place] [facility] [address] [id number] [place] [address] Jan, [facility] [place] [facility] [address] [id number] [place] [address] Jan, [facility] [place] [facility] [address] [id number] [place] [address]598 Jan, [facility] [place] [facility] [address] [id number] [place] [address] Jan, [facility] [place] [facility] [address] [id number] [place] [address] 9448 Jan, [facility] [place] [facility] [address] [id number] [place] [address] 9280 Jan, [facility] [place] [facility] [address] [id number] [place] [address] Dec, [facility] [place] [facility] [address] [id number] [place] [address]158 Dec, [facility] [place] [facility] [address] [id number] [place] [address]270 Dec, [facility] [place] [facility] [address] [id number] [place] [address] 4546 Dec, [facility] [place] [facility] [address] [id number] [place] [address] 2709 Dec, [facility] [place] [facility] [address] [id number] [place] [address] 8650 Dec, [facility] [place] [facility] [address] [id number] [place] [address] Dec, [facility] [place] [facility] [address] [id number] [place] [address] 2120 Dec, [facility] [place] [facility] [address] [id number] [place] [address] 7023 Dec, [facility] [place] [facility] [address] [id number] [place] [address] 4693 Dec, [facility] [place] [facility] [address] [id number] [place] [address]- 0600 Dec, [facility] [place] [facility] [address] [id number] [place] [address]- 6927 Dec, [facility] [place] [facility] [address] [id number] [place] [address] 3263 Dec, [facility] [place] [facility] [address] [id number] [place] [address] 0617 Dec, [facility] [place] [facility] [address] [id number] [place] [address] 9904 Dec, [facility] [place] [facility] [address] [id number] [place] [address] 9557 Dec, [facility] [place] [facility] [address] [id number] [place] [address] 8246 October, [facility] [place] [facility] [address] [id number] [place] [address] 7250 October, [facility] [place] [facility] [address] [id number] [place] [address]- 2463 October, [facility] [place] [facility] [address] [id number] [place] [address] 0343 October, [facility] [place] [facility] [address] [id number] [place] [address]- 1433 October, [facility] [place] [facility] [address] [id number] [place] [address] 5235 October, [facility] [place] [facility] [address] [id number] [place] [address] 2243 Oct, [facility] [address] [id number] [place] [address] 4113 Oct, [facility] [place] [facility] [address] [id number] [place] [address] 7[address] Oct, [facility] [address] [id number] [place] [address] 4[address] Oct, [facility] [place] [facility] [address] [id number] [place] [address] 4693 Oct, [facility] [address] [id number] [place] [address] 5073 Oct, [facility] [place] [facility] [address] [id number] [place] [address] 2229 Aug, [facility] [place] [facility] [address] [id number] [place] [address] 5036 Aug, [facility] [address] [id number] [place] [address] 4797 Aug, [facility] [place] [facility] [address] [id number] [place] [address] 3420 Aug, [facility] [address] [id number] [place] [address] 4[address] Jul, [facility] [place] [facility] [address] [id number] [place] [address] 61[address] Jul, [facility] [place] [facility] [address] [id number] [place] [address] 2708 Jul, [facility] [place] [facility] [address] [id number] [place] [address] Jul, [facility] [place] [facility] [address] [id number] [place] [address] 4142 Jun, [facility] [place] [facility] [address] [id number] [place] [address] 3125 Jun, [facility] [address] [id number] [place] [address] 7448 Jun, [facility] [place] [facility] [address] [id number] [place] [address]- 8467 Jun, [facility] [place] [facility] [address] [id number] [place] [address]- 3857 Jun, [facility] [place] [facility] [address] [id number] [place] [address]- 6420 Jun, [facility] [place] [facility] [address] [id number] [place] [address]- 1586 Jun, [facility] [place] [facility] [address] [id number] [place] [address]- 0448 Jun, [facility] [place] [facility] [address] [id number] [place] [address]- 8165 Jun, [facility] [place] [facility] [address] [id number] [place] [address]- 2062 Jun, [facility] [place] [facility] [address] [id number] [place] [address]- 3125 Jun, [facility] [place] [facility] [address] [id number] [address] May, [facility] [place] [facility] [address] [id number] [address] 9376 May, [facility] [place] [facility] [address] [id number] [address]- 0884 May, [facility] [place] [facility] [address] [id number] [place] [address]- 1568 May, [facility] [place] [facility] [address] [id number] [address] 4316 May, [facility] [place] [facility] [address] [facility] [id number] [address] 06 May, 2013 [facility] [place] [facility] [address] [id number] [place] [address]- 5614 06 May, 2013 [facility] [place] [facility] [address] [id number] [place] [address]- 9214 30 Apr, 2013 [facility] [place] [facility] [address] [id number] [place] [address]- 9550 30 Apr, 2013 [facility] [place] [facility] [address] [id number] [place] [address]- 9504 18 Apr, 2013 [facility] [place] [facility] [address] [id number] [place] [address]- 4883 02 Apr, 2013 [facility] [place] [facility] [address] [id number] [place] [address]- 7937 27 Mar, 2013 [facility] [place] [facility] [address] [id number] [place] [address]- 7719 26 Mar, 2012 [facility] [place] [facility] [address] [id number] [place] [address]- 0266 26 Mar, 2012 [facility] [place] [facility] [address] [id number] [place] [address]- 7691 23 Mar, 2012 [facility] [place] [facility] [address] [id number] [place] [address]- 3651 04 Mar, 2013 [facility] [place] [facility] [address] [id number] [place] [address]- 1258 03 Mar, 2013 [facility] [place] [facility] [address] [id number] [place] [address]- 1571 30 Jan, 2013 [facility] [place] [facility] [address] [id number] [place] [address]- 2544 28 Jan, 2013 [facility] [place] [facility] [address] [id number] [place] [address]- 0905 Jan, [facility] [place] [facility] [address] [id number] [place] [address]- 4727 14 Jan, 2013 [facility] [place] [facility] [address] [id number] [place] [address]- 9841 06 Jan, 2013 [facility] [place] [facility] [address] [id number] [place] [address]- 9171 Dec, [facility] [address] [id number] [place] [address]- 5747 Dec, [facility] [place] [facility] [address] [id number] [place] [address]- 5778 Dec, [facility] [address] [id number] [place] [address]- 5213 Dec, [facility] [address] [id number] [place] [address]- 5128 Dec, [facility] [place] [facility] [address] [id number] [place] [address]- 7007 Dec, [facility] [address] [id number] [place] [address]- 5293 Dec, [facility] [address] [id number] [place] [address]- 0823 Dec, [facility] [address] [id number] [place] [address]- 0590 October, [facility] [address] [id number] [place] [address]- 5781 October, [facility] [place] [facility] [address] [id number] [place] [address]- 1252 October, [facility] [place] [facility] [address] [id number] [place] [address]- 5278 24 Oct, 2012 [facility] [place] [facility] [address] [id number] [place] [address]- 8033 18 Oct, 2012 [facility] [place] [facility] [address] [id number] [place] [address]- 4742 17 Oct, 2012 [facility] [place] [facility] [address] [id number] [place] [address]- 4760 02 Oct, 2012 [facility] [place] [facility] [address] [id number] [address]- 6686 Aug, [facility] [place] [facility] [address] [id number] [place] [address]- 2097 Aug, [facility] [place] [facility] [address] [id number] [place] [address]- 0597 Aug, [facility] [place] [facility] [address] [id number] [place] [address]- 6225 Jul, [facility] [place] [facility] [address] [id number] [place] [address]- 8658 May, [facility] [place] [facility] [address] [id number] [place] [address]- 3214 May, [facility] [place] [facility] [address] [id number] [place] [address]- 6584 Apr, [facility] [place] [facility] [address] [id number] [place] [address]- 0577 Apr, [facility] [place] [facility] [address] [id number][place] [address]- 0913 Apr, [facility] [place] [facility] [address] [id number] [place] [address]- 6807 Apr, [facility] [place] [facility] [address] [id number] [place] [address]- 9264 Apr, [facility] [place] [facility] [address] [id number][place] [address]- 7362 Apr, [facility] [place] [facility] [address] [id number][place] [address]- 2837 Apr, [facility] [place] [facility] [address] [id number] [place] [address]- 3014 Apr, [facility] [place] [facility] [address] [facility] [id number] [place] [address]- 9338 Apr, [facility] [place] [facility] [address] [id number] [place] [address]- 6532 Apr, [facility] [place] [facility] [address] [id number] [place] [address]- 9125 14 Apr, 2012 [facility] [address] [id number] [place] [address]- 8580 Apr, [facility] [address] [id number] [place] [address] 2546 Mar, [facility] [address] [id number] [place] [address]- 0056 Jan, [facility] [address] [id number] [place] [address]- 4954 Dec, [facility] [address] [id number] [place] [address]- 1840 October, [facility] [address] [id number] [place] [address]- 8446 Oct, [facility] [address] [id number] [place] [address]- 6496 Oct, [facility] [address] [id number] [place] [address]- 7551 Oct, [facility] [address] [id number] [place] [address]- 9736 Aug, [facility] [address] [facility] [id number] [place] [address]- 7926 Aug, [facility] [place] [facility] [address] [id number] [place] [address]- 5156 Aug, [facility] [address] [id number] [place] [address]- 2546 Aug, [facility] [place] [facility] [address] [id number] [place] [address]- 8386 Aug, [facility] [place] [facility] [address] [facility] [id number] [place] [address]- 2546 Aug, [facility] [place] [facility] [address] [facility] [id number] [place] [address]- 6136 07 Jun, 2011 [facility] [address] [facility] [id number] [address]- 5894 Apr, [facility] [address] [facility] [id number] [address]- 5454 Jun, [facility] [address] [facility] [id number] [address]- 5326 Jun, [facility] [address] [facility] [id number] [address]- 9273 May, [facility] [address] [facility] [id number] [address]- 5920 May, [facility] [id number] [address]- 6767 Apr, [facility] [address] [id number], [place] [address]- 9578 Apr, IMMUNIZATIONS No Known Immunizations SOCIAL HISTORY Never Assessed REASON FOR VISIT Lab (walk-in) PLAN OF CARE VITAL SIGNS MEDICATIONS No Known Medications RESULTS No Results PROCEDURES Procedure Date Ordered Result Body Site LIPID PANEL Aug 23, 2017 COMPREHEN METABOLIC PANEL Aug 23, 2017 ASSAY THYROID STIM HORMONE Aug 23, 2017 COMPLETE CBC W/AUTO DIFF WBC Aug 23, 2017 VENIPUNCT, ROUTINE* Aug 23, 2017 INSTRUCTIONS MEDICATIONS ADMINISTERED No Known Medications [...] History see above surgeries Hospitalization History Anaphylactic shock-[facility] 08/23/16
--- OUTSIDE RECORDS SUMMARY | 2018-07-18 07:39 | XMS REPORT ---
Author BALJEET Nolasco [facility] eClinical[employer] Address Unknown Phone Unavailable Care Team Providers Care Osha Inspector Name Role Phone BALJEET WILKINS CP Unavailable Allergies No Known Allergies Problems Problem Type Condition Code Onset Dates Condition Status Problem Major depressive disorder, recurrent episode, mild F33.0 Active Problem Migraine with aura and without status migrainosus, not intractable G43.109 Active Problem Uncomplicated severe persistent asthma J45.50 Active Assessment Allergic rhinitis due to pollen J30.1 Active Problem Vitamin D deficiency E55.9 Active Problem Encounter for dental examination Z01.20 Active Problem Allergic rhinitis due to pollen J30.1 Active Problem Asthma exacerbation J45.901 Active Problem Gastroesophageal reflux disease without esophagitis K21.9 Active Problem PCOS (polycystic ovarian syndrome) E28.2 Active Problem ADD (attention deficit disorder) F90.0 Active Problem Acquired hypothyroidism E03.9 Active Medications No Known Medications Procedures Procedure Coding System Code Date IMMUNOTHERAPY INJECTIONS CPT-4 82362 Apr 28, 2016 Results No Known Results Summary Purpose eClinicalWorks Submission
--- OUTSIDE RECORDS SUMMARY | 2018-07-18 07:39 | XMS REPORT ---
Author Author BRANDY SAGAR Organization [facility] Address [address] [place] [address] Care Team Providers Care Calibrator Barometers Name Role Phone BRANDYTEZ HOYTHANY Unavailable PROBLEMS Type Condition ICD9-CM Code YHY03-VL Code Onset Dates Condition Status SNOMED Code Problem ADD (attention deficit disorder) F90.0 Active 540938478 Problem Major depressive disorder, recurrent episode, mild F33.0 Active 067478616 Problem Allergic rhinitis due to pollen J30.1 Active 40041826 Problem Current chronic use of inhaled steroid Z79.51 Active 285710192 Problem Asthma exacerbation J45.901 Active 633005963 Problem Pure hypercholesterolemia E78.00 Active 831620016 Problem PCOS (polycystic ovarian syndrome) E28.2 Active 54292313 Problem Multiple food allergies Z91.018 Active 436082687 Problem Dental examination Z01.20 Active 482283827 Problem Uncomplicated severe persistent asthma J45.50 Active 245128069 Problem Gastroesophageal reflux disease without esophagitis K21.9 Active 954432516 Problem Migraine with aura and without status migrainosus, not intractable G43.109 Active 1315790 Problem Vitamin D deficiency E55.9 Active 42390102 Problem Acquired hypothyroidism E03.9 Active 386452193 ALLERGIES No Information SOCIAL HISTORY Never Assessed PLAN OF CARE Activity Details Follow Up 1 Week Reason:nurse visit BP check VITAL SIGNS Height 68 in 2016-09-01 Temperature 98.3 degrees Fahrenheit 2016-09-01 Heart Rate 101 bpm 2016-09-01 Respiratory Rate 18 2016-09-01 Blood pressure systolic 142 mmHg 2016-09-01 Blood pressure diastolic 99 mmHg 2016-09-01 MEDICATIONS Unknown Medications RESULTS No Results PROCEDURES [...] History see above surgeries Hospitalization History Anaphylactic shock-[facility] 08/23/16
--- OUTSIDE RECORDS SUMMARY | 2018-07-18 07:39 | XMS REPORT ---
Author Author BRANDY SAGAR [facility] Address [address] [place] [address] Care Team Providers Care Surgical Dental Assistant Name Role Phone TEZ NAVAHANY Unavailable PROBLEMS Type Condition ICD9-CM Code OGU54-OI Code Onset Dates Condition Status SNOMED Code Problem Migraine with aura and without status migrainosus, not intractable G43.109 Active 9693551 Problem PCOS (polycystic ovarian syndrome) E28.2 Active 05537963 Problem Uncomplicated severe persistent asthma J45.50 Active 269995618 Problem Severe persistent asthma with exacerbation J45.51 Active 060596934 Problem Other elevated white blood cell (WBC) count D72.828 Active 884749143 Problem Multiple food allergies Z91.018 Active 137365569 Problem Pure hypercholesterolemia E78.00 Active 536243029 Problem Current chronic use of inhaled steroid Z79.51 Active 470435695 Problem Asthma exacerbation J45.901 Active 500305865 Problem ADD (attention deficit disorder) F90.0 Active 226713468 Problem Allergic rhinitis due to pollen J30.1 Active 40021726 Problem Vitamin D deficiency E55.9 Active 68051072 Problem Major depressive disorder, recurrent episode, mild F33.0 Active 470162549 Problem Acquired hypothyroidism E03.9 Active 418459861 Problem Gastroesophageal reflux disease without esophagitis K21.9 Active 224372821 ALLERGIES No Information ENCOUNTERS Encounter Location Date Diagnosis [facility] [id number] [address] Dec, [facility] [id number] [place] [address] 74332- 4124 October, Allergic rhinitis due to pollen J30.1 [facility] [address] [address] Oct, [facility] [id number] [place] [address] 94592- 9474 Oct, Allergic rhinitis due to pollen J30.1 [place] [address] 06659- 3406 Oct, [place] [address] 53096- 7271 Oct, Allergic rhinitis due to pollen J30.1 [place] [address] 53776- 1582 Oct, Severe persistent asthma with exacerbation J45.51 and Pneumonia due to Haemophilus influenzae, unspecified laterality, unspecified part of lung J14 [place] [address] 66402- 1991 Oct, ADD (attention deficit disorder) F90.0 [place] [address] 99253- 9744 Aug, Haemophilus influenzae infection A49.2 [place] [address] 09256- 4564 Aug, Cough productive of purulent sputum R05 [place] [address] 38689- 7857 Aug, [place] [address] 21002- 4977 Aug, Pulmonary congestion R09.89 [place] [address] 92197- 1868 Aug, Severe persistent asthma with exacerbation J45.51 ; Hiatal hernia K44.9 and Gastroesophageal reflux disease without esophagitis K21.9 [place] [address] 33803- 6234 Aug, Other elevated white blood cell (WBC) count D72.828 [place] [address] 75366- 1853 Aug, Uncomplicated severe persistent asthma J45.50 [place] [address] 65471- 9613 Aug, Pure hypercholesterolemia E78.00 ; Uncomplicated severe persistent asthma J45.50 and Acquired hypothyroidism E03.9 [place] [address] 83368- 8267 Aug, Acquired hypothyroidism E03.9 ; Pure hypercholesterolemia E78.00 and Uncomplicated severe persistent asthma J45.50 [place] [address] 81989- 1862 Aug, Allergic rhinitis due to pollen J30.1 [place] [address] 936247- 7078 Aug, Allergic rhinitis due to pollen J30.1 [place] [address] 42770- 2043 Aug, [place] [address] [id number] Jul, Pharyngitis, unspecified etiology J02.9 and Lymphadenopathy R59.1 [place] [address] 34865- 2673 Jul, ADD (attention deficit disorder) F90.0 [place] [address] 10786- 1300 Jul, Allergic rhinitis due to pollen J30.1 [place] [address] 68965- 9594 Jul, Dental examination Z01.20 [place] [address] 39758- 1934 Jun, Cough productive of purulent sputum R05 [place] [address] 40586- 0125 Jun, Allergic rhinitis due to pollen J30.1 [place] [address] 79237- 7005 Jun, [place] [address] [place] [address] 03354- 7421 Jun, Allergic rhinitis due to pollen J30.1 [place] [id number] [place] [address] 07102- 0093 Jun, Allergic rhinitis due to pollen J30.1 [place] [id number] [place] [address] 71878- 3380 May, Allergic rhinitis due to pollen J30.1 [place] [id number] [place] [address] 22090- 3900 May, Pneumonia due to Haemophilus influenzae, unspecified laterality, unspecified part of lung J14 [place] [id number] [place] [address] 01905- 4639 May, Allergic rhinitis due to pollen J30.1 [place] [id number] [place] [address] 91021- 9533 May, Other adverse food reactions, not elsewhere classified, initial encounter T78.1XXA and Pneumonia due to Haemophilus influenzae, unspecified laterality, unspecified part of lung J14 [place] [id number] [place] [address] 76783- 3676 May, Pneumonia due to Haemophilus influenzae, unspecified laterality, unspecified part of lung J14 [place] [id number] [place] [address] 26986- 1122 May, Multiple food allergies Z91.018 ; Uncomplicated severe persistent asthma J45.50 ; Cough productive of purulent sputum R05 and Uses central nervous system stimulants F15.90 [place] [id number] [place] [address] 89354- 0871 Apr, Allergic rhinitis due to pollen J30.1 [place] [id number] [place] [address] 16497- 1175 Apr, Allergic rhinitis due to pollen J30.1 [place] [address] [place] [address]- 2711 Apr, Allergic rhinitis due to pollen J30.1 [place] [address] 78172- 4936 Apr, ADD (attention deficit disorder) F90.0 [place] [id number] [place] [address] 60405- 2941 28 Mar, 2017 Allergic rhinitis due to pollen J30.1 [place] [address] 38595- 7805 21 Mar, 2017 Encounter for immunization Z23 [place] [address] 19192- 8502 19 Mar, 2017 [place] [address] 08919- 5821 14 Mar, 2017 Allergic rhinitis due to pollen J30.1 [place] [address] 47130- 2364 07 Mar, 2017 Allergic rhinitis due to pollen J30.1 [place] [id number] [place] [address] 83258- 2660 Jan, Allergic rhinitis due to pollen J30.1 [place] [id number] [place] [address] 87011- 7126 Jan, Allergic rhinitis due to pollen J30.1 [place] [id number] [place] [address] 89286- 1407 Dec, Uncomplicated severe persistent asthma J45.50 [place] [id number] [place] [address] 32087- 4373 Dec, Allergic rhinitis due to pollen J30.1 [place] [id number] [place] [address] 00539- 1256 Dec, Allergic rhinitis due to pollen J30.1 [place] [id number] [place] [address] 63937- 6628 Dec, Allergic rhinitis due to pollen J30.1 [place] [address] [place] [address] 79581- 1891 Dec, ADD (attention deficit disorder) F90.0 [place] [id number] [place] [address] 63550- 9388 Dec, Allergic rhinitis due to pollen J30.1 [place] [id number] [place] [address] 27621- 0935 Dec, Visit for TB skin test Z11.1 and Screening for tuberculosis Z11.1 [place] [id number] [place] [address] 57310- 0493 Dec, Uncomplicated severe persistent asthma J45.50 ; Palpitations R00.2 ; Pericardial effusion (noninflammatory) I31.3 and Chest discomfort R07.89 [place] [id number] [place] [address] 86817- 8111 Dec, Allergic rhinitis due to pollen J30.1 [place] [id number] [place] [address] 73145- 9484 Dec, Chronic cough R05 [place] [id number] [place] [address] 21990- 5038 Dec, [place] [id number] [place] [address] 96945- 8498 Dec, Allergic rhinitis due to pollen J30.1 [place] [id number] [place] [address] 18937- 5146 Dec, Allergic rhinitis due to pollen J30.1 [place] [id number] [place] [address] 16650- 4321 Dec, Chronic cough R05 [place] [id number] [place] [address] 09089- 2056 October, Allergic rhinitis due to pollen J30.1 [place] [id number] [place] [address] 90880- 6117 October, Allergic rhinitis due to pollen J30.1 [place] [id number] [place] [address] 00501- 0370 October, [place] [id number] [place] [address] 74200- 4207 October, Asthma exacerbation J45.901 [place] [id number] [place] [address] 30208- 1536 October, Asthma exacerbation J45.901 and Current chronic use of inhaled steroid Z79.51 [place] [id number] [place] [address] 65117- 0832 October, Uncomplicated severe persistent asthma J45.50 [place] [id number] [place] [address] 28261- 6560 October, Allergic rhinitis due to pollen J30.1 [place] [id number] [place] [address] 41117- 5108 Oct, [place] [id number] [place] [address] 93119- 3924 Oct, Asthma exacerbation J45.901 and Sputum production R05 [place] [id number] [place] [address] 42095- 7122 Oct, Asthma exacerbation J45.901 [place] [id number] [place] [address] 98794- 8799 Oct, ADD (attention deficit disorder) F90.0 [place] [id number] [place] [address] 06393- 7044 Oct, ADD (attention deficit disorder) F90.0 [place] [id number] [place] [address] 28298- 7473 Aug, Allergic rhinitis due to pollen J30.1 [place] [id number] [place] [address] 30571- 4731 Aug, Atypical pneumonia J18.9 [place] [id number] [place] [address] 72759- 8370 Aug, Allergic rhinitis due to pollen J30.1 [facility] [address] 32399- 8066 Aug, Acquired hypothyroidism E03.9 [place] [address] 89184- 8702 Aug, Multiple food allergies Z91.018 ; Elevated blood pressure reading R03.0 and Anaphylaxis, subsequent encounter T78.2XXD [place] [address] [id number] Aug, [place] [place] [address] 37565- 5175 Aug, Anaphylaxis, initial encounter T78.2XXA [place] [address] 31461- 6163 Aug, Allergic rhinitis due to pollen J30.1 [place] [address] 04572- 2704 Aug, Dental examination Z01.20 [place] [address] 37174- 4936 Aug, Allergic rhinitis due to pollen J30.1 [place] [address] 02623- 6916 Aug, Acquired hypothyroidism E03.9 and Pure hypercholesterolemia E78.00 [place] [address] 39887- 9741 Aug, ADD (attention deficit disorder) F90.0 ; Acquired hypothyroidism E03.9 and Pure hypercholesterolemia E78.00 [place] [address] 82333- 5331 Aug, Asthma exacerbation J45.901 [place] [address] 46685- 2138 Jul, Allergic rhinitis due to pollen J30.1 [facility] [address] [address]- 0095 Jul, Allergic rhinitis due to pollen J30.1 [facility] [address] [address]- 6670 Jul, [facility] [id number] [place] [address] 71001- 7789 Jul, Allergic rhinitis due to pollen J30.1 [facility] [address] [place] [address] 58840- 9908 Jul, Other usp (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 and ADD ( attention deficit disorder) F90.0 [place] [id number] [place] [address] 44713- 6456 Jul, 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 and ADD ( attention deficit disorder) F90.0 [facility] [address] [address]- 6259 Jul, [facility] [id number] [place] [address] 85170- 9638 Jun, Allergic rhinitis due to pollen J30.1 [facility] [address] [address]- 8877 Jun, Allergic rhinitis due to pollen J30.1 [facility] [address] [address]- 8124 Jun, [facility] [address] [place] [address] 91991- 9108 May, Allergic rhinitis due to pollen J30.1 [facility] [address] [address]- 6336 May, Allergic rhinitis due to pollen J30.1 [facility] [address] [address]- 9212 Apr, Allergic rhinitis due to pollen J30.1 [place] [id number] [place] [address] 12266- 9900 Apr, Allergic rhinitis due to pollen J30.1 [place] [id number] [place] [address] 16521- 3842 Apr, Encounter for immunization Z23 [place] [address] 64436- 2080 Apr, [place] [id number] [place] [address] 61475- 2790 Mar, Allergic rhinitis due to pollen J30.1 [place] [address] 76951- 3465 Mar, Multiple allergies Z88.9 [place] [address] 10344- 9417 Mar, Candidal vaginitis B37.3 [place] [address] 28319- 0629 Mar, Allergic rhinitis due to pollen J30.1 [place] [address] 98329- 5213 Jan, Asthma exacerbation J45.901 ; Fatigue, unspecified type R53.83 and Community acquired pneumonia J18.9 [facility] [id number] [place] [address] [id number] Jan, Encounter for dental examination Z01.20 [place] [id number] [place] [address] 98422- 2923 Jan, Allergic rhinitis due to pollen J30.1 [place] [address] 56753- 2099 Dec, Allergic rhinitis due to pollen J30.1 [place] [id number] [place] [address] 89653- 9451 Dec, [place] [address] [place] [address]- 7651 Dec, Allergic rhinitis due to pollen J30.1 [facility] [address] [place] [address] 02219- 5308 Dec, [facility] [address] [place] [address] 40185- 4109 Dec, [facility] [id number] [place] [address] 29025- 2838 Dec, [facility] [id number] [place] [address] 33225- 2464 Dec, Allergic rhinitis due to pollen J30.1 [facility] [id number] [place] [address] 78800- 4876 Dec, [facility] [id number] [place] [address] 54503- 5600 Dec, [facility] [id number] [place] [address] 16283- 6228 Dec, Allergic rhinitis due to pollen J30.1 [facility] [address] [place] [address] 11272- 4202 October, Allergic rhinitis due to pollen J30.1 [facility] [address] [place] [address] 59652- 7228 October, Allergic rhinitis due to pollen J30.1 [facility] [address] [address]- 0568 October, [facility] [address] [place] [address] 46553- 3237 October, [facility] [id number] [place] [address] 80437- 5781 October, ADD (attention deficit disorder) F90.0 ; Major depressive disorder, recurrent episode, mild F33.0 and Uncomplicated severe persistent asthma J45.50 [facility] [id number] [place] [address] 13163- 0661 Oct, Allergic rhinitis due to pollen J30.1 [facility] [id number] [place] [address] 89996- 8438 Oct, ADD (attention deficit disorder) F90.0 [facility] [id number] [place] [address] 13888- 2220 Oct, Allergic rhinitis due to pollen 477.0 [facility] [id number] [place] [address] 18350- 8201 Aug, Allergic rhinitis due to pollen 477.0 [place] [id number] [place] [address] 30718- 6863 Aug, 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 [place] [id number] [place] [address] 90076- 5959 Aug, [facility] [id number] [place] [address] 82413- 6303 Aug, Allergic rhinitis due to pollen 477.0 [facility] [id number] [place] [address] 87301- 9797 Aug, Allergic rhinitis due to pollen 477.0 [facility] [id number] [place] [address] 89578- 3440 Aug, Allergic rhinitis due to pollen 477.0 [facility] [id number] [place] [address] 31282- 7664 Aug, Exposure to influenza Z20.828 [facility] [id number] [place] [address] [id number] Aug, Encounter for dental examination and cleaning without abnormal findings Z01.20 [facility] [id number] [place] [address] 42958- 6970 Aug, Allergic rhinitis due to pollen J30.1 [facility] [id number] [place] [address] 35945- 4309 Aug, [place] [address] [place] [address] 77718- 0275 Aug, 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 [place] [id number] [place] [address] 47174- 1438 Jul, [place] [id number] [place] [address] 25957- 1615 Jul, Allergic rhinitis due to pollen 477.0 [place] [id number] [place] [address] 54770- 4633 Jul, [place] [address] 99186- 7631 Jul, Allergic rhinitis due to pollen 477.0 [place] [address] 60730- 6254 Jun, ADD (attention deficit disorder) F90.0 ; Acquired hypothyroidism E03.9 ; PCOS (polycystic ovarian syndrome) E28.2 ; Polyarthralgia M25.50 and On stimulant medication Z79.899 [place] [address] 28109- 4170 Apr, Encounter for immunization Z23 [place] [address] 25659- 3127 16 Mar, 2015 Allergic rhinitis due to pollen 477.0 [place] [id number] [place] [address] 21062- 8387 14 Mar, 2015 Influenza vaccine administered V04.81 [place] [id number] [place] [address] 04900- 4862 Mar, [place] [address] 90966- 2610 Jan, Allergic rhinitis due to pollen 477.0 [place] [id number] [place] [address] 67315- 8264 Jan, Allergic rhinitis due to pollen 477.0 [place] [address] [facility] [id number] [address]- 0241 Jan, Allergic rhinitis due to pollen 477.0 [facility] [address] [id number] Jan, Dental examination V72.2 [facility] [id number] [place] [address]- 2193 Dec, Allergic rhinitis due to pollen 477.0 [facility] [id number] [place] [address]- 3254 October, [facility] [id number] [place] [address]- 7043 Oct, [facility] [address] [address]- 0519 Oct, [facility] [address] [address]- 3463 Aug, [facility] [address] [address]- 8838 Aug, [facility] [id number] [place] [address]- 9762 Aug, [facility] [address] [address]- 3869 Aug, [facility] [address] 7178 Aug, [facility] [address]- 5386 Aug, [facility] [id number] [place] [address]- 3904 Aug, [facility] [address] 4297 Aug, [facility] [address]- 0688 Jul, [facility] [place] [facility] [address] [id number] [place] [address]- 1352 Jul, [facility] [place] [facility] [address] [id number] [place] [address]- 2012 Jul, [facility] [place] [facility] [address] [id number] [place] [address] Jul, [facility] [place] [facility] [address] [id number] [place] [address] Jul, [facility] [place] [facility] [address] [id number] [place] [address] Jul, [facility] [place] [facility] [address] [id number] [place] [address] Jul, [facility] [place] [facility] [address] [id number] [place] [address] Jul, [facility] [place] [facility] [address] [id number] [place] [address] Jul, [facility] [place] [facility] [address] [id number] [place] [address] Jul, [facility] [place] [facility] [address] [id number] [address] Jul, [facility] [place] [facility] [address] [id number], [place] [address] Jun, [facility] [place] [facility] [address] [id number], [place] [address] Jun, [facility] [place] [facility] [address] [id number] [place] [address] Jun, [facility] [place] [facility] [address] [id number] [place] [address] Jun, [facility] [place] [facility] [address] [id number], [place] [address] Jun, [facility] [place] [facility] [address] [id number], [place] [address] Jun, [facility] [place] [facility] [address] [id number] [place] [address] May, [facility] [place] [facility] [address] [id number], [place] [address] May, [facility] [place] [facility] [address] [facility] [id number] [place] [address] May, [facility] [place] [facility] [address] [id number] [place] [address] May, [facility] [place] [facility] [address] [facility] [id number] [place] [address], [place] [address] May, [facility] [place] [facility] [address] [id number] [place] [address] May, [facility] [place] [facility] [address] [id number] [address] Apr, [facility] [place] [facility] [address] [id number] [place] [address] Apr, [facility] [place] [facility] [address] [facility] [id number] [place] [address] 4048 Mar, [facility] [place] [facility] [address] [facility] [id number] [place] [address] 30 Mar, 2014 [facility] [place] [facility] [address] [id number], [place] [address] 30 Mar, 2014 [facility] [place] [facility] [address] [id number], [place] [address] 254 30 Mar, 2014 [facility] [place] [facility] [address] [id number] [place] [address] 8398 Mar, [facility] [place] [facility] [address] [facility] [id number], [place] [address] Mar, [facility] [place] [facility] [address] [facility] [id number], [place] [address] Jan, [facility] [place] [facility] [address] [id number] [place] [address] Jan, [facility] [place] [facility] [address] [id number] [place] [address] Jan, [facility] [place] [facility] [address] [id number] [place] [address] 5736 Jan, [facility] [place] [facility] [address] [id number] [place] [address] 4620 Jan, [facility] [place] [facility] [address] [id number] [place] [address] 1436 Jan, [facility] [place] [facility] [address] [id number] [place] [address] 3527 Dec, [facility] [place] [facility] [address] [id number] [place] [address]- 9668 Dec, [facility] [place] [facility] [address] [id number] [place] [address] 4912 Dec, [facility] [place] [facility] [address] [id number] [place] [address] 3611 Dec, [facility] [place] [facility] [address] [id number] [place] [address] 9519 Dec, [facility] [place] [facility] [address] [id number] [place] [address]- 1570 Dec, [facility] [place] [facility] [address] [id number] [place] [address]- 6921 Dec, [facility] [place] [facility] [address] [id number] [place] [address] 9505 Dec, [facility] [place] [facility] [address] [id number] [place] [address]- 4438 Dec, [facility] [place] [facility] [address] [id number] [place] [address]- 5805 Dec, [facility] [place] [facility] [address] [id number] [place] [address]- 8276 Dec, [facility] [place] [facility] [address] [id number] [place] [address]- 2949 Dec, [facility] [place] [facility] [address] [id number] [place] [address]- 6845 Dec, [facility] [place] [facility] [address] [id number] [place] [address]- 4761 Dec, [facility] [place] [facility] [address] [id number] [place] [address]- 7088 Dec, [facility] [place] [facility] [address] [id number] [place] [address]- 7757 Dec, [facility] [place] [facility] [address] [id number] [place] [address] 8435 October, [facility] [place] [facility] [address] [id number] [place] [address]- 6934 October, [facility] [place] [facility] [address] [id number] [place] [address] 6355 October, [facility] [place] [facility] [address] [id number] [place] [address]- 2675 October, [facility] [place] [facility] [address] [id number] [place] [address]- 3845 October, [facility] [place] [facility] [address] [id number] [place] [address]- 5392 October, [facility] [place] [facility] [address] [id number] [place] [address]- 6353 Oct, [facility] [place] [facility] [address] [id number] [place] [address]- 0710 Oct, [facility] [place] [facility] [address] [id number] [place] [address]- 1345 Oct, [facility] [place] [facility] [address] [id number] [place] [address]- 0390 Oct, [facility] [place] [facility] [address] [id number] [place] [address]- 2866 Oct, [facility] [address] [id number] [place] [address]- 3166 Oct, [facility] [address] [id number] [place] [address]- 0403 Aug, [facility] [address] [id number] [place] [address]- 1759 Aug, [facility] [place] [facility] [address] [id number] [place] [address]- 5209 Aug, [facility] [address] [id number] [place] [address]- 1097 Aug, [facility] [address] [id number] [place] [address]- 2161 Jul, [facility] [address] [id number] [place] [address]- 2404 Jul, [facility] [address] [id number] [place] [address] 2473 Jul, [facility] [address] [id number] [place] [address]- 6873 Jul, [facility] [address] [id number] [place] [address]- 6473 Jun, [facility] [place] [facility] [address] [id number] [place] [address] 2546 31 Jun, 2013 [facility] [place] [facility] [address] [id number] [place] [address]- 0072 24 Jun, 2013 [facility] [place] [facility] [address] [id number] [place] [address]- 4756 24 Jun, 2013 [facility] [place] [facility] [address] [id number] [place] [address]- 5850 20 Jun, 2013 [facility] [place] [facility] [address] [id number] [place] [address] Jun, [facility] [place] [facility] [address] [id number] [place] [address]- 0849 Jun, [facility] [place] [facility] [address] [id number] [place] [address]- 9786 Jun, [facility] [place] [facility] [address] [id number] [place] [address]- 6231 Jun, [facility] [place] [facility] [address] [id number] [place] [address]- 5279 Jun, [facility] [place] [facility] [address] [id number] [place] [address]- 2481 Jun, [facility] [place] [facility] [address] [id number] [place] [address]- 4290 May, [facility] [place] [facility] [address] [id number] [place] [address]- 5696 May, [facility] [place] [facility] [address] [id number], [place] [address]- 6154 May, [facility] [place] [facility] [address] [id number] [place] [address]- 5900 May, [facility] [place] [facility] [address] [id number], [place] [address] 0150 May, [facility] [place] [facility] [address] [id number], [place] [address]- 4590 May, [facility] [place] [facility] [address] [id number], [place] [address]- 3177 May, [facility] [place] [facility] [address] [id number], [place] [address]- 3671 Apr, [facility] [place] [facility] [address] [id number], [place] [address]- 0292 Apr, [facility] [place] [facility] [address] [id number], [place] [address]- 6147 Apr, [facility] [place] [facility] [address] [id number], [place] [address]- 1606 Apr, [facility] [place] [facility] [address] [id number] [place] [address]- 4064 27 Mar, 2012 [facility] [place] [facility] [address] [id number] [place] [address] 2546 Mar, [facility] [place] [facility] [address] [id number] [place] [address]- 7016 Mar, [facility] [place] [facility] [address] [id number] [place] [address] 2540 Mar, [facility] [place] [facility] [address] [id number] [place] [address]- 6143 Mar, [facility] [place] [facility] [address] [id number] [place] [address]- 0672 Mar, [facility] [place] [facility] [address] [id number] [place] [address]- 6924 Jan, [facility] [place] [facility] [address] [id number] [place] [address]- 7836 Jan, [facility] [place] [facility] [address] [id number] [place] [address]- 0659 Jan, [facility] [place] [facility] [address] [id number] [place] [address]- 4850 Jan, [facility] [place] [facility] [address] [id number] [place] [address]- 3118 Jan, [facility] [place] [facility] [address] [id number] [place] [address]- 8134 Dec, [facility] [place] [facility] [address] [id number] [place] [address]- 6462 Dec, [facility] [place] [facility] [address] [id number] [place] [address]- 6658 Dec, [facility] [place] [facility] [address] [id number] [place] [address]- 8599 Dec, [facility] [place] [facility] [address] [id number] [place] [address]- 0523 Dec, [facility] [address] [id number] [place] [address]- 5311 Dec, [facility] [address] [id number] [place] [address]- 9364 Dec, [facility] [address] [id number] [place] [address]- 1383 Dec, [facility] [address] [id number] [place] [address]- 1125 October, [facility] [address] [id number] [place] [address]- 4565 October, [facility] [address] [id number] [place] [address]- 9198 October, [facility] [address] [id number] [place] [address]- 4691 Oct, [facility] [address] [id number] [place] [address]- 4689 Oct, [facility] [address] [id number] [place] [address]- 5337 Oct, [facility] [address] [id number] [place] [address]- 1628 Oct, [facility] [address] [id number] [place] [address]- 9280 Aug, [facility] [address] [id number] [place] [address]- 1186 Aug, [facility] [place] [facility] [address] [id number] [place] [address]- 7167 05 Aug, 2012 [facility] [place] [facility] [address] [id number] [place] [address]- 9253 Jul, [facility] [address] [id number] [place] [address]- 7122 May, [facility] [place] [facility] [address] [id number] [place] [address]- 5247 May, [facility] [place] [facility] [address] [id number] [place] [address]- 9525 Apr, [facility] [place] [facility] [address] [id number] [place] [address]- 1700 Apr, [facility] [place] [facility] [address] [id number] [place] [address]- 0827 Apr, [facility] [place] [facility] [address] [id number] [place] [address]- 9202 Apr, [facility] [place] [facility] [address] [id number] [place] [address]- 7370 Apr, [facility] [place] [facility] [address] [id number] [place] [address]- 3668 Apr, [facility] [place] [facility] [address] [id number], [place] [address]- 1883 Apr, [facility] [place] [facility] [address] [id number] [place] [address]- 3593 Apr, [facility] [place] [facility] [address] [id number], [place] [address]- 9695 Apr, [facility] [place] [facility] [address] [id number], [place] [address]- 8696 Apr, [facility] [place] [facility] [address] [id number], [place] [address]- 7254 14 Apr, 2012 [facility] [place] [facility] [address] [id number] [place] [address]- 3749 Apr, [facility] [place] [facility] [address] [id number], [place] [address]- 1550 Mar, [facility] [place] [facility] [address] [id number] [place]58 Jan, [facility] [place] [facility] [address] [id number] [place] [address]- 3268 Dec, [facility] [address] [id number] [place] [address]- 6586 October, [facility] [place] [facility] [address] [id number] [place] [address]- 8889 Oct, [facility] [place] [facility] [address] [id number] [place] [address]- 9570 Oct, [facility] [place] [facility] [address] [id number] [place] [address]- 5735 Oct, [facility] [place] [facility] [address] [id number] [place] [address]- 9896 Aug, [facility] [place] [facility] [address] [id number] [place] [address]- 9559 Aug, [facility] [address] [id number] [place] [address]- 8287 29 Aug, 2011 [facility] [place] [facility] [address] [id number] [place] [address]- 9880 16 Aug, 2011 [facility] [place] [facility] [id number] [place] [address]- 6858 Aug, [facility] [address] [facility] [id number] [place] [address]- 3118 Aug, [facility] [place] [facility] [address] [id number] [place] [address]- 2732 Jun, [facility] [place] [facility] [address] [id number] [place] [address]- 0757 Apr, [facility] [place] [facility] [address] [id number] [place] [address]- 2426 Jun, [facility] [place] [facility] [address] [id number] [place] [address]- 2546 Jun, [facility] [place] [facility] [address] [facility] [id number] [place] [address]- 7532 May, [facility] [address] [facility] [id number], [place] [address]- 1541 12 May, 2009 [facility] [address] [facility] [id number]- 9092 15 Apr, 2009 [facility] [address] [facility] [id number], [place] [address]- 0485 13 Apr, 2009 IMMUNIZATIONS No Known Immunizations SOCIAL HISTORY Never Assessed REASON FOR VISIT Continued symptoms PLAN OF CARE VITAL SIGNS MEDICATIONS Medication Instructions Dosage Frequency Start Date End Date Duration Status Zoloft 50 MG Orally Once a day 1 tablet 24h Active Ibuprofen 800 MG Orally every 8 hours 1 tablet 8h 30 days Active Levothyroxine Sodium 100 MCG Orally Once a day 1 tablet 24h 90 days Active MetFORMIN HCl ER 1000 mg Orally Once a day 1 tablet with evening meal 24h Active Magnesium Oxide 250 MG Orally Once a day 2 tablets 24h Active Albuterol Sulfate (2.5 MG/3ML) 0.083% Inhalation 4 times a day 3 ml as needed 6h Oct, Active Xyzal 5 mg 1 tablet by Oral route 2 times per day Mar, Active Symbicort 160-4.5 MCG/ACT Inhalation Twice a day 2 puffs 12h Jul, 90 days Active Concerta 54 MG Orally Once a day 1 tablet in the morning 24h Apr, 90 days Active Spiriva HandiHaler 18 MCG Active EpiPen 2-Leo 0.3 MG/0.3ML Injection PRN Active Ondansetron 8 MG DISSOLVE ONE TABLET UNDER TONGUE EVERY 6 HOURS NEEDED FOR NAUSEA OR VOMITING 20 Active Singulair 10 mg take 1 tablet by Oral route 1 time per day Apr, Active ProAir RespiClick 108 (90 Base) MCG/ACT Inhalation every 4 hrs 1 puff as needed 4h 90 Active Cryselle-28 0.3-30 MG-MCG Orally Daily for Three Weeks, 1 Week off 1 tablet Active Vitamin D 2000 UNIT Orally Once a day 1 tablet 24h Active Amoxicillin 500 mg Orally every 8 hrs 2 tablets 8h 13 May, 2017 May, 05 days Active pantoprazole 40 mg by oral route Once a day 1 tablet 24h Aug, Active Nasonex 50 mcg/actuation Nasally 2 times a day 1 spray in each nare 12h Jan, 90 days Active Ranitidine HCl 150 MG Orally Once [...] History see above surgeries Hospitalization History Anaphylactic shock-[facility] 08/23/16
[2018-07-18] MEDS ORDERED: KETAMINE HCL 100 MG/ML 5 ML VIAL ONE (07:40)
--- OUTSIDE RECORDS SUMMARY | 2018-07-18 07:40 | XMS REPORT ---
Author Author SAGAR NAVA Organization [facility] Address [address] [place] [address] Care Team Providers Care Logistics Operations Director Name Role Phone TEZ NAVAHANY Unavailable PROBLEMS Type Condition ICD9-CM Code QPD48-IH Code Onset Dates Condition Status SNOMED Code Problem ADD (attention deficit disorder) F90.0 Active 677683868 Problem Major depressive disorder, recurrent episode, mild F33.0 Active 058465293 Problem Allergic rhinitis due to pollen J30.1 Active 58902703 Problem Current chronic use of inhaled steroid Z79.51 Active 736052965 Problem Asthma exacerbation J45.901 Active 475633468 Problem Pure hypercholesterolemia E78.00 Active 483146018 Problem PCOS (polycystic ovarian syndrome) E28.2 Active 01595898 Problem Multiple food allergies Z91.018 Active 281235005 Problem Dental examination Z01.20 Active 991086902 Problem Uncomplicated severe persistent asthma J45.50 Active 135289504 Problem Gastroesophageal reflux disease without esophagitis K21.9 Active 367849360 Problem Migraine with aura and without status migrainosus, not intractable G43.109 Active 5154309 Problem Vitamin D deficiency E55.9 Active 50977130 Problem Acquired hypothyroidism E03.9 Active 842576685 ALLERGIES Unknown Allergies SOCIAL HISTORY No smoking Hx information available PLAN OF CARE VITAL SIGNS MEDICATIONS Medication Instructions Dosage Frequency Start Date End Date Duration Status Nasonex 50 mcg/actuation Nasally 2 times a day 1 spray in each nare 12h 25 Jan, 2014 90 days Active Concerta 54 MG Orally Once a day 1 tablet in the morning 24h 20 Jul, 2015 90 days Active RESULTS No Results PROCEDURES No Known procedures IMMUNIZATIONS No Known Immunizations
--- OUTSIDE RECORDS SUMMARY | 2018-07-18 07:40 | XMS REPORT ---
Author Author BRANDY SAGAR [facility] Address [address] [place] [address] Care Team Providers Care Title Searcher Name Role Phone BRANDYTEZ HOYTHANY Unavailable PROBLEMS Type Condition ICD9-CM Code CDZ73-MW Code Onset Dates Condition Status SNOMED Code Problem Migraine with aura and without status migrainosus, not intractable G43.109 Active 2252671 Problem PCOS (polycystic ovarian syndrome) E28.2 Active 56549294 Problem Uncomplicated severe persistent asthma J45.50 Active 641448070 Problem Severe persistent asthma with exacerbation J45.51 Active 120239959 Problem Other elevated white blood cell (WBC) count D72.828 Active 639388830 Problem Multiple food allergies Z91.018 Active 568382938 Problem Pure hypercholesterolemia E78.00 Active 715194549 Problem Current chronic use of inhaled steroid Z79.51 Active 480180006 Problem Asthma exacerbation J45.901 Active 182920317 Problem ADD (attention deficit disorder) F90.0 Active 189731254 Problem Allergic rhinitis due to pollen J30.1 Active 79286042 Problem Vitamin D deficiency E55.9 Active 38786734 Problem Major depressive disorder, recurrent episode, mild F33.0 Active 043706480 Problem Acquired hypothyroidism E03.9 Active 139675392 Problem Gastroesophageal reflux disease without esophagitis K21.9 Active 535204186 ALLERGIES No Information ENCOUNTERS Encounter Location Date Diagnosis [facility] [id number] [address] Dec, ADD (attention deficit disorder) F90.0 and Uncomplicated severe persistent asthma J45.50 [facility] [address] [address] Dec, Allergic rhinitis due to pollen J30.1 [facility] [id number] [place] [address] 68090- 9802 Dec, [place] [id number] [place] [address] 78078- 9530 October, Allergic rhinitis due to pollen J30.1 [place] [id number] [place] [address] 89117- 4637 October, Allergic rhinitis due to pollen J30.1 [place] [id number] [place] [address] 45720- 0604 Oct, [place] [id number] [place] [address] 26779- 6968 Oct, Allergic rhinitis due to pollen J30.1 [place] [id number] [place] [address] 22698- 2534 Oct, [place] [id number] [place] [address] 55376- 6106 Oct, Allergic rhinitis due to pollen J30.1 [place] [id number] [place] [address] 23665- 9940 Oct, Severe persistent asthma with exacerbation J45.51 and Pneumonia due to Haemophilus influenzae, unspecified laterality, unspecified part of lung J14 [place] [id number] [place] [address] 30658- 1649 Oct, ADD (attention deficit disorder) F90.0 [place] [id number] [place] [address] 97717- 5911 Aug, Haemophilus influenzae infection A49.2 [place] [id number] [place] [address] 03087- 6553 Aug, Cough productive of purulent sputum R05 [place] [id number] [place] [address] 39989- 9822 Aug, [place] [id number] [place] [address] 63935- 2859 Aug, Pulmonary congestion R09.89 [place] [id number] [place] [address] [address] Aug, Severe persistent asthma with exacerbation J45.51 ; Hiatal hernia K44.9 and Gastroesophageal reflux disease without esophagitis K21.9 [place] [id number]- 4509 Aug, Other elevated white blood cell (WBC) count D72.828 [place] [address]2472- 6356 Aug, Uncomplicated severe persistent asthma J45.[address] 695403- 1167 Aug, Pure hypercholesterolemia E78.00 ; Uncomplicated severe persistent asthma J45.50 and Acquired hypothyroidism E03.[address] 22425- 9012 Aug, Acquired hypothyroidism E03.9 ; Pure hypercholesterolemia E78.00 and Uncomplicated severe persistent asthma J45.[address] 42866- 1825 Aug, Allergic rhinitis due to pollen J30.[address] 80599- 1750 Aug, Allergic rhinitis due to pollen J30.[address] 27091- 1011 Aug, [place] [address] [id number] Jul, Pharyngitis, unspecified etiology J02.9 and Lymphadenopathy R59.[address] 66415- 3862 Jul, ADD (attention deficit disorder) F90.[address] 81783- 8273 Jul, Allergic rhinitis due to pollen J30.[address] [place] [address] 3[address] Jul, Dental examination Z01.20 [place] [address] 06355- 6208 Jun, Cough productive of purulent sputum R05 [place] [id number] [place] [address] 80253- 4641 Jun, Allergic rhinitis due to pollen J30.1 [place] [id number] [place] [address] 26534- 8793 Jun, [place] [id number] [place] [address] 66533- 4137 Jun, Allergic rhinitis due to pollen J30.1 [place] [id number] [place] [address] 29468- 1506 Jun, Allergic rhinitis due to pollen J30.1 [place] [id number] [place] [address] 69877- 5181 May, Allergic rhinitis due to pollen J30.1 [place] [id number] [place] [address] 24858- 6331 May, Pneumonia due to Haemophilus influenzae, unspecified laterality, unspecified part of lung J14 [place] [id number] [place] [address] 56549- 6931 May, Allergic rhinitis due to pollen J30.1 [place] [id number] [place] [address] 74056- 0933 May, Other adverse food reactions, not elsewhere classified, initial encounter T78.1XXA and Pneumonia due to Haemophilus influenzae, unspecified laterality, unspecified part of lung J14 [place] [id number] [place] [address] 16768- 6825 May, Pneumonia due to Haemophilus influenzae, unspecified laterality, unspecified part of lung J14 [place] [id number] [place] [address] 61098- 3667 May, Multiple food allergies Z91.018 ; Uncomplicated severe persistent asthma J45.50 ; Cough productive of purulent sputum R05 and Uses central nervous system stimulants F15.90 [place] [address] 76539- 2779 Apr, Allergic rhinitis due to pollen J30.1 [place] [address] 07340- 0750 Apr, Allergic rhinitis due to pollen J30.1 [place] [address] 22369- 1759 Apr, Allergic rhinitis due to pollen J30.1 [place] [address] 07774- 1285 Apr, ADD (attention deficit disorder) F90.0 [place] [address] 56190- 3084 28 Mar, 2017 Allergic rhinitis due to pollen J30.1 [place] [address] 39320- 3659 21 Mar, 2017 Encounter for immunization Z23 [place] [address] 27812- 3155 19 Mar, 2017 [place] [address] 02041- 3528 14 Mar, 2017 Allergic rhinitis due to pollen J30.1 [place] [address] 56247- 5667 07 Mar, 2017 Allergic rhinitis due to pollen J30.1 [place] [address] 03518- 0655 Jan, Allergic rhinitis due to pollen J30.1 [place] [address] 71684- 6192 Jan, Allergic rhinitis due to pollen J30.1 [place] [address] 53770- 5307 Dec, Uncomplicated severe persistent asthma J45.50 [place] [id number] [place] [address] 00332- 9634 Dec, Allergic rhinitis due to pollen J30.1 [place] [id number] [place] [address] 47231- 7217 Dec, Allergic rhinitis due to pollen J30.1 [place] [address] 66579- 9805 Dec, Allergic rhinitis due to pollen J30.1 [place] [id number] [place] [address] 58429- 0609 Dec, ADD (attention deficit disorder) F90.0 [place] [address] 07969- 5624 Dec, Allergic rhinitis due to pollen J30.1 [place] [id number] [place] [address] 20873- 5919 Dec, Visit for TB skin test Z11.1 and Screening for tuberculosis Z11.1 [place] [id number] [place] [address] 74092- 9301 Dec, Uncomplicated severe persistent asthma J45.50 ; Palpitations R00.2 ; Pericardial effusion (noninflammatory) I31.3 and Chest discomfort R07.89 [place] [id number] [place] [address] 27910- 7278 Dec, Allergic rhinitis due to pollen J30.1 [place] [id number] [place] [address] 84473- 6089 Dec, Chronic cough R05 [place] [id number] [place] [address] 64624- 9690 Dec, [place] [id number] [place] [address] 29703- 9759 Dec, Allergic rhinitis due to pollen J30.1 [place] [address] [place] [address]- 6447 Dec, Allergic rhinitis due to pollen J30.1 [facility] [id number] [place] [address] 23450- 1107 Dec, Chronic cough R05 [place] [id number] [place] [address] 23265- 4096 October, Allergic rhinitis due to pollen J30.1 [place] [id number] [place] [address] 86397- 0637 October, Allergic rhinitis due to pollen J30.1 [place] [id number] [place] [address] 92105- 4162 October, [place] [id number] [place] [address] 85580- 3433 October, Asthma exacerbation J45.901 [place] [address] 45028- 4864 October, Asthma exacerbation J45.901 and Current chronic use of inhaled steroid Z79.51 [place] [id number] [place] [address] 79486- 5821 October, Uncomplicated severe persistent asthma J45.50 [place] [id number] [place] [address] 90357- 6223 October, Allergic rhinitis due to pollen J30.1 [place] [id number] [place] [address] 19811- 6542 Oct, [place] [id number] [place] [address] 04674- 0660 Oct, Asthma exacerbation J45.901 and Sputum production R05 [place] [id number] [place] [address] 30157- 4981 Oct, Asthma exacerbation J45.901 [place] [id number] [place] [address] 33928- 0952 Oct, ADD (attention deficit disorder) F90.0 [place] [id number] [place] [address] 75875- 6500 Oct, ADD (attention deficit disorder) F90.0 [place] [address] 186147- 7897 Aug, Allergic rhinitis due to pollen J30.1 [place] [address] 17377- 5825 Aug, Atypical pneumonia J18.9 [place] [address] 39972- 6633 Aug, Allergic rhinitis due to pollen J30.1 [place] [address] 48348- 9193 Aug, Acquired hypothyroidism E03.9 [place] [address] 03182- 3408 Aug, Multiple food allergies Z91.018 ; Elevated blood pressure reading R03.0 and Anaphylaxis, subsequent encounter T78.2XXD [place] [address] [id number] Aug, [place] [address] 75785- 0812 Aug, Anaphylaxis, initial encounter T78.2XXA [place] [address] 66769- 7163 Aug, Allergic rhinitis due to pollen J30.1 [place] [address] 51055- 4373 Aug, Dental examination Z01.20 [place] [address] 75848- 5787 Aug, Allergic rhinitis due to pollen J30.1 [place] [address] 72596- 6067 Aug, Acquired hypothyroidism E03.9 and Pure hypercholesterolemia E78.00 [facility] [id number] [place] [address] 80154 2546 03 Aug, 2016 ADD (attention deficit disorder) F90.0 ; Acquired hypothyroidism E03.9 and Pure hypercholesterolemia E78.00 [facility] [id number] [place] [address] 48186 2546 02 Aug, 2016 Asthma exacerbation J45.901 [facility] [address] 38098- 2896 Jul, Allergic rhinitis due to pollen J30.1 [place] [id number] [place] [address] 12955- 7136 Jul, Allergic rhinitis due to pollen J30.1 [place] [id number] [place] [address] 43086- 7496 Jul, [place] [address] 31476- 2779 Jul, Allergic rhinitis due to pollen J30.1 [facility] [id number] [place] [address] 95495- 1378 Jul, Other jail (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 and ADD ( attention deficit disorder) F90.0 [place] [id number] [place] [address] 21912- 2181 Jul, Other jail (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 and ADD ( attention deficit disorder) F90.0 [facility] [id number] [place] [address] 39558 2547 Jul, [facility] [id number] [place] [address] 20497- 5976 Jun, Allergic rhinitis due to pollen J30.1 [facility] [id number] [place] [address] 08211- 9702 Jun, Allergic rhinitis due to pollen J30.1 [facility] [id number] [place] [address] 07111- 7297 Jun, [facility] [id number] [place] [address] 46020- 1129 May, Allergic rhinitis due to pollen J30.1 [facility] [id number] [place] [address] 38830- 8054 May, Allergic rhinitis due to pollen J30.1 [facility] [id number] [place] [address] 52159- 2296 Apr, Allergic rhinitis due to pollen J30.1 [facility] [id number] [place] [address] 88884- 5302 Apr, Allergic rhinitis due to pollen J30.1 [place] [id number] [place] [address] 73700- 7719 Apr, Encounter for immunization Z23 [place] [address] 48717- 1988 Apr, [place] [id number] [place] [address] 82141- 6789 Mar, Allergic rhinitis due to pollen J30.1 [place] [id number] [place] [address] 99023- 6979 Mar, Multiple allergies Z88.9 [place] [id number] [place] [address] 48527- 7946 Mar, Candidal vaginitis B37.3 [place] [id number] [place] [address] 05201- 8192 08 Mar, 2016 Allergic rhinitis due to pollen J30.1 [place] [id number] [place] [address] 74183- 2045 Jan, Asthma exacerbation J45.901 ; Fatigue, unspecified type R53.83 and Community acquired pneumonia J18.9 [facility] [id number] [place] [address] [phone] Jan, Encounter for dental examination Z01.20 [facility] [address] [address]- 3632 Jan, Allergic rhinitis due to pollen J30.1 [facility] [address] [address]- 4111 Dec, Allergic rhinitis due to pollen J30.1 [facility] [address] [address]- 9919 Dec, [facility] [id number] [address]- 2505 Dec, Allergic rhinitis due to pollen J30.1 [facility] [address] [address]- 2558 Dec, [facility] [id number] [address]- 1480 Dec, [facility] [address] [place] [address] 86529- 0490 Dec, [facility] [address] [address]- 8961 Dec, Allergic rhinitis due to pollen J30.1 [facility] [address] [address]- 8567 Dec, [facility] [address] [address]- 9081 Dec, [facility] [address] [address]- 9308 Dec, Allergic rhinitis due to pollen J30.1 [facility] [address] [address]- 2706 October, Allergic rhinitis due to pollen J30.1 [facility] [address] [address]- 8629 October, Allergic rhinitis due to pollen J30.1 [facility] [address] [place] [address] 81118- 7695 October, [place] [id number] [place] [address] 45781- 3681 October, [place] [id number] [place] [address] 27513- 1638 October, ADD (attention deficit disorder) F90.0 ; Major depressive disorder, recurrent episode, mild F33.0 and Uncomplicated severe persistent asthma J45.50 [place] [address] 45126- 6318 Oct, Allergic rhinitis due to pollen J30.1 [place] [address] 66047- 9844 Oct, ADD (attention deficit disorder) F90.0 [place] [id number] [place] [address] 28407- 2149 Oct, Allergic rhinitis due to pollen 477.0 [place] [id number] [place] [address] 18328- 5035 Aug, Allergic rhinitis due to pollen 477.0 [place] [id number] [place] [address] 28460- 0949 Aug, 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 [place] [id number] [place] [address] 34226- 1194 Aug, [place] [id number] [place] [address] 88889- 3936 Aug, Allergic rhinitis due to pollen 477.0 [place] [id number] [place] [address] 55344- 7212 Aug, Allergic rhinitis due to pollen 477.0 [place] [id number] [place] [address] 90235- 9175 Aug, Allergic rhinitis due to pollen 477.0 [place] [address] [id number] [place] [address] 11383- 6006 Aug, Exposure to influenza Z20.828 [facility] [address] [place] [address] [id number] Aug, Encounter for dental examination and cleaning without abnormal findings Z01.20 [facility] [id number] [place] [address] 76032- 4691 18 Aug, 2015 Allergic rhinitis due to pollen J30.1 [place] [address] 44880- 3629 Aug, [place] [address] 54265- 9477 Aug, 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 [place] [address] 42676- 9932 Jul, [place] [address] 29720- 4189 Jul, Allergic rhinitis due to pollen 477.0 [place] [id number] [place] [address] 25637- 7255 Jul, [place] [address] 23313- 3458 Jul, Allergic rhinitis due to pollen 477.0 [place] [id number] [place] [address] 40201- 5248 Jun, ADD (attention deficit disorder) F90.0 ; Acquired hypothyroidism E03.9 ; PCOS (polycystic ovarian syndrome) E28.2 ; Polyarthralgia M25.50 and On stimulant medication Z79.899 [place] [id number] [place] [address] 22830- 9860 Apr, Encounter for immunization Z23 [facility] [id number] [place] [address] 71848- 1271 16 Mar, 2015 Allergic rhinitis due to pollen 477.0 [place] [address] 90244- 1273 Mar, Influenza vaccine administered V04.81 [facility] [address] [place] [address] 42340- 3769 Mar, [facility] [id number] [place] [address] 096352- 9429 Jan, Allergic rhinitis due to pollen 477.0 [facility] [id number] [place] [address] 581150- 4045 Jan, Allergic rhinitis due to pollen 477.0 [facility] [address] [place] [address] 686714- 3780 Jan, Allergic rhinitis due to pollen 477.0 [facility] [id number] [place] [address] [id number] Jan, Dental examination V72.2 [facility] [id number] [place] [address] 58418- 3895 Dec, Allergic rhinitis due to pollen 477.0 [facility] [address] [place] [address] 86055- 7538 October, [facility] [id number] [place] [address] 71760- 6061 Oct, [facility] [id number] [place] [address] 23855- 8578 Oct, [facility] [address] [place] [address] 05210- 6460 Aug, [facility] [id number] [place] [address] 83247- 1789 Aug, [facility] [id number] [place] [address] 100461- 9867 Aug, [facility] [id number] [place] [address] 204915- 3556 Aug, [facility] [id number] [place] [address] 523653- 6773 Aug, [facility] [place] [facility] [address] [id number] [place] [address]- 2346 Aug, [facility] [place] [facility] [address] [id number] [place] [address]- 8964 Aug, [facility] [place] [facility] [address] [id number] [place] [address] Aug, [facility] [place] [facility] [address] [id number] [place] [address] Jul, [facility] [place] [facility] [address] [id number] [place] [address] Jul, [facility] [place] [facility] [address] [id number] [place] [address] Jul, [facility] [place] [facility] [address] [id number] [place] [address] Jul, [facility] [place] [facility] [address] [id number] [place] [address] Jul, [facility] [place] [facility] [address] [id number] [place] [address] Jul, [facility] [place] [facility] [address] [id number] [place] [address] Jul, [facility] [place] [facility] [address] [id number] [place] [address] Jul, [facility] [place] [facility] [address] [id number] [place] [address] Jul, [facility] [place] [facility] [address] [id number] [place] [address] Jul, [facility] [place] [facility] [address] [id number] [place] [address] Jul, [facility] [place] [facility] [address] [id number] [place] [address] Jun, [facility] [place] [facility] [address] [id number] [place] [address] Jun, [facility] [place] [facility] [address] [id number] [place] Jun, [facility] [place] [facility] [address] [id number] [place] [address]- [address] Jun, [facility] [place] [facility] [address] [id number] [place] Jun, [facility] [place] [facility] [address] [id number] [place] [address] Jun, [facility] [place] [facility] [address] [id number] [place] [address] May, [facility] [place] [facility] [address] [id number] [place] [place] [address] May, [facility] [place] [facility] [address] [id number] [place] [address] May, [facility] [place] [facility] [address] [id number] [place] [address]885 May, [facility] [place] [facility] [address] [id number] [place] [address] 2956 May, [facility] [place] [facility] [address] [facility] [id number] [place] [address] 2852 May, [facility] [place] [facility] [address] [id number] [place] [address] 5312 Apr, [facility] [place] [facility] [address] [id number] [place] [address] 6792 Apr, [facility] [place] [facility] [address] [id number] [place] [address] 1290 Mar, [facility] [place] [facility] [address] [id number] [place] [address] 6002 Mar, [facility] [place] [facility] [address] [id number] [place] [address] Mar, [facility] [place] [facility] [address] [id number] [place] [address]999 Mar, [facility] [place] [facility] [address] [id number] [place] [address] 9555 Mar, [facility] [place] [facility] [address] [id number] [place] [address]- 2706 Mar, [facility] [place] [facility] [address] [id number] [place] [address] 8693 Jan, [facility] [place] [facility] [address] [id number] [place] [address]- 2691 Jan, [facility] [place] [facility] [address] [id number] [place] [address] 9147 Jan, [facility] [place] [facility] [address] [id number] [place] [address] 1266 Jan, [facility] [place] [facility] [address] [id number] [place] [address] 9213 Jan, [facility] [place] [facility] [address] [id number] [place] [address]- 1845 Jan, [facility] [place] [facility] [address] [id number] [place] [address]- 9045 Dec, [facility] [place] [facility] [address] [id number] [place] [address] 5504 Dec, [facility] [place] [facility] [address] [id number] [place] [address]- 9522 Dec, [facility] [place] [facility] [address] [id number] [place] [address]- 5106 Dec, [facility] [place] [facility] [address] [id number] [place] [address]- 5148 Dec, [facility] [place] [facility] [address] [id number] [place] [address] 9009 Dec, [facility] [place] [facility] [address] [id number] [place] [address]- 8137 Dec, [facility] [place] [facility] [address] [id number] [place] [address]- 3063 Dec, [facility] [place] [facility] [address] [id number] [place] [address]- 9256 Dec, [facility] [place] [facility] [address] [id number] [place] [address]- 3706 Dec, [facility] [place] [facility] [address] [id number] [place] [address]- 7604 Dec, [facility] [place] [facility] [address] [id number] [place] [address]- 1435 Dec, [facility] [place] [facility] [address] [id number] [place] [address]- 0119 Dec, [facility] [place] [facility] [address] [id number] [place] [address]- 3582 Dec, [facility] [place] [facility] [address] [id number] [place] [address]- 7051 Dec, [facility] [place] [facility] [address] [id number] [place] [address]- 0463 Dec, [facility] [place] [facility] [address] [id number] [place] [address]- 7637 October, [facility] [place] [facility] [address] [id number] [place] [address]- 4975 October, [facility] [place] [facility] [address] [id number] [place] [address] 3797 October, [facility] [place] [facility] [address] [id number] [place] [address]- 6385 October, [facility] [place] [facility] [address] [id number] [place] [address]- 2587 October, [facility] [place] [facility] [address] [id number] [place] [address]- 0875 October, [facility] [place] [facility] [address] [id number] [place] [address]- 6045 Oct, [facility] [address] [id number] [place] [address]- 2225 Oct, [facility] [place] [facility] [address] [id number] [place] [address]- 6196 Oct, [facility] [address] [id number] [place] [address]- 7844 Oct, [facility] [place] [facility] [address] [id number] [place] [address] 7300 Oct, [facility] [address] [id number] [place] [address]- 9431 Oct, [facility] [place] [facility] [address] [id number] [place] [address] 3185 Aug, [facility] [place] [facility] [address] [id number] [place] [address]- 6079 Aug, [facility] [address] [id number] [place] [address]- 5965 Aug, [facility] [place] [facility] [address] [id number] [place] [address]- 3455 Aug, [facility] [address] [id number] [place] [address]- 8156 Jul, [facility] [place] [facility] [address] [id number] [place] [address] 9803 Jul, [facility] [place] [facility] [address] [id number] [place] [address]- 1508 Jul, [facility] [place] [facility] [address] [id number] [place] [address] Jul, [facility] [place] [facility] [address] [id number] [place] [address]- 8715 Jun, [facility] [place] [facility] [address] [id number] [place] [address]- 7090 Jun, [facility] [address] [id number] [place] [address]- 6327 Jun, [facility] [place] [facility] [address] [id number] [place] [address]- 0099 Jun, [facility] [place] [facility] [address] [id number] [place] [address]- 6393 Jun, [facility] [place] [facility] [address] [id number] [place] [address]- 6751 Jun, [facility] [place] [facility] [address] [id number] [place] [address]- 9487 Jun, [facility] [place] [facility] [address] [id number] [place] [address]- 5969 Jun, [facility] [place] [facility] [address] [id number] [place] [address]- 2246 Jun, [facility] [place] [facility] [address] [id number] [place] [address]- 6713 Jun, [facility] [place] [facility] [address] [id number] [place] [address]- 3462 Jun, [facility] [place] [facility] [address] [id number] [place] [address]- 3290 May, [facility] [place] [facility] [address] [id number] [place] [address]- 3166 May, [facility] [place] [facility] [address] [id number] [place] [address]- 5871 May, [facility] [place] [facility] [address] [id number] [place] [address]- 9095 May, [facility] [place] [facility] [address] [id number] [place] [address]- 6572 May, [facility] [place] [facility] [address] [facility] [id number] [place] [address]- 9619 06 May, 2013 [facility] [place] [facility] [address] [id number] [place] [address]- 7138 06 May, 2013 [facility] [place] [facility] [address] [id number] [place] [address]- 5735 30 Apr, 2013 [facility] [place] [facility] [address] [id number] [place] [address]- 1165 30 Apr, 2013 [facility] [place] [facility] [address] [id number] [place] [address]- 4704 18 Apr, 2013 [facility] [place] [facility] [address] [id number] [place] [address]- 7989 02 Apr, 2013 [facility] [place] [facility] [address] [id number] [place] [address]- 7957 27 Mar, 2013 [facility] [place] [facility] [address] [id number] [place] [address]- 4674 26 Mar, 2012 [facility] [place] [facility] [address] [id number] [place] [address]- 3724 26 Mar, 2012 [facility] [place] [facility] [address] [id number] [place] [address]- 8835 23 Mar, 2012 [facility] [place] [facility] [address] [id number] [place] [address]- [address] 04 Mar, 2013 [facility] [place] [facility] [address] [id number] [place] [address]- 9999 03 Mar, 2013 [facility] [place] [facility] [address] [id number] [place] [address]- 9457 30 Jan, 2013 [facility] [place] [facility] [address] [id number] [place] [address]- 2544 28 Jan, 2013 [facility] [place] [facility] [address] [id number] [place] [address]- 8785 Jan, [facility] [place] [facility] [address] [id number] [place] [address]- 8158 14 Jan, 2013 [facility] [place] [facility] [address] [id number] [place] [address]- 1570 06 Jan, 2013 [facility] [place] [facility] [address] [id number] [place] [address]- 9802 Dec, [facility] [address] [id number] [place] [address]- 5065 Dec, [facility] [place] [facility] [address] [id number] [place] [address]- 0349 Dec, [facility] [address] [id number] [place] [address]- 4915 Dec, [facility] [address] [id number] [place] [address]- 7084 Dec, [facility] [place] [facility] [address] [id number] [place] [address]- 7317 Dec, [facility] [address] [id number] [place] [address]- 4536 Dec, [facility] [address] [id number] [place] [address]- 4681 Dec, [facility] [address] [id number] [place] [address]- 5910 October, [facility] [address] [id number] [place] [address]- 5906 October, [facility] [place] [facility] [address] [id number] [place] [address]- 0693 October, [facility] [place] [facility] [address] [id number] [place] [address]- 0116 24 Oct, 2012 [facility] [place] [facility] [address] [id number] [place] [address]- 8500 18 Oct, 2012 [facility] [place] [facility] [address] [id number] [place] [address]- 6663 17 Oct, 2012 [facility] [place] [facility] [address] [id number] [place] [address]- 6191 02 Oct, 2012 [facility] [place] [facility] [address] [id number] [place] [address]- 7096 Aug, [facility] [place] [facility] [address] [id number] [place] [address]- 9778 Aug, [facility] [place] [facility] [address] [id number] [place] [address]- 0998 Aug, [facility] [place] [facility] [address] [id number] [place] [address]- 4242 Jul, [facility] [place] [facility] [address] [id number] [place] [address]- 2997 May, [facility] [place] [facility] [address] [id number] [place] [address]- 8680 May, [facility] [place] [facility] [address] [id number] [place] [address]- 6281 Apr, [facility] [place] [facility] [address] [id number] [place] [address]- 2340 Apr, [facility] [place] [facility] [address] [id number] [place] [address]- 8704 Apr, [facility] [place] [facility] [address] [id number] [place] [address]- 9692 Apr, [facility] [place] [facility] [address] [id number] [place] [address]- 2408 Apr, [facility] [place] [facility] [address] [id number] [place] [address]- 3529 Apr, [facility] [place] [facility] [address] [id number] [place] [address]- 4410 Apr, [facility] [place] [facility] [address] [id number] [place] [address]- 7837 Apr, [facility] [place] [facility] [address] [facility] [id number] [place] [address]- 8372 Apr, [facility] [place] [facility] [address] [id number] [place] [address]- 4189 Apr, [facility] [place] [facility] [address] [id number] [place] [address]- 0761 14 Apr, 2012 [facility] [address] [id number] [place] [address]- 3430 Apr, [facility] [address] [id number] [place] [address] 2546 Mar, [facility] [address] [id number] [place] [address]- 8716 Jan, [facility] [address] [id number] [place] [address]- 1313 Dec, [facility] [address] [id number] [place] [address]- 9093 October, [facility] [address] [id number] [place] [address]- 9236 Oct, [facility] [address] [id number] [place] [address]- 6236 Oct, [facility] [address] [id number] [place] [address]- 3984 Oct, [facility] [address] [id number] [place] [address]- 1086 Aug, [facility] [address] [facility] [id number] [place] [address]- 5426 Aug, [facility] [place] [facility] [address] [id number] [place] [address]- 1716 Aug, [facility] [address] [id number] [place] [address]- 2546 Aug, [facility] [place] [facility] [address] [id number] [place] [address]- 2706 Aug, [facility] [place] [facility] [address] [facility] [id number] [place] [address]- 2546 Aug, [facility] [place] [facility] [address] [facility] [id number] [place] [address]- 1348 Jun, [facility] [address] [facility] [id number] [place] [address] Apr, [facility] [address] [facility] [id number] [place] [address]- 2649 Jun, [facility] [address] [facility] [id number] [place] [address]- 3929 Jun, [facility] [address] [facility] [id number] [place] [address] May, [facility] [address] [facility] [id number] [place] [address]- 6411 May, [facility] [id number] [place] [address]- 7034 Apr, [facility] [address] [id number] [place] [address]- 1370 Apr, IMMUNIZATIONS No Known Immunizations SOCIAL HISTORY Never Assessed REASON FOR VISIT Refill Request PLAN OF CARE VITAL SIGNS MEDICATIONS No Known Medications RESULTS No Results PROCEDURES No Known [...] see above surgeries Hospitalization History Anaphylactic shock-[facility] 08/23/16
--- OUTSIDE RECORDS SUMMARY | 2018-07-18 07:40 | XMS REPORT ---
Author Author SAGAR NAVA Organization [facility] Address [address] [place] [address] Care Team Providers [employer] Worker Name Role Phone BRANDYTEZ HOYTHANY Unavailable PROBLEMS Type Condition ICD9-CM Code [id number] Code Onset Dates Condition Status SNOMED Code Problem ADD (attention deficit disorder) F90.0 Active 770967080 Problem Major depressive disorder, recurrent episode, mild F33.0 Active 478435188 Problem Allergic rhinitis due to pollen J30.1 Active 75052143 Problem Current chronic use of inhaled steroid Z79.51 Active 211586778 Problem Asthma exacerbation J45.901 Active 127162469 Problem Pure hypercholesterolemia E78.00 Active 154467516 Problem PCOS (polycystic ovarian syndrome) E28.2 Active 73432601 Problem Multiple food allergies Z91.018 Active 733044514 Problem Dental examination Z01.20 Active 745029330 Problem Uncomplicated severe persistent asthma J45.50 Active 365155409 Problem Gastroesophageal reflux disease without esophagitis K21.9 Active 648947180 Problem Migraine with aura and without status migrainosus, not intractable G43.109 Active 3298574 Problem Vitamin D deficiency E55.9 Active 75687226 Problem Acquired hypothyroidism E03.9 Active 882881356 ALLERGIES Unknown Allergies SOCIAL HISTORY No smoking Hx information available PLAN OF CARE VITAL SIGNS MEDICATIONS Unknown Medications RESULTS No Results PROCEDURES Procedure Date Ordered Related Diagnosis Body Site IMMUNOTHERAPY, 2 OR MORE INJECTIONS 2016-08-04 N/A IMMUNOTHERAPY INJECTIONS Aug 04, 2016 IMMUNIZATIONS No Known Immunizations
--- OUTSIDE RECORDS SUMMARY | 2018-07-18 07:41 | XMS REPORT ---
Author Author BRANDY SAGAR [facility] Address [address] [place] [address] Care Team Providers Care Audiology Technician Name Role Phone BRANDYTEZ HOYTHANY Unavailable PROBLEMS Type Condition ICD9-CM Code JGR98-NM Code Onset Dates Condition Status SNOMED Code Problem Migraine with aura and without status migrainosus, not intractable G43.109 Active 9621846 Problem PCOS (polycystic ovarian syndrome) E28.2 Active 57611257 Problem Uncomplicated severe persistent asthma J45.50 Active 001884656 Problem Severe persistent asthma with exacerbation J45.51 Active 722089673 Problem Other elevated white blood cell (WBC) count D72.828 Active 792535240 Problem Multiple food allergies Z91.018 Active 702712742 Problem Pure hypercholesterolemia E78.00 Active 498130870 Problem Current chronic use of inhaled steroid Z79.51 Active 568307804 Problem Asthma exacerbation J45.901 Active 556920902 Problem ADD (attention deficit disorder) F90.0 Active 888362075 Problem Allergic rhinitis due to pollen J30.1 Active 48532477 Problem Vitamin D deficiency E55.9 Active 46205026 Problem Major depressive disorder, recurrent episode, mild F33.0 Active 687091293 Problem Acquired hypothyroidism E03.9 Active 234833377 Problem Gastroesophageal reflux disease without esophagitis K21.9 Active 045233111 ALLERGIES No Information ENCOUNTERS Encounter Location Date Diagnosis [facility] [id number] [address] Dec, ADD (attention deficit disorder) F90.0 and Uncomplicated severe persistent asthma J45.50 [facility] [address] [address] Dec, Allergic rhinitis due to pollen J30.1 [facility] [address] [place] [address] 91996- 9365 Dec, [place] [address] [place] [address] 66648- 7835 October, Allergic rhinitis due to pollen J30.1 [place] [id number] [place] [address] 61794- 0271 October, Allergic rhinitis due to pollen J30.1 [place] [id number] [place] [address] 95473- 1341 Oct, [place] [id number] [place] [address] 16899- 6443 Oct, Allergic rhinitis due to pollen J30.1 [place] [id number] [place] [address] 34068- 8986 Oct, [place] [id number] [place] [address] 67895- 3233 Oct, Allergic rhinitis due to pollen J30.1 [place] [id number] [place] [address] 85566- 1523 Oct, Severe persistent asthma with exacerbation J45.51 and Pneumonia due to Haemophilus influenzae, unspecified laterality, unspecified part of lung J14 [place] [id number] [place] [address] 96125- 2353 Oct, ADD (attention deficit disorder) F90.0 [place] [id number] [place] [address] 16157- 1995 Aug, Haemophilus influenzae infection A49.2 [place] [id number] [place] [address] 88463- 0975 Aug, Cough productive of purulent sputum R05 [place] [id number] [place] [address] 17926- 7783 Aug, [place] [id number] [place] [address] 89381- 9363 Aug, Pulmonary congestion R09.89 [place] [id number] [place] [address] 4631 Aug, Severe persistent asthma with exacerbation J45.51 ; Hiatal hernia K44.9 and Gastroesophageal reflux disease without esophagitis K21.9 [place] [address]208- 8437 Aug, Other elevated white blood cell (WBC) count D72.828 [place] [address]8866- 0018 Aug, Uncomplicated severe persistent asthma J45.[address] 102754- 2961 Aug, Pure hypercholesterolemia E78.00 ; Uncomplicated severe persistent asthma J45.50 and Acquired hypothyroidism E03.[address] 53746- 7059 Aug, Acquired hypothyroidism E03.9 ; Pure hypercholesterolemia E78.00 and Uncomplicated severe persistent asthma J45.[address] 66260- 5009 Aug, Allergic rhinitis due to pollen J30.[address] 65225- 1182 Aug, Allergic rhinitis due to pollen J30.[address] 70448- 0896 Aug, [place] [address] [id number] Jul, Pharyngitis, unspecified etiology J02.9 and Lymphadenopathy R59.[address] 34384- 3416 Jul, ADD (attention deficit disorder) F90.[address] 39067- 8751 Jul, Allergic rhinitis due to pollen J30.[address] [place] [address]- 5971 Jul, Dental examination Z01.20 [place] [address] 63103- 6699 Jun, Cough productive of purulent sputum R05 [place] [id number] [place] [address] 08347- 3845 Jun, Allergic rhinitis due to pollen J30.1 [place] [id number] [place] [address] 53461- 6769 Jun, [place] [id number] [place] [address] 48736- 6438 Jun, Allergic rhinitis due to pollen J30.1 [place] [id number] [place] [address] 55626- 3386 Jun, Allergic rhinitis due to pollen J30.1 [place] [id number] [place] [address] 46464- 1301 May, Allergic rhinitis due to pollen J30.1 [place] [id number] [place] [address] 12951- 6646 May, Pneumonia due to Haemophilus influenzae, unspecified laterality, unspecified part of lung J14 [place] [id number] [place] [address] 10406- 2197 May, Allergic rhinitis due to pollen J30.1 [place] [id number] [place] [address] 48100- 1829 May, Other adverse food reactions, not elsewhere classified, initial encounter T78.1XXA and Pneumonia due to Haemophilus influenzae, unspecified laterality, unspecified part of lung J14 [place] [id number] [place] [address] 92779- 9309 May, Pneumonia due to Haemophilus influenzae, unspecified laterality, unspecified part of lung J14 [place] [id number] [place] [address] 30938- 3877 May, Multiple food allergies Z91.018 ; Uncomplicated severe persistent asthma J45.50 ; Cough productive of purulent sputum R05 and Uses central nervous system stimulants F15.90 [place] [address] 95682- 0111 Apr, Allergic rhinitis due to pollen J30.1 [place] [address] 98634- 5890 Apr, Allergic rhinitis due to pollen J30.1 [place] [address] 65648- 2644 Apr, Allergic rhinitis due to pollen J30.1 [place] [address] 66368- 2115 Apr, ADD (attention deficit disorder) F90.0 [place] [address] 87831- 3362 28 Mar, 2017 Allergic rhinitis due to pollen J30.1 [place] [address] 83633- 1481 21 Mar, 2017 Encounter for immunization Z23 [place] [address] 18502- 4586 19 Mar, 2017 [place] [address] 54303- 1044 14 Mar, 2017 Allergic rhinitis due to pollen J30.1 [place] [address] 43744- 0969 07 Mar, 2017 Allergic rhinitis due to pollen J30.1 [place] [address] 66060- 4467 Jan, Allergic rhinitis due to pollen J30.1 [place] [address] 57777- 1041 Jan, Allergic rhinitis due to pollen J30.1 [place] [address] 03097- 7122 Dec, Uncomplicated severe persistent asthma J45.50 [place] [id number] [place] [address] 78804- 7265 Dec, Allergic rhinitis due to pollen J30.1 [place] [id number] [place] [address] 62785- 9150 Dec, Allergic rhinitis due to pollen J30.1 [place] [address] 88861- 5298 Dec, Allergic rhinitis due to pollen J30.1 [place] [id number] [place] [address] 33769- 2859 Dec, ADD (attention deficit disorder) F90.0 [place] [address] 57528- 1185 Dec, Allergic rhinitis due to pollen J30.1 [id number] [place] [address] 63002- 4343 Dec, Visit for TB skin test Z11.1 and Screening for tuberculosis Z11.1 [place] [id number] [place] [address] 45558- 2727 Dec, Uncomplicated severe persistent asthma J45.50 ; Palpitations R00.2 ; Pericardial effusion (noninflammatory) I31.3 and Chest discomfort R07.89 [place] [id number] [place] [address] 41918- 4248 Dec, Allergic rhinitis due to pollen J30.1 [place] [id number] [place] [address] 18175- 6682 Dec, Chronic cough R05 [place] [id number] [place] [address] 92833- 7163 Dec, [place] [id number] [place] [address] 81086- 8713 Dec, Allergic rhinitis due to pollen J30.1 [place] [address] [place] [address]- 5322 Dec, Allergic rhinitis due to pollen J30.1 [facility] [id number] [place] [address] 02035- 9672 Dec, Chronic cough R05 [place] [id number] [place] [address] 57869- 0613 October, Allergic rhinitis due to pollen J30.1 [place] [id number] [place] [address] 64398- 5062 October, Allergic rhinitis due to pollen J30.1 [place] [id number] [place] [address] 97599- 0653 October, [place] [id number] [place] [address] 95092- 7460 October, Asthma exacerbation J45.901 [place] [address] 45308- 6554 October, Asthma exacerbation J45.901 and Current chronic use of inhaled steroid Z79.51 [place] [id number] [place] [address] 39483- 2912 October, Uncomplicated severe persistent asthma J45.50 [place] [id number] [place] [address] 66243- 5305 October, Allergic rhinitis due to pollen J30.1 [place] [id number] [place] [address] 70893- 0852 Oct, [place] [id number] [place] [address] 01343- 4781 Oct, Asthma exacerbation J45.901 and Sputum production R05 [place] [id number] [place] [address] 66500- 5477 Oct, Asthma exacerbation J45.901 [place] [id number] [place] [address] 49252- 9277 Oct, ADD (attention deficit disorder) F90.0 [place] [id number] [place] [address] 28825- 1051 Oct, ADD (attention deficit disorder) F90.0 [place] [address] [place] [address] 149415- 0664 Aug, Allergic rhinitis due to pollen J30.1 [place] [address] 05073- 9352 Aug, Atypical pneumonia J18.9 [place] [address] 49019- 7398 Aug, Allergic rhinitis due to pollen J30.1 [place] [address] 31840- 2068 Aug, Acquired hypothyroidism E03.9 [place] [address] 61141- 3969 Aug, Multiple food allergies Z91.018 ; Elevated blood pressure reading R03.0 and Anaphylaxis, subsequent encounter T78.2XXD [place] [address] [id number] Aug, [place] [address] 48184- 7937 Aug, Anaphylaxis, initial encounter T78.2XXA [place] [address] 26777- 8232 Aug, Allergic rhinitis due to pollen J30.1 [place] [address] 71826- 3881 Aug, Dental examination Z01.20 [place] [address] 76876- 4184 Aug, Allergic rhinitis due to pollen J30.1 [place] [address] 48190- 4947 Aug, Acquired hypothyroidism E03.9 and Pure hypercholesterolemia E78.00 [facility] [id number] [place] [address] 93015 2546 03 Aug, 2016 ADD (attention deficit disorder) F90.0 ; Acquired hypothyroidism E03.9 and Pure hypercholesterolemia E78.00 [facility] [id number] [place] [address] 84002 2546 02 Aug, 2016 Asthma exacerbation J45.901 [facility] [address] 82252- 2956 Jul, Allergic rhinitis due to pollen J30.1 [place] [id number] [place] [address] 20345- 0166 Jul, Allergic rhinitis due to pollen J30.1 [place] [id number] [place] [address] 15520- 7548 Jul, [place] [address] 23088- 6183 Jul, Allergic rhinitis due to pollen J30.1 [facility] [id number] [place] [address] 57330- 9901 Jul, Other skilled nursing (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 and ADD ( attention deficit disorder) F90.0 [place] [id number] [place] [address] 85249- 8297 Jul, Other skilled nursing (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 and ADD ( attention deficit disorder) F90.0 [facility] [id number] [place] [address] 54501 2547 Jul, [facility] [id number] [place] [address] 19590- 6876 Jun, Allergic rhinitis due to pollen J30.1 [facility] [id number] [place] [address] 76535- 1689 Jun, Allergic rhinitis due to pollen J30.1 [facility] [id number] [place] [address] 14242- 2396 Jun, [facility] [id number] [place] [address] 80628- 3310 May, Allergic rhinitis due to pollen J30.1 [facility] [id number] [place] [address] 91194- 1890 May, Allergic rhinitis due to pollen J30.1 [facility] [id number] [place] [address] 70949- 0309 Apr, Allergic rhinitis due to pollen J30.1 [facility] [id number] [place] [address] 47656- 7935 Apr, Allergic rhinitis due to pollen J30.1 [place] [id number] [place] [address] 69261- 6627 Apr, Encounter for immunization Z23 [place] [address] 59943- 3330 Apr, [place] [id number] [place] [address] 11128- 8658 Mar, Allergic rhinitis due to pollen J30.1 [place] [id number] [place] [address] 01525- 0335 Mar, Multiple allergies Z88.9 [place] [id number] [place] [address] 63399- 6538 Mar, Candidal vaginitis B37.3 [place] [id number] [place] [address] 63459- 2122 08 Mar, 2016 Allergic rhinitis due to pollen J30.1 [place] [id number] [place] [address] 02437- 6003 Jan, Asthma exacerbation J45.901 ; Fatigue, unspecified type R53.83 and Community acquired pneumonia J18.9 [facility] [id number] [place] [address] [id number] Jan, Encounter for dental examination Z01.20 [facility] [address] [address]- 7050 Jan, Allergic rhinitis due to pollen J30.1 [facility] [address] [address]- 3209 Dec, Allergic rhinitis due to pollen J30.1 [facility] [address] [address]- 6039 Dec, [facility] [id number] [address]- 3676 Dec, Allergic rhinitis due to pollen J30.1 [facility] [address] [address]- 9353 Dec, [facility] [id number] [address]- 2645 Dec, [facility] [address] [place] [address] 51581- 7128 Dec, [facility] [address] [address]- 5668 Dec, Allergic rhinitis due to pollen J30.1 [facility] [address] [address]- 8709 Dec, [facility] [address] [address]- 9829 Dec, [facility] [address] [address]- 1748 Dec, Allergic rhinitis due to pollen J30.1 [facility] [address] [address]- 0643 October, Allergic rhinitis due to pollen J30.1 [facility] [address] [address]- 5995 October, Allergic rhinitis due to pollen J30.1 [facility] [address] [place] [address] 90084- 1485 October, [place] [id number] [place] [address] 11646- 8235 October, [place] [id number] [place] [address] 98545- 4352 October, ADD (attention deficit disorder) F90.0 ; Major depressive disorder, recurrent episode, mild F33.0 and Uncomplicated severe persistent asthma J45.50 [place] [address] 17291- 5584 Oct, Allergic rhinitis due to pollen J30.1 [place] [address] 26122- 5752 Oct, ADD (attention deficit disorder) F90.0 [place] [id number] [place] [address] 37121- 1986 Oct, Allergic rhinitis due to pollen 477.0 [place] [id number] [place] [address] 73573- 0737 Aug, Allergic rhinitis due to pollen 477.0 [place] [id number] [place] [address] 14973- 3829 Aug, 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 [place] [id number] [place] [address] 81543- 6592 Aug, [place] [id number] [place] [address] 52874- 2601 Aug, Allergic rhinitis due to pollen 477.0 [place] [id number] [place] [address] 15965- 4428 Aug, Allergic rhinitis due to pollen 477.0 [place] [id number] [place] [address] 34103- 6484 Aug, Allergic rhinitis due to pollen 477.0 [place] [id number] [place] [address] 80878- 5011 Aug, Exposure to influenza Z20.828 [facility] [address] [place] [address] [id number] Aug, Encounter for dental examination and cleaning without abnormal findings Z01.20 [facility] [id number] [place] [address] 85203- 5718 18 Aug, 2015 Allergic rhinitis due to pollen J30.1 [place] [address] 00868- 2654 Aug, [place] [address] 22049- 9572 Aug, 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 [place] [address] 34191- 1138 Jul, [place] [address] 23746- 4960 Jul, Allergic rhinitis due to pollen 477.0 [place] [id number] [place] [address] 20007- 6556 Jul, [place] [address] 75973- 4656 Jul, Allergic rhinitis due to pollen 477.0 [place] [id number] [place] [address] 68192- 1665 Jun, ADD (attention deficit disorder) F90.0 ; Acquired hypothyroidism E03.9 ; PCOS (polycystic ovarian syndrome) E28.2 ; Polyarthralgia M25.50 and On stimulant medication Z79.899 [place] [id number] [place] [address] 42119- 6558 Apr, Encounter for immunization Z23 [facility] [id number] [place] [address] 42427- 3327 16 Mar, 2015 Allergic rhinitis due to pollen 477.0 [place] [address] 86058- 4110 Mar, Influenza vaccine administered V04.81 [facility] [address] [place] [address] 08273- 1135 Mar, [facility] [id number] [place] [address] 522567- 3940 Jan, Allergic rhinitis due to pollen 477.0 [facility] [id number] [place] [address] 271470- 6941 Jan, Allergic rhinitis due to pollen 477.0 [facility] [address] [place] [address] 210976- 7828 Jan, Allergic rhinitis due to pollen 477.0 [facility] [id number] [place] [address] [id number] Jan, Dental examination V72.2 [facility] [id number] [place] [address] 74026- 2126 Dec, Allergic rhinitis due to pollen 477.0 [facility] [address] [place] [address] 44597- 5442 October, [facility] [id number] [place] [address] 07728- 2707 Oct, [facility] [id number] [place] [address] 60841- 0990 Oct, [facility] [id number] [place] [address] 13063- 9867 Aug, [facility] [address] [place] [address] 16241- 8194 Aug, [facility] [id number] [place] [address] 213137- 7635 Aug, [facility] [id number] [place] [address] 200428- 3626 Aug, [facility] [address] [place] [address] 544847- 3396 Aug, [facility] [place] [facility] [address] [id number] [place] [address]- 5205 Aug, [facility] [place] [facility] [address] [id number] [place] [address]- 4857 Aug, [facility] [place] [facility] [address] [id number] [place] [address]- 3163 Aug, [facility] [place] [facility] [address] [id number] [place] [address]- 3078 Jul, [facility] [place] [facility] [address] [id number] [place] [address]- 0316 Jul, [facility] [place] [facility] [address] [id number] [place] [address]- 7696 Jul, [facility] [place] [facility] [address] [id number] [place] [address]- 9666 Jul, [facility] [place] [facility] [address] [id number] [place] [address]- 4279 Jul, [facility] [place] [facility] [address] [id number] [place] [address]- 9986 Jul, [facility] [place] [facility] [address] [id number] [place] [address]- 5711 Jul, [facility] [place] [facility] [address] [id number] [address]- 4396 Jul, [facility] [place] [facility] [address] [id number] [address]- 9941 Jul, [facility] [place] [facility] [address] [id number] [place] [address]- 5889 Jul, [facility] [place] [facility] [address] [id number] [place] [address]- 9635 Jul, [facility] [place] [facility] [address] [id number] [place] [address]- 7688 Jun, [facility] [place] [facility] [address] [id number] [place] [address] Jun, [facility] [place] [facility] [address] [id number] [place] Jun, [facility] [place] [facility] [address] [id number] [place] [address] Jun, [facility] [place] [facility] [address] [id number] [place] [address] [address] Jun, [facility] [place] [facility] [address] [id number] [place] [address] Jun, [facility] [place] [facility] [address] [id number] [place] [address] May, [facility] [place] [facility] [address] [id number] [place] [address] May, [facility] [place] [facility] [address] [id number] [place] [address] May, [facility] [place] [facility] [address] [id number] [place] [address] May, [facility] [place] [facility] [address] [id number] [place] [address] May, [facility] [place] [facility] [address] [facility] [id number] [place] [address] May, [facility] [place] [facility] [address] [id number] [place] [address] Apr, [facility] [place] [facility] [address] [id number] [place] [address] Apr, [facility] [place] [facility] [address] [id number] [place] [address] Mar, [facility] [place] [facility] [address] [id number] [place] [address] Mar, [facility] [place] [facility] [address] [id number] [place] [address] [address] Mar, [facility] [place] [facility] [address] [id number] [place] [address] Mar, [facility] [place] [facility] [address] [id number] [place] [address] Mar, [facility] [place] [facility] [address] [id number] [place] [address] Mar, [facility] [place] [facility] [address] [id number] [place] [address] Jan, [facility] [place] [facility] [address] [id number] [place] [address] Jan, [facility] [place] [facility] [address] [id number] [place] [address] 8[address] Jan, [facility] [place] [facility] [address] [id number] [place] [address] Jan, [facility] [place] [facility] [address] [id number] [place] [address] Jan, [facility] [place] [facility] [address] [id number] [place] [address] Jan, [facility] [place] [facility] [address] [id number] [place] [address] Dec, [facility] [place] [facility] [address] [id number] [place] [address] Dec, [facility] [place] [facility] [address] [id number] [place] [address] 9899 Dec, [facility] [place] [facility] [address] [id number] [place] [address] Dec, [facility] [place] [facility] [address] [id number] [place] [address] 8999 Dec, [facility] [place] [facility] [address] [id number] [place] [address] 5360 Dec, [facility] [place] [facility] [address] [id number] [place] [address] 6860 Dec, [facility] [place] [facility] [address] [id number] [place] [address] 4719 Dec, [facility] [place] [facility] [address] [id number] [place] [address] 0485 Dec, [facility] [place] [facility] [address] [id number] [place] [address] 7619 Dec, [facility] [place] [facility] [address] [id number] [place] [address] 2929 Dec, [facility] [place] [facility] [address] [id number] [place] [address] 8719 Dec, [facility] [place] [facility] [address] [id number] [place] [address] 1036 Dec, [facility] [place] [facility] [address] [id number] [place] [address] 3964 Dec, [facility] [place] [facility] [address] [id number] [place] [address] 5942 Dec, [facility] [place] [facility] [address] [id number] [place] [address] 8767 Dec, [facility] [place] [facility] [address] [id number] [place] [address] 07[address] October, [facility] [place] [facility] [address] [id number] [place] [address] 5[address] October, [facility] [place] [facility] [address] [id number] [place] [address] 0108 October, [facility] [place] [facility] [address] [id number] [place] [address] 7598 October, [facility] [place] [facility] [address] [id number] [place] [address]- 6622 October, [facility] [place] [facility] [address] [id number] [place] [address]- 0248 October, [facility] [place] [facility] [address] [id number] [place] [address] 38[address] Oct, [facility] [address] [id number] [place] [address] 1733 Oct, [facility] [place] [facility] [address] [id number] [place] [address] Oct, [facility] [address] [id number] [place] [address] 0282 Oct, [facility] [place] [facility] [address] [id number] [place] [address] 6369 Oct, [facility] [address] [id number] [place] [address] 4928 Oct, [facility] [place] [facility] [address] [id number] [place] [address] 46[address] Aug, [facility] [place] [facility] [address] [id number] [place] [address] 0668 Aug, [facility] [address] [id number] [place] [address] Aug, [facility] [place] [facility] [address] [id number] [place] [address] 8369 Aug, [facility] [address] [id number] [place] [address] 6584 Jul, [facility] [place] [facility] [address] [id number] [place] [address] 9268 Jul, [facility] [place] [facility] [address] [id number] [place] [address] 3315 Jul, [facility] [place] [facility] [address] [id number] [place] [address] Jul, [facility] [place] [facility] [address] [id number] [place] [address] 8003 Jun, [facility] [place] [facility] [address] [id number] [place] [address] Jun, [facility] [address] [id number] [place] [address] 4644 Jun, [facility] [place] [facility] [address] [id number] [place] [address]- 6562 Jun, [facility] [place] [facility] [address] [id number] [place] [address] 4709 Jun, [facility] [place] [facility] [address] [id number] [place] [address] 0095 Jun, [facility] [place] [facility] [address] [id number] [place] [address]- 3126 Jun, [facility] [place] [facility] [address] [id number] [place] [address] 9196 Jun, [facility] [place] [facility] [address] [id number] [place] [address] 7946 Jun, [facility] [place] [facility] [address] [id number] [place] [address] 5838 Jun, [facility] [place] [facility] [address] [id number] [place] [address] 0750 Jun, [facility] [place] [facility] [address] [id number] [address] May, [facility] [place] [facility] [address] [id number] [address]65 May, [facility] [place] [facility] [address] [id number] [address] 6765 May, [facility] [place] [facility] [address] [id number] [place] [address] 9356 May, [facility] [place] [facility] [address] [id number] [place] [address]- 1629 May, [facility] [place] [facility] [address] [facility] [id number] [address] 06 May, 2013 [facility] [place] [facility] [address] [id number] [place] [address] 6396 06 May, 2013 [facility] [place] [facility] [address] [id number] [place] [address]- 9086 30 Apr, 2013 [facility] [place] [facility] [address] [id number] [place] [address]- 3553 30 Apr, 2013 [facility] [place] [facility] [address] [id number] [place] [address]- 4982 18 Apr, 2013 [facility] [place] [facility] [address] [id number] [place] [address] 4143 02 Apr, 2013 [facility] [place] [facility] [address] [id number] [place] [address] 3368 27 Mar, 2013 [facility] [place] [facility] [address] [id number] [place] [address]- 5158 26 Mar, 2012 [facility] [place] [facility] [address] [id number] [place] [address]- 7173 26 Mar, 2012 [facility] [place] [facility] [address] [id number] [place] [address]- 2148 23 Mar, 2012 [facility] [place] [facility] [address] [id number] [place] [address]- 6882 04 Mar, 2013 [facility] [place] [facility] [address] [id number] [place] [address]- 3689 03 Mar, 2013 [facility] [place] [facility] [address] [id number] [place] [address]- 5372 30 Jan, 2013 [facility] [place] [facility] [address] [id number] [place] [address]- 2541 28 Jan, 2013 [facility] [place] [facility] [address] [id number] [place] [address]- 9597 Jan, [facility] [place] [facility] [address] [id number] [place] [address]- 1583 14 Jan, 2013 [facility] [place] [facility] [address] [id number] [place] [address]- 0288 06 Jan, 2013 [facility] [place] [facility] [address] [id number] [place] [address]- [address] Dec, [facility] [address] [id number] [place] [address]- 5905 Dec, [facility] [place] [facility] [address] [id number] [place] [address]- 5656 Dec, [facility] [address] [id number] [place] [address]- 6895 Dec, [facility] [address] [id number] [place] [address]- 6899 Dec, [facility] [place] [facility] [address] [id number] [place] [address]- 5257 Dec, [facility] [address] [id number] [place] [address]- 3533 Dec, [facility] [address] [id number] [place] [address]- 1382 Dec, [facility] [address] [id number] [place] [address]- 0964 October, [facility] [address] [id number] [place] [address]- 0736 October, [facility] [place] [facility] [address] [id number] [place] [address]- 9702 October, [facility] [place] [facility] [address] [id number] [place] [address]- 9328 24 Oct, 2012 [facility] [place] [facility] [address] [id number] [place] [address]- 8237 18 Oct, 2012 [facility] [place] [facility] [address] [id number] [place] [address] 1965 17 Oct, 2012 [facility] [place] [facility] [address] [id number] [place] [address]- 6919 02 Oct, 2012 [facility] [place] [facility] [address] [id number] [address]- 4876 Aug, [facility] [place] [facility] [address] [id number] [place] [address]- 8822 Aug, [facility] [place] [facility] [address] [id number] [place] [address]- 5756 Aug, [facility] [place] [facility] [address] [id number] [place] [address]- 0629 Jul, [facility] [place] [facility] [address] [id number] [place] [address]- 5292 May, [facility] [place] [facility] [address] [id number] [place] [address]- 2909 May, [facility] [place] [facility] [address] [id number] [place] [address]- 5633 Apr, [facility] [place] [facility] [address] [id number] [place] [address]- 3551 Apr, [facility] [place] [facility] [address] [id number] [place] [address]- 5964 Apr, [facility] [place] [facility] [address] [id number] [place] [address]- 3645 Apr, [facility] [place] [facility] [address] [id number] [place] [address]- 9776 Apr, [facility] [place] [facility] [address] [id number] [place] [address]- 5765 Apr, [facility] [place] [facility] [address] [id number] [place] [address]- 8963 Apr, [facility] [place] [facility] [address] [id number] [place] [address]- 6864 Apr, [facility] [place] [facility] [address] [facility] [id number] [place] [address]- 1584 Apr, [facility] [place] [facility] [address] [id number] [place] [address]- 1298 Apr, [facility] [place] [facility] [address] [id number] [place] [address]- 6691 14 Apr, 2012 [facility] [address] [id number] [place] [address]- 0130 Apr, [facility] [address] [id number] [place] [address] 2546 Mar, [facility] [address] [id number] [place] [address]- 1186 Jan, [facility] [address] [id number] [place] [address]- 0106 Dec, [facility] [address] [id number] [place] [address]- 2708 October, [facility] [address] [id number] [place] [address]- 3716 Oct, [facility] [address] [id number] [place] [address]- 7596 Oct, [facility] [address] [id number] [place] [address]- 5734 Oct, [facility] [address] [id number] [place] [address]- 7566 Aug, [facility] [address] [facility] [id number] [place] [address]- 7056 Aug, [facility] [place] [facility] [address] [id number] [place] [address]- 3456 Aug, [facility] [address] [id number] [place] [address]- 2546 Aug, [facility] [place] [facility] [address] [id number] [place] [address]- 8346 Aug, [facility] [place] [facility] [address] [facility] [id number] [place] [address]- 2546 Aug, [facility] [place] [facility] [address] [facility] [id number] [place] [address]- 5136 Jun, [facility] [address] [facility] [id number] [place] [address]- 0213 Apr, [facility] [address] [facility] [id number] [address]- 0290 Jun, [facility] [address] [facility] [id number] [place] [address]- 0874 Jun, [facility] [address] [facility] [id number] [address]- 1752 May, [facility] [address] [facility] [id number] [place] [address]- 8180 May, [facility] [id number] [address]- 2069 Apr, [facility] [address] [id number] [address]- 3133 Apr, IMMUNIZATIONS No Known Immunizations SOCIAL HISTORY Never Assessed REASON FOR VISIT Allergy injection(s) STeposte CCMA PLAN OF CARE VITAL SIGNS MEDICATIONS No Known Medications RESULTS No Results PROCEDURES Procedure Date Ordered Result Body Site IMMUNOTHERAPY INJECTIONS Aug 17, 2017 INSTRUCTIONS MEDICATIONS ADMINISTERED No Known Medications [...] History see above surgeries Hospitalization History Anaphylactic shock-[facility] 08/23/16
--- OUTSIDE RECORDS SUMMARY | 2018-07-18 07:42 | XMS REPORT ---
Author BALJEET Nolasco [facility] eClinicalWorks Address Unknown Phone Unavailable Care Team Providers Care [employer] Worker Name Role Phone BALJEET WILKINS CP Unavailable [...] Coding System Code Date IMMUNOTHERAPY INJECTIONS CPT-4 89563 May 12, 2016 Results Name Result Date Reference Range Unit Abnormality Flag IMMUNOTHERAPY, 2 OR MORE INJECTIONS Summary Purpose eClinicalWorks Submission
--- OUTSIDE RECORDS SUMMARY | 2018-07-18 07:42 | XMS REPORT ---
Author Author BRANDY SAGAR [facility] Address [address] [place] [address] Care Team Providers Care Textile Designer Name Role Phone BRANDYTEZ HOYTHANY Unavailable PROBLEMS Type Condition ICD9-CM Code LKM29-EG Code Onset Dates Condition Status SNOMED Code Problem Migraine with aura and without status migrainosus, not intractable G43.109 Active 8916403 Problem PCOS (polycystic ovarian syndrome) E28.2 Active 05859084 Problem Uncomplicated severe persistent asthma J45.50 Active 327081633 Problem Severe persistent asthma with exacerbation J45.51 Active 527610579 Problem Other elevated white blood cell (WBC) count D72.828 Active 000393484 Problem Multiple food allergies Z91.018 Active 970701068 Problem Pure hypercholesterolemia E78.00 Active 935068344 Problem Current chronic use of inhaled steroid Z79.51 Active 555482068 Problem Asthma exacerbation J45.901 Active 208795237 Problem ADD (attention deficit disorder) F90.0 Active 607349633 Problem Allergic rhinitis due to pollen J30.1 Active 23993786 Problem Vitamin D deficiency E55.9 Active 06339267 Problem Major depressive disorder, recurrent episode, mild F33.0 Active 458801061 Problem Acquired hypothyroidism E03.9 Active 709017472 Problem Gastroesophageal reflux disease without esophagitis K21.9 Active 854121709 ALLERGIES No Information ENCOUNTERS Encounter Location Date Diagnosis [facility] [address] [facility] [id number] [address] Aug, Haemophilus influenzae infection A49.2 [facility] [address] [address] Aug, Cough productive of purulent sputum R05 [facility] [address] [place] [id number] [address] Aug, [facility] [address] [address]- [address] 08 Aug, 2017 Pulmonary congestion R09.89 [place] [id number]- [address]87 Aug, Severe persistent asthma with exacerbation J45.51 ; Hiatal hernia K44.9 and Gastroesophageal reflux disease without esophagitis K21.[address] [address]- [address] Aug, Other elevated white blood cell (WBC) count D72.[address] 55106- 5789 Aug, Uncomplicated severe persistent asthma J45.[address] 27712- 5166 Aug, Pure hypercholesterolemia E78.00 ; Uncomplicated severe persistent asthma J45.50 and Acquired hypothyroidism E03.[address] 24204- 5243 20 Aug, 2017 Acquired hypothyroidism E03.9 ; Pure hypercholesterolemia E78.00 and Uncomplicated severe persistent asthma J45.[address] 48918- 8164 15 Aug, 2017 Allergic rhinitis due to pollen J30.[address] 33069- 6385 Aug, Allergic rhinitis due to pollen J30.1 [place] [address] 48782- 7177 Aug, [place] [address] [id number] Jul, Pharyngitis, unspecified etiology J02.9 and Lymphadenopathy R59.[address] 76056- 1130 Jul, ADD (attention deficit disorder) F90.0 [place] [id number] [place] [address] 29822- 3117 Jul, Allergic rhinitis due to pollen J30.1 [place] [address] 61188- 0389 Jul, Dental examination Z01.20 [place] [address] 18399- 9301 Jun, Cough productive of purulent sputum R05 [place] [address] 67725- 9384 Jun, Allergic rhinitis due to pollen J30.1 [place] [address] 40413- 0290 Jun, [place] [address] 50479- 2606 Jun, Allergic rhinitis due to pollen J30.1 [place] [address] 76977- 2405 Jun, Allergic rhinitis due to pollen J30.1 [place] [address] [place] [id number] [place] [address] 54259- 3535 May, Allergic rhinitis due to pollen J30.1 [place] [address] [place] [id number] [place] [address] 59391- 1977 May, Pneumonia due to Haemophilus influenzae, unspecified laterality, unspecified part of lung J14 [place] [address] [place] [id number] [place] [address] 44174- 1415 May, Allergic rhinitis due to pollen J30.1 [place] [address] [place] [id number] [place] [address] 10036- 3865 May, Other adverse food reactions, not elsewhere classified, initial encounter T78.1XXA and Pneumonia due to Haemophilus influenzae, unspecified laterality, unspecified part of lung J14 [place] [address] [place] [id number] [place] [address] 41251- 5810 May, Pneumonia due to Haemophilus influenzae, unspecified laterality, unspecified part of lung J14 [place] [address] [place] [id number] [place] [address] 56213- 8968 May, Multiple food allergies Z91.018 ; Uncomplicated severe persistent asthma J45.50 ; Cough productive of purulent sputum R05 and Uses central nervous system stimulants F15.90 [place] [address] [place] [id number] [place] [address] 27481- 8022 Apr, Allergic rhinitis due to pollen J30.1 [place] [address] [place] [id number] [place] [address] 04773- 3616 Apr, Allergic rhinitis due to pollen J30.1 [place] [address] 67787- 7240 Apr, Allergic rhinitis due to pollen J30.1 [place] [address] 14764- 3707 Apr, ADD (attention deficit disorder) F90.0 [place] [address] 98469- 9974 28 Mar, 2017 Allergic rhinitis due to pollen J30.1 [place] [address] [place] [id number] [place] [address] 72536- 7947 21 Mar, 2017 Encounter for immunization Z23 [place] [address] [place] [id number] [place] [address] 82900- 6271 19 Mar, 2017 [place] [address] [place] [id number] [place] [address] 34984- 9748 14 Mar, 2017 Allergic rhinitis due to pollen J30.1 [place] [address] [place] [id number] [place] [address] 40838- 1143 07 Mar, 2017 Allergic rhinitis due to pollen J30.1 [place] [address] [place] [id number] [place] [address] 40168- 6857 16 Jan, 2017 Allergic rhinitis due to pollen J30.1 [place] [address] 42935- 0709 Jan, Allergic rhinitis due to pollen J30.1 [place] [id number] [place] [address] 13234- 8597 Dec, Uncomplicated severe persistent asthma J45.50 [place] [address] [place] [id number] [place] [address] 19717- 4822 Dec, Allergic rhinitis due to pollen J30.1 [place] [address] [place] [id number] [place] [address] 66755- 1103 Dec, Allergic rhinitis due to pollen J30.1 [place] [address] [place] [id number] [place] [address] 31502- 8929 Dec, Allergic rhinitis due to pollen J30.1 [place] [address] [place] [id number] [place] [address] 02964- 8099 Dec, ADD (attention deficit disorder) F90.0 [place] [address] [place] [id number] [place] [address] 01023- 2865 Dec, Allergic rhinitis due to pollen J30.1 [place] [address] [place] [id number] [place] [address] 45206- 9330 Dec, Screening for tuberculosis Z11.1 and Visit for TB skin test Z11.1 [place] [address] [place] [id number] [place] [address] 60366- 3077 Dec, Uncomplicated severe persistent asthma J45.50 ; Palpitations R00.2 ; Pericardial effusion (noninflammatory) I31.3 and Chest discomfort R07.89 [place] [address] [place] [address] 38084- 3971 Dec, Allergic rhinitis due to pollen J30.1 [place] [address] [place] [id number] [place] [address] 13554- 5482 Dec, Chronic cough R05 [place] [address] [place] [id number] [place] [address] 88209- 3891 Dec, [place] [address] [place] [id number] [place] [address] 26122- 9849 15 Dec, 2016 Allergic rhinitis due to pollen J30.1 [place] [address] [place] [id number] [place] [address] 71900- 3363 Dec, Allergic rhinitis due to pollen J30.1 [place] [address] [place] [id number] [place] [address] 96080- 3538 Dec, Chronic cough R05 [place] [address] 89656- 2195 October, Allergic rhinitis due to pollen J30.1 [place] [address] 47916- 8516 October, Allergic rhinitis due to pollen J30.1 [place] [address] [place] [id number] [place] [address] 89580- 5966 October, [place] [address] 07003- 6208 October, Asthma exacerbation J45.901 [place] [address] [place] [id number] [place] [address] 49190- 2987 October, Asthma exacerbation J45.901 and Current chronic use of inhaled steroid Z79.51 [place] [address] [place] [id number] [place] [address] 29975- 1103 October, Uncomplicated severe persistent asthma J45.50 [place] [address] [place] [id number] [place] [address] 79966- 8596 October, Allergic rhinitis due to pollen J30.1 [place] [address] [place] [id number] [place] [address] 30412- 5403 Oct, [place] [address] [place] [id number] [place] [address] 76447- 0324 Oct, Asthma exacerbation J45.901 and Sputum production R05 [place] [address] [place] [id number] [place] [address] 83049- 9825 Oct, Asthma exacerbation J45.901 [place] [address] [place] [id number] [place] [address] 57475- 0155 Oct, ADD (attention deficit disorder) F90.0 [place] [address] [place] [id number] [place] [address] 14749- 9163 Oct, ADD (attention deficit disorder) F90.0 [place] [address] 33421- 7724 Aug, Allergic rhinitis due to pollen J30.1 [place] [address] 11095- 1137 Aug, Atypical pneumonia J18.9 [place] [address] 33836- 4665 Aug, Allergic rhinitis due to pollen J30.1 [place] [address] 76061- 0153 Aug, Acquired hypothyroidism E03.9 [place] [address] 22103- 6186 Aug, Multiple food allergies Z91.018 ; Elevated blood pressure reading R03.0 and Anaphylaxis, subsequent encounter T78.2XXD [place] [address] [place] [id number] [place] [address] [id number] Aug, [place] [address] 36070- 3907 Aug, Anaphylaxis, initial encounter T78.2XXA [address] 15596- 5833 Aug, Allergic rhinitis due to pollen J30.1 [place] [address] [place] [id number] [place] [address] 74355- 7268 Aug, Dental examination Z01.[address] 03688- 0066 Aug, Allergic rhinitis due to pollen J30.1 [facility] [address] [place] [address] 75896- 6689 06 Aug, 2016 Acquired hypothyroidism E03.9 and Pure hypercholesterolemia E78.00 [facility] [address] [id number] [place] [address] 18971- 3416 Aug, ADD (attention deficit disorder) F90.0 ; Acquired hypothyroidism E03.9 and Pure hypercholesterolemia E78.00 [facility] [address] [place] [id number] [place] [address] 88057- 2406 Aug, Asthma exacerbation J45.901 [place] [address] 70785- 7269 Jul, Allergic rhinitis due to pollen J30.1 [facility] [address] [place] [id number] [place] [address] 91606- 6211 Jul, Allergic rhinitis due to pollen J30.1 [facility] [address] [id number] [place] [address] 38196- 8282 Jul, [facility] [address] [place] [id number] [place] [address] 92201- 2046 Jul, Allergic rhinitis due to pollen J30.1 [facility] [address] [place] [id number] [place] [address] 46745- 2452 Jul, 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 and ADD ( attention deficit disorder) F90.0 [facility] [address] [place] [address] 71222- 3527 Jul, Other second officer (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 and ADD ( attention deficit disorder) F90.0 [facility] [address] [place] [id number] [place] [address] 35127- 1585 Jul, [facility] [address] [place] [id number] [place] [address] 98983- 3509 Jun, Allergic rhinitis due to pollen J30.1 [facility] [address] [id number] [place] [address] 32624- 8893 Jun, Allergic rhinitis due to pollen J30.1 [facility] [address] [place] [id number] [place] [address] 38355- 4033 Jun, [place] [address] [place] [id number] [place] [address] 93498- 5260 May, Allergic rhinitis due to pollen J30.1 [facility] [address] [place] [id number] [place] [address] 26074- 9094 May, Allergic rhinitis due to pollen J30.1 [place] [address] [place] [id number] [place] [address] 08541- 7697 Apr, Allergic rhinitis due to pollen J30.1 [place] [address] [place] [id number] [place] [address] 81189- 4242 Apr, Allergic rhinitis due to pollen J30.1 [place] [address] 71558- 8376 Apr, Encounter for immunization Z23 [place] [address] 65273- 1878 Apr, [place] [address] [place] [id number] [place] [address] 27232- 1741 Mar, Allergic rhinitis due to pollen J30.1 [place] [address] [place] [id number] [place] [address] 76717- 1045 Mar, Multiple allergies Z88.9 [place] [address] [place] [id number] [place] [address] 87003- 6038 Mar, Candidal vaginitis B37.3 [place] [address] [place] [id number] [place] [address] 00386- 6472 08 Mar, 2016 Allergic rhinitis due to pollen J30.1 [place] [address] [place] [id number] [place] [address] 35252- 0039 Jan, Asthma exacerbation J45.901 ; Fatigue, unspecified type R53.83 and Community acquired pneumonia J18.9 [facility] [address] [id number] Jan, Encounter for dental examination Z01.20 [facility] [address] [address]- 3631 Jan, Allergic rhinitis due to pollen J30.1 [facility] [address] [place] [address] 31171- 1376 Dec, Allergic rhinitis due to pollen J30.1 [facility] [address] [address]- 1243 Dec, [facility] [address] [id number] [place] [address] 79800- 4325 Dec, Allergic rhinitis due to pollen J30.1 [facility] [address] [address]- 7897 Dec, [facility] [address] [address]- 5181 Dec, [facility] [address] [place] [address] 68367- 8541 Dec, [facility] [address] [address]- 3539 Dec, Allergic rhinitis due to pollen J30.1 [facility] [address] [address]- 2188 Dec, [facility] [address] [address]- 5642 Dec, [facility] [address] [place] [id number] [place] [address] 38283- 9094 Dec, Allergic rhinitis due to pollen J30.1 [facility] [address] [address]- 6737 October, Allergic rhinitis due to pollen J30.1 [facility] [address] [place] [id number] [address]- 4025 October, Allergic rhinitis due to pollen J30.1 [facility] [address] [id number] [place] [address] 10013- 5981 October, [facility] [address] [place] [id number] [place] [address] 95975- 1760 October, [place] [address] [place] [id number] [place] [address] 57983- 1078 October, ADD (attention deficit disorder) F90.0 ; Major depressive disorder, recurrent episode, mild F33.0 and Uncomplicated severe persistent asthma J45.50 [place] [address] [place] [id number] [place] [address] 92187- 5142 Oct, Allergic rhinitis due to pollen J30.1 [place] [address] [place] [id number] [place] [address] 03832- 8618 Oct, ADD (attention deficit disorder) F90.0 [place] [address] [place] [id number] [place] [address] 82686- 5084 Oct, Allergic rhinitis due to pollen 477.0 [place] [address] [place] [id number] [place] [address] 01919- 2370 Aug, Allergic rhinitis due to pollen 477.0 [place] [address] [place] [address] 11434- 8877 Aug, 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 [place] [address] [place] [id number] [place] [address] 89119- 9787 Aug, [place] [address] [place] [id number] [place] [address] 86811- 2188 Aug, Allergic rhinitis due to pollen 477.0 [place] [address] [place] [address] 41288- 0784 Aug, Allergic rhinitis due to pollen 477.0 [place] [address] [place] [id number] [place] [address] 19460- 8476 Aug, Allergic rhinitis due to pollen 477.0 [facility] [address] [place] [address] 35861- 6435 Aug, Exposure to influenza Z20.828 [facility] [address] [place] [address] [id number] 19 Aug, 2015 Encounter for dental examination and cleaning without abnormal findings Z01.20 [place] [address] [place] [id number] [place] [address] 77733- 8435 Aug, Allergic rhinitis due to pollen J30.1 [place] [address] 70217- 8879 Aug, [place] [address] 17756- 7169 Aug, 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 [place] [address] 56501- 8190 Jul, [place] [address] 51090- 7910 Jul, Allergic rhinitis due to pollen 477.0 [place] [address] [place] [id number] [place] [address] 95808- 2561 Jul, [place] [address] [place] [id number] [place] [address] 14185- 2936 Jul, Allergic rhinitis due to pollen 477.0 [place] [address] [place] [id number] [place] [address] 25383- 4848 Jun, ADD (attention deficit disorder) F90.0 ; Acquired hypothyroidism E03.9 ; PCOS (polycystic ovarian syndrome) E28.2 ; Polyarthralgia M25.50 and On stimulant medication Z79.899 [place] [address] [place] [id number] [place] [address] 21827- 6681 16 Apr, 2015 Encounter for immunization Z23 [place] [address] 78465- 2963 16 Mar, 2015 Allergic rhinitis due to pollen 477.0 [facility] [address] [place] [address] 07685- 5493 Mar, Influenza vaccine administered V04.81 [facility] [address] [place] [address] 20295- 3898 Mar, [facility] [address] [id number] [place] [address] 64352- 9547 Jan, Allergic rhinitis due to pollen 477.0 [facility] [address] [place] [id number] [place] [address] 32373- 3104 Jan, Allergic rhinitis due to pollen 477.0 [facility] [address] [id number] [place] [address] 04470- 6185 Jan, Allergic rhinitis due to pollen 477.0 [facility] [address] [id number] [place] [address] [id number] Jan, Dental examination V72.2 [facility] [address] [place] [id number] [place] [address] 54534- 4993 Dec, Allergic rhinitis due to pollen 477.0 [facility] [address] [place] [address] 49362- 7800 October, [facility] [address] [place] [address] 99867- 5457 Oct, [facility] [address] [id number] [place] [address] 51431- 7888 Oct, [facility] [address] [place] [address] 78342- 7430 Aug, [facility] [address] [id number] [place] [address] 54982- 7616 Aug, [facility] [address] [address]- 7460 Aug, [facility] [address] [id number] [place] [address]- 7156 Aug, [facility] [place] [facility] [address] [id number] [place] [address]- 8282 Aug, [facility] [place] [facility] [address] [id number] [place] [address]- 8332 Aug, [facility] [place] [facility] [address] [id number] [place] [address]- 1212 Aug, [facility] [place] [facility] [address] [id number] [place] [address]- 7398 Aug, [facility] [place] [facility] [address] [id number] [place] [address]- 8905 Jul, [facility] [place] [facility] [address] [id number] [place] [address]- 8731 Jul, [facility] [place] [facility] [address] [facility] [id number] [place] [address]- 7349 Jul, [facility] [place] [facility] [address] [id number] [place] [address]- 7833 Jul, [facility] [place] [facility] [address] [facility] [id number] [place] [address]- 4995 Jul, [facility] [place] [facility] [address] [facility] [id number] [place] [address]- 8915 Jul, [facility] [place] [facility] [address] [id number] [place] [address]- 8447 Jul, [facility] [place] [facility] [address] [id number] [place] [address]- 2220 Jul, [facility] [place] [facility] [address] [id number] [place] [address]- 0274 Jul, [facility] [place] [facility] [address] [id number] [place] [address]- 8069 Jul, [facility] [place] [facility] [address] [id number] [place] [address]- 3523 Jul, [facility] [place] [facility] [address] [id number] [place] [address]- 1970 Jun, [facility] [place] [facility] [address] [id number] [place] 9960 Jun, [facility] [place] [facility] [address] [id number] [place] 0976 Jun, [facility] [place] [facility] [address] [id number] [place] [address]- 1773 Jun, [facility] [place] [facility] [address] [id number] [place] 5580 Jun, [facility] [place] [facility] [address] [id number] [place] [address]- 9613 Jun, [facility] [place] [facility] [address] [id number] [place] [address]- 3352 May, [facility] [place] [facility] [address] [id number] [place] [address]- 2106 May, [facility] [place] [facility] [address] [id number] [place] [address] May, [facility] [place] [facility] [address] [id number] [place] [address] May, [facility] [place] [facility] [address] [id number] [place] [address] May, [facility] [place] [facility] [address] [id number] [place] [address] May, [facility] [place] [facility] [address] [id number] [place] [address] Apr, [facility] [place] [facility] [address] [id number] [place] [address] Apr, [facility] [place] [facility] [address] [id number] [place] [address] Mar, [facility] [place] [facility] [address] [id number] [place] [address] Mar, [facility] [place] [facility] [address] [id number] [place] [address] Mar, [facility] [place] [facility] [address] [id number] [place] [address] Mar, [facility] [place] [facility] [address] [id number] [place] [address] Mar, [facility] [place] [facility] [address] [id number] [place] [address] Mar, [facility] [place] [facility] [address] [id number] [place] [address] Jan, [facility] [place] [facility] [address] [id number] [place] [address] Jan, [facility] [place] [facility] [address] [id number] [place] [address] Jan, [facility] [place] [facility] [address] [id number] [place] [address] Jan, [facility] [place] [facility] [address] [id number] [place] [address]- [address] Jan, [facility] [place] [facility] [address] [id number] [place] [address]- [address] Jan, [facility] [place] [facility] [address] [id number] [place] [address] Dec, [facility] [place] [facility] [address] [id number] [place] [address]- [address] Dec, [facility] [place] [facility] [address] [id number] [place] [address] Dec, [facility] [place] [facility] [address] [id number] [place] [address] Dec, [facility] [place] [facility] [address] [id number] [place] [address]- [address] Dec, [facility] [place] [facility] [address] [id number] [place] [address]- 8177 Dec, [facility] [place] [facility] [address] [id number] [place] [address] Dec, [facility] [place] [facility] [address] [id number] [place] [address] Dec, [facility] [place] [facility] [address] [id number] [place] [address] Dec, [facility] [place] [facility] [address] [id number] [place] [address] Dec, [facility] [place] [facility] [address] [id number] [place] [address] 6[address] Dec, [facility] [place] [facility] [address] [id number] [place] [address]116 Dec, [facility] [place] [facility] [address] [id number] [place] [address] 5188 Dec, [facility] [place] [facility] [address] [id number] [place] [address] 9251 Dec, [facility] [place] [facility] [address] [id number] [place] [address] Dec, [facility] [place] [facility] [address] [id number] [place] [address]46 Dec, [facility] [place] [facility] [address] [id number] [place] [address] 480[address] October, [facility] [place] [facility] [address] [id number] [place] [address]101 October, [facility] [place] [facility] [address] [id number] [place] [address] 287[address] October, [facility] [place] [facility] [address] [id number] [place] [address] 8025 October, [facility] [place] [facility] [address] [id number] [place] [address] 46[address] October, [facility] [place] [facility] [address] [id number] [place] [address] 2745 October, [facility] [place] [facility] [address] [id number] [place] [address] 3112 Oct, [facility] [place] [facility] [address] [id number] [place] [address] Oct, [facility] [place] [facility] [address] [id number] [place] [address] 7324 Oct, [facility] [place] [facility] [address] [id number] [place] [address] 3633 Oct, [facility] [place] [facility] [address] [id number] [place] [address] 1631 Oct, [facility] [place] [facility] [address] [id number] [place] [address] 3665 Oct, [facility] [place] [facility] [address] [id number] [place] [address]77 Aug, [facility] [place] [facility] [address] [id number] [place] [address] 5183 Aug, [facility] [place] [facility] [address] [id number] [place] [address]- 0720 Aug, [facility] [place] [facility] [address] [id number] [place] [address] 4788 Aug, [facility] [place] [facility] [address] [id number] [address] Jul, [facility] [place] [facility] [address] [id number] [place] [address] 5426 Jul, [facility] [place] [facility] [address] [id number] [place] [address] 2146 Jul, [facility] [place] [facility] [address] [id number] [place] [address] 3276 Jul, [facility] [place] [facility] [address] [id number] [place] [address]- 1362 Jun, [facility] [address] [id number] [place] [address] 7287 Jun, [facility] [place] [facility] [address] [id number] [place] [address] Jun, [facility] [address] [id number] [place] [address] 4708 Jun, [facility] [place] [facility] [address] [id number] [place] [address]- 4268 Jun, [facility] [address] [id number] [place] [address]- 9846 Jun, [facility] [address] [id number] [place] [address] 9317 Jun, [facility] [address] [id number] [place] [address] Jun, [facility] [address] [id number] [place] [address] Jun, [facility] [place] [facility] [address] [id number] [place] [address] 2940 Jun, [facility] [address] [facility] [id number] [place] [address]- [address]12 04 Jun, 2013 [facility] [place] [facility] [address] [id number] [place] [address] 9696 May, [facility] [place] [facility] [address] [id number] [place] [address]- 1051 May, [facility] [place] [facility] [address] [id number] [place] [address] 5979 May, [facility] [place] [facility] [address] [id number] [place] [address] May, [facility] [place] [facility] [address] [id number] [place] [address] 4791 May, [facility] [place] [facility] [address] [id number] [place] [address] 9491 May, [facility] [place] [facility] [address] [id number] [place] [address] May, [facility] [place] [facility] [address] [id number] [place] [address] 6571 Apr, [facility] [place] [facility] [address] [id number] [place] [address] Apr, [facility] [place] [facility] [address] [id number] [place] [address]- 0943 Apr, [facility] [place] [facility] [address] [id number] [place] [address] 0230 Apr, [facility] [place] [facility] [address] [id number] [place] [address] 3995 27 Mar, 2013 [facility] [place] [facility] [address] [id number] [place] [address] 7752 Mar, [facility] [place] [facility] [address] [id number] [place] [address] 6929 Mar, [facility] [place] [facility] [address] [id number] [place] [address]- 5290 23 Mar, 2013 [facility] [place] [facility] [address] [id number] [place] [address] 2001 Mar, [facility] [place] [facility] [address] [id number] [place] [address] 6405 Mar, [facility] [place] [facility] [address] [id number] [place] [address] 8801 Jan, [facility] [place] [facility] [address] [id number] [place] [address]- 0600 Jan, [facility] [place] [facility] [address] [id number] [place] [address]- 9516 Jan, [facility] [place] [facility] [address] [id number] [place] [address]- 8409 Jan, [facility] [address] [id number] [place] [address] Jan, [facility] [place] [facility] [address] [id number] [place] [address]- 2345 Dec, [facility] [place] [facility] [address] [id number] [place] [address]- 7679 Dec, [facility] [place] [facility] [address] [id number] [place] [address]- 1606 Dec, [facility] [place] [facility] [address] [id number] [place] [address] Dec, [facility] [place] [facility] [address] [id number] [place] [address]- 2045 Dec, [facility] [place] [facility] [address] [id number] [place] [address]- 9198 Dec, [facility] [place] [facility] [address] [id number] [place] [address]- 7786 Dec, [facility] [place] [facility] [address] [id number] [place] [address]- 5141 Dec, [facility] [place] [facility] [address] [id number] [place] [address]- 4807 October, [facility] [place] [facility] [address] [id number] [place] [address]- 7508 October, [facility] [place] [facility] [address] [id number] [place] [address]- 8590 October, [facility] [place] [facility] [address] [id number] [place] [address] 24 Oct, 2012 [facility] [place] [facility] [address] [id number] [place] [address] Oct, [facility] [place] [facility] [address] [id number] [place] [address] 17 Oct, 2012 [facility] [place] [facility] [address] [id number] [place] [address]- 0148 Oct, [facility] [place] [facility] [address] [id number] [place] [address]- 7934 Aug, [facility] [place] [facility] [address] [id number] [place] [address]- 5076 Aug, [facility] [place] [facility] [address] [id number] [place] [address]- 8769 Aug, [facility] [place] [facility] [address] [id number] [place] [address]- 2477 Jul, [facility] [place] [facility] [address] [id number] [place] [address]- 3147 May, [facility] [place] [facility] [address] [id number] [place] [address]- 7945 May, [facility] [place] [facility] [address] [id number] [place] [address]- 2184 Apr, [facility] [address] [id number] [place] [address]- 7054 Apr, [facility] [place] [facility] [address] [id number] [place] [address]- 6572 Apr, [facility] [address] [id number] [place] [address]- 5368 Apr, [facility] [place] [facility] [address] [id number] [place] [address]- 8842 Apr, [facility] [place] [facility] [address] [id number] [place] [address]- 6295 Apr, [facility] [place] [facility] [address] [id number] [place] [address] Apr, [facility] [place] [facility] [address] [id number] [place] [address]- 6872 Apr, [facility] [place] [facility] [address] [id number] [place] [address]- 4904 Apr, [facility] [place] [facility] [address] [id number] [place] [address]- 1946 Apr, [facility] [place] [facility] [address] [id number] [place] [address]- 7004 Apr, [facility] [place] [facility] [address] [id number] [place] [address]- 4264 Apr, [facility] [place] [facility] [address] [id number] [place] [address]- 5332 Mar, [facility] [place] [facility] [address] [id number] [place] [address]- 0268 Jan, [facility] [place] [facility] [address] [id number] [place] [address]- 8664 Dec, [facility] [place] [facility] [address] [id number] [place] [address]- 8949 October, [facility] [place] [facility] [address] [id number] [place] [address]- 8584 Oct, [facility] [place] [facility] [address] [id number] [place] [address]- 1118 Oct, [facility] [place] [facility] [address] [id number] [place] [address]- 0251 Oct, [facility] [place] [facility] [address] [id number] [place] [address]- 1246 Aug, [facility] [place] [facility] [address] [id number] [place] [address]- 9512 Aug, [facility] [place] [facility] [address] [id number] [place] [address]- 6139 Aug, [facility] [place] [facility] [address] [id number] [place] [address]- 2556 16 Aug, 2011 [facility] [place] [facility] [address] [id number] [place] [address]- 3825 15 Aug, 2011 [facility] [place] [facility] [address] [id number] [address]46 02 Aug, 2011 [facility] [id number] [address]- 7426 Jun, [facility] [id number] [address]- 6176 Apr, [facility] [id number] [address]- 2076 Jun, [facility] [id number] [address]- 2546 Jun, [facility] [id number] [address]- 4633 May, [facility] [id number] [address]- 3286 May, [facility] [id number] [address]- 6677 Apr, [facility] [address] [id number] [address]- 7428 13 Apr, 2009 IMMUNIZATIONS No Known Immunizations SOCIAL HISTORY Never Assessed REASON FOR VISIT Refill request PLAN OF CARE VITAL SIGNS MEDICATIONS Medication Instructions Dosage Frequency Start Date End Date Duration Status Symbicort 160-4.5 MCG/ACT Inhalation Twice a day 2 puffs 12h 23 Jul, 2017 90 days Active RESULTS No Results PROCEDURES [...] History see above surgeries Hospitalization History Anaphylactic shock-[facility] 08/23/16
--- OUTSIDE RECORDS SUMMARY | 2018-07-18 07:43 | XMS REPORT ---
Author BALJEET Nolasco [facility] eClinicalWorks Address Unknown Phone Unavailable Care Team Providers Care Terrazzo Worker Name Role Phone BALJEET WILKINS CP Unavailable Allergies No Known Allergies Problems Problem Type Condition ICD-9 Code Onset Dates Condition Status Problem Nonspecific abnormal electrocardiogram (ECG) (EKG) 794.31 Active Problem PPV23 (PNEUMOVAX) DX V03.82 Active Problem MMR DX V06.4 Active Assessment Allergic rhinitis due to pollen 477.0 Active Problem Asthma, unspecified, with (acute) exacerbation 493.92 Active Problem Need for prophylactic vaccination with tetanus toxoid alone V03.7 Active Problem Palpitations 785.1 Active Problem Allergic rhinitis due to pollen 477.0 Active Problem Urinary frequency 788.41 Active Problem Other and unspecified hyperlipidemia 272.4 Active Problem Polycystic ovaries 256.4 Active Medications No Known Medications Procedures Procedure Coding System Code Date IMMUNOTHERAPY INJECTIONS CPT-4 06389 Mar 18, 2015 Results Name Result Date Reference Range Unit Abnormality Flag IMMUNOTHERAPY, 2 OR MORE INJECTIONS Summary Purpose eClinicalWorks Submission
--- OUTSIDE RECORDS SUMMARY | 2018-07-18 07:43 | XMS REPORT ---
Author Author SAGAR NAVA [employer] Address Unknown Phone Unavailable Care Team Providers Care Operations Support Specialist Name Role Phone SAGAR NAVA CP Unavailable Allergies No Known Allergies Problems Problem Type Condition Code Onset Dates Condition Status Assessment Allergic rhinitis due to pollen J30.1 Active Problem Major depressive disorder, recurrent episode, mild F33.0 Active Problem Vitamin D deficiency E55.9 Active Problem ADD (attention deficit disorder) F90.0 Active Problem Acquired hypothyroidism E03.9 Active Problem Allergic rhinitis due to pollen J30.1 Active Problem Migraine with aura and without status migrainosus, not intractable G43.109 Active Problem Uncomplicated severe persistent asthma J45.50 Active Problem Gastroesophageal reflux disease without esophagitis K21.9 Active Problem PCOS (polycystic ovarian syndrome) E28.2 Active Medications No Known Medications Procedures Procedure Coding System Code Date IMMUNOTHERAPY INJECTIONS CPT-4 30242 January 29, 2016 Results No Known Results Summary Purpose eClinicalWorks Submission
--- OUTSIDE RECORDS SUMMARY | 2018-07-18 07:43 | XMS REPORT ---
Author Author BRANDY SAGAR Organization [facility] Address [address] [place] [address] Care Team Providers Care Career Development Associate Name Role Phone SAGAR NAVA Unavailable PROBLEMS Type Condition ICD9-CM Code [id number] Code Onset Dates Condition Status SNOMED Code Problem ADD (attention deficit disorder) F90.0 Active 722886981 Problem Major depressive disorder, recurrent episode, mild F33.0 Active 264269145 Problem Allergic rhinitis due to pollen J30.1 Active 70687344 Problem Current chronic use of inhaled steroid Z79.51 Active 782739088 Problem Asthma exacerbation J45.901 Active 983467567 Problem Pure hypercholesterolemia E78.00 Active 689785726 Problem PCOS (polycystic ovarian syndrome) E28.2 Active 62747937 Problem Multiple food allergies Z91.018 Active 248503607 Problem Dental examination Z01.20 Active 928971556 Problem Uncomplicated severe persistent asthma J45.50 Active 566329555 Problem Gastroesophageal reflux disease without esophagitis K21.9 Active 385322557 Problem Migraine with aura and without status migrainosus, not intractable G43.109 Active 0792692 Problem Vitamin D deficiency E55.9 Active 61871208 Problem Acquired hypothyroidism E03.9 Active 814401003 ALLERGIES No Information SOCIAL HISTORY Never Assessed PLAN OF CARE VITAL SIGNS MEDICATIONS Unknown Medications RESULTS No Results PROCEDURES Procedure Date Ordered Result Body Site IMMUNOTHERAPY, 2 OR MORE INJECTIONS 2016-09-21 N/A IMMUNOTHERAPY INJECTIONS September 21, 2016 IMMUNIZATIONS No Known Immunizations MEDICAL (GENERAL) HISTORY [...] History see above surgeries Hospitalization History Anaphylactic [facility] 08/23/16
--- OUTSIDE RECORDS SUMMARY | 2018-07-18 07:43 | XMS REPORT ---
Author Author BRANDY SAGAR [facility] Address [address] [place] [address] Care Team Providers Care Finishing Range Supervisor Name Role Phone BRANDYTEZ HOYTHANY Unavailable PROBLEMS Type Condition ICD9-CM Code XGG52-EZ Code Onset Dates Condition Status SNOMED Code Problem Migraine with aura and without status migrainosus, not intractable G43.109 Active 1468598 Problem PCOS (polycystic ovarian syndrome) E28.2 Active 43515505 Problem Uncomplicated severe persistent asthma J45.50 Active 942536209 Problem Severe persistent asthma with exacerbation J45.51 Active 814721732 Problem Other elevated white blood cell (WBC) count D72.828 Active 049699114 Problem Multiple food allergies Z91.018 Active 607952943 Problem Pure hypercholesterolemia E78.00 Active 040545439 Problem Current chronic use of inhaled steroid Z79.51 Active 449959200 Problem Asthma exacerbation J45.901 Active 477460715 Problem ADD (attention deficit disorder) F90.0 Active 233490785 Problem Allergic rhinitis due to pollen J30.1 Active 53519928 Problem Vitamin D deficiency E55.9 Active 94408191 Problem Major depressive disorder, recurrent episode, mild F33.0 Active 225239659 Problem Acquired hypothyroidism E03.9 Active 770068398 Problem Gastroesophageal reflux disease without esophagitis K21.9 Active 918166532 ALLERGIES No Information ENCOUNTERS Encounter Location Date Diagnosis [facility] [address] [facility] [id number] [address] Aug, Haemophilus influenzae infection A49.2 [facility] [address] [address] Aug, Cough productive of purulent sputum R05 [facility] [address] [place] [id number] [address] Aug, [facility] [address] [address]- [address] 08 Aug, 2017 Pulmonary congestion R09.89 [place] [id number]- [address] Aug, Severe persistent asthma with exacerbation J45.51 ; Hiatal hernia K44.9 and Gastroesophageal reflux disease without esophagitis K21.[address] [address]- 86[address] Aug, Other elevated white blood cell (WBC) count D72.[address] 36714- 7910 Aug, Uncomplicated severe persistent asthma J45.[address] 81560- 9183 Aug, Pure hypercholesterolemia E78.00 ; Uncomplicated severe persistent asthma J45.50 and Acquired hypothyroidism E03.[address] 24938- 7534 20 Aug, 2017 Acquired hypothyroidism E03.9 ; Pure hypercholesterolemia E78.00 and Uncomplicated severe persistent asthma J45.[address] 52581- 7460 15 Aug, 2017 Allergic rhinitis due to pollen J30.[address] 28799- 9304 Aug, Allergic rhinitis due to pollen J30.1 [place] [address] 09704- 5935 Aug, [place] [address] [id number] Jul, Pharyngitis, unspecified etiology J02.9 and Lymphadenopathy R59.[address] 41153- 8138 Jul, ADD (attention deficit disorder) F90.0 [place] [id number] [place] [address] 41357- 7156 Jul, Allergic rhinitis due to pollen J30.1 [place] [address] 38495- 9818 Jul, Dental examination Z01.20 [place] [address] 07696- 4427 Jun, Cough productive of purulent sputum R05 [place] [address] 92071- 6208 Jun, Allergic rhinitis due to pollen J30.1 [place] [address] 11904- 7507 Jun, [place] [address] 75714- 6886 Jun, Allergic rhinitis due to pollen J30.1 [place] [address] 69070- 8981 Jun, Allergic rhinitis due to pollen J30.1 [place] [address] [place] [id number] [place] [address] 14375- 4813 May, Allergic rhinitis due to pollen J30.1 [place] [address] [place] [id number] [place] [address] 44702- 7371 May, Pneumonia due to Haemophilus influenzae, unspecified laterality, unspecified part of lung J14 [place] [address] [place] [id number] [place] [address] 13766- 1361 May, Allergic rhinitis due to pollen J30.1 [place] [address] [place] [id number] [place] [address] 27140- 5031 May, Other adverse food reactions, not elsewhere classified, initial encounter T78.1XXA and Pneumonia due to Haemophilus influenzae, unspecified laterality, unspecified part of lung J14 [place] [address] [place] [id number] [place] [address] 19707- 5748 May, Pneumonia due to Haemophilus influenzae, unspecified laterality, unspecified part of lung J14 [place] [address] [place] [id number] [place] [address] 99183- 8768 May, Multiple food allergies Z91.018 ; Uncomplicated severe persistent asthma J45.50 ; Cough productive of purulent sputum R05 and Uses central nervous system stimulants F15.90 [place] [address] [place] [id number] [place] [address] 92717- 8944 Apr, Allergic rhinitis due to pollen J30.1 [place] [address] [place] [id number] [place] [address] 78536- 3558 Apr, Allergic rhinitis due to pollen J30.1 [place] [address] 22244- 2448 Apr, Allergic rhinitis due to pollen J30.1 [place] [address] 72093- 4980 Apr, ADD (attention deficit disorder) F90.0 [place] [address] 05338- 0233 28 Mar, 2017 Allergic rhinitis due to pollen J30.1 [place] [address] [place] [id number] [place] [address] 68154- 4051 21 Mar, 2017 Encounter for immunization Z23 [place] [address] [place] [id number] [place] [address] 15530- 3777 19 Mar, 2017 [place] [address] [place] [id number] [place] [address] 59351- 7771 14 Mar, 2017 Allergic rhinitis due to pollen J30.1 [place] [address] [place] [id number] [place] [address] 89705- 7548 07 Mar, 2017 Allergic rhinitis due to pollen J30.1 [place] [address] [place] [id number] [place] [address] 87807- 3230 16 Jan, 2017 Allergic rhinitis due to pollen J30.1 [place] [address] 14379- 5895 Jan, Allergic rhinitis due to pollen J30.1 [place] [id number] [place] [address] 71429- 5926 Dec, Uncomplicated severe persistent asthma J45.50 [place] [address] [place] [id number] [place] [address] 27120- 7911 Dec, Allergic rhinitis due to pollen J30.1 [place] [address] [place] [id number] [place] [address] 91710- 5462 Dec, Allergic rhinitis due to pollen J30.1 [place] [address] [place] [id number] [place] [address] 53444- 8874 Dec, Allergic rhinitis due to pollen J30.1 [place] [address] [place] [id number] [place] [address] 38217- 9238 Dec, ADD (attention deficit disorder) F90.0 [place] [address] [place] [id number] [place] [address] 59701- 4061 Dec, Allergic rhinitis due to pollen J30.1 [place] [address] [place] [id number] [place] [address] 75573- 6182 Dec, Screening for tuberculosis Z11.1 and Visit for TB skin test Z11.1 [place] [address] [place] [id number] [place] [address] 60133- 2085 Dec, Uncomplicated severe persistent asthma J45.50 ; Palpitations R00.2 ; Pericardial effusion (noninflammatory) I31.3 and Chest discomfort R07.89 [place] [address] [place] [address] 40672- 4205 Dec, Allergic rhinitis due to pollen J30.1 [place] [address] [place] [id number] [place] [address] 98192- 5785 Dec, Chronic cough R05 [place] [address] [place] [id number] [place] [address] 38591- 2690 Dec, [place] [address] [place] [id number] [place] [address] 26143- 0285 15 Dec, 2016 Allergic rhinitis due to pollen J30.1 [place] [address] [place] [id number] [place] [address] 34495- 7112 Dec, Allergic rhinitis due to pollen J30.1 [place] [address] [place] [id number] [place] [address] 54940- 5472 Dec, Chronic cough R05 [place] [address] 44098- 7249 October, Allergic rhinitis due to pollen J30.1 [place] [address] 62247- 2822 October, Allergic rhinitis due to pollen J30.1 [place] [address] [place] [id number] [place] [address] 86973- 7962 October, [place] [address] 62802- 8859 October, Asthma exacerbation J45.901 [place] [address] [place] [id number] [place] [address] 79795- 5983 October, Asthma exacerbation J45.901 and Current chronic use of inhaled steroid Z79.51 [place] [address] [place] [id number] [place] [address] 15548- 3444 October, Uncomplicated severe persistent asthma J45.50 [place] [address] [place] [id number] [place] [address] 46308- 2459 October, Allergic rhinitis due to pollen J30.1 [place] [address] [place] [id number] [place] [address] 63037- 1425 Oct, [place] [address] [place] [id number] [place] [address] 16604- 7166 Oct, Asthma exacerbation J45.901 and Sputum production R05 [place] [address] [place] [id number] [place] [address] 97105- 5991 Oct, Asthma exacerbation J45.901 [place] [address] [place] [id number] [place] [address] 72436- 1837 Oct, ADD (attention deficit disorder) F90.0 [place] [address] [place] [id number] [place] [address] 74463- 7694 Oct, ADD (attention deficit disorder) F90.0 [place] [address] 73227- 1960 Aug, Allergic rhinitis due to pollen J30.1 [place] [address] 33335- 0036 Aug, Atypical pneumonia J18.9 [place] [address] 71531- 7145 Aug, Allergic rhinitis due to pollen J30.1 [place] [address] 97914- 3109 Aug, Acquired hypothyroidism E03.9 [place] [address] 36544- 7504 Aug, Multiple food allergies Z91.018 ; Elevated blood pressure reading R03.0 and Anaphylaxis, subsequent encounter T78.2XXD [place] [address] [place] [id number] [place] [address] [id number] Aug, [place] [address] 13578- 3180 Aug, Anaphylaxis, initial encounter T78.2XXA [address] 47099- 1416 Aug, Allergic rhinitis due to pollen J30.1 [place] [address] [place] [id number] [place] [address] 61666- 9910 Aug, Dental examination Z01.[address] 18260- 0082 Aug, Allergic rhinitis due to pollen J30.1 [facility] [id number] [place] [address] 15747- 2429 06 Aug, 2016 Acquired hypothyroidism E03.9 and Pure hypercholesterolemia E78.00 [facility] [address] [place] [id number] [place] [address] 71226- 0656 Aug, ADD (attention deficit disorder) F90.0 ; Acquired hypothyroidism E03.9 and Pure hypercholesterolemia E78.00 [facility] [address] [place] [id number] [place] [address] 03977- 2640 Aug, Asthma exacerbation J45.901 [place] [address] 99488- 5393 Jul, Allergic rhinitis due to pollen J30.1 [facility] [address] [place] [id number] [place] [address] 11692- 4532 Jul, Allergic rhinitis due to pollen J30.1 [facility] [address] [place] [id number] [place] [address] 10648- 0546 Jul, [facility] [address] [place] [id number] [place] [address] 97591- 7056 Jul, Allergic rhinitis due to pollen J30.1 [facility] [address] [place] [id number] [place] [address] 40078- 5135 Jul, Other detention (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 and ADD ( attention deficit disorder) F90.0 [facility] [id number] [place] [address] 12309- 7534 Jul, Other rat exterminator (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 and ADD ( attention deficit disorder) F90.0 [facility] [address] [place] [id number] [place] [address] 88805- 3404 Jul, [facility] [address] [place] [id number] [place] [address] 85006- 7831 Jun, Allergic rhinitis due to pollen J30.1 [facility] [address] [place] [id number] [place] [address] 32741- 9084 Jun, Allergic rhinitis due to pollen J30.1 [facility] [address] [place] [id number] [place] [address] 29518- 2049 Jun, [place] [address] [place] [id number] [place] [address] 95489- 6683 May, Allergic rhinitis due to pollen J30.1 [facility] [address] [place] [id number] [place] [address] 17370- 5624 May, Allergic rhinitis due to pollen J30.1 [place] [address] [place] [id number] [place] [address] 46985- 0394 Apr, Allergic rhinitis due to pollen J30.1 [place] [address] [place] [id number] [place] [address] 02650- 6223 Apr, Allergic rhinitis due to pollen J30.1 [place] [address] 45873- 0509 Apr, Encounter for immunization Z23 [place] [address] 26271- 6183 Apr, [place] [address] [place] [id number] [place] [address] 13568- 1419 Mar, Allergic rhinitis due to pollen J30.1 [place] [address] [place] [id number] [place] [address] 06222- 1874 Mar, Multiple allergies Z88.9 [place] [address] [place] [id number] [place] [address] 62402- 5589 Mar, Candidal vaginitis B37.3 [place] [address] [place] [id number] [place] [address] 37264- 7381 08 Mar, 2016 Allergic rhinitis due to pollen J30.1 [place] [address] [place] [id number] [place] [address] 80423- 5968 Jan, Asthma exacerbation J45.901 ; Fatigue, unspecified type R53.83 and Community acquired pneumonia J18.9 [facility] [address] [id number] Jan, Encounter for dental examination Z01.20 [facility] [address] [address]- 6670 Jan, Allergic rhinitis due to pollen J30.1 [facility] [id number] [place] [address] 95747- 5934 Dec, Allergic rhinitis due to pollen J30.1 [facility] [address] [address]- 2856 Dec, [facility] [address] [place] [id number] [place] [address] 81951- 1063 Dec, Allergic rhinitis due to pollen J30.1 [facility] [address] [address]- 7653 Dec, [facility] [address] [address]- 0437 Dec, [facility] [id number] [place] [address] 88149- 9835 Dec, [facility] [address] [address]- 6754 Dec, Allergic rhinitis due to pollen J30.1 [facility] [address] [address]- 9256 Dec, [facility] [address] [address]- 6303 Dec, [facility] [address] [place] [id number] [place] [address] 46571- 3121 Dec, Allergic rhinitis due to pollen J30.1 [facility] [address] [address]- 2090 October, Allergic rhinitis due to pollen J30.1 [facility] [address] [place] [id number] [address]- 4935 October, Allergic rhinitis due to pollen J30.1 [facility] [address] [place] [id number] [place] [address] 33325- 5639 October, [facility] [address] [place] [id number] [place] [address] 35671- 9941 October, [place] [address] [place] [id number] [place] [address] 83639- 6787 October, ADD (attention deficit disorder) F90.0 ; Major depressive disorder, recurrent episode, mild F33.0 and Uncomplicated severe persistent asthma J45.50 [place] [address] [place] [id number] [place] [address] 71842- 4093 Oct, Allergic rhinitis due to pollen J30.1 [place] [address] [place] [id number] [place] [address] 71800- 3809 Oct, ADD (attention deficit disorder) F90.0 [place] [address] [place] [id number] [place] [address] 51570- 6302 Oct, Allergic rhinitis due to pollen 477.0 [place] [address] [place] [id number] [place] [address] 22301- 4535 Aug, Allergic rhinitis due to pollen 477.0 [place] [address] [place] [address] 75079- 6573 Aug, 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 [place] [address] [place] [id number] [place] [address] 90167- 6801 Aug, [place] [address] [place] [id number] [place] [address] 14785- 9604 Aug, Allergic rhinitis due to pollen 477.0 [place] [address] [place] [address] 41454- 0875 Aug, Allergic rhinitis due to pollen 477.0 [place] [address] [place] [id number] [place] [address] 52404- 2774 Aug, Allergic rhinitis due to pollen 477.0 [facility] [address] [place] [address] 31942- 9608 Aug, Exposure to influenza Z20.828 [facility] [address] [place] [address] [id number] 19 Aug, 2015 Encounter for dental examination and cleaning without abnormal findings Z01.20 [place] [address] [place] [id number] [place] [address] 97237- 7468 Aug, Allergic rhinitis due to pollen J30.1 [place] [address] 15220- 7870 Aug, [place] [address] 55562- 2473 Aug, 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 [place] [address] 48350- 8027 Jul, [place] [address] 08172- 8037 Jul, Allergic rhinitis due to pollen 477.0 [place] [address] [place] [id number] [place] [address] 72008- 2149 Jul, [place] [address] [place] [id number] [place] [address] 59991- 4157 Jul, Allergic rhinitis due to pollen 477.0 [place] [address] [place] [id number] [place] [address] 50834- 1627 Jun, ADD (attention deficit disorder) F90.0 ; Acquired hypothyroidism E03.9 ; PCOS (polycystic ovarian syndrome) E28.2 ; Polyarthralgia M25.50 and On stimulant medication Z79.899 [place] [address] [place] [id number] [place] [address] 52694- 5800 16 Apr, 2015 Encounter for immunization Z23 [place] [address] 61965- 0903 16 Mar, 2015 Allergic rhinitis due to pollen 477.0 [facility] [id number] [place] [address] 50361- 0723 Mar, Influenza vaccine administered V04.81 [facility] [id number] [place] [address] 13664- 9788 Mar, [facility] [address] [place] [id number] [place] [address] 55431- 7448 Jan, Allergic rhinitis due to pollen 477.0 [facility] [address] [place] [id number] [place] [address] 60469- 5398 Jan, Allergic rhinitis due to pollen 477.0 [facility] [address] [place] [id number] [place] [address] 80059- 5867 Jan, Allergic rhinitis due to pollen 477.0 [facility] [address] [place] [id number] [place] [address] [id number] Jan, Dental examination V72.2 [facility] [address] [place] [id number] [place] [address] 45467- 9354 Dec, Allergic rhinitis due to pollen 477.0 [facility] [address] [place] [address] 78937- 6722 October, [facility] [id number] [place] [address] 19484- 0815 Oct, [facility] [address] [place] [id number] [place] [address] 36885- 5334 Oct, [facility] [id number] [place] [address] 38755- 3048 Aug, [facility] [address] [place] [id number] [place] [address] 51567- 0901 Aug, [facility] [address] [address]- 1171 Aug, [facility] [address] [place] [id number] [place] [address]- 8908 Aug, [facility] [place] [facility] [address] [id number] [place] [address]- 6509 Aug, [facility] [place] [facility] [address] [id number] [place] [address]- 5412 Aug, [facility] [place] [facility] [address] [id number] [place] [address]- 7707 Aug, [facility] [place] [facility] [address] [id number] [place] [address]- 0237 Aug, [facility] [place] [facility] [address] [id number] [place] [address]- 8558 Jul, [facility] [place] [facility] [address] [id number] [place] [address]- 3208 Jul, [facility] [place] [facility] [address] [facility] [id number] [place] [address]- 4345 Jul, [facility] [place] [facility] [address] [id number] [place] [address]- 7094 Jul, [facility] [place] [facility] [address] [facility] [id number] [place] [address]- 7339 Jul, [facility] [place] [facility] [address] [facility] [id number] [place] [address]- 9239 Jul, [facility] [place] [facility] [address] [id number] [place] [address]- 9661 Jul, [facility] [place] [facility] [address] [id number] [place] [address]- 9658 Jul, [facility] [place] [facility] [address] [id number] [place] [address]- 1371 Jul, [facility] [place] [facility] [address] [id number] [place] [address]- 3770 Jul, [facility] [place] [facility] [address] [id number] [place] [address]- 0601 Jul, [facility] [place] [facility] [address] [id number] [place] [address] Jun, [facility] [place] [facility] [address] [id number] [id number] [address] Jun, [facility] [place] [facility] [address] [id number] [place] [address] Jun, [facility] [place] [facility] [address] [id number] [place] [address] Jun, [facility] [place] [facility] [address] [id number] [id number] [address] Jun, [facility] [place] [facility] [address] [id number] [place] [address] Jun, [facility] [place] [facility] [address] [id number] [place] [address] May, [facility] [place] [facility] [address] [id number] [place] [address] May, [facility] [place] [facility] [address] [id number] [place] [address] May, [facility] [place] [facility] [address] [id number] [place] [address] May, [facility] [place] [facility] [address] [id number] [place] [address] May, [facility] [place] [facility] [address] [id number] [place] [address] May, [facility] [place] [facility] [address] [id number] [id number] [address] Apr, [facility] [place] [facility] [address] [id number] [id number] [address] Apr, [facility] [place] [facility] [address] [id number] [place] [address] Mar, [facility] [place] [facility] [address] [id number] [place] [address] Mar, [facility] [place] [facility] [address] [id number] [place] [address] Mar, [facility] [place] [facility] [address] [id number] [place] [address] Mar, [facility] [place] [facility] [address] [id number] [place] [address] Mar, [facility] [place] [facility] [address] [id number] [place] [address] Mar, [facility] [place] [facility] [address] [id number] [place] [address] Jan, [facility] [place] [facility] [address] [id number] [place] [address] Jan, [facility] [place] [facility] [address] [id number] [place] [place] [address] Jan, [facility] [place] [facility] [address] [id number] [place] [address] Jan, [facility] [place] [facility] [address] [id number] [place] [address] Jan, [facility] [place] [facility] [address] [id number] [place] [address] Jan, [facility] [place] [facility] [address] [id number] [place] [address] Dec, [facility] [place] [facility] [address] [id number] [place] [address] Dec, [facility] [place] [facility] [address] [id number] [place] [address] 8983 Dec, [facility] [place] [facility] [address] [id number] [place] [address] 5688 Dec, [facility] [place] [facility] [address] [id number] [place] [address] 0653 Dec, [facility] [place] [facility] [address] [id number] [place] [address]157 Dec, [facility] [place] [facility] [address] [id number] [place] [address] 7667 Dec, [facility] [place] [facility] [address] [id number] [place] [address] Dec, [facility] [place] [facility] [address] [id number] [place] [address]- 7187 Dec, [facility] [place] [facility] [address] [id number] [place] [address] Dec, [facility] [place] [facility] [address] [id number] [place] [address] 38[address] Dec, [facility] [place] [facility] [address] [id number] [place] [address]- 2019 Dec, [facility] [place] [facility] [address] [id number] [place] [address] Dec, [facility] [place] [facility] [address] [id number] [place] [address] 5921 Dec, [facility] [place] [facility] [address] [id number] [place] [address]- 4883 Dec, [facility] [place] [facility] [address] [id number] [place] [address] 7521 Dec, [facility] [place] [facility] [address] [id number] [place] [address]- 9650 October, [facility] [place] [facility] [address] [id number] [place] [address]- 2069 October, [facility] [place] [facility] [address] [id number] [place] [address]- 8394 October, [facility] [place] [facility] [address] [id number] [place] [address] 6754 October, [facility] [place] [facility] [address] [id number] [place] [address]- 4165 October, [facility] [place] [facility] [address] [id number] [place] [address]- 2905 October, [facility] [place] [facility] [address] [id number] [place] [address]- 1596 Oct, [facility] [place] [facility] [address] [id number] [place] [address]- 5132 Oct, [facility] [place] [facility] [address] [id number] [place] [address]- 6339 Oct, [facility] [place] [facility] [address] [id number] [place] [address]- 2638 Oct, [facility] [place] [facility] [address] [id number] [place] [address]- 9580 Oct, [facility] [place] [facility] [address] [id number] [place] [address]- 9448 Oct, [facility] [place] [facility] [address] [id number] [place] [address]- 4663 Aug, [facility] [place] [facility] [address] [id number] [place] [address]- 0489 Aug, [facility] [place] [facility] [address] [id number] [place] [address]- 3892 Aug, [facility] [place] [facility] [address] [id number] [place] [address]- 6402 Aug, [facility] [place] [facility] [address] [id number] [address] Jul, [facility] [place] [facility] [address] [id number] [place] [address] 2668 Jul, [facility] [place] [facility] [address] [id number] [place] [address] 6165 Jul, [facility] [place] [facility] [address] [id number] [place] [address]- 9249 Jul, [facility] [place] [facility] [address] [id number] [place] [address]- 0344 Jun, [facility] [address] [id number] [place] [address]- 9393 Jun, [facility] [place] [facility] [address] [id number] [place] [address] Jun, [facility] [address] [id number] [place] [address]- 7715 Jun, [facility] [place] [facility] [address] [id number] [place] [address]- 0689 Jun, [facility] [address] [id number] [place] [address]- 9840 Jun, [facility] [address] [id number] [place] [address] 6622 Jun, [facility] [address] [id number] [place] [address] Jun, [facility] [address] [id number] [place] [address]- 8215 Jun, [facility] [place] [facility] [address] [id number] [place] [address]- 2167 Jun, [facility] [address] [facility] [id number] [place] [address]- 2569 04 Jun, 2013 [facility] [place] [facility] [address] [id number] [place] [address]- 5359 May, [facility] [place] [facility] [address] [id number] [place] [address]- 3296 May, [facility] [place] [facility] [address] [id number] [place] [address]- 6433 May, [facility] [place] [facility] [address] [id number] [place] [address] May, [facility] [place] [facility] [address] [id number] [place] [address]- 5370 May, [facility] [place] [facility] [address] [id number] [place] [address]- 7930 May, [facility] [place] [facility] [address] [id number] [place] [address] May, [facility] [place] [facility] [address] [id number] [place] [address]- 7844 Apr, [facility] [place] [facility] [address] [id number] [place] [address]- 4364 Apr, [facility] [place] [facility] [address] [id number] [place] [address]- 0426 Apr, [facility] [place] [facility] [address] [id number] [place] [address]- 3190 Apr, [facility] [place] [facility] [address] [id number] [place] [address]- 1158 27 Mar, 2013 [facility] [place] [facility] [address] [id number] [place] [address]- 0738 Mar, [facility] [place] [facility] [address] [id number] [place] [address]- 3658 Mar, [facility] [place] [facility] [address] [id number] [place] [address]- 7106 23 Mar, 2013 [facility] [place] [facility] [address] [id number] [place] [address]- 0998 Mar, [facility] [place] [facility] [address] [id number] [place] [address]- 9640 Mar, [facility] [place] [facility] [address] [id number] [place] [address]- 8244 Jan, [facility] [place] [facility] [address] [id number] [place] [address]- 3346 Jan, [facility] [place] [facility] [address] [id number] [place] [address]- 2773 Jan, [facility] [place] [facility] [address] [id number] [place] [address]- 5740 Jan, [facility] [address] [id number] [place] [address] Jan, [facility] [place] [facility] [address] [id number] [place] [address]- 8719 Dec, [facility] [place] [facility] [address] [id number] [place] [address]- 7088 Dec, [facility] [place] [facility] [address] [id number] [place] [address]- 1422 Dec, [facility] [place] [facility] [address] [id number] [place] [address] Dec, [facility] [place] [facility] [address] [id number] [place] [address]- 8201 Dec, [facility] [place] [facility] [address] [id number] [place] [address]- 3409 Dec, [facility] [place] [facility] [address] [id number] [place] [address]- 2159 Dec, [facility] [place] [facility] [address] [id number] [place] [address]- 5399 Dec, [facility] [place] [facility] [address] [id number] [place] [address]- 8005 October, [facility] [place] [facility] [address] [id number] [place] [address]- 4450 October, [facility] [place] [facility] [address] [id number] [place] [address]- 2413 October, [facility] [place] [facility] [address] [id number] [place] [address] 24 Oct, 2012 [facility] [place] [facility] [address] [id number] [place] [address] Oct, [facility] [place] [facility] [address] [id number] [place] [address] 17 Oct, 2012 [facility] [place] [facility] [address] [id number] [place] [address]- 2502 Oct, [facility] [place] [facility] [address] [id number] [place] [address]- 8114 Aug, [facility] [place] [facility] [address] [id number] [place] [address]- 2126 Aug, [facility] [place] [facility] [address] [id number] [place] [address]- 5118 Aug, [facility] [place] [facility] [address] [id number] [place] [address]- 9465 Jul, [facility] [place] [facility] [address] [id number] [place] [address]- 3906 May, [facility] [place] [facility] [address] [id number] [place] [address]- 5886 May, [facility] [place] [facility] [address] [id number] [place] [address]- 7516 Apr, [facility] [address] [id number] [place] [address]- 3647 Apr, [facility] [place] [facility] [address] [id number] [place] [address]- 8913 Apr, [facility] [address] [id number] [place] [address]- 4963 Apr, [facility] [place] [facility] [address] [id number] [place] [address]- 0384 Apr, [facility] [place] [facility] [address] [id number] [place] [address]- 0392 Apr, [facility] [place] [facility] [address] [id number] [place] [address] Apr, [facility] [place] [facility] [address] [id number] [place] [address]- 3026 Apr, [facility] [place] [facility] [address] [id number] [place] [address]- 0221 Apr, [facility] [place] [facility] [address] [id number] [place] [address]- 4001 Apr, [facility] [place] [facility] [address] [id number] [place] [address]- 6054 Apr, [facility] [place] [facility] [address] [id number] [place] [address]- 9276 Apr, [facility] [place] [facility] [address] [id number] [place] [address]- 1533 Mar, [facility] [place] [facility] [address] [id number] [place] [address]- 1536 Jan, [facility] [place] [facility] [address] [id number] [place] [address]- 1319 Dec, [facility] [place] [facility] [address] [id number] [place] [address]- 8519 October, [facility] [place] [facility] [address] [id number] [place] [address]- 9895 Oct, [facility] [place] [facility] [address] [id number] [place] [address]- 4263 Oct, [facility] [place] [facility] [address] [id number] [place] [address]- 8762 Oct, [facility] [place] [facility] [address] [id number] [place] [address]- 6952 Aug, [facility] [place] [facility] [address] [id number] [place] [address]- 0034 Aug, [facility] [place] [facility] [address] [id number] [place] [address]- 8419 Aug, [facility] [place] [facility] [address] [id number] [place] [address]- 8306 16 Aug, 2011 [facility] [place] [facility] [address] [id number] [place] [address]- 5476 15 Aug, 2011 [facility] [place] [facility] [address] [id number] [address] 2546 02 Aug, 2011 [facility] [id number] [address] 3516 Jun, [facility] [id number] [address]- 8946 Apr, [facility] [id number] [address]- 0978 Jun, [facility] [id number] [address]- 2546 Jun, [facility] [id number] [address]- 0248 May, [facility] [id number] [address]- 8636 May, [facility] [id number] [address]- 7993 Apr, [facility] [address] [id number] [address]- 5858 Apr, IMMUNIZATIONS No Known Immunizations SOCIAL HISTORY Never Assessed REASON FOR VISIT Allergy injection(s) PLAN OF CARE VITAL SIGNS MEDICATIONS Unknown Medications RESULTS No Results PROCEDURES Procedure Date Ordered Result Body Site IMMUNOTHERAPY, 2 OR MORE INJECTIONS 2017-01-26 N/A IMMUNOTHERAPY INJECTIONS January 26, 2017 INSTRUCTIONS MEDICATIONS ADMINISTERED No Known Medications [...] History see above surgeries Hospitalization History Anaphylactic shock-[facility] 08/23/16
--- OUTSIDE RECORDS SUMMARY | 2018-07-18 07:44 | XMS REPORT ---
Author Author SAGAR NAVA Organization [facility] Address [address] [place] [address] Care Team Providers Care [employer] Riveter Name Role Phone SAGAR NAVA Unavailable PROBLEMS Type Condition ICD9-CM Code [id number] Code Onset Dates Condition Status SNOMED Code Problem Gastroesophageal reflux disease without esophagitis K21.9 Active 050807786 Problem ADD (attention deficit disorder) F90.0 Active 356475312 Problem Acquired hypothyroidism E03.9 Active 884410857 Problem Current chronic use of inhaled steroid Z79.51 Active 023590630 Problem Asthma exacerbation J45.901 Active 183455685 Problem Pure hypercholesterolemia E78.00 Active 285623984 Problem Allergic rhinitis due to pollen J30.1 Active 48012855 Problem Multiple food allergies Z91.018 Active 282232126 Problem Dental examination Z01.20 Active 630641810 Problem Major depressive disorder, recurrent episode, mild F33.0 Active 811837422 Problem Uncomplicated severe persistent asthma J45.50 Active 614407125 Problem Migraine with aura and without status migrainosus, not intractable G43.109 Active 8104622 Problem Vitamin D deficiency E55.9 Active 19100197 Problem PCOS (polycystic ovarian syndrome) E28.2 Active 73000275 ALLERGIES Unknown Allergies SOCIAL HISTORY No smoking Hx information available PLAN OF CARE VITAL SIGNS MEDICATIONS Unknown Medications RESULTS No Results PROCEDURES Procedure Date Ordered Related Diagnosis Body Site IMMUNOTHERAPY INJECTIONS Apr 20, 2016 IMMUNIZATIONS No Known Immunizations
--- OUTSIDE RECORDS SUMMARY | 2018-07-18 07:44 | XMS REPORT ---
Author Author BRANDY SAGAR [facility] Address [address] [place] [address] Care Team Providers Care Quality Analyst Name Role Phone BRANDYTEZ HOYTHANY Unavailable PROBLEMS Type Condition ICD9-CM Code XEO47-VZ Code Onset Dates Condition Status SNOMED Code Problem Migraine with aura and without status migrainosus, not intractable G43.109 Active 2624754 Problem PCOS (polycystic ovarian syndrome) E28.2 Active 24566878 Problem Uncomplicated severe persistent asthma J45.50 Active 970956835 Problem Severe persistent asthma with exacerbation J45.51 Active 692459132 Problem Other elevated white blood cell (WBC) count D72.828 Active 025737326 Problem Multiple food allergies Z91.018 Active 866955552 Problem Pure hypercholesterolemia E78.00 Active 650541990 Problem Current chronic use of inhaled steroid Z79.51 Active 143581006 Problem Asthma exacerbation J45.901 Active 929850939 Problem ADD (attention deficit disorder) F90.0 Active 558584667 Problem Allergic rhinitis due to pollen J30.1 Active 39091597 Problem Vitamin D deficiency E55.9 Active 39665741 Problem Major depressive disorder, recurrent episode, mild F33.0 Active 283381919 Problem Acquired hypothyroidism E03.9 Active 802594754 Problem Gastroesophageal reflux disease without esophagitis K21.9 Active 631274973 ALLERGIES No Information ENCOUNTERS Encounter Location Date Diagnosis [facility] [address] [facility] [id number] [address] Aug, Haemophilus influenzae infection A49.2 [facility] [address], [place] [address] Aug, Cough productive of purulent sputum R05 [facility] [address] [place] [id number] [address] Aug, [facility] [address] [address]- [address] 08 Aug, 2017 Pulmonary congestion R09.89 [id number] 1004 Aug, Severe persistent asthma with exacerbation J45.51 ; Hiatal hernia K44.9 and Gastroesophageal reflux disease without esophagitis K21.[address] [address]- [address] Aug, Other elevated white blood cell (WBC) count D72.[address] 54900- 8387 Aug, Uncomplicated severe persistent asthma J45.[address] 17188- 3182 Aug, Pure hypercholesterolemia E78.00 ; Uncomplicated severe persistent asthma J45.50 and Acquired hypothyroidism E03.[address] 19737- 1020 20 Aug, 2017 Acquired hypothyroidism E03.9 ; Pure hypercholesterolemia E78.00 and Uncomplicated severe persistent asthma J45.[address] 69669- 0260 15 Aug, 2017 Allergic rhinitis due to pollen J30.[address] 76288- 8088 Aug, Allergic rhinitis due to pollen J30.1 [place] [address] 17865- 6048 Aug, [place] [address] [id number] Jul, Pharyngitis, unspecified etiology J02.9 and Lymphadenopathy R59.[address] 27149- 8006 Jul, ADD (attention deficit disorder) F90.0 [place] [id number] [place] [address] 47390- 6175 Jul, Allergic rhinitis due to pollen J30.1 [place] [address] 57293- 2607 Jul, Dental examination Z01.20 [place] [address] 47238- 6070 Jun, Cough productive of purulent sputum R05 [place] [address] 90360- 1846 Jun, Allergic rhinitis due to pollen J30.1 [place] [address] 06090- 9878 Jun, [place] [address] 46647- 3209 Jun, Allergic rhinitis due to pollen J30.1 [place] [address] 42093- 0339 Jun, Allergic rhinitis due to pollen J30.1 [place] [address] [place] [id number] [place] [address] 74117- 7974 May, Allergic rhinitis due to pollen J30.1 [place] [address] [place] [id number] [place] [address] 72879- 3055 May, Pneumonia due to Haemophilus influenzae, unspecified laterality, unspecified part of lung J14 [place] [address] [place] [id number] [place] [address] 23297- 2785 May, Allergic rhinitis due to pollen J30.1 [place] [address] [place] [id number] [place] [address] 92561- 1768 May, Other adverse food reactions, not elsewhere classified, initial encounter T78.1XXA and Pneumonia due to Haemophilus influenzae, unspecified laterality, unspecified part of lung J14 [place] [address] [place] [id number] [place] [address] 24188- 2118 May, Pneumonia due to Haemophilus influenzae, unspecified laterality, unspecified part of lung J14 [place] [address] [place] [id number] [place] [address] 07848- 1025 May, Multiple food allergies Z91.018 ; Uncomplicated severe persistent asthma J45.50 ; Cough productive of purulent sputum R05 and Uses central nervous system stimulants F15.90 [place] [address] [place] [id number] [place] [address] 94397- 7234 Apr, Allergic rhinitis due to pollen J30.1 [place] [address] [place] [id number] [place] [address] 51736- 5985 Apr, Allergic rhinitis due to pollen J30.1 [place] [address] 97906- 1811 Apr, Allergic rhinitis due to pollen J30.1 [place] [address] 08842- 4134 Apr, ADD (attention deficit disorder) F90.0 [place] [address] 73596- 0111 28 Mar, 2017 Allergic rhinitis due to pollen J30.1 [place] [address] [place] [id number] [place] [address] 44501- 2138 21 Mar, 2017 Encounter for immunization Z23 [place] [address] [place] [id number] [place] [address] 57265- 9774 19 Mar, 2017 [place] [address] [place] [id number] [place] [address] 45041- 4115 14 Mar, 2017 Allergic rhinitis due to pollen J30.1 [place] [address] [place] [id number] [place] [address] 58533- 1457 07 Mar, 2017 Allergic rhinitis due to pollen J30.1 [place] [address] [place] [id number] [place] [address] 34098- 8325 16 Jan, 2017 Allergic rhinitis due to pollen J30.1 [place] [address] 99383- 4534 Jan, Allergic rhinitis due to pollen J30.1 [place] [id number] [place] [address] 11062- 6935 Dec, Uncomplicated severe persistent asthma J45.50 [place] [address] [place] [id number] [place] [address] 37192- 6683 Dec, Allergic rhinitis due to pollen J30.1 [place] [address] [place] [id number] [place] [address] 32950- 5448 Dec, Allergic rhinitis due to pollen J30.1 [place] [address] [place] [id number] [place] [address] 07643- 5166 Dec, Allergic rhinitis due to pollen J30.1 [place] [address] [place] [id number] [place] [address] 56443- 7077 Dec, ADD (attention deficit disorder) F90.0 [place] [address] [place] [id number] [place] [address] 56670- 4515 Dec, Allergic rhinitis due to pollen J30.1 [place] [address] [place] [id number] [place] [address] 98359- 5615 Dec, Screening for tuberculosis Z11.1 and Visit for TB skin test Z11.1 [place] [address] [place] [id number] [place] [address] 72017- 7841 Dec, Uncomplicated severe persistent asthma J45.50 ; Palpitations R00.2 ; Pericardial effusion (noninflammatory) I31.3 and Chest discomfort R07.89 [place] [id number] [place] [address] 38182- 7132 Dec, Allergic rhinitis due to pollen J30.1 [place] [address] [place] [id number] [place] [address] 29319- 4321 Dec, Chronic cough R05 [place] [address] [place] [id number] [place] [address] 80581- 1196 Dec, [place] [address] [place] [id number] [place] [address] 80316- 7845 15 Dec, 2016 Allergic rhinitis due to pollen J30.1 [place] [address] [place] [id number] [place] [address] 34456- 0269 Dec, Allergic rhinitis due to pollen J30.1 [place] [address] [place] [id number] [place] [address] 06773- 4205 Dec, Chronic cough R05 [place] [address] 09475- 2517 October, Allergic rhinitis due to pollen J30.1 [place] [address] 88984- 8163 October, Allergic rhinitis due to pollen J30.1 [place] [address] [place] [id number] [place] [address] 89223- 1219 October, [place] [address] 43607- 5764 October, Asthma exacerbation J45.901 [place] [address] [place] [id number] [place] [address] 63999- 3445 October, Asthma exacerbation J45.901 and Current chronic use of inhaled steroid Z79.51 [place] [address] [place] [id number] [place] [address] 78703- 2907 October, Uncomplicated severe persistent asthma J45.50 [place] [address] [place] [id number] [place] [address] 96554- 2173 October, Allergic rhinitis due to pollen J30.1 [place] [address] [place] [id number] [place] [address] 41610- 7198 Oct, [place] [address] [place] [id number] [place] [address] 15765- 2276 Oct, Asthma exacerbation J45.901 and Sputum production R05 [place] [address] [place] [id number] [place] [address] 95855- 8160 Oct, Asthma exacerbation J45.901 [place] [address] [place] [id number] [place] [address] 37838- 3720 Oct, ADD (attention deficit disorder) F90.0 [place] [address] [place] [id number] [place] [address] 67932- 3908 Oct, ADD (attention deficit disorder) F90.0 [place] [address] 62104- 2210 Aug, Allergic rhinitis due to pollen J30.1 [place] [address] 44723- 8912 Aug, Atypical pneumonia J18.9 [place] [address] 46096- 1568 Aug, Allergic rhinitis due to pollen J30.1 [place] [address] 77638- 7197 Aug, Acquired hypothyroidism E03.9 [place] [address] 49584- 1567 Aug, Multiple food allergies Z91.018 ; Elevated blood pressure reading R03.0 and Anaphylaxis, subsequent encounter T78.2XXD [place] [address] [place] [id number] [place] [address] [id number] Aug, [place] [address] 90449- 4158 Aug, Anaphylaxis, initial encounter T78.2XXA [address] 98500- 9435 Aug, Allergic rhinitis due to pollen J30.1 [place] [address] [place] [id number] [place] [address] 12420- 6195 Aug, Dental examination Z01.[address] 28169- 2605 Aug, Allergic rhinitis due to pollen J30.1 [facility] [address] [place] [address] 80258- 2703 06 Aug, 2016 Acquired hypothyroidism E03.9 and Pure hypercholesterolemia E78.00 [facility] [address] [place] [id number] [place] [address] 93898- 8126 Aug, ADD (attention deficit disorder) F90.0 ; Acquired hypothyroidism E03.9 and Pure hypercholesterolemia E78.00 [facility] [address] [place] [id number] [place] [address] 14437- 2306 Aug, Asthma exacerbation J45.901 [place] [address] 73708- 9417 Jul, Allergic rhinitis due to pollen J30.1 [facility] [address] [place] [id number] [place] [address] 12779- 3567 Jul, Allergic rhinitis due to pollen J30.1 [facility] [address] [place] [id number] [place] [address] 86390- 6217 Jul, [facility] [address] [place] [id number] [place] [address] 98121- 1256 Jul, Allergic rhinitis due to pollen J30.1 [facility] [address] [place] [id number] [place] [address] 34551- 5510 Jul, Other custodial (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 and ADD ( attention deficit disorder) F90.0 [facility] [address] [place] [address] 78403- 5949 Jul, 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 servicer (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 and ADD ( attention deficit disorder) F90.0 [facility] [address] [place] [id number] [place] [address] 98526- 1942 Jul, [facility] [address] [place] [id number] [place] [address] 65064- 9322 Jun, Allergic rhinitis due to pollen J30.1 [facility] [address] [place] [id number] [place] [address] 47399- 8594 Jun, Allergic rhinitis due to pollen J30.1 [facility] [address] [place] [id number] [place] [address] 20841- 5517 Jun, [place] [address] [place] [id number] [place] [address] 34936- 8696 May, Allergic rhinitis due to pollen J30.1 [facility] [address] [place] [id number] [place] [address] 76081- 8252 May, Allergic rhinitis due to pollen J30.1 [place] [address] [place] [id number] [place] [address] 87763- 8687 Apr, Allergic rhinitis due to pollen J30.1 [place] [address] [place] [id number] [place] [address] 26922- 6012 Apr, Allergic rhinitis due to pollen J30.1 [place] [address] 49496- 7393 Apr, Encounter for immunization Z23 [place] [address] 85412- 8365 Apr, [place] [address] [place] [id number] [place] [address] 11906- 4758 Mar, Allergic rhinitis due to pollen J30.1 [place] [address] [place] [id number] [place] [address] 47873- 6337 Mar, Multiple allergies Z88.9 [place] [address] [place] [id number] [place] [address] 77117- 4235 Mar, Candidal vaginitis B37.3 [place] [address] [place] [id number] [place] [address] 25923- 6501 08 Mar, 2016 Allergic rhinitis due to pollen J30.1 [place] [address] [place] [id number] [place] [address] 52020- 3634 Jan, Asthma exacerbation J45.901 ; Fatigue, unspecified type R53.83 and Community acquired pneumonia J18.9 [facility] [address] [address] Jan, Encounter for dental examination Z01.20 [facility] [address], [place] [address]- 5827 Jan, Allergic rhinitis due to pollen J30.1 [facility] [address] [place] [address] 08160- 8316 Dec, Allergic rhinitis due to pollen J30.1 [facility] [address], [place] [address]- 0118 Dec, [facility] [address] [place] [id number] [place] [address] 09399- 9392 Dec, Allergic rhinitis due to pollen J30.1 [facility] [address], [place] [address]- 2599 Dec, [facility] [address], [place] [address]- 4420 Dec, [facility] [address] [place] [address] 59194- 3854 Dec, [facility] [address], [place] [address]- 4236 Dec, Allergic rhinitis due to pollen J30.1 [facility] [address], [place] [address]- 0421 Dec, [facility] [address], [place] [address]- 0371 Dec, [facility] [address] [place] [id number] [place] [address] 28892- 3598 Dec, Allergic rhinitis due to pollen J30.1 [facility] [address], [place] [address]- 3173 October, Allergic rhinitis due to pollen J30.1 [facility] [address] [place] [address] [address]- 8198 October, Allergic rhinitis due to pollen J30.1 [facility] [address] [place] [id number] [place] [address] 86806- 5995 October, [facility] [address] [place] [id number] [place] [address] 05370- 6761 October, [place] [address] [place] [id number] [place] [address] 60004- 5296 October, ADD (attention deficit disorder) F90.0 ; Major depressive disorder, recurrent episode, mild F33.0 and Uncomplicated severe persistent asthma J45.50 [place] [address] [place] [id number] [place] [address] 73408- 7597 Oct, Allergic rhinitis due to pollen J30.1 [place] [address] [place] [id number] [place] [address] 66206- 0011 Oct, ADD (attention deficit disorder) F90.0 [place] [address] [place] [id number] [place] [address] 99349- 4317 Oct, Allergic rhinitis due to pollen 477.0 [place] [address] [place] [id number] [place] [address] 20428- 0574 Aug, Allergic rhinitis due to pollen 477.0 [place] [address] [place] [address] 97258- 4699 Aug, 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 [place] [address] [place] [id number] [place] [address] 42646- 7598 Aug, [place] [address] [place] [id number] [place] [address] 20083- 5531 Aug, Allergic rhinitis due to pollen 477.0 [place] [address] [place] [address] 35291- 2279 Aug, Allergic rhinitis due to pollen 477.0 [place] [address] [place] [id number] [place] [address] 06094- 4600 Aug, Allergic rhinitis due to pollen 477.0 [facility] [address] [place] [address] 06453- 5922 Aug, Exposure to influenza Z20.828 [facility] [address] [place] [address] [id number] 19 Aug, 2015 Encounter for dental examination and cleaning without abnormal findings Z01.20 [place] [address] [place] [id number] [place] [address] 25068- 5781 Aug, Allergic rhinitis due to pollen J30.1 [place] [address] 64280- 7012 Aug, [place] [address] 04222- 6405 Aug, 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 [place] [address] 19614- 0472 Jul, [place] [address] 19195- 5501 Jul, Allergic rhinitis due to pollen 477.0 [place] [address] [place] [id number] [place] [address] 64145- 7092 Jul, [place] [address] [place] [id number] [place] [address] 46353- 3523 Jul, Allergic rhinitis due to pollen 477.0 [place] [address] [place] [id number] [place] [address] 91136- 2606 Jun, ADD (attention deficit disorder) F90.0 ; Acquired hypothyroidism E03.9 ; PCOS (polycystic ovarian syndrome) E28.2 ; Polyarthralgia M25.50 and On stimulant medication Z79.899 [place] [address] [place] [id number] [place] [address] 64700- 8818 16 Apr, 2015 Encounter for immunization Z23 [place] [address] 16805- 1300 16 Mar, 2015 Allergic rhinitis due to pollen 477.0 [facility] [address] [place] [address] 03329- 2656 Mar, Influenza vaccine administered V04.81 [facility] [address] [place] [address] 01583- 9401 Mar, [facility] [address] [place] [id number] [place] [address] 33061- 0442 Jan, Allergic rhinitis due to pollen 477.0 [facility] [address] [place] [id number] [place] [address] 94032- 4022 Jan, Allergic rhinitis due to pollen 477.0 [facility] [address] [place] [id number] [place] [address] 34150- 8292 Jan, Allergic rhinitis due to pollen 477.0 [facility] [address] [place] [id number] [place] [address] [id number] Jan, Dental examination V72.2 [facility] [address] [place] [id number] [place] [address] 38165- 6301 Dec, Allergic rhinitis due to pollen 477.0 [facility] [address] [place] [address] 12760- 7896 October, [facility] [address] [place] [address] 76467- 4622 Oct, [facility] [address] [place] [id number] [place] [address] 27499- 4281 Oct, [facility] [address] [place] [address] 77336- 7459 Aug, [facility] [address] [id number] [place] [address] 04087- 5721 Aug, [facility] [address], [place] [address]- 1316 Aug, [facility] [address] [id number] [place] [address]- 7384 Aug, [facility] [place] [facility] [address] [id number] [place] [address]- 6980 Aug, [facility] [place] [facility] [address] [id number] [place] [address]- 6971 Aug, [facility] [place] [facility] [address] [id number] [place] [address]- 8626 Aug, [facility] [place] [facility] [address] [id number] [place] [address]- 6087 Aug, [facility] [place] [facility] [address] [id number] [place] [address]- 4123 Jul, [facility] [place] [facility] [address] [id number] [place] [address]- 0683 Jul, [facility] [place] [facility] [address] [facility] [id number] [place] [address]- 0747 Jul, [facility] [place] [facility] [address] [id number] [place] [address]- 8663 Jul, [facility] [place] [facility] [address] [facility] [id number] [place] [address]- 3241 Jul, [facility] [place] [facility] [address] [facility] [id number] [place] [address]- 1085 Jul, [facility] [place] [facility] [address] [id number] [place] [address]- 6665 Jul, [facility] [place] [facility] [address] [id number] [place] [address]- 6151 Jul, [facility] [place] [facility] [address] [id number] [place] [address]- 2006 Jul, [facility] [place] [facility] [address] [id number] [place] [address]- 2240 Jul, [facility] [place] [facility] [address] [id number] [place] [address]- 5179 Jul, [facility] [place] [facility] [address] [id number] [place] [address]- 7850 Jun, [facility] [place] [facility] [address] [id number] [place] 8877 Jun, [facility] [place] [facility] [address] [id number] [place] 9687 Jun, [facility] [place] [facility] [address] [id number] [place] [address] Jun, [facility] [place] [facility] [address] [id number] [place] [address] Jun, [facility] [place] [facility] [address] [id number] [place] [address] Jun, [facility] [place] [facility] [address] [id number] [place] [address] May, [facility] [place] [facility] [address] [id number] [place] [address] May, [facility] [place] [facility] [address] [id number] [place] [address] May, [facility] [place] [facility] [address] [id number] [place] [address] May, [facility] [place] [facility] [address] [id number], [place] [address] May, [facility] [place] [facility] [address] [id number], [place] [address] May, [facility] [place] [facility] [address] [id number] [place] Apr, [facility] [place] [facility] [address] [id number] [place] [address] Apr, [facility] [place] [facility] [address] [id number], [place] [address] Mar, [facility] [place] [facility] [address] [id number], [place] [address] Mar, [facility] [place] [facility] [address] [id number] [place] [address] Mar, [facility] [place] [facility] [address] [id number] [place] [address] Mar, [facility] [place] [facility] [address] [id number] [place] [address] Mar, [facility] [place] [facility] [address] [id number] [place] [address] Mar, [facility] [place] [facility] [address] [id number] [place] [address] Jan, [facility] [place] [facility] [address] [id number] [place] [address] Jan, [facility] [place] [facility] [address] [id number] [place] [address] Jan, [facility] [place] [facility] [address] [id number] [place] [address] Jan, [facility] [place] [facility] [address] [id number] [place] [address] Jan, [facility] [place] [facility] [address] [id number] [place] [address] Jan, [facility] [place] [facility] [address] [id number] [place] [address] Dec, [facility] [place] [facility] [address] [id number] [place] [address] Dec, [facility] [place] [facility] [address] [id number] [place] [address] Dec, [facility] [place] [facility] [address] [id number] [place] [address] Dec, [facility] [place] [facility] [address] [id number] [place] [address] Dec, [facility] [place] [facility] [address] [id number] [place] [address] Dec, [facility] [place] [facility] [address] [id number] [place] [address] Dec, [facility] [place] [facility] [address] [id number] [place] [address] Dec, [facility] [place] [facility] [address] [id number] [place] [address] Dec, [facility] [place] [facility] [address] [id number] [place] [address] Dec, [facility] [place] [facility] [address] [id number] [place] [address] Dec, [facility] [place] [facility] [address] [id number] [place] [address] Dec, [facility] [place] [facility] [address] [id number] [place] [address] Dec, [facility] [place] [facility] [address] [id number] [place] [address] Dec, [facility] [place] [facility] [address] [id number] [place] [address] Dec, [facility] [place] [facility] [address] [id number] [place] [address] Dec, [facility] [place] [facility] [address] [id number] [place] [address] October, [facility] [place] [facility] [address] [id number] [place] [address] October, [facility] [place] [facility] [address] [id number] [place] [address] October, [facility] [place] [facility] [address] [id number] [place] [address] October, [facility] [place] [facility] [address] [id number] [place] [address] October, [facility] [place] [facility] [address] [id number] [place] [address] October, [facility] [place] [facility] [address] [id number] [place] [address] Oct, [facility] [place] [facility] [address] [id number] [place] [address] 46[address] Oct, [facility] [place] [facility] [address] [id number] [place] [address] Oct, [facility] [place] [facility] [address] [id number] [place] [address] 33[address] Oct, [facility] [place] [facility] [address] [id number] [place] [address] Oct, [facility] [place] [facility] [address] [id number] [place] [address] Oct, [facility] [place] [facility] [address] [id number] [place] [address] Aug, [facility] [place] [facility] [address] [id number] [place] [address] Aug, [facility] [place] [facility] [address] [id number] [place] [address] Aug, [facility] [place] [facility] [address] [id number] [place] [address] 4[address] Aug, [facility] [place] [facility] [address] [id number], [place] [address] Jul, [facility] [place] [facility] [address] [id number] [place] [address] Jul, [facility] [place] [facility] [address] [id number] [place] [address] Jul, [facility] [place] [facility] [address] [id number] [place] [address] Jul, [facility] [place] [facility] [address] [id number] [place] [address] 14[address] Jun, [facility] [address] [id number] [place] [address] Jun, [facility] [place] [facility] [address] [id number] [place] [address] Jun, [facility] [address] [id number] [place] [address] 12[address] Jun, [facility] [place] [facility] [address] [id number] [place] [address] 0[address] Jun, [facility] [address] [id number] [place] [address] 1004 Jun, [facility] [address] [id number] [place] [address] 2[address] Jun, [facility] [address] [id number] [place] [address] Jun, [facility] [address] [id number] [place] [address] 8725 Jun, [facility] [place] [facility] [address] [id number] [place] [address] Jun, [facility] [address] [facility] [id number] [place] [address] 04 Jun, 2013 [facility] [place] [facility] [address] [id number] [place] [address] 5[address] May, [facility] [place] [facility] [address] [id number] [place] [address]487 May, [facility] [place] [facility] [address] [id number] [place] [address] 48[address] May, [facility] [place] [facility] [address] [id number] [place] [address] May, [facility] [place] [facility] [address] [id number] [place] [address] 8237 May, [facility] [place] [facility] [address] [id number] [place] [address] 9008 May, [facility] [place] [facility] [address] [id number] [place] [address] May, [facility] [place] [facility] [address] [id number] [place] [address] 36[address] Apr, [facility] [place] [facility] [address] [id number] [place] [address] 3966 Apr, [facility] [place] [facility] [address] [id number] [place] [address] 1806 Apr, [facility] [place] [facility] [address] [id number] [place] [address] 9745 Apr, [facility] [place] [facility] [address] [id number] [place] [address]- [address]285 27 Mar, 2013 [facility] [place] [facility] [address] [id number] [place] [address]- 59[address] Mar, [facility] [place] [facility] [address] [id number] [place] [address] 3755 Mar, [facility] [place] [facility] [address] [id number] [place] [address]- 1153 23 Mar, 2013 [facility] [place] [facility] [address] [id number] [place] [address] 5931 Mar, [facility] [place] [facility] [address] [id number] [place] [address] 2250 Mar, [facility] [place] [facility] [address] [id number] [place] [address] 1052 Jan, [facility] [place] [facility] [address] [id number] [place] [address] 9677 Jan, [facility] [place] [facility] [address] [id number] [place] [address] 4629 Jan, [facility] [place] [facility] [address] [id number] [place] [address] Jan, [facility] [address] [id number] [place] [address] Jan, [facility] [place] [facility] [address] [id number] [place] [address]- 5305 Dec, [facility] [place] [facility] [address] [id number] [place] [address] 5026 Dec, [facility] [place] [facility] [address] [id number] [place] [address] 8667 Dec, [facility] [place] [facility] [address] [id number] [place] [address] Dec, [facility] [place] [facility] [address] [id number] [place] [address]- 5208 Dec, [facility] [place] [facility] [address] [id number] [place] [address] 8344 Dec, [facility] [place] [facility] [address] [id number] [place] [address]- 8097 Dec, [facility] [place] [facility] [address] [id number] [place] [address]- 0567 Dec, [facility] [place] [facility] [address] [id number] [place] [address]- 4378 October, [facility] [place] [facility] [address] [id number] [place] [address] 5850 October, [facility] [place] [facility] [address] [id number] [place] [address] 6112 October, [facility] [place] [facility] [address] [id number] [place] [address] 24 Oct, 2012 [facility] [place] [facility] [address] [id number] [place] [address] Oct, [facility] [place] [facility] [address] [id number] [place] [address] 17 Oct, 2012 [facility] [place] [facility] [address] [id number] [place] [address]- 4765 Oct, [facility] [place] [facility] [address] [id number] [place] [address]- 5577 Aug, [facility] [place] [facility] [address] [id number] [place] [address]- 9806 Aug, [facility] [place] [facility] [address] [id number] [place] [address]- 0525 Aug, [facility] [place] [facility] [address] [id number] [place] [address]- 7316 Jul, [facility] [place] [facility] [address] [id number] [place] [address]- 3216 May, [facility] [place] [facility] [address] [id number] [place] [address]- 5065 May, [facility] [place] [facility] [address] [id number] [place] [address]- 7577 Apr, [facility] [address] [id number] [place] [address]- 0287 Apr, [facility] [place] [facility] [address] [id number] [place] [address]- 9247 Apr, [facility] [address] [id number] [place] [address]- 7202 Apr, [facility] [place] [facility] [address] [id number] [place] [address]- 3203 Apr, [facility] [place] [facility] [address] [id number] [place] [address]- 3987 Apr, [facility] [place] [facility] [address] [id number] [place] [address] Apr, [facility] [place] [facility] [address] [id number] [place] [address]- 5812 Apr, [facility] [place] [facility] [address] [id number] [place] [address]- 1070 Apr, [facility] [place] [facility] [address] [id number] [place] [address]- 6518 Apr, [facility] [place] [facility] [address] [id number] [place] [address]- 9141 Apr, [facility] [place] [facility] [address] [id number] [place] [address]- 0116 Apr, [facility] [place] [facility] [address] [id number] [place] [address]- 3354 Mar, [facility] [place] [facility] [address] [id number] [place] [address]- 3427 Jan, [facility] [place] [facility] [address] [id number] [place] [address]- 3881 Dec, [facility] [place] [facility] [address] [id number] [place] [address]- 7543 October, [facility] [place] [facility] [address] [id number] [place] [address]- 2417 Oct, [facility] [place] [facility] [address] [id number] [place] [address]- 6744 Oct, [facility] [place] [facility] [address] [id number] [place] [address]- 2266 Oct, [facility] [place] [facility] [address] [id number] [place] [address]- 3906 Aug, [facility] [place] [facility] [address] [id number] [place] [address]- 6575 Aug, [facility] [place] [facility] [address] [id number] [place] [address]- 9059 Aug, [facility] [place] [facility] [address] [id number] [place] [address]- 8496 16 Aug, 2011 [facility] [place] [facility] [address] [id number] [place] [address]- 2543 15 Aug, 2011 [facility] [place] [facility] [address] [facility] [id number], [place] [address] 2546 02 Aug, 2011 [facility] [address], [place] [address] Jun, [facility] [address], [place] [address] 64[address] Apr, [facility] [address], [place] [address] 8[address] Jun, [facility] [address], [place] [address]- 2546 Jun, [facility] [address], [place] [address]- 7345 May, [facility] [address], [place] [address]- 2183 May, [facility] [address], [place] [address]113 Apr, [facility] [address] [id number], [place] [address] Apr, IMMUNIZATIONS No Known Immunizations SOCIAL HISTORY Never Assessed REASON FOR VISIT Allergy injection(s) patricia keith PLAN OF CARE VITAL SIGNS MEDICATIONS Unknown Medications RESULTS No Results PROCEDURES Procedure Date Ordered Result Body Site IMMUNOTHERAPY, 2 OR MORE INJECTIONS 2017-01-19 N/A IMMUNOTHERAPY INJECTIONS January 19, 2017 INSTRUCTIONS MEDICATIONS ADMINISTERED No Known [...] History see above surgeries Hospitalization History Anaphylactic shock-[facility] 08/23/16
--- OUTSIDE RECORDS SUMMARY | 2018-07-18 07:44 | XMS REPORT ---
Author Author SAGAR NAVA Organization [facility] Address [address] [place] [address] Care Team Providers Care Physician/Allergy/Immunology Name Role Phone BRANDYTEZSAGAR Unavailable PROBLEMS Type Condition ICD9-CM Code [id number] Code Onset Dates Condition Status SNOMED Code Problem ADD (attention deficit disorder) F90.0 Active 980496121 Problem Major depressive disorder, recurrent episode, mild F33.0 Active 261335284 Problem Allergic rhinitis due to pollen J30.1 Active 18383601 Problem Current chronic use of inhaled steroid Z79.51 Active 149434981 Problem Asthma exacerbation J45.901 Active 938248908 Problem Pure hypercholesterolemia E78.00 Active 548569364 Problem PCOS (polycystic ovarian syndrome) E28.2 Active 01639673 Problem Multiple food allergies Z91.018 Active 077281225 Problem Dental examination Z01.20 Active 353197731 Problem Uncomplicated severe persistent asthma J45.50 Active 912108550 Problem Gastroesophageal reflux disease without esophagitis K21.9 Active 850334535 Problem Migraine with aura and without status migrainosus, not intractable G43.109 Active 0450655 Problem Vitamin D deficiency E55.9 Active 52892221 Problem Acquired hypothyroidism E03.9 Active 771348858 ALLERGIES Unknown Allergies SOCIAL HISTORY No smoking Hx information available PLAN OF CARE VITAL SIGNS MEDICATIONS Unknown Medications RESULTS Name Result Date Reference Range AMERITOX 2016-07-07 PROCEDURES Procedure Date Ordered Related Diagnosis Body Site No Charge Jul 07, 2016 IMMUNIZATIONS No Known Immunizations
--- OUTSIDE RECORDS SUMMARY | 2018-07-18 07:44 | XMS REPORT ---
Author Author SAGAR NAVA [employer] Address Unknown Phone Unavailable Care Team Providers Care Employee Development Manager Name Role Phone SAGAR NAVA CP Unavailable Allergies No Known Allergies Problems Problem Type Condition Code Onset Dates Condition Status Problem Major depressive disorder, recurrent episode, mild F33.0 Active Problem ADD (attention deficit disorder) F90.0 Active Problem Acquired hypothyroidism E03.9 Active Problem Allergic rhinitis due to pollen J30.1 Active Problem Migraine with aura and without status migrainosus, not intractable G43.109 Active Problem Uncomplicated severe persistent asthma J45.50 Active Problem Gastroesophageal reflux disease without esophagitis K21.9 Active Problem PCOS (polycystic ovarian syndrome) E28.2 Active Medications Medication Code System Code Instructions Start Date End Date Status Dosage ProAir RespiClick [facility] [id number] 108 (90 Base) MCG/ACT Inhalation every 4 hrs December 31, 2015 1 puff as needed Results No Known Results Summary Purpose eClinical[employer] Submission
--- OUTSIDE RECORDS SUMMARY | 2018-07-18 07:44 | XMS REPORT ---
Author Author BRANDY SAGAR Organization [facility] Address [address] [place] [address] Care Team Providers Care Promotions Assistant Sales Marketing Name Role Phone TEZ NAVAHANY Unavailable PROBLEMS Type Condition ICD9-CM Code [id number] Code Onset Dates Condition Status SNOMED Code Problem ADD (attention deficit disorder) F90.0 Active 244426374 Problem Major depressive disorder, recurrent episode, mild F33.0 Active 469440998 Problem Allergic rhinitis due to pollen J30.1 Active 68575854 Problem Current chronic use of inhaled steroid Z79.51 Active 974373100 Problem Asthma exacerbation J45.901 Active 296395212 Problem Pure hypercholesterolemia E78.00 Active 495082182 Problem PCOS (polycystic ovarian syndrome) E28.2 Active 18469753 Problem Multiple food allergies Z91.018 Active 260269313 Problem Dental examination Z01.20 Active 772497015 Problem Uncomplicated severe persistent asthma J45.50 Active 724517398 Problem Gastroesophageal reflux disease without esophagitis K21.9 Active 852894109 Problem Migraine with aura and without status migrainosus, not intractable G43.109 Active 3007819 Problem Vitamin D deficiency E55.9 Active 47917687 Problem Acquired hypothyroidism E03.9 Active 944792290 ALLERGIES No Information SOCIAL HISTORY Never Assessed PLAN OF CARE VITAL SIGNS MEDICATIONS Unknown Medications RESULTS Name Result Date Reference Range DEXA 2016-12-15 PROCEDURES Procedure Date Ordered Result Body Site ASSAY OF GAMMAGLOBULIN IGE November 09, 2016 MANUAL CELL COUNT, EACH November 09, 2016 IMMUNIZATIONS No Known Immunizations MEDICAL (GENERAL) [...]
--- OUTSIDE RECORDS SUMMARY | 2018-07-18 07:44 | XMS REPORT ---
Author Author BRANDY SAGAR [facility] Address [address] [place] [address] Care Team Providers Care Hepatologist Name Role Phone TEZ NAAVHANY Unavailable PROBLEMS Type Condition ICD9-CM Code [id number] Code Onset Dates Condition Status SNOMED Code Problem ADD (attention deficit disorder) F90.0 Active 950424841 Problem Major depressive disorder, recurrent episode, mild F33.0 Active 863100193 Problem Allergic rhinitis due to pollen J30.1 Active 05295271 Problem Current chronic use of inhaled steroid Z79.51 Active 479029132 Problem Asthma exacerbation J45.901 Active 638986668 Problem Pure hypercholesterolemia E78.00 Active 951226014 Problem PCOS (polycystic ovarian syndrome) E28.2 Active 56774357 Problem Multiple food allergies Z91.018 Active 657278122 Problem Dental examination Z01.20 Active 294077076 Problem Uncomplicated severe persistent asthma J45.50 Active 011004750 Problem Gastroesophageal reflux disease without esophagitis K21.9 Active 091890503 Problem Migraine with aura and without status migrainosus, not intractable G43.109 Active 3081416 Problem Vitamin D deficiency E55.9 Active 26548218 Problem Acquired hypothyroidism E03.9 Active 754627590 ALLERGIES Substance Reaction Event Type Date Status Zithromax Unknown Drug Allergy Aug, Active Ceftin Unknown Drug Allergy Aug, Active Morphine Patient is a fast metabolizer and medication is not effective Drug Allergy Aug, Active [place] Unknown Non Drug Allergy Aug, Active Soybeans Unknown Non Drug Allergy Aug, Active Wheat Unknown Non Drug Allergy Aug, Active Malt Extract Unknown Non Drug Allergy Aug, Active Asprin Unknown Non Drug Allergy Aug, Active FLUORIDE VARNISH Unknown Non Drug Allergy Aug, Active SOCIAL HISTORY Never Assessed PLAN OF CARE Activity Details Follow Up prn Reason: VITAL SIGNS Height 68 in 2016-08-23 Temperature 98.9 degrees Fahrenheit 2016-08-23 Heart Rate 96 bpm 2016-08-23 Respiratory Rate 18 2016-08-23 Oximetry 100 % 2016-08-23 Blood pressure systolic 128 mmHg 2016-08-23 Blood pressure diastolic 84 mmHg 2016-08-23 MEDICATIONS Medication Instructions Dosage Frequency Start Date End Date Duration Status Ibuprofen 800 MG Orally every 8 hours 1 tablet 8h 30 days Active MetFORMIN HCl ER 1000 mg Orally Once a day 1 tablet with evening meal 24h Active Nasonex 50 mcg/actuation Nasally 2 times a day 1 spray in each nare 12h Jan, 90 days Active pantoprazole 40 mg by oral route Once a day 1 tablet 24h Aug, Active Lutera 0.1-20 MG-MCG Orally Once a day 1 tablet 24h Active ProAir RespiClick 108 (90 Base) MCG/ACT Inhalation every 4 hrs 1 puff as needed 4h Dec, Active Vitamin D 2000 UNIT Orally Once a day 1 tablet 24h Active Zoloft 50 MG Orally Once a day 1 tablet 24h Active Xopenex HFA 45 mcg/actuation 2 puffs by Inhalation route every 4-6 hoursPRN Apr, Active Xyzal 5 mg 1 tablet by Oral route 2 times per day Mar, Active Levothyroxine Sodium 100 MCG Orally Once a day 1 tablet 24h Active Symbicort 160-4.5 MCG/ACT Inhalation Twice a day 2 puffs 12h Active Singulair 10 mg take 1 tablet by Oral route 1 time per day Apr, Active Magnesium Oxide 250 MG Orally Once a day 2 tablets 24h Active Concerta 54 MG Orally Once a day 1 tablet in the morning 24h Jul, Active RESULTS No Results PROCEDURES Procedure Date Ordered Result Body Site MEASURE BLOOD OXYGEN LEVEL Aug 23, 2016 SOLUMEDROL (UP TO 125 MG) Aug 23, 2016 INJ ADRENLIN EPINEPH UP 1 ML AMPULE Aug 23, 2016 THER/PROPH/DIAG INJ, SC/IM Aug 23, 2016 No Charge Aug 23, 2016 IMMUNIZATIONS Vaccine Route Administration Date Status EPI (1:1000) 1 MG/ML (UP TO 1 ML) IM Intramuscular Aug 23, 2016 Administered EPI (1:1000) 1 MG/ML (UP TO 1 ML) IM Intramuscular Aug 23, 2016 Administered EPI (1:1000) 1 MG/ML (UP TO 1 ML) IM Intramuscular Aug 23, 2016 Administered SOLUMEDROL (UP TO 125 MG) IM Intramuscular Aug 23, 2016 Administered MEDICAL (GENERAL) HISTORY Type Description Date Medical [...] above surgeries Hospitalization History Anaphylactic [facility] 08/23/16
--- OUTSIDE RECORDS SUMMARY | 2018-07-18 07:44 | XMS REPORT ---
Author Author SAGAR NAVA Organization [facility] Address [address] [place] [address] Care Team Providers Care Package Clerk Name Role Phone BRANDYTEZSAGAR Unavailable PROBLEMS Type Condition ICD9-CM Code [id number] Code Onset Dates Condition Status SNOMED Code Problem Uncomplicated severe persistent asthma J45.50 Active 114111020 Problem PCOS (polycystic ovarian syndrome) E28.2 Active 35301821 Problem Migraine with aura and without status migrainosus, not intractable G43.109 Active 3313559 Assessment Allergic rhinitis due to pollen J30.1 Mar, Active 98486440 Problem Vitamin D deficiency E55.9 Active 33275552 Problem Major depressive disorder, recurrent episode, mild F33.0 Active 248222273 Problem Asthma exacerbation J45.901 Active 207381257 Problem Encounter for dental examination Z01.20 Active 595053724 Problem Acquired hypothyroidism E03.9 Active 497501944 Problem Gastroesophageal reflux disease without esophagitis K21.9 Active 839471633 Problem Allergic rhinitis due to pollen J30.1 Active 88615622 Problem ADD (attention deficit disorder) F90.0 Active 379790934 ALLERGIES Unknown Allergies SOCIAL HISTORY No smoking Hx information available PLAN OF CARE Activity Details Future/Pending Procedure IMMUNOTHERAPY, 2 OR MORE INJECTIONS ,Reason: VITAL SIGNS MEDICATIONS Unknown Medications RESULTS No Results PROCEDURES Procedure Date Ordered Related Diagnosis Body Site IMMUNOTHERAPY INJECTIONS Mar 31, 2016 IMMUNIZATIONS No Known Immunizations
--- OUTSIDE RECORDS SUMMARY | 2018-07-18 07:45 | XMS REPORT ---
Author Author SAGAR NAVA Organization [facility] Address [address] [place] [address] Care Team Providers Care Obstetrician And Gynaecologist Name Role Phone SAGAR NAVA Unavailable PROBLEMS Type Condition ICD9-CM Code SIU64-EK Code Onset Dates Condition Status SNOMED Code Problem ADD (attention deficit disorder) F90.0 Active 023691024 Problem Major depressive disorder, recurrent episode, mild F33.0 Active 445590125 Problem Allergic rhinitis due to pollen J30.1 Active 92224400 Problem Current chronic use of inhaled steroid Z79.51 Active 879086901 Problem Asthma exacerbation J45.901 Active 579716622 Problem Pure hypercholesterolemia E78.00 Active 290947328 Problem PCOS (polycystic ovarian syndrome) E28.2 Active 26623515 Problem Multiple food allergies Z91.018 Active 941686555 Problem Dental examination Z01.20 Active 486594771 Problem Uncomplicated severe persistent asthma J45.50 Active 185075654 Problem Gastroesophageal reflux disease without esophagitis K21.9 Active 600712324 Problem Migraine with aura and without status migrainosus, not intractable G43.109 Active 5092134 Problem Vitamin D deficiency E55.9 Active 24445385 Problem Acquired hypothyroidism E03.9 Active 164243471 ALLERGIES Unknown Allergies SOCIAL HISTORY No smoking Hx information available PLAN OF CARE VITAL SIGNS MEDICATIONS Unknown Medications RESULTS No Results PROCEDURES No Known procedures IMMUNIZATIONS No Known Immunizations
--- OUTSIDE RECORDS SUMMARY | 2018-07-18 07:45 | XMS REPORT ---
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 Name Role Phone BRANDYTEZ HOYTHANY Unavailable PROBLEMS Type Condition ICD9-CM Code CLR24-IK Code Onset Dates Condition Status SNOMED Code Problem Migraine with aura and without status migrainosus, not intractable G43.109 Active 6989619 Problem PCOS (polycystic ovarian syndrome) E28.2 Active 90754643 Problem Uncomplicated severe persistent asthma J45.50 Active 974852565 Problem Severe persistent asthma with exacerbation J45.51 Active 205041445 Problem Other elevated white blood cell (WBC) count D72.828 Active 893358129 Problem Multiple food allergies Z91.018 Active 479095205 Problem Pure hypercholesterolemia E78.00 Active 881047397 Problem Current chronic use of inhaled steroid Z79.51 Active 138152025 Problem Asthma exacerbation J45.901 Active 802222862 Problem ADD (attention deficit disorder) F90.0 Active 190813696 Problem Allergic rhinitis due to pollen J30.1 Active 84588202 Problem Vitamin D deficiency E55.9 Active 94027623 Problem Major depressive disorder, recurrent episode, mild F33.0 Active 663263176 Problem Acquired hypothyroidism E03.9 Active 115443713 Problem Gastroesophageal reflux disease without esophagitis K21.9 Active 750135792 ALLERGIES No Information ENCOUNTERS Encounter Location Date Diagnosis [facility] [id number] [address] Dec, ADD (attention deficit disorder) F90.0 and Uncomplicated severe persistent asthma J45.50 [facility] [address] [address] Dec, Allergic rhinitis due to pollen J30.1 [facility] [address] [place] [address] 32967- 5648 Dec, [place] [address] [place] [address] 80705- 1955 October, Allergic rhinitis due to pollen J30.1 [place] [id number] [place] [address] 81637- 1103 October, Allergic rhinitis due to pollen J30.1 [place] [id number] [place] [address] 78854- 0302 Oct, [place] [id number] [place] [address] 70749- 0783 Oct, Allergic rhinitis due to pollen J30.1 [place] [id number] [place] [address] 74434- 2887 Oct, [place] [id number] [place] [address] 27501- 3666 Oct, Allergic rhinitis due to pollen J30.1 [place] [id number] [place] [address] 55918- 2259 Oct, Severe persistent asthma with exacerbation J45.51 and Pneumonia due to Haemophilus influenzae, unspecified laterality, unspecified part of lung J14 [place] [id number] [place] [address] 02987- 0977 Oct, ADD (attention deficit disorder) F90.0 [place] [id number] [place] [address] 89026- 8864 Aug, Haemophilus influenzae infection A49.2 [place] [id number] [place] [address] 14745- 8478 Aug, Cough productive of purulent sputum R05 [place] [id number] [place] [address] 17935- 7824 Aug, [place] [id number] [place] [address] 09134- 1676 Aug, Pulmonary congestion R09.89 [place] [id number] [place] [address]59 Aug, Severe persistent asthma with exacerbation J45.51 ; Hiatal hernia K44.9 and Gastroesophageal reflux disease without esophagitis K21.9 [place] [id number]- 5387 Aug, Other elevated white blood cell (WBC) count D72.828 [place] 156931- 2515 Aug, Uncomplicated severe persistent asthma J45.[address] 254618- 1776 Aug, Pure hypercholesterolemia E78.00 ; Uncomplicated severe persistent asthma J45.50 and Acquired hypothyroidism E03.[address] 04889- 9508 Aug, Acquired hypothyroidism E03.9 ; Pure hypercholesterolemia E78.00 and Uncomplicated severe persistent asthma J45.[address] 00031- 2374 Aug, Allergic rhinitis due to pollen J30.[address] 35353- 0244 Aug, Allergic rhinitis due to pollen J30.[address] 10988- 0548 Aug, [place] [address] [id number] Jul, Pharyngitis, unspecified etiology J02.9 and Lymphadenopathy R59.[address] 24994- 2963 Jul, ADD (attention deficit disorder) F90.[address] 35393- 1045 Jul, Allergic rhinitis due to pollen J30.[address] [place] [address]- 1344 Jul, Dental examination Z01.20 [place] [address] 43080- 7674 Jun, Cough productive of purulent sputum R05 [place] [id number] [place] [address] 83262- 2380 Jun, Allergic rhinitis due to pollen J30.1 [place] [id number] [place] [address] 76558- 1822 Jun, [place] [id number] [place] [address] 86137- 6556 Jun, Allergic rhinitis due to pollen J30.1 [place] [id number] [place] [address] 19356- 5988 Jun, Allergic rhinitis due to pollen J30.1 [place] [id number] [place] [address] 42659- 8627 May, Allergic rhinitis due to pollen J30.1 [place] [id number] [place] [address] 44696- 2072 May, Pneumonia due to Haemophilus influenzae, unspecified laterality, unspecified part of lung J14 [place] [id number] [place] [address] 88788- 0537 May, Allergic rhinitis due to pollen J30.1 [place] [id number] [place] [address] 15764- 6877 May, Other adverse food reactions, not elsewhere classified, initial encounter T78.1XXA and Pneumonia due to Haemophilus influenzae, unspecified laterality, unspecified part of lung J14 [place] [id number] [place] [address] 04581- 5138 May, Pneumonia due to Haemophilus influenzae, unspecified laterality, unspecified part of lung J14 [place] [id number] [place] [address] 82748- 4650 May, Multiple food allergies Z91.018 ; Uncomplicated severe persistent asthma J45.50 ; Cough productive of purulent sputum R05 and Uses central nervous system stimulants F15.90 [place] [address] 94344- 8290 Apr, Allergic rhinitis due to pollen J30.1 [place] [address] 26916- 5941 Apr, Allergic rhinitis due to pollen J30.1 [place] [address] 21870- 3494 Apr, Allergic rhinitis due to pollen J30.1 [place] [address] 38175- 9412 Apr, ADD (attention deficit disorder) F90.0 [place] [address] 59430- 2545 28 Mar, 2017 Allergic rhinitis due to pollen J30.1 [place] [address] 75055- 4577 21 Mar, 2017 Encounter for immunization Z23 [place] [address] 83549- 8886 19 Mar, 2017 [place] [address] 00174- 2126 14 Mar, 2017 Allergic rhinitis due to pollen J30.1 [place] [address] 29164- 1294 07 Mar, 2017 Allergic rhinitis due to pollen J30.1 [place] [address] 88331- 7040 Jan, Allergic rhinitis due to pollen J30.1 [place] [address] 12882- 8412 Jan, Allergic rhinitis due to pollen J30.1 [place] [address] 63120- 6844 Dec, Uncomplicated severe persistent asthma J45.50 [place] [id number] [place] [address] 78190- 5499 Dec, Allergic rhinitis due to pollen J30.1 [place] [id number] [place] [address] 21623- 4029 Dec, Allergic rhinitis due to pollen J30.1 [place] [address] 88625- 1647 Dec, Allergic rhinitis due to pollen J30.1 [place] [id number] [place] [address] 77708- 4116 Dec, ADD (attention deficit disorder) F90.0 [place] [address] 19268- 6157 Dec, Allergic rhinitis due to pollen J30.1 [id number] [place] [address] 04569- 6322 Dec, Screening for tuberculosis Z11.1 and Visit for TB skin test Z11.1 [place] [address] [place] [address] 11382- 0683 Dec, Uncomplicated severe persistent asthma J45.50 ; Palpitations R00.2 ; Pericardial effusion (noninflammatory) I31.3 and Chest discomfort R07.89 [place] [id number] [place] [address] 11387- 7695 Dec, Allergic rhinitis due to pollen J30.1 [place] [id number] [place] [address] 14626- 0763 Dec, Chronic cough R05 [place] [id number] [place] [address] 99661- 8807 Dec, [place] [id number] [place] [address] 87188- 9250 Dec, Allergic rhinitis due to pollen J30.1 [place] [address] [place] [address]- 5378 Dec, Allergic rhinitis due to pollen J30.1 [facility] [id number] [place] [address] 80883- 4931 Dec, Chronic cough R05 [place] [id number] [place] [address] 19360- 7788 October, Allergic rhinitis due to pollen J30.1 [place] [id number] [place] [address] 28771- 9508 October, Allergic rhinitis due to pollen J30.1 [place] [id number] [place] [address] 91813- 3522 October, [place] [id number] [place] [address] 31006- 1908 October, Asthma exacerbation J45.901 [place] [address] 15676- 3282 October, Asthma exacerbation J45.901 and Current chronic use of inhaled steroid Z79.51 [place] [id number] [place] [address] 16200- 8125 October, Uncomplicated severe persistent asthma J45.50 [place] [id number] [place] [address] 65249- 5969 October, Allergic rhinitis due to pollen J30.1 [place] [id number] [place] [address] 44025- 2191 Oct, [place] [id number] [place] [address] 50807- 5522 Oct, Asthma exacerbation J45.901 and Sputum production R05 [place] [id number] [place] [address] 31687- 0545 Oct, Asthma exacerbation J45.901 [place] [id number] [place] [address] 44876- 9887 Oct, ADD (attention deficit disorder) F90.0 [place] [id number] [place] [address] 92376- 8129 Oct, ADD (attention deficit disorder) F90.0 [place] [address] 122779- 5051 Aug, Allergic rhinitis due to pollen J30.1 [place] [address] 94200- 9404 Aug, Atypical pneumonia J18.9 [place] [address] 87044- 3175 Aug, Allergic rhinitis due to pollen J30.1 [place] [address] 10298- 8251 Aug, Acquired hypothyroidism E03.9 [place] [address] 58101- 4767 Aug, Multiple food allergies Z91.018 ; Elevated blood pressure reading R03.0 and Anaphylaxis, subsequent encounter T78.2XXD [place] [address] [id number] Aug, [place] [address] 29465- 2905 Aug, Anaphylaxis, initial encounter T78.2XXA [place] [address] 36057- 3055 Aug, Allergic rhinitis due to pollen J30.1 [place] [address] 66641- 9506 Aug, Dental examination Z01.20 [place] [address] 41459- 8086 Aug, Allergic rhinitis due to pollen J30.1 [place] [address] 33855- 7345 Aug, Acquired hypothyroidism E03.9 and Pure hypercholesterolemia E78.00 [facility] [id number] [place] [address] 79783 2546 03 Aug, 2016 ADD (attention deficit disorder) F90.0 ; Acquired hypothyroidism E03.9 and Pure hypercholesterolemia E78.00 [facility] [id number] [place] [address] 54268 2546 02 Aug, 2016 Asthma exacerbation J45.901 [facility] [address] 66938- 8796 Jul, Allergic rhinitis due to pollen J30.1 [place] [id number] [place] [address] 88596- 7476 Jul, Allergic rhinitis due to pollen J30.1 [place] [id number] [place] [address] 40346- 8253 Jul, [place] [address] 64351- 0907 Jul, Allergic rhinitis due to pollen J30.1 [facility] [id number] [place] [address] 94378- 9014 Jul, Other correction (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 and ADD ( attention deficit disorder) F90.0 [place] [id number] [place] [address] 95052- 4416 Jul, Other correction (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 and ADD ( attention deficit disorder) F90.0 [facility] [id number] [place] [address] 16769 2547 Jul, [facility] [id number] [place] [address] 44290- 6106 Jun, Allergic rhinitis due to pollen J30.1 [facility] [id number] [place] [address] 59666- 6877 Jun, Allergic rhinitis due to pollen J30.1 [facility] [id number] [place] [address] 52218- 1706 Jun, [facility] [id number] [place] [address] 15878- 6447 May, Allergic rhinitis due to pollen J30.1 [facility] [id number] [place] [address] 43758- 4596 May, Allergic rhinitis due to pollen J30.1 [facility] [id number] [place] [address] 00000- 6654 Apr, Allergic rhinitis due to pollen J30.1 [facility] [id number] [place] [address] 36857- 3660 Apr, Allergic rhinitis due to pollen J30.1 [place] [id number] [place] [address] 17664- 4379 Apr, Encounter for immunization Z23 [place] [address] 43302- 4977 Apr, [place] [id number] [place] [address] 86380- 0520 Mar, Allergic rhinitis due to pollen J30.1 [place] [id number] [place] [address] 19007- 2514 Mar, Multiple allergies Z88.9 [place] [id number] [place] [address] 58952- 1752 Mar, Candidal vaginitis B37.3 [place] [id number] [place] [address] 60231- 1339 08 Mar, 2016 Allergic rhinitis due to pollen J30.1 [place] [id number] [place] [address] 48517- 5902 Jan, Asthma exacerbation J45.901 ; Fatigue, unspecified type R53.83 and Community acquired pneumonia J18.9 [facility] [id number] [place] [address] [id number] Jan, Encounter for dental examination Z01.20 [facility] [address], [place] [address]- 2037 Jan, Allergic rhinitis due to pollen J30.1 [facility] [address] [address]- 1925 Dec, Allergic rhinitis due to pollen J30.1 [facility] [address] [address]- 8700 Dec, [facility] [id number] [address]- 9718 Dec, Allergic rhinitis due to pollen J30.1 [facility] [address], [place] [address]- 7298 Dec, [facility] [id number] [address]- 0419 Dec, [facility] [address] [place] [address] 74559- 9822 Dec, [facility] [address], [place] [address]- 9057 Dec, Allergic rhinitis due to pollen J30.1 [facility] [address], [place] [address]- 8981 Dec, [facility] [address] [address]- 8838 Dec, [facility] [address], [place] [address]- 5326 Dec, Allergic rhinitis due to pollen J30.1 [facility] [address], [place] [address]- 6284 October, Allergic rhinitis due to pollen J30.1 [facility] [address] [address]- 0500 October, Allergic rhinitis due to pollen J30.1 [facility] [address] [place] [address] 48890- 5827 October, [place] [id number] [place] [address] 80678- 9562 October, [place] [id number] [place] [address] 14620- 2099 October, ADD (attention deficit disorder) F90.0 ; Major depressive disorder, recurrent episode, mild F33.0 and Uncomplicated severe persistent asthma J45.50 [place] [address] 62261- 8623 Oct, Allergic rhinitis due to pollen J30.1 [place] [address] 62367- 7308 Oct, ADD (attention deficit disorder) F90.0 [place] [id number] [place] [address] 89032- 7687 Oct, Allergic rhinitis due to pollen 477.0 [place] [id number] [place] [address] 98361- 8631 Aug, Allergic rhinitis due to pollen 477.0 [place] [id number] [place] [address] 31773- 1911 Aug, 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 [place] [id number] [place] [address] 24988- 7847 Aug, [place] [id number] [place] [address] 25600- 2806 Aug, Allergic rhinitis due to pollen 477.0 [place] [id number] [place] [address] 59485- 1021 Aug, Allergic rhinitis due to pollen 477.0 [place] [id number] [place] [address] 44558- 9037 Aug, Allergic rhinitis due to pollen 477.0 [place] [id number] [place] [address] 76246- 5233 Aug, Exposure to influenza Z20.828 [facility] [address] [place] [address] [id number] Aug, Encounter for dental examination and cleaning without abnormal findings Z01.20 [facility] [id number] [place] [address] 25652- 7787 18 Aug, 2015 Allergic rhinitis due to pollen J30.1 [place] [address] 94055- 6077 Aug, [place] [address] 83950- 7404 Aug, 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 [place] [address] 30518- 1305 Jul, [place] [address] 31569- 7603 Jul, Allergic rhinitis due to pollen 477.0 [place] [id number] [place] [address] 86217- 4724 Jul, [place] [address] 62212- 0462 Jul, Allergic rhinitis due to pollen 477.0 [place] [id number] [place] [address] 04176- 5087 Jun, ADD (attention deficit disorder) F90.0 ; Acquired hypothyroidism E03.9 ; PCOS (polycystic ovarian syndrome) E28.2 ; Polyarthralgia M25.50 and On stimulant medication Z79.899 [place] [id number] [place] [address] 72421- 1933 Apr, Encounter for immunization Z23 [facility] [id number] [place] [address] 27180- 6262 16 Mar, 2015 Allergic rhinitis due to pollen 477.0 [place] [address] 66897- 7360 Mar, Influenza vaccine administered V04.81 [facility] [address] [place] [address] 14856- 4197 Mar, [facility] [id number] [place] [address] 469952- 3918 Jan, Allergic rhinitis due to pollen 477.0 [facility] [id number] [place] [address] 587336- 7778 Jan, Allergic rhinitis due to pollen 477.0 [facility] [address] [place] [address] 987827- 0576 Jan, Allergic rhinitis due to pollen 477.0 [facility] [id number] [place] [address] [id number] Jan, Dental examination V72.2 [facility] [id number] [place] [address] 78506- 4004 Dec, Allergic rhinitis due to pollen 477.0 [facility] [address] [place] [address] 82555- 9296 October, [facility] [id number] [place] [address] 20555- 0177 Oct, [facility] [id number] [place] [address] 28058- 2726 Oct, [facility] [address] [place] [address] 40565- 0583 Aug, [facility] [address] [place] [address] 09174- 6230 Aug, [facility] [id number] [place] [address] 000937- 4594 Aug, [facility] [id number] [place] [address] 712150- 3376 Aug, [facility] [address] [place] [address] 253087- 8560 Aug, [facility] [place] [facility] [address] [id number] [place] [address]- 0731 Aug, [facility] [place] [facility] [address] [id number] [place] [address]- 2202 Aug, [facility] [place] [facility] [address] [id number] [place] [address]- 6656 Aug, [facility] [place] [facility] [address] [id number] [place] [address]- 8223 Jul, [facility] [place] [facility] [address] [id number] [place] [address]- 6935 Jul, [facility] [place] [facility] [address] [id number] [place] [address]- 2712 Jul, [facility] [place] [facility] [address] [id number] [place] [address]- 0009 Jul, [facility] [place] [facility] [address] [id number] [place] [address] Jul, [facility] [place] [facility] [address] [id number] [place] [address] Jul, [facility] [place] [facility] [address] [id number] [place] [address] Jul, [facility] [place] [facility] [address] [id number], [place] [address] Jul, [facility] [place] [facility] [address] [id number], [place] [address] Jul, [facility] [place] [facility] [address] [id number] [place] [address] Jul, [facility] [place] [facility] [address] [id number] [place] [address] Jul, [facility] [place] [facility] [address] [id number] [place] [address] Jun, [facility] [place] [facility] [address] [id number] [place] [address] Jun, [facility] [place] [facility] [address] [id number] [place] [address] [address] Jun, [facility] [place] [facility] [address] [id number] [place] [address] Jun, [facility] [place] [facility] [address] [id number] [place] [address] Jun, [facility] [place] [facility] [address] [id number] [place] [address] Jun, [facility] [place] [facility] [address] [id number] [place] [address] May, [facility] [place] [facility] [address] [id number] [place] [address] May, [facility] [place] [facility] [address] [id number] [place] [address] May, [facility] [place] [facility] [address] [id number] [place] [address] May, [facility] [place] [facility] [address] [id number] [place] [address] May, [facility] [place] [facility] [address] [facility] [facility] [id number] [place] [address] May, [facility] [place] [facility] [address] [id number] [place] [address] Apr, [facility] [place] [facility] [address] [id number] [place] [address] Apr, [facility] [place] [facility] [address] [id number] [place] [address] Mar, [facility] [place] [facility] [address] [id number] [place] [address] Mar, [facility] [place] [facility] [address] [id number] [place] [address] [address] Mar, [facility] [place] [facility] [address] [id number] [place] [address] 8024 Mar, [facility] [place] [facility] [address] [id number] [place] [address] 8777 Mar, [facility] [place] [facility] [address] [id number] [place] [address] Mar, [facility] [place] [facility] [address] [id number] [place] [address] 5691 Jan, [facility] [place] [facility] [address] [id number] [place] [address] 119[address] Jan, [facility] [place] [facility] [address] [id number] [place] [address] 15[address] Jan, [facility] [place] [facility] [address] [id number] [place] [address] 2509 Jan, [facility] [place] [facility] [address] [id number] [place] [address] 0034 Jan, [facility] [place] [facility] [address] [id number] [place] [address]307 Jan, [facility] [place] [facility] [address] [id number] [place] [address] 87[address] Dec, [facility] [place] [facility] [address] [id number] [place] [address] 6722 Dec, [facility] [place] [facility] [address] [id number] [place] [address] 5175 Dec, [facility] [place] [facility] [address] [id number] [place] [address] 3071 Dec, [facility] [place] [facility] [address] [id number] [place] [address] 4933 Dec, [facility] [place] [facility] [address] [id number] [place] [address] 0921 Dec, [facility] [place] [facility] [address] [id number] [place] [address] 6962 Dec, [facility] [place] [facility] [address] [id number] [place] [address] 4771 Dec, [facility] [place] [facility] [address] [id number] [place] [address] 3162 Dec, [facility] [place] [facility] [address] [id number] [place] [address] 3284 Dec, [facility] [place] [facility] [address] [id number] [place] [address] 9253 Dec, [facility] [place] [facility] [address] [id number] [place] [address] 2143 Dec, [facility] [place] [facility] [address] [id number] [place] [address] 3296 Dec, [facility] [place] [facility] [address] [id number] [place] [address] 0450 Dec, [facility] [place] [facility] [address] [id number] [place] [address] 9512 Dec, [facility] [place] [facility] [address] [id number] [place] [address] 7767 Dec, [facility] [place] [facility] [address] [id number] [place] [address] 4073 October, [facility] [place] [facility] [address] [id number] [place] [address] 8645 October, [facility] [place] [facility] [address] [id number] [place] [address] 8602 October, [facility] [place] [facility] [address] [id number] [place] [address] 9227 October, [facility] [place] [facility] [address] [id number] [place] [address] 2855 October, [facility] [place] [facility] [address] [id number] [place] [address] 57[address] October, [facility] [place] [facility] [address] [id number] [place] [address] 9218 Oct, [facility] [address] [id number] [place] [address] 2194 Oct, [facility] [place] [facility] [address] [id number] [place] [address] Oct, [facility] [address] [id number] [place] [address] 2235 Oct, [facility] [place] [facility] [address] [id number] [place] [address] 6128 Oct, [facility] [address] [id number] [place] [address] 7480 Oct, [facility] [place] [facility] [address] [id number] [place] [address] 5742 Aug, [facility] [place] [facility] [address] [id number] [place] [address] 5599 Aug, [facility] [address] [id number] [place] [address] 6676 Aug, [facility] [place] [facility] [address] [id number] [place] [address] 9425 Aug, [facility] [address] [id number] [place] [address] 5238 Jul, [facility] [place] [facility] [address] [id number] [place] [address] 2844 Jul, [facility] [place] [facility] [address] [id number] [place] [address] 7091 Jul, [facility] [place] [facility] [address] [id number] [place] [address] Jul, [facility] [place] [facility] [address] [id number] [place] [address] 8989 Jun, [facility] [place] [facility] [address] [id number] [place] [address] 3839 Jun, [facility] [address] [id number] [place] [address] 4769 Jun, [facility] [place] [facility] [address] [id number] [place] [address] 2006 Jun, [facility] [place] [facility] [address] [id number] [place] [address] 9357 Jun, [facility] [place] [facility] [address] [id number] [place] [address]- 6094 Jun, [facility] [place] [facility] [address] [id number] [place] [address] 3816 Jun, [facility] [place] [facility] [address] [id number] [place] [address] 8231 Jun, [facility] [place] [facility] [address] [id number] [place] [address] 8939 Jun, [facility] [place] [facility] [address] [id number] [place] [address]- 7482 Jun, [facility] [place] [facility] [address] [id number] [place] [address] 1457 Jun, [facility] [place] [facility] [address] [id number], [place] [address]99 May, [facility] [place] [facility] [address] [id number], [place] [address] 8[address] May, [facility] [place] [facility] [address] [id number], [place] [address] 5047 May, [facility] [place] [facility] [address] [id number] [place] [address] 2508 May, [facility] [place] [facility] [address] [id number], [place] [address] May, [facility] [place] [facility] [address] [facility] [id number], [place] [address]797 06 May, 2013 [facility] [place] [facility] [address] [id number] [place] [address]- 7679 06 May, 2013 [facility] [place] [facility] [address] [id number] [place] [address]- 5908 30 Apr, 2013 [facility] [place] [facility] [address] [id number] [place] [address]- 2259 30 Apr, 2013 [facility] [place] [facility] [address] [id number] [place] [address]- 9495 18 Apr, 2013 [facility] [place] [facility] [address] [id number] [place] [address]- 5376 02 Apr, 2013 [facility] [place] [facility] [address] [id number] [place] [address]- 7269 27 Mar, 2013 [facility] [place] [facility] [address] [id number] [place] [address]- 0232 26 Mar, 2012 [facility] [place] [facility] [address] [id number] [place] [address]- 4370 26 Mar, 2012 [facility] [place] [facility] [address] [id number] [place] [address]- 2542 23 Mar, 2012 [facility] [place] [facility] [address] [id number] [place] [address]- 4552 04 Mar, 2013 [facility] [place] [facility] [address] [id number] [place] [address]- 9823 03 Mar, 2013 [facility] [place] [facility] [address] [id number] [place] [address]- 5022 30 Jan, 2013 [facility] [place] [facility] [address] [id number] [place] [address]- 2545 28 Jan, 2013 [facility] [place] [facility] [address] [id number] [place] [address]- 5367 Jan, [facility] [place] [facility] [address] [id number] [place] [address]- 3701 14 Jan, 2013 [facility] [place] [facility] [address] [id number] [place] [address]- 7648 06 Jan, 2013 [facility] [place] [facility] [address] [id number] [place] [address]- 9910 Dec, [facility] [address] [id number] [place] [address]- 0446 Dec, [facility] [place] [facility] [address] [id number] [place] [address]- 4412 Dec, [facility] [address] [id number] [place] [address]- 5333 Dec, [facility] [address] [id number] [place] [address]- 5306 Dec, [facility] [place] [facility] [address] [id number] [place] [address]- 4775 Dec, [facility] [address] [id number] [place] [address]- 6258 Dec, [facility] [address] [id number] [place] [address]- 0746 Dec, [facility] [address] [id number] [place] [address]- 6522 October, [facility] [address] [id number] [place] [address]- 8943 October, [facility] [place] [facility] [address] [id number] [place] [address]- 7610 October, [facility] [place] [facility] [address] [id number] [place] [address]- 8207 24 Oct, 2012 [facility] [place] [facility] [address] [id number] [place] [address]- 3272 18 Oct, 2012 [facility] [place] [facility] [address] [id number] [place] [address]- 7600 17 Oct, 2012 [facility] [place] [facility] [address] [id number] [place] [address]- 6963 02 Oct, 2012 [facility] [place] [facility] [address] [id number][place] [address]- 1696 Aug, [facility] [place] [facility] [address] [id number] [place] [address]- 8662 Aug, [facility] [place] [facility] [address] [id number] [place] [address]- 3118 Aug, [facility] [place] [facility] [address] [id number] [place] [address]- 7648 Jul, [facility] [place] [facility] [address] [id number] [place] [address]- 0742 May, [facility] [place] [facility] [address] [id number] [place] [address]- 7202 May, [facility] [place] [facility] [address] [id number] [place] [address]- 7041 Apr, [facility] [place] [facility] [address] [id number] [place] [address]- 8958 Apr, [facility] [place] [facility] [address] [id number], [place] [address]- 6637 Apr, [facility] [place] [facility] [address] [id number] [place] [address]- 7465 Apr, [facility] [place] [facility] [address] [id number] [place] [address]- 4213 Apr, [facility] [place] [facility] [address] [id number], [place] [address]- 3337 Apr, [facility] [place] [facility] [address] [id number], [place] [address]- 2837 Apr, [facility] [place] [facility] [address] [id number] [place] [address]- 7347 Apr, [facility] [place] [facility] [address] [facility] [id number] [place] [address]- 3756 Apr, [facility] [place] [facility] [address] [id number] [place] [address]- 2818 Apr, [facility] [place] [facility] [address] [id number] [place] [address]- 5964 14 Apr, 2012 [facility] [address] [id number] [place] [address]- 8562 Apr, [facility] [address] [id number] [place] [address] 2546 Mar, [facility] [address] [id number] [place] [address]- 0216 Jan, [facility] [address] [id number] [place] [address]- 2870 Dec, [facility] [address] [id number] [place] [address]- 0993 October, [facility] [address] [id number] [place] [address]- 2416 Oct, [facility] [address] [id number] [place] [address]- 4696 Oct, [facility] [address] [id number] [place] [address]- 1528 Oct, [facility] [address] [id number] [place] [address]- 2016 Aug, [facility] [address] [facility] [id number] [place] [address]- 6076 Aug, [facility] [place] [facility] [address] [id number] [place] [address]- 8586 Aug, [facility] [address] [id number] [place] [address]- 2546 Aug, [facility] [place] [facility] [address] [id number] [place] [address]- 3856 Aug, [facility] [place] [facility] [address] [facility] [id number] [place] [address]- 2546 Aug, [facility] [place] [facility] [address] [facility] [id number] [place] [address]- 0056 Jun, [facility] [address] [facility] [id number][place] [address]- 2854 Apr, [facility] [address] [facility] [id number], [place] [address]- 3510 Jun, [facility] [address] [facility] [id number], [place] [address]- 6268 Jun, [facility] [address] [facility] [id number], [place] [address]- 6765 May, [facility] [address] [facility] [id number], [place] [address]- 0463 May, [facility] [id number], [place] [address]- 7537 Apr, [facility] [address] [id number], [place] [address] 0117 Apr, IMMUNIZATIONS No Known Immunizations SOCIAL HISTORY Never Assessed REASON FOR VISIT Allergy injection(s) STeposte [facility] PLAN OF CARE VITAL SIGNS MEDICATIONS No Known Medications RESULTS No Results PROCEDURES Procedure Date Ordered Result Body Site IMMUNOTHERAPY, 2 OR MORE INJECTIONS 2017-08-10 N/A IMMUNOTHERAPY INJECTIONS Aug 10, 2017 INSTRUCTIONS MEDICATIONS ADMINISTERED No Known Medications [...] History see above surgeries Hospitalization History Anaphylactic shock-[facility] 08/23/16
--- OUTSIDE RECORDS SUMMARY | 2018-07-18 07:45 | XMS REPORT ---
Author Author BRANDY SAGAR Organization [facility] Address [address] [place] [address] Care Team Providers Care Coat Room Attendant Name Role Phone SAGAR NAVA Unavailable PROBLEMS Type Condition ICD9-CM Code [id number] Code Onset Dates Condition Status SNOMED Code Problem ADD (attention deficit disorder) F90.0 Active 034289347 Problem Major depressive disorder, recurrent episode, mild F33.0 Active 604706381 Problem Allergic rhinitis due to pollen J30.1 Active 48061326 Problem Current chronic use of inhaled steroid Z79.51 Active 698590198 Problem Asthma exacerbation J45.901 Active 881963931 Problem Pure hypercholesterolemia E78.00 Active 235300106 Problem PCOS (polycystic ovarian syndrome) E28.2 Active 00604691 Problem Multiple food allergies Z91.018 Active 505289133 Problem Dental examination Z01.20 Active 849402870 Problem Uncomplicated severe persistent asthma J45.50 Active 902489458 Problem Gastroesophageal reflux disease without esophagitis K21.9 Active 368650124 Problem Migraine with aura and without status migrainosus, not intractable G43.109 Active 2764744 Problem Vitamin D deficiency E55.9 Active 70305201 Problem Acquired hypothyroidism E03.9 Active 065056136 ALLERGIES No Information SOCIAL HISTORY Never Assessed PLAN OF CARE VITAL SIGNS MEDICATIONS Unknown Medications RESULTS No Results PROCEDURES Procedure Date Ordered Result Body Site IMMUNOTHERAPY, 2 OR MORE INJECTIONS 2016-08-18 N/A IMMUNOTHERAPY INJECTIONS Aug 18, 2016 IMMUNIZATIONS No Known Immunizations MEDICAL (GENERAL) [...] History see above surgeries Hospitalization History Anaphylactic shock-[facility] 08/23/16
--- OUTSIDE RECORDS SUMMARY | 2018-07-18 07:45 | XMS REPORT ---
Author BALJEET Nolasco [employer] Address Unknown Phone Unavailable Care Team Providers Care Meter Attendant Name Role Phone BALJEET WILKINS CP Unavailable Allergies No Known Allergies Problems Problem Type Condition Code Onset Dates Condition Status Problem Major depressive disorder, recurrent episode, mild F33.0 Active Assessment Allergic rhinitis due to pollen 477.0 Active Problem ADD (attention deficit disorder) F90.0 [...] Coding System Code Date IMMUNOTHERAPY INJECTIONS CPT-4 25113 Jul 23, 2015 Results Name Result Date Reference Range Unit Abnormality Flag IMMUNOTHERAPY, 2 OR MORE INJECTIONS Summary Purpose eClinicalWorks Submission
--- OUTSIDE RECORDS SUMMARY | 2018-07-18 07:45 | XMS REPORT ---
Author BALJEET Nolasco [facility] eClinical[employer] Address Unknown Phone Unavailable Care Team Providers Care Acid Tank Liner Name Role Phone BALJEET WILKINS CP Unavailable [...] Coding System Code Date IMMUNOTHERAPY INJECTIONS CPT-4 46494 Feb 26, 2015 Results Name Result Date Reference Range Unit Abnormality Flag IMMUNOTHERAPY, 2 OR MORE INJECTIONS Summary Purpose eClinicalWorks Submission
--- OUTSIDE RECORDS SUMMARY | 2018-07-18 07:45 | XMS REPORT ---
Author Author SAGAR NAVA [employer] Address Unknown Phone Unavailable Care Team Providers Care Mechanical Equipment Test Engineer Name Role Phone SAGAR NAVA CP Unavailable Allergies No Known Allergies Problems Problem Type Condition Code Onset Dates Condition Status Problem Major depressive disorder, recurrent episode, mild F33.0 Active Problem Migraine with aura and without status migrainosus, not intractable G43.109 Active Problem Uncomplicated severe persistent asthma J45.50 Active Assessment Encounter for immunization Z23 Active Problem Vitamin D deficiency E55.9 Active [...] Medications Procedures Procedure Coding System Code Date SINGLE IMMUNIZATION ADMIN CPT-4 08609 Apr 07, 2016 FLUARIX QUAD P-FREE 3 AND UP .50 2015 CPT-4 72803 Apr 07, 2016 Results No Known Results Immunizations Vaccine Administration Date FLUARIX QUAD P-FREE 3 AND UP .50 2015Apr 07, 2016 Summary Purpose eClinicalWorks Submission
--- OUTSIDE RECORDS SUMMARY | 2018-07-18 07:45 | XMS REPORT ---
Author Author SAGAR NAVA Organization [facility] Address [address] [place] [address] Care Team Providers Care Manager Perioperative Name Role Phone SAGAR NAVA Unavailable PROBLEMS Type Condition ICD9-CM Code QFA34-LU Code Onset Dates Condition Status SNOMED Code Problem Gastroesophageal reflux disease without esophagitis K21.9 Active 228529603 Problem ADD (attention deficit disorder) F90.0 Active 321809007 Problem Acquired hypothyroidism E03.9 Active 143061773 Problem Current chronic use of inhaled steroid Z79.51 Active 808129486 Problem Asthma exacerbation J45.901 Active 851731991 Problem Pure hypercholesterolemia E78.00 Active 943340898 Problem Allergic rhinitis due to pollen J30.1 Active 92665951 Problem Multiple food allergies Z91.018 Active 479897803 Problem Dental examination Z01.20 Active 414876665 Problem Major depressive disorder, recurrent episode, mild F33.0 Active 009981357 Problem Uncomplicated severe persistent asthma J45.50 Active 345489668 Problem Migraine with aura and without status migrainosus, not intractable G43.109 Active 5060469 Problem Vitamin D deficiency E55.9 Active 62380677 Problem PCOS (polycystic ovarian syndrome) E28.2 Active 31619260 ALLERGIES Unknown Allergies SOCIAL HISTORY No smoking Hx information available PLAN OF CARE VITAL SIGNS MEDICATIONS Unknown Medications RESULTS No Results PROCEDURES No Known procedures IMMUNIZATIONS No Known Immunizations
--- OUTSIDE RECORDS SUMMARY | 2018-07-18 07:45 | XMS REPORT ---
Author Author BRANDY SAGAR Organization [facility] Address [address] [place] [address] Care Team Providers Care Paint Line Supervisor Name Role Phone SAGAR NAVA Unavailable PROBLEMS Type Condition ICD9-CM Code [id number] Code Onset Dates Condition Status SNOMED Code Problem ADD (attention deficit disorder) F90.0 Active 503575048 Problem Major depressive disorder, recurrent episode, mild F33.0 Active 110734960 Problem Allergic rhinitis due to pollen J30.1 Active 60301255 Problem Current chronic use of inhaled steroid Z79.51 Active 480038298 Problem Asthma exacerbation J45.901 Active 013473048 Problem Pure hypercholesterolemia E78.00 Active 429694181 Problem PCOS (polycystic ovarian syndrome) E28.2 Active 76880471 Problem Multiple food allergies Z91.018 Active 637130249 Problem Dental examination Z01.20 Active 369939686 Problem Uncomplicated severe persistent asthma J45.50 Active 388738779 Problem Gastroesophageal reflux disease without esophagitis K21.9 Active 281146023 Problem Migraine with aura and without status migrainosus, not intractable G43.109 Active 6931434 Problem Vitamin D deficiency E55.9 Active 84344153 Problem Acquired hypothyroidism E03.9 Active 321590119 ALLERGIES No Information SOCIAL HISTORY Never Assessed PLAN OF CARE VITAL SIGNS MEDICATIONS No Known Medications RESULTS Name Result Date Reference Range CT Scan : Chest w/o Contrast 2016-12-15 PROCEDURES No Known procedures IMMUNIZATIONS No Known [...] History see above surgeries Hospitalization History Anaphylactic shock-[facility] 08/23/16
--- OUTSIDE RECORDS SUMMARY | 2018-07-18 07:46 | XMS REPORT ---
Author Author SAGAR NAVA [employer] Address Unknown Phone Unavailable Care Team Providers Care Track Grinder Operator Name Role Phone SAGAR NAVA Unavailable Allergies No Known Allergies Problems Problem [...] Instructions Start Date End Date Status Dosage Fexofenadine-Pseudoephed ER [facility] [id number] 180-240 MG Orally Once a day Jul 22, 2015 September 20, 2015 1 tablet Concerta [facility] [address]-73 36 MG Orally Once a day Jul 22, 2015 1 tablet in the morning Results No Known Results Summary Purpose eClinicalWorks Submission
--- OUTSIDE RECORDS SUMMARY | 2018-07-18 07:46 | XMS REPORT ---
Author Author PRETTY TABOR [facility] Address [address] [place] [address] Care Team Providers Care Cns Name Role Phone PRETTY TABOR Unavailable PROBLEMS Type Condition ICD9-CM Code XWU46-MN Code Onset Dates Condition Status SNOMED Code Problem Migraine with aura and without status migrainosus, not intractable G43.109 Active 9811658 Problem PCOS (polycystic ovarian syndrome) E28.2 Active 77872467 Problem Uncomplicated severe persistent asthma J45.50 Active 666689838 Problem Severe persistent asthma with exacerbation J45.51 Active 280889179 Problem Other elevated white blood cell (WBC) count D72.828 Active 590672551 Problem Multiple food allergies Z91.018 Active 483775166 Problem Pure hypercholesterolemia E78.00 Active 833890623 Problem Current chronic use of inhaled steroid Z79.51 Active 060852357 Problem Asthma exacerbation J45.901 Active 000636933 Problem ADD (attention deficit disorder) F90.0 Active 298818971 Problem Allergic rhinitis due to pollen J30.1 Active 26066776 Problem Vitamin D deficiency E55.9 Active 26737083 Problem Major depressive disorder, recurrent episode, mild F33.0 Active 047712336 Problem Acquired hypothyroidism E03.9 Active 928543912 Problem Gastroesophageal reflux disease without esophagitis K21.9 Active 019847776 ALLERGIES No Information ENCOUNTERS Encounter Location Date Diagnosis [facility] [id number] [address] Dec, [facility] [id number] [place] [address] 60207- 5397 Oct, [facility] [address], [place] [address] Oct, Allergic rhinitis due to pollen J30.1 [facility] [address] [place] [address] 44615- 0145 Oct, [place] [id number] [place] [address] 18313- 2409 Oct, Allergic rhinitis due to pollen J30.1 [facility] [id number] [place] [address] 37179- 4291 13 Oct, 2017 Severe persistent asthma with exacerbation J45.51 and Pneumonia due to Haemophilus influenzae, unspecified laterality, unspecified part of lung J14 [facility] [id number] [place] [address] 63022- 7113 Oct, ADD (attention deficit disorder) F90.[address] 59203- 6008 Aug, Haemophilus influenzae infection A49.[address] 46736- 3170 Aug, Cough productive of purulent sputum R05 [place] [id number] [place] [address] 86981- 7854 Aug, [address] 24033- 1240 Aug, Pulmonary congestion R09.89 [address] [address] [id number] [place] [address] 30532- 0634 Aug, Severe persistent asthma with exacerbation J45.51 ; Hiatal hernia K44.9 and Gastroesophageal reflux disease without esophagitis K21.9 [place] [id number] [place] [address] 80763- 9094 Aug, Other elevated white blood cell (WBC) count D72.[address] 32744- 2215 Aug, Uncomplicated severe persistent asthma J45.50 [id number] [place] [address] 07765- 7619 Aug, Pure hypercholesterolemia E78.00 ; Uncomplicated severe persistent asthma J45.50 and Acquired hypothyroidism E03.9 [facility] [address] 89623- 2848 Aug, Acquired hypothyroidism E03.9 ; Pure hypercholesterolemia E78.00 and Uncomplicated severe persistent asthma J45.50 [place] [address] 88239- 4324 15 Aug, 2017 Allergic rhinitis due to pollen J30.1 [place] [address] 55509- 9569 Aug, Allergic rhinitis due to pollen J30.1 [place] [address] 87045- 6125 Aug, [place] [address] [id number] Jul, Pharyngitis, unspecified etiology J02.9 and Lymphadenopathy R59.1 [place] [address] 90462- 4502 Jul, ADD (attention deficit disorder) F90.0 [place] [address] 04400- 7884 Jul, Allergic rhinitis due to pollen J30.1 [place] [address] 21957- 5227 Jul, Dental examination Z01.20 [place] [address] 11044- 3665 Jun, Cough productive of purulent sputum R05 [place] [address] 75691- 3326 Jun, Allergic rhinitis due to pollen J30.1 [place] [address] 10038- 7421 Jun, [place] [address] 35689- 0150 Jun, Allergic rhinitis due to pollen J30.1 [place] [address] [place] [address] 38033- 2119 Jun, Allergic rhinitis due to pollen J30.1 [place] [id number] [place] [address] 62276- 2064 May, Allergic rhinitis due to pollen J30.1 [place] [id number] [place] [address] 34764- 4776 May, Pneumonia due to Haemophilus influenzae, unspecified laterality, unspecified part of lung J14 [place] [id number] [place] [address] 25293- 9630 May, Allergic rhinitis due to pollen J30.1 [place] [id number] [place] [address] 51472- 4387 May, Other adverse food reactions, not elsewhere classified, initial encounter T78.1XXA and Pneumonia due to Haemophilus influenzae, unspecified laterality, unspecified part of lung J14 [place] [id number] [place] [address] 99985- 1016 May, Pneumonia due to Haemophilus influenzae, unspecified laterality, unspecified part of lung J14 [place] [id number] [place] [address] 02014- 7459 May, Multiple food allergies Z91.018 ; Uncomplicated severe persistent asthma J45.50 ; Cough productive of purulent sputum R05 and Uses central nervous system stimulants F15.90 [place] [address] [place] [address] 82743- 3315 Apr, Allergic rhinitis due to pollen J30.1 [facility] [id number] [place] [address] 30873- 5982 Apr, Allergic rhinitis due to pollen J30.1 [facility] [id number] [place] [address] 92404- 7887 Apr, Allergic rhinitis due to pollen J30.1 [place] [id number] [place] [address] 68431- 8838 Apr, ADD (attention deficit disorder) F90.0 [place] [id number] [place] [address] 96553- 3572 28 Mar, 2017 Allergic rhinitis due to pollen J30.1 [place] [id number] [place] [address] 15706- 2746 21 Mar, 2017 Encounter for immunization Z23 [place] [address] 86252- 6743 19 Mar, 2017 [place] [address] 42319- 7134 14 Mar, 2017 Allergic rhinitis due to pollen J30.1 [place] [id number] [place] [address] 83662- 1602 07 Mar, 2017 Allergic rhinitis due to pollen J30.1 [place] [address] 70409- 9618 Jan, Allergic rhinitis due to pollen J30.1 [facility] [id number] [place] [address] 35764- 3057 Jan, Allergic rhinitis due to pollen J30.1 [place] [id number] [place] [address] 05102- 1457 Dec, Uncomplicated severe persistent asthma J45.50 [place] [id number] [place] [address] 68126- 9247 Dec, Allergic rhinitis due to pollen J30.1 [place] [id number] [place] [address] 97218- 1272 Dec, Allergic rhinitis due to pollen J30.1 [place] [id number] [place] [address] 05668- 5740 Dec, Allergic rhinitis due to pollen J30.1 [place] [id number] [place] [address] 25263- 4458 Dec, ADD (attention deficit disorder) F90.0 [place] [id number] [place] [address] 62972- 4090 Dec, Allergic rhinitis due to pollen J30.1 [place] [id number] [place] [address] 73582- 8356 Dec, Visit for TB skin test Z11.1 and Screening for tuberculosis Z11.1 [place] [address] 41903- 0199 Dec, Uncomplicated severe persistent asthma J45.50 ; Palpitations R00.2 ; Pericardial effusion (noninflammatory) I31.3 and Chest discomfort R07.89 [place] [address] 44583- 4650 Dec, Allergic rhinitis due to pollen J30.1 [place] [id number] [place] [address] 90342- 1237 Dec, Chronic cough R05 [place] [address] 29766- 9307 Dec, [place] [address] 30100- 3113 Dec, Allergic rhinitis due to pollen J30.1 [place] [id number] [place] [address] 05699- 8631 Dec, Allergic rhinitis due to pollen J30.1 [facility] [id number] [place] [address] 82885- 5908 Dec, Chronic cough R05 [place] [id number] [place] [address] 22526- 5110 October, Allergic rhinitis due to pollen J30.1 [place] [id number] [place] [address] 97142- 6826 October, Allergic rhinitis due to pollen J30.1 [place] [id number] [place] [address] 06120- 8007 October, [place] [id number] [place] [address] 50931- 3281 October, Asthma exacerbation J45.901 [place] [address] [place] [address] 89876- 1427 October, Asthma exacerbation J45.901 and Current chronic use of inhaled steroid Z79.51 [place] [address] 13793- 1679 October, Uncomplicated severe persistent asthma J45.50 [place] [address] [place] [address] 56009- 8894 October, Allergic rhinitis due to pollen J30.1 [place] [id number] [place] [address] 90345- 8003 Oct, [place] [address] 99058- 9106 Oct, Asthma exacerbation J45.901 and Sputum production R05 [place] [id number] [place] [address] 01532- 6495 Oct, Asthma exacerbation J45.901 [place] [id number] [place] [address] 63385- 5377 Oct, ADD (attention deficit disorder) F90.0 [place] [id number] [place] [address] 77990- 2534 Oct, ADD (attention deficit disorder) F90.0 [place] [id number] [place] [address] 34704- 0481 Aug, Allergic rhinitis due to pollen J30.1 [place] [id number] [place] [address] 46335- 7392 Aug, Atypical pneumonia J18.9 [place] [id number] [place] [address] 55262- 2816 Aug, Allergic rhinitis due to pollen J30.1 [place] [address] 54400- 9709 Aug, Acquired hypothyroidism E03.[address] 19923- 5831 Aug, Multiple food allergies Z91.018 ; Elevated blood pressure reading R03.0 and Anaphylaxis, subsequent encounter T78.2XXD [place] [address] [id number] Aug, [place] [address] 17003- 8183 Aug, Anaphylaxis, initial encounter T78.2XXA [address] 09038- 6688 Aug, Allergic rhinitis due to pollen J30.[address] 83911- 6240 Aug, Dental examination Z01.20 [place] [address] 02042- 2462 Aug, Allergic rhinitis due to pollen J30.1 [place] [address] 69191- 9105 Aug, Acquired hypothyroidism E03.9 and Pure hypercholesterolemia E78.[address] 41289- 7366 Aug, ADD (attention deficit disorder) F90.0 ; Acquired hypothyroidism E03.9 and Pure hypercholesterolemia E78.00 [place] [address] 55180- 4473 Aug, Asthma exacerbation J45.901 [place] [address] 73561- 2771 Jul, Allergic rhinitis due to pollen J30.1 [place] [address] 69754- 7293 Jul, Allergic rhinitis due to pollen J30.1 [facility] [address], [place] [address]- 9771 Jul, [facility] [id number] [place] [address] 27413- 2786 Jul, Allergic rhinitis due to pollen J30.1 [facility] [address] [place] [address] 46295- 6305 Jul, 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 and ADD ( attention deficit disorder) F90.0 [facility] [id number] [place] [address] 90674- 2603 Jul, Other group home (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 and ADD ( attention deficit disorder) F90.0 [facility] [id number] [place] [address] 41037- 2390 Jul, [facility] [id number] [place] [address] 53948- 3172 Jun, Allergic rhinitis due to pollen J30.1 [facility] [id number] [place] [address] 70892- 3464 Jun, Allergic rhinitis due to pollen J30.1 [facility] [address] [place] [address] 57952- 6757 Jun, [facility] [id number] [place] [address] 05633- 2052 May, Allergic rhinitis due to pollen J30.1 [facility] [id number] [place] [address] 94365- 5678 May, Allergic rhinitis due to pollen J30.1 [facility] [id number] [place] [address] 74717- 8532 Apr, Allergic rhinitis due to pollen J30.1 [facility] [id number] [place] [address] 67587- 4810 Apr, Allergic rhinitis due to pollen J30.1 [facility] [address], [place] [address]- 2666 Apr, Encounter for immunization Z23 [facility] [id number] [place] [address] 73144- 7202 Apr, [facility] [id number] [place] [address] 32233- 1749 Mar, Allergic rhinitis due to pollen J30.1 [facility] [id number] [place] [address] 33825- 3689 Mar, Multiple allergies Z88.9 [facility] [id number] [place] [address] 81277- 6948 Mar, Candidal vaginitis B37.3 [facility] [id number] [place] [address] 33804- 4754 Mar, Allergic rhinitis due to pollen J30.1 [facility] [id number] [place] [address] 52703- 7910 Jan, Asthma exacerbation J45.901 ; Fatigue, unspecified type R53.83 and Community acquired pneumonia J18.9 [facility] [address] [place] [address] [id number] Jan, Encounter for dental examination Z01.20 [facility] [address] [place] [address] 66946- 9226 Jan, Allergic rhinitis due to pollen J30.1 [facility] [address] [place] [address] 67011- 7037 Dec, Allergic rhinitis due to pollen J30.1 [facility] [id number] [place] [address] 18948- 9288 Dec, [facility] [id number] [place] [address] 73771- 7986 Dec, Allergic rhinitis due to pollen J30.1 [facility] [id number] [place] [address] [place] [address]- 2995 Dec, [facility] [address], [place] [address]- 5929 Dec, [facility] [address], [place] [address]- 7001 Dec, [facility] [address] [place] [address] 45130- 5610 Dec, Allergic rhinitis due to pollen J30.1 [facility] [address], [place] [address]- 0690 Dec, [facility] [id number] [place] [address] 02631- 4522 Dec, [facility] [id number] [place] [address] 83902- 7371 Dec, Allergic rhinitis due to pollen J30.1 [facility] [id number] [place] [address] 29208- 7242 October, Allergic rhinitis due to pollen J30.1 [facility] [address] [place] [address] 68411- 2319 October, Allergic rhinitis due to pollen J30.1 [facility] [address], [place] [address]- 5245 October, [facility] [address], [place] [address]- 6607 October, [facility] [address] [place] [address] 27605- 6588 October, ADD (attention deficit disorder) F90.0 ; Major depressive disorder, recurrent episode, mild F33.0 and Uncomplicated severe persistent asthma J45.50 [facility] [address], [place] [address]- 4966 Oct, Allergic rhinitis due to pollen J30.1 [facility] [address] [place] [address] 24530- 4958 Oct, ADD (attention deficit disorder) F90.0 [facility] [id number] [place] [address] 25007- 1725 Oct, Allergic rhinitis due to pollen 477.0 [facility] [id number] [place] [address] 87443- 1513 Aug, Allergic rhinitis due to pollen 477.0 [facility] [address] 71962- 7150 Aug, 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 [facility] [id number] [place] [address] 23834- 7421 Aug, [facility] [id number] [place] [address] 55070- 0414 Aug, Allergic rhinitis due to pollen 477.0 [place] [address] 48895- 4609 Aug, Allergic rhinitis due to pollen 477.0 [facility] [id number] [place] [address] 21698- 5095 Aug, Allergic rhinitis due to pollen 477.0 [facility] [id number] [place] [address] 68386- 1922 Aug, Exposure to influenza Z20.828 [facility] [id number] [place] [address] [id number] Aug, Encounter for dental examination and cleaning without abnormal findings Z01.20 [facility] [id number] [place] [address] 53540- 3363 Aug, Allergic rhinitis due to pollen J30.1 [facility] [id number] [place] [address] 70130- 8703 Aug, [facility] [id number] [place] [address] 51484- 9960 Aug, 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 [place] [address] 19679- 3652 Jul, [place] [address] 00308- 3023 Jul, Allergic rhinitis due to pollen 477.0 [facility] [address] 08660- 8005 Jul, [place] [address] 16286- 2425 Jul, Allergic rhinitis due to pollen 477.0 [place] [address] 83882- 9275 Jun, ADD (attention deficit disorder) F90.0 ; Acquired hypothyroidism E03.9 ; PCOS (polycystic ovarian syndrome) E28.2 ; Polyarthralgia M25.50 and On stimulant medication Z79.899 [place] [address] 15863- 0417 Apr, Encounter for immunization Z23 [place] [address] 97818- 7857 16 Mar, 2015 Allergic rhinitis due to pollen 477.0 [place] [address] 83824- 7841 Mar, Influenza vaccine administered V04.81 [place] [address] 28436- 1505 Mar, [place] [address] 50707- 3551 Jan, Allergic rhinitis due to pollen 477.0 [place] [address] 95010- 3448 Jan, Allergic rhinitis due to pollen 477.0 [facility] [address] 86279- 3072 Jan, Allergic rhinitis due to pollen 477.0 [facility] [address] [id number] [address] 14 Jan, 2015 Dental examination V72.2 [facility] [address], [place] [address]- 4548 Dec, Allergic rhinitis due to pollen 477.0 [facility] [id number] [address]- 3496 October, [facility] [address], [place] [address]- 4457 Oct, [facility] [id number], [place] [address]- 1225 Oct, [facility] [address], [place] [address]- 8268 Aug, [facility] [address], [place] [address]- 5935 Aug, [facility] [address], [place] [address]- 9234 Aug, [facility] [id number], [place] [address]- 0538 Aug, [facility] [address], [place] [address]- 1008 Aug, [facility] [address], [place] [address]- 5815 Aug, [facility] [address], [place] [address]- 3582 Aug, [facility] [id number] 8892 Aug, [facility] [id number] 3986 Jul, [facility] [id number] 5045 Jul, [facility] [id number] [address]- 6094 Jul, [facility] [address] [id number] [place] [address]- 6910 Jul, [facility] [place] [facility] [address] [id number] [place] [address]- 3676 Jul, [facility] [address] [id number] [place] [address]- 9993 Jul, [facility] [address] [id number] [place] [address]- 4169 Jul, [facility] [address] [id number] [place] [address] Jul, [facility] [address] [id number] [place] [address] Jul, [facility] [address] [id number] [place] [address] Jul, [facility] [address] [id number] [place] [address] Jul, [facility] [address] [id number] [place] [address] Jun, [facility] [address] [id number] [place] [address] Jun, [facility] [place] [facility] [address] [id number] [place] [address] Jun, [facility] [place] [facility] [address] [id number] [place] [address] Jun, [facility] [place] [facility] [address] [id number] [place] [address] Jun, [facility] [place] [facility] [address] [id number] [place] [address] Jun, [facility] [place] [facility] [address] [id number] [place] [id number] May, [facility] [place] [facility] [address] [id number] [place] [address] May, [facility] [place] [facility] [address] [id number] [place] [address] May, [facility] [place] [facility] [address] [id number] [place] [address] May, [facility] [place] [facility] [address] [id number] [place] [address] May, [facility] [place] [facility] [address] [id number] [place] [address] May, [facility] [place] [facility] [address] [id number] [place] [address] Apr, [facility] [place] [facility] [address] [id number] [place] [address] Apr, [facility] [place] [facility] [address] [id number] [place] [address] 30 Mar, 2014 [facility] [place] [facility] [address] [id number] [place] [address] 30 Mar, 2014 [facility] [place] [facility] [address] [id number] [place] [address] 30 Mar, 2014 [facility] [place] [facility] [address] [id number] [place] [address] 30 Mar, 2014 [facility] [place] [facility] [address] [id number] [place] [address] Mar, [facility] [place] [facility] [address] [id number] [place] [address] Mar, [facility] [place] [facility] [address] [id number] [place] [address] Jan, [facility] [place] [facility] [address] [id number] [place] [address] 7[address] Jan, [facility] [place] [facility] [address] [id number] [place] [address] 8[address] Jan, [facility] [place] [facility] [address] [id number] [place] [address] Jan, [facility] [place] [facility] [address] [id number] [place] [address] 5[address] Jan, [facility] [place] [facility] [address] [id number] [place] [address] 26[address] Jan, [facility] [place] [facility] [address] [id number] [place] [address] 9370 Dec, [facility] [place] [facility] [address] [id number] [place] [address] 0556 Dec, [facility] [place] [facility] [address] [id number] [place] [address] 6532 Dec, [facility] [place] [facility] [address] [id number] [place] [address]- 0702 Dec, [facility] [place] [facility] [address] [id number] [place] [address]- 0530 Dec, [facility] [place] [facility] [address] [id number] [place] [address]- 4654 Dec, [facility] [place] [facility] [address] [id number] [place] [address]- 9516 Dec, [facility] [place] [facility] [address] [id number] [place] [address]- 2260 Dec, [facility] [place] [facility] [address] [id number] [place] [address]- 0172 Dec, [facility] [place] [facility] [address] [id number] [place] [address]- 9492 Dec, [facility] [place] [facility] [address] [id number] [place] [address] 8039 Dec, [facility] [place] [facility] [address] [id number] [place] [address]- 8220 Dec, [facility] [place] [facility] [address] [id number] [place] [address]- 8943 Dec, [facility] [place] [facility] [address] [id number] [place] [address]- 7018 Dec, [facility] [place] [facility] [address] [id number] [place] [address]- 7751 Dec, [facility] [place] [facility] [address] [id number] [place] [address]- 8228 Dec, [facility] [place] [facility] [address] [id number] [place] [address] October, [facility] [place] [facility] [address] [id number] [place] [address]- 9560 October, [facility] [place] [facility] [address] [id number] [place] [address]- 6172 October, [facility] [place] [facility] [address] [id number] [place] [address]- 8968 October, [facility] [place] [facility] [address] [id number] [place] [address]- 4316 October, [facility] [place] [facility] [address] [id number] [place] [address]- 0589 October, [facility] [place] [facility] [address] [id number] [place] [address]- 7606 Oct, [facility] [place] [facility] [address] [id number] [place] [address]- 6012 Oct, [facility] [place] [facility] [address] [id number] [place] [address]- 4127 Oct, [facility] [place] [facility] [address] [id number] [place] [address]- 2552 Oct, [facility] [place] [facility] [address] [id number] [place] [address]- 1006 Oct, [facility] [place] [facility] [address] [id number] [place] [address]- 6100 Oct, [facility] [address] [id number] [place] [address]- 3557 Aug, [facility] [place] [facility] [address] [id number] [place] [address]- 0523 Aug, [facility] [place] [facility] [address] [facility] [id number] [place] [address]68 Aug, [facility] [place] [facility] [address] [id number] [place] [address] Aug, [facility] [place] [facility] [address] [id number] [place] [address]- 9272 Jul, [facility] [place] [facility] [address] [id number] [place] [address] 8587 Jul, [facility] [place] [facility] [address] [facility] [id number] [place] [address] 5039 Jul, [facility] [place] [facility] [address] [id number] [place] [address]- 7993 Jul, [facility] [place] [facility] [address] [id number] [place] [address]- 1305 Jun, [facility] [place] [facility] [address] [id number] [place] [address]- 5144 Jun, [facility] [place] [facility] [address] [id number], [place] [address]- [address] 24 Jun, 2013 [facility] [place] [facility] [address] [id number], [place] [address]- [address] 24 Jun, 2013 [facility] [place] [facility] [address] [id number] [place] [address] 20 Jun, 2013 [facility] [place] [facility] [address] [facility] [id number] [place] [address]- 1705 18 Jun, 2013 [facility] [place] [facility] [address] [facility] [id number] [place] [address] Jun, [facility] [place] [facility] [address] [id number] [place] [address]- 0639 Jun, [facility] [address] [id number] [place] [address]- 7916 Jun, [facility] [place] [facility] [address] [id number] [place] [address]- 5216 Jun, [facility] [address] [id number] [place] [address]- 0128 Jun, [facility] [place] [facility] [address] [id number] [place] [address]- 3603 May, [facility] [address] [id number] [place] [address]- 3176 May, [facility] [address] [id number] [place] [address]- 3867 May, [facility] [address] [id number] [place] [address]- 3550 May, [facility] [address] [id number] [place] [address]- 5274 May, [facility] [address] [facility] [id number] [place] [address]- 7441 May, [facility] [address] [facility] [id number] [place] [address]- 5413 May, [facility] [place] [facility] [address] [id number] [place] [address]- 5770 Apr, [facility] [place] [facility] [address] [id number] [place] [address]- 9605 Apr, [facility] [place] [facility] [address] [id number] [place] [address]- 9799 Apr, [facility] [place] [facility] [address] [facility] [id number] [place] [address]- 2546 Apr, [facility] [place] [facility] [address] [id number] [place] [address]- 1357 Mar, [facility] [place] [facility] [address] [id number] [place] [address]- 4175 Mar, 2012 [facility] [place] [facility] [address] [id number] [place] [address]- 0026 Mar, [facility] [place] [facility] [address] [id number] [place] [address]- 0518 Mar, [facility] [place] [facility] [address] [id number] [place] [address]- 7705 Mar, [facility] [place] [facility] [address] [id number] [place] [address]- 2342 Mar, [facility] [place] [facility] [address] [id number] [place] [address]- 4174 Jan, [facility] [place] [facility] [address] [id number] [place] [address]- 9809 Jan, [facility] [place] [facility] [address] [id number] [place] [address]- 9889 Jan, [facility] [place] [facility] [address] [id number] [place] [address]- 7205 Jan, [facility] [place] [facility] [address] [id number] [place] [address]- 8642 Jan, [facility] [place] [facility] [address] [id number] [place] [address]- 7677 Dec, [facility] [place] [facility] [address] [id number], [place] [address]- 8976 Dec, [facility] [place] [facility] [address] [id number] [place] [address]- 0700 Dec, [facility] [place] [facility] [address] [id number] [place] [address]- 1848 Dec, [facility] [place] [facility] [address] [id number] [place] [address]- 6448 Dec, [facility] [place] [facility] [address] [id number] [place] [address]- 4618 Dec, [facility] [address] [id number] [place] [address]- 3556 Dec, [facility] [place] [facility] [address] [id number] [place] [address]- 7854 Dec, [facility] [address] [id number] [place] [address]- 0748 October, [facility] [address] [id number] [place] [address]- 7894 October, [facility] [address] [id number] [place] [address]- 2136 October, [facility] [address] [id number] [place] [address]- 2551 Oct, [facility] [address] [id number] [place] [address]- 5213 Oct, [facility] [address] [id number] [place] [address]- 6132 Oct, [facility] [address] [id number] [place] [address]- 0557 Oct, [facility] [address] [facility] [id number] [place] [address]- 0455 Aug, [facility] [address] [id number] [place] [address]- 9150 Aug, [facility] [place] [facility] [address] [id number] [place] [address]- 2185 Aug, [facility] [place] [facility] [address] [id number] [place] [address]- 0049 Jul, [facility] [place] [facility] [address] [id number] [place] [address]- 2150 May, [facility] [place] [facility] [address] [facility] [id number] [place] [address]- 4529 May, [facility] [place] [facility] [address] [id number] [place] [address]- 1977 Apr, [facility] [place] [facility] [address] [id number] [place] [address]- 4813 Apr, [facility] [place] [facility] [address] [id number] [place] [address]- 2903 Apr, [facility] [place] [facility] [address] [id number] [place] [address]- 4397 Apr, [facility] [place] [facility] [address] [id number] [place] [address]- 9921 Apr, [facility] [place] [facility] [address] [id number] [place] [address]- 6121 Apr, [facility] [place] [facility] [address] [id number] [place] [address]- 3909 Apr, [facility] [place] [facility] [address] [id number] [place] [address]- 2281 Apr, [facility] [place] [facility] [address] [id number] [place] [address]- 7136 Apr, [facility] [place] [facility] [address] [id number] [place] [address]- 6911 Apr, [facility] [place] [facility] [address] [id number] [place] [address]- 2102 Apr, [facility] [place] [facility] [address] [id number] [place] [address]- 3526 Apr, [facility] [place] [facility] [address] [id number] [place] [address]- 1412 Mar, [facility] [place] [facility] [address] [id number] [place] [address]- 4071 Jan, [facility] [place] [facility] [address] [id number] [place] [address]- 0656 Dec, [facility] [place] [facility] [address] [id number] [place] [address]- 4956 October, [facility] [place] [facility] [address] [id number] [place] [address]- 0441 Oct, [facility] [place] [facility] [address] [id number] [place] [address]- 9992 Oct, [facility] [place] [facility] [address] [id number] [place] [address]- 9509 Oct, [facility] [place] [facility] [address] [id number] [place] [address]- 8886 Aug, [facility] [place] [facility] [address] [id number] [place] [address]- 4609 Aug, [facility] [place] [facility] [address] [id number] [place] [address]- 2911 29 Aug, 2011 [facility] [place] [facility] [address] [id number] [place] [address]- 7586 16 Aug, 2011 [facility] [place] [facility] [address] [id number] [place] [address]- 4532 15 Aug, 2011 [facility] [place] [facility] [address] [id number] [place] [address]- 0683 Aug, [facility] [place] [facility] [address] [id number] [place] [address] Jun, [facility] [place] [facility] [address] [id number] [place] [address]- 3169 Apr, [facility] [place] [facility] [address] [id number] [place] [address]- 0116 Jun, [facility] [place] [facility] [address] [id number] [place] [address]- 1359 Jun, [facility] [place] [facility] [address] [facility] [id number] [place] [address]- 5552 May, [facility] [place] [facility] [address] [facility] [id number] [place] [address]- 8862 May, [facility] [place] [facility] [address] [facility] [id number] [place] [id number] [address] 15 Apr, 2009 [facility] [address] [facility] [id number] [place] [address]- 5346 13 Apr, 2009 IMMUNIZATIONS No Known Immunizations SOCIAL HISTORY Never Assessed REASON FOR VISIT Controlled Medication Refill PLAN OF CARE VITAL SIGNS MEDICATIONS Medication Instructions Dosage Frequency Start Date End Date Duration Status Concerta 54 MG Orally Once a day 1 tablet in the morning 24h Apr, 90 days Active RESULTS No Results PROCEDURES [...] History see above surgeries Hospitalization History Anaphylactic shock-[facility] 08/23/16
--- OUTSIDE RECORDS SUMMARY | 2018-07-18 07:47 | XMS REPORT ---
Author Author PRETTY TABOR [facility] Address [address] [place] [address] Care Team Providers Care Vice President Of Business Development Name Role Phone PRETTY TABOR Unavailable PROBLEMS Type Condition ICD9-CM Code QLN42-ZY Code Onset Dates Condition Status SNOMED Code Problem Migraine with aura and without status migrainosus, not intractable G43.109 Active 0674485 Problem PCOS (polycystic ovarian syndrome) E28.2 Active 84660033 Problem Uncomplicated severe persistent asthma J45.50 Active 538387462 Problem Severe persistent asthma with exacerbation J45.51 Active 832230667 Problem Other elevated white blood cell (WBC) count D72.828 Active 762241900 Problem Multiple food allergies Z91.018 Active 990940038 Problem Pure hypercholesterolemia E78.00 Active 433329142 Problem Current chronic use of inhaled steroid Z79.51 Active 827859764 Problem Asthma exacerbation J45.901 Active 420775985 Problem ADD (attention deficit disorder) F90.0 Active 010250824 Problem Allergic rhinitis due to pollen J30.1 Active 10484171 Problem Vitamin D deficiency E55.9 Active 28256958 Problem Major depressive disorder, recurrent episode, mild F33.0 Active 162871701 Problem Acquired hypothyroidism E03.9 Active 116611566 Problem Gastroesophageal reflux disease without esophagitis K21.9 Active 694369902 ALLERGIES No Information ENCOUNTERS Encounter Location Date Diagnosis [facility] [id number] [address] Dec, [facility] [address], [place] [address] October, Allergic rhinitis due to pollen J30.1 [facility] [id number] [address] October, Allergic rhinitis due to pollen J30.1 [facility] [id number] [place] [address] 65826- 6663 Oct, [place] [id number] [place] [address] 21118- 0537 Oct, Allergic rhinitis due to pollen J30.1 [place] [id number] [place] [address] 80908- 8666 Oct, [place] [address] 28149- 0689 Oct, Allergic rhinitis due to pollen J30.1 [place] [id number] [place] [address] 34827- 1767 Oct, Severe persistent asthma with exacerbation J45.51 and Pneumonia due to Haemophilus influenzae, unspecified laterality, unspecified part of lung J14 [place] [id number] [place] [address] 93418- 6211 Oct, ADD (attention deficit disorder) F90.0 [place] [address] 9[address]23- 4781 Aug, Haemophilus influenzae infection A49.2 [place] [address] 92716- 5255 Aug, Cough productive of purulent sputum R05 [place] [id number] [place] [address] 98478- 1761 Aug, [place] [id number] [place] [address] 96212- 7519 Aug, Pulmonary congestion R09.89 [place] [id number] [place] [address] 01608- 4753 Aug, Severe persistent asthma with exacerbation J45.51 ; Hiatal hernia K44.9 and Gastroesophageal reflux disease without esophagitis K21.9 [place] [id number] [place] [address] 77813- 5142 Aug, Other elevated white blood cell (WBC) count D72.828 [place] [address] 94370- 6105 Aug, Uncomplicated severe persistent asthma J45.50 [facility] [address] 37087- 0096 Aug, Pure hypercholesterolemia E78.00 ; Uncomplicated severe persistent asthma J45.50 and Acquired hypothyroidism E03.9 [facility] [address] 62868- 5525 Aug, Acquired hypothyroidism E03.9 ; Pure hypercholesterolemia E78.00 and Uncomplicated severe persistent asthma J45.50 [place] [address] 027545- 6779 15 Aug, 2017 Allergic rhinitis due to pollen J30.1 [place] [address] 43829- 7422 Aug, Allergic rhinitis due to pollen J30.1 [place] [address] 98278- 3011 Aug, [facility] [address] [id number] Jul, Pharyngitis, unspecified etiology J02.9 and Lymphadenopathy R59.1 [place] [address] 87912- 7091 Jul, ADD (attention deficit disorder) F90.0 [place] [address] 86702- 0243 Jul, Allergic rhinitis due to pollen J30.1 [place] [address] 03567- 2051 Jul, Dental examination Z01.20 [place] [address] 22076- 6328 Jun, Cough productive of purulent sputum R05 [place] [address] 71619- 1489 Jun, Allergic rhinitis due to pollen J30.1 [place] [id number] [place] [address] 02855- 2345 Jun, [place] [id number] [place] [address] 50787- 3872 Jun, Allergic rhinitis due to pollen J30.1 [place] [id number] [place] [address] 04270- 0632 Jun, Allergic rhinitis due to pollen J30.1 [place] [id number] [place] [address] 96922- 1176 May, Allergic rhinitis due to pollen J30.1 [place] [id number] [place] [address] 46603- 4163 May, Pneumonia due to Haemophilus influenzae, unspecified laterality, unspecified part of lung J14 [place] [address] 20836- 4484 May, Allergic rhinitis due to pollen J30.1 [place] [id number] [place] [address] 82802- 6363 May, Other adverse food reactions, not elsewhere classified, initial encounter T78.1XXA and Pneumonia due to Haemophilus influenzae, unspecified laterality, unspecified part of lung J14 [place] [id number] [place] [address] 65663- 3395 May, Pneumonia due to Haemophilus influenzae, unspecified laterality, unspecified part of lung J14 [place] [address] [place] [address] 02935- 4976 May, Multiple food allergies Z91.018 ; Uncomplicated severe persistent asthma J45.50 ; Cough productive of purulent sputum R05 and Uses central nervous system stimulants F15.90 [place] [id number] [place] [address] 40432- 3802 Apr, Allergic rhinitis due to pollen J30.1 [place] [id number] [place] [address] 00259- 1634 Apr, Allergic rhinitis due to pollen J30.1 [place] [id number] [place] [address] 11616- 7458 Apr, Allergic rhinitis due to pollen J30.1 [place] [id number] [place] [address] 53558- 5737 11 Apr, 2017 ADD (attention deficit disorder) F90.0 [place] [address] 23606- 1200 28 Mar, 2017 Allergic rhinitis due to pollen J30.1 [place] [address] 89516- 1263 21 Mar, 2017 Encounter for immunization Z23 [place] [id number] [place] [address] 63392- 5900 19 Mar, 2017 [place] [address] 75639- 1907 14 Mar, 2017 Allergic rhinitis due to pollen J30.1 [place] [id number] [place] [address] 02656- 0068 07 Mar, 2017 Allergic rhinitis due to pollen J30.1 [place] [id number] [place] [address] 16276- 1574 Jan, Allergic rhinitis due to pollen J30.1 [place] [id number] [place] [address] 91211- 8730 Jan, Allergic rhinitis due to pollen J30.1 [place] [id number] [place] [address] 72998- 1009 Dec, Uncomplicated severe persistent asthma J45.50 [place] [id number] [place] [address] 07546- 7888 Dec, Allergic rhinitis due to pollen J30.1 [facility] [id number] [place] [address] 96077- 1978 Dec, Allergic rhinitis due to pollen J30.1 [place] [address] [place] [address] 64936- 7591 Dec, Allergic rhinitis due to pollen J30.1 [place] [id number] [place] [address] 20704- 7103 Dec, ADD (attention deficit disorder) F90.0 [place] [address] 37715- 8503 Dec, Allergic rhinitis due to pollen J30.1 [place] [id number] [place] [address] 82407- 1078 Dec, Visit for TB skin test Z11.1 and Screening for tuberculosis Z11.1 [place] [id number] [place] [address] 18969- 7551 Dec, Uncomplicated severe persistent asthma J45.50 ; Palpitations R00.2 ; Pericardial effusion (noninflammatory) I31.3 and Chest discomfort R07.89 [place] [id number] [place] [address] 02941- 5521 Dec, Allergic rhinitis due to pollen J30.1 [place] [id number] [place] [address] 20968- 0188 Dec, Chronic cough R05 [place] [id number] [place] [address] 40843- 0788 Dec, [place] [id number] [place] [address] 44431- 1739 Dec, Allergic rhinitis due to pollen J30.1 [place] [id number] [place] [address] 16747- 9965 Dec, Allergic rhinitis due to pollen J30.1 [place] [id number] [place] [address] 56910- 9770 Dec, Chronic cough R05 [place] [id number] [place] [address] 30029- 3538 October, Allergic rhinitis due to pollen J30.1 [facility] [address] [place] [address] 31232- 9649 October, Allergic rhinitis due to pollen J30.1 [facility] [id number] [place] [address] 86524- 4334 October, [place] [id number] [place] [address] 61257- 0823 October, Asthma exacerbation J45.901 [place] [id number] [place] [address] 67670- 1891 October, Asthma exacerbation J45.901 and Current chronic use of inhaled steroid Z79.51 [place] [id number] [place] [address] 61174- 6633 October, Uncomplicated severe persistent asthma J45.50 [place] [address] 36709- 7802 October, Allergic rhinitis due to pollen J30.1 [place] [id number] [place] [address] 44283- 9666 Oct, [place] [id number] [place] [address] 43441- 3575 Oct, Asthma exacerbation J45.901 and Sputum production R05 [place] [id number] [place] [address] 50847- 1689 Oct, Asthma exacerbation J45.901 [place] [id number] [place] [address] 81378- 4072 Oct, ADD (attention deficit disorder) F90.0 [place] [address] 77461- 1053 Oct, ADD (attention deficit disorder) F90.0 [place] [id number] [place] [address] 40776- 3633 Aug, Allergic rhinitis due to pollen J30.1 [place] [address] 19138- 6244 Aug, Atypical pneumonia J18.9 [place] [address] 51999- 8285 Aug, Allergic rhinitis due to pollen J30.1 [place] [address] 93968- 7925 Aug, Acquired hypothyroidism E03.9 [place] [address] 16706- 8017 Aug, Multiple food allergies Z91.018 ; Elevated blood pressure reading R03.0 and Anaphylaxis, subsequent encounter T78.2XXD [address] [id number] Aug, [address] 11175- 0809 Aug, Anaphylaxis, initial encounter T78.2XXA [address] 36475- 8132 Aug, Allergic rhinitis due to pollen J30.[address] 89287- 6695 Aug, Dental examination Z01.[address] 66258- 5824 Aug, Allergic rhinitis due to pollen J30.1 [place] [address] 23399- 8092 Aug, Acquired hypothyroidism E03.9 and Pure hypercholesterolemia E78.[address] 74986- 5119 Aug, ADD (attention deficit disorder) F90.0 ; Acquired hypothyroidism E03.9 and Pure hypercholesterolemia E78.00 [place] [address] 69877- 7712 Aug, Asthma exacerbation J45.901 [facility] [address] [place] [address] 75995- 9652 Jul, Allergic rhinitis due to pollen J30.1 [facility] [address] [place] [address] 85407- 4912 Jul, Allergic rhinitis due to pollen J30.1 [facility] [id number] [place] [address] 67999- 0362 Jul, [facility] [address] [place] [address] 39785- 4631 Jul, Allergic rhinitis due to pollen J30.1 [facility] [id number] [place] [address] 58703- 3311 Jul, Other fpc (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 and ADD ( attention deficit disorder) F90.0 [facility] [id number] [place] [address] 57871- 7616 Jul, Other fpc (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 and ADD ( attention deficit disorder) F90.0 [facility] [id number] [place] [address] 03350- 8608 Jul, [facility] [address] [place] [address] 13240- 6137 Jun, Allergic rhinitis due to pollen J30.1 [facility] [address] [place] [address] 16373- 3430 Jun, Allergic rhinitis due to pollen J30.1 [facility] [address], [place] [address]- 3291 Jun, [facility] [id number] [place] [address] 63862- 4702 May, Allergic rhinitis due to pollen J30.1 [facility] [address] [place] [address] 11003- 0415 May, Allergic rhinitis due to pollen J30.1 [place] [id number] [place] [address] 30936- 8623 Apr, Allergic rhinitis due to pollen J30.1 [place] [id number] [place] [address] 58029- 8810 Apr, Allergic rhinitis due to pollen J30.1 [place] [address] 94276- 8268 Apr, Encounter for immunization Z23 [place] [id number] [place] [address] 72264- 9166 Apr, [place] [address] 06540- 8879 Mar, Allergic rhinitis due to pollen J30.1 [place] [address] 68424- 4254 Mar, Multiple allergies Z88.9 [place] [id number] [place] [address] 34016- 6698 Mar, Candidal vaginitis B37.3 [place] [address] 33332- 9467 Mar, Allergic rhinitis due to pollen J30.1 [place] [id number] [place] [address] 75706- 1345 Jan, Asthma exacerbation J45.901 ; Fatigue, unspecified type R53.83 and Community acquired pneumonia J18.9 [facility] [id number] [place] [address] [id number] Jan, Encounter for dental examination Z01.20 [place] [address] 48981- 1773 Jan, Allergic rhinitis due to pollen J30.1 [place] [id number] [place] [address] 53852- 9287 Dec, Allergic rhinitis due to pollen J30.1 [place] [address] [facility] [id number] [address]- 5565 Dec, [facility] [address] [facility] [id number] [address]- 2204 Dec, Allergic rhinitis due to pollen J30.1 [facility] [address] [facility] [id number], [place] [address]- 4516 Dec, [facility] [address] [facility] [id number], [place] [address]- 7940 Dec, [facility] [address] [facility] [id number], [place] [address]- 1325 Dec, [facility] [address] [facility] [id number], [place] [address]- 8621 Dec, Allergic rhinitis due to pollen J30.1 [facility] [address], [place] [address]- 1787 Dec, [facility] [id number], [place] [address]- 5321 Dec, [facility] [id number], [place] [address]- 1707 Dec, Allergic rhinitis due to pollen J30.1 [facility] [id number], [place] [address]- 7582 October, Allergic rhinitis due to pollen J30.1 [facility] [id number], [place] [address]- 9548 October, Allergic rhinitis due to pollen J30.1 [facility] [address] [facility] [id number], [place] [address]- 9798 October, [facility] [address], [place] [address]- 7302 October, [facility] [id number], [place] [address]- 1018 October, ADD (attention deficit disorder) F90.0 ; Major depressive disorder, recurrent episode, mild F33.0 and Uncomplicated severe persistent asthma J45.50 [place] [id number] [place] [address] 55092- 9956 Oct, Allergic rhinitis due to pollen J30.1 [place] [id number] [place] [address] 93132- 9969 Oct, ADD (attention deficit disorder) F90.0 [place] [address] 65691- 4192 Oct, Allergic rhinitis due to pollen 477.0 [place] [address] 50526- 5001 Aug, Allergic rhinitis due to pollen 477.0 [place] [address] 88973- 5826 Aug, 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 [place] [address] 08805- 4390 Aug, [place] [address] 72714- 7702 Aug, Allergic rhinitis due to pollen 477.0 [place] [address] 04636- 1021 Aug, Allergic rhinitis due to pollen 477.0 [place] [address] 48072- 1041 Aug, Allergic rhinitis due to pollen 477.0 [place] [id number] [place] [address] 62099- 7711 Aug, Exposure to influenza Z20.828 [facility] [id number] [place] [address] [id number] Aug, Encounter for dental examination and cleaning without abnormal findings Z01.20 [facility] [id number] [place] [address] 94148- 9347 18 Aug, 2015 Allergic rhinitis due to pollen J30.1 [place] [address] [place] [address] 65659- 9494 18 Aug, 2015 [place] [id number] [place] [address] 31188- 7752 04 Aug, 2015 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 [place] [id number] [place] [address] 35235- 8765 Jul, [place] [id number] [place] [address] 67242- 4413 Jul, Allergic rhinitis due to pollen 477.0 [place] [address] 59763- 6040 Jul, [place] [id number] [place] [address] 64647- 0144 Jul, Allergic rhinitis due to pollen 477.0 [place] [address] 07056- 1103 Jun, ADD (attention deficit disorder) F90.0 ; Acquired hypothyroidism E03.9 ; PCOS (polycystic ovarian syndrome) E28.2 ; Polyarthralgia M25.50 and On stimulant medication Z79.899 [place] [id number] [place] [address] 54987- 1163 Apr, Encounter for immunization Z23 [place] [id number] [place] [address] 63478- 2101 16 Mar, 2015 Allergic rhinitis due to pollen 477.0 [place] [id number] [place] [address] 04444- 3781 14 Mar, 2015 Influenza vaccine administered V04.81 [place] [address] 41197- 1669 03 Mar, 2015 [place] [id number] [place] [address] 09143- 2423 Jan, Allergic rhinitis due to pollen 477.0 [place] [id number] [address]- 0639 Jan, Allergic rhinitis due to pollen 477.0 [facility] [address], [place] [address]- 4865 Jan, Allergic rhinitis due to pollen 477.0 [facility] [id number] [id number] Jan, Dental examination V72.2 [facility] [address], [place] [address]- 4842 Dec, Allergic rhinitis due to pollen 477.0 [facility] [address], [place] [address]- 1077 October, [facility] [address], [place] [address]- 9317 Oct, [facility] [address], [place] [address]- 1316 Oct, [facility] [address], [place] [address]- 3767 Aug, [facility] [address], [place] [address]- 0837 Aug, [facility] [address], [place] [address]- 7305 Aug, [facility] [address], [place] [address]- 7455 Aug, [facility] [id number], [place] [address]- 2387 Aug, [facility] [address], [place] [address]- 5025 Aug, [facility] [id number] 0433 Aug, [facility] [address], [place] [address]- 9800 Aug, [facility] [place] [facility] [address] [id number] [place] [address]- 8381 Jul, [facility] [place] [facility] [address] [id number] [place] [address]- 4092 Jul, [facility] [place] [facility] [address] [id number] [place] [address]- 2334 Jul, [facility] [place] [facility] [address] [id number] [place] [address]- 8727 Jul, [facility] [place] [facility] [address] [id number] [place] [address]- 1739 Jul, [facility] [place] [facility] [address] [id number] [place] [address] Jul, [facility] [place] [facility] [address] [id number] [place] [address] Jul, [facility] [place] [facility] [address] [id number] [place] [address] Jul, [facility] [place] [facility] [address] [id number] [place] [address] Jul, [facility] [place] [facility] [address] [id number] [place] [address] Jul, [facility] [place] [facility] [address] [id number], [place] [address] Jul, [facility] [place] [facility] [address] [id number], [place] [address] Jun, [facility] [place] [facility] [address] [id number] [place] [address] Jun, [facility] [place] [facility] [address] [id number] [place] [address] Jun, [facility] [place] [facility] [address] [id number] [place] [address] Jun, [facility] [place] [facility] [address] [id number] [place] [address] Jun, [facility] [place] [facility] [address] [id number] [place] [address] Jun, [facility] [place] [facility] [address] [id number] [place] [address] May, [facility] [place] [facility] [address] [id number] [place] [address] May, [facility] [place] [facility] [address] [id number] [place] [address] May, [facility] [place] [facility] [address] [id number] [place] [address] May, [facility] [place] [facility] [address] [id number] [place] [address]- 2380 May, [facility] [place] [facility] [address] [id number] [place] [address] May, [facility] [place] [facility] [address] [id number] [place] [address] 1817 Apr, [facility] [place] [facility] [address] [id number] [place] [address] 97[address] Apr, [facility] [place] [facility] [address] [id number] [place] [address] 4[address] 30 Mar, 2014 [facility] [place] [facility] [address] [id number] [place] [address] 2540 30 Mar, 2013 [facility] [place] [facility] [address] [id number] [place] [address]- 2542 30 Mar, 2013 [facility] [place] [facility] [address] [id number] [place] [address]- 2545 30 Mar, 2014 [facility] [place] [facility] [address] [id number] [place] [address]- 2545 19 Mar, 2014 [facility] [place] [facility] [address] [id number] [place] [address]- 0562 Mar, [facility] [place] [facility] [address] [id number] [place] [address] 0552 Jan, [facility] [place] [facility] [address] [id number] [place] [address]- 1118 Jan, [facility] [place] [facility] [address] [id number] [place] [address]- 0595 Jan, [facility] [place] [facility] [address] [id number] [place] [address]- 3809 Jan, [facility] [place] [facility] [address] [id number] [place] [address]- 7363 Jan, [facility] [place] [facility] [address] [id number] [place] [address]- 0271 Jan, [facility] [place] [facility] [address] [id number] [place] [address]- 3505 Dec, [facility] [place] [facility] [address] [id number] [place] [address]- 3496 Dec, [facility] [place] [facility] [address] [id number] [place] [address]- 5858 Dec, [facility] [place] [facility] [address] [id number] [place] [address]- 0761 Dec, [facility] [place] [facility] [address] [id number] [place] [address]- 1678 Dec, [facility] [place] [facility] [address] [id number] [place] [address]- 9777 Dec, [facility] [place] [facility] [address] [id number] [place] [address]- 6882 Dec, [facility] [place] [facility] [address] [id number] [place] [address]- 2868 Dec, [facility] [place] [facility] [address] [id number] [place] [address]- 1856 Dec, [facility] [place] [facility] [address] [id number] [place] [address]- 7535 Dec, [facility] [place] [facility] [address] [id number] [place] [address]- 8180 Dec, [facility] [place] [facility] [address] [id number] [place] [address]- 4486 Dec, [facility] [place] [facility] [address] [id number] [place] [address]- 1414 Dec, [facility] [place] [facility] [address] [id number] [place] [address]- 1642 Dec, [facility] [place] [facility] [address] [id number] [place] [address]- 2400 Dec, [facility] [place] [facility] [address] [id number] [place] [address]- 0644 Dec, [facility] [place] [facility] [address] [id number] [place] [address]- 2649 October, [facility] [place] [facility] [address] [id number] [place] [address]- 9774 October, [facility] [place] [facility] [address] [id number] [place] [address]- 2401 October, [facility] [place] [facility] [address] [id number] [place] [address]- 0308 October, [facility] [place] [facility] [address] [id number] [place] [address]- 0518 October, [facility] [place] [facility] [address] [id number] [place] [address]- 4911 October, [facility] [place] [facility] [address] [id number] [place] [address]- 4231 Oct, [facility] [place] [facility] [address] [id number] [place] [address]- 1987 Oct, [facility] [place] [facility] [address] [id number] [place] [address]- 4450 Oct, [facility] [place] [facility] [address] [id number] [place] [address]- 3338 17 Oct, 2013 [facility] [place] [facility] [address] [id number] [place] [address]- 7258 Oct, [facility] [place] [facility] [address] [id number] [place] [address]- 3026 Oct, [facility] [place] [facility] [address] [id number] [place] [address]- 6702 Aug, [facility] [place] [facility] [address] [id number] [place] [address]- 1709 Aug, [facility] [place] [facility] [address] [id number] [place] [address]- 7585 Aug, [facility] [place] [facility] [address] [id number] [place] [address]- 0866 Aug, [facility] [place] [facility] [address] [id number] [place] [address]- 9617 Jul, [facility] [place] [facility] [address] [id number] [place] [address]- 7328 Jul, [facility] [place] [facility] [address] [id number] [place] [address]- 3489 Jul, [facility] [place] [facility] [address] [id number] [place] [address]- 7155 Jul, [facility] [place] [facility] [address] [id number] [place] [address]- 1412 Jun, [facility] [place] [facility] [address] [id number] [place] [address]- 3926 Jun, [facility] [place] [facility] [address] [id number] [place] [address]- 4478 Jun, [facility] [place] [facility] [address] [id number] [place] [address]- 3999 Jun, [facility] [place] [facility] [address] [id number] [place] [address]- 2246 Jun, [facility] [place] [facility] [address] [id number] [place] [address]- 4761 Jun, [facility] [place] [facility] [address] [id number] [place] [address]- 8110 Jun, [facility] [place] [facility] [address] [facility] [id number] [place] [address]- 2878 Jun, [facility] [place] [facility] [address] [id number], [place] [address]- 3394 Jun, [facility] [place] [facility] [address] [id number] [place] [address]- 4527 Jun, [facility] [place] [facility] [address] [id number], [place] [address]- 9202 Jun, [facility] [place] [facility] [address] [id number], [place] [address]- 7595 May, [facility] [place] [facility] [address] [id number], [place] [address]- 6073 May, [facility] [place] [facility] [address] [id number], [place] [address]- 1544 May, [facility] [place] [facility] [address] [facility] [id number], [place] [address]- 7348 May, [facility] [place] [facility] [address] [id number], [place] [address]- 6513 May, [facility] [place] [facility] [address] [id number], [place] [address]- 7158 May, [facility] [place] [facility] [address] [id number], [place] [address]- 0967 May, [facility] [place] [facility] [address] [id number], [place] [address]- 1571 Apr, [facility] [place] [facility] [address] [id number], [place] [address]- 3565 Apr, [facility] [place] [facility] [address] [id number] [place] [address]- 4415 18 Apr, 2013 [facility] [place] [facility] [address] [id number] [place] [address]- 1976 02 Apr, 2013 [facility] [place] [facility] [address] [id number] [place] [address] 2546 27 Mar, 2012 [facility] [place] [facility] [address] [id number] [place] [address] 2546 Mar, 2012 [facility] [place] [facility] [address] [id number] [place] [address] 2549 Mar, 2012 [facility] [place] [facility] [address] [id number] [place] [address]- 0713 Mar, [facility] [place] [facility] [address] [id number] [place] [address]- 5932 Mar, [facility] [place] [facility] [address] [id number] [place] [address]- 1936 Mar, [facility] [place] [facility] [address] [id number] [place] [address]- 8877 Jan, [facility] [place] [facility] [address] [id number] [place] [address]- 5038 Jan, [facility] [place] [facility] [address] [id number] [place] [address]- 0041 Jan, [facility] [place] [facility] [address] [id number] [place] [address] 2543 Jan, [facility] [place] [facility] [address] [id number] [place] [address]- 254 Jan, [facility] [place] [facility] [address] [id number] [place] [address]- 0829 Dec, [facility] [place] [facility] [address] [id number] [place] [address]- 2547 Dec, [facility] [place] [facility] [address] [id number] [place] [address]- 6414 Dec, [facility] [place] [facility] [address] [id number] [place] [address]- 7732 Dec, [facility] [address] [id number] [place] [address]- 4903 Dec, [facility] [address] [id number] [place] [address]- 5427 Dec, [facility] [address] [id number] [place] [address]- 6246 Dec, [facility] [address] [id number] [place] [address]- 2596 Dec, [facility] [address] [id number] [place] [address]- 4452 October, [facility] [address] [id number] [place] [address]- 9486 October, [facility] [address] [id number] [place] [address]- 5351 October, [facility] [address] [id number] [place] [address]- 5439 Oct, [facility] [address] [id number] [place] [address]- 5573 Oct, [facility] [address] [id number] [place] [address]- 5783 Oct, [facility] [address] [id number] [place] [address]- 9511 Oct, [facility] [address] [id number] [place] [address]- 5465 Aug, [facility] [place] [facility] [address] [id number] [place] [address]- 2015 Aug, [facility] [address] [id number] [place] [address]- 2816 05 Aug, 2012 [facility] [address] [id number], [place] [address]- 0655 Jul, [facility] [place] [facility] [address] [id number] [place] [address]- 6821 May, [facility] [place] [facility] [address] [id number] [place] [address] May, [facility] [place] [facility] [address] [id number] [place] [address]- 6511 Apr, [facility] [place] [facility] [address] [id number] [place] [address]- 6509 Apr, [facility] [place] [facility] [address] [id number] [place] [address]- 6465 Apr, [facility] [place] [facility] [address] [id number] [place] [address]- 3041 Apr, [facility] [place] [facility] [address] [id number] [place] [address]- 2019 Apr, [facility] [place] [facility] [address] [id number] [place] [address]- 1230 Apr, [facility] [place] [facility] [address] [id number] [place] [address]- 1708 Apr, [facility] [place] [facility] [address] [id number] [place] [address]- 4170 Apr, [facility] [place] [facility] [address] [id number], [place] [address]- 6449 Apr, [facility] [place] [facility] [address] [id number], [place] [address]- 4308 Apr, [facility] [place] [facility] [address] [id number] [place] [address]- 0726 14 Apr, 2012 [facility] [place] [facility] [address] [id number], [place] [address]- 8076 Apr, [facility] [place] [facility] [address] [id number] [place] [address]- 9662 17 Mar, 2012 [facility] [place] [facility] [address] [id number] [place] [address]- 2735 Jan, [facility] [address] [id number] [place] [address]- 7743 Dec, [facility] [place] [facility] [address] [id number] [place] [address]- 9535 October, [facility] [address] [id number] [place] [address]- 9301 Oct, [facility] [place] [facility] [address] [id number] [place] [address]- 1123 Oct, [facility] [address] [id number] [place] [address]- 0802 Oct, [facility] [address] [facility] [id number] [place] [address]- 9359 Aug, [facility] [address] [id number] [place] [address]- 9525 Aug, [facility] [address] [id number] [place] [address]- 3202 Aug, [facility] [address] [id number] [place] [address]- 6912 Aug, [facility] [address] [facility] [id number] [place] [address]- 3324 Aug, [facility] [address] [id number] [place] [address]- 8044 Aug, [facility] [address] [id number] [place] [address]- 5287 Jun, [facility] [place] [facility] [address] [id number] [place] [address]- 0126 Apr, [facility] [place] [facility] [address] [id number] [place] [address]- 9007 Jun, [facility] [place] [facility] [address] [id number] [place] [address]- 5112 Jun, [facility] [address] [facility] [id number] [place] [address]- 2546 May, [facility] [address] [facility] [id number], [place] [address]- 2546 May, [facility] [address] [facility] [id number], [place] [address]- 2546 Apr, [facility] [address] [facility] [id number], [place] [address]- 2546 Apr, IMMUNIZATIONS No Known Immunizations SOCIAL HISTORY Never Assessed REASON FOR VISIT Controlled Medication Refill PLAN OF CARE VITAL SIGNS MEDICATIONS Medication Instructions Dosage Frequency Start Date End Date Duration Status Concerta 54 MG Orally Once a day 1 tablet in the morning 24h Jul, 90 days Active RESULTS No Results PROCEDURES [...] History see above surgeries Hospitalization History [facility] 08[facility]16
--- OUTSIDE RECORDS SUMMARY | 2018-07-18 07:47 | XMS REPORT ---
Author Author SAGAR NAVA Organization [facility] Address [address] [place] [address] Care Team Providers Care Educational Programming Director Name Role Phone BRANDYTEZ HOYTHANY Unavailable PROBLEMS Type Condition ICD9-CM Code [id number] Code Onset Dates Condition Status SNOMED Code Problem ADD (attention deficit disorder) F90.0 Active 834060301 Problem Major depressive disorder, recurrent episode, mild F33.0 Active 112067045 Problem Allergic rhinitis due to pollen J30.1 Active 64199208 Problem Current chronic use of inhaled steroid Z79.51 Active 860522036 Problem Asthma exacerbation J45.901 Active 126726483 Problem Pure hypercholesterolemia E78.00 Active 789911248 Problem PCOS (polycystic ovarian syndrome) E28.2 Active 06729337 Problem Multiple food allergies Z91.018 Active 147088833 Problem Dental examination Z01.20 Active 886352893 Problem Uncomplicated severe persistent asthma J45.50 Active 470440639 Problem Gastroesophageal reflux disease without esophagitis K21.9 Active 246764650 Problem Migraine with aura and without status migrainosus, not intractable G43.109 Active 5626778 Problem Vitamin D deficiency E55.9 Active 12225665 Problem Acquired hypothyroidism E03.9 Active 779082127 ALLERGIES Unknown Allergies SOCIAL HISTORY No smoking Hx information available PLAN OF CARE VITAL SIGNS MEDICATIONS Unknown Medications RESULTS No Results PROCEDURES Procedure Date Ordered Related Diagnosis Body Site IMMUNOTHERAPY, 2 OR MORE INJECTIONS 2016-07-14 N/A IMMUNOTHERAPY INJECTIONS Jul 14, 2016 IMMUNIZATIONS No Known Immunizations
--- OUTSIDE RECORDS SUMMARY | 2018-07-18 07:48 | XMS REPORT ---
Author Author BRANDY SAGAR [facility] Address [address] [place] [address] Care Team Providers Care Data Modeling Specialist Name Role Phone BRANDYTEZ HOYTHANY Unavailable PROBLEMS Type Condition ICD9-CM Code GHQ88-US Code Onset Dates Condition Status SNOMED Code Problem Migraine with aura and without status migrainosus, not intractable G43.109 Active 4399816 Problem PCOS (polycystic ovarian syndrome) E28.2 Active 78205704 Problem Uncomplicated severe persistent asthma J45.50 Active 314060579 Problem Severe persistent asthma with exacerbation J45.51 Active 194684494 Problem Other elevated white blood cell (WBC) count D72.828 Active 066623839 Problem Multiple food allergies Z91.018 Active 615117054 Problem Pure hypercholesterolemia E78.00 Active 403064038 Problem Current chronic use of inhaled steroid Z79.51 Active 375589994 Problem Asthma exacerbation J45.901 Active 143074366 Problem ADD (attention deficit disorder) F90.0 Active 205823471 Problem Allergic rhinitis due to pollen J30.1 Active 86215794 Problem Vitamin D deficiency E55.9 Active 39213873 Problem Major depressive disorder, recurrent episode, mild F33.0 Active 717790572 Problem Acquired hypothyroidism E03.9 Active 791508357 Problem Gastroesophageal reflux disease without esophagitis K21.9 Active 580668729 ALLERGIES No Information ENCOUNTERS Encounter Location Date Diagnosis [facility] [id number] [address] Aug, Haemophilus influenzae infection A49.2 [facility] [address], [place] [address] Aug, Cough productive of purulent sputum R05 [facility] [id number] [address] Aug, [facility] [address] [address]- [address] 08 Aug, 2017 Pulmonary congestion R09.89 [place] [address] [address] Aug, Severe persistent asthma with exacerbation J45.51 ; Hiatal hernia K44.9 and Gastroesophageal reflux disease without esophagitis K21.[address] [address]- [address] Aug, Other elevated white blood cell (WBC) count D72.[address] [address]- 8378 Aug, Uncomplicated severe persistent asthma J45.[address] [address]64- 0938 Aug, Pure hypercholesterolemia E78.00 ; Uncomplicated severe persistent asthma J45.50 and Acquired hypothyroidism E03.[address] 40207- 9187 20 Aug, 2017 Acquired hypothyroidism E03.9 ; Pure hypercholesterolemia E78.00 and Uncomplicated severe persistent asthma J45.[address] 8[address]53- 2786 15 Aug, 2017 Allergic rhinitis due to pollen J30.[address] 08806- 7055 Aug, Allergic rhinitis due to pollen J30.1 [place] [address] [address]- [address] Aug, [place] [address] [id number] Jul, Pharyngitis, unspecified etiology J02.9 and Lymphadenopathy R59.[address] [address]347- 0121 Jul, ADD (attention deficit disorder) F90.0 [place] [id number] [place] [address] 92627- 4381 Jul, Allergic rhinitis due to pollen J30.1 [place] [address] 04723- 0045 Jul, Dental examination Z01.20 [place] [address] 82981- 4080 Jun, Cough productive of purulent sputum R05 [place] [address] 78698- 9804 Jun, Allergic rhinitis due to pollen J30.1 [place] [address] 89103- 7046 Jun, [place] [address] 95399- 0374 Jun, Allergic rhinitis due to pollen J30.1 [place] [address] 59380- 1394 Jun, Allergic rhinitis due to pollen J30.1 [place] [id number] [place] [address] 64254- 3716 May, Allergic rhinitis due to pollen J30.1 [place] [id number] [place] [address] 06806- 1915 May, Pneumonia due to Haemophilus influenzae, unspecified laterality, unspecified part of lung J14 [place] [id number] [place] [address] 99315- 8667 May, Allergic rhinitis due to pollen J30.1 [place] [id number] [place] [address] 59484- 4350 May, Other adverse food reactions, not elsewhere classified, initial encounter T78.1XXA and Pneumonia due to Haemophilus influenzae, unspecified laterality, unspecified part of lung J14 [place] [id number] [place] [address] 59934- 4170 May, Pneumonia due to Haemophilus influenzae, unspecified laterality, unspecified part of lung J14 [place] [id number] [place] [address] 12354- 7760 May, Multiple food allergies Z91.018 ; Uncomplicated severe persistent asthma J45.50 ; Cough productive of purulent sputum R05 and Uses central nervous system stimulants F15.90 [place] [id number] [place] [address] 35636- 0129 Apr, Allergic rhinitis due to pollen J30.1 [place] [id number] [place] [address] 58698- 5921 Apr, Allergic rhinitis due to pollen J30.1 [place] [address] 72257- 1593 Apr, Allergic rhinitis due to pollen J30.1 [place] [address] 47456- 2432 Apr, ADD (attention deficit disorder) F90.0 [place] [address] 15209- 7823 28 Mar, 2017 Allergic rhinitis due to pollen J30.1 [place] [id number] [place] [address] 29070- 2369 21 Mar, 2017 Encounter for immunization Z23 [place] [id number] [place] [address] 54807- 6714 19 Mar, 2017 [place] [id number] [place] [address] 83496- 2909 14 Mar, 2017 Allergic rhinitis due to pollen J30.1 [place] [id number] [place] [address] 09357- 5302 07 Mar, 2017 Allergic rhinitis due to pollen J30.1 [place] [id number] [place] [address] 33482- 4550 16 Jan, 2017 Allergic rhinitis due to pollen J30.1 [place] [address] 15571- 9329 Jan, Allergic rhinitis due to pollen J30.1 [place] [address] [place] [address] 44572- 0170 Dec, Uncomplicated severe persistent asthma J45.50 [place] [id number] [place] [address] 40709- 7630 Dec, Allergic rhinitis due to pollen J30.1 [place] [id number] [place] [address] 60367- 4348 Dec, Allergic rhinitis due to pollen J30.1 [place] [id number] [place] [address] 93051- 9069 Dec, Allergic rhinitis due to pollen J30.1 [place] [id number] [place] [address] 77707- 2244 Dec, ADD (attention deficit disorder) F90.0 [place] [id number] [place] [address] 61276- 3276 Dec, Allergic rhinitis due to pollen J30.1 [place] [id number] [place] [address] 34253- 7067 Dec, Visit for TB skin test Z11.1 and Screening for tuberculosis Z11.1 [place] [id number] [place] [address] 41519- 7886 Dec, Uncomplicated severe persistent asthma J45.50 ; Palpitations R00.2 ; Pericardial effusion (noninflammatory) I31.3 and Chest discomfort R07.89 [place] [address] [place] [address] 82995- 6337 Dec, Allergic rhinitis due to pollen J30.1 [place] [id number] [place] [address] 69750- 6878 Dec, Chronic cough R05 [place] [id number] [place] [address] 48687- 4396 Dec, [place] [id number] [place] [address] 31838- 2056 15 Dec, 2016 Allergic rhinitis due to pollen J30.1 [place] [id number] [place] [address] 78808- 4137 Dec, Allergic rhinitis due to pollen J30.1 [place] [id number] [place] [address] 70008- 2823 Dec, Chronic cough R05 [place] [address] 74488- 0873 October, Allergic rhinitis due to pollen J30.1 [place] [address] 37605- 8329 October, Allergic rhinitis due to pollen J30.1 [place] [id number] [place] [address] 96753- 2552 October, [place] [address] 34074- 4837 October, Asthma exacerbation J45.901 [place] [id number] [place] [address] 89223- 4588 October, Asthma exacerbation J45.901 and Current chronic use of inhaled steroid Z79.51 [place] [id number] [place] [address] 06319- 4831 October, Uncomplicated severe persistent asthma J45.50 [place] [id number] [place] [address] 70053- 6871 October, Allergic rhinitis due to pollen J30.1 [place] [id number] [place] [address] 30098- 4032 Oct, [place] [id number] [place] [address] 15591- 5419 Oct, Asthma exacerbation J45.901 and Sputum production R05 [place] [id number] [place] [address] 87774- 7640 Oct, Asthma exacerbation J45.901 [place] [id number] [place] [address] 03774- 0266 Oct, ADD (attention deficit disorder) F90.0 [place] [id number] [place] [address] 93202- 9317 Oct, ADD (attention deficit disorder) F90.0 [place] [address] 28212- 5647 Aug, Allergic rhinitis due to pollen J30.1 [place] [address] 89562- 3209 Aug, Atypical pneumonia J18.9 [place] [address] 67815- 4088 Aug, Allergic rhinitis due to pollen J30.1 [place] [address] 25207- 7768 Aug, Acquired hypothyroidism E03.9 [place] [address] 39070- 5042 Aug, Multiple food allergies Z91.018 ; Elevated blood pressure reading R03.0 and Anaphylaxis, subsequent encounter T78.2XXD [place] [id number] [place] [address] [id number] Aug, [place] [address] 80318- 9259 Aug, Anaphylaxis, initial encounter T78.2XXA [address] 16073- 2842 Aug, Allergic rhinitis due to pollen J30.1 [place] [id number] [place] [address] 36782- 7194 Aug, Dental examination Z01.[address] 82384- 7190 Aug, Allergic rhinitis due to pollen J30.1 [facility] [address] [place] [address] 40175- 8203 06 Aug, 2016 Acquired hypothyroidism E03.9 and Pure hypercholesterolemia E78.00 [facility] [id number] [place] [address] 36141- 8346 Aug, ADD (attention deficit disorder) F90.0 ; Acquired hypothyroidism E03.9 and Pure hypercholesterolemia E78.00 [facility] [id number] [place] [address] 16470- 2532 Aug, Asthma exacerbation J45.901 [place] [address] 25051- 3535 Jul, Allergic rhinitis due to pollen J30.1 [facility] [id number] [place] [address] 92987- 8608 Jul, Allergic rhinitis due to pollen J30.1 [facility] [id number] [place] [address] 05206- 3900 Jul, [facility] [id number] [place] [address] 07532- 8917 Jul, Allergic rhinitis due to pollen J30.1 [facility] [id number] [place] [address] 46876- 8734 Jul, Other care home (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 and ADD ( attention deficit disorder) F90.0 [facility] [address] [place] [address] 18815- 9969 Jul, Other manager long term care (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 and ADD ( attention deficit disorder) F90.0 [facility] [id number] [place] [address] 07802- 8190 Jul, [facility] [id number] [place] [address] 80466- 6081 Jun, Allergic rhinitis due to pollen J30.1 [facility] [address] [place] [address] 70440- 3784 Jun, Allergic rhinitis due to pollen J30.1 [facility] [id number] [place] [address] 83961- 9042 Jun, [place] [id number] [place] [address] 75674- 6978 May, Allergic rhinitis due to pollen J30.1 [facility] [id number] [place] [address] 06819- 5876 May, Allergic rhinitis due to pollen J30.1 [place] [id number] [place] [address] 95435- 0559 Apr, Allergic rhinitis due to pollen J30.1 [place] [id number] [place] [address] 37335- 3306 Apr, Allergic rhinitis due to pollen J30.1 [place] [address] 37148- 8821 Apr, Encounter for immunization Z23 [place] [address] 32454- 3853 Apr, [place] [id number] [place] [address] 09969- 3616 Mar, Allergic rhinitis due to pollen J30.1 [place] [id number] [place] [address] 51873- 6464 Mar, Multiple allergies Z88.9 [place] [id number] [place] [address] 99210- 4288 Mar, Candidal vaginitis B37.3 [place] [id number] [place] [address] 17770- 7010 08 Mar, 2016 Allergic rhinitis due to pollen J30.1 [place] [id number] [place] [address] 97234- 4816 Jan, Asthma exacerbation J45.901 ; Fatigue, unspecified type R53.83 and Community acquired pneumonia J18.9 [facility] [address] [id number] Jan, Encounter for dental examination Z01.20 [facility] [address], [place] [address]- 3775 Jan, Allergic rhinitis due to pollen J30.1 [facility] [address] [place] [address] 35302- 3010 Dec, Allergic rhinitis due to pollen J30.1 [facility] [address], [place] [address]- 2314 Dec, [facility] [id number] [place] [address] 20033- 9849 Dec, Allergic rhinitis due to pollen J30.1 [facility] [address], [place] [address]- 6507 Dec, [facility] [address], [place] [address]- 4188 Dec, [facility] [address] [place] [address] 05788- 5257 Dec, [facility] [address], [place] [address]- 1006 Dec, Allergic rhinitis due to pollen J30.1 [facility] [address], [place] [address]- 7968 Dec, [facility] [address], [place] [address]- 0288 Dec, [facility] [id number] [place] [address] 29759- 4507 Dec, Allergic rhinitis due to pollen J30.1 [facility] [address] [address]- 7224 October, Allergic rhinitis due to pollen J30.1 [facility] [id number] [address]- 9306 October, Allergic rhinitis due to pollen J30.1 [facility] [id number] [place] [address] 32330- 6623 October, [facility] [id number] [place] [address] 97184- 7232 October, [place] [id number] [place] [address] 30183- 0477 October, ADD (attention deficit disorder) F90.0 ; Major depressive disorder, recurrent episode, mild F33.0 and Uncomplicated severe persistent asthma J45.50 [place] [id number] [place] [address] 11025- 7658 Oct, Allergic rhinitis due to pollen J30.1 [place] [id number] [place] [address] 53618- 2657 Oct, ADD (attention deficit disorder) F90.0 [place] [id number] [place] [address] 46729- 5652 Oct, Allergic rhinitis due to pollen 477.0 [place] [id number] [place] [address] 42683- 3776 Aug, Allergic rhinitis due to pollen 477.0 [place] [address] [place] [address] 58039- 2371 Aug, 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 [place] [id number] [place] [address] 70919- 8717 Aug, [place] [id number] [place] [address] 85704- 7984 Aug, Allergic rhinitis due to pollen 477.0 [place] [address] [place] [address] 83775- 9125 Aug, Allergic rhinitis due to pollen 477.0 [place] [id number] [place] [address] 45733- 5084 Aug, Allergic rhinitis due to pollen 477.0 [facility] [address] [place] [address] 00470- 2670 Aug, Exposure to influenza Z20.828 [facility] [address] [place] [address] [id number] 19 Aug, 2015 Encounter for dental examination and cleaning without abnormal findings Z01.20 [place] [id number] [place] [address] 15166- 6420 Aug, Allergic rhinitis due to pollen J30.1 [place] [address] 46474- 2338 Aug, [place] [address] 83726- 3842 Aug, 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 [place] [address] 51238- 1082 Jul, [place] [address] 88557- 9256 Jul, Allergic rhinitis due to pollen 477.0 [place] [id number] [place] [address] 71053- 6721 Jul, [place] [id number] [place] [address] 78437- 6973 Jul, Allergic rhinitis due to pollen 477.0 [place] [id number] [place] [address] 86749- 8012 Jun, ADD (attention deficit disorder) F90.0 ; Acquired hypothyroidism E03.9 ; PCOS (polycystic ovarian syndrome) E28.2 ; Polyarthralgia M25.50 and On stimulant medication Z79.899 [place] [id number] [place] [address] 18643- 5012 16 Apr, 2015 Encounter for immunization Z23 [place] [address] 24277- 4518 16 Mar, 2015 Allergic rhinitis due to pollen 477.0 [facility] [address] [place] [address] 56099- 2525 Mar, Influenza vaccine administered V04.81 [facility] [address] [place] [address] 68323- 3497 Mar, [facility] [id number] [place] [address] 35391- 4324 Jan, Allergic rhinitis due to pollen 477.0 [facility] [id number] [place] [address] 18763- 0006 Jan, Allergic rhinitis due to pollen 477.0 [facility] [id number] [place] [address] 98967- 1849 Jan, Allergic rhinitis due to pollen 477.0 [facility] [id number] [place] [address] [id number] Jan, Dental examination V72.2 [facility] [id number] [place] [address] 81226- 0520 Dec, Allergic rhinitis due to pollen 477.0 [facility] [address] [place] [address] 74009- 8158 October, [facility] [address] [place] [address] 27155- 2887 Oct, [facility] [id number] [place] [address] 44635- 3829 Oct, [facility] [address] [place] [address] 51943- 3840 Aug, [facility] [id number] [place] [address] 15860- 1711 Aug, [facility] [address] [address]- 1431 Aug, [facility] [id number] [place] [address]- 3023 Aug, [facility] [place] [facility] [address] [id number] [place] [address]- 0742 Aug, [facility] [place] [facility] [address] [id number] [place] [address]- 0694 Aug, [facility] [place] [facility] [address] [id number] [place] [address]- 6199 Aug, [facility] [place] [facility] [address] [id number] [place] [address]- 0131 Aug, [facility] [place] [facility] [address] [id number] [place] [address]- 9642 Jul, [facility] [place] [facility] [address] [id number] [place] [address]- 1760 Jul, [facility] [place] [facility] [address] [facility] [id number] [place] [address]- 7639 Jul, [facility] [place] [facility] [address] [id number] [place] [address]- 4509 Jul, [facility] [place] [facility] [address] [facility] [id number] [place] [address]- 6217 Jul, [facility] [place] [facility] [address] [facility] [id number] [place] [address]- 9366 Jul, [facility] [place] [facility] [address] [id number] [place] [address]- 1205 Jul, [facility] [place] [facility] [address] [id number] [place] [address]- 7570 Jul, [facility] [place] [facility] [address] [id number] [place] [address]- 2053 Jul, [facility] [place] [facility] [address] [id number] [place] [address]- 0766 Jul, [facility] [place] [facility] [address] [id number] [place] [address]- 9274 Jul, [facility] [place] [facility] [address] [id number] [place] [address]- 5184 Jun, [facility] [place] [facility] [address] [id number] [place] 4816 Jun, [facility] [place] [facility] [address] [id number] [place] 2776 Jun, [facility] [place] [facility] [address] [id number] [place] [address]- 1476 Jun, [facility] [place] [facility] [address] [id number] [id number] [address] Jun, [facility] [place] [facility] [address] [id number] [place] [address] Jun, [facility] [place] [facility] [address] [id number] [place] [address] May, [facility] [place] [facility] [address] [id number] [place] [address] May, [facility] [place] [facility] [address] [id number] [place] [address] May, [facility] [place] [facility] [address] [id number] [place] [address] May, [facility] [place] [facility] [address] [id number], [place] [address] May, [facility] [place] [facility] [address] [id number], [place] [address] May, [facility] [place] [facility] [address] [id number] [id number] [address] Apr, [facility] [place] [facility] [address] [id number] [place] [address] Apr, [facility] [place] [facility] [address] [id number], [place] [address] Mar, [facility] [place] [facility] [address] [id number], [place] [address] Mar, [facility] [place] [facility] [address] [id number] [place] [address] Mar, [facility] [place] [facility] [address] [id number] [place] [address] Mar, [facility] [place] [facility] [address] [id number] [place] [address] Mar, [facility] [place] [facility] [address] [id number] [place] [address] Mar, [facility] [place] [facility] [address] [id number] [place] [address] Jan, [facility] [place] [facility] [address] [id number] [place] [address] Jan, [facility] [place] [facility] [address] [id number] [place] [address] Jan, [facility] [place] [facility] [address] [id number] [place] [address] Jan, [facility] [place] [facility] [address] [id number] [place] [address] Jan, [facility] [place] [facility] [address] [id number] [place] [address] Jan, [facility] [place] [facility] [address] [id number] [place] [address] Dec, [facility] [place] [facility] [address] [id number] [place] [address] Dec, [facility] [place] [facility] [address] [id number] [place] [address] Dec, [facility] [place] [facility] [address] [id number] [place] [address] Dec, [facility] [place] [facility] [address] [id number] [place] [address] Dec, [facility] [place] [facility] [address] [id number] [place] [address] Dec, [facility] [place] [facility] [address] [id number] [place] [address] Dec, [facility] [place] [facility] [address] [id number] [place] [address] Dec, [facility] [place] [facility] [address] [id number] [place] [address] Dec, [facility] [place] [facility] [address] [id number] [place] [address] 94[address] Dec, [facility] [place] [facility] [address] [id number] [place] [address] 1677 Dec, [facility] [place] [facility] [address] [id number] [place] [address] 9537 Dec, [facility] [place] [facility] [address] [id number] [place] [address]- 27[address] Dec, [facility] [place] [facility] [address] [id number] [place] [address]- 0739 Dec, [facility] [place] [facility] [address] [id number] [place] [address] 8573 Dec, [facility] [place] [facility] [address] [id number] [place] [address]- 7634 Dec, [facility] [place] [facility] [address] [id number] [place] [address]- 5490 October, [facility] [place] [facility] [address] [id number] [place] [address] 8674 October, [facility] [place] [facility] [address] [id number] [place] [address] October, [facility] [place] [facility] [address] [id number] [place] [address]388 October, [facility] [place] [facility] [address] [id number] [place] [address] October, [facility] [place] [facility] [address] [id number] [place] [address] 2710 October, [facility] [place] [facility] [address] [id number] [place] [address]- 7663 Oct, [facility] [place] [facility] [address] [id number] [place] [address]- [address]304 Oct, [facility] [place] [facility] [address] [id number] [place] [address] 4941 Oct, [facility] [place] [facility] [address] [id number] [place] [address]- 0384 Oct, [facility] [place] [facility] [address] [id number] [place] [address]- 3579 Oct, [facility] [place] [facility] [address] [id number] [place] [address]- 6832 Oct, [facility] [place] [facility] [address] [id number] [place] [address]- 8098 Aug, [facility] [place] [facility] [address] [id number] [place] [address]- [address]355 Aug, [facility] [place] [facility] [address] [id number] [place] [address]- 7134 Aug, [facility] [place] [facility] [address] [id number] [place] [address]- 3726 Aug, [facility] [place] [facility] [address] [id number] [address] Jul, [facility] [place] [facility] [address] [id number] [place] [address]- 1107 Jul, [facility] [place] [facility] [address] [id number] [place] [address] 2022 Jul, [facility] [place] [facility] [address] [id number] [place] [address]- 2343 Jul, [facility] [place] [facility] [address] [id number] [place] [address]- 7585 Jun, [facility] [address] [id number] [place] [address]- 3112 Jun, [facility] [place] [facility] [address] [id number] [place] [address] Jun, [facility] [address] [id number] [place] [address]- 4467 Jun, [facility] [place] [facility] [address] [id number] [place] [address] 8748 Jun, [facility] [address] [id number] [place] [address]- 1735 Jun, [facility] [address] [id number] [place] [address]235 Jun, [facility] [address] [id number] [place] [address] Jun, [facility] [address] [id number] [place] [address]- 9872 Jun, [facility] [place] [facility] [address] [id number] [place] [address]- 4130 Jun, [facility] [address] [facility] [id number] [place] [address]- [address] 04 Jun, 2013 [facility] [place] [facility] [address] [id number] [place] [address] 3827 May, [facility] [place] [facility] [address] [id number] [place] [address]- 5546 May, [facility] [place] [facility] [address] [id number] [place] [address]- 2746 May, [facility] [place] [facility] [address] [id number] [place] [address] May, [facility] [place] [facility] [address] [id number] [place] [address]- 3825 May, [facility] [place] [facility] [address] [id number] [place] [address]- 5379 May, [facility] [place] [facility] [address] [id number] [place] [address] May, [facility] [place] [facility] [address] [id number] [place] [address]- 6989 Apr, [facility] [place] [facility] [address] [id number] [place] [address]- 3617 Apr, [facility] [place] [facility] [address] [id number] [place] [address]- 5278 Apr, [facility] [place] [facility] [address] [id number] [place] [address]- 3255 Apr, [facility] [place] [facility] [address] [id number] [place] [address]- 4341 27 Mar, 2013 [facility] [place] [facility] [address] [id number] [place] [address]- 4889 Mar, [facility] [place] [facility] [address] [id number] [place] [address]- 0321 Mar, [facility] [place] [facility] [address] [id number] [place] [address]- 5248 23 Mar, 2013 [facility] [place] [facility] [address] [id number] [place] [address]- 2476 Mar, [facility] [place] [facility] [address] [id number] [place] [address]- 6250 Mar, [facility] [place] [facility] [address] [id number] [place] [address]- 8480 Jan, [facility] [place] [facility] [address] [id number] [place] [address]- 4499 Jan, [facility] [place] [facility] [address] [id number] [place] [address]- 2397 Jan, [facility] [place] [facility] [address] [id number] [place] [address]- 3962 Jan, [facility] [address] [id number] [place] [address] Jan, [facility] [place] [facility] [address] [id number] [place] [address]- 8419 Dec, [facility] [place] [facility] [address] [id number] [place] [address]- 7832 Dec, [facility] [place] [facility] [address] [id number] [place] [address]- 6088 Dec, [facility] [place] [facility] [address] [id number] [place] [address]69 Dec, [facility] [place] [facility] [address] [id number] [place] [address]- 8350 Dec, [facility] [place] [facility] [address] [id number] [place] [address]- 8265 Dec, [facility] [place] [facility] [address] [id number] [place] [address]- 5574 Dec, [facility] [place] [facility] [address] [id number] [place] [address]- 5142 Dec, [facility] [place] [facility] [address] [id number] [place] [address]- 9064 October, [facility] [place] [facility] [address] [id number] [place] [address]- 3137 October, [facility] [place] [facility] [address] [id number] [place] [address]- 1548 October, [facility] [place] [facility] [address] [id number] [place] [address] 24 Oct, 2012 [facility] [place] [facility] [address] [id number] [place] [address] Oct, [facility] [place] [facility] [address] [id number] [place] [address] 17 Oct, 2012 [facility] [place] [facility] [address] [id number] [place] [address]- 9769 Oct, [facility] [place] [facility] [address] [id number] [place] [address]- 6306 Aug, [facility] [place] [facility] [address] [id number] [place] [address]- 1106 Aug, [facility] [place] [facility] [address] [id number] [place] [address]- 1515 Aug, [facility] [place] [facility] [address] [id number] [place] [address]- 7721 Jul, [facility] [place] [facility] [address] [id number] [place] [address]- 8079 May, [facility] [place] [facility] [address] [id number] [place] [address]- 9767 May, [facility] [place] [facility] [address] [id number] [place] [address]- 8297 Apr, [facility] [address] [id number] [place] [address]- 3067 Apr, [facility] [place] [facility] [address] [id number] [place] [address]- 0885 Apr, [facility] [address] [id number] [place] [address]- 1843 Apr, [facility] [place] [facility] [address] [id number] [place] [address]- 7599 Apr, [facility] [place] [facility] [address] [id number] [place] [address]- 5623 Apr, [facility] [place] [facility] [address] [id number] [place] [address]29 Apr, [facility] [place] [facility] [address] [id number] [place] [address]- 6712 Apr, [facility] [place] [facility] [address] [id number] [place] [address]- 9009 Apr, [facility] [place] [facility] [address] [id number] [place] [address]- 6852 Apr, [facility] [place] [facility] [address] [id number] [place] [address]- 9721 Apr, [facility] [place] [facility] [address] [id number] [place] [address]- 7932 Apr, [facility] [place] [facility] [address] [id number] [place] [address]- 9067 Mar, [facility] [place] [facility] [address] [id number] [place] [address]- 7609 Jan, [facility] [place] [facility] [address] [id number] [place] [address]- 4276 Dec, [facility] [place] [facility] [address] [id number] [place] [address]- 5533 October, [facility] [place] [facility] [address] [id number] [place] [address]- 4312 Oct, [facility] [place] [facility] [address] [id number] [place] [address]- 1703 Oct, [facility] [place] [facility] [address] [id number] [place] [address]- 2882 Oct, [facility] [place] [facility] [address] [id number] [place] [address]- 3107 Aug, [facility] [place] [facility] [address] [id number] [place] [address]- 0909 Aug, [facility] [place] [facility] [address] [id number] [place] [address]- 8166 Aug, [facility] [place] [facility] [address] [id number] [place] [address]- 0596 16 Aug, 2011 [facility] [place] [facility] [address] [id number] [place] [address]- 7160 15 Aug, 2011 [facility] [place] [facility] [address] [facility] [id number], [place] [address]- 2806 02 Aug, 2011 [facility] [id number], [place] [address]11 Jun, [facility] [id number], [place] [address]- 6683 Apr, [facility] [id number], [place] [address]- 2790 Jun, [facility] [id number], [place] [address]- 2545 Jun, [facility] [id number], [place] [address]- 8659 May, [facility] [id number], [place] [address]- 7372 May, [facility] [id number], [place] [address]- 4315 Apr, [facility] [address] [id number] [address]83 Apr, IMMUNIZATIONS No Known Immunizations SOCIAL HISTORY Never Assessed REASON FOR VISIT Allergy injection(s) patricia keith PLAN OF CARE VITAL SIGNS MEDICATIONS Unknown Medications RESULTS No Results PROCEDURES Procedure Date Ordered Result Body Site IMMUNOTHERAPY, 2 OR MORE INJECTIONS 2017-02-02 N/A IMMUNOTHERAPY INJECTIONS Feb 02, 2017 INSTRUCTIONS MEDICATIONS ADMINISTERED No Known Medications [...] History see above surgeries Hospitalization History Anaphylactic shock-[facility] 08/23/16
--- OUTSIDE RECORDS SUMMARY | 2018-07-18 07:48 | XMS REPORT ---
Author BALJEET Nolsaco [employer] Address Unknown Phone Unavailable Care Team Providers Care [employer] Name Role Phone BALJEET WILKINS CP Unavailable Allergies No Known Allergies Problems Problem Type Condition Code Onset Dates Condition Status Problem Major depressive disorder, recurrent episode, mild F33.0 Active Assessment Allergic rhinitis due to pollen J30.1 Active Problem ADD (attention deficit disorder) F90.0 [...] Coding System Code Date IMMUNOTHERAPY INJECTIONS CPT-4 06792 October 15, 2015 Results Name Result Date Reference Range Unit Abnormality Flag IMMUNOTHERAPY, 2 OR MORE INJECTIONS Summary Purpose eClinical[employer] Submission
--- OUTSIDE RECORDS SUMMARY | 2018-07-18 07:49 | XMS REPORT ---
Author Author MIRTHA OJEDA [facility] Address [address] [place] [address] Care Team Providers Care Retail Clerk Name Role Phone MIRTHA OJEDA Unavailable PROBLEMS Type Condition ICD9-CM Code [id number] Code Onset Dates Condition Status SNOMED Code Problem Migraine with aura and without status migrainosus, not intractable G43.109 Active 5315066 Problem PCOS (polycystic ovarian syndrome) E28.2 Active 94795414 Problem Uncomplicated severe persistent asthma J45.50 Active 250388206 Problem Severe persistent asthma with exacerbation J45.51 Active 136770166 Problem Other elevated white blood cell (WBC) count D72.828 Active 870489276 Problem Multiple food allergies Z91.018 Active 331325076 Problem Pure hypercholesterolemia E78.00 Active 572703496 Problem Current chronic use of inhaled steroid Z79.51 Active 781627636 Problem Asthma exacerbation J45.901 Active 205935903 Problem ADD (attention deficit disorder) F90.0 Active 933493862 Problem Allergic rhinitis due to pollen J30.1 Active 52480276 Problem Vitamin D deficiency E55.9 Active 51571654 Problem Major depressive disorder, recurrent episode, mild F33.0 Active 201368370 Problem Acquired hypothyroidism E03.9 Active 574133938 Problem Gastroesophageal reflux disease without esophagitis K21.9 Active 282469522 ALLERGIES Substance Reaction Event Type Date Status Zithromax Unknown Drug Allergy Jul, Active Qvar shortness of breath Drug Allergy Jul, Active Ceftin Unknown Drug Allergy Jul, Active Morphine Patient is a fast metabolizer and medication is not effective Drug Allergy Jul, Active FLUORIDE VARNISH Unknown Non Drug Allergy Jul, Active [place] Unknown Non Drug Allergy Jul, Active Soybeans Unknown Non Drug Allergy Jul, Active Wheat Unknown Non Drug Allergy Jul, Active Malt Extract Unknown Non Drug Allergy Jul, Active Asprin Unknown Non Drug Allergy Jul, Active ENCOUNTERS Encounter Location Date Diagnosis [facility] [id number] [place] [address] 73289- 9714 Dec, [facility] [id number] [place] [address] 33426- 0954 October, Allergic rhinitis due to pollen J30.1 [facility] [id number] [place] [address] 12357- 1627 October, Allergic rhinitis due to pollen J30.1 [facility] [id number] [place] [address] 66016- 9528 Oct, [facility] [address] 62164- 5654 Oct, Allergic rhinitis due to pollen J30.1 [facility] [id number] [place] [address] 00043- 3366 Oct, [facility] [id number] [place] [address] 69701- 1505 Oct, Allergic rhinitis due to pollen J30.1 [facility] [id number] [place] [address] 19616- 0680 Oct, Severe persistent asthma with exacerbation J45.51 and Pneumonia due to Haemophilus influenzae, unspecified laterality, unspecified part of lung J14 [place] [address] [place] [address] 26844- 0793 Oct, ADD (attention deficit disorder) F90.0 [facility] [id number] [place] [address] 98230- 1529 Aug, Haemophilus influenzae infection A49.2 [place] [id number] [place] [address] 70080- 8475 09 Aug, 2017 Cough productive of purulent sputum R05 [place] [id number] [place] [address] 00044- 5240 Aug, [facility] [id number] [place] [address] 11910- 0012 Aug, Pulmonary congestion R09.89 [place] [address] 52496- 1120 Aug, Severe persistent asthma with exacerbation J45.51 ; Hiatal hernia K44.9 and Gastroesophageal reflux disease without esophagitis K21.[address] 79827- 8671 Aug, Other elevated white blood cell (WBC) count D72.828 [place] [address] 156525- 9866 Aug, Uncomplicated severe persistent asthma J45.50 [place] [address]3085- 585 Aug, Pure hypercholesterolemia E78.00 ; Uncomplicated severe persistent asthma J45.50 and Acquired hypothyroidism E03.[address] 33236- 1804 Aug, Acquired hypothyroidism E03.9 ; Pure hypercholesterolemia E78.00 and Uncomplicated severe persistent asthma J45.[address] 40477- 7658 15 Aug, 2017 Allergic rhinitis due to pollen J30.1 [place] [address] 86732- 7486 Aug, Allergic rhinitis due to pollen J30.1 [place] [address] 96117- 1984 Aug, [facility] [address] [id number] Jul, Pharyngitis, unspecified etiology J02.9 and Lymphadenopathy R59.1 [place] [address] 58546- 1909 Jul, ADD (attention deficit disorder) F90.[address] 49268- 2671 Jul, Allergic rhinitis due to pollen J30.1 [place] [address] [place] [address] 70304- 0798 Jul, Dental examination Z01.20 [place] [id number] [place] [address] 59776- 0418 Jun, Cough productive of purulent sputum R05 [place] [id number] [place] [address] 96429- 2283 Jun, Allergic rhinitis due to pollen J30.1 [place] [id number] [place] [address] 00719- 7135 Jun, [place] [address] 53229- 4420 Jun, Allergic rhinitis due to pollen J30.1 [place] [address] 08296- 8740 Jun, Allergic rhinitis due to pollen J30.1 [place] [id number] [place] [address] 75461- 6543 May, Allergic rhinitis due to pollen J30.1 [place] [id number] [place] [address] 72829- 0658 May, Pneumonia due to Haemophilus influenzae, unspecified laterality, unspecified part of lung J14 [place] [id number] [place] [address] 39073- 7793 May, Allergic rhinitis due to pollen J30.1 [place] [address] [place] [address] 41669- 3169 May, Other adverse food reactions, not elsewhere classified, initial encounter T78.1XXA and Pneumonia due to Haemophilus influenzae, unspecified laterality, unspecified part of lung J14 [place] [address] [place] [address] 80326- 8389 May, Pneumonia due to Haemophilus influenzae, unspecified laterality, unspecified part of lung J14 [place] [id number] [place] [address] 75054- 7033 May, Multiple food allergies Z91.018 ; Uncomplicated severe persistent asthma J45.50 ; Cough productive of purulent sputum R05 and Uses central nervous system stimulants F15.90 [place] [address] 11988- 8110 Apr, Allergic rhinitis due to pollen J30.1 [place] [address] 70464- 0311 Apr, Allergic rhinitis due to pollen J30.1 [place] [address] 00091- 9147 Apr, Allergic rhinitis due to pollen J30.1 [place] [address] 79592- 2509 Apr, ADD (attention deficit disorder) F90.0 [place] [address] 43038- 2332 28 Mar, 2017 Allergic rhinitis due to pollen J30.1 [place] [address] 42049- 5367 21 Mar, 2017 Encounter for immunization Z23 [place] [address] 97897- 1255 19 Mar, 2017 [place] [address] 93507- 3213 14 Mar, 2017 Allergic rhinitis due to pollen J30.1 [place] [id number] [place] [address] 56004- 1661 07 Mar, 2017 Allergic rhinitis due to pollen J30.1 [place] [id number] [place] [address] 33572- 1301 16 Jan, 2017 Allergic rhinitis due to pollen J30.1 [place] [address] 65363- 1816 Jan, Allergic rhinitis due to pollen J30.1 [place] [id number] [place] [address] 69073- 9449 Dec, Uncomplicated severe persistent asthma J45.50 [place] [id number] [place] [address] 05594- 5130 Dec, Allergic rhinitis due to pollen J30.1 [place] [id number] [place] [address] 23715- 1377 Dec, Allergic rhinitis due to pollen J30.1 [place] [id number] [place] [address] 13126- 6286 Dec, Allergic rhinitis due to pollen J30.1 [place] [id number] [place] [address] 74633- 8016 Dec, ADD (attention deficit disorder) F90.[address] 60845- 4728 Dec, Allergic rhinitis due to pollen J30.1 [place] [id number] [place] [address] 63838- 9780 Dec, Visit for TB skin test Z11.1 and Screening for tuberculosis Z11.1 [place] [id number] [place] [address] 48381- 3094 Dec, Uncomplicated severe persistent asthma J45.50 ; Palpitations R00.2 ; Pericardial effusion (noninflammatory) I31.3 and Chest discomfort R07.89 [place] [id number] [place] [address] 33631- 9520 Dec, Allergic rhinitis due to pollen J30.1 [place] [id number] [place] [address] 87420- 1708 Dec, Chronic cough R05 [place] [id number] [place] [address] 99436- 5971 Dec, [place] [id number] [place] [address] 42203- 3399 Dec, Allergic rhinitis due to pollen J30.1 [place] [address] [place] [address] 92834- 0711 Dec, Allergic rhinitis due to pollen J30.1 [place] [id number] [place] [address] 90883- 4241 Dec, Chronic cough R05 [place] [id number] [place] [address] 12733- 8536 October, Allergic rhinitis due to pollen J30.1 [place] [id number] [place] [address] 71813- 8663 October, Allergic rhinitis due to pollen J30.1 [place] [id number] [place] [address] 52468- 9752 October, [place] [id number] [place] [address] 19532- 4128 October, Asthma exacerbation J45.901 [place] [id number] [place] [address] 38665- 1321 October, Asthma exacerbation J45.901 and Current chronic use of inhaled steroid Z79.51 [place] [id number] [place] [address] 57789- 2033 October, Uncomplicated severe persistent asthma J45.50 [place] [id number] [place] [address] 22737- 0649 October, Allergic rhinitis due to pollen J30.1 [place] [id number] [place] [address] 35567- 6794 Oct, [place] [id number] [place] [address] 58192- 2654 Oct, Asthma exacerbation J45.901 and Sputum production R05 [place] [id number] [place] [address] 77121- 1206 Oct, Asthma exacerbation J45.901 [place] [id number] [place] [address] 95939- 1416 Oct, ADD (attention deficit disorder) F90.0 [place] [address] 08931- 8319 Oct, ADD (attention deficit disorder) F90.0 [place] [address] 89629- 8212 Aug, Allergic rhinitis due to pollen J30.1 [place] [id number] [place] [address] 13771- 5109 Aug, Atypical pneumonia J18.9 [place] [address] 60390- 1427 Aug, Allergic rhinitis due to pollen J30.1 [place] [address] 58002- 4060 Aug, Acquired hypothyroidism E03.9 [place] [address] 51478- 2948 Aug, Multiple food allergies Z91.018 ; Elevated blood pressure reading R03.0 and Anaphylaxis, subsequent encounter T78.2XXD [place] [address] [id number] Aug, [place] [address] 84690- 0423 Aug, Anaphylaxis, initial encounter T78.2XXA [place] [address] 83028- 0748 Aug, Allergic rhinitis due to pollen J30.1 [place] [address] 86068- 6986 Aug, Dental examination Z01.20 [place] [address] 87116- 8592 Aug, Allergic rhinitis due to pollen J30.1 [place] [id number] [place] [address] 06710- 3261 06 Aug, 2016 Acquired hypothyroidism E03.9 and Pure hypercholesterolemia E78.00 [place] [address] 84042- 5492 03 Aug, 2016 ADD (attention deficit disorder) F90.0 ; Acquired hypothyroidism E03.9 and Pure hypercholesterolemia E78.00 [place] [address] 73683- 6319 Aug, Asthma exacerbation J45.901 [place] [address] 11674- 8812 Jul, Allergic rhinitis due to pollen J30.1 [place] [id number] [place] [address] 78740- 7749 Jul, Allergic rhinitis due to pollen J30.1 [place] [id number] [place] [address] 55376- 1224 Jul, [place] [id number] [place] [address] 47962- 8340 Jul, Allergic rhinitis due to pollen J30.1 [place] [id number] [place] [address] 89196- 7223 Jul, 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 and ADD ( attention deficit disorder) F90.0 [place] [id number] [place] [address] 90250- 2305 Jul, Other skilled nursing (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 and ADD ( attention deficit disorder) F90.0 [place] [id number] [place] [address] 53677- 2778 Jul, [place] [id number] [place] [address] 45086- 7821 Jun, Allergic rhinitis due to pollen J30.1 [place] [id number] [place] [address] 56677- 0711 Jun, Allergic rhinitis due to pollen J30.1 [place] [id number] [place] [address] 54350- 7702 Jun, [facility] [id number] [place] [address] 72550- 7461 May, Allergic rhinitis due to pollen J30.1 [place] [address] 09987- 6186 May, Allergic rhinitis due to pollen J30.1 [place] [id number] [place] [address] 78029- 1978 Apr, Allergic rhinitis due to pollen J30.1 [place] [id number] [place] [address] 01578- 7467 Apr, Allergic rhinitis due to pollen J30.1 [place] [id number] [place] [address] 53296- 5656 Apr, Encounter for immunization Z23 [place] [id number] [place] [address] 29088- 0217 Apr, [place] [id number] [place] [address] 57227- 4136 Mar, Allergic rhinitis due to pollen J30.1 [place] [id number] [place] [address] 35522- 0819 Mar, Multiple allergies Z88.9 [place] [id number] [place] [address] 48850- 0111 12 Mar, 2016 Candidal vaginitis B37.3 [place] [id number] [place] [address] 11849- 0241 08 Mar, 2016 Allergic rhinitis due to pollen J30.1 [place] [id number] [place] [address] 84195- 1979 Jan, Asthma exacerbation J45.901 ; Fatigue, unspecified type R53.83 and Community acquired pneumonia J18.9 [facility] [id number] [id number] Jan, Encounter for dental examination Z01.20 [facility] [address] [place] [address] 50489- 6676 Jan, Allergic rhinitis due to pollen J30.1 [facility] [address] [address]- 4715 Dec, Allergic rhinitis due to pollen J30.1 [facility] [address] [address]- 4261 Dec, [facility] [id number] [place] [address] 42627- 3938 Dec, Allergic rhinitis due to pollen J30.1 [facility] [address] [address]- 3115 Dec, [facility] [address] [place] [address] 57501- 2692 Dec, [facility] [address] [place] [address] 64400- 4404 Dec, [facility] [address] [place] [address] 81626- 9353 Dec, Allergic rhinitis due to pollen J30.1 [facility] [address] [address]- 8664 Dec, [facility] [address] [address]- 0112 Dec, [facility] [address] [address]- 8597 Dec, Allergic rhinitis due to pollen J30.1 [facility] [address] [address]- 5152 October, Allergic rhinitis due to pollen J30.1 [facility] [address] [address]- 8906 October, Allergic rhinitis due to pollen J30.1 [facility] [address] [place] [address] 21010- 8294 October, [facility] [id number] [place] [address] 80799- 9310 October, [facility] [id number] [place] [address] 00321- 4696 October, ADD (attention deficit disorder) F90.0 ; Major depressive disorder, recurrent episode, mild F33.0 and Uncomplicated severe persistent asthma J45.50 [facility] [id number] [place] [address] 17648- 5731 Oct, Allergic rhinitis due to pollen J30.1 [facility] [id number] [place] [address] 18190- 6445 Oct, ADD (attention deficit disorder) F90.0 [facility] [id number] [place] [address] 04820- 8699 Oct, Allergic rhinitis due to pollen 477.0 [facility] [id number] [place] [address] 96576- 7028 Aug, Allergic rhinitis due to pollen 477.0 [facility] [id number] [place] [address] 61696- 1659 Aug, 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 [facility] [id number] [place] [address] 15223- 4908 Aug, [facility] [id number] [place] [address] 44332- 0086 Aug, Allergic rhinitis due to pollen 477.0 [facility] [id number] [place] [address] 31168- 2265 Aug, Allergic rhinitis due to pollen 477.0 [facility] [id number] [place] [address] 34001- 7895 Aug, Allergic rhinitis due to pollen 477.0 [facility] [id number] [place] [address] 90158- 2014 Aug, Exposure to influenza Z20.828 [facility] [id number] [place] [address] [id number] Aug, Encounter for dental examination and cleaning without abnormal findings Z01.20 [place] [address] 65560- 1265 Aug, Allergic rhinitis due to pollen J30.1 [place] [address] 00925- 5330 Aug, [place] [address] 11414- 1091 Aug, 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 19609- 9347 Jul, [place] [address] 57583- 1523 Jul, Allergic rhinitis due to pollen 477.0 [place] [address] 25700- 6454 Jul, [place] [id number] [place] [address] 40733- 6485 Jul, Allergic rhinitis due to pollen 477.0 [place] [id number] [place] [address] 82310- 1458 Jun, ADD (attention deficit disorder) F90.0 ; Acquired hypothyroidism E03.9 ; PCOS (polycystic ovarian syndrome) E28.2 ; Polyarthralgia M25.50 and On stimulant medication Z79.899 [place] [id number] [place] [address] 92062- 6601 Apr, Encounter for immunization Z23 [place] [address] 65598- 7018 16 Mar, 2015 Allergic rhinitis due to pollen 477.0 [facility] [address] [address]- 6541 14 Mar, 2015 Influenza vaccine administered V04.81 [facility] [address] 0166 Mar, [facility] [address] [place] [address] 40279- 0147 Jan, Allergic rhinitis due to pollen 477.0 [facility] [address] [place] [address] 33546- 3105 Jan, Allergic rhinitis due to pollen 477.0 [facility] [id number] [place] [address] 49201- 2211 Jan, Allergic rhinitis due to pollen 477.0 [facility] [address] [place] [address] [id number] Jan, Dental examination V72.2 [facility] [id number] [place] [address] 10187- 8821 Dec, Allergic rhinitis due to pollen 477.0 [facility] [address] [place] [address] 89453- 5554 October, [facility] [address] [address]- 9356 Oct, [facility] [address] [address]- 0594 Oct, [facility] [address] [place] [address] 90438- 8041 Aug, [facility] [id number] [place] [address] 65405- 4780 Aug, [facility] [address] [address]- 0271 05 Aug, 2014 [facility] [address] [place] [address] 80501- 3121 Aug, [facility] [place] [facility] [address] [id number] [place] [address]- 1523 Aug, [facility] [place] [facility] [address] [id number] [place] [address]- 4756 Aug, [facility] [place] [facility] [address] [id number] [place] [address]- 1632 Aug, [facility] [place] [facility] [address] [id number] [place] [address] Aug, [facility] [place] [facility] [address] [id number] [place] [address] Jul, [facility] [place] [facility] [address] [id number] [place] [address] Jul, [facility] [place] [facility] [address] [id number] [place] [address] Jul, [facility] [place] [facility] [address] [id number] [place] [address] Jul, [facility] [place] [facility] [address] [id number] [place] [address] Jul, [facility] [place] [facility] [address] [id number] [place] [address] Jul, [facility] [place] [facility] [address] [id number], [place] [address] Jul, [facility] [place] [facility] [address] [id number], [place] [address] Jul, [facility] [place] [facility] [address] [id number] [place] [address] Jul, [facility] [place] [facility] [address] [id number] [place] [address] Jul, [facility] [place] [facility] [address] [id number] [place] [address] Jul, [facility] [place] [facility] [address] [id number] [place] [address] Jun, [facility] [place] [facility] [address] [id number] [place] [address] Jun, [facility] [place] [facility] [address] [id number] [place] [address] Jun, [facility] [place] [facility] [address] [id number] [place] [address] Jun, [facility] [place] [facility] [address] [id number] [place] [address] Jun, [facility] [place] [facility] [address] [id number] [place] [address] Jun, [facility] [place] [facility] [address] [id number] [place] [address] May, [facility] [place] [facility] [address] [id number] [place] [address] May, [facility] [place] [facility] [address] [id number] [place] [address] 27[address] May, [facility] [place] [facility] [address] [id number] [place] [address] 47[address] May, [facility] [place] [facility] [address] [id number] [place] [address] 89[address] May, [facility] [place] [facility] [address] [id number] [place] [address] May, [facility] [place] [facility] [address] [id number] [place] [address] Apr, [facility] [place] [facility] [address] [id number] [place] [address] 12[address] Apr, [facility] [place] [facility] [address] [id number] [place] [address] 115[address] Mar, [facility] [place] [facility] [address] [id number] [place] [address] Mar, [facility] [place] [facility] [address] [id number] [place] [address] 8213 Mar, [facility] [place] [facility] [address] [id number] [place] [address] 2752 Mar, [facility] [place] [facility] [address] [id number] [place] [address] 0368 Mar, [facility] [place] [facility] [address] [id number] [place] [address] 7172 Mar, [facility] [place] [facility] [address] [id number] [place] [address] 64[address] Jan, [facility] [place] [facility] [address] [id number] [place] [address] 6525 Jan, [facility] [place] [facility] [address] [id number] [place] [address]- 9276 Jan, [facility] [place] [facility] [address] [id number] [place] [address]- 0755 Jan, [facility] [place] [facility] [address] [id number] [place] [address]- 5633 Jan, [facility] [place] [facility] [address] [id number] [place] [address]- 7995 Jan, [facility] [place] [facility] [address] [id number] [place] [address]- 5763 Dec, [facility] [place] [facility] [address] [id number] [place] [address]- 1249 Dec, [facility] [place] [facility] [address] [id number] [place] [address]- 9842 Dec, [facility] [place] [facility] [address] [id number] [place] [address]- 1133 Dec, [facility] [place] [facility] [address] [id number] [place] [address]- 0798 Dec, [facility] [place] [facility] [address] [id number] [address] Dec, [facility] [place] [facility] [address] [id number] [place] [address]- 8599 Dec, [facility] [place] [facility] [address] [id number] [place] [address]- 3043 Dec, [facility] [place] [facility] [address] [id number] [place] [address]- 9949 Dec, [facility] [place] [facility] [address] [id number] [place] [address]- 0642 Dec, [facility] [place] [facility] [address] [id number] [place] [address]- 4271 Dec, [facility] [place] [facility] [address] [id number] [place] [address]- 6882 Dec, [facility] [place] [facility] [address] [id number] [place] [address]- 1499 Dec, [facility] [place] [facility] [address] [id number] [place] [address]- 7166 Dec, [facility] [place] [facility] [address] [id number] [place] [address]- 5044 Dec, [facility] [place] [facility] [address] [id number] [place] [address]- 7138 Dec, [facility] [place] [facility] [address] [id number] [place] [address]- 9105 October, [facility] [place] [facility] [address] [id number] [place] [address]- 1365 October, [facility] [place] [facility] [address] [id number] [place] [address]- 7978 October, [facility] [place] [facility] [address] [id number] [place] [address]- 7825 October, [facility] [place] [facility] [address] [id number] [place] [address]- 1272 October, [facility] [place] [facility] [address] [id number] [place] [address]- 9634 October, [facility] [place] [facility] [address] [id number] [place] [address]- 8684 Oct, [facility] [place] [facility] [address] [id number] [place] [address]- 9585 Oct, [facility] [place] [facility] [address] [id number] [place] [address]- 6150 Oct, [facility] [place] [facility] [address] [id number] [place] [address]- 3036 Oct, [facility] [place] [facility] [address] [id number] [place] [address]- 6372 Oct, [facility] [place] [facility] [address] [id number] [place] [address]- 5458 Oct, [facility] [place] [facility] [address] [id number] [place] [address]- 5859 Aug, [facility] [place] [facility] [address] [id number] [place] [address]- 8513 Aug, [facility] [place] [facility] [address] [id number] [place] [address]- 1186 Aug, [facility] [place] [facility] [address] [id number] [place] [address]- 0549 Aug, [facility] [place] [facility] [address] [id number] [place] [address]- 9536 Jul, [facility] [place] [facility] [address] [id number] [place] [address]- 6904 Jul, [facility] [place] [facility] [address] [id number] [place] [address]- 8492 Jul, [facility] [place] [facility] [address] [id number] [place] [address]- 1283 Jul, [facility] [place] [facility] [address] [id number] [place] [address]- 3868 Jun, [facility] [place] [facility] [address] [id number] [place] [address]- 8194 Jun, [facility] [place] [facility] [address] [id number] [place] [address]- 5961 Jun, [facility] [place] [facility] [address] [id number] [place] [address]- 3250 Jun, [facility] [place] [facility] [address] [id number] [place] [address]- 9325 Jun, [facility] [place] [facility] [address] [id number] [place] [address]- 8096 Jun, [facility] [place] [facility] [address] [id number] [place] [address]- 1804 Jun, [facility] [place] [facility] [address] [id number] [place] [address]- 7186 Jun, [facility] [place] [facility] [address] [id number] [place] [address]- 5907 Jun, [facility] [place] [facility] [address] [id number] [place] [address]- 6640 Jun, [facility] [place] [facility] [address] [id number] [place] [address]- 3417 Jun, [facility] [place] [facility] [address] [id number], [place] [address] May, [facility] [place] [facility] [address] [id number], [place] [address] 13 May, 2013 [facility] [place] [facility] [address] [id number] [place] [address]- 3978 May, [facility] [place] [facility] [address] [id number], [place] [address] 3904 May, [facility] [place] [facility] [address] [id number], [place] [address]- 3416 May, [facility] [place] [facility] [address] [id number] [place] [address]- 3399 May, [facility] [address] [id number] [place] [address]- 0114 May, [facility] [place] [facility] [address] [id number] [place] [address]- 1786 30 Apr, 2013 [facility] [place] [facility] [address] [id number] [place] [address]- 7828 30 Apr, 2013 [facility] [place] [facility] [address] [id number] [place] [address]- 1367 18 Apr, 2013 [facility] [place] [facility] [address] [id number] [place] [address]- 0306 Apr, [facility] [place] [facility] [address] [id number] [place] [address]- 0860 27 Mar, 2013 [facility] [place] [facility] [address] [id number] [place] [address]- 0155 26 Mar, 2013 [facility] [place] [facility] [address] [id number] [place] [address]- 5786 26 Mar, 2013 [facility] [place] [facility] [address] [id number] [place] [address]- 6290 23 Mar, 2013 [facility] [place] [facility] [address] [id number] [place] [address]- 9851 04 Mar, 2013 [facility] [place] [facility] [address] [id number] [place] [address] 2549 03 Mar, 2013 [facility] [place] [facility] [address] [id number] [place] [address]- 2545 30 Jan, 2013 [facility] [place] [facility] [address] [id number] [place] [address]- 2707 28 Jan, 2013 [facility] [place] [facility] [address] [id number] [place] [address]- 4558 20 Jan, 2013 [facility] [place] [facility] [address] [id number] [place] [address]- 8551 14 Jan, 2013 [facility] [place] [facility] [address] [id number] [place] [address]- 8027 Jan, [facility] [place] [facility] [address] [id number] [place] [address]- 0581 Dec, [facility] [place] [facility] [address] [id number] [place] [address]- 8237 Dec, [facility] [place] [facility] [address] [id number] [place] [address]- 1494 Dec, [facility] [address] [id number] [place] [address]- 4303 Dec, [facility] [place] [facility] [address] [id number] [place] [address]- 2787 Dec, [facility] [address] [id number] [place] [address] Dec, [facility] [address] [id number] [place] [address]- 4618 Dec, [facility] [place] [facility] [address] [id number] [place] [address]- 2774 Dec, [facility] [place] [facility] [address] [id number] [place] [address]- 5215 October, [facility] [place] [facility] [address] [id number] [place] [address]- 6496 October, [facility] [place] [facility] [address] [id number] [place] [address]- 9983 October, [facility] [place] [facility] [address] [id number] [place] [address]- 3371 24 Oct, 2012 [facility] [place] [facility] [address] [id number] [place] [address]- 6411 18 Oct, 2012 [facility] [place] [facility] [address] [id number] [place] [address]- 1079 17 Oct, 2012 [facility] [place] [facility] [address] [id number], [place] [address]- 1212 Oct, [facility] [place] [facility] [address] [id number] [place] [address]- 8182 Aug, [facility] [place] [facility] [address] [id number] [place] [address]- 8183 Aug, [facility] [place] [facility] [address] [id number] [place] [address]- 6210 Aug, [facility] [place] [facility] [address] [id number] [place] [address]- 6243 Jul, [facility] [place] [facility] [address] [id number] [place] [address]- 7076 May, [facility] [place] [facility] [address] [id number] [place] [address]- 2817 May, [facility] [place] [facility] [address] [facility] [id number] [place] [address]- 7775 Apr, [facility] [place] [facility] [address] [id number] [place] [address]- 6218 Apr, [facility] [place] [facility] [address] [id number] [place] [address]- 8225 Apr, [facility] [place] [facility] [address] [facility] [id number] [place] [address]- 8811 Apr, [facility] [place] [facility] [address] [id number], [place] [address]- 0640 Apr, [facility] [place] [facility] [address] [id number], [place] [address]- 9174 Apr, [facility] [place] [facility] [address] [id number] [place] [address]- 0153 Apr, [facility] [place] [facility] [address] [facility] [id number] [place] [address]- 8069 Apr, [facility] [place] [facility] [address] [facility] [id number] [place] [address]- 0237 Apr, [facility] [place] [facility] [address] [id number] [place] [address]- 6049 23 Apr, 2012 [facility] [place] [facility] [address] [id number] [place] [address]- 9065 14 Apr, 2012 [facility] [place] [facility] [address] [id number] [place] [address] 2546 09 Apr, 2012 [facility] [place] [facility] [address] [id number] [place] [address]- 1894 Mar, [facility] [place] [facility] [address] [id number] [place] [address]- 9341 Jan, [facility] [place] [facility] [address] [id number] [place] [address]- 5024 Dec, [facility] [place] [facility] [address] [id number] [place] [address]- 3921 October, [facility] [place] [facility] [address] [id number] [place] [address]- 6406 Oct, [facility] [place] [facility] [address] [id number] [place] [address]- 1782 Oct, [facility] [place] [facility] [address] [id number] [place] [address]- 0129 Oct, [facility] [place] [facility] [address] [facility] [id number] [place] [address]- 0647 Aug, [facility] [place] [facility] [address] [id number] [place] [address] 2546 Aug, [facility] [place] [facility] [address] [id number] [place] [address]- 9489 29 Aug, 2011 [facility] [place] [facility] [address] [id number] [place] [address]- 3966 16 Aug, 2011 [facility] [place] [facility] [address] [id number] [place] [address]- 4506 15 Aug, 2011 [facility] [place] [facility] [address] [id number] [place] [address]- 4909 Aug, [facility] [address] [id number] [address] 2546 Jun, [facility] [id number], [place] [address] 2546 Apr, [facility] [id number], [place] [address] 2546 Jun, [facility] [id number], [place] [address]- 2546 Jun, [facility] [id number], [place] [address] 2546 May, [facility] [id number], [place] [address] 2546 May, [facility] [id number], [place] [address]- 4506 Apr, [facility] [address] [id number], [place] [address]- 1376 Apr, IMMUNIZATIONS No Known Immunizations SOCIAL HISTORY Never Assessed REASON FOR VISIT dental hygiene recare. PLAN OF CARE Activity Details Follow Up prn Reason:TANVI VITAL SIGNS MEDICATIONS Medication Instructions Dosage Frequency Start Date End Date Duration Status Vitamin D 2000 UNIT Orally Once a day 1 tablet 24h Active MetFORMIN HCl ER 1000 mg Orally Once a day 1 tablet with evening meal 24h Active Ranitidine HCl 150 MG Orally Once a day 1 capsule at bedtime 24h Active Ondansetron 8 MG DISSOLVE ONE TABLET UNDER TONGUE EVERY 6 HOURS NEEDED FOR NAUSEA OR VOMITING 20 Active pantoprazole 40 mg by oral route Once a day 1 tablet 24h Aug, Active Magnesium Oxide 250 MG Orally Once a day 2 tablets 24h Active Concerta 54 MG Orally Once a day 1 tablet in the morning 24h Apr, 90 days Active Xyzal 5 mg 1 tablet by Oral route 2 times per day Mar, Active Zofran ODT 8 MG Orally every 8 hours as needed for nausea/vomiting 1 tablet Jun, Active Ibuprofen 800 MG Orally every 8 hours 1 tablet 8h 30 days Active Oseltamivir Phosphate 75 MG Orally once a day 1 capsule 24h Jun, 10 days Active Spiriva HandiHaler 18 MCG Active Symbicort 160-4.5 MCG/ACT Inhalation Twice a day 2 puffs 12h Jul, 90 days Not-Taking ProAir RespiClick 108 (90 Base) MCG/ACT Inhalation every 4 hrs 1 puff as needed 4h 90 Active Zoloft 50 MG Orally Once a day 1 tablet 24h Active Levocetirizine Dihydrochloride 5 MG TAKE ONE TABLET BY MOUTH TWICE DAILY 90 Active Albuterol Sulfate (2.5 MG/3ML) 0.083% Inhalation 4 times a day 3 ml as needed 6h Oct, Active EpiPen 2-Leo 0.3 MG/0.3ML Injection PRN Active Breo Ellipta 200-25 MCG/INH Inhalation Once a day 1 puff 24h Active Cryselle-28 0.3-30 MG-MCG Orally Daily for Three Weeks, 1 Week off 1 tablet Active Singulair 10 mg take 1 tablet by Oral route 1 time per day Apr, Active Nasonex 50 mcg/actuation Nasally 2 times a day 1 spray in each nare 12h Jan, 90 days Active Levothyroxine Sodium 100 MCG Orally Once a day 1 tablet 24h 90 Active RESULTS No Results PROCEDURES Procedure Date Ordered Result Body Site BITEWINGS - FOUR FILMS Jul 06, 2017 PROPHYLAXIS - ADULT Jul 06, 2017 Billing Notes on claim Jul 06, 2017 [facility] Employee/Board adjustment Jul 06, 2017 INSTRUCTIONS MEDICATIONS ADMINISTERED No Known [...] History see above surgeries Hospitalization History Anaphylactic shock-[facility] 08/23/16
--- OUTSIDE RECORDS SUMMARY | 2018-07-18 07:49 | XMS REPORT ---
Author Author AKBAR Villanueva [facility] Address [address] [place] [address] Care Team Providers Care Professor Of Medicine Name Role Phone AKBAR Villanueva Unavailable PROBLEMS Type Condition ICD9-CM Code RGO11-MY Code Onset Dates Condition Status SNOMED Code Problem Migraine with aura and without status migrainosus, not intractable G43.109 Active 5861967 Problem PCOS (polycystic ovarian syndrome) E28.2 Active 75251935 Problem Uncomplicated severe persistent asthma J45.50 Active 056347859 Problem Severe persistent asthma with exacerbation J45.51 Active 352089118 Problem Other elevated white blood cell (WBC) count D72.828 Active 619089157 Problem Multiple food allergies Z91.018 Active 805134736 Problem Pure hypercholesterolemia E78.00 Active 414942361 Problem Current chronic use of inhaled steroid Z79.51 Active 759394820 Problem Asthma exacerbation J45.901 Active 572215314 Problem ADD (attention deficit disorder) F90.0 Active 591630827 Problem Allergic rhinitis due to pollen J30.1 Active 36449493 Problem Vitamin D deficiency E55.9 Active 13080165 Problem Major depressive disorder, recurrent episode, mild F33.0 Active 381241778 Problem Acquired hypothyroidism E03.9 Active 744652043 Problem Gastroesophageal reflux disease without esophagitis K21.9 Active 727543369 ALLERGIES Substance Reaction Event Type Date Status Zithromax Unknown Drug Allergy Jul, Active Qvar shortness of breath Drug Allergy Jul, Active Ceftin Unknown Drug Allergy Jul, Active Morphine Patient is a fast metabolizer and medication is not effective Drug Allergy Jul, Active FLUORIDE VARNISH Unknown Non Drug Allergy Jul, Active [place] Unknown Non Drug Allergy Jul, Active Soybeans Unknown Non Drug Allergy Jul, Active Wheat Unknown Non Drug Allergy Jul, Active Malt Extract Unknown Non Drug Allergy Jul, Active Asprin Unknown Non Drug Allergy Jul, Active ENCOUNTERS Encounter Location Date Diagnosis [facility] [id number] [place] [address] 41494- 2264 Dec, [facility] [id number] [place] [address] 31136- 0128 Dec, [facility] [id number] [place] [address] 46582- 6524 October, Allergic rhinitis due to pollen J30.1 [facility] [id number] [place] [address] 69605- 1564 October, Allergic rhinitis due to pollen J30.1 [facility] [id number] [place] [address] 75756- 4412 Oct, [facility] [id number] [place] [address] 92748- 8349 Oct, Allergic rhinitis due to pollen J30.1 [facility] [id number] [place] [address] 80225- 3311 Oct, [facility] [id number] [place] [address] 85853- 5217 Oct, Allergic rhinitis due to pollen J30.1 [facility] [address] [place] [address] 02651- 5116 Oct, Severe persistent asthma with exacerbation J45.51 and Pneumonia due to Haemophilus influenzae, unspecified laterality, unspecified part of lung J14 [facility] [address] [place] [address] 56794- 8095 Oct, ADD (attention deficit disorder) F90.0 [facility] [id number] [place] [address] 90791- 9845 Aug, Haemophilus influenzae infection A49.2 [place] [id number] [place] [address] 11914- 5973 09 Aug, 2017 Cough productive of purulent sputum R05 [facility] [id number] [place] [address] 48195- 6392 Aug, [facility] [id number] [place] [address] 96187- 6033 Aug, Pulmonary congestion R09.89 [place] [address] 85528- 5484 Aug, Severe persistent asthma with exacerbation J45.51 ; Hiatal hernia K44.9 and Gastroesophageal reflux disease without esophagitis K21.[address] 84439- 5594 Aug, Other elevated white blood cell (WBC) count D72.[address] 193348- 3340 Aug, Uncomplicated severe persistent asthma J45.[address] 28375- 9010 Aug, Pure hypercholesterolemia E78.00 ; Uncomplicated severe persistent asthma J45.50 and Acquired hypothyroidism E03.[address] 22911- 7855 Aug, Acquired hypothyroidism E03.9 ; Pure hypercholesterolemia E78.00 and Uncomplicated severe persistent asthma J45.50 [place] [id number] [place] [address] 72446- 0020 Aug, Allergic rhinitis due to pollen J30.1 [place] [id number] [place] [address] 94265- 7379 Aug, Allergic rhinitis due to pollen J30.[address] 20157- 2073 Aug, [place] [address] [id number] Jul, Pharyngitis, unspecified etiology J02.9 and Lymphadenopathy R59.[address] 86800- 2648 Jul, ADD (attention deficit disorder) F90.0 [place] [id number] [place] [address] 07349- 5009 Jul, Allergic rhinitis due to pollen J30.1 [facility] [facility] [id number] [place] [address] 55460- 5851 Jul, Dental examination Z01.20 [place] [address] 41594- 1162 Jun, Cough productive of purulent sputum R05 [place] [address] 23267- 2129 Jun, Allergic rhinitis due to pollen J30.1 [place] [address] 52667- 8054 Jun, [place] [address] 64164- 1706 Jun, Allergic rhinitis due to pollen J30.1 [facility] [id number] [place] [address] 29533- 5643 Jun, Allergic rhinitis due to pollen J30.1 [facility] [facility] [id number] [place] [address] 55638- 8283 May, Allergic rhinitis due to pollen J30.1 [facility] [facility] [id number] [place] [address] 32613- 0461 May, Pneumonia due to Haemophilus influenzae, unspecified laterality, unspecified part of lung J14 [facility] [facility] [id number] [place] [address] 53463- 9582 May, Allergic rhinitis due to pollen J30.1 [place] [facility] [id number] [place] [address] 82855- 7767 May, Other adverse food reactions, not elsewhere classified, initial encounter T78.1XXA and Pneumonia due to Haemophilus influenzae, unspecified laterality, unspecified part of lung J14 [place] [address] 92441- 7508 13 May, 2017 Pneumonia due to Haemophilus influenzae, unspecified laterality, unspecified part of lung J14 [place] [address] 31112- 8911 10 May, 2017 Multiple food allergies Z91.018 ; Uncomplicated severe persistent asthma J45.50 ; Cough productive of purulent sputum R05 and Uses central nervous system stimulants F15.90 [place] [address] 60193- 6427 Apr, Allergic rhinitis due to pollen J30.1 [place] [address] 80860- 8589 Apr, Allergic rhinitis due to pollen J30.1 [place] [address] 40135- 2476 Apr, Allergic rhinitis due to pollen J30.1 [place] [address] 74286- 5064 Apr, ADD (attention deficit disorder) F90.0 [place] [address] 88164- 0473 28 Mar, 2017 Allergic rhinitis due to pollen J30.1 [place] [address] 12104- 5204 Mar, Encounter for immunization Z23 [place] [address] 41858- 7675 19 Mar, 2017 [place] [address] 40230- 8434 14 Mar, 2017 Allergic rhinitis due to pollen J30.1 [place] [address] 23399- 3052 07 Mar, 2017 Allergic rhinitis due to pollen J30.1 [place] [address] 66495- 3927 Jan, Allergic rhinitis due to pollen J30.1 [place] [id number] [place] [address] 39512- 9510 Jan, Allergic rhinitis due to pollen J30.1 [facility] [id number] [place] [address] 41961- 2396 Dec, Uncomplicated severe persistent asthma J45.50 [place] [address] 78810- 5602 Dec, Allergic rhinitis due to pollen J30.1 [place] [id number] [place] [address] 33794- 7188 Dec, Allergic rhinitis due to pollen J30.1 [place] [address] 32044- 9316 Dec, Allergic rhinitis due to pollen J30.1 [place] [address] 35268- 7454 Dec, ADD (attention deficit disorder) F90.0 [place] [id number] [place] [address] 12829- 6047 Dec, Allergic rhinitis due to pollen J30.1 [place] [id number] [place] [address] 44559- 9078 Dec, Visit for TB skin test Z11.1 and Screening for tuberculosis Z11.1 [place] [id number] [place] [address] 46447- 5186 Dec, Uncomplicated severe persistent asthma J45.50 ; Palpitations R00.2 ; Pericardial effusion (noninflammatory) I31.3 and Chest discomfort R07.89 [place] [address] 02039- 8123 Dec, Allergic rhinitis due to pollen J30.1 [place] [id number] [place] [address] 99104- 6090 Dec, Chronic cough R05 [place] [address] 65561- 2284 Dec, [place] [address] [place] [address] 80388- 0637 Dec, Allergic rhinitis due to pollen J30.1 [place] [address] [place] [address] 47371- 1461 Dec, Allergic rhinitis due to pollen J30.1 [facility] [id number] [place] [address] 21466- 1372 Dec, Chronic cough R05 [place] [id number] [place] [address] 77434- 7347 October, Allergic rhinitis due to pollen J30.1 [place] [id number] [place] [address] 20665- 5373 October, Allergic rhinitis due to pollen J30.1 [place] [id number] [place] [address] 05092- 4791 October, [place] [id number] [place] [address] 93163- 3296 October, Asthma exacerbation J45.901 [place] [id number] [place] [address] 76189- 6624 October, Asthma exacerbation J45.901 and Current chronic use of inhaled steroid Z79.51 [place] [id number] [place] [address] 83666- 2444 October, Uncomplicated severe persistent asthma J45.50 [place] [address] [place] [address] 80589- 3981 October, Allergic rhinitis due to pollen J30.1 [facility] [id number] [place] [address] 81485- 1946 Oct, [place] [address] [place] [address] 71501- 3991 Oct, Asthma exacerbation J45.901 and Sputum production R05 [place] [id number] [place] [address] 42421- 6323 Oct, Asthma exacerbation J45.901 [place] [address] 15192- 8369 Oct, ADD (attention deficit disorder) F90.0 [place] [id number] [place] [address] 51111- 0779 Oct, ADD (attention deficit disorder) F90.0 [place] [id number] [place] [address] 73289- 1435 Aug, Allergic rhinitis due to pollen J30.[address] 82985- 4530 Aug, Atypical pneumonia J18.[address] 17794- 6505 Aug, Allergic rhinitis due to pollen J30.1 [place] [address] 50576- 1657 Aug, Acquired hypothyroidism E03.[address] 53434- 2632 Aug, Multiple food allergies Z91.018 ; Elevated blood pressure reading R03.0 and Anaphylaxis, subsequent encounter T78.2XXD [place] [id number] [place] [address] [id number] Aug, [place] [address] 94286- 8904 Aug, Anaphylaxis, initial encounter T78.2XXA [address] 00968- 2045 Aug, Allergic rhinitis due to pollen J30.1 [place] [id number] [place] [address] 24612- 4460 Aug, Dental examination Z01.20 [place] [address] [place] [address]- 2104 09 Aug, 2016 Allergic rhinitis due to pollen J30.1 [facility] [id number] [place] [address] 76992- 6777 06 Aug, 2016 Acquired hypothyroidism E03.9 and Pure hypercholesterolemia E78.00 [facility] [id number] [place] [address] 19381- 4116 Aug, ADD (attention deficit disorder) F90.0 ; Acquired hypothyroidism E03.9 and Pure hypercholesterolemia E78.00 [facility] [id number] [place] [address] 61667- 4008 Aug, Asthma exacerbation J45.901 [facility] [id number] [place] [address] 15374- 1459 Jul, Allergic rhinitis due to pollen J30.1 [facility] [id number] [place] [address] 10747- 2520 Jul, Allergic rhinitis due to pollen J30.1 [facility] [id number] [place] [address] 53993- 0989 Jul, [facility] [id number] [place] [address] 91737- 3283 Jul, Allergic rhinitis due to pollen J30.1 [facility] [id number] [place] [address] 66737- 1760 Jul, Other long term care social worker (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 and ADD ( attention deficit disorder) F90.0 [facility] [id number] [place] [address] 70878- 5904 Jul, Other retirement (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 and ADD ( attention deficit disorder) F90.0 [facility] [id number] [place] [address] 62269- 1273 Jul, [facility] [id number] [place] [address] 92259- 3511 Jun, Allergic rhinitis due to pollen J30.1 [facility] [id number] [place] [address] 23133- 8229 Jun, Allergic rhinitis due to pollen J30.1 [facility] [id number] [place] [address] 93158- 6632 Jun, [facility] [id number] [place] [address] 51890- 7976 May, Allergic rhinitis due to pollen J30.1 [facility] [id number] [place] [address] 90269- 3097 May, Allergic rhinitis due to pollen J30.1 [facility] [id number] [place] [address] 22158- 5600 Apr, Allergic rhinitis due to pollen J30.1 [facility] [id number] [place] [address] 58985- 6643 Apr, Allergic rhinitis due to pollen J30.1 [facility] [id number] [place] [address] 27917- 3471 Apr, Encounter for immunization Z23 [facility] [id number] [place] [address] 72636- 9455 Apr, [facility] [id number] [place] [address] 78477- 1655 Mar, Allergic rhinitis due to pollen J30.1 [facility] [id number] [place] [address] 43570- 4710 Mar, Multiple allergies Z88.9 [facility] [id number] [place] [address] 57955- 9288 12 Mar, 2016 Candidal vaginitis B37.3 [facility] [id number] [place] [address] 87823- 2865 08 Mar, 2016 Allergic rhinitis due to pollen J30.1 [facility] [id number] [place] [address] 00723- 3274 Jan, Asthma exacerbation J45.901 ; Fatigue, unspecified type R53.83 and Community acquired pneumonia J18.9 [facility] [id number] [id number] Jan, Encounter for dental examination Z01.20 [facility] [address] [place] [address] 42366- 5729 Jan, Allergic rhinitis due to pollen J30.1 [facility] [id number] [place] [address] 80602- 8325 Dec, Allergic rhinitis due to pollen J30.1 [facility] [id number] [place] [address] 93790- 8648 Dec, [facility] [id number] [place] [address] 15792- 4144 Dec, Allergic rhinitis due to pollen J30.1 [facility] [address] [place] [address] 93319- 9996 Dec, [facility] [address] [place] [address] 34174- 3542 Dec, [facility] [address] [place] [address] 26719- 3622 Dec, [facility] [address] [place] [address] 46152- 0967 Dec, Allergic rhinitis due to pollen J30.1 [facility] [address] [address]- 5728 Dec, [facility] [address] [place] [address] 78369- 3960 Dec, [facility] [id number] [place] [address] 23098- 7736 Dec, Allergic rhinitis due to pollen J30.1 [facility] [id number] [place] [address] 97880- 8117 October, Allergic rhinitis due to pollen J30.1 [facility] [id number] [address]- 6181 October, Allergic rhinitis due to pollen J30.1 [facility] [address] [address]- 6367 October, [facility] [id number] [place] [address] 73273- 3224 October, [facility] [id number] [place] [address] 30073- 3333 October, ADD (attention deficit disorder) F90.0 ; Major depressive disorder, recurrent episode, mild F33.0 and Uncomplicated severe persistent asthma J45.50 [place] [id number] [place] [address] 98193- 6816 Oct, Allergic rhinitis due to pollen J30.1 [place] [id number] [place] [address] 22524- 9837 Oct, ADD (attention deficit disorder) F90.0 [place] [id number] [place] [address] 45188- 2317 Oct, Allergic rhinitis due to pollen 477.0 [place] [id number] [place] [address] 18234- 8105 Aug, Allergic rhinitis due to pollen 477.0 [place] [id number] [place] [address] 63777- 3635 Aug, 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 [facility] [id number] [place] [address] 28835- 9039 Aug, [place] [id number] [place] [address] 09095- 1422 Aug, Allergic rhinitis due to pollen 477.0 [facility] [address] [address]- 6650 Aug, Allergic rhinitis due to pollen 477.0 [facility] [id number] [place] [address] 95095- 7677 Aug, Allergic rhinitis due to pollen 477.0 [facility] [id number] [place] [address] 61077- 0541 Aug, Exposure to influenza Z20.828 [facility] [address] [place] [address] [id number] Aug, Encounter for dental examination and cleaning without abnormal findings Z01.20 [place] [address] 19105- 9604 Aug, Allergic rhinitis due to pollen J30.1 [place] [address] 95209- 7181 Aug, [place] [address] 83323- 2432 Aug, 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 [place] [address] 16980- 3270 Jul, [place] [address] 09736- 2891 Jul, Allergic rhinitis due to pollen 477.0 [place] [id number] [place] [address] 22895- 4180 Jul, [place] [id number] [place] [address] 75475- 8103 Jul, Allergic rhinitis due to pollen 477.0 [place] [id number] [place] [address] 83701- 6832 Jun, ADD (attention deficit disorder) F90.0 ; Acquired hypothyroidism E03.9 ; PCOS (polycystic ovarian syndrome) E28.2 ; Polyarthralgia M25.50 and On stimulant medication Z79.899 [place] [address] 53520- 4607 Apr, Encounter for immunization Z23 [facility] [id number] [place] [address] 26532- 1811 16 Mar, 2015 Allergic rhinitis due to pollen 477.0 [facility] [id number] [place] [address] 85837- 3733 14 Mar, 2015 Influenza vaccine administered V04.81 [facility] [id number] [place] [address] 14583- 1455 Mar, [facility] [id number] [place] [address] 54762- 8882 Jan, Allergic rhinitis due to pollen 477.0 [facility] [id number] [place] [address] 87116- 3148 Jan, Allergic rhinitis due to pollen 477.0 [facility] [id number] [place] [address] 83609- 6573 Jan, Allergic rhinitis due to pollen 477.0 [facility] [id number] [place] [address] [id number] Jan, Dental examination V72.2 [facility] [id number] [place] [address] 40542- 0430 Dec, Allergic rhinitis due to pollen 477.0 [facility] [id number] [place] [address] [id number]- [phone] October, [facility] [id number] [place] [address] [id number] [id number] Oct, [facility] [id number] [place] [address] [phone] Oct, [facility] [id number] [place] [address] [id number]- 7525 Aug, [facility] [id number] [place] [address] [id number]- 7541 Aug, [facility] [id number] [place] [address] [id number]- 1393 Aug, [facility] [place] [facility] [address] [id number] [place] [address]89 Aug, [facility] [place] [facility] [address] [id number] [place] [address]- 5008 Aug, [facility] [place] [facility] [address] [id number] [place] [address]- 6765 Aug, [facility] [place] [facility] [address] [id number] [place] [address]- 0286 Aug, [facility] [place] [facility] [address] [id number] [place] [address]- 8857 Aug, [facility] [place] [facility] [address] [id number] [place] [address]- 2960 Jul, [facility] [place] [facility] [address] [id number] [place] [address]- 8974 Jul, [facility] [place] [facility] [address] [id number] [place] [address]- 9635 Jul, [facility] [place] [facility] [address] [id number] [place] [address]- [address] Jul, [facility] [place] [facility] [address] [id number] [place] [address] Jul, [facility] [place] [facility] [address] [id number] [address] Jul, [facility] [place] [facility] [address] [id number] [address] Jul, [facility] [place] [facility] [address] [id number] [place] [address] Jul, [facility] [place] [facility] [address] [id number] [place] [address] Jul, [facility] [place] [facility] [address] [id number] [place] [address] Jul, [facility] [place] [facility] [address] [id number] [place] [address] Jul, [facility] [place] [facility] [address] [id number] [place] [address] 7106 Jun, [facility] [place] [facility] [address] [id number] [place] [address] 4044 Jun, [facility] [place] [facility] [address] [id number] [place] [address] 45[address] Jun, [facility] [place] [facility] [address] [id number] [place] [address] Jun, [facility] [place] [facility] [address] [id number] [place] [address] 20[address] Jun, [facility] [place] [facility] [address] [id number] [place] [address] Jun, [facility] [place] [facility] [address] [id number] [place] [address]118 May, [facility] [place] [facility] [address] [id number] [place] [address] 8964 May, [facility] [place] [facility] [address] [id number] [place] [address] May, [facility] [place] [facility] [address] [id number] [place] [address]40 May, [facility] [place] [facility] [address] [id number] [place] [address]- 2399 May, [facility] [place] [facility] [address] [id number] [place] [address] 5530 May, [facility] [place] [facility] [address] [id number] [place] [address]- [address]377 Apr, [facility] [place] [facility] [address] [id number] [place] [address] Apr, [facility] [place] [facility] [address] [id number] [place] [address]175 Mar, [facility] [place] [facility] [address] [id number] [place] [address] 7706 Mar, [facility] [place] [facility] [address] [id number] [place] [address] 2085 Mar, [facility] [place] [facility] [address] [id number] [place] [address] 4409 Mar, [facility] [place] [facility] [address] [id number] [place] [address]- 6405 Mar, [facility] [place] [facility] [address] [id number] [place] [address] 4058 Mar, [facility] [place] [facility] [address] [id number] [place] [address] 4716 Jan, [facility] [place] [facility] [address] [id number] [place] [address] 1337 Jan, [facility] [place] [facility] [address] [id number] [place] [address]- 7876 Jan, [facility] [place] [facility] [address] [id number] [place] [address]- 2894 Jan, [facility] [place] [facility] [address] [id number] [place] [address]- 2674 Jan, [facility] [place] [facility] [address] [id number] [place] [address]- 9888 Jan, [facility] [place] [facility] [address] [id number] [place] [address] 2210 Dec, [facility] [place] [facility] [address] [id number] [place] [address]- 7271 Dec, [facility] [place] [facility] [address] [id number] [place] [address]- 0641 Dec, [facility] [place] [facility] [address] [id number] [place] [address] 1285 Dec, [facility] [place] [facility] [address] [id number] [place] [address]- 0268 Dec, [facility] [place] [facility] [address] [id number] [place] [address]- 6716 Dec, [facility] [place] [facility] [address] [id number] [place] [address]- 4536 Dec, [facility] [place] [facility] [address] [id number] [place] [address] 6458 Dec, [facility] [place] [facility] [address] [id number] [place] [address] 8850 Dec, [facility] [place] [facility] [address] [id number] [place] [address]- 6256 Dec, [facility] [place] [facility] [address] [id number] [place] [address]- 6363 Dec, [facility] [place] [facility] [address] [id number] [place] [address]- 8737 Dec, [facility] [place] [facility] [address] [id number] [place] [address]- 1638 Dec, [facility] [place] [facility] [address] [id number] [place] [address] 7959 Dec, [facility] [place] [facility] [address] [id number] [place] [address]- 7039 Dec, [facility] [place] [facility] [address] [id number] [place] [address]- 2853 Dec, [facility] [place] [facility] [address] [id number] [place] [address]- 6834 October, [facility] [place] [facility] [address] [id number] [place] [address]- 0034 October, [facility] [place] [facility] [address] [id number] [place] [address]- 3033 October, [facility] [place] [facility] [address] [id number] [place] [address]- 6665 October, [facility] [place] [facility] [address] [id number] [place] [address]- 4760 October, [facility] [place] [facility] [address] [id number] [place] [address] 5097 October, [facility] [place] [facility] [address] [id number] [place] [address]- 9213 Oct, [facility] [place] [facility] [address] [id number] [place] [address]- 7667 Oct, [facility] [place] [facility] [address] [id number] [place] [address]- 1117 Oct, [facility] [place] [facility] [address] [id number] [place] [address] 4484 Oct, [facility] [place] [facility] [address] [id number] [place] [address]- 8736 Oct, [facility] [place] [facility] [address] [id number] [place] [address]- 9360 Oct, [facility] [place] [facility] [address] [id number] [place] [address]- 7400 Aug, [facility] [place] [facility] [address] [id number] [place] [address]- 5834 Aug, [facility] [place] [facility] [address] [id number] [place] [address]- 0494 Aug, [facility] [place] [facility] [address] [id number] [place] [address]- 3769 Aug, [facility] [place] [facility] [address] [id number] [place] [address]- 0009 Jul, [facility] [place] [facility] [address] [id number] [place] [address]- 4596 Jul, [facility] [place] [facility] [address] [id number] [place] [address]- 4657 Jul, [facility] [place] [facility] [address] [id number] [place] [address]- 2546 Jul, [facility] [address] [id number] [place] [address] Jun, [facility] [place] [facility] [address] [id number] [place] [address]- 1533 Jun, [facility] [place] [facility] [address] [id number] [place] [address]- 3657 Jun, [facility] [place] [facility] [address] [id number] [place] [address]- 1557 Jun, [facility] [place] [facility] [address] [id number] [place] [address]- 7077 Jun, [facility] [place] [facility] [address] [id number] [place] [address]- 9900 Jun, [facility] [place] [facility] [address] [id number] [place] [address] Jun, [facility] [place] [facility] [address] [id number] [place] [address]- 8960 Jun, [facility] [place] [facility] [address] [id number] [place] [address]- 4562 Jun, [facility] [place] [facility] [address] [id number] [place] [address]- 6443 Jun, [facility] [place] [facility] [address] [id number] [place] [address] Jun, [facility] [place] [facility] [address] [id number] [address]- [address]40 19 May, 2013 [facility] [place] [facility] [address] [id number] [place] [address]- 4890 May, [facility] [place] [facility] [address] [id number] [place] [address]- 7503 May, [facility] [place] [facility] [address] [id number] [place] [address]- 8864 May, [facility] [place] [facility] [address] [id number] [place] [address]- 4856 May, [facility] [address] [id number] [place] [address]- 3229 May, [facility] [place] [facility] [address] [id number] [place] [address]- 7556 May, [facility] [address] [id number] [place] [address]- 2242 Apr, [facility] [place] [facility] [address] [id number] [place] [address]- 0973 Apr, [facility] [place] [facility] [address] [id number] [place] [address]- 8197 Apr, [facility] [place] [facility] [address] [id number] [place] [address]- 6662 Apr, [facility] [place] [facility] [address] [id number] [place] [address]- 2125 27 Mar, 2013 [facility] [place] [facility] [address] [id number] [place] [address]- 7084 Mar, [facility] [place] [facility] [address] [id number] [place] [address]- 9534 Mar, [facility] [place] [facility] [address] [id number] [place] [address]- 7955 23 Mar, 2013 [facility] [place] [facility] [address] [id number] [place] [address] 2543 04 Mar, 2013 [facility] [place] [facility] [address] [id number] [place] [address]- 2542 Mar, [facility] [place] [facility] [address] [id number] [place] [address]- 5796 30 Jan, 2013 [facility] [place] [facility] [address] [id number] [place] [address]- 5761 Jan, [facility] [place] [facility] [address] [id number] [place] [address]- 6608 Jan, [facility] [address] [id number] [place] [address]- 6208 Jan, [facility] [place] [facility] [address] [id number] [place] [address]- 6413 Jan, [facility] [place] [facility] [address] [id number] [place] [address]- 4407 Dec, [facility] [place] [facility] [address] [id number] [place] [address]- 4541 Dec, [facility] [place] [facility] [address] [id number] [place] [address]- 4707 Dec, [facility] [place] [facility] [address] [id number] [place] [address]- 0802 Dec, [facility] [place] [facility] [address] [id number] [place] [address]- 0990 Dec, [facility] [place] [facility] [address] [id number] [place] [address]- 2480 Dec, [facility] [place] [facility] [address] [id number] [place] [address]- 1467 Dec, [facility] [place] [facility] [address] [id number] [address]- 8573 Dec, [facility] [place] [facility] [address] [id number] [place] [address]- 5247 October, [facility] [place] [facility] [address] [id number] [address]- 7546 October, [facility] [place] [facility] [address] [id number] [place] [address]- 4194 October, [facility] [place] [facility] [address] [id number] [place] [address]- 9644 Oct, [facility] [place] [facility] [address] [id number] [address]- 1535 Oct, [facility] [place] [facility] [address] [id number] [address]- 1250 Oct, [facility] [place] [facility] [address] [id number] [place] [address]- 2746 Oct, [facility] [place] [facility] [address] [facility] [id number] [address]- 5683 Aug, [facility] [place] [facility] [address] [facility] [id number] [place] [address]- 6433 Aug, [facility] [place] [facility] [address] [facility] [id number] [place] [address]- 6817 Aug, [facility] [place] [facility] [address] [facility] [id number] [place] [address], [place] [address]- 1348 Jul, [facility] [place] [facility] [address] [facility] [id number] [place] [address]- 0188 May, [facility] [place] [facility] [address] [id number] [address]- 1702 May, [facility] [place] [facility] [address] [facility] [id number] [address]- 1778 Apr, [facility] [place] [facility] [address] [id number] [place] [address]- 7486 Apr, [facility] [place] [facility] [address] [id number] [address]- 6413 Apr, [facility] [place] [facility] [address] [facility] [id number] [place] [address]- 8760 Apr, [facility] [place] [facility] [address] [facility] [id number] [address]- 7210 Apr, [facility] [place] [facility] [address] [facility] [id number] [place] [address]- 7020 Apr, [facility] [place] [facility] [address] [facility] [id number] [place] [address]- 1493 Apr, [facility] [place] [facility] [address] [facility] [id number] [address]- 8496 Apr, [facility] [place] [facility] [address] [id number] [place] [address]- 6741 Apr, [facility] [place] [facility] [address] [id number] [place] [address]- 8608 23 Apr, 2012 [facility] [place] [facility] [address] [id number] [place] [address]- 0707 14 Apr, 2012 [facility] [place] [facility] [address] [id number] [place] [address]- 2786 Apr, [facility] [place] [facility] [address] [id number] [place] [address]- 1346 Mar, [facility] [place] [facility] [address] [id number] [place] [address]- 7551 Jan, [facility] [place] [facility] [address] [id number] [place] [address]- 6724 Dec, [facility] [place] [facility] [address] [id number] [place] [address]- 2497 October, [facility] [place] [facility] [address] [id number] [place] [address]- 8940 Oct, [facility] [place] [facility] [address] [id number] [place] [address]- 3000 Oct, [facility] [place] [facility] [address] [id number] [place] [address]- 0446 Oct, [facility] [place] [facility] [address] [id number] [place] [address]- 8640 Aug, [facility] [place] [facility] [address] [id number] [place] [address]- 5703 Aug, [facility] [place] [facility] [address] [id number] [place] [address]- 6855 29 Aug, 2011 [facility] [place] [facility] [address] [id number] [place] [address] 2546 16 Aug, 2011 [facility] [place] [facility] [address] [id number] [place] [address]- 7033 15 Aug, 2011 [facility] [address] [id number] [address] 2546 Aug, [facility] [address] [id number] [address]- 2546 Jun, [facility] [id number] [address] 2546 Apr, [facility] [id number] [address] 2546 Jun, [facility] [id number] [address]- 2546 Jun, [facility] [id number] [address]- 2546 May, [facility] [id number] [address] 2546 May, [facility] [id number] [address]- 5241 Apr, [facility] [address] [id number] [address]- 7626 Apr, IMMUNIZATIONS Vaccine Route Administration Date Status BICILLIN C-R IM Intramuscular Aug 01, 2017 Administered SOCIAL HISTORY Never Assessed [facility] Activity Details Follow Up prn Reason: VITAL SIGNS Height 68 in 2017-08-01 Temperature 96.5 degrees Fahrenheit 2017-08-01 Heart Rate 107 bpm 2017-08-01 Respiratory Rate 20 2017-08-01 Blood pressure systolic 122 mmHg 2017-08-01 Blood pressure diastolic 64 mmHg 2017-08-01 MEDICATIONS Medication Instructions Dosage Frequency Start Date End Date Duration Status Ondansetron 8 MG DISSOLVE ONE TABLET UNDER TONGUE EVERY 6 HOURS NEEDED FOR NAUSEA OR VOMITING 20 Unknown Benzonatate 200 mg Orally Three times a day 1 capsule 8h 30 Jul, 2017 Oct, 30 day(s) Active Albuterol Sulfate (2.5 MG/3ML) 0.083% Inhalation 4 times a day 3 ml as needed 6h Oct, Unknown Vitamin D 2000 UNIT Orally Once a day 1 tablet 24h Unknown Nasonex 50 mcg/actuation Nasally 2 times a day 1 spray in each nare 12h Jan, 90 days Unknown EpiPen 2-Leo 0.3 MG/0.3ML Injection PRN Unknown Spiriva HandiHaler 18 MCG Unknown pantoprazole 40 mg by oral route Once a day 1 tablet 24h Aug, Unknown Zoloft 50 MG Orally Once a day 1 tablet 24h Unknown Levothyroxine Sodium 100 MCG Orally Once a day 1 tablet 24h 90 Unknown Singulair 10 mg take 1 tablet by Oral route 1 time per day Apr, Unknown Breo Ellipta 200-25 MCG/INH Inhalation Once a day 1 puff 24h Unknown ProAir RespiClick 108 (90 Base) MCG/ACT Inhalation every 4 hrs 1 puff as needed 4h 90 Unknown Ranitidine HCl 150 MG Orally Once a day 1 capsule at bedtime 24h Unknown Levocetirizine Dihydrochloride 5 MG TAKE ONE TABLET BY MOUTH TWICE DAILY 90 Unknown Cryselle-28 0.3-30 MG-MCG Orally Daily for Three Weeks, 1 Week off 1 tablet Unknown Concerta 54 MG Orally Once a day 1 tablet in the morning 24h Jul, 90 days Unknown Magnesium Oxide 250 MG Orally Once a day 2 tablets 24h Unknown Lidocaine Viscous 2 % Mouth/Throat every 3 hrs prn sore throat 10-15 ml swish and spit Jul, Aug, 07 days Active Oseltamivir Phosphate 75 MG Orally once a day 1 capsule 24h Jun, 10 days Unknown Xyzal 5 mg 1 tablet by Oral route 2 times per day Mar, Unknown MetFORMIN HCl ER 1000 mg Orally Once a day 1 tablet with evening meal 24h Unknown Ibuprofen 800 MG Orally every 8 hours 1 tablet 8h 30 days Unknown Zofran ODT 8 MG Orally every 8 hours as needed for nausea/vomiting 1 tablet Jun, Unknown RESULTS No Results PROCEDURES Procedure Date Ordered Result Body Site INJECTION PCN G JAMES [id number] UNITS Aug 01, 2017 THER/PROPH/DIAG INJ, SC/IM Aug 01, 2017 INSTRUCTIONS MEDICATIONS ADMINISTERED No Known Medications [...] History see above surgeries Hospitalization History Anaphylactic shock-[facility] 08/23/16
--- OUTSIDE RECORDS SUMMARY | 2018-07-18 07:50 | XMS REPORT ---
Author Author SAGAR NAVA [employer] Address Unknown Phone Unavailable Care Team Providers Care Payroll Accountant Name Role Phone SAGAR NAVA CP Unavailable Allergies, Adverse Reactions, Alerts Substance Reaction Event Type Zithromax Info Not Available Drug Allergy Ceftin Info Not Available Drug Allergy Morphine Patient is a fast metabolizer and medication is not effective Drug Allergy [place] Info Not Available Non Drug Allergy [place] Info Not Available Non Drug Allergy Wheat Info Not Available Non Drug Allergy Malt Extract Info Not Available Non Drug Allergy Asprin Info Not Available Non Drug Allergy Problems Problem Type Condition Code Onset Dates Condition Status Assessment Acquired hypothyroidism E03.9 Active Problem Major depressive disorder, recurrent episode, mild F33.0 Active Assessment ADD (attention deficit disorder) F90.0 Active Problem ADD (attention deficit disorder) F90.0 Active Problem Acquired hypothyroidism E03.9 Active Problem Allergic rhinitis due to pollen J30.1 Active Problem Migraine with aura and without status migrainosus, not intractable G43.109 Active Problem Uncomplicated severe persistent asthma J45.50 Active Problem Gastroesophageal reflux disease without esophagitis K21.9 Active Problem PCOS (polycystic ovarian syndrome) E28.2 Active Assessment On stimulant medication Z79.899 Active Assessment Polyarthralgia M25.50 Active Assessment PCOS (polycystic ovarian syndrome) E28.2 Active Medications Medication Code System Code Instructions Start Date End Date Status Dosage MetFORMIN HCl ER [facility] [address]-09 500 MG Orally Once a day 1 tablet with evening meal SudoGest [facility] 25587582719 60 MG DIRECTED Nasonex [facility] [address]-17 50 mcg/actuation Feb 24, 2014 1 sprays by Nasal route 2 times per day in each nostril Xyzal [facility] [address]-03 5 mg Mar 06, 2013 1 tablet by Oral route 2 times per day Maxalt [facility] [address]-97 10 MG Orally Once a day 1 tablet as needed one time Xopenex HFA [facility] [address]-92 45 mcg/actuation Apr 24, 2012 2 puffs by Inhalation route every 4-6 hoursPRN Singulair [facility] [address]-29 10 mg Apr 26, 2012 take 1 tablet by Oral route 1 time per day Levothyroxine Sodium [facility] 51832151858 100 MCG Orally Once a day 1 tablet Ibuprofen [facility] [address]-69 800 MG Orally Three times a day 1 tablet Zoloft [facility] [address]-77 50 MG Orally Once a day 1 tablet pantoprazole [facility] 0 40 mg September 04, 2012 1 tablet by Oral route 2 times per day Zofran ODT [facility] [address]-33 8 mg Apr 03, 2013 1 tablet by Oral route every 8 hours PRN nausea or vomiting Symbicort [facility] [address]-72 160-4.5 MCG/ACT Inhalation Twice a day 2 puffs Concerta [facility] [address]-18 18 MG Orally Once a day Jun 19, 2015 1 tablet in the morning Procedures Procedure Coding System Code Date Office Visit, Est Pt., Level 4 CPT-4 11770 Jun 19, 2015 VENIPUNCT, ROUTINE* CPT-4 11425 Jun 19, 2015 ASSAY OF FREE THYROXINE CPT-4 15417 Jun 19, 2015 COMPREHEN METABOLIC PANEL CPT-4 66684 Jun 19, 2015 ASSAY THYROID STIM HORMONE CPT-4 68928 Jun 19, 2015 RHEUMATOID FACTOR, QUANT CPT-4 71173 Jun 19, 2015 ANTINUCLEAR ANTIBODIES CPT-4 84125 Jun 19, 2015 DRUG SCREEN NON TLC DEVICES CPT-4 77837 Jun 19, 2015 COMPLETE CBC W/AUTO DIFF WBC CPT-4 66454 Jun 19, 2015 LIPID PANEL CPT-4 80917 Jun 19, 2015 C-REACTIVE PROTEIN CPT-4 53736 Jun 19, 2015 RBC SED RATE, AUTOMATED CPT-4 23039 Jun 19, 2015 Vital Signs Date/Time: Jun 19, 2015 Cardiac Monitoring Heart Rate 76 bpm Temperature 98.9 F Height 68 in Blood Pressure Diastolic 84 mmHg Blood Pressure Systolic 122 mmHg Results Name Result Date Reference Range Unit Abnormality Flag SAUL ANALYZER ----SAUL Direct Negative 20150619 Negative TSH W/ FREE T4 ----TSH 0.862 20150619 0.450-4.500 uIU/mL ----T4,Free(Direct) 1.38 20150619 0.82-1.77 ng/dL URINE DRUG SCREEN (IN HOUSE) ----MDMA negative 20150619 ----TCA negative 20150619 ----BENZO negative 20150619 ----OPIATE negative 20150619 ----THC negative 20150619 ----MTD negative 20150619 ----AMPH negative 20150619 ----BAR negative 20150619 ----PCP negative 20150619 ----MAMP negative 20150619 ----OXY negative 20150619 ----Lot # [id number] ----Exp date 20150619 ----Control + 20150619 ----COCAINE negative 20150619 ROUTINE VENIPUNCTURE LIPID PANEL ----HDL Cholesterol 42 20150619 >39 mg/dL ----VLDL Cholesterol Cole 20 20150619 5-40 mg/dL ----Cholesterol, Total 180 20150619 100-199 mg/dL ----Triglycerides 99 62860400 0-149 mg/dL ----LDL Cholesterol Calc 118 80759825 0-99 mg/dL H RA (RHEUMATOID) FACTOR ----RA Latex Turbid. <10.0 15801481 0.0-13.9 IU/mL CRP ----C-Reactive Protein, Quant 20.2 36084651 0.0-4.9 mg/L H CBC ----RDW 15.8 61496450 12.3-15.4 % H ----MCHC 31.9 39032314 31.5-35.7 g/dL ----MCH 26.4 07586675 26.6-33.0 pg L ----MCV 83 13498178 79-97 fL ----Hematocrit 37.3 61444777 34.0-46.6 % ----Hemoglobin 11.9 97790523 11.1-15.9 g/dL ----Immature Granulocytes 0 20150619 % ----RBC 4.50 29282417 3.77-5.28 x10E6/uL ----WBC 7.2 29332065 3.4-10.8 x10E3/uL ----Immature Grans (Abs) 0.0 99448125 0.0-0.1 x10E3/uL ----Eos (Absolute) 0.1 49004505 0.0-0.4 x10E3/uL ----Basos 0 13402756 % ----Baso (Absolute) 0.0 55600368 0.0-0.2 x10E3/uL ----Neutrophils (Absolute) 4.7 55208660 1.4-7.0 x10E3/uL ----Lymphs (Absolute) 2.1 72030192 0.7-3.1 x10E3/uL ----Monocytes(Absolute) 0.3 10639196 0.1-0.9 x10E3/uL ----Neutrophils 65 81789243 % ----Lymphs 30 50487497 % ----Monocytes 4 31842446 % ----Eos 1 71861018 % ----Platelets 349 03860969 150-379 x10E3/uL CMP ----BUN/Creatinine Ratio 20 02213079 8-20 ----eGFR If Africn Am 138 37248759 >59 mL/min/1.73 ----eGFR If NonAfricn Am 120 30735265 >59 mL/min/1.73 ----Creatinine, Serum 0.54 54677136 0.57-1.00 mg/dL L ----Chloride, Serum 104 20150619 97-108 mmol/L ----Potassium, Serum 4.4 20150619 3.5-5.2 mmol/L ----Sodium, Serum 142 87689656 134-144 mmol/L ----Alkaline Phosphatase, S 64 20150619 39-117 IU/L ----BUN 11 20150619 6-20 mg/dL ----Bilirubin, Total 0.2 20150619 0.0-1.2 mg/dL ----Glucose, Serum 84 93006357 65-99 mg/dL ----ALT (SGPT) 15 20150619 0-32 IU/L ----AST (SGOT) 15 20150619 0-40 IU/L ----Globulin, Total 2.2 85994787 1.5-4.5 g/dL ----A/G Ratio 1.8 20150619 1.1-2.5 ----Protein, Total, Serum 6.2 20150619 6.0-8.5 g/dL ----Albumin, Serum 4.0 20150619 3.5-5.5 g/dL ----Carbon Dioxide, Total 27 20150619 18-29 mmol/L ----Calcium, Serum 8.8 20150619 8.7-10.2 mg/dL ESR/SED RATE ----Sedimentation Rate-Kristianergren 27 20150619 0-32 mm/hr Summary Purpose [employer] Submission
--- OUTSIDE RECORDS SUMMARY | 2018-07-18 07:50 | XMS REPORT ---
Author Author BRANDY SAGAR [facility] Address [address] [place] [address] Care Team Providers Care [employer]ed [employer] Pcb Draftsman Name Role Phone TEZ NAVAHANY Unavailable PROBLEMS Type Condition ICD9-CM Code [id number] Code Onset Dates Condition Status SNOMED Code Problem Migraine with aura and without status migrainosus, not intractable G43.109 Active 6262384 Problem PCOS (polycystic ovarian syndrome) E28.2 Active 47350413 Problem Uncomplicated severe persistent asthma J45.50 Active 374436949 Problem Severe persistent asthma with exacerbation J45.51 Active 742813889 Problem Other elevated white blood cell (WBC) count D72.828 Active 548174631 Problem Multiple food allergies Z91.018 Active 881836479 Problem Pure hypercholesterolemia E78.00 Active 473136085 Problem Current chronic use of inhaled steroid Z79.51 Active 532718673 Problem Asthma exacerbation J45.901 Active 088788912 Problem ADD (attention deficit disorder) F90.0 Active 533702814 Problem Allergic rhinitis due to pollen J30.1 Active 21916247 Problem Vitamin D deficiency E55.9 Active 98345311 Problem Major depressive disorder, recurrent episode, mild F33.0 Active 025633170 Problem Acquired hypothyroidism E03.9 Active 861068668 Problem Gastroesophageal reflux disease without esophagitis K21.9 Active 289303034 ALLERGIES No Information ENCOUNTERS Encounter Location Date Diagnosis [facility] [address] [address] Dec, [facility] [id number] [place] [address] 45125- 1008 October, Allergic rhinitis due to pollen J30.1 [facility] [address], [place] [address] 18[address] October, Allergic rhinitis due to pollen J30.1 [facility] [id number] [place] [address] 33769- 7742 Oct, [place] [address] 94877- 4617 Oct, Allergic rhinitis due to pollen J30.1 [place] [id number] [place] [address] 93226- 8749 Oct, [place] [address] 18006- 7829 Oct, Allergic rhinitis due to pollen J30.1 [place] [id number] [place] [address] 95684- 5941 Oct, Severe persistent asthma with exacerbation J45.51 and Pneumonia due to Haemophilus influenzae, unspecified laterality, unspecified part of lung J14 [place] [id number] [place] [address] 61789- 4613 Oct, ADD (attention deficit disorder) F90.0 [place] [id number] [place] [address] 84733- 0569 Aug, Haemophilus influenzae infection A49.2 [place] [address] 75858- 7266 Aug, Cough productive of purulent sputum R05 [place] [id number] [place] [address] 15164- 3079 Aug, [place] [id number] [place] [address] 46842- 3947 Aug, Pulmonary congestion R09.89 [place] [id number] [place] [address] 91572- 5925 Aug, Severe persistent asthma with exacerbation J45.51 ; Hiatal hernia K44.9 and Gastroesophageal reflux disease without esophagitis K21.9 [place] [id number] [place] [address] 14172- 8062 Aug, Other elevated white blood cell (WBC) count D72.828 [place] [address] 62025- 7665 Aug, Uncomplicated severe persistent asthma J45.50 [facility] [address] [id number]- 9225 Aug, Pure hypercholesterolemia E78.00 ; Uncomplicated severe persistent asthma J45.50 and Acquired hypothyroidism E03.9 [facility] [address] 51598- 9785 Aug, Acquired hypothyroidism E03.9 ; Pure hypercholesterolemia E78.00 and Uncomplicated severe persistent asthma J45.50 [place] [address] 492754- 4914 15 Aug, 2017 Allergic rhinitis due to pollen J30.1 [place] [address] 23022- 2919 Aug, Allergic rhinitis due to pollen J30.1 [place] [address] 40449- 9333 Aug, [facility] [address] [id number] Jul, Pharyngitis, unspecified etiology J02.9 and Lymphadenopathy R59.1 [place] [address] 53121- 3893 Jul, ADD (attention deficit disorder) F90.0 [place] [address] 79259- 1945 Jul, Allergic rhinitis due to pollen J30.1 [place] [address] 97637- 3259 Jul, Dental examination Z01.20 [facility] [address] 56675- 0221 Jun, Cough productive of purulent sputum R05 [place] [address] 39736- 9893 Jun, Allergic rhinitis due to pollen J30.1 [place] [address] [place] [address] 70995- 5895 Jun, [place] [id number] [place] [address] 95746- 6173 Jun, Allergic rhinitis due to pollen J30.1 [place] [id number] [place] [address] 33067- 0509 Jun, Allergic rhinitis due to pollen J30.1 [place] [id number] [place] [address] 21153- 7921 May, Allergic rhinitis due to pollen J30.1 [place] [id number] [place] [address] 61171- 1585 May, Pneumonia due to Haemophilus influenzae, unspecified laterality, unspecified part of lung J14 [place] [address] 82652- 1826 May, Allergic rhinitis due to pollen J30.1 [place] [id number] [place] [address] 06554- 8054 May, Other adverse food reactions, not elsewhere classified, initial encounter T78.1XXA and Pneumonia due to Haemophilus influenzae, unspecified laterality, unspecified part of lung J14 [place] [id number] [place] [address] 58828- 0573 May, Pneumonia due to Haemophilus influenzae, unspecified laterality, unspecified part of lung J14 [place] [id number] [place] [address] 88818- 2772 May, Multiple food allergies Z91.018 ; Uncomplicated severe persistent asthma J45.50 ; Cough productive of purulent sputum R05 and Uses central nervous system stimulants F15.90 [place] [id number] [place] [address] 63158- 8926 Apr, Allergic rhinitis due to pollen J30.1 [place] [address] 48085- 3787 Apr, Allergic rhinitis due to pollen J30.1 [place] [address] 81022- 0183 Apr, Allergic rhinitis due to pollen J30.1 [place] [address] 49377- 6274 11 Apr, 2017 ADD (attention deficit disorder) F90.0 [place] [address] 86780- 5422 28 Mar, 2017 Allergic rhinitis due to pollen J30.1 [place] [address] 99881- 3759 21 Mar, 2017 Encounter for immunization Z23 [place] [address] 15959- 2667 19 Mar, 2017 [place] [address] 01374- 9288 14 Mar, 2017 Allergic rhinitis due to pollen J30.1 [place] [address] 39524- 5555 07 Mar, 2017 Allergic rhinitis due to pollen J30.1 [place] [address] 41854- 4447 Jan, Allergic rhinitis due to pollen J30.1 [place] [address] 80328- 7625 Jan, Allergic rhinitis due to pollen J30.1 [place] [address] 00587- 6728 Dec, Uncomplicated severe persistent asthma J45.50 [place] [address] 84882- 3669 Dec, Allergic rhinitis due to pollen J30.1 [place] [address] 73542- 6155 Dec, Allergic rhinitis due to pollen J30.1 [place] [address], [place] [address]- 8901 Dec, Allergic rhinitis due to pollen J30.1 [place] [id number] [place] [address] 49141- 7445 Dec, ADD (attention deficit disorder) F90.0 [place] [id number] [place] [address] 10039- 6917 Dec, Allergic rhinitis due to pollen J30.1 [place] [id number] [place] [address] 88368- 7984 Dec, Visit for TB skin test Z11.1 and Screening for tuberculosis Z11.1 [place] [id number] [place] [address] 67634- 9423 Dec, Uncomplicated severe persistent asthma J45.50 ; Palpitations R00.2 ; Pericardial effusion (noninflammatory) I31.3 and Chest discomfort R07.89 [place] [id number] [place] [address] 61079- 4614 Dec, Allergic rhinitis due to pollen J30.1 [place] [id number] [place] [address] 49402- 7143 Dec, Chronic cough R05 [place] [id number] [place] [address] 75704- 3796 Dec, [place] [id number] [place] [address] 42780- 1606 Dec, Allergic rhinitis due to pollen J30.1 [place] [id number] [place] [address] 37265- 8276 Dec, Allergic rhinitis due to pollen J30.1 [place] [address] [place] [address] 46585- 3102 Dec, Chronic cough R05 [place] [id number] [place] [address] 34919- 3997 October, Allergic rhinitis due to pollen J30.1 [facility] [id number] [place] [address] 39352- 4023 October, Allergic rhinitis due to pollen J30.1 [facility] [id number] [place] [address] 05786- 0835 October, [place] [address] 55192- 0544 October, Asthma exacerbation J45.901 [place] [id number] [place] [address] 72045- 9029 October, Asthma exacerbation J45.901 and Current chronic use of inhaled steroid Z79.51 [place] [id number] [place] [address] 74356- 9073 October, Uncomplicated severe persistent asthma J45.50 [place] [id number] [place] [address] 48783- 1866 October, Allergic rhinitis due to pollen J30.1 [place] [id number] [place] [address] 87125- 1479 Oct, [place] [id number] [place] [address] 94764- 8270 Oct, Asthma exacerbation J45.901 and Sputum production R05 [place] [id number] [place] [address] 74892- 9583 Oct, Asthma exacerbation J45.901 [place] [id number] [place] [address] 64311- 2598 Oct, ADD (attention deficit disorder) F90.0 [place] [address] 44089- 7282 Oct, ADD (attention deficit disorder) F90.0 [place] [id number] [place] [address] 91247- 2956 Aug, Allergic rhinitis due to pollen J30.1 [place] [id number] [place] [address] 74234- 7514 Aug, Atypical pneumonia J18.9 [place] [address] 02372- 3805 Aug, Allergic rhinitis due to pollen J30.1 [place] [address] 82620- 1200 Aug, Acquired hypothyroidism E03.9 [place] [address] 88171- 5583 Aug, Multiple food allergies Z91.018 ; Elevated blood pressure reading R03.0 and Anaphylaxis, subsequent encounter T78.2XXD [place] [address] [place] [id number] Aug, [address] 01598- 6256 Aug, Anaphylaxis, initial encounter T78.2XXA [place] [address] 97037- 5341 Aug, Allergic rhinitis due to pollen J30.1 [place] [address] 72313- 8917 Aug, Dental examination Z01.[address] 86436- 4134 Aug, Allergic rhinitis due to pollen J30.1 [place] [address] 23719- 5358 Aug, Acquired hypothyroidism E03.9 and Pure hypercholesterolemia E78.[address] 18318- 7377 Aug, ADD (attention deficit disorder) F90.0 ; Acquired hypothyroidism E03.9 and Pure hypercholesterolemia E78.00 [place] [address] 43223- 1160 Aug, Asthma exacerbation J45.901 [facility] [id number] [place] [address] 18189- 6074 Jul, Allergic rhinitis due to pollen J30.1 [facility] [address] [place] [address] 25645- 5764 Jul, Allergic rhinitis due to pollen J30.1 [facility] [id number] [place] [address] 03102- 0545 Jul, [place] [id number] [place] [address] 84432- 7007 Jul, Allergic rhinitis due to pollen J30.1 [place] [id number] [place] [address] 71716- 4538 Jul, Other senior care (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 and ADD ( attention deficit disorder) F90.0 [place] [id number] [place] [address] 97415- 1268 Jul, 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 card tender (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 and ADD ( attention deficit disorder) F90.0 [place] [id number] [place] [address] 07050- 8316 Jul, [place] [id number] [place] [address] 28161- 8892 Jun, Allergic rhinitis due to pollen J30.1 [facility] [address] [place] [address] 20967- 8294 Jun, Allergic rhinitis due to pollen J30.1 [facility] [address] [place] [address] 31709- 5006 Jun, [place] [id number] [place] [address] 78427- 3264 May, Allergic rhinitis due to pollen J30.1 [place] [address] [place] [address] 84495- 0691 May, Allergic rhinitis due to pollen J30.1 [place] [id number] [place] [address] 23124- 3284 Apr, Allergic rhinitis due to pollen J30.1 [place] [id number] [place] [address] 07586- 1730 Apr, Allergic rhinitis due to pollen J30.1 [place] [address] 35833- 0639 Apr, Encounter for immunization Z23 [place] [address] 00417- 7289 Apr, [place] [address] 26063- 6650 Mar, Allergic rhinitis due to pollen J30.1 [place] [id number] [place] [address] 22509- 0551 Mar, Multiple allergies Z88.9 [place] [address] 89700- 4640 Mar, Candidal vaginitis B37.3 [place] [address] 80011- 9964 Mar, Allergic rhinitis due to pollen J30.1 [place] [id number] [place] [address] 82643- 8573 Jan, Asthma exacerbation J45.901 ; Fatigue, unspecified type R53.83 and Community acquired pneumonia J18.9 [facility] [id number] [place] [address] [id number] Jan, Encounter for dental examination Z01.20 [place] [address] 80514- 6303 Jan, Allergic rhinitis due to pollen J30.1 [place] [id number] [place] [address] 88804- 3843 Dec, Allergic rhinitis due to pollen J30.1 [place] [address] [facility] [id number] [address]- 2369 Dec, [facility] [address] [facility] [id number], [place] [address]- 9077 Dec, Allergic rhinitis due to pollen J30.1 [facility] [address] [facility] [id number] [address]- 3330 Dec, [facility] [address] [facility] [id number], [place] [address]- 4031 Dec, [facility] [address] [facility] [id number], [place] [address]- 0329 Dec, [facility] [address] [facility] [id number], [place] [address]- 9779 Dec, Allergic rhinitis due to pollen J30.1 [facility] [address] [address]- 0267 Dec, [facility] [id number], [place] [address]- 0896 Dec, [facility] [address], [place] [address]- 6205 Dec, Allergic rhinitis due to pollen J30.1 [facility] [id number], [place] [address]- 9069 October, Allergic rhinitis due to pollen J30.1 [facility] [id number] [address]- 0495 October, Allergic rhinitis due to pollen J30.1 [facility] [address] [facility] [id number][place] [address]- 1134 October, [facility] [id number], [place] [address]- 0667 October, [facility] [id number] [address]- 4645 October, ADD (attention deficit disorder) F90.0 ; Major depressive disorder, recurrent episode, mild F33.0 and Uncomplicated severe persistent asthma J45.50 [place] [id number] [place] [address] 46787- 3044 Oct, Allergic rhinitis due to pollen J30.1 [place] [id number] [place] [address] 07670- 2672 14 Oct, 2015 ADD (attention deficit disorder) F90.0 [place] [address] 30489- 4792 06 Oct, 2015 Allergic rhinitis due to pollen 477.0 [place] [address] 30748- 6774 Aug, Allergic rhinitis due to pollen 477.0 [place] [address] 68702- 3864 Aug, 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 [place] [address] 14580- 0973 Aug, [place] [id number] [place] [address] 58931- 2462 Aug, Allergic rhinitis due to pollen 477.0 [place] [id number] [place] [address] 33972- 1270 Aug, Allergic rhinitis due to pollen 477.0 [place] [id number] [place] [address] 75378- 5543 Aug, Allergic rhinitis due to pollen 477.0 [place] [id number] [place] [address] 44175- 5077 Aug, Exposure to influenza Z20.828 [facility] [id number] [place] [address] [id number] Aug, Encounter for dental examination and cleaning without abnormal findings Z01.20 [facility] [id number] [place] [address] 18924- 9293 18 Aug, 2015 Allergic rhinitis due to pollen J30.1 [place] [id number] [place] [address] 34760- 4367 Aug, [place] [id number] [place] [address] 50634- 7593 Aug, 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 [place] [id number] [place] [address] 58434- 8820 Jul, [place] [id number] [place] [address] 89520- 4464 Jul, Allergic rhinitis due to pollen 477.0 [place] [address] 76259- 0379 Jul, [place] [address] 23652- 0530 Jul, Allergic rhinitis due to pollen 477.0 [place] [address] 71711- 6837 Jun, ADD (attention deficit disorder) F90.0 ; Acquired hypothyroidism E03.9 ; PCOS (polycystic ovarian syndrome) E28.2 ; Polyarthralgia M25.50 and On stimulant medication Z79.899 [place] [id number] [place] [address] 41384- 8852 Apr, Encounter for immunization Z23 [place] [address] 84015- 7490 16 Mar, 2015 Allergic rhinitis due to pollen 477.0 [place] [id number] [place] [address] 29102- 0947 14 Mar, 2015 Influenza vaccine administered V04.81 [place] [address] 55778- 7550 03 Mar, 2015 [place] [id number] [place] [address] 76344- 7496 Jan, Allergic rhinitis due to pollen 477.0 [place] [address] [facility] [id number] [address]- 1431 Jan, Allergic rhinitis due to pollen 477.0 [facility] [address] [address]- 4939 Jan, Allergic rhinitis due to pollen 477.0 [facility] [address] [id number] Jan, Dental examination V72.2 [facility] [id number] [place] [address] 89787- 3044 Dec, Allergic rhinitis due to pollen 477.0 [facility] [address] [place] [address] 85969- 0123 October, [facility] [address] [place] [address] 30419- 0080 Oct, [facility] [id number] [place] [address] 17885- 1999 Oct, [facility] [address], [place] [address]- 6225 Aug, [facility] [address], [place] [address]- 8558 Aug, [facility] [address] [address]- 9619 Aug, [facility] [address] [address]- 8906 Aug, [facility] [address], [place] [address]- 7712 Aug, [facility] [address] [address]- 2386 Aug, [facility] [address] 2125 Aug, [facility] [address] [address]- 2193 Aug, [facility] [place] [facility] [address] [id number] [place] [address]- 3592 Jul, [facility] [place] [facility] [address] [id number] [place] [address]- 1747 Jul, [facility] [place] [facility] [address] [id number] [place] [address]- 0368 Jul, [facility] [place] [facility] [address] [id number] [place] [address]- 0461 Jul, [facility] [place] [facility] [address] [id number] [place] [address]- 2279 Jul, [facility] [place] [facility] [address] [id number] [place] [address]- 7373 Jul, [facility] [place] [facility] [address] [id number] [place] [address]- 9165 Jul, [facility] [place] [facility] [address] [id number] [place] [address]- 4155 Jul, [facility] [place] [facility] [address] [id number] [place] [address]- 3280 Jul, [facility] [place] [facility] [address] [id number] [place] [address]- 2857 Jul, [facility] [place] [facility] [address] [id number] [place] [address]- 9801 Jul, [facility] [place] [facility] [address] [id number] [place] [address]- 3796 Jun, [facility] [place] [facility] [address] [id number] [place] [address] Jun, [facility] [place] [facility] [address] [id number] [place] [address] Jun, [facility] [place] [facility] [address] [id number] [place] [address] Jun, [facility] [place] [facility] [address] [id number] [place] [address] Jun, [facility] [place] [facility] [address] [id number] [place] [address] Jun, [facility] [place] [facility] [address] [id number] [place] [address] May, [facility] [place] [facility] [address] [id number] [place] [address] May, [facility] [place] [facility] [address] [id number] [place] [address] May, [facility] [place] [facility] [address] [id number] [place] [address] May, [facility] [place] [facility] [address] [id number] [place] [address] May, [facility] [place] [facility] [address] [id number] [place] [address] May, [facility] [place] [facility] [address] [id number] [place] [address] Apr, [facility] [place] [facility] [address] [id number] [place] [address] Apr, [facility] [place] [facility] [address] [id number] [place] [address] 30 Mar, 2014 [facility] [place] [facility] [address] [id number] [place] [address]- [address] 30 Mar, 2013 [facility] [place] [facility] [address] [id number] [place] [address] 30 Mar, 2013 [facility] [place] [facility] [address] [id number] [place] [address] 30 Mar, 2013 [facility] [place] [facility] [address] [id number] [place] [address] 19 Mar, 2014 [facility] [place] [facility] [address] [id number] [place] [address] Mar, [facility] [place] [facility] [address] [id number] [place] [address] Jan, [facility] [place] [facility] [address] [id number] [place] [address] Jan, [facility] [place] [facility] [address] [id number] [place] [address] Jan, [facility] [place] [facility] [address] [id number] [place] [address] Jan, [facility] [place] [facility] [address] [id number] [place] [address] Jan, [facility] [place] [facility] [address] [id number] [place] [address] Jan, [facility] [place] [facility] [address] [id number] [place] [address] Dec, [facility] [place] [facility] [address] [id number] [place] [address]69 Dec, [facility] [place] [facility] [address] [id number] [place] [address] 2451 Dec, [facility] [place] [facility] [address] [id number] [place] [address] 2680 Dec, [facility] [place] [facility] [address] [id number] [place] [address] 8435 Dec, [facility] [place] [facility] [address] [id number] [place] [address] Dec, [facility] [place] [facility] [address] [id number] [place] [address] 3424 Dec, [facility] [place] [facility] [address] [id number] [place] [address] 6276 Dec, [facility] [place] [facility] [address] [id number] [place] [address] 2498 Dec, [facility] [place] [facility] [address] [id number] [place] [address] 9748 Dec, [facility] [place] [facility] [address] [id number] [place] [address] 3360 Dec, [facility] [place] [facility] [address] [id number] [place] [address]- 0072 Dec, [facility] [place] [facility] [address] [id number] [place] [address]- 9326 Dec, [facility] [place] [facility] [address] [id number] [place] [address]- 4587 Dec, [facility] [place] [facility] [address] [id number] [place] [address]- 6262 Dec, [facility] [place] [facility] [address] [id number] [place] [address]- 2357 Dec, [facility] [place] [facility] [address] [id number] [place] [address]- 9603 October, [facility] [place] [facility] [address] [id number] [place] [address]- 0848 October, [facility] [place] [facility] [address] [id number] [place] [address]- 1347 October, [facility] [place] [facility] [address] [id number] [place] [address]- 4878 October, [facility] [place] [facility] [address] [id number] [place] [address]- 4775 October, [facility] [place] [facility] [address] [id number] [place] [address]- 7171 October, [facility] [place] [facility] [address] [id number] [place] [address]- 6873 Oct, [facility] [place] [facility] [address] [id number] [place] [address]- 2769 Oct, [facility] [place] [facility] [address] [id number] [place] [address]- 7638 Oct, [facility] [place] [facility] [address] [id number] [place] [address]- 1640 17 Oct, 2013 [facility] [place] [facility] [address] [id number] [place] [address]- 6021 Oct, [facility] [place] [facility] [address] [id number] [place] [address] 1985 Oct, [facility] [place] [facility] [address] [id number] [place] [address]- [address] Aug, [facility] [place] [facility] [address] [id number] [place] [address]- 4784 Aug, [facility] [place] [facility] [address] [id number] [place] [address]- 1554 Aug, [facility] [place] [facility] [address] [id number] [place] [address]- 7573 Aug, [facility] [place] [facility] [address] [id number] [place] [address]- 0819 Jul, [facility] [place] [facility] [address] [id number] [place] [address]- 5297 Jul, [facility] [place] [facility] [address] [id number] [place] [address]- 4559 Jul, [facility] [place] [facility] [address] [id number] [place] [address] 8794 Jul, [facility] [place] [facility] [address] [id number] [place] [address] 6976 Jun, [facility] [place] [facility] [address] [id number] [place] [address]- 5285 Jun, [facility] [place] [facility] [address] [id number] [place] [address]- 0545 Jun, [facility] [place] [facility] [address] [id number] [place] [address]- 2139 Jun, [facility] [place] [facility] [address] [id number], [place] [address] 1656 Jun, [facility] [place] [facility] [address] [id number] [place] [address] Jun, [facility] [place] [facility] [address] [id number] [place] [address]- 0310 Jun, [facility] [place] [facility] [address] [facility] [id number] [place] [address]- 8907 Jun, [facility] [place] [facility] [address] [id number], [place] [address] Jun, [facility] [place] [facility] [address] [id number] [place] [address]- 6955 Jun, [facility] [place] [facility] [address] [id number] [place] [address]- 9163 Jun, [facility] [place] [facility] [address] [id number] [address] 6[address] May, [facility] [place] [facility] [address] [id number] [address] May, [facility] [place] [facility] [address] [id number], [place] [address] May, [facility] [place] [facility] [address] [id number], [place] [address]- 5811 May, [facility] [place] [facility] [address] [id number], [place] [address] 3987 May, [facility] [place] [facility] [address] [id number][place] [address]- 0682 May, [facility] [place] [facility] [address] [id number], [place] [address]- 0950 May, [facility] [place] [facility] [address] [facility] [id number], [place] [address] 9818 Apr, [facility] [place] [facility] [address] [id number], [place] [address]- 47[address] Apr, [facility] [place] [facility] [address] [id number] [place] [address]- 6104 18 Apr, 2013 [facility] [address] [id number] [place] [address]- 9971 Apr, [facility] [address] [id number] [place] [address] 2546 27 Mar, 2013 [facility] [address] [id number] [place] [address]- 0656 Mar, 2012 [facility] [address] [id number] [place] [address] 2544 Mar, [facility] [address] [id number] [place] [address]- 8316 Mar, [facility] [address] [id number] [place] [address]- 0313 Mar, [facility] [address] [id number] [place] [address]- 9314 Mar, [facility] [address] [id number] [place] [address]- 6491 Jan, [facility] [address] [id number] [place] [address]- 9052 Jan, [facility] [address] [id number] [place] [address]- 7510 Jan, [facility] [place] [facility] [address] [id number] [place] [address] 2545 Jan, [facility] [address] [id number] [place] [address]- 2542 Jan, [facility] [place] [facility] [address] [id number] [place] [address]- 4003 Dec, [facility] [place] [facility] [address] [id number] [place] [address] 2545 Dec, [facility] [place] [facility] [address] [id number] [place] [address]- 8286 Dec, [facility] [address] [id number] [place] [address]- 8165 Dec, [facility] [place] [facility] [address] [id number] [place] [address]- 8895 Dec, [facility] [place] [facility] [address] [id number] [place] [address]- 8668 Dec, [facility] [place] [facility] [address] [id number] [place] [address]- 3609 Dec, [facility] [address] [id number] [place] [address]- 1354 Dec, [facility] [place] [facility] [address] [id number] [place] [address]- 8343 October, [facility] [address] [id number] [place] [address]- 2089 October, [facility] [address] [id number] [place] [address]- 1312 October, [facility] [place] [facility] [address] [id number] [place] [address]- 0854 Oct, [facility] [place] [facility] [address] [id number] [place] [address]- 7944 Oct, [facility] [place] [facility] [address] [id number] [place] [address]- 3031 Oct, [facility] [place] [facility] [address] [id number] [address]- 1858 Oct, [facility] [place] [facility] [address] [id number] [place] [address]- 2208 Aug, [facility] [place] [facility] [address] [id number] [place] [address]- 8556 Aug, [facility] [place] [facility] [address] [id number], [place] [address]- 7386 05 Aug, 2012 [facility] [place] [facility] [address] [id number][place] [address]- 3079 Jul, [facility] [place] [facility] [address] [id number] [place] [address]- 4422 May, [facility] [place] [facility] [address] [id number] [place] [address]- 9729 May, [facility] [place] [facility] [address] [facility] [id number] [place] [address]- 1152 Apr, [facility] [place] [facility] [address] [id number] [place] [address]- 2680 Apr, [facility] [place] [facility] [address] [id number] [place] [address]- 0636 Apr, [facility] [place] [facility] [address] [id number] [place] [address]- 3173 Apr, [facility] [place] [facility] [address] [facility] [id number] [place] [address]- 4868 Apr, [facility] [place] [facility] [address] [id number] [place] [address]- 2476 Apr, [facility] [place] [facility] [address] [facility] [id number] [place] [address]- 0860 Apr, [facility] [place] [facility] [address] [facility] [id number] [place] [address]- 4890 Apr, [facility] [place] [facility] [address] [facility] [id number], [place] [address]- 4569 Apr, [facility] [place] [facility] [address] [facility] [id number], [place] [address]- 3757 Apr, [facility] [place] [facility] [address] [id number] [place] [address]- 4823 14 Apr, 2012 [facility] [place] [facility] [address] [facility] [id number], [place] [address]- 4887 Apr, [facility] [place] [facility] [address] [facility] [id number] [place] [address]- 4578 17 Mar, 2012 [facility] [place] [facility] [address] [id number] [place] [address]- 4292 Jan, [facility] [place] [facility] [address] [id number] [place] [address]- 1124 Dec, [facility] [place] [facility] [address] [id number] [place] [address]- 5524 October, [facility] [place] [facility] [address] [id number] [place] [address]- 2578 Oct, [facility] [place] [facility] [address] [id number] [place] [address]- 5015 Oct, [facility] [place] [facility] [address] [id number] [place] [address]- 7675 Oct, [facility] [place] [facility] [address] [id number] [place] [address]- 7372 Aug, [facility] [place] [facility] [address] [id number] [place] [address]- 6175 Aug, [facility] [place] [facility] [address] [id number] [place] [address]- 3629 Aug, [facility] [place] [facility] [address] [id number] [place] [address]- 2560 Aug, [facility] [place] [facility] [address] [id number] [place] [address]- 3102 Aug, [facility] [place] [facility] [address] [id number] [place] [address]- 0993 Aug, [facility] [place] [facility] [address] [id number] [place] [address]15 Jun, [facility] [place] [facility] [address] [id number] [place] [address]- 4874 Apr, [facility] [place] [facility] [address] [id number] [place] [address]- 3857 Jun, [facility] [place] [facility] [address] [id number], [place] [address]- 2056 Jun, [facility] [address] [facility] [id number] [place] [address]- 2546 May, [facility] [address] [facility] [id number], [place] [address]- 2546 May, [facility] [address] [facility] [id number], [place] [address]- 9166 Apr, [facility] [address] [facility] [id number][place] [address]- 9056 Apr, IMMUNIZATIONS No Known Immunizations SOCIAL HISTORY Never Assessed REASON FOR VISIT Allergy injection(s) patricia keith PLAN OF CARE VITAL SIGNS MEDICATIONS Unknown Medications RESULTS No Results PROCEDURES Procedure Date Ordered Result Body Site IMMUNOTHERAPY, 2 OR MORE INJECTIONS 2017-07-06 N/A IMMUNOTHERAPY INJECTIONS Jul 06, 2017 INSTRUCTIONS MEDICATIONS ADMINISTERED No [...] History see above surgeries Hospitalization History Anaphylactic shock-[facility] 08/23/16
--- OUTSIDE RECORDS SUMMARY | 2018-07-18 07:51 | XMS REPORT ---
Author Author MIRTHA OJEDA [facility] Address [address] [place] [address] Care Team Providers Care Legal Summer Intern Name Role Phone MIRTHA OJEDA Unavailable PROBLEMS Type Condition ICD9-CM Code RMM60-EF Code Onset Dates Condition Status SNOMED Code Problem ADD (attention deficit disorder) F90.0 Active 031994376 Problem Major depressive disorder, recurrent episode, mild F33.0 Active 727898548 Problem Allergic rhinitis due to pollen J30.1 Active 68688756 Problem Current chronic use of inhaled steroid Z79.51 Active 188311138 Problem Asthma exacerbation J45.901 Active 423255354 Problem Pure hypercholesterolemia E78.00 Active 936180793 Problem PCOS (polycystic ovarian syndrome) E28.2 Active 59942249 Problem Multiple food allergies Z91.018 Active 720396089 Problem Dental examination Z01.20 Active 132236104 Problem Uncomplicated severe persistent asthma J45.50 Active 905984162 Problem Gastroesophageal reflux disease without esophagitis K21.9 Active 841080801 Problem Migraine with aura and without status migrainosus, not intractable G43.109 Active 0055946 Problem Vitamin D deficiency E55.9 Active 10993987 Problem Acquired hypothyroidism E03.9 Active 468145862 ALLERGIES Substance Reaction Event Type Date Status Zithromax Unknown Drug Allergy Aug, Active Ceftin Unknown Drug Allergy Aug, Active Morphine Patient is a fast metabolizer and medication is not effective Drug Allergy Aug, Active FLUORIDE VARNISH Unknown Non Drug Allergy Aug, Active [place] Unknown Non Drug Allergy Aug, Active Soybeans Unknown Non Drug Allergy Aug, Active Wheat Unknown Non Drug Allergy Aug, Active Malt Extract Unknown Non Drug Allergy Aug, Active Asprin Unknown Non Drug Allergy Aug, Active SOCIAL HISTORY Never Assessed PLAN OF CARE Activity Details Follow Up 6 Months Reason:recare,+ exam + radiographs VITAL SIGNS Blood pressure systolic 122 mmHg 2016-08-18 Blood pressure diastolic 80 mmHg 2016-08-18 MEDICATIONS Medication Instructions Dosage Frequency Start Date End Date Duration Status Xyzal 5 mg 1 tablet by Oral route 2 times per day Mar, Active Xopenex HFA 45 mcg/actuation 2 puffs by Inhalation route every 4-6 hoursPRN Apr, Active pantoprazole 40 mg by oral route Once a day 1 tablet 24h Aug, Active MetFORMIN HCl ER 1000 mg Orally Once a day 1 tablet with evening meal 24h Active Symbicort 160-4.5 MCG/ACT Inhalation Twice a day 2 puffs 12h Active Concerta 54 MG Orally Once a day 1 tablet in the morning 24h Jul, Active Vitamin D 2000 UNIT Orally Once a day 1 tablet 24h Active SudoGest 60 MG DIRECTED 20 Active Zoloft 50 MG Orally Once a day 1 tablet 24h Active Lutera 0.1-20 MG-MCG Orally Once a day 1 tablet 24h Active Nasonex 50 mcg/actuation Nasally 2 times a day 1 spray in each nare 12h Jan, 90 days Active ProAir RespiClick 108 (90 Base) MCG/ACT Inhalation every 4 hrs 1 puff as needed 4h 30 Dec, 2015 Active Singulair 10 mg take 1 tablet by Oral route 1 time per day Apr, Active Ibuprofen 800 MG Orally every 8 hours 1 tablet 8h 30 days Active Ondansetron 8 MG DISSOLVE ONE TABLET UNDER TONGUE EVERY 6 HOURS NEEDED FOR NAUSEA OR VOMITING 20 Active Levothyroxine Sodium 100 MCG Orally Once a day 1 tablet 24h Active Magnesium Oxide 250 MG Orally Once a day 2 tablets 24h Active RESULTS No Results PROCEDURES Procedure Date Ordered Result Body Site PROPHYLAXIS - ADULT Aug 18, 2016 [facility] Employee/Board adjustment Aug 18, 2016 Billing Notes on claim Aug 18, 2016 IMMUNIZATIONS No Known Immunizations [...] History see above surgeries Hospitalization History Anaphylactic shock-[facility] 08/23/16
--- OUTSIDE RECORDS SUMMARY | 2018-07-18 07:51 | XMS REPORT ---
Author Author BALJEET WILKINS [facility] Address [address] [place] [address] Care Team Providers Care Bonding Machine Setter Name Role Phone WILKINSBALJEET Unavailable PROBLEMS Type Condition ICD9-CM Code [id number] Code Onset Dates Condition Status SNOMED Code Problem Migraine with aura and without status migrainosus, not intractable G43.109 Active 5677660 Problem PCOS (polycystic ovarian syndrome) E28.2 Active 99605541 Problem Uncomplicated severe persistent asthma J45.50 Active 467687449 Problem Severe persistent asthma with exacerbation J45.51 Active 404049841 Problem Other elevated white blood cell (WBC) count D72.828 Active 732245037 Problem Multiple food allergies Z91.018 Active 400431332 Problem Pure hypercholesterolemia E78.00 Active 374220699 Problem Current chronic use of inhaled steroid Z79.51 Active 088185505 Problem Asthma exacerbation J45.901 Active 237581679 Problem ADD (attention deficit disorder) F90.0 Active 960028652 Problem Allergic rhinitis due to pollen J30.1 Active 84345316 Problem Vitamin D deficiency E55.9 Active 15398209 Problem Major depressive disorder, recurrent episode, mild F33.0 Active 476632538 Problem Acquired hypothyroidism E03.9 Active 218066320 Problem Gastroesophageal reflux disease without esophagitis K21.9 Active 518209300 ALLERGIES No Information ENCOUNTERS Encounter Location Date Diagnosis [facility] [address] [address] Dec, [facility] [id number] [place] [address] 92398- 7236 October, Allergic rhinitis due to pollen J30.1 [facility] [address] [address] October, Allergic rhinitis due to pollen J30.1 [facility] [id number] [place] [address] 47987- 2372 Oct, [place] [id number] [place] [address] 00237- 7422 Oct, Allergic rhinitis due to pollen J30.1 [place] [id number] [place] [address] 97846- 3694 Oct, [place] [id number] [place] [address] 96654- 4448 Oct, Allergic rhinitis due to pollen J30.1 [place] [id number] [place] [address] 98132- 8702 Oct, Severe persistent asthma with exacerbation J45.51 and Pneumonia due to Haemophilus influenzae, unspecified laterality, unspecified part of lung J14 [place] [id number] [place] [address] 34423- 3628 Oct, ADD (attention deficit disorder) F90.0 [place] [id number] [place] [address] 77532- 0435 Aug, Haemophilus influenzae infection A49.2 [place] [id number] [place] [address] 20880- 1951 Aug, Cough productive of purulent sputum R05 [place] [id number] [place] [address] 84634- 0605 Aug, [place] [id number] [place] [address] 79899- 9009 Aug, Pulmonary congestion R09.89 [place] [id number] [place] [address] 92755- 4218 Aug, Severe persistent asthma with exacerbation J45.51 ; Hiatal hernia K44.9 and Gastroesophageal reflux disease without esophagitis K21.9 [place] [address] [place] [address] 58511- 5929 Aug, Other elevated white blood cell (WBC) count D72.828 [place] [address] 18704- 8988 Aug, Uncomplicated severe persistent asthma J45.50 [place] [address] [place] 496153- 3913 Aug, Pure hypercholesterolemia E78.00 ; Uncomplicated severe persistent asthma J45.50 and Acquired hypothyroidism E03.9 [place] [address] 98146- 9818 Aug, Acquired hypothyroidism E03.9 ; Pure hypercholesterolemia E78.00 and Uncomplicated severe persistent asthma J45.50 [place] [address] 113054- 0768 15 Aug, 2017 Allergic rhinitis due to pollen J30.1 [place] [address] 61767- 8124 Aug, Allergic rhinitis due to pollen J30.1 [place] [address] 76489- 0191 Aug, [place] [address] [place] [id number] Jul, Pharyngitis, unspecified etiology J02.9 and Lymphadenopathy R59.[address] 56346- 1275 Jul, ADD (attention deficit disorder) F90.[address] 70304- 1616 Jul, Allergic rhinitis due to pollen J30.1 [place] [address] 79444- 1019 Jul, Dental examination Z01.20 [place] [address] 89152- 2139 Jun, Cough productive of purulent sputum R05 [place] [address] 98561- 2068 Jun, Allergic rhinitis due to pollen J30.1 [place] [address] [place] [address] 39734- 1880 Jun, [place] [id number] [place] [address] 84815- 4479 Jun, Allergic rhinitis due to pollen J30.1 [place] [id number] [place] [address] 18932- 6655 Jun, Allergic rhinitis due to pollen J30.1 [place] [id number] [place] [address] 10757- 5009 May, Allergic rhinitis due to pollen J30.1 [place] [id number] [place] [address] 85249- 9280 May, Pneumonia due to Haemophilus influenzae, unspecified laterality, unspecified part of lung J14 [place] [id number] [place] [address] 09487- 7658 May, Allergic rhinitis due to pollen J30.1 [place] [id number] [place] [address] 88516- 9353 May, Other adverse food reactions, not elsewhere classified, initial encounter T78.1XXA and Pneumonia due to Haemophilus influenzae, unspecified laterality, unspecified part of lung J14 [place] [id number] [place] [address] 98274- 4613 May, Pneumonia due to Haemophilus influenzae, unspecified laterality, unspecified part of lung J14 [place] [id number] [place] [address] 24849- 2696 10 May, 2017 Multiple food allergies Z91.018 ; Uncomplicated severe persistent asthma J45.50 ; Cough productive of purulent sputum R05 and Uses central nervous system stimulants F15.90 [place] [address] [place] [address] 40531- 5225 Apr, Allergic rhinitis due to pollen J30.1 [place] [id number] [place] [address] 48728- 4656 Apr, Allergic rhinitis due to pollen J30.1 [facility] [address] [place] [address] 53368- 9268 13 Apr, 2017 Allergic rhinitis due to pollen J30.1 [facility] [id number] [place] [address] 30598- 0005 11 Apr, 2017 ADD (attention deficit disorder) F90.0 [facility] [address] 90738- 0302 28 Mar, 2017 Allergic rhinitis due to pollen J30.1 [place] [id number] [place] [address] 00576- 1705 21 Mar, 2017 Encounter for immunization Z23 [place] [id number] [place] [address] 78294- 6917 19 Mar, 2017 [place] [address] 88430- 6542 14 Mar, 2017 Allergic rhinitis due to pollen J30.1 [facility] [id number] [place] [address] 76761- 5701 07 Mar, 2017 Allergic rhinitis due to pollen J30.1 [facility] [id number] [place] [address] 84676- 8738 Jan, Allergic rhinitis due to pollen J30.1 [facility] [id number] [place] [address] 46028- 4642 Jan, Allergic rhinitis due to pollen J30.1 [facility] [id number] [place] [address] 14939- 9201 Dec, Uncomplicated severe persistent asthma J45.50 [facility] [id number] [place] [address] 87091- 8603 Dec, Allergic rhinitis due to pollen J30.1 [facility] [id number] [place] [address] 03060- 5327 Dec, Allergic rhinitis due to pollen J30.1 [place] [address] [place] [address] 07771- 0724 Dec, Allergic rhinitis due to pollen J30.1 [place] [id number] [place] [address] 19541- 0352 Dec, ADD (attention deficit disorder) F90.0 [place] [address] 64107- 8386 Dec, Allergic rhinitis due to pollen J30.1 [place] [id number] [place] [address] 13795- 8087 Dec, Screening for tuberculosis Z11.1 and Visit for TB skin test Z11.1 [place] [id number] [place] [address] 65871- 6491 Dec, Uncomplicated severe persistent asthma J45.50 ; Palpitations R00.2 ; Pericardial effusion (noninflammatory) I31.3 and Chest discomfort R07.89 [place] [address] [place] [address] 59201- 2189 Dec, Allergic rhinitis due to pollen J30.1 [place] [id number] [place] [address] 47949- 9515 Dec, Chronic cough R05 [place] [id number] [place] [address] 15929- 8622 Dec, [place] [id number] [place] [address] 72840- 7433 Dec, Allergic rhinitis due to pollen J30.1 [place] [id number] [place] [address] 19360- 5418 Dec, Allergic rhinitis due to pollen J30.1 [place] [id number] [place] [address] 99000- 7006 Dec, Chronic cough R05 [place] [id number] [place] [address] 12761- 5779 October, Allergic rhinitis due to pollen J30.1 [facility] [address] [place] [address] 66144- 6893 October, Allergic rhinitis due to pollen J30.1 [facility] [id number] [place] [address] 80398- 8474 October, [place] [id number] [place] [address] 44126- 6835 October, Asthma exacerbation J45.901 [place] [address] [place] [address] 90083- 8015 October, Asthma exacerbation J45.901 and Current chronic use of inhaled steroid Z79.51 [place] [address] [place] [address] 21009- 9574 October, Uncomplicated severe persistent asthma J45.50 [place] [address] 91244- 1866 October, Allergic rhinitis due to pollen J30.1 [place] [id number] [place] [address] 10507- 0315 Oct, [place] [id number] [place] [address] 02990- 2705 Oct, Asthma exacerbation J45.901 and Sputum production R05 [place] [address] [place] [address] 58640- 1102 Oct, Asthma exacerbation J45.901 [place] [address] [place] [address] 59936- 0315 Oct, ADD (attention deficit disorder) F90.0 [place] [address] 73112- 5143 Oct, ADD (attention deficit disorder) F90.0 [place] [id number] [place] [address] 50274- 8012 Aug, Allergic rhinitis due to pollen J30.1 [place] [address] 51671- 8368 Aug, Atypical pneumonia J18.9 [place] [address] 99985- 5707 Aug, Allergic rhinitis due to pollen J30.1 [place] [address] 21788- 9918 Aug, Acquired hypothyroidism E03.9 [place] [address] 96082- 9290 Aug, Multiple food allergies Z91.018 ; Elevated blood pressure reading R03.0 and Anaphylaxis, subsequent encounter T78.2XXD [place] [id number] Aug, [address] 09942- 5018 Aug, Anaphylaxis, initial encounter T78.2XXA [place] [address] 27946- 9726 Aug, Allergic rhinitis due to pollen J30.[address] 89690- 9401 Aug, Dental examination Z01.[address] 34989- 9315 Aug, Allergic rhinitis due to pollen J30.1 [place] [address] 83979- 0331 Aug, Acquired hypothyroidism E03.9 and Pure hypercholesterolemia E78.[address] 08711- 5924 Aug, ADD (attention deficit disorder) F90.0 ; Acquired hypothyroidism E03.9 and Pure hypercholesterolemia E78.00 [place] [address] 58634- 1027 Aug, Asthma exacerbation J45.901 [facility] [address] [place] [address] 85905- 3550 Jul, Allergic rhinitis due to pollen J30.1 [facility] [address] [place] [address] 65117- 4306 Jul, Allergic rhinitis due to pollen J30.1 [facility] [id number] [place] [address] 97543- 3366 Jul, [facility] [id number] [place] [address] 00781- 8605 Jul, Allergic rhinitis due to pollen J30.1 [place] [id number] [place] [address] 48613- 1872 Jul, Other forwarder operator (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 and ADD ( attention deficit disorder) F90.0 [place] [id number] [place] [address] 63518- 4403 Jul, Other forwarder operator (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 and ADD ( attention deficit disorder) F90.0 [place] [id number] [place] [address] 40613- 3608 Jul, [facility] [address] [place] [address] 04649- 0983 Jun, Allergic rhinitis due to pollen J30.1 [facility] [address] [place] [address] 22416- 7430 Jun, Allergic rhinitis due to pollen J30.1 [facility] [address] [place] [address] 29632- 1300 Jun, [facility] [address] [place] [address] 47889- 2567 May, Allergic rhinitis due to pollen J30.1 [facility] [address] [address]- 1241 May, Allergic rhinitis due to pollen J30.1 [facility] [address] [place] [address] 71609- 6451 Apr, Allergic rhinitis due to pollen J30.1 [facility] [id number] [place] [address] 43489- 0060 Apr, Allergic rhinitis due to pollen J30.1 [place] [id number] [place] [address] 81663- 7271 Apr, Encounter for immunization Z23 [place] [id number] [place] [address] 14437- 1477 Apr, [place] [address] 26948- 8514 Mar, Allergic rhinitis due to pollen J30.1 [place] [id number] [place] [address] 75434- 5851 Mar, Multiple allergies Z88.9 [place] [id number] [place] [address] 33306- 2271 Mar, Candidal vaginitis B37.3 [place] [id number] [place] [address] 73830- 7092 Mar, Allergic rhinitis due to pollen J30.1 [place] [id number] [place] [address] 76142- 1425 Jan, Asthma exacerbation J45.901 ; Fatigue, unspecified type R53.83 and Community acquired pneumonia J18.9 [facility] [id number] [place] [address] [id number] Jan, Encounter for dental examination Z01.20 [place] [id number] [place] [address] 15557- 3533 Jan, Allergic rhinitis due to pollen J30.1 [facility] [address] [place] [address] 84038- 8564 Dec, Allergic rhinitis due to pollen J30.1 [place] [address] [address]- 2955 Dec, [facility] [address] [facility] [id number] [address]- 2259 Dec, Allergic rhinitis due to pollen J30.1 [facility] [address] [facility] [id number] [address]- 2646 Dec, [facility] [address] [address]- 6026 Dec, [facility] [address] [facility] [id number] [address]- 2290 Dec, [facility] [address] [facility] [id number] [address]- 6971 Dec, Allergic rhinitis due to pollen J30.1 [facility] [address] [address]- 2630 Dec, [facility] [id number] [address]- 0354 Dec, [facility] [id number] [address]- 1107 Dec, Allergic rhinitis due to pollen J30.1 [facility] [id number] [address]- 3365 October, Allergic rhinitis due to pollen J30.1 [facility] [id number] [address]- 2269 October, Allergic rhinitis due to pollen J30.1 [facility] [address] [facility] [id number] [address]- 0948 October, [facility] [address] [address]- 5514 October, [facility] [id number] [address]- 1837 October, ADD (attention deficit disorder) F90.0 ; Major depressive disorder, recurrent episode, mild F33.0 and Uncomplicated severe persistent asthma J45.50 [facility] [id number] [place] [address] 85663- 9174 Oct, Allergic rhinitis due to pollen J30.1 [facility] [id number] [place] [address] 63683- 6394 Oct, ADD (attention deficit disorder) F90.0 [place] [address] 19006- 8448 06 Oct, 2015 Allergic rhinitis due to pollen 477.0 [place] [id number] [place] [address] 25467- 8243 Aug, Allergic rhinitis due to pollen 477.0 [place] [address] 22893- 7802 Aug, 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 [place] [address] 64973- 5554 Aug, [place] [address] 44936- 1353 Aug, Allergic rhinitis due to pollen 477.0 [place] [address] 16234- 3969 Aug, Allergic rhinitis due to pollen 477.0 [place] [address] [place] [address] 08693- 0569 Aug, Allergic rhinitis due to pollen 477.0 [place] [id number] [place] [address] 22677- 5606 Aug, Exposure to influenza Z20.828 [facility] [id number] [place] [address] [id number] 19 Aug, 2015 Encounter for dental examination and cleaning without abnormal findings Z01.20 [facility] [id number] [place] [address] 12472- 1544 18 Aug, 2015 Allergic rhinitis due to pollen J30.1 [place] [address] [place] [address] 43266- 0639 18 Aug, 2015 [place] [id number] [place] [address] 97640- 9533 Aug, 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 [place] [id number] [place] [address] 76077- 7899 Jul, [place] [id number] [place] [address] 72462- 1693 Jul, Allergic rhinitis due to pollen 477.0 [place] [id number] [place] [address] 00484- 4116 Jul, [place] [id number] [place] [address] 93499- 6945 Jul, Allergic rhinitis due to pollen 477.0 [place] [id number] [place] [address] 85370- 2153 Jun, ADD (attention deficit disorder) F90.0 ; Acquired hypothyroidism E03.9 ; PCOS (polycystic ovarian syndrome) E28.2 ; Polyarthralgia M25.50 and On stimulant medication Z79.899 [place] [id number] [place] [address] 79704- 1987 16 Apr, 2015 Encounter for immunization Z23 [place] [id number] [place] [address] 16171- 1830 16 Mar, 2015 Allergic rhinitis due to pollen 477.0 [place] [id number] [place] [address] 62444- 7812 14 Mar, 2015 Influenza vaccine administered V04.81 [place] [id number] [place] [address] 98305- 0976 03 Mar, 2015 [place] [id number] [place] [address] 18462- 0584 Jan, Allergic rhinitis due to pollen 477.0 [place] [address] [address]- 4410 Jan, Allergic rhinitis due to pollen 477.0 [facility] [address] 3537 Jan, Allergic rhinitis due to pollen 477.0 [facility] [address] [id number] Jan, Dental examination V72.2 [facility] [address] [address]- 8771 Dec, Allergic rhinitis due to pollen 477.0 [facility] [address] [place] [address] 198610- 2853 October, [facility] [address] [address]- 0373 Oct, [facility] [address] [address]- 9605 Oct, [facility] [address] [address]- 3749 Aug, [facility] [address] [address]- 5298 Aug, [facility] [address] [address] Aug, [facility] [address] [address] Aug, [facility] [id number] [address] Aug, [facility] [address] [address] Aug, [facility] [address] [address] Aug, [facility] [address] [address] Aug, [facility] [place] [facility] [address] [id number] [place] [address] Jul, [facility] [place] [facility] [address] [id number] [place] [address] Jul, [facility] [place] [facility] [address] [facility] [id number] [place] [address] Jul, [facility] [place] [facility] [address] [id number] [place] [address] Jul, [facility] [place] [facility] [address] [id number] [place] [address] Jul, [facility] [place] [facility] [address] [id number] [place] [address] Jul, [facility] [place] [facility] [address] [facility] [id number] [place] [address] Jul, [facility] [place] [facility] [address] [id number] [place] [address] Jul, [facility] [place] [facility] [address] [id number] [place] [address] Jul, [facility] [place] [facility] [address] [facility] [id number] [place] [address] Jul, [facility] [place] [facility] [address] [id number] [address] Jul, [facility] [place] [facility] [address] [id number] [address] Jun, [facility] [place] [facility] [address] [id number] [place] [address] Jun, [facility] [place] [facility] [address] [facility] [id number] [place] [address] Jun, [facility] [place] [facility] [address] [facility] [id number] [place] [address] Jun, [facility] [place] [facility] [address] [id number] [place] [address]- 4435 Jun, [facility] [place] [facility] [address] [id number] [place] [address] Jun, [facility] [place] [facility] [address] [id number] [place] [address] 4[address] May, [facility] [place] [facility] [address] [id number] [place] [address] May, [facility] [place] [facility] [address] [id number] [place] [address] 3685 May, [facility] [place] [facility] [address] [id number] [place] [address] 8462 May, [facility] [place] [facility] [address] [id number] [place] [address] 3570 May, [facility] [place] [facility] [address] [id number] [place] [address] 25[address] May, [facility] [place] [facility] [address] [id number] [place] [address] 4664 Apr, [facility] [place] [facility] [address] [id number] [place] [address] 5010 Apr, [facility] [place] [facility] [address] [id number] [place] [address] 4981 30 Mar, 2014 [facility] [place] [facility] [address] [id number] [place] [address] 2542 30 Mar, 2013 [facility] [place] [facility] [address] [id number] [place] [address]- 2540 30 Mar, 2013 [facility] [place] [facility] [address] [id number] [place] [address] 2549 30 Mar, 2013 [facility] [place] [facility] [address] [id number] [place] [address]- 2541 19 Mar, 2013 [facility] [place] [facility] [address] [id number] [place] [address] 3246 Mar, [facility] [place] [facility] [address] [id number] [place] [address] 6541 Jan, [facility] [place] [facility] [address] [id number] [place] [address]- 8895 Jan, [facility] [place] [facility] [address] [id number] [place] [address] 6442 Jan, [facility] [place] [facility] [address] [id number] [place] [address]- 7662 Jan, [facility] [place] [facility] [address] [id number] [place] [address] 8007 Jan, [facility] [place] [facility] [address] [id number] [place] [address]- 9465 Jan, [facility] [place] [facility] [address] [id number] [place] [address]- 2737 Dec, [facility] [place] [facility] [address] [id number] [place] [address] 3220 Dec, [facility] [place] [facility] [address] [id number] [place] [address]- 1354 Dec, [facility] [place] [facility] [address] [id number] [place] [address]- 9438 Dec, [facility] [place] [facility] [address] [id number] [place] [address]- 9670 Dec, [facility] [place] [facility] [address] [id number] [place] [address]- 9516 Dec, [facility] [place] [facility] [address] [id number] [place] [address]- 4901 Dec, [facility] [place] [facility] [address] [id number] [place] [address]- 5543 Dec, [facility] [place] [facility] [address] [id number] [place] [address]- 1592 Dec, [facility] [place] [facility] [address] [id number] [place] [address]- 7979 Dec, [facility] [place] [facility] [address] [id number] [place] [address]- 8784 Dec, [facility] [place] [facility] [address] [id number] [place] [address]- 1448 Dec, [facility] [place] [facility] [address] [id number] [place] [address]- 2926 Dec, [facility] [place] [facility] [address] [id number] [place] [address]- 5628 Dec, [facility] [place] [facility] [address] [id number] [place] [address]- 4475 Dec, [facility] [place] [facility] [address] [id number] [place] [address]- 3505 Dec, [facility] [place] [facility] [address] [id number] [place] [address]- 2042 October, [facility] [place] [facility] [address] [id number] [place] [address]- 9484 October, [facility] [place] [facility] [address] [id number] [place] [address]- 6770 October, [facility] [place] [facility] [address] [id number] [place] [address]- 1462 October, [facility] [place] [facility] [address] [id number] [place] [address]- 3035 October, [facility] [place] [facility] [address] [id number] [place] [address]- 8761 October, [facility] [place] [facility] [address] [id number] [place] [address]- 0837 Oct, [facility] [place] [facility] [address] [id number] [place] [address]- 3245 Oct, [facility] [place] [facility] [address] [id number] [place] [address]- 1652 Oct, [facility] [place] [facility] [address] [id number] [place] [address]- 4230 17 Oct, 2013 [facility] [address] [id number] [place] [address] 6706 Oct, [facility] [place] [facility] [address] [id number] [place] [address]- 9406 Oct, [facility] [address] [id number] [place] [address] 7441 Aug, [facility] [place] [facility] [address] [id number] [place] [address]- 9603 Aug, [facility] [address] [id number] [place] [address]- 4222 Aug, [facility] [place] [facility] [address] [id number] [place] [address]- 0543 Aug, [facility] [address] [id number] [place] [address]- 2301 Jul, [facility] [address] [id number] [place] [address]- 1321 Jul, [facility] [address] [id number] [place] [address]- 0977 Jul, [facility] [address] [id number] [place] [address] 8608 Jul, [facility] [place] [facility] [address] [id number] [place] [address] 4728 Jun, [facility] [place] [facility] [address] [id number] [place] [address]- 6466 Jun, [facility] [place] [facility] [address] [id number] [place] [address]- 7926 Jun, [facility] [place] [facility] [address] [id number] [place] [address]- 2476 Jun, [facility] [place] [facility] [address] [id number] [place] [address]- 0050 Jun, [facility] [place] [facility] [address] [id number] [place] Jun, [facility] [place] [facility] [address] [id number] [place] [address] Jun, [facility] [place] [facility] [address] [id number] [place] [address]- 1594 Jun, [facility] [place] [facility] [address] [id number] [place] [address]- 6439 Jun, [facility] [place] [facility] [address] [id number] [place] [address] Jun, [facility] [place] [facility] [address] [id number] [place] [address]- 9318 Jun, [facility] [place] [facility] [address] [id number] [place] [address]- 8772 May, [facility] [place] [facility] [address] [id number] [place] [address] 0527 May, [facility] [place] [facility] [address] [id number] [place] [address]- 8782 May, [facility] [place] [facility] [address] [id number] [place] [address] 6171 May, [facility] [place] [facility] [address] [id number] [place] [address]- 3721 May, [facility] [place] [facility] [address] [id number] [place] [address]- 1362 May, [facility] [place] [facility] [address] [id number] [place] [address] May, [facility] [place] [facility] [address] [id number] [place] [address]- 4187 Apr, [facility] [place] [facility] [address] [id number] [place] [address]- 9761 Apr, [facility] [place] [facility] [address] [id number] [place] [address]- 6508 18 Apr, 2013 [facility] [address] [id number] [place] [address]- 5316 02 Apr, 2013 [facility] [place] [facility] [address] [id number] [place] [address]- 8536 27 Mar, 2012 [facility] [place] [facility] [address] [id number] [place] [address] 2546 Mar, 2012 [facility] [place] [facility] [address] [id number] [place] [address] 2542 Mar, 2012 [facility] [place] [facility] [address] [id number] [place] [address]- 3670 23 Mar, 2013 [facility] [place] [facility] [address] [id number] [place] [address]- 4735 Mar, [facility] [address] [id number] [place] [address]- 2746 Mar, [facility] [place] [facility] [address] [id number] [place] [address]- 3947 Jan, [facility] [place] [facility] [address] [id number] [place] [address]- 4553 Jan, [facility] [place] [facility] [address] [id number] [place] [address]- 4666 Jan, [facility] [place] [facility] [address] [id number] [place] [address]- 8416 Jan, [facility] [place] [facility] [address] [id number] [place] [address]- 2544 Jan, [facility] [place] [facility] [address] [id number] [place] [address]- 7241 Dec, [facility] [place] [facility] [address] [id number] [place] [address]- 6423 Dec, [facility] [place] [facility] [address] [id number] [place] [address]- 5660 Dec, [facility] [place] [facility] [address] [id number] [place] [address]- 8365 Dec, [facility] [address] [id number] [place] [address]- 9692 Dec, [facility] [place] [facility] [address] [id number] [place] [address]- 1736 Dec, [facility] [place] [facility] [address] [id number] [place] [address]- 1573 Dec, [facility] [address] [id number] [place] [address]- 5651 Dec, [facility] [place] [facility] [address] [id number] [place] [address]- 0958 October, [facility] [address] [id number] [place] [address]- 4646 October, [facility] [address] [id number] [place] [address]- 3485 October, [facility] [address] [id number] [place] [address]- 2226 Oct, [facility] [place] [facility] [address] [id number] [place] [address]- 5506 Oct, [facility] [place] [facility] [address] [id number] [place] [address]- 6196 Oct, [facility] [place] [facility] [address] [id number] [place] [address]- 4274 Oct, [facility] [place] [facility] [address] [id number] [place] [address]- 0351 Aug, [facility] [place] [facility] [address] [id number] [place] [address]- 4907 07 Aug, 2012 [facility] [place] [facility] [address] [id number] [place] [address]- 3132 05 Aug, 2012 [facility] [place] [facility] [address] [id number] [place] [address]- 9594 Jul, [facility] [place] [facility] [address] [id number] [place] [address]- 2190 May, [facility] [place] [facility] [address] [id number] [place] [address]- 1907 May, [facility] [place] [facility] [address] [id number] [place] [address]- 0979 Apr, [facility] [place] [facility] [address] [id number] [place] [address]- 4028 Apr, [facility] [place] [facility] [address] [id number] [place] [address]- 2979 Apr, [facility] [place] [facility] [address] [id number] [place] [address]- 8698 Apr, [facility] [place] [facility] [address] [id number] [place] [address]- 1765 Apr, [facility] [place] [facility] [address] [id number] [place] [address]- 4413 Apr, [facility] [place] [facility] [address] [id number] [place] [address]- 2717 Apr, [facility] [place] [facility] [address] [id number] [place] [address]- 7972 Apr, [facility] [place] [facility] [address] [id number] [place] [address]- 8194 Apr, [facility] [place] [facility] [address] [id number] [place] [address]- 2678 Apr, [facility] [place] [facility] [address] [id number] [place] [address]- 7568 14 Apr, 2012 [facility] [place] [facility] [address] [facility] [id number] [place] [address]- 5142 09 Apr, 2012 [facility] [place] [facility] [address] [id number] [place] [address]- 0156 17 Mar, 2012 [facility] [place] [facility] [address] [id number] [place] [address]- 3489 Jan, [facility] [address] [id number] [place] [address]- 0838 Dec, [facility] [address] [id number] [place] [address]- 9856 October, [facility] [address] [id number] [place] [address]- 3558 Oct, [facility] [address] [id number] [place] [address]- 7158 Oct, [facility] [address] [id number] [place] [address]- 3876 Oct, [facility] [address] [facility] [id number] [place] [address]- 4546 Aug, [facility] [address] [id number] [place] [address]- 1857 Aug, [facility] [address] [id number] [place] [address]- 5500 Aug, [facility] [address] [id number] [place] [address]- 8145 Aug, [facility] [address] [facility] [id number] [place] [address]- 2857 Aug, [facility] [address] [facility] [id number] [place] [address]- 8136 Aug, [facility] [address] [id number] [place] [address]- 6906 Jun, [facility] [place] [facility] [address] [id number] [place] [address]- 3496 Apr, [facility] [place] [facility] [address] [facility] [id number] [place] [address]- 3716 Jun, [facility] [place] [facility] [address] [facility] [id number] [place] [address]- 8076 Jun, [facility] [address] [facility] [id number] [place] [address]- 2546 May, [facility] [address] [facility] [id number] [place] [address]- 2546 May, [facility] [address] [facility] [id number] [place] [address]- 2546 Apr, [facility] [address] [facility] [id number] [place] [address]- 2546 Apr, IMMUNIZATIONS No Known Immunizations SOCIAL HISTORY Never Assessed REASON FOR VISIT allergy injections patricia keith PLAN OF CARE Activity Details Follow Up 1 Week Reason: VITAL SIGNS MEDICATIONS Unknown Medications RESULTS No Results PROCEDURES Procedure Date Ordered Result Body Site IMMUNOTHERAPY, 2 OR MORE INJECTIONS 2017-06-08 N/A IMMUNOTHERAPY INJECTIONS Jun 08, 2017 INSTRUCTIONS MEDICATIONS ADMINISTERED No Known [...] above surgeries Hospitalization History Anaphylactic shock-[facility] 08/23/16
--- OUTSIDE RECORDS SUMMARY | 2018-07-18 07:52 | XMS REPORT ---
Author Author BALJEET WILKINS [facility] Address [address] [place] [address] Care Team Providers Care Access Clinician Name Role Phone WILKINS BALJEET Unavailable PROBLEMS Type Condition ICD9-CM Code XRH15-QO Code Onset Dates Condition Status SNOMED Code Problem ADD (attention deficit disorder) F90.0 Active 389806563 Problem Major depressive disorder, recurrent episode, mild F33.0 Active 773619253 Problem Allergic rhinitis due to pollen J30.1 Active 88838554 Problem Current chronic use of inhaled steroid Z79.51 Active 276228874 Problem Asthma exacerbation J45.901 Active 012671258 Problem Pure hypercholesterolemia E78.00 Active 033739578 Problem PCOS (polycystic ovarian syndrome) E28.2 Active 75122669 Problem Multiple food allergies Z91.018 Active 732947198 Problem Dental examination Z01.20 Active 283853366 Problem Uncomplicated severe persistent asthma J45.50 Active 986172650 Problem Gastroesophageal reflux disease without esophagitis K21.9 Active 321142753 Problem Migraine with aura and without status migrainosus, not intractable G43.109 Active 4130282 Problem Vitamin D deficiency E55.9 Active 88576269 Problem Acquired hypothyroidism E03.9 Active 679835569 ALLERGIES No Information SOCIAL HISTORY Never Assessed PLAN OF CARE VITAL SIGNS MEDICATIONS Medication Instructions Dosage Frequency Start Date End Date Duration Status Vitamin D 2000 UNIT Orally Once a day 1 tablet 24h Active Ibuprofen 800 MG Orally every 8 hours 1 tablet 8h 30 days Active PredniSONE 10 mg Orally Once a day 4 tabs x2 days, 3 tabs x2 days, 2 tabs x2 days, and 1 tab x2 days, then DC. 24h Active EpiPen 2-Leo 0.3 MG/0.3ML Injection PRN Active Nasonex 50 mcg/actuation Nasally 2 times a day 1 spray in each nare 12h 25 Jan, 2014 90 days Active Xyzal 5 mg 1 tablet by Oral route 2 times per day Mar, Active MetFORMIN HCl ER 1000 mg Orally Once a day 1 tablet with evening meal 24h Active Ondansetron 8 MG DISSOLVE ONE TABLET UNDER TONGUE EVERY 6 HOURS NEEDED FOR NAUSEA OR VOMITING 20 Active Singulair 10 mg take 1 tablet by Oral route 1 time per day Apr, Active pantoprazole 40 mg by oral route Once a day 1 tablet 24h Aug, Active ProAir RespiClick 108 (90 Base) MCG/ACT Inhalation every 4 hrs 1 puff as needed 4h 30 Dec, 2015 Active Zoloft 50 MG Orally Once a day 1 tablet 24h Active Levothyroxine Sodium 100 MCG Orally Once a day 1 tablet 24h Active Magnesium Oxide 250 MG Orally Once a day 2 tablets 24h Active Symbicort 160-4.5 MCG/ACT Inhalation Twice a day 2 puffs 12h Active Concerta 54 MG Orally Once a day 1 tablet in the morning 24h Jul, Active Lutera 0.1-20 MG-MCG Orally Once a day 1 tablet 24h Active RESULTS No Results PROCEDURES No [...] History see above surgeries Hospitalization History Anaphylactic shock-[facility] 08/23/16
--- OUTSIDE RECORDS SUMMARY | 2018-07-18 07:52 | XMS REPORT ---
Author Author SAGAR NAVA Organization [facility] Address [address] [place] [address] Care Team Providers Care Freelance Director Name Role Phone BRANDYTEZSAGAR Unavailable PROBLEMS Type Condition ICD9-CM Code UUB55-LR Code Onset Dates Condition Status SNOMED Code Problem Uncomplicated severe persistent asthma J45.50 Active 361251319 Problem PCOS (polycystic ovarian syndrome) E28.2 Active 91857856 Problem Migraine with aura and without status migrainosus, not intractable G43.109 Active 5371160 Assessment Candidal vaginitis B37.3 12 Mar, 2016 Active 61479169 Problem Vitamin D deficiency E55.9 Active 12147997 Problem Major depressive disorder, recurrent episode, mild F33.0 Active 290968519 Problem Asthma exacerbation J45.901 Active 567335391 Problem Encounter for dental examination Z01.20 Active 307519558 Problem Acquired hypothyroidism E03.9 Active 997046891 Problem Gastroesophageal reflux disease without esophagitis K21.9 Active 950879253 Problem Allergic rhinitis due to pollen J30.1 Active 92223264 Problem ADD (attention deficit disorder) F90.0 Active 064210431 ALLERGIES Unknown Allergies SOCIAL HISTORY No smoking Hx information available PLAN OF CARE VITAL SIGNS MEDICATIONS Medication Instructions Dosage Frequency Start Date End Date Duration Status Diflucan 150 MG Orally once, may repeat x 1 if ineffective 1 tablet Mar, 1 dose Active Levofloxacin 500 MG Orally Once a day 1 tablet 24h Jan, 14 days Active RESULTS No Results PROCEDURES No Known procedures IMMUNIZATIONS No Known Immunizations
--- OUTSIDE RECORDS SUMMARY | 2018-07-18 07:52 | XMS REPORT ---
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 Name Role Phone BRANDYTEZ HOYTHANY Unavailable PROBLEMS Type Condition ICD9-CM Code OLJ50-RS Code Onset Dates Condition Status SNOMED Code Problem Migraine with aura and without status migrainosus, not intractable G43.109 Active 0391456 Problem PCOS (polycystic ovarian syndrome) E28.2 Active 03096291 Problem Uncomplicated severe persistent asthma J45.50 Active 359413316 Problem Severe persistent asthma with exacerbation J45.51 Active 697569861 Problem Other elevated white blood cell (WBC) count D72.828 Active 602745832 Problem Multiple food allergies Z91.018 Active 360593649 Problem Pure hypercholesterolemia E78.00 Active 217120339 Problem Current chronic use of inhaled steroid Z79.51 Active 645410967 Problem Asthma exacerbation J45.901 Active 970569364 Problem ADD (attention deficit disorder) F90.0 Active 607092693 Problem Allergic rhinitis due to pollen J30.1 Active 12832682 Problem Vitamin D deficiency E55.9 Active 74214695 Problem Major depressive disorder, recurrent episode, mild F33.0 Active 882952664 Problem Acquired hypothyroidism E03.9 Active 485249989 Problem Gastroesophageal reflux disease without esophagitis K21.9 Active 363589660 ALLERGIES No Information ENCOUNTERS Encounter Location Date Diagnosis [facility] [address] [facility] [id number] [address] Aug, Haemophilus influenzae infection A49.2 [facility] [address] [address] Aug, Cough productive of purulent sputum R05 [facility] [address] [id number] [address] Aug, [facility] [address] [address]- [address] 08 Aug, 2017 Pulmonary congestion R09.89 [place] [id number][place] [address] Aug, Severe persistent asthma with exacerbation J45.51 ; Hiatal hernia K44.9 and Gastroesophageal reflux disease without esophagitis K21.[address] [address]- [address] Aug, Other elevated white blood cell (WBC) count D72.[address] 88887- 8940 Aug, Uncomplicated severe persistent asthma J45.[address] 91879- 0584 Aug, Pure hypercholesterolemia E78.00 ; Uncomplicated severe persistent asthma J45.50 and Acquired hypothyroidism E03.[address] 70076- 1102 20 Aug, 2017 Acquired hypothyroidism E03.9 ; Pure hypercholesterolemia E78.00 and Uncomplicated severe persistent asthma J45.[address] 98740- 7453 15 Aug, 2017 Allergic rhinitis due to pollen J30.[address] 27683- 1430 Aug, Allergic rhinitis due to pollen J30.1 [place] [address] [address]59- 64[address] Aug, [place] [address] [id number] Jul, Pharyngitis, unspecified etiology J02.9 and Lymphadenopathy R59.[address] 74346- 5956 Jul, ADD (attention deficit disorder) F90.0 [place] [id number] [place] [address] 35126- 9688 Jul, Allergic rhinitis due to pollen J30.1 [place] [address] 46983- 6898 Jul, Dental examination Z01.20 [place] [address] 17343- 4156 Jun, Cough productive of purulent sputum R05 [place] [address] 58055- 6564 Jun, Allergic rhinitis due to pollen J30.1 [place] [address] 90809- 1018 Jun, [place] [address] 68314- 1190 Jun, Allergic rhinitis due to pollen J30.1 [place] [address] 06543- 3763 Jun, Allergic rhinitis due to pollen J30.1 [place] [address] [place] [id number] [place] [address] 85316- 2188 May, Allergic rhinitis due to pollen J30.1 [place] [address] [place] [id number] [place] [address] 18650- 7452 May, Pneumonia due to Haemophilus influenzae, unspecified laterality, unspecified part of lung J14 [place] [address] [place] [id number] [place] [address] 45985- 3164 May, Allergic rhinitis due to pollen J30.1 [place] [address] [place] [address] [id number] [place] [address] 71832- 0463 May, Other adverse food reactions, not elsewhere classified, initial encounter T78.1XXA and Pneumonia due to Haemophilus influenzae, unspecified laterality, unspecified part of lung J14 [place] [address] [place] [id number] [place] [address] 91927- 4859 May, Pneumonia due to Haemophilus influenzae, unspecified laterality, unspecified part of lung J14 [place] [address] [place] [id number] [place] [address] 22376- 9873 May, Multiple food allergies Z91.018 ; Uncomplicated severe persistent asthma J45.50 ; Cough productive of purulent sputum R05 and Uses central nervous system stimulants F15.90 [place] [address] [place] [id number] [place] [address] 73237- 0827 Apr, Allergic rhinitis due to pollen J30.1 [place] [address] [place] [id number] [place] [address] 58915- 2675 Apr, Allergic rhinitis due to pollen J30.1 [place] [address] 01937- 2049 Apr, Allergic rhinitis due to pollen J30.1 [place] [address] 75111- 4320 Apr, ADD (attention deficit disorder) F90.0 [place] [address] 14133- 0682 28 Mar, 2017 Allergic rhinitis due to pollen J30.1 [place] [address] [place] [id number] [place] [address] 91939- 6641 21 Mar, 2017 Encounter for immunization Z23 [place] [address] [place] [id number] [place] [address] 05865- 9518 19 Mar, 2017 [place] [address] [place] [id number] [place] [address] 44067- 0409 14 Mar, 2017 Allergic rhinitis due to pollen J30.1 [place] [address] [place] [id number] [place] [address] 28967- 0682 07 Mar, 2017 Allergic rhinitis due to pollen J30.1 [place] [address] [place] [id number] [place] [address] 19217- 9062 16 Jan, 2017 Allergic rhinitis due to pollen J30.1 [place] [address] 16874- 5529 Jan, Allergic rhinitis due to pollen J30.1 [place] [address] [place] [address] 13138- 1004 Dec, Uncomplicated severe persistent asthma J45.50 [place] [address] [place] [id number] [place] [address] 29114- 2361 Dec, Allergic rhinitis due to pollen J30.1 [place] [address] [place] [id number] [place] [address] 77888- 3384 Dec, Allergic rhinitis due to pollen J30.1 [place] [address] [place] [id number] [place] [address] 85319- 3433 Dec, Allergic rhinitis due to pollen J30.1 [place] [address] [place] [id number] [place] [address] 11854- 7413 Dec, ADD (attention deficit disorder) F90.0 [place] [address] [place] [id number] [place] [address] 63041- 2151 Dec, Allergic rhinitis due to pollen J30.1 [place] [address] [place] [id number] [place] [address] 42738- 2873 Dec, Visit for TB skin test Z11.1 and Screening for tuberculosis Z11.1 [place] [address] [place] [id number] [place] [address] 91499- 8254 Dec, Uncomplicated severe persistent asthma J45.50 ; Palpitations R00.2 ; Pericardial effusion (noninflammatory) I31.3 and Chest discomfort R07.89 [place] [address] [place] [address] 07021- 7569 Dec, Allergic rhinitis due to pollen J30.1 [place] [address] [place] [id number] [place] [address] 84530- 8001 Dec, Chronic cough R05 [place] [address] [place] [id number] [place] [address] 95335- 4054 Dec, [place] [address] [place] [id number] [place] [address] 58653- 0116 15 Dec, 2016 Allergic rhinitis due to pollen J30.1 [place] [address] [place] [id number] [place] [address] 37833- 1773 Dec, Allergic rhinitis due to pollen J30.1 [place] [address] [place] [id number] [place] [address] 25452- 1153 Dec, Chronic cough R05 [place] [address] 32316- 3358 October, Allergic rhinitis due to pollen J30.1 [place] [address] 96373- 2695 October, Allergic rhinitis due to pollen J30.1 [place] [address] [place] [id number] [place] [address] 60428- 4729 October, [place] [address] 92767- 2882 October, Asthma exacerbation J45.901 [place] [address] [place] [id number] [place] [address] 58478- 9010 October, Asthma exacerbation J45.901 and Current chronic use of inhaled steroid Z79.51 [place] [address] [place] [id number] [place] [address] 78027- 4339 October, Uncomplicated severe persistent asthma J45.50 [place] [address] [place] [id number] [place] [address] 19888- 1058 October, Allergic rhinitis due to pollen J30.1 [place] [address] [place] [id number] [place] [address] 23866- 9121 Oct, [place] [address] [place] [id number] [place] [address] 90763- 7851 Oct, Asthma exacerbation J45.901 and Sputum production R05 [place] [address] [place] [id number] [place] [address] 07381- 6126 Oct, Asthma exacerbation J45.901 [place] [address] [place] [id number] [place] [address] 80531- 6318 Oct, ADD (attention deficit disorder) F90.0 [place] [address] [place] [id number] [place] [address] 45826- 9048 Oct, ADD (attention deficit disorder) F90.0 [place] [address] 28625- 3757 Aug, Allergic rhinitis due to pollen J30.1 [place] [address] 84549- 5312 Aug, Atypical pneumonia J18.9 [place] [address] 65782- 5822 Aug, Allergic rhinitis due to pollen J30.1 [place] [address] 79207- 3656 Aug, Acquired hypothyroidism E03.9 [place] [address] 93248- 5413 Aug, Multiple food allergies Z91.018 ; Elevated blood pressure reading R03.0 and Anaphylaxis, subsequent encounter T78.2XXD [place] [address] [place] [id number] [place] [address] [id number] Aug, [place] [address] 01123- 0332 Aug, Anaphylaxis, initial encounter T78.2XXA [address] 06514- 2678 Aug, Allergic rhinitis due to pollen J30.1 [place] [address] [place] [id number] [place] [address] 95592- 5874 Aug, Dental examination Z01.[address] 53567- 0076 Aug, Allergic rhinitis due to pollen J30.1 [facility] [address] [place] [address] 22350- 9650 06 Aug, 2016 Acquired hypothyroidism E03.9 and Pure hypercholesterolemia E78.00 [facility] [address] [place] [id number] [place] [address] 43500- 4986 Aug, ADD (attention deficit disorder) F90.0 ; Acquired hypothyroidism E03.9 and Pure hypercholesterolemia E78.00 [facility] [address] [place] [id number] [place] [address] 66437- 3015 Aug, Asthma exacerbation J45.901 [place] [address] 86647- 1659 Jul, Allergic rhinitis due to pollen J30.1 [facility] [address] [place] [id number] [place] [address] 89011- 1827 Jul, Allergic rhinitis due to pollen J30.1 [facility] [address] [place] [id number] [place] [address] 35048- 1198 Jul, [facility] [address] [place] [id number] [place] [address] 12825- 3403 Jul, Allergic rhinitis due to pollen J30.1 [facility] [address] [place] [id number] [place] [address] 85929- 1982 Jul, Other longterm (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 and ADD ( attention deficit disorder) F90.0 [facility] [address] [place] [address] 04584- 8233 Jul, 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 and ADD ( attention deficit disorder) F90.0 [facility] [address] [place] [id number] [place] [address] 90302- 3674 Jul, [facility] [address] [place] [id number] [place] [address] 22499- 1493 Jun, Allergic rhinitis due to pollen J30.1 [facility] [id number] [place] [address] 22716- 9062 Jun, Allergic rhinitis due to pollen J30.1 [facility] [address] [place] [id number] [place] [address] 32127- 6977 Jun, [place] [address] [place] [id number] [place] [address] 91898- 6820 May, Allergic rhinitis due to pollen J30.1 [facility] [address] [place] [id number] [place] [address] 62864- 0843 May, Allergic rhinitis due to pollen J30.1 [place] [address] [place] [id number] [place] [address] 75419- 8033 Apr, Allergic rhinitis due to pollen J30.1 [place] [address] [place] [id number] [place] [address] 51649- 4548 Apr, Allergic rhinitis due to pollen J30.1 [place] [address] 86094- 9584 Apr, Encounter for immunization Z23 [place] [address] 92112- 1905 Apr, [place] [address] [place] [id number] [place] [address] 84304- 0470 Mar, Allergic rhinitis due to pollen J30.1 [place] [address] [place] [id number] [place] [address] 01968- 3311 Mar, Multiple allergies Z88.9 [place] [address] [place] [id number] [place] [address] 55229- 2587 Mar, Candidal vaginitis B37.3 [place] [address] [place] [id number] [place] [address] 27241- 4180 08 Mar, 2016 Allergic rhinitis due to pollen J30.1 [place] [address] [place] [id number] [place] [address] 70688- 7939 Jan, Asthma exacerbation J45.901 ; Fatigue, unspecified type R53.83 and Community acquired pneumonia J18.9 [facility] [address] [address] Jan, Encounter for dental examination Z01.20 [facility] [address] [address]- 5499 Jan, Allergic rhinitis due to pollen J30.1 [facility] [address] [place] [address] 57449- 1991 Dec, Allergic rhinitis due to pollen J30.1 [facility] [address] [address]- 3846 Dec, [facility] [address] [place] [id number] [place] [address] 35518- 6325 Dec, Allergic rhinitis due to pollen J30.1 [facility] [address] [address]- 6454 Dec, [facility] [address] [address]- 4209 Dec, [facility] [address] [place] [address] 54138- 1893 Dec, [facility] [address] [address]- 9546 Dec, Allergic rhinitis due to pollen J30.1 [facility] [address] [address]- 4933 Dec, [facility] [address] [address]- 7162 Dec, [facility] [address] [place] [id number] [place] [address] 54823- 5397 Dec, Allergic rhinitis due to pollen J30.1 [facility] [address] [address]- 1109 October, Allergic rhinitis due to pollen J30.1 [facility] [address] [id number] [address]- 4870 October, Allergic rhinitis due to pollen J30.1 [facility] [address] [place] [id number] [place] [address] 69570- 0777 October, [facility] [address] [place] [id number] [place] [address] 95876- 2014 October, [place] [address] [place] [id number] [place] [address] 88809- 6897 October, ADD (attention deficit disorder) F90.0 ; Major depressive disorder, recurrent episode, mild F33.0 and Uncomplicated severe persistent asthma J45.50 [place] [address] [place] [id number] [place] [address] 40838- 5319 Oct, Allergic rhinitis due to pollen J30.1 [place] [address] [place] [id number] [place] [address] 45167- 6161 Oct, ADD (attention deficit disorder) F90.0 [place] [address] [place] [id number] [place] [address] 04983- 9578 Oct, Allergic rhinitis due to pollen 477.0 [place] [address] [place] [id number] [place] [address] 55804- 9147 Aug, Allergic rhinitis due to pollen 477.0 [place] [address] [place] [address] 81702- 3642 Aug, 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 [place] [address] [place] [id number] [place] [address] 44817- 2955 Aug, [place] [address] [place] [id number] [place] [address] 66105- 7964 Aug, Allergic rhinitis due to pollen 477.0 [place] [address] [place] [address] 31734- 6928 Aug, Allergic rhinitis due to pollen 477.0 [place] [address] [place] [id number] [place] [address] 61408- 6611 Aug, Allergic rhinitis due to pollen 477.0 [facility] [address] [place] [address] 46794- 9392 Aug, Exposure to influenza Z20.828 [facility] [address] [place] [address] [id number] Aug, 2015 Encounter for dental examination and cleaning without abnormal findings Z01.20 [place] [address] [place] [id number] [place] [address] 61713- 5767 Aug, Allergic rhinitis due to pollen J30.1 [place] [address] 63533- 1800 Aug, [place] [address] 81525- 8371 Aug, 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 [place] [address] 10773- 5845 Jul, [place] [address] 39968- 7743 Jul, Allergic rhinitis due to pollen 477.0 [place] [address] [place] [id number] [place] [address] 17710- 6049 Jul, [place] [address] [place] [id number] [place] [address] 24936- 7795 Jul, Allergic rhinitis due to pollen 477.0 [place] [address] [place] [id number] [place] [address] 50023- 6122 Jun, ADD (attention deficit disorder) F90.0 ; Acquired hypothyroidism E03.9 ; PCOS (polycystic ovarian syndrome) E28.2 ; Polyarthralgia M25.50 and On stimulant medication Z79.899 [place] [address] [place] [id number] [place] [address] 75333- 1639 16 Apr, 2015 Encounter for immunization Z23 [place] [address] 48893- 8921 16 Mar, 2015 Allergic rhinitis due to pollen 477.0 [facility] [address] [place] [address] 08844- 0383 Mar, Influenza vaccine administered V04.81 [facility] [address] [place] [address] 25203- 6567 Mar, [facility] [address] [place] [id number] [place] [address] 70484- 0826 Jan, Allergic rhinitis due to pollen 477.0 [facility] [address] [place] [id number] [place] [address] 04724- 3857 Jan, Allergic rhinitis due to pollen 477.0 [facility] [address] [place] [id number] [place] [address] 54676- 5321 Jan, Allergic rhinitis due to pollen 477.0 [facility] [address] [place] [id number] [place] [address] [id number] Jan, Dental examination V72.2 [facility] [address] [place] [address] [id number] [place] [address] 14290- 8256 Dec, Allergic rhinitis due to pollen 477.0 [facility] [address] [place] [address] 96925- 5216 October, [facility] [address] [place] [address] 88812- 8126 Oct, [facility] [address] [place] [id number] [place] [address] 84848- 5130 Oct, [facility] [address] [place] [address] 85470- 5935 Aug, [facility] [address] [place] [id number] [place] [address] 16764- 6431 Aug, [facility] [address] [address]- 9941 Aug, [facility] [address] [place] [id number] [address]- 5378 Aug, [facility] [place] [facility] [address] [id number] [place] [address]- 3089 Aug, [facility] [place] [facility] [address] [id number] [place] [address]- 9485 Aug, [facility] [place] [facility] [address] [id number] [place] [address]- 8764 Aug, [facility] [place] [facility] [address] [id number] [place] [address]- 9824 Aug, [facility] [place] [facility] [address] [id number] [place] [address]- 8379 Jul, [facility] [place] [facility] [address] [id number] [place] [address]- 7121 Jul, [facility] [place] [facility] [address] [facility] [id number] [place] [address]- 4979 Jul, [facility] [place] [facility] [address] [id number] [place] [address]- 1065 Jul, [facility] [place] [facility] [address] [facility] [id number] [place] [address]- 5437 Jul, [facility] [place] [facility] [address] [facility] [id number] [place] [address]- 1241 Jul, [facility] [place] [facility] [address] [id number] [place] [address]- 1440 Jul, [facility] [place] [facility] [address] [id number] [place] [address]- 6525 Jul, [facility] [place] [facility] [address] [id number] [place] [address]- 1903 Jul, [facility] [place] [facility] [address] [id number] [place] [address]- 0709 Jul, [facility] [place] [facility] [address] [id number] [place] [address]- 3462 Jul, [facility] [place] [facility] [address] [id number] [place] [address]- 8565 Jun, [facility] [place] [facility] [address] [id number] [place] 7000 Jun, [facility] [place] [facility] [address] [id number] [place] 8294 Jun, [facility] [place] [facility] [address] [id number] [place] [address]- 5263 Jun, [facility] [place] [facility] [address] [id number] [place] 8052 Jun, [facility] [place] [facility] [address] [id number] [place] [address]- 8562 Jun, [facility] [place] [facility] [address] [id number] [place] [address]- 1376 May, [facility] [place] [facility] [address] [id number] [place] [address]- 7800 May, [facility] [place] [facility] [address] [id number] [place] [address]- 0637 May, [facility] [place] [facility] [address] [id number] [place] [address]- 8923 May, [facility] [place] [facility] [address] [id number] [address]- 2400 May, [facility] [place] [facility] [address] [id number] [address]- 9072 May, [facility] [place] [facility] [address] [id number] [place] 6362 Apr, [facility] [place] [facility] [address] [id number] [place] 6368 Apr, [facility] [place] [facility] [address] [id number] [address] Mar, [facility] [place] [facility] [address] [id number] [address] Mar, [facility] [place] [facility] [address] [id number] [place] [address] Mar, [facility] [place] [facility] [address] [id number] [place] [address] Mar, [facility] [place] [facility] [address] [id number] [place] [address] Mar, [facility] [place] [facility] [address] [id number] [place] [address] Mar, [facility] [place] [facility] [address] [id number] [place] [address] Jan, [facility] [place] [facility] [address] [id number] [place] [address] Jan, [facility] [place] [facility] [address] [id number] [place] [address] Jan, [facility] [place] [facility] [address] [id number] [place] [address] Jan, [facility] [place] [facility] [address] [id number] [place] [address] Jan, [facility] [place] [facility] [address] [id number] [place] [address] Jan, [facility] [place] [facility] [address] [id number] [place] [address] Dec, [facility] [place] [facility] [address] [id number] [place] [address] Dec, [facility] [place] [facility] [address] [id number] [place] [address] Dec, [facility] [place] [facility] [address] [id number] [place] [address] Dec, [facility] [place] [facility] [address] [id number] [place] [address] Dec, [facility] [place] [facility] [address] [id number] [place] [address] Dec, [facility] [place] [facility] [address] [address] [id number] [place] [address] Dec, [facility] [place] [facility] [address] [id number] [place] [address] Dec, [facility] [place] [facility] [address] [id number] [place] [address] Dec, [facility] [place] [facility] [address] [id number] [place] [address] Dec, [facility] [place] [facility] [address] [id number] [place] [address] Dec, [facility] [place] [facility] [address] [id number] [place] [address] Dec, [facility] [place] [facility] [address] [id number] [place] [address] Dec, [facility] [place] [facility] [address] [id number] [place] [address] 2012 Dec, [facility] [place] [facility] [address] [id number] [place] [address] 2009 Dec, [facility] [place] [facility] [address] [id number] [place] [address] Dec, [facility] [place] [facility] [address] [id number] [place] [address] October, [facility] [place] [facility] [address] [id number] [place] [address] October, [facility] [place] [facility] [address] [id number] [place] [address] October, [facility] [place] [facility] [address] [id number] [place] [address] October, [facility] [place] [facility] [address] [id number] [place] [address] 4585 October, [facility] [place] [facility] [address] [id number] [place] [address] 3293 October, [facility] [place] [facility] [address] [id number] [place] [address] 77[address] Oct, [facility] [place] [facility] [address] [id number] [place] [address] 4076 Oct, [facility] [place] [facility] [address] [id number] [place] [address] 40[address] Oct, [facility] [place] [facility] [address] [id number] [place] [address] 5626 Oct, [facility] [place] [facility] [address] [id number] [place] [address] 6[address] Oct, [facility] [place] [facility] [address] [id number] [place] [address] 360[address] Oct, [facility] [place] [facility] [address] [id number] [place] [address] 24[address] Aug, [facility] [place] [facility] [address] [id number] [place] [address] 1745 Aug, [facility] [place] [facility] [address] [id number] [place] [address] 49[address] Aug, [facility] [place] [facility] [address] [id number] [place] [address] 2284 Aug, [facility] [place] [facility] [address] [id number] [address] Jul, [facility] [place] [facility] [address] [id number] [place] [address] Jul, [facility] [place] [facility] [address] [id number] [place] [address] 1367 Jul, [facility] [place] [facility] [address] [id number] [place] [address] 6[address] Jul, [facility] [place] [facility] [address] [id number] [place] [address] 7897 Jun, [facility] [address] [id number] [place] [address] Jun, [facility] [place] [facility] [address] [id number] [place] [address] Jun, [facility] [address] [id number] [place] [address] 1900 Jun, [facility] [place] [facility] [address] [id number] [place] [address]- 0735 Jun, [facility] [address] [id number] [place] [address] 3631 Jun, [facility] [address] [id number] [place] [address]100 Jun, [facility] [address] [id number] [place] [address] Jun, [facility] [address] [id number] [place] [address] 3[address] Jun, [facility] [place] [facility] [address] [id number] [place] [address] Jun, [facility] [address] [facility] [id number] [place] [address] 04 Jun, 2013 [facility] [place] [facility] [address] [id number] [place] [address]136 May, [facility] [place] [facility] [address] [id number] [place] [address] 5865 May, [facility] [place] [facility] [address] [id number] [place] [address] 7560 May, [facility] [place] [facility] [address] [id number] [place] [address] May, [facility] [place] [facility] [address] [id number] [place] [address]- 3512 May, [facility] [place] [facility] [address] [id number] [place] [address]- 0255 May, [facility] [place] [facility] [address] [id number] [place] [address] May, [facility] [place] [facility] [address] [id number] [place] [address] 1303 Apr, [facility] [place] [facility] [address] [id number] [place] [address] 4065 Apr, [facility] [place] [facility] [address] [id number] [place] [address]- 1205 Apr, [facility] [place] [facility] [address] [id number] [place] [address] 9857 Apr, [facility] [place] [facility] [address] [id number] [place] [address]- 1496 27 Mar, 2013 [facility] [place] [facility] [address] [id number] [place] [address]01 Mar, [facility] [place] [facility] [address] [id number] [place] [address]- 3755 Mar, [facility] [place] [facility] [address] [id number] [place] [address]- 4317 23 Mar, 2013 [facility] [place] [facility] [address] [id number] [place] [address] 6151 Mar, [facility] [place] [facility] [address] [id number] [place] [address] 0271 Mar, [facility] [place] [facility] [address] [id number] [place] [address] 1356 Jan, [facility] [place] [facility] [address] [id number] [place] [address]- 8581 Jan, [facility] [place] [facility] [address] [id number] [place] [address]- 9492 Jan, [facility] [place] [facility] [address] [id number] [place] [address]- 1247 Jan, [facility] [address] [id number] [place] [address] Jan, [facility] [place] [facility] [address] [id number] [place] [address]- 1178 Dec, [facility] [place] [facility] [address] [id number] [place] [address]- 5516 Dec, [facility] [place] [facility] [address] [id number] [place] [address] 2343 Dec, [facility] [place] [facility] [address] [id number] [place] [address] Dec, [facility] [place] [facility] [address] [id number] [place] [address]- 1670 Dec, [facility] [place] [facility] [address] [id number] [place] [address]- 5903 Dec, [facility] [place] [facility] [address] [id number] [place] [address]- 9607 Dec, [facility] [place] [facility] [address] [id number] [place] [address]- 5489 Dec, [facility] [place] [facility] [address] [id number] [place] [address]- 7604 October, [facility] [place] [facility] [address] [id number] [place] [address]- 2864 October, [facility] [place] [facility] [address] [id number] [place] [address]- 0582 October, [facility] [place] [facility] [address] [id number] [place] [address] 24 Oct, 2012 [facility] [place] [facility] [address] [id number] [place] [address] Oct, [facility] [place] [facility] [address] [id number] [place] [address] 17 Oct, 2012 [facility] [place] [facility] [address] [id number] [place] [address]- 3882 Oct, [facility] [place] [facility] [address] [id number] [place] [address]- 1665 Aug, [facility] [place] [facility] [address] [id number] [place] [address]- 9636 Aug, [facility] [place] [facility] [address] [id number] [place] [address]- 5566 Aug, [facility] [place] [facility] [address] [id number] [place] [address]- 2410 Jul, [facility] [place] [facility] [address] [id number] [place] [address]- 8897 May, [facility] [place] [facility] [address] [id number] [place] [address]- 9904 May, [facility] [place] [facility] [address] [id number] [place] [address]- 5580 Apr, [facility] [address] [id number] [place] [address]- 2939 Apr, [facility] [place] [facility] [address] [id number] [place] [address]- 7145 Apr, [facility] [address] [id number] [place] [address]- 6927 Apr, [facility] [place] [facility] [address] [id number] [place] [address]- 9190 Apr, [facility] [place] [facility] [address] [id number] [place] [address]- 0690 Apr, [facility] [place] [facility] [address] [id number] [place] [address] Apr, [facility] [place] [facility] [address] [id number] [place] [address]- 3828 Apr, [facility] [place] [facility] [address] [id number] [place] [address]- 3247 Apr, [facility] [place] [facility] [address] [id number] [place] [address]- 1954 Apr, [facility] [place] [facility] [address] [id number] [place] [address]- 9820 Apr, [facility] [place] [facility] [address] [id number] [place] [address]- 9354 Apr, [facility] [place] [facility] [address] [id number] [place] [address]- 9886 Mar, [facility] [place] [facility] [address] [id number] [place] [address]- 6628 Jan, [facility] [place] [facility] [address] [id number] [place] [address]- 9335 Dec, [facility] [place] [facility] [address] [id number] [place] [address]- 4890 October, [facility] [place] [facility] [address] [id number] [place] [address]- 0673 Oct, [facility] [place] [facility] [address] [id number] [place] [address]- 5996 Oct, [facility] [place] [facility] [address] [id number] [place] [address]- 2945 Oct, [facility] [place] [facility] [address] [id number] [place] [address]- 4185 Aug, [facility] [place] [facility] [address] [id number] [place] [address]- 8811 Aug, [facility] [place] [facility] [address] [id number] [place] [address]- 7062 Aug, [facility] [place] [facility] [address] [id number] [place] [address]- 8046 16 Aug, 2011 [facility] [place] [facility] [address] [id number] [place] [address]- 6770 15 Aug, 2011 [facility] [place] [facility] [address] [id number] [address] 02 Aug, 2011 [facility] [address] [address]- [address] Jun, [facility] [address] [address]- 9776 Apr, [facility] [address] [address]- 0828 Jun, [facility] [address] [address]- 2543 Jun, [facility] [address] [address]- 0508 May, [facility] [address] [address]- 7632 May, [facility] [address] [address]- 3114 Apr, [facility] [address] [id number] [address] 1412 Apr, IMMUNIZATIONS No Known Immunizations SOCIAL HISTORY Never Assessed REASON FOR VISIT Allergies STeposte CCMA PLAN OF CARE VITAL SIGNS MEDICATIONS Unknown Medications RESULTS No Results PROCEDURES Procedure Date Ordered Result Body Site IMMUNOTHERAPY, 2 OR MORE INJECTIONS 2016-12-23 N/A IMMUNOTHERAPY INJECTIONS December 23, 2016 INSTRUCTIONS MEDICATIONS ADMINISTERED No [...] above surgeries Hospitalization History Anaphylactic shock-[facility] 08/23/16
--- OUTSIDE RECORDS SUMMARY | 2018-07-18 07:53 | XMS REPORT ---
Author BALJEET Nolasco Organization [employer] Address Unknown Phone Unavailable Care Team Providers Care Vise Hand Name Role Phone BALJEET WILKINS CP Unavailable Allergies No Known Allergies Problems Problem Type Condition Code Onset Dates Condition Status Problem Nonspecific abnormal electrocardiogram (ECG) (EKG) 794.31 Active Problem PPV23 (PNEUMOVAX) DX V03.82 Active Problem MMR DX V06.4 Active Assessment Encounter for immunization Z23 Active Problem Asthma, unspecified, with (acute) exacerbation 493.92 Active Problem Need for prophylactic vaccination with tetanus toxoid alone V03.7 Active Problem Palpitations 785.1 Active Problem Allergic rhinitis due to pollen 477.0 Active Problem Urinary frequency 788.41 Active Problem Other and unspecified hyperlipidemia 272.4 Active Problem Polycystic ovaries 256.4 Active Medications No Known Medications Procedures Procedure Coding System Code Date MENINGOCOCCAL (MENVEO) CPT-4 56891 Apr 17, 2015 SINGLE IMMUNIZATION ADMIN CPT-4 08297 Apr 17, 2015 HEP A (ADULT) CPT-4 53900 Apr 17, 2015 IMMUNIZATION ADMIN, EACH ADD (please include units) CPT-4 85430 Apr 17, 2015 Results No Known Results Immunizations Vaccine Administration Date MENINGOCOCCAL (MENVEO) Apr 17, 2015 HEP A (ADULT) Apr 17, 2015 Summary Purpose [employer] Submission
--- OUTSIDE RECORDS SUMMARY | 2018-07-18 07:53 | XMS REPORT ---
Author Author SAGAR NAVA Organization [facility] Address [address] [place] [address] Care Team Providers Care Valet Runner Name Role Phone SAGAR NAVA Unavailable PROBLEMS Type Condition ICD9-CM Code [id number] Code Onset Dates Condition Status SNOMED Code Problem Gastroesophageal reflux disease without esophagitis K21.9 Active 499778824 Problem ADD (attention deficit disorder) F90.0 Active 100649852 Problem Acquired hypothyroidism E03.9 Active 338013856 Problem Current chronic use of inhaled steroid Z79.51 Active 378437171 Problem Asthma exacerbation J45.901 Active 822705967 Problem Pure hypercholesterolemia E78.00 Active 250341219 Problem Allergic rhinitis due to pollen J30.1 Active 15739472 Problem Multiple food allergies Z91.018 Active 374823950 Problem Dental examination Z01.20 Active 806983379 Problem Major depressive disorder, recurrent episode, mild F33.0 Active 440976862 Problem Uncomplicated severe persistent asthma J45.50 Active 247799670 Problem Migraine with aura and without status migrainosus, not intractable G43.109 Active 0354563 Problem Vitamin D deficiency E55.9 Active 48136602 Problem PCOS (polycystic ovarian syndrome) E28.2 Active 44084533 ALLERGIES Unknown Allergies SOCIAL HISTORY No smoking Hx information available PLAN OF CARE VITAL SIGNS MEDICATIONS Unknown Medications RESULTS No Results PROCEDURES Procedure Date Ordered Related Diagnosis Body Site IMMUNOTHERAPY, 2 OR MORE INJECTIONS 2016-06-30 N/A IMMUNOTHERAPY INJECTIONS Jun 30, 2016 IMMUNIZATIONS No Known Immunizations
--- OUTSIDE RECORDS SUMMARY | 2018-07-18 07:53 | XMS REPORT ---
Author Author SAGAR NAVA [employer] Address Unknown Phone Unavailable Care Team Providers Care Dampproofer Name Role Phone SAGAR NAVA CP Unavailable [...] Coding System Code Date IMMUNOTHERAPY INJECTIONS CPT-4 88800 January 07, 2016 Results No Known Results Summary Purpose [employer] Submission
--- OUTSIDE RECORDS SUMMARY | 2018-07-18 07:53 | XMS REPORT ---
Author Author SUKHDEV CARVER Organization [facility] Address [address] [place] [address] Care Team Providers Care Manager Target Name Role Phone SUKHDEV CARVER Unavailable PROBLEMS Type Condition ICD9-CM Code IIP76-RK Code Onset Dates Condition Status SNOMED Code Problem Migraine with aura and without status migrainosus, not intractable G43.109 Active 9959475 Problem PCOS (polycystic ovarian syndrome) E28.2 Active 52748325 Problem Uncomplicated severe persistent asthma J45.50 Active 676470371 Problem Severe persistent asthma with exacerbation J45.51 Active 229611013 Problem Other elevated white blood cell (WBC) count D72.828 Active 005967533 Problem Multiple food allergies Z91.018 Active 722032155 Problem Pure hypercholesterolemia E78.00 Active 078986616 Problem Current chronic use of inhaled steroid Z79.51 Active 298633957 Problem Asthma exacerbation J45.901 Active 440174583 Problem ADD (attention deficit disorder) F90.0 Active 980783731 Problem Allergic rhinitis due to pollen J30.1 Active 21480432 Problem Vitamin D deficiency E55.9 Active 69096506 Problem Major depressive disorder, recurrent episode, mild F33.0 Active 791190470 Problem Acquired hypothyroidism E03.9 Active 955647391 Problem Gastroesophageal reflux disease without esophagitis K21.9 Active 061837035 ALLERGIES No Information ENCOUNTERS Encounter Location Date Diagnosis [facility] [address] [address] Dec, [facility] [id number] [place] [address] 59519- 7184 October, Allergic rhinitis due to pollen J30.1 [facility] [address], [place] [address] October, Allergic rhinitis due to pollen J30.1 [facility] [id number] [place] [address] 36626- 0169 Oct, [place] [address] 43502- 4621 Oct, Allergic rhinitis due to pollen J30.1 [place] [id number] [place] [address] 39595- 1507 Oct, [place] [address] 17935- 9593 Oct, Allergic rhinitis due to pollen J30.1 [place] [id number] [place] [address] 11395- 1008 Oct, Severe persistent asthma with exacerbation J45.51 and Pneumonia due to Haemophilus influenzae, unspecified laterality, unspecified part of lung J14 [place] [id number] [place] [address] 81818- 4441 Oct, ADD (attention deficit disorder) F90.0 [place] [id number] [place] [address] 65833- 1741 Aug, Haemophilus influenzae infection A49.2 [place] [address] 84679- 7244 Aug, Cough productive of purulent sputum R05 [place] [id number] [place] [address] 97306- 3929 Aug, [place] [id number] [place] [address] 45753- 0982 Aug, Pulmonary congestion R09.89 [place] [id number] [place] [address] 07969- 2386 Aug, Severe persistent asthma with exacerbation J45.51 ; Hiatal hernia K44.9 and Gastroesophageal reflux disease without esophagitis K21.9 [place] [id number] [place] [address] 41116- 9275 Aug, Other elevated white blood cell (WBC) count D72.828 [place] [address] 14874- 2832 Aug, Uncomplicated severe persistent asthma J45.50 [facility] [address] [id number]- 7857 Aug, Pure hypercholesterolemia E78.00 ; Uncomplicated severe persistent asthma J45.50 and Acquired hypothyroidism E03.9 [facility] [address] 91824- 0462 Aug, Acquired hypothyroidism E03.9 ; Pure hypercholesterolemia E78.00 and Uncomplicated severe persistent asthma J45.50 [place] [address] 834378- 5882 15 Aug, 2017 Allergic rhinitis due to pollen J30.1 [place] [address] 77626- 8877 Aug, Allergic rhinitis due to pollen J30.1 [place] [address] 33390- 5749 Aug, [facility] [address] [id number] Jul, Pharyngitis, unspecified etiology J02.9 and Lymphadenopathy R59.1 [place] [address] 00967- 5157 Jul, ADD (attention deficit disorder) F90.0 [place] [address] 92836- 0481 Jul, Allergic rhinitis due to pollen J30.1 [place] [address] 98999- 3630 Jul, Dental examination Z01.20 [facility] [address] 51045- 8897 Jun, Cough productive of purulent sputum R05 [place] [address] 83014- 7560 Jun, Allergic rhinitis due to pollen J30.1 [place] [address] [place] [address] 64321- 4532 Jun, [place] [id number] [place] [address] 62716- 9355 Jun, Allergic rhinitis due to pollen J30.1 [place] [id number] [place] [address] 24464- 6103 Jun, Allergic rhinitis due to pollen J30.1 [place] [id number] [place] [address] 30683- 1436 May, Allergic rhinitis due to pollen J30.1 [place] [id number] [place] [address] 59639- 4899 May, Pneumonia due to Haemophilus influenzae, unspecified laterality, unspecified part of lung J14 [place] [address] 73169- 4088 May, Allergic rhinitis due to pollen J30.1 [place] [id number] [place] [address] 42660- 1936 May, Other adverse food reactions, not elsewhere classified, initial encounter T78.1XXA and Pneumonia due to Haemophilus influenzae, unspecified laterality, unspecified part of lung J14 [place] [id number] [place] [address] 59228- 8934 May, Pneumonia due to Haemophilus influenzae, unspecified laterality, unspecified part of lung J14 [place] [id number] [place] [address] 79277- 9645 May, Multiple food allergies Z91.018 ; Uncomplicated severe persistent asthma J45.50 ; Cough productive of purulent sputum R05 and Uses central nervous system stimulants F15.90 [place] [id number] [place] [address] 44758- 4005 Apr, Allergic rhinitis due to pollen J30.1 [place] [address] 77873- 5149 Apr, Allergic rhinitis due to pollen J30.1 [place] [address] 08188- 6797 Apr, Allergic rhinitis due to pollen J30.1 [place] [address] 96839- 1510 11 Apr, 2017 ADD (attention deficit disorder) F90.0 [place] [address] 05781- 1873 28 Mar, 2017 Allergic rhinitis due to pollen J30.1 [place] [address] 14011- 7532 21 Mar, 2017 Encounter for immunization Z23 [place] [address] 24832- 3774 19 Mar, 2017 [place] [address] 71240- 5443 14 Mar, 2017 Allergic rhinitis due to pollen J30.1 [place] [address] 57370- 6938 07 Mar, 2017 Allergic rhinitis due to pollen J30.1 [place] [address] 59625- 2886 Jan, Allergic rhinitis due to pollen J30.1 [place] [address] 99475- 6558 Jan, Allergic rhinitis due to pollen J30.1 [place] [address] 02897- 7006 Dec, Uncomplicated severe persistent asthma J45.50 [place] [address] 23101- 5768 Dec, Allergic rhinitis due to pollen J30.1 [place] [address] 45438- 8330 Dec, Allergic rhinitis due to pollen J30.1 [place] [address] [address] 2743 Dec, Allergic rhinitis due to pollen J30.1 [place] [id number] [place] [address] 72693- 3833 Dec, ADD (attention deficit disorder) F90.0 [place] [id number] [place] [address] 37674- 8065 Dec, Allergic rhinitis due to pollen J30.1 [place] [id number] [place] [address] 83546- 1693 Dec, Visit for TB skin test Z11.1 and Screening for tuberculosis Z11.1 [place] [id number] [place] [address] 15281- 7287 Dec, Uncomplicated severe persistent asthma J45.50 ; Palpitations R00.2 ; Pericardial effusion (noninflammatory) I31.3 and Chest discomfort R07.89 [place] [id number] [place] [address] 16597- 5254 Dec, Allergic rhinitis due to pollen J30.1 [place] [id number] [place] [address] 36206- 3676 Dec, Chronic cough R05 [place] [id number] [place] [address] 26411- 3159 Dec, [place] [id number] [place] [address] 30003- 4415 Dec, Allergic rhinitis due to pollen J30.1 [place] [id number] [place] [address] 72285- 7804 Dec, Allergic rhinitis due to pollen J30.1 [place] [address] [place] [address] 00147- 1066 Dec, Chronic cough R05 [place] [id number] [place] [address] 78152- 1273 October, Allergic rhinitis due to pollen J30.1 [facility] [id number] [place] [address] 27133- 9109 October, Allergic rhinitis due to pollen J30.1 [facility] [id number] [place] [address] 51946- 8663 October, [place] [address] 39215- 6723 October, Asthma exacerbation J45.901 [place] [id number] [place] [address] 46020- 4908 October, Asthma exacerbation J45.901 and Current chronic use of inhaled steroid Z79.51 [place] [id number] [place] [address] 92671- 7537 October, Uncomplicated severe persistent asthma J45.50 [place] [id number] [place] [address] 22594- 5926 October, Allergic rhinitis due to pollen J30.1 [place] [id number] [place] [address] 45302- 0729 Oct, [place] [id number] [place] [address] 40075- 1447 Oct, Asthma exacerbation J45.901 and Sputum production R05 [place] [id number] [place] [address] 12067- 0676 Oct, Asthma exacerbation J45.901 [place] [id number] [place] [address] 63137- 9530 Oct, ADD (attention deficit disorder) F90.0 [place] [address] 83194- 5728 Oct, ADD (attention deficit disorder) F90.0 [place] [id number] [place] [address] 26397- 7043 Aug, Allergic rhinitis due to pollen J30.1 [place] [id number] [place] [address] 72744- 0679 Aug, Atypical pneumonia J18.9 [place] [address] 00693- 1829 Aug, Allergic rhinitis due to pollen J30.1 [place] [address] 27925- 8361 Aug, Acquired hypothyroidism E03.9 [place] [address] 39599- 1247 Aug, Multiple food allergies Z91.018 ; Elevated blood pressure reading R03.0 and Anaphylaxis, subsequent encounter T78.2XXD [place] [address] [place] [id number] Aug, [address] 60340- 6557 Aug, Anaphylaxis, initial encounter T78.2XXA [place] [address] 01201- 2070 Aug, Allergic rhinitis due to pollen J30.1 [place] [address] 67395- 5556 Aug, Dental examination Z01.[address] 68732- 7057 Aug, Allergic rhinitis due to pollen J30.1 [place] [address] 77802- 9524 Aug, Acquired hypothyroidism E03.9 and Pure hypercholesterolemia E78.[address] 89332- 0185 Aug, ADD (attention deficit disorder) F90.0 ; Acquired hypothyroidism E03.9 and Pure hypercholesterolemia E78.00 [place] [address] 27802- 3887 Aug, Asthma exacerbation J45.901 [facility] [id number] [place] [address] 17788- 6555 Jul, Allergic rhinitis due to pollen J30.1 [facility] [address] [place] [address] 59375- 0496 Jul, Allergic rhinitis due to pollen J30.1 [facility] [id number] [place] [address] 48891- 9201 Jul, [place] [id number] [place] [address] 51277- 0410 Jul, Allergic rhinitis due to pollen J30.1 [place] [id number] [place] [address] 47333- 1568 Jul, Other prison (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 and ADD ( attention deficit disorder) F90.0 [place] [id number] [place] [address] 76973- 0429 Jul, Other prison (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 and ADD ( attention deficit disorder) F90.0 [place] [id number] [place] [address] 05595- 1277 Jul, [place] [id number] [place] [address] 16369- 4279 Jun, Allergic rhinitis due to pollen J30.1 [facility] [address] [place] [address] 41089- 5486 Jun, Allergic rhinitis due to pollen J30.1 [facility] [address] [place] [address] 09566- 6144 Jun, [place] [id number] [place] [address] 87679- 2605 May, Allergic rhinitis due to pollen J30.1 [place] [address] [place] [address] 77509- 7564 May, Allergic rhinitis due to pollen J30.1 [place] [id number] [place] [address] 90049- 4379 Apr, Allergic rhinitis due to pollen J30.1 [place] [id number] [place] [address] 84004- 6021 Apr, Allergic rhinitis due to pollen J30.1 [place] [address] 98526- 2285 Apr, Encounter for immunization Z23 [place] [address] 79103- 9981 Apr, [place] [address] 75129- 2269 Mar, Allergic rhinitis due to pollen J30.1 [place] [id number] [place] [address] 00155- 8669 Mar, Multiple allergies Z88.9 [place] [address] 25349- 8060 Mar, Candidal vaginitis B37.3 [place] [address] 56630- 6241 Mar, Allergic rhinitis due to pollen J30.1 [place] [id number] [place] [address] 25397- 5245 Jan, Asthma exacerbation J45.901 ; Fatigue, unspecified type R53.83 and Community acquired pneumonia J18.9 [facility] [id number] [place] [address] [id number] Jan, Encounter for dental examination Z01.20 [place] [address] 37187- 3898 Jan, Allergic rhinitis due to pollen J30.1 [place] [id number] [place] [address] 79418- 5864 Dec, Allergic rhinitis due to pollen J30.1 [place] [address] [facility] [id number], [place] [address]- 8069 Dec, [facility] [address] [facility] [id number], [place] [address]- 5111 Dec, Allergic rhinitis due to pollen J30.1 [facility] [address] [facility] [id number], [place] [address]- 8308 Dec, [facility] [address] [facility] [id number], [place] [address]- 0476 Dec, [facility] [address] [facility] [id number], [place] [address]- 6484 Dec, [facility] [address] [facility] [id number], [place] [address]- 0993 Dec, Allergic rhinitis due to pollen J30.1 [facility] [address], [place] [address]- 1542 Dec, [facility] [id number], [place] [address]- 4149 Dec, [facility] [address], [place] [address]- 2732 Dec, Allergic rhinitis due to pollen J30.1 [facility] [id number], [place] [address]- 3713 October, Allergic rhinitis due to pollen J30.1 [facility] [id number], [place] [address]- 7804 October, Allergic rhinitis due to pollen J30.1 [facility] [address] [facility] [id number], [place] [address]- 6499 October, [facility] [id number], [place] [address]- 2073 October, [facility] [id number], [place] [address]- 6113 October, ADD (attention deficit disorder) F90.0 ; Major depressive disorder, recurrent episode, mild F33.0 and Uncomplicated severe persistent asthma J45.50 [place] [id number] [place] [address] 93466- 6705 Oct, Allergic rhinitis due to pollen J30.1 [place] [id number] [place] [address] 30750- 6608 14 Oct, 2015 ADD (attention deficit disorder) F90.0 [place] [address] 43826- 1938 06 Oct, 2015 Allergic rhinitis due to pollen 477.0 [place] [address] 06936- 0865 Aug, Allergic rhinitis due to pollen 477.0 [place] [address] 89619- 7830 Aug, 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 [place] [address] 39081- 9518 Aug, [place] [id number] [place] [address] 46761- 4373 Aug, Allergic rhinitis due to pollen 477.0 [place] [id number] [place] [address] 53535- 4296 Aug, Allergic rhinitis due to pollen 477.0 [place] [id number] [place] [address] 41005- 5777 Aug, Allergic rhinitis due to pollen 477.0 [place] [id number] [place] [address] 61597- 3120 Aug, Exposure to influenza Z20.828 [facility] [id number] [place] [address] [id number] Aug, Encounter for dental examination and cleaning without abnormal findings Z01.20 [facility] [id number] [place] [address] 27188- 0332 18 Aug, 2015 Allergic rhinitis due to pollen J30.1 [place] [id number] [place] [address] 94926- 6658 Aug, [place] [id number] [place] [address] 85739- 8468 Aug, 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 [place] [id number] [place] [address] 67227- 5839 Jul, [place] [id number] [place] [address] 40631- 4009 Jul, Allergic rhinitis due to pollen 477.0 [place] [address] 39246- 4906 Jul, [place] [address] 38680- 4762 Jul, Allergic rhinitis due to pollen 477.0 [place] [address] 17309- 2402 Jun, ADD (attention deficit disorder) F90.0 ; Acquired hypothyroidism E03.9 ; PCOS (polycystic ovarian syndrome) E28.2 ; Polyarthralgia M25.50 and On stimulant medication Z79.899 [place] [id number] [place] [address] 53120- 1583 Apr, Encounter for immunization Z23 [place] [address] 80792- 3028 16 Mar, 2015 Allergic rhinitis due to pollen 477.0 [place] [id number] [place] [address] 16895- 1493 14 Mar, 2015 Influenza vaccine administered V04.81 [place] [address] 23451- 3031 03 Mar, 2015 [place] [id number] [place] [address] 57721- 1477 Jan, Allergic rhinitis due to pollen 477.0 [place] [address] [facility] [id number], [place] [address]- 9893 Jan, Allergic rhinitis due to pollen 477.0 [facility] [address], [place] [address]- 2790 Jan, Allergic rhinitis due to pollen 477.0 [facility] [address] [id number] Jan, Dental examination V72.2 [facility] [id number] [place] [address] 21666- 9942 Dec, Allergic rhinitis due to pollen 477.0 [facility] [address] [place] [address] 91633- 9751 October, [facility] [address] [place] [address] 56800- 5068 Oct, [facility] [id number] [place] [address] 72533- 9549 Oct, [facility] [address], [place] [address]- 3236 Aug, [facility] [address], [place] [address]- 7353 Aug, [facility] [address], [place] [address]- 0761 Aug, [facility] [address], [place] [address]- 3651 Aug, [facility] [address], [place] [address]- 1358 Aug, [facility] [address], [place] [address]- 3986 Aug, [facility] [address] 1478 Aug, [facility] [address], [place] [address]- 2347 Aug, [facility] [place] [facility] [address] [id number] [place] [address]- 3356 Jul, [facility] [place] [facility] [address] [id number] [place] [address]- 8814 Jul, [facility] [place] [facility] [address] [id number] [place] [address]- 8689 Jul, [facility] [place] [facility] [address] [id number] [place] [address]- 1788 Jul, [facility] [place] [facility] [address] [id number] [place] [address]- 6264 Jul, [facility] [place] [facility] [address] [id number] [place] [address]- 9828 Jul, [facility] [place] [facility] [address] [id number] [place] [address]- 2552 Jul, [facility] [place] [facility] [address] [id number] [place] [address]- 6634 Jul, [facility] [place] [facility] [address] [id number] [place] [address]- 5365 Jul, [facility] [place] [facility] [address] [id number] [place] [address] Jul, [facility] [place] [facility] [address] [id number] [place] [address] Jul, [facility] [place] [facility] [address] [id number] [place] [address] Jun, [facility] [place] [facility] [address] [id number] [place] [address] Jun, [facility] [place] [facility] [address] [id number] [place] [address] Jun, [facility] [place] [facility] [address] [id number] [place] [address] Jun, [facility] [place] [facility] [address] [id number] [place] [address] Jun, [facility] [place] [facility] [address] [id number] [place] [address] Jun, [facility] [place] [facility] [address] [id number] [place] [address] May, [facility] [place] [facility] [address] [id number] [place] [address] May, [facility] [place] [facility] [address] [id number] [place] [address] May, [facility] [place] [facility] [address] [id number] [place] [address] May, [facility] [place] [facility] [address] [id number] [place] [address] May, [facility] [place] [facility] [address] [id number] [place] [address] May, [facility] [place] [facility] [address] [id number] [place] [address] Apr, [facility] [place] [facility] [address] [id number] [place] [address] Apr, [facility] [place] [facility] [address] [id number] [place] [address] 30 Mar, 2014 [facility] [place] [facility] [address] [id number] [place] [address] 30 Mar, 2013 [facility] [place] [facility] [address] [id number] [place] [address] 30 Mar, 2013 [facility] [place] [facility] [address] [id number] [place] [address] 30 Mar, 2013 [facility] [facility] [address] [id number] [place] [address] 19 Mar, 2014 [facility] [place] [facility] [address] [id number] [place] [address] Mar, [facility] [place] [facility] [address] [id number] [place] [address] Jan, [facility] [place] [facility] [address] [id number] [place] [address] Jan, [facility] [place] [facility] [address] [id number] [place] [address] Jan, [facility] [place] [facility] [address] [id number] [place] [address] Jan, [facility] [place] [facility] [address] [id number] [place] [address] Jan, [facility] [place] [address] [id number] [place] [address] 59[address] Jan, [facility] [place] [facility] [address] [id number] [place] [address]10 Dec, [facility] [place] [facility] [address] [id number] [place] [address] 9693 Dec, [facility] [place] [facility] [address] [id number] [place] [address] 2427 Dec, [facility] [place] [facility] [address] [id number] [place] [address] Dec, [facility] [place] [facility] [address] [id number] [place] [address] 3[address] Dec, [facility] [place] [facility] [address] [id number] [place] [address] 8101 Dec, [facility] [place] [facility] [address] [id number] [place] [address]- 2505 Dec, [facility] [place] [address] [id number] [place] [address] 7299 Dec, [facility] [place] [facility] [address] [id number] [place] [address]- 9908 Dec, [facility] [place] [facility] [address] [id number] [place] [address]- 7097 Dec, [facility] [address] [id number] [place] [address] 8170 Dec, [facility] [address] [id number] [place] [address]- 1777 Dec, [facility] [facility] [address] [id number] [place] [address]- [address] Dec, [facility] [address] [id number] [place] [address]- 1199 Dec, [facility] [address] [id number] [place] [address]- 8810 Dec, [facility] [address] [id number] [place] [address]- 3192 Dec, [facility] [address] [id number] [place] [address]- 2971 October, [facility] [place] [facility] [address] [id number] [place] [address]- 6385 October, [facility] [address] [id number] [place] [address]- [address]128 October, [facility] [address] [id number] [place] [address]- 4267 October, [facility] [facility] [address] [id number] [place] [address]- 68[address] October, [facility] [address] [id number] [place] [address]- 5817 October, [facility] [address] [id number] [place] [address]- 5642 Oct, [facility] [address] [id number] [place] [address] 0053 Oct, [facility] [address] [id number] [place] [address]- 0102 Oct, [facility] [address] [id number] [place] [address] 2161 17 Oct, 2013 [facility] [address] [id number] [place] [address] 0895 Oct, [facility] [address] [id number] [place] [address] 4817 Oct, [facility] [address] [id number] [place] [address]- 5297 Aug, [facility] [address] [id number] [place] [address] 0530 Aug, [facility] [address] [id number] [place] [address]- 7134 Aug, [facility] [address] [id number] [place] [address]- 9520 Aug, [facility] [address] [id number] [place] [address]- 6265 Jul, [facility] [address] [id number] [place] [address]- 7889 Jul, [facility] [address] [id number] [place] [address] 6507 Jul, [facility] [address] [id number] [place] [address] 8995 Jul, [facility] [address] [id number] [place] [address]- 2175 Jun, [facility] [address] [id number] [place] [address]- 6669 Jun, [facility] [address] [id number] [place] [address]- 4208 Jun, [facility] [address] [id number] [place] [address]- 2126 Jun, [facility] [address] [id number], [place] [address] 8916 Jun, [facility] [address] [id number] [place] [address] Jun, [facility] [address] [id number] [place] [address]- 0569 Jun, [facility] [address] [facility] [id number] [place] [address]- 8587 Jun, [facility] [address] [id number], [place] [address]287 Jun, [facility] [address] [id number] [place] [address]- 6294 Jun, [facility] [address] [id number] [place] [address]- 8163 Jun, [facility] [address] [id number], [place] [address] 8274 May, [facility] [address] [id number], [place] [address] 3413 May, [facility] [address] [id number], [place] [address] 0339 May, [facility] [address] [id number], [place] [address]- 6675 May, [facility] [address] [id number], [place] [address]- 1095 May, [facility] [address] [id number], [place] [address] 3629 May, [facility] [address] [id number], [place] [address]- 8845 May, [facility] [address] [facility] [id number], [place] [address]- 8819 Apr, [facility] [address] [id number], [place] [address]- 2541 Apr, [facility] [address] [id number] [place] [address]- 7126 18 Apr, 2013 [facility] [address] [id number] [place] [address]- 4961 Apr, [facility] [address] [id number] [place] [address] 2546 27 Mar, 2013 [facility] [address] [id number] [place] [address]- 2276 Mar, 2012 [facility] [address] [id number] [place] [address] 2543 Mar, [facility] [address] [id number] [place] [address]- 5002 Mar, [facility] [address] [id number] [place] [address]- 4450 Mar, [facility] [address] [id number] [place] [address]- 7576 Mar, [facility] [address] [id number] [place] [address]- 5188 Jan, [facility] [address] [id number] [place] [address]- 1759 Jan, [facility] [address] [id number] [place] [address]- 4627 Jan, [facility] [address] [id number] [place] [address] 2542 Jan, [facility] [address] [id number] [place] [address]- 2548 Jan, [facility] [address] [id number] [place] [address]- 6400 Dec, [facility] [address] [id number] [place] [address] 2544 Dec, [facility] [address] [id number] [place] [address]- 4140 Dec, [facility] [address] [id number] [place] [address]- 9242 Dec, [facility] [address] [id number] [place] [address]- 6339 Dec, [facility] [address] [id number] [place] [address]- 7828 Dec, [facility] [address] [id number] [place] [address]- 7702 Dec, [facility] [address] [id number] [place] [address]- 6874 Dec, [facility] [address] [id number] [place] [address]- 8910 October, [facility] [address] [id number] [place] [address]- 8915 October, [facility] [address] [id number] [place] [address]- 6866 October, [facility] [address] [id number] [place] [address]- 3970 Oct, [facility] [address] [id number] [place] [address]- 8657 Oct, [facility] [address] [id number] [place] [address]- 1724 Oct, [facility] [address] [id number], [place] [address]- 0511 Oct, [facility] [address] [id number] [place] [address]- 2169 Aug, [facility] [address] [id number] [place] [address]- 6676 Aug, [facility] [address] [id number], [place] [address]- 3519 05 Aug, 2012 [facility] [address] [id number], [place] [address]- 3077 Jul, [facility] [address] [id number] [place] [address]- 4188 May, [facility] [address] [id number] [place] [address]- 9328 May, [facility] [address] [facility] [id number] [place] [address]- 5188 Apr, [facility] [address] [id number] [place] [address]- 0154 Apr, [facility] [address] [id number] [place] [address]- 7573 Apr, [facility] [address] [id number] [place] [address]- 6598 Apr, [facility] [address] [facility] [id number] [place] [address]- 0219 Apr, [facility] [address] [id number] [place] [address]- 6679 Apr, [facility] [address] [facility] [id number] [place] [address]- 6771 Apr, [facility] [address] [facility] [id number] [place] [address]- 6162 Apr, [facility] [address] [facility] [id number], [place] [address]- 4902 Apr, [facility] [address] [facility] [id number], [place] [address]- 6578 Apr, [facility] [address] [id number] [place] [address]- 1409 14 Apr, 2012 [facility] [address] [facility] [id number], [place] [address]- 3694 Apr, [facility] [address] [facility] [id number] [place] [address]- 9085 17 Mar, 2012 [facility] [address] [id number] [place] [address]- 2559 Jan, [facility] [address] [id number] [place] [address]- 6900 Dec, [facility] [address] [id number] [place] [address]- 4994 October, [facility] [address] [id number] [place] [address]- 9329 Oct, [facility] [address] [id number] [place] [address]- 4639 Oct, [facility] [address] [id number] [place] [address]- 0271 Oct, [facility] [address] [id number] [place] [address]- 9147 Aug, [facility] [address] [id number] [place] [address]- 0311 Aug, [facility] [address] [id number] [place] [address]- 5103 Aug, [facility] [address] [id number] [place] [address]- 6597 Aug, [facility] [address] [id number] [place] [address]- 4867 Aug, [facility] [place] [address] [id number] [place] [address]- 9019 Aug, [facility] [place] [facility] [address] [id number] [place] [address] Jun, [facility] [address] [id number] [place] [address]- 9504 Apr, [facility] [address] [id number] [place] [address]- 8313 Jun, [facility] [address] [id number], [place] [address]- 7826 Jun, [facility] [address] [facility] [id number] [place] [address]- 2546 May, [facility] [address] [id number], [place] [address]- 2546 May, [facility] [address] [facility] [id number], [place] [address]- 2546 Apr, [facility] [address] [facility] [id number], [place] [address]- 2546 Apr, IMMUNIZATIONS No Known Immunizations SOCIAL HISTORY Never Assessed REASON FOR VISIT Tamiflu Rx PLAN OF CARE VITAL SIGNS MEDICATIONS Medication Instructions Dosage Frequency Start Date End Date Duration Status Oseltamivir Phosphate 75 MG Orally once a day 1 capsule 24h Jun, 10 days Active Zofran ODT 8 MG Orally every 8 hours as needed for nausea/vomiting 1 tablet Jun, Active RESULTS No Results PROCEDURES No Known [...] see above surgeries Hospitalization History Anaphylactic shock-[facility] 08/23/16
--- OUTSIDE RECORDS SUMMARY | 2018-07-18 07:53 | XMS REPORT ---
Author Author WILL RODRIGEZ [facility] [place] eClinical[employer] Address Unknown Phone Unavailable Care Team Providers Care Dry House Operator Name Role Phone WILL RODRIGEZ CP Unavailable Allergies No Known Allergies Problems Problem Type Condition ICD-9 Code Onset Dates Condition Status Problem Nonspecific abnormal electrocardiogram (ECG) (EKG) 794.31 Active Problem PPV23 (PNEUMOVAX) DX V03.82 Active Problem MMR DX V06.4 Active Problem Asthma, unspecified, with (acute) exacerbation 493.92 Active Problem Need for prophylactic vaccination with tetanus toxoid alone V03.7 Active Problem Palpitations 785.1 Active Problem Allergic rhinitis due to pollen 477.0 Active Problem Urinary frequency 788.41 Active Problem Other and unspecified hyperlipidemia 272.4 Active Problem Polycystic ovaries 256.4 Active Medications Medication Code System Code Instructions Start Date End Date Status Dosage Nasonex [facility] [address]-01 50 mcg/actuation Feb 24, 2014 1 sprays by Nasal route 2 times per day in each nostril Results No Known Results Summary Purpose eClinical[employer] Submission
--- OUTSIDE RECORDS SUMMARY | 2018-07-18 07:53 | XMS REPORT ---
Author Author SAGAR NAVA Organization [facility] Address [address] [place] [address] Care Team Providers Care Housing Specialist Name Role Phone BRANDYTEZSAGAR Unavailable PROBLEMS Type Condition ICD9-CM Code JFI99-CM Code Onset Dates Condition Status SNOMED Code Problem Uncomplicated severe persistent asthma J45.50 Active 441720986 Problem PCOS (polycystic ovarian syndrome) E28.2 Active 05035093 Problem Migraine with aura and without status migrainosus, not intractable G43.109 Active 3428492 Assessment Allergic rhinitis due to pollen J30.1 Mar, Active 04291725 Problem Vitamin D deficiency E55.9 Active 45162036 Problem Major depressive disorder, recurrent episode, mild F33.0 Active 909522682 Problem Asthma exacerbation J45.901 Active 084931283 Problem Encounter for dental examination Z01.20 Active 234274992 Problem Acquired hypothyroidism E03.9 Active 408799876 Problem Gastroesophageal reflux disease without esophagitis K21.9 Active 611210153 Problem Allergic rhinitis due to pollen J30.1 Active 20685143 Problem ADD (attention deficit disorder) F90.0 Active 333912168 ALLERGIES Unknown Allergies SOCIAL HISTORY No smoking Hx information available PLAN OF CARE Activity Details Future/Pending Procedure IMMUNOTHERAPY, 2 OR MORE INJECTIONS ,Reason: VITAL SIGNS MEDICATIONS Unknown Medications RESULTS No Results PROCEDURES Procedure Date Ordered Related Diagnosis Body Site IMMUNOTHERAPY INJECTIONS Mar 10, 2016 IMMUNIZATIONS No Known Immunizations
--- OUTSIDE RECORDS SUMMARY | 2018-07-18 07:54 | XMS REPORT ---
Author Author BRANDY SAGAR Organization [facility] Address [address] [place] [address] Care Team Providers Care Post Doc Fellowship Name Role Phone SAGAR NAVA Unavailable PROBLEMS Type Condition ICD9-CM Code XNB11-XI Code Onset Dates Condition Status SNOMED Code Problem ADD (attention deficit disorder) F90.0 Active 152814450 Problem Major depressive disorder, recurrent episode, mild F33.0 Active 957392162 Problem Allergic rhinitis due to pollen J30.1 Active 98718891 Problem Current chronic use of inhaled steroid Z79.51 Active 957775862 Problem Asthma exacerbation J45.901 Active 572645762 Problem Pure hypercholesterolemia E78.00 Active 985690190 Problem PCOS (polycystic ovarian syndrome) E28.2 Active 97216160 Problem Multiple food allergies Z91.018 Active 329427043 Problem Dental examination Z01.20 Active 355394579 Problem Uncomplicated severe persistent asthma J45.50 Active 019583132 Problem Gastroesophageal reflux disease without esophagitis K21.9 Active 596448839 Problem Migraine with aura and without status migrainosus, not intractable G43.109 Active 5780681 Problem Vitamin D deficiency E55.9 Active 44366232 Problem Acquired hypothyroidism E03.9 Active 414417498 ALLERGIES No Information SOCIAL HISTORY Never Assessed PLAN OF CARE Activity Details Future/Pending Procedure IMMUNOTHERAPY, 2 OR MORE INJECTIONS VITAL SIGNS MEDICATIONS Unknown Medications RESULTS No Results PROCEDURES Procedure Date Ordered Result Body Site IMMUNOTHERAPY INJECTIONS November 25, 2016 IMMUNIZATIONS No Known Immunizations MEDICAL (GENERAL) [...] History see above surgeries Hospitalization History Anaphylactic shock-[facility] 08/23/16
--- OUTSIDE RECORDS SUMMARY | 2018-07-18 07:55 | XMS REPORT ---
Author Author BRANDY SAGAR [facility] Address [address] [place] [address] Care Team Providers Care Speech Therapist Technician Name Role Phone TEZ NAVAHANY Unavailable PROBLEMS Type Condition ICD9-CM Code FZO53-QC Code Onset Dates Condition Status SNOMED Code Problem Migraine with aura and without status migrainosus, not intractable G43.109 Active 2452928 Problem PCOS (polycystic ovarian syndrome) E28.2 Active 01124913 Problem Uncomplicated severe persistent asthma J45.50 Active 030396787 Problem Severe persistent asthma with exacerbation J45.51 Active 906541489 Problem Other elevated white blood cell (WBC) count D72.828 Active 847504764 Problem Multiple food allergies Z91.018 Active 222313080 Problem Pure hypercholesterolemia E78.00 Active 527721068 Problem Current chronic use of inhaled steroid Z79.51 Active 890075103 Problem Asthma exacerbation J45.901 Active 581477551 Problem ADD (attention deficit disorder) F90.0 Active 112527953 Problem Allergic rhinitis due to pollen J30.1 Active 24666782 Problem Vitamin D deficiency E55.9 Active 92146816 Problem Major depressive disorder, recurrent episode, mild F33.0 Active 778087848 Problem Acquired hypothyroidism E03.9 Active 271284740 Problem Gastroesophageal reflux disease without esophagitis K21.9 Active 924062479 ALLERGIES No Information ENCOUNTERS Encounter Location Date Diagnosis [facility] [id number], [place] [address] Dec, [facility] [id number] [place] [address] 99853- 4795 Oct, Allergic rhinitis due to pollen J30.1 [facility] [id number], [place] [address] Oct, [facility] [address] [place] [address] 32976- 6183 Oct, Allergic rhinitis due to pollen J30.1 [place] [address] 20275- 6626 Oct, Severe persistent asthma with exacerbation J45.51 and Pneumonia due to Haemophilus influenzae, unspecified laterality, unspecified part of lung J14 [place] [address] 65412- 5898 Oct, ADD (attention deficit disorder) F90.0 [place] [address] 88877- 7303 Aug, Haemophilus influenzae infection A49.2 [place] [address] 24147- 7324 Aug, Cough productive of purulent sputum R05 [address] 35535- 6408 Aug, [place] [address] 13718- 5347 Aug, Pulmonary congestion R09.[address] 21920- 9289 Aug, Severe persistent asthma with exacerbation J45.51 ; Hiatal hernia K44.9 and Gastroesophageal reflux disease without esophagitis K21.9 [place] [address] 47733- 1731 Aug, Other elevated white blood cell (WBC) count D72.828 [place] [address] 52057- 9984 Aug, Uncomplicated severe persistent asthma J45.50 [place] [address] 03759- 4694 Aug, Pure hypercholesterolemia E78.00 ; Uncomplicated severe persistent asthma J45.50 and Acquired hypothyroidism E03.9 [place] [address] 26306- 5829 Aug, Acquired hypothyroidism E03.9 ; Pure hypercholesterolemia E78.00 and Uncomplicated severe persistent asthma J45.50 [place] [address] 29364- 4394 15 Aug, 2017 Allergic rhinitis due to pollen J30.1 [place] [address] 05947- 9142 08 Aug, 2017 Allergic rhinitis due to pollen J30.1 [place] [address] 05312- 4243 Aug, [place] [address] [id number] Jul, Pharyngitis, unspecified etiology J02.9 and Lymphadenopathy R59.[address] 62200- 4647 Jul, ADD (attention deficit disorder) F90.0 [place] [address] 40191- 1817 Jul, Allergic rhinitis due to pollen J30.1 [place] [address] 26151- 0022 Jul, Dental examination Z01.[address] 13063- 9243 Jun, Cough productive of purulent sputum R05 [place] [address] 83592- 5478 Jun, Allergic rhinitis due to pollen J30.1 [place] [address] 83510- 0736 Jun, [place] [address] 48395- 7904 Jun, Allergic rhinitis due to pollen J30.1 [place] [address] 47741- 0048 Jun, Allergic rhinitis due to pollen J30.1 [place] [address] [place] [address] 07431- 6435 May, Allergic rhinitis due to pollen J30.1 [place] [id number] [place] [address] 92942- 1391 May, Pneumonia due to Haemophilus influenzae, unspecified laterality, unspecified part of lung J14 [place] [id number] [place] [address] 27407- 8617 May, Allergic rhinitis due to pollen J30.1 [place] [id number] [place] [address] 32811- 0885 May, Other adverse food reactions, not elsewhere classified, initial encounter T78.1XXA and Pneumonia due to Haemophilus influenzae, unspecified laterality, unspecified part of lung J14 [place] [id number] [place] [address] 61327- 2263 May, Pneumonia due to Haemophilus influenzae, unspecified laterality, unspecified part of lung J14 [place] [id number] [place] [address] 45487- 3557 May, Multiple food allergies Z91.018 ; Uncomplicated severe persistent asthma J45.50 ; Cough productive of purulent sputum R05 and Uses central nervous system stimulants F15.90 [place] [id number] [place] [address] 09473- 6592 Apr, Allergic rhinitis due to pollen J30.1 [place] [id number] [place] [address] 24387- 4847 Apr, Allergic rhinitis due to pollen J30.1 [place] [id number] [place] [address] 01391- 6441 Apr, Allergic rhinitis due to pollen J30.1 [place] [id number] [place] [address] 18024- 2783 Apr, ADD (attention deficit disorder) F90.0 [place] [id number] [place] [address] 81689- 2762 28 Mar, 2017 Allergic rhinitis due to pollen J30.1 [facility] [id number] [place] [address] 58534- 1088 21 Mar, 2017 Encounter for immunization Z23 [place] [address] 71253- 6742 19 Mar, 2017 [place] [address] 61653- 5899 14 Mar, 2017 Allergic rhinitis due to pollen J30.1 [place] [address] 94214- 2588 07 Mar, 2017 Allergic rhinitis due to pollen J30.1 [place] [address] 73759- 2852 Jan, Allergic rhinitis due to pollen J30.1 [place] [address] 25502- 2999 Jan, Allergic rhinitis due to pollen J30.1 [place] [id number] [place] [address] 51881- 0425 Dec, Uncomplicated severe persistent asthma J45.50 [place] [id number] [place] [address] 22648- 2640 Dec, Allergic rhinitis due to pollen J30.1 [place] [id number] [place] [address] 83011- 9905 Dec, Allergic rhinitis due to pollen J30.1 [place] [id number] [place] [address] 96640- 1566 Dec, Allergic rhinitis due to pollen J30.1 [place] [id number] [place] [address] 77519- 4405 Dec, ADD (attention deficit disorder) F90.0 [place] [address] 13774- 9772 Dec, Allergic rhinitis due to pollen J30.1 [facility] [address] [place] [address] 53909- 5632 Dec, Screening for tuberculosis Z11.1 and Visit for TB skin test Z11.1 [place] [id number] [place] [address] 75012- 8972 Dec, Uncomplicated severe persistent asthma J45.50 ; Palpitations R00.2 ; Pericardial effusion (noninflammatory) I31.3 and Chest discomfort R07.89 [place] [id number] [place] [address] 81917- 4251 Dec, Allergic rhinitis due to pollen J30.1 [place] [id number] [place] [address] 19614- 6082 Dec, Chronic cough R05 [place] [id number] [place] [address] 99508- 9940 Dec, [facility] [id number] [place] [address] 49341- 7588 Dec, Allergic rhinitis due to pollen J30.1 [place] [id number] [place] [address] 09002- 5459 Dec, Allergic rhinitis due to pollen J30.1 [place] [id number] [place] [address] 95321- 7241 Dec, Chronic cough R05 [facility] [id number] [place] [address] 08834- 7615 October, Allergic rhinitis due to pollen J30.1 [facility] [id number] [place] [address] 59920- 3949 October, Allergic rhinitis due to pollen J30.1 [facility] [id number] [place] [address] 69682- 5377 October, [facility] [id number] [place] [address] 97312- 9311 October, Asthma exacerbation J45.901 [place] [id number] [place] [address] 73785- 1634 October, Asthma exacerbation J45.901 and Current chronic use of inhaled steroid Z79.51 [place] [id number] [place] [address] 15153- 3686 October, Uncomplicated severe persistent asthma J45.50 [place] [address] 49188- 7025 October, Allergic rhinitis due to pollen J30.1 [place] [address] 23150- 2331 Oct, [place] [address] 05574- 2092 Oct, Asthma exacerbation J45.901 and Sputum production R05 [address] 68906- 6565 Oct, Asthma exacerbation J45.901 [place] [id number] [place] [address] 13283- 1259 Oct, ADD (attention deficit disorder) F90.0 [place] [id number] [place] [address] 71733- 4181 Oct, ADD (attention deficit disorder) F90.0 [place] [id number] [place] [address] 69930- 4083 Aug, Allergic rhinitis due to pollen J30.1 [place] [id number] [place] [address] 55993- 6382 Aug, Atypical pneumonia J18.[address] 16743- 6495 Aug, Allergic rhinitis due to pollen J30.1 [place] [address] 05455- 9304 Aug, Acquired hypothyroidism E03.9 [place] [id number] [place] [address] 83583- 4773 Aug, Multiple food allergies Z91.018 ; Elevated blood pressure reading R03.0 and Anaphylaxis, subsequent encounter T78.2XXD [facility] [address] [id number] Aug, [place] [address] 68174- 9215 Aug, Anaphylaxis, initial encounter T78.2XXA [place] [address] 30228- 0802 Aug, Allergic rhinitis due to pollen J30.1 [place] [address] 54777- 1489 Aug, Dental examination Z01.20 [place] [address] 81897- 7211 Aug, Allergic rhinitis due to pollen J30.1 [place] [address] 89807- 8827 Aug, Acquired hypothyroidism E03.9 and Pure hypercholesterolemia E78.00 [place] [address] 12040- 2154 03 Aug, 2016 ADD (attention deficit disorder) F90.0 ; Acquired hypothyroidism E03.9 and Pure hypercholesterolemia E78.00 [place] [id number] [place] [address] 24188- 2035 Aug, Asthma exacerbation J45.901 [place] [address] 75488- 8579 Jul, Allergic rhinitis due to pollen J30.1 [place] [id number] [place] [address] 36034- 1583 Jul, Allergic rhinitis due to pollen J30.1 [place] [address] 82848- 2043 Jul, [facility] [address] [place] [address] 16844- 6213 Jul, Allergic rhinitis due to pollen J30.1 [facility] [address] [place] [address] 12339- 7055 Jul, Other retirement (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 and ADD ( attention deficit disorder) F90.0 [facility] [id number] [place] [address] 33735- 8955 Jul, 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 and ADD ( attention deficit disorder) F90.0 [facility] [id number] [place] [address] 57126- 3634 Jul, [place] [id number] [place] [address] 12311- 8686 Jun, Allergic rhinitis due to pollen J30.1 [facility] [id number] [place] [address] 46610- 9653 Jun, Allergic rhinitis due to pollen J30.1 [facility] [id number] [place] [address] 43697- 4969 Jun, [place] [id number] [place] [address] 13661- 2682 May, Allergic rhinitis due to pollen J30.1 [facility] [id number] [place] [address] 30699- 6883 May, Allergic rhinitis due to pollen J30.1 [facility] [id number] [place] [address] 51090- 5565 Apr, Allergic rhinitis due to pollen J30.1 [facility] [id number] [place] [address] 84930- 7697 Apr, Allergic rhinitis due to pollen J30.1 [facility] [id number] [place] [address] 75833- 6414 Apr, Encounter for immunization Z23 [facility] [address] [place] [address] 49111- 7738 Apr, [facility] [id number] [place] [address] 22103- 2495 Mar, Allergic rhinitis due to pollen J30.1 [facility] [address] [place] [address] 23931- 9455 Mar, Multiple allergies Z88.9 [facility] [id number] [place] [address] 24009- 4693 Mar, Candidal vaginitis B37.3 [place] [id number] [place] [address] 45269- 4136 Mar, Allergic rhinitis due to pollen J30.1 [place] [id number] [place] [address] 96835- 3291 Jan, Asthma exacerbation J45.901 ; Fatigue, unspecified type R53.83 and Community acquired pneumonia J18.9 [facility] [address] [place] [address] [id number] Jan, Encounter for dental examination Z01.20 [facility] [address] [place] [address] 83585- 3340 Jan, Allergic rhinitis due to pollen J30.1 [facility] [address] [place] [address] 75436- 1557 Dec, Allergic rhinitis due to pollen J30.1 [facility] [address] [place] [address] 28850- 4263 Dec, [facility] [id number] [place] [address] 19184- 9601 Dec, Allergic rhinitis due to pollen J30.1 [facility] [address] [place] [address] 01096- 6579 Dec, [facility] [id number], [place] [address]- 1868 Dec, [facility] [address], [place] [address]- 9484 Dec, [facility] [address] [place] [address] 45334- 4445 Dec, Allergic rhinitis due to pollen J30.1 [facility] [address] [place] [address] 02476- 2160 Dec, [facility] [address] [place] [address] 19587- 8053 Dec, [facility] [id number] [place] [address] 51873- 3681 Dec, Allergic rhinitis due to pollen J30.1 [facility] [address], [place] [address]- 3719 October, Allergic rhinitis due to pollen J30.1 [facility] [id number], [place] [address]- 8328 October, Allergic rhinitis due to pollen J30.1 [facility] [address] [place] [address] 36483- 2917 October, [facility] [address] [place] [address] 30341- 0401 October, [facility] [address] [place] [address] 61306- 0120 October, ADD (attention deficit disorder) F90.0 ; Major depressive disorder, recurrent episode, mild F33.0 and Uncomplicated severe persistent asthma J45.50 [facility] [id number] [place] [address] 48322- 4638 Oct, Allergic rhinitis due to pollen J30.1 [facility] [address], [place] [address]- 1984 Oct, ADD (attention deficit disorder) F90.0 [facility] [id number] [place] [address] 28640- 0270 Oct, Allergic rhinitis due to pollen 477.0 [facility] [id number] [place] [address] 22264- 6179 Aug, Allergic rhinitis due to pollen 477.0 [facility] [address] 21738- 9700 Aug, 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 [facility] [id number] [place] [address] 07663- 4207 Aug, [place] [address] 63269- 7713 Aug, Allergic rhinitis due to pollen 477.0 [place] [address] 49961- 6211 Aug, Allergic rhinitis due to pollen 477.0 [place] [address] 60737- 6317 Aug, Allergic rhinitis due to pollen 477.0 [place] [id number] [place] [address] 69573- 7466 Aug, Exposure to influenza Z20.828 [facility] [id number] [place] [address] [id number] Aug, Encounter for dental examination and cleaning without abnormal findings Z01.20 [place] [id number] [place] [address] 47945- 3712 Aug, Allergic rhinitis due to pollen J30.1 [place] [id number] [place] [address] 81887- 9168 Aug, [place] [id number] [place] [address] 28372- 4690 Aug, 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 [place] [address] 79664- 7201 Jul, [place] [id number] [place] [address] 96902- 0001 Jul, Allergic rhinitis due to pollen 477.0 [place] [id number] [place] [address] 64809- 0004 Jul, [place] [id number] [place] [address] 83263- 4476 Jul, Allergic rhinitis due to pollen 477.0 [place] [address] 29349- 0236 Jun, ADD (attention deficit disorder) F90.0 ; Acquired hypothyroidism E03.9 ; PCOS (polycystic ovarian syndrome) E28.2 ; Polyarthralgia M25.50 and On stimulant medication Z79.899 [place] [address] 03923- 8112 16 Apr, 2015 Encounter for immunization Z23 [place] [address] 88177- 2236 16 Mar, 2015 Allergic rhinitis due to pollen 477.0 [place] [address] 38149- 4149 Mar, Influenza vaccine administered V04.81 [place] [id number] [place] [address] 57054- 5690 Mar, [place] [address] 54572- 5097 Jan, Allergic rhinitis due to pollen 477.0 [place] [id number] [place] [address] 59836- 5440 Jan, Allergic rhinitis due to pollen 477.0 [place] [id number] [place] [address] 78985- 5240 Jan, Allergic rhinitis due to pollen 477.0 [facility] [address] [place] [address] [id number] Jan, Dental examination V72.2 [facility] [id number], [place] [address]- 7790 Dec, Allergic rhinitis due to pollen 477.0 [facility] [address], [place] [address]- 4761 October, [facility] [address], [place] [address]- 6282 Oct, [facility] [address] [facility] [id number] [address]- 2361 Oct, [facility] [address] [facility] [id number] [address]- 2452 Aug, [facility] [address], [place] [address]- 8188 Aug, [facility] [address], [place] [address]- 4737 Aug, [facility] [address], [place] [address]- 5273 Aug, [facility] [address], [place] [address]- 3179 Aug, [facility] [address], [place] [address]- 7960 Aug, [facility] [address], [place] [address]- 7069 Aug, [facility] [address], [place] [address]- 5122 Aug, [facility] [id number], [place] [address]- 5603 Jul, [facility] [address] [facility] [id number], [place] [address]- 6081 Jul, [facility] [address], [place] [address]- 4716 Jul, [facility] [place] [facility] [address] [id number] [place] [address]- 6211 Jul, [facility] [place] [facility] [address] [id number] [place] [address]- 5491 Jul, [facility] [place] [facility] [address] [id number] [place] [address]- 2846 Jul, [facility] [place] [facility] [address] [id number] [place] [address]- 7427 Jul, [facility] [place] [facility] [address] [id number] [place] [address] Jul, [facility] [place] [facility] [address] [id number] [place] [address] Jul, [facility] [place] [facility] [address] [id number] [place] [address] Jul, [facility] [place] [facility] [address] [id number] [place] [address] Jul, [facility] [place] [facility] [address] [id number] [place] [address] Jun, [facility] [place] [facility] [address] [id number] [place] [address] Jun, [facility] [place] [facility] [address] [id number] [place] [address] Jun, [facility] [place] [facility] [address] [id number] [place] [address] Jun, [facility] [place] [facility] [address] [id number] [place] [address] Jun, [facility] [place] [facility] [address] [id number] [place] [address] Jun, [facility] [place] [facility] [address] [id number] [place] [address] May, [facility] [place] [facility] [address] [id number] [place] [address] May, [facility] [place] [facility] [address] [id number] [place] [address] May, [facility] [place] [facility] [address] [id number] [place] [address] May, [facility] [place] [facility] [address] [id number] [place] [address] May, [facility] [place] [facility] [address] [id number] [place] [address] May, [facility] [place] [facility] [address] [id number] [place] [address] Apr, [facility] [place] [facility] [address] [id number] [place] [address] Apr, [facility] [place] [facility] [address] [id number] [place] [address] 30 Mar, 2014 [facility] [place] [facility] [address] [id number] [place] [address] 30 Mar, 2014 [facility] [place] [facility] [address] [id number] [place] [address] 30 Mar, 2014 [facility] [place] [facility] [address] [id number] [place] [address] 5[address] 30 Mar, 2014 [facility] [place] [facility] [address] [id number] [place] [address] 19 Mar, 2014 [facility] [place] [facility] [address] [id number] [address] Mar, [facility] [place] [facility] [address] [id number] [place] [address]608 Jan, [facility] [place] [facility] [address] [id number] [place] [address] 7483 Jan, [facility] [place] [facility] [address] [id number] [place] [address] 0016 Jan, [facility] [place] [facility] [address] [id number] [place] [address] 6693 Jan, [facility] [place] [facility] [address] [id number] [place] [address] 1142 Jan, [facility] [place] [facility] [address] [id number] [place] [address] 1014 Jan, [facility] [place] [facility] [address] [id number] [place] [address]- 7568 Dec, [facility] [place] [facility] [address] [id number] [place] [address]- 9330 Dec, [facility] [place] [facility] [address] [id number] [place] [address] 8690 Dec, [facility] [place] [facility] [address] [id number] [place] [address]- 1409 Dec, [facility] [place] [facility] [address] [id number] [place] [address] 6603 Dec, [facility] [place] [facility] [address] [id number] [place] [address] 3150 Dec, [facility] [place] [facility] [address] [id number] [place] [address]- 7802 Dec, [facility] [place] [facility] [address] [id number] [place] [address]- 6697 Dec, [facility] [place] [facility] [address] [id number] [place] [address]- 9456 Dec, [facility] [place] [facility] [address] [id number] [place] [address]- 9446 Dec, [facility] [place] [facility] [address] [id number] [place] [address]- 6905 Dec, [facility] [place] [facility] [address] [id number] [place] [address]- 4894 Dec, [facility] [place] [facility] [address] [id number] [place] [address]- 4110 Dec, [facility] [place] [facility] [address] [id number] [place] [address]- 4295 Dec, [facility] [place] [facility] [address] [id number] [place] [address]- 4962 Dec, [facility] [place] [facility] [address] [id number] [place] [address]- 9884 Dec, [facility] [place] [facility] [address] [id number] [place] [address] 5195 October, [facility] [place] [facility] [address] [id number] [place] [address] 1442 October, [facility] [place] [facility] [address] [id number] [place] [address]- 4980 October, [facility] [place] [facility] [address] [id number] [place] [address]- 9438 October, [facility] [place] [facility] [address] [id number] [place] [address]- 5405 October, [facility] [place] [facility] [address] [id number] [place] [address]- 1683 October, [facility] [place] [facility] [address] [id number] [place] [address]- 1494 Oct, [facility] [place] [facility] [address] [id number] [place] [address]- 6398 Oct, [facility] [place] [facility] [address] [id number] [place] [address]- 1244 Oct, [facility] [place] [facility] [address] [id number] [place] [address] 8334 Oct, [facility] [place] [facility] [address] [id number] [place] [address] 4053 Oct, [facility] [place] [facility] [address] [id number] [place] [address]- 8985 Oct, [facility] [place] [facility] [address] [id number] [place] [address]- 7218 Aug, [facility] [address] [id number] [place] [address]- 4238 Aug, [facility] [place] [facility] [address] [id number] [place] [address]- 7536 Aug, [facility] [place] [facility] [address] [id number] [place] [address]- 5016 Aug, [facility] [place] [facility] [address] [id number] [place] [address]- 5962 Jul, [facility] [place] [facility] [address] [id number] [place] [address]- 4333 Jul, [facility] [place] [facility] [address] [id number] [place] [address]- 5117 Jul, [facility] [address] [id number] [place] [address]- 5352 Jul, [facility] [place] [facility] [address] [id number] [place] [address]- 3366 Jun, [facility] [place] [facility] [address] [id number] [place] [address] 3440 Jun, [facility] [place] [facility] [address] [id number] [place] [address]- 7452 Jun, [facility] [place] [facility] [address] [id number] [place] [address]- 5481 24 Jun, 2013 [facility] [place] [facility] [address] [id number] [place] [address]- 6397 20 Jun, 2013 [facility] [place] [facility] [address] [id number] [place] [address]- 8548 18 Jun, 2013 [facility] [place] [facility] [address] [id number] [place] [address] Jun, [facility] [place] [facility] [address] [id number] [place] [address]- 8828 09 Jun, 2013 [facility] [place] [facility] [address] [id number] [place] [address]- 6134 Jun, [facility] [address] [id number] [place] [address]- 4840 Jun, [facility] [place] [facility] [address] [id number] [place] [address]- 2183 Jun, [facility] [address] [id number] [place] [address]- 1012 May, [facility] [place] [facility] [address] [id number] [place] [address]- 3488 May, [facility] [address] [id number] [place] [address]- 2400 May, [facility] [address] [id number] [place] [address]- 5079 May, [facility] [address] [id number] [place] [address]- 1685 May, [facility] [address] [id number] [place] [address]- 8758 May, [facility] [place] [facility] [address] [id number] [place] [address]- 7168 May, [facility] [address] [id number] [place] [address]- 4656 Apr, [facility] [place] [facility] [address] [id number] [place] [address]- 2479 30 Apr, 2013 [facility] [place] [facility] [address] [id number] [place] [address]- 5526 18 Apr, 2013 [facility] [place] [facility] [address] [id number] [place] [address]- 0754 Apr, [facility] [place] [facility] [address] [id number] [place] [address]- 5215 27 Mar, 2013 [facility] [place] [facility] [address] [id number] [place] [address]- 2156 Mar, [facility] [place] [facility] [address] [id number] [place] [address]- 5305 Mar, [facility] [place] [facility] [address] [id number] [place] [address]- 7308 Mar, [facility] [place] [facility] [address] [id number] [place] [address]- 1775 Mar, [facility] [place] [facility] [address] [id number] [place] [address]- 8250 Mar, [facility] [place] [facility] [address] [id number] [place] [address]- 3645 Jan, [facility] [place] [facility] [address] [id number] [place] [address]- 2801 Jan, [facility] [place] [facility] [address] [id number] [place] [address]- 6785 Jan, [facility] [place] [facility] [address] [id number] [place] [address]- 5342 Jan, [facility] [place] [facility] [address] [id number] [place] [address]- 3939 Jan, [facility] [place] [facility] [address] [id number] [place] [address]- 5371 Dec, [facility] [place] [facility] [address] [id number] [place] [address]- 5172 Dec, [facility] [place] [facility] [address] [id number] [place] [address]- 5099 Dec, [facility] [place] [facility] [address] [id number] [place] [address]- 9558 Dec, [facility] [place] [facility] [address] [id number] [place] [address]- 6503 Dec, [facility] [place] [facility] [address] [id number] [place] [address] Dec, [facility] [place] [facility] [address] [id number] [place] [address]- 1869 Dec, [facility] [address] [id number] [place] [address]- 0064 Dec, [facility] [address] [id number] [place] [address]- 4484 October, [facility] [address] [id number] [place] [address]- 8274 October, [facility] [address] [id number] [place] [address]- 5234 October, [facility] [address] [id number] [place] [address]- 7825 Oct, [facility] [place] [facility] [address] [id number] [place] [address]- 1573 Oct, [facility] [address] [id number] [place] [address]- 7922 Oct, [facility] [address] [id number] [place] [address]- 4387 Oct, [facility] [address] [id number] [place] [address]- 7775 Aug, [facility] [address] [id number] [place] [address]- 9288 Aug, [facility] [address] [id number] [place] [address]- 6659 Aug, [facility] [place] [facility] [address] [id number] [place] [address]- 6079 Jul, [facility] [place] [facility] [address] [id number] [place] [address]- 6030 May, [facility] [place] [facility] [address] [id number] [place] [address]- 7466 May, [facility] [address] [id number] [place] [address]- 5760 Apr, [facility] [place] [facility] [address] [id number] [place] [address]- 5414 Apr, [facility] [place] [facility] [address] [id number] [place] [address] Apr, [facility] [place] [facility] [address] [id number] [place] [address]- 5763 Apr, [facility] [place] [facility] [address] [id number] [place] [address]- 4557 Apr, [facility] [place] [facility] [address] [id number] [place] [address]- 2949 Apr, [facility] [place] [facility] [address] [id number] [place] [address]- 8668 Apr, [facility] [place] [facility] [address] [id number] [place] [address]- 0876 Apr, [facility] [place] [facility] [address] [id number] [place] [address]- 7264 Apr, [facility] [place] [facility] [address] [id number] [place] [address]- 9234 Apr, [facility] [place] [facility] [address] [id number] [place] [address]- 4599 Apr, [facility] [place] [facility] [address] [id number] [place] [address]- 4242 Apr, [facility] [place] [facility] [address] [id number] [place] [address]- 0611 Mar, [facility] [place] [facility] [address] [id number] [place] [address]- 2016 Jan, [facility] [place] [facility] [address] [id number] [place] [address]- 5741 Dec, [facility] [place] [facility] [address] [id number] [place] [address]- 6347 October, [facility] [place] [facility] [address] [id number] [place] [address]- 4828 Oct, [facility] [address] [id number] [place] [address]- 7253 Oct, [facility] [place] [facility] [address] [id number] [place] [address] Oct, [facility] [place] [facility] [address] [facility] [id number] [place] [address]- 0950 Aug, [facility] [place] [facility] [address] [id number] [place] [address]- 2028 Aug, [facility] [place] [facility] [address] [id number] [place] [address]- 3859 Aug, [facility] [place] [facility] [address] [id number] [place] [address]12 16 Aug, 2011 [facility] [place] [facility] [address] [id number] [place] [address]- 9789 Aug, [facility] [place] [facility] [address] [id number] [place] [address]- 0934 Aug, [facility] [place] [facility] [address] [id number] [place] [address]- 0119 Jun, [facility] [place] [facility] [address] [facility] [id number] [place] [address]- 3962 Apr, [facility] [place] [facility] [address] [id number], [place] [address]- 6192 Jun, [facility] [place] [facility] [address] [id number], [place] [address]- 2674 Jun, [facility] [place] [facility] [address] [id number] [place] [address]- 2613 May, [facility] [place] [facility] [address] [facility] [id number] [place] [address]- 1314 May, [facility] [place] [facility] [address] [facility] [id number] [place] [address]- 2667 Apr, [facility] [place] [facility] [address] [facility] [id number] [place] [address]- 1243 13 Apr, 2009 IMMUNIZATIONS No Known Immunizations SOCIAL HISTORY Never Assessed REASON FOR VISIT Allergy injection(s) [facility] PLAN OF CARE VITAL SIGNS MEDICATIONS Unknown Medications RESULTS No Results PROCEDURES Procedure Date Ordered Result Body Site IMMUNOTHERAPY, 2 OR MORE INJECTIONS 2017-03-09 N/A IMMUNOTHERAPY INJECTIONS Mar 09, 2017 INSTRUCTIONS MEDICATIONS ADMINISTERED No Known Medications [...]
--- OUTSIDE RECORDS SUMMARY | 2018-07-18 07:57 | XMS REPORT ---
Author Author SAGAR NAVA [facility] e[employer] Address Unknown Phone Unavailable Care Team Providers Care Agency Sales Director Name Role Phone SAGAR NAVA CP Unavailable [...] Coding System Code Date IMMUNOTHERAPY INJECTIONS CPT-4 78756 Feb 19, 2015 Results Name Result Date Reference Range Unit Abnormality Flag IMMUNOTHERAPY, 2 OR MORE INJECTIONS Summary Purpose eClinical[employer] Submission
--- OUTSIDE RECORDS SUMMARY | 2018-07-18 07:57 | XMS REPORT ---
Author Author SAGAR NAVA [employer] Address Unknown Phone Unavailable Care Team Providers Care Health Information Administrator Name Role Phone SAGAR NAVA CP Unavailable [...] Coding System Code Date IMMUNOTHERAPY INJECTIONS CPT-4 96934 May 19, 2016 Results Name Result Date Reference Range Unit Abnormality Flag IMMUNOTHERAPY, 2 OR MORE INJECTIONS Summary Purpose [employer] Submission
--- OUTSIDE RECORDS SUMMARY | 2018-07-18 07:58 | XMS REPORT ---
Author Author BRANDY SAGAR [facility] Address [address] [place] [address] Care Team Providers Care Vineyard Supervisor Name Role Phone TEZ NAVAHANY Unavailable PROBLEMS Type Condition ICD9-CM Code KNS60-NT Code Onset Dates Condition Status SNOMED Code Problem Migraine with aura and without status migrainosus, not intractable G43.109 Active 6128110 Problem PCOS (polycystic ovarian syndrome) E28.2 Active 36081415 Problem Uncomplicated severe persistent asthma J45.50 Active 323630415 Problem Severe persistent asthma with exacerbation J45.51 Active 684351421 Problem Other elevated white blood cell (WBC) count D72.828 Active 925509528 Problem Multiple food allergies Z91.018 Active 465961981 Problem Pure hypercholesterolemia E78.00 Active 222803716 Problem Current chronic use of inhaled steroid Z79.51 Active 791162183 Problem Asthma exacerbation J45.901 Active 131029793 Problem ADD (attention deficit disorder) F90.0 Active 702247026 Problem Allergic rhinitis due to pollen J30.1 Active 60274465 Problem Vitamin D deficiency E55.9 Active 50796583 Problem Major depressive disorder, recurrent episode, mild F33.0 Active 868281307 Problem Acquired hypothyroidism E03.9 Active 992396983 Problem Gastroesophageal reflux disease without esophagitis K21.9 Active 257525863 ALLERGIES No Information ENCOUNTERS Encounter Location Date Diagnosis [facility] [address] [address] Dec, [facility] [id number] [place] [address] 90756- 8591 October, Allergic rhinitis due to pollen J30.1 [facility] [address] [address] October, Allergic rhinitis due to pollen J30.1 [facility] [id number] [place] [address] 84177- 2383 Oct, [place] [address] 61390- 9313 Oct, Allergic rhinitis due to pollen J30.1 [facility] [id number] [place] [address] 80578- 4818 Oct, [place] [address] 95373- 5052 Oct, Allergic rhinitis due to pollen J30.1 [facility] [facility] [id number] [place] [address] 07406- 4092 Oct, Severe persistent asthma with exacerbation J45.51 and Pneumonia due to Haemophilus influenzae, unspecified laterality, unspecified part of lung J14 [place] [id number] [place] [address] 23033- 8251 Oct, ADD (attention deficit disorder) F90.0 [place] [id number] [place] [address] 71207- 5232 Aug, Haemophilus influenzae infection A49.2 [place] [address] 45897- 5611 Aug, Cough productive of purulent sputum R05 [place] [id number] [place] [address] 44313- 5389 Aug, [place] [id number] [place] [address] 28686- 1070 Aug, Pulmonary congestion R09.89 [place] [id number] [place] [address] 15062- 7036 Aug, Severe persistent asthma with exacerbation J45.51 ; Hiatal hernia K44.9 and Gastroesophageal reflux disease without esophagitis K21.9 [place] [id number] [place] [address] 99634- 1726 Aug, Other elevated white blood cell (WBC) count D72.828 [place] [address] 87546- 0130 Aug, Uncomplicated severe persistent asthma J45.50 [facility] [address] [id number]- 0237 Aug, Pure hypercholesterolemia E78.00 ; Uncomplicated severe persistent asthma J45.50 and Acquired hypothyroidism E03.9 [facility] [address] 49590- 7793 Aug, Acquired hypothyroidism E03.9 ; Pure hypercholesterolemia E78.00 and Uncomplicated severe persistent asthma J45.50 [place] [address] 259862- 1794 15 Aug, 2017 Allergic rhinitis due to pollen J30.1 [place] [address] 82922- 6017 Aug, Allergic rhinitis due to pollen J30.1 [place] [address] 60668- 3770 Aug, [facility] [address] [id number] Jul, Pharyngitis, unspecified etiology J02.9 and Lymphadenopathy R59.1 [place] [address] 23253- 5837 Jul, ADD (attention deficit disorder) F90.0 [place] [address] 72644- 9292 Jul, Allergic rhinitis due to pollen J30.1 [place] [address] 02498- 4777 Jul, Dental examination Z01.20 [facility] [address] 07976- 8343 Jun, Cough productive of purulent sputum R05 [place] [address] 56820- 0953 Jun, Allergic rhinitis due to pollen J30.1 [place] [address] [place] [address] 35838- 9042 Jun, [place] [id number] [place] [address] 05873- 2382 Jun, Allergic rhinitis due to pollen J30.1 [place] [id number] [place] [address] 50411- 7310 Jun, Allergic rhinitis due to pollen J30.1 [place] [id number] [place] [address] 97960- 4210 May, Allergic rhinitis due to pollen J30.1 [place] [id number] [place] [address] 74307- 6471 May, Pneumonia due to Haemophilus influenzae, unspecified laterality, unspecified part of lung J14 [place] [address] 34746- 5312 May, Allergic rhinitis due to pollen J30.1 [place] [id number] [place] [address] 22433- 3478 May, Other adverse food reactions, not elsewhere classified, initial encounter T78.1XXA and Pneumonia due to Haemophilus influenzae, unspecified laterality, unspecified part of lung J14 [place] [address] [place] [address] 93630- 3548 May, Pneumonia due to Haemophilus influenzae, unspecified laterality, unspecified part of lung J14 [place] [address] [place] [address] 06706- 5090 May, Multiple food allergies Z91.018 ; Uncomplicated severe persistent asthma J45.50 ; Cough productive of purulent sputum R05 and Uses central nervous system stimulants F15.90 [place] [address] [place] [address] 89283- 3989 Apr, Allergic rhinitis due to pollen J30.1 [place] [address] 06151- 4004 Apr, Allergic rhinitis due to pollen J30.1 [place] [address] 09437- 7382 Apr, Allergic rhinitis due to pollen J30.1 [place] [address] 77551- 1128 11 Apr, 2017 ADD (attention deficit disorder) F90.0 [place] [address] 58088- 9263 28 Mar, 2017 Allergic rhinitis due to pollen J30.1 [place] [address] 86209- 2134 21 Mar, 2017 Encounter for immunization Z23 [place] [address] 27015- 6820 19 Mar, 2017 [place] [address] 93565- 5578 14 Mar, 2017 Allergic rhinitis due to pollen J30.1 [place] [address] 45799- 2907 07 Mar, 2017 Allergic rhinitis due to pollen J30.1 [place] [address] 37728- 7803 Jan, Allergic rhinitis due to pollen J30.1 [place] [address] 26202- 3828 Jan, Allergic rhinitis due to pollen J30.1 [place] [address] 00389- 1160 Dec, Uncomplicated severe persistent asthma J45.50 [place] [address] 11465- 4416 Dec, Allergic rhinitis due to pollen J30.1 [place] [address] 80449- 8950 Dec, Allergic rhinitis due to pollen J30.1 [place] [address] [address]- 6908 Dec, Allergic rhinitis due to pollen J30.1 [place] [id number] [place] [address] 47667- 8383 Dec, ADD (attention deficit disorder) F90.0 [place] [id number] [place] [address] 92263- 7987 Dec, Allergic rhinitis due to pollen J30.1 [facility] [address] [place] [address] 22376- 1818 Dec, Visit for TB skin test Z11.1 and Screening for tuberculosis Z11.1 [place] [address] [place] [address] 85421- 6362 Dec, Uncomplicated severe persistent asthma J45.50 ; Palpitations R00.2 ; Pericardial effusion (noninflammatory) I31.3 and Chest discomfort R07.89 [place] [address] [place] [address] 99668- 0573 Dec, Allergic rhinitis due to pollen J30.1 [place] [address] [place] [address] 39477- 0829 Dec, Chronic cough R05 [place] [address] [place] [address] 52761- 0560 Dec, [place] [address] [place] [address] 24597- 3736 Dec, Allergic rhinitis due to pollen J30.1 [place] [address] [place] [address] 96842- 5044 Dec, Allergic rhinitis due to pollen J30.1 [place] [address] [place] [address] 83354- 1814 Dec, Chronic cough R05 [place] [address] [place] [address] 16550- 2066 October, Allergic rhinitis due to pollen J30.1 [facility] [id number] [place] [address] 96333- 8929 October, Allergic rhinitis due to pollen J30.1 [facility] [id number] [place] [address] 44088- 5964 October, [place] [address] 51878- 3178 October, Asthma exacerbation J45.901 [place] [address] [place] [address] 04678- 8384 October, Asthma exacerbation J45.901 and Current chronic use of inhaled steroid Z79.51 [place] [address] [place] [address] 66450- 8891 October, Uncomplicated severe persistent asthma J45.50 [place] [address] [place] [address] 17267- 0984 October, Allergic rhinitis due to pollen J30.1 [place] [address] [place] [address] 50701- 5553 Oct, [place] [address] [place] [address] 23149- 9189 Oct, Asthma exacerbation J45.901 and Sputum production R05 [place] [address] [place] [address] 45783- 3325 Oct, Asthma exacerbation J45.901 [place] [address] [place] [address] 40955- 2047 Oct, ADD (attention deficit disorder) F90.0 [place] [address] 42907- 9750 Oct, ADD (attention deficit disorder) F90.0 [place] [address] [place] [address] 74273- 7098 Aug, Allergic rhinitis due to pollen J30.1 [place] [address] [place] [address] 12857- 7057 Aug, Atypical pneumonia J18.9 [place] [address] 42918- 7612 Aug, Allergic rhinitis due to pollen J30.1 [place] [address] 70804- 7018 Aug, Acquired hypothyroidism E03.9 [place] [address] 20685- 0073 Aug, Multiple food allergies Z91.018 ; Elevated blood pressure reading R03.0 and Anaphylaxis, subsequent encounter T78.2XXD [place] [address] [place] [address] [id number] Aug, [address] 74928- 0144 Aug, Anaphylaxis, initial encounter T78.2XXA [place] [address] 46611- 7559 Aug, Allergic rhinitis due to pollen J30.1 [place] [address] 32143- 4437 Aug, Dental examination Z01.[address] 57808- 4167 Aug, Allergic rhinitis due to pollen J30.1 [place] [address] 01620- 5358 Aug, Acquired hypothyroidism E03.9 and Pure hypercholesterolemia E78.[address] 27643- 2058 Aug, ADD (attention deficit disorder) F90.0 ; Acquired hypothyroidism E03.9 and Pure hypercholesterolemia E78.00 [place] [address] 05247- 0713 Aug, Asthma exacerbation J45.901 [facility] [id number] [place] [address] 67927- 3068 Jul, Allergic rhinitis due to pollen J30.1 [facility] [address] [place] [address] 84785- 0487 Jul, Allergic rhinitis due to pollen J30.1 [facility] [address] [place] [address] 13918- 5319 Jul, [place] [address] [place] [address] 84006- 1647 Jul, Allergic rhinitis due to pollen J30.1 [place] [address] [place] [address] 72813- 9764 Jul, Other retirement (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 and ADD ( attention deficit disorder) F90.0 [place] [address] [place] [address] 78029- 4421 Jul, 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 and ADD ( attention deficit disorder) F90.0 [place] [address] [place] [address] 17978- 5554 Jul, [place] [address] [place] [address] 81676- 1168 Jun, Allergic rhinitis due to pollen J30.1 [facility] [address] [place] [address] 52910- 4588 Jun, Allergic rhinitis due to pollen J30.1 [facility] [address] [place] [address] 73517- 3221 Jun, [place] [address] [place] [address] 46260- 0910 May, Allergic rhinitis due to pollen J30.1 [place] [address] [place] [address] 09484- 2157 May, Allergic rhinitis due to pollen J30.1 [place] [address] [place] [address] 62271- 2743 Apr, Allergic rhinitis due to pollen J30.1 [place] [address] [place] [address] 72996- 2718 Apr, Allergic rhinitis due to pollen J30.1 [place] [address] 75991- 8930 Apr, Encounter for immunization Z23 [place] [address] 60242- 9638 Apr, [place] [address] 32992- 6659 Mar, Allergic rhinitis due to pollen J30.1 [place] [address] [place] [address] 00077- 8787 Mar, Multiple allergies Z88.9 [place] [address] 15518- 0120 Mar, Candidal vaginitis B37.3 [place] [address] 84803- 9120 Mar, Allergic rhinitis due to pollen J30.1 [place] [address] [place] [address] 59542- 5180 Jan, Asthma exacerbation J45.901 ; Fatigue, unspecified type R53.83 and Community acquired pneumonia J18.9 [facility] [id number] [place] [address] [id number] Jan, Encounter for dental examination Z01.20 [place] [address] 41871- 0700 Jan, Allergic rhinitis due to pollen J30.1 [place] [address] [place] [address] 03579- 1040 Dec, Allergic rhinitis due to pollen J30.1 [place] [address] [facility] [id number] [address]- 3653 Dec, [facility] [address] [facility] [id number] [address]- 5220 Dec, Allergic rhinitis due to pollen J30.1 [facility] [address] [facility] [id number] [address]- 6338 Dec, [facility] [address] [facility] [id number] [address]- 7285 Dec, [facility] [address] [facility] [id number] [address]- 2561 Dec, [facility] [address] [facility] [id number] [address]- 0015 Dec, Allergic rhinitis due to pollen J30.1 [facility] [address] [address]- 3248 Dec, [facility] [id number] [address]- 4280 Dec, [facility] [address] [address]- 3442 Dec, Allergic rhinitis due to pollen J30.1 [facility] [id number] [address]- 9669 October, Allergic rhinitis due to pollen J30.1 [facility] [id number] [address]- 9540 October, Allergic rhinitis due to pollen J30.1 [facility] [address] [facility] [id number] [address]- 5636 October, [facility] [id number] [address]- 3469 October, [facility] [id number] [address]- 7574 October, ADD (attention deficit disorder) F90.0 ; Major depressive disorder, recurrent episode, mild F33.0 and Uncomplicated severe persistent asthma J45.50 [place] [address] [place] [address] 32617- 2527 Oct, Allergic rhinitis due to pollen J30.1 [place] [address] [place] [address] 79880- 9050 14 Oct, 2015 ADD (attention deficit disorder) F90.0 [place] [address] 43819- 5320 06 Oct, 2015 Allergic rhinitis due to pollen 477.0 [place] [address] 19019- 6195 Aug, Allergic rhinitis due to pollen 477.0 [place] [address] 83515- 5310 Aug, 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 [place] [address] 83942- 0006 Aug, [place] [address] [place] [address] 40006- 3876 Aug, Allergic rhinitis due to pollen 477.0 [place] [address] [place] [address] 28752- 0777 Aug, Allergic rhinitis due to pollen 477.0 [place] [address] [place] [address] 51138- 6407 Aug, Allergic rhinitis due to pollen 477.0 [place] [address] [place] [address] 87755- 3707 Aug, Exposure to influenza Z20.828 [facility] [id number] [place] [address] [id number] Aug, Encounter for dental examination and cleaning without abnormal findings Z01.20 [facility] [address] [place] [address] 37258- 0352 18 Aug, 2015 Allergic rhinitis due to pollen J30.1 [place] [address] [place] [address] 35638- 5074 Aug, [place] [address] [place] [address] 74508- 1451 Aug, 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 [place] [address] [place] [address] 43383- 7475 Jul, [place] [id number] [place] [address] 73207- 7232 Jul, Allergic rhinitis due to pollen 477.0 [place] [address] 48700- 9866 Jul, [place] [address] 04301- 2766 Jul, Allergic rhinitis due to pollen 477.0 [place] [address] 70307- 3964 Jun, ADD (attention deficit disorder) F90.0 ; Acquired hypothyroidism E03.9 ; PCOS (polycystic ovarian syndrome) E28.2 ; Polyarthralgia M25.50 and On stimulant medication Z79.899 [place] [address] [place] [address] 55491- 0774 Apr, Encounter for immunization Z23 [place] [address] 59904- 0568 16 Mar, 2015 Allergic rhinitis due to pollen 477.0 [place] [address] [place] [address] 96791- 0267 14 Mar, 2015 Influenza vaccine administered V04.81 [place] [address] 15924- 8771 03 Mar, 2015 [place] [id number] [place] [address] 77093- 2758 Jan, Allergic rhinitis due to pollen 477.0 [place] [address] [facility] [id number] [address]- 1638 Jan, Allergic rhinitis due to pollen 477.0 [facility] [address] [address]- 3587 Jan, Allergic rhinitis due to pollen 477.0 [facility] [address] [id number] Jan, Dental examination V72.2 [facility] [id number] [place] [address] 64287- 4765 Dec, Allergic rhinitis due to pollen 477.0 [facility] [address] [place] [address] 87936- 4196 October, [facility] [address] [place] [address] 90910- 1345 Oct, [facility] [id number] [place] [address] 64686- 2107 Oct, [facility] [address] [address]- 6892 Aug, [facility] [address] [address]- 3286 Aug, [facility] [address] [address]- 3861 Aug, [facility] [address] [address]- 3580 Aug, [facility] [address] [address]- 0020 Aug, [facility] [address] [address]- 2205 Aug, [facility] [address] 2760 Aug, [facility] [address] [address]- 7310 Aug, [facility] [place] [facility] [address] [id number] [place] [address]- 9679 Jul, [facility] [place] [facility] [address] [id number] [place] [address]- 4671 Jul, [facility] [place] [facility] [address] [id number] [place] [address]- 2332 Jul, [facility] [place] [facility] [address] [id number] [place] [address] Jul, [facility] [place] [facility] [address] [id number] [place] [address] Jul, [facility] [place] [facility] [address] [id number] [place] [address] Jul, [facility] [place] [facility] [address] [id number] [place] [address] Jul, [facility] [place] [facility] [address] [id number] [place] [address] Jul, [facility] [place] [facility] [address] [id number] [place] [address] Jul, [facility] [place] [facility] [address] [id number] [place] [address] Jul, [facility] [place] [facility] [address] [id number] [place] [address] Jul, [facility] [place] [facility] [address] [id number] [place] [address] Jun, [facility] [place] [facility] [address] [id number] [place] [address] 1989 Jun, [facility] [place] [facility] [address] [id number] [place] [address] Jun, [facility] [place] [facility] [address] [id number] [place] [address] Jun, [facility] [place] [facility] [address] [id number] [place] [address] Jun, [facility] [place] [facility] [address] [id number] [place] [address] Jun, [facility] [place] [facility] [address] [id number] [place] [address] May, [facility] [place] [facility] [address] [id number] [place] [address] May, [facility] [place] [facility] [address] [id number] [place] [address] May, [facility] [place] [facility] [address] [id number] [place] [address] May, [facility] [place] [facility] [address] [id number] [place] [address] May, [facility] [place] [facility] [address] [id number] [place] [address] May, [facility] [place] [facility] [address] [id number] [place] [address] Apr, [facility] [place] [facility] [address] [id number] [place] [address] Apr, [facility] [place] [facility] [address] [id number] [place] [address] 30 Mar, 2014 [facility] [place] [facility] [address] [id number] [place] [address] 30 Mar, 2013 [facility] [place] [facility] [address] [id number] [place] [address] 30 Mar, 2013 [facility] [place] [facility] [address] [id number] [place] [address] 30 Mar, 2013 [facility] [place] [facility] [address] [id number] [place] [address] 19 Mar, 2014 [facility] [place] [facility] [address] [id number] [place] [address] Mar, [facility] [place] [facility] [address] [id number] [place] [address] Jan, [facility] [place] [facility] [address] [id number] [place] [address] Jan, [facility] [place] [facility] [address] [id number] [place] [address] Jan, [facility] [place] [facility] [address] [id number] [place] [address] Jan, [facility] [place] [facility] [address] [id number] [place] [address] Jan, [facility] [place] [facility] [address] [id number] [place] [address] 40[address] Jan, [facility] [place] [facility] [address] [id number] [place] [address]237 Dec, [facility] [place] [facility] [address] [id number] [place] [address] 1597 Dec, [facility] [place] [facility] [address] [id number] [place] [address] 4415 Dec, [facility] [place] [facility] [address] [id number] [place] [address] 9977 Dec, [facility] [place] [facility] [address] [id number] [place] [address] 2080 Dec, [facility] [place] [facility] [address] [id number] [place] [address]44 Dec, [facility] [place] [facility] [address] [id number] [place] [address]- 8637 Dec, [facility] [place] [facility] [address] [id number] [place] [address]- 2594 Dec, [facility] [place] [facility] [address] [id number] [place] [address] 2115 Dec, [facility] [place] [facility] [address] [id number] [place] [address] 7403 Dec, [facility] [place] [facility] [address] [id number] [place] [address]- 2840 Dec, [facility] [place] [facility] [address] [id number] [place] [address] 4657 Dec, [facility] [place] [facility] [address] [id number] [place] [address]- 0753 Dec, [facility] [place] [facility] [address] [id number] [place] [address]- 4657 Dec, [facility] [place] [facility] [address] [id number] [place] [address]- 1104 Dec, [facility] [place] [facility] [address] [id number] [place] [address]- 0196 Dec, [facility] [place] [facility] [address] [id number] [place] [address]- 6456 October, [facility] [place] [facility] [address] [id number] [place] [address]- 9714 October, [facility] [place] [facility] [address] [id number] [place] [address] 4664 October, [facility] [place] [facility] [address] [id number] [place] [address]- 4790 October, [facility] [place] [facility] [address] [id number] [place] [address]- 3763 October, [facility] [place] [facility] [address] [id number] [place] [address]- 4483 October, [facility] [place] [facility] [address] [id number] [place] [address]- 0926 Oct, [facility] [place] [facility] [address] [id number] [place] [address]- 9557 Oct, [facility] [place] [facility] [address] [id number] [place] [address]- 5218 Oct, [facility] [place] [facility] [address] [id number] [place] [address]- [address]31 17 Oct, 2013 [facility] [place] [facility] [address] [id number] [place] [address] 3136 Oct, [facility] [place] [facility] [address] [id number] [place] [address]- 0397 Oct, [facility] [place] [facility] [address] [id number] [place] [address]- 2882 Aug, [facility] [place] [facility] [address] [id number] [place] [address]- 7390 Aug, [facility] [place] [facility] [address] [id number] [place] [address]- 0662 Aug, [facility] [place] [facility] [address] [id number] [place] [address]- 1602 Aug, [facility] [place] [facility] [address] [id number] [place] [address]- 7566 Jul, [facility] [place] [facility] [address] [id number] [place] [address] 9168 Jul, [facility] [place] [facility] [address] [id number] [place] [address] 9811 Jul, [facility] [place] [facility] [address] [id number] [place] [address]- 6577 Jul, [facility] [place] [facility] [address] [id number] [place] [address]- 9463 Jun, [facility] [place] [facility] [address] [id number] [place] [address]- 8057 Jun, [facility] [place] [facility] [address] [id number] [place] [address]- 4979 Jun, [facility] [place] [facility] [address] [id number] [place] [address]- 1146 Jun, [facility] [place] [facility] [address] [id number] [place] [address]- 9236 Jun, [facility] [place] [facility] [address] [id number] [place] [address] Jun, [facility] [place] [facility] [address] [id number] [place] [address] 3739 Jun, [facility] [place] [facility] [address] [facility] [id number] [place] [address]- 5794 Jun, [facility] [place] [facility] [address] [id number] [place] [address]- 9084 Jun, [facility] [place] [facility] [address] [id number] [place] [address]- 2037 Jun, [facility] [place] [facility] [address] [id number] [place] [address]- 1489 Jun, [facility] [place] [facility] [address] [id number] [place] [address] 9543 May, [facility] [place] [facility] [address] [id number] [place] [address]- 1412 May, [facility] [place] [facility] [address] [id number] [place] [address]- 9887 May, [facility] [place] [facility] [address] [id number] [place] [address]- 2079 May, [facility] [place] [facility] [address] [id number] [place] [address]- 9776 May, [facility] [place] [facility] [address] [id number] [place] [address]- 1314 May, [facility] [place] [facility] [address] [id number] [place] [address]- 3682 May, [facility] [place] [facility] [address] [facility] [id number] [place] [address]- 7263 Apr, [facility] [place] [facility] [address] [id number] [place] [address]- 9752 Apr, [facility] [place] [facility] [address] [id number] [place] [address] 0335 18 Apr, 2013 [facility] [address] [id number] [place] [address]- 8910 Apr, [facility] [address] [id number] [place] [address] 2546 27 Mar, 2013 [facility] [address] [id number] [place] [address]- 4076 Mar, 2012 [facility] [address] [id number] [place] [address] 2545 Mar, [facility] [address] [id number] [place] [address]- 3480 Mar, [facility] [address] [id number] [place] [address]- 8547 Mar, [facility] [address] [id number] [place] [address]- 4503 Mar, [facility] [address] [id number] [place] [address]- 4537 Jan, [facility] [address] [id number] [place] [address]- 5272 Jan, [facility] [address] [id number] [place] [address]- 2691 Jan, [facility] [place] [facility] [address] [id number] [place] [address] 2549 Jan, [facility] [address] [id number] [place] [address]- 2547 Jan, [facility] [place] [facility] [address] [id number] [place] [address]- 3978 Dec, [facility] [place] [facility] [address] [id number] [place] [address] 254 Dec, [facility] [place] [facility] [address] [id number] [place] [address]- 7714 Dec, [facility] [address] [id number] [place] [address]- 5451 Dec, [facility] [place] [facility] [address] [id number] [place] [address]- 4752 Dec, [facility] [place] [facility] [address] [id number] [place] [address]- 2215 Dec, [facility] [place] [facility] [address] [id number] [place] [address]- 8067 Dec, [facility] [address] [id number] [place] [address]- 4849 Dec, [facility] [place] [facility] [address] [id number] [place] [address]- 4213 October, [facility] [address] [id number] [place] [address]- 2410 October, [facility] [address] [id number] [place] [address]- 6955 October, [facility] [place] [facility] [address] [id number] [place] [address]- 1495 Oct, [facility] [place] [facility] [address] [id number] [place] [address]- 4705 Oct, [facility] [place] [facility] [address] [id number] [place] [address]- 2547 Oct, [facility] [place] [facility] [address] [id number] [place] [address]- 6849 Oct, [facility] [place] [facility] [address] [id number] [place] [address]- 7123 Aug, [facility] [place] [facility] [address] [id number] [place] [address]- 2296 Aug, [facility] [place] [facility] [address] [id number] [place] [address]- 7615 05 Aug, 2012 [facility] [place] [facility] [address] [id number] [place] [address]- 6329 Jul, [facility] [place] [facility] [address] [id number] [place] [address]- 6206 May, [facility] [place] [facility] [address] [id number] [place] [address]- 7774 May, [facility] [place] [facility] [address] [facility] [id number] [place] [address]- 6451 Apr, [facility] [place] [facility] [address] [id number] [place] [address]- 7655 Apr, [facility] [place] [facility] [address] [id number] [place] [address]- 6441 Apr, [facility] [place] [facility] [address] [id number] [place] [address]- 8390 Apr, [facility] [place] [facility] [address] [facility] [id number] [place] [address]- 8043 Apr, [facility] [place] [facility] [address] [id number] [place] [address]- 1953 Apr, [facility] [place] [facility] [address] [facility] [id number] [place] [address]- 7825 Apr, [facility] [place] [facility] [address] [facility] [id number] [place] [address]- 2156 Apr, [facility] [place] [facility] [address] [facility] [id number] [place] [address]- 8719 Apr, [facility] [place] [facility] [address] [facility] [id number] [place] [address]- 7723 Apr, [facility] [place] [facility] [address] [id number] [place] [address]- 3417 14 Apr, 2012 [facility] [place] [facility] [address] [facility] [id number] [place] [address]- 5151 Apr, [facility] [place] [facility] [address] [facility] [id number] [place] [address]- 5440 17 Mar, 2012 [facility] [place] [facility] [address] [id number] [place] [address]- 4619 Jan, [facility] [place] [facility] [address] [id number] [place] [address]- 0007 Dec, [facility] [place] [facility] [address] [id number] [place] [address]- 4907 October, [facility] [place] [facility] [address] [id number] [place] [address]- 0600 Oct, [facility] [place] [facility] [address] [id number] [place] [address]- 7758 Oct, [facility] [place] [facility] [address] [id number] [place] [address]- 3956 Oct, [facility] [place] [facility] [address] [id number] [place] [address]- 3868 Aug, [facility] [place] [facility] [address] [id number] [place] [address]- 9996 Aug, [facility] [place] [facility] [address] [id number] [place] [address]- 1742 Aug, [facility] [place] [facility] [address] [id number] [place] [address]- 7698 Aug, [facility] [place] [facility] [address] [id number] [place] [address]- 2095 Aug, [facility] [place] [facility] [address] [id number] [place] [address]- 0264 Aug, [facility] [place] [facility] [address] [id number] [place] 7268 Jun, [facility] [place] [facility] [address] [id number] [place] [address]- 7654 Apr, [facility] [place] [facility] [address] [id number] [place] [address]- 1604 Jun, [facility] [place] [facility] [address] [id number] [place] [address]- 4456 Jun, [facility] [address] [facility] [id number] [place] [address]- 2546 May, [facility] [address] [facility] [id number] [place] [address]- 2546 May, [facility] [address] [facility] [id number] [place] [address]- 2546 Apr, [facility] [address] [facility] [id number] [place] [address]- 2546 Apr, IMMUNIZATIONS No Known Immunizations SOCIAL HISTORY Never Assessed REASON FOR VISIT Allergy Injections patricia keith PLAN OF CARE VITAL SIGNS MEDICATIONS Unknown Medications RESULTS No Results PROCEDURES Procedure Date Ordered Result Body Site IMMUNOTHERAPY, 2 OR MORE INJECTIONS 2017-06-29 N/A IMMUNOTHERAPY INJECTIONS Jun 29, 2017 INSTRUCTIONS MEDICATIONS ADMINISTERED No Known [...] History see above surgeries Hospitalization History Anaphylactic shock-[facility] 08/23/16
--- OUTSIDE RECORDS SUMMARY | 2018-07-18 07:59 | XMS REPORT ---
Author Author BRANDY SAGAR [facility] Address [address] [place] [address] Care Team Providers Care Loss Prevention Supervisor Name Role Phone TEZ NAVAHANY Unavailable PROBLEMS Type Condition ICD9-CM Code LPP44-VO Code Onset Dates Condition Status SNOMED Code Problem Migraine with aura and without status migrainosus, not intractable G43.109 Active 3085588 Problem PCOS (polycystic ovarian syndrome) E28.2 Active 59599692 Problem Uncomplicated severe persistent asthma J45.50 Active 793694719 Problem Severe persistent asthma with exacerbation J45.51 Active 119520356 Problem Other elevated white blood cell (WBC) count D72.828 Active 792679428 Problem Multiple food allergies Z91.018 Active 211349716 Problem Pure hypercholesterolemia E78.00 Active 803495773 Problem Current chronic use of inhaled steroid Z79.51 Active 352851634 Problem Asthma exacerbation J45.901 Active 897151134 Problem ADD (attention deficit disorder) F90.0 Active 442492042 Problem Allergic rhinitis due to pollen J30.1 Active 35080765 Problem Vitamin D deficiency E55.9 Active 36060036 Problem Major depressive disorder, recurrent episode, mild F33.0 Active 537764089 Problem Acquired hypothyroidism E03.9 Active 131695138 Problem Gastroesophageal reflux disease without esophagitis K21.9 Active 848019467 ALLERGIES No Information ENCOUNTERS Encounter Location Date Diagnosis [facility] [address] [address] Dec, [facility] [id number] [place] [address] 54379- 2534 October, Allergic rhinitis due to pollen J30.1 [facility] [address], [place] [address] 9[address] October, Allergic rhinitis due to pollen J30.1 [facility] [id number] [place] [address] 82633- 7388 Oct, [place] [address] 02292- 2682 Oct, Allergic rhinitis due to pollen J30.1 [place] [id number] [place] [address] 08994- 8182 Oct, [place] [address] 96661- 9502 Oct, Allergic rhinitis due to pollen J30.1 [place] [id number] [place] [address] 58602- 5704 Oct, Severe persistent asthma with exacerbation J45.51 and Pneumonia due to Haemophilus influenzae, unspecified laterality, unspecified part of lung J14 [place] [id number] [place] [address] 30901- 8655 Oct, ADD (attention deficit disorder) F90.0 [place] [id number] [place] [address] 77958- 7386 Aug, Haemophilus influenzae infection A49.2 [place] [address] 09151- 4436 Aug, Cough productive of purulent sputum R05 [place] [id number] [place] [address] 39302- 9098 Aug, [place] [id number] [place] [address] 47633- 2912 Aug, Pulmonary congestion R09.89 [place] [id number] [place] [address] 79543- 4326 Aug, Severe persistent asthma with exacerbation J45.51 ; Hiatal hernia K44.9 and Gastroesophageal reflux disease without esophagitis K21.9 [place] [id number] [place] [address] 48847- 3962 Aug, Other elevated white blood cell (WBC) count D72.828 [place] [address] 71322- 0076 Aug, Uncomplicated severe persistent asthma J45.50 [facility] [address] [id number]- 2660 Aug, Pure hypercholesterolemia E78.00 ; Uncomplicated severe persistent asthma J45.50 and Acquired hypothyroidism E03.9 [facility] [address] 29734- 3169 Aug, Acquired hypothyroidism E03.9 ; Pure hypercholesterolemia E78.00 and Uncomplicated severe persistent asthma J45.50 [place] [address] 927794- 5617 15 Aug, 2017 Allergic rhinitis due to pollen J30.1 [place] [address] 04970- 1287 Aug, Allergic rhinitis due to pollen J30.1 [place] [address] 48082- 1931 Aug, [facility] [address] [id number] Jul, Pharyngitis, unspecified etiology J02.9 and Lymphadenopathy R59.1 [place] [address] 44145- 0746 Jul, ADD (attention deficit disorder) F90.0 [place] [address] 05511- 0412 Jul, Allergic rhinitis due to pollen J30.1 [place] [address] 06293- 0400 Jul, Dental examination Z01.20 [facility] [address] 37074- 0386 Jun, Cough productive of purulent sputum R05 [place] [address] 61324- 2930 Jun, Allergic rhinitis due to pollen J30.1 [place] [address] [place] [address] 74097- 9842 Jun, [place] [id number] [place] [address] 27686- 6560 Jun, Allergic rhinitis due to pollen J30.1 [place] [id number] [place] [address] 65996- 1389 Jun, Allergic rhinitis due to pollen J30.1 [place] [id number] [place] [address] 67129- 2909 May, Allergic rhinitis due to pollen J30.1 [place] [id number] [place] [address] 15019- 6756 May, Pneumonia due to Haemophilus influenzae, unspecified laterality, unspecified part of lung J14 [place] [address] 97194- 9382 May, Allergic rhinitis due to pollen J30.1 [place] [id number] [place] [address] 60536- 5367 May, Other adverse food reactions, not elsewhere classified, initial encounter T78.1XXA and Pneumonia due to Haemophilus influenzae, unspecified laterality, unspecified part of lung J14 [place] [id number] [place] [address] 61374- 9271 May, Pneumonia due to Haemophilus influenzae, unspecified laterality, unspecified part of lung J14 [place] [address] [place] [address] 79130- 7775 May, Multiple food allergies Z91.018 ; Uncomplicated severe persistent asthma J45.50 ; Cough productive of purulent sputum R05 and Uses central nervous system stimulants F15.90 [place] [address] [place] [address] 07899- 9612 Apr, Allergic rhinitis due to pollen J30.1 [place] [address] 05686- 7143 Apr, Allergic rhinitis due to pollen J30.1 [place] [address] 26574- 2245 Apr, Allergic rhinitis due to pollen J30.1 [place] [address] 59557- 4514 11 Apr, 2017 ADD (attention deficit disorder) F90.0 [place] [address] 25510- 3301 28 Mar, 2017 Allergic rhinitis due to pollen J30.1 [place] [address] 02741- 1232 21 Mar, 2017 Encounter for immunization Z23 [place] [address] 97987- 9090 19 Mar, 2017 [place] [address] 76196- 9809 14 Mar, 2017 Allergic rhinitis due to pollen J30.1 [place] [address] 36313- 3787 07 Mar, 2017 Allergic rhinitis due to pollen J30.1 [place] [address] 32051- 9455 Jan, Allergic rhinitis due to pollen J30.1 [place] [address] 43430- 7004 Jan, Allergic rhinitis due to pollen J30.1 [place] [address] 27819- 4129 Dec, Uncomplicated severe persistent asthma J45.50 [place] [address] 60360- 7898 Dec, Allergic rhinitis due to pollen J30.1 [place] [address] 55890- 7768 Dec, Allergic rhinitis due to pollen J30.1 [place] [address], [place] [address]- 8192 Dec, Allergic rhinitis due to pollen J30.1 [place] [id number] [place] [address] 12128- 5399 Dec, ADD (attention deficit disorder) F90.0 [place] [id number] [place] [address] 48625- 4518 Dec, Allergic rhinitis due to pollen J30.1 [place] [id number] [place] [address] 38720- 6512 Dec, Visit for TB skin test Z11.1 and Screening for tuberculosis Z11.1 [place] [id number] [place] [address] 69061- 2338 Dec, Uncomplicated severe persistent asthma J45.50 ; Palpitations R00.2 ; Pericardial effusion (noninflammatory) I31.3 and Chest discomfort R07.89 [place] [id number] [place] [address] 91705- 4166 Dec, Allergic rhinitis due to pollen J30.1 [place] [id number] [place] [address] 20343- 4069 Dec, Chronic cough R05 [place] [id number] [place] [address] 14151- 4423 Dec, [place] [id number] [place] [address] 07123- 6750 Dec, Allergic rhinitis due to pollen J30.1 [place] [id number] [place] [address] 11118- 6261 Dec, Allergic rhinitis due to pollen J30.1 [place] [address] [place] [address] 39346- 7038 Dec, Chronic cough R05 [place] [id number] [place] [address] 21459- 5249 October, Allergic rhinitis due to pollen J30.1 [facility] [id number] [place] [address] 54582- 5489 October, Allergic rhinitis due to pollen J30.1 [facility] [id number] [place] [address] 98427- 5316 October, [place] [address] 55227- 2206 October, Asthma exacerbation J45.901 [place] [address] [place] [address] 51409- 0822 October, Asthma exacerbation J45.901 and Current chronic use of inhaled steroid Z79.51 [place] [address] [place] [address] 15389- 3803 October, Uncomplicated severe persistent asthma J45.50 [place] [address] [place] [address] 90706- 2324 October, Allergic rhinitis due to pollen J30.1 [place] [address] [place] [address] 29736- 9762 Oct, [place] [address] [place] [address] 88733- 1504 Oct, Asthma exacerbation J45.901 and Sputum production R05 [place] [address] [place] [address] 54068- 7994 Oct, Asthma exacerbation J45.901 [place] [address] [place] [address] 41021- 1185 Oct, ADD (attention deficit disorder) F90.0 [place] [address] 95475- 0697 Oct, ADD (attention deficit disorder) F90.0 [place] [address] [place] [address] 01077- 2754 Aug, Allergic rhinitis due to pollen J30.1 [place] [address] [place] [address] 20372- 0624 Aug, Atypical pneumonia J18.9 [place] [address] 87194- 4135 Aug, Allergic rhinitis due to pollen J30.1 [place] [address] 37051- 6375 Aug, Acquired hypothyroidism E03.9 [place] [address] 55249- 8719 Aug, Multiple food allergies Z91.018 ; Elevated blood pressure reading R03.0 and Anaphylaxis, subsequent encounter T78.2XXD [place] [address] [place] [address] [id number] Aug, [address] 33510- 4223 Aug, Anaphylaxis, initial encounter T78.2XXA [place] [address] 05602- 0543 Aug, Allergic rhinitis due to pollen J30.1 [place] [address] 57569- 4904 Aug, Dental examination Z01.[address] 70325- 4667 Aug, Allergic rhinitis due to pollen J30.1 [place] [address] 91285- 6775 Aug, Acquired hypothyroidism E03.9 and Pure hypercholesterolemia E78.[address] 37188- 2816 Aug, ADD (attention deficit disorder) F90.0 ; Acquired hypothyroidism E03.9 and Pure hypercholesterolemia E78.00 [place] [address] 14788- 8097 Aug, Asthma exacerbation J45.901 [facility] [id number] [place] [address] 57885- 4421 Jul, Allergic rhinitis due to pollen J30.1 [facility] [address] [place] [address] 14380- 3862 Jul, Allergic rhinitis due to pollen J30.1 [facility] [id number] [place] [address] 63138- 9702 Jul, [place] [id number] [place] [address] 03572- 9259 Jul, Allergic rhinitis due to pollen J30.1 [place] [address] [place] [address] 13865- 0731 Jul, Other skilled nursing (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 and ADD ( attention deficit disorder) F90.0 [place] [id number] [place] [address] 05318- 5155 Jul, Other oysterman (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 and ADD ( attention deficit disorder) F90.0 [place] [id number] [place] [address] 54650- 5444 Jul, [place] [id number] [place] [address] 61071- 2517 Jun, Allergic rhinitis due to pollen J30.1 [facility] [address] [place] [address] 19243- 5084 Jun, Allergic rhinitis due to pollen J30.1 [facility] [address] [place] [address] 08381- 9567 Jun, [place] [id number] [place] [address] 79246- 5663 May, Allergic rhinitis due to pollen J30.1 [place] [address] [place] [address] 56061- 6402 May, Allergic rhinitis due to pollen J30.1 [place] [id number] [place] [address] 87089- 9398 Apr, Allergic rhinitis due to pollen J30.1 [place] [id number] [place] [address] 22837- 7365 Apr, Allergic rhinitis due to pollen J30.1 [place] [address] 82384- 0336 Apr, Encounter for immunization Z23 [place] [address] 95200- 6485 Apr, [place] [address] 88398- 0818 Mar, Allergic rhinitis due to pollen J30.1 [place] [address] [place] [address] 87623- 3827 Mar, Multiple allergies Z88.9 [place] [address] 52737- 8127 Mar, Candidal vaginitis B37.3 [place] [address] 12627- 7363 Mar, Allergic rhinitis due to pollen J30.1 [place] [id number] [place] [address] 67118- 6961 Jan, Asthma exacerbation J45.901 ; Fatigue, unspecified type R53.83 and Community acquired pneumonia J18.9 [facility] [id number] [place] [address] [id number] Jan, Encounter for dental examination Z01.20 [place] [address] 34491- 9467 Jan, Allergic rhinitis due to pollen J30.1 [place] [id number] [place] [address] 50273- 3505 Dec, Allergic rhinitis due to pollen J30.1 [place] [address] [facility] [id number] [address]- 8001 Dec, [facility] [address] [facility] [id number], [place] [address]- 0694 Dec, Allergic rhinitis due to pollen J30.1 [facility] [address] [facility] [id number], [place] [address]- 5770 Dec, [facility] [address] [facility] [id number], [place] [address]- 4012 Dec, [facility] [address] [facility] [id number], [place] [address]- 7278 Dec, [facility] [address] [facility] [id number], [place] [address]- 6064 Dec, Allergic rhinitis due to pollen J30.1 [facility] [address], [place] [address]- 5213 Dec, [facility] [id number], [place] [address]- 8240 Dec, [facility] [address], [place] [address]- 0325 Dec, Allergic rhinitis due to pollen J30.1 [facility] [id number], [place] [address]- 8476 October, Allergic rhinitis due to pollen J30.1 [facility] [id number] [address]- 3762 October, Allergic rhinitis due to pollen J30.1 [facility] [address] [facility] [id number], [place] [address]- 7546 October, [facility] [id number] [address]- 3567 October, [facility] [id number], [place] [address]- 3487 October, ADD (attention deficit disorder) F90.0 ; Major depressive disorder, recurrent episode, mild F33.0 and Uncomplicated severe persistent asthma J45.50 [place] [id number] [place] [address] 93842- 6832 Oct, Allergic rhinitis due to pollen J30.1 [place] [id number] [place] [address] 98769- 8259 14 Oct, 2015 ADD (attention deficit disorder) F90.0 [place] [address] 97961- 2973 06 Oct, 2015 Allergic rhinitis due to pollen 477.0 [place] [address] 40923- 3632 Aug, Allergic rhinitis due to pollen 477.0 [place] [address] 57983- 8296 Aug, 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 [place] [address] 95301- 4020 Aug, [place] [id number] [place] [address] 21599- 4578 Aug, Allergic rhinitis due to pollen 477.0 [place] [id number] [place] [address] 74485- 2288 Aug, Allergic rhinitis due to pollen 477.0 [place] [address] [place] [address] 31571- 7599 Aug, Allergic rhinitis due to pollen 477.0 [place] [id number] [place] [address] 50141- 5034 Aug, Exposure to influenza Z20.828 [facility] [id number] [place] [address] [id number] Aug, Encounter for dental examination and cleaning without abnormal findings Z01.20 [facility] [id number] [place] [address] 64688- 1171 18 Aug, 2015 Allergic rhinitis due to pollen J30.1 [place] [id number] [place] [address] 24202- 5261 Aug, [place] [id number] [place] [address] 48648- 1718 Aug, 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 [place] [id number] [place] [address] 15246- 5319 Jul, [place] [id number] [place] [address] 41874- 2296 Jul, Allergic rhinitis due to pollen 477.0 [place] [address] 93302- 1795 Jul, [place] [address] 82418- 6123 Jul, Allergic rhinitis due to pollen 477.0 [place] [address] 62344- 0748 Jun, ADD (attention deficit disorder) F90.0 ; Acquired hypothyroidism E03.9 ; PCOS (polycystic ovarian syndrome) E28.2 ; Polyarthralgia M25.50 and On stimulant medication Z79.899 [place] [id number] [place] [address] 65981- 8614 Apr, Encounter for immunization Z23 [place] [address] 52439- 6875 16 Mar, 2015 Allergic rhinitis due to pollen 477.0 [place] [id number] [place] [address] 19396- 9952 14 Mar, 2015 Influenza vaccine administered V04.81 [place] [address] 03807- 7494 03 Mar, 2015 [place] [id number] [place] [address] 64777- 8566 Jan, Allergic rhinitis due to pollen 477.0 [place] [address] [facility] [id number], [place] [address]- 6661 Jan, Allergic rhinitis due to pollen 477.0 [facility] [address], [place] [address]- 0359 Jan, Allergic rhinitis due to pollen 477.0 [facility] [address] [id number] Jan, Dental examination V72.2 [facility] [id number] [place] [address] 28258- 0691 Dec, Allergic rhinitis due to pollen 477.0 [facility] [address] [place] [address] 71392- 2605 October, [facility] [address] [place] [address] 94653- 7042 Oct, [facility] [id number] [place] [address] 84779- 7661 Oct, [facility] [address], [place] [address]- 4945 Aug, [facility] [address], [place] [address]- 2216 Aug, [facility] [address], [place] [address]- 4144 Aug, [facility] [address], [place] [address]- 2069 Aug, [facility] [address], [place] [address]- 9602 Aug, [facility] [address], [place] [address]- 7530 Aug, [facility] [address] 3937 Aug, [facility] [address], [place] [address]- 8517 Aug, [facility] [place] [facility] [address] [id number] [place] [address]- 1163 Jul, [facility] [place] [facility] [address] [id number] [place] [address]- 1405 Jul, [facility] [place] [facility] [address] [id number] [place] [address]- 6331 Jul, [facility] [place] [facility] [address] [id number] [place] [address]- 7950 Jul, [facility] [place] [facility] [address] [id number] [place] [address]- 8329 Jul, [facility] [place] [facility] [address] [id number] [place] [address]- 0422 Jul, [facility] [place] [facility] [address] [id number] [place] [address]- 8974 Jul, [facility] [place] [facility] [address] [id number] [place] [address]- 4479 Jul, [facility] [place] [facility] [address] [id number] [place] [address] Jul, [facility] [place] [facility] [address] [id number] [place] [address] 2019 Jul, [facility] [place] [facility] [address] [id number] [place] [address] Jul, [facility] [place] [facility] [address] [id number] [place] [address] Jun, [facility] [place] [facility] [address] [id number] [place] [address] Jun, [facility] [place] [facility] [address] [id number] [place] [address] Jun, [facility] [place] [facility] [address] [id number] [place] [address] Jun, [facility] [place] [facility] [address] [id number] [place] [address] Jun, [facility] [place] [facility] [address] [id number] [place] [address] Jun, [facility] [place] [facility] [address] [id number] [place] [address] May, [facility] [place] [facility] [address] [id number] [place] [address] May, [facility] [place] [facility] [address] [id number] [place] [address] May, [facility] [place] [facility] [address] [id number] [place] [address] May, [facility] [place] [facility] [address] [id number] [place] [address] May, [facility] [place] [facility] [address] [id number] [place] [address] May, [facility] [place] [facility] [address] [id number] [place] [address] Apr, [facility] [place] [facility] [address] [id number] [place] [address] Apr, [facility] [place] [facility] [address] [id number] [place] [address] 30 Mar, 2014 [facility] [place] [facility] [address] [id number] [place] [address] 30 Mar, 2013 [facility] [place] [facility] [address] [id number] [place] [address] 30 Mar, 2013 [facility] [place] [facility] [address] [id number] [place] [address] 30 Mar, 2013 [facility] [place] [facility] [address] [id number] [place] [address] 19 Mar, 2014 [facility] [place] [facility] [address] [id number] [place] [address] Mar, [facility] [place] [facility] [address] [id number] [place] [address] Jan, [facility] [place] [facility] [address] [id number] [place] [address] Jan, [facility] [place] [facility] [address] [id number] [place] [address] Jan, [facility] [place] [facility] [address] [id number] [place] [address] Jan, [facility] [place] [facility] [address] [id number] [place] [address] Jan, [facility] [place] [facility] [address] [id number] [place] [address] Jan, [facility] [place] [facility] [address] [id number] [place] [address] Dec, [facility] [place] [facility] [address] [id number] [place] [address] Dec, [facility] [place] [facility] [address] [id number] [place] [address] Dec, [facility] [place] [facility] [address] [id number] [place] [address] Dec, [facility] [place] [facility] [address] [id number] [place] [address] 6147 Dec, [facility] [place] [facility] [address] [id number] [place] [address] 39[address] Dec, [facility] [place] [facility] [address] [id number] [place] [address] 9004 Dec, [facility] [place] [facility] [address] [id number] [place] [address]113 Dec, [facility] [place] [facility] [address] [id number] [place] [address]43 Dec, [facility] [place] [facility] [address] [id number] [place] [address] 7158 Dec, [facility] [place] [facility] [address] [id number] [place] [address] 2912 Dec, [facility] [place] [facility] [address] [id number] [place] [address] 1413 Dec, [facility] [place] [facility] [address] [id number] [place] [address] 2459 Dec, [facility] [place] [facility] [address] [id number] [place] [address] 9807 Dec, [facility] [place] [facility] [address] [id number] [place] [address] 8117 Dec, [facility] [place] [facility] [address] [id number] [place] [address] 4576 Dec, [facility] [place] [facility] [address] [id number] [place] [address] 3155 October, [facility] [place] [facility] [address] [id number] [place] [address] 6065 October, [facility] [place] [facility] [address] [id number] [place] [address] 8327 October, [facility] [place] [facility] [address] [id number] [place] [address] 1385 October, [facility] [place] [facility] [address] [id number] [place] [address] 4246 October, [facility] [place] [facility] [address] [id number] [place] [address] 9918 October, [facility] [place] [facility] [address] [id number] [place] [address] 8008 Oct, [facility] [place] [facility] [address] [id number] [place] [address] 0607 Oct, [facility] [place] [facility] [address] [id number] [place] [address] 4350 Oct, [facility] [place] [facility] [address] [id number] [place] [address]- 3763 17 Oct, 2013 [facility] [place] [facility] [address] [id number] [place] [address]- 9566 Oct, [facility] [place] [facility] [address] [id number] [place] [address] 0359 Oct, [facility] [place] [facility] [address] [id number] [place] [address] 6289 Aug, [facility] [place] [facility] [address] [id number] [place] [address] 3705 Aug, [facility] [place] [facility] [address] [id number] [place] [address] 7216 Aug, [facility] [place] [facility] [address] [id number] [place] [address]- 6037 Aug, [facility] [place] [facility] [address] [id number] [place] [address] 8333 Jul, [facility] [place] [facility] [address] [id number] [place] [address]- 3526 Jul, [facility] [place] [facility] [address] [id number] [place] [address]- 0394 Jul, [facility] [place] [facility] [address] [id number] [place] [address] 2039 Jul, [facility] [place] [facility] [address] [id number] [place] [address]- 5529 Jun, [facility] [place] [facility] [address] [id number] [place] [address]- 8966 Jun, [facility] [place] [facility] [address] [id number] [place] [address] 5430 Jun, [facility] [place] [facility] [address] [id number] [place] [address]- 0387 Jun, [facility] [place] [facility] [address] [id number], [place] [address] 47[address] Jun, [facility] [place] [facility] [address] [id number] [place] [address] Jun, [facility] [place] [facility] [address] [id number] [place] [address]- 4787 Jun, [facility] [place] [facility] [address] [facility] [id number] [place] [address]- 8547 Jun, [facility] [place] [facility] [address] [id number], [place] [address]15 Jun, [facility] [place] [facility] [address] [id number] [place] [address]- 8071 Jun, [facility] [place] [facility] [address] [id number] [place] [address]- 1407 Jun, [facility] [place] [facility] [address] [id number], [place] [address] 15[address] May, [facility] [place] [facility] [address] [id number], [place] [address] 6698 May, [facility] [place] [facility] [address] [id number], [place] [address] May, [facility] [place] [facility] [address] [id number], [place] [address]- 3028 May, [facility] [place] [facility] [address] [id number], [place] [address]- 3646 May, [facility] [place] [facility] [address] [id number], [place] [address] 8741 May, [facility] [place] [facility] [address] [id number], [place] [address] 1704 May, [facility] [place] [facility] [address] [facility] [id number], [place] [address]- 6446 Apr, [facility] [place] [facility] [address] [id number], [place] [address] 8498 Apr, [facility] [place] [facility] [address] [id number] [place] [address]- 4386 18 Apr, 2013 [facility] [address] [id number] [place] [address]- 4143 Apr, [facility] [address] [id number] [place] [address] 2546 27 Mar, 2013 [facility] [address] [id number] [place] [address] 9826 Mar, 2012 [facility] [address] [id number] [place] [address] 2541 Mar, [facility] [address] [id number] [place] [address]- 1161 Mar, [facility] [address] [id number] [place] [address]- 7806 Mar, [facility] [address] [id number] [place] [address]- 1306 Mar, [facility] [address] [id number] [place] [address]- 5340 Jan, [facility] [address] [id number] [place] [address]- 9181 Jan, [facility] [address] [id number] [place] [address]- 9968 Jan, [facility] [place] [facility] [address] [id number] [place] [address] 2549 Jan, [facility] [address] [id number] [place] [address]- 2542 Jan, [facility] [place] [facility] [address] [id number] [place] [address]- 4414 Dec, [facility] [place] [facility] [address] [id number] [place] [address] 2549 Dec, [facility] [place] [facility] [address] [id number] [place] [address]- 3310 Dec, [facility] [address] [id number] [place] [address]- 3698 Dec, [facility] [place] [facility] [address] [id number] [place] [address]- 3092 Dec, [facility] [place] [facility] [address] [id number] [place] [address]- 5889 Dec, [facility] [place] [facility] [address] [id number] [place] [address]- 3607 Dec, [facility] [address] [id number] [place] [address]- 0831 Dec, [facility] [place] [facility] [address] [id number] [place] [address]- 9594 October, [facility] [address] [id number] [place] [address]- 7074 October, [facility] [address] [id number] [place] [address]- 5150 October, [facility] [place] [facility] [address] [id number] [place] [address]- 1788 Oct, [facility] [place] [facility] [address] [id number] [place] [address]- 7081 Oct, [facility] [place] [facility] [address] [id number] [place] [address]- 2486 Oct, [facility] [place] [facility] [address] [id number], [place] [address]- 8939 Oct, [facility] [place] [facility] [address] [id number] [place] [address]- 3418 Aug, [facility] [place] [facility] [address] [id number] [place] [address]- 2766 Aug, [facility] [place] [facility] [address] [id number], [place] [address]- 1253 05 Aug, 2012 [facility] [place] [facility] [address] [id number], [place] [address]- 3957 Jul, [facility] [place] [facility] [address] [id number] [place] [address]- 6337 May, [facility] [place] [facility] [address] [id number] [place] [address]- 5673 May, [facility] [place] [facility] [address] [facility] [id number] [place] [address]- 3409 Apr, [facility] [place] [facility] [address] [id number] [place] [address]- 8745 Apr, [facility] [place] [facility] [address] [id number] [place] [address]- 1236 Apr, [facility] [place] [facility] [address] [id number] [place] [address]- 9417 Apr, [facility] [place] [facility] [address] [facility] [id number] [place] [address]- 4905 Apr, [facility] [place] [facility] [address] [id number] [place] [address]- 6825 Apr, [facility] [place] [facility] [address] [facility] [id number] [place] [address]- 2013 Apr, [facility] [place] [facility] [address] [facility] [id number] [place] [address]- 7174 Apr, [facility] [place] [facility] [address] [facility] [id number], [place] [address]- 8397 Apr, [facility] [place] [facility] [address] [facility] [id number], [place] [address]- 9628 Apr, [facility] [place] [facility] [address] [id number] [place] [address]- 2481 14 Apr, 2012 [facility] [place] [facility] [address] [facility] [id number], [place] [address]- 6311 Apr, [facility] [place] [facility] [address] [facility] [id number] [place] [address]- 9007 17 Mar, 2012 [facility] [place] [facility] [address] [id number] [place] [address]- 3248 Jan, [facility] [place] [facility] [address] [id number] [place] [address]- 6756 Dec, [facility] [place] [facility] [address] [id number] [place] [address]- 5414 October, [facility] [place] [facility] [address] [id number] [place] [address]- 4581 Oct, [facility] [place] [facility] [address] [id number] [place] [address]- 8457 Oct, [facility] [place] [facility] [address] [id number] [place] [address]- 7712 Oct, [facility] [place] [facility] [address] [id number] [place] [address]- 2638 Aug, [facility] [place] [facility] [address] [id number] [place] [address]- 7065 Aug, [facility] [place] [facility] [address] [id number] [place] [address]- 5365 Aug, [facility] [place] [facility] [address] [id number] [place] [address]- 1136 Aug, [facility] [place] [facility] [address] [id number] [place] [address]- 1038 Aug, [facility] [place] [facility] [address] [id number] [place] [address]- 2767 Aug, [facility] [place] [facility] [address] [id number] [place] [address] Jun, [facility] [place] [facility] [address] [id number] [place] [address]- 0253 Apr, [facility] [place] [facility] [address] [id number] [place] [address]- 4649 Jun, [facility] [place] [facility] [address] [id number], [place] [address]- 2256 Jun, [facility] [address] [facility] [id number] [place] [address]- 3416 May, [facility] [address] [id number], [place] [address]- 2636 May, [facility] [address] [facility] [id number], [place] [address]- 2809 Apr, [facility] [address] [facility] [id number], [place] [address]- 9676 Apr, IMMUNIZATIONS No Known Immunizations SOCIAL HISTORY Never Assessed REASON FOR VISIT Lab order PLAN OF CARE VITAL SIGNS MEDICATIONS Unknown [...]
--- OUTSIDE RECORDS SUMMARY | 2018-07-18 08:02 | XMS REPORT ---
Author Author BRANDY SAGAR [facility] Address [address] [place] [address] Care Team Providers Care Dyslexia Teacher Name Role Phone TEZ NAVAHANY Unavailable PROBLEMS Type Condition ICD9-CM Code [id number] Code Onset Dates Condition Status SNOMED Code Problem ADD (attention deficit disorder) F90.0 Active 719072467 Problem Major depressive disorder, recurrent episode, mild F33.0 Active 340946314 Problem Allergic rhinitis due to pollen J30.1 Active 96460424 Problem Current chronic use of inhaled steroid Z79.51 Active 281809493 Problem Asthma exacerbation J45.901 Active 133886111 Problem Pure hypercholesterolemia E78.00 Active 822831810 Problem PCOS (polycystic ovarian syndrome) E28.2 Active 99734889 Problem Multiple food allergies Z91.018 Active 763267945 Problem Dental examination Z01.20 Active 374985929 Problem Uncomplicated severe persistent asthma J45.50 Active 989603251 Problem Gastroesophageal reflux disease without esophagitis K21.9 Active 420381344 Problem Migraine with aura and without status migrainosus, not intractable G43.109 Active 1882998 Problem Vitamin D deficiency E55.9 Active 34412437 Problem Acquired hypothyroidism E03.9 Active 521588613 ALLERGIES Substance Reaction Event Type Date Status Zithromax Unknown Drug Allergy Aug, Active Ceftin Unknown Drug Allergy Aug, Active Morphine Patient is a fast metabolizer and medication is not effective Drug Allergy Aug, Active FLUORIDE VARNISH Unknown Non Drug Allergy Aug, Active [place] Unknown Non Drug Allergy Aug, Active Soybeans Unknown Non Drug Allergy Aug, Active Wheat Unknown Non Drug Allergy Aug, Active Malt Extract Unknown Non Drug Allergy Aug, Active Asprin Unknown Non Drug Allergy Aug, Active SOCIAL HISTORY No smoking Hx information available PLAN OF CARE Activity Details Follow Up 6 Months Reason:ADD VITAL SIGNS Height 68 in 2016-08-05 Temperature 98.4 degrees Fahrenheit 2016-08-05 Heart Rate 92 bpm 2016-08-05 Respiratory Rate 20 2016-08-05 Blood pressure systolic 126 mmHg 2016-08-05 Blood pressure diastolic 84 mmHg 2016-08-05 MEDICATIONS Medication Instructions Dosage Frequency Start Date End Date Duration Status MetFORMIN HCl ER 1000 mg Orally Once a day 1 tablet with evening meal 24h Active ProAir RespiClick 108 (90 Base) MCG/ACT Inhalation every 4 hrs 1 puff as needed 4h 30 Dec, 2015 Active Xopenex HFA 45 mcg/actuation 2 puffs by Inhalation route every 4-6 hoursPRN Apr, Active Symbicort 160-4.5 MCG/ACT Inhalation Twice a day 2 puffs 12h Active Zoloft 50 MG Orally Once a day 1 tablet 24h Active Ibuprofen 800 MG Orally every 8 hours 1 tablet 8h 30 days Active Levothyroxine Sodium 100 MCG Orally Once a day 1 tablet 24h Active Lutera 0.1-20 MG-MCG Orally Once a day 1 tablet 24h Active Ondansetron 8 MG DISSOLVE ONE TABLET UNDER TONGUE EVERY 6 HOURS NEEDED FOR NAUSEA OR VOMITING 20 Active Magnesium Oxide 250 MG Orally Once a day 2 tablets 24h Active Singulair 10 mg take 1 tablet by Oral route 1 time per day Apr, Active Nasonex 50 mcg/actuation Nasally 2 times a day 1 spray in each nare 12h Jan, 90 days Active SudoGest 60 MG DIRECTED 20 Active Xyzal 5 mg 1 tablet by Oral route 2 times per day Mar, Active Vitamin D 2000 UNIT Orally Once a day 1 tablet 24h Active pantoprazole 40 mg by oral route Once a day 1 tablet 24h Aug, Active Concerta 54 MG Orally Once a day 1 tablet in the morning 24h 20 Jul, 2015 Active RESULTS No Results PROCEDURES Procedure Date Ordered Related Diagnosis Body Site Office Visit, Est Pt., Level 3 Aug 05, 2016 IMMUNIZATIONS No Known Immunizations
--- OUTSIDE RECORDS SUMMARY | 2018-07-18 08:02 | XMS REPORT ---
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 Name Role Phone TEZ NAVAHANY Unavailable PROBLEMS Type Condition ICD9-CM Code JMH84-OT Code Onset Dates Condition Status SNOMED Code Problem Migraine with aura and without status migrainosus, not intractable G43.109 Active 9715477 Problem PCOS (polycystic ovarian syndrome) E28.2 Active 67441666 Problem Uncomplicated severe persistent asthma J45.50 Active 376630254 Problem Severe persistent asthma with exacerbation J45.51 Active 027616078 Problem Other elevated white blood cell (WBC) count D72.828 Active 782808935 Problem Multiple food allergies Z91.018 Active 476706114 Problem Pure hypercholesterolemia E78.00 Active 862581217 Problem Current chronic use of inhaled steroid Z79.51 Active 387437333 Problem Asthma exacerbation J45.901 Active 185244604 Problem ADD (attention deficit disorder) F90.0 Active 087364515 Problem Allergic rhinitis due to pollen J30.1 Active 89769530 Problem Vitamin D deficiency E55.9 Active 65561347 Problem Major depressive disorder, recurrent episode, mild F33.0 Active 409487197 Problem Acquired hypothyroidism E03.9 Active 029954862 Problem Gastroesophageal reflux disease without esophagitis K21.9 Active 150082145 ALLERGIES No Information ENCOUNTERS Encounter Location Date Diagnosis [facility], [place] [address] [address] Dec, [facility], [place] [id number] [place] [address] 30769- 4225 October, Allergic rhinitis due to pollen J30.1 [facility], [place] [address] [address] 89[address] October, Allergic rhinitis due to pollen J30.1 [facility], [place] [id number] [place] [address] 79967- 5764 Oct, [place] [address] 6[address]61- 1491 Oct, Allergic rhinitis due to pollen J30.1 [place] [id number] [place] [address] 53274- 9825 Oct, [place] [address] 73763- 4256 Oct, Allergic rhinitis due to pollen J30.1 [place] [id number] [place] [address] 49829- 0688 Oct, Severe persistent asthma with exacerbation J45.51 and Pneumonia due to Haemophilus influenzae, unspecified laterality, unspecified part of lung J14 [place] [id number] [place] [address] 35724- 8081 Oct, ADD (attention deficit disorder) F90.0 [place] [id number] [place] [address] 84099- 9060 Aug, Haemophilus influenzae infection A49.2 [place] [address] 36056- 6300 Aug, Cough productive of purulent sputum R05 [place] [address] [id number] [place] [address] 83995- 8762 Aug, [place] [id number] [place] [address] 11049- 7306 Aug, Pulmonary congestion R09.89 [place] [id number] [place] [address] 31674- 7938 Aug, Severe persistent asthma with exacerbation J45.51 ; Hiatal hernia K44.9 and Gastroesophageal reflux disease without esophagitis K21.9 [place] [id number] [place] [address] 54636- 2090 Aug, Other elevated white blood cell (WBC) count D72.828 [place] [address] 49114- 3707 Aug, Uncomplicated severe persistent asthma J45.50 [facility], [place] [address] [id number]- 0407 Aug, Pure hypercholesterolemia E78.00 ; Uncomplicated severe persistent asthma J45.50 and Acquired hypothyroidism E03.9 [facility], [place] [address] 64908- 9337 Aug, Acquired hypothyroidism E03.9 ; Pure hypercholesterolemia E78.00 and Uncomplicated severe persistent asthma J45.50 [place] [address] 183828- 6799 15 Aug, 2017 Allergic rhinitis due to pollen J30.1 [place] [address] 80823- 2200 Aug, Allergic rhinitis due to pollen J30.1 [place] [address] 93302- 1658 Aug, [facility] [address] [id number] Jul, Pharyngitis, unspecified etiology J02.9 and Lymphadenopathy R59.1 [place] [address] 77736- 8416 Jul, ADD (attention deficit disorder) F90.0 [place] [address] 75966- 4295 Jul, Allergic rhinitis due to pollen J30.1 [place] [address] 45808- 7651 Jul, Dental examination Z01.20 [facility], [place] [address] 33789- 0616 Jun, Cough productive of purulent sputum R05 [place] [address] 02212- 5898 Jun, Allergic rhinitis due to pollen J30.1 [place] [address] [place] [address] 97311- 4635 Jun, [place] [id number] [place] [address] 29403- 6776 Jun, Allergic rhinitis due to pollen J30.1 [place] [id number] [place] [address] 11219- 3236 Jun, Allergic rhinitis due to pollen J30.1 [place] [id number] [place] [address] 22375- 3751 May, Allergic rhinitis due to pollen J30.1 [place] [id number] [place] [address] 28339- 9397 May, Pneumonia due to Haemophilus influenzae, unspecified laterality, unspecified part of lung J14 [place] [address] 96791- 6686 May, Allergic rhinitis due to pollen J30.1 [place] [id number] [place] [address] 32150- 8635 May, Other adverse food reactions, not elsewhere classified, initial encounter T78.1XXA and Pneumonia due to Haemophilus influenzae, unspecified laterality, unspecified part of lung J14 [place] [id number] [place] [address] 04312- 1776 May, Pneumonia due to Haemophilus influenzae, unspecified laterality, unspecified part of lung J14 [place] [id number] [place] [address] 61241- 2680 May, Multiple food allergies Z91.018 ; Uncomplicated severe persistent asthma J45.50 ; Cough productive of purulent sputum R05 and Uses central nervous system stimulants F15.90 [place] [id number] [place] [address] 41513- 8270 Apr, Allergic rhinitis due to pollen J30.1 [place] [address] 53406- 7870 Apr, Allergic rhinitis due to pollen J30.1 [place] [address] 34425- 0811 Apr, Allergic rhinitis due to pollen J30.1 [place] [address] 10776- 3346 11 Apr, 2017 ADD (attention deficit disorder) F90.0 [place] [address] 86876- 6902 28 Mar, 2017 Allergic rhinitis due to pollen J30.1 [place] [address] 86049- 5847 21 Mar, 2017 Encounter for immunization Z23 [place] [address] 54706- 6798 19 Mar, 2017 [place] [address] 87800- 0383 14 Mar, 2017 Allergic rhinitis due to pollen J30.1 [place] [address] 10599- 0962 07 Mar, 2017 Allergic rhinitis due to pollen J30.1 [place] [address] 57598- 3476 Jan, Allergic rhinitis due to pollen J30.1 [place] [address] 10369- 5068 Jan, Allergic rhinitis due to pollen J30.1 [place] [address] 73251- 6062 Dec, Uncomplicated severe persistent asthma J45.50 [place] [address] 56749- 9481 Dec, Allergic rhinitis due to pollen J30.1 [place] [address] 76697- 8573 Dec, Allergic rhinitis due to pollen J30.1 [place] [address] [address]- 6566 Dec, Allergic rhinitis due to pollen J30.1 [place] [id number] [place] [address] 48700- 6571 Dec, ADD (attention deficit disorder) F90.0 [place] [id number] [place] [address] 23063- 7135 Dec, Allergic rhinitis due to pollen J30.1 [place] [id number] [place] [address] 72887- 5723 Dec, Visit for TB skin test Z11.1 and Screening for tuberculosis Z11.1 [place] [id number] [place] [address] 48515- 7694 Dec, Uncomplicated severe persistent asthma J45.50 ; Palpitations R00.2 ; Pericardial effusion (noninflammatory) I31.3 and Chest discomfort R07.89 [place] [id number] [place] [address] 93226- 5221 Dec, Allergic rhinitis due to pollen J30.1 [place] [id number] [place] [address] 93210- 4599 Dec, Chronic cough R05 [place] [id number] [place] [address] 64440- 2858 Dec, [place] [id number] [place] [address] 75895- 2149 Dec, Allergic rhinitis due to pollen J30.1 [place] [id number] [place] [address] 60326- 9085 Dec, Allergic rhinitis due to pollen J30.1 [place] [address] [place] [address] 92313- 9623 Dec, Chronic cough R05 [place] [id number] [place] [address] 97848- 6745 October, Allergic rhinitis due to pollen J30.1 [facility], [place] [id number] [place] [address] 62829- 7254 October, Allergic rhinitis due to pollen J30.1 [facility], [place] [id number] [place] [address] 34229- 3913 October, [place] [address] 01463- 3838 October, Asthma exacerbation J45.901 [place] [id number] [place] [address] 69638- 8570 October, Asthma exacerbation J45.901 and Current chronic use of inhaled steroid Z79.51 [place] [id number] [place] [address] 51653- 0163 October, Uncomplicated severe persistent asthma J45.50 [place] [id number] [place] [address] 83908- 4923 October, Allergic rhinitis due to pollen J30.1 [place] [id number] [place] [address] 04759- 3579 Oct, [place] [id number] [place] [address] 15017- 3946 Oct, Asthma exacerbation J45.901 and Sputum production R05 [place] [id number] [place] [address] 66313- 2628 Oct, Asthma exacerbation J45.901 [place] [id number] [place] [address] 36081- 8116 Oct, ADD (attention deficit disorder) F90.0 [place] [address] 53094- 3583 Oct, ADD (attention deficit disorder) F90.0 [place] [id number] [place] [address] 01890- 8530 Aug, Allergic rhinitis due to pollen J30.1 [place] [id number] [place] [address] 65401- 3040 Aug, Atypical pneumonia J18.9 [place] [address] 83464- 2314 Aug, Allergic rhinitis due to pollen J30.1 [place] [address] 89521- 9415 Aug, Acquired hypothyroidism E03.9 [place] [address] 46481- 8364 Aug, Multiple food allergies Z91.018 ; Elevated blood pressure reading R03.0 and Anaphylaxis, subsequent encounter T78.2XXD [place] [address] [place] [id number] Aug, [address] 07094- 4809 Aug, Anaphylaxis, initial encounter T78.2XXA [place] [address] 38513- 4314 Aug, Allergic rhinitis due to pollen J30.1 [place] [address] 44885- 2270 Aug, Dental examination Z01.[address] 26623- 0532 Aug, Allergic rhinitis due to pollen J30.1 [place] [address] 56389- 0033 Aug, Acquired hypothyroidism E03.9 and Pure hypercholesterolemia E78.[address] 38376- 5175 Aug, ADD (attention deficit disorder) F90.0 ; Acquired hypothyroidism E03.9 and Pure hypercholesterolemia E78.00 [place] [address] 48128- 1239 Aug, Asthma exacerbation J45.901 [facility], [place] [id number] [place] [address] 06148- 1915 Jul, Allergic rhinitis due to pollen J30.1 [facility], [place] [address] [place] [address] 23718- 7034 Jul, Allergic rhinitis due to pollen J30.1 [facility], [place] [id number] [place] [address] 33502- 2439 Jul, [place] [id number] [place] [address] 72177- 1088 Jul, Allergic rhinitis due to pollen J30.1 [place] [id number] [place] [address] 90486- 7435 Jul, Other snf (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 and ADD ( attention deficit disorder) F90.0 [place] [id number] [place] [address] 51252- 8187 Jul, Other long term care social worker (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 and ADD ( attention deficit disorder) F90.0 [place] [id number] [place] [address] 19321- 2757 Jul, [place] [id number] [place] [address] 47557- 0119 Jun, Allergic rhinitis due to pollen J30.1 [facility], [place] [address] [place] [address] 54648- 2597 Jun, Allergic rhinitis due to pollen J30.1 [facility], [place] [address] [place] [address] 10853- 4076 Jun, [place] [id number] [place] [address] 67943- 0522 May, Allergic rhinitis due to pollen J30.1 [place] [address] [place] [address] 82893- 8562 May, Allergic rhinitis due to pollen J30.1 [place] [id number] [place] [address] 97324- 2763 Apr, Allergic rhinitis due to pollen J30.1 [place] [id number] [place] [address] 86405- 5558 Apr, Allergic rhinitis due to pollen J30.1 [place] [address] 91136- 8910 Apr, Encounter for immunization Z23 [place] [address] 79199- 0501 Apr, [place] [address] 42294- 3846 Mar, Allergic rhinitis due to pollen J30.1 [place] [id number] [place] [address] 67378- 9452 Mar, Multiple allergies Z88.9 [place] [address] 88382- 4695 Mar, Candidal vaginitis B37.3 [place] [address] 47586- 7760 Mar, Allergic rhinitis due to pollen J30.1 [place] [id number] [place] [address] 35744- 8522 Jan, Asthma exacerbation J45.901 ; Fatigue, unspecified type R53.83 and Community acquired pneumonia J18.9 [facility] [id number] [place] [address] [id number] Jan, Encounter for dental examination Z01.20 [place] [address] 41768- 6045 Jan, Allergic rhinitis due to pollen J30.1 [place] [id number] [place] [address] 10456- 2276 Dec, Allergic rhinitis due to pollen J30.1 [place] [address] [facility] [id number] [address]- 8094 Dec, [facility], [place] [address] [facility] [id number] [address]- 4670 Dec, Allergic rhinitis due to pollen J30.1 [facility], [place] [address] [facility] [id number] [address]- 0470 Dec, [facility], [place] [address] [facility] [id number] [address]- 4226 Dec, [facility], [place] [address] [facility] [id number] [address]- 7407 Dec, [facility], [place] [address] [facility] [id number] [address]- 0206 Dec, Allergic rhinitis due to pollen J30.1 [facility], [place] [address] [address]- 2809 Dec, [facility], [place] [id number] [address]- 1107 Dec, [facility], [place] [address] [address]- 5200 Dec, Allergic rhinitis due to pollen J30.1 [facility], [place] [id number] [address]- 7489 October, Allergic rhinitis due to pollen J30.1 [facility], [place] [id number] [address]- 6683 October, Allergic rhinitis due to pollen J30.1 [facility], [place] [address] [facility] [id number] [place] [address]- 3144 October, [facility], [place] [id number] [address]- 9261 October, [facility], [place] [id number] [address]- 4479 October, ADD (attention deficit disorder) F90.0 ; Major depressive disorder, recurrent episode, mild F33.0 and Uncomplicated severe persistent asthma J45.50 [place] [id number] [place] [address] 80483- 1664 Oct, Allergic rhinitis due to pollen J30.1 [place] [id number] [place] [address] 18151- 4448 14 Oct, 2015 ADD (attention deficit disorder) F90.0 [place] [address] 49978- 8955 06 Oct, 2015 Allergic rhinitis due to pollen 477.0 [place] [address] 44294- 8875 Aug, Allergic rhinitis due to pollen 477.0 [place] [address] 11633- 3540 Aug, 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 [place] [address] 47228- 5383 Aug, [place] [id number] [place] [address] 61733- 0705 Aug, Allergic rhinitis due to pollen 477.0 [place] [id number] [place] [address] 65653- 9909 Aug, Allergic rhinitis due to pollen 477.0 [place] [id number] [place] [address] 74261- 8673 Aug, Allergic rhinitis due to pollen 477.0 [place] [id number] [place] [address] 92351- 8857 Aug, Exposure to influenza Z20.828 [facility] [id number] [place] [address] [id number] Aug, Encounter for dental examination and cleaning without abnormal findings Z01.20 [facility], [place] [id number] [place] [address] 15400- 5218 18 Aug, 2015 Allergic rhinitis due to pollen J30.1 [place] [id number] [place] [address] 15511- 0267 Aug, [place] [id number] [place] [address] 34117- 2406 Aug, 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 [place] [id number] [place] [address] 67287- 7588 Jul, [place] [id number] [place] [address] 10127- 8824 Jul, Allergic rhinitis due to pollen 477.0 [place] [address] 57116- 0105 Jul, [place] [address] 24913- 7057 Jul, Allergic rhinitis due to pollen 477.0 [place] [address] 21506- 9672 Jun, ADD (attention deficit disorder) F90.0 ; Acquired hypothyroidism E03.9 ; PCOS (polycystic ovarian syndrome) E28.2 ; Polyarthralgia M25.50 and On stimulant medication Z79.899 [place] [id number] [place] [address] 32051- 6133 Apr, Encounter for immunization Z23 [place] [address] 96620- 8018 16 Mar, 2015 Allergic rhinitis due to pollen 477.0 [place] [id number] [place] [address] 84632- 2408 14 Mar, 2015 Influenza vaccine administered V04.81 [place] [address] 62593- 6234 03 Mar, 2015 [place] [id number] [place] [address] 22939- 5028 Jan, Allergic rhinitis due to pollen 477.0 [place] [id number] [facility] [id number] [address]- 3292 Jan, Allergic rhinitis due to pollen 477.0 [facility], [place] [address] [address]- 0149 Jan, Allergic rhinitis due to pollen 477.0 [facility] [address] [id number] Jan, Dental examination V72.2 [facility], [place] [id number] [place] [address] 11295- 7448 Dec, Allergic rhinitis due to pollen 477.0 [facility], [place] [address] [place] [address] 63536- 3876 October, [facility], [place] [address] [place] [address] 24020- 4427 Oct, [facility], [place] [id number] [place] [address] 43229- 1716 Oct, [facility], [place] [address] [address]- 7612 Aug, [facility], [place] [address] [address]- 2362 Aug, [facility], [place] [address] [address]- 1486 Aug, [facility], [place] [address] [address]- 8332 Aug, [facility], [place] [address] [address]- 4287 Aug, [facility], [place] [address] [address]- 5635 Aug, [facility], [place] [address] 3851 Aug, [facility], [place] [address] [address] Aug, [facility] [place] [facility] [address] [id number] [place] [address] Jul, [facility] [place] [facility] [address] [id number] [place] [address] Jul, [facility] [place] [facility] [address] [id number] [place] [address] Jul, [facility] [place] [facility] [address] [id number] [place] [address] Jul, [facility] [place] [facility] [address] [id number] [place] [address] Jul, [facility] [place] [facility] [address] [id number] [place] [address] Jul, [facility] [place] [facility] [address] [id number] [place] [address] Jul, [facility] [place] [facility] [address] [id number] [place] [address] Jul, [facility] [place] [facility] [address] [id number] [place] [address] Jul, [facility] [place] [facility] [address] [id number] [place] [address] Jul, [facility] [place] [facility] [address] [id number] [place] [address] Jul, [facility] [place] [facility] [address] [id number] [place] [address] Jun, [facility] [place] [facility] [address] [id number] [place] [address] Jun, [facility] [place] [facility] [address] [id number] [place] [address] Jun, [facility] [place] [facility] [address] [id number] [place] [address]- [address] Jun, [facility] [place] [facility] [address] [id number] [place] [address] Jun, [facility] [place] [facility] [address] [id number] [place] [address]- [address] Jun, [facility] [place] [facility] [address] [id number] [place] [address] May, [facility] [place] [facility] [address] [id number] [place] [address] May, [facility] [place] [facility] [address] [id number] [place] [address] May, [facility] [place] [facility] [address] [id number] [place] [address]- [address] May, [facility] [place] [facility] [address] [id number] [place] [address] May, [facility] [place] [facility] [address] [id number] [place] [address]- [address] May, [facility] [place] [facility] [address] [id number] [place] [address] Apr, [facility] [place] [facility] [address] [id number] [place] [address] Apr, [facility] [place] [facility] [address] [id number] [place] [address] 30 Mar, 2014 [facility] [place] [facility] [address] [id number] [place] [address]- [address] 30 Mar, 2013 [facility] [place] [facility] [address] [id number] [place] [address] 30 Mar, 2013 [facility] [place] [facility] [address] [id number] [place] [address] 30 Mar, 2013 [facility] [facility] [address] [id number] [place] [address] 19 Mar, 2014 [facility] [place] [facility] [address] [id number] [place] [address] Mar, [facility] [place] [facility] [address] [id number] [place] [address] Jan, [facility] [place] [facility] [address] [id number] [place] [address] Jan, [facility] [place] [facility] [address] [id number] [place] [address] Jan, [facility] [place] [facility] [address] [id number] [place] [address] 2728 Jan, [facility] [place] [facility] [address] [id number] [place] [address] 2727 Jan, [facility] [place] [facility] [address] [id number] [place] [address] 18[address] Jan, [facility] [place] [facility] [address] [id number] [place] [address] 1386 Dec, [facility] [place] [facility] [address] [id number] [place] [address]561 Dec, [facility] [place] [facility] [address] [id number] [place] [address]49 Dec, [facility] [place] [facility] [address] [id number] [place] [address]249 Dec, [facility] [place] [facility] [address] [id number] [place] [address] 5447 Dec, [facility] [place] [facility] [address] [id number] [place] [address]- 4987 Dec, [facility] [place] [facility] [address] [id number] [place] [address] 9203 Dec, [facility] [place] [facility] [address] [id number] [place] [address] Dec, [facility] [place] [facility] [address] [id number] [place] [address]- 5761 Dec, [facility] [place] [facility] [address] [id number] [place] [address]- 9349 Dec, [facility] [place] [facility] [address] [id number] [place] [address]- 7883 Dec, [facility] [place] [facility] [address] [id number] [place] [address] 3830 Dec, [facility] [facility] [address] [id number] [place] [address]- 3898 Dec, [facility] [place] [facility] [address] [id number] [place] [address] 2162 Dec, [facility] [address] [id number] [place] [address]- 0639 Dec, [facility] [address] [id number] [place] [address]- 0293 Dec, [facility] [facility] [address] [id number] [place] [address]- 8984 October, [facility] [address] [id number] [place] [address]- 0280 October, [facility] [address] [id number] [place] [address]- 4544 October, [facility] [facility] [address] [id number] [place] [address]- 4461 October, [facility] [address] [id number] [place] [address]- 3361 October, [facility] [address] [id number] [place] [address]- 5174 October, [facility] [address] [id number] [place] [address]- 6012 Oct, [facility] [address] [id number] [place] [address]- 1458 Oct, [facility] [address] [id number] [place] [address] 1686 Oct, [facility] [address] [id number] [place] [address]- [address] 17 Oct, 2013 [facility] [address] [id number] [place] [address] 9793 Oct, [facility] [address] [id number] [place] [address]- 6032 Oct, [facility] [address] [id number] [place] [address] 2005 Aug, [facility] [address] [id number] [place] [address] 3278 Aug, [facility] [address] [id number] [place] [address]- 3934 Aug, [facility] [address] [id number] [place] [address] 3516 Aug, [facility] [address] [id number] [place] [address]- 6976 Jul, [facility] [address] [id number] [place] [address] 7210 Jul, [facility] [address] [id number] [place] [address]- 9745 Jul, [facility] [address] [id number] [place] [address]- 5128 Jul, [facility] [address] [id number] [place] [address]- 7875 Jun, [facility] [address] [id number] [place] [address]- 2935 Jun, [facility] [address] [id number] [place] [address]- 8537 Jun, [facility] [address] [id number] [place] [address]- 8112 Jun, [facility] [address] [id number] [place] [address] 3416 Jun, [facility] [address] [id number] [place] [address] Jun, [facility] [address] [id number] [place] [address]- 5132 Jun, [facility] [address] [facility] [id number] [place] [address]- 7164 Jun, [facility] [address] [id number] [place] [address] Jun, [facility] [address] [id number] [place] [address]- 7184 Jun, [facility] [address] [id number] [place] [address]- 5199 Jun, [facility] [address] [id number] [place] [address] 276[address] May, [facility] [address] [id number] [place] [address] 8677 May, [facility] [address] [id number] [place] [address] 0141 May, [facility] [address] [id number] [place] [address] 9421 May, [facility] [address] [id number] [place] [address] 6131 May, [facility] [address] [id number] [place] [address] 86[address] May, [facility] [address] [id number] [place] [address] 8929 May, [facility] [address] [facility] [id number] [place] [address]- 9511 Apr, [facility] [address] [id number] [place] [address]- 6[address] Apr, [facility] [address] [id number] [place] [address]- 7778 18 Apr, 2013 [facility] [address] [id number] [place] [address]- 4998 Apr, [facility] [address] [id number] [place] [address] 2546 27 Mar, 2013 [facility] [address] [id number] [place] [address]- 8716 Mar, 2012 [facility] [address] [id number] [place] [address] 2549 Mar, [facility] [address] [id number] [place] [address]- 4728 Mar, [facility] [address] [id number] [place] [address]- 4918 Mar, [facility] [address] [id number] [place] [address]- 9389 Mar, [facility] [address] [id number] [place] [address]- 9401 Jan, [facility] [address] [id number] [place] [address]- 7004 Jan, [facility] [address] [id number] [place] [address]- 4410 Jan, [facility] [address] [id number] [place] [address] 2544 Jan, [facility] [address] [id number] [place] [address]- 2540 Jan, [facility] [address] [id number] [place] [address]- 0905 Dec, [facility] [address] [id number] [place] [address] 2547 Dec, [facility] [address] [id number] [place] [address]- 6210 Dec, [facility] [address] [id number] [place] [address]- 8951 Dec, [facility] [address] [id number] [place] [address]- 7777 Dec, [facility] [address] [id number] [place] [address]- 0846 Dec, [facility] [address] [id number] [place] [address]- 0394 Dec, [facility] [address] [id number] [place] [address]- 8976 Dec, [facility] [address] [id number] [place] [address]- 9717 October, [facility] [address] [id number] [place] [address]- 8730 October, [facility] [address] [id number] [place] [address]- 8238 October, [facility] [address] [id number] [place] [address]- 7807 Oct, [facility] [address] [id number] [place] [address]- 5333 Oct, [facility] [address] [id number] [place] [address]- 8940 Oct, [facility] [address] [id number] [place] [address]- 4041 Oct, [facility] [address] [id number] [place] [address]- 7543 Aug, [facility] [address] [id number] [place] [address]- 8696 Aug, [facility] [address] [id number] [place] [address]- 6323 05 Aug, 2012 [facility] [address] [id number] [place] [address]- 8754 Jul, [facility] [address] [id number] [place] [address]- 9892 May, [facility] [address] [id number] [place] [address]- 8496 May, [facility] [address] [facility] [id number] [place] [address]- 6494 Apr, [facility] [address] [id number] [place] [address]- 0155 Apr, [facility] [address] [id number] [place] [address]- 0567 Apr, [facility] [address] [id number] [place] [address]- 3193 Apr, [facility] [address] [facility] [id number] [place] [address]- 2369 Apr, [facility] [address] [id number] [place] [address]- 0089 Apr, [facility] [address] [facility] [id number] [place] [address]- 5333 Apr, [facility] [address] [facility] [id number] [place] [address]- 3546 Apr, [facility] [address] [facility] [id number] [place] [address]- 9626 Apr, [facility] [address] [facility] [id number] [place] [address]- 6419 Apr, [facility] [address] [id number] [place] [address]- 7350 14 Apr, 2012 [facility] [address] [facility] [id number] [place] [address]- 4101 Apr, [facility] [address] [facility] [id number] [place] [address]- 9404 17 Mar, 2012 [facility] [address] [id number] [place] [address]- 6964 Jan, [facility] [address] [id number] [place] [address]- 1062 Dec, [facility] [address] [id number] [place] [address]- 0995 October, [facility] [address] [id number] [place] [address]- 1772 Oct, [facility] [address] [id number] [place] [address]- 0825 Oct, [facility] [address] [id number] [place] [address]- 6696 Oct, [facility] [address] [id number] [place] [address]- 8085 Aug, [facility] [address] [id number] [place] [address]- 0931 Aug, [facility] [address] [id number] [place] [address]- 4430 Aug, [facility] [address] [id number] [place] [address]- 5449 Aug, [facility] [address] [id number] [place] [address]- 9055 Aug, [facility] [place] [address] [id number] [place] [address]- 9685 Aug, [facility] [facility] [address] [id number] [place] [address] Jun, [facility] [address] [id number] [place] [address]- 0306 Apr, [facility] [address] [id number] [place] [address]- 6956 Jun, [facility] [address] [id number] [place] [address]- 8076 Jun, [facility] [place] [address] [facility] [id number] [place] [address]- 2546 May, [facility] [place] [address] [facility] [id number] [place] [address]- 2546 May, [facility] [place] [address] [facility] [id number] [place] [address]- 2546 Apr, [facility] [place] [address] [facility] [id number] [place] [address]- 2546 Apr, IMMUNIZATIONS No Known Immunizations SOCIAL HISTORY Never Assessed REASON FOR VISIT Allergy injection(s) PLAN OF CARE VITAL SIGNS MEDICATIONS Unknown Medications RESULTS No Results PROCEDURES Procedure Date Ordered Result Body Site IMMUNOTHERAPY, 2 OR MORE INJECTIONS 2017-06-15 N/A IMMUNOTHERAPY INJECTIONS Jun 15, 2017 INSTRUCTIONS MEDICATIONS ADMINISTERED No Known Medications [...] History see above surgeries Hospitalization History Anaphylactic shock-[facility] 08/23/16
--- OUTSIDE RECORDS SUMMARY | 2018-07-18 08:02 | XMS REPORT ---
Author Author BRANDY SAGAR [facility] Address [address] [place] [address] Care Team Providers Care Auto Locator Name Role Phone BRANDYTEZ HOYTHANY Unavailable PROBLEMS Type Condition ICD9-CM Code [id number] Code Onset Dates Condition Status SNOMED Code Problem ADD (attention deficit disorder) F90.0 Active 833043244 Problem Major depressive disorder, recurrent episode, mild F33.0 Active 380248586 Problem Allergic rhinitis due to pollen J30.1 Active 86955820 Problem Current chronic use of inhaled steroid Z79.51 Active 482964986 Problem Asthma exacerbation J45.901 Active 554523222 Problem Pure hypercholesterolemia E78.00 Active 792233572 Problem PCOS (polycystic ovarian syndrome) E28.2 Active 60870353 Problem Multiple food allergies Z91.018 Active 133365702 Problem Dental examination Z01.20 Active 559566362 Problem Uncomplicated severe persistent asthma J45.50 Active 331766236 Problem Gastroesophageal reflux disease without esophagitis K21.9 Active 898854452 Problem Migraine with aura and without status migrainosus, not intractable G43.109 Active 7597530 Problem Vitamin D deficiency E55.9 Active 23308614 Problem Acquired hypothyroidism E03.9 Active 168084883 ALLERGIES Substance Reaction Event Type Date Status Zithromax Unknown Drug Allergy Aug, Active Ceftin Unknown Drug Allergy Aug, Active Morphine Patient is a fast metabolizer and medication is not effective Drug Allergy Aug, Active FLUORIDE VARNISH Unknown Non Drug Allergy Aug, Active [place] Unknown Non Drug Allergy Aug, Active Soybeans Unknown Non Drug Allergy Aug, Active Wheat Unknown Non Drug Allergy Aug, Active Malt Extract Unknown Non Drug Allergy Aug, Active Asprin Unknown Non Drug Allergy Aug, Active SOCIAL HISTORY Never Assessed PLAN OF CARE Activity Details Follow Up prn Reason: VITAL SIGNS Height 68 in 2016-09-22 Temperature 98.7 degrees Fahrenheit 2016-09-22 Heart Rate 96 bpm 2016-09-22 Respiratory Rate 20 2016-09-22 Blood pressure systolic 120 mmHg 2016-09-22 Blood pressure diastolic 82 mmHg 2016-09-22 MEDICATIONS Medication Instructions Dosage Frequency Start Date End Date Duration Status Levofloxacin 500 mg Orally Once a day 1 tablet, can d/c after 7 days if improved 24h Aug, Oct, 14 days Active Lutera 0.1-20 MG-MCG Orally Once a day 1 tablet 24h Active Ibuprofen 800 MG Orally every 8 hours 1 tablet 8h 30 days Active Nasonex 50 mcg/actuation Nasally 2 times a day 1 spray in each nare 12h Jan, 90 days Active MetFORMIN HCl ER 1000 mg Orally Once a day 1 tablet with evening meal 24h Active Ondansetron 8 MG DISSOLVE ONE TABLET UNDER TONGUE EVERY 6 HOURS NEEDED FOR NAUSEA OR VOMITING 20 Active EpiPen 2-Leo 0.3 MG/0.3ML Injection PRN Active Magnesium Oxide 250 MG Orally Once a day 2 tablets 24h Active Xyzal 5 mg 1 tablet by Oral route 2 times per day Mar, Active Zoloft 50 MG Orally Once a day 1 tablet 24h Active Symbicort 160-4.5 MCG/ACT Inhalation Twice a day 2 puffs 12h Active Levothyroxine Sodium 100 MCG Orally Once a day 1 tablet 24h 90 days Active ProAir RespiClick 108 (90 Base) MCG/ACT Inhalation every 4 hrs 1 puff as needed 4h 30 Dec, 2015 Active pantoprazole 40 mg by oral route Once a day 1 tablet 24h 05 Aug, 2012 Active Singulair 10 mg take 1 tablet by Oral route 1 time per day Apr, Active Concerta 54 MG Orally Once a day 1 tablet in the morning 24h Jul, Active PredniSONE 50 mg Orally daily One 24h Aug, Aug, 5 days Active Vitamin D 2000 UNIT Orally Once a day 1 tablet 24h Active RESULTS Name Result Date Reference Range Xray : Chest (IN HOUSE) 2016-09-22 PROCEDURES Procedure Date Ordered Result Body Site CHEST X-RAY September 22, 2016 IMMUNIZATIONS No Known Immunizations MEDICAL (GENERAL) [...]
--- OUTSIDE RECORDS SUMMARY | 2018-07-18 08:03 | XMS REPORT ---
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
--- OUTSIDE RECORDS SUMMARY | 2018-07-18 08:04 | XMS REPORT ---
Author Author SAGAR NAVA Organization [facility] Address [address] [place] [address] Care Team Providers Care Drapery Inspector Name Role Phone SAGAR NAVA Unavailable PROBLEMS Type Condition ICD9-CM Code [id number] Code Onset Dates Condition Status SNOMED Code Problem Uncomplicated severe persistent asthma J45.50 Active 316695754 Problem PCOS (polycystic ovarian syndrome) E28.2 Active 26548173 Problem Migraine with aura and without status migrainosus, not intractable G43.109 Active 9784201 Assessment Multiple allergies Z88.9 Mar, Active 365527234 Problem Vitamin D deficiency E55.9 Active 70361931 Problem Major depressive disorder, recurrent episode, mild F33.0 Active 176042492 Problem Asthma exacerbation J45.901 Active 588275332 Problem Encounter for dental examination Z01.20 Active 418375523 Problem Acquired hypothyroidism E03.9 Active 841667646 Problem Gastroesophageal reflux disease without esophagitis K21.9 Active 118686608 Problem Allergic rhinitis due to pollen J30.1 Active 38551126 Problem ADD (attention deficit disorder) F90.0 Active 634533465 ALLERGIES Unknown Allergies SOCIAL HISTORY No smoking Hx information available PLAN OF CARE Activity Details Future/Pending Procedure IMMUNOTHERAPY, 2 OR MORE INJECTIONS ,Reason: VITAL SIGNS MEDICATIONS Unknown Medications RESULTS No Results PROCEDURES Procedure Date Ordered Related Diagnosis Body Site IMMUNOTHERAPY INJECTIONS Mar 24, 2016 IMMUNIZATIONS No Known Immunizations
--- OUTSIDE RECORDS SUMMARY | 2018-07-18 08:04 | XMS REPORT ---
Author Author BRANDY SAGAR Organization [facility] Address [address] [place] [address] Care Team Providers Care Manager Play Name Role Phone SAGAR NAVA Unavailable PROBLEMS Type Condition ICD9-CM Code TNT79-[id number] Code Onset Dates Condition Status SNOMED Code Problem ADD (attention deficit disorder) F90.0 Active 156148217 Problem Major depressive disorder, recurrent episode, mild F33.0 Active 251071694 Problem Allergic rhinitis due to pollen J30.1 Active 05251387 Problem Current chronic use of inhaled steroid Z79.51 Active 476793371 Problem Asthma exacerbation J45.901 Active 739713458 Problem Pure hypercholesterolemia E78.00 Active 784797319 Problem PCOS (polycystic ovarian syndrome) E28.2 Active 03765042 Problem Multiple food allergies Z91.018 Active 270205193 Problem Dental examination Z01.20 Active 018040582 Problem Uncomplicated severe persistent asthma J45.50 Active 995777150 Problem Gastroesophageal reflux disease without esophagitis K21.9 Active 519578070 Problem Migraine with aura and without status migrainosus, not intractable G43.109 Active 1279845 Problem Vitamin D deficiency E55.9 Active 91567396 Problem Acquired hypothyroidism E03.9 Active 552750765 ALLERGIES No Information SOCIAL HISTORY Never Assessed PLAN OF CARE VITAL SIGNS MEDICATIONS Unknown Medications RESULTS No Results PROCEDURES Procedure Date Ordered Result Body Site IMMUNOTHERAPY, 2 OR MORE INJECTIONS 2016-08-11 N/A IMMUNOTHERAPY INJECTIONS Aug 11, 2016 IMMUNIZATIONS No Known Immunizations MEDICAL (GENERAL) [...] above surgeries Hospitalization History Anaphylactic shock-[facility] 08/23/16
--- OUTSIDE RECORDS SUMMARY | 2018-07-18 08:04 | XMS REPORT ---
Author Author SAGAR NAVA Organization [facility] Address [address] [place] [address] Care Team Providers Care Electronic Musical Instrument Repairer Name Role Phone BRANDYTEZ HOYTHANY Unavailable PROBLEMS Type Condition ICD9-CM Code [id number] Code Onset Dates Condition Status SNOMED Code Problem ADD (attention deficit disorder) F90.0 Active 430341202 Problem Major depressive disorder, recurrent episode, mild F33.0 Active 852144267 Problem Allergic rhinitis due to pollen J30.1 Active 27254662 Problem Current chronic use of inhaled steroid Z79.51 Active 809531427 Problem Asthma exacerbation J45.901 Active 402013885 Problem Pure hypercholesterolemia E78.00 Active 953558116 Problem PCOS (polycystic ovarian syndrome) E28.2 Active 29935090 Problem Multiple food allergies Z91.018 Active 088900162 Problem Dental examination Z01.20 Active 759275531 Problem Uncomplicated severe persistent asthma J45.50 Active 272417814 Problem Gastroesophageal reflux disease without esophagitis K21.9 Active 538809805 Problem Migraine with aura and without status migrainosus, not intractable G43.109 Active 0526378 Problem Vitamin D deficiency E55.9 Active 46058479 Problem Acquired hypothyroidism E03.9 Active 341366779 ALLERGIES Unknown Allergies SOCIAL HISTORY No smoking Hx information available PLAN OF CARE VITAL SIGNS MEDICATIONS Unknown Medications RESULTS No Results PROCEDURES Procedure Date Ordered Related Diagnosis Body Site IMMUNOTHERAPY, 2 OR MORE INJECTIONS 2016-07-21 N/A IMMUNOTHERAPY INJECTIONS Jul 21, 2016 IMMUNIZATIONS No Known Immunizations
--- OUTSIDE RECORDS SUMMARY | 2018-07-18 08:04 | XMS REPORT ---
Author Author SAGAR NAVA eClinicalWorks Address Unknown Phone Unavailable Care Team Providers Care Carding Machine Operator Name Role Phone SAGAR NAVA Unavailable [...] Instructions Start Date End Date Status Dosage Concerta [facility] [id number] 54 MG Orally Once a day Jul 22, 2015 1 tablet in the morning Results No Known Results Summary Purpose eClinicalWorks Submission
--- OUTSIDE RECORDS SUMMARY | 2018-07-18 08:06 | XMS REPORT ---
Author BALJEET Nolasco [facility] eClinicalWorks Address Unknown Phone Unavailable Care Team Providers Care Director Internal Communications Name Role Phone BALJEET WILKINS CP Unavailable [...] Coding System Code Date IMMUNOTHERAPY INJECTIONS CPT-4 55456 Jul 09, 2015 Results No Known Results Summary Purpose eClinicalWorks Submission
--- OUTSIDE RECORDS SUMMARY | 2018-07-18 08:07 | XMS REPORT ---
Author Author BRANDY SAGAR [facility] Address [address] [place] [address] Care Team Providers Care Commercial Real Estate Attorney Name Role Phone TEZ NAVAHANY Unavailable PROBLEMS Type Condition ICD9-CM Code [id number] Code Onset Dates Condition Status SNOMED Code Problem Migraine with aura and without status migrainosus, not intractable G43.109 Active 3676547 Problem PCOS (polycystic ovarian syndrome) E28.2 Active 91240868 Problem Uncomplicated severe persistent asthma J45.50 Active 436831444 Problem Severe persistent asthma with exacerbation J45.51 Active 976459639 Problem Other elevated white blood cell (WBC) count D72.828 Active 717507378 Problem Multiple food allergies Z91.018 Active 929804422 Problem Pure hypercholesterolemia E78.00 Active 911312459 Problem Current chronic use of inhaled steroid Z79.51 Active 361889645 Problem Asthma exacerbation J45.901 Active 395649681 Problem ADD (attention deficit disorder) F90.0 Active 199916007 Problem Allergic rhinitis due to pollen J30.1 Active 15152370 Problem Vitamin D deficiency E55.9 Active 82544882 Problem Major depressive disorder, recurrent episode, mild F33.0 Active 611679160 Problem Acquired hypothyroidism E03.9 Active 157279550 Problem Gastroesophageal reflux disease without esophagitis K21.9 Active 157797113 ALLERGIES No Information ENCOUNTERS Encounter Location Date Diagnosis [facility] [id number] [address] Dec, [facility] [id number] [place] [address] 09707- 2316 October, Allergic rhinitis due to pollen J30.1 [facility] [address], [place] [address] Oct, [facility] [id number] [place] [address] 70075- 3593 Oct, Allergic rhinitis due to pollen J30.1 [place] [address] 31234- 1019 Oct, [place] [address] 35972- 6101 Oct, Allergic rhinitis due to pollen J30.1 [place] [address] 57039- 3664 Oct, Severe persistent asthma with exacerbation J45.51 and Pneumonia due to Haemophilus influenzae, unspecified laterality, unspecified part of lung J14 [place] [address] 17256- 9106 Oct, ADD (attention deficit disorder) F90.0 [place] [address] 18498- 4901 Aug, Haemophilus influenzae infection A49.2 [place] [address] 57073- 9079 Aug, Cough productive of purulent sputum R05 [place] [address] 45935- 8108 Aug, [place] [address] 40122- 5042 Aug, Pulmonary congestion R09.89 [place] [address] 71258- 1704 Aug, Severe persistent asthma with exacerbation J45.51 ; Hiatal hernia K44.9 and Gastroesophageal reflux disease without esophagitis K21.9 [place] [address] 19069- 3344 Aug, Other elevated white blood cell (WBC) count D72.828 [place] [address] 19901- 4292 Aug, Uncomplicated severe persistent asthma J45.50 [place] [address] 93913- 8283 Aug, Pure hypercholesterolemia E78.00 ; Uncomplicated severe persistent asthma J45.50 and Acquired hypothyroidism E03.9 [place] [address] 22908- 0808 Aug, Acquired hypothyroidism E03.9 ; Pure hypercholesterolemia E78.00 and Uncomplicated severe persistent asthma J45.50 [place] [address] 96517- 9179 Aug, Allergic rhinitis due to pollen J30.1 [place] [address] 362978- 3899 Aug, Allergic rhinitis due to pollen J30.1 [place] [address] 14400- 2240 Aug, [place] [id number] Jul, Pharyngitis, unspecified etiology J02.9 and Lymphadenopathy R59.1 [place] [address] 48869- 8258 Jul, ADD (attention deficit disorder) F90.0 [place] [address] 96879- 7255 Jul, Allergic rhinitis due to pollen J30.1 [place] [address] 17755- 5197 Jul, Dental examination Z01.20 [place] [address] 42325- 9016 Jun, Cough productive of purulent sputum R05 [place] [address] 79677- 9733 Jun, Allergic rhinitis due to pollen J30.1 [place] [address] 70051- 3656 Jun, [place] [address] [place] [address] 48210- 8772 Jun, Allergic rhinitis due to pollen J30.1 [place] [id number] [place] [address] 20330- 1203 Jun, Allergic rhinitis due to pollen J30.1 [place] [id number] [place] [address] 43250- 2002 May, Allergic rhinitis due to pollen J30.1 [place] [id number] [place] [address] 87225- 5730 May, Pneumonia due to Haemophilus influenzae, unspecified laterality, unspecified part of lung J14 [place] [id number] [place] [address] 12103- 3452 May, Allergic rhinitis due to pollen J30.1 [place] [id number] [place] [address] 76623- 5864 May, Other adverse food reactions, not elsewhere classified, initial encounter T78.1XXA and Pneumonia due to Haemophilus influenzae, unspecified laterality, unspecified part of lung J14 [place] [id number] [place] [address] 59780- 1797 May, Pneumonia due to Haemophilus influenzae, unspecified laterality, unspecified part of lung J14 [place] [id number] [place] [address] 23972- 5152 May, Multiple food allergies Z91.018 ; Uncomplicated severe persistent asthma J45.50 ; Cough productive of purulent sputum R05 and Uses central nervous system stimulants F15.90 [place] [id number] [place] [address] 35306- 0424 Apr, Allergic rhinitis due to pollen J30.1 [place] [id number] [place] [address] 92374- 8505 Apr, Allergic rhinitis due to pollen J30.1 [place] [address] [place] [address]- 4383 Apr, Allergic rhinitis due to pollen J30.1 [place] [address] 11560- 9531 Apr, ADD (attention deficit disorder) F90.0 [place] [id number] [place] [address] 60755- 4220 28 Mar, 2017 Allergic rhinitis due to pollen J30.1 [place] [address] 33937- 1912 21 Mar, 2017 Encounter for immunization Z23 [place] [address] 61169- 0474 19 Mar, 2017 [place] [address] 81893- 7361 14 Mar, 2017 Allergic rhinitis due to pollen J30.1 [place] [address] 90885- 6040 07 Mar, 2017 Allergic rhinitis due to pollen J30.1 [place] [id number] [place] [address] 23820- 6968 Jan, Allergic rhinitis due to pollen J30.1 [place] [id number] [place] [address] 97680- 5813 Jan, Allergic rhinitis due to pollen J30.1 [place] [id number] [place] [address] 16225- 3681 Dec, Uncomplicated severe persistent asthma J45.50 [place] [id number] [place] [address] 63183- 7120 Dec, Allergic rhinitis due to pollen J30.1 [place] [id number] [place] [address] 71863- 6635 Dec, Allergic rhinitis due to pollen J30.1 [place] [id number] [place] [address] 09624- 6683 Dec, Allergic rhinitis due to pollen J30.1 [place] [address] [place] [address] 91241- 1055 Dec, ADD (attention deficit disorder) F90.0 [place] [id number] [place] [address] 14722- 7037 Dec, Allergic rhinitis due to pollen J30.1 [place] [id number] [place] [address] 93104- 2436 Dec, Visit for TB skin test Z11.1 and Screening for tuberculosis Z11.1 [place] [id number] [place] [address] 03278- 2509 Dec, Uncomplicated severe persistent asthma J45.50 ; Palpitations R00.2 ; Pericardial effusion (noninflammatory) I31.3 and Chest discomfort R07.89 [place] [id number] [place] [address] 06947- 2042 Dec, Allergic rhinitis due to pollen J30.1 [place] [id number] [place] [address] 13963- 8733 Dec, Chronic cough R05 [place] [id number] [place] [address] 17954- 7509 Dec, [place] [id number] [place] [address] 43034- 0610 Dec, Allergic rhinitis due to pollen J30.1 [place] [id number] [place] [address] 41942- 4653 Dec, Allergic rhinitis due to pollen J30.1 [place] [id number] [place] [address] 69291- 9624 Dec, Chronic cough R05 [place] [id number] [place] [address] 49995- 4714 October, Allergic rhinitis due to pollen J30.1 [place] [id number] [place] [address] 51625- 5915 October, Allergic rhinitis due to pollen J30.1 [place] [id number] [place] [address] 72477- 0142 October, [place] [id number] [place] [address] 65836- 9341 October, Asthma exacerbation J45.901 [place] [id number] [place] [address] 44577- 8760 October, Asthma exacerbation J45.901 and Current chronic use of inhaled steroid Z79.51 [place] [id number] [place] [address] 13103- 6184 October, Uncomplicated severe persistent asthma J45.50 [place] [id number] [place] [address] 33120- 9376 October, Allergic rhinitis due to pollen J30.1 [place] [id number] [place] [address] 98301- 4505 Oct, [place] [id number] [place] [address] 07817- 9524 Oct, Asthma exacerbation J45.901 and Sputum production R05 [place] [id number] [place] [address] 17907- 3864 Oct, Asthma exacerbation J45.901 [place] [id number] [place] [address] 50739- 5223 Oct, ADD (attention deficit disorder) F90.0 [place] [id number] [place] [address] 07715- 8575 Oct, ADD (attention deficit disorder) F90.0 [place] [id number] [place] [address] 52324- 4615 Aug, Allergic rhinitis due to pollen J30.1 [place] [id number] [place] [address] 21001- 8748 Aug, Atypical pneumonia J18.9 [place] [id number] [place] [address] 34198- 8850 Aug, Allergic rhinitis due to pollen J30.1 [facility] [address] 04111- 8636 Aug, Acquired hypothyroidism E03.9 [place] [address] 73212- 0391 Aug, Multiple food allergies Z91.018 ; Elevated blood pressure reading R03.0 and Anaphylaxis, subsequent encounter T78.2XXD [place] [address] [id number] Aug, [place] [address] 10703- 5518 Aug, Anaphylaxis, initial encounter T78.2XXA [place] [address] 20023- 0658 Aug, Allergic rhinitis due to pollen J30.1 [place] [address] 12458- 2168 Aug, Dental examination Z01.20 [place] [address] 58421- 3794 Aug, Allergic rhinitis due to pollen J30.1 [place] [address] 26020- 8902 Aug, Acquired hypothyroidism E03.9 and Pure hypercholesterolemia E78.00 [place] [address] 05642- 7285 Aug, ADD (attention deficit disorder) F90.0 ; Acquired hypothyroidism E03.9 and Pure hypercholesterolemia E78.00 [place] [address] 00593- 8758 Aug, Asthma exacerbation J45.901 [place] [address] 21598- 8669 Jul, Allergic rhinitis due to pollen J30.1 [facility] [address], [place] [address]- 3066 Jul, Allergic rhinitis due to pollen J30.1 [facility] [address], [place] [address]- 8058 Jul, [facility] [id number] [place] [address] 84790- 6942 Jul, Allergic rhinitis due to pollen J30.1 [facility] [address] [place] [address] 97912- 5808 Jul, Other assisted (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 and ADD ( attention deficit disorder) F90.0 [place] [id number] [place] [address] 41898- 2691 Jul, 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 and ADD ( attention deficit disorder) F90.0 [facility] [address], [place] [address]- 6746 Jul, [facility] [id number] [place] [address] 88165- 7605 Jun, Allergic rhinitis due to pollen J30.1 [facility] [address], [place] [address]- 8850 Jun, Allergic rhinitis due to pollen J30.1 [facility] [address], [place] [address]- 0460 Jun, [facility] [address] [place] [address] 52418- 9271 May, Allergic rhinitis due to pollen J30.1 [facility] [address], [place] [address]- 2573 May, Allergic rhinitis due to pollen J30.1 [facility] [address], [place] [address]- 5891 Apr, Allergic rhinitis due to pollen J30.1 [place] [id number] [place] [address] 11629- 4083 Apr, Allergic rhinitis due to pollen J30.1 [place] [id number] [place] [address] 52104- 4935 Apr, Encounter for immunization Z23 [place] [address] 02574- 1331 Apr, [place] [id number] [place] [address] 76945- 2256 Mar, Allergic rhinitis due to pollen J30.1 [place] [address] 09407- 6379 Mar, Multiple allergies Z88.9 [place] [address] 88874- 2645 Mar, Candidal vaginitis B37.3 [place] [address] 24237- 6150 Mar, Allergic rhinitis due to pollen J30.1 [place] [address] 80402- 8596 Jan, Asthma exacerbation J45.901 ; Fatigue, unspecified type R53.83 and Community acquired pneumonia J18.9 [facility] [id number] [place] [address] [id number] Jan, Encounter for dental examination Z01.20 [place] [id number] [place] [address] 82154- 4411 Jan, Allergic rhinitis due to pollen J30.1 [place] [address] 03690- 1535 Dec, Allergic rhinitis due to pollen J30.1 [place] [id number] [place] [address] 65666- 5232 Dec, [place] [address] [place] [address]- 9325 Dec, Allergic rhinitis due to pollen J30.1 [facility] [address] [place] [address] 73309- 9507 Dec, [facility] [address] [place] [address] 54919- 3898 Dec, [facility] [id number] [place] [address] 11348- 5604 Dec, [facility] [id number] [place] [address] 18485- 9295 Dec, Allergic rhinitis due to pollen J30.1 [facility] [id number] [place] [address] 03896- 6889 Dec, [facility] [id number] [place] [address] 93811- 4735 Dec, [facility] [id number] [place] [address] 83525- 7600 Dec, Allergic rhinitis due to pollen J30.1 [facility] [address] [place] [address] 04115- 2517 October, Allergic rhinitis due to pollen J30.1 [facility] [address] [place] [address] 21892- 9788 October, Allergic rhinitis due to pollen J30.1 [facility] [address], [place] [address]- 5986 October, [facility] [address] [place] [address] 12065- 2452 October, [facility] [id number] [place] [address] 94019- 4559 October, ADD (attention deficit disorder) F90.0 ; Major depressive disorder, recurrent episode, mild F33.0 and Uncomplicated severe persistent asthma J45.50 [facility] [id number] [place] [address] 14622- 6118 Oct, Allergic rhinitis due to pollen J30.1 [facility] [id number] [place] [address] 37405- 5012 Oct, ADD (attention deficit disorder) F90.0 [facility] [id number] [place] [address] 51246- 3581 Oct, Allergic rhinitis due to pollen 477.0 [facility] [id number] [place] [address] 50662- 3507 Aug, Allergic rhinitis due to pollen 477.0 [place] [id number] [place] [address] 93545- 9754 Aug, 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 [place] [id number] [place] [address] 94863- 3165 Aug, [facility] [id number] [place] [address] 56363- 8663 Aug, Allergic rhinitis due to pollen 477.0 [facility] [id number] [place] [address] 96921- 3011 Aug, Allergic rhinitis due to pollen 477.0 [facility] [id number] [place] [address] 46885- 6641 Aug, Allergic rhinitis due to pollen 477.0 [facility] [id number] [place] [address] 76492- 6985 Aug, Exposure to influenza Z20.828 [facility] [id number] [place] [address] [id number] Aug, Encounter for dental examination and cleaning without abnormal findings Z01.20 [facility] [id number] [place] [address] 82232- 8729 Aug, Allergic rhinitis due to pollen J30.1 [facility] [id number] [place] [address] 41909- 7108 Aug, [place] [address] [place] [address] 94896- 4194 Aug, 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 [place] [id number] [place] [address] 42547- 5183 Jul, [place] [id number] [place] [address] 42014- 7369 Jul, Allergic rhinitis due to pollen 477.0 [place] [id number] [place] [address] 88081- 9407 Jul, [place] [address] 64265- 0215 Jul, Allergic rhinitis due to pollen 477.0 [place] [address] 39798- 1103 Jun, ADD (attention deficit disorder) F90.0 ; Acquired hypothyroidism E03.9 ; PCOS (polycystic ovarian syndrome) E28.2 ; Polyarthralgia M25.50 and On stimulant medication Z79.899 [place] [address] 19850- 7667 Apr, Encounter for immunization Z23 [place] [address] 83730- 2814 16 Mar, 2015 Allergic rhinitis due to pollen 477.0 [place] [id number] [place] [address] 34340- 8363 14 Mar, 2015 Influenza vaccine administered V04.81 [place] [id number] [place] [address] 47064- 0122 Mar, [place] [address] 79601- 2864 Jan, Allergic rhinitis due to pollen 477.0 [place] [id number] [place] [address] 48580- 8409 Jan, Allergic rhinitis due to pollen 477.0 [place] [address] [facility] [id number] [address]- 2611 Jan, Allergic rhinitis due to pollen 477.0 [facility] [address] [id number] Jan, Dental examination V72.2 [facility] [address] [place] [address]- 8419 Dec, Allergic rhinitis due to pollen 477.0 [facility] [address] [place] [address]- 8447 October, [facility] [id number] [place] [address]- 4688 Oct, [facility] [address], [place] [address]- 9259 Oct, [facility] [address], [place] [address]- 9878 Aug, [facility] [address], [place] [address]- 2770 Aug, [facility] [address] [place] [address]- 6594 Aug, [facility] [address], [place] [address]- 2249 Aug, [facility] [address]- 4418 Aug, [facility] [address] 7529 Aug, [facility] [address] [place] [address]- 8118 Aug, [facility] [address] 4024 Aug, [facility] [address] 6354 Jul, [facility] [place] [facility] [address] [id number] [place] [address]- 2827 Jul, [facility] [place] [facility] [address] [id number] [place] [address]- 1974 Jul, [facility] [place] [facility] [address] [id number] [place] [address]- 2703 Jul, [facility] [place] [facility] [address] [id number] [place] [address]- 5268 Jul, [facility] [place] [facility] [address] [id number] [place] [address]- 2046 Jul, [facility] [place] [facility] [address] [id number] [place] [address] Jul, [facility] [place] [facility] [address] [id number] [place] [address] Jul, [facility] [place] [facility] [address] [id number] [place] [address] Jul, [facility] [place] [facility] [address] [id number] [place] [address] Jul, [facility] [place] [facility] [address] [id number], [place] [address] Jul, [facility] [place] [facility] [address] [id number], [place] [address] Jun, [facility] [place] [facility] [address] [id number], [place] [address] Jun, [facility] [place] [facility] [address] [id number] [place] [address] Jun, [facility] [place] [facility] [address] [id number] [place] [address] Jun, [facility] [place] [facility] [address] [id number], [place] [address] Jun, [facility] [place] [facility] [address] [id number], [place] [address] Jun, [facility] [place] [facility] [address] [id number] [place] [address] May, [facility] [place] [facility] [address] [id number], [place] [address] May, [facility] [place] [facility] [address] [facility] [id number] [place] [address] May, [facility] [place] [facility] [address] [id number] [place] [address] May, [facility] [place] [facility] [address] [facility] [id number] [place] [address], [place] [address] May, [facility] [place] [facility] [address] [id number] [place] [address] May, [facility] [place] [facility] [address] [id number], [place] [address] Apr, [facility] [place] [facility] [address] [id number] [place] [address] Apr, [facility] [place] [facility] [address] [facility] [id number] [place] [address] Mar, [facility] [place] [facility] [address] [facility] [id number] [place] [address] 30 Mar, 2014 [facility] [place] [facility] [address] [id number], [place] [address] 30 Mar, 2014 [facility] [place] [facility] [address] [id number], [place] [address] 30 Mar, 2014 [facility] [place] [facility] [address] [id number] [place] [address] 5685 Mar, [facility] [place] [facility] [address] [facility] [id number], [place] [address] Mar, [facility] [place] [facility] [address] [facility] [id number], [place] [address] Jan, [facility] [place] [facility] [address] [id number] [place] [address] Jan, [facility] [place] [facility] [address] [id number] [place] [address] 45[address] Jan, [facility] [place] [facility] [address] [id number] [place] [address] Jan, [facility] [place] [facility] [address] [id number] [place] [address] 6686 Jan, [facility] [place] [facility] [address] [id number] [place] [address] 0642 Jan, [facility] [place] [facility] [address] [id number] [place] [address] 6008 Dec, [facility] [place] [facility] [address] [id number] [place] [address]- [address]52 Dec, [facility] [place] [facility] [address] [id number] [place] [address]- 1125 Dec, [facility] [place] [facility] [address] [id number] [place] [address]- 3771 Dec, [facility] [place] [facility] [address] [id number] [place] [address]- 8449 Dec, [facility] [place] [facility] [address] [id number] [place] [address]- 8345 Dec, [facility] [place] [facility] [address] [id number] [place] [address]- 9884 Dec, [facility] [place] [facility] [address] [id number] [place] [address]- 5004 Dec, [facility] [place] [facility] [address] [id number] [place] [address]- 1178 Dec, [facility] [place] [facility] [address] [id number] [place] [address]- 1314 Dec, [facility] [place] [facility] [address] [id number] [place] [address]- 9028 Dec, [facility] [place] [facility] [address] [id number] [place] [address]- 6423 Dec, [facility] [place] [facility] [address] [id number] [place] [address] 3801 Dec, [facility] [place] [facility] [address] [id number] [place] [address]- 4750 Dec, [facility] [place] [facility] [address] [id number] [place] [address]- 9135 Dec, [facility] [place] [facility] [address] [id number] [place] [address]- 5668 Dec, [facility] [place] [facility] [address] [id number] [place] [address] 1932 October, [facility] [place] [facility] [address] [id number] [place] [address]- 3666 October, [facility] [place] [facility] [address] [id number] [place] [address]- 2778 October, [facility] [place] [facility] [address] [id number] [place] [address]- 2967 October, [facility] [place] [facility] [address] [id number] [place] [address]- 7607 October, [facility] [place] [facility] [address] [id number] [place] [address]- 3344 October, [facility] [place] [facility] [address] [id number] [place] [address]- 8023 Oct, [facility] [place] [facility] [address] [id number] [place] [address]- 3323 Oct, [facility] [place] [facility] [address] [id number] [place] [address]- 5571 Oct, [facility] [place] [facility] [address] [id number] [place] [address]- 1091 Oct, [facility] [place] [facility] [address] [id number] [place] [address]- 2137 Oct, [facility] [address] [id number] [place] [address]- 6146 Oct, [facility] [address] [id number] [place] [address]- 7465 Aug, [facility] [address] [id number] [place] [address]- 1820 Aug, [facility] [place] [facility] [address] [id number] [place] [address]- 6951 Aug, [facility] [address] [id number] [place] [address]- 2313 Aug, [facility] [address] [id number] [place] [address]- 7995 Jul, [facility] [address] [id number] [place] [address]- 4536 Jul, [facility] [address] [id number] [place] [address]- 6205 Jul, [facility] [address] [id number] [place] [address]- 7505 Jul, [facility] [address] [id number] [place] [address]- 3099 Jun, [facility] [place] [facility] [address] [id number] [place] [address] 2546 31 Jun, 2013 [facility] [place] [facility] [address] [id number] [place] [address]- 5531 24 Jun, 2013 [facility] [place] [facility] [address] [id number] [place] [address]- 2996 24 Jun, 2013 [facility] [place] [facility] [address] [id number] [place] [address]- [address]21 20 Jun, 2013 [facility] [place] [facility] [address] [id number] [place] [address] Jun, [facility] [place] [facility] [address] [id number] [place] [address]- 9924 Jun, [facility] [place] [facility] [address] [id number] [place] [address]- 6063 Jun, [facility] [place] [facility] [address] [id number] [place] [address]- 9452 Jun, [facility] [place] [facility] [address] [id number] [place] [address]- 9726 Jun, [facility] [place] [facility] [address] [id number] [place] [address]- 8893 Jun, [facility] [place] [facility] [address] [id number] [place] [address]- 4357 May, [facility] [place] [facility] [address] [id number] [place] [address]- 1257 May, [facility] [place] [facility] [address] [id number], [place] [address]- 2555 May, [facility] [place] [facility] [address] [id number] [place] [address]- 7621 May, [facility] [place] [facility] [address] [id number], [place] [address]- 2263 May, [facility] [place] [facility] [address] [id number], [place] [address]- 4145 May, [facility] [place] [facility] [address] [id number], [place] [address]- 2766 May, [facility] [place] [facility] [address] [id number], [place] [address]- 2442 Apr, [facility] [place] [facility] [address] [id number], [place] [address]- 0683 Apr, [facility] [place] [facility] [address] [id number], [place] [address]- 5700 Apr, [facility] [place] [facility] [address] [id number], [place] [address]- 2405 Apr, [facility] [place] [facility] [address] [id number] [place] [address]- 7554 27 Mar, 2012 [facility] [place] [facility] [address] [id number] [place] [address] 2546 Mar, [facility] [place] [facility] [address] [id number] [place] [address]- 0526 Mar, [facility] [place] [facility] [address] [id number] [place] [address] 2541 Mar, [facility] [place] [facility] [address] [id number] [place] [address]- 6519 Mar, [facility] [place] [facility] [address] [id number] [place] [address]- 5845 Mar, [facility] [place] [facility] [address] [id number] [place] [address]- 4143 Jan, [facility] [place] [facility] [address] [id number] [place] [address]- 0802 Jan, [facility] [place] [facility] [address] [id number] [place] [address]- 9615 Jan, [facility] [place] [facility] [address] [id number] [place] [address]- 8845 Jan, [facility] [place] [facility] [address] [id number] [place] [address]- 8745 Jan, [facility] [place] [facility] [address] [id number] [place] [address]- 8897 Dec, [facility] [place] [facility] [address] [id number] [place] [address]- 9705 Dec, [facility] [place] [facility] [address] [id number] [place] [address]- 9184 Dec, [facility] [place] [facility] [address] [id number] [place] [address]- 3025 Dec, [facility] [place] [facility] [address] [id number] [place] [address]- 8216 Dec, [facility] [address] [id number] [place] [address]- 3367 Dec, [facility] [address] [id number] [place] [address]- 9312 Dec, [facility] [address] [id number] [place] [address]- 9826 Dec, [facility] [address] [id number] [place] [address]- 3439 October, [facility] [address] [id number] [place] [address]- 0037 October, [facility] [address] [id number] [place] [address]- 6417 October, [facility] [address] [id number] [place] [address]- 0059 Oct, [facility] [address] [id number] [place] [address]- 6113 Oct, [facility] [address] [id number] [place] [address]- 9291 Oct, [facility] [address] [id number] [place] [address]- 6305 Oct, [facility] [address] [id number] [place] [address]- 1052 Aug, [facility] [address] [id number] [place] [address]- 8336 Aug, [facility] [place] [facility] [address] [id number] [place] [address]- 2342 05 Aug, 2012 [facility] [place] [facility] [address] [id number] [place] [address]- 4433 Jul, [facility] [address] [id number] [place] [address]- 0381 May, [facility] [place] [facility] [address] [id number] [place] [address]- 2153 May, [facility] [place] [facility] [address] [id number] [place] [address]- 1675 Apr, [facility] [place] [facility] [address] [id number] [place] [address]- 0427 Apr, [facility] [place] [facility] [address] [id number] [place] [address]- 2980 Apr, [facility] [place] [facility] [address] [id number] [place] [address]- 1204 Apr, [facility] [place] [facility] [address] [id number] [place] [address]- 3530 Apr, [facility] [place] [facility] [address] [id number] [place] [address]- 6602 Apr, [facility] [place] [facility] [address] [id number], [place] [address]- 6562 Apr, [facility] [place] [facility] [address] [id number] [place] [address]- 9700 Apr, [facility] [place] [facility] [address] [id number], [place] [address]- 6804 Apr, [facility] [place] [facility] [address] [id number], [place] [address]- 7147 Apr, [facility] [place] [facility] [address] [id number], [place] [address]- 4082 14 Apr, 2012 [facility] [place] [facility] [address] [id number] [place] [address]- 1539 Apr, [facility] [place] [facility] [address] [id number], [place] [address]- 0369 Mar, [facility] [place] [facility] [address] [id number] [place] [address]33 Jan, [facility] [place] [facility] [address] [id number] [place] [address]- 6587 Dec, [facility] [address] [id number] [place] [address]- 5687 October, [facility] [place] [facility] [address] [id number] [place] [address]- 3686 Oct, [facility] [place] [facility] [address] [id number] [place] [address]- 7377 Oct, [facility] [place] [facility] [address] [id number] [place] [address]- 4549 Oct, [facility] [place] [facility] [address] [id number] [place] [address]- 2878 Aug, [facility] [place] [facility] [address] [id number] [place] [address]- 2997 Aug, [facility] [address] [id number] [place] [address]- 3727 29 Aug, 2011 [facility] [place] [facility] [address] [id number] [place] [address]- 7999 16 Aug, 2011 [facility] [place] [facility] [id number] [place] [address]- 4041 Aug, [facility] [address] [facility] [id number] [place] [address]- 5012 Aug, [facility] [place] [facility] [address] [id number] [place] [address]- 4754 Jun, [facility] [place] [facility] [address] [id number] [place] [address]- 8871 Apr, [facility] [place] [facility] [address] [id number] [place] [address]- 2754 Jun, [facility] [place] [facility] [address] [id number] [place] [address]- 2546 Jun, [facility] [place] [facility] [address] [facility] [id number] [place] [address]- 5916 May, [facility] [address] [facility] [id number] [place] [address]- 9682 May, [facility] [address] [facility] [id number] [place] [address]- 8470 Apr, [facility] [address] [facility] [id number] [place] [address]- 5999 13 Apr, 2009 IMMUNIZATIONS No Known Immunizations SOCIAL HISTORY Never Assessed REASON FOR VISIT Cont Sx/Requests return call PLAN OF CARE VITAL SIGNS MEDICATIONS Medication Instructions Dosage Frequency Start Date End Date Duration Status Amoxicillin 500 mg Orally every 8 hrs 2 tablets 8h 13 May, 2017 Jun, 07 days Active RESULTS No Results PROCEDURES [...] above surgeries Hospitalization History Anaphylactic shock-[facility] 08/23/16
--- OUTSIDE RECORDS SUMMARY | 2018-07-18 08:08 | XMS REPORT ---
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 Name Role Phone BRANDYTEZ HOYTHANY Unavailable PROBLEMS Type Condition ICD9-CM Code ESS75-HH Code Onset Dates Condition Status SNOMED Code Problem Migraine with aura and without status migrainosus, not intractable G43.109 Active 1055542 Problem PCOS (polycystic ovarian syndrome) E28.2 Active 63711343 Problem Uncomplicated severe persistent asthma J45.50 Active 762542855 Problem Severe persistent asthma with exacerbation J45.51 Active 751148855 Problem Other elevated white blood cell (WBC) count D72.828 Active 427210779 Problem Multiple food allergies Z91.018 Active 558185105 Problem Pure hypercholesterolemia E78.00 Active 888858669 Problem Current chronic use of inhaled steroid Z79.51 Active 979895093 Problem Asthma exacerbation J45.901 Active 686808069 Problem ADD (attention deficit disorder) F90.0 Active 243404609 Problem Allergic rhinitis due to pollen J30.1 Active 80792237 Problem Vitamin D deficiency E55.9 Active 34764605 Problem Major depressive disorder, recurrent episode, mild F33.0 Active 204708133 Problem Acquired hypothyroidism E03.9 Active 179166766 Problem Gastroesophageal reflux disease without esophagitis K21.9 Active 567337028 ALLERGIES No Information ENCOUNTERS Encounter Location Date Diagnosis [facility] [place] [address] [facility] [id number] [address] Aug, Haemophilus influenzae infection A49.2 [facility] [place] [address] [address] Aug, Cough productive of purulent sputum R05 [facility] [place] [address] [id number] [address] Aug, [facility] [place] [address] [address]- [address] 08 Aug, 2017 Pulmonary congestion R09.89 [id number]- [address] Aug, Severe persistent asthma with exacerbation J45.51 ; Hiatal hernia K44.9 and Gastroesophageal reflux disease without esophagitis K21.[address] [address]- [address] Aug, Other elevated white blood cell (WBC) count D72.[address] [address]10- 2872 Aug, Uncomplicated severe persistent asthma J45.[address] 67884- 2332 Aug, Pure hypercholesterolemia E78.00 ; Uncomplicated severe persistent asthma J45.50 and Acquired hypothyroidism E03.[address] 7[address]83- 7716 20 Aug, 2017 Acquired hypothyroidism E03.9 ; Pure hypercholesterolemia E78.00 and Uncomplicated severe persistent asthma J45.[address] 9[address]82- 3366 15 Aug, 2017 Allergic rhinitis due to pollen J30.[address] 07653- 2275 Aug, Allergic rhinitis due to pollen J30.1 [place] [address] 57653- 5452 Aug, [place] [address] [id number] Jul, Pharyngitis, unspecified etiology J02.9 and Lymphadenopathy R59.[address] 51752- 6855 Jul, ADD (attention deficit disorder) F90.0 [place] [id number] [place] [address] 01690- 1787 Jul, Allergic rhinitis due to pollen J30.1 [place] [address] 78014- 4137 Jul, Dental examination Z01.20 [place] [address] 51207- 8846 Jun, Cough productive of purulent sputum R05 [place] [address] 92234- 4425 Jun, Allergic rhinitis due to pollen J30.1 [place] [address] 53572- 2222 Jun, [place] [address] 94584- 6719 Jun, Allergic rhinitis due to pollen J30.1 [place] [address] 32273- 3770 Jun, Allergic rhinitis due to pollen J30.1 [place] [address] [place] [id number] [place] [address] 26661- 0323 May, Allergic rhinitis due to pollen J30.1 [place] [address] [place] [id number] [place] [address] 75757- 8423 May, Pneumonia due to Haemophilus influenzae, unspecified laterality, unspecified part of lung J14 [place] [address] [place] [id number] [place] [address] 37580- 1567 May, Allergic rhinitis due to pollen J30.1 [place] [address] [place] [id number] [place] [address] 76655- 0107 May, Other adverse food reactions, not elsewhere classified, initial encounter T78.1XXA and Pneumonia due to Haemophilus influenzae, unspecified laterality, unspecified part of lung J14 [place] [address] [place] [id number] [place] [address] 30539- 4495 May, Pneumonia due to Haemophilus influenzae, unspecified laterality, unspecified part of lung J14 [place] [address] [place] [id number] [place] [address] 25523- 9769 May, Multiple food allergies Z91.018 ; Uncomplicated severe persistent asthma J45.50 ; Cough productive of purulent sputum R05 and Uses central nervous system stimulants F15.90 [place] [address] [place] [id number] [place] [address] 45359- 0077 Apr, Allergic rhinitis due to pollen J30.1 [place] [address] [place] [id number] [place] [address] 37909- 1798 Apr, Allergic rhinitis due to pollen J30.1 [place] [address] 59221- 4375 Apr, Allergic rhinitis due to pollen J30.1 [place] [address] 25747- 5999 Apr, ADD (attention deficit disorder) F90.0 [place] [address] 46906- 1924 28 Mar, 2017 Allergic rhinitis due to pollen J30.1 [place] [address] [place] [id number] [place] [address] 94122- 0660 21 Mar, 2017 Encounter for immunization Z23 [place] [address] [place] [id number] [place] [address] 74296- 7995 19 Mar, 2017 [place] [address] [place] [id number] [place] [address] 66254- 2789 14 Mar, 2017 Allergic rhinitis due to pollen J30.1 [place] [address] [place] [id number] [place] [address] 04231- 1950 07 Mar, 2017 Allergic rhinitis due to pollen J30.1 [place] [address] [place] [id number] [place] [address] 69543- 1461 16 Jan, 2017 Allergic rhinitis due to pollen J30.1 [place] [address] 64936- 6009 Jan, Allergic rhinitis due to pollen J30.1 [place] [address] [place] [address] 70214- 8621 Dec, Uncomplicated severe persistent asthma J45.50 [place] [address] [place] [id number] [place] [address] 03283- 3098 Dec, Allergic rhinitis due to pollen J30.1 [place] [address] [place] [id number] [place] [address] 85700- 8788 Dec, Allergic rhinitis due to pollen J30.1 [place] [address] [place] [id number] [place] [address] 98685- 0854 Dec, Allergic rhinitis due to pollen J30.1 [place] [address] [place] [id number] [place] [address] 22417- 5191 Dec, ADD (attention deficit disorder) F90.0 [place] [address] [place] [id number] [place] [address] 08245- 2175 Dec, Allergic rhinitis due to pollen J30.1 [place] [address] [place] [id number] [place] [address] 13184- 2416 Dec, Visit for TB skin test Z11.1 and Screening for tuberculosis Z11.1 [place] [address] [place] [id number] [place] [address] 25774- 9749 Dec, Uncomplicated severe persistent asthma J45.50 ; Palpitations R00.2 ; Pericardial effusion (noninflammatory) I31.3 and Chest discomfort R07.89 [place] [address] [place] [address] 33809- 3644 Dec, Allergic rhinitis due to pollen J30.1 [place] [address] [place] [id number] [place] [address] 99022- 4094 Dec, Chronic cough R05 [place] [address] [place] [id number] [place] [address] 79037- 8258 Dec, [place] [address] [place] [id number] [place] [address] 92944- 9400 15 Dec, 2016 Allergic rhinitis due to pollen J30.1 [place] [address] [place] [id number] [place] [address] 57249- 7773 Dec, Allergic rhinitis due to pollen J30.1 [place] [address] [place] [id number] [place] [address] 62248- 5167 Dec, Chronic cough R05 [place] [address] 73080- 2907 October, Allergic rhinitis due to pollen J30.1 [place] [address] 70905- 3879 October, Allergic rhinitis due to pollen J30.1 [place] [address] [place] [id number] [place] [address] 22697- 8748 October, [place] [address] 36137- 5010 October, Asthma exacerbation J45.901 [place] [address] [place] [id number] [place] [address] 62248- 0765 October, Asthma exacerbation J45.901 and Current chronic use of inhaled steroid Z79.51 [place] [address] [place] [id number] [place] [address] 64575- 7675 October, Uncomplicated severe persistent asthma J45.50 [place] [address] [place] [id number] [place] [address] 74928- 9591 October, Allergic rhinitis due to pollen J30.1 [place] [address] [place] [id number] [place] [address] 44735- 9988 Oct, [place] [address] [place] [id number] [place] [address] 33313- 7406 Oct, Asthma exacerbation J45.901 and Sputum production R05 [place] [address] [place] [id number] [place] [address] 38055- 3793 Oct, Asthma exacerbation J45.901 [place] [address] [place] [id number] [place] [address] 18266- 6582 Oct, ADD (attention deficit disorder) F90.0 [place] [address] [place] [id number] [place] [address] 06718- 4724 Oct, ADD (attention deficit disorder) F90.0 [place] [address] 41468- 6932 Aug, Allergic rhinitis due to pollen J30.1 [place] [address] 60377- 8472 Aug, Atypical pneumonia J18.9 [place] [address] 26587- 2889 Aug, Allergic rhinitis due to pollen J30.1 [place] [address] 15258- 5283 Aug, Acquired hypothyroidism E03.9 [place] [address] 21152- 6459 Aug, Multiple food allergies Z91.018 ; Elevated blood pressure reading R03.0 and Anaphylaxis, subsequent encounter T78.2XXD [place] [address] [place] [id number] [place] [address] [id number] Aug, [place] [address] 16985- 3100 Aug, Anaphylaxis, initial encounter T78.2XXA [address] 92277- 9867 Aug, Allergic rhinitis due to pollen J30.1 [place] [address] [place] [id number] [place] [address] 32652- 8898 Aug, Dental examination Z01.[address] 19245- 9607 Aug, Allergic rhinitis due to pollen J30.1 [facility] [place] [address] [place] [address] 08712- 7632 06 Aug, 2016 Acquired hypothyroidism E03.9 and Pure hypercholesterolemia E78.00 [facility] [place] [address] [place] [id number] [place] [address] 81873- 8236 Aug, ADD (attention deficit disorder) F90.0 ; Acquired hypothyroidism E03.9 and Pure hypercholesterolemia E78.00 [facility] [place] [address] [place] [id number] [place] [address] 03709- 4818 Aug, Asthma exacerbation J45.901 [place] [address] 03754- 4459 Jul, Allergic rhinitis due to pollen J30.1 [facility] [place] [address] [place] [id number] [place] [address] 61846- 0198 Jul, Allergic rhinitis due to pollen J30.1 [facility] [place] [address] [place] [id number] [place] [address] 31841- 0955 Jul, [facility] [place] [address] [place] [id number] [place] [address] 50909- 1990 Jul, Allergic rhinitis due to pollen J30.1 [facility] [place] [address] [place] [id number] [place] [address] 56258- 1324 Jul, 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 (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 and ADD ( attention deficit disorder) F90.0 [facility] [place] [address] [place] [address] 03841- 3617 Jul, Other assistant terminal manager (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 and ADD ( attention deficit disorder) F90.0 [facility] [place] [address] [place] [id number] [place] [address] 95927- 3998 Jul, [facility] [place] [address] [place] [id number] [place] [address] 66293- 7812 Jun, Allergic rhinitis due to pollen J30.1 [facility] [place] [address] [place] [id number] [place] [address] 94636- 3281 Jun, Allergic rhinitis due to pollen J30.1 [facility] [place] [address] [place] [id number] [place] [address] 74384- 2935 Jun, [place] [address] [place] [id number] [place] [address] 79094- 5336 May, Allergic rhinitis due to pollen J30.1 [facility] [place] [address] [place] [id number] [place] [address] 56146- 6584 May, Allergic rhinitis due to pollen J30.1 [place] [address] [place] [id number] [place] [address] 80003- 0812 Apr, Allergic rhinitis due to pollen J30.1 [place] [address] [place] [id number] [place] [address] 41481- 0612 Apr, Allergic rhinitis due to pollen J30.1 [place] [address] 83184- 8999 Apr, Encounter for immunization Z23 [place] [address] 29902- 9837 Apr, [place] [address] [place] [id number] [place] [address] 65461- 9103 Mar, Allergic rhinitis due to pollen J30.1 [place] [address] [place] [id number] [place] [address] 38283- 3273 Mar, Multiple allergies Z88.9 [place] [address] [place] [id number] [place] [address] 67962- 6078 Mar, Candidal vaginitis B37.3 [place] [address] [place] [id number] [place] [address] 87226- 9977 08 Mar, 2016 Allergic rhinitis due to pollen J30.1 [place] [address] [place] [id number] [place] [address] 03737- 8017 Jan, Asthma exacerbation J45.901 ; Fatigue, unspecified type R53.83 and Community acquired pneumonia J18.9 [facility] [address] [id number] Jan, Encounter for dental examination Z01.20 [facility] [place] [address] [address]- 2107 Jan, Allergic rhinitis due to pollen J30.1 [facility] [place] [address] [place] [address] 67921- 1031 Dec, Allergic rhinitis due to pollen J30.1 [facility] [place] [address] [address]- 8632 Dec, [facility] [place] [address] [place] [id number] [place] [address] 14879- 9818 Dec, Allergic rhinitis due to pollen J30.1 [facility] [place] [address] [address]- 3601 Dec, [facility] [place] [address] [address]- 6748 Dec, [facility] [place] [address] [place] [address] 16491- 5688 Dec, [facility] [place] [address] [address]- 6191 Dec, Allergic rhinitis due to pollen J30.1 [facility] [place] [address] [address]- 8981 Dec, [facility] [place] [address] [address]- 5919 Dec, [facility] [place] [address] [place] [id number] [place] [address] 30566- 6591 Dec, Allergic rhinitis due to pollen J30.1 [facility] [place] [address] [address]- 4117 October, Allergic rhinitis due to pollen J30.1 [facility] [place] [address] [place] [address] [address]- 0824 October, Allergic rhinitis due to pollen J30.1 [facility] [place] [address] [place] [id number] [place] [address] 35618- 3510 October, [facility] [place] [address] [place] [id number] [place] [address] 77827- 0632 October, [place] [address] [place] [id number] [place] [address] 41444- 4329 October, ADD (attention deficit disorder) F90.0 ; Major depressive disorder, recurrent episode, mild F33.0 and Uncomplicated severe persistent asthma J45.50 [place] [address] [place] [id number] [place] [address] 71520- 7970 Oct, Allergic rhinitis due to pollen J30.1 [place] [address] [place] [id number] [place] [address] 18125- 2351 Oct, ADD (attention deficit disorder) F90.0 [place] [address] [place] [id number] [place] [address] 89175- 2703 Oct, Allergic rhinitis due to pollen 477.0 [place] [address] [place] [id number] [place] [address] 40492- 0684 Aug, Allergic rhinitis due to pollen 477.0 [place] [address] [place] [address] 41166- 3138 Aug, 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 [place] [address] [place] [id number] [place] [address] 42397- 1430 Aug, [place] [address] [place] [id number] [place] [address] 42169- 1974 Aug, Allergic rhinitis due to pollen 477.0 [place] [address] [place] [address] 09087- 9261 Aug, Allergic rhinitis due to pollen 477.0 [place] [address] [place] [id number] [place] [address] 27343- 8587 Aug, Allergic rhinitis due to pollen 477.0 [facility] [place] [address] [place] [address] 64126- 2439 Aug, Exposure to influenza Z20.828 [facility] [address] [place] [address] [id number] 19 Aug, 2015 Encounter for dental examination and cleaning without abnormal findings Z01.20 [place] [address] [place] [id number] [place] [address] 89375- 4669 Aug, Allergic rhinitis due to pollen J30.1 [place] [address] 59212- 0798 Aug, [place] [address] 91810- 6978 Aug, 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 [place] [address] 13927- 1684 Jul, [place] [address] 24674- 5543 Jul, Allergic rhinitis due to pollen 477.0 [place] [address] [place] [id number] [place] [address] 39955- 1359 Jul, [place] [address] [place] [id number] [place] [address] 90958- 0716 Jul, Allergic rhinitis due to pollen 477.0 [place] [address] [place] [id number] [place] [address] 02734- 9811 Jun, ADD (attention deficit disorder) F90.0 ; Acquired hypothyroidism E03.9 ; PCOS (polycystic ovarian syndrome) E28.2 ; Polyarthralgia M25.50 and On stimulant medication Z79.899 [place] [address] [place] [id number] [place] [address] 02573- 4126 16 Apr, 2015 Encounter for immunization Z23 [place] [address] 34026- 2889 16 Mar, 2015 Allergic rhinitis due to pollen 477.0 [facility] [place] [address] [place] [address] 54654- 7232 Mar, Influenza vaccine administered V04.81 [facility] [place] [address] [place] [address] 31835- 8607 Mar, [facility] [place] [address] [place] [id number] [place] [address] 62470- 4977 Jan, Allergic rhinitis due to pollen 477.0 [facility] [place] [address] [place] [id number] [place] [address] 37550- 7079 Jan, Allergic rhinitis due to pollen 477.0 [facility] [place] [address] [place] [id number] [place] [address] 42237- 7133 Jan, Allergic rhinitis due to pollen 477.0 [facility] [address] [place] [id number] [place] [address] [id number] Jan, Dental examination V72.2 [facility] [place] [address] [place] [id number] [place] [address] 91925- 3749 Dec, Allergic rhinitis due to pollen 477.0 [facility] [place] [address] [place] [id number]- [address] October, [facility] [place] [id number] [place] [address] [id number]- [id number] Oct, [facility] [place] [id number] [place] [address] [phone]- [phone] Oct, [facility] [place] [id number] [place] [address] 05013- 3286 Aug, [facility] [place] [id number] [place] [address] [phone]- [phone] Aug, [facility] [place] [id number] [address] Aug, [facility] [place] [id number] [address] Aug, [facility] [place] [facility] [address] [id number] [place] [address]359 Aug, [facility] [place] [facility] [address] [id number] [place] [address] Aug, [facility] [place] [facility] [address] [id number] [place] [address] 8862 Aug, [facility] [place] [facility] [address] [id number] [place] [address] 8023 Aug, [facility] [place] [facility] [address] [id number] [place] [address] 2675 Jul, [facility] [place] [facility] [address] [id number] [place] [address] 7711 Jul, [facility] [place] [facility] [address] [facility] [id number] [place] [address]- [address] Jul, [facility] [place] [facility] [address] [id number] [place] [address]- 3928 Jul, [facility] [place] [facility] [address] [facility] [id number] [place] [address]229 Jul, [facility] [place] [facility] [address] [facility] [id number] [place] [address] 8618 Jul, [facility] [place] [facility] [address] [id number] [place] [address] 4129 Jul, [facility] [place] [facility] [address] [id number] [place] [address] 6948 Jul, [facility] [place] [facility] [address] [address] [id number] [place] [address] Jul, [facility] [place] [facility] [address] [id number] [place] [address] Jul, [facility] [place] [facility] [address] [id number] [place] [address] Jul, [facility] [place] [facility] [address] [id number] [place] [address] 1467 Jun, [facility] [place] [facility] [address] [id number] [place] [address] Jun, [facility] [place] [facility] [address] [id number] [place] [address] Jun, [facility] [place] [facility] [address] [id number] [place] [address] 9973 Jun, [facility] [place] [facility] [address] [id number] [place] [address] Jun, [facility] [place] [facility] [address] [id number] [place] [address] Jun, [facility] [place] [facility] [address] [id number] [place] [address]677 May, [facility] [place] [facility] [address] [id number] [place] [address] 1319 May, [facility] [place] [facility] [address] [id number] [place] [address] 8264 May, [facility] [place] [facility] [address] [id number] [place] [address] 8200 May, [facility] [place] [facility] [address] [id number] [address] May, [facility] [place] [facility] [address] [id number], [place] [address] May, [facility] [place] [facility] [address] [id number] [place] [address] Apr, [facility] [place] [facility] [address] [id number] [place] [address] Apr, [facility] [place] [facility] [address] [id number], [place] [address] Mar, [facility] [place] [facility] [address] [id number], [place] [address] Mar, [facility] [place] [facility] [address] [id number] [place] [address] Mar, [facility] [place] [facility] [address] [id number] [place] [address] 3490 Mar, [facility] [place] [facility] [address] [id number] [place] [address] 4626 Mar, [facility] [place] [facility] [address] [id number] [place] [address] 8445 Mar, [facility] [place] [facility] [address] [id number] [place] [address] 3949 Jan, [facility] [place] [facility] [address] [id number] [place] [address] 2189 Jan, [facility] [place] [facility] [address] [id number] [place] [address] 9338 Jan, [facility] [place] [facility] [address] [id number] [place] [address]- 9275 Jan, [facility] [place] [facility] [address] [id number] [place] [address]- 6574 Jan, [facility] [place] [facility] [address] [id number] [place] [address]- 7795 Jan, [facility] [place] [facility] [address] [id number] [place] [address] 4628 Dec, [facility] [place] [facility] [address] [id number] [place] [address]- 6097 Dec, [facility] [place] [facility] [address] [id number] [place] [address] 2796 Dec, [facility] [place] [facility] [address] [id number] [place] [address] Dec, [facility] [place] [facility] [address] [id number] [place] [address]- 7088 Dec, [facility] [place] [facility] [address] [id number] [place] [address] 3004 Dec, [facility] [place] [facility] [address] [id number] [place] [address] 5553 Dec, [facility] [place] [facility] [address] [id number] [place] [address] 3839 Dec, [facility] [place] [facility] [address] [id number] [place] [address] 3459 Dec, [facility] [place] [facility] [address] [id number] [place] [address] Dec, [facility] [place] [facility] [address] [id number] [place] [address]- 4206 Dec, [facility] [place] [facility] [address] [id number] [place] [address] 4863 Dec, [facility] [place] [facility] [address] [id number] [place] [address] 3389 Dec, [facility] [place] [facility] [address] [id number] [place] [address] 5502 Dec, [facility] [place] [facility] [address] [id number] [place] [address]- 2493 Dec, [facility] [place] [facility] [address] [id number] [place] [address]- 3274 Dec, [facility] [place] [facility] [address] [id number] [place] [address] 3066 October, [facility] [place] [facility] [address] [id number] [place] [address] 3231 October, [facility] [place] [facility] [address] [id number] [place] [address] 4[address] October, [facility] [place] [facility] [address] [id number] [place] [address]- 0780 October, [facility] [place] [facility] [address] [id number] [place] [address]- 1746 October, [facility] [place] [facility] [address] [id number] [place] [address]- 9694 October, [facility] [place] [facility] [address] [id number] [place] [address]- 8251 Oct, [facility] [place] [facility] [address] [id number] [place] [address]- 5390 Oct, [facility] [place] [facility] [address] [id number] [place] [address]- 3741 Oct, [facility] [place] [facility] [address] [id number] [place] [address]- 8233 Oct, [facility] [place] [facility] [address] [id number] [place] [address]- 5916 Oct, [facility] [place] [facility] [address] [id number] [place] [address]- 9752 Oct, [facility] [place] [facility] [address] [id number] [place] [address]- 0196 Aug, [facility] [place] [facility] [address] [id number] [place] [address]- 1173 Aug, [facility] [place] [facility] [address] [id number] [place] [address]- 7824 Aug, [facility] [place] [facility] [address] [id number] [place] [address]- 3692 Aug, [facility] [place] [facility] [address] [id number], [place] [address] 61[address] Jul, [facility] [place] [facility] [address] [id number] [place] [address]- 5205 Jul, [facility] [place] [facility] [address] [id number] [place] [address]- 5469 Jul, [facility] [place] [facility] [address] [id number] [place] [address]- 5892 Jul, [facility] [place] [facility] [address] [id number] [place] [address]- 0815 Jun, [facility] [address] [id number] [place] [address]- 3395 Jun, [facility] [place] [facility] [address] [id number] [place] [address] Jun, [facility] [address] [id number] [place] [address]- 7477 Jun, [facility] [place] [facility] [address] [id number] [place] [address]- 9596 Jun, [facility] [address] [id number] [place] [address]- 3385 Jun, [facility] [address] [id number] [place] [address]- 1403 Jun, [facility] [address] [id number] [place] [address] Jun, [facility] [address] [id number] [place] [address]- 4917 Jun, [facility] [place] [facility] [address] [id number] [place] [address]- 6871 Jun, [facility] [address] [facility] [id number] [place] [address]- 3547 04 Jun, 2013 [facility] [place] [facility] [address] [id number] [place] [address]- 5662 May, [facility] [place] [facility] [address] [id number] [place] [address]- 6243 May, [facility] [place] [facility] [address] [id number] [place] [address]- 9850 May, [facility] [place] [facility] [address] [id number] [place] [address] May, [facility] [place] [facility] [address] [id number] [place] [address]- 9207 May, [facility] [place] [facility] [address] [id number] [place] [address]- 0080 May, [facility] [place] [facility] [address] [id number] [place] [address] May, [facility] [place] [facility] [address] [id number] [place] [address]- 3091 Apr, [facility] [place] [facility] [address] [id number] [place] [address]- 9018 Apr, [facility] [place] [facility] [address] [id number] [place] [address]- 7042 Apr, [facility] [place] [facility] [address] [id number] [place] [address]- 4160 Apr, [facility] [place] [facility] [address] [id number] [place] [address]- 6388 27 Mar, 2013 [facility] [place] [facility] [address] [id number] [place] [address]- 4926 Mar, [facility] [place] [facility] [address] [id number] [place] [address]- 2831 Mar, [facility] [place] [facility] [address] [id number] [place] [address]- 7556 23 Mar, 2013 [facility] [place] [facility] [address] [id number] [place] [address]- 3453 Mar, [facility] [place] [facility] [address] [id number] [place] [address]- 1682 Mar, [facility] [place] [facility] [address] [id number] [place] [address]- 3483 Jan, [facility] [place] [facility] [address] [id number] [place] [address]- 1422 Jan, [facility] [place] [facility] [address] [id number] [place] [address]- 8486 Jan, [facility] [place] [facility] [address] [id number] [place] [address]- 4517 Jan, [facility] [address] [id number] [place] [address] Jan, [facility] [place] [facility] [address] [id number] [place] [address]- 1640 Dec, [facility] [place] [facility] [address] [id number] [place] [address]- 5848 Dec, [facility] [place] [facility] [address] [id number] [place] [address]- 8235 Dec, [facility] [place] [facility] [address] [id number] [place] [address] Dec, [facility] [place] [facility] [address] [id number] [place] [address]- 6066 Dec, [facility] [place] [facility] [address] [id number] [place] [address]- 2619 Dec, [facility] [place] [facility] [address] [id number] [place] [address]- 7475 Dec, [facility] [place] [facility] [address] [id number] [place] [address]- 8538 Dec, [facility] [place] [facility] [address] [id number] [place] [address]- 7277 October, [facility] [place] [facility] [address] [id number] [place] [address]- 8967 October, [facility] [place] [facility] [address] [id number] [place] [address]- 8946 October, [facility] [place] [facility] [address] [id number] [place] [address] 24 Oct, 2012 [facility] [place] [facility] [address] [id number] [place] [address]200 Oct, [facility] [place] [facility] [address] [id number] [place] [address]37 17 Oct, 2012 [facility] [place] [facility] [address] [id number] [place] [address]- 9676 Oct, [facility] [place] [facility] [address] [id number] [place] [address]- 3757 Aug, [facility] [place] [facility] [address] [id number] [place] [address]- 4646 Aug, [facility] [place] [facility] [address] [id number] [place] [address]- 3016 Aug, [facility] [place] [facility] [address] [id number] [place] [address]- 2067 Jul, [facility] [place] [facility] [address] [id number] [place] [address]- 2752 May, [facility] [place] [facility] [address] [id number] [place] [address]- 7018 May, [facility] [place] [facility] [address] [id number] [place] [address]- 1772 Apr, [facility] [address] [id number] [place] [address]- 5644 Apr, [facility] [place] [facility] [address] [id number] [place] [address]- 2904 Apr, [facility] [address] [id number] [place] [address]- 1902 Apr, [facility] [place] [facility] [address] [id number] [place] [address]- 5133 Apr, [facility] [place] [facility] [address] [id number] [place] [address]- 3352 Apr, [facility] [place] [facility] [address] [id number] [place] [address] Apr, [facility] [place] [facility] [address] [id number] [place] [address]- 9882 Apr, [facility] [place] [facility] [address] [id number] [place] [address]- 4519 Apr, [facility] [place] [facility] [address] [id number] [place] [address]- 0721 Apr, [facility] [place] [facility] [address] [id number] [place] [address]- 2773 Apr, [facility] [place] [facility] [address] [id number] [place] [address]- 7772 Apr, [facility] [place] [facility] [address] [id number] [place] [address]- 0538 Mar, [facility] [place] [facility] [address] [id number] [place] [address]- 5046 Jan, [facility] [place] [facility] [address] [id number] [place] [address]- 4128 Dec, [facility] [place] [facility] [address] [id number] [place] [address]- 4951 October, [facility] [place] [facility] [address] [id number] [place] [address]- 2082 Oct, [facility] [place] [facility] [address] [id number] [place] [address]- 0596 Oct, [facility] [place] [facility] [address] [id number] [place] [address]- 0508 Oct, [facility] [place] [facility] [address] [id number] [place] [address]- 5510 Aug, [facility] [place] [facility] [address] [id number] [place] [address]- 4394 Aug, [facility] [place] [facility] [address] [id number] [place] [address]- 7357 Aug, [facility] [place] [facility] [address] [id number] [place] [address]- 8836 16 Aug, 2011 [facility] [place] [facility] [address] [id number] [place] [address]- 4699 15 Aug, 2011 [facility] [place] [facility] [address] [facility] [id number] 02 Aug, 2011 [facility] [place] [address] [address] 2303 Jun, [facility] [place] [address] [address]- 5773 Apr, [facility] [place] [address] [address]- 0273 Jun, [facility] [place] [address] [address]- 2541 Jun, [facility] [place] [address] [address]- 7264 May, [facility] [place] [address] [address]- 4794 May, [facility] [place] [address] [address]- 2900 Apr, [facility] [place] [id number] [address]- [address]178 Apr, IMMUNIZATIONS No Known Immunizations SOCIAL HISTORY Never Assessed REASON FOR VISIT Allergy injection(s) patricia keith PLAN OF CARE VITAL SIGNS MEDICATIONS Unknown Medications RESULTS No Results PROCEDURES Procedure Date Ordered Result Body Site IMMUNOTHERAPY, 2 OR MORE INJECTIONS 2016-12-08 N/A IMMUNOTHERAPY INJECTIONS December 08, 2016 INSTRUCTIONS MEDICATIONS ADMINISTERED No Known Medications [...] History see above surgeries Hospitalization History Anaphylactic shock-[facility] 08/23/16
--- OUTSIDE RECORDS SUMMARY | 2018-07-18 08:09 | XMS REPORT ---
Author Author BRANDY SAGAR Organization [facility] Address [address] [place] [address] Care Team Providers Care Merit System Director Name Role Phone TEZ NAVAHANY Unavailable PROBLEMS Type Condition ICD9-CM Code [id number] Code Onset Dates Condition Status SNOMED Code Problem ADD (attention deficit disorder) F90.0 Active 595686443 Problem Major depressive disorder, recurrent episode, mild F33.0 Active 152530083 Problem Allergic rhinitis due to pollen J30.1 Active 39547396 Problem Current chronic use of inhaled steroid Z79.51 Active 611799124 Problem Asthma exacerbation J45.901 Active 544175909 Problem Pure hypercholesterolemia E78.00 Active 957324245 Problem PCOS (polycystic ovarian syndrome) E28.2 Active 10827433 Problem Multiple food allergies Z91.018 Active 008275250 Problem Dental examination Z01.20 Active 192170393 Problem Uncomplicated severe persistent asthma J45.50 Active 204710999 Problem Gastroesophageal reflux disease without esophagitis K21.9 Active 004322832 Problem Migraine with aura and without status migrainosus, not intractable G43.109 Active 2619728 Problem Vitamin D deficiency E55.9 Active 69566647 Problem Acquired hypothyroidism E03.9 Active 473076099 ALLERGIES No Information SOCIAL HISTORY Never Assessed PLAN OF CARE VITAL SIGNS MEDICATIONS Medication Instructions Dosage Frequency Start Date End Date Duration Status Levothyroxine Sodium 100 MCG Orally Once a day 1 tablet 24h 90 days Active RESULTS No Results PROCEDURES [...]
--- OUTSIDE RECORDS SUMMARY | 2018-07-18 08:09 | XMS REPORT ---
Author Author MIRTHA OJEDA [facility] [employer] Address Unknown Phone Unavailable Care Team Providers Care Engine Hostler Name Role Phone MIRTHA OJEDA Unavailable Allergies, Adverse Reactions, Alerts Substance Reaction Event Type Zithromax Info Not Available Drug Allergy Ceftin Info Not Available Drug Allergy Morphine Patient is a fast metabolizer and medication is not effective Drug Allergy FLUORIDE VARNISH Info Not Available Non Drug Allergy Ossian Info Not Available Non Drug Allergy Soybeans Info Not Available Non Drug Allergy Wheat Info Not Available Non Drug Allergy Malt Extract Info Not Available Non Drug Allergy Asprin Info Not Available Non Drug Allergy Problems Problem Type Condition Code Onset Dates Condition Status Problem Vitamin D deficiency E55.9 Active Problem Uncomplicated severe persistent asthma J45.50 Active Problem Major depressive disorder, recurrent episode, mild F33.0 Active Assessment Encounter for dental examination Z01.20 Active Problem Allergic rhinitis due to pollen J30.1 Active Problem ADD (attention deficit disorder) F90.0 Active Problem Encounter for dental examination Z01.20 Active Problem PCOS (polycystic ovarian syndrome) E28.2 Active Problem Migraine with aura and without status migrainosus, not intractable G43.109 Active Problem Acquired hypothyroidism E03.9 Active Problem Gastroesophageal reflux disease without esophagitis K21.9 Active Medications Medication Code System Code Instructions Start Date End Date Status Dosage Singulair [facility] [address]-00 10 mg Apr 26, 2012 take 1 tablet by Oral route 1 time per day Lutera [facility] [address]-86 0.1-20 MG-MCG Orally Once a day 1 tablet Maxalt [facility] [address]-55 10 MG Orally Once a day 1 tablet as needed one time Sklice [facility] [address]-87 0.5 % Externally December 15, 2015 as directed Nasonex [facility] [address]-74 50 mcg/actuation Nasally 2 times a day Feb 24, 2014 1 spray in each nare MetFORMIN HCl ER [facility] [address]-34 1000 mg Orally Once a day 1 tablet with evening meal ProAir RespiClick [facility] [address]-19 108 (90 Base) MCG/ACT Inhalation every 4 hrs December 31, 2015 1 puff as needed Levocetirizine Dihydrochloride [facility] 69950527696 5 MG TAKE ONE TABLET BY MOUTH TWICE DAILY PredniSONE [facility] [address]-51 20 mg Orally Once a day December 31, 2015 3 tablet Zoloft [facility] [address]-08 50 MG Orally Once a day 1 tablet pantoprazole [facility] 0 40 mg September 04, 2012 1 tablet by Oral route 2 times per day Levothyroxine Sodium [facility] 79966923958 100 MCG Orally Once a day 1 tablet Xopenex HFA [facility] [address]-27 45 mcg/actuation Apr 24, 2012 2 puffs by Inhalation route every 4-6 hoursPRN Concerta [facility] [address]-52 54 MG Orally Once a day Jul 22, 2015 1 tablet in the morning Ibuprofen [facility] [address]-29 800 MG Orally Three times a day 1 tablet Xyzal [facility] [address]-34 5 mg Mar 06, 2013 1 tablet by Oral route 2 times per day Symbicort [facility] [address]-14 160-4.5 MCG/ACT Inhalation Twice a day 2 puffs Procedures Procedure Coding System Code Date BITEWINGS - FOUR FILMS CPT-4 D0274 Feb 18, 2016 PROPHYLAXIS - ADULT CPT-4 D1110 Feb 18, 2016 PERIODIC ORAL EXAMINATION CPT-4 D0120 Feb 18, 2016 [employer] Employee/Board adjustment CPT-4 [facility]EM Feb 18, 2016 Billing Notes on claim CPT-4 EC109 Feb 18, 2016 Vital Signs Date/Time: Feb 18, 2016 Blood Pressure Diastolic 85 mmHg Blood Pressure Systolic 125 mmHg Results No Known Results Summary Purpose eClinicalWorks Submission
--- OUTSIDE RECORDS SUMMARY | 2018-07-18 08:11 | XMS REPORT ---
Author Author MIRTHA OJEDA [facility] [place] eClinicalWorks Address Unknown Phone Unavailable Care Team Providers Care Hand Box Coverer Name Role Phone MIRTHA OJEDA CP Unavailable Allergies No Known Allergies Problems Problem Type Condition ICD-9 Code Onset Dates Condition Status Problem Nonspecific abnormal electrocardiogram (ECG) (EKG) 794.31 Active Problem PPV23 (PNEUMOVAX) DX V03.82 Active Problem MMR DX V06.4 Active Assessment Dental examination V72.2 Active Problem Asthma, unspecified, with (acute) exacerbation 493.92 Active Problem Need for prophylactic vaccination with tetanus toxoid alone V03.7 Active Problem Palpitations 785.1 Active Problem Allergic rhinitis due to pollen 477.0 Active Problem Urinary frequency 788.41 Active Problem Other and unspecified hyperlipidemia 272.4 Active Problem Polycystic ovaries 256.4 Active Medications No Known Medications Procedures Procedure Coding System Code Date BITEWINGS - FOUR FILMS CPT-4 D0274 Feb 13, 2015 PROPHYLAXIS - ADULT CPT-4 D1110 Feb 13, 2015 PERIODIC ORAL EXAMINATION CPT-4 D0120 Feb 13, 2015 Billing Notes on claim CPT-4 EC109 Feb 13, 2015 [employer] Employee/Board adjustment CPT-4 [facility] Feb 13, 2015 Results No Known Results Summary Purpose eClinicalWorks Submission
--- OUTSIDE RECORDS SUMMARY | 2018-07-18 08:11 | XMS REPORT ---
Author Author SAGAR NAVA [employer] Address Unknown Phone Unavailable Care Team Providers Care [place] Worker Name Role Phone SAGAR NAVA CP Unavailable Allergies, Adverse Reactions, Alerts Substance Reaction Event Type Zithromax Info Not Available Drug Allergy Ceftin Info Not Available Drug Allergy Morphine Patient is a fast metabolizer and medication is not effective Drug Allergy FLUORIDE VARNISH Info Not Available Non Drug Allergy [place] Info Not Available Non Drug Allergy Soybeans [...] Uncomplicated severe persistent asthma J45.50 Active Problem Encounter for dental examination Z01.20 Active Problem Allergic rhinitis due to pollen J30.1 Active Problem Asthma exacerbation J45.901 Active Problem Gastroesophageal reflux disease without esophagitis K21.9 Active Problem PCOS (polycystic ovarian syndrome) E28.2 Active Problem ADD (attention deficit disorder) F90.0 Active Problem Acquired hypothyroidism E03.9 Active Assessment Community acquired pneumonia J18.9 Active Assessment Fatigue, unspecified type R53.83 Active Assessment Asthma exacerbation J45.901 Active Problem Vitamin D deficiency E55.9 Active Medications Medication Code System Code Instructions Start Date End Date Status Dosage Singulair [facility] [address]-09 10 mg Apr 26, 2012 take 1 tablet by Oral route 1 time per day pantoprazole ND 0 40 mg September 04, 2012 1 tablet by Oral route 2 times per day Ibuprofen [facility] [address]-42 800 MG Orally Three times a day 1 tablet Xyzal [facility] [address]-50 5 mg Mar 06, 2013 1 tablet by Oral route 2 times per day Zoloft [facility] [address]-58 50 MG Orally Once a day 1 tablet Levofloxacin [facility] [address]-93 500 MG Orally Once a day Feb 19, 2016 Mar 04, 2016 1 tablet Concerta [facility] [address]-51 54 MG Orally Once a day Jul 22, 2015 1 tablet in the morning Lutera [facility] [address]-09 0.1-20 MG-MCG Orally Once a day 1 tablet SudoGest [facility] 36053117970 60 MG DIRECTED Symbicort [facility] [address]-39 160-4.5 MCG/ACT Inhalation Twice a day 2 puffs Levothyroxine Sodium [facility] 25864985585 100 MCG Orally Once a day 1 tablet Nasonex [facility] [address]-21 50 mcg/actuation Nasally 2 times a day Feb 24, 2014 1 spray in each nare Zofran ODT [facility] [address]-50 8 mg Apr 03, 2013 1 tablet by Oral route every 8 hours PRN nausea or vomiting Maxalt [facility] [address]-37 10 MG Orally Once a day 1 tablet as needed one time MetFORMIN HCl ER [facility] [address]-65 1000 mg Orally Once a day 1 tablet with evening meal Xopenex HFA [facility] [address]-50 45 mcg/actuation Apr 24, 2012 2 puffs by Inhalation route every 4-6 hoursPRN Procedures Procedure Coding System Code Date CHEST X-RAY CPT-4 65129 Feb 19, 2016 Office Visit, Est Pt., Level 3 CPT-4 11520 Feb 19, 2016 HETEROPHILE ANTIBODIES CPT-4 71143 Feb 19, 2016 Vital Signs Date/Time: Feb 19, 2016 Blood Pressure Systolic 129 mmHg Cardiac Monitoring Heart Rate 80 bpm Height 68 in Blood Pressure Diastolic 83 mmHg Results No Known Results Summary Purpose [employer]Clinical[employer] Submission
--- OUTSIDE RECORDS SUMMARY | 2018-07-18 08:11 | XMS REPORT ---
Author Author BRANDY SAGAR [facility] Address [address] [place] [address] Care Team Providers Care Stripper And Opaquer Apprentice Name Role Phone BRANDYTEZ HOYTHANY Unavailable PROBLEMS Type Condition ICD9-CM Code RJI11-CE Code Onset Dates Condition Status SNOMED Code Problem Migraine with aura and without status migrainosus, not intractable G43.109 Active 0973001 Problem PCOS (polycystic ovarian syndrome) E28.2 Active 17171535 Problem Uncomplicated severe persistent asthma J45.50 Active 347141012 Problem Severe persistent asthma with exacerbation J45.51 Active 097780787 Problem Other elevated white blood cell (WBC) count D72.828 Active 426123591 Problem Multiple food allergies Z91.018 Active 912380888 Problem Pure hypercholesterolemia E78.00 Active 795953149 Problem Current chronic use of inhaled steroid Z79.51 Active 680314182 Problem Asthma exacerbation J45.901 Active 787787477 Problem ADD (attention deficit disorder) F90.0 Active 615950260 Problem Allergic rhinitis due to pollen J30.1 Active 79393584 Problem Vitamin D deficiency E55.9 Active 32400640 Problem Major depressive disorder, recurrent episode, mild F33.0 Active 887377186 Problem Acquired hypothyroidism E03.9 Active 446936139 Problem Gastroesophageal reflux disease without esophagitis K21.9 Active 905067894 ALLERGIES No Information ENCOUNTERS Encounter Location Date Diagnosis [facility] [address] [facility] [id number] [address] Aug, Haemophilus influenzae infection A49.2 [facility] [address] [address] Aug, Cough productive of purulent sputum R05 [facility] [address] [id number] [address] Aug, [facility] [address] [address]- 9[address] 08 Aug, 2017 Pulmonary congestion R09.89 [id number]- 7053 Aug, Severe persistent asthma with exacerbation J45.51 ; Hiatal hernia K44.9 and Gastroesophageal reflux disease without esophagitis K21.[address] [address]- [address] Aug, Other elevated white blood cell (WBC) count D72.[address] 18051- 5918 Aug, Uncomplicated severe persistent asthma J45.[address] 41312- 9134 Aug, Pure hypercholesterolemia E78.00 ; Uncomplicated severe persistent asthma J45.50 and Acquired hypothyroidism E03.[address] 45957- 6470 20 Aug, 2017 Acquired hypothyroidism E03.9 ; Pure hypercholesterolemia E78.00 and Uncomplicated severe persistent asthma J45.[address] 05567- 1182 15 Aug, 2017 Allergic rhinitis due to pollen J30.[address] 73703- 4659 Aug, Allergic rhinitis due to pollen J30.1 [place] [address] 23715- 4412 Aug, [place] [address] [id number] Jul, Pharyngitis, unspecified etiology J02.9 and Lymphadenopathy R59.[address] 92025- 3503 Jul, ADD (attention deficit disorder) F90.0 [place] [id number] [place] [address] 29295- 9862 Jul, Allergic rhinitis due to pollen J30.1 [place] [address] 32248- 1097 Jul, Dental examination Z01.20 [place] [address] 40881- 9685 Jun, Cough productive of purulent sputum R05 [place] [address] 16946- 8478 Jun, Allergic rhinitis due to pollen J30.1 [place] [address] 92922- 9712 Jun, [place] [address] 69457- 9209 Jun, Allergic rhinitis due to pollen J30.1 [place] [address] 23394- 1255 Jun, Allergic rhinitis due to pollen J30.1 [place] [address] [place] [id number] [place] [address] 40889- 3829 May, Allergic rhinitis due to pollen J30.1 [place] [address] [place] [id number] [place] [address] 59238- 1102 May, Pneumonia due to Haemophilus influenzae, unspecified laterality, unspecified part of lung J14 [place] [address] [place] [id number] [place] [address] 44735- 1583 May, Allergic rhinitis due to pollen J30.1 [place] [address] [place] [id number] [place] [address] 98944- 0779 May, Other adverse food reactions, not elsewhere classified, initial encounter T78.1XXA and Pneumonia due to Haemophilus influenzae, unspecified laterality, unspecified part of lung J14 [place] [address] [place] [id number] [place] [address] 20628- 9827 May, Pneumonia due to Haemophilus influenzae, unspecified laterality, unspecified part of lung J14 [place] [address] [place] [id number] [place] [address] 91544- 9549 May, Multiple food allergies Z91.018 ; Uncomplicated severe persistent asthma J45.50 ; Cough productive of purulent sputum R05 and Uses central nervous system stimulants F15.90 [place] [address] [place] [id number] [place] [address] 05258- 7222 Apr, Allergic rhinitis due to pollen J30.1 [place] [address] [place] [id number] [place] [address] 92967- 7836 Apr, Allergic rhinitis due to pollen J30.1 [place] [address] 04391- 3787 Apr, Allergic rhinitis due to pollen J30.1 [place] [address] 76651- 9229 Apr, ADD (attention deficit disorder) F90.0 [place] [address] 04371- 6163 28 Mar, 2017 Allergic rhinitis due to pollen J30.1 [place] [address] [place] [id number] [place] [address] 37651- 7007 21 Mar, 2017 Encounter for immunization Z23 [place] [address] [place] [id number] [place] [address] 07964- 2875 19 Mar, 2017 [place] [address] [place] [id number] [place] [address] 41810- 0322 14 Mar, 2017 Allergic rhinitis due to pollen J30.1 [place] [address] [place] [id number] [place] [address] 88203- 7784 07 Mar, 2017 Allergic rhinitis due to pollen J30.1 [place] [address] [place] [id number] [place] [address] 00686- 2483 16 Jan, 2017 Allergic rhinitis due to pollen J30.1 [place] [address] 69843- 7524 Jan, Allergic rhinitis due to pollen J30.1 [place] [address] [place] [address] 27541- 5496 Dec, Uncomplicated severe persistent asthma J45.50 [place] [address] [place] [id number] [place] [address] 28903- 3935 Dec, Allergic rhinitis due to pollen J30.1 [place] [address] [place] [id number] [place] [address] 40741- 3762 Dec, Allergic rhinitis due to pollen J30.1 [place] [address] [place] [id number] [place] [address] 51595- 6301 Dec, Allergic rhinitis due to pollen J30.1 [place] [address] [place] [id number] [place] [address] 76483- 9450 Dec, ADD (attention deficit disorder) F90.0 [place] [address] [place] [id number] [place] [address] 48741- 6567 Dec, Allergic rhinitis due to pollen J30.1 [place] [address] [place] [id number] [place] [address] 67075- 8471 Dec, Visit for TB skin test Z11.1 and Screening for tuberculosis Z11.1 [place] [address] [place] [id number] [place] [address] 61119- 2228 Dec, Uncomplicated severe persistent asthma J45.50 ; Palpitations R00.2 ; Pericardial effusion (noninflammatory) I31.3 and Chest discomfort R07.89 [place] [address] [place] [address] 46302- 7102 Dec, Allergic rhinitis due to pollen J30.1 [place] [address] [place] [id number] [place] [address] 64267- 5994 Dec, Chronic cough R05 [place] [address] [place] [id number] [place] [address] 14819- 9818 Dec, [place] [address] [place] [id number] [place] [address] 03157- 0974 15 Dec, 2016 Allergic rhinitis due to pollen J30.1 [place] [address] [place] [id number] [place] [address] 47402- 8223 Dec, Allergic rhinitis due to pollen J30.1 [place] [address] [place] [id number] [place] [address] 04549- 2992 Dec, Chronic cough R05 [place] [address] 86385- 4970 October, Allergic rhinitis due to pollen J30.1 [place] [address] 91636- 2931 October, Allergic rhinitis due to pollen J30.1 [place] [address] [place] [id number] [place] [address] 60699- 1247 October, [place] [address] 75567- 0113 October, Asthma exacerbation J45.901 [place] [address] [place] [id number] [place] [address] 43257- 5768 October, Asthma exacerbation J45.901 and Current chronic use of inhaled steroid Z79.51 [place] [address] [place] [id number] [place] [address] 36310- 2806 October, Uncomplicated severe persistent asthma J45.50 [place] [address] [place] [id number] [place] [address] 35045- 2216 October, Allergic rhinitis due to pollen J30.1 [place] [address] [place] [id number] [place] [address] 48935- 3022 Oct, [place] [address] [place] [id number] [place] [address] 06928- 2916 Oct, Asthma exacerbation J45.901 and Sputum production R05 [place] [address] [place] [id number] [place] [address] 39069- 1056 Oct, Asthma exacerbation J45.901 [place] [address] [place] [id number] [place] [address] 23445- 2490 Oct, ADD (attention deficit disorder) F90.0 [place] [address] [place] [id number] [place] [address] 14982- 8799 Oct, ADD (attention deficit disorder) F90.0 [place] [address] 81172- 4214 Aug, Allergic rhinitis due to pollen J30.1 [place] [address] 82179- 9258 Aug, Atypical pneumonia J18.9 [place] [address] 81485- 2114 Aug, Allergic rhinitis due to pollen J30.1 [place] [address] 12363- 0368 Aug, Acquired hypothyroidism E03.9 [place] [address] 01563- 6585 Aug, Multiple food allergies Z91.018 ; Elevated blood pressure reading R03.0 and Anaphylaxis, subsequent encounter T78.2XXD [place] [address] [place] [id number] [place] [address] [id number] Aug, [place] [address] 18077- 8906 Aug, Anaphylaxis, initial encounter T78.2XXA [address] 68716- 1489 Aug, Allergic rhinitis due to pollen J30.1 [place] [address] [place] [id number] [place] [address] 94327- 9795 Aug, Dental examination Z01.[address] 82925- 4254 Aug, Allergic rhinitis due to pollen J30.1 [facility] [address] [place] [address] 54045- 9879 06 Aug, 2016 Acquired hypothyroidism E03.9 and Pure hypercholesterolemia E78.00 [facility] [address] [place] [id number] [place] [address] 19747- 7946 Aug, ADD (attention deficit disorder) F90.0 ; Acquired hypothyroidism E03.9 and Pure hypercholesterolemia E78.00 [facility] [address] [place] [id number] [place] [address] 33417- 6501 Aug, Asthma exacerbation J45.901 [place] [address] 22993- 5500 Jul, Allergic rhinitis due to pollen J30.1 [facility] [address] [place] [id number] [place] [address] 08652- 6119 Jul, Allergic rhinitis due to pollen J30.1 [facility] [address] [place] [id number] [place] [address] 03268- 3088 Jul, [facility] [address] [place] [id number] [place] [address] 78964- 1677 Jul, Allergic rhinitis due to pollen J30.1 [facility] [address] [place] [id number] [place] [address] 14035- 8443 Jul, Other senior care (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 and ADD ( attention deficit disorder) F90.0 [facility] [address] [place] [address] 03299- 4830 Jul, Other terminal operator (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 and ADD ( attention deficit disorder) F90.0 [facility] [address] [place] [id number] [place] [address] 89460- 1525 Jul, [facility] [address] [place] [id number] [place] [address] 36256- 6763 Jun, Allergic rhinitis due to pollen J30.1 [facility] [address] [id number] [place] [address] 81469- 5164 Jun, Allergic rhinitis due to pollen J30.1 [facility] [address] [place] [id number] [place] [address] 04519- 3237 Jun, [place] [address] [place] [id number] [place] [address] 49915- 4199 May, Allergic rhinitis due to pollen J30.1 [facility] [address] [place] [id number] [place] [address] 58435- 4136 May, Allergic rhinitis due to pollen J30.1 [place] [address] [place] [id number] [place] [address] 07470- 7484 Apr, Allergic rhinitis due to pollen J30.1 [place] [address] [place] [id number] [place] [address] 92496- 5596 Apr, Allergic rhinitis due to pollen J30.1 [place] [address] 76254- 0230 Apr, Encounter for immunization Z23 [place] [address] 36245- 4816 Apr, [place] [address] [place] [id number] [place] [address] 85161- 3564 Mar, Allergic rhinitis due to pollen J30.1 [place] [address] [place] [id number] [place] [address] 61397- 7698 Mar, Multiple allergies Z88.9 [place] [address] [place] [id number] [place] [address] 08179- 0516 Mar, Candidal vaginitis B37.3 [place] [address] [place] [id number] [place] [address] 31740- 7392 08 Mar, 2016 Allergic rhinitis due to pollen J30.1 [place] [address] [place] [id number] [place] [address] 55342- 2271 Jan, Asthma exacerbation J45.901 ; Fatigue, unspecified type R53.83 and Community acquired pneumonia J18.9 [facility] [address] [address] Jan, Encounter for dental examination Z01.20 [facility] [address], [place] [address]- 8585 Jan, Allergic rhinitis due to pollen J30.1 [facility] [address] [place] [address] 71922- 9381 Dec, Allergic rhinitis due to pollen J30.1 [facility] [address], [place] [address]- 2363 Dec, [facility] [address] [place] [id number] [place] [address] 93973- 1540 Dec, Allergic rhinitis due to pollen J30.1 [facility] [address], [place] [address]- 1434 Dec, [facility] [address], [place] [address]- 1181 Dec, [facility] [address] [place] [address] 62180- 7537 Dec, [facility] [address], [place] [address]- 3606 Dec, Allergic rhinitis due to pollen J30.1 [facility] [address], [place] [address]- 8903 Dec, [facility] [address] [address]- 3669 Dec, [facility] [address] [place] [id number] [place] [address] 95242- 5112 Dec, Allergic rhinitis due to pollen J30.1 [facility] [address], [place] [address]- 0418 October, Allergic rhinitis due to pollen J30.1 [facility] [address] [id number] [address]- 7227 October, Allergic rhinitis due to pollen J30.1 [facility] [address] [place] [id number] [place] [address] 06331- 4415 October, [facility] [address] [place] [id number] [place] [address] 17236- 8090 October, [place] [address] [place] [id number] [place] [address] 46373- 9572 October, ADD (attention deficit disorder) F90.0 ; Major depressive disorder, recurrent episode, mild F33.0 and Uncomplicated severe persistent asthma J45.50 [place] [address] [place] [id number] [place] [address] 25263- 4966 Oct, Allergic rhinitis due to pollen J30.1 [place] [address] [place] [id number] [place] [address] 72214- 6449 Oct, ADD (attention deficit disorder) F90.0 [place] [address] [place] [id number] [place] [address] 81685- 8973 Oct, Allergic rhinitis due to pollen 477.0 [place] [address] [place] [id number] [place] [address] 19372- 7993 Aug, Allergic rhinitis due to pollen 477.0 [place] [address] [place] [address] 01213- 2364 Aug, 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 [place] [address] [place] [id number] [place] [address] 07175- 6316 Aug, [place] [address] [place] [id number] [place] [address] 71852- 3451 Aug, Allergic rhinitis due to pollen 477.0 [place] [address] [place] [address] 65663- 2632 Aug, Allergic rhinitis due to pollen 477.0 [place] [address] [place] [id number] [place] [address] 94311- 0048 Aug, Allergic rhinitis due to pollen 477.0 [facility] [id number] [place] [address] 67329- 5391 Aug, Exposure to influenza Z20.828 [facility] [address] [place] [address] [id number] 19 Aug, 2015 Encounter for dental examination and cleaning without abnormal findings Z01.20 [place] [address] [place] [id number] [place] [address] 05464- 9646 Aug, Allergic rhinitis due to pollen J30.1 [place] [address] 98852- 0777 Aug, [place] [address] 81768- 1629 Aug, 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 [place] [address] 08893- 5153 Jul, [place] [address] 15101- 2471 Jul, Allergic rhinitis due to pollen 477.0 [place] [address] [place] [id number] [place] [address] 91254- 5555 Jul, [place] [address] [place] [id number] [place] [address] 16299- 4910 Jul, Allergic rhinitis due to pollen 477.0 [place] [address] [place] [id number] [place] [address] 79070- 9541 Jun, ADD (attention deficit disorder) F90.0 ; Acquired hypothyroidism E03.9 ; PCOS (polycystic ovarian syndrome) E28.2 ; Polyarthralgia M25.50 and On stimulant medication Z79.899 [place] [address] [place] [id number] [place] [address] 50513- 1070 16 Apr, 2015 Encounter for immunization Z23 [place] [address] 25737- 3529 16 Mar, 2015 Allergic rhinitis due to pollen 477.0 [facility] [address] [place] [address] 37228- 6327 Mar, Influenza vaccine administered V04.81 [facility] [id number] [place] [address] 50753- 3918 Mar, [facility] [address] [place] [id number] [place] [address] 04537- 5521 Jan, Allergic rhinitis due to pollen 477.0 [facility] [address] [place] [id number] [place] [address] 35613- 6302 Jan, Allergic rhinitis due to pollen 477.0 [facility] [address] [place] [id number] [place] [address] 71664- 7155 Jan, Allergic rhinitis due to pollen 477.0 [facility] [address] [place] [id number] [place] [address] [id number] Jan, Dental examination V72.2 [facility] [address] [place] [id number] [place] [address] 29697- 2908 Dec, Allergic rhinitis due to pollen 477.0 [facility] [id number] [place] [address] 09162- 4381 October, [facility] [id number] [place] [address] 11904- 5817 Oct, [facility] [address] [place] [id number] [place] [address] 38323- 2049 Oct, [facility] [id number] [place] [address] 50904- 2820 Aug, [facility] [address] [place] [id number] [place] [address] 04549- 1633 Aug, [facility] [address] [address]- 8732 Aug, [facility] [address] [place] [id number] [place] [address]- 5379 Aug, [facility] [place] [facility] [address] [id number] [place] [address]- 0884 Aug, [facility] [place] [facility] [address] [id number] [place] [address]- 4710 Aug, [facility] [place] [facility] [address] [id number] [place] [address]- 6756 Aug, [facility] [place] [facility] [address] [id number] [place] [address]- 6138 Aug, [facility] [place] [facility] [address] [id number] [place] [address]- 0398 Jul, [facility] [place] [facility] [address] [id number] [place] [address]- 6870 Jul, [facility] [place] [facility] [address] [facility] [id number] [place] [address]- 1618 Jul, [facility] [place] [facility] [address] [id number] [place] [address]- 6984 Jul, [facility] [place] [facility] [address] [facility] [id number] [place] [address]- 2038 Jul, [facility] [place] [facility] [address] [facility] [id number] [place] [address]- 6015 Jul, [facility] [place] [facility] [address] [id number] [place] [address]- 1661 Jul, [facility] [place] [facility] [address] [id number] [place] [address]- 4895 Jul, [facility] [place] [facility] [address] [id number] [place] [address]- 2773 Jul, [facility] [place] [facility] [address] [id number] [place] [address]- 6043 Jul, [facility] [place] [facility] [address] [id number] [place] [address]- 5891 Jul, [facility] [place] [facility] [address] [id number] [place] [address]- 8952 Jun, [facility] [place] [facility] [address] [id number] [place] 1960 Jun, [facility] [place] [facility] [address] [id number] [place] 3680 Jun, [facility] [place] [facility] [address] [id number] [place] [address]- 2789 Jun, [facility] [place] [facility] [address] [id number] [place] 9240 Jun, [facility] [place] [facility] [address] [id number] [place] [address]- 6042 Jun, [facility] [place] [facility] [address] [id number] [place] [address]- 6853 May, [facility] [place] [facility] [address] [id number] [place] [address]- 7358 May, [facility] [place] [facility] [address] [id number] [place] [address]- 1647 May, [facility] [place] [facility] [address] [id number] [place] [address]- 6294 May, [facility] [place] [facility] [address] [id number], [place] [address]- 9296 May, [facility] [place] [facility] [address] [id number], [place] [address] May, [facility] [place] [facility] [address] [id number] [place] [address] [address] Apr, [facility] [place] [facility] [address] [id number] [place] [address] Apr, [facility] [place] [facility] [address] [id number], [place] [address] Mar, [facility] [place] [facility] [address] [id number], [place] [address] Mar, [facility] [place] [facility] [address] [id number] [place] [address] Mar, [facility] [place] [facility] [address] [id number] [place] [address] Mar, [facility] [place] [facility] [address] [id number] [place] [address] Mar, [facility] [place] [facility] [address] [id number] [place] [address] Mar, [facility] [place] [facility] [address] [id number] [place] [address] Jan, [facility] [place] [facility] [address] [id number] [place] [address] Jan, [facility] [place] [facility] [address] [id number] [place] [address] Jan, [facility] [place] [facility] [address] [id number] [place] [address] Jan, [facility] [place] [facility] [address] [id number] [place] [address] Jan, [facility] [place] [facility] [address] [id number] [place] [address] Jan, [facility] [place] [facility] [address] [id number] [place] [address] Dec, [facility] [place] [facility] [address] [id number] [place] [address] Dec, [facility] [place] [facility] [address] [id number] [place] [address] Dec, [facility] [place] [facility] [address] [id number] [place] [address] Dec, [facility] [place] [facility] [address] [id number] [place] [address] Dec, [facility] [place] [facility] [address] [id number] [place] [address] Dec, [facility] [place] [facility] [address] [id number] [place] [address] Dec, [facility] [place] [facility] [address] [id number] [place] [address] Dec, [facility] [place] [facility] [address] [id number] [place] [address]- 9548 Dec, [facility] [place] [facility] [address] [id number] [place] [address] Dec, [facility] [place] [facility] [address] [id number] [place] [address] Dec, [facility] [place] [facility] [address] [id number] [place] [address] 9[address] Dec, [facility] [place] [facility] [address] [id number] [place] [address] Dec, [facility] [place] [facility] [address] [id number] [place] [address]757 Dec, [facility] [place] [facility] [address] [id number] [place] [address] 1758 Dec, [facility] [place] [facility] [address] [id number] [place] [address] Dec, [facility] [place] [facility] [address] [id number] [place] [address] 8[address] October, [facility] [place] [facility] [address] [id number] [place] [address] 0836 October, [facility] [place] [facility] [address] [id number] [place] [address] 1475 October, [facility] [place] [facility] [address] [id number] [place] [address] October, [facility] [place] [facility] [address] [id number] [place] [address] 8595 October, [facility] [place] [facility] [address] [id number] [place] [address] 0760 October, [facility] [place] [facility] [address] [id number] [place] [address] 4374 Oct, [facility] [place] [facility] [address] [id number] [place] [address] 4550 Oct, [facility] [place] [facility] [address] [id number] [place] [address] 9015 Oct, [facility] [place] [facility] [address] [id number] [place] [address]- 5233 Oct, [facility] [place] [facility] [address] [id number] [place] [address] 3805 Oct, [facility] [place] [facility] [address] [id number] [place] [address]- 7477 Oct, [facility] [place] [facility] [address] [id number] [place] [address] 7409 Aug, [facility] [place] [facility] [address] [id number] [place] [address] 8[address] Aug, [facility] [place] [facility] [address] [id number] [place] [address] 2873 Aug, [facility] [place] [facility] [address] [id number] [place] [address] 7680 Aug, [facility] [place] [facility] [address] [id number], [place] [address] Jul, [facility] [place] [facility] [address] [id number] [place] [address] 1098 Jul, [facility] [place] [facility] [address] [id number] [place] [address]- 2716 Jul, [facility] [place] [facility] [address] [id number] [place] [address] 1263 Jul, [facility] [place] [facility] [address] [id number] [place] [address] 2839 Jun, [facility] [address] [id number] [place] [address]- 5[address] Jun, [facility] [place] [facility] [address] [id number] [place] [address] Jun, [facility] [address] [id number] [place] [address]- 4263 Jun, [facility] [place] [facility] [address] [id number] [place] [address] 3419 Jun, [facility] [address] [id number] [place] [address] 8171 Jun, [facility] [address] [id number] [place] [address] 4665 Jun, [facility] [address] [id number] [place] [address] Jun, [facility] [address] [id number] [place] [address] 0615 Jun, [facility] [place] [facility] [address] [id number] [place] [address] 0[address] Jun, [facility] [address] [facility] [id number] [place] [address] 04 Jun, 2013 [facility] [place] [facility] [address] [id number] [place] [address] 9940 May, [facility] [place] [facility] [address] [id number] [place] [address]- 3895 May, [facility] [place] [facility] [address] [id number] [place] [address] 9353 May, [facility] [place] [facility] [address] [id number] [place] [address] May, [facility] [place] [facility] [address] [id number] [place] [address]- 9030 May, [facility] [place] [facility] [address] [id number] [place] [address] 7255 May, [facility] [place] [facility] [address] [id number] [place] [address] May, [facility] [place] [facility] [address] [id number] [place] [address] 3192 Apr, [facility] [place] [facility] [address] [id number] [place] [address] 6718 Apr, [facility] [place] [facility] [address] [id number] [place] [address]- 5965 Apr, [facility] [place] [facility] [address] [id number] [place] [address]- 1779 Apr, [facility] [place] [facility] [address] [id number] [place] [address]- 1640 27 Mar, 2013 [facility] [place] [facility] [address] [id number] [place] [address] 9373 Mar, [facility] [place] [facility] [address] [id number] [place] [address]- 3957 Mar, [facility] [place] [facility] [address] [id number] [place] [address]- 4372 23 Mar, 2013 [facility] [place] [facility] [address] [id number] [place] [address] 9754 Mar, [facility] [place] [facility] [address] [id number] [place] [address]- 1734 Mar, [facility] [place] [facility] [address] [id number] [place] [address] 8434 Jan, [facility] [place] [facility] [address] [id number] [place] [address] 6879 Jan, [facility] [place] [facility] [address] [id number] [place] [address] 8732 Jan, [facility] [place] [facility] [address] [id number] [place] [address]- 5945 Jan, [facility] [address] [id number] [place] [address] Jan, [facility] [place] [facility] [address] [id number] [place] [address]- 8368 Dec, [facility] [place] [facility] [address] [id number] [place] [address]- 2839 Dec, [facility] [place] [facility] [address] [id number] [place] [address]- 9506 Dec, [facility] [place] [facility] [address] [id number] [place] [address] Dec, [facility] [place] [facility] [address] [id number] [place] [address]- 6297 Dec, [facility] [place] [facility] [address] [id number] [place] [address]- 2447 Dec, [facility] [place] [facility] [address] [id number] [place] [address]- 3889 Dec, [facility] [place] [facility] [address] [id number] [place] [address]- 7618 Dec, [facility] [place] [facility] [address] [id number] [place] [address] 9250 October, [facility] [place] [facility] [address] [id number] [place] [address]- 5459 October, [facility] [place] [facility] [address] [id number] [place] [address]- 2544 October, [facility] [place] [facility] [address] [id number] [place] [address] 24 Oct, 2012 [facility] [place] [facility] [address] [id number] [place] [address] Oct, [facility] [place] [facility] [address] [id number] [place] [address] 17 Oct, 2012 [facility] [place] [facility] [address] [id number] [place] [address]- 8605 Oct, [facility] [place] [facility] [address] [id number] [place] [address]- 4004 Aug, [facility] [place] [facility] [address] [id number] [place] [address]- 2406 Aug, [facility] [place] [facility] [address] [id number] [place] [address]- 1176 Aug, [facility] [place] [facility] [address] [id number] [place] [address]- 1159 Jul, [facility] [place] [facility] [address] [id number] [place] [address]- 1774 May, [facility] [place] [facility] [address] [id number] [place] [address]- 2959 May, [facility] [place] [facility] [address] [id number] [place] [address]- 5665 Apr, [facility] [address] [id number] [place] [address]- 7552 Apr, [facility] [place] [facility] [address] [id number] [place] [address]- 8220 Apr, [facility] [address] [id number] [place] [address]- 9244 Apr, [facility] [place] [facility] [address] [id number] [place] [address]- 7914 Apr, [facility] [place] [facility] [address] [id number] [place] [address]- 8399 Apr, [facility] [place] [facility] [address] [id number] [place] [address] Apr, [facility] [place] [facility] [address] [id number] [place] [address]- 4859 Apr, [facility] [place] [facility] [address] [id number] [place] [address]- 2216 Apr, [facility] [place] [facility] [address] [id number] [place] [address]- 8930 Apr, [facility] [place] [facility] [address] [id number] [place] [address]- 3941 Apr, [facility] [place] [facility] [address] [id number] [place] [address]- 0956 Apr, [facility] [place] [facility] [address] [id number] [place] [address]- 3141 Mar, [facility] [place] [facility] [address] [id number] [place] [address]- 0349 Jan, [facility] [place] [facility] [address] [id number] [place] [address]- 6860 Dec, [facility] [place] [facility] [address] [id number] [place] [address]- 4777 October, [facility] [place] [facility] [address] [id number] [place] [address]- 6147 Oct, [facility] [place] [facility] [address] [id number] [place] [address]- 7603 Oct, [facility] [place] [facility] [address] [id number] [place] [address]- 4638 Oct, [facility] [place] [facility] [address] [id number] [place] [address]- 2051 Aug, [facility] [place] [facility] [address] [id number] [place] [address]- 6840 Aug, [facility] [place] [facility] [address] [id number] [place] [address]- 4870 Aug, [facility] [place] [facility] [address] [id number] [place] [address]- 4146 16 Aug, 2011 [facility] [place] [facility] [address] [id number] [place] [address]- 9340 15 Aug, 2011 [facility] [place] [facility] [address] [id number], [place] [address]386 Aug, [facility] [id number], [place] [address] 384[address] Jun, [facility] [id number], [place] [address] 5560 Apr, [facility] [id number], [place] [address]- 5849 Jun, [facility] [id number], [place] [address] 2322 Jun, [facility] [id number], [place] [address]- 6512 May, [facility] [id number], [place] [address]- 2704 May, [facility] [id number] [address]23 Apr, [facility] [address] [id number], [place] [address] 1753 Apr, IMMUNIZATIONS No Known Immunizations SOCIAL HISTORY Never Assessed REASON FOR VISIT TB SKIN TEST PLAN OF CARE Activity Details Follow Up 48-72 hours Reason: VITAL SIGNS MEDICATIONS Unknown Medications RESULTS No Results PROCEDURES Procedure Date Ordered Result Body Site TB INTRADERMAL TEST January 02, 2017 INSTRUCTIONS MEDICATIONS ADMINISTERED No Known [...] History see above surgeries Hospitalization History Anaphylactic shock-[facility] 08/23/16
--- OUTSIDE RECORDS SUMMARY | 2018-07-18 08:11 | XMS REPORT ---
Author Author BRANDY SAGAR [facility] Address [address] [place] [address] Care Team Providers Care Lna Name Role Phone BRANDYTEZ HOYTHANY Unavailable PROBLEMS Type Condition ICD9-CM Code [id number] Code Onset Dates Condition Status SNOMED Code Problem ADD (attention deficit disorder) F90.0 Active 904713462 Problem Major depressive disorder, recurrent episode, mild F33.0 Active 772667835 Problem Allergic rhinitis due to pollen J30.1 Active 26645369 Problem Current chronic use of inhaled steroid Z79.51 Active 672042999 Problem Asthma exacerbation J45.901 Active 891227070 Problem Pure hypercholesterolemia E78.00 Active 793663606 Problem PCOS (polycystic ovarian syndrome) E28.2 Active 15844881 Problem Multiple food allergies Z91.018 Active 706968803 Problem Dental examination Z01.20 Active 170722731 Problem Uncomplicated severe persistent asthma J45.50 Active 200253502 Problem Gastroesophageal reflux disease without esophagitis K21.9 Active 430863799 Problem Migraine with aura and without status migrainosus, not intractable G43.109 Active 5255656 Problem Vitamin D deficiency E55.9 Active 14661331 Problem Acquired hypothyroidism E03.9 Active 543957636 ALLERGIES No Information SOCIAL HISTORY Never Assessed PLAN OF CARE VITAL SIGNS MEDICATIONS Unknown Medications RESULTS Name Result Date Reference Range IMMUNOGLOBULIN E, IgE 2016-11-09 Immunoglobulin E, Total 46 0-100 CBC w/ MANUAL DIFF 2016-11-09 WBC 11.6 3.4-10.8 RBC 4.77 3.77-5.28 Hemoglobin 12.5 11.1-15.9 Hematocrit 38.9 34.0-46.6 MCV 82 79-97 MCH 26.2 26.6-33.0 MCHC 32.1 31.5-35.7 RDW 16.7 12.3-15.4 Platelets 385 150-379 Neutrophils 81 Lymphs 17 Monocytes 2 Eos 0 Basos 0 Neutrophils Absolute 9.4 1.4-7.0 Lymphs (Absolute) 2.0 0.7-3.1 Monocytes(Absolute) 0.2 0.1-0.9 Eos (Absolute Value) 0.0 0.0-0.4 Baso(Absolute) 0.0 0.0-0.2 Differential Comment Note: RBC Comment Note: Normal Platelet Comment Note: Adequate PROCEDURES Procedure Date Ordered Result Body Site MANUAL CELL COUNT, EACH November 09, 2016 ASSAY OF GAMMAGLOBULIN IGE November 09, 2016 VENIPUNCT, ROUTINE* November 09, 2016 IMMUNIZATIONS No Known Immunizations [...] History see above surgeries Hospitalization History Anaphylactic [facility] 08/23/16
--- OUTSIDE RECORDS SUMMARY | 2018-07-18 08:11 | XMS REPORT ---
Author Author BRANDY SAGAR Organization [facility] Address [address] [place] [address] Care Team Providers Care Meat Carver Name Role Phone SAGAR NAVA Unavailable PROBLEMS Type Condition ICD9-CM Code [id number] Code Onset Dates Condition Status SNOMED Code Problem ADD (attention deficit disorder) F90.0 Active 586740035 Problem Major depressive disorder, recurrent episode, mild F33.0 Active 512514712 Problem Allergic rhinitis due to pollen J30.1 Active 32760234 Problem Current chronic use of inhaled steroid Z79.51 Active 836122660 Problem Asthma exacerbation J45.901 Active 434179409 Problem Pure hypercholesterolemia E78.00 Active 025974816 Problem PCOS (polycystic ovarian syndrome) E28.2 Active 79642494 Problem Multiple food allergies Z91.018 Active 457096619 Problem Dental examination Z01.20 Active 857187463 Problem Uncomplicated severe persistent asthma J45.50 Active 301459570 Problem Gastroesophageal reflux disease without esophagitis K21.9 Active 265461622 Problem Migraine with aura and without status migrainosus, not intractable G43.109 Active 7127189 Problem Vitamin D deficiency E55.9 Active 26069995 Problem Acquired hypothyroidism E03.9 Active 287071630 ALLERGIES No Information SOCIAL HISTORY Never Assessed PLAN OF CARE VITAL SIGNS MEDICATIONS Unknown Medications RESULTS No Results PROCEDURES Procedure Date Ordered Result Body Site IMMUNOTHERAPY INJECTIONS Jul 28, 2016 IMMUNIZATIONS No Known Immunizations MEDICAL (GENERAL) [...] see above surgeries Hospitalization History Anaphylactic shock-[facility] 08/23/16
--- OUTSIDE RECORDS SUMMARY | 2018-07-18 08:12 | XMS REPORT ---
Author Author BRANDY SAGAR [facility] Address [address] [place] [address] Care Team Providers Care Surgeon Partner Name Role Phone SAGAR NAVA Unavailable PROBLEMS Type Condition ICD9-CM Code WXB07-NA Code Onset Dates Condition Status SNOMED Code Problem Migraine with aura and without status migrainosus, not intractable G43.109 Active 2930882 Problem PCOS (polycystic ovarian syndrome) E28.2 Active 37084903 Problem Uncomplicated severe persistent asthma J45.50 Active 004172957 Problem Severe persistent asthma with exacerbation J45.51 Active 237229698 Problem Other elevated white blood cell (WBC) count D72.828 Active 653258150 Problem Multiple food allergies Z91.018 Active 905719459 Problem Pure hypercholesterolemia E78.00 Active 880795632 Problem Current chronic use of inhaled steroid Z79.51 Active 600178807 Problem Asthma exacerbation J45.901 Active 752940626 Problem ADD (attention deficit disorder) F90.0 Active 846568858 Problem Allergic rhinitis due to pollen J30.1 Active 34741220 Problem Vitamin D deficiency E55.9 Active 99989786 Problem Major depressive disorder, recurrent episode, mild F33.0 Active 869357663 Problem Acquired hypothyroidism E03.9 Active 494580095 Problem Gastroesophageal reflux disease without esophagitis K21.9 Active 994063234 ALLERGIES No Information ENCOUNTERS Encounter Location Date Diagnosis [facility] [id number] [address] Dec, [facility] [id number] [address] Oct, [facility] [address], [place] [address] Oct, Allergic rhinitis due to pollen J30.1 [facility] [address] [place] [address] 58526- 5624 Oct, [facility] [id number] [place] [address] 66033- 2393 Oct, Allergic rhinitis due to pollen J30.1 [facility] [address] 06660- 8396 13 Oct, 2017 Severe persistent asthma with exacerbation J45.51 and Pneumonia due to Haemophilus influenzae, unspecified laterality, unspecified part of lung J14 [facility] [id number] [place] [address] 98618- 5618 Oct, ADD (attention deficit disorder) F90.[address] 35390- 8672 Aug, Haemophilus influenzae infection A49.[address] 17598- 4205 Aug, Cough productive of purulent sputum R05 [facility] [address] 91136- 8639 Aug, [address] 26081- 3104 Aug, Pulmonary congestion R09.[address] 22266- 0158 Aug, Severe persistent asthma with exacerbation J45.51 ; Hiatal hernia K44.9 and Gastroesophageal reflux disease without esophagitis K21.9 [facility] [id number] [place] [address] 08231- 8749 Aug, Other elevated white blood cell (WBC) count D72.[address] 43470- 0913 Aug, Uncomplicated severe persistent asthma J45.[address] 16607- 2741 Aug, Pure hypercholesterolemia E78.00 ; Uncomplicated severe persistent asthma J45.50 and Acquired hypothyroidism E03.9 [facility] [address] 85712- 6310 Aug, Acquired hypothyroidism E03.9 ; Pure hypercholesterolemia E78.00 and Uncomplicated severe persistent asthma J45.50 [facility] [address] 70119- 0677 15 Aug, 2017 Allergic rhinitis due to pollen J30.1 [facility] [address] 90734- 8043 Aug, Allergic rhinitis due to pollen J30.1 [facility] [address] 64398- 0079 Aug, [place] [address] [id number] Jul, Pharyngitis, unspecified etiology J02.9 and Lymphadenopathy R59.1 [facility] [place] [address] 88058- 8872 Jul, ADD (attention deficit disorder) F90.[address] 92124- 3512 Jul, Allergic rhinitis due to pollen J30.1 [facility] [place] [address] 27940- 0180 Jul, Dental examination Z01.20 [facility] [address] 23769- 9640 Jun, Cough productive of purulent sputum R05 [facility] [address] 42918- 8232 Jun, Allergic rhinitis due to pollen J30.1 [facility] [address] 23962- 5346 Jun, [facility] [address] 11005- 5039 Jun, Allergic rhinitis due to pollen J30.1 [facility] [address], [place] [address] 4032 Jun, Allergic rhinitis due to pollen J30.1 [facility] [address] [place] [address] 72137- 8474 May, Allergic rhinitis due to pollen J30.1 [facility] [id number] [place] [address] 09082- 8045 May, Pneumonia due to Haemophilus influenzae, unspecified laterality, unspecified part of lung J14 [facility] [id number] [place] [address] 74844- 1095 May, Allergic rhinitis due to pollen J30.1 [facility] [id number] [place] [address] 01916- 7874 May, Other adverse food reactions, not elsewhere classified, initial encounter T78.1XXA and Pneumonia due to Haemophilus influenzae, unspecified laterality, unspecified part of lung J14 [facility] [id number] [place] [address] 07594- 9716 May, Pneumonia due to Haemophilus influenzae, unspecified laterality, unspecified part of lung J14 [facility] [id number] [place] [address] 83018- 6764 May, Multiple food allergies Z91.018 ; Uncomplicated severe persistent asthma J45.50 ; Cough productive of purulent sputum R05 and Uses central nervous system stimulants F15.90 [facility] [address] [place] [address] 57212- 2569 Apr, Allergic rhinitis due to pollen J30.1 [facility] [id number] [place] [address] 75563- 4755 Apr, Allergic rhinitis due to pollen J30.1 [facility] [id number] [place] [address] 32112- 6074 Apr, Allergic rhinitis due to pollen J30.1 [facility] [id number] [place] [address] 60723- 2386 Apr, ADD (attention deficit disorder) F90.0 [facility] [address] 31288- 9912 28 Mar, 2017 Allergic rhinitis due to pollen J30.1 [place] [address] 71066- 8755 21 Mar, 2017 Encounter for immunization Z23 [place] [address] 94666- 1032 19 Mar, 2017 [place] [address] 90859- 5051 14 Mar, 2017 Allergic rhinitis due to pollen J30.1 [facility] [address] 03727- 3523 07 Mar, 2017 Allergic rhinitis due to pollen J30.1 [facility] [address] 38792- 8361 Jan, Allergic rhinitis due to pollen J30.1 [facility] [id number] [place] [address] 56243- 9120 Jan, Allergic rhinitis due to pollen J30.1 [facility] [id number] [place] [address] 98029- 0743 Dec, Uncomplicated severe persistent asthma J45.50 [facility] [id number] [place] [address] 51099- 3931 Dec, Allergic rhinitis due to pollen J30.1 [facility] [id number] [place] [address] 66024- 6779 Dec, Allergic rhinitis due to pollen J30.1 [facility] [id number] [place] [address] 93579- 2592 Dec, Allergic rhinitis due to pollen J30.1 [facility] [id number] [place] [address] 77531- 4775 13 David, 2017 ADD (attention deficit disorder) F90.0 [facility] [place] [address] [place] [address] 23365- 7117 Dec, Allergic rhinitis due to pollen J30.1 [facility] [id number] [place] [address] 95397- 0320 Dec, Screening for tuberculosis Z11.1 and Visit for TB skin test Z11.1 [facility] [place] [address] 62209- 6779 Dec, Uncomplicated severe persistent asthma J45.50 ; Palpitations R00.2 ; Pericardial effusion (noninflammatory) I31.3 and Chest discomfort R07.89 [facility] [id number] [place] [address] 16714- 2456 Dec, Allergic rhinitis due to pollen J30.1 [facility] [id number] [place] [address] 77292- 6780 Dec, Chronic cough R05 [facility] [place] [id number] [place] [address] 03968- 9901 Dec, [facility] [id number] [place] [address] 59143- 9818 Dec, Allergic rhinitis due to pollen J30.1 [facility] [id number] [place] [address] 09416- 4949 Dec, Allergic rhinitis due to pollen J30.1 [facility] [id number] [place] [address] 98671- 8684 Dec, Chronic cough R05 [facility] [id number] [place] [address] 89088- 8606 October, Allergic rhinitis due to pollen J30.1 [facility] [id number] [place] [address] 18911- 4078 October, Allergic rhinitis due to pollen J30.1 [facility] [id number] [place] [address] 52156- 8776 October, [facility] [address] [place] [address] 91957- 9507 October, Asthma exacerbation J45.901 [facility] [id number] [place] [address] 17573- 2491 October, Asthma exacerbation J45.901 and Current chronic use of inhaled steroid Z79.51 [facility] [address] 91964- 5323 October, Uncomplicated severe persistent asthma J45.50 [facility] [id number] [place] [address] 15774- 2958 October, Allergic rhinitis due to pollen J30.1 [facility] [id number] [place] [address] 63555- 4090 Oct, [facility] [place] [address] 57725- 9050 Oct, Asthma exacerbation J45.901 and Sputum production R05 [facility] [id number] [place] [address] 91668- 0884 Oct, Asthma exacerbation J45.901 [facility] [id number] [place] [address] 28950- 9060 Oct, ADD (attention deficit disorder) F90.0 [facility] [id number] [place] [address] 50529- 2544 Oct, ADD (attention deficit disorder) F90.0 [facility] [id number] [place] [address] 82552- 5446 Aug, Allergic rhinitis due to pollen J30.1 [facility] [id number] [place] [address] 69024- 5524 Aug, Atypical pneumonia J18.9 [facility] [id number] [place] [address] 58682- 4155 Aug, Allergic rhinitis due to pollen J30.1 [facility] [address] 73900- 0677 Aug, Acquired hypothyroidism E03.9 [facility] [address] 31598- 3497 Aug, Multiple food allergies Z91.018 ; Elevated blood pressure reading R03.0 and Anaphylaxis, subsequent encounter T78.2XXD [address] [id number] Aug, [place] [address] 14850- 5110 Aug, Anaphylaxis, initial encounter T78.2XXA [address] 96925- 6129 Aug, Allergic rhinitis due to pollen J30.[address] 78496- 6836 Aug, Dental examination Z01.20 [facility] [address] 94162- 3151 Aug, Allergic rhinitis due to pollen J30.1 [facility] [address] 97902- 7827 Aug, Acquired hypothyroidism E03.9 and Pure hypercholesterolemia E78.[address] 41031- 6359 Aug, ADD (attention deficit disorder) F90.0 ; Acquired hypothyroidism E03.9 and Pure hypercholesterolemia E78.00 [place] [address] 79022- 7050 Aug, Asthma exacerbation J45.901 [facility] [place] [address] 41825- 1285 Jul, Allergic rhinitis due to pollen J30.1 [facility] [address] 48167- 0508 Jul, Allergic rhinitis due to pollen J30.1 [facility] [address], [place] [address]- 9450 Jul, [facility] [address] [place] [address] 55280- 3732 Jul, Allergic rhinitis due to pollen J30.1 [facility] [address] [place] [address] 25655- 9716 Jul, Other penitentiary (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 and ADD ( attention deficit disorder) F90.0 [facility] [id number] [place] [address] 56590- 3273 Jul, Other penitentiary (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 and ADD ( attention deficit disorder) F90.0 [facility] [id number] [place] [address] 29535- 6702 Jul, [facility] [id number] [place] [address] 76193- 0954 Jun, Allergic rhinitis due to pollen J30.1 [facility] [id number] [place] [address] 77565- 6553 Jun, Allergic rhinitis due to pollen J30.1 [facility] [address] [place] [address] 10801- 7733 Jun, [facility] [id number] [place] [address] 13797- 0735 May, Allergic rhinitis due to pollen J30.1 [facility] [address], [place] [address]- 7732 May, Allergic rhinitis due to pollen J30.1 [facility] [id number] [place] [address] 50599- 1752 Apr, Allergic rhinitis due to pollen J30.1 [facility] [address] [place] [address] 44138- 0494 Apr, Allergic rhinitis due to pollen J30.1 [facility] [address] [place] [address] 97038- 6089 Apr, Encounter for immunization Z23 [facility] [id number] [place] [address] 30018- 0959 Apr, [facility] [id number] [place] [address] 32445- 3387 Mar, Allergic rhinitis due to pollen J30.1 [facility] [id number] [place] [address] 76524- 0150 Mar, Multiple allergies Z88.9 [facility] [id number] [place] [address] 34225- 9956 Mar, Candidal vaginitis B37.3 [facility] [id number] [place] [address] 83184- 0631 Mar, Allergic rhinitis due to pollen J30.1 [facility] [id number] [place] [address] 86551- 1221 Jan, Asthma exacerbation J45.901 ; Fatigue, unspecified type R53.83 and Community acquired pneumonia J18.9 [facility] [address] [place] [address] [id number] Jan, Encounter for dental examination Z01.20 [facility] [address] [place] [address] 61099- 4953 Jan, Allergic rhinitis due to pollen J30.1 [facility] [address] [place] [address] 77314- 2076 Dec, Allergic rhinitis due to pollen J30.1 [facility] [id number] [place] [address] 85969- 7106 Dec, [facility] [id number] [place] [address] 37116- 3143 Dec, Allergic rhinitis due to pollen J30.1 [facility] [id number] [address]- 9823 Dec, [facility] [id number] [place] [address] 18038- 8255 Dec, [facility] [address], [place] [address]- 7093 Dec, [facility] [address] [place] [address] 70277- 5888 Dec, Allergic rhinitis due to pollen J30.1 [facility] [address] [place] [address] 61775- 2428 Dec, [facility] [id number] [place] [address] 31902- 5523 Dec, [facility] [id number] [place] [address] 49674- 1987 Dec, Allergic rhinitis due to pollen J30.1 [facility] [id number] [place] [address] 64341- 4646 October, Allergic rhinitis due to pollen J30.1 [facility] [address] [place] [address] 45312- 7957 October, Allergic rhinitis due to pollen J30.1 [facility] [address] [place] [address] 57082- 0567 October, [facility] [address] [place] [address] 33145- 8013 October, [facility] [address] [place] [address] 31821- 5948 October, ADD (attention deficit disorder) F90.0 ; Major depressive disorder, recurrent episode, mild F33.0 and Uncomplicated severe persistent asthma J45.50 [facility] [address] [address]- 9812 Oct, Allergic rhinitis due to pollen J30.1 [facility] [id number] [place] [address] 12376- 6753 Oct, ADD (attention deficit disorder) F90.0 [facility] [id number] [place] [address] 23694- 9898 Oct, Allergic rhinitis due to pollen 477.0 [facility] [id number] [place] [address] 09207- 1194 Aug, Allergic rhinitis due to pollen 477.0 [facility] [id number] [place] [address] 83001- 2209 Aug, 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 [facility] [id number] [place] [address] 71064- 5616 Aug, [facility] [id number] [place] [address] 09947- 0905 Aug, Allergic rhinitis due to pollen 477.0 [facility] [id number] [place] [address] 90155- 2708 Aug, Allergic rhinitis due to pollen 477.0 [facility] [id number] [place] [address] 72073- 5391 Aug, Allergic rhinitis due to pollen 477.0 [facility] [id number] [place] [address] 08411- 8194 Aug, Exposure to influenza Z20.828 [facility] [id number] [place] [address] [id number] Aug, Encounter for dental examination and cleaning without abnormal findings Z01.20 [facility] [id number] [place] [address] 70428- 2553 Aug, Allergic rhinitis due to pollen J30.1 [facility] [id number] [place] [address] 07238- 6084 Aug, [facility] [id number] [place] [address] 02455- 3196 Aug, 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 [facility] [id number] [place] [address] 73376- 5053 Jul, [facility] [address] 98593- 2025 Jul, Allergic rhinitis due to pollen 477.0 [facility] [address] 34408- 0663 Jul, [facility] [address] 79990- 2661 Jul, Allergic rhinitis due to pollen 477.0 [facility] [address] 32099- 9050 Jun, ADD (attention deficit disorder) F90.0 ; Acquired hypothyroidism E03.9 ; PCOS (polycystic ovarian syndrome) E28.2 ; Polyarthralgia M25.50 and On stimulant medication Z79.899 [facility] [address] 94928- 0286 Apr, Encounter for immunization Z23 [address] 66743- 1603 16 Mar, 2015 Allergic rhinitis due to pollen 477.0 [facility] [id number] [place] [address] 37437- 3597 Mar, Influenza vaccine administered V04.81 [facility] [facility] [address] 78607- 0058 Mar, [facility] [place] [address] 71344- 6762 Jan, Allergic rhinitis due to pollen 477.0 [facility] [address] 29734- 4867 Jan, Allergic rhinitis due to pollen 477.0 [place] [address] 29965- 3112 Jan, Allergic rhinitis due to pollen 477.0 [facility] [address] [id number] [id number] 14 Jan, 2015 Dental examination V72.2 [facility] [address] [address]- 9435 Dec, Allergic rhinitis due to pollen 477.0 [facility] [address], [place] [address]- 5925 October, [facility] [address] [address]- 5837 Oct, [facility] [address] [address]- 4608 Oct, [facility] [address], [place] [address]- 2554 Aug, [facility] [address] [address]- 9774 Aug, [facility] [address] [address]- 8527 Aug, [facility] [address] [address]- 9890 Aug, [facility] [address] [address]- 9675 Aug, [facility] [address] [address]- 6935 Aug, [facility] [address] [address]- 0416 Aug, [facility] [address] [address]- 1150 Aug, [facility] [address] 1900 Jul, [facility] [address] [address]- 5800 Jul, [facility] [place] [facility] [address] [id number] [place] [address]- 5384 10 Jul, 2014 [facility] [place] [facility] [address] [id number] [place] [address]- 8404 Jul, [facility] [place] [facility] [address] [id number] [place] [address]- 7946 Jul, [facility] [place] [facility] [address] [id number] [place] [address]- 3516 Jul, [facility] [place] [facility] [address] [id number] [place] [address]- 8390 Jul, [facility] [place] [facility] [address] [id number] [place] [address]- 8647 Jul, [facility] [place] [facility] [address] [id number] [place] [address]- 6574 Jul, [facility] [place] [facility] [address] [id number] [place] [address] Jul, [facility] [place] [facility] [address] [id number] [place] [address] Jul, [facility] [place] [facility] [address] [id number] [place] [address] Jun, [facility] [place] [facility] [address] [id number] [place] [address] Jun, [facility] [place] [facility] [address] [id number] [place] [address] Jun, [facility] [place] [facility] [address] [id number] [place] [address] Jun, [facility] [place] [facility] [address] [id number] [place] [address] Jun, [facility] [place] [facility] [address] [id number] [place] [address] Jun, [facility] [place] [facility] [address] [id number] [place] [address] May, [facility] [place] [facility] [address] [id number] [place] [address] May, [facility] [place] [facility] [address] [id number] [place] [address] May, [facility] [place] [facility] [address] [id number] [place] [address] May, [facility] [place] [facility] [address] [id number] [place] [address] May, [facility] [place] [facility] [address] [id number] [place] [address] May, [facility] [place] [facility] [address] [id number] [place] [address] Apr, [facility] [place] [facility] [address] [id number] [place] [address] Apr, [facility] [place] [facility] [address] [id number] [place] [address] 30 Mar, 2014 [facility] [place] [facility] [address] [id number] [place] [address] 30 Mar, 2014 [facility] [place] [facility] [address] [id number] [place] [address] 30 Mar, 2014 [facility] [place] [facility] [address] [id number] [place] [address] 30 Mar, 2014 [facility] [place] [facility] [address] [id number], [place] [address] Mar, [facility] [place] [facility] [address] [id number] [place] [address] Mar, [facility] [place] [facility] [address] [id number] [place] [address] Jan, [facility] [place] [facility] [address] [id number] [place] [address] Jan, [facility] [place] [facility] [address] [id number] [place] [address] Jan, [facility] [facility] [address] [id number] [place] [address] Jan, [facility] [place] [facility] [address] [id number] [place] [address] Jan, [facility] [place] [facility] [address] [id number] [place] [address] Jan, [facility] [place] [facility] [address] [id number] [place] [address] Dec, [facility] [place] [facility] [address] [id number] [place] [address] Dec, [facility] [place] [facility] [address] [id number] [place] [address] Dec, [facility] [place] [facility] [address] [id number] [place] [address] Dec, [facility] [place] [facility] [address] [id number] [place] [address] Dec, [facility] [place] [facility] [address] [id number] [place] [address] Dec, [facility] [place] [facility] [address] [id number] [place] [address] 1416 Dec, [facility] [place] [facility] [address] [id number] [place] [address] 8[address] Dec, [facility] [place] [facility] [address] [id number] [place] [address] 2842 Dec, [facility] [place] [facility] [address] [id number] [place] [address] 49[address] Dec, [facility] [place] [facility] [address] [id number] [place] [address] 9872 Dec, [facility] [place] [facility] [address] [id number] [place] [address] 2425 Dec, [facility] [place] [facility] [address] [id number] [place] [address] 3820 Dec, [facility] [place] [facility] [address] [id number] [place] [address] 1755 Dec, [facility] [place] [facility] [address] [id number] [place] [address] 7243 Dec, [facility] [place] [facility] [address] [id number] [place] [address] 7324 Dec, [facility] [place] [facility] [address] [id number] [place] [address] October, [facility] [place] [facility] [address] [id number] [place] [address] October, [facility] [facility] [address] [id number] [place] [address] 7598 October, [facility] [place] [facility] [address] [id number] [place] [address] 8[address] October, [facility] [facility] [address] [id number] [place] [address] 8679 October, [facility] [facility] [address] [id number] [place] [address] 8030 October, [facility] [place] [facility] [address] [id number] [place] [address]- 8065 Oct, [facility] [place] [facility] [address] [id number] [place] [address] 6040 Oct, [facility] [place] [address] [id number] [place] [address] 9125 Oct, [facility] [place] [facility] [address] [id number] [place] [address] 1663 Oct, [facility] [place] [address] [id number] [place] [address] 6596 Oct, [facility] [address] [id number], [place] [address] Oct, [facility] [address] [id number] [place] [address] 1154 Aug, [facility] [facility] [address] [id number] [place] [address] Aug, [facility] [address] [id number] [place] [address] 9980 Aug, [facility] [address] [id number] [place] [address] 6978 Aug, [facility] [address] [id number] [place] [address] 5993 Jul, [facility] [address] [id number] [place] [address] 4431 Jul, [facility] [address] [id number] [place] [address] 4515 Jul, [facility] [address] [id number] [place] [address] 295[address] Jul, [facility] [address] [id number] [place] [address] 7983 Jun, [facility] [address] [id number] [place] [address]120 31 Jun, 2013 [facility] [address] [id number] [place] [address] 4926 24 Jun, 2013 [facility] [address] [id number] [place] [address] 04[address] 24 Jun, 2013 [facility] [address] [id number] [place] [address] 20 Jun, 2013 [facility] [address] [id number] [place] [address] 18 Jun, 2013 [facility] [address] [id number] [place] [address] 18 Jun, 2013 [facility] [address] [id number] [place] [address] 9212 Jun, [facility] [address] [id number] [place] [address] 8428 Jun, [facility] [address] [id number] [place] [address] 4253 Jun, [facility] [address] [id number] [place] [address]- 8675 Jun, [facility] [address] [id number] [place] [address] 0105 May, [facility] [address] [id number] [place] [address] 8509 May, [facility] [address] [id number] [place] [address] 0204 May, [facility] [address] [id number] [place] [address]- 2457 May, [facility] [address] [id number] [place] [address] 5476 May, [facility] [address] [id number] [place] [address] 1365 May, [facility] [address] [id number] [place] [address] 2940 May, [facility] [address] [id number] [place] [address] 7257 Apr, [facility] [address] [id number] [place] [address]- 0175 Apr, [facility] [address] [id number] [place] [address] 4264 Apr, [facility] [address] [id number] [place] [address] 2546 Apr, [facility] [address] [id number] [place] [address] 8390 Mar, [facility] [address] [id number] [place] [address] 1754 Mar, 2012 [facility] [address] [id number] [place] [address] 2622 Mar, [facility] [address] [id number] [place] [address] 4768 Mar, 2012 [facility] [address] [id number] [place] [address] 4712 Mar, [facility] [address] [id number] [place] [address]- 6200 Mar, [facility] [address] [id number] [place] [address] 8733 Jan, [facility] [address] [id number] [place] [address]- 4646 Jan, [facility] [address] [id number] [place] [address]- 7036 Jan, [facility] [address] [id number] [place] [address]- 3301 Jan, [facility] [address] [id number] [place] [address]- 5723 Jan, [facility] [address] [id number] [place] [address]- 5999 Dec, [facility] [address] [id number] [place] [address]- 0036 Dec, [facility] [address] [id number] [place] [address]- 0863 Dec, [facility] [address] [id number] [place] [address]- 8349 Dec, [facility] [address] [id number] [place] [address]- 3923 Dec, [facility] [address] [id number] [place] [address]- 8222 Dec, [facility] [address] [id number] [place] [address]- 8761 Dec, [facility] [address] [id number] [place] [address]- 9509 Dec, [facility] [address] [id number] [place] [address]- 3127 October, [facility] [address] [id number] [place] [address]- 1084 October, [facility] [address] [id number] [place] [address]- 3054 October, [facility] [address] [id number] [place] [address]- 0179 Oct, [facility] [address] [id number] [place] [address]- 1904 Oct, [facility] [address] [id number] [place] [address]- 4428 Oct, [facility] [address] [id number] [place] [address]- 5444 Oct, [facility] [address] [id number] [place] [address]- 4653 Aug, [facility] [address] [id number] [place] [address]- 7368 Aug, [facility] [address] [id number] [place] [address]- 7300 05 Aug, 2012 [facility] [address] [id number] [place] [address]- 9292 Jul, [facility] [address] [id number] [place] [address]- 9583 May, [facility] [address] [id number] [place] [address]- 8266 May, [facility] [address] [id number] [place] [address]- 4009 Apr, [facility] [address] [id number] [place] [address]- 1196 Apr, [facility] [address] [id number] [place] [address]- 1946 Apr, [facility] [address] [id number] [place] [address]- 7713 Apr, [facility] [address] [id number] [place] [address]- 7576 Apr, [facility] [address] [id number] [place] [address]- 0041 Apr, [facility] [address] [id number] [place] [address]- 4087 Apr, [facility] [address] [id number] [place] [address]- 2110 Apr, [facility] [address] [id number] [place] [address]- 4716 Apr, [facility] [address] [id number] [place] [address]- 7688 Apr, [facility] [address] [id number] [place] [address]- 0204 Apr, [facility] [address] [id number] [place] [address]- 5884 Apr, [facility] [address] [id number] [place] [address]- 6993 Mar, [facility] [address] [id number] [place] [address]- 3476 Jan, [facility] [address] [id number] [place] [address] 2546 Dec, [facility] [address] [id number] [place] [address]- 5030 October, [facility] [address] [id number] [place] [address]- 8913 Oct, [facility] [address] [id number] [place] [address]- 9496 Oct, [facility] [address] [id number] [place] [address]- 9749 Oct, [facility] [address] [id number] [place] [address]- 3742 Aug, [facility] [address] [id number] [place] [address]- 1731 Aug, [facility] [address] [id number] [place] [address]- 1427 29 Aug, 2011 [facility] [address] [id number] [place] [address]- 7454 16 Aug, 2011 [facility] [address] [id number] [place] [address]- 5320 15 Aug, 2011 [facility] [address] [id number] [place] [address]- 6639 Aug, [facility] [address] [id number] [place] [address]- 4223 Jun, [facility] [address] [id number] [place] [address]- 3174 Apr, [facility] [address] [id number] [place] [address]- 6893 Jun, [facility] [address] [id number] [place] [address]- 0074 Jun, [facility] [address] [facility] [id number] [place] [address]- 7068 May, [facility] [address] [id number] [place] [address]- 8368 May, [facility] [address] [facility] [id number] [place] [address]- 8182 15 Apr, 2009 [facility] [address] [facility] [id number] [place] [address]- 8182 13 Apr, 2009 IMMUNIZATIONS Vaccine Route Administration Date Status FLUARIX QUAD (3 AND UP) 2016 IM Intramuscular Mar 23, 2017 Administered SOCIAL HISTORY Never Assessed REASON FOR VISIT Flu shot patricia keith PLAN OF CARE VITAL SIGNS MEDICATIONS Unknown Medications RESULTS No Results PROCEDURES Procedure Date Ordered Result Body Site FLUARIX QUAD (3 & UP)-GSK-2015 Mar 23, 2017 SINGLE IMMUNIZATION ADMIN Mar 23, 2017 INSTRUCTIONS MEDICATIONS ADMINISTERED No Known [...]
--- OUTSIDE RECORDS SUMMARY | 2018-07-18 08:12 | XMS REPORT ---
Author Author SAGAR NAVA [employer] Address Unknown Phone Unavailable Care Team Providers Care Manager Reimbursement Name Role Phone SAGAR NAVA Unavailable Allergies [...] End Date Status Dosage MetFORMIN HCl ER [facility] [address]-68 500 MG Orally Once a day 1 tablet with evening meal Maxalt [facility] [address]-84 10 MG Orally Once a day 1 tablet as needed one time Concerta [facility] [address]-24 36 MG Orally Once a day Jul 22, 2015 1 tablet in the morning pantoprazole ND 0 40 mg September 04, 2012 1 tablet by Oral route 2 times per day Symbicort [facility] [address]-45 160-4.5 MCG/ACT Inhalation Twice a day 2 puffs Zoloft [facility] [address]-44 50 MG Orally Once a day 1 tablet Nasonex [facility] [address]-07 50 mcg/actuation Nasally 2 times a day Feb 24, 2014 1 spray in each nare Levothyroxine Sodium [facility] 30282023584 100 MCG Orally Once a day 1 tablet Singulair [facility] [address]-35 10 mg Apr 26, 2012 take 1 tablet by Oral route 1 time per day Xyzal [facility] [address]-06 5 mg Mar 06, 2013 1 tablet by Oral route 2 times per day Xopenex HFA [facility] [address]-61 45 mcg/actuation Apr 24, 2012 2 puffs by Inhalation route every 4-6 hoursPRN Ibuprofen [facility] [address]-02 800 MG Orally Three times a day 1 tablet Results No Known Results Summary Purpose eClinicalWorks Submission
--- OUTSIDE RECORDS SUMMARY | 2018-07-18 08:13 | XMS REPORT ---
Author Author SAGAR NAVA [employer] Address Unknown Phone Unavailable Care Team Providers Care Tire Service Supervisor Name Role Phone SAGAR NAVA CP Unavailable [...] Coding System Code Date IMMUNOTHERAPY INJECTIONS CPT-4 02100 Feb 04, 2016 Results No Known Results Summary Purpose eClinicalWorks Submission
--- OUTSIDE RECORDS SUMMARY | 2018-07-18 08:14 | XMS REPORT ---
Author Author BRANDY SAGAR [facility] Address [address] [place] [address] Care Team Providers Care Trackman Name Role Phone TEZ NAVAHANY Unavailable PROBLEMS Type Condition ICD9-CM Code MHM06-FK Code Onset Dates Condition Status SNOMED Code Problem Migraine with aura and without status migrainosus, not intractable G43.109 Active 9823309 Problem PCOS (polycystic ovarian syndrome) E28.2 Active 67738910 Problem Uncomplicated severe persistent asthma J45.50 Active 467716780 Problem Severe persistent asthma with exacerbation J45.51 Active 338565834 Problem Other elevated white blood cell (WBC) count D72.828 Active 719371205 Problem Multiple food allergies Z91.018 Active 122449564 Problem Pure hypercholesterolemia E78.00 Active 235359185 Problem Current chronic use of inhaled steroid Z79.51 Active 673057208 Problem Asthma exacerbation J45.901 Active 905360961 Problem ADD (attention deficit disorder) F90.0 Active 961585636 Problem Allergic rhinitis due to pollen J30.1 Active 64320794 Problem Vitamin D deficiency E55.9 Active 01361787 Problem Major depressive disorder, recurrent episode, mild F33.0 Active 011156845 Problem Acquired hypothyroidism E03.9 Active 452285255 Problem Gastroesophageal reflux disease without esophagitis K21.9 Active 350769007 ALLERGIES No Information ENCOUNTERS Encounter Location Date Diagnosis [facility] [address] [address] Dec, [facility] [id number] [place] [address] 38218- 2766 October, Allergic rhinitis due to pollen J30.1 [facility] [address], [place] [address] October, Allergic rhinitis due to pollen J30.1 [facility] [id number] [place] [address] 38560- 9704 Oct, [place] [address] 12378- 4012 Oct, Allergic rhinitis due to pollen J30.1 [place] [id number] [place] [address] 98965- 1839 Oct, [place] [address] 83176- 3992 Oct, Allergic rhinitis due to pollen J30.1 [place] [id number] [place] [address] 58714- 9688 Oct, Severe persistent asthma with exacerbation J45.51 and Pneumonia due to Haemophilus influenzae, unspecified laterality, unspecified part of lung J14 [place] [id number] [place] [address] 35166- 2898 Oct, ADD (attention deficit disorder) F90.0 [place] [id number] [place] [address] 79069- 8484 Aug, Haemophilus influenzae infection A49.2 [place] [address] 71665- 3990 Aug, Cough productive of purulent sputum R05 [place] [id number] [place] [address] 29713- 7525 Aug, [place] [id number] [place] [address] 45539- 6942 Aug, Pulmonary congestion R09.89 [place] [id number] [place] [address] 28014- 2022 Aug, Severe persistent asthma with exacerbation J45.51 ; Hiatal hernia K44.9 and Gastroesophageal reflux disease without esophagitis K21.9 [place] [id number] [place] [address] 61214- 8628 Aug, Other elevated white blood cell (WBC) count D72.828 [place] [address] 43650- 8815 Aug, Uncomplicated severe persistent asthma J45.50 [facility] [address] [id number]- 5885 Aug, Pure hypercholesterolemia E78.00 ; Uncomplicated severe persistent asthma J45.50 and Acquired hypothyroidism E03.9 [facility] [address] 71582- 1628 Aug, Acquired hypothyroidism E03.9 ; Pure hypercholesterolemia E78.00 and Uncomplicated severe persistent asthma J45.50 [place] [address] 871524- 4529 15 Aug, 2017 Allergic rhinitis due to pollen J30.1 [place] [address] 62568- 1319 Aug, Allergic rhinitis due to pollen J30.1 [place] [address] 61165- 9616 Aug, [facility] [address] [id number] Jul, Pharyngitis, unspecified etiology J02.9 and Lymphadenopathy R59.1 [place] [address] 36420- 4327 Jul, ADD (attention deficit disorder) F90.0 [place] [address] 64714- 6855 Jul, Allergic rhinitis due to pollen J30.1 [place] [address] 94160- 6229 Jul, Dental examination Z01.20 [facility] [address] 17807- 9556 Jun, Cough productive of purulent sputum R05 [place] [address] 31874- 9552 Jun, Allergic rhinitis due to pollen J30.1 [place] [address] [place] [address] 21291- 4232 Jun, [place] [id number] [place] [address] 71083- 7254 Jun, Allergic rhinitis due to pollen J30.1 [place] [id number] [place] [address] 24558- 1499 Jun, Allergic rhinitis due to pollen J30.1 [place] [id number] [place] [address] 06756- 9519 May, Allergic rhinitis due to pollen J30.1 [place] [id number] [place] [address] 25163- 3167 May, Pneumonia due to Haemophilus influenzae, unspecified laterality, unspecified part of lung J14 [place] [address] 99926- 1635 May, Allergic rhinitis due to pollen J30.1 [place] [id number] [place] [address] 80474- 4567 May, Other adverse food reactions, not elsewhere classified, initial encounter T78.1XXA and Pneumonia due to Haemophilus influenzae, unspecified laterality, unspecified part of lung J14 [place] [id number] [place] [address] 33527- 3659 May, Pneumonia due to Haemophilus influenzae, unspecified laterality, unspecified part of lung J14 [place] [address] [place] [address] 37066- 8022 May, Multiple food allergies Z91.018 ; Uncomplicated severe persistent asthma J45.50 ; Cough productive of purulent sputum R05 and Uses central nervous system stimulants F15.90 [place] [id number] [place] [address] 67417- 2799 Apr, Allergic rhinitis due to pollen J30.1 [place] [address] 11802- 5483 Apr, Allergic rhinitis due to pollen J30.1 [place] [address] 75916- 9782 Apr, Allergic rhinitis due to pollen J30.1 [place] [address] 37136- 2157 11 Apr, 2017 ADD (attention deficit disorder) F90.0 [place] [address] 90343- 2697 28 Mar, 2017 Allergic rhinitis due to pollen J30.1 [place] [address] 59548- 7055 21 Mar, 2017 Encounter for immunization Z23 [place] [address] 07715- 1083 19 Mar, 2017 [place] [address] 18890- 6720 14 Mar, 2017 Allergic rhinitis due to pollen J30.1 [place] [address] 77193- 8744 07 Mar, 2017 Allergic rhinitis due to pollen J30.1 [place] [address] 44205- 2221 Jan, Allergic rhinitis due to pollen J30.1 [place] [address] 46855- 8689 Jan, Allergic rhinitis due to pollen J30.1 [place] [address] 58925- 5122 Dec, Uncomplicated severe persistent asthma J45.50 [place] [address] 82214- 2522 Dec, Allergic rhinitis due to pollen J30.1 [place] [address] 13205- 2629 Dec, Allergic rhinitis due to pollen J30.1 [place] [address], [place] [address] 7122 Dec, Allergic rhinitis due to pollen J30.1 [place] [id number] [place] [address] 99299- 3567 Dec, ADD (attention deficit disorder) F90.0 [place] [id number] [place] [address] 90885- 2847 Dec, Allergic rhinitis due to pollen J30.1 [place] [id number] [place] [address] 65688- 1255 Dec, Visit for TB skin test Z11.1 and Screening for tuberculosis Z11.1 [place] [id number] [place] [address] 26623- 1900 Dec, Uncomplicated severe persistent asthma J45.50 ; Palpitations R00.2 ; Pericardial effusion (noninflammatory) I31.3 and Chest discomfort R07.89 [place] [id number] [place] [address] 40114- 1820 Dec, Allergic rhinitis due to pollen J30.1 [place] [id number] [place] [address] 02326- 4693 Dec, Chronic cough R05 [place] [id number] [place] [address] 56423- 5732 Dec, [place] [address] [place] [address] 49647- 8132 Dec, Allergic rhinitis due to pollen J30.1 [place] [id number] [place] [address] 05176- 5771 Dec, Allergic rhinitis due to pollen J30.1 [place] [address] [place] [address] 98030- 3116 Dec, Chronic cough R05 [place] [id number] [place] [address] 24100- 1065 October, Allergic rhinitis due to pollen J30.1 [facility] [id number] [place] [address] 89402- 5245 October, Allergic rhinitis due to pollen J30.1 [facility] [id number] [place] [address] 08596- 0438 October, [place] [address] 67952- 7246 October, Asthma exacerbation J45.901 [place] [address] [place] [address] 52565- 1768 October, Asthma exacerbation J45.901 and Current chronic use of inhaled steroid Z79.51 [place] [address] [place] [address] 02878- 6127 October, Uncomplicated severe persistent asthma J45.50 [place] [address] [place] [address] 10210- 8077 October, Allergic rhinitis due to pollen J30.1 [place] [address] [place] [address] 95719- 1237 Oct, [place] [address] [place] [address] 03366- 2068 Oct, Asthma exacerbation J45.901 and Sputum production R05 [place] [address] [place] [address] 28380- 0402 Oct, Asthma exacerbation J45.901 [place] [address] [place] [address] 22781- 8398 Oct, ADD (attention deficit disorder) F90.0 [place] [address] 17940- 4064 Oct, ADD (attention deficit disorder) F90.0 [place] [address] [place] [address] 90886- 4517 Aug, Allergic rhinitis due to pollen J30.1 [place] [id number] [place] [address] 33530- 4497 Aug, Atypical pneumonia J18.9 [place] [address] 83652- 7372 Aug, Allergic rhinitis due to pollen J30.1 [place] [address] 32628- 5916 Aug, Acquired hypothyroidism E03.9 [place] [address] 48749- 9597 Aug, Multiple food allergies Z91.018 ; Elevated blood pressure reading R03.0 and Anaphylaxis, subsequent encounter T78.2XXD [place] [address] [place] [id number] Aug, [address] 19369- 2122 Aug, Anaphylaxis, initial encounter T78.2XXA [place] [address] 56748- 8897 Aug, Allergic rhinitis due to pollen J30.1 [place] [address] 02524- 9157 Aug, Dental examination Z01.[address] 94643- 9905 Aug, Allergic rhinitis due to pollen J30.1 [place] [address] 35425- 5308 Aug, Acquired hypothyroidism E03.9 and Pure hypercholesterolemia E78.[address] 37684- 6465 Aug, ADD (attention deficit disorder) F90.0 ; Acquired hypothyroidism E03.9 and Pure hypercholesterolemia E78.00 [place] [address] 22534- 9594 Aug, Asthma exacerbation J45.901 [facility] [id number] [place] [address] 73690- 4378 Jul, Allergic rhinitis due to pollen J30.1 [facility] [address] [place] [address] 84765- 0182 Jul, Allergic rhinitis due to pollen J30.1 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 [address] [place] [address] 88174- 4578 Jun, Allergic rhinitis due to pollen J30.1 [facility] [address] [place] [address] 04154- 8957 Jun, [place] [id number] [place] [address] 63090- 3660 May, Allergic rhinitis due to pollen J30.1 [place] [address] [place] [address] 77817- 8081 May, Allergic rhinitis due to pollen J30.1 [place] [id number] [place] [address] 56919- 8983 Apr, Allergic rhinitis due to pollen J30.1 [place] [id number] [place] [address] 53594- 3741 Apr, Allergic rhinitis due to pollen J30.1 [place] [address] 07372- 4996 Apr, Encounter for immunization Z23 [place] [address] 41923- 1780 Apr, [place] [address] 71528- 4584 Mar, Allergic rhinitis due to pollen J30.1 [place] [id number] [place] [address] 19284- 4696 Mar, Multiple allergies Z88.9 [place] [address] 91565- 3990 Mar, Candidal vaginitis B37.3 [place] [address] 65338- 1035 Mar, Allergic rhinitis due to pollen J30.1 [place] [id number] [place] [address] 23663- 4112 Jan, Asthma exacerbation J45.901 ; Fatigue, unspecified type R53.83 and Community acquired pneumonia J18.9 [facility] [id number] [place] [address] [id number] Jan, Encounter for dental examination Z01.20 [place] [address] 06776- 5315 Jan, Allergic rhinitis due to pollen J30.1 [place] [id number] [place] [address] 41817- 7589 Dec, Allergic rhinitis due to pollen J30.1 [place] [address] [facility] [id number] [address]- 5818 Dec, [facility] [address] [facility] [id number], [place] [address]- 2294 Dec, Allergic rhinitis due to pollen J30.1 [facility] [address] [facility] [id number], [place] [address]- 1099 Dec, [facility] [address] [facility] [id number], [place] [address]- 5039 Dec, [facility] [address] [facility] [id number], [place] [address]- 0046 Dec, [facility] [address] [facility] [id number], [place] [address]- 8997 Dec, Allergic rhinitis due to pollen J30.1 [facility] [address], [place] [address]- 2885 Dec, [facility] [id number], [place] [address]- 7950 Dec, [facility] [address], [place] [address]- 3218 Dec, Allergic rhinitis due to pollen J30.1 [facility] [id number] [address]- 0544 October, Allergic rhinitis due to pollen J30.1 [facility] [id number], [place] [address]- 7099 October, Allergic rhinitis due to pollen J30.1 [facility] [address] [facility] [id number], [place] [address]- 8945 October, [facility] [id number], [place] [address]- 2639 October, [facility] [id number], [place] [address]- 6195 October, ADD (attention deficit disorder) F90.0 ; Major depressive disorder, recurrent episode, mild F33.0 and Uncomplicated severe persistent asthma J45.50 [place] [id number] [place] [address] 49816- 3833 Oct, Allergic rhinitis due to pollen J30.1 [place] [id number] [place] [address] 63886- 1399 14 Oct, 2015 ADD (attention deficit disorder) F90.0 [place] [address] 87909- 0574 06 Oct, 2015 Allergic rhinitis due to pollen 477.0 [place] [address] 22746- 3758 Aug, Allergic rhinitis due to pollen 477.0 [place] [address] 73733- 4242 Aug, 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 [place] [address] 34861- 1325 Aug, [place] [id number] [place] [address] 33630- 8083 Aug, Allergic rhinitis due to pollen 477.0 [place] [id number] [place] [address] 92014- 8706 Aug, Allergic rhinitis due to pollen 477.0 [place] [id number] [place] [address] 16369- 1441 Aug, Allergic rhinitis due to pollen 477.0 [place] [id number] [place] [address] 32478- 1507 Aug, Exposure to influenza Z20.828 [facility] [id number] [place] [address] [id number] Aug, Encounter for dental examination and cleaning without abnormal findings Z01.20 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 [place] [id number] [place] [address] 34681- 6994 Jul, [place] [id number] [place] [address] 22018- 6107 Jul, Allergic rhinitis due to pollen 477.0 [place] [address] 66417- 7407 Jul, [place] [address] 98664- 8584 Jul, Allergic rhinitis due to pollen 477.0 [place] [address] 53702- 0207 Jun, ADD (attention deficit disorder) F90.0 ; Acquired hypothyroidism E03.9 ; PCOS (polycystic ovarian syndrome) E28.2 ; Polyarthralgia M25.50 and On stimulant medication Z79.899 [place] [id number] [place] [address] 63821- 7061 Apr, Encounter for immunization Z23 [place] [address] 26461- 3962 16 Mar, 2015 Allergic rhinitis due to pollen 477.0 [place] [id number] [place] [address] 75445- 8799 14 Mar, 2015 Influenza vaccine administered V04.81 [place] [address] 19005- 6398 03 Mar, 2015 [place] [id number] [place] [address] 91634- 4903 Jan, Allergic rhinitis due to pollen 477.0 [place] [address] [facility] [id number], [place] [address]- 2239 Jan, Allergic rhinitis due to pollen 477.0 [facility] [address], [place] [address]- 7026 Jan, Allergic rhinitis due to pollen 477.0 [facility] [address] [id number] Jan, Dental examination V72.2 [facility] [id number] [place] [address] 48754- 7156 Dec, Allergic rhinitis due to pollen 477.0 [facility] [address] [place] [address] 59723- 3144 October, [facility] [address] [place] [address] 53802- 0056 Oct, [facility] [id number] [place] [address] 57983- 2114 Oct, [facility] [id number] [address] Aug, [facility] [id number] [address] Aug, [facility] [id number] [address] Aug, [facility] [id number] [address] Aug, [facility] [id number] [address] Aug, [facility] [id number] [address] Aug, [facility] [id number] [address] Aug, [facility] [id number] [address] Aug, [facility] [place] [facility] [address] [id number] [place] [address] Jul, [facility] [place] [facility] [address] [id number] [place] [address] Jul, [facility] [place] [facility] [address] [id number] [place] [address] Jul, [facility] [place] [facility] [address] [id number] [place] [address] Jul, [facility] [place] [facility] [address] [id number] [place] [address] Jul, [facility] [place] [facility] [address] [id number] [place] [address] Jul, [facility] [place] [facility] [address] [id number] [place] [address] 39[address] Jul, [facility] [place] [facility] [address] [id number] [place] [address]- [address] Jul, [facility] [place] [facility] [address] [id number] [place] [address] Jul, [facility] [place] [facility] [address] [id number] [place] [address] Jul, [facility] [place] [facility] [address] [id number] [place] [address]- [address] Jul, [facility] [place] [facility] [address] [id number] [place] [address] Jun, [facility] [place] [facility] [address] [id number] [place] [address] Jun, [facility] [place] [facility] [address] [id number] [place] [address] Jun, [facility] [place] [facility] [address] [id number] [place] [address] Jun, [facility] [place] [facility] [address] [id number] [place] [address]- [address] Jun, [facility] [place] [facility] [address] [id number] [place] [address]- [address] Jun, [facility] [place] [facility] [address] [id number] [place] [address] May, [facility] [place] [facility] [address] [id number] [place] [address] May, [facility] [place] [facility] [address] [id number] [place] [address] 17[address] May, [facility] [place] [facility] [address] [id number] [place] [address] 4838 May, [facility] [place] [facility] [address] [id number] [place] [address]- 0724 May, [facility] [place] [facility] [address] [id number] [place] [address]- 2991 May, [facility] [place] [facility] [address] [id number] [place] [address]- 3049 Apr, [facility] [place] [facility] [address] [id number] [place] [address]- 5[address] Apr, [facility] [place] [facility] [address] [id number] [place] [address] 6[address] 30 Mar, 2014 [facility] [place] [facility] [address] [id number] [place] [address]- 3635 30 Mar, 2013 [facility] [place] [facility] [address] [id number] [place] [address]- 2541 30 Mar, 2013 [facility] [place] [facility] [address] [id number] [place] [address]- 2037 30 Mar, 2013 [facility] [place] [facility] [address] [id number] [place] [address]- 5941 19 Mar, 2014 [facility] [place] [facility] [address] [id number] [place] [address]- 9389 Mar, [facility] [place] [facility] [address] [id number] [place] [address]- 9082 Jan, [facility] [place] [facility] [address] [id number] [place] [address]- 3261 Jan, [facility] [place] [facility] [address] [id number] [place] [address]- 8561 Jan, [facility] [place] [facility] [address] [id number] [place] [address]- 3587 Jan, [facility] [place] [facility] [address] [id number] [place] [address]- 2412 Jan, [facility] [place] [facility] [address] [id number] [place] [address]- 4039 Jan, [facility] [place] [facility] [address] [id number] [place] [address]- 2220 Dec, [facility] [place] [facility] [address] [id number] [place] [address]- 0324 Dec, [facility] [place] [facility] [address] [id number] [place] [address]- 1106 Dec, [facility] [place] [facility] [address] [id number] [place] [address]- 7984 Dec, [facility] [place] [facility] [address] [id number] [place] [address]- 2071 Dec, [facility] [place] [facility] [address] [id number] [place] [address]- 8205 Dec, [facility] [place] [facility] [address] [id number] [place] [address]- 8487 Dec, [facility] [place] [facility] [address] [id number] [place] [address]- 9281 Dec, [facility] [place] [facility] [address] [id number] [place] [address]- 2836 Dec, [facility] [place] [facility] [address] [id number] [place] [address]- 6442 Dec, [facility] [place] [facility] [address] [id number] [place] [address]- 3839 Dec, [facility] [place] [facility] [address] [id number] [place] [address]- 8475 Dec, [facility] [place] [facility] [address] [id number] [place] [address]- 8924 Dec, [facility] [place] [facility] [address] [id number] [place] [address]- 8654 Dec, [facility] [place] [facility] [address] [id number] [place] [address]- 9895 Dec, [facility] [place] [facility] [address] [id number] [place] [address]- 5116 Dec, [facility] [place] [facility] [address] [id number] [place] [address]- 3258 October, [facility] [place] [facility] [address] [id number] [place] [address]- 9006 October, [facility] [place] [facility] [address] [id number] [place] [address]- 1059 October, [facility] [place] [facility] [address] [id number] [place] [address]- 0485 October, [facility] [place] [facility] [address] [id number] [place] [address]- 5664 October, [facility] [place] [facility] [address] [id number] [place] [address]- 5711 October, [facility] [place] [facility] [address] [id number] [place] [address]- 9886 Oct, [facility] [place] [facility] [address] [id number] [place] [address]- 6200 Oct, [facility] [place] [facility] [address] [id number] [place] [address]- 9910 Oct, [facility] [place] [facility] [address] [id number] [place] [address]- 0425 17 Oct, 2013 [facility] [place] [facility] [address] [id number] [place] [address]- 4307 Oct, [facility] [place] [facility] [address] [id number] [place] [address]- 8447 Oct, [facility] [place] [facility] [address] [id number] [place] [address]- 7983 Aug, [facility] [place] [facility] [address] [id number] [place] [address]- 6509 Aug, [facility] [place] [facility] [address] [id number] [place] [address]- 6361 Aug, [facility] [place] [facility] [address] [id number] [place] [address]- 0719 Aug, [facility] [place] [facility] [address] [id number] [place] [address]- 1100 Jul, [facility] [place] [facility] [address] [id number] [place] [address]- 4650 Jul, [facility] [place] [facility] [address] [id number] [place] [address]- 9429 Jul, [facility] [place] [facility] [address] [id number] [place] [address]- 4274 Jul, [facility] [place] [facility] [address] [id number] [place] [address]- 2272 Jun, [facility] [place] [facility] [address] [id number] [place] [address]- 4715 Jun, [facility] [place] [facility] [address] [id number] [place] [address]- 2565 Jun, [facility] [place] [facility] [address] [id number] [place] [address]- 0475 Jun, [facility] [place] [facility] [address] [id number], [place] [address]- 3036 Jun, [facility] [place] [facility] [address] [id number] [place] [address] Jun, [facility] [place] [facility] [address] [id number] [place] [address]- 4166 Jun, [facility] [place] [facility] [address] [facility] [id number] [place] [address]- 2518 Jun, [facility] [place] [facility] [address] [id number], [place] [address] 6129 Jun, [facility] [place] [facility] [address] [id number] [place] [address]- 9270 Jun, [facility] [place] [facility] [address] [id number] [place] [address]- 3465 Jun, [facility] [place] [facility] [address] [id number], [place] [address]- 6039 May, [facility] [place] [facility] [address] [id number], [place] [address]- 3369 May, [facility] [place] [facility] [address] [id number], [place] [address]- 2152 May, [facility] [place] [facility] [address] [id number], [place] [address]- 9611 May, [facility] [place] [facility] [address] [id number], [place] [address]- 7603 May, [facility] [place] [facility] [address] [id number], [place] [address]- 4860 May, [facility] [place] [facility] [address] [id number], [place] [address]- 8390 May, [facility] [place] [facility] [address] [facility] [id number], [place] [address]- 3965 Apr, [facility] [place] [facility] [address] [id number], [place] [address]- 7529 Apr, [facility] [place] [facility] [address] [id number] [place] [address]- 5356 18 Apr, 2013 [facility] [address] [id number] [place] [address]- 5237 Apr, [facility] [address] [id number] [place] [address] 2546 27 Mar, 2013 [facility] [address] [id number] [place] [address]- 7646 Mar, 2012 [facility] [address] [id number] [place] [address] 2545 Mar, [facility] [address] [id number] [place] [address]- 2947 Mar, [facility] [address] [id number] [place] [address]- 2440 Mar, [facility] [address] [id number] [place] [address]- 6839 Mar, [facility] [address] [id number] [place] [address]- 4460 Jan, [facility] [address] [id number] [place] [address]- 3564 Jan, [facility] [address] [id number] [place] [address]- 0083 Jan, [facility] [place] [facility] [address] [id number] [place] [address] 2540 Jan, [facility] [address] [id number] [place] [address]- 2547 Jan, [facility] [place] [facility] [address] [id number] [place] [address]- 8855 Dec, [facility] [place] [facility] [address] [id number] [place] [address] 2545 Dec, [facility] [place] [facility] [address] [id number] [place] [address]- 1494 Dec, [facility] [address] [id number] [place] [address]- 4200 Dec, [facility] [place] [facility] [address] [id number] [place] [address]- 0753 Dec, [facility] [place] [facility] [address] [id number] [place] [address]- 1736 Dec, [facility] [place] [facility] [address] [id number] [place] [address]- 7732 Dec, [facility] [address] [id number] [place] [address]- 4432 Dec, [facility] [place] [facility] [address] [id number] [place] [address]- 6441 October, [facility] [address] [id number] [place] [address]- 0915 October, [facility] [address] [id number] [place] [address]- 8100 October, [facility] [place] [facility] [address] [id number] [place] [address]- 1812 Oct, [facility] [place] [facility] [address] [id number] [place] [address]- 6774 Oct, [facility] [place] [facility] [address] [id number] [place] [address]- 8731 Oct, [facility] [place] [facility] [address] [id number], [place] [address]- 5990 Oct, [facility] [place] [facility] [address] [id number] [place] [address]- 8710 Aug, [facility] [place] [facility] [address] [id number] [place] [address]- 1196 Aug, [facility] [place] [facility] [address] [id number], [place] [address]- 5691 05 Aug, 2012 [facility] [place] [facility] [address] [id number], [place] [address]- 7644 Jul, [facility] [place] [facility] [address] [id number] [place] [address]- 0058 May, [facility] [place] [facility] [address] [id number] [place] [address]- 3021 May, [facility] [place] [facility] [address] [facility] [id number] [place] [address]- 8384 Apr, [facility] [place] [facility] [address] [id number] [place] [address]- 9269 Apr, [facility] [place] [facility] [address] [id number] [place] [address]- 6082 Apr, [facility] [place] [facility] [address] [id number] [place] [address]- 7216 Apr, [facility] [place] [facility] [address] [facility] [id number] [place] [address]- 8259 Apr, [facility] [place] [facility] [address] [id number] [place] [address]- 6860 Apr, [facility] [place] [facility] [address] [facility] [id number] [place] [address]- 5983 Apr, [facility] [place] [facility] [address] [facility] [id number] [place] [address]- 1225 Apr, [facility] [place] [facility] [address] [facility] [id number], [place] [address]- 5574 Apr, [facility] [place] [facility] [address] [facility] [id number], [place] [address]- 2744 Apr, [facility] [place] [facility] [address] [id number] [place] [address]- 3075 14 Apr, 2012 [facility] [place] [facility] [address] [facility] [id number], [place] [address]- 6606 Apr, [facility] [place] [facility] [address] [facility] [id number] [place] [address]- 4307 17 Mar, 2012 [facility] [place] [facility] [address] [id number] [place] [address]- 9311 Jan, [facility] [place] [facility] [address] [id number] [place] [address]- 6009 Dec, [facility] [place] [facility] [address] [id number] [place] [address]- 2752 October, [facility] [place] [facility] [address] [id number] [place] [address]- 0573 Oct, [facility] [place] [facility] [address] [id number] [place] [address]- 2563 Oct, [facility] [place] [facility] [address] [id number] [place] [address]- 8125 Oct, [facility] [place] [facility] [address] [id number] [place] [address]- 2872 Aug, [facility] [place] [facility] [address] [id number] [place] [address]- 3313 Aug, [facility] [place] [facility] [address] [id number] [place] [address]- 7467 Aug, [facility] [place] [facility] [address] [id number] [place] [address]- 2386 Aug, [facility] [place] [facility] [address] [id number] [place] [address]- 8662 Aug, [facility] [place] [facility] [address] [id number] [place] [address]- 3758 Aug, [facility] [place] [facility] [address] [id number] [place] [address]114 Jun, [facility] [place] [facility] [address] [id number] [place] [address]- 5771 Apr, [facility] [place] [facility] [address] [id number] [place] [address]- 8281 Jun, [facility] [place] [facility] [address] [id number], [place] [address]- 5656 Jun, [facility] [address] [facility] [id number] [place] [address]- 8436 May, [facility] [address] [facility] [id number], [place] [address] 2546 May, [facility] [address] [facility] [id number], [place] [address]- 3666 Apr, [facility] [address] [facility] [id number], [place] [address]- 5956 Apr, IMMUNIZATIONS No Known Immunizations SOCIAL HISTORY Never Assessed REASON FOR VISIT Allergy injection(s) PLAN OF CARE VITAL SIGNS MEDICATIONS Unknown Medications RESULTS No Results PROCEDURES Procedure Date Ordered Result Body Site IMMUNOTHERAPY, 2 OR MORE INJECTIONS 2017-06-01 N/A IMMUNOTHERAPY INJECTIONS Jun 01, 2017 INSTRUCTIONS MEDICATIONS ADMINISTERED No Known [...]
--- OUTSIDE RECORDS SUMMARY | 2018-07-18 08:14 | XMS REPORT ---
Author Author SUKHDEV CARVER Organization [facility] Address [address] [place] [address] Care Team Providers Care Pediatric Genetic Counselor Name Role Phone SUKHDEV CARVER Unavailable PROBLEMS Type Condition ICD9-CM Code [id number] Code Onset Dates Condition Status SNOMED Code Problem ADD (attention deficit disorder) F90.0 Active 131925373 Problem Major depressive disorder, recurrent episode, mild F33.0 Active 937499789 Problem Allergic rhinitis due to pollen J30.1 Active 65149601 Problem Current chronic use of inhaled steroid Z79.51 Active 322125913 Problem Asthma exacerbation J45.901 Active 225674383 Problem Pure hypercholesterolemia E78.00 Active 544842910 Problem PCOS (polycystic ovarian syndrome) E28.2 Active 76705555 Problem Multiple food allergies Z91.018 Active 576599302 Problem Dental examination Z01.20 Active 338352201 Problem Uncomplicated severe persistent asthma J45.50 Active 466877519 Problem Gastroesophageal reflux disease without esophagitis K21.9 Active 677726700 Problem Migraine with aura and without status migrainosus, not intractable G43.109 Active 4849251 Problem Vitamin D deficiency E55.9 Active 39001074 Problem Acquired hypothyroidism E03.9 Active 168763165 ALLERGIES Unknown Allergies SOCIAL HISTORY No smoking Hx information available PLAN OF CARE VITAL SIGNS MEDICATIONS Medication Instructions Dosage Frequency Start Date End Date Duration Status Ibuprofen 800 MG Orally every 8 hours 1 tablet 8h 30 days Active RESULTS No Results PROCEDURES No Known procedures IMMUNIZATIONS No Known Immunizations
--- OUTSIDE RECORDS SUMMARY | 2018-07-18 08:17 | XMS REPORT | Continuity of Care Document ---
Author Author [facility] Address Unknown Phone Unavailable Allergies Active Description Code Type Severity Reaction Onset Reported/Identified Relationship to Patient Clinical Status Yes aspirin [id number] Drug Allergy Mild N/A 07/02/2009 Yes azithromycin [id number] Drug Allergy Mild N/A 07/02/2009 Yes cefuroxime [id number] Drug Allergy Mild N/A 07/02/2009 Yes Ceftin Drug Allergy N/A N/A 03/02/2012 Yes CORN Food Allergy N/A N/A 03/02/2012 Yes MALT EXTRACT Food Allergy N/ A N/A 03/02/2012 Yes morphine Drug Allergy N/A N/A 03/02/2012 Yes soy Drug Allergy N/A N/A 03/02/2012 Yes SOYBEANS Food Allergy N/A N/A 03/02/2012 Yes WHEAT Food Allergy N/A N/A 03/02/2012 Yes Zithromax Drug Allergy N/A N/A 03/02/2012 Yes asprin Drug Allergy 03/02/2012 Yes Ceftin Drug Allergy 03/02/2012 Yes CORN Food Allergy 03/02/2012 Yes Malt Drug Allergy 03/02/2012 Yes MALT EXTRACT Food Allergy 03/02/2012 Yes morphine Drug Allergy 03/02/2012 Yes soy Drug Allergy 03/02/2012 Yes SOYBEANS Food Allergy 03/02/2012 Yes WHEAT Drug Allergy 03/02/2012 Yes Zithromax Drug Allergy 03/02/2012 Yes corn [id number] Drug Allergy Unknown N/A 11/22/2012 Yes dextrose [id number] Drug Allergy Unknown N/A 11/22/2012 Yes POWDER IN GLOVES POWDER IN GLOVES Unknown N/A 11/22/2012 Medications There is no data. Problems Date Dx Coded Attending Type Code Diagnosis Diagnosed By 01/21/2008 WILL RODRIGEZ MD V70.5 PREEMPLOYMENT/PRESCHOOL EXAM 01/21/2008 PAZ YODER DDS V70.5 PREEMPLOYMENT/PRESCHOOL EXAM 01/21/2008 V70.5 PREEMPLOYMENT/ PRESCHOOL EXAM 01/21/2008 V70.5 PREEMPLOYMENT/ PRESCHOOL EXAM 01/21/2008 V70.5 PREEMPLOYMENT/ PRESCHOOL EXAM 01/21/2008 V70.5 PREEMPLOYMENT/ PRESCHOOL EXAM 01/21/2008 V70.5 PREEMPLOYMENT/ PRESCHOOL EXAM 01/21/2008 V70.5 PREEMPLOYMENT/ PRESCHOOL EXAM 01/21/2008 V70.5 PREEMPLOYMENT/ PRESCHOOL EXAM 01/21/2008 V70.5 PREEMPLOYMENT/ PRESCHOOL EXAM 01/21/2008 V70.5 PREEMPLOYMENT/ PRESCHOOL EXAM 01/21/2008 V70.5 PREEMPLOYMENT/ PRESCHOOL EXAM 01/21/2008 V70.5 PREEMPLOYMENT/ PRESCHOOL EXAM 01/21/2008 V70.5 PREEMPLOYMENT/ PRESCHOOL EXAM 01/21/2008 V70.5 PREEMPLOYMENT/ PRESCHOOL EXAM 01/21/2008 V70.5 PREEMPLOYMENT/ PRESCHOOL EXAM 01/21/2008 WILKINS DO, BALJEET K V70.5 PREEMPLOYMENT/PRESCHOOL EXAM 01/21/2008 WILKINS DO, BALJEET K V70.5 PREEMPLOYMENT/PRESCHOOL EXAM 01/21/2008 WILKINS DO BALJEET K V70.5 PREEMPLOYMENT/PRESCHOOL EXAM 01/21/2008 WILKINS DO BALJEET K V70.5 PREEMPLOYMENT/PRESCHOOL EXAM 01/21/2008 WILKINS DO BALJEET K V70.5 PREEMPLOYMENT/PRESCHOOL EXAM 01/21/2008 WILKINS DO BALJEET K V70.5 PREEMPLOYMENT/PRESCHOOL EXAM 01/21/2008 WILKINS DO BALJEET K V70.5 PREEMPLOYMENT/PRESCHOOL EXAM 01/21/2008 WILKINS DO BALJEET K V70.5 PREEMPLOYMENT/PRESCHOOL EXAM 01/21/2008 WILKINS DO, BALJEET K V70.5 PREEMPLOYMENT/PRESCHOOL EXAM 01/21/2008 WILKINS DO BALJEET K V70.5 PREEMPLOYMENT/PRESCHOOL EXAM 01/21/2008 WILKINS DO BALJEET K V70.5 PREEMPLOYMENT/PRESCHOOL EXAM 01/21/2008 WILKINS DO, BALJEET K V70.5 PREEMPLOYMENT/PRESCHOOL EXAM 01/21/2008 WILKINS DO, BALJEET K V70.5 PREEMPLOYMENT/PRESCHOOL EXAM 01/21/2008 WILKINS DO, BALJEET K V70.5 PREEMPLOYMENT/PRESCHOOL EXAM 01/21/2008 WILKINS DO, BALJEET K V70.5 PREEMPLOYMENT/PRESCHOOL EXAM 01/21/2008 WILKINS DO, BALJEET K V70.5 PREEMPLOYMENT/PRESCHOOL EXAM 01/21/2008 WILKINS DO, BALJEET K V70.5 PREEMPLOYMENT/PRESCHOOL EXAM 01/21/2008 WILKINS DO, BALJEET K V70.5 PREEMPLOYMENT/PRESCHOOL EXAM 01/21/2008 WILKINS DO, BALJEET K V70.5 PREEMPLOYMENT/PRESCHOOL EXAM 01/21/2008 WILKINS DO, BALJEET K V70.5 PREEMPLOYMENT/PRESCHOOL EXAM 01/21/2008 WILKINS DO, BALJEET K V70.5 PREEMPLOYMENT/PRESCHOOL EXAM 01/21/2008 WILKINS DO, BALJEET K V70.5 PREEMPLOYMENT/PRESCHOOL EXAM 01/21/2008 WILKINS DO, BALJEET K V70.5 PREEMPLOYMENT/PRESCHOOL EXAM 01/21/2008 CHERRIE VELEZ APRN V70.5 PREEMPLOYMENT/PRESCHOOL EXAM 01/21/2008 WILKINS DO, BALJEET K V70.5 PREEMPLOYMENT/PRESCHOOL EXAM 01/21/2008 WILKINS DO, BALJEET K V70.5 PREEMPLOYMENT/PRESCHOOL EXAM 01/21/2008 HUMBERTO PROCTOR DDS V70.5 PREEMPLOYMENT/PRESCHOOL EXAM 01/21/2008 WILKINS DO, BALJEET K V70.5 PREEMPLOYMENT/PRESCHOOL EXAM 01/21/2008 WILKINS DO, BALJEET K V70.5 PREEMPLOYMENT/PRESCHOOL EXAM 01/21/2008 WILKINS DO, BALJEET K V70.5 PREEMPLOYMENT/PRESCHOOL EXAM 01/21/2008 CHERRIE VELEZ APRN L V70.5 PREEMPLOYMENT/PRESCHOOL EXAM 01/21/2008 SAGAR NAVA MD V70.5 PREEMPLOYMENT/PRESCHOOL EXAM 01/21/2008 WILKINS DO, BALJEET K V70.5 PREEMPLOYMENT/PRESCHOOL EXAM 01/21/2008 WILKINS DO, BALJEET K V70.5 PREEMPLOYMENT/PRESCHOOL EXAM 01/21/2008 WILKINS DO, BALJEET K V70.5 PREEMPLOYMENT/PRESCHOOL EXAM 02/18/2008 WILL RODRIGEZ MD 078.10 WARTS UNSPECIFIED ALL SITES 02/18/2008 PAZ YODER DDS 078.10 WARTS UNSPECIFIED ALL SITES 02/18/2008 078.10 WARTS UNSPECIFIED ALL SITES 02/18/2008 078.10 WARTS UNSPECIFIED ALL SITES 02/18/2008 078.10 WARTS UNSPECIFIED ALL SITES 02/18/2008 078.10 WARTS UNSPECIFIED ALL SITES 02/18/2008 078.10 WARTS UNSPECIFIED ALL SITES 02/18/2008 078.10 WARTS UNSPECIFIED ALL SITES 02/18/2008 078.10 WARTS UNSPECIFIED ALL SITES 02/18/2008 078.10 WARTS UNSPECIFIED ALL SITES 02/18/2008 078.10 WARTS UNSPECIFIED ALL SITES 02/18/2008 078.10 WARTS UNSPECIFIED ALL SITES 02/18/2008 078.10 WARTS UNSPECIFIED ALL SITES 02/18/2008 078.10 WARTS UNSPECIFIED ALL SITES 02/18/2008 078.10 WARTS UNSPECIFIED ALL SITES 02/18/2008 078.10 WARTS UNSPECIFIED ALL SITES 02/18/2008 WILKINS DO, BALJEET K 078.10 WARTS UNSPECIFIED ALL SITES 02/18/2008 WILKINS DO, BALJEET K 078.10 WARTS UNSPECIFIED ALL SITES 02/18/2008 WILKINS DO, BALJEET K 078.10 WARTS UNSPECIFIED ALL SITES 02/18/2008 WILKINS DO, BALJEET K 078.10 WARTS UNSPECIFIED ALL SITES 02/18/2008 WILKINS DO, BALJEET K 078.10 WARTS UNSPECIFIED ALL SITES 02/18/2008 WILKINS DO, BALJEET K 078.10 WARTS UNSPECIFIED ALL SITES 02/18/2008 WILKINS DO, BALJEET K 078.10 WARTS UNSPECIFIED ALL SITES 02/18/2008 WILKINS DO, BALJEET K 078.10 WARTS UNSPECIFIED ALL SITES 02/18/2008 WILKINS DO, BALJEET K 078.10 WARTS UNSPECIFIED ALL SITES 02/18/2008 WILKINS DO, BALJEET K 078.10 WARTS UNSPECIFIED ALL SITES 02/18/2008 WILKINS DO, BALJEET K 078.10 WARTS UNSPECIFIED ALL SITES 02/18/2008 WILKINS DO, BALJEET K 078.10 WARTS UNSPECIFIED ALL SITES 02/18/2008 WILKINS DO, BALJEET K 078.10 WARTS UNSPECIFIED ALL SITES 02/18/2008 WILKINS DO, BALJEET K 078.10 WARTS UNSPECIFIED ALL SITES 02/18/2008 WILKINS DO, BALJEET K 078.10 WARTS UNSPECIFIED ALL SITES 02/18/2008 WILKINS DO, BALJEET K 078.10 WARTS UNSPECIFIED ALL SITES 02/18/2008 WILKINS DO, BALJEET K 078.10 WARTS UNSPECIFIED ALL SITES 02/18/2008 WILKINS DO, BALJEET K 078.10 WARTS UNSPECIFIED ALL SITES 02/18/2008 WILKINS DO, BALJEET K 078.10 WARTS UNSPECIFIED ALL SITES 02/18/2008 WILKINS DO, BALJEET K 078.10 WARTS UNSPECIFIED ALL SITES 02/18/2008 WILKINS DO, BALJEET K 078.10 WARTS UNSPECIFIED ALL SITES 02/18/2008 WILKINS DO, BALJEET K 078.10 WARTS UNSPECIFIED ALL SITES 02/18/2008 WILKINS DO, BALJEET K 078.10 WARTS UNSPECIFIED ALL SITES 02/18/2008 MADL 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, CHERRIE L 078.10 WARTS UNSPECIFIED ALL SITES 02/18/2008 WILKINS DO, BALJEET K 078.10 WARTS UNSPECIFIED ALL SITES 02/18/2008 WILKINS DO, BALJEET K 078.10 WARTS UNSPECIFIED ALL SITES 02/18/2008 HUMBERTO PROCTOR DDS 078.10 WARTS UNSPECIFIED ALL SITES 02/18/2008 WILKINS DO, BALJEET K 078.10 WARTS UNSPECIFIED ALL SITES 02/18/2008 WILKINS DO, BALJEET K 078.10 WARTS UNSPECIFIED ALL SITES 02/18/2008 WILKINS DO, BALJEET K 078.10 WARTS UNSPECIFIED ALL SITES 02/18/2008 MADL 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, CHERRIE L 078.10 WARTS UNSPECIFIED ALL SITES 02/18/2008 SAGAR NAVA MD 078.10 WARTS UNSPECIFIED ALL SITES 02/18/2008 WILKINS DO, BALJEET K 078.10 WARTS UNSPECIFIED ALL SITES 02/18/2008 BALJEET WILKINS DO K 078.10 WARTS UNSPECIFIED ALL SITES 02/18/2008 BALJEET WILKINS DO K 078.10 WARTS UNSPECIFIED ALL SITES 06/13/2008 WILL RODRIGEZ MD 244.9 HYPOTHYROIDISM 06/13/2008 WILL RODRIGEZ MD 477.9 RHINITIS ALLERGIC 06/13/2008 WILL RODRIGEZ MD 530.81 ESOPHAGEAL REFLUX 06/13/2008 BEBA DDS, PAZ B 244.9 HYPOTHYROIDISM 06/13/2008 BEBA DDS, PAZ B 477.9 RHINITIS ALLERGIC 06/13/2008 BEBA DDS, PAZ B 530.81 ESOPHAGEAL REFLUX 06/13/2008 244.9 HYPOTHYROIDISM 06/13/2008 477.9 RHINITIS ALLERGIC 06/13/2008 530.81 ESOPHAGEAL REFLUX 06/13/2008 244.9 HYPOTHYROIDISM 06/13/2008 477.9 RHINITIS ALLERGIC 06/13/2008 530.81 ESOPHAGEAL REFLUX 06/13/2008 244.9 HYPOTHYROIDISM 06/13/2008 477.9 RHINITIS ALLERGIC 06/13/2008 530.81 ESOPHAGEAL REFLUX 06/13/2008 244.9 HYPOTHYROIDISM 06/13/2008 477.9 RHINITIS ALLERGIC 06/13/2008 530.81 ESOPHAGEAL REFLUX 06/13/2008 244.9 HYPOTHYROIDISM 06/13/2008 477.9 RHINITIS ALLERGIC 06/13/2008 530.81 ESOPHAGEAL REFLUX 06/13/2008 244.9 HYPOTHYROIDISM 06/13/2008 477.9 RHINITIS ALLERGIC 06/13/2008 530.81 ESOPHAGEAL REFLUX 06/13/2008 244.9 HYPOTHYROIDISM 06/13/2008 477.9 RHINITIS ALLERGIC 06/13/2008 530.81 ESOPHAGEAL REFLUX 06/13/2008 244.9 HYPOTHYROIDISM 06/13/2008 477.9 RHINITIS ALLERGIC 06/13/2008 530.81 ESOPHAGEAL REFLUX 06/13/2008 244.9 HYPOTHYROIDISM 06/13/2008 477.9 RHINITIS ALLERGIC 06/13/2008 530.81 ESOPHAGEAL REFLUX 06/13/2008 244.9 HYPOTHYROIDISM 06/13/2008 477.9 RHINITIS ALLERGIC 06/13/2008 530.81 ESOPHAGEAL REFLUX 06/13/2008 244.9 HYPOTHYROIDISM 06/13/2008 477.9 RHINITIS ALLERGIC 06/13/2008 530.81 ESOPHAGEAL REFLUX 06/13/2008 244.9 HYPOTHYROIDISM 06/13/2008 477.9 RHINITIS ALLERGIC 06/13/2008 530.81 ESOPHAGEAL REFLUX 06/13/2008 244.9 HYPOTHYROIDISM 06/13/2008 477.9 RHINITIS ALLERGIC 06/13/2008 530.81 ESOPHAGEAL REFLUX 06/13/2008 244.9 HYPOTHYROIDISM 06/13/2008 477.9 RHINITIS ALLERGIC 06/13/2008 530.81 ESOPHAGEAL REFLUX 06/13/2008 WILKINS DO, BALJEET K 244.9 HYPOTHYROIDISM 06/13/2008 WILKINS DO, BALJEET K 477.9 RHINITIS ALLERGIC 06/13/2008 WILKINS DO, BALJEET K 530.81 ESOPHAGEAL REFLUX 06/13/2008 WILKINS DO, BALJEET K 244.9 HYPOTHYROIDISM 06/13/2008 WILKINS DO, BALJEET K 477.9 RHINITIS ALLERGIC 06/13/2008 WILKINS DO, BALJEET K 530.81 ESOPHAGEAL REFLUX 06/13/2008 WILKINS DO, BALJEET K 244.9 HYPOTHYROIDISM 06/13/2008 WILKINS DO, BALJEET K 477.9 RHINITIS ALLERGIC 06/13/2008 WILKINS DO, BALJEET K 530.81 ESOPHAGEAL REFLUX 06/13/2008 WILKINS DO, BALJEET K 244.9 HYPOTHYROIDISM 06/13/2008 WILKINS DO, BALJEET K 477.9 RHINITIS ALLERGIC 06/13/2008 WILKINS DO, BALJEET K 530.81 ESOPHAGEAL REFLUX 06/13/2008 WILKINS DO, BALJEET K 244.9 HYPOTHYROIDISM 06/13/2008 WILKINS DO, BALJEET K 477.9 RHINITIS ALLERGIC 06/13/2008 WILKINS DO, BALJEET K 530.81 ESOPHAGEAL REFLUX 06/13/2008 WILKINS DO, BALJEET K 244.9 HYPOTHYROIDISM 06/13/2008 WILKINS DO, BALJEET K 477.9 RHINITIS ALLERGIC 06/13/2008 WILKINS DO, BALJEET K 530.81 ESOPHAGEAL REFLUX 06/13/2008 WILKINS DO, BALJEET K 244.9 HYPOTHYROIDISM 06/13/2008 WILKINS DO, BALJEET K 477.9 RHINITIS ALLERGIC 06/13/2008 WILKINS DO, BALJEET K 530.81 ESOPHAGEAL REFLUX 06/13/2008 WILKINS DO, BALJEET K 244.9 HYPOTHYROIDISM 06/13/2008 WILKINS DO, BALJEET K 477.9 RHINITIS ALLERGIC 06/13/2008 WILKINS DO, BALJEET K 530.81 ESOPHAGEAL REFLUX 06/13/2008 WILKINS DO, BALJEET K 244.9 HYPOTHYROIDISM 06/13/2008 WILKINS DO, BALJEET K 477.9 RHINITIS ALLERGIC 06/13/2008 WILKINS DO, BALJEET K 530.81 ESOPHAGEAL REFLUX 06/13/2008 WILKINS DO, BALJEET K 244.9 HYPOTHYROIDISM 06/13/2008 WILKINS DO, BALJEET K 477.9 RHINITIS ALLERGIC 06/13/2008 WILKINS DO, BALJEET K 530.81 ESOPHAGEAL REFLUX 06/13/2008 WILKINS DO, BALJEET K 244.9 HYPOTHYROIDISM 06/13/2008 WILKINS DO, BALJEET K 477.9 RHINITIS ALLERGIC 06/13/2008 WILKINS DO, BALJEET K 530.81 ESOPHAGEAL REFLUX 06/13/2008 WILKINS DO, BALJEET K 244.9 HYPOTHYROIDISM 06/13/2008 WILKINS DO, BALJEET K 477.9 RHINITIS ALLERGIC 06/13/2008 WILKINS DO, BALJEET K 530.81 ESOPHAGEAL REFLUX 06/13/2008 WILKINS DO, BALJEET K 244.9 HYPOTHYROIDISM 06/13/2008 WILKINS DO, BALJEET K 477.9 RHINITIS ALLERGIC 06/13/2008 WILKINS DO, BALJEET K 530.81 ESOPHAGEAL REFLUX 06/13/2008 WILKINS DO, BALJEET K 244.9 HYPOTHYROIDISM 06/13/2008 WILKINS DO, BALJEET K 477.9 RHINITIS ALLERGIC 06/13/2008 WILKINS DO, BALJEET K 530.81 ESOPHAGEAL REFLUX 06/13/2008 WILKINS DO, BALJEET K 244.9 HYPOTHYROIDISM 06/13/2008 WILKINS DO, BALJEET K 477.9 RHINITIS ALLERGIC 06/13/2008 WILKINS DO, BALJEET K 530.81 ESOPHAGEAL REFLUX 06/13/2008 WILKINS DO, BALJEET K 244.9 HYPOTHYROIDISM 06/13/2008 WILKINS DO, BALJEET K 477.9 RHINITIS ALLERGIC 06/13/2008 WILKINS DO, BALJEET K 530.81 ESOPHAGEAL REFLUX 06/13/2008 WILKINS DO, BALJEET K 244.9 HYPOTHYROIDISM 06/13/2008 WILKINS DO, BALJEET K 477.9 RHINITIS ALLERGIC 06/13/2008 WILKINS DO, BALJEET K 530.81 ESOPHAGEAL REFLUX 06/13/2008 WILKINS DO, BALJEET K 244.9 HYPOTHYROIDISM 06/13/2008 WILKINS DO, BALJEET K 477.9 RHINITIS ALLERGIC 06/13/2008 WILKINS DO, BALJEET K 530.81 ESOPHAGEAL REFLUX 06/13/2008 WILKINS DO, BALJEET K 244.9 HYPOTHYROIDISM 06/13/2008 WILKINS DO, BALJEET K 477.9 RHINITIS ALLERGIC 06/13/2008 WILKINS DO, BALJEET K 530.81 ESOPHAGEAL REFLUX 06/13/2008 WILKINS DO, BALJEET K 244.9 HYPOTHYROIDISM 06/13/2008 WILKINS DO, BALJEET K 477.9 RHINITIS ALLERGIC 06/13/2008 WILKINS DO, BALJEET K 530.81 ESOPHAGEAL REFLUX 06/13/2008 WILKINS DO, BALJEET K 244.9 HYPOTHYROIDISM 06/13/2008 WILKINS DO, BALJEET K 477.9 RHINITIS ALLERGIC 06/13/2008 WILKINS DO, BALJEET K 530.81 ESOPHAGEAL REFLUX 06/13/2008 WILKINS DO, BALJEET K 244.9 HYPOTHYROIDISM 06/13/2008 WILKINS DO, BALJEET K 477.9 RHINITIS ALLERGIC 06/13/2008 WILKINS DO, BALJEET K 530.81 ESOPHAGEAL REFLUX 06/13/2008 WILKINS DO, BALJEET K 244.9 HYPOTHYROIDISM 06/13/2008 WILKINS DO, BALJEET K 477.9 RHINITIS ALLERGIC 06/13/2008 WILKINS DO, BALJEET K 530.81 ESOPHAGEAL REFLUX 06/13/2008 MADL 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, CHERRIE L 244.9 HYPOTHYROIDISM 06/13/2008 MADL 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, CHERRIE L 477.9 RHINITIS ALLERGIC 06/13/2008 MADL 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, CHERRIE L 530.81 ESOPHAGEAL REFLUX 06/13/2008 WILKINS DO, BALJEET K 244.9 HYPOTHYROIDISM 06/13/2008 WILKINS DO, BALJEET K 477.9 RHINITIS ALLERGIC 06/13/2008 WILKINS DO, BALJEET K 530.81 ESOPHAGEAL REFLUX 06/13/2008 WILKINS DO, BALJEET K 244.9 HYPOTHYROIDISM 06/13/2008 WILKINS DO, BALJEET K 477.9 RHINITIS ALLERGIC 06/13/2008 WILKINS DO, BALJEET K 530.81 ESOPHAGEAL REFLUX 06/13/2008 WHITE DDS, HUMBERTO D 244.9 HYPOTHYROIDISM 06/13/2008 WHITE DDS, HUMBERTO D 477.9 RHINITIS ALLERGIC 06/13/2008 WHITE DDS, HUMBERTO D 530.81 ESOPHAGEAL REFLUX 06/13/2008 WILKINS DO, BALJEET K 244.9 HYPOTHYROIDISM 06/13/2008 WILKINS DO, BALJEET K 477.9 RHINITIS ALLERGIC 06/13/2008 WILKINS DO, BALJEET K 530.81 ESOPHAGEAL REFLUX 06/13/2008 WILKINS DO, BALJEET K 244.9 HYPOTHYROIDISM 06/13/2008 WILKINS DO, BALJEET K 477.9 RHINITIS ALLERGIC 06/13/2008 WILKINS DO, BALJEET K 530.81 ESOPHAGEAL REFLUX 06/13/2008 WILKINS DO, BALJEET K 244.9 HYPOTHYROIDISM 06/13/2008 WILKINS DO, BALJEET K 477.9 RHINITIS ALLERGIC 06/13/2008 WILKINS DO, BALJEET K 530.81 ESOPHAGEAL REFLUX 06/13/2008 MADL 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, CHERRIE L 244.9 HYPOTHYROIDISM 06/13/2008 MADL 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, CHERRIE L 477.9 RHINITIS ALLERGIC 06/13/2008 MADL 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, CHERRIE L 530.81 ESOPHAGEAL REFLUX 06/13/2008 BRANDY HAMMOND, SAGAR N 244.9 HYPOTHYROIDISM 06/13/2008 BRANDY HAMMOND, SAGAR N 477.9 RHINITIS ALLERGIC 06/13/2008 BRANDY HAMMOND, SAGAR N 530.81 ESOPHAGEAL REFLUX 06/13/2008 WILKINS DO, BALJEET K 244.9 HYPOTHYROIDISM 06/13/2008 WILKINS DO, BALJEET K 477.9 RHINITIS ALLERGIC 06/13/2008 WILKINS DO, BALJEET K 530.81 ESOPHAGEAL REFLUX 06/13/2008 WILKINS DO, BALJEET K 244.9 HYPOTHYROIDISM 06/13/2008 WILKINS DO, BALJEET K 477.9 RHINITIS ALLERGIC 06/13/2008 WILKINS DO, BALJEET K 530.81 ESOPHAGEAL REFLUX 06/13/2008 WILKINS DO, BALJEET K 244.9 HYPOTHYROIDISM 06/13/2008 WILKINS DO, BALJEET K 477.9 RHINITIS ALLERGIC 06/13/2008 WILKINS DO, BALJEET K 530.81 ESOPHAGEAL REFLUX 07/07/2008 RAIN HAMMOND, WILL 693.1 DERMATITIS DUE TO FOOD TAKEN INTERNALLY 07/07/2008 BEBA ARMENDARIZ, PAZ Travis 693.1 DERMATITIS DUE TO FOOD TAKEN INTERNALLY 07/07/2008 693.1 DERMATITIS DUE TO FOOD TAKEN INTERNALLY 07/07/2008 693.1 DERMATITIS DUE TO FOOD TAKEN INTERNALLY 07/07/2008 693.1 DERMATITIS DUE TO FOOD TAKEN INTERNALLY 07/07/2008 693.1 DERMATITIS DUE TO FOOD TAKEN INTERNALLY 07/07/2008 693.1 DERMATITIS DUE TO FOOD TAKEN INTERNALLY 07/07/2008 693.1 DERMATITIS DUE TO FOOD TAKEN INTERNALLY 07/07/2008 693.1 DERMATITIS DUE TO FOOD TAKEN INTERNALLY 07/07/2008 693.1 DERMATITIS DUE TO FOOD TAKEN INTERNALLY 07/07/2008 693.1 DERMATITIS DUE TO FOOD TAKEN INTERNALLY 07/07/2008 693.1 DERMATITIS DUE TO FOOD TAKEN INTERNALLY 07/07/2008 693.1 DERMATITIS DUE TO FOOD TAKEN INTERNALLY 07/07/2008 693.1 DERMATITIS DUE TO FOOD TAKEN INTERNALLY 07/07/2008 693.1 DERMATITIS DUE TO FOOD TAKEN INTERNALLY 07/07/2008 693.1 DERMATITIS DUE TO FOOD TAKEN INTERNALLY 07/07/2008 WILKINS DO, BALJEET K 693.1 DERMATITIS DUE TO FOOD TAKEN INTERNALLY 07/07/2008 WILKINS DO, BALJEET K 693.1 DERMATITIS DUE TO FOOD TAKEN INTERNALLY 07/07/2008 WILKINS DO, BALJEET K 693.1 DERMATITIS DUE TO FOOD TAKEN INTERNALLY 07/07/2008 WILKINS DO, BALJEET K 693.1 DERMATITIS DUE TO FOOD TAKEN INTERNALLY 07/07/2008 WIKLINS DO, BALJEET K 693.1 DERMATITIS DUE TO FOOD TAKEN INTERNALLY 07/07/2008 WILKINS DO, BALJEET K 693.1 DERMATITIS DUE TO FOOD TAKEN INTERNALLY 07/07/2008 WILKINS DO, BALJEET K 693.1 DERMATITIS DUE TO FOOD TAKEN INTERNALLY 07/07/2008 WILKINS DO, BALJEET K 693.1 DERMATITIS DUE TO FOOD TAKEN INTERNALLY 07/07/2008 WILKINS DO, BALJEET K 693.1 DERMATITIS DUE TO FOOD TAKEN INTERNALLY 07/07/2008 WILKINS DO, BALJEET K 693.1 DERMATITIS DUE TO FOOD TAKEN INTERNALLY 07/07/2008 WILKINS DO, BALJEET K 693.1 DERMATITIS DUE TO FOOD TAKEN INTERNALLY 07/07/2008 WILKINS DO, BALJEET K 693.1 DERMATITIS DUE TO FOOD TAKEN INTERNALLY 07/07/2008 WILKINS DO, BALJEET K 693.1 DERMATITIS DUE TO FOOD TAKEN INTERNALLY 07/07/2008 WILKINS DO, BALJEET K 693.1 DERMATITIS DUE TO FOOD TAKEN INTERNALLY 07/07/2008 WILKINS DO, BALJEET K 693.1 DERMATITIS DUE TO FOOD TAKEN INTERNALLY 07/07/2008 WILKINS DO, BALJEET K 693.1 DERMATITIS DUE TO FOOD TAKEN INTERNALLY 07/07/2008 WILKINS DO, BALJEET K 693.1 DERMATITIS DUE TO FOOD TAKEN INTERNALLY 07/07/2008 WILKINS DO, BALJEET K 693.1 DERMATITIS DUE TO FOOD TAKEN INTERNALLY 07/07/2008 WILKINS DO, BALJEET K 693.1 DERMATITIS DUE TO FOOD TAKEN INTERNALLY 07/07/2008 WILKINS DO, BALJEET K 693.1 DERMATITIS DUE TO FOOD TAKEN INTERNALLY 07/07/2008 WILKINS DO, BALJEET K 693.1 DERMATITIS DUE TO FOOD TAKEN INTERNALLY 07/07/2008 WILKINS DO, BALJEET K 693.1 DERMATITIS DUE TO FOOD TAKEN INTERNALLY 07/07/2008 WILKINS DO, BALJEET K 693.1 DERMATITIS DUE TO FOOD TAKEN INTERNALLY 07/07/2008 PASHAL 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, CHERRIE L 693.1 DERMATITIS DUE TO FOOD TAKEN INTERNALLY 07/07/2008 WILKINS DO, BALJEET K 693.1 DERMATITIS DUE TO FOOD TAKEN INTERNALLY 07/07/2008 WILKINS DO, BALJEET K 693.1 DERMATITIS DUE TO FOOD TAKEN INTERNALLY 07/07/2008 ESTHELA ARMENDARIZ, HUMBERTO Newton 693.1 DERMATITIS DUE TO FOOD TAKEN INTERNALLY 07/07/2008 WILKINS DO, BALJEET K 693.1 DERMATITIS DUE TO FOOD TAKEN INTERNALLY 07/07/2008 WILKINS DO, BALJEET K 693.1 DERMATITIS DUE TO FOOD TAKEN INTERNALLY 07/07/2008 WILKINS DO, BALJEET K 693.1 DERMATITIS DUE TO FOOD TAKEN INTERNALLY 07/07/2008 AGUSTIN DODD, CHERRIE L 693.1 DERMATITIS DUE TO FOOD TAKEN INTERNALLY 07/07/2008 BRANDY HAMMOND, SAGAR Miranda 693.1 DERMATITIS DUE TO FOOD TAKEN INTERNALLY 07/07/2008 WILKINS DO, BALJEET K 693.1 DERMATITIS DUE TO FOOD TAKEN INTERNALLY 07/07/2008 WILKINS DO, BALJEET K 693.1 DERMATITIS DUE TO FOOD TAKEN INTERNALLY 07/07/2008 WILKINS DO, BALJEET K 693.1 DERMATITIS DUE TO FOOD TAKEN INTERNALLY 11/19/2008 RAIN HAMMOND, WILL 995.3 ALLERGY UNSPECIFIED NOT ELSEWHERE CLASSIFIED 11/19/2008 PAZ YODER DDS 995.3 ALLERGY UNSPECIFIED NOT ELSEWHERE CLASSIFIED 11/19/2008 995.3 ALLERGY UNSPECIFIED NOT ELSEWHERE CLASSIFIED 11/19/2008 995.3 ALLERGY UNSPECIFIED NOT ELSEWHERE CLASSIFIED 11/19/2008 995.3 ALLERGY UNSPECIFIED NOT ELSEWHERE CLASSIFIED 11/19/2008 995.3 ALLERGY UNSPECIFIED NOT ELSEWHERE CLASSIFIED 11/19/2008 995.3 ALLERGY UNSPECIFIED NOT ELSEWHERE CLASSIFIED 11/19/2008 995.3 ALLERGY UNSPECIFIED NOT ELSEWHERE CLASSIFIED 11/19/2008 995.3 ALLERGY UNSPECIFIED NOT ELSEWHERE CLASSIFIED 11/19/2008 995.3 ALLERGY UNSPECIFIED NOT ELSEWHERE CLASSIFIED 11/19/2008 995.3 ALLERGY UNSPECIFIED NOT ELSEWHERE CLASSIFIED 11/19/2008 995.3 ALLERGY UNSPECIFIED NOT ELSEWHERE CLASSIFIED 11/19/2008 995.3 ALLERGY UNSPECIFIED NOT ELSEWHERE CLASSIFIED 11/19/2008 995.3 ALLERGY UNSPECIFIED NOT ELSEWHERE CLASSIFIED 11/19/2008 995.3 ALLERGY UNSPECIFIED NOT ELSEWHERE CLASSIFIED 11/19/2008 995.3 ALLERGY UNSPECIFIED NOT ELSEWHERE CLASSIFIED 11/19/2008 WILKINS DO, BALJEET K 995.3 ALLERGY UNSPECIFIED NOT ELSEWHERE CLASSIFIED 11/19/2008 WILKINS DO, BALJEET K 995.3 ALLERGY UNSPECIFIED NOT ELSEWHERE CLASSIFIED 11/19/2008 WILKINS DO, BALJEET K 995.3 ALLERGY UNSPECIFIED NOT ELSEWHERE CLASSIFIED 11/19/2008 WILKINS DO, BALJEET K 995.3 ALLERGY UNSPECIFIED NOT ELSEWHERE CLASSIFIED 11/19/2008 WILKINS DO, BALJEET K 995.3 ALLERGY UNSPECIFIED NOT ELSEWHERE CLASSIFIED 11/19/2008 WILKINS DO, BALJEET K 995.3 ALLERGY UNSPECIFIED NOT ELSEWHERE CLASSIFIED 11/19/2008 WILKINS DO, BALJEET K 995.3 ALLERGY UNSPECIFIED NOT ELSEWHERE CLASSIFIED 11/19/2008 WILKINS DO, BALJEET K 995.3 ALLERGY UNSPECIFIED NOT ELSEWHERE CLASSIFIED 11/19/2008 WILKINS DO, BALJEET K 995.3 ALLERGY UNSPECIFIED NOT ELSEWHERE CLASSIFIED 11/19/2008 WILKINS DO, BALJEET K 995.3 ALLERGY UNSPECIFIED NOT ELSEWHERE CLASSIFIED 11/19/2008 WILKINS DO, BALJEET K 995.3 ALLERGY UNSPECIFIED NOT ELSEWHERE CLASSIFIED 11/19/2008 WILKINS DO, BALJEET K 995.3 ALLERGY UNSPECIFIED NOT ELSEWHERE CLASSIFIED 11/19/2008 WILKINS DO, BALJEET K 995.3 ALLERGY UNSPECIFIED NOT ELSEWHERE CLASSIFIED 11/19/2008 WILKINS DO, BALJEET K 995.3 ALLERGY UNSPECIFIED NOT ELSEWHERE CLASSIFIED 11/19/2008 WILKINS DO, BALJEET K 995.3 ALLERGY UNSPECIFIED NOT ELSEWHERE CLASSIFIED 11/19/2008 WILKINS DO, BALJEET K 995.3 ALLERGY UNSPECIFIED NOT ELSEWHERE CLASSIFIED 11/19/2008 WILKINS DO, BALJEET K 995.3 ALLERGY UNSPECIFIED NOT ELSEWHERE CLASSIFIED 11/19/2008 WILKINS DO, BALJEET K 995.3 ALLERGY UNSPECIFIED NOT ELSEWHERE CLASSIFIED 11/19/2008 WILKINS DO, BALJEET K 995.3 ALLERGY UNSPECIFIED NOT ELSEWHERE CLASSIFIED 11/19/2008 WILKINS DO, BALJEET K 995.3 ALLERGY UNSPECIFIED NOT ELSEWHERE CLASSIFIED 11/19/2008 WILKINS DO, BALJEET K 995.3 ALLERGY UNSPECIFIED NOT ELSEWHERE CLASSIFIED 11/19/2008 WILKINS DO, BALJEET K 995.3 ALLERGY UNSPECIFIED NOT ELSEWHERE CLASSIFIED 11/19/2008 WILKINS DO, BALJEET K 995.3 ALLERGY UNSPECIFIED NOT ELSEWHERE CLASSIFIED 11/19/2008 MADL 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, CHERRIE L 995.3 ALLERGY UNSPECIFIED NOT ELSEWHERE CLASSIFIED 11/19/2008 WILKINS DO, BALJEET K 995.3 ALLERGY UNSPECIFIED NOT ELSEWHERE CLASSIFIED 11/19/2008 WILKINS DO, BALJEET K 995.3 ALLERGY UNSPECIFIED NOT ELSEWHERE CLASSIFIED 11/19/2008 ESTHELA ARMENDARIZ, HUMBERTO Newton 995.3 ALLERGY UNSPECIFIED NOT ELSEWHERE CLASSIFIED 11/19/2008 WILKINS DO, BALJEET K 995.3 ALLERGY UNSPECIFIED NOT ELSEWHERE CLASSIFIED 11/19/2008 WILKINS DO, BALJEET K 995.3 ALLERGY UNSPECIFIED NOT ELSEWHERE CLASSIFIED 11/19/2008 WILKINS DO, BALJEET K 995.3 ALLERGY UNSPECIFIED NOT ELSEWHERE CLASSIFIED 11/19/2008 PASHAL 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, CHERRIE L 995.3 ALLERGY UNSPECIFIED NOT ELSEWHERE CLASSIFIED 11/19/2008 BRANDY HAMMOND, SAGAR Miranda 995.3 ALLERGY UNSPECIFIED NOT ELSEWHERE CLASSIFIED 11/19/2008 WILKINS DO, BALJEET K 995.3 ALLERGY UNSPECIFIED NOT ELSEWHERE CLASSIFIED 11/19/2008 WILKINS DO, BALJEET K 995.3 ALLERGY UNSPECIFIED NOT ELSEWHERE CLASSIFIED 11/19/2008 WILKINS DO, BALJEET K 995.3 ALLERGY UNSPECIFIED NOT ELSEWHERE CLASSIFIED 01/29/2009 RAIN HAMMOND, WILL V22.1 PC OTHER NORMAL 01/29/2009 BEBA ARMENDARIZ, PAZ Travis V22.1 PC OTHER NORMAL 01/29/2009 V22.1 PC OTHER NORMAL 01/29/2009 V22.1 PC OTHER NORMAL 01/29/2009 V22.1 PC OTHER NORMAL 01/29/2009 V22.1 PC OTHER NORMAL 01/29/2009 V22.1 PC OTHER NORMAL 01/29/2009 V22.1 PC OTHER NORMAL 01/29/2009 V22.1 PC OTHER NORMAL 01/29/2009 V22.1 PC OTHER NORMAL 01/29/2009 V22.1 PC OTHER NORMAL 01/29/2009 V22.1 PC OTHER NORMAL 01/29/2009 V22.1 PC OTHER NORMAL 01/29/2009 V22.1 PC OTHER NORMAL 01/29/2009 V22.1 PC OTHER NORMAL 01/29/2009 V22.1 PC OTHER NORMAL 01/29/2009 WILKINS DO, BALJEET K V22.1 PC OTHER NORMAL 01/29/2009 WILKINS DO, BALJEET K V22.1 PC OTHER NORMAL 01/29/2009 WILKINS DO, BALJEET K V22.1 PC OTHER NORMAL 01/29/2009 WILKINS DO, BALJEET K V22.1 PC OTHER NORMAL 01/29/2009 WILKINS DO, BALJEET K V22.1 PC OTHER NORMAL 01/29/2009 WILKINS DO, BALJEET K V22.1 PC OTHER NORMAL 01/29/2009 WILKINS DO, BALJEET K V22.1 PC OTHER NORMAL 01/29/2009 WILKINS DO, BALJEET K V22.1 PC OTHER NORMAL 01/29/2009 WILKINS DO, BALJEET K V22.1 PC OTHER NORMAL 01/29/2009 WILKINS DO, BALJEET K V22.1 PC OTHER NORMAL 01/29/2009 WILKINS DO, BALJEET K V22.1 PC OTHER NORMAL 01/29/2009 WILKINS DO, BALJEET K V22.1 PC OTHER NORMAL 01/29/2009 WILKINS DO, BALJEET K V22.1 PC OTHER NORMAL 01/29/2009 WILKINS DO, BALJEET K V22.1 PC OTHER NORMAL 01/29/2009 WILKINS DO, BALJEET K V22.1 PC OTHER NORMAL 01/29/2009 WILKINS DO, BALJEET K V22.1 PC OTHER NORMAL 01/29/2009 WILKINS DO, BALJEET K V22.1 PC OTHER NORMAL 01/29/2009 WILKINS DO, BALJEET K V22.1 PC OTHER NORMAL 01/29/2009 WILKINS DO, BALJEET K V22.1 PC OTHER NORMAL 01/29/2009 WILKINS DO, BALJEET K V22.1 PC OTHER NORMAL 01/29/2009 WILKINS DO, BALJEET K V22.1 PC OTHER NORMAL 01/29/2009 WILKINS DO, BALJEET K V22.1 PC OTHER NORMAL 01/29/2009 WILKINS DO, BALJEET K V22.1 PC OTHER NORMAL 01/29/2009 MADL 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, CHERRIE L V22.1 PC OTHER NORMAL 01/29/2009 WILKINS DO, BALJEET K V22.1 PC OTHER NORMAL 01/29/2009 WILKINS DO, BALJEET K V22.1 PC OTHER NORMAL 01/29/2009 ESTHELA DDS, HUMBERTO D V22.1 PC OTHER NORMAL 01/29/2009 WILKINS DO, BALJEET K V22.1 PC OTHER NORMAL 01/29/2009 WILKINS DO, BALJEET K V22.1 PC OTHER NORMAL 01/29/2009 WILKINS DO, BALJEET K V22.1 PC OTHER NORMAL 01/29/2009 CHERRIE VELEZ APRN V22.1 PC OTHER NORMAL 01/29/2009 BRANDY HAMMOND, SAGAR Miranda V22.1 PC OTHER NORMAL 01/29/2009 WILKINS DO, BALJEET K V22.1 PC OTHER NORMAL 01/29/2009 WILKINS DO, BALJEET K V22.1 PC OTHER NORMAL 01/29/2009 WILKINS DO, BALJEET K V22.1 PC OTHER NORMAL 04/08/2009 RAIN HAMMOND, WILL 599.0 URINARY TRACT INFECTION 04/08/2009 BEBA ARMENDARIZ, PAZ B 599.0 URINARY TRACT INFECTION 04/08/2009 599.0 URINARY TRACT INFECTION 04/08/2009 599.0 URINARY TRACT INFECTION 04/08/2009 599.0 URINARY TRACT INFECTION 04/08/2009 599.0 URINARY TRACT INFECTION 04/08/2009 599.0 URINARY TRACT INFECTION 04/08/2009 599.0 URINARY TRACT INFECTION 04/08/2009 599.0 URINARY TRACT INFECTION 04/08/2009 599.0 URINARY TRACT INFECTION 04/08/2009 599.0 URINARY TRACT INFECTION 04/08/2009 599.0 URINARY TRACT INFECTION 04/08/2009 599.0 URINARY TRACT INFECTION 04/08/2009 599.0 URINARY TRACT INFECTION 04/08/2009 599.0 URINARY TRACT INFECTION 04/08/2009 599.0 URINARY TRACT INFECTION 04/08/2009 WILKINS DO, BALJEET K 599.0 URINARY TRACT INFECTION 04/08/2009 WILKINS DO, BALJEET K 599.0 URINARY TRACT INFECTION 04/08/2009 WILKINS DO, BALJEET K 599.0 URINARY TRACT INFECTION 04/08/2009 WILKINS DO, BALJEET K 599.0 URINARY TRACT INFECTION 04/08/2009 WILKINS DO, BALJEET K 599.0 URINARY TRACT INFECTION 04/08/2009 WILKINS DO, BALJEET K 599.0 URINARY TRACT INFECTION 04/08/2009 WILKINS DO, BALJEET K 599.0 URINARY TRACT INFECTION 04/08/2009 WILKINS DO, BALJEET K 599.0 URINARY TRACT INFECTION 04/08/2009 WILKINS DO, BALJEET K 599.0 URINARY TRACT INFECTION 04/08/2009 WILKINS DO, BALJEET K 599.0 URINARY TRACT INFECTION 04/08/2009 WILKINS DO, BALJEET K 599.0 URINARY TRACT INFECTION 04/08/2009 WILKINS DO, BALJEET K 599.0 URINARY TRACT INFECTION 04/08/2009 WILKINS DO, BALJEET K 599.0 URINARY TRACT INFECTION 04/08/2009 WILKINS DO, BALJEET K 599.0 URINARY TRACT INFECTION 04/08/2009 WILKINS DO, BALJEET K 599.0 URINARY TRACT INFECTION 04/08/2009 WILKINS DO, BALJEET K 599.0 URINARY TRACT INFECTION 04/08/2009 WILKINS DO, BALJEET K 599.0 URINARY TRACT INFECTION 04/08/2009 WILKINS DO, BALJEET K 599.0 URINARY TRACT INFECTION 04/08/2009 WILKINS DO, BALJEET K 599.0 URINARY TRACT INFECTION 04/08/2009 WILKINS DO, BALJEET K 599.0 URINARY TRACT INFECTION 04/08/2009 WILKINS DO, BALJEET K 599.0 URINARY TRACT INFECTION 04/08/2009 WILKINS DO, BALJEET K 599.0 URINARY TRACT INFECTION 04/08/2009 WILKINS DO, BALJEET K 599.0 URINARY TRACT INFECTION 04/08/2009 MADL 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, CHERRIE L 599.0 URINARY TRACT INFECTION 04/08/2009 WILKINS DO, BALJEET K 599.0 URINARY TRACT INFECTION 04/08/2009 WILKINS DO, BALJEET K 599.0 URINARY TRACT INFECTION 04/08/2009 ESTHELA CARBAJALS, HUMBERTO D 599.0 URINARY TRACT INFECTION 04/08/2009 WILKINS DO, BALJEET K 599.0 URINARY TRACT INFECTION 04/08/2009 WILKINS DO, BALJEET K 599.0 URINARY TRACT INFECTION 04/08/2009 WILKINS DO, BALJEET K 599.0 URINARY TRACT INFECTION 04/08/2009 MADL 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, CHERRIE L 599.0 URINARY TRACT INFECTION 04/08/2009 SAGAR NAVA MD 599.0 URINARY TRACT INFECTION 04/08/2009 WILKINS DO, BALJEET K 599.0 URINARY TRACT INFECTION 04/08/2009 WILKINS DO, BALJEET K 599.0 URINARY TRACT INFECTION 04/08/2009 WILKINS DO, BALJEET K 599.0 URINARY TRACT INFECTION 04/14/2009 RAIN HAMMOND, WILL V74.1 SCREENING EXAMINATION FOR PULMONARY TUBERCULOSIS 04/14/2009 BEBA ARMENDARIZ, PAZ Travis V74.1 SCREENING EXAMINATION FOR PULMONARY TUBERCULOSIS 04/14/2009 V74.1 SCREENING EXAMINATION FOR PULMONARY TUBERCULOSIS 04/14/2009 V74.1 SCREENING EXAMINATION FOR PULMONARY TUBERCULOSIS 04/14/2009 V74.1 SCREENING EXAMINATION FOR PULMONARY TUBERCULOSIS 04/14/2009 V74.1 SCREENING EXAMINATION FOR PULMONARY TUBERCULOSIS 04/14/2009 V74.1 SCREENING EXAMINATION FOR PULMONARY TUBERCULOSIS 04/14/2009 V74.1 SCREENING EXAMINATION FOR PULMONARY TUBERCULOSIS 04/14/2009 V74.1 SCREENING EXAMINATION FOR PULMONARY TUBERCULOSIS 04/14/2009 V74.1 SCREENING EXAMINATION FOR PULMONARY TUBERCULOSIS 04/14/2009 V74.1 SCREENING EXAMINATION FOR PULMONARY TUBERCULOSIS 04/14/2009 V74.1 SCREENING EXAMINATION FOR PULMONARY TUBERCULOSIS 04/14/2009 V74.1 SCREENING EXAMINATION FOR PULMONARY TUBERCULOSIS 04/14/2009 V74.1 SCREENING EXAMINATION FOR PULMONARY TUBERCULOSIS 04/14/2009 V74.1 SCREENING EXAMINATION FOR PULMONARY TUBERCULOSIS 04/14/2009 V74.1 SCREENING EXAMINATION FOR PULMONARY TUBERCULOSIS 04/14/2009 WILKINS DO, BALJEET K V74.1 SCREENING EXAMINATION FOR PULMONARY TUBERCULOSIS 04/14/2009 WILKINS DO, BALJEET K V74.1 SCREENING EXAMINATION FOR PULMONARY TUBERCULOSIS 04/14/2009 WILKINS DO, BALJEET K V74.1 SCREENING EXAMINATION FOR PULMONARY TUBERCULOSIS 04/14/2009 WILKINS DO, BALJEET K V74.1 SCREENING EXAMINATION FOR PULMONARY TUBERCULOSIS 04/14/2009 WILKINS DO, BALJEET K V74.1 SCREENING EXAMINATION FOR PULMONARY TUBERCULOSIS 04/14/2009 WILKINS DO, BALJEET K V74.1 SCREENING EXAMINATION FOR PULMONARY TUBERCULOSIS 04/14/2009 WILKINS DO, BALJEET K V74.1 SCREENING EXAMINATION FOR PULMONARY TUBERCULOSIS 04/14/2009 WILKINS DO, BALJETE K V74.1 SCREENING EXAMINATION FOR PULMONARY TUBERCULOSIS 04/14/2009 WILKINS DO, BALJEET K V74.1 SCREENING EXAMINATION FOR PULMONARY TUBERCULOSIS 04/14/2009 WILKINS DO, BALJEET K V74.1 SCREENING EXAMINATION FOR PULMONARY TUBERCULOSIS 04/14/2009 WILKINS DO, BALJEET K V74.1 SCREENING EXAMINATION FOR PULMONARY TUBERCULOSIS 04/14/2009 WILKINS DO, BALJEET K V74.1 SCREENING EXAMINATION FOR PULMONARY TUBERCULOSIS 04/14/2009 WILKINS DO, BALJEET K V74.1 SCREENING EXAMINATION FOR PULMONARY TUBERCULOSIS 04/14/2009 WILKINS DO, BALJEET K V74.1 SCREENING EXAMINATION FOR PULMONARY TUBERCULOSIS 04/14/2009 WILKINS DO, BALJEET K V74.1 SCREENING EXAMINATION FOR PULMONARY TUBERCULOSIS 04/14/2009 WILKINS DO, BALJEET K V74.1 SCREENING EXAMINATION FOR PULMONARY TUBERCULOSIS 04/14/2009 WILKINS DO, BALJEET K V74.1 SCREENING EXAMINATION FOR PULMONARY TUBERCULOSIS 04/14/2009 WILKINS DO, BALJEET K V74.1 SCREENING EXAMINATION FOR PULMONARY TUBERCULOSIS 04/14/2009 WILKINS DO, BALJEET K V74.1 SCREENING EXAMINATION FOR PULMONARY TUBERCULOSIS 04/14/2009 WILKINS DO, BALJEET K V74.1 SCREENING EXAMINATION FOR PULMONARY TUBERCULOSIS 04/14/2009 WILKINS DO, BALJEET K V74.1 SCREENING EXAMINATION FOR PULMONARY TUBERCULOSIS 04/14/2009 WILKINS DO, BALJEET K V74.1 SCREENING EXAMINATION FOR PULMONARY TUBERCULOSIS 04/14/2009 WILKINS DO, BALJEET K V74.1 SCREENING EXAMINATION FOR PULMONARY TUBERCULOSIS 04/14/2009 MADL 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, CHERRIE L V74.1 SCREENING EXAMINATION FOR PULMONARY TUBERCULOSIS 04/14/2009 WILKINS DO, BALJEET K V74.1 SCREENING EXAMINATION FOR PULMONARY TUBERCULOSIS 04/14/2009 WILKINS DO, BALJEET K V74.1 SCREENING EXAMINATION FOR PULMONARY TUBERCULOSIS 04/14/2009 ESTHELA ARMENDARIZ, HUMBERTO Newton V74.1 SCREENING EXAMINATION FOR PULMONARY TUBERCULOSIS 04/14/2009 WILKINS DO, BALJEET K V74.1 SCREENING EXAMINATION FOR PULMONARY TUBERCULOSIS 04/14/2009 WILKINS DO, BALJEET K V74.1 SCREENING EXAMINATION FOR PULMONARY TUBERCULOSIS 04/14/2009 WILKINS DO, BALJEET K V74.1 SCREENING EXAMINATION FOR PULMONARY TUBERCULOSIS 04/14/2009 MADL 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, CHERRIE L V74.1 SCREENING EXAMINATION FOR PULMONARY TUBERCULOSIS 04/14/2009 BRANDY HAMMOND, SAGAR Miranda V74.1 SCREENING EXAMINATION FOR PULMONARY TUBERCULOSIS 04/14/2009 WILKINS DO, BALJEET K V74.1 SCREENING EXAMINATION FOR PULMONARY TUBERCULOSIS 04/14/2009 WILKINS DO, BALJEET K V74.1 SCREENING EXAMINATION FOR PULMONARY TUBERCULOSIS 04/14/2009 WILKINS DO, BALJEET K V74.1 SCREENING EXAMINATION FOR PULMONARY TUBERCULOSIS 07/06/2009 Ot 285.1 07/06/2009 Ot 285.9 07/06/2009 Ot 486 07/06/2009 Ot 493.90 07/06/2009 Ot 530.81 07/06/2009 Ot 614.6 07/06/2009 Ot 642.31 07/06/2009 Ot 642.41 07/06/2009 Ot 648.11 07/06/2009 Ot 648.21 07/06/2009 Ot 648.22 07/06/2009 Ot 648.91 07/06/2009 Ot 654.21 07/06/2009 Ot 663.31 07/06/2009 Ot V27.0 08/20/2009 WILL RODRIGEZ MD 285.9 ANEMIA UNSPECIFIED 08/20/2009 PAZ YODER DDS 285.9 ANEMIA UNSPECIFIED 08/20/2009 285.9 ANEMIA UNSPECIFIED 08/20/2009 285.9 ANEMIA UNSPECIFIED 08/20/2009 285.9 ANEMIA UNSPECIFIED 08/20/2009 285.9 ANEMIA UNSPECIFIED 08/20/2009 285.9 ANEMIA UNSPECIFIED 08/20/2009 285.9 ANEMIA UNSPECIFIED 08/20/2009 285.9 ANEMIA UNSPECIFIED 08/20/2009 285.9 ANEMIA UNSPECIFIED 08/20/2009 285.9 ANEMIA UNSPECIFIED 08/20/2009 285.9 ANEMIA UNSPECIFIED 08/20/2009 285.9 ANEMIA UNSPECIFIED 08/20/2009 285.9 ANEMIA UNSPECIFIED 08/20/2009 285.9 ANEMIA UNSPECIFIED 08/20/2009 285.9 ANEMIA UNSPECIFIED 08/20/2009 WILKINS DO, BALJEET K 285.9 ANEMIA UNSPECIFIED 08/20/2009 WILKINS DO, BALJEET K 285.9 ANEMIA UNSPECIFIED 08/20/2009 WILKINS DO, BALJEET K 285.9 ANEMIA UNSPECIFIED 08/20/2009 WILKINS DO, BALJEET K 285.9 ANEMIA UNSPECIFIED 08/20/2009 WILKINS DO, BALJEET K 285.9 ANEMIA UNSPECIFIED 08/20/2009 WLIKINS DO, BALJEET K 285.9 ANEMIA UNSPECIFIED 08/20/2009 WILKINS DO, BALJEET K 285.9 ANEMIA UNSPECIFIED 08/20/2009 WILKINS DO, BALJEET K 285.9 ANEMIA UNSPECIFIED 08/20/2009 WILKINS DO, BALJEET K 285.9 ANEMIA UNSPECIFIED 08/20/2009 WILKINS DO, BALJEET K 285.9 ANEMIA UNSPECIFIED 08/20/2009 WILKINS DO, BALJEET K 285.9 ANEMIA UNSPECIFIED 08/20/2009 WILKINS DO, BALJEET K 285.9 ANEMIA UNSPECIFIED 08/20/2009 WILKINS DO, BALJEET K 285.9 ANEMIA UNSPECIFIED 08/20/2009 WILKINS DO, BALJEET K 285.9 ANEMIA UNSPECIFIED 08/20/2009 WILKINS DO, BALJEET K 285.9 ANEMIA UNSPECIFIED 08/20/2009 WILKINS DO, BALJEET K 285.9 ANEMIA UNSPECIFIED 08/20/2009 WILKINS DO, BALJEET K 285.9 ANEMIA UNSPECIFIED 08/20/2009 WILKINS DO, BALJEET K 285.9 ANEMIA UNSPECIFIED 08/20/2009 WILKINS DO, BALJEET K 285.9 ANEMIA UNSPECIFIED 08/20/2009 WILKINS DO, BALJEET K 285.9 ANEMIA UNSPECIFIED 08/20/2009 WILKINS DO, BALJEET K 285.9 ANEMIA UNSPECIFIED 08/20/2009 WILKINS DO, BALJEET K 285.9 ANEMIA UNSPECIFIED 08/20/2009 WILKINS DO, BALJEET K 285.9 ANEMIA UNSPECIFIED 08/20/2009 AGUSTIN DODD, CHERRIE L 285.9 ANEMIA UNSPECIFIED 08/20/2009 WILKINS DO, BALJEET K 285.9 ANEMIA UNSPECIFIED 08/20/2009 WILKINS DO, BALJEET K 285.9 ANEMIA UNSPECIFIED 08/20/2009 ESTHELA CARBAJALS, HUMBERTO Newton 285.9 ANEMIA UNSPECIFIED 08/20/2009 WILKINS DO, BALJEET K 285.9 ANEMIA UNSPECIFIED 08/20/2009 WILKINS DO, BALJEET K 285.9 ANEMIA UNSPECIFIED 08/20/2009 WILKINS DO, BALJEET K 285.9 ANEMIA UNSPECIFIED 08/20/2009 CHERRIE VELEZ APRN L 285.9 ANEMIA UNSPECIFIED 08/20/2009 BRANDY HAMMOND, SAGAR Miranda 285.9 ANEMIA UNSPECIFIED 08/20/2009 WILKINS DO, BALJEET K 285.9 ANEMIA UNSPECIFIED 08/20/2009 WILKINS DO, BALJEET K 285.9 ANEMIA UNSPECIFIED 08/20/2009 WILKINS DO, BALJEET K 285.9 ANEMIA UNSPECIFIED 03/03/2011 RAIN HAMMOND, WILL V04.81 FLU SHOT 03/03/2011 PAZ YODER DDS V04.81 FLU SHOT 03/03/2011 V04.81 FLU SHOT 03/03/2011 V04.81 FLU SHOT 03/03/2011 V04.81 FLU SHOT 03/03/2011 V04.81 FLU SHOT 03/03/2011 V04.81 FLU SHOT 03/03/2011 V04.81 FLU SHOT 03/03/2011 V04.81 FLU SHOT 03/03/2011 V04.81 FLU SHOT 03/03/2011 V04.81 FLU SHOT 03/03/2011 V04.81 FLU SHOT 03/03/2011 V04.81 FLU SHOT 03/03/2011 V04.81 FLU SHOT 03/03/2011 V04.81 FLU SHOT 03/03/2011 V04.81 FLU SHOT 03/03/2011 WILKINS DO, BALJEET K V04.81 FLU SHOT 03/03/2011 WILKINS DO, BALJEET K V04.81 FLU SHOT 03/03/2011 WILKINS DO, BALJEET K V04.81 FLU SHOT 03/03/2011 WILKINS DO, BALJEET K V04.81 FLU SHOT 03/03/2011 WILKINS DO, BALJEET K V04.81 FLU SHOT 03/03/2011 WILKINS DO, BALJEET K V04.81 FLU SHOT 03/03/2011 WILKINS DO, BALJEET K V04.81 FLU SHOT 03/03/2011 WILKINS DO, BALJEET K V04.81 FLU SHOT 03/03/2011 WILKINS DO, BALJEET K V04.81 FLU SHOT 03/03/2011 WILKINS DO, BALJEET K V04.81 FLU SHOT 03/03/2011 WILKINS DO, BALJEET K V04.81 FLU SHOT 03/03/2011 WILKINS DO, BALJEET K V04.81 FLU SHOT 03/03/2011 WILKINS DO, BALJEET K V04.81 FLU SHOT 03/03/2011 WILKINS DO, BALJEET K V04.81 FLU SHOT 03/03/2011 WILKINS DO, BALJEET K V04.81 FLU SHOT 03/03/2011 WILKINS DO, BALJEET K V04.81 FLU SHOT 03/03/2011 WILKINS DO, BALJEET K V04.81 FLU SHOT 03/03/2011 WILKINS DO, BALJEET K V04.81 FLU SHOT 03/03/2011 WILKINS DO, BALJEET K V04.81 FLU SHOT 03/03/2011 WILKINS DO, BALJEET K V04.81 FLU SHOT 03/03/2011 WILKINS DO, BALJEET K V04.81 FLU SHOT 03/03/2011 WILKINS DO, BALJEET K V04.81 FLU SHOT 03/03/2011 WILKINS DO, BALJEET K V04.81 FLU SHOT 03/03/2011 MADL 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, CHERRIE L V04.81 FLU SHOT 03/03/2011 WILKINS DO, BALJEET K V04.81 FLU SHOT 03/03/2011 WILKINS DO, BALJEET K V04.81 FLU SHOT 03/03/2011 ESTHELA DDS, HUMBERTO Newton V04.81 FLU SHOT 03/03/2011 WILKINS DO, BALJEET K V04.81 FLU SHOT 03/03/2011 WILKINS DO, BALJEET K V04.81 FLU SHOT 03/03/2011 WILKINS DO, BALJEET K V04.81 FLU SHOT 03/03/2011 MADL 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, CHERRIE L V04.81 FLU SHOT 03/03/2011 BRANDY HAMMOND, SAGAR Miranda V04.81 FLU SHOT 03/03/2011 WILKINS DO, BALJEET K V04.81 FLU SHOT 03/03/2011 WILKINS DO, BALJEET K V04.81 FLU SHOT 03/03/2011 WILKINS DO, BALJEET K V04.81 FLU SHOT 08/17/2011 WILL RODRIGEZ MD 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 08/17/2011 WILL RODRIGEZ MD 272.4 HYPERLIPIDEMIA 08/17/2011 BEBA ARMENDARIZ, PAZ Travis 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 08/17/2011 PAZ YODER DDS 272.4 HYPERLIPIDEMIA 08/17/2011 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 08/17/2011 272.4 HYPERLIPIDEMIA 08/17/2011 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 08/17/2011 272.4 HYPERLIPIDEMIA 08/17/2011 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 08/17/2011 272.4 HYPERLIPIDEMIA 08/17/2011 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 08/17/2011 272.4 HYPERLIPIDEMIA 08/17/2011 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 08/17/2011 272.4 HYPERLIPIDEMIA 08/17/2011 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 08/17/2011 272.4 HYPERLIPIDEMIA 08/17/2011 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 08/17/2011 272.4 HYPERLIPIDEMIA 08/17/2011 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 08/17/2011 272.4 HYPERLIPIDEMIA 08/17/2011 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 08/17/2011 272.4 HYPERLIPIDEMIA 08/17/2011 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 08/17/2011 272.4 HYPERLIPIDEMIA 08/17/2011 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 08/17/2011 272.4 HYPERLIPIDEMIA 08/17/2011 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 08/17/2011 272.4 HYPERLIPIDEMIA 08/17/2011 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 08/17/2011 272.4 HYPERLIPIDEMIA 08/17/2011 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 08/17/2011 272.4 HYPERLIPIDEMIA 08/17/2011 WILKINS DO, BALJEET K 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 08/17/2011 WILKINS DO, BALJEET K 272.4 HYPERLIPIDEMIA 08/17/2011 WILKINS DO, BALJEET K 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 08/17/2011 WILKINS DO, BALJEET K 272.4 HYPERLIPIDEMIA 08/17/2011 WILKINS DO, BALJEET K 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 08/17/2011 WILKINS DO, BALJEET K 272.4 HYPERLIPIDEMIA 08/17/2011 WILKINS DO, BALJEET K 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 08/17/2011 WILKINS DO, BALJEET K 272.4 HYPERLIPIDEMIA 08/17/2011 WILKINS DO, BALJEET K 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 08/17/2011 WILKINS DO, BALJEET K 272.4 HYPERLIPIDEMIA 08/17/2011 WILKINS DO, BALJEET K 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 08/17/2011 WILKINS DO, BALJEET K 272.4 HYPERLIPIDEMIA 08/17/2011 WILKINS DO, BALJEET K 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 08/17/2011 WILKINS DO, BALJEET K 272.4 HYPERLIPIDEMIA 08/17/2011 WILKINS DO, BALJEET K 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 08/17/2011 WILKINS DO, BALJEET K 272.4 HYPERLIPIDEMIA 08/17/2011 WILKINS DO, BALJEET K 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 08/17/2011 WILKINS DO, BALJEET K 272.4 HYPERLIPIDEMIA 08/17/2011 WILKINS DO, BALJEET K 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 08/17/2011 WILKINS DO, BALJEET K 272.4 HYPERLIPIDEMIA 08/17/2011 WILKINS DO, BALJEET K 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 08/17/2011 WILKINS DO, BALJEET K 272.4 HYPERLIPIDEMIA 08/17/2011 WILKINS DO, BALJEET K 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 08/17/2011 WILKINS DO, BALJEET K 272.4 HYPERLIPIDEMIA 08/17/2011 WILKINS DO, BALJEET K 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 08/17/2011 WILKINS DO, BALJEET K 272.4 HYPERLIPIDEMIA 08/17/2011 WILKINS DO, BALJEET K 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 08/17/2011 WILKINS DO, BALJEET K 272.4 HYPERLIPIDEMIA 08/17/2011 WILKINS DO, BALJEET K 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 08/17/2011 WILKINS DO, BALJEET K 272.4 HYPERLIPIDEMIA 08/17/2011 WILKINS DO, BALJEET K 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 08/17/2011 WILKINS DO, BALJEET K 272.4 HYPERLIPIDEMIA 08/17/2011 WILKINS DO, BALJEET K 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 08/17/2011 WILKINS DO, BALJEET K 272.4 HYPERLIPIDEMIA 08/17/2011 WILKINS DO, BALJEET K 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 08/17/2011 WILKINS DO, BALJEET K 272.4 HYPERLIPIDEMIA 08/17/2011 WILKINS DO, BALJEET K 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 08/17/2011 WILKINS DO, BALJEET K 272.4 HYPERLIPIDEMIA 08/17/2011 WILKINS DO, BALJEET K 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 08/17/2011 WILKINS DO, BALJEET K 272.4 HYPERLIPIDEMIA 08/17/2011 WILKINS DO, BALJEET K 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 08/17/2011 WILKINS DO, BALJEET K 272.4 HYPERLIPIDEMIA 08/17/2011 WILKINS DO, BALJEET K 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 08/17/2011 WILKINS DO, BALJEET K 272.4 HYPERLIPIDEMIA 08/17/2011 WILKINS DO, BALJEET K 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 08/17/2011 WILKINS DO, BALJEET K 272.4 HYPERLIPIDEMIA 08/17/2011 MADL 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, CHERRIE L 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 08/17/2011 MADL 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, CHERRIE L 272.4 HYPERLIPIDEMIA 08/17/2011 WILKINS DO, BALJEET K 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 08/17/2011 WILKINS DO, BALJEET K 272.4 HYPERLIPIDEMIA 08/17/2011 WILKINS DO, BALJEET K 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 08/17/2011 WILKINS DO, BALJEET K 272.4 HYPERLIPIDEMIA 08/17/2011 WHITE DDS, HUMBERTO D 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 08/17/2011 WHITE DDS, HUMBERTO D 272.4 HYPERLIPIDEMIA 08/17/2011 WILKINS DO, BALJEET K 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 08/17/2011 WILKINS DO, BALJEET K 272.4 HYPERLIPIDEMIA 08/17/2011 WILKINS DO, BALJEET K 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 08/17/2011 WILKINS DO, BALJEET K 272.4 HYPERLIPIDEMIA 08/17/2011 WILKINS DO, BALJEET K 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 08/17/2011 WILKINS DO, BALJEET K 272.4 HYPERLIPIDEMIA 08/17/2011 MADL 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, CHERRIE L 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 08/17/2011 MADL 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, CHERRIE L 272.4 HYPERLIPIDEMIA 08/17/2011 BRANDY HAMMOND, SAGAR N 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 08/17/2011 SAGAR NAVA MD N 272.4 HYPERLIPIDEMIA 08/17/2011 WILKINS DO, BALJEET K 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 08/17/2011 WILKINS DO, BALJEET K 272.4 HYPERLIPIDEMIA 08/17/2011 WILKINS DO, BALJEET K 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 08/17/2011 WILKINS DO, BALJEET K 272.4 HYPERLIPIDEMIA 08/17/2011 WILKINS DO, BALJEET K 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 08/17/2011 WILKINS DO, BALJEET K 272.4 HYPERLIPIDEMIA 04/10/2012 WILL RODRIGEZ MD 493.92 ASTHMA WITH ACUTE EXACERBATION 04/10/2012 PAZ YODER DDS 493.92 ASTHMA WITH ACUTE EXACERBATION 04/10/2012 493.92 ASTHMA WITH ACUTE EXACERBATION 04/10/2012 493.92 ASTHMA WITH ACUTE EXACERBATION 04/10/2012 493.92 ASTHMA WITH ACUTE EXACERBATION 04/10/2012 493.92 ASTHMA WITH ACUTE EXACERBATION 04/10/2012 493.92 ASTHMA WITH ACUTE EXACERBATION 04/10/2012 493.92 ASTHMA WITH ACUTE EXACERBATION 04/10/2012 493.92 ASTHMA WITH ACUTE EXACERBATION 04/10/2012 493.92 ASTHMA WITH ACUTE EXACERBATION 04/10/2012 493.92 ASTHMA WITH ACUTE EXACERBATION 04/10/2012 493.92 ASTHMA WITH ACUTE EXACERBATION 04/10/2012 493.92 ASTHMA WITH ACUTE EXACERBATION 04/10/2012 493.92 ASTHMA WITH ACUTE EXACERBATION 04/10/2012 493.92 ASTHMA WITH ACUTE EXACERBATION 04/10/2012 493.92 ASTHMA WITH ACUTE EXACERBATION 04/10/2012 WILKINS DO BALJEET K 493.92 ASTHMA WITH ACUTE EXACERBATION 04/10/2012 WILKINS DO BALJEET K 493.92 ASTHMA WITH ACUTE EXACERBATION 04/10/2012 WILKINS DO BALJEET K 493.92 ASTHMA WITH ACUTE EXACERBATION 04/10/2012 WILKINS DO BALJEET K 493.92 ASTHMA WITH ACUTE EXACERBATION 04/10/2012 WILKINS DO, BALJEET K 493.92 ASTHMA WITH ACUTE EXACERBATION 04/10/2012 WILKINS DO, BALJEET K 493.92 ASTHMA WITH ACUTE EXACERBATION 04/10/2012 WILKINS DO, BALJEET K 493.92 ASTHMA WITH ACUTE EXACERBATION 04/10/2012 WILKINS DO, BALJEET K 493.92 ASTHMA WITH ACUTE EXACERBATION 04/10/2012 WILKINS DO, BALJEET K 493.92 ASTHMA WITH ACUTE EXACERBATION 04/10/2012 WILKINS DO, BALJEET K 493.92 ASTHMA WITH ACUTE EXACERBATION 04/10/2012 WILKINS DO, BALJEET K 493.92 ASTHMA WITH ACUTE EXACERBATION 04/10/2012 WILKINS DO, BALJEET K 493.92 ASTHMA WITH ACUTE EXACERBATION 04/10/2012 WILKINS DO, BALJEET K 493.92 ASTHMA WITH ACUTE EXACERBATION 04/10/2012 WILKINS DO, BALJEET K 493.92 ASTHMA WITH ACUTE EXACERBATION 04/10/2012 WILKINS DO, BALJEET K 493.92 ASTHMA WITH ACUTE EXACERBATION 04/10/2012 WILKINS DO, BALJEET K 493.92 ASTHMA WITH ACUTE EXACERBATION 04/10/2012 WILKINS DO, BALJEET K 493.92 ASTHMA WITH ACUTE EXACERBATION 04/10/2012 WILKINS DO, BLAJEET K 493.92 ASTHMA WITH ACUTE EXACERBATION 04/10/2012 WILKINS DO, BALJEET K 493.92 ASTHMA WITH ACUTE EXACERBATION 04/10/2012 WILKINS DO, BALJEET K 493.92 ASTHMA WITH ACUTE EXACERBATION 04/10/2012 WILKINS DO, BALJEET K 493.92 ASTHMA WITH ACUTE EXACERBATION 04/10/2012 WILKINS DO, BALJEET K 493.92 ASTHMA WITH ACUTE EXACERBATION 04/10/2012 WILKINS DO, BALJEET K 493.92 ASTHMA WITH ACUTE EXACERBATION 04/10/2012 AGUSTIN 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, CHERRIE L 493.92 ASTHMA WITH ACUTE EXACERBATION 04/10/2012 WILKINS DO, BALJEET K 493.92 ASTHMA WITH ACUTE EXACERBATION 04/10/2012 WILKINS DO, BALJEET K 493.92 ASTHMA WITH ACUTE EXACERBATION 04/10/2012 HUMBERTO PROCTOR DDS 493.92 ASTHMA WITH ACUTE EXACERBATION 04/10/2012 WILKINS DO, BALJEET K 493.92 ASTHMA WITH ACUTE EXACERBATION 04/10/2012 WILIKNS DO, BALJEET K 493.92 ASTHMA WITH ACUTE EXACERBATION 04/10/2012 WILKINS DO, BALJEET K 493.92 ASTHMA WITH ACUTE EXACERBATION 04/10/2012 MADL 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, CHERRIE L 493.92 ASTHMA WITH ACUTE EXACERBATION 04/10/2012 BRANDY MD, SAGAR N 493.92 ASTHMA WITH ACUTE EXACERBATION 04/10/2012 WILKINS DO, BALJEET K 493.92 ASTHMA WITH ACUTE EXACERBATION 04/10/2012 WILKINS DO, BALJEET K 493.92 ASTHMA WITH ACUTE EXACERBATION 04/10/2012 WILKINS DO, BALJEET K 493.92 ASTHMA WITH ACUTE EXACERBATION 07/30/2012 Ot 493.90 07/30/2012 Ot 799.02 12/26/2012 788.41 URINARY FREQUENCY 12/26/2012 788.41 URINARY FREQUENCY 12/26/2012 788.41 URINARY FREQUENCY 12/26/2012 788.41 URINARY FREQUENCY 12/26/2012 788.41 URINARY FREQUENCY 12/26/2012 788.41 URINARY FREQUENCY 12/26/2012 WILKINS DO, BALJEET K 788.41 URINARY FREQUENCY 12/26/2012 WILKINS DO, BALJEET K 788.41 URINARY FREQUENCY 12/26/2012 WILKINS DO, BALJEET K 788.41 URINARY FREQUENCY 12/26/2012 WILKINS DO, BALJEET K 788.41 URINARY FREQUENCY 12/26/2012 WILKINS DO, BALJEET K 788.41 URINARY FREQUENCY 12/26/2012 WILKINS DO, BALJEET K 788.41 URINARY FREQUENCY 12/26/2012 WILKINS DO, BALJEET K 788.41 URINARY FREQUENCY 12/26/2012 WILKNIS DO, BALJEET K 788.41 URINARY FREQUENCY 12/26/2012 WILKINS DO, BALJEET K 788.41 URINARY FREQUENCY 12/26/2012 WILKINS DO, BALJEET K 788.41 URINARY FREQUENCY 12/26/2012 WILKINS DO, BALJEET K 788.41 URINARY FREQUENCY 12/26/2012 WILKINS DO, BALJEET K 788.41 URINARY FREQUENCY 12/26/2012 WILKINS DO, BALJEET K 788.41 URINARY FREQUENCY 12/26/2012 WILKINS DO, BALJEET K 788.41 URINARY FREQUENCY 12/26/2012 WILKINS DO, BALJEET K 788.41 URINARY FREQUENCY 12/26/2012 WILKINS DO, BALJEET K 788.41 URINARY FREQUENCY 12/26/2012 WILKINS DO, BALJEET K 788.41 URINARY FREQUENCY 12/26/2012 WILKINS DO, BALJEET K 788.41 URINARY FREQUENCY 12/26/2012 WILKINS DO, BALJEET K 788.41 URINARY FREQUENCY 12/26/2012 WILKINS DO, BALJEET K 788.41 URINARY FREQUENCY 12/26/2012 WILKINS DO, BALJEET K 788.41 URINARY FREQUENCY 12/26/2012 WILKINS DO, BALJEET K 788.41 URINARY FREQUENCY 12/26/2012 WILKINS DO, BALJEET K 788.41 URINARY FREQUENCY 12/26/2012 CHERRIE VELEZ APRN 788.41 URINARY FREQUENCY 12/26/2012 WILKINS DO, BALJEET K 788.41 URINARY FREQUENCY 12/26/2012 WILKINS DO, BALJEET K 788.41 URINARY FREQUENCY 12/26/2012 ESTHELA DDS, HUMBERTO Newton 788.41 URINARY FREQUENCY 12/26/2012 WILKINS DO, BALJEET K 788.41 URINARY FREQUENCY 12/26/2012 WILKINS DO, BALJEET K 788.41 URINARY FREQUENCY 12/26/2012 WILKINS DO, BALJEET K 788.41 URINARY FREQUENCY 12/26/2012 CHERRIE VELEZ APRN 788.41 URINARY FREQUENCY 12/26/2012 SAGAR NAVA MD 788.41 URINARY FREQUENCY 12/26/2012 WILKINS DO, BALJEET K 788.41 URINARY FREQUENCY 12/26/2012 WILKINS DO, BALJEET K 788.41 URINARY FREQUENCY 12/26/2012 WILKINS DO, BALJEET K 788.41 URINARY FREQUENCY 05/15/2013 WILKINS DO, BALJEET K V03.7 TETANUS DX 05/15/2013 WILKINS DO, BALJEET K V03.7 TETANUS DX 05/15/2013 WILKINS DO, BALJEET K V03.7 TETANUS DX 05/15/2013 WILKINS DO, BALJEET K V03.7 TETANUS DX 05/15/2013 WILKINS DO, BALJEET K V03.7 TETANUS DX 05/15/2013 WILKINS DO, BALJEET K V03.7 TETANUS DX 05/15/2013 WILKINS DO, BALJEET K V03.7 TETANUS DX 05/15/2013 WILKINS DO, BALJEET K V03.7 TETANUS DX 05/15/2013 WILKINS DO, BALJEET K V03.7 TETANUS DX 05/15/2013 WILKINS DO, BALJEET K V03.7 TETANUS DX 05/15/2013 WILKINS DO, BALJEET K V03.7 TETANUS DX 05/15/2013 WILKINS DO, BALJEET K V03.7 TETANUS DX 05/15/2013 WILKINS DO, BALJEET K V03.7 TETANUS DX 05/15/2013 WILKINS DO, BALJEET K V03.7 TETANUS DX 05/15/2013 WILKINS DO, BALJEET K V03.7 TETANUS DX 05/15/2013 WILKINS DO, BALJEET K V03.7 TETANUS DX 05/15/2013 WILKINS DO, BALJEET K V03.7 TETANUS DX 05/15/2013 WILKINS DO, BALJEET K V03.7 TETANUS DX 05/15/2013 MADL 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, CHERRIE L V03.7 TETANUS DX 05/15/2013 WILKINS DO, BALJEET K V03.7 TETANUS DX 05/15/2013 WILKINS DO, BALJEET K V03.7 TETANUS DX 05/15/2013 ESTHELA ARMENDARIZ, HUMBERTO Newton V03.7 TETANUS DX 05/15/2013 WILKINS DO, BALJEET K V03.7 TETANUS DX 05/15/2013 WILKINS DO, BALJEET K V03.7 TETANUS DX 05/15/2013 WILKINS DO, BALJEET K V03.7 TETANUS DX 05/15/2013 MADL 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, CHERRIE L V03.7 TETANUS DX 05/15/2013 BRANDY HAMMOND, SAGAR Miranda V03.7 TETANUS DX 05/15/2013 WILKINS DO, BALJEET K V03.7 TETANUS DX 05/15/2013 WILKINS DO, BALJEET K V03.7 TETANUS DX 05/15/2013 WILKINS DO, BALJEET K V03.7 TETANUS DX 08/01/2013 MULU HERNANDEZ DO Ot 614.6 FEM PELVIC PERITON ADH-POST-OP/INF 08/01/2013 MULU HERNANDEZ DO Ot 642.31 TRANS HYPERTEN-DELIVERED 08/01/2013 MULU HERNANDEZ DO Ot 648.91 OTH CURR COND-DELIVERED 08/01/2013 MULU HERNANDEZ DO Ot 654.21 PREV DELIVRY W/ OR W/O MENT ANT 08/01/2013 MULU HERNANDEZ DO Ot V27.0 DELIVER-SINGLE LIVEBORN 08/09/2013 MULU HERNANDEZ DO Ot 674.14 DISRUPT [id number] 08/09/2013 MULU HERNANDEZ DO Ot 674.34 OB SURG COMP NEC-POSTPAR 08/13/2013 MULU HERNANDEZ DO Ot 674.14 DISRUPT [id number] 08/13/2013 MULU HERNANDEZ DO Ot 674.34 OB SURG COMP NEC-POSTPAR 08/27/2013 WILKINS DO, BALJEET K 477.0 ALLERGIC RHINITIS DUE TO POLLEN 08/27/2013 WILKINS DO, BALJEET K 477.0 ALLERGIC RHINITIS DUE TO POLLEN 08/27/2013 WILKINS DO, BALJEET K 477.0 ALLERGIC RHINITIS DUE TO POLLEN 08/27/2013 WILKINS DO, BALJEET K 477.0 ALLERGIC RHINITIS DUE TO POLLEN 08/27/2013 WILKINS DO, BALJEET K 477.0 ALLERGIC RHINITIS DUE TO POLLEN 08/27/2013 WILKINS DO, BALJEET K 477.0 ALLERGIC RHINITIS DUE TO POLLEN 08/27/2013 WILKINS DO, BALJEET K 477.0 ALLERGIC RHINITIS DUE TO POLLEN 08/27/2013 WILKINS DO, BALJEET K 477.0 ALLERGIC RHINITIS DUE TO POLLEN 08/27/2013 WILKINS DO, BALJEET K 477.0 ALLERGIC RHINITIS DUE TO POLLEN 08/27/2013 WILKINS DO, BALJEET K 477.0 ALLERGIC RHINITIS DUE TO POLLEN 08/27/2013 WILKINS DO, BALJEET K 477.0 ALLERGIC RHINITIS DUE TO POLLEN 08/27/2013 MADL 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, CHERRIE L 477.0 ALLERGIC RHINITIS DUE TO POLLEN 08/27/2013 WILKINS DO, BALJEET K 477.0 ALLERGIC RHINITIS DUE TO POLLEN 08/27/2013 WILKINS DO, BALJEET K 477.0 ALLERGIC RHINITIS DUE TO POLLEN 08/27/2013 HUMBERTO PROCTOR DDS 477.0 ALLERGIC RHINITIS DUE TO POLLEN 08/27/2013 WILKINS DO, BALJEET K 477.0 ALLERGIC RHINITIS DUE TO POLLEN 08/27/2013 WILKINS DO, BALJEET K 477.0 ALLERGIC RHINITIS DUE TO POLLEN 08/27/2013 WILKINS DO, BALJEET K 477.0 ALLERGIC RHINITIS DUE TO POLLEN 08/27/2013 MADL 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, CHERRIE L 477.0 ALLERGIC RHINITIS DUE TO POLLEN 08/27/2013 SAGAR NAVA MD 477.0 ALLERGIC RHINITIS DUE TO POLLEN 08/27/2013 WILKINS DO, BALJEET K 477.0 ALLERGIC RHINITIS DUE TO POLLEN 08/27/2013 WILKINS DO, BALJEET K 477.0 ALLERGIC RHINITIS DUE TO POLLEN 08/27/2013 WILKINS DO, BALJEET K 477.0 ALLERGIC RHINITIS DUE TO POLLEN 12/26/2013 WILKINS DO, BALJEET K V03.82 PCV-13 (PREVNAR) DX 12/26/2013 WILKINS DO, BALJEET K V06.4 MMR DX 12/26/2013 WILKINS DO, BALJEET K V03.82 PCV-13 (PREVNAR) DX 12/26/2013 WILKINS DO, BALJEET K V06.4 MMR DX 12/26/2013 MADL 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, CHERRIE L V03.82 PCV-13 (PREVNAR) DX 12/26/2013 MADL 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, CHERRIE L V06.4 MMR DX 12/26/2013 WILKINS DO, BALJEET K V03.82 PCV-13 (PREVNAR) DX 12/26/2013 WILKINS DO, BALJEET K V06.4 MMR DX 12/26/2013 WILKINS DO, BALJEET K V03.82 PCV-13 (PREVNAR) DX 12/26/2013 WILKINS DO, BALJEET K V06.4 MMR DX 12/26/2013 WHITE DDS, HUMBERTO D V03.82 PCV-13 (PREVNAR) DX 12/26/2013 WHITE DDS, HUMBERTO D V06.4 MMR DX 12/26/2013 WILKINS DO, BALJEET K V03.82 PCV-13 (PREVNAR) DX 12/26/2013 WILKINS DO, BALJEET K V06.4 MMR DX 12/26/2013 WILKINS DO, BALJEET K V03.82 PCV-13 (PREVNAR) DX 12/26/2013 WILKINS DO, BALJEET K V06.4 MMR DX 12/26/2013 WILKINS DO, BALJEET K V03.82 PCV-13 (PREVNAR) DX 12/26/2013 WILKINS DO, BALJEET K V06.4 MMR DX 12/26/2013 MADL 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, CHERRIE L V03.82 PCV-13 (PREVNAR) DX 12/26/2013 MADL 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, CHERRIE L V06.4 MMR DX 12/26/2013 SAGAR NAVA MD V03.82 PCV-13 (PREVNAR) DX 12/26/2013 SAGAR NAVA MD V06.4 MMR DX 12/26/2013 WILKINS DO, BALJEET K V03.82 PCV-13 (PREVNAR) DX 12/26/2013 WILKINS DO, BALJEET K V06.4 MMR DX 12/26/2013 WILKINS DO, BALJEET K V03.82 PCV-13 (PREVNAR) DX 12/26/2013 WILKINS DO, BALJEET K V06.4 MMR DX 12/26/2013 WILKINS DO, BALJEET K V03.82 PCV-13 (PREVNAR) DX 12/26/2013 WILKINS DO, BALJEET K V06.4 MMR DX 01/30/2014 MADNéstor 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CHERRIE Miranda L 794.31 ABNORMAL EKG 01/30/2014 WILKINS DO, BALJEET K 794.31 ABNORMAL EKG 01/30/2014 WILKINS DO, BALJEET K 794.31 ABNORMAL EKG 01/30/2014 WHITE DDS HUMBERTO D 794.31 ABNORMAL EKG 01/30/2014 WILKINS DO, BALJEET K 794.31 ABNORMAL EKG 01/30/2014 WILKINS DO, BALJEET K 794.31 ABNORMAL EKG 01/30/2014 WILKINS DO, BALJEET K 794.31 ABNORMAL EKG 01/30/2014 MADL 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, CHERRIE L 794.31 ABNORMAL EKG 01/30/2014 SAGAR NAVA MD 794.31 ABNORMAL EKG 01/30/2014 WILKINS DO, BALJEET K 794.31 ABNORMAL EKG 01/30/2014 WILKNIS DO, BALJEET K 794.31 ABNORMAL EKG 01/30/2014 WILKINS DO, BALJEET K 794.31 ABNORMAL EKG 06/06/2014 RAYMON HAMMOND [facility], HENRIK FACP CCDS Ot 244.9 06/06/2014 RAYMON HAMMOND [facility], HENRIK FACP CCDS Ot 780.79 06/06/2014 RAYMON HAMMOND [facility], HENRIK FACP CCDS Ot 785.1 06/06/2014 RAYMON HAMMOND [facility], HENRIK FACP CCDS Ot 786.05 06/29/2014 RAYMON HAMMOND [facility], HENRIK FACP CCDS Ot 244.9 HYPOTHYROIDISM NOS 06/29/2014 RAYMON HAMMOND FAC, ALI FACP CCDS Ot 785.1 PALPITATIONS 07/09/2014 SAGAR NAVA MD 785.1 PALPITATIONS 07/09/2014 WILKINS DO, BALJEET K 785.1 PALPITATIONS 07/09/2014 WILKINS DO, BALJEET K 785.1 PALPITATIONS 07/09/2014 WILKINS DO, BALJEET K 785.1 PALPITATIONS 08/21/2015 MULU HERNANDEZ DO Ot 654.23 08/21/2015 MULU HERNANDEZ DO Ot V72.63 08/21/2015 MULU HERNANDEZ DO Ot V74.8 08/21/2015 RAYMON HAMMOND FAC, ALI FACP CCDS Ot 244.9 08/21/2015 RAYMON HAMMOND FAC, ALI FACP CCDS Ot 780.79 08/21/2015 RAYMON HAMMOND FACC, ALI FACP CCDS Ot 785.1 08/21/2015 RAYMON HAMMOND FACC, ALI FACP CCDS Ot 786.05 08/21/2015 RAYMON HAMMOND FAC, ALI FACP CCDS Ot 244.9 08/21/2015 RAYMON HAMMOND FAC, ALI FACP CCDS Ot 785.1 08/23/2016 MARY TUCKER MULU C Ot 654.23 PREV DELIVERY, ANTEPARTUM COND 08/23/2016 PAWEL HERNANDEZ DOA C Ot V72.63 PRE-PROCEDURAL LABORATORY EXAMINATION 08/23/2016 MULU HERNANDEZ DO C Ot V74.8 SCREEN-BACTERIAL DIS NEC 08/23/2016 RAYMON HAMMOND FACC, ALI FACP CCDS Ot 244.9 HYPOTHYROIDISM NOS 08/23/2016 RAYMON HAMMOND FACC, ALI FACP CCDS Ot 780.79 OTH MALAISE FATIGUE 08/23/2016 RAYMON BARTH, ALI FACP CCDS Ot 785.1 PALPITATIONS 08/23/2016 RAYMON BARTH, ALI FACP CCDS Ot 786.05 SHORTNESS OF BREATH 08/23/2016 RAYMON BARTH, ALI FACP CCDS Ot 244.9 HYPOTHYROIDISM NOS 08/23/2016 RAYMON BARTH, ALI FACP CCDS Ot 785.1 PALPITATIONS 08/23/2016 BRANDY HAMMOND, SAGAR Miranda Ot M12.89 OTH SPECIFIC ARTHROPATHIES, NEC, MULTIPL 08/23/2016 PAWEL HERNANDEZ DOA C Ot E28.2 POLYCYSTIC OVARIAN SYNDROME 08/23/2016 PAWEL HERNANDEZ DOA C Ot N92.0 EXCESSIVE AND FREQUENT MENSTRUATION WITH 08/23/2016 PAWEL HERNANDEZ DOA C Ot 654.23 PREV DELIVERY, ANTEPARTUM COND 08/23/2016 PAWEL HERNANDEZ DOA C Ot V72.63 PRE-PROCEDURAL LABORATORY EXAMINATION 08/23/2016 PAWEL HERNANDEZ DOA C Ot V74.8 SCREEN-BACTERIAL DIS NEC 08/23/2016 RAYMON HAMMOND FACC, ALI FACP CCDS Ot 244.9 HYPOTHYROIDISM NOS 08/23/2016 RAYMON BARTHC, ALI FACP CCDS Ot 780.79 OTH MALAISE FATIGUE 08/23/2016 RAYMON HAMMOND FACC, ALI FACP CCDS Ot 785.1 PALPITATIONS 08/23/2016 RAYMON HAMMOND FACC, ALI FACP CCDS Ot 786.05 SHORTNESS OF BREATH 08/23/2016 ARYMON HAMMOND FACC, ALI FACP CCDS Ot 244.9 HYPOTHYROIDISM NOS 08/23/2016 RAYMON HAMMOND FACC, ALI FACP CCDS Ot 785.1 PALPITATIONS 08/23/2016 SAGAR NAVA MD Ot M12.89 OTH SPECIFIC ARTHROPATHIES, NEC, MULTIPL 08/23/2016 MULU HERNANDEZ DO Ot E28.2 POLYCYSTIC OVARIAN SYNDROME 08/23/2016 MULU HERNANDEZ DO Ot N92.0 EXCESSIVE AND FREQUENT MENSTRUATION WITH 08/24/2016 SAGAR NAVA MD Ot J45.901 UNSPECIFIED ASTHMA WITH (ACUTE) EXACERBA 08/24/2016 SAGAR NAVA MD Ot R05 COUGH 08/24/2016 SAGAR NAVA MD Ot R06.2 WHEEZING 08/24/2016 SAGAR NAVA MD Ot T78.1XXA OTH ADVERSE FOOD REACTIONS, NOT ELSEWHER 12/21/2016 SAGAR NAVA MD Ot I31.3 PERICARDIAL EFFUSION (NONINFLAMMATORY) 12/21/2016 SAGAR NAVA MD Ot K44.9 DIAPHRAGMATIC HERNIA WITHOUT OBSTRUCTION 12/21/2016 SAGAR NAVA MD Ot R05 COUGH 01/12/2017 SAGAR NAVA MD Ot I31.3 PERICARDIAL EFFUSION (NONINFLAMMATORY) 01/12/2017 SAGAR NAVA MD Ot K44.9 DIAPHRAGMATIC HERNIA WITHOUT OBSTRUCTION 01/12/2017 SAGAR NAVA MD Ot R05 COUGH 01/31/2017 RAYMON HAMMOND FACC, HENRIK BARTHP CCDS Ot I31.3 PERICARDIAL EFFUSION (NONINFLAMMATORY) 01/31/2017 RAYMON HAMMOND FACC, HENRIK BARTHP CCDS Ot J45.998 OTHER ASTHMA 01/31/2017 [facility] R00.2 PALPITATIONS 01/31/2017 RAYMON HAMMOND FACC, HENRIK BARTHP CCDS Ot R07.89 OTHER CHEST PAIN 10/09/2017 GIIDRIS TUCKER, DILIP A Ot B99.9 UNSPECIFIED INFECTIOUS DISEASE 10/10/2017 DILIP LEA DO A Ot B99.9 UNSPECIFIED INFECTIOUS DISEASE 12/25/2017 MARY TUCKERMULU Ot Z12.31 ENCNTR SCREEN MAMMOGRAM FOR MALIGNANT NE 04/24/2018 MARY MULU TUCKER Ot N63.11 UNSPECIFIED LUMP IN THE RIGHT BREAST, UP 04/24/2018 HERNANDEZMULU Larios DO Ot R92.2 INCONCLUSIVE MAMMOGRAM 05/17/2018 CARLITOS TUCKER JAY Riley Ot Z01.818 ENCOUNTER FOR OTHER PREPROCEDURAL EXAMIN 05/18/2018 ABI DAVILA 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 Ot I31.3 PERICARDIAL EFFUSION (NONINFLAMMATORY) 05/18/2018 ABI DAVILA 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 Ot J45.909 UNSPECIFIED ASTHMA, UNCOMPLICATED 05/18/2018 ABI DAVILA 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 Ot J47.9 BRONCHIECTASIS, UNCOMPLICATED 05/18/2018 ABI DAVILA 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 Ot K21.9 GASTRO-ESOPHAGEAL REFLUX DISEASE WITHOUT 05/18/2018 ABI DAVILA E 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 Ot K44.9 DIAPHRAGMATIC HERNIA WITHOUT OBSTRUCTION 05/18/2018 ABI DAVILA 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 Ot R59.0 LOCALIZED ENLARGED LYMPH NODES 05/21/2018 ABI DAVILA 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 Ot I26.99 OTHER PULMONARY EMBOLISM WITHOUT ACUTE C 05/21/2018 ABI DAVILA 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 Ot J45.909 UNSPECIFIED ASTHMA, UNCOMPLICATED 06/04/2018 ABI DAVILA 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 Ot G47.9 SLEEP DISORDER, UNSPECIFIED 06/04/2018 ABI DAVILA 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 Ot J45.998 OTHER ASTHMA 06/18/2018 ABI DAVILA 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 Ot I26.99 OTHER PULMONARY EMBOLISM WITHOUT ACUTE C 06/18/2018 ABI DAVILA 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 Ot J45.909 UNSPECIFIED ASTHMA, UNCOMPLICATED 06/18/2018 ABI DAVILA 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 Ot J47.9 BRONCHIECTASIS, UNCOMPLICATED 06/18/2018 ABI DAVILA 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 Ot K44.9 DIAPHRAGMATIC HERNIA WITHOUT OBSTRUCTION 06/18/2018 ABI DAVILA 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 Ot R59.0 LOCALIZED ENLARGED LYMPH NODES 06/18/2018 YOLANDA DAVILAINE Nelda 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 Ot R91.8 OTHER NONSPECIFIC ABNORMAL FINDING OF ELISABETH 06/21/2018 YOLANDA DAVILAINE Nelda 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 Ot I26.99 OTHER PULMONARY EMBOLISM WITHOUT ACUTE C 06/21/2018 YOLANDA DAVILAINE Nelda 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 Ot J45.909 UNSPECIFIED ASTHMA, UNCOMPLICATED 06/21/2018 YOLANDA DAVILAINE Nelda 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 Ot J47.9 BRONCHIECTASIS, UNCOMPLICATED 06/21/2018 ABI DAVILA 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 Ot K44.9 DIAPHRAGMATIC HERNIA WITHOUT OBSTRUCTION 06/21/2018 ABI DAVILA 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 Ot R59.0 LOCALIZED ENLARGED LYMPH NODES 06/21/2018 ABI DAVILA 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 Ot R91.8 OTHER NONSPECIFIC ABNORMAL FINDING OF ELISABETH 07/10/2018 JAY URBINA DO Ot Z01.818 ENCOUNTER FOR OTHER PREPROCEDURAL EXAMIN 07/13/2018 DILIP LEA DO Ot J45.51 SEVERE PERSISTENT ASTHMA WITH (ACUTE) EX 07/17/2018 ABI DAVILA 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 Ot I26.99 OTHER PULMONARY EMBOLISM WITHOUT ACUTE C 07/17/2018 ABI DAVILA 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 Ot J45.909 UNSPECIFIED ASTHMA, UNCOMPLICATED 07/17/2018 ABI DAVILA 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 Ot J47.9 BRONCHIECTASIS, UNCOMPLICATED 07/17/2018 ABI DAVILA 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 Ot K44.9 DIAPHRAGMATIC HERNIA WITHOUT OBSTRUCTION 07/17/2018 ABI DAVILA 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 Ot R59.0 LOCALIZED ENLARGED LYMPH NODES 07/17/2018 ABI DAVILA 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 Ot R91.8 OTHER NONSPECIFIC ABNORMAL FINDING OF ELISABETH 07/17/2018 YOLANDA DAVILAINE Nelda 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 Ot I31.3 PERICARDIAL EFFUSION (NONINFLAMMATORY) 07/17/2018 YOLANDA DAVILAINE Nelda 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 Ot J45.909 UNSPECIFIED ASTHMA, UNCOMPLICATED 07/17/2018 YOLANDA DAVILAINE Nelda 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 Ot J47.9 BRONCHIECTASIS, UNCOMPLICATED 07/17/2018 YOLANDA DAVILAINE Nelda 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 Ot K21.9 GASTRO-ESOPHAGEAL REFLUX DISEASE WITHOUT 07/17/2018 YOLANDA DAVILAINE Nelda 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 Ot K44.9 DIAPHRAGMATIC HERNIA WITHOUT OBSTRUCTION 07/17/2018 ABI DAVILA 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 Ot R59.0 LOCALIZED ENLARGED LYMPH NODES Procedures Code Description [place] [address] CULTURE SPUTUM 05/10/2012 General S Steve Agudelo 10/02/2012 76532 IMMUNOTHERAPY INJECTIONS 10/17/2012 62814 IMMUNOTHERAPY INJECTIONS 10/24/2012 41782 IMMUNOTHERAPY INJECTIONS 11/14/2012 28164 IMMUNOTHERAPY INJECTIONS 11/23/2012 72756 IMMUNOTHERAPY INJECTIONS 11/28/2012 02887 IMMUNOTHERAPY INJECTIONS 12/11/2012 98506 IMMUNOTHERAPY INJECTIONS 12/18/2012 04325 IMMUNOTHERAPY INJECTIONS 12/26/2012 93023 UA LONG DIP 12/26/2012 37758 IMMUNOTHERAPY INJECTIONS 02/13/2013 50368 IMMUNOTHERAPY INJECTIONS 02/19/2013 82442 IMMUNOTHERAPY INJECTIONS 02/27/2013 88910 ROUTINE VENIPUNCTURE 03/01/2013 69891 TSH 03/01/2013 TETRA TETRA SCREEN 03/01/2013 33817 IMMUNOTHERAPY INJECTIONS 03/25/2013 89875 THERAPUTIC INJ SQ/IM 03/25/2013 34675 UA LONG DIP 03/28/2013 73741 CULTURE URINE 03/28/2013 72233 ROUTINE VENIPUNCTURE 05/01/2013 37577 CBC 05/01/2013 02355 GLUCOSE BHAVIN 1 HOUR 05/01/2013 13965 IMMUNOTHERAPY INJECTIONS 05/08/2013 35644 IMMUNOTHERAPY INJECTIONS 05/13/2013 77914 IMMUNOTHERAPY INJECTIONS 06/05/2013 01191 IMMUNOTHERAPY INJECTIONS 06/10/2013 79146 IMMUNOTHERAPY INJECTIONS 06/19/2013 62994 IMMUNOTHERAPY INJECTIONS 06/25/2013 97307 IMMUNOTHERAPY INJECTIONS 07/02/2013 32894 IMMUNOTHERAPY INJECTIONS 07/17/2013 54.59 OTH LYSIS-PERITONEAL ADHES 07/30/2013 74.1 LOW CERVICAL 07/30/2013 74760 IMMUNOTHERAPY INJECTIONS 08/27/2013 40638 IMMUNOTHERAPY INJECTIONS 09/26/2013 76766 IMMUNOTHERAPY INJECTIONS 10/03/2013 72192 IMMUNOTHERAPY INJECTIONS 10/17/2013 23708 IMMUNOTHERAPY INJECTIONS 10/23/2013 64580 IMMUNOTHERAPY INJECTIONS 11/20/2013 41543 TB TEST INTRADERMAL 11/22/2013 11303 IMMUNOTHERAPY INJECTIONS 11/28/2013 72893 IMMUNOTHERAPY INJECTIONS 12/05/2013 55080 IMMUNOTHERAPY INJECTIONS 12/11/2013 44989 IMMUNOTHERAPY INJECTIONS 12/18/2013 82074 IMMUNOTHERAPY INJECTIONS 01/27/2014 95864 EKG, TRACING (IN-HOUSE) 01/31/2014 07463 ROUTINE VENIPUNCTURE 01/31/2014 72425 CBC 01/31/2014 [id number] GFR CALC (RESULT ONLY) 01/31/2014 34226 CMP 01/31/2014 49637 LIPID PANEL 01/31/2014 27008 MAGNESIUM 01/31/2014 51311 T4 FREE 01/31/2014 76428 TSH 01/31/2014 74758 VITAMIN D 25-HYDROXY (D2,D3 , TOTAL) 01/31/2014 16575 IMMUNOTHERAPY INJECTIONS 02/19/2014 Mulu Coley 04/01/2014 74820 IMMUNOTHERAPY INJECTIONS 05/15/2014 27079 IMMUNOTHERAPY INJECTIONS 06/05/2014 22283 IMMUNOTHERAPY INJECTIONS 06/12/2014 Pulmonary Jay Urbina 07/02/2014 25222 XRAY FOOT RIGHT COMP MIN 3 VIEWS 07/07/2014 Pulmonary Jay Urbina 07/09/2014 64978 IMMUNOGLOBULIN IGG/IGA/IGM 07/09/2014 58491 ROUTINE VENIPUNCTURE 07/09/2014 03464 IMMUNOTHERAPY INJECTIONS 08/14/2014 04049 IMMUNOTHERAPY INJECTIONS 10/02/2014 56417 IMMUNOTHERAPY INJECTIONS 10/08/2014 Results Test Result Range CBC With Differential/Platelet - 08/08/16 08:08 WBC 7.9 x10E3/uL 3.4-10.8 RBC 4.83 x10E6/uL 3.77-5.28 Hemoglobin 12.5 g/dL 11.1-15.9 Hematocrit 39.3 % 34.0-46.6 MCV 81 fL 79-97 MCH 25.9 pg 26.6-33.0 MCHC 31.8 g/dL 31.5-35.7 RDW 15.8 % 12.3-15.4 Platelets 328 x10E3/uL 150-379 Neutrophils 66 % Lymphs 30 % Monocytes 3 % Eos 1 % Basos 0 % Neutrophils (Absolute) 5.2 x10E3/uL 1.4-7.0 Lymphs (Absolute) 2.4 x10E3/uL 0.7-3.1 Monocytes(Absolute) 0.3 x10E3/uL 0.1-0.9 Eos (Absolute) 0.0 x10E3/uL 0.0-0.4 Baso (Absolute) 0.0 x10E3/uL 0.0-0.2 Immature Granulocytes 0 % Immature Grans (Abs) 0.0 x10E3/uL 0.0-0.1 Comp. Metabolic Panel (14) - 08/08/16 08:08 Glucose, Serum 84 mg/dL 65-99 BUN 12 mg/dL 6-20 Creatinine, Serum 0.74 mg/dL 0.57-1.00 eGFR If NonAfricn Am 102 mL/min/1.73 >59 eGFR If Africn Am 118 mL/min/1.73 >59 BUN/Creatinine Ratio 16 8-20 Sodium, Serum 141 mmol/L 134-144 Potassium, Serum 4.4 mmol/L 3.5-5.2 Chloride, Serum 102 mmol/L 96-106 Carbon Dioxide, Total 19 mmol/L 18-29 Calcium, Serum 8.9 mg/dL 8.7-10.2 Protein, Total, Serum 6.4 g/dL 6.0-8.5 Albumin, Serum 3.9 g/dL 3.5-5.5 Globulin, Total 2.5 g/dL 1.5-4.5 A/G Ratio 1.6 1.1-2.5 Bilirubin, Total <0.2 mg/dL 0.0-1.2 Alkaline Phosphatase, S 57 IU/L 39-117 AST (SGOT) 10 IU/L 0-40 ALT (SGPT) 12 IU/L 0-32 Lipid Panel - 08/08/16 08:08 Cholesterol, Total 193 mg/dL 100-199 Triglycerides 94 mg/dL 0-149 HDL Cholesterol 37 mg/dL >39 VLDL Cholesterol Cole 19 mg/dL 5-40 LDL Cholesterol Calc 137 mg/dL 0-99 TSH - 08/08/16 08:08 TSH 1.770 uIU/mL 0.450-4.500 Complete blood count (CBC) with automated white blood cell (WBC) differential - 08/23/16 19:00 Blood leukocytes automated count (number/volume) 11.3 10*3/uL 4.3-11.0 Blood erythrocytes automated count (number/volume) 5.05 10*6/uL 4.35-5.85 Venous blood hemoglobin measurement (mass/volume) 13.3 g/dL 11.5-16.0 Blood hematocrit (volume fraction) 41 % 35-52 Automated erythrocyte mean corpuscular volume 81 [foz_us] 80-99 Automated erythrocyte mean corpuscular hemoglobin (mass per erythrocyte) 26 pg 25-34 Automated erythrocyte mean corpuscular hemoglobin concentration measurement ( mass/volume) 33 g/dL 32-36 Automated erythrocyte distribution width ratio 16.1 % 10.0-14.5 Automated blood platelet count (count/volume) 369 10*3/uL 130-400 Automated blood platelet mean volume measurement 10.1 [foz_us] 7.4-10.4 Automated blood neutrophils/100 leukocytes 94 % 42-75 Automated blood lymphocytes/100 leukocytes 6 % 12-44 Blood monocytes/100 leukocytes 0 % 0-12 Automated blood eosinophils/100 leukocytes 0 % 0-10 Automated blood basophils/100 leukocytes 0 % 0-10 Blood neutrophils automated count (number/volume) 10.6 10*3 1.8-7.8 Blood lymphocytes automated count (number/volume) 0.7 10*3 1.0-4.0 Blood monocytes automated count (number/volume) 0.0 10*3 0.0-1.0 Automated eosinophil count 0.0 10*3/uL 0.0-0.3 Automated blood basophil count (count/volume) 0.0 10*3/uL 0.0-0.1 Blood manual differential performed detection - 08/23/16 19:00 Blood monocytes/100 leukocytes 0 % NR Manual blood segmented neutrophils/100 leukocytes 93 % NRG Blood band neutrophils/100 leukocytes 5 % NRG Manual blood lymphocytes/100 leukocytes 2 % NRG Manual eosinophils/100 leukocytes in nose 0 % NRG Manual blood basophils/100 leukocytes 0 % NRG Blood erythrocyte morphology finding identification [facility] Comprehensive metabolic panel - 08/23/16 19:00 Serum or plasma sodium measurement (moles/volume) 138 mmol/L 135-145 Serum or plasma potassium measurement (moles/volume) 4.3 mmol/L 3.6-5.0 Serum or plasma chloride measurement (moles/volume) 107 mmol/L 98-107 Carbon dioxide 21 mmol/L 21-32 Serum or plasma anion gap determination (moles/volume) 10 mmol/L 5-14 Serum or plasma urea nitrogen measurement (mass/volume) 11 mg/dL 7-18 Serum or plasma creatinine measurement (mass/volume) 0.74 mg/dL 0.60-1.30 Serum or plasma urea nitrogen/creatinine mass ratio 15 NRG Serum or plasma creatinine measurement with calculation of estimated glomerular filtration rate > NRG Serum or plasma glucose measurement (mass/volume) 149 mg/dL 70-105 Serum or plasma calcium measurement (mass/volume) 9.5 mg/dL 8.5-10.1 Serum or plasma total bilirubin measurement (mass/volume) 0.2 mg/dL 0.1-1.0 Serum or plasma alkaline phosphatase measurement (enzymatic activity/volume) 65 U/L 40-136 Serum or plasma aspartate aminotransferase measurement (enzymatic activity/ volume) 14 U/L 5-34 Serum or plasma alanine aminotransferase measurement (enzymatic activity/volume ) 18 U/L 0-55 Serum or plasma protein measurement (mass/volume) 7.4 g/dL 6.4-8.2 Serum or plasma albumin measurement (mass/volume) 4.1 g/dL 3.2-4.5 Magnesium - 08/23/16 19:00 Magnesium 2.8 mg/dL 1.8-2.4 CBC+Platelet+Hem Review - 11/09/16 09:06 WBC 11.6 x10E3/uL 3.4-10.8 RBC 4.77 x10E6/uL 3.77-5.28 Hemoglobin 12.5 g/dL 11.1-15.9 Hematocrit 38.9 % 34.0-46.6 MCV 82 fL 79-97 MCH 26.2 pg 26.6-33.0 MCHC 32.1 g/dL 31.5-35.7 RDW 16.7 % 12.3-15.4 Platelets 385 x10E3/uL 150-379 Neutrophils 81 % Lymphs 17 % Monocytes 2 % Eos 0 % Basos 0 % Neutrophils Absolute 9.4 X10E3/uL 1.4-7.0 Lymphs (Absolute) 2.0 X10E3/uL 0.7-3.1 Monocytes(Absolute) 0.2 X10E3/uL 0.1-0.9 Eos (Absolute Value) 0.0 X10E3/uL 0.0-0.4 Baso(Absolute) 0.0 X10E3/uL 0.0-0.2 Differential Comment Note: RBC Comment Note: Normal Platelet Comment Note: Adequate Immunoglobulin E, Total - 11/09/16 09:06 Immunoglobulin E, Total 46 IU/mL 0-100 CBC+Platelet+Hem Review - 12/23/16 11:08 WBC 9.9 x10E3/uL 3.4-10.8 RBC 4.81 x10E6/uL 3.77-5.28 Hemoglobin 13.0 g/dL 11.1-15.9 Hematocrit 40.0 % 34.0-46.6 MCV 83 fL 79-97 MCH 27.0 pg 26.6-33.0 MCHC 32.5 g/dL 31.5-35.7 RDW 17.0 % 12.3-15.4 Platelets 377 x10E3/uL 150-379 Neutrophils 70 % Lymphs 26 % Monocytes 4 % Eos 0 % Basos 0 % Neutrophils Absolute 6.9 X10E3/uL 1.4-7.0 Lymphs (Absolute) 2.6 X10E3/uL 0.7-3.1 Monocytes(Absolute) 0.4 X10E3/uL 0.1-0.9 Eos (Absolute Value) 0.0 X10E3/uL 0.0-0.4 Baso(Absolute) 0.0 X10E3/uL 0.0-0.2 Differential Comment Note: RBC Comment Note: Normal Platelet Comment Note: Adequate Comp. Metabolic Panel (14) - 12/23/16 11:08 Glucose, Serum 84 mg/dL 65-99 BUN 13 mg/dL 6-20 Creatinine, Serum 0.69 mg/dL 0.57-1.00 eGFR If NonAfricn Am 110 mL/min/1.73 >59 eGFR If Africn Am 127 mL/min/1.73 >59 BUN/Creatinine Ratio 19 9-23 Sodium, Serum 141 mmol/L 134-144 Potassium, Serum 4.6 mmol/L 3.5-5.2 Chloride, Serum 103 mmol/L 96-106 Carbon Dioxide, Total 20 mmol/L 18-29 Calcium, Serum 9.2 mg/dL 8.7-10.2 Protein, Total, Serum 6.8 g/dL 6.0-8.5 Albumin, Serum 4.2 g/dL 3.5-5.5 Globulin, Total 2.6 g/dL 1.5-4.5 A/G Ratio 1.6 1.2-2.2 Bilirubin, Total <0.2 mg/dL 0.0-1.2 Alkaline Phosphatase, S 56 IU/L 39-117 AST (SGOT) 13 IU/L 0-40 ALT (SGPT) 10 IU/L 0-32 Sedimentation Rate-Westergren - 12/23/16 11:08 Sedimentation Rate-Westergren 29 mm/hr 0-32 Magnesium, Serum - 12/23/16 11:08 Magnesium, Serum 2.3 mg/dL 1.6-2.3 ACID FAST BACILLUS SMEAR+CULTURE - 05/12/17 10:19 MYCOBACTERIA, CULTURE, WITH FLUOROCHROME SMEAR SEE NOTE NRG TSH - 08/23/17 07:56 TSH 1.68 mIU/L NRG CULTURE, SPUTUM - 09/08/17 13:02 CULTURE, SPUTUM/LOWER RESPIRATORY SEE NOTE NRG PDM - PAIN MGMT (PROFILE 3 WITH CONFIRMATION) - 12/29/17 17:52 Creatinine 78.1 mg/dL > or=20.0 pH 6.92 4.5 - 9.0 Oxidant NEGATIVE mcg/mL <200 Amphetamines NEGATIVE ng/mL <500 medMATCH Amphetamines CONSISTENT NRG Benzodiazepines NEGATIVE CONFIRMED ng/mL <100 Marijuana Metabolite NEGATIVE ng/mL <20 medMATCH Marijuana Metab CONSISTENT NRG Cocaine Metabolite NEGATIVE ng/mL <150 medMATCH Cocaine Metab CONSISTENT NRG Opiates NEGATIVE ng/mL <100 medMATCH Opiates CONSISTENT NRG Oxycodone NEGATIVE ng/mL <100 medMATCH Oxycodone CONSISTENT NRG COMMENT NRG Alphahydroxyalprazolam NEGATIVE ng/mL <25 medMATCH aOH alprazolam CONSISTENT NRG Alphahydroxymidazolam NEGATIVE ng/mL <50 medMATCH aOH midazolam CONSISTENT NRG Alphahydroxytriazolam NEGATIVE ng/mL <50 medMATCH aOH triazolam CONSISTENT NRG Aminoclonazepam NEGATIVE ng/mL <25 medMATCH Aminoclonazepam CONSISTENT NRG Hydroxyethylflurazepam NEGATIVE ng/mL <50 medMATCH OH,Et flurazepam CONSISTENT NRG Lorazepam NEGATIVE ng/mL <50 medMATCH Lorazepam CONSISTENT NRG Nordiazepam NEGATIVE ng/mL <50 medMATCH Nordiazepam CONSISTENT NRG Oxazepam NEGATIVE ng/mL <50 medMATCH Oxazepam CONSISTENT NRG Temazepam NEGATIVE ng/mL <50 medMATCH Temazepam CONSISTENT NRG CRP - 04/12/18 08:27 C-REACTIVE PROTEIN 44.9 mg/L <8.0 DIFFERENTIAL, MANUAL - 04/12/18 08:27 ABSOLUTE NEUTROPHILS 5238 cells/uL 7847-8469 ABSOLUTE MONOCYTES 79 cells/uL 200-950 ABSOLUTE EOSINOPHILS 158 cells/uL 15-500 ABSOLUTE BASOPHILS 79 cells/uL 0-200 NEUTROPHILS 66.3 % NRG LYMPHOCYTES 27.7 % NRG MONOCYTES 1.0 % NRG EOSINOPHILS 2.0 % NRG BASOPHILS 1.0 % NRG ABSOLUTE BAND NEUTROPHILS 158 cells/uL 0-750 ABSOLUTE LYMPHOCYTES 2188 cells/uL 850-3900 BAND NEUTROPHILS 2.0 % NRG CBC MORPHOLOGY NORMAL ABSOLUTE NUCLEATED RBC 79 cells/uL NUCLEATED RBC 1 /100 WBC Complete blood count (CBC) with automated white blood cell (WBC) differential - 05/17/18 16:02 Blood leukocytes automated count (number/volume) 16.3 10*3/uL 4.3-11.0 Blood erythrocytes automated count (number/volume) 5.00 10*6/uL 4.35-5.85 Venous blood hemoglobin measurement (mass/volume) 12.8 g/dL 11.5-16.0 Blood hematocrit (volume fraction) 41 % 35-52 Automated erythrocyte mean corpuscular volume 81 [foz_us] 80-99 Automated erythrocyte mean corpuscular hemoglobin (mass per erythrocyte) 26 pg 25-34 Automated erythrocyte mean corpuscular hemoglobin concentration measurement ( mass/volume) 32 g/dL 32-36 Automated erythrocyte distribution width ratio 18.5 % 10.0-14.5 Automated blood platelet count (count/volume) 432 10*3/uL 130-400 Automated blood platelet mean volume measurement 9.5 [foz_us] 7.4-10.4 Automated blood neutrophils/100 leukocytes 86 % 42-75 Automated blood lymphocytes/100 leukocytes 11 % 12-44 Blood monocytes/100 leukocytes 3 % 0-12 Automated blood eosinophils/100 leukocytes 0 % 0-10 Automated blood basophils/100 leukocytes 0 % 0-10 Blood neutrophils automated count (number/volume) 14.0 10*3 1.8-7.8 Blood lymphocytes automated count (number/volume) 1.7 10*3 1.0-4.0 Blood monocytes automated count (number/volume) 0.5 10*3 0.0-1.0 Automated eosinophil count 0.0 10*3/uL 0.0-0.3 Automated blood basophil count (count/volume) 0.0 10*3/uL 0.0-0.1 PT panel in platelet poor plasma by coagulation assay - 05/17/18 16:02 Prothrombin time (PT) in platelet poor plasma by coagulation assay 12.9 s 12.2-14.7 INR in platelet poor plasma or blood by coagulation assay 1.0 0.8-1.4 Activated partial thromboplastin time (aPTT) in platelet poor plasma bycoagulation assay - 05/17/18 16:02 Activated partial thromboplastin time (aPTT) in platelet poor plasma bycoagulation assay 31 s 24-35 Fibrin D-dimer FEU measurement in platelet poor plasma (mass/volume) - 16:02 Fibrin D-dimer FEU measurement in platelet poor plasma (mass/volume) 1.74 ug/mL 0.00-0.49 Comprehensive metabolic panel - 05/17/18 16:02 Serum or plasma sodium measurement (moles/volume) 138 mmol/L 135-145 Serum or plasma potassium measurement (moles/volume) 4.4 mmol/L 3.6-5.0 Serum or plasma chloride measurement (moles/volume) 107 mmol/L 98-107 Carbon dioxide 20 mmol/L 21-32 Serum or plasma anion gap determination (moles/volume) 11 mmol/L 5-14 Serum or plasma urea nitrogen measurement (mass/volume) 13 mg/dL 7-18 Serum or plasma creatinine measurement (mass/volume) 0.84 mg/dL 0.60-1.30 Serum or plasma urea nitrogen/creatinine mass ratio 15 NRG Serum or plasma creatinine measurement with calculation of estimated glomerular filtration rate > NRG Serum or plasma glucose measurement (mass/volume) 97 mg/dL 70-105 Serum or plasma calcium measurement (mass/volume) 9.6 mg/dL 8.5-10.1 Serum or plasma total bilirubin measurement (mass/volume) 0.2 mg/dL 0.1-1.0 Serum or plasma alkaline phosphatase measurement (enzymatic activity/volume) 61 U/L 40-136 Serum or plasma aspartate aminotransferase measurement (enzymatic activity/ volume) 16 U/L 5-34 Serum or plasma alanine aminotransferase measurement (enzymatic activity/volume ) 15 U/L 0-55 Serum or plasma protein measurement (mass/volume) 7.8 g/dL 6.4-8.2 Serum or plasma albumin measurement (mass/volume) 4.3 g/dL 3.2-4.5 CALCIUM CORRECTED 9.4 mg/dL 8.5-10.1 Serum or plasma C reactive protein measurement (mass/volume) - 05/17/18 16:02 Serum or plasma C reactive protein measurement (mass/volume) 3.82 mg /dL 0.00-0.50 Blood manual differential performed detection - 05/17/18 16:02 Blood monocytes/100 leukocytes 4 % NRG Manual blood segmented neutrophils/100 leukocytes 80 % NRG Blood band neutrophils/100 leukocytes 0 % NRG Manual blood lymphocytes/100 leukocytes 14 % NRG Manual eosinophils/100 leukocytes in nose 0 % NRG Manual blood basophils/100 leukocytes 1 % NRG Blood lymphocytes variant/100 leukocytes 1 % NRG Blood erythrocyte morphology finding identification NORMAL NRG Erythrocyte sedimentation rate by westergren method - 05/17/18 16:02 Erythrocyte sedimentation rate by westergren method 13 mm 0-20 Aspergillus antibody assay - 05/17/18 16:02 Serum Aspergillus fumigatus IgG antibody assay (mass/volume) 37.8 ug /mL <46.0 Serum Aspergillus species IgE antibody assay (units/volume) < % <0.35 Serum Aspergillus species IgE radioallergosorbent test (RAST) class determination 0 NRG Serum classic neutrophil cytoplasmic antibody assay (units/volume) - 05/17/18 16:02 Antineutrophil cytoplasmic antibody (ANCA) assay < <1: 20 Antineutrophil cytoplasmic antibody (ANCA) pattern Not Indicated NRG [id number] - 05/17/18 16:02 Isamar antibody assay Negative NRG Cerebrospinal fluid Aspergillus species antibody titer by complement fixation < <1:8 Cerebrospinal fluid Blastomyces dermatitidis antibody detection by complement fixation 0.9 <=0.9 Serum Coccidioides species antibody assay by complement fixation (units/volume ) < <1:2 Histoplasma capsulatum antibody detection by complement fixation <1: 8 <1:8 Cerebrospinal fluid Histoplasma capsulatum mycelial phase antibody titer by complement fixation < <1:8 Encounters ACCT No. Visit Date/Time Discharge Status Pt. 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 [id number] 06/12/2014 15:59:00 06/12/2014 23:59:59 CLS Outpatient WILKINS DO, BALJEET John [id number] 06/05/2014 13:07:00 06/05/2014 23:59:59 CLS Outpatient WILKINS DO, BALJEET Lopez [id number] 05/15/2014 10:44:00 05/15/2014 23:59:59 CLS Outpatient WILKINS DO, BALJEET Lopez [id number] 03/28/2014 07:57:00 03/28/2014 23:59:59 CLS Outpatient WHITE DDS HUMBERTO Newton [id number] 03/21/2014 09:44:00 03/21/2014 23:59:59 CLS Outpatient WILKINS DO, BALJEET John [id number] 02/19/2014 09:30:00 02/19/2014 23:59:59 CLS Outpatient WILKINS DO, BALJEET K [id number] 01/31/2014 08:37:00 01/31/2014 23:59:59 CLS Outpatient [facility] 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ERRIE [id number] 01/27/2014 15:30:00 01/27/2014 23:59:59 CLS Outpatient WILKINS DO, BALJEET John [id number] 12/26/2013 13:43:00 12/26/2013 23:59:59 CLS Outpatient WILKINS DO, BALJEET K [id number] 12/18/2013 14:08:00 12/18/2013 23:59:59 CLS Outpatient WILKINS DO, BALJEET John [id number] 12/11/2013 11:20:00 12/11/2013 23:59:59 CLS Outpatient WILKINS DO, BALJEET John [id number] 12/05/2013 13:29:00 12/05/2013 23:59:59 CLS Outpatient WILKINS DO, BALJEET John [id number] 11/28/2013 14:14:00 11/28/2013 23:59:59 CLS Outpatient WILKINS DO, BALJEET K [id number] 11/20/2013 15:49:00 11/20/2013 23:59:59 CLS Outpatient WILKINS DO, BALJEET John [id number] 10/23/2013 09:20:00 10/23/2013 23:59:59 CLS Outpatient WILKINS DO, BALJEET K [id number] 10/17/2013 14:45:00 10/17/2013 23:59:59 CLS Outpatient WILKINS DOBALJEET [id number] 10/03/2013 13:25:00 10/03/2013 23:59:59 CLS Outpatient WILKINS DOBALJEET [id number] 09/26/2013 11:11:00 09/26/2013 23:59:59 CLS Outpatient WILKINS DOBALJEET [id number] 07/17/2013 13:45:00 07/17/2013 23:59:59 CLS Outpatient WILKINS DO, BALJEET Lopez [id number] 07/02/2013 14:51:00 07/02/2013 23:59:59 CLS Outpatient WILKINS DOBALJEET [id number] 06/25/2013 10:34:00 06/25/2013 23:59:59 CLS Outpatient WILKINS DOBALJEET [id number] 06/19/2013 10:27:00 06/19/2013 23:59:59 CLS Outpatient WILKINS DOBALJEET [id number] 06/10/2013 10:18:00 06/10/2013 23:59:59 CLS Outpatient WILKINS DOBALJEET [id number] 06/05/2013 09:06:00 06/05/2013 23:59:59 CLS Outpatient WILKINS DOBALJEET [id number] 05/15/2013 15:14:00 05/15/2013 23:59:59 CLS Outpatient WILKINS DOBALJEET [id number] 05/13/2013 13:37:00 05/13/2013 23:59:59 CLS Outpatient WILKINS DOBALJEET [id number] 05/08/2013 08:34:00 05/08/2013 23:59:59 CLS Outpatient WILKINS DO, BALJEET Lopez [id number] 05/01/2013 12:00:00 05/01/2013 23:59:59 CLS Outpatient WILKINS DOBALJEET [id number] 03/28/2013 13:48:00 03/28/2013 23:59:59 CLS Outpatient WILKINS DOBALJEET [id number] 03/25/2013 16:11:00 03/25/2013 23:59:59 CLS Outpatient WILKINS DOBALJEET [id number] 06/29/2012 08:10:00 06/29/2012 23:59:59 CLS Outpatient BEBA PAZ ARMENDARIZ [id number] 04/24/2012 08:13:00 04/24/2012 23:59:59 CLS Outpatient WILL RODRIGEZ MD [id number] 03/12/2013 16:19:00 Document Registration [id number] 03/01/2013 10:34:00 Document Registration [id number] 02/27/2013 15:00:00 Document Registration [id number] 02/19/2013 15:06:00 Document Registration [id number] 02/13/2013 09:44:00 Document Registration [id number] 12/26/2012 14:39:00 Document Registration [id number] 12/26/2012 13:59:00 Document Registration [id number] 12/18/2012 15:48:00 Document Registration [id number] 12/11/2012 12:54:00 Document Registration [id number] 11/28/2012 13:23:00 Document Registration [id number] 11/23/2012 13:35:00 Document Registration [id number] 11/14/2012 10:54:00 Document Registration [id number] 10/24/2012 13:31:00 Document Registration [id number] 10/17/2012 16:37:00 Document Registration [id number] 07/13/2018 11:05:00 07/13/2018 23:59:59 CLS Outpatient DILIP LEA DO [facility] SEVERE PERSISTENT ASTHMA WITH ACUTE EXACERBATION [id number] 07/13/2018 10:00:00 07/13/2018 23:59:59 CLS Preadmit DILIP LEA DO [facility] SEVERE PERSISTENT ASTHMA W/ EXACEBERATION [id number] 07/09/2018 06:31:00 07/09/2018 15:09:00 DIS Outpatient JAY URBINA DO [facility] PREOP BRONCHOSCOPY [id number] 06/15/2018 08:53:00 06/15/2018 23:59:59 CLS Outpatient ABI DAVILA APRN [facility] RAD ASTHMA,PULMONARY EMBOLISM,ABDNORMAL CT OF LUNG [id number] 06/01/2018 11:13:00 06/01/2018 12:30:00 DIS Outpatient ABI DAVILA APRN [facility] RT ASTHMA [id number] 05/21/2018 13:50:00 05/21/2018 23:59:59 CLS Preadmit OTHER, UNLISTED [facility] RAD CHRONIC COUGH [id number] 05/18/2018 11:10:00 05/18/2018 23:59:59 CLS Outpatient ABI DAVILA APRN [facility] RAD PULM EMBOLISM [id number] 05/17/2018 12:55:00 05/17/2018 23:59:59 CLS Outpatient ABI DAVILA 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 [facility] RAD ASTHMA,DYSPNEA, HYPOXEMIA,GERD [id number] 05/17/2018 05:38:00 05/17/2018 23:59:59 CLS Outpatient JAY URBINA DO [facility] PREOP BRONCHOSCOPY [id number] 04/23/2018 14:25:00 04/23/2018 23:59:59 CLS Preadmit MULU HERNANDEZ DO [facility] RAD ABN MAMMO OF RT BREAST [id number] 04/20/2018 12:20:00 04/20/2018 23:59:59 CLS Outpatient MULU HERNANDEZ DO [facility] RAD ABN MAMMO OF RT BREAST [id number] 12/26/2017 12:38:00 12/26/2017 23:59:59 CLS Preadmit MULU HERNANDEZ DO [facility] RAD ABNORMAL MAMMOGRAM OF RIGHT BREAST [id number] 12/22/2017 07:59:00 12/22/2017 23:59:59 CLS Outpatient MULU HERNANDEZ DO [facility] RAD SCREENING [id number] 07/24/2017 08:21:00 07/24/2017 23:59:59 CLS Outpatient DILIP LEA DO [facility] LAB B99.9 [id number] 12/21/2016 11:31:00 12/21/2016 23:59:59 CLS Outpatient RAYMON HAMMOND FACC, HENRIK BULLOCK CCDS [facility] CARD PALPITATIONS [id number] 12/15/2016 11:32:00 12/15/2016 23:59:59 CLS Outpatient SAGAR NAVA MD [facility] RAD CHRONIC COUGH R05 [id number] 12/15/2016 11:30:00 12/15/2016 23:59:59 CLS Outpatient SAGAR NAVA MD [facility] RAD Z79.51 [id number] 08/23/2016 17:26:00 08/24/2016 11:00:00 DIS Inpatient SAGAR NAVA MD [facility] 4TH ANAPHYLACTIC SHOCK [id number] 09/25/2015 11:56:00 09/25/2015 23:59:59 CLS Outpatient MULU HERNANDEZ DO [facility] RAD MENORRHAGEA [id number] 08/21/2015 09:37:00 08/21/2015 23:59:59 CLS Outpatient SAGAR NAVA MD [facility] RAD ARTHIRITIS [id number] 06/30/2014 10:00:00 06/30/2014 23:59:59 CLS Preadmit RAYMON HAMMOND FACC, ALI FACP CCDS [facility] CARD PALPITATIONS [id number] 04/24/2014 12:00:00 06/29/2014 00:01:00 DIS Outpatient RAYMON HAMMOND FACC, HENRIK FACP CCDS [facility] CARD PALPITATIONS [id number] 05/23/2014 10:18:00 05/23/2014 23:59:59 CLS Outpatient RAYMON HAMMOND FACC, ALI FACP CCDS [facility] CARD PALPITATIONS, PCOS,HYPOTHYROIDISM,ASTHMA,GERD [id number] 08/12/2013 13:30:00 08/13/2013 13:41:00 DIS Outpatient MULU HERNANDEZ DO [facility] WOUNDCARE ABD WOUND [id number] 08/09/2013 10:01:00 08/09/2013 20:00:00 DIS Outpatient MULU HERNANDEZ DO [facility] WSo WOUND DEHISCENCE [id number] 07/30/2013 07:45:00 08/01/2013 11:20:00 DIS Inpatient MULU HERNANDEZ DO [facility] WS REPEAT [id number] 07/29/2013 14:23:00 07/29/2013 23:59:59 CLS Outpatient MARY MULU [facility] PREOP PREVIOUS [id number] 11/29/2012 07:22:00 11/30/2012 11:10:00 DIS Outpatient [id number] 11/22/2012 07:49:00 11/22/2012 23:59:59 CLS Outpatient [id number] 07/18/2018 06:56:00 ACT Outpatient JAY URBINA DO [facility] ENDO ASTHMA/DYSPNEA/ABNORMAL CT SCAN OF LUNG [id number] 07/13/2018 12:32:00 Document Registration [id number] 05/02/2012 08:38:00 Document Registration [id number] 07/03/2009 06:00:00 Document Registration [id number] 08/09/2016 09:16:00 Document Registration [id number] 11/10/2016 15:10:00 Document Registration [id number] 12/26/2016 17:07:00 Document Registration [id number] 06/22/2018 16:40:00 06/22/2018 23:59:59 CLS Outpatient SAGAR NAVA MD [facility] [id number] 04/12/2018 08:00:00 Document Registration [id number] 12/29/2017 09:00:00 Document Registration [id number] 09/08/2017 13:00:00 Document Registration [id number] 08/23/2017 08:00:00 Document Registration [id number] 05/12/2017 09:20:00 Document Registration [id number] 05/23/2014 10:19:14 ACT Document Registration
--- NOTE | 2018-07-18 09:07 | Pulmonary Procedures ---
Pulmonary Procedures Date of Procedure Date of Service: Jul 18, 2018 Bronch Bronchoscopy with LLL bronchoalveolar lavage (BAL), left lung bronchial washes and, transbronchial LLL brush. Preop DX persistent pneumonia Postop DX: Copious amounts of thick white sputum. ( pics taken) Complications: Hypoxia prior to intubation per anesthesia After informed consent obtained and formal time out pt was sedated per anesthesia. Bronchoscope was advanced through the oral cavity. During bronchoscopy patient became hypoxic dropping in the 70'S Sp02. Anesthesia intubated patient and her Sp02 increased into 90's. 1% lidocaine was used to anesthetize vocal cords, epiglottis, gabby, and left/right main stem bronchus. Bronchoscope was then advanced through ET tube. An anatomical tour was undertaken down to the segmental bronchi bilaterally. No endobronchial lesions noted. Copious amounts of thick white sputum was noted bilaterally. Multiple saline lavages were used to clear out white mucous. Even at the end of procedure pt continued to have thick white mucous oozing from especially LLL bronchials. LLL bronchoalveolar lavage (BAL), left lung bronchial washes and, transbronchial LLL brush were obtained and sent to lab. I also discussed with pathology regarding differential diagnosis including but not limited to Alveolar Proteinosis. All available testing will be done for infection bacterial /fungal, BAL cell count diff, and work up for PAP. Pt tolerated procedure well. No complications noted. Stat CXR is pending. SOFIA URBINA DO Jul 18, 2018 09:07
--- NOTE | 2018-07-18 09:14 | Diagnostic Imaging Report ---
INDICATION: Post bronchoscopy. COMPARISON: 11/22/2012. FINDINGS: Single view of the chest demonstrates minimal basilar and hilar atelectasis likely from a supine technique. There is no post procedure pneumothorax or effusion. No pulmonary contusion identified. The heart is slightly enlarged. IMPRESSION: No post procedure pneumothorax, effusion or pulmonary contusion. Dictated by: Dictated on workstation # [id number]
--- NOTE | 2018-07-18 09:16 | Diagnostic Imaging Report ---
INDICATION: Fluoroscopy for bronchoscopy. Fluoroscopy was provided during bronchoscopy. 10 seconds of fluoroscopy was utilized. IMPRESSION: Fluoroscopy for bronchoscopy by Dr. Pagan. Dictated by: Dictated on workstation # [id number]
[2018-07-18 09:35] VITALS: BP 127/79
[2018-07-18 10:15] VITALS: BP 129/89
[2018-07-18 10:25] VITALS: BP 129/89
--- NOTE | 2018-07-18 11:58 | Anesthesia-General Post-Op ---
General Patient Condition Mental Status/LOC: Same as Preop Cardiovascular: Satisfactory Nausea/Vomiting: Absent Respiratory: Satisfactory Pain: Controlled Complications: Absent Post Op Complications Complications None Follow Up Care/Instructions Patient Instructions None needed. Anesthesia/Patient Condition Patient Condition Patient seen after the procedure by James Valencia CRNA and she was doing well, no complaints, stable vital signs, no apparent adverse anesthesia problems. REESE CHAKRABORTY DO Jul 18, 2018 11:58
[2018-07-18 13:01] LABS: BODY FLUID SOURCE OTHER
[2018-07-18 13:01] LABS: BF OTHER CELLS 1 %; BODY FLUID APPEARENCE MKD CLDY; BODY FLUID COLOR COLORLESS; BODY FLUID SOURCE OTHER; LYMPHOCYTES,BODY FLUID 10 %
[2018-07-18 13:02] LABS: BF OTHER CELLS 1 %; BODY FLUID APPEARENCE MKD CLDY; BODY FLUID COLOR COLORLESS; LYMPHOCYTES,BODY FLUID 5 %
== END 2018-07-18 10:25 | disposition home or self-care (01) ==
LOC: ENDO 06:56
PROVIDERS: ATTEND Internal Medicine Critical Care Medicine
DX: J18.9 Pneumonia, unspecified organism (principal); R09.02 Hypoxemia; G25.81 Restless legs syndrome; J45.909 Unspecified asthma, uncomplicated; Z79.84 Long term (current) use of oral hypoglycemic drugs; Z79.899 Other long term (current) drug therapy; F32.9 Major depressive disorder, single episode, unspecified; F90.9 Attention-deficit hyperactivity disorder, unspecified type; K21.9 Gastro-esophageal reflux disease without esophagitis; E66.01 Morbid (severe) obesity due to excess calories; Z68.37 Body mass index [BMI] 37.0-37.9, adult
CPT/HCPCS: 36415; 71045; 84703; 87015; 87070; 87077; 87101; 87116; 87185; 87205; 87206; 89051

== ENCOUNTER 2018-08-10 10:36 | Outpatient (RCR) | payer OTHER ==
[2018-06-15] MEDS: BENRALIZUMAB 30 MG/ML (FASENRA) SYRINGE SQ SCH (11:29)
[2018-06-15 12:00] VITALS: BP 164/104
[2018-07-13 11:05] VITALS: BP 145/96
[2018-07-13] MEDS: BENRALIZUMAB 30 MG/ML (FASENRA) SYRINGE SQ SCH (11:10)
[~2018-08-10] VITALS: Ht 170.2 cm; Wt 107.0 kg
[~2018-08-10 10:36] MED LIST changes: +MIDAZOLAM 2 MG/2 ML (VERSED) VIAL ONE; +PROPOFOL INJECTION 50 ML IV ONE; +SUCCINYLCHOLINE INJ 100 MG/5 ML SYR ONE; +fentaNYL INJECTION 100 MCG/2 ML AMP ONE; +proPOfol 200 MG/20 ML (DIPRIVAN) VIAL IV ONE
[2018-08-10] MEDS: BENRALIZUMAB 30 MG/ML (FASENRA) SYRINGE SQ SCH (11:20)
[2018-08-10 11:25] VITALS: BP 138/93
== END 2018-09-13 | disposition home or self-care (01) ==
LOC: SDC 10:36
PROVIDERS: ATTEND Allergy & Immunology Clinical & Laboratory Immunology
DX: J45.51 Severe persistent asthma with (acute) exacerbation (principal)
CPT/HCPCS: 96372

== ENCOUNTER → 2018-09-03 | Outpatient (CLI) | payer OTHER ==
[~2018-09-03] MED LIST changes: -MIDAZOLAM 2 MG/2 ML (VERSED) VIAL ONE; -PROPOFOL INJECTION 50 ML IV ONE; -SUCCINYLCHOLINE INJ 100 MG/5 ML SYR ONE; -fentaNYL INJECTION 100 MCG/2 ML AMP ONE; -proPOfol 200 MG/20 ML (DIPRIVAN) VIAL IV ONE
[2018-09-03 12:36] LABS: BASOPHILS % (AUTO) 0 % (0-10); EOSINOPHILS % (AUTO) 0 % (0-10); HEMATOCRIT 39 % (35-52); HEMOGLOBIN 11.9 G/DL (11.5-16.0); LYMPHOCYTES # (AUTO) 1.3 X 10^3 (1.0-4.0); LYMPHOCYTES % (AUTO) 13 % (12-44); MEAN CORPUSCULAR HEMOGLOBIN 24 PG (25-34); MEAN CORPUSCULAR HGB CONC 31 G/DL (32-36); MEAN CORPUSCULAR VOLUME 77 FL (80-99); MEAN PLATELET VOLUME 9.9 FL (7.4-10.4); MONOCYTES # (AUTO) 0.3 X 10^3 (0.0-1.0); MONOCYTES % (AUTO) 3 % (0-12); NEUTROPHILS # (AUTO) 8.6 X 10^3 (1.8-7.8); NEUTROPHILS % (AUTO) 84 % (42-75); PLATELET COUNT 391 10^3/uL (130-400); RED CELL DISTRIBUTION WIDTH 17.3 % (10.0-14.5); WHITE BLOOD COUNT 10.3 10^3/uL (4.3-11.0)
[2018-09-03 12:55] LABS: ALANINE AMINOTRANSFERASE 13 U/L (0-55); ALBUMIN 4.3 GM/DL (3.2-4.5); ALKALINE PHOSPHATASE 58 U/L (40-136); BILIRUBIN,TOTAL 0.2 MG/DL (0.1-1.0); BUN/CREATININE RATIO 23; CALCIUM 10.2 MG/DL (8.5-10.1); CARBON DIOXIDE 20 MMOL/L (21-32); CHLORIDE 109 MMOL/L (98-107); CREATININE SERUM 0.75 MG/DL (0.60-1.30); GFR ESTIMATED > 60; GLUCOSE 102 MG/DL (70-105); POTASSIUM 4.4 MMOL/L (3.6-5.0); SODIUM 137 MMOL/L (135-145); TOTAL PROTEIN 7.4 GM/DL (6.4-8.2)
--- NOTE | 2018-09-03 14:13 | Diagnostic Imaging Report ---
INDICATION: Cough. PA and lateral views were obtained Comparison made with prior examination from 07/18/2018. FINDINGS: The heart size, mediastinal configuration, and pulmonary vascularity are within normal limits. There is no pleural effusion, pneumothorax, or pneumonia. The osseous structures are unremarkable. IMPRESSION: No acute cardiopulmonary abnormality. Dictated by: Dictated on workstation # [id number]
== END ==
LOC: RAD 12:24
PROVIDERS: ATTEND Internal Medicine Critical Care Medicine
DX: J45.909 Unspecified asthma, uncomplicated (principal)
CPT/HCPCS: 36415; 71046; 80053; 85025

== ENCOUNTER → 2018-09-19 | Outpatient (CLI) | payer OTHER ==
[2018-09-19 08:44] LABS: BASOPHILS % (AUTO) 0 % (0-10); EOSINOPHILS % (AUTO) 0 % (0-10); HEMATOCRIT 36 % (35-52); LYMPHOCYTES # (AUTO) 2.3 X 10^3 (1.0-4.0); LYMPHOCYTES % (AUTO) 25 % (12-44); MEAN CORPUSCULAR HEMOGLOBIN 23 PG (25-34); MEAN CORPUSCULAR HGB CONC 31 G/DL (32-36); MEAN CORPUSCULAR VOLUME 77 FL (80-99); MEAN PLATELET VOLUME 9.9 FL (7.4-10.4); MONOCYTES # (AUTO) 0.4 X 10^3 (0.0-1.0); MONOCYTES % (AUTO) 5 % (0-12); NEUTROPHILS # (AUTO) 6.5 X 10^3 (1.8-7.8); NEUTROPHILS % (AUTO) 70 % (42-75); PLATELET COUNT 341 10^3/uL (130-400); RED CELL DISTRIBUTION WIDTH 18.2 % (10.0-14.5); WHITE BLOOD COUNT 9.2 10^3/uL (4.3-11.0)
[2018-09-19 09:06] LABS: ALANINE AMINOTRANSFERASE 13 U/L (0-55); ALBUMIN 3.7 GM/DL (3.2-4.5); ALKALINE PHOSPHATASE 50 U/L (40-136); BILIRUBIN,TOTAL 0.4 MG/DL (0.1-1.0); BUN/CREATININE RATIO 17; CALCIUM 9.1 MG/DL (8.5-10.1); CARBON DIOXIDE 22 MMOL/L (21-32); CHLORIDE 108 MMOL/L (98-107); CREATININE SERUM 0.72 MG/DL (0.60-1.30); GFR ESTIMATED > 60; GLUCOSE 78 MG/DL (70-105); POTASSIUM 3.9 MMOL/L (3.6-5.0); SODIUM 140 MMOL/L (135-145); TOTAL PROTEIN 6.4 GM/DL (6.4-8.2)
--- NOTE | 2018-09-19 12:09 | Diagnostic Imaging Report ---
INDICATION: Asthma. COMPARISON: 09/03/2018. FINDINGS: Frontal and lateral views of the chest demonstrate clear lungs bilaterally. The heart is normal. There is no pneumothorax. Osseous structures are normal. IMPRESSION: Negative chest. Dictated by: Dictated on workstation # [id number]
== END ==
LOC: RAD 08:29
PROVIDERS: ATTEND Internal Medicine Critical Care Medicine
DX: J45.909 Unspecified asthma, uncomplicated (principal)
CPT/HCPCS: 36415; 71046; 80053; 85025

== ENCOUNTER → 2018-09-24 | Outpatient (CLI) | payer OTHER ==
--- NOTE | 2018-09-24 12:13 | Diagnostic Imaging Report ---
INDICATION: Abnormal CT of the chest. Dyspnea. Cough. COMPARISON: 09/19/2018. FINDINGS: Frontal and lateral radiographic view of the chest obtained show patchy alveolar opacities in both lung bases, left greater than right. Small left effusion is also suspected. No large effusion seen on the right. There is no pneumothorax on either side. Cardiac silhouette and pulmonary vasculature within normal limits. Bony structures show old anterior right second rib fracture. IMPRESSION: 1. Bibasilar pneumonia type opacities with probable small left basilar effusion. Followup to resolution is recommended. Dictated by: Dictated on workstation # [id number]
== END ==
LOC: RAD 11:38
PROVIDERS: ATTEND Internal Medicine Critical Care Medicine
DX: G47.9 Sleep disorder, unspecified (principal); R91.8 Other nonspecific abnormal finding of lung field; R09.3 Abnormal sputum; R09.02 Hypoxemia
CPT/HCPCS: 71046

== ENCOUNTER → 2018-11-02 | Outpatient (CLI) | payer OTHER ==
--- NOTE | 2018-11-02 12:48 | Diagnostic Imaging Report ---
PROCEDURE: CT chest without contrast. TECHNIQUE: Multiple contiguous axial images were obtained through the chest without the use of intravenous contrast. Auto Exposure Controls were utilized during the CT exam to meet ALARA standards for radiation dose reduction. INDICATION: Dyspnea. FINDINGS: The CTA chest exam performed on 06/15/2018 failed to show any sign of an acute or chronic pulmonary embolus. The right lower lobe pulmonary emboli noted on the prior exam of 05/17/2018 had resolved. The previous study did show residual atelectasis/infiltrate in the right lung base as well as groundglass densities in both lower lobes and centrilobular nodularity. Those findings are again evident on this study and do not seem to have changed significantly. Consequently, they may well be chronic in nature. There is no new area of increased density to suggest pneumonia/atelectasis and there is no sign of a pleural effusion. The heart is stable in size. There are no coronary artery calcifications evident. The prior exam did note a prevascular lymph node measuring 2.0 x 0.6 cm. That node now measures 1.8 x 0.6 cm. No other mediastinal or hilar adenopathy is noted, although this exam is limited in the evaluation of adenopathy due to the absence of intravenous contrast. The hiatal hernia seen previously is again evident and no different. The hernia measures approximately 5.4 x 7.1 cm. The thyroid gland is not enlarged. There is no obvious breast mass. The sections through the upper abdomen fail to show any sign of an acute abnormality. The bone windows are unremarkable for fracture or for destructive lesion. IMPRESSION: 1. The residual atelectasis/infiltrate involving the right lung base, the groundglass densities in both lower lobes, and the centrilobar micronodules seen previously are again evident and do not seem to have changed significantly. There is no sign of an acute cardiopulmonary abnormality. 2. The lymph node in the prevascular space seen on the prior study also appears stable. No obvious mediastinal or hilar adenopathy has developed, otherwise. 3. The hiatal hernia seen on the previous study is again evident and no different. 4. These results were discussed with Dr. Jay Pagan. Dictated by: Dictated on workstation # [id number]
== END ==
LOC: RAD 08:56
PROVIDERS: ATTEND Internal Medicine Critical Care Medicine
DX: J45.909 Unspecified asthma, uncomplicated (principal); J98.4 Other disorders of lung; R91.8 Other nonspecific abnormal finding of lung field; K44.9 Diaphragmatic hernia without obstruction or gangrene; K21.9 Gastro-esophageal reflux disease without esophagitis; I26.99 Other pulmonary embolism without acute cor pulmonale; G47.9 Sleep disorder, unspecified; J84.01 Alveolar proteinosis
CPT/HCPCS: 71250

== ENCOUNTER → 2019-12-20 | Outpatient (CLI) | payer OTHER ==
[~2019-12-20] MED LIST changes: -MONT10TA24 PO; +MONT10TA26 PO; +RT-ALBUTEROL SULF 2.5 MG/3 ML PRE-MIX VIAL INH ONE
== END ==
LOC: RT 12:47
PROVIDERS: ATTEND Nurse Practitioner Family
DX: J45.909 Unspecified asthma, uncomplicated (principal); J84.01 Alveolar proteinosis; G47.33 Obstructive sleep apnea (adult) (pediatric)
CPT/HCPCS: 94060; 94726; 94729

== ENCOUNTER → 2020-10-21 | Outpatient (CLI) | payer OTHER ==
[~2020-10-21] MED LIST changes: -MONT10TA26 PO; +MONT10TA32 PO; -PANT40TA3 PO; +PANT40TA52 PO; -RT-ALBUTEROL SULF 2.5 MG/3 ML PRE-MIX VIAL INH ONE; +SERT-413 PO; -SERT50TA9 PO
--- NOTE | 2020-10-21 17:06 | Diagnostic Imaging Report ---
PROCEDURE: CT angiography of the chest with contrast. TECHNIQUE: Multiple contiguous axial images were obtained through the chest after uneventful bolus administration of intravenous contrast. 3D reconstructed CTA MIP acquisitions were also performed. Auto Exposure Controls were utilized during the CT exam to meet ALARA standards for radiation dose reduction. DATE: October 21, 2020. COMPARISON: CT chest October 03, 2018. INDICATION: 45-year-old female, shortness of breath. History of pulmonary embolus. FINDINGS: There is extensive tree-in-bud nodularity in the right middle lobe, right lower lobe, left lower lobe and additional tree-in-bud nodularity also present in the right upper lobe and left upper lobe. There is mild right middle lobe bronchiectasis. There is also mild right lower lobe and left lower lobe bronchiectasis and lingular bronchiectasis. There are areas of opacification within the bronchi. There is no identified lung mass. There is no pneumothorax. No pleural effusion. The more central airways are patent. There is very limited evaluation for pulmonary embolus given timing of the contrast bolus. There is no identified large central pulmonary embolus. There is essentially nondiagnostic evaluation for segmental and subsegmental pulmonary emboli. The main pulmonary artery diameter measures within normal limits at 2.5 cm. The heart is not enlarged. There is no pericardial effusion. The thoracic aorta is normal in caliber. There is no identified abnormally enlarged mediastinal, hilar or axillary lymph node meeting CT size criteria for adenopathy. There is a low-attenuation left thyroid nodule measuring 12 mm in size on axial image 14. There is a moderate-sized hiatal hernia. Evaluation for wall thickening at the level of the hernia is a limited. Additional evaluation of the imaged portions of the upper abdomen is unremarkable. There is no identified acute bony abnormality. IMPRESSION: CT chest: 1. Multifocal tree-in-bud nodularity in the lungs with mid and lower lung zone predominance, which is new since November 02, 2018. This likely relates to a process spreading via endobronchial means which is most typically an infectious bronchiolitis or aspiration. Atypical infectious etiologies such as mycobacterium avium intracellulare are in the differential diagnosis and perhaps favored. 2. Mild right middle lobe, lingular, right lower lobe and left lower lobe bronchiectasis with nonspecific opacification within some of the dilated bronchi. 3. Moderate-sized hiatal hernia. Limited evaluation for wall thickening at the level of the hernia. 4. 12 mm left lower nodule. 5. Very limited evaluation for pulmonary embolus with essentially nondiagnostic evaluation for segmental and subsegmental pulmonary emboli. The main pulmonary artery diameter is within normal limits. Dictated by: Dictated on workstation # [id number]
== END ==
LOC: RAD 16:00
PROVIDERS: ATTEND Family Medicine
DX: I26.99 Other pulmonary embolism without acute cor pulmonale (principal); J47.9 Bronchiectasis, uncomplicated; R91.8 Other nonspecific abnormal finding of lung field; K44.9 Diaphragmatic hernia without obstruction or gangrene; R79.89 Other specified abnormal findings of blood chemistry
CPT/HCPCS: 71275

== ENCOUNTER → 2021-09-03 | Outpatient (CLI) | payer OTHER ==
[~2021-09-03] MED LIST changes: +MOME17SP4 NSEACH; +MONT-40 PO; -MONT10TA32 PO
== END ==
LOC: CARD 08:30
PROVIDERS: ATTEND Family Medicine
DX: I51.7 Cardiomegaly (principal); R60.9 Edema, unspecified
CPT/HCPCS: 93306

== ENCOUNTER → 2023-05-22 | Outpatient (CLI) | payer OTHER ==
[~2023-05-22] MED LIST changes: +GADOTERATE 0.5 MMOL/ML (CLARISCAN) 20 ML VIAL IV ONE; +MONT-47 PO; -MONT10TA21 PO
--- NOTE | 2023-05-22 14:45 | Diagnostic Imaging Report ---
PROCEDURE: MR imaging of the brain with and without contrast. TECHNIQUE: Multiplanar, multisequence MR imaging of the brain was performed with and without contrast. INDICATION: Disequilibrium. Lower extremity weakness. COMPARISON: None. FINDINGS: No abnormal intracranial signal or enhancement. No restricted water diffusion. No hemosiderin deposition or evidence of intracranial hemorrhage. Normal morphology including the major midline structures, sella, posterior fossa and cerebellar pontine angle. Normal intracranial flow voids. No hydrocephalus or extra-axial fluid collections. The orbits are unremarkable. Mucosal thickening and air-fluid levels in the maxillary and ethmoid sinuses. Mastoids are clear. Normal bone marrow signal. IMPRESSION: 1. Normal MRI of the brain without and with IV contrast. No acute findings. 2. Paranasal sinus disease as above. Dictated by: Dictated on workstation # [id number]
== END ==
LOC: RAD 13:25
PROVIDERS: ATTEND Family Medicine
DX: J32.9 Chronic sinusitis, unspecified (principal)
CPT/HCPCS: 70553